=== PATIENT | female | born 1970 | race Caucasian/White ===

== ENCOUNTER 2022-01-26 10:15 | Outpatient (CLI) | payer OTHER, SELFPAY ==
[2022-01-26 11:27] LABS: Absolute Lymphocyte Count 1.04 X10^3/uL (0.83-4.51); Absolute Neutrophil Count 1.4 X10^3/uL (2.0-7.7); Basophil# 0.01 X10^3/uL; Basophil% 0.4 % (0-1); Eosinophil# 0.03 X10^3/uL; Eosinophils% 1.1 % (0-5); Hemoglobin 10.4 g/dL (12.0-15.0); Lymphocyte # 1.04 X10^3/ul (0.83-4.51); Lymphocyte % 38.4 % (19-41); Mean Corp Hgb Conc 33.5 g/dL (32-36); Mean Corpuscular Hgb 32.1 pg (27.0-32.0); Mean Corpuscular Volume 95.7 fL (81-99); Mean Platelet Vol. 11.7 fl (6.2-12.0); Monocyte# 0.18 X10^3/uL; Monocyte% 6.6 % (0-10); NRBC Flagged by Analyzer 0 % (0-5); Neutrophil # 1.44 X10^3/uL (2.7-7.7); Neutrophil % 53.1 % (47-70); POSITIVE COUNT YES; Platelet Count 54 K/mm3 (150-450); RBC Distribution Width CV 14.6 % (11.6-14.6); RBC Distribution Width SD 51.3 fl (35.1-43.9); Red Blood Count 3.24 M/mm3 (4.2-5.4); White Blood Count 2.7 K/mm3 (4.4-11.0)
[2022-01-26 11:47] LABS: Differential Indicated SCAN CRITERIA MET
[2022-01-26 11:57] LABS: ALB/GLOB Ratio 0.8 RATIO (0.9-2.4); AST(SGOT) 40 U/L (15-37); Alanine Aminotransfer ALT/SGPT 29 U/L (13-56); Albumin, Serum 3.5 g/dL (3.2-5.0); Alkaline Phosphatase 65 U/L (45-117); Anion Gap 5 (5-15); BUN 11 mg/dL (7-18); BUN/Creat Ratio 18.4 RATIO (10-20); CRP 5.48 mg/L (0.0-3.0); Calcium,Total 9.9 mg/dL (8.5-10.1); Chloride 111 mmol/L (98-107); EST Glomerular Filtration Rate 112 mL/min (>60); Est Glom Filt Rate - Afr Amer 136 mL/min (>60); Ferritin 197 ng/mL (8-252); Globulin 4.2 g/dL (2.2-4.2); Glucose 100 mg/dL (74-106); LDH 143 U/L (84-246); Platelet Estimate MOD DEC (ADEQ); Protein, Total 7.7 g/dL (6.4-8.2); Sodium Level 140 mmol/L (136-145)
[2022-01-26 12:23] LABS: HIV - WCH Non-Reactive (Nonreactive)
[2022-01-27 15:08] LABS: Anti-Centromere B Ab <0.2 AI (0.0-0.9); Anti-Chromatin <0.2 AI (0.0-0.9); Anti-Jo <0.2 AI (0.0-0.9); Anti-Scleroderma-70 AB <0.2 AI (0.0-0.9); RNP Ab <0.2 AI (0.0-0.9); SJOGREN'S Anti-SS-A test < 0.2 AI (0.0-0.9); SJOGREN'S Anti-SS-B test < 0.2 AI (0.0-0.9); Smith Ab <0.2 AI (0.0-0.9)
[2022-01-28 17:21] LABS: Anti-Mitochondrial AB <20.0 Units (0.0-20.0); Anti-dsDNA Ab 2 IU/mL (0-9)
[2022-01-30 08:10] LABS: Angiotensin Convert Enzyme 76 U/L (14-82); Ceruloplasmin 22.9 mg/dL (19.0-39.0); Cytoplasmic Ab (C-ANCA) 1:20 titer (Neg:<1:20); HEPATITIS B SURFACE AG Negative (Negative); Hepatitis A IgM Antibody Negative (Negative); Hepatitis B Core AB IgM Negative (Negative)
[2022-01-30 13:17] LABS: AFP, Tumor Marker 2.7 ng/mL (0.0-9.2); Anti-Smooth Muscle ABS 10 Units (0-19); Copper, Serum or Plasma 113 ug/dL (80-158); Haptoglobin 30 mg/dL (33-346); Hep C Antibodies 0.1 s/co ratio (0.0-0.9); Perinuclear Ab (P-ANCA) <1:20 titer (Neg:<1:20)
== END 2022-01-26 23:59 | disposition home or self-care (01) ==
LOC: LAB 10:24
PROVIDERS: Referring Provider Internal Medicine Gastroenterology; Visit Provider Internal Medicine Gastroenterology
DX: K76.0 Fatty (change of) liver, not elsewhere classified (principal)
CPT/HCPCS: 36415; 80053; 80074; 82105; 82140; 82164; 82390; 82525; 82728; 83010; 83036; 83516; 83615; 85025; 86140; 86225; 86235; 86256; 86703

== ENCOUNTER → 2022-03-05 | Outpatient (CLI) | payer OTHER, SELFPAY ==
[2022-03-05] VITALS (15 sets, daily range): BP systolic 97–155; BP diastolic 69–104; PULSE 73–106; RESP 12–22; TEMP 36.7; O2SAT 94–99; BMI 19.9
--- NOTE | 2022-03-05 08:12 | CT_ITS ---
PROCEDURE: CT-guided percutaneous liver biopsy. CLINICAL HISTORY: Female, 52 years old. cirrhosis SEDATION: VERSED: 2 mg and FENTANYL 100 mcg intravenous. 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 COMPLICATIONS: None PT-PTT Levels Checked: Yes TECHNIQUE: The procedure, risks, alternatives and complications were explained to the patient and written informed consent was obtained. Patient oriented dose modulation technique utilized. Patient was positioned supine on the CT table. A timeout procedure was obtained. Contiguous axial CT scanner images of the liver were obtained biopsy of the right lobe of the liver was decided after which the access tract was identified. Access site was marked on the patient''s skin after which the overlying skin was prepared in standard, sterile fashion. The skin was anesthetized with 2% lidocaine and a small skin incision was made. Under CT fluoroscopic guidance a 17-gauge coaxial introducer needle was intermittently advanced into the right lobe of the liver. An 18 gauge coaxial core biopsy needle was then inserted through the needle and three core biopsy specimens were obtained, placed in formalin and sent to the lab for analysis. Gelfoam embolization of the biopsy site and access tract was performed after which the access needle was removed and sterile dressing was applied. Follow-up evaluation demonstrates no evidence of complications. The patient tolerated the procedure well with no immediate complications and was transferred to recovery in stable condition. CT/Biopsy/Inj or Needle Placement IMPRESSION: Technically successful percutaneous CT guided liver biopsy, [id number] core biopsy specimens obtained and sent to lab for analysis. Electronically Signed: Andres Sandy MD at 12:13 EDT ,
[2022-03-05 08:17] LABS: Absolute Lymphocyte Count 0.92 X10^3/uL (0.83-4.51); Absolute Neutrophil Count 1.5 X10^3/uL (2.0-7.7); Basophil# 0.01 X10^3/uL; Basophil% 0.4 % (0-1); Eosinophil# 0.04 X10^3/uL; Eosinophils% 1.5 % (0-5); Hematocrit 32.8 % (37-47); Hemoglobin 11.3 g/dL (12.0-15.0); Lymphocyte # 0.92 X10^3/ul (0.83-4.51); Lymphocyte % 35.2 % (19-41); Mean Corp Hgb Conc 34.5 g/dL (32-36); Mean Corpuscular Hgb 31.7 pg (27.0-32.0); Mean Corpuscular Volume 92.1 fL (81-99); Mean Platelet Vol. 12.3 fl (6.2-12.0); Monocyte# 0.14 X10^3/uL; Monocyte% 5.4 % (0-10); NRBC Flagged by Analyzer 0 % (0-5); Neutrophil # 1.48 X10^3/uL (2.7-7.7); Neutrophil % 56.7 % (47-70); POSITIVE COUNT YES; Platelet Count 59 K/mm3 (150-450); RBC Distribution Width CV 14.6 % (11.6-14.6); RBC Distribution Width SD 49.3 fl (35.1-43.9); Red Blood Count 3.56 M/mm3 (4.2-5.4); White Blood Count 2.6 K/mm3 (4.4-11.0)
[2022-03-05 08:21] LABS: Differential Indicated SCAN CRITERIA MET
[2022-03-05 08:22] LABS: International Normalized Ratio 1.3; Prothrombin Time (Protime)PT. 16.2 SECONDS (11.7-14.9)
[2022-03-05 08:23] LABS: Partial Thromboplast Time 38.7 Seconds (24.1-36.2)
[2022-03-05 08:37] LABS: ALB/GLOB Ratio 0.8 RATIO (0.9-2.4); AST(SGOT) 45 U/L (15-37); Alanine Aminotransfer ALT/SGPT 36 U/L (13-56); Albumin, Serum 3.6 g/dL (3.2-5.0); Alkaline Phosphatase 85 U/L (45-117); Anion Gap 5 (5-15); BUN 11 mg/dL (7-18); BUN/Creat Ratio 18.1 RATIO (10-20); Calcium,Total 9.6 mg/dL (8.5-10.1); Chloride 111 mmol/L (98-107); Creatinine, Serum 0.61 mg/dL (0.55-1.02); EST Glomerular Filtration Rate 110 mL/min (>60); Est Glom Filt Rate - Afr Amer 133 mL/min (>60); Globulin 4.8 g/dL (2.2-4.2); Glucose 90 mg/dL (74-106); Potassium 4.1 mmol/L (3.5-5.1); Protein, Total 8.4 g/dL (6.4-8.2); Sodium Level 139 mmol/L (136-145)
[2022-03-05 08:44] LABS: Platelet Estimate MKD DEC (ADEQ)
[2022-03-05] MEDS: fentaNYL 100 MCG/2 ML Ampul IV ×2 (09:15→09:30)
[2022-03-05] MEDS: Midazolam 2 MG/2 ML Syringe IV ×2 (09:15→09:30)
[2022-03-05] MEDS: Lidocaine 2% (20 ml mdv) 20 ML Vial INFILT (09:33)
--- NOTE | 2022-03-05 09:35 | LIV_PTH ---
PATIENT: DOMINIC JIMENEZ LOC: [place] U#:[id number] AGE/SX: 52/F ROOM: RE03/05/[address]: Dr. Leodan Sarabia DO : 1970 BED: DIS: 03/05/2022 SPEC #: [id number] RECD: 03/05/22 10:17 STATUS: JESIKA REKee #: [id number] ORACIO: 03/05/22 09:[address]: Leodan Sarabia DEPT: SURGICAL PATHOLOGY RECD BY: Manju Braxton Tissues: Liver, NOS Procedures: PAS with Diastase (control) Trichrome (control) Special Stain Group II PAS Stain (control) Surgery Specimen Level V Retic (control) Iron Stain (control) HEADER OPERATION: CT-guided liver biopsy PRE-OP DIAGNOSIS: Cirrhosis TISSUE SUBMITTED: Liver 18-gauge core x3 MICROSCOPIC DIAGNOSIS Liver, CT-guided core biopsy: Consistent with cirrhosis. See microscopic description. SJ:lucia 03/06/2022 COMMENT Case has been reviewed in consultation with Dr. Gutierres who concurs with the above diagnosis. IDC:AM MICROSCOPIC DESCRIPTION Slides are reviewed. The specimen shows liver parenchymal tissue with distortion of the normal lobular architecture into multiple nodules divided by fibrous septae. Hepatocytes show focal minimal macrovesicular steatosis and reactive changes. Significant inflammation is not seen in hepatocyte nodules. Portal area shows mild to moderate chronic inflammation consisting predominantly of lymphocytes. Vascular dilatation is also noted in the fibrous septae. Interface inflammation is also noted. Iron stain shows focal mild iron deposition in the hepatocytes (1-2+). Trichrome and reticulin stains highlights the fibrous septae in between the hepatocyte nodules. PAS stain with and without diastase do not show any abnormal accumulation of protein. All stains are performed with appropriate matched controls. GROSS DESCRIPTION Received in fixative is one container labeled with the patient's name and designated liver biopsy. The specimen consists of three elongated fragments of ren soft tissue each measuring 2 cm in length and 0.1 cm in diameter. The specimen is totally submitted in one cassette. / SJ:lucia 03/05/2022 TC:5 CPT: 89299, 32689 x5 ADDENDUM ADDENDUM ADDENDUM ADDENDUM ADDENDUM ADDENDUM ADDENDUM ADDENDUM ADDENDUM ADDENDUM 05/09/2022 10:20 ADDENDUM 05/09/2022 10:20 ADDENDUM 05/09/2022 10:20 ADDENDUM 05/09/2022 10:20 ADDENDUM 05/09/2022 10:20 This addendum is added to incorporate an outside pathology consultation report. The case was examined at [facility] (#[id number]) and the following diagnosis was rendered. Liver, CT-guided core biopsy: Cirrhosis. Please see complete above mentioned consultation report in EMR
== END | disposition home or self-care (01) ==
LOC: CT 07:52
PROVIDERS: Referring Provider Internal Medicine Gastroenterology; Visit Provider Internal Medicine Gastroenterology
DX: K74.60 Unspecified cirrhosis of liver (principal); K70.10 Alcoholic hepatitis without ascites
CPT/HCPCS: 47000; 36415; 77012; 80053; 82140; 85025; 85610; 85730; 88307; 88313; 99156; 99157; J7040; A4216

== ENCOUNTER → 2022-03-23 | Outpatient (CLI) | payer OTHER, SELFPAY ==
[2022-03-23 15:37] LABS: Absolute Lymphocyte Count 0.93 X10^3/uL (0.83-4.51); Absolute Neutrophil Count 1.6 X10^3/uL (2.0-7.7); Basophil# 0.01 X10^3/uL; Basophil% 0.4 % (0-1); Eosinophil# 0.03 X10^3/uL; Eosinophils% 1.1 % (0-5); Hematocrit 30.2 % (37-47); Lymphocyte # 0.93 X10^3/ul (0.83-4.51); Lymphocyte % 33.3 % (19-41); Mean Corp Hgb Conc 33.1 g/dL (32-36); Mean Corpuscular Hgb 32.1 pg (27.0-32.0); Mean Corpuscular Volume 96.8 fL (81-99); Mean Platelet Vol. 10.7 fl (6.2-12.0); Monocyte# 0.18 X10^3/uL; Monocyte% 6.5 % (0-10); NRBC Flagged by Analyzer 0 % (0-5); Neutrophil # 1.64 X10^3/uL (2.7-7.7); Neutrophil % 58.7 % (47-70); POSITIVE COUNT YES; Platelet Count 68 K/mm3 (150-450); RBC Distribution Width CV 14.8 % (11.6-14.6); RBC Distribution Width SD 52.6 fl (35.1-43.9); Red Blood Count 3.12 M/mm3 (4.2-5.4); White Blood Count 2.8 K/mm3 (4.4-11.0)
[2022-03-23 15:48] LABS: International Normalized Ratio 1.5; Prothrombin Time (Protime)PT. 17.5 SECONDS (11.7-14.9)
[2022-03-23 16:00] LABS: ALB/GLOB Ratio 0.8 RATIO (0.9-2.4); AST(SGOT) 42 U/L (15-37); Alanine Aminotransfer ALT/SGPT 33 U/L (13-56); Albumin, Serum 3.3 g/dL (3.2-5.0); Alkaline Phosphatase 90 U/L (45-117); Anion Gap 6 (5-15); BUN 12 mg/dL (7-18); BUN/Creat Ratio 15.9 RATIO (10-20); CRP 4.69 mg/L (0.0-3.0); Calcium,Total 8.5 mg/dL (8.5-10.1); Chloride 110 mmol/L (98-107); Creatinine, Serum 0.76 mg/dL (0.55-1.02); EST Glomerular Filtration Rate 86 mL/min (>60); Est Glom Filt Rate - Afr Amer 104 mL/min (>60); Globulin 4.1 g/dL (2.2-4.2); Glucose 129 mg/dL (74-106); LDH 148 U/L (84-246); Potassium 4.1 mmol/L (3.5-5.1); Protein, Total 7.4 g/dL (6.4-8.2); Sodium Level 139 mmol/L (136-145)
[2022-03-23 16:34] LABS: Differential Indicated SCAN CRITERIA MET
[2022-03-23 16:41] LABS: Differential Comment SCANNED; Erythrocyte Sedimentation Rate 27 mm/hr (0-30)
== END | disposition home or self-care (01) ==
PROVIDERS: Referring Provider Internal Medicine Gastroenterology; Visit Provider Internal Medicine Gastroenterology
DX: K74.60 Unspecified cirrhosis of liver (principal); E51.2 Wernicke's encephalopathy; K70.10 Alcoholic hepatitis without ascites
CPT/HCPCS: 36415; 80053; 82140; 83615; 85025; 85610; 85652; 86140

== ENCOUNTER 2022-04-05 06:20 | Day surgery (SDC) | payer OTHER, SELFPAY ==
--- NOTE | 2022-04-05 | EGD_PTH ---
PATIENT: DOMINIC JIMENEZ LOC: [place] U#:[id number] AGE/SX: 52/F ROOM: RE04/05/[address]: Dr. Leodan Sarabia DO : 1970 BED: DIS: 04/05/2022 SPEC #: [id number] RECD: 04/05/22 12:07 STATUS: JESIKA MICHAEL #: [id number] ORACIO: 04/05/22 00:[address]: Leodan Sarabia DEPT: SURGICAL PATHOLOGY RECD BY: Patrice Up Tissues: Duodenum, NOS Procedures: Surgery Specimen Level IV HEADER OPERATION: [place] [place] biopsy PRE-OP DIAGNOSIS: Cirrhosis of liver, Wernicke?s encephalopathy, alcoholic hepatitis TISSUE SUBMITTED: Duodenal ulcer biopsy MICROSCOPIC DIAGNOSIS Duodenal ulcer, biopsy: Chronic active duodenitis. AM:lucia 04/06/2022 MICROSCOPIC DESCRIPTION Slides are reviewed. GROSS DESCRIPTION Received in fixative is one container labeled with the patient's name and designated duodenal biopsy ulcer. The specimen consists of multiple irregular fragments of light ren soft tissue that in aggregate measure 00.5 x 0.5 x 0.1 cm. The specimen is totally submitted in one cassette. / SJ:lucia 04/05/2022 TC:2 CPT: 92138
--- NOTE | 2022-04-05 06:32 | PCM.HP.BLA ---
History and Physical Date of Admission: 04/05/22 BREANNA JIMENEZ, is a 52 F who presents to the office today for Follow up visit. Breanna established with this clinic 01.26.22 with referral from her nursing facility, [facility]. US of her liver abdomen performed with findings as noted below. During the summer of 2020 Breanna began having some motor difficulty most notably with a fall. After this she began having sleep changes and was diagnosed with COVID . She then had a sudden change in cognition where she became irritable, aggressive with severe sleep changes and jaundice. With this cognition change she was then hospitalized with suspected UTI causing sepsis. She had an ultrasound at one point that mentioned fatty liver disease. During hospitalization she became unable to walk. She was treated symptomatically by psychiatric services and was then discharged to a SNF. During this stay her ammonia levels were noted to be in the 50?s or higher and was treated with lactulose. Breanna admits to a history of alcoholism and she has not had another drink in about five months. US abd 12.16.21 finding liver with increased parenchymal echotexture. Ascites in RUQ and midline. Remaining exam without remark. US RUQ and elastography 02.05.22 found liver to measure 19cm with coarse echotexture and increased echogenicity; liver stiffness 17 kPa. Cholelithiasis and sludge present in gallbladder. No ascites noted. Liver biopsy 03.05.22 with findings consistent with cirrhosis with distortion of lobular architecture into multiple nodules divided by fibrous septae; hepatocytes with minimal macrovesicular steatosis and reactive changes; no significant inflammation in hepatocyte nodules; portal area shows mild/moderate chronic inflammation predominantly of lymphocytes; interface inflammation noted. Breanna is scheduled for an EGD 04.05.22. MELD 03.23.22 12 Plan last visit 01.26.22: Fatty liver ? biochemical workup. Likely alcoholic liver disease. Recommend ultrasound and elastography. Alcoholic hepatitis ? biochemical workup Wernickes encephalopathy ? start b12 and folic acid. Since last visit she reports that on rainy days she has more joint pain and has somewhat more difficulty with walking. She has not been able to participate in PT recently and feels that has had a negative effect on her balance. Reports that she has been having some uncontrollable movements in her lower legs, like a twitch; she is seeing neurology next week. Reports easy fatigue. Reports good sleep during the night. She is using trazodone, Cymbalta and melatonin in the evenings. Denies confusion and behavior changes at this time. ROS Const Constitutional: No fatigue, malaise, night sweats, weight change, sleep problems, abnormal sleep pattern or change in appetite ENT ENT: No difficulty swallowing, hoarseness or sore throat Cardio Cardiology: No chest pain at rest Gastro GI: No abdominal pain, belching, bloating, change in bowel habits, change in stool character, coffee ground emesis, constipation, cramping, diarrhea, heartburn, difficulty swallowing, feeling full early, excessive flatus, incontinent of stools, Vomiting blood/hematemesis, Blood in stool, loose stools, Black,tarry stools, nausea/dyspepsia, pain with swallowing, vomiting or other Skin Skin: No yellowing of the eye or itchy eyes Neuro Neurology: No behavioral changes Psych Psychiatric: No abnormal sleep pattern, No anxiety, No behavioral changes, No change in appetite and No depression Endo Endocrine: No fatigue or weight change Aller/Imm Allergy/Immunologic: No itchy eyes Warren/Lymp Hematologic/Lymphatic: No easy bleeding or easy bruising Exam Const General: cooperative and comfortable Nutritional Appearance: average body habitus and well nourished HENID Head: normal to inspection Ears: hearing grossly normal bilaterally Nose: external nose normal Face and sinus: normal facial exam Mouth: oral mucosae normal Throat: posterior oropharynx normal Eyes General: appearance normal, both eyes and all related structures Neck Neck: normal visual inspection Chest Chest palpation & inspection: normal inspection of the chest and normal palpation of entire chest wall Resp Effort & Inspection: normal respiratory effort Auscultation: Bilateral: Clear to Auscultation Cardio Palpation: normal PMI Rate: regular rate Rhythm: regular rhythm GI Inspection: normal to inspection Auscultation: normal bowel sounds Percussion: normal to percussion Palpation: no hepatosplenomegaly Skin General: no rashes or lesions noted Neuro General: patient alert Extrem General: normal to inspection Psych Affect: normal affect Quality Reporting Tobacco Screening ([facility] 138) Smoking Status: Never smoker Assessment and Plan Assessment and Plan (1) Cirrhosis of liver: Status: Acute Orders: Orders: Comprehensive Metabolic Profil 03/23/22 CRP 03/23/22 LDH 03/23/22 Prothrombin Time w/INR 03/23/22 CBC W/Diff, Automated 03/23/22 Erythrocyte Sed Rate 03/23/22 Miscellaneous Lab Procedure 03/23/22 Ammonia 03/23/22 Plan - Dr. Alcocer Friend, DO: At this time her meld is 12. She says that she has been taking up to 2 g of Tylenol per day for her pain that she is experiencing regarding her neuropathy in her extremities. She was started on gabapentin which she has been taking 600 mg twice a day. I instructed her that she cannot take any acetaminophen products because she still has decompensated liver disease. She is going to see the neurologist regarding her pain regarding neuropathy in the near future. Right now since she has been free of alcohol for about 4 months that we have documented I would like to get her stable prior to her being seen by liver transplant center. Her liver biopsy does show cirrhosis but it also shows some interface hepatitis. Her antismooth muscle antibody was negative as well as her AUSTYN. We will order an antiliver kidney microsomal antibody as well as an IgG level. Continue lactulose she has a scheduled upper endoscopy to see if she has any varices or portal hypertension secondary to cirrhosis. At that time we may recommend beta-chris therapy and capsule endoscopy to rule out varices in the small bowel. Continue zinc supplements. Check a copper level and selenium as well as magnesium and phosphorus. (2) Wernickes encephalopathy: Status: Acute Orders: Orders: Comprehensive Metabolic Profil 03/23/22 CRP 03/23/22 LDH 03/23/22 Prothrombin Time w/INR 03/23/22 CBC W/Diff, Automated 03/23/22 Erythrocyte Sed Rate 03/23/22 Miscellaneous Lab Procedure 03/23/22 Ammonia 03/23/22 Plan - Dr. Alcocer Friend, DO: She is seeing neurology. She is taking B12 and folic acid as well as be supplement. (3) Alcoholic hepatitis: Status: Acute Orders: Orders: Comprehensive Metabolic Profil 03/23/22 CRP 03/23/22 LDH 03/23/22 Prothrombin Time w/INR 03/23/22 CBC W/Diff, Automated 03/23/22 Erythrocyte Sed Rate 03/23/22 Miscellaneous Lab Procedure 03/23/22 Ammonia 03/23/22 Plan - Dr. Alcocer Friend, DO: I have re-examined the patient. There are no clinical changes since date of exam.
[2022-04-05 06:40] VITALS: BP 121/72; PULSE 90; RESP 16; TEMP 36.6; O2SAT 100; BMI 20.4
[2022-04-05] MEDS: Lactated Ringers 1,000 ML 15 ML IV (06:43)
[2022-04-05 07:20] VITALS: BP 121/72; BP 135/67; PULSE 87; RESP 16; TEMP 36.6; O2SAT 96
[2022-04-05 07:25] VITALS: BP 108/64; BP 121/72; PULSE 87; RESP 16; O2SAT 93
--- NOTE | 2022-04-05 07:26 | OP.EGD_ITS ---
Patient Name: Breanna Marino Procedure Date: 04/05/2022 6:59 AM Date of : 1970 Age: 52 Procedure: Upper GI endoscopy Indications: Cirrhosis with suspected esophageal varices Providers: Leodan Sarabia DO Medicines: Monitored Anesthesia Care Patient Profile: This is a 52 year old female. Refer to note in patient chart for documentation of history and physical. Patient has symptoms. Complications: No immediate complications. Procedure: Pre-Anesthesia Assessment: - Prior to the procedure, a History and Physical was performed, and patient medications and allergies were reviewed. The risks and benefits of the procedure and the sedation options and risks were discussed with the patient. All questions were answered and informed consent was obtained. Patient identification and proposed procedure were verified by the physician in the pre-procedure area. Mental Status Examination: alert and oriented. Airway Examination: normal oropharyngeal airway and neck mobility. Respiratory Examination: clear to auscultation. CV Examination: normal. Prophylactic Antibiotics: The patient does not require prophylactic antibiotics. Prior Anticoagulants: The patient has taken no previous anticoagulant or antiplatelet agents. ASA Grade Assessment: II - A patient with mild systemic disease. After reviewing the risks and benefits, the patient was deemed in satisfactory condition to undergo the procedure. The anesthesia plan was to use moderate sedation / analgesia (conscious sedation). Immediately prior to administration of medications, the patient was re-assessed for adequacy to receive sedatives. The heart rate, respiratory rate, oxygen saturations, blood pressure, adequacy of pulmonary ventilation, and response to care were monitored throughout the procedure. The physical status of the patient was re-assessed after the procedure. After obtaining informed consent, the endoscope was passed under direct vision. Throughout the procedure, the patient's blood pressure, pulse, and oxygen saturations were monitored continuously. The Endoscope was introduced through the mouth, and advanced to the second part of duodenum. The upper GI endoscopy was accomplished without difficulty. The patient tolerated the procedure well. Scope In: 7:09:44 AM Scope Out: 7:15:08 AM Total Procedure Duration Time 0 hours 5 minutes 24 seconds Findings: Grade I varices were found in the lower third of the esophagus. They were 5 mm in largest diameter. Severe portal hypertensive gastropathy was found in the entire examined stomach. One non-bleeding cratered duodenal ulcer with no stigmata of bleeding was found in the duodenal bulb. The lesion was 4 mm in largest dimension. Biopsies were taken with a cold forceps for histology. Verification of patient identification for the specimen was done. Estimated blood loss was minimal. Impression: - Grade I esophageal varices. - Portal hypertensive gastropathy. - One non-bleeding duodenal ulcer with no stigmata of bleeding. Biopsied. Recommendation: - Discharge patient to home. - Resume previous diet. - Continue present medications. - Use Protonix (pantoprazole) 40 mg PO BID. - Use sucralfate tablets 1 gram PO BID. - Use nadolol 20 mg a day Procedure Code(s): --- Professional --- 55599, Esophagogastroduodenoscopy, flexible, transoral; with biopsy, single or multiple CPT copyright 2017 [employer]. All rights reserved. The codes documented in this report are preliminary and upon client sales and service officer review may be revised to meet current compliance requirements. Leodan Sarabia DO 04/05/2022 7:25:05 AM This report has been signed electronically. Number of Addenda: 1 Note Initiated On: 04/05/2022 6:59 AM Addendum Number: 1 Addendum Date: 08/17/2022 6:17:24 AM MAC was used as sedation for this procedure. Leodan Sarabia DO 08/17/2022 6:17:28 AM This report has been signed electronically.
--- NOTE | 2022-04-05 07:26 | OP.CCLET_ITS ---
08/17/2022 Lady Mahmood Re : Upper GI endoscopy procedure for Breanna Marino Dear Timoteo This procedure was performed on March. My impressions and recommendations are as follows: Impressions : - Grade I esophageal varices. - Portal hypertensive gastropathy. - One non-bleeding duodenal ulcer with no stigmata of bleeding. Biopsied. Recommendations : - Discharge patient to home. - Resume previous diet. - Continue present medications. - Use Protonix (pantoprazole) 40 mg PO BID. - Use sucralfate tablets 1 gram PO BID. - Use nadolol 20 mg a day My findings are described in the full procedure note, which is enclosed. If I can be of further assistance, please feel free to contact me at . Sincerely, Leodan Friend, 04/05/2022 7:25:05 AM This report has been signed electronically.
[2022-04-05 07:30] VITALS: BP 121/72; BP 93/61; PULSE 87; RESP 16; O2SAT 98
[2022-04-05 07:35] VITALS: BP 110/70; BP 121/72; PULSE 85; RESP 16; TEMP 36.8; O2SAT 98
[2022-04-05 07:47] VITALS: BP 121/72
== END 2022-04-05 08:12 | disposition skilled nursing facility (03) ==
LOC: EN 06:22 → AC 06:24
PROVIDERS: Referring Provider Internal Medicine Gastroenterology; Visit Provider Internal Medicine Gastroenterology
PROC: 0DJ08ZZ Inspection of Upper Intestinal Tract, Via Natural or Artificial Opening Endoscopic (ICD-10-PCS; CPT 43235; principal; 2022-04-05 06:55)
DX: K70.30 Alcoholic cirrhosis of liver without ascites (principal); K76.6 Portal hypertension; I85.10 Secondary esophageal varices without bleeding; K29.80 Duodenitis without bleeding; K70.10 Alcoholic hepatitis without ascites; K31.89 Other diseases of stomach and duodenum; K26.9 Duodenal ulcer, unspecified as acute or chronic, without hemorrhage or perforation; E51.2 Wernicke's encephalopathy; Z79.899 Other long term (current) drug therapy; Z86.16 Personal history of COVID-19
CPT/HCPCS: 43239; 88305; J7120; J2405

== ENCOUNTER → 2022-06-04 | Outpatient (CLI) | payer OTHER, SELFPAY ==
[2022-06-04 12:08] LABS: Absolute Lymphocyte Count 1.02 X10^3/uL (0.83-4.51); Absolute Neutrophil Count 1.8 X10^3/uL (2.0-7.7); Basophil# 0.01 X10^3/uL; Basophil% 0.3 % (0-1); Eosinophil# 0.06 X10^3/uL; Eosinophils% 1.9 % (0-5); Hematocrit 33.8 % (37-47); Hemoglobin 10.8 g/dL (12.0-15.0); Lymphocyte # 1.02 X10^3/ul (0.83-4.51); Lymphocyte % 32.5 % (19-41); Mean Corpuscular Hgb 30.3 pg (27.0-32.0); Mean Corpuscular Volume 94.9 fL (81-99); Mean Platelet Vol. 11.9 fl (6.2-12.0); Monocyte# 0.28 X10^3/uL; Monocyte% 8.9 % (0-10); NRBC Flagged by Analyzer 0 % (0-5); Neutrophil # 1.75 X10^3/uL (2.7-7.7); Neutrophil % 55.8 % (47-70); POSITIVE COUNT YES; Platelet Count 59 K/mm3 (150-450); RBC Distribution Width CV 14.3 % (11.6-14.6); RBC Distribution Width SD 49.6 fl (35.1-43.9); Red Blood Count 3.56 M/mm3 (4.2-5.4); White Blood Count 3.1 K/mm3 (4.4-11.0)
[2022-06-04 12:10] LABS: International Normalized Ratio 1.4; Prothrombin Time (Protime)PT. 16.5 SECONDS (11.7-14.9)
[2022-06-04 12:47] LABS: ALB/GLOB Ratio 0.8 RATIO (0.9-2.4); AST(SGOT) 40 U/L (15-37); Alanine Aminotransfer ALT/SGPT 33 U/L (13-56); Albumin, Serum 3.2 g/dL (3.2-5.0); Alkaline Phosphatase 98 U/L (45-117); Anion Gap 6 (5-15); BUN 14 mg/dL (7-18); BUN/Creat Ratio 23.6 RATIO (10-20); Calcium,Total 8.9 mg/dL (8.5-10.1); Chloride 109 mmol/L (98-107); Creatinine, Serum 0.59 mg/dL (0.55-1.02); EST Glomerular Filtration Rate 113 mL/min (>60); Est Glom Filt Rate - Afr Amer 137 mL/min (>60); Globulin 4.2 g/dL (2.2-4.2); Glucose 113 mg/dL (74-106); Potassium 4.1 mmol/L (3.5-5.1); Protein, Total 7.4 g/dL (6.4-8.2); Sodium Level 139 mmol/L (136-145)
== END | disposition home or self-care (01) ==
PROVIDERS: Visit Provider Internal Medicine Gastroenterology
DX: K74.60 Unspecified cirrhosis of liver (principal)
CPT/HCPCS: 36415; 80053; 85025; 85610

== ENCOUNTER 2022-06-17 19:44 | Emergency (ER) | payer OTHER, SELFPAY ==
[2022-06-17 19:45] VITALS: BP 126/87; PULSE 84; RESP 16; TEMP 36.6; O2SAT 97; BMI 22.8
--- NOTE | 2022-06-17 20:10 | EX.ED.DYSGE1 ---
HPI History of Present Illness Chief Complaint: Other, Pain/Inj Informant: patient Onset/Context/Timing Onset: Today Context: Gradual Onset Timing: Continuous Quality: Stabbing Location: Right foot Worsened by: Nothing Relieved by: Nothing Narrative Narrative: Patient presents with bilateral foot pain that began today. Patient states she has neuropathy in her feet. Patient states her right foot is worse. Patient states she did slip in the bathtub the other day and hit her foot against the edge of the tub. Patient describes her pain as stabbing. Patient states nothing makes it better nothing makes it worse. Patient denies any fevers or chills. Patient states she did take a gabapentin at home which normally helps with her pain. Patient states this did not help today. Patient denies any paresthesias or weakness. [facility] Medical History (Updated 06/17/22 @ 21:[address] Gustavo Snyder, ) Abnormal liver function test Alcohol use Alcoholic hepatitis Anemia Anxiety Cardiology follow-up encounter Gastric reflux History of Clostridium difficile infection History of edema History of pain when walking Leg cramps Migraine headache Neuropathy Non-smoker Post-menopausal Splenomegaly Syncope Walker as ambulation aid Wears glasses Wernickes encephalopathy Home Medications gabapentin 300 mg tablet 300 mg PO TID 03/05/22 [History Last Taken 04/05/22 05:00] melatonin 10 mg tablet 10 mg PO QHS 03/05/22 [History Last Taken Unknown] ascorbic acid (vitamin C) 500 mg chewable tablet (Vitamin C) 500 mg PO DAILY 04/04/22 [History Last Taken Unknown] cholecalciferol (vitamin D3) 125 mcg (5,000 unit) tablet (Vitamin D3) 125 mcg PO DAILY 04/04/22 [History Last Taken Unknown] duloxetine 60 mg capsule,delayed release sprinkle 60 mg PO QHS 04/04/22 [History Last Taken Unknown] folic acid 1 mg tablet 1 mg PO DAILY 04/04/22 [History Last Taken Unknown] multivitamin 1 cap PO DAILY 04/04/22 [History Last Taken Unknown] thiamine HCl (vitamin B1) 100 mg tablet (Vitamin B-1) 100 mg PO DAILY 04/04/22 [History Last Taken Unknown] trazodone 50 mg tablet 25 mg PO QHS 04/04/22 [History Last Taken Unknown] pantoprazole 40 mg tablet,delayed release 40 mg PO BID #60 tabs 04/06/22 [Rx Last Taken Unknown] nadolol 20 mg tablet 20 mg PO ONCE #30 tabs 06/04/22 [Rx Last Taken Unknown] lactulose 10 gram/15 mL (15 mL) oral solution 15 ml PO TID #750 mL 06/11/22 [Rx Last Taken Unknown] Allergy/AdvReac Type Severity Reaction Status Date / Time No Known Allergies Allergy Verified 06/04/22 10:46 Surgical History History of liver biopsy History of tonsillectomy and adenoidectomy Social History Smoking Status: Never smoker alcohol intake: former year quit: 2020 substance use type: does not use ROS ROS ED Constitutional Constitutional ED: Denies chills or fever(s) Eyes Eyes: Denies blurry vision or change in vision ENT ENT ED: Denies rhinorrhea or sore throat Cardiovascular Cardiovascular: Denies chest pain or palpitations Respiratory/Chest Respiratory/Chest: Denies cough or dyspnea Gastrointestinal Gastrointestinal: Denies nausea or vomiting Genitourinary Genitourinary ED: Denies dysuria or hematuria Musculoskeletal Musculoskeletal: Denies back pain or neck pain Integumentary Denies abscess or rash Neurologic Neurologic: Reports headache(s); Denies weakness Allergic/Immunologic Allergic/Immunologic ED: Denies mouth swelling or urticaria EXAM Physical Exam Const Vital Signs: 06/17/22 19:45 Temperature 97.8 F Temperature Source Temporal Pulse Rate 84 Respiratory Rate 16 Blood Pressure 126/87 H Blood Pressure Mean 100 Pulse Ox 97 Oxygen Delivery Method Room Air Positive well nourished and well developed General Appearance ED: well developed and NAD HEENT Reports moist mucous membranes Neck supple and no JVD Extremity Extremity Narrative: There is tenderness over the lateral malleolus of the right foot. There is tenderness over the third fourth and fifth metatarsals. There is no edema or ecchymosis. There is no obvious deformity. Pedal pulses are equal bilateral. Sensation was intact to light touch in all digits. Capillary refill was less than 2 seconds in all digits. Range of motion was slightly limited in all motions of the right foot secondary to pain. There is no tenderness over the left foot. There is no deformity. General Extremety ED: Yes tenderness Neuro oriented x3, CN's II-XII intact bilaterally and no sensory deficits noted Sensorium / Orientation: alert Motor Exam: strength 5/5 throughout Psych mental status grossly normal MDM MDM MDM Narrative Medical decision making narrative: Patient was given a dose of morphine here. X-rays of the right foot were obtained. There are 3 views. On my interpretation, there is no acute fracture. There is no dislocation. There is no soft tissue swelling. Radiologist also interpreted the x-rays and agrees. Patient was advised of her findings. Patient was instructed to keep her foot elevated. Patient was instructed to continue her gabapentin as prescribed. Patient was instructed to follow-up with her primary care physician in 5 to 7 days. Patient understood and was agreeable with the plan. All questions were answered. Radiography Diagnostic Testing: Clinical Impression(s) from Imaging Studies Foot X-Ray 06/17/22 20:20 IMPRESSION: Early peripheral vascular atherosclerosis Electronically Signed: Sedrick Arellano DO at 21:18 EDT , Discharge Plan Triage Chief Complaint: Other, Pain/Inj ED Provider: Gustavo Snyder Dx/Rx/DC Orders Clinical Impression: Right foot sprain, Cirrhosis of liver Instructions: ED Foot Sprain Prescriptions: No Action nadolol 20 mg tablet 20 mg PO ONCE Qty: 30 1RF gabapentin 300 mg Tablet 300 mg PO TID melatonin 10 mg Tablet 10 mg PO QHS folic acid 1 mg Tablet 1 mg PO DAILY multivitamin Capsule 1 cap PO DAILY trazodone 50 mg Tablet 25 mg PO QHS thiamine HCl (vitamin B1) [Vitamin B-1] 100 mg Tablet 100 mg PO DAILY ascorbic acid (vitamin C) [Vitamin C] 500 mg Tablet,Chewable 500 mg PO DAILY cholecalciferol (vitamin D3) [Vitamin D3] 125 mcg (5,000 unit) Tablet 125 mcg PO DAILY duloxetine 60 mg Capsule, Delayed Rel Sprinkle 60 mg PO QHS pantoprazole 40 mg tablet,delayed release (DR/EC) 40 mg PO BID Qty: 60 2RF Rx Instructions: take two times a day for eight weeks then once a day lactulose 10 gram/15 mL (15 mL) solution 15 ml PO TID Qty: 750 2RF Primary Care Provider: ROBETR PEARSON Referrals: ROBERT PEARSON [Other] - 5-7 Days Disposition Disposition: Home, Self Care
[2022-06-17] MEDS: Morphine 4 MG/ML Syringe IM (20:18)
--- NOTE | 2022-06-17 20:20 | RAD_ITS ---
INDICATION: Injury/Pain EXAMINATION/TECHNIQUE: X-RAY - RIGHT XR Foot Min 3 Views 3 VIEWS COMPARISON: None. FINDINGS: SOFT TISSUES: No soft tissue swelling or gas. No radiopaque foreign body. Early peripheral vascular atherosclerosis. BONES/JOINTS: No acute fracture or malalignment. Preservation of the joint space and no degenerative bony proliferative changes. No sclerotic or destructive changes observed. RAD/Foot min 3 Views IMPRESSION: Early peripheral vascular atherosclerosis Electronically Signed: Sedrick Arellano DO at 21:18 EDT ,
== END 2022-06-17 21:38 | disposition home or self-care (01) ==
PROVIDERS: Emergency Provider Emergency Medicine; Visit Provider Emergency Medicine
DX: S93.601A Unspecified sprain of right foot, initial encounter (principal); K74.60 Unspecified cirrhosis of liver; W18.49XA Other slipping, tripping and stumbling without falling, initial encounter; W22.09XA Striking against other stationary object, initial encounter; Y99.8 Other external cause status
CPT/HCPCS: 73630; 96372; 99282

== ENCOUNTER 2022-07-13 17:08 | Inpatient (IN) | payer OTHER, SELFPAY ==
[2022-07-13] VITALS (8 sets, daily range): BP systolic 112–144; BP diastolic 65–76; PULSE 98–104; RESP 16–18; TEMP 39.2–39.6; O2SAT 95–100; BMI 22.2
--- NOTE | 2022-07-13 18:39 | EKG12_ITS ---
Test Reason : DYSRHYTHMIA Blood Pressure : / mmHG Vent. Rate : 099 BPM Atrial Rate : 099 BPM P-R Int : 130 ms QRS Dur : 080 ms QT Int : 326 ms P-R-T Axes : 039 047 056 degrees QTc Int : 418 ms Normal sinus rhythm Left ventricular hypertrophy Nonspecific ST and T wave abnormality Abnormal ECG Confirmed by LENIN HERNANDEZ, KELECHI ([id number]), editorial intern JAMISON GOODEN ([id number]) on 07/16/2022 9:42:07 AM Referred By: MARIMAR Confirmed By:BEATRIS PHELPS MD
--- NOTE | 2022-07-13 18:40 | EDS_ITS ---
HPI History of Present Illness Chief Complaint: Fever Detail of Chief Complaint: Fever and chills Informant: patient and spouse/S.O. Onset/Context/Timing Onset: Weeks (Illness started 1 week ago with upper respiratory symptoms) Context: Sudden Onset Timing: Continuous Quality: T-max 103.9 Location: Initially productive cough of green-colored sputum Current Severity: Moderate Maximum Severity: Severe Worsened by: Nothing Relieved by: Nothing Associated Symptoms Associated Symptoms: Initially green-colored sputum. 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 Patient states he has chronic diarrhea due to lactulose. She denies urologic symptoms. She denies nausea or vomiting. She denies double vision, blurred vision loss of vision. She has photophobia. She denies drainage from ears. Prior similar symptoms: Yes Recent Illness/Hospitalization: Yes [facility] Medical History Abnormal liver function test Alcohol use Alcoholic hepatitis Anemia Anxiety Cardiology follow-up encounter Gastric reflux History of Clostridium difficile infection History of edema History of pain when walking Leg cramps Migraine headache Neuropathy Non-smoker Post-menopausal Splenomegaly Syncope Walker as ambulation aid Wears glasses Wernickes encephalopathy Home Medications gabapentin 300 mg tablet 300 mg PO TID 03/05/22 [History Last Taken 04/05/22 05:00] melatonin 10 mg tablet 10 mg PO QHS 03/05/22 [History Last Taken Unknown] cholecalciferol (vitamin D3) 125 mcg (5,000 unit) tablet (Vitamin D3) 125 mcg PO DAILY 04/04/22 [History Last Taken Unknown] duloxetine 60 mg capsule,delayed release sprinkle 60 mg PO QHS 04/04/22 [History Last Taken Unknown] folic acid 1 mg tablet 1 mg PO DAILY 04/04/22 [History Last Taken Unknown] multivitamin 1 cap PO DAILY 04/04/22 [History Last Taken Unknown] thiamine HCl (vitamin B1) 100 mg tablet (Vitamin B-1) 100 mg PO DAILY 04/04/22 [History Last Taken Unknown] trazodone 50 mg tablet 25 mg PO QHS 04/04/22 [History Last Taken Unknown] pantoprazole 40 mg tablet,delayed release 40 mg PO BID #60 tabs 04/06/22 [Rx Last Taken Unknown] nadolol 20 mg tablet 20 mg PO ONCE #30 tabs 06/04/22 [Rx Last Taken Unknown] lactulose 10 gram/15 mL (15 mL) oral solution 15 ml PO TID #750 mL 07/06/22 [Rx Last Taken Unknown] Allergy/AdvReac Type Severity Reaction Status Date / Time No Known Allergies Allergy Verified 06/04/22 10:46 Surgical History History of liver biopsy History of tonsillectomy and adenoidectomy Social History (Updated 07/13/22 @ 18:[address] Esteban Alston MD) household members: spouse Smoking Status: Never smoker alcohol intake: former year quit: 2020 substance use type: does not use ROS ROS ED Constitutional Constitutional ED: Reports chills, fever(s) and sweats; Denies weight loss Eyes Eyes: Denies blurry vision, change in vision or diplopia ENT ENT ED: Reports sore throat; Denies ear pain or rhinorrhea Cardiovascular Cardiovascular: Reports palpitations; Denies chest pain, orthopnea, paroxysmal nocturnal dyspnea or racing heartbeat Respiratory/Chest Respiratory/Chest: Reports cough, dyspnea and sputum; Denies dyspnea on exertion, orthopnea or paroxysmal nocturnal dyspnea Gastrointestinal Gastrointestinal: Reports abdominal pain and nausea; Denies constipation, diarrhea, melena or vomiting Genitourinary Genitourinary ED: Denies dysuria, hematuria or urinary frequency Musculoskeletal Musculoskeletal: Reports arthralgias and myalgias; Denies back pain or neck pain Integumentary Denies abscess, Abrasions or rash Neurologic Neurologic: Denies headache(s), paresthesias or weakness Psychiatric Psychiatric: Denies anxiety or depression Endocrine Endocrinology: Denies cold intolerance or heat intolerance Hematologic/Lymphatic Hematologic/Lymphatic: Reports systems reviewed and no addt'l complaints, except as documented EXAM Physical Exam Const Vital Signs: 07/13/22 17:11 07/13/22 17:16 07/13/22 19:57 Temperature 102.9 F H 102.9 F H Temperature Source Oral Oral Pulse Rate 102 H 102 H 104 H Respiratory Rate 18 18 16 Blood Pressure 112/71 112/71 144/75 H Blood Pressure Mean 84 84 98 Pulse Ox 100 100 99 Oxygen Delivery Method Room Air Room Air Room Air 07/13/22 19:16 07/13/22 20:05 07/13/22 21:10 Temperature 103.2 F H 103.2 F H Temperature Source Oral Oral Pulse Rate 100 102 H Respiratory Rate 18 18 Blood Pressure 141/76 H 138/76 H Blood Pressure Mean 97 96 Pulse Ox 99 98 Oxygen Delivery Method Room Air Room Air 07/13/22 22:11 07/13/22 22:11 Temperature Temperature Source Pulse Rate 98 Respiratory Rate 18 Blood Pressure 135/76 H Blood Pressure Mean 95 Pulse Ox 95 Oxygen Delivery Method Room Air Room Air Positive well nourished and well developed Constitutional Narrative: Patient appears ill but not toxic. General Appearance ED: well developed; Negative for cyanotic, diaphoretic or pallor HEENT Reports dry mucous membranes HEENT Narrative: Head is atraumatic normocephalic. Ears normal. Nares patent. Uvula midline. There is no erythema or exudate. No deviation tongue or protrusion. Mouth ED: Yes dry mucous membranes Mouth: dry mucous membranes Eyes PERRL and EOMs intact bilaterally Eyes Narrative: There is no photophobia. General Eye ED: Negative for pale conjunctiva or scleral icterus Neck no lymphadenopathy, supple and no JVD Neck Narrative: Trachea is midline. There is no inspiratory expiratory stridor. There is no cervical lymphadenopathy. Chest Wall inspection of chest normal and palpation of chest normal Resp normal respiratory effort and No clear to auscultation bilaterally Resp Narrative: Initially there was rales right lower base that cleared with deep breathing. There is no egophony or increased vocal fremitus. Cardio regular rhythm, S1 normal heart sound, S2 normal heart sound and no murmurs Rate: tachycardic GI normal to inspection, nondistended, normoactive bowel sounds, non-tender, non- distended and no masses; Negative for hepatosplenomegaly Back/Spine no CVA tenderness Cervical Spine: Negative for cervical spine tenderness Thoracic Spine / Upper Back: Negative for thoracic spinal tenderness Lumbar Spine / Lower Back: Negative for lumbar spinal tenderness Extremity Negative for normal to inspection Extremity Narrative: Patient has evidence of cellulitis left leg that is 10 cm x 15 cm. There is no lymphangitis. There is no fluctuance. There is no popliteal lymphadenopathy. Neuro No oriented x3, No CN's II-XII intact bilaterally and No no sensory deficits noted Sensorium / Orientation: alert, orientation impaired and lethargic Motor Exam: strength 5/5 throughout Psych mental status grossly normal Skin No no rashes or lesions noted, no wounds and skin turgor normal General Skin Exam: Negative for jaundice or pallor MDM MDM MDM Narrative Medical decision making narrative: Since patient completed a 5-day course azithromycin concerned rash may be due to staphylococcal and specifically MRSA. There is still a possibility of streptococcal infection since there is resistance to azithromycin. For this reason patient was treated with Unasyn and vancomycin. Sepsis work-up was initiated. Patient was told there is a probability she will be admitted to the hospital. Patient was reassessed at 2200. Patient appears pale. She is tachycardic tachypneic. She is still febrile. Even though her white count is still considered normal concern patient has sepsis and failed outpatient therapy even though the antibiotic is not totally appropriate for skin ann. Will contact hospitalist for observation versus full admission. Lab Data Attestation: I reviewed the patient's lab results. Lab results narrative: White count is upper end of normal. There is a shift with no bandemia. PT and PTT are slightly elevated. Comprehensive metabolic panel is marked for a sodium of 135 otherwise unremarkable. Glucose is 124. [place] is normal at 1.6. AST is slightly elevated at 63 with a total bili of 2.3 Labs: Laboratory Results - last 24 hr 07/13/22 07/13/22 07/13/22 19:20 19:20 19:20 WBC 11.0 RBC 3.85 L Hgb 11.4 L Hct 35.2 L MCV 91.4 MCH 29.6 MCHC 32.4 RDW Std Deviation 49.2 H RDW Coeff of Pepito 14.6 Plt Count 70 L MPV 12.2 H Immature Gran % (Auto) 1.000 H Neut % (Auto) 90.2 H Lymph % (Auto) 4.7 L [place] % (Auto) 3.7 Eos % (Auto) 0.1 Baso % (Auto) 0.3 Absolute Neuts (auto) 9.9 H Absolute Lymphs (auto) 0.52 L Eosinophils % (Manual) 0.52 Nucleated RBC % 0 Differential Comment SCANNED PT 16.0 H INR 1.3 APTT 38.7 H Sodium 135 L Potassium 4.0 Chloride 103 Carbon Dioxide 22.0 Anion Gap 10 BUN 11 Creatinine 0.86 Estim Creat Clear Calc 82.75 Est GFR (MDRD) Af Amer 90 Est GFR (MDRD) Non-Af 74 BUN/Creatinine Ratio 12.9 Glucose 124 H Lactic Acid Calcium 9.0 Total Bilirubin 2.30 H AST 63 H ALT 46 Alkaline Phosphatase 112 Total Protein 8.3 H Albumin 3.6 Globulin 4.7 H Albumin/Globulin Ratio 0.8 L 07/13/22 19:20 WBC RBC Hgb Hct MCV MCH MCHC RDW Std Deviation RDW Coeff of Pepito Plt Count MPV Immature Gran % (Auto) Neut % (Auto) Lymph % (Auto) [place] % (Auto) Eos % (Auto) Baso % (Auto) Absolute Neuts (auto) Absolute Lymphs (auto) Eosinophils % (Manual) Nucleated RBC % Differential Comment PT INR APTT Sodium Potassium Chloride Carbon Dioxide Anion Gap BUN Creatinine Estim Creat Clear Calc Est GFR (MDRD) Af Amer Est GFR (MDRD) Non-Af BUN/Creatinine Ratio Glucose Lactic Acid 1.6 Calcium Total Bilirubin AST ALT Alkaline Phosphatase Total Protein Albumin Globulin Albumin/Globulin Ratio EKG Initial EKG: Attestation: I personally reviewed and interpreted this EKG as follows: Interpretation: Sinus Rhythm (Rate is 99. OK interval is 130 ms. QS duration 80 ms. QT duration 326 ms. [place] is normal. There is evidence of LVH with repolarization changes. There is no acute ischemic changes noted.) Prior: No Prior Discharge Plan Dx/Rx/DC Orders Clinical Impression: Sepsis, Cellulitis of left leg Disposition Disposition: Acute Care Hospital [facility]
[2022-07-13] MEDS: 0.9% Normal Saline 1,000 ML 999 ML IV (19:30)
[2022-07-13 19:37] LABS: Absolute Lymphocyte Count 0.52 X10^3/uL (0.83-4.51); Absolute Neutrophil Count 9.9 X10^3/uL (2.0-7.7); Basophil# 0.03 X10^3/uL; Basophil% 0.3 % (0-1); Eosinophil# 0.01 X10^3/uL; Eosinophils% 0.1 % (0-5); Hematocrit 35.2 % (37-47); Hemoglobin 11.4 g/dL (12.0-15.0); Lymphocyte # 0.52 X10^3/ul (0.83-4.51); Lymphocyte % 4.7 % (19-41); Mean Corp Hgb Conc 32.4 g/dL (32-36); Mean Corpuscular Hgb 29.6 pg (27.0-32.0); Mean Corpuscular Volume 91.4 fL (81-99); Mean Platelet Vol. 12.2 fl (6.2-12.0); Monocyte# 0.41 X10^3/uL; Monocyte% 3.7 % (0-10); NRBC Flagged by Analyzer 0 % (0-5); Neutrophil # 9.91 X10^3/uL (2.7-7.7); Neutrophil % 90.2 % (47-70); POSITIVE COUNT YES; POSITIVE DIFFERENTIAL YES; Platelet Count 70 K/mm3 (150-450); RBC Distribution Width CV 14.6 % (11.6-14.6); RBC Distribution Width SD 49.2 fl (35.1-43.9); Red Blood Count 3.85 M/mm3 (4.2-5.4)
[2022-07-13 19:41] LABS: Differential Indicated SCAN CRITERIA MET
[2022-07-13 19:50] LABS: International Normalized Ratio 1.3; Partial Thromboplast Time 38.7 Seconds (24.1-36.2)
[2022-07-13 19:52] LABS: ALB/GLOB Ratio 0.8 RATIO (0.9-2.4); AST(SGOT) 63 U/L (15-37); Alanine Aminotransfer ALT/SGPT 46 U/L (13-56); Albumin, Serum 3.6 g/dL (3.2-5.0); Alkaline Phosphatase 112 U/L (45-117); Anion Gap 10 (5-15); BUN 11 mg/dL (7-18); BUN/Creat Ratio 12.9 RATIO (10-20); Chloride 103 mmol/L (98-107); Creatinine, Serum 0.86 mg/dL (0.55-1.02); EST Glomerular Filtration Rate 74 mL/min (>60); Est Glom Filt Rate - Afr Amer 90 mL/min (>60); Estimated Creatinine Clearance 82.75 ml/min; Globulin 4.7 g/dL (2.2-4.2); Glucose 124 mg/dL (74-106); Protein, Total 8.3 g/dL (6.4-8.2); Sodium Level 135 mmol/L (136-145)
[2022-07-13 20:01] LABS: Lactic Acid 1.6 mmol/L (0.4-1.9)
[2022-07-13 20:18] LABS: Differential Comment SCANNED; Eosinophil 0.52 % (0-5)
--- NOTE | 2022-07-13 20:20 | RAD_ITS ---
STUDY: X-RAY CHEST REASON FOR EXAM: Female, 52 years old. fever TECHNIQUE: Single AP portable view of the chest. COMPARISON: None. FINDINGS: The lungs are clear and expanded. There is no demonstrated pleural abnormality. Normal size heart. Normal mediastinum and keri. Normal visualized pulmonary arteries. Normal visualized aortic arch and descending thoracic aorta. Normal visualized thoracic spine. Normal visualized ribs, clavicles, and shoulders. There is no demonstrated abnormality of the visualized soft tissue structures of the upper abdomen. RAD/Chest 1 View (Portable) IMPRESSION: Normal x-ray examination of the chest. Electronically Signed: Jadon Nails MD at 22:39 EDT ,
--- NOTE | 2022-07-13 22:17 | PCM.HP.STD ---
HPI - General General Date of Admission: 07/13/22 Date of Service: 07/13/22 Chief Complaint: Recent URI, resolved with home negative COVID testing however continued fevers, malaise, fatigue. HPI Narrative The patient is a 52 y/o F w/ PMHX: EtOH abuse sober since 2020 with Hx EtOH cirrhotic liver disease, Hx Wernickes encephalopathy, Anxiety and Depression, Chronic normocytic anemia/AOCD, Chronic thrombocytopenia, GERD, Hx Migraine headaches who presents to the [facility] ED on 07/13/22 with history of ongoing fever, chills, sore throat with productive cough of green sputum with upper respiratory type symptoms with nausea and dyspepsia with outpatient treatment with a 5-day course of azithromycin with several home COVID test noted to be negative not improving prompted ED evaluation. Patient does report chronic diarrhea as she is on chronic lactulose with no change in her output with as noted upset stomach but no specific emesis nor any neurological symptoms. She notes all of her upper respiratory symptoms have resolved but she noted ongoing fever. In the ED upon patient evaluation ED physician noted significant left lower extremity cellulitis with no lymphangitic streaking but significant size noted to be 10 cm x 15 cm which both spouse and patient had not noted prior but patient does on evaluation have some scratches on the left lower extremity but no drainage from these regions. Work-up in the ED included T-max 103.2, heart rate 102, BP 112/71, respiratory rate 18, 100% on room air, CBC with WC 11, hemoglobin 11.4, MCV 91.4, platelets 70 with left shift and lymphopenia, coags with PT 16, INR 1.3, PTT 38.7, CMP with sodium 135, glucose 124, lactic acid 1.6, T bili 2.30, AST/ALT 63/46, chest x-ray with no acute cardiopulmonary findings, blood culture x2 pending per ED. in the ED patient ministered Unasyn as well as vancomycin and normal saline bolus. [facility] Medical History Abnormal liver function test Alcohol use Alcoholic hepatitis Anemia Anxiety Cardiology follow-up encounter Gastric reflux History of Clostridium difficile infection History of edema History of pain when walking Leg cramps Migraine headache Neuropathy Non-smoker Post-menopausal Splenomegaly Syncope Walker as ambulation aid Wears glasses Wernickes encephalopathy Home Medications gabapentin 300 mg tablet 300 mg PO TID 03/05/22 [History Last Taken 04/05/22 05:00] melatonin 10 mg tablet 10 mg PO QHS 03/05/22 [History Last Taken Unknown] cholecalciferol (vitamin D3) 125 mcg (5,000 unit) tablet (Vitamin D3) 125 mcg PO DAILY 04/04/22 [History Last Taken Unknown] duloxetine 60 mg capsule,delayed release sprinkle 60 mg PO QHS 04/04/22 [History Last Taken Unknown] folic acid 1 mg tablet 1 mg PO DAILY 04/04/22 [History Last Taken Unknown] multivitamin 1 cap PO DAILY 04/04/22 [History Last Taken Unknown] thiamine HCl (vitamin B1) 100 mg tablet (Vitamin B-1) 100 mg PO DAILY 04/04/22 [History Last Taken Unknown] trazodone 50 mg tablet 25 mg PO QHS 04/04/22 [History Last Taken Unknown] pantoprazole 40 mg tablet,delayed release 40 mg PO BID #60 tabs 04/06/22 [Rx Last Taken Unknown] nadolol 20 mg tablet 20 mg PO ONCE #30 tabs 06/04/22 [Rx Last Taken Unknown] lactulose 10 gram/15 mL (15 mL) oral solution 15 ml PO TID #750 mL 07/06/22 [Rx Last Taken Unknown] Allergy/AdvReac Type Severity Reaction Status Date / Time No Known Allergies Allergy Verified 06/04/22 10:46 Family History (Updated 07/13/22 @ 23:[address] Belén Angeles MD) Mother Dementia Father Diabetes Surgical History History of liver biopsy History of tonsillectomy and adenoidectomy Social History (Updated 07/13/22 @ 18:[address] Esteban Alston MD) household members: spouse Smoking Status: Never smoker alcohol intake: former year quit: 2020 substance use type: does not use ROS ROS Narrative Admission Review of Systems: CONSTITUTIONAL: No weight loss, + fever, weakness or fatigue. HEENT: + Recent sore throat, congestion, now resolved. Eyes: No visual loss, blurred vision, double vision or yellow sclerae. Ears, Nose, Throat: No hearing loss. SKIN: + Scratches, abrasions to LLE, erythema ankle to knee circumferentially LLE. CARDIOVASCULAR: No chest pain, chest pressure or chest discomfort, palpitations, edema, orthopnea, syncopal events. RESPIRATORY: + Recent productive cough, resolved. No shortness of breath, wheezing, hemoptysis. GASTROINTESTINAL: + anorexia, nausea, dyspepsia, unchanged chronic diarrhea, No vomiting, abdominal pain, melena, BRBPR. GENITOURINARY: No dysuria, frequency, urgency or retention. NEUROLOGICAL: No headache, dizziness, syncope, paralysis, ataxia, numbness or tingling in the extremities, focal weakness, change in bowel or bladder control, seizure. MUSCULOSKELETAL:+ muscle, back pain, joint pain or stiffness. HEMATOLOGIC: + anemia, bleeding or bruising. LYMPHATICS: No enlarged nodes. No history of splenectomy. PSYCHIATRIC: + history of depression or anxiety. ENDOCRINOLOGIC: No reports of sweating, cold or heat intolerance. No polyuria or polydipsia. ALLERGIES: No history of asthma, hives, eczema or rhinitis. Vital Signs Vital Signs Vital Signs: 07/13/22 17:11 07/13/22 17:16 07/13/22 19:57 Temperature 102.9 F H 102.9 F H Temperature Source Oral Oral Pulse Rate 102 H 102 H 104 H Respiratory Rate 18 18 16 Blood Pressure 112/71 112/71 144/75 H Blood Pressure Mean 84 84 98 Pulse Ox 100 100 99 Oxygen Delivery Method Room Air Room Air Room Air 07/13/22 19:16 07/13/22 20:05 07/13/22 21:10 Temperature 103.2 F H 103.2 F H Temperature Source Oral Oral Pulse Rate 100 102 H Respiratory Rate 18 18 Blood Pressure 141/76 H 138/76 H Blood Pressure Mean 97 96 Pulse Ox 99 98 Oxygen Delivery Method Room Air Room Air 07/13/22 22:11 07/13/22 22:11 Temperature Temperature Source Pulse Rate 98 Respiratory Rate 18 Blood Pressure 135/76 H Blood Pressure Mean 95 Pulse Ox 95 Oxygen Delivery Method Room Air Room Air Weight Weight: 155 lb Body Mass Index (BMI) 22.2 Physical Exam Narrative Physical Examination: General: Awake, alert, oriented x 3 and cooperative, seated upright in the ED bed, fatigued and ill-appearing. Skin: Normal color, normal turgor, no icterus, no cyanosis except for notable left lower extremity small scratches and abrasions to the anterior moeller with circumferential erythema from the ankle to the distal knee region, warm to touch, mildly edematous. HEENT: AT/NC, EOMI, PERRLA, dry MM, no carotid bruits or JVD noted. Lungs: Mildly diminished, greater bases, appropriate effort no rales, ronchi or wheezing. Heart: Mildly tachycardic with regular rhythm; no gallop, rub audible. Abdomen: Soft, NTTP, mildly distended, distant normal BS, + HM. Extremities: No cyanosis, no clubbing, see skin Neurological: Patient awake, alert, oriented as noted, cognitive function intact; pupils equally reactive to light and accommodation, cranial nerves II-XII grossly normal, moving all 4 extremities, no focal deficits, strength mildly moderately globally decreased secondary to acute presentation Psychiatric: Affect appears fatigued, ill-appearing, no acute evidence of depressive or anxiety feelings. Results Lab / Micro Data Result Diagrams: 07/13/22 19:20 07/13/22 19:20 Labs: Laboratory Results - last 24 hr 07/13/22 19:20: WBC 11.0, RBC 3.85 L, Hgb 11.4 L, Hct 35.2 L, MCV 91.4, MCH 29.6, MCHC 32.4, RDW Std Deviation 49.2 H, RDW Coeff of Pepito 14.6, Plt Count 70 L, MPV 12.2 H, Immature Gran % (Auto) 1.000 H, Neut % (Auto) 90.2 H, Lymph % (Auto) 4.7 L, [place] % (Auto) 3.7, Eos % (Auto) 0.1, Baso % (Auto) 0.3, Absolute Neuts (auto) 9.9 H, Absolute Lymphs (auto) 0.52 L, Eosinophils % (Manual) 0.52, Nucleated RBC % 0, Differential Comment SCANNED 07/13/22 19:20: PT 16.0 H, INR 1.3, APTT 38.7 H 07/13/22 19:20: Sodium 135 L, Potassium 4.0, Chloride 103, Carbon Dioxide 22.0, Anion Gap 10, BUN 11, Creatinine 0.86, Estim Creat Clear Calc 82.75, Est GFR (MDRD) Af Amer 90, Est GFR (MDRD) Non-Af 74, BUN/Creatinine Ratio 12.9, Glucose 124 H, Calcium 9.0, Total Bilirubin 2.30 H, AST 63 H, ALT 46, Alkaline Phosphatase 112, Total Protein 8.3 H, Albumin 3.6, Globulin 4.7 H, Albumin/Globulin Ratio 0.8 L 07/13/22 19:20: Lactic Acid 1.6 Assessment & Plan Assessment/Plan (1) Cirrhosis of liver: PLAN: Plan The patient is a 52 y/o F w/ PMHX: EtOH abuse sober since 2020 with Hx EtOH cirrhotic liver disease, Hx Wernickes encephalopathy, Anxiety and Depression, Chronic normocytic anemia/AOCD, Chronic thrombocytopenia, GERD, Hx Migraine headaches who presents to the [facility] ED on 07/13/22 with recent URI with resolution of all symptoms expect mild dyspepsia, nausea and ongoing unrelenting fevers with incidentally noted LLE erythema, warm and mild discomfort upon ED arrival. #1. LLE Extremity Cellulitis (Noted as Sepsis per ED physician based on SIRS x 2 and infectious source only, no organ dysfunction noted nor lactic acidosis thus would RULE OUT sepsis at this time), Failed recent outpatient abx therapy for concurrent URI as noted: Will admit to [facility], maintain on IV vancomycin and Unasyn with pending MRSA screen with de-escalation of antibiotic therapies as able however given patient significant systemic response opted to choose aggressively initially plan repeat CBC in AM, continue affected extremity elevation above heart when seated and in bed, monitor erythema outline with VS checks. If appearance on repeat evaluation not significantly proving would potentially opt at that point to obtain duplex ultrasound. #2. Recent upper respiratory infection: Patient with recent upper respiratory type infections however the symptoms seem to of resolved and chest x-ray with no acute cardiopulmonary findings, COVID testing has been negative. Suspect acute presentation is primarily secondary as noted #1. #3. Alcoholic cirrhotic liver disease with history of Wernickes encephalopathy: We will continue patient home thiamine, folic acid, nadolol, lactulose regimen and encourage continued gastroenterology follow-up. #4. Anxiety and depression: We will continue patient home duloxetine and low-dose trazodone regimen. #5. History of alcohol abuse, sober since 08/2021, encourage continued sobriety. #6. Chronic normocytic anemia: Admission hemoglobin 11.4, baseline 10-11, stable, trend. #7. Chronic thrombocytopenia, related to underlying cirrhotic liver disease: Admission platelets 70, baseline prior 50-70, stable, continue to trend. #8. GERD: We will continue patient home PPI. #9. DVT prophylaxis: SCDs, defer chemoprophylaxis given thrombocytopenia however if improvement is not noted with antibiotic therapies and intervention as noted may require duplex ultrasound of the affected extremity. Charges/Coding Visit Charges Inpatient E&M: 72365 Init Hosp L3
[2022-07-13 23:02] LABS: Magnesium 1.5 mg/dL (1.6-2.6); Phosphorus 3.3 mg/dL (2.5-4.9)
[2022-07-14] VITALS (10 sets, daily range): BP systolic 97–131; BP diastolic 54–79; PULSE 83–101; RESP 16–20; TEMP 37.1–39.5; O2SAT 94–99; BMI 23.5
--- NOTE | 2022-07-14 00:48 | PCM.RX.CS ---
Consult Pharmacy has been consulted to manage selected antiobiotic: Vancomycin Type of Consult: New start Suspected Infection: Skin/Soft tissue Labs: Sodium 135 mmol/L (136-145) L 07/13/22 19:20 Potassium 4.0 mmol/L (3.5-5.1) 07/13/22 19:20 Chloride 103 mmol/L (98-107) 07/13/22 19:20 Carbon Dioxide 22.0 mmol/L (21.0-32.0) 07/13/22 19:20 Anion Gap 10 (5-15) 07/13/22 19:20 BUN 11 mg/dL (7-18) 07/13/22 19:20 Creatinine 0.86 mg/dL (0.55-1.02) 07/13/22 19:20 Est GFR (MDRD) Af Amer 90 mL/min (>60) 07/13/22 19:20 Est GFR (MDRD) Non-Af 74 mL/min (>60) 07/13/22 19:20 BUN/Creatinine Ratio 12.9 RATIO (10-20) 07/13/22 19:20 Glucose 124 mg/dL (74-106) H 07/13/22 19:20 Goal Trough: 10-15 mcg/mL Pharmacy Plan for Drug Dosing: Pharmacy Service will continue to monitor and adjust dosing as required. Medications Vancomycin HCl 750 mg/ Sodium (Chloride) 265 mls @ 250 mls/hr IV Q12H LOIS Discontinued Medications Vancomycin HCl 1,750 mg/ (Sodium Chloride) 535 mls @ 250 mls/hr IV X1 ONE Stop: 07/13/22 21:08 Last Admin: 07/14/22 00:07 Dose: Infused Follow-Up Labs: Trough Vancomycin Labs to be done on [date and time ordered]: 07/15 @ 2018
[2022-07-14 01:00] LABS: Mucous, Urine 0 SEEN /hpf (<or=2+); Red Blood Cells-Urine 0 SEEN /hpf (0-5)
[2022-07-14 01:01] LABS: Color, Urine Yellow (Yellow); Glucose, Dipstick Normal (Normal); Ketone-Dipstick 5 mg/dl (Negative); Leukocyte Esterase-Dipstick 25 /ul (Negative); Nitrite-Dipstick Negative (Negative); Occult Blood-Urine Negative /ul (Negative); Protein-Dipstick 15 mg/dl (Negative); Specific Gravity, Urine 1.015 (1.002-1.030); Urine Clarity Clear (Clear); Urine Urobilinogen 8 mg/dl (Normal); Urine pH 6.5 (5.0 - 8.0)
[2022-07-14 01:03] LABS: Urine Bilirubin Dipstick 1 mg/dL (Negative)
[2022-07-14 01:07] LABS: Squamous Epithelial Cells - UA 5-10 SEEN /hpf (5-10); White Blood Cells 0-5 SEEN /hpf (0-5)
[2022-07-14] MEDS: 0.9% Normal Saline 1,000 ML 100 ML IV ×2 (01:07→13:35)
[2022-07-14] MEDS: 0.9% Saline Lock 10 ML Syringe IV (01:07)
[2022-07-14] MEDS: Ondansetron 4 MG/2 ML Vial IV (01:07)
[2022-07-14 01:08] LABS: Bacteria RARE /hpf (None Seen)
[2022-07-14] MEDS: traZODone 50 MG Tablet 25 MG PO ×2 (01:08→20:49)
[2022-07-14] MEDS: DULoxetine Hcl 60 MG Capsule PO ×2 (01:08→20:50)
[2022-07-14] MEDS: Lactulose 20 GM/30 ML UDC 10 GM PO ×4 (01:08→20:44)
[2022-07-14] MEDS: MELATONIN 10 MG TABLET PO ×2 (01:08→20:50)
[2022-07-14] MEDS: Acetaminophen 325 MG Tablet 650 MG PO ×3 (01:08→17:36)
[2022-07-14] MEDS: Gabapentin 300 MG Capsule PO ×3 (04:59→20:49)
[2022-07-14 06:59] LABS: M R Staph aureus DNA By PCR Negative (Negative); Probe Check PASS; Specimen Processing Control PASS
[2022-07-14 07:55] LABS: Absolute Lymphocyte Count 0.62 X10^3/uL (0.83-4.51); Absolute Neutrophil Count 9.2 X10^3/uL (2.0-7.7); Basophil# 0.04 X10^3/uL; Basophil% 0.4 % (0-1); Eosinophil# 0.04 X10^3/uL; Eosinophils% 0.4 % (0-5); Hematocrit 30.5 % (37-47); Hemoglobin 9.9 g/dL (12.0-15.0); Lymphocyte # 0.62 X10^3/ul (0.83-4.51); Lymphocyte % 5.9 % (19-41); Mean Corp Hgb Conc 32.5 g/dL (32-36); Mean Corpuscular Hgb 30.5 pg (27.0-32.0); Mean Corpuscular Volume 93.8 fL (81-99); Mean Platelet Vol. 11.5 fl (6.2-12.0); Monocyte% 3.8 % (0-10); NRBC Flagged by Analyzer 0 % (0-5); Neutrophil # 9.24 X10^3/uL (2.7-7.7); Neutrophil % 87.8 % (47-70); POSITIVE COUNT YES; Platelet Count 57 K/mm3 (150-450); RBC Distribution Width SD 52.3 fl (35.1-43.9); Red Blood Count 3.25 M/mm3 (4.2-5.4); White Blood Count 10.5 K/mm3 (4.4-11.0)
[2022-07-14 07:58] LABS: Differential Indicated SCAN CRITERIA MET
[2022-07-14 08:07] LABS: ALB/GLOB Ratio 0.7 RATIO (0.9-2.4); AST(SGOT) 43 U/L (15-37); Alanine Aminotransfer ALT/SGPT 38 U/L (13-56); Albumin, Serum 2.8 g/dL (3.2-5.0); Alkaline Phosphatase 84 U/L (45-117); Anion Gap 8 (5-15); BUN 12 mg/dL (7-18); Calcium,Total 8.1 mg/dL (8.5-10.1); Chloride 110 mmol/L (98-107); Creatinine, Serum 0.86 mg/dL (0.55-1.02); EST Glomerular Filtration Rate 74 mL/min (>60); Est Glom Filt Rate - Afr Amer 89 mL/min (>60); Estimated Creatinine Clearance 82.75 ml/min; Glucose 116 mg/dL (74-106); Potassium 3.6 mmol/L (3.5-5.1); Protein, Total 6.8 g/dL (6.4-8.2); Sodium Level 138 mmol/L (136-145)
[2022-07-14] MEDS: Pantoprazole Sodium 40 MG Tablet PO ×2 (09:08→20:49)
[2022-07-14] MEDS: Nadolol 20 MG Tablet PO (09:08)
--- NOTE | 2022-07-14 11:17 | PCM.PN.HOSP ---
Documented by User: Taylor Hankins NP, CYBER WORKFORCE DEVELOPER AND MANAGER-C 07/14/22 11:32 Subjective Subjective Patient seen and examined. Reports fever, chills. Denies current upper respiratory symptoms. Left lower extremity discomfort. Denies other symptoms or complaints. Objective Data Objective Data Vital Signs: Vital Signs Temp Pulse Resp BP Pulse Ox O2 Del Method 99 F 94 16 108/60 94 Room Air 07/14/22 03:14 07/14/22 03:14 07/14/22 03:14 07/14/22 03:14 07/14/22 07:42 07/14/22 07:42 Oxygen Delivery Method Room Air Weight: 164 lb Body Mass Index (BMI) 23.5 Intake & Output: Intake and Output for Last 24 Hours 07/12/22 07/13/22 07/14/22 23:59 23:59 23:59 Intake Total 112 / 112 2524.00 / 2524.00 Output Total 300 / 300 Balance 112 / 112 2224.00 / 2224.00 Lab / Micro Data Result Diagrams: 07/14/22 07:02 07/14/22 07:02 Labs: Laboratory Results - last 24 hr 07/13/22 19:20: WBC 11.0, RBC 3.85 L, Hgb 11.4 L, Hct 35.2 L, MCV 91.4, MCH 29.6, MCHC 32.4, RDW Std Deviation 49.2 H, RDW Coeff of Pepito 14.6, Plt Count 70 L, MPV 12.2 H, Immature Gran % (Auto) 1.000 H, Neut % (Auto) 90.2 H, Lymph % (Auto) 4.7 L, [place] % (Auto) 3.7, Eos % (Auto) 0.1, Baso % (Auto) 0.3, Absolute Neuts (auto) 9.9 H, Absolute Lymphs (auto) 0.52 L, Eosinophils % (Manual) 0.52, Nucleated RBC % 0, Differential Comment SCANNED 07/13/22 19:20: PT 16.0 H, INR 1.3, APTT 38.7 H 07/13/22 19:20: Sodium 135 L, Potassium 4.0, Chloride 103, Carbon Dioxide 22.0, Anion Gap 10, BUN 11, Creatinine 0.86, Estim Creat Clear Calc 82.75, Est GFR (MDRD) Af Amer 90, Est GFR (MDRD) Non-Af 74, BUN/Creatinine Ratio 12.9, Glucose 124 H, Calcium 9.0, Total Bilirubin 2.30 H, AST 63 H, ALT 46, Alkaline Phosphatase 112, Total Protein 8.3 H, Albumin 3.6, Globulin 4.7 H, Albumin/Globulin Ratio 0.8 L 07/13/22 19:20: Lactic Acid 1.6 07/13/22 19:20: Phosphorus 3.3, Magnesium 1.5 L 07/14/22 00:45: Urine Color Yellow, Urine Clarity Clear, Urine pH 6.5, Ur Specific [place] 1.015, Urine Protein 15 H, Urine Glucose (UA) Normal, Urine Ketones 5 H, Urine Occult Blood Negative, Urine Nitrite Negative, Urine Bilirubin 1 H, Urine Urobilinogen 8 H, Ur Leukocyte Esterase 25 H, Urine RBC 0 SEEN, Urine WBC 0-5 SEEN, Ur Squamous Epith Cells 5-10 SEEN, Urine Bacteria RARE, Urine Mucus 0 SEEN 07/14/22 03:05: MRSA (PCR) Negative 07/14/22 07:02: WBC 10.5, RBC 3.25 L, Hgb 9.9 L, Hct 30.5 L, MCV 93.8, MCH 30.5, MCHC 32.5, RDW Std Deviation 52.3 H, RDW Coeff of [place]ito 15.0 H, Plt Count 57 L, MPV 11.5, Immature Gran % (Auto) 1.700 H, Neut % (Auto) 87.8 H, Lymph % (Auto) 5.9 L, [place] % (Auto) 3.8, Eos % (Auto) 0.4, Baso % (Auto) 0.4, Absolute Neuts (auto) 9.2 H, Absolute Lymphs (auto) 0.62 L, Nucleated RBC % 0 07/14/22 07:02: Sodium 138, Potassium 3.6, Chloride 110 H, Carbon Dioxide 20.0 L, Anion Gap 8, BUN 12, Creatinine 0.86, Estim Creat Clear Calc 82.75, Est GFR (MDRD) Af Amer 89, Est GFR (MDRD) Non-Af 74, BUN/Creatinine Ratio 14.0, Glucose 116 H, Calcium 8.1 L, Total Bilirubin 2.80 H, AST 43 H, ALT 38, Alkaline Phosphatase 84, Total Protein 6.8, Albumin 2.8 L, Globulin 4.0, Albumin/Globulin Ratio 0.7 L Radiography Diagnostic Testing: Radiology Impression Chest X-Ray 07/13/22 20:20 IMPRESSION: Normal x-ray examination of the chest. Electronically Signed: Jadon Nails MD at 22:39 EDT Reading Location ID and State: [facility] / [place] Tel , Service support , Physical Exam Const alert and oriented x3 HEENT normocephalic Mouth: dry mucous membranes Eyes PERRL, EOMs intact bilaterally and conjunctivae normal Neck no lymphadenopathy Resp clear to auscultation bilaterally Auscultation: diminished lung sounds Cardio regular rate, regular rhythm and no murmurs Peripheral Pulses: pulses 2+ throughout GI normal to inspection, nondistended, normoactive bowel sounds, non-tender and non-distended Extremity normal to inspection Skin no rashes or lesions noted Skin Narrative: Left lower calf and thigh area erythema and warmth. Lesions: no lesions Rashes: no rashes Trauma: no lacerations or abrasions Neuro CN's II-XII intact bilaterally, no focal motor deficits, no sensory deficits noted and deep tendon reflexes 2+ bilaterally Psych Mood & Affect: flat affect Assessment & Plan Assessment/Plan (1) Cellulitis of left leg: PLAN: Plan 1. Left lower extremity cellulitis-sepsis ruled out. IV vancomycin and IV zosyn. MRSA negative. Blood cultures pending. 2. Recent [id number]. Improved. Chest x-ray unremarkable. 3. Alcoholic cirrhosis with history of Warnicke's encephalopathy-follows with GI. Continue thiamine, folic acid, nadolol, lactulose. 4. History of alcohol abuse-sober since 09/07. 5. Chronic normocytic anemia/thrombocytopenia-stable, trend CBC. 6. Anxiety/depression-on duloxetine, trazodone. 7. GERD-continue PPI. DVT prophylaxis-SCDs This patient was seen by TAMARA Doran under the supervision of Dr. Borges. Documented by User: Dr. Ruth Borges DO 07/14/22 13:01 Subjective Subjective This patient was seen in conjunction with Taylor Hankins NP. The following represents my independent history and physical examination. Please see below for addendum the above. Patient reports ongoing chills and fevers through the night. New area of redness on the medial thigh. Evidently had tried to treat an ingrown toenail on her left lower extremity independently and I suspect this is the nidus for her cellulitis. I discussed and explained in detail the above. Patient did ask me if she could go home later today and I explained to her why it would not be safe to do so at this time. Objective Data Lab / Micro Data Result Diagrams: 07/14/22 07:02 07/14/22 07:02 Physical Exam Const alert, oriented x3 and well nourished Constitutional Narrative: Middle-aged white female lying in bed under multiple covers and requests that he be turned up in the room, appears ill HEENT head/scalp atraumatic and moist oral mucous membranes HEENT Narrative: Mallampati 2, no thrush, dentition is fair Head and Scalp: normocephalic Resp normal respiratory effort, no retractions, no use of accessory muscles and clear to auscultation bilaterally Cardio regular rhythm, S1 normal heart sound, S2 normal heart sound, no murmurs, no rub, no gallops, no clicks and no JVD Cardio Narrative: Mild tachycardia GI normal to inspection, nondistended, normoactive bowel sounds, soft to palpation and non-tender Extremity Extremity Narrative: Slight edema left lower extremity with erythema at the distal third and medial proximal thigh that almost appears like ecchymosis, first digit left foot with evidence of manipulation and dried blood on the medial hallux at the nailbed with surrounding erythema Neuro oriented x3, moves all extremities, no focal motor deficits and no sensory deficits noted Speech: speech normal Assessment & Plan Assessment/Plan (1) Cellulitis of left leg: PLAN: Plan Assessment: Left lower extremity cellulitis Tachycardia Fevers Chronic anemia-normocytic Chronic thrombocytopenia Hypomagnesemia Alcoholic cirrhosis History of Wernicke's encephalopathy History of alcoholism-sober since 2020 GERD Esophageal varices Depression/anxiety Plan: -We will broaden from Unasyn to Zosyn given this likely was initiated from a foot injury and Pseudomonas would need to be covered -Continue vancomycin -Blood cultures are pending -2 g Mag bolus with repeat lab in a.m. -High suspicion the patient may be bacteremic -Continue thiamine/folate Acid/nadolol/lactulose -Continue duloxetine and trazodone -Continue PPI Charges/Coding Visit Charges Inpatient E&M: 69455 Subs Hosp L2
--- NOTE | 2022-07-14 11:45 | CASEMGMT ---
SHREE RIVERA assessment: Face to Face with patient for initial transition planning/care coordination assessment. SHREE RIVERA introduced self and role at [facility], pt voices understanding and consents to assessment. Pt is sitting up in bed in no distress on room air. Pt is A/Ox4 and answers all questions appropriately. Pt's family is at bedside during assessment.? Care providers, pharmacy,?and demographics verified. ? Presentation: Pt c/o fever intermittently for last week-neg for COVID, on zpak with no improvement Admitting dx: LLE cellulitis PCP: Lea Specialists: Friend, GI Preferred Pharmacy: [facility] Insurance: [employer] Prescription Benefit:?[employer] Living Will/HPOA: Pt does not have LW/HPOA but would like AD info and Demarco Elmore SW aware. LNOK: Sedrick Marino, Living Arrangements: Pt lives with in 2 story home and states no concerns at home. Pt is independent with ADL's. Transportation: Pt states family drives and states no transportation concerns. DME/HHC: Pt states has the following DME: cane, WW x3, raised toilet seat, grab bars, and shower chair. Pt states no need for any further DME. Pt has been to [facility] in past. Pt has also had [facility] in past. Pt also states just finished OP PT/OT. Pt states no concerns with going home at time of discharge. Pt is unemployed. Pt states does not smoke cigarettes or drink ETOH. Pt states no further concerns/needs. CM to follow for any further questions/concerns/needs. Advised pt to ask for CM if any further questions/concerns/needs arise, voices understanding. ? Pt Goal: Home Plan: [place] SHREE RIVERA
--- NOTE | 2022-07-14 15:32 | CASEMGMT ---
Social Work SW met w/pt, gave pt blank forms for LW/POA and reviewed briefly. SW did give pt the number for the SW department should she want to come back to complete them after discharge. JOSE Truong
--- NOTE | 2022-07-14 15:45 | CASEMGMT ---
SHREE RIVERA assessment: Face to Face with patient for initial transition planning/care coordination assessment. SHREE RIVERA introduced self and role at [facility], pt voices understanding and consents to assessment. Pt is sitting up in bed in no distress on room air. Pt is A/Ox4 and answers all questions a;.? Care providers, pharmacy,?and demographics verified. ? PCP: Specialists: Preferred Pharmacy: Insurance: Prescription Benefit:? Living Will/HPOA: LNOK: Living Arrangements: Transportation: DME/HHC: ? Plan:
[2022-07-15] VITALS (7 sets, daily range): BP systolic 108–129; BP diastolic 63–78; PULSE 72–93; RESP 16–20; TEMP 36.5–37.5; O2SAT 94–100
[2022-07-15] MEDS: 0.9% Normal Saline 1,000 ML 100 ML IV ×3 (01:50→22:05)
[2022-07-15] MEDS: Acetaminophen 325 MG Tablet 650 MG PO ×2 (01:53→14:16)
[2022-07-15] MEDS: Lactulose 20 GM/30 ML UDC 10 GM PO ×3 (05:17→18:20)
[2022-07-15] MEDS: Gabapentin 300 MG Capsule PO ×3 (05:17→20:56)
[2022-07-15 06:11] LABS: Absolute Lymphocyte Count 0.86 X10^3/uL (0.83-4.51); Absolute Neutrophil Count 6.1 X10^3/uL (2.0-7.7); Basophil# 0.03 X10^3/uL; Basophil% 0.4 % (0-1); Eosinophil# 0.01 X10^3/uL; Eosinophils% 0.1 % (0-5); Hematocrit 27.1 % (37-47); Hemoglobin 8.9 g/dL (12.0-15.0); Lymphocyte # 0.86 X10^3/ul (0.83-4.51); Lymphocyte % 11.5 % (19-41); Mean Corp Hgb Conc 32.8 g/dL (32-36); Mean Corpuscular Hgb 30.2 pg (27.0-32.0); Mean Corpuscular Volume 91.9 fL (81-99); Mean Platelet Vol. 11.8 fl (6.2-12.0); Monocyte# 0.38 X10^3/uL; Monocyte% 5.1 % (0-10); NRBC Flagged by Analyzer 0 % (0-5); POSITIVE COUNT YES; RBC Distribution Width CV 15.3 % (11.6-14.6); RBC Distribution Width SD 51.1 fl (35.1-43.9); Red Blood Count 2.95 M/mm3 (4.2-5.4); White Blood Count 7.5 K/mm3 (4.4-11.0)
[2022-07-15 06:45] LABS: ALB/GLOB Ratio 0.6 RATIO (0.9-2.4); AST(SGOT) 31 U/L (15-37); Alanine Aminotransfer ALT/SGPT 29 U/L (13-56); Albumin, Serum 2.4 g/dL (3.2-5.0); Alkaline Phosphatase 68 U/L (45-117); Anion Gap 7 (5-15); BUN 12 mg/dL (7-18); BUN/Creat Ratio 17.2 RATIO (10-20); Chloride 113 mmol/L (98-107); EST Glomerular Filtration Rate 93 mL/min (>60); Est Glom Filt Rate - Afr Amer 113 mL/min (>60); Estimated Creatinine Clearance 101.66 ml/min; Globulin 3.8 g/dL (2.2-4.2); Glucose 115 mg/dL (74-106); Potassium 3.7 mmol/L (3.5-5.1); Protein, Total 6.2 g/dL (6.4-8.2); Sodium Level 139 mmol/L (136-145)
[2022-07-15 06:59] LABS: Differential Indicated SCAN CRITERIA MET
[2022-07-15 07:01] LABS: Platelet Count 39 K/mm3 (150-450)
[2022-07-15 07:02] LABS: Differential Comment SCANNED
[2022-07-15] MEDS: Folic Acid 1 MG Tablet PO (09:07)
[2022-07-15] MEDS: Multivitamins,Therapeutic Tablet 1 TABLET PO (09:07)
[2022-07-15 09:31] LABS: Vancomycin, Trough Level 7.2 ug/mL (5.0-15.0)
--- NOTE | 2022-07-15 09:52 | PCM.RX.CS ---
Consult Pharmacy has been consulted to manage selected antiobiotic: Vancomycin Type of Consult: Follow-up Suspected Infection: Skin/Soft tissue Prior Doses of Antibiotics Received/Current Regimen: Currently on 750mg iv q12h. Labs: Sodium 139 mmol/L (136-145) 07/15/22 05:55 Potassium 3.7 mmol/L (3.5-5.1) 07/15/22 05:55 Chloride 113 mmol/L (98-107) H 07/15/22 05:55 Carbon Dioxide 19.0 mmol/L (21.0-32.0) L 07/15/22 05:55 Anion Gap 7 (5-15) 07/15/22 05:55 BUN 12 mg/dL (7-18) 07/15/22 05:55 Creatinine 0.70 mg/dL (0.55-1.02) 07/15/22 05:55 Est GFR (MDRD) Af Amer 113 mL/min (>60) 07/15/22 05:55 Est GFR (MDRD) Non-Af 93 mL/min (>60) 07/15/22 05:55 BUN/Creatinine Ratio 17.2 RATIO (10-20) 07/15/22 05:55 Glucose 115 mg/dL (74-106) H 07/15/22 05:55 Vancomycin Trough 7.2 ug/mL (5.0-15.0) 07/15/22 08:45 Weight used for dosin.2 kg Estimated Creatinine Clearance: 102ml/min Goal Trough: 10-15 mcg/mL Pharmacy Plan for Drug Dosing: Trough level today 12 hrs post last dose was 7.2 with goal range of 10-15mcg/ml. Will increase dose to 1250mg iv q12h. New trough level ordered for before 4th dose of new regimen. Pharmacy Service will continue to monitor and adjust dosing as required. Follow-Up Labs: Trough Vancomycin - 8.29.22 @9203
--- NOTE | 2022-07-15 10:21 | PN.HOSP_ITS ---
Documented by User: Taylor Hankins NP, PERSONNEL WORKER-C 07/15/22 10:29 Subjective Subjective Patient seen and examined. Reports improvement in fever, overall feeling better. Continues to have left lower extremity discomfort however improved from prior. Objective Data Objective Data Vital Signs: Vital Signs Temp Pulse Resp BP Pulse Ox O2 Del Method 99.5 F H 93 16 115/63 94 Room Air 07/15/22 02:05 07/15/22 02:05 07/15/22 02:05 07/15/22 02:05 07/15/22 07:33 07/15/22 07:33 Oxygen Delivery Method Room Air Weight: 165 lb 12.602 oz Body Mass Index (BMI) 23.5 Intake & Output: Intake and Output for Last 24 Hours 07/13/22 07/14/22 07/15/22 23:59 23:59 23:59 Intake Total 112 / 112 4116.42 / 4116.42 928.33 / 928.33 Output Total 300 / 1100 1500 / 1500 Balance 112 / 112 3816.42 / 3016.42 -571.67 / -571.67 Lab / Micro Data Result Diagrams: 07/15/22 05:55 07/15/22 05:55 Labs: Laboratory Results - last 24 hr 07/15/22 05:55: WBC 7.5, RBC 2.95 L, Hgb 8.9 L, Hct 27.1 L, MCV 91.9, MCH 30.2, MCHC 32.8, RDW Std Deviation 51.1 H, RDW Coeff of Pepito 15.3 H, Plt Count 39 L*, MPV 11.8, Immature Gran % (Auto) 0.900, Neut % (Auto) 82.0 H, Lymph % (Auto) 11.5 L, [place] % (Auto) 5.1, Eos % (Auto) 0.1, Baso % (Auto) 0.4, Absolute Neuts (auto) 6.1, Absolute Lymphs (auto) 0.86, Nucleated RBC % 0, Differential Comment SCANNED, Diff Path Review March07/15/22 05:55: Sodium 139, Potassium 3.7, Chloride 113 H, Carbon Dioxide 19.0 L , Anion Gap 7, BUN 12, Creatinine 0.70, Estim Creat Clear Calc 101.66, Est GFR (MDRD) Af Amer 113, Est GFR (MDRD) Non-Af 93, BUN/Creatinine Ratio 17.2, Glucose 115 H, Calcium 8.0 L, Magnesium 2.0, Total Bilirubin 2.20 H, AST 31, ALT 29, Alkaline Phosphatase 68, Total Protein 6.2 L, Albumin 2.4 L, Globulin 3.8, Albumin/Globulin Ratio 0.6 L 07/15/22 08:45: Vancomycin Trough 7.2 Physical Exam Const alert, oriented x3 and no apparent distress Orientation / Consciousness: awake, oriented to person, oriented to place and oriented to time HEENT normocephalic and moist oral mucous membranes Eyes PERRL, EOMs intact bilaterally and conjunctivae normal Neck no lymphadenopathy Resp normal respiratory effort and clear to auscultation bilaterally Cardio regular rate, regular rhythm and no murmurs Peripheral Pulses: pulses 2+ throughout GI normal to inspection, nondistended, normoactive bowel sounds, non-tender and non-distended Extremity normal to inspection Skin no rashes or lesions noted Skin Narrative: Left lower calf and thigh area erythema and warmth. Improving. Lesions: no lesions Rashes: no rashes Trauma: no lacerations or abrasions Neuro CN's II-XII intact bilaterally, no focal motor deficits, no sensory deficits not ed and deep tendon reflexes 2+ bilaterally Psych mental status grossly normal and affect normal Assessment & Plan Assessment/Plan (1) Cellulitis of left leg: PLAN: Plan 1.? Left lower extremity cellulitis-sepsis ruled out.? IV vancomycin and IV zosyn.? MRSA negative.? Blood cultures pending. Clinically improving. Possible discharge 07/16/2022 if left lower extremity appearance further improves. 2. Recent [id number].? Improved.? Chest x-ray unremarkable. 3. Alcoholic cirrhosis with history of Warnicke's encephalopathy-follows with GI.? Continue thiamine, folic acid, nadolol, lactulose. 4. History of alcohol abuse-sober since 09/07. 5. Chronic normocytic anemia/thrombocytopenia-stable, trend CBC. 6. Anxiety/depression-on duloxetine, trazodone. 7. GERD-continue PPI. DVT prophylaxis-SCDs This patient was seen by TAMARA Doran under the supervision of Dr. Borges. Documented by User: Dr. Ruth Borges DO 07/15/22 11:48 Subjective Subjective This patient was seen in conjunction with Taylor Hankins NP. Following represents my independent history and physical examination. Please see below for than the above. Patient states overall she clinically feels better. She asked again if she is ready to go home yet today but I think we are to give her another 24 hours of IV antibiotics based on how her leg looks and the fact that she still having fairly high temperatures. T-max in last 24 hours 101.3 yesterday evening at 1740. Objective Data Lab / Micro Data Result Diagrams: 07/15/22 05:55 07/15/22 05:55 Physical Exam Const alert, oriented x3, no apparent distress, average body habitus and well nourished Constitutional Narrative: Middle-aged white female sitting up in bed, appears more comfortable and less toxic than yesterday, no more chills but still having intermittent fevers. HEENT head/scalp atraumatic and moist oral mucous membranes HEENT Narrative: Mallampati 2, no thrush Head and Scalp: normocephalic Resp normal respiratory effort, no retractions, no use of accessory muscles and clear to auscultation bilaterally Auscultation: Negative for crackles, rales, rhonchi or wheezes Cardio regular rate, regular rhythm, S1 normal heart sound, S2 normal heart sound, no murmurs, no rub, no gallops, no clicks and no JVD GI normal to inspection, nondistended, normoactive bowel sounds, soft to palpation, non-tender and hepatosplenomegaly Extremity Extremity Narrative: Left lower extremity edema that appears to be somewhat reduced on last 24 hours, no cyanosis or clubbing Skin Skin Narrative: Less erythema at the left hallux toenail, erythema within marked area seems to be retracting both at the distal lower extremity in the thigh however still warm to touch and tender with swelling as noted above Neuro oriented x3, moves all extremities and no focal motor deficits Sensorium / Orientation: awake, alert, oriented to person, oriented to place and oriented to time Speech: speech normal Psych affect normal Assessment & Plan Assessment/Plan (1) Cellulitis of left leg: PLAN: Plan Assessment: Left lower extremity cellulitis Tachycardia-resolved Fevers-improving Chronic anemia-normocytic Chronic thrombocytopenia Hypomagnesemia-resolved Alcoholic cirrhosis History of Wernicke's encephalopathy History of alcoholism-sober since 2020 GERD Esophageal varices Depression/anxiety Plan: -Continue Zosyn and vancomycin -Blood cultures remain pending -Fever curve improving and white count has trended down -Platelets down some from baseline of 50-70,000 -Currently 39,000-May be related to Zosyn use -Repeat in a.m.--> may need to consider switching to Levaquin as patient really does need pseudomonal coverage -Continue thiamine/folate Acid/nadolol/lactulose -Continue duloxetine and trazodone -Continue PPI Charges/Coding Visit Charges Inpatient E&M: 56468 Subs Hosp L2
[2022-07-15] MEDS: Nadolol 20 MG Tablet PO (10:29)
[2022-07-15] MEDS: Pantoprazole Sodium 40 MG Tablet PO ×2 (10:29→20:58)
[2022-07-15] MEDS: Thiamine Hydrochloride 100 MG Tablet PO (10:32)
[2022-07-15] MEDS: Gabapentin 100 MG Capsule PO ×2 (14:06→21:54)
[2022-07-15] MEDS: traZODone 50 MG Tablet 25 MG PO (20:56)
[2022-07-15] MEDS: MELATONIN 10 MG TABLET PO (20:56)
[2022-07-15] MEDS: DULoxetine Hcl 60 MG Capsule PO (20:57)
[2022-07-15] MEDS: 0.9% Saline Lock 10 ML Syringe IV (21:54)
[2022-07-16 04:27] LABS: Absolute Lymphocyte Count 0.75 X10^3/uL (0.83-4.51); Absolute Neutrophil Count 3.4 X10^3/uL (2.0-7.7); Basophil# 0.02 X10^3/uL; Basophil% 0.4 % (0-1); Differential Indicated SCAN CRITERIA MET; Eosinophil# 0.05 X10^3/uL; Eosinophils% 1.1 % (0-5); Hematocrit 28.7 % (37-47); Hemoglobin 9.2 g/dL (12.0-15.0); Lymphocyte # 0.75 X10^3/ul (0.83-4.51); Lymphocyte % 16.9 % (19-41); Mean Corp Hgb Conc 32.1 g/dL (32-36); Mean Corpuscular Hgb 29.7 pg (27.0-32.0); Mean Corpuscular Volume 92.6 fL (81-99); Mean Platelet Vol. 11.3 fl (6.2-12.0); Monocyte# 0.24 X10^3/uL; Monocyte% 5.4 % (0-10); NRBC Flagged by Analyzer 0 % (0-5); Neutrophil # 3.37 X10^3/uL (2.7-7.7); Neutrophil % 75.8 % (47-70); POSITIVE COUNT YES; Platelet Count 43 K/mm3 (150-450); RBC Distribution Width CV 15.5 % (11.6-14.6); RBC Distribution Width SD 52.8 fl (35.1-43.9); White Blood Count 4.5 K/mm3 (4.4-11.0)
[2022-07-16 04:44] LABS: Anisocytosis 1+; Platelet Estimate MKD DEC (ADEQ)
[2022-07-16] MEDS: Lactulose 20 GM/30 ML UDC 10 GM PO ×2 (05:24→17:49)
[2022-07-16] MEDS: Gabapentin 300 MG Capsule PO ×3 (05:24→22:03)
[2022-07-16] MEDS: Gabapentin 100 MG Capsule PO ×2 (07:28→17:50)
[2022-07-16] MEDS: Multivitamins,Therapeutic Tablet 1 TABLET PO (08:48)
[2022-07-16] MEDS: Folic Acid 1 MG Tablet PO (08:48)
[2022-07-16 10:30] VITALS: BP 97/61; PULSE 81; RESP 16; TEMP 36.7; O2SAT 98
[2022-07-16] MEDS: Thiamine Hydrochloride 100 MG Tablet PO (10:46)
[2022-07-16] MEDS: Nadolol 20 MG Tablet PO (10:46)
[2022-07-16] MEDS: Pantoprazole Sodium 40 MG Tablet PO ×2 (10:48→22:03)
--- NOTE | 2022-07-16 10:57 | PN.HOSP_ITS ---
Documented by User: Taylor Hankins NP, MANAGER TALENT ACQUISITION-C 07/16/22 11:02 Subjective Subjective Patient seen and examined. Denies further fever, chills. Left lower extremity with persistent redness, slowly improving. Patient states left lower extremity discomfort improving. Objective Data Objective Data Vital Signs: Vital Signs Temp Pulse Resp BP Pulse Ox O2 Del Method 98.1 F 81 16 97/61 98 Room Air 07/16/22 10:30 07/16/22 10:30 07/16/22 10:30 07/16/22 10:30 07/16/22 10:30 07/16/22 10:30 Oxygen Delivery Method Room Air Weight: 165 lb 12.602 oz Body Mass Index (BMI) 23.5 Intake & Output: Intake and Output for Last 24 Hours 07/14/22 07/15/22 07/16/22 23:59 23:59 23:59 Intake Total 4116.42 / 4116.42 4683.33 / 4683.33 117.5 / 117.5 Output Total 300 / 1100 2700 / 2700 Balance 3816.42 / 3016.42 1982.33 / 1982.33 117.5 / 117.5 Lab / Micro Data Result Diagrams: 07/16/22 04:10 07/15/22 05:55 Labs: Laboratory Results - last 24 hr 07/16/22 04:10: WBC 4.5, RBC 3.10 L, Hgb 9.2 L, Hct 28.7 L, MCV 92.6, MCH 29.7, MCHC 32.1, RDW Std Deviation 52.8 H, RDW Coeff of [place] 15.5 H, Plt Count 43 L*, MPV 11.3, Immature Gran % (Auto) 0.400, Neut % (Auto) 75.8 H, Lymph % (Auto) 16.9 L, [place] % (Auto) 5.4, Eos % (Auto) 1.1, Baso % (Auto) 0.4, Absolute Neuts (auto) 3.4, Absolute Lymphs (auto) 0.75 L, Nucleated RBC % 0, Diff Path Review March, Platelet Estimate MKD DEC, Anisocytosis 1+ Micro: Microbiology 07/13/22 19:20 Blood Culture (Wb) - Left Hand Blood Culture - Preliminary No growth in 48 hours. 07/13/22 19:20 Blood Culture (Wb) - Anticubital Left Blood Culture - Preliminary No growth in 48 hours. Physical Exam Const alert, oriented x3 and no apparent distress HEENT normocephalic and moist oral mucous membranes Eyes PERRL, EOMs intact bilaterally and conjunctivae normal Neck no lymphadenopathy Resp normal respiratory effort and clear to auscultation bilaterally Cardio regular rate, regular rhythm and no murmurs Peripheral Pulses: pulses 2+ throughout GI normal to inspection, nondistended, normoactive bowel sounds, non-tender and no n-distended Extremity normal to inspection Skin no rashes or lesions noted Skin Narrative: Left lower calf and thigh area erythema and warmth.? Improving. Lesions: no lesions Rashes: no rashes Trauma: no lacerations or abrasions Neuro CN's II-XII intact bilaterally, no focal motor deficits, no sensory deficits noted and deep tendon reflexes 2+ bilaterally Psych mental status grossly normal and affect normal Assessment & Plan Assessment/Plan (1) Cellulitis of left leg: PLAN: Plan 1.? Left lower extremity cellulitis-sepsis ruled out.? IV vancomycin and IV zosyn.? MRSA negative.? Blood cultures with no growth.? Clinically slowly improving. Elevate left lower extremity. Apply Ady wrap. 2. Recent [id number].? Improved.? Chest x-ray unremarkable. 3. Alcoholic cirrhosis with history of Warnicke's encephalopathy-follows with GI.? Continue thiamine, folic acid, nadolol, lactulose. 4. History of alcohol abuse-sober since 09/07. 5. Chronic normocytic anemia/thrombocytopenia-stable, trend CBC. 6. Anxiety/depression-on duloxetine, trazodone. 7. GERD-continue PPI. DVT prophylaxis-SCDs This patient was seen by TAMARA Doran under the supervision of Dr. Rolle. Time spent examining patient, reviewing data and subsequent management of care: 14 minutes Documented by User: Dr. Serena Rolle MD 07/16/22 12:39 Objective Data Lab / Micro Data Result Diagrams: 07/16/22 04:10 07/15/22 05:55 Assessment & Plan Assessment/Plan (1) Cellulitis of left leg: Charges/Coding Addendum Addendum: This patient was seen in conjunction with Taylor Hankins NP. I have independently interviewed and examined the patient and reviewed pertinent historical, laboratory, and other data. I have reviewed her note and concur with her documentation Patient was seen and examined. No more fevers overnight. She denied any diarrhea. She is eager to be discharged. Her left lower extremity erythema and differential warmth do not look any better than previous; maybe marginally improved. Physical Exam: Gen: Comfortable, not pale, not jaundiced CVS:HS I +II, regular, no murmurs RESP: Diminished at lung bases GI: BS present and normal, soft, nontender, no palpable organs EXT: Left lower extremity edema and erythema with differential warmth, present. Present circumferentially in the left lower extremity worse in the anterior lateral region ASSESSMENT: 1. Acute left lower extremity cellulitis 2. Alcoholic cirrhosis/Wernicke's encephalopathy 3. Chronic anemia 4. Chronic thrombocytopenia 5. Anxiety/depression 6. GERD Plan: Continue on IV vancomycin and Zosyn Continue to elevate the leg Stop IV fluid Trial of IV Lasix 40 mg x 1 Possible DC in a.m. Time spent reviewing patient's chart, discussing at the bedside with patient and her , coordinating all aspects of patient's care, discussing with nursin minutes Visit Charges Inpatient E&M: 89871 Subs Hosp L2
[2022-07-16] MEDS: Acetaminophen 325 MG Tablet 650 MG PO ×2 (11:59→20:40)
[2022-07-16 13:30] VITALS: BP 102/59; PULSE 74; RESP 16; TEMP 36.8; O2SAT 99
[2022-07-16] MEDS: Furosemide 40 MG/4 ML Vial IV (13:35)
[2022-07-16 15:04] VITALS: O2SAT 99
[2022-07-16 17:42] VITALS: BP 105/68; PULSE 67; RESP 18; TEMP 36.6; O2SAT 100
[2022-07-16] MEDS: 0.9% Saline Lock 10 ML Syringe IV (17:50)
[2022-07-16 21:15] VITALS: BP 118/69; PULSE 70; RESP 14; TEMP 36.9; O2SAT 100
[2022-07-16] MEDS: DULoxetine Hcl 60 MG Capsule PO (22:03)
[2022-07-16] MEDS: traZODone 50 MG Tablet 25 MG PO (22:03)
[2022-07-16] MEDS: MELATONIN 10 MG TABLET PO (22:03)
--- NOTE | 2022-07-17 00:03 | PCM.RX.CS ---
Consult Pharmacy has been consulted to manage selected antiobiotic: Vancomycin Type of Consult: Follow-up Labs: Sodium 139 mmol/L (136-145) 07/15/22 05:55 Potassium 3.7 mmol/L (3.5-5.1) 07/15/22 05:55 Chloride 113 mmol/L (98-107) H 07/15/22 05:55 Carbon Dioxide 19.0 mmol/L (21.0-32.0) L 07/15/22 05:55 Anion Gap 7 (5-15) 07/15/22 05:55 BUN 12 mg/dL (7-18) 07/15/22 05:55 Creatinine 0.70 mg/dL (0.55-1.02) 07/15/22 05:55 Est GFR (MDRD) Af Amer 113 mL/min (>60) 07/15/22 05:55 Est GFR (MDRD) Non-Af 93 mL/min (>60) 07/15/22 05:55 BUN/Creatinine Ratio 17.2 RATIO (10-20) 07/15/22 05:55 Glucose 115 mg/dL (74-106) H 07/15/22 05:55 Vancomycin Trough 15.0 ug/mL (5.0-15.0) 07/16/22 21:30 Microbiology: Microbiology 07/13/22 19:20 Blood Culture (Wb) - Left Hand Blood Culture - Preliminary No growth in 48 hours. 07/13/22 19:20 Blood Culture (Wb) - Anticubital Left Blood Culture - Preliminary No growth in 48 hours. Goal Trough: 10-15 mcg/mL Pharmacy Plan for Drug Dosing: Pharmacy Service will continue to monitor and adjust dosing as required. TROUGH 15 @ 11 HRS. NO CHANGES FOLLOW UP TROUGH IN 2 DAYS Follow-Up Labs: Trough Vancomycin Labs to be done on [date and time ordered]: 07/18 @ 1169
[2022-07-17 03:15] VITALS: BP 124/70; PULSE 69; RESP 12; TEMP 36.6; O2SAT 98
[2022-07-17] MEDS: Gabapentin 100 MG Capsule PO (03:26)
[2022-07-17 06:03] LABS: Absolute Lymphocyte Count 0.94 X10^3/uL (0.83-4.51); Absolute Neutrophil Count 1.9 X10^3/uL (2.0-7.7); Basophil# 0.02 X10^3/uL; Basophil% 0.6 % (0-1); Eosinophil# 0.05 X10^3/uL; Eosinophils% 1.6 % (0-5); Hematocrit 28.5 % (37-47); Hemoglobin 9.5 g/dL (12.0-15.0); Lymphocyte # 0.94 X10^3/ul (0.83-4.51); Mean Corp Hgb Conc 33.3 g/dL (32-36); Mean Corpuscular Hgb 30.3 pg (27.0-32.0); Mean Corpuscular Volume 90.8 fL (81-99); Mean Platelet Vol. 12.3 fl (6.2-12.0); Monocyte# 0.19 X10^3/uL; Monocyte% 6.1 % (0-10); NRBC Flagged by Analyzer 0 % (0-5); Neutrophil # 1.91 X10^3/uL (2.7-7.7); Neutrophil % 61.1 % (47-70); POSITIVE COUNT YES; RBC Distribution Width CV 15.3 % (11.6-14.6); Red Blood Count 3.14 M/mm3 (4.2-5.4); White Blood Count 3.1 K/mm3 (4.4-11.0)
[2022-07-17 06:08] LABS: Differential Indicated SCAN CRITERIA MET; Platelet Count 49 K/mm3 (150-450)
[2022-07-17] MEDS: Gabapentin 300 MG Capsule PO (06:10)
[2022-07-17 06:27] LABS: Differential Comment SCANNED; Platelet Estimate MKD DEC (ADEQ)
[2022-07-17 06:30] LABS: ALB/GLOB Ratio 0.6 RATIO (0.9-2.4); AST(SGOT) 27 U/L (15-37); Alanine Aminotransfer ALT/SGPT 29 U/L (13-56); Albumin, Serum 2.4 g/dL (3.2-5.0); Alkaline Phosphatase 74 U/L (45-117); Anion Gap 5 (5-15); BUN 11 mg/dL (7-18); BUN/Creat Ratio 16.4 RATIO (10-20); Calcium,Total 8.4 mg/dL (8.5-10.1); Chloride 119 mmol/L (98-107); Creatinine, Serum 0.67 mg/dL (0.55-1.02); EST Glomerular Filtration Rate 98 mL/min (>60); Est Glom Filt Rate - Afr Amer 119 mL/min (>60); Estimated Creatinine Clearance 106.21 ml/min; Globulin 4.3 g/dL (2.2-4.2); Glucose 100 mg/dL (74-106); Potassium 3.4 mmol/L (3.5-5.1); Protein, Total 6.7 g/dL (6.4-8.2); Sodium Level 144 mmol/L (136-145)
[2022-07-17 08:19] VITALS: BP 135/67; PULSE 72; RESP 18; TEMP 36.8; O2SAT 100
[2022-07-17] MEDS: Multivitamins,Therapeutic Tablet 1 TABLET PO (08:27)
[2022-07-17] MEDS: Folic Acid 1 MG Tablet PO (08:27)
[2022-07-17 08:52] LABS: Pathologist Review Reviewed
[2022-07-17 08:57] LABS: Pathologist Review Reviewed
[2022-07-17] MEDS: 0.9% Saline Lock 10 ML Syringe IV (10:56)
[2022-07-17] MEDS: Nadolol 20 MG Tablet PO (10:59)
[2022-07-17] MEDS: Pantoprazole Sodium 40 MG Tablet PO (10:59)
[2022-07-17] MEDS: Thiamine Hydrochloride 100 MG Tablet PO (11:00)
[2022-07-17] MEDS: Lactulose 20 GM/30 ML UDC 10 GM PO (11:00)
[2022-07-17] MEDS: Potassium Chloride Oral Tablet 20 MEQ 40 MEQ PO (11:03)
--- NOTE | 2022-07-17 11:41 | DCINST_ITS ---
Discharge Instructions Diet Discharge Diet: No restrictions Activity Discharge Activity: Return to Normal Activity Dressing / Incision Call your doctor if your incision/area has: Continuous Slow Oozing, Sudden Increased Bleeding, Increased Pain/ Swelling, Increased Redness and Foul Smelling Discharge Call your doctor if you observe: Fever of 101 or Higher Follow Up Care Test Results: Test results from this visit will be discussed in further detail at your follow- up appointment, if applicable. Discharge Plan Admission Admit Date/Time: 07/13/22 22:23 Primary Reason for Your Visit: Left lower extremity cellulitis Attending Provider: Serena Rolle Primary Care Provider: Christiane Mi Consulting Providers: Belén Angeles ; Ruth Borges Instructions Additional Instructions / Restrictions: Continue Adaptic pad to left lower extremity blistered areas followed by Kerlix and Ady wrap. Keep legs elevated. Discharge Orders/Prescriptions Prescriptions: New cephalexin 500 mg capsule 500 mg PO TID 7 Days Qty: 21 0RF levofloxacin 750 mg tablet 750 mg PO DAILY 7 Days Qty: 7 0RF Continued nadolol 20 mg tablet 20 mg PO ONCE Qty: 30 1RF gabapentin 300 mg Tablet 300 mg PO TID melatonin 10 mg Tablet 10 mg PO QHS folic acid 1 mg Tablet 1 mg PO DAILY multivitamin Capsule 1 cap PO DAILY trazodone 50 mg Tablet 25 mg PO MOTUWETHFRSA Rx Instructions: DONT TAKE ON SATURDAY thiamine HCl (vitamin B1) [Vitamin B-1] 100 mg Tablet 100 mg PO DAILY cholecalciferol (vitamin D3) [Vitamin D3] 125 mcg (5,000 unit) Tablet 125 mcg PO DAILY duloxetine 60 mg Capsule, Delayed Rel Sprinkle 60 mg PO QHS nadolol 20 mg tablet 20 mg PO DAILY Label Comments: TAKE 1 TABLET BY MOUTH IN THE MORNING pantoprazole 40 mg tablet,delayed release (DR/EC) 40 mg PO BID Qty: 60 2RF Rx Instructions: take two times a day for eight weeks then once a day lactulose 10 gram/15 mL (15 mL) solution 15 ml PO TID Qty: 750 2RF Referrals / Follow Up: Christiane Mi [Other] - Within 1 Week Disposition Disposition (needs filled in before D/C Order can be placed): Home, Self Care
--- NOTE | 2022-07-17 11:47 | PCM.DC.SUM ---
Documented by User: Taylor Hankins NP, [employer] 07/17/22 11:51 Providers Date of Admission: 07/13/22 Date of Discharge: 07/17/22 Primary Care Physician: Christiane Mi Reason For Visit: LLE CELLULITIS Diagnosis Discharge Diagnosis (1) Cellulitis of left leg: Status: Acute Code(s): L03.116 - Cellulitis of left lower limb Medications at Discharge Home Medications gabapentin 300 mg tablet 300 mg PO TID 03/05/22 melatonin 10 mg tablet 10 mg PO QHS 03/05/22 cholecalciferol (vitamin D3) 125 mcg (5,000 unit) tablet (Vitamin D3) 125 mcg PO DAILY 04/04/22 duloxetine 60 mg capsule,delayed release sprinkle 60 mg PO QHS 04/04/22 folic acid 1 mg tablet 1 mg PO DAILY 04/04/22 multivitamin 1 cap PO DAILY 04/04/22 thiamine HCl (vitamin B1) 100 mg tablet (Vitamin B-1) 100 mg PO DAILY 04/04/22 trazodone 50 mg tablet 25 mg PO MOTUWETHFRSA SLEEP 04/04/22 pantoprazole 40 mg tablet,delayed release 40 mg PO BID #60 tabs 04/06/22 nadolol 20 mg tablet 20 mg PO ONCE #30 tabs 06/04/22 lactulose 10 gram/15 mL (15 mL) oral solution 15 ml PO TID #750 mL 07/06/22 nadolol 20 mg tablet 20 mg PO DAILY UNK 07/14/22 cephalexin 500 mg capsule 500 mg PO TID 7 days #21 caps 07/17/22 levofloxacin 750 mg tablet 750 mg PO DAILY 7 days #7 tabs 07/17/22 Hospital Course Operations None Procedures None Summary of Care Provided Hospital Course: Patient is a 52-year-old female admitted 07/13/2022 due to fever and left lower extremity redness. 1.? Left lower extremity cellulitis-sepsis ruled out.? IV vancomycin and IV zosyn during admission.? MRSA negative.? Blood cultures with no growth.? Discharged home with Keflex and Levaquin to complete course. Follow-up with PCP within 1 week. Instructed on continuing Curlex and Ady wrap left lower extremity and elevation with rest. 2. Recent [id number].? Chest x-ray unremarkable. Symptoms resolved. 3. Alcoholic cirrhosis with history of Warnicke's encephalopathy-follows with GI.? Continue thiamine, folic acid, nadolol, lactulose. 4. History of alcohol abuse-sober since 09/07. 5. Chronic normocytic anemia/thrombocytopenia-stable. 6. Anxiety/depression-on duloxetine, trazodone. 7. GERD-continue PPI. Physical Exam Const alert, oriented x3 and no apparent distress HEENT normocephalic and moist oral mucous membranes Eyes PERRL, EOMs intact bilaterally and conjunctivae normal Neck no lymphadenopathy Resp normal respiratory effort and clear to auscultation bilaterally Cardio regular rate, regular rhythm and no murmurs Peripheral Pulses: pulses 2+ throughout GI normal to inspection, nondistended, normoactive bowel sounds, non-tender and non-distended Extremity normal to inspection Skin no rashes or lesions noted Skin Narrative: Left lower calf and thigh area erythema and warmth.? Improving. 2 bullous blistered areas left anterior calf area. Lesions: no lesions Rashes: no rashes Trauma: no lacerations or abrasions Neuro CN's II-XII intact bilaterally, no focal motor deficits, no sensory deficits noted and deep tendon reflexes 2+ bilaterally Psych mental status grossly normal and affect normal Patient seen and examined prior to discharge. Physical assessment as noted above. Patient is stable for discharge with follow up recommendations as noted above. This patient was seen by TAMARA Doran under the supervision of Dr. Rolle. Time spent examining patient, reviewing data and subsequent management of care: 23 minutes Weight / BMI Weight Weight: 165 lb 9.074 oz Body Mass Index (BMI) 23.5 ABG / Lab / Microbiology Data Result Diagrams: 07/17/22 05:27 07/17/22 05:27 Laboratory: Laboratory Results - last 24 hr 07/15/22 05:55: Diff Path Review Reviewed 07/16/22 04:10: Diff Path Review Reviewed 07/16/22 21:30: Vancomycin Trough 15.0 07/17/22 05:27: WBC 3.1 L, RBC 3.14 L, Hgb 9.5 L, Hct 28.5 L, MCV 90.8, MCH 30.3, MCHC 33.3, RDW Std Deviation 51.0 H, RDW Coeff of Pepito 15.3 H, Plt Count 49 L*, MPV 12.3 H, Immature Gran % (Auto) 0.600, Neut % (Auto) 61.1, Lymph % (Auto) 30.0, Crockett % (Auto) 6.1, Eos % (Auto) 1.6, Baso % (Auto) 0.6, Absolute Neuts (auto) 1.9 L, Absolute Lymphs (auto) 0.94, Nucleated RBC % 0, Differential Comment SCANNED, Diff Path Review March, Platelet Estimate MKD 07/17/22 05:27: Sodium 144, Potassium 3.4 L, Chloride 119 H, Carbon Dioxide 20.0 L, Anion Gap 5, BUN 11, Creatinine 0.67, Estim Creat Clear Calc 106.21, Est GFR (MDRD) Af Amer 119, Est GFR (MDRD) Non-Af 98, BUN/Creatinine Ratio 16.4, Glucose 100, Calcium 8.4 L, Total Bilirubin 0.90, AST 27, ALT 29, Alkaline Phosphatase 74, Total Protein 6.7, Albumin 2.4 L, Globulin 4.3 H, Albumin/Globulin Ratio 0.6 L Microbiology: Microbiology 07/13/22 19:20 Blood Culture (Wb) - Left Hand Blood Culture - Preliminary No growth in 48 hours. 07/13/22 19:20 Blood Culture (Wb) - Anticubital Left Blood Culture - Preliminary No growth in 48 hours. D/C Instructions Discharge Diet: No restrictions Call your doctor if your incision/area has: Continuous Slow Oozing, Sudden Increased Bleeding, Increased Pain/ Swelling, Increased Redness and Foul Smelling Discharge Call your doctor if you observe: Fever of 101 or Higher Meaningful Use Info Meaningful Use Diagnoses (Choose all that apply): None applicable Discharge Plan Admission Admit Date/Time: 07/13/22 22:23 Primary Reason for Your Visit: Left lower extremity cellulitis Attending Provider: Serena Rolle Primary Care Provider: Christiane Mi Consulting Providers: Belén Angeles ; Ruth Borges Instructions Additional Instructions / Restrictions: Continue Adaptic pad to left lower extremity blistered areas followed by Kerlix and Ady wrap. Keep legs elevated. Discharge Orders/Prescriptions Prescriptions: New cephalexin 500 mg capsule 500 mg PO TID 7 Days Qty: 21 0RF levofloxacin 750 mg tablet 750 mg PO DAILY 7 Days Qty: 7 0RF Continued nadolol 20 mg tablet 20 mg PO ONCE Qty: 30 1RF gabapentin 300 mg Tablet 300 mg PO TID melatonin 10 mg Tablet 10 mg PO QHS folic acid 1 mg Tablet 1 mg PO DAILY multivitamin Capsule 1 cap PO DAILY trazodone 50 mg Tablet 25 mg PO MOTUWETHFRSA Rx Instructions: DONT TAKE ON SATURDAY thiamine HCl (vitamin B1) [Vitamin B-1] 100 mg Tablet 100 mg PO DAILY cholecalciferol (vitamin D3) [Vitamin D3] 125 mcg (5,000 unit) Tablet 125 mcg PO DAILY duloxetine 60 mg Capsule, Delayed Rel Sprinkle 60 mg PO QHS nadolol 20 mg tablet 20 mg PO DAILY Label Comments: TAKE 1 TABLET BY MOUTH IN THE MORNING pantoprazole 40 mg tablet,delayed release (DR/EC) 40 mg PO BID Qty: 60 2RF Rx Instructions: take two times a day for eight weeks then once a day lactulose 10 gram/15 mL (15 mL) solution 15 ml PO TID Qty: 750 2RF Referrals / Follow Up: Christiane Mi [Other] - 07/24/22 3:50 pm Disposition Disposition (needs filled in before D/C Order can be placed): Home, Self Care Documented by User: Dr. Serena Rolle MD 07/17/22 12:15 Providers Date of Admission: 07/13/22 Reason For Visit: LLE CELLULITIS Diagnosis Discharge Diagnosis (1) Cellulitis of left leg: Status: Acute Code(s): L03.116 - Cellulitis of left lower limb Medications at Discharge Home Medications gabapentin 300 mg tablet 300 mg PO TID 03/05/22 melatonin 10 mg tablet 10 mg PO QHS 03/05/22 cholecalciferol (vitamin D3) 125 mcg (5,000 unit) tablet (Vitamin D3) 125 mcg PO DAILY 04/04/22 duloxetine 60 mg capsule,delayed release sprinkle 60 mg PO QHS 04/04/22 folic acid 1 mg tablet 1 mg PO DAILY 04/04/22 multivitamin 1 cap PO DAILY 04/04/22 thiamine HCl (vitamin B1) 100 mg tablet (Vitamin B-1) 100 mg PO DAILY 04/04/22 trazodone 50 mg tablet 25 mg PO MOTUWETHFRSA SLEEP 04/04/22 pantoprazole 40 mg tablet,delayed release 40 mg PO BID #60 tabs 04/06/22 nadolol 20 mg tablet 20 mg PO ONCE #30 tabs 06/04/22 lactulose 10 gram/15 mL (15 mL) oral solution 15 ml PO TID #750 mL 07/06/22 nadolol 20 mg tablet 20 mg PO DAILY UNK 07/14/22 cephalexin 500 mg capsule 500 mg PO TID 7 days #21 caps 07/17/22 levofloxacin 750 mg tablet 750 mg PO DAILY 7 days #7 tabs 07/17/22 ABG / Lab / Microbiology Data Result Diagrams: 07/17/22 05:27 07/17/22 05:27 Discharge Plan Admission Admit Date/Time: 07/13/22 22:23 Primary Reason for Your Visit: Left lower extremity cellulitis Attending Provider: Serena Rolle Primary Care Provider: Christiane Mi Consulting Providers: Belén Angeles ; Ruth Borges Instructions Additional Instructions / Restrictions: Continue Adaptic pad to left lower extremity blistered areas followed by Kerlix and Ady wrap. Keep legs elevated. Discharge Orders/Prescriptions Prescriptions: New cephalexin 500 mg capsule 500 mg PO TID 7 Days Qty: 21 0RF levofloxacin 750 mg tablet 750 mg PO DAILY 7 Days Qty: 7 0RF Continued nadolol 20 mg tablet 20 mg PO ONCE Qty: 30 1RF gabapentin 300 mg Tablet 300 mg PO TID melatonin 10 mg Tablet 10 mg PO QHS folic acid 1 mg Tablet 1 mg PO DAILY multivitamin Capsule 1 cap PO DAILY trazodone 50 mg Tablet 25 mg PO MOTUWETHFRSA Rx Instructions: DONT TAKE ON SATURDAY thiamine HCl (vitamin B1) [Vitamin B-1] 100 mg Tablet 100 mg PO DAILY cholecalciferol (vitamin D3) [Vitamin D3] 125 mcg (5,000 unit) Tablet 125 mcg PO DAILY duloxetine 60 mg Capsule, Delayed Rel Sprinkle 60 mg PO QHS nadolol 20 mg tablet 20 mg PO DAILY Label Comments: TAKE 1 TABLET BY MOUTH IN THE MORNING pantoprazole 40 mg tablet,delayed release (DR/EC) 40 mg PO BID Qty: 60 2RF Rx Instructions: take two times a day for eight weeks then once a day lactulose 10 gram/15 mL (15 mL) solution 15 ml PO TID Qty: 750 2RF Referrals / Follow Up: Shmuel, Christiane [Other] - 07/24/22 3:50 pm Disposition Disposition (needs filled in before D/C Order can be placed): Home, Self Care Charges/Coding Addendum Addendum: This patient was seen in conjunction with Taylor Hankins NP.? I have independently interviewed and examined the patient and reviewed pertinent historical, laboratory, and other data. I have reviewed her note and concur with her documentation -year-old female with past medical history of alcoholic liver cirrhosis, Warnicke's encephalopathy, anxiety/depression who comes in with fever or chills, sore throat and left lower extremity erythema and swelling. COVID test was negative. Patient was admitted with left lower extremity cellulitis. She was started on IV vancomycin and Zosyn. Patient gradually continued to improve in terms of erythema and swelling. She was just on Keflex and Levaquin to complete 10 days of antibiotics. On the day of discharge, patient was seen and examined. Denied any new complaints. She was eager to be discharged. Left leg erythema and swelling is improved. Physical Exam: Gen: Comfortable, not pale, not jaundiced CVS:HS I +II, regular, no murmurs RESP: Diminished at lung bases GI: BS present and normal, soft, nontender, no palpable organs EXT: Left lower extremity edema and erythema with differential warmth, present, appeared slightly improved.?Erythema in posterior leg with mild blister formation. Time spent reviewing patient's chart, discussing at the bedside with patient and her , coordinating all aspects of patient's care, discussing with nursin minutes Visit Charges Inpatient E&M: 17122 Disch Hosp
[2022-07-17 13:17] VITALS: BP 115/70; PULSE 75; RESP 18; TEMP 36.7; O2SAT 100
[2022-07-17 13:28] LABS: Pathologist Review Reviewed
== END 2022-07-17 13:47 | disposition home or self-care (01) | DRG 603 ==
LOC: ED 22:06 → MS3 22:36
PROVIDERS: Internal Medicine; Nurse Practitioner Family; Admitting Provider Family Medicine; Emergency Provider Emergency Medicine; Visit Provider Internal Medicine
DX: L03.116 Cellulitis of left lower limb (principal); D63.8 Anemia in other chronic diseases classified elsewhere; D69.6 Thrombocytopenia, unspecified; K70.10 Alcoholic hepatitis without ascites; K70.30 Alcoholic cirrhosis of liver without ascites; H53.149 Visual discomfort, unspecified; E83.42 Hypomagnesemia; F41.9 Anxiety disorder, unspecified; F10.11 Alcohol abuse, in remission; K21.9 Gastro-esophageal reflux disease without esophagitis; F32.A Depression, unspecified; Z87.891 Personal history of nicotine dependence; Z20.822 Contact with and (suspected) exposure to COVID-19; Z79.899 Other long term (current) drug therapy
CPT/HCPCS: 36415; 71045; 80053; 80202; 81001; 83605; 83735; 84100; 85025; 85610; 85730; 87040; 87641; 93005; 99251; 99284; J7030; J7040; J7050; A4216; G0463; J0295; J1940; J2405

== ENCOUNTER 2022-08-07 23:07 | Emergency (ER) | payer OTHER, SELFPAY ==
[2022-08-07 23:08] VITALS: BP 130/80; PULSE 77; RESP 15; TEMP 36.3; O2SAT 100; BMI 22.2
--- NOTE | 2022-08-07 23:28 | EX.ED.GENINJ ---
HPI History of Present Illness Chief Complaint: Other, Pain/Inj Informant: patient and spouse/S.O. Narrative Narrative: Patient presents with exacerbation of her chronic neuropathy. She states she always has numbness tingling in her feet. She states it feels like people are pressing at thousand needles in the soles of her feet. The rest of her legs feel normal. She states she cannot imagine what cause this to worsen. There is nothing new or different. However, when I asked her who she is seen for this I find out she saw chiropractor. I found out just yesterday she had laser treatment on the bottom of her feet at the chiropractor. She had never had this laser treatment before. Her symptoms are worse less than 24 hours after a new therapy was attempted. I think this alone might be a contributing feature. She has no fevers or chills. She is not having back pain. Its only the soles of her feet that are bothering her and its more the left than the right. She is on gabapentin for this. [facility] Medical History Abnormal liver function test Alcohol abuse Alcohol use Alcoholic hepatitis Anemia Anxiety Cardiology follow-up encounter Chronic pain Cirrhosis of liver Gastric reflux GERD (gastroesophageal reflux disease) History of Clostridium difficile infection History of edema History of pain when walking Leg cramps Migraine headache Neuropathy Non-smoker Non-smoker Post-menopausal Splenomegaly Syncope Walker as ambulation aid Wears glasses Wernickes encephalopathy Home Medications gabapentin 300 mg tablet 300 mg PO TID 03/05/22 [History Last Taken 04/05/22 05:00] melatonin 10 mg tablet 10 mg PO QHS 03/05/22 [History Last Taken Unknown] cholecalciferol (vitamin D3) 125 mcg (5,000 unit) tablet (Vitamin D3) 125 mcg PO DAILY 04/04/22 [History Last Taken Unknown] duloxetine 60 mg capsule,delayed release sprinkle 60 mg PO QHS 04/04/22 [History Last Taken Unknown] folic acid 1 mg tablet 1 mg PO DAILY 04/04/22 [History Last Taken Unknown] multivitamin 1 cap PO DAILY 04/04/22 [History Last Taken Unknown] thiamine HCl (vitamin B1) 100 mg tablet (Vitamin B-1) 100 mg PO DAILY 04/04/22 [History Last Taken Unknown] trazodone 50 mg tablet 25 mg PO MOTUWETHFRSA SLEEP 04/04/22 [History Last Taken Unknown] cephalexin 500 mg capsule 500 mg PO TID 7 days #21 caps 07/17/22 [Rx Last Taken Unknown] levofloxacin 750 mg tablet 750 mg PO DAILY 7 days #7 tabs 07/17/22 [Rx Last Taken Unknown] lactulose 10 gram/15 mL (15 mL) oral solution 15 ml PO TID #750 mL 07/24/22 [Rx Last Taken Unknown] nadolol 20 mg tablet 20 mg PO DAILY #30 tabs 08/03/22 [Rx Last Taken Unknown] pantoprazole 40 mg tablet,delayed release 40 mg PO DAILY #30 tabs 08/03/22 [Rx Last Taken Unknown] Allergy/AdvReac Type Severity Reaction Status Date / Time No Known Allergies Allergy Verified 08/07/22 23:11 Family History Mother Dementia Father Diabetes Surgical History History of liver biopsy History of tonsillectomy and adenoidectomy Social History household members: spouse Smoking Status: Never smoker alcohol intake: former year quit: 2020 substance use type: does not use ROS ROS ED Constitutional Constitutional ED: Denies chills or fever(s) ENT ENT ED: Denies sore throat Cardiovascular Cardiovascular: Denies chest pain or palpitations Respiratory/Chest Respiratory/Chest: Denies cough or dyspnea Gastrointestinal Gastrointestinal: Denies abdominal pain, nausea or vomiting Genitourinary Genitourinary ED: Denies dysuria Musculoskeletal Musculoskeletal: Reports other Details: See history of present illness peer ; Denies back pain or neck pain Integumentary Denies rash Neurologic Neurologic: Reports paresthesias and other Details: See history of present illness peer Endocrine Endocrinology: Denies polydipsia or polyuria Hematologic/Lymphatic Hematologic/Lymphatic: Denies easy bleeding or easy bruising Allergic/Immunologic Allergic/Immunologic ED: Denies urticaria EXAM Physical Exam Const Vital Signs: 08/07/22 23:08 Temperature 97.4 F L Temperature Source Temporal Pulse Rate 77 Respiratory Rate 15 Blood Pressure 130/80 H Blood Pressure Mean 96 Pulse Ox 100 Oxygen Delivery Method Room Air Positive well nourished and well developed General Appearance ED: well developed and NAD HEENT atraumatic Chest Wall inspection of chest normal Resp normal respiratory effort and clear to auscultation bilaterally Cardio regular rhythm and no murmurs GI GI Narrative: Patient is abdomen is mildly prominent but does not have a significant fluid wave at this time. It is totally nontender. Palpation: soft Back/Spine Back/Spine Narrative: No lumbar tenderness. Thoracic Spine / Upper Back: Negative for thoracic spinal tenderness Extremity Extremity Narrative: Legs do have some mild chronic hemosiderin deposits. There is no edema. She has excellent peripheral pulses x4. Capillary refill is intact. She does have hypersensitivity to soft touch at the soles of her feet mostly on the left. There is no sign of ischemia. Neuro Neuro Narrative: Paresthesias of both feet. Psych mental status grossly normal Skin no rashes or lesions noted MDM MDM MDM Narrative Medical decision making narrative: I explained that I cannot cure her neuropathy. Gabapentin is reasonable therapy. But it is a very difficult to manage condition. She likely has an exacerbation related to laser therapy to the bottom of her feet. She should contact the chiropractor to see if this is an expected occurrence. I will give her a dose of pain meds here tonight. We discussed reasons to return. Discharge Plan Triage Chief Complaint: Other, Pain/Inj ED Provider: Bola Perez Dx/Rx/DC Orders Clinical Impression: Peripheral neuropathy Instructions: ED Neuropathy, Peripheral Prescriptions: No Action gabapentin 300 mg Tablet 300 mg PO TID melatonin 10 mg Tablet 10 mg PO QHS folic acid 1 mg Tablet 1 mg PO DAILY multivitamin Capsule 1 cap PO DAILY trazodone 50 mg Tablet 25 mg PO MOTUWETHFRSA Rx Instructions: DONT TAKE ON SATURDAY thiamine HCl (vitamin B1) [Vitamin B-1] 100 mg Tablet 100 mg PO DAILY cholecalciferol (vitamin D3) [Vitamin D3] 125 mcg (5,000 unit) Tablet 125 mcg PO DAILY duloxetine 60 mg Capsule, Delayed Rel Sprinkle 60 mg PO QHS cephalexin 500 mg capsule 500 mg PO TID 7 Days Qty: 21 0RF levofloxacin 750 mg tablet 750 mg PO DAILY 7 Days Qty: 7 0RF lactulose 10 gram/15 mL (15 mL) solution 15 ml PO TID Qty: 750 2RF pantoprazole 40 mg tablet,delayed release (DR/EC) 40 mg PO DAILY Qty: 30 2RF nadolol 20 mg tablet 20 mg PO DAILY Qty: 30 11RF Primary Care Provider: Christiane Mi Referrals: Christiane Mi [Other] - 3-5 Days if not improving Activity Restrictions/Additional Instructions: Contact your chiropractor in the morning to discuss expected course after laser therapy to your feet. Disposition Disposition: Home, Self Care Discharge Date/Time: 08/07/22 23:40
[2022-08-07] MEDS: oxyCODONE 5 MG Tablet PO (23:32)
== END 2022-08-07 23:40 | disposition home or self-care (01) ==
PROVIDERS: Emergency Provider Emergency Medicine; Visit Provider Emergency Medicine
DX: G62.9 Polyneuropathy, unspecified (principal); Z79.899 Other long term (current) drug therapy
CPT/HCPCS: 99283

== ENCOUNTER 2022-08-12 21:51 | Emergency (ER) | payer OTHER, SELFPAY ==
[2022-08-12 21:52] VITALS: BP 135/81; PULSE 77; RESP 16; TEMP 36.1; O2SAT 100; BMI 23.8
[2022-08-12 21:55] VITALS: BP 135/81; PULSE 77; RESP 16; TEMP 36.1; O2SAT 100
--- NOTE | 2022-08-12 22:14 | EDS_ITS ---
HPI History of Present Illness Chief Complaint: Lower Extremity Injury Narrative Narrative: 52-year-old female with chronic peripheral neuropathy of the bilateral feet. She is having exacerbation of this. Patient was seen in ER previously after she had laser treatment to the feet by her chiropractor. This caused an acute episode of flare in pain. She is on gabapentin. This is provided to her by her primary care doctor. After this is prescribed she has not been back to the doctor to tell her that its not working all of the time. She has not adjusted and dosed with did not primary care doctor. She has not requested a pain management referral. She denies any trauma. She states that she was doing well after previous episode when she received 1 oxycodone in the ER. Today she walked around shopping and her feet hurt. She does not like narcotic pain medication. [facility] Medical History Abnormal liver function test Alcohol abuse Alcohol use Alcoholic hepatitis Anemia Anxiety Cardiology follow-up encounter Chronic pain Cirrhosis of liver Gastric reflux GERD (gastroesophageal reflux disease) History of Clostridium difficile infection History of edema History of pain when walking Leg cramps Migraine headache Neuropathy Non-smoker Non-smoker Post-menopausal Splenomegaly Syncope Walker as ambulation aid Wears glasses Wernickes encephalopathy Home Medications gabapentin 300 mg tablet 300 mg PO TID 03/05/22 [History Last Taken 04/05/22 05:00] melatonin 10 mg tablet 10 mg PO QHS 03/05/22 [History Last Taken Unknown] cholecalciferol (vitamin D3) 125 mcg (5,000 unit) tablet (Vitamin D3) 125 mcg PO DAILY 04/04/22 [History Last Taken Unknown] duloxetine 60 mg capsule,delayed release sprinkle 60 mg PO QHS 04/04/22 [History Last Taken Unknown] folic acid 1 mg tablet 1 mg PO DAILY 04/04/22 [History Last Taken Unknown] multivitamin 1 cap PO DAILY 04/04/22 [History Last Taken Unknown] thiamine HCl (vitamin B1) 100 mg tablet (Vitamin B-1) 100 mg PO DAILY 04/04/22 [History Last Taken Unknown] trazodone 50 mg tablet 25 mg PO MOTUWETHFRSA SLEEP 04/04/22 [History Last Taken Unknown] cephalexin 500 mg capsule 500 mg PO TID 7 days #21 caps 07/17/22 [Rx Last Taken Unknown] levofloxacin 750 mg tablet 750 mg PO DAILY 7 days #7 tabs 07/17/22 [Rx Last Taken Unknown] lactulose 10 gram/15 mL (15 mL) oral solution 15 ml PO TID #750 mL 07/24/22 [Rx Last Taken Unknown] nadolol 20 mg tablet 20 mg PO DAILY #30 tabs 08/03/22 [Rx Last Taken Unknown] pantoprazole 40 mg tablet,delayed release 40 mg PO DAILY #30 tabs 08/03/22 [Rx Last Taken Unknown] Allergy/AdvReac Type Severity Reaction Status Date / Time No Known Allergies Allergy Verified 08/07/22 23:11 Family History Mother Dementia Father Diabetes Surgical History History of liver biopsy History of tonsillectomy and adenoidectomy Social History household members: spouse Smoking Status: Never smoker alcohol intake: former year quit: 2020 substance use type: does not use ROS ROS ED Constitutional Constitutional ED: Denies chills or fever(s) Eyes Eyes: Denies change in vision or diplopia ENT ENT ED: Denies rhinorrhea or sore throat Cardiovascular Cardiovascular: Denies chest pain or palpitations Respiratory/Chest Respiratory/Chest: Denies cough or dyspnea Gastrointestinal Gastrointestinal: Denies abdominal pain or constipation Genitourinary Genitourinary ED: Denies dysuria or hematuria Musculoskeletal Musculoskeletal: Reports other Details: Bilateral foot pain ; Denies arthralgias or back pain Integumentary Denies abscess or Abrasions Neurologic Neurologic: Reports other Details: Pain and tingling to the bilateral feet. ; Denies headache(s) EXAM Physical Exam Const Vital Signs: 08/12/22 21:52 08/12/22 21:55 Temperature 97.0 F L 97.0 F L Temperature Source Temporal Temporal Pulse Rate 77 77 Respiratory Rate 16 16 Blood Pressure 135/81 H 135/81 H Blood Pressure Mean 99 99 Pulse Ox 100 100 Oxygen Delivery Method Room Air Room Air Positive well nourished General Appearance ED: NAD HEENT Reports moist mucous membranes normocephalic and atraumatic Eyes PERRL Neck full ROM Resp normal respiratory effort Cardio regular rate and regular rhythm Extremity Extremity Narrative: Tenderness palpation diffusely over the bilateral feet. No erythema, swelling, bruising, edema. Bilateral feet have 2+ pedal pulses. Brisk cap refill to all 10 toes. No bony deformities. Neuro oriented x3 and CN's II-XII intact bilaterally Sensorium / Orientation: alert Motor Exam: strength 5/5 throughout Skin no wounds Lesions: no lesions Rashes: no rashes MDM MDM MDM Narrative Medical decision making narrative: Patient presenting with an a flareup of her chronic foot pain/neuropathy. She is on gabapentin. She states that typically this has been helpful but she has episodes that her feet flareup and hurt more. She saw chiropractor previously who did laser therapy on her feet and this caused an exacerbation of her foot pain. She was seen in the ER and given 1 oxycodone which she states that lasted for about 24 hours and she felt better. She has periodically had pain episodes. She has not been back to her primary care doctor to adjust medications or even to tell her primary care doctor that she is not pain-free. I do not believe she needs any imaging or blood work. There is no evidence of cellulitis or bony trauma. Her pulses are normal. Her feet are pink and warm. She request 1 oxycodone from the ER to help her with her pain. She does not want a prescription because she does not like opioids. She will call her primary care physician tomorrow to set up an appointment. Impression: 1. Acute flareup of chronic neuropathy Lab Data Attestation: I reviewed the patient's lab results. Discharge Plan Triage Chief Complaint: Lower Extremity Injury ED Provider: Darrian Singh Dx/Rx/DC Orders Instructions: ED Neuropathy, Peripheral Prescriptions: No Action gabapentin 300 mg Tablet 300 mg PO TID melatonin 10 mg Tablet 10 mg PO QHS folic acid 1 mg Tablet 1 mg PO DAILY multivitamin Capsule 1 cap PO DAILY trazodone 50 mg Tablet 25 mg PO MOTUWETHFRSA Rx Instructions: DONT TAKE ON SATURDAY thiamine HCl (vitamin B1) [Vitamin B-1] 100 mg Tablet 100 mg PO DAILY cholecalciferol (vitamin D3) [Vitamin D3] 125 mcg (5,000 unit) Tablet 125 mcg PO DAILY duloxetine 60 mg Capsule, Delayed Rel Sprinkle 60 mg PO QHS cephalexin 500 mg capsule 500 mg PO TID 7 Days Qty: 21 0RF levofloxacin 750 mg tablet 750 mg PO DAILY 7 Days Qty: 7 0RF lactulose 10 gram/15 mL (15 mL) solution 15 ml PO TID Qty: 750 2RF pantoprazole 40 mg tablet,delayed release (DR/EC) 40 mg PO DAILY Qty: 30 2RF nadolol 20 mg tablet 20 mg PO DAILY Qty: 30 11RF Primary Care Provider: ROBERT PEARSON Referrals: [facility] Doctor,Out of [Non-Staff] - Disposition Disposition: Home, Self Care
[2022-08-12] MEDS: oxyCODONE 5 MG Tablet PO (22:17)
[2022-08-12 22:29] VITALS: BP 125/74; PULSE 85; RESP 15; O2SAT 98
== END 2022-08-12 22:30 | disposition home or self-care (01) ==
LOC: ED 22:17
PROVIDERS: Emergency Provider Student in an Organized Health Care Education/Training Program; Visit Provider Student in an Organized Health Care Education/Training Program
DX: G62.9 Polyneuropathy, unspecified (principal); G89.29 Other chronic pain; F10.10 Alcohol abuse, uncomplicated; Y90.9 Presence of alcohol in blood, level not specified; Z79.899 Other long term (current) drug therapy
CPT/HCPCS: 99282

== ENCOUNTER 2022-09-02 19:23 | Emergency (ER) | payer OTHER, SELFPAY ==
[2022-09-02 19:24] VITALS: BP 126/92; PULSE 68; RESP 16; TEMP 36.4; O2SAT 100; BMI 23.2
--- NOTE | 2022-09-02 19:48 | EKG12_ITS ---
Test Reason : GENERAL Blood Pressure : / mmHG Vent. Rate : 075 BPM Atrial Rate : 075 BPM P-R Int : 148 ms QRS Dur : 094 ms QT Int : 390 ms P-R-T Axes : 040 042 049 degrees QTc Int : 435 ms Normal sinus rhythm Possible Left atrial enlargement Borderline ECG Confirmed by GIANLUCA HERNANDEZ, YOVANA ([id number]), editor managing director JAMISON GOODEN ([id number]) on 09/04/2022 8:21:22 AM Referred By: Confirmed By:YOVANA HOUGH MD
--- NOTE | 2022-09-02 19:49 | CT_ITS ---
We are attempting to reach an attending provider to discuss findings. An addendum with communication details will be sent when the communication is complete. EXAM: CT ANGIOGRAPHY HEAD AND NECK WITH INTRAVENOUS CONTRAST CLINICAL INDICATION: diplopia, ataxia, posterior headache TECHNIQUE: [place]/head and neck CT angiography protocol performed with intravenous contrast. This CT exam was performed using one or more of the following dose reduction techniques: automated exposure control, adjustment of the mA and/or kV according to patient size, and/or use of iterative reconstruction technique. This report was created using [employer] report generation technology. MIP reconstructed images were created and reviewed. CONTRAST: IV 100mL Isovue-370 RADIATION DOSE: CTDIvol = 30.65 mGy, DLP = 1571.21 mGy-cm COMPARISON: None. FINDINGS: HEAD: RIGHT ANTERIOR CEREBRAL ARTERY: Unremarkable. No significant stenosis at the visualized segments. Anterior communicating artery is present. No aneurysm. RIGHT MIDDLE CEREBRAL ARTERY: Unremarkable. No significant stenosis at the visualized segments. No aneurysm. RIGHT POSTERIOR CEREBRAL ARTERY: Unremarkable. No occlusion or significant stenosis. No aneurysm. RIGHT INTRACRANIAL INTERNAL CAROTID ARTERY: Unremarkable. No significant stenosis. No dissection or occlusion. RIGHT INTRACRANIAL VERTEBRAL ARTERY: Unremarkable. No significant stenosis. No dissection or occlusion. LEFT ANTERIOR CEREBRAL ARTERY: Unremarkable. No significant stenosis at the visualized segments. No aneurysm. LEFT MIDDLE CEREBRAL ARTERY: Unremarkable. No significant stenosis at the visualized segments. No aneurysm. LEFT POSTERIOR CEREBRAL ARTERY: Unremarkable. No occlusion or significant stenosis. No aneurysm. LEFT INTRACRANIAL INTERNAL CAROTID ARTERY: Unremarkable. No significant stenosis. No dissection or occlusion. LEFT INTRACRANIAL VERTEBRAL ARTERY: Unremarkable. No significant stenosis. No dissection or occlusion. BASILAR ARTERY: Unremarkable. No significant stenosis. No aneurysm. OTHER VASCULATURE: No vascular malformation. NECK: RIGHT COMMON CAROTID ARTERY: Unremarkable. No significant stenosis. No dissection or occlusion. RIGHT EXTRACRANIAL INTERNAL CAROTID ARTERY: Unremarkable. No significant stenosis. No dissection or occlusion. RIGHT EXTERNAL CAROTID ARTERY: Unremarkable. No occlusion. RIGHT EXTRACRANIAL VERTEBRAL ARTERY: Unremarkable. No significant stenosis. No dissection or occlusion. LEFT COMMON CAROTID ARTERY: Unremarkable. No significant stenosis. No dissection or occlusion. LEFT EXTRACRANIAL INTERNAL CAROTID ARTERY: Unremarkable. No significant stenosis. No dissection or occlusion. LEFT EXTERNAL CAROTID ARTERY: Unremarkable. No occlusion. LEFT EXTRACRANIAL VERTEBRAL ARTERY: Unremarkable. No significant stenosis. No dissection or occlusion. GREAT VESSELS OF AORTIC ARCH: Unremarkable as visualized. Normal anatomy, patent. LUNG APICES: Unremarkable as visualized. HEAD and NECK: BONES/JOINTS: Unremarkable. No discrete lytic or blastic abnormalities. SOFT TISSUES: Unremarkable. CAROTID STENOSIS REFERENCE USING NASCET CRITERIA: % ICA stenosis = (1 - narrowest ICA diameter/diameter of distal cervical ICA) x 100. Mild - <50% stenosis. Moderate - 50-69% stenosis. Severe - 70-94% stenosis. Near occlusion - 95-99% stenosis. Occluded - 100% stenosis. CT/STROKE CTA Head AND Neck W/Con IMPRESSION: Negative CTA carotid and CTA brain. Electronically Signed: Dimitris Jimenez MD at 20:59 EDT ,
--- NOTE | 2022-09-02 19:50 | EDS_ITS ---
HPI History of Present Illness Chief Complaint: General Illness Informant: patient and spouse/S.O. Onset/Context/Timing Onset: Weeks (2.5) Narrative Narrative: Patient presenting with multiple symptoms. She states for the past 2 and half weeks or so she has been having diplopia, worsening ataxia than usual, persistent dysesthesias in all 4 extremities, in her lower legs and her hands, an occipital headache with pain going down into her neck and right shoulder which hurt worse to move, and frequent relative disorientation. The dysesthesias, disorientation, and ataxia have all been present since November or December this year, since she has been home from the long-term where she was for rehab after being admitted for alcoholic hepatitis and Wernicke's encephalopathy. She has alcoholic cirrhosis and has not had a drink since she has been home from the long-term, she states she is very concerned she is having stroke. She has no lateralizing neurologic symptoms in her arms or legs. She denies using any drugs. She admits that she is extremely anxious about all of this. She states there is a family history of stroke and diabetes, and then proceeds to tell me that she recently has been eating ice cream by the [facility], but she does not have polydipsia polyuria with an extreme thirst for water. She follows with Dr. Sarabia for her cirrhosis. She is not anticoagulated for any reason, with medications. She states she gets some occasional chest discomfort, she does not have that now, no recent cough or dyspnea but she did notice today when she was eating that she lost her sense of taste; she states she had COVID last year and she just regained her sense of smell/taste from that about a month or 2 ago. She checked her blood pressure at home today with her 's assistance, it was 120s/70s and she is concerned about that. [facility] Medical History Abnormal liver function test Alcohol abuse Alcohol use Alcoholic hepatitis Anemia Anxiety Cardiology follow-up encounter Chronic pain Cirrhosis of liver Gastric reflux GERD (gastroesophageal reflux disease) History of Clostridium difficile infection History of edema History of pain when walking Leg cramps Migraine headache Neuropathy Non-smoker Non-smoker Post-menopausal Splenomegaly Syncope Walker as ambulation aid Wears glasses Wernickes encephalopathy Home Medications gabapentin 300 mg tablet 300 mg PO TID 03/05/22 [History Last Taken 04/05/22 05:00] melatonin 10 mg tablet 10 mg PO QHS 03/05/22 [History Last Taken Unknown] cholecalciferol (vitamin D3) 125 mcg (5,000 unit) tablet (Vitamin D3) 125 mcg PO DAILY 04/04/22 [History Last Taken Unknown] duloxetine 60 mg capsule,delayed release sprinkle 60 mg PO QHS 04/04/22 [History Last Taken Unknown] folic acid 1 mg tablet 1 mg PO DAILY 04/04/22 [History Last Taken Unknown] multivitamin 1 cap PO DAILY 04/04/22 [History Last Taken Unknown] thiamine HCl (vitamin B1) 100 mg tablet (Vitamin B-1) 100 mg PO DAILY 04/04/22 [History Last Taken Unknown] trazodone 50 mg tablet 25 mg PO MOTUWETHFRSA SLEEP 04/04/22 [History Last Taken Unknown] cephalexin 500 mg capsule 500 mg PO TID 7 days #21 caps 07/17/22 [Rx Last Taken Unknown] levofloxacin 750 mg tablet 750 mg PO DAILY 7 days #7 tabs 07/17/22 [Rx Last Taken Unknown] lactulose 10 gram/15 mL (15 mL) oral solution 15 ml PO TID #750 mL 07/24/22 [Rx Last Taken Unknown] nadolol 20 mg tablet 20 mg PO DAILY #30 tabs 08/03/22 [Rx Last Taken Unknown] pantoprazole 40 mg tablet,delayed release 40 mg PO DAILY #30 tabs 08/03/22 [Rx Last Taken Unknown] nitrofurantoin monohydrate/macrocrystals 100 mg capsule 100 mg PO BID 09/02/22 [History Last Taken Unknown] Allergy/AdvReac Type Severity Reaction Status Date / Time No Known Allergies Allergy Verified 09/02/22 19:23 Family History Mother Dementia Father Diabetes Surgical History History of liver biopsy History of tonsillectomy and adenoidectomy Social History household members: spouse Smoking Status: Never smoker alcohol intake: former year quit: 2020 substance use type: does not use ROS ROS ED Constitutional Constitutional ED: Denies chills or fever(s) Eyes Eyes: Denies change in vision or diplopia ENT ENT ED: Reports loss taste/smell; Denies rhinorrhea or sore throat Cardiovascular Cardiovascular: Reports chest pain; Denies palpitations Respiratory/Chest Respiratory/Chest: Denies cough or dyspnea Gastrointestinal Gastrointestinal: Denies abdominal pain, diarrhea, nausea or vomiting Genitourinary Genitourinary ED: Denies dysuria or hematuria Musculoskeletal Musculoskeletal: Reports neck pain; Denies back pain Integumentary Denies abscess or rash Neurologic Neurologic: Reports as per HPI, abnormal gait, confusion, headache(s), lack of coordination, paresthesias, tremor(s) and weakness; Denies loss of vision, seizures or syncope Psychiatric Psychiatric: Reports anxiety; Denies suicidal thoughts Endocrine Endocrinology: Denies polydipsia or polyuria EXAM Physical Exam Const Vital Signs: 09/02/22 19:24 09/02/22 19:31 09/02/22 20:43 Temperature 97.6 F L Temperature Source Temporal Pulse Rate 68 Respiratory Rate 16 Respiratory Effort Normal Respiratory Pattern Normal Blood Pressure 126/92 H Blood Pressure Mean 103 Pulse Ox 100 Oxygen Delivery Method Room Air Room Air Positive well nourished and well developed General Appearance ED: well developed and NAD HEENT Reports TM's clear and moist mucous membranes normocephalic and atraumatic Tympanic Membrane ED: Yes TM's clear Eyes PERRL and EOMs intact bilaterally Neck full ROM and supple Neck Narrative: tender paraspinal bilat and into traps bilat Resp normal respiratory effort and clear to auscultation bilaterally Cardio regular rate, regular rhythm and no murmurs GI non-tender and non-distended Auscultation: normoactive bowel sounds Palpation: soft Back/Spine no CVA tenderness General Back: other FROM Extremity normal to inspection Extremity Narrative: tremulous both hands, both when resting and w/ intention General Extremety ED: Negative for edema, pulses abnormal or tenderness General Extremity: Negative for edema or pulses abnormal Neuro oriented x3, CN's II-XII intact bilaterally and no sensory deficits noted Neuro Narrative: Normal demtes-[id number] and [id number] bilaterally. Is ataxic when stands w/ abnormal [place]omberg. Subjective dysesthesias BLE and hands, sensation intact. Sensorium / Orientation: awake and alert Motor Exam: strength 5/5 throughout Psych Mood & Affect: anxious and tearful Skin no rashes or lesions noted and no wounds Skin Narrative: faint erythema NT at left calf where pt remotely had cellulitis MDM MDM MDM Narrative Medical decision making narrative: I did a metabolic work-up on this patient including an ammonia level, her total bilirubin is slightly elevated consistent with cirrhosis, her PT and PTT are slightly elevated consistent with cirrhosis, and her ammonia is normal. Except for platelets being a little low which is also consistent with cirrhosis, the rest of her labs are normal. CT of the head was negative for bleed, CT angiography was performed to rule out an uncommon aneurysm or mass of the third ventricle which can also cause Wernicke's syndrome, and this was negative except for some atherosclerotic plaque that was scattered in multiple vessels. Her vital signs are normal. She has no signs of an active infection. Her symptoms are for the most part chronic but may be a little worse overall, and I think overall her symptoms are all consistent with Wernicke's syndrome. She states she is on thiamine 100 mg that she takes every day since she was discharged from the hospital earlier this year, in addition to her other medications and lactulose. She is not acutely encephalopathic at this time. She does not sound like she has dashawn Korsakoff syndrome. She saw a neurologist as an outpatient but she is not following with him. It was someone in [place]. I recommend talking to her doctor, she may need to be referred to neurology again, but from what I understand about Wernicke's syndrome, the symptoms may improve over time, but not necessarily quickly and I may be the case with her. I recommend continuing the thiamine and following up and discussed this with her as well. Patient also very emotional about all of this. She states she feels very guilty. I asked her if she is seeing a counselor she states that she is, which I advise continuing. Lab Data Attestation: I reviewed the patient's lab results. Labs: Laboratory Results - last 24 hr 09/02/22 09/02/22 09/02/22 20:00 20:10 20:10 WBC 4.5 RBC 3.65 L Hgb 11.1 L Hct 33.5 L MCV 91.8 MCH 30.4 MCHC 33.1 RDW Std Deviation 52.1 H RDW Coeff of Pepito 15.5 H Plt Count 59 L MPV 12.7 H Immature Gran % (Auto) 0.200 Neut % (Auto) 57.1 Lymph % (Auto) 34.3 [place] % (Auto) 7.1 Eos % (Auto) 1.1 Baso % (Auto) 0.2 Absolute Neuts (auto) 2.6 Absolute Lymphs (auto) 1.55 Nucleated RBC % 0 PT 15.8 H INR 1.3 APTT 39.3 H Sodium Potassium Chloride Carbon Dioxide Anion Gap BUN Creatinine Estim Creat Clear Calc Est GFR (MDRD) Af Amer Est GFR (MDRD) Non-Af BUN/Creatinine Ratio Glucose Calcium Total Bilirubin AST ALT Alkaline Phosphatase Ammonia Troponin I High Sens Total Protein Albumin Globulin Albumin/Globulin Ratio POC Glucose 106 09/02/22 09/02/22 20:10 20:10 WBC RBC Hgb Hct MCV MCH MCHC RDW Std Deviation RDW Coeff of Pepito Plt Count MPV Immature Gran % (Auto) Neut % (Auto) Lymph % (Auto) Pacific % (Auto) Eos % (Auto) Baso % (Auto) Absolute Neuts (auto) Absolute Lymphs (auto) Nucleated RBC % PT INR APTT Sodium 140 Potassium 4.3 Chloride 111 H Carbon Dioxide 22.0 Anion Gap 7 BUN 17 Creatinine 0.79 Estim Creat Clear Calc 90.08 Est GFR (MDRD) Af Amer 98 Est GFR (MDRD) Non-Af 81 BUN/Creatinine Ratio 21.6 H Glucose 113 H Calcium 9.3 Total Bilirubin 1.50 H AST 40 H ALT 27 Alkaline Phosphatase 104 Ammonia 27.0 Troponin I High Sens 4 Total Protein 8.0 Albumin 3.4 Globulin 4.6 H Albumin/Globulin Ratio 0.7 L POC Glucose Radiography Diagnostic Testing: Clinical Impression(s) from Imaging Studies Head/Neck CTA 09/02/22 19:49 IMPRESSION: Negative CTA carotid and CTA brain. Electronically Signed: Dimitris Jimenez MD at 20:59 EDT , ADDENDUM: 09/02/222107 IMPRESSION: Negative CTA carotid and CTA brain. N.B. : The above Results were Read Back by Dimitris Jimenez MD to Paco Mathews MD, and understanding confirmed on 09/02/2022 21:01:26 (ET). Electronically Signed: Dimitris Jimenez MD at 20:59 EDT , Rhythm Strip Rhythm Strip: Sinus Rhythm Rate: 75 Ectopy: None EKG Initial EKG: Attestation: I personally reviewed and interpreted this EKG as follows: Interpretation: Sinus Rhythm and No Acute Injury Pattern Discharge Plan Triage Chief Complaint: General Illness ED Provider: Paco Mathews Dx/Rx/DC Orders Clinical Impression: Wernicke's syndrome, Alcoholic cirrhosis Instructions: ED Cirrhosis Prescriptions: No Action gabapentin 300 mg Tablet 300 mg PO TID melatonin 10 mg Tablet 10 mg PO QHS folic acid 1 mg Tablet 1 mg PO DAILY multivitamin Capsule 1 cap PO DAILY trazodone 50 mg Tablet 25 mg PO MOTUWETHFRSA Rx Instructions: DONT TAKE ON SATURDAY thiamine HCl (vitamin B1) [Vitamin B-1] 100 mg Tablet 100 mg PO DAILY cholecalciferol (vitamin D3) [Vitamin D3] 125 mcg (5,000 unit) Tablet 125 mcg PO DAILY duloxetine 60 mg Capsule, Delayed Rel Sprinkle 60 mg PO QHS cephalexin 500 mg capsule 500 mg PO TID 7 Days Qty: 21 0RF levofloxacin 750 mg tablet 750 mg PO DAILY 7 Days Qty: 7 0RF nitrofurantoin monohyd/m-cryst 100 mg capsule 100 mg PO BID lactulose 10 gram/15 mL (15 mL) solution 15 ml PO TID Qty: 750 2RF pantoprazole 40 mg tablet,delayed release (DR/EC) 40 mg PO DAILY Qty: 30 2RF nadolol 20 mg tablet 20 mg PO DAILY Qty: 30 11RF Primary Care Provider: ROBERT PEARSON Referrals: ROBERT PEARSON [Other] - 1 Week (and/or with neurology) Disposition Disposition: Home, Self Care
[2022-09-02 20:24] LABS: Absolute Lymphocyte Count 1.55 X10^3/uL (0.83-4.51); Absolute Neutrophil Count 2.6 X10^3/uL (2.0-7.7); Basophil# 0.01 X10^3/uL; Basophil% 0.2 % (0-1); Eosinophil# 0.05 X10^3/uL; Eosinophils% 1.1 % (0-5); Hematocrit 33.5 % (37-47); Hemoglobin 11.1 g/dL (12.0-15.0); Lymphocyte # 1.55 X10^3/ul (0.83-4.51); Lymphocyte % 34.3 % (19-41); Mean Corp Hgb Conc 33.1 g/dL (32-36); Mean Corpuscular Hgb 30.4 pg (27.0-32.0); Mean Corpuscular Volume 91.8 fL (81-99); Mean Platelet Vol. 12.7 fl (6.2-12.0); Monocyte# 0.32 X10^3/uL; Monocyte% 7.1 % (0-10); NRBC Flagged by Analyzer 0 % (0-5); Neutrophil # 2.58 X10^3/uL (2.7-7.7); Neutrophil % 57.1 % (47-70); POSITIVE COUNT YES; Platelet Count 59 K/mm3 (150-450); RBC Distribution Width CV 15.5 % (11.6-14.6); RBC Distribution Width SD 52.1 fl (35.1-43.9); Red Blood Count 3.65 M/mm3 (4.2-5.4); White Blood Count 4.5 K/mm3 (4.4-11.0)
[2022-09-02 20:30] LABS: Bedside Glucose 106 mg/dL (74-106)
[2022-09-02 20:32] LABS: International Normalized Ratio 1.3; Prothrombin Time (Protime)PT. 15.8 SECONDS (11.7-14.9)
[2022-09-02 20:33] LABS: Partial Thromboplast Time 39.3 Seconds (24.1-36.2)
[2022-09-02 20:36] LABS: ALB/GLOB Ratio 0.7 RATIO (0.9-2.4); AST(SGOT) 40 U/L (15-37); Alanine Aminotransfer ALT/SGPT 27 U/L (13-56); Albumin, Serum 3.4 g/dL (3.2-5.0); Alkaline Phosphatase 104 U/L (45-117); Anion Gap 7 (5-15); BUN 17 mg/dL (7-18); BUN/Creat Ratio 21.6 RATIO (10-20); Calcium,Total 9.3 mg/dL (8.5-10.1); Chloride 111 mmol/L (98-107); Creatinine, Serum 0.79 mg/dL (0.55-1.02); EST Glomerular Filtration Rate 81 mL/min (>60); Est Glom Filt Rate - Afr Amer 98 mL/min (>60); Estimated Creatinine Clearance 90.08 ml/min; Globulin 4.6 g/dL (2.2-4.2); Glucose 113 mg/dL (74-106); Potassium 4.3 mmol/L (3.5-5.1); Sodium Level 140 mmol/L (136-145); Troponin-I HS 4 pg/mL (3.0-54.0)
[2022-09-02 21:53] VITALS: BP 139/83; PULSE 95; RESP 18; O2SAT 96
== END 2022-09-02 22:00 | disposition home or self-care (01) ==
PROVIDERS: Emergency Provider Emergency Medicine; Visit Provider Emergency Medicine
DX: E51.2 Wernicke's encephalopathy (principal); K70.30 Alcoholic cirrhosis of liver without ascites; Z86.16 Personal history of COVID-19
CPT/HCPCS: 70496; 70498; 80053; 82140; 82962; 84484; 85025; 85610; 85730; 87811; 93005; 99284; Q9967; A4216

== ENCOUNTER 2022-09-24 20:35 | Emergency (ER) | payer OTHER, SELFPAY ==
[2022-09-24 20:36] VITALS: BP 144/78; PULSE 84; RESP 18; TEMP 36.4; O2SAT 97; BMI 23.2
--- NOTE | 2022-09-24 21:12 | EDS_ITS ---
HPI <RACHELL Palomino - Last Filed: 09/24/22 21:46> History of Present Illness Chief Complaint: Lower Extremity Injury Narrative Narrative: Patient presents with lower left leg pain that started this evening. She has a history of neuropathy in her legs bilaterally and is being treated for this by her PCP. She states that earlier today she shaved her legs and shortly after placed capsaicin cream to her left leg and immediately felt a burning sensation. She then tried to wash off the cream from her legs in a hot bath where she noticed she had missed a few spots shaving, and decided to shave over them. The pain in her left leg then worsened prompting her to come to the ED. She states last time she had neuropathic pain in her legs she was given 1 dose of oxycodone here in the ED and it relieved her pain. PFSH <RACHELL Palomino - Last Filed: 09/24/22 21:46> [facility] Medical History Abnormal liver function test Alcohol abuse Alcohol use Alcoholic hepatitis Anemia Anxiety Cardiology follow-up encounter Chronic pain Cirrhosis of liver Gastric reflux GERD (gastroesophageal reflux disease) History of Clostridium difficile infection History of edema History of pain when walking Leg cramps Migraine headache Neuropathy Non-smoker Non-smoker Post-menopausal Splenomegaly Syncope Walker as ambulation aid Wears glasses Wernickes encephalopathy Home Medications gabapentin 300 mg tablet 300 mg PO TID 03/05/22 [History Last Taken 04/05/22 05:00] melatonin 10 mg tablet 10 mg PO QHS 03/05/22 [History Last Taken Unknown] cholecalciferol (vitamin D3) 125 mcg (5,000 unit) tablet (Vitamin D3) 125 mcg PO DAILY 04/04/22 [History Last Taken Unknown] duloxetine 60 mg capsule,delayed release sprinkle 60 mg PO QHS 04/04/22 [History Last Taken Unknown] folic acid 1 mg tablet 1 mg PO DAILY 04/04/22 [History Last Taken Unknown] multivitamin 1 cap PO DAILY 04/04/22 [History Last Taken Unknown] thiamine HCl (vitamin B1) 100 mg tablet (Vitamin B-1) 100 mg PO DAILY 04/04/22 [History Last Taken Unknown] trazodone 50 mg tablet 25 mg PO MOTUWETHFRSA SLEEP 04/04/22 [History Last Taken Unknown] cephalexin 500 mg capsule 500 mg PO TID 7 days #21 caps 07/17/22 [Rx Last Taken Unknown] levofloxacin 750 mg tablet 750 mg PO DAILY 7 days #7 tabs 07/17/22 [Rx Last Taken Unknown] lactulose 10 gram/15 mL (15 mL) oral solution 15 ml PO TID #750 mL 07/24/22 [Rx Last Taken Unknown] nadolol 20 mg tablet 20 mg PO DAILY #30 tabs 08/03/22 [Rx Last Taken Unknown] nitrofurantoin monohydrate/macrocrystals 100 mg capsule 100 mg PO BID 09/02/22 [History Last Taken Unknown] pantoprazole 40 mg tablet,delayed release 40 mg PO BID #60 tabs 09/12/22 [Rx Last Taken Unknown] oxycodone 5 mg capsule 5 mg PO BID PRN pain 1 day #2 caps 09/24/22 [Rx Last Taken Unknown] oxycodone 5 mg capsule 5 mg PO BID PRN pain 2 days #2 caps 09/24/22 [Rx Last Taken Unknown] Allergy/AdvReac Type Severity Reaction Status Date / Time No Known Allergies Allergy Verified 09/24/22 21:09 Family History Mother Dementia Father Diabetes Surgical History History of liver biopsy History of tonsillectomy and adenoidectomy Social History household members: spouse Smoking Status: Never smoker alcohol intake: former year quit: 2020 substance use type: does not use ROS <RACHELL Palomino - Last Filed: 09/24/22 21:46> ROS ED Constitutional Constitutional ED: Denies chills, fever(s) or sweats Eyes Eyes: Denies change in vision ENT ENT ED: Denies rhinorrhea or sore throat Cardiovascular Cardiovascular: Denies chest pain or palpitations Respiratory/Chest Respiratory/Chest: Denies cough, dyspnea, dyspnea on exertion, shortness of breath at rest or shortness of breath with exertion Gastrointestinal Gastrointestinal: Denies abdominal pain, constipation, diarrhea, nausea or vomiting Musculoskeletal Musculoskeletal: Denies myalgias Integumentary Reports other; Denies Abrasions or rash Neurologic Neurologic: Denies headache(s) or weakness EXAM <RACHELL Palomino - Last Filed: 09/24/22 21:46> Physical Exam Const Vital Signs: 09/24/22 20:36 Temperature 97.6 F L Temperature Source Temporal Pulse Rate 84 Respiratory Rate 18 Blood Pressure 144/78 H Blood Pressure Mean 100 Pulse Ox 97 Oxygen Delivery Method Room Air Positive well nourished HEENT Reports moist mucous membranes Negative for trauma Eyes PERRL and EOMs intact bilaterally Neck supple Resp normal respiratory effort and clear to auscultation bilaterally Auscultation: Negative for rales, rhonchi, wheezes or diminished lung sounds Cardio regular rate, regular rhythm and no murmurs GI non-tender, non-distended and no masses Extremity Extremity Narrative: Patient is very tender to palpation of the left lower leg. dorsalis pedis pulses 2+ bilaterally. Posterior tibialis pulses 2+ bilaterally. Brisk capillary. refill to all 10 toes. Legs negative for edema, erythema, and infection. No bony deformity. Neuro oriented x3 Sensorium / Orientation: alert Psych mental status grossly normal Skin no rashes or lesions noted and no wounds Lesions: No lesion noted Rashes: No rashes noted Trauma: Negative for abrasion <Dr. Darrian Singh DO - Last Filed: 09/24/22 21:37> Physical Exam Const Vital Signs: 09/24/22 20:36 Temperature 97.6 F L Temperature Source Temporal Pulse Rate 84 Respiratory Rate 18 Blood Pressure 144/78 H Blood Pressure Mean 100 Pulse Ox 97 Oxygen Delivery Method Room Air MDM <RACHELL Palomino - Last Filed: 09/24/22 21:46> [facility] Narrative Medical decision making narrative: This patient was seen with a PA/HIGH DENSITY FINISHING OPERATOR Individually assessed they patient including history and physical. I have reviewed everything on the chart that is available and agree with the documentation provided by the PA/HIGH DENSITY FINISHING OPERATOR including discussion about the assessment, treatment plan, discussion, and return precautions. Patient seen and evaluated for bilateral lower extremity pain. Apparently she took a bath and shaved her legs and afterwards was placing capsaicin cream on her legs. She noted it was burning. She decided to get back into a hot bath and noted that she had not completely shaved her legs and started shaving again. She states that her legs are burning more at this point. She believes she got all of the capsaicin cream off. Patient legs are neurovascular intact. She is prescribed of all 5 toes. DP/PTs are normal. Sensation is normal. Patient will be given oxycodone here. She request tomorrow for home and this was provided. She is counseled to discontinue use of the capsaicin cream especially in conjunction with hot baths and shaving. Patient discharged home in stable condition. Impression: 1. Drug reaction Patient instructed to follow-up with PCP if symptoms do not improve. <Dr. Darrian Singh, DO - Last Filed: 09/24/22 21:37> [facility] MDM Narrative Medical decision making narrative: This patient was seen with a PA/HIGH DENSITY FINISHING OPERATOR Individually assessed they patient including history and physical. I have reviewed everything on the chart that is available and agree with the documentation provided by the PA/HIGH DENSITY FINISHING OPERATOR including discussion about the assessment, treatment plan, discussion, and return precautions. Patient seen and evaluated for bilateral lower extremity pain. Apparently she took a bath and shaved her legs and afterwards was placing capsaicin cream on her legs. She noted it was burning. She decided to get back into a hot bath and noted that she had not completely shaved her legs and started shaving again. She states that her legs are burning more at this point. She believes she got all of the capsaicin cream off. Patient legs are neurovascular intact. She is prescribed of all 5 toes. DP/PTs are normal. Sensation is normal. Patient will be given oxycodone here. She request tomorrow for home and this was provided. She is counseled to discontinue use of the capsaicin cream especially in conjunction with hot baths and shaving. Patient discharged home in stable condition. Impression: 1. Drug reaction Lab Data Attestation: I reviewed the patient's lab results. Discharge Plan Triage Chief Complaint: Lower Extremity Injury ED Midlevel Provider: Zonia Arreaga ED Provider: Darrian Singh Dx/Rx/DC Orders Clinical Impression: Neuropathy Prescriptions: New oxycodone 5 mg capsule 5 mg PO BID PRN (Reason: pain) 1 Days Qty: 2 0RF oxycodone 5 mg capsule 5 mg PO BID PRN (Reason: pain) 2 Days Qty: 2 0RF No Action pantoprazole 40 mg tablet,delayed release (DR/EC) 40 mg PO BID Qty: 60 2RF gabapentin 300 mg Tablet 300 mg PO TID melatonin 10 mg Tablet 10 mg PO QHS folic acid 1 mg Tablet 1 mg PO DAILY multivitamin Capsule 1 cap PO DAILY trazodone 50 mg Tablet 25 mg PO MOTUWETHFRSA Rx Instructions: DONT TAKE ON SATURDAY thiamine HCl (vitamin B1) [Vitamin B-1] 100 mg Tablet 100 mg PO DAILY cholecalciferol (vitamin D3) [Vitamin D3] 125 mcg (5,000 unit) Tablet 125 mcg PO DAILY duloxetine 60 mg Capsule, Delayed Rel Sprinkle 60 mg PO QHS cephalexin 500 mg capsule 500 mg PO TID 7 Days Qty: 21 0RF levofloxacin 750 mg tablet 750 mg PO DAILY 7 Days Qty: 7 0RF nitrofurantoin monohyd/m-cryst 100 mg capsule 100 mg PO BID lactulose 10 gram/15 mL (15 mL) solution 15 ml PO TID Qty: 750 2RF nadolol 20 mg tablet 20 mg PO DAILY Qty: 30 11RF Referrals: NOT,DEFINED [Non-Staff] - Disposition Disposition: Home, Self Care
[2022-09-24] MEDS: oxyCODONE 5 MG Tablet PO (21:50)
== END 2022-09-24 21:59 | disposition home or self-care (01) ==
PROVIDERS: Emergency Provider Student in an Organized Health Care Education/Training Program; Visit Provider Student in an Organized Health Care Education/Training Program
DX: M79.605 Pain in left leg (principal); K70.30 Alcoholic cirrhosis of liver without ascites; T45.1X5A Adverse effect of antineoplastic and immunosuppressive drugs, initial encounter; G62.9 Polyneuropathy, unspecified; G47.419 Narcolepsy without cataplexy; K70.10 Alcoholic hepatitis without ascites; F10.10 Alcohol abuse, uncomplicated; F41.9 Anxiety disorder, unspecified; G89.4 Chronic pain syndrome; K21.9 Gastro-esophageal reflux disease without esophagitis; Z78.0 Asymptomatic menopausal state; Z79.899 Other long term (current) drug therapy
CPT/HCPCS: 99283

== ENCOUNTER → 2023-02-12 | Outpatient (CLI) | payer OTHER, SELFPAY ==
[2023-02-12 13:00] LABS: Absolute Lymphocyte Count 1.16 X10^3/uL (0.83-4.51); Absolute Neutrophil Count 1.6 X10^3/uL (2.0-7.7); Basophil# 0.02 X10^3/uL; Basophil% 0.6 % (0-1); Eosinophil# 0.05 X10^3/uL; Eosinophils% 1.6 % (0-5); Hematocrit 33.5 % (37-47); Hemoglobin 10.7 g/dL (12.0-15.0); Lymphocyte # 1.16 X10^3/ul (0.83-4.51); Lymphocyte % 37.7 % (19-41); Mean Corp Hgb Conc 31.9 g/dL (32-36); Mean Corpuscular Hgb 28.9 pg (27.0-32.0); Mean Corpuscular Volume 90.5 fL (81-99); Mean Platelet Vol. 13.7 fl (6.2-12.0); Monocyte# 0.25 X10^3/uL; Monocyte% 8.1 % (0-10); NRBC Flagged by Analyzer 0 % (0-5); POSITIVE COUNT YES; Platelet Count 53 K/mm3 (150-450); RBC Distribution Width CV 15.4 % (11.6-14.6); RBC Distribution Width SD 51.2 fl (35.1-43.9); White Blood Count 3.1 K/mm3 (4.4-11.0)
[2023-02-12 13:10] LABS: International Normalized Ratio 1.3; Prothrombin Time (Protime)PT. 15.8 SECONDS (11.7-14.9)
[2023-02-12 13:12] LABS: Erythrocyte Sedimentation Rate 33 mm/hr (0-30)
[2023-02-12 13:27] LABS: ALB/GLOB Ratio 0.9 RATIO (0.9-2.4); AST(SGOT) 38 U/L (15-37); Alanine Aminotransfer ALT/SGPT 31 U/L (13-56); Albumin, Serum 3.6 g/dL (3.2-5.0); Alkaline Phosphatase 91 U/L (45-117); Anion Gap 7 (5-15); BUN 11 mg/dL (7-18); BUN/Creat Ratio 13.3 RATIO (10-20); CRP 7.27 mg/L (0.0-3.0); Calcium,Total 9.1 mg/dL (8.5-10.1); Chloride 111 mmol/L (98-107); Creatinine, Serum 0.83 mg/dL (0.55-1.02); EST Glomerular Filtration Rate 77 mL/min (>60); Est Glom Filt Rate - Afr Amer 93 mL/min (>60); Glucose 106 mg/dL (74-106); LDH 152 U/L (84-246); Potassium 4.4 mmol/L (3.5-5.1); Protein, Total 7.6 g/dL (6.4-8.2); Sodium Level 139 mmol/L (136-145)
== END | disposition home or self-care (01) ==
PROVIDERS: Internal Medicine Gastroenterology
DX: K74.60 Unspecified cirrhosis of liver (principal)
CPT/HCPCS: 36415; 80053; 82140; 83615; 85025; 85610; 85652; 86140

== ENCOUNTER → 2023-03-01 | Outpatient (CLI) | payer OTHER, SELFPAY ==
[2023-03-08 21:07] LABS: HPV APTIMA, High Risk Negative (Negative)
== END | disposition home or self-care (01) ==
LOC: LABSPEC 16:35
PROVIDERS: Visit Provider Student in an Organized Health Care Education/Training Program
DX: Z12.4 Encounter for screening for malignant neoplasm of cervix (principal)
CPT/HCPCS: 87624; 88175; G0145

== ENCOUNTER → 2023-03-11 | Outpatient (CLI) | payer OTHER, SELFPAY ==
--- NOTE | 2023-03-11 07:44 | BI_ITS ---
MAMMOGRAPHY - BILATERAL SCREENING REASON FOR EXAM: Female, 53 years old. Routine annual screening examination. PERTINENT HISTORY: Non-contributory. TECHNIQUE: Digital bilateral breast latricia (3D mammographic acquisition) in the CC and MLO projections. 2-D mediolateral oblique (MLO) and craniocaudad (CC) views of both breasts were obtained. CAD: Full Field Digital Mammography with Computer Added Detection was performed. COMPARISON: None. Baseline examination. FINDINGS: Breast Composition: The breasts are extremely dense, which lowers the sensitivity of mammography. There are no dominant masses or suspicious calcifications. Benign appearing bilateral axillary lymph nodes. No other significant abnormalities are identified. There has been no significant change since the prior study. BI/SCRN MAMM (CAD)W/LATRICIA BILAT IMPRESSION: Stable bilateral screening mammogram. Yearly follow-up mammogram recommended. (A) ASSESSMENT CATEGORY: BIRADS Category 2: Benign. A letter regarding these results will be sent to the patient by the facility within 30 days. Approximately 10% of breast cancers are not detected by mammography. A normal mammogram should not delay biopsy of a clinically suspicious abnormality. [id number] Electronically Signed: Buzz Neves MD at 9:05 EDT ,
[2023-03-11 09:38] LABS: Cholesterol 180 mg/dL (200); High Density Lipoprotein 33 mg/dL; Thyroid Stim Hormone (TSH) 5.76 uIU/mL (0.358-3.74); Triglycerides 118 mg/dL; Very Low Density Lipoprotein 24 mg/dL (5-40)
== END | disposition home or self-care (01) ==
PROVIDERS: Referring Provider Student in an Organized Health Care Education/Training Program; Visit Provider Student in an Organized Health Care Education/Training Program
DX: Z12.31 Encounter for screening mammogram for malignant neoplasm of breast (principal); Z12.4 Encounter for screening for malignant neoplasm of cervix; Z13.220 Encounter for screening for lipoid disorders
CPT/HCPCS: 36415; 77063; 77067; 80061; 84443

== ENCOUNTER → 2023-07-05 | Outpatient (CLI) | payer OTHER, SELFPAY ==
[2023-07-05 17:48] LABS: Estradiol 35.3 pg/mL
[2023-07-05 20:02] LABS: Progesterone Level 1.87 ng/mL (See Comment)
== END | disposition home or self-care (01) ==
LOC: MTLAB 15:22
PROVIDERS: Referring Provider Specialist; Visit Provider Specialist
DX: N95.1 Menopausal and female climacteric states (principal)
CPT/HCPCS: 36415; 82670; 84144; 84403

== ENCOUNTER 2023-07-07 05:00 | Emergency (ER) | payer OTHER, SELFPAY ==
[2023-07-07 05:01] VITALS: BP 145/85; PULSE 79; RESP 20; TEMP 36.5; O2SAT 100; BMI 27.8
[2023-07-07] MEDS: oxyCODONE 5 MG Tablet PO (05:21)
--- NOTE | 2023-07-07 05:53 | EDS_ITS ---
HPI History of Present Illness Chief Complaint: General Illness Narrative Narrative: Patient presenting with flareup of her peripheral neuropathy on bilateral lower extremities. She states she takes gabapentin 300 mg 3 times daily. She also took a couple of extra 100 mg doses which she was told she could take if she had flareups. She denies any other changes in her medications. Denies any trauma. Patient states has been seen by pain management and states that this is the appropriate medication that her PCP put her on. She has between PCPs because she does not like the one she has and she is waiting for a new one locally. She states he has plenty of gabapentin. She was referred to neurology at 1 point and per the patient the neurologist asked her why she was sent here. Patient states she has not had any change in medications. Patient states the flareup started yesterday but since she is in between PCPs she does not have anybody to treat her. Denies any new creams or lotions. She also states that she has had some dizziness recently. She states that her ears are ringing. Patient states that this is not why she came to the ED and she states she is here for the pain in her legs. [facility] Medical History Abnormal liver function test Alcohol use Alcoholic hepatitis Anemia Anxiety Cardiology follow-up encounter Chronic pain Cirrhosis of liver Gastric reflux History of Clostridium difficile infection History of edema History of pain when walking History of ulceration Leg cramps Migraine headache Neuropathy Non-smoker Non-smoker Post-menopausal Rash Splenomegaly Syncope Wears glasses Wernickes encephalopathy Home Medications melatonin 10 mg tablet 10 mg PO QHS 03/05/22 [History Last Taken Unknown] cholecalciferol (vitamin D3) 125 mcg (5,000 unit) tablet (Vitamin D3) 125 mcg PO DAILY 04/04/22 [History Last Taken Unknown] folic acid 1 mg tablet 1 mg PO DAILY 04/04/22 [History Last Taken Unknown] multivitamin 1 cap PO DAILY 04/04/22 [History Last Taken Unknown] thiamine HCl (vitamin B1) 100 mg tablet (Vitamin B-1) 100 mg PO DAILY 04/04/22 [History Last Taken Unknown] trazodone 50 mg tablet 25 mg PO MOTUWETHFRSA SLEEP 04/04/22 [History Last Taken Unknown] nadolol 20 mg tablet 20 mg PO DAILY #30 tabs 03/11/23 [Rx Last Taken Unknown] pantoprazole 40 mg tablet,delayed release 40 mg PO DAILY #90 tabs 03/11/23 [Rx Last Taken Unknown] ginkgo biloba 60 mg capsule 60 mg PO DAILY 05/08/23 [History Last Taken Unknown] glucosamine 500 ol-huyrxlejk-iejeiait comp 400 mg-D3 667 unit-C-Mn cap ([place]-Zahzknpoaok-A4(C-manganese)) 1 cap PO DAILY 05/08/23 [History Last Taken Unknown] magnesium 250 mg tablet 250 mg PO DAILY 05/08/23 [History Last Taken Unknown] milk thistle 175 mg capsule 175 mg PO DAILY 05/08/23 [History Last Taken Unknown] progesterone micronized 100 mg capsule 500 mg PO QHS 05/08/23 [History Last Taken Unknown] tizanidine 4 mg capsule 4 mg PO Q8H PRN Pain 05/08/23 [History Last Taken Unknown] gabapentin 300 mg capsule 300 mg PO TID #90 caps 06/07/23 [Rx Last Taken Unknown] famotidine 40 mg tablet 40 mg PO QHS #90 tabs 06/11/23 [Rx Last Taken Unknown] duloxetine 60 mg capsule,delayed release 60 mg PO BID 07/07/23 [History Last Taken Unknown] lactulose 10 gram/15 mL (15 mL) oral solution 15 ml PO TID PRN ammonia 07/07/23 [History Last Taken Unknown] lidocaine 5 % topical ointment 1 applic topical TID PRN pain #50 grams 07/07/23 [Rx Last Taken Unknown] oxycodone 5 mg tablet 5 mg PO Q6H PRN pain 1 day #4 tabs 07/07/23 [Rx Last Taken Unknown] Allergy/AdvReac Type Severity Reaction Status Date / Time No Known Allergies Allergy Verified 06/07/23 15:07 Family History Mother Dementia Father Diabetes Surgical History History of esophagogastroduodenoscopy (EGD) History of liver biopsy History of tonsillectomy and adenoidectomy Social History household members: spouse Smoking Status: Never smoker alcohol intake: former year quit: 2020 substance use type: does not use ROS ROS ED ROS Narrative Dizziness Constitutional Constitutional ED: Denies chills, fever(s) or sweats Eyes Eyes: Denies blurry vision or change in vision ENT ENT ED: Reports other Details: Tinnitus ; Denies ear pain or sore throat Cardiovascular Cardiovascular: Denies chest pain, palpitations or racing heartbeat Respiratory/Chest Respiratory/Chest: Denies cough, dyspnea or sputum Gastrointestinal Gastrointestinal: Denies abdominal pain, constipation, diarrhea, nausea or vomiting Genitourinary Genitourinary ED: Denies dysuria, hematuria or urinary frequency Musculoskeletal Musculoskeletal: Reports other Details: Bilateral leg pain ; Denies arthralgias, myalgias or neck pain Integumentary Denies abscess, Abrasions or rash Neurologic Neurologic: Denies headache(s), paresthesias or weakness Psychiatric Psychiatric: Denies anxiety, depression, suicidal ideation or suicidal thoughts Endocrine Endocrinology: Denies polydipsia or polyuria EXAM Physical Exam Const Vital Signs: 07/07/23 05:01 07/07/23 05:07 Temperature 97.7 F L Temperature Source Oral Pulse Rate 79 Respiratory Rate 20 H Respiratory Effort Normal Non-Labored Respiratory Pattern Normal Blood Pressure 145/85 H Blood Pressure Mean 105 Pulse Ox 100 Oxygen Delivery Method Room Air Positive well nourished HEENT Reports moist mucous membranes Eyes PERRL Resp normal respiratory effort Effort and Inspection: Negative for retractions Cardio regular rate and regular rhythm Extremity Extremity Narrative: Tenderness to palpation bilateral lower extremities. No rashes, bruising, bony tenderness. Neurovascularly intact. Neuro oriented x3 Sensorium / Orientation: alert Motor Exam: strength 5/5 throughout Psych mental status grossly normal Skin no rashes or lesions noted and no wounds MDM MDM MDM Narrative Medical decision making narrative: Patient presenting with flareup of her bilateral peripheral neuropathy. She is already taking gabapentin 300 mg and 2 extra doses of 100 mg tabs. She is also stating she had some lightheadedness and ringing in her ears but she does not want this evaluated. Did offer to do blood work and imaging but she declines. I counseled the patient this is a chronic condition I can give her an oxycodone here in enough to get her through Saturday until she can see a regular doctor or pain management doctor. She is amenable to this. I also prescribed her some lidocaine cream for her legs to see if this would help with her pain. She is to continue her gabapentin as prescribed. Return precautions are discussed. Impression: 1. Peripheral neuropathy Discharge Plan Triage Chief Complaint: General Illness ED Provider: Darrian Singh Dx/Rx/DC Orders Instructions: ED Neuropathy, Peripheral Prescriptions: New oxycodone 5 mg tablet 5 mg PO Q6H PRN (Reason: pain) 1 Days Qty: 4 0RF lidocaine 5 % ointment 1 applic topical TID PRN (Reason: pain) Qty: 50 0RF No Action gabapentin 300 mg capsule 300 mg PO TID Qty: 90 3RF melatonin 10 mg Tablet 10 mg PO QHS folic acid 1 mg Tablet 1 mg PO DAILY multivitamin Capsule 1 cap PO DAILY trazodone 50 mg Tablet 25 mg PO MOTUWETHFRSA Rx Instructions: DONT TAKE ON SATURDAY thiamine HCl (vitamin B1) [Vitamin B-1] 100 mg Tablet 100 mg PO DAILY cholecalciferol (vitamin D3) [Vitamin D3] 125 mcg (5,000 unit) Tablet 125 mcg PO DAILY magnesium 250 mg Tablet 250 mg PO DAILY ginkgo biloba 60 mg Capsule 60 mg PO DAILY Rx Instructions: give with meal/snack progesterone micronized 100 mg Capsule 500 mg PO QHS tizanidine 4 mg Capsule 4 mg PO Q8H PRN (Reason: Pain) milk thistle 175 mg Capsule 175 mg PO DAILY Rx Instructions: give with meal/snack Lqypixotvmz-Yxdovf-T2 (C-hung) 500-400-667 mg-mg-unit Capsule 1 cap PO DAILY duloxetine 60 mg capsule,delayed release(DR/EC) 60 mg PO BID lactulose 10 gram/15 mL (15 mL) solution 15 ml PO TID PRN (Reason: ammonia) pantoprazole 40 mg tablet,delayed release (DR/EC) 40 mg PO DAILY Qty: 90 2RF nadolol 20 mg tablet 20 mg PO DAILY Qty: 30 11RF famotidine 40 mg tablet 40 mg PO QHS Qty: 90 5RF Primary Care Provider: Care Physician,No Primary Referrals: Care Physician,No Primary [Primary Care Provider] - Disposition Disposition: Home, Self Care
== END 2023-07-07 05:32 | disposition home or self-care (01) ==
PROVIDERS: Emergency Provider Student in an Organized Health Care Education/Training Program; Visit Provider Student in an Organized Health Care Education/Training Program
DX: G62.9 Polyneuropathy, unspecified (principal); M79.605 Pain in left leg; M79.604 Pain in right leg; K21.9 Gastro-esophageal reflux disease without esophagitis; K76.0 Fatty (change of) liver, not elsewhere classified; Z79.899 Other long term (current) drug therapy
CPT/HCPCS: 99283

== ENCOUNTER → 2023-10-28 | Outpatient (CLI) | payer OTHER, SELFPAY ==
--- NOTE | 2023-10-28 12:57 | US_ITS ---
INDICATION: BLEEDING EXAMINATION: Ultrasound US Transvaginal Non-OB TECHNIQUE: Ttransvaginal (for optimal evaluation of the adnexa) pelvic ultrasound was performed. Grayscale, spectral waveform, and color flow Doppler evaluation of the adnexa. COMPARISON: None. LMP: 3 years ago. FINDINGS: Transabdominal scan was limited by suboptimal bladder distention. UTERUS: 7.4 cm length. 2 small hypoechoic masses consistent with fibroids in the fundus, 0.8 x 0.7 x 0.8 cm, and 0.8 x 0.6 x 0.7 cm. ENDOMETRIUM: Not thickened. 0.5 cm. Heterogeneous. OVARIES: Right ovary: Not visualized. Left ovary: Not visualized. FREE FLUID: None. US/Transvaginal Non- IMPRESSION: Small uterine fibroids. Nonvisualized ovaries. Electronically Signed: Nancy Macedo MD at 8:18 EST ,
== END | disposition home or self-care (01) ==
LOC: US 12:56
PROVIDERS: PCP Nurse Practitioner Family; Referring Provider Urology; Visit Provider Urology
DX: N93.9 Abnormal uterine and vaginal bleeding, unspecified (principal)
CPT/HCPCS: 76830

== ENCOUNTER 2023-11-26 16:16 | Emergency (ER) | payer OTHER, SELFPAY ==
[2023-11-26 16:17] VITALS: BP 125/87; PULSE 84; RESP 16; TEMP 36.7; O2SAT 99; BMI 26.9
--- NOTE | 2023-11-26 17:51 | EX.ED.DYSGE1 ---
HPI <RACHELL Palomino - Last Filed: 11/26/23 19:21> History of Present Illness Chief Complaint: Lower Extremity Injury Narrative Narrative: Patient presenting today due to bilateral lower extremity numbness that is worse on the right side. 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 She takes gabapentin for this. Today, she was attempting to sit down to watch fish in the fish tank and thinks that she hit her right foot on an object. She reports that she got sudden intense pain in her right foot that radiated up her right leg. She reports that now, the pain has subsided but her leg still feels more numb than usual. She reports that she also has bilateral hand neuropathy and did feel increased numbness in her right arm but she reports that this has subsided. She is able to ambulate. [facility] <RACHELL Palomino - Last Filed: 11/26/23 19:21> [facility] Medical History Abnormal liver function test Alcohol use Alcoholic hepatitis Anemia Anxiety Cardiology follow-up encounter Chronic pain Cirrhosis of liver Gastric reflux History of Clostridium difficile infection History of edema History of pain when walking History of ulceration Leg cramps Migraine headache Neuropathy Non-smoker Non-smoker Post-menopausal Rash Splenomegaly Syncope Wears glasses Wernickes encephalopathy Home Medications melatonin 10 mg tablet 10 mg PO QHS 03/05/22 [History Last Taken Unknown] cholecalciferol (vitamin D3) 125 mcg (5,000 unit) tablet (Vitamin D3) 125 mcg PO DAILY 04/04/22 [History Last Taken Unknown] folic acid 1 mg tablet 1 mg PO DAILY 04/04/22 [History Last Taken Unknown] multivitamin 1 cap PO DAILY 04/04/22 [History Last Taken Unknown] thiamine HCl (vitamin B1) 100 mg tablet (Vitamin B-1) 100 mg PO DAILY 04/04/22 [History Last Taken Unknown] trazodone 50 mg tablet 25 mg PO MOTUWETHFRSA SLEEP 04/04/22 [History Last Taken Unknown] nadolol 20 mg tablet 20 mg PO DAILY #30 tabs 03/11/23 [Rx Last Taken Unknown] pantoprazole 40 mg tablet,delayed release 40 mg PO DAILY #90 tabs 03/11/23 [Rx Last Taken Unknown] ginkgo biloba 60 mg capsule 60 mg PO DAILY 05/08/23 [History Last Taken Unknown] glucosamine 500 xn-owevfeyzp-jcojswvg comp 400 mg-D3 667 unit-C-Mn cap (Bhwlhdnlqvq-Jmvrtfhlcpu-Z7(C-manganese)) 1 cap PO DAILY 05/08/23 [History Last Taken Unknown] magnesium 250 mg tablet 250 mg PO DAILY 05/08/23 [History Last Taken Unknown] milk thistle 175 mg capsule 175 mg PO DAILY 05/08/23 [History Last Taken Unknown] progesterone micronized 100 mg capsule 500 mg PO QHS 05/08/23 [History Last Taken Unknown] tizanidine 4 mg capsule 4 mg PO Q8H PRN Pain 05/08/23 [History Last Taken Unknown] gabapentin 300 mg capsule 300 mg PO TID #90 caps 06/07/23 [Rx Last Taken Unknown] famotidine 40 mg tablet 40 mg PO QHS #90 tabs 06/11/23 [Rx Last Taken Unknown] duloxetine 60 mg capsule,delayed release 60 mg PO BID 07/07/23 [History Last Taken Unknown] lactulose 10 gram/15 mL (15 mL) oral solution 15 ml PO TID PRN ammonia 07/07/23 [History Last Taken Unknown] lidocaine 5 % topical ointment 1 applic topical TID PRN pain #50 grams 07/07/23 [Rx Last Taken Unknown] rifaximin 550 mg tablet (Xifaxan) 550 mg PO BID 30 days #60 tabs 07/15/23 [Rx Last Taken Unknown] oxycodone 5 mg tablet 5 mg PO Q6H PRN pain 1 day #4 tabs 11/26/23 [Rx Last Taken Unknown] Allergy/AdvReac Type Severity Reaction Status Date / Time No Known Allergies Allergy Verified 11/26/23 16:20 Family History Mother Dementia Father Diabetes Surgical History History of esophagogastroduodenoscopy (EGD) History of liver biopsy History of tonsillectomy and adenoidectomy Social History household members: spouse Smoking Status: Never smoker alcohol intake: former year quit: 2020 substance use type: does not use ROS <RACHELL Palomino - Last Filed: 11/26/23 19:21> ROS ED Constitutional Constitutional ED: Denies chills or fever(s) Cardiovascular Cardiovascular: Denies chest pain Respiratory/Chest Respiratory/Chest: Denies cough or dyspnea Gastrointestinal Gastrointestinal: Denies abdominal pain, nausea or vomiting Musculoskeletal Musculoskeletal: Denies arthralgias or myalgias Integumentary Denies rash Neurologic Neurologic: Reports paresthesias EXAM <RACHELL Palomino - Last Filed: 11/26/23 19:21> Physical Exam Const Vital Signs: 11/26/23 16:17 Temperature 98.1 F Temperature Source Temporal Pulse Rate 84 Respiratory Rate 16 Blood Pressure 125/87 H Blood Pressure Mean 99 Pulse Ox 99 Oxygen Delivery Method Room Air Positive well nourished, well developed and no apparent distress General Appearance ED: well developed HEENT Reports normocephalic and head/scalp atraumatic Mouth ED: Yes moist mucous membranes normal Eyes PERRL and EOMs intact bilaterally Neck full ROM and supple Chest Wall inspection of chest normal Resp normal respiratory effort and clear to auscultation bilaterally Cardio regular rate and regular rhythm GI soft to palpation, non-tender, non-distended and no masses Back/Spine normal ROM and normal to inspection Extremity normal to inspection and full ROM Extremity Narrative: Right DP pulse 2+, good capillary refill, sensation intact, no signs of ischemic limb. Neuro oriented x3, CN's II-XII intact bilaterally, moves all extremities, no focal motor deficits and no sensory deficits noted Sensorium / Orientation: awake and alert Psych mental status grossly normal and thought process normal Skin no rashes or lesions noted and no wounds <Dr. Gustavo Snyder, DO - Last Filed: 11/26/23 19:15> Physical Exam Const Vital Signs: 11/26/23 16:17 Temperature 98.1 F Temperature Source Temporal Pulse Rate 84 Respiratory Rate 16 Blood Pressure 125/87 H Blood Pressure Mean 99 Pulse Ox 99 Oxygen Delivery Method Room Air MDM <RACHELL Palomino - Last Filed: 11/26/23 19:21> MDM MDM Narrative Medical decision making narrative: Presenting today due to an exacerbation of her chronic neuropathic pain. Patient has a longstanding history of this and has been seen here in the emergency department multiple times for similar symptoms. She is well-appearing and in no acute distress. Low suspicion for fracture, I do not feel that any imaging is indicated. She reports that she did a telehealth visit and they told her they were concerned that she could have a blood clot, however, symptoms are not consistent with DVT. I did offer her pain control here, she reports that she does not have pain at the moment, she just has numbness in her bilateral lower extremities, worse on the right side. She did request to have something for home in case the sharp pains come back in her right foot. She will be given a few oxycodone for home and will be discharged home in stable condition. She is comfortable with plan. <Dr. Gustavo Snyder, DO - Last Filed: 11/26/23 19:15> [facility] Treatment and Re-Evaluation :: I have personally performed a face to face assessment of the patient and have reviewed the PATRICE Note. I performed a substantive portion of the visit including all aspects of the following. My ureña findings include: History: Patient presents with right foot pain that began today. Patient states she has a history of neuropathy in her right foot. Patient states she sat down and put her foot up today. Patient states that when she got up she accidentally bumped a box. Patient states that the pain started in her foot and radiated up her leg and then up into her arm. Patient admits to some tingling. Patient states she did take a gabapentin which helped with her pain. Patient denies any other trauma or injury. Exam: Vital signs are stable. Patient is afebrile. Patient is in no acute distress. Musculoskeletal exam reveals mild tenderness over the right foot, ankle, and leg. There is no edema or ecchymosis. There is no bony crepitance or step-off. There is no deformity noted. There is good range of motion of the right foot, ankle, and leg. Pedal pulses are equal bilateral. Sensation was intact to light touch in all digits. Capillary refill was less than 2 seconds in all digits. Medical Decision Making: Patient was advised that this is unlikely from a fracture. I do not feel x-rays are necessary at this time since there is no ecchymosis or deformity. Patient is agreeable with this. Patient was advised that it is most likely a contusion or a exacerbation of her neuropathy. Patient was given a prescription for a short course of oxycodone. Patient was instructed to follow-up with her primary care physician in 5 to 7 days. Patient was instructed return if worse in any way. Patient understood and was agreeable with the plan. All questions were answered. Discharge Plan Triage Chief Complaint: Lower Extremity Injury ED Midlevel Provider: Zonia Arreaga ED Provider: Gustavo Snyder Dx/Rx/DC Orders Clinical Impression: Pain in right foot, Neuropathic pain Instructions: ED Foot Contusion, ED Neuropathy, Peripheral Prescriptions: Continued oxycodone 5 mg tablet 5 mg PO Q6H PRN (Reason: pain) 1 Days Qty: 4 0RF No Action gabapentin 300 mg capsule 300 mg PO TID Qty: 90 3RF melatonin 10 mg Tablet 10 mg PO QHS folic acid 1 mg Tablet 1 mg PO DAILY multivitamin Capsule 1 cap PO DAILY trazodone 50 mg Tablet 25 mg PO MOTUWETHFRSA Rx Instructions: DONT TAKE ON SATURDAY thiamine HCl (vitamin B1) [Vitamin B-1] 100 mg Tablet 100 mg PO DAILY cholecalciferol (vitamin D3) [Vitamin D3] 125 mcg (5,000 unit) Tablet 125 mcg PO DAILY magnesium 250 mg Tablet 250 mg PO DAILY ginkgo biloba 60 mg Capsule 60 mg PO DAILY Rx Instructions: give with meal/snack progesterone micronized 100 mg Capsule 500 mg PO QHS tizanidine 4 mg Capsule 4 mg PO Q8H PRN (Reason: Pain) milk thistle 175 mg Capsule 175 mg PO DAILY Rx Instructions: give with meal/snack Reklijlcflp-Iqgncg-Q0 (C-hung) 500-400-667 mg-mg-unit Capsule 1 cap PO DAILY duloxetine 60 mg capsule,delayed release(DR/EC) 60 mg PO BID lactulose 10 gram/15 mL (15 mL) solution 15 ml PO TID PRN (Reason: ammonia) lidocaine 5 % ointment 1 applic topical TID PRN (Reason: pain) Qty: 50 0RF pantoprazole 40 mg tablet,delayed release (DR/EC) 40 mg PO DAILY Qty: 90 2RF nadolol 20 mg tablet 20 mg PO DAILY Qty: 30 11RF famotidine 40 mg tablet 40 mg PO QHS Qty: 90 5RF Xifaxan 550 mg tablet 550 mg PO BID 30 Days Qty: 60 11RF Primary Care Provider: NEGRITA CARLTON: NEGRITA CARLTON, SYSTEMS ANALYSIS MANAGER-C [Primary Care Provider] - 3-5 Days Disposition Disposition: Home, Self Care
--- OUTSIDE RECORDS SUMMARY | 2023-11-26 18:20 | XMS RPT_ITS | CCD ---
Author Name Unknown Address [address] [place] [address] Organization [facility] Care Team Providers Care Intellectual Property Paralegal Name Role Phone Unavailable Primary Care Provider UnavailRobert Mims MD Primary Care Provider Jesenia Rivera DO, Nicholas E Unavailable ROBERT PEARSON MD Primary Care Unavailable ANGELIC MIGUEL MD Attending Unavailable ROBERT PEARSON MD Attending Unavailable ROBERT PEARSON MD Referring Unavailable ROBERT PEARSON MD Primary Care Unavailable ROBERT HOUSER Attending Unavailable ROBERT PEARSON MD Primary Care Unavailable ROBERT PEARSON MD Attending Unavailable ROBERT PEARSON MD Primary Care Unavailable ROBERT PEARSON MD Attending Unavailable ROBERT PEARSON MD Primary Care Unavailable ROBERT PEARSON MD Attending Unavailable ROBERT PEARSON MD Primary Care Unavailable ROBERT PEARSON MD Primary Care Unavailable MARIYA NORTON PA-C Attending Unavailable VEDA ALVARADO Attending Unavailable PHYSICIAN, NONE Primary Care Unavailable Lisa Jimenez Unavailable Friend Leodan MAHMOOD Unavailable [phone] BATCH OPERATOR.Aure EDWARDS Primary Care Provider Priyanka Lyons Unavailable [phone] Justice Painter DPM Unavailable [phone] ANGELIC TAMEZ DO Attending Unavailable ANGELIC TAMEZ DO Primary Care Unavailable ANGELIC TAMEZ DO Admitting Unavailable Lisa Jimenez DO Unavailable TERE PAINTER Attending Unavailable TERE PAINTER Referring Unavailable TERE PAINTER Attending Unavailable МАРИНА SHULTZ Attending Unavailab le NOLING, AURE L Primary Care Unavailable NOLING, AURE L Attending Unavailable NOLING, AURE L Referring Unavailable NOLING, AURE L Primary Care Unavailable NOLING, AURE L Primary Care Unavailable GEOVANY ROCHA Attending Unavailable NOLING, AURE L Attending Unavailable NOLING, AURE L Referring Unavailable NOLING, AURE L Primary Care Unavailable NOLING, AURE L Primary Care Unavailable PAWA, PRATHEEP Attending Unavailable PAWA, PRATHEEP Referring Unavailable NOLING, AURE L Primary Care Unavailable NOLING, AURE L Attending Unavailable NOLING, AURE L Referring Unavailable NOLING, AURE L Primary Care Unavailable NOLING, AURE L Primary Care Unavailable REYES, SON N Attending Unavailable REYES, SON N Referring Unavailable NOLING, AURE L Primary Care Unavailable ASH CORTEZ Attending Unavailable ASH CORTEZ Referring Unavailable MARIANA FUCHS Attending Unavailable PAWA, PRATHEEP Attending Unavailable TANIA CENTENO Attending Unavailable JEROD LEWIS JR Referring Unavailab le LILI, ROBERT Primary Care Unavailable JEROD LEWIS JR Referring Unavailab le LILI, ROBERT Primary Care Unavailable SELF Referring Unavailable LILI, ROBERT Primary Care Unavailable MARIANA FUCHS Attending Unavailable MARIANA FUCHS Referring Unavailable LILI, ROBERT Primary Care Unavailable SELF Referring Unavailable LILI, ROBERT Primary Care Unavailable ROGER PERRY Referring Unavailable NOLING, AURE L Primary Care Unavailable NOLING, AURE L Primary Care Unavailable ROGER PERRY Attending Unavailable Medications Current Medications Medication Drug Class(es) Dates Sig (Normalized) Sig (Original) acetaminophen 325 mg / HYDROcodone bitartrate 5 mg oral tablet (1 source) Opioid Agonist Start: 12-31-2022 End: 01-03-2023 take 1 tablet by mouth every six hours as needed for pain HYDROcodone-aceta minophen (NORCO) 5-325 mg per tablet Indications: Rib contusion, left, initial encounter Take 1 tablet by mouth every 6 hours as needed for pain for up to 3 days. 12 tablet 0 12/31/2022 01/03/2023 Active Completed/Discontinued Medications Medication Drug Class(es) Dates Sig (Normalized) Sig (Original) [id number] 200 actuat albuterol 0.09 mg/actuat metered dose inhaler (1 source) beta2-Adrenergic Agonist Start: 11-17-2023 take 1-2 puff(s) by inhalation four times daily as needed for wheezing albuterol HFA (PROVENTIL HFA) 90 mcg/actuation inhaler Indications: URI, acute Inhale 1-2 Puffs as instructed four times a day as needed for wheezing/shortnes s of breath. 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] Onset: 12-27-2022 Chronic Anxiety disorders (15 sources) Mixed anxiety and depressive disorder; Translations: [Other specified anxiety disorders] Onset: 05-26-2023 05-26-2023 Chronic Crushing injury or internal injury (1 source) Injury of spleen; Translations: [Unspecified injury of spleen, initial encounter] Episodic Delirium, dementia, and amnestic and other cognitive disorders (14 sources) Delirium due to multiple etiological factors; Translations: [Delirium due to known physiological condition] Onset: 10-07-2021 11-17-2021 Chronic Disorders of lipid metabolism (14 sources) Hyperlipidemia; Translations: [Hyperlipidemia, unspecified] Onset: 05-08-2023 08-14-2023 Chronic Menopausal disorders (1 source) Menopausal and female climacteric states; Translations: [Symptomatic menopausal or female climacteric states] Onset: 05-08-2023 Chronic Mood disorders (20 sources) Depressive disorder; Translations: [Depressive disorder] Onset: 10-07-2021 11-17-2021 Chronic Mood disorders (1 source) Mood disorders; Translations: [Depression, unspecified depression type] Onset: 08-14-2023 Nutritional deficiencies (15 sources) Malnutrition (calorie); Translations: [Moderate protein-calorie malnutrition] Onset: 10-31-2021 11-17-2021 Chronic Other aftercare (1 source) Encounter for therapeutic drug level monitoring; Translations: [Medication monitoring encounter] Onset: 10-31-2023 Episodic Other connective tissue disease (1 source) Paraparesis; Translations: [Other symptoms and signs involving the musculoskeletal system] 08-16-2023 Episodic Other connective tissue disease (3 sources) Pain in right foot; Translations: [Pain in right foot] 09-08-2023 Episodic Other connective tissue disease (1 source) Pain in limb; Translations: [Pain in unspecified limb] 09-25-2023 Episodic Other connective tissue disease (1 source) Pain in unspecified limb; Translations: [Pain in soft tissues of limb] Onset: 09-25-2023 Episodic Other connective tissue disease (2 sources) Pain in right foot; Translations: [Foot pain, right] Onset: 09-08-2023 Episodic Other inflammatory condition of skin (1 source) Itching of skin; Translations: [Pruritus, unspecified] Episodic Other liver diseases (13 sources) Cirrhosis of liver; Translations: [Unspecified cirrhosis of liver] Onset: 07-16-2022 08-14-2023 Chronic Other nervous system disorders (14 sources) Metabolic encephalopathy; Translations: [Metabolic encephalopathy] Onset: 10-12-2021 11-17-2021 Chronic Other nervous system disorders (6 sources) Neuropathy; Translations: [Polyneuropathy, unspecified] Onset: 10-19-2021 05-26-2023 Chronic Other nervous system disorders (11 sources) Peripheral nerve disease ; Translations: [Polyneuropathy, unspecified] Onset: 08-16-2022 08-16-2023 Chronic Other nervous system disorders (2 sources) Polyneuropathy, unspecified; Translations: [Neuropathy] Onset: 08-14-2023 Chronic Other screening for suspected conditions (not mental disorders or infectious disease) (3 sources) Patient encounter status; Translations: [Encounter for screening for malignant neoplasm of colon] Onset: 05-08-2023 09-06-2023 Episodic Other upper respiratory infections (3 sources) Acute upper respiratory infection; Translations: [Acute upper respiratory infection, unspecified] Onset: 08-17-2023 11-02-2023 Episodic Residual codes; unclassified (12 sources) Insomnia; Translations: [Insomnia, unspecified] Onset: 09-06-2023 09-06-2023 Episodic Residual codes; unclassified (1 source) Insomnia, unspecified; Translations: [Insomnia, unspecified type] Onset: 09-06-2023 Episodic Sprains and strains (2 sources) Sprain of right foot; Translations: [Unspecified sprain of right foot, initial encounter] Onset: 09-08-2023 09-08-2023 Episodic Past or Other Problems Problem Classification Problem Date Documented Da te Episodic/Chronic Chronic obstructive pulmonary disease and bronchiectasis (2 sources) Bronchitis; Translations: [Bronchitis, not specified as acute or chronic] Onset: 05-26-2023 05-26-2023 Episodic Genitourinary symptoms and ill-defined conditions (3 sources) Dysuria; Translations: [Dysuria] Onset: 02-10-2023 Episodic Malaise and fatigue (1 source) Other fatigue; Translations: [Other fatigue] Onset: 05-08-2023 Episodic Nutritional deficiencies (13 sources) Wernicke's disease; Translations: [Wernicke's encephalopathy] Onset: 03-05-2023 08-14-2023 Episodic Other inflammatory condition of skin (1 source) Pruritus, unspecified; Translations: [Pruritus] Onset: 05-07-2023 Episodic Other lower respiratory disease (1 source) Rib pain Onset: 01-06-2023 Episodic Residual codes; unclassified (20 sources) Hallucinations; Translations: [Hallucinations, unspecified] Onset: 10-06-2021 11-17-2021 Episodic Residual codes; unclassified (1 source) Hallucinations, unspecified; Translations: [Hallucinations] Onset: 11-17-2021 Episodic Superficial injury; contusion (4 sources) Contusion of rib; Translations: [Contusion of left front wall of thorax, initial encounter] Onset: 12-31-2022 Episodic Urinary tract infections (6 sources) Recurrent urinary tract infection; Translations: [Urinary tract infection, site not specified] Onset: 12-31-2022 Episodic Results Test Name Value Interpretation Reference Range Facil ity Vital Signs Date Time Vital Sign Value Performing Clinician Faci lity 11-02-2023 13:09-0500 Body temperature 97.2 [degF] Aurelio Reyes MD Work Phone: [facility] 11-02-2023 13:09-0500 Body weight 83.01 kg Aurelio Reyes MD Work Phone: [facility] 11-02-2023 13:09-0500 Diastolic blood pressure 90 mm[Hg] Aurelio Reyes MD Work Phone: [facility] 11-02-2023 13:09-0500 Heart rate 72 /min Aurelio Reyes MD Work Phone: [facility] 11-02-2023 13:09-0500 Respiratory rate 18 /min Aurelio Reyes MD Work Phone: [facility] 11-02-2023 13:09-0500 SaO2% (BldA) [Mass fraction] 99 % Aurelio Reyes MD Work Phone: [facility] 11-02-2023 13:09-0500 Systolic blood pressure 137 mm[Hg] Aurelio Reyes MD Work Phone: [facility] 09-25-2023 14:44-0500 Body height 177.8 cm [facility]ина [facility] BATCH OPERATOR.TOBACCO FLAVORER Work Phone: [facility] 09-25-2023 14:44-0500 Body weight 84.37 kg [facility] BATCH OPERATOR.TOBACCO FLAVORER Work Phone: [facility] 09-08-2023 16:08-0400 Body temperature 97.39 [degF] Cr Grove MD Work Phone: [facility] 09-08-2023 16:08-0400 Diastolic blood pressure 74 mm[Hg] Cr Grove MD Work Phone: [facility] 09-08-2023 16:08-0400 Heart rate 69 /min Cr Grove MD Work Phone: [facility] 09-08-2023 16:08-0400 Respiratory rate 18 /min Cr Grove MD Work Phone: [facility] 09-08-2023 16:08-0400 SaO2% (BldA) [Mass fraction] 97 % Cr Grove MD Work Phone: [facility] 09-08-2023 16:08-0400 Systolic blood pressure 118 mm[Hg] Cr Grove MD Work Phone: [facility] 09-06-2023 13:59-0400 Body height 177.8 cm Aure Noling BATCH OPERATOR.TOBACCO FLAVORER Work Phone: [facility] 09-06-2023 13:59-0400 Body temperature 97.9 [degF] Aure Noling BATCH OPERATOR.TOBACCO FLAVORER Work Phone: [facility] 09-06-2023 13:59-0400 Body weight 84.55 kg Aure Noling BATCH OPERATOR.TOBACCO FLAVORER Work Phone: [facility] 09-06-2023 13:59-0400 Diastolic blood pressure 68 mm[Hg] Aure Noling BATCH OPERATOR.TOBACCO FLAVORER Work Phone: [facility] 09-06-2023 13:59-0400 Heart rate 76 /min Aure Noling BATCH OPERATOR.TOBACCO FLAVORER Work Phone: [facility] 09-06-2023 13:59-0400 Respiratory rate 17 /min Aure Noling BATCH OPERATOR.TOBACCO FLAVORER Work Phone: [facility] 09-06-2023 13:59-0400 SaO2% (BldA) [Mass fraction] 99 % Aure Noling BATCH OPERATOR.TOBACCO FLAVORER Work Phone: [facility] 09-06-2023 13:59-0400 Systolic blood pressure 110 mm[Hg] Aure Noling BATCH OPERATOR.TOBACCO FLAVORER Work Phone: [facility] 05-26-2023 10:28-0400 Body temperature 97.7 [degF] [facility] [employer] Work Phone: [facility] 05-26-2023 10:28-0400 Body weight 80.29 kg [facility] [employer] Work Phone: [facility] 05-26-2023 10:28-0400 Diastolic blood pressure 67 mm[Hg] [facility] [employer] Work Phone: [facility] 05-26-2023 10:28-0400 Heart rate 77 /min [facility] [employer] Work Phone: [facility] 05-26-2023 10:28-0400 Respiratory rate 20 /min [facility] [employer] Work Phone: [facility] 05-26-2023 10:28-0400 SaO2% (BldA) [Mass fraction] 97 % [facility] [employer] Work Phone: [facility] 05-26-2023 10:28-0400 Systolic blood pressure 122 mm[Hg] [facility] [employer] Work Phone: [facility] 05-07-2023 12:02-0400 Body temperature 97.7 [degF] Tania Centeno MD Work Phone: [facility] 05-07-2023 12:02-0400 Body weight 81.74 kg Tania Centeno MD Work Phone: [facility] 05-07-2023 12:02-0400 Diastolic blood pressure 85 mm[Hg] Tania Centeno MD Work Phone: [facility] 05-07-2023 12:02-0400 Heart rate 73 /min Tania Centeno MD Work Phone: [facility] 05-07-2023 12:02-0400 Respiratory rate 18 /min Tania Centeno MD Work Phone: [facility] 05-07-2023 12:02-0400 SaO2% (BldA) [Mass fraction] 98 % Tania Centeno MD Work Phone: [facility] 05-07-2023 12:02-0400 Systolic blood pressure 131 mm[Hg] Tania Centeno MD Work Phone: [facility] 03-14-2023 08:54-0400 Heart rate 45 /min Tere Painter MD Work Phone: [facility] 03-14-2023 08:54-0400 Respiratory rate 16 /min Tere Painter MD Work Phone: [facility] 03-14-2023 08:54-0400 SaO2% (BldA) [Mass fraction] 99 % Tere Painter MD Work Phone: [facility] 02-10-2023 12:25-0400 Body temperature 98.29 [degF] Cr Grove MD Work Phone: [facility] 02-10-2023 12:25-0400 Body weight 80.74 kg Cr Groev MD Work Phone: [facility] 02-10-2023 12:25-0400 Diastolic blood pressure 74 mm[Hg] Cr Grove MD Work Phone: [facility] 02-10-2023 12:25-0400 Heart rate 62 /min Cr Grove MD Work Phone: [facility] 02-10-2023 12:25-0400 Respiratory rate 18 /min Cr Grove MD Work Phone: [facility] 02-10-2023 12:25-0400 SaO2% (BldA) [Mass fraction] 100 % Cr Grove MD Work Phone: [facility] 02-10-2023 12:25-0400 Systolic blood pressure 121 mm[Hg] Cr Grove MD Work Phone: [facility] 01-06-2023 14:01-0500 Body temperature 98.6 [degF] Mariana Fuchs DO Work Phone: [facility] 01-06-2023 14:01-0500 Body weight 83.92 kg Mariana Fuchs DO Work Phone: [facility] 01-06-2023 14:01-0500 Diastolic blood pressure 63 mm[Hg] Mariana Fuchs DO Work Phone: [facility] 01-06-2023 14:01-0500 Heart rate 66 /min Mariana Fuchs DO Work Phone: [facility] 01-06-2023 14:01-0500 Respiratory rate 16 /min Mariana Fuchs DO Work Phone: [facility] 01-06-2023 14:01-0500 SaO2% (BldA) [Mass fraction] 99 % Mariana Fuchs DO Work Phone: [facility] 01-06-2023 14:01-0500 Systolic blood pressure 124 mm[Hg] Mariana Fuchs DO Work Phone: [facility] 12-31-2022 11:28-0500 Body temperature 97.7 [degF] Ash Dyko PA-C Work Phone: [facility] 12-31-2022 11:28-0500 Body weight 82.1 kg Ash Dyko PA-C Work Phone: [facility] 12-31-2022 11:28-0500 Diastolic blood pressure 70 mm[Hg] Ash Dyko PA-C Work Phone: [facility] 12-31-2022 11:28-0500 Heart rate 60 /min Ash Dyko PA-C Work Phone: [facility] 12-31-2022 11:28-0500 Respiratory rate 16 /min Ash Dyko PA-C Work Phone: [facility] 12-31-2022 11:28-0500 SaO2% (BldA) [Mass fraction] 99 % Ash Dyko PA-C Work Phone: [facility] 12-31-2022 11:28-0500 Systolic blood pressure 108 mm[Hg] Ash Dyko PA-C Work Phone: [facility] 12-27-2022 09:32-0500 Heart rate 69 /min Tere Painter MD Work Phone: [facility] 12-27-2022 09:32-0500 Respiratory rate 16 /min Tere Painter MD Work Phone: [facility] 12-27-2022 09:32-0500 SaO2% (BldA) [Mass fraction] 99 % Tere Painter MD Work Phone: [facility] Encounters Encounter Date Encounter Type Care Provider Facility Start: 11-18-2023 End: 11-19-2023 [facility] Facility:[facility] Start: 11-17-2023 End: 11-17-2023 ambulatory AURE L BRANDT Facility:[facility] Start: 11-17-2023 End: 11-17-2023 ambulatory Roger Perry BATCH OPERATOR.JERRY Work Phone: Telemedicine Procedures Date Procedure Procedure Detail Performing Clinician Start: 05-09-2023 Lipid 1996 panel - S reyes or Plasma Aure Noandrea BATCH OPERATOR.TOBACCO FLAVORER Work Phone: Start: 05-07-2023 Urnls dip stick/tabl et rgnt auto w/o microscopy Tania Centeno MD Work Phone: Start: 02-10-2023 Urnls dip stick/tabl et rgnt auto w/o microscopy Cr Grove MD Work Phone: Start: 12-31-2022 Urnls dip stick/tabl et rgnt auto w/o microscopy Ash Cortez PA-C Work Phone: Plan of Treatment Date Care Activity Detail Author Start: 05-30-2033 Urine microalbumin profile DTa P,Tdap,Td Vaccine (2 - Td or Tdap) [facility] Start: 05-09-2028 Lipid 1996 panel - S reyes or Plasma Lipid Screening [facility] Start: 05-09-2028 Lipid panel Lipid Screening [facility] Start: 05-09-2028 LIPID SCREEN LIPID SCREEN [facility] Start: 03-01-2028 HPV Testing HPV Testing [facility] Start: 03-01-2028 Pap Testing Pap Testing [facility] Start: 03-01-2028 Screening for malign ant neoplasm of cervix [facility] Start: 02-01-2027 L[address] S[address]EN L[address]ID SCREEN [facility] Start: 05-09-2026 DIABETES SCREEN DIABETES SCREEN [facility] Start: 05-09-2026 Diabetes Screening Diabetes Screenin g [facility] Start: 02-01-2025 DIABETES SCREEN DIABETES SCREEN [facility] Start: 10-31-2024 Covid-19 Vaccine (#1) Covid-19 Vacci ne (#1) [facility] Immunizations Immunization Date Immunization Notes Care Provider Fa lissa 09-30-2023 zoster vaccine recombinant Chantale Sheth LMGaurav [facility] 05-30-2023 tetanus toxoid, redu nataly diphtheria toxoid, and acellular pertussis vaccine, adsorbed Aure Noling BATCH OPERATOR.TOBACCO FLAVORER Work Phone: [facility] 03-08-2023 zoster vaccine recombinant Aure Noling BATCH OPERATOR.TOBACCO FLAVORER Work Phone: [facility] Payers Date Payer Category Payer Unknown [id number] 2022 Unknown [id number] 2022 Unknown [employer] P[employer] [id number] 2022-Present [phone] [address] [place] [address] PPO [id number] 2022 Unknown [id number] 2022 Unknown [id number] 1970 Unknown [id number] 1970 Unknown [id number]. 1970 Unknown [id number] 1970 Unknown [id number] 1970 Unknown [id number]. 1970 Unknown [id number]. 1970 Unknown [id number]. 1970 Unknown [id number] 1970 Unknown [id number] Social History Date [facility]ail [facility] Start: 1970 Sex Assigned At Not on file [facility] Start: 08-28-2022 End: 05-26-2023 Tobacco smoking status NHIS Never smoked tobacco [facility] Start: 08-28-2022 End: 05-26-2023 Tobacco use and exposure Smokeless tobacco non-user [facility] Start: 12-27-2022 End: 11-02-2023 Alcohol intake Ex-drinker (finding) [facility] Start: 04-25-2023 End: 05-26-2023 History of [address] [facility] Start: 04-25-2023 End: 05-26-[address] [facility] Adult Depression Screening Assessment 4 [facility] How often to you hav e a drink containing alcohol? Never [facility] (I/We) worried barb er (my/our) food would run out before (I/we) got money to buy more. Never true [facility] In the past 12 month s, was there a time when you were not able to pay the mortgage or rent on time? No [facility] NEGATED: Highlighted rowStart: REJIF History of tobacco use Passive smoker [facility] Clinical Notes 05-30-2022 to 11-17-2023 Patient InstructionsRoger Perry APRN.TOBACCO FLAVORER - 11/17/2023 1:25 PM Laura Moseley RT(R) - 11/02/2023 2:00 PM Aurelio Wall MD - 11/02/2023 1:34 PM ESTPatient InstructionsPatient Instructions Note Date & Type Note Facility 11-17-2023 Note HNO ID: [id number] Author: Roger Perry APRN.TOBACCO FLAVORER Service: ? Author Type: Nurse Practitioner Type: Progress Notes Filed: 11/17/2023 4:05 PM Note Text: Telemedicine Visit - Distance Health Virtual Visit Note Patient seen on [employer] Video Visit platform. Location of patient: [place] History of Present Illness Dominic Jimenez is a 53 year old year old female who presents for the past 2 days with symptoms that are:gradually worsening. Symptoms include: Positive for Chills/Sweats, Cough, and Fatigue, Negative for SOB, Wheezing, Face pain/pressure, Headache, Sore throat, Nausea, Emesis, and Diarrhea Oral intake: adequate Sick contacts: yes son and spouse Recent travel: none OTC meds/remedies that patient has tried: Mucinex Home Covid test negative No other new and worsening symptoms PAST MEDICAL HISTORY Diagnosis Date Alcoholic cirrhosis (HCC) Alcoholic hepatitis Anemia Clostridium difficile infection COVID-19 virus infection 08/2021 hospitalized Delirium 10/2021 prolonged hospital stay 09/2021-10/2021 at [facility] Depression Esophageal varices (HCC) Fatigue Hepatic encephalopathy (HCC) Neuropathy Splenomegaly Subdural hematoma (HCC) 09/2021 bilateral PAST SURGICAL HISTORY Procedure Laterality Date EGD 04/05/2022 TONSILLECTOMY AND ADENOIDECTOMY HX 1975 No family history on file. Social History Tobacco Use Smoking status: Never Passive exposure: Never Smokeless tobacco: Never Vaping Use Vaping Use: Never used Substance Use Topics Alcohol use: Not Currently Drug use: Not Currently Current Outpatient Medications Medication Sig dexAMETHasone (DECADRON) 4 mg tablet Take 4 mg by mouth as directed. methocarbamol (ROBAXIN) 500 mg tablet Take 1 tablet by mouth three times a day. citalopram hydrobromide (CELEXA) 10 mg tablet Take 1.5 tablets by mouth once daily. traZODone (DESYREL) 150 mg tablet Take 1 tablet by mouth daily at bedtime. progesterone micronized (PROMETRIUM) 100 mg capsule Take by mouth. estradiol (ESTRACE) 0.01 % (0.1 mg/gram) vaginal cream INSERT 1 GRAM VAGINALLY THREE TIMES A WEEK BEFORE BED gabapentin (NEURONTIN) 100 mg capsule Take 1 capsule by mouth at bedtime as needed for up to 90 days. rifAXIMin (XIFAXAN) 550 mg tablet Take 550 mg by mouth twice daily. GEMTESA 75 mg tablet Take 1 tablet by mouth every afternoon. gabapentin (NEURONTIN) 300 mg capsule Take 300 mg by mouth three times daily. lactulose 10 gram/15 mL solution Take 10 g by mouth three times daily as needed. ascorbic acid, vitamin C, (VITAMIN C) 500 mg tablet Take 500 mg by mouth once daily. cranberry fruit extract (CRANBERRY EXTRACT) 500 mg tab Take 1 tablet by mouth three times daily. d-mannose 500 mg cap Take 1,000 mg by mouth twice daily. Magnesium 250 mg tab Take 250 mg by mouth once daily. glucosamine/chondr jefferson A sod (GLUCOSAMINE-CHONDROITIN) 750-600 mg tab Take 1 tablet by mouth once daily. Lactobac no.41/Bifidobact no.7 (PROBIOTIC-10 ORAL) Take 1 tablet by mouth once daily. vitamin B complex (B COMPLEX 1 ORAL) Take 1 tablet by mouth once daily. DULoxetine (CYMBALTA) 60 mg capsule 1 capsule twice daily. estradiol 0.01% estriol 0.01% topical cream (CPD) Apply 0.1ml to upper inner arm daily. PROGESTERONE MISC Dissolve one triturate under the tongue at bedtime. Milk Thistle 175 mg tab Take 1 tablet by mouth once daily. cyanocobalamin (VITAMIN B-12) 1,000 mcg tab Take 1 tablet by mouth once daily. ginkgo biloba leaf extract 60 mg tab Take 1 tablet by mouth once daily. famotidine (PEPCID) 40 mg tablet Take 40 mg by mouth daily at bedtime. nadolol (CORGARD) 20 mg tablet Take 20 mg by mouth once daily. For 30 days dvvwauwbpdsv-kihtxweb-kafunzo k-coenzyme Q-10 (DEKAS PLUS) 200 mcg-1,000 mcg-10 mg chewable tablet Take 1 tablet by mouth once daily. folic acid 1 mg tablet Take 1 mg by mouth once daily. pantoprazole DR (PROTONIX) 40 mg tablet Take 40 mg by mouth once daily. thiamine (VITAMIN B1) 100 mg tablet Take 100 mg by mouth once daily. cholecalciferol (VITAMIN D3) 5,000 unit tab Take 5,000 Units by mouth once daily. No current facility-administered medications for this visit. ALLERGIES No Known Allergies ROS- As noted in HPI Video Exam (Examination performed via Video enabled technology) General appearance: Alert, oriented, pleasant, in NAD :Yes Ill appearing :No Oropharynx: normal, no erythema Frontal sinus tenderness by self palpation;No Maxillary sinus tenderness by self palpation :No Tender cervical adenopathy by self palpation :No Respiratory distress :No Coughing noted :Yes Audible wheezing noted :No ASSESSMENT/PLAN:2 1. URI, acute - ICD9: 465.9, ICD10: J06.9 - Discussed viral etiology and rationale for treatment. - Symptomatic treatment with prn analgesia - Supportive care with fluids and rest - Follow up in one week if symptoms persist or sooner if worsening of symptoms - Will get RSV/C (more content not included)... [facility] 11-17-2023 Instructions Roger Perry APRN.CNP - 11/17/2023 1:42 PM EST Treatment for Viral Upper Respiratory Tract Infections Your body will kill off the virus by itself. Additionally, you can prime your body's immune system. This may help you get better more quickly. Drink lots of fluids - at least one gallon of non-caffeinated liquids per day Make sure you are eating well Get plenty of rest - at least 8 hours of sleep per night for adults and more for children We do not have any medications that kill off these viruses. Antibiotics are used to treat bacterial infections; however, they are not active against viral infections. There are some things that might help you feel better, though. Vaporizers, humidifiers, hot showers, and hot fluids help open respiratory and sinus passages Sudafed is a safe and effective decongestant Major Nasal [place] may offer relief of nasal and head congestion Isaiah's Vapor Rub placed on a hot towel and draped over the head may relieve congestion Tylenol and Advil help control fevers and headaches Salt water gargles help relieve sore throats Chloraceptic spray or throat lozenges may also help relieve sore throat symptoms Robitussin DM will help loosen up secretions and also provide relief from a cough Occasionally, viral infections turn into something more serious. You should see your doctor or return to the Urgent Care if: You have fevers for longer than five days You have fevers above 102 degrees You are still sick after 10 days You have shortness of breath or wheezing After several days you are getting worse rather than better documented in this encounter [facility] 11-17-2023 History of Presen t illness Narrative Telemedicine Visit - Distance Health Virtual Visit Note Patient seen on [employer] Video Visit platform. Location of patient: [place] History of Present Illness Dominic Jimenez is a 53 year old year old female who presents for the past 2 days with symptoms that are:gradually worsening. Symptoms include: Positive for Chills/Sweats, Cough, and Fatigue, Negative for SOB, Wheezing, Face pain/pressure, Headache, Sore throat, Nausea, Emesis, and Diarrhea Oral intake: adequate Sick contacts: yes son and spouse Recent travel: none OTC meds/remedies that patient has tried: Mucinex Home Covid test negative No other new and worsening symptoms PAST MEDICAL HISTORY Diagnosis Date Alcoholic cirrhosis (HCC) Alcoholic hepatitis Anemia Clostridium difficile infection COVID-19 virus infection 08/2021 hospitalized Delirium 10/2021 prolonged hospital stay 09/2021-10/2021 at [facility] Depression Esophageal varices (HCC) Fatigue Hepatic encephalopathy (HCC) Neuropathy Splenomegaly Subdural hematoma (HCC) 09/2021 bilateral PAST SURGICAL HISTORY Procedure Laterality Date EGD 04/05/2022 TONSILLECTOMY AND ADENOIDECTOMY HX 1975 No family history on file. Social History Tobacco Use Smoking status: Never Passive exposure: Never Smokeless tobacco: Never Vaping Use Vaping Use: Never used Substance Use Topics Alcohol use: Not Currently Drug use: Not Currently Current Outpatient Medications Medication Sig dexAMETHasone (DECADRON) 4 mg tablet Take 4 mg by mouth as directed. methocarbamol (ROBAXIN) 500 mg tablet Take 1 tablet by mouth three times a day. citalopram hydrobromide (CELEXA) 10 mg tablet Take 1.5 tablets by mouth once daily. traZODone (DESYREL) 150 mg tablet Take 1 tablet by mouth daily at bedtime. progesterone micronized (PROMETRIUM) 100 mg capsule Take by mouth. estradiol (ESTRACE) 0.01 % (0.1 mg/gram) vaginal cream INSERT 1 GRAM VAGINALLY THREE TIMES A WEEK BEFORE BED gabapentin (NEURONTIN) 100 mg capsule Take 1 capsule by mouth at bedtime as needed for up to 90 days. rifAXIMin (XIFAXAN) 550 mg tablet Take 550 mg by mouth twice daily. GEMTESA 75 mg tablet Take 1 tablet by mouth every afternoon. gabapentin (NEURONTIN) 300 mg capsule Take 300 mg by mouth three times daily. lactulose 10 gram/15 mL solution Take 10 g by mouth three times daily as needed. ascorbic acid, vitamin C, (VITAMIN C) 500 mg tablet Take 500 mg by mouth once daily. cranberry fruit extract (CRANBERRY EXTRACT) 500 mg tab Take 1 tablet by mouth three times daily. d-mannose 500 mg cap Take 1,000 mg by mouth twice daily. Magnesium 250 mg tab Take 250 mg by mouth once daily. glucosamine/chondr jefferson A sod (GLUCOSAMINE-CHONDROITIN) 750-600 mg tab Take 1 tablet by mouth once daily. Lactobac no.41/Bifidobact no.7 (PROBIOTIC-10 ORAL) Take 1 tablet by mouth once daily. vitamin B complex (B COMPLEX 1 ORAL) Take 1 tablet by mouth once daily. DULoxetine (CYMBALTA) 60 mg capsule 1 capsule twice daily. estradiol 0.01% estriol 0.01% topical cream (CPD) Apply 0.1ml to upper inner arm daily. PROGESTERONE MISC Dissolve one triturate under the tongue at bedtime. Milk Thistle 175 mg tab Take 1 tablet by mouth once daily. cyanocobalamin (VITAMIN B-12) 1,000 mcg tab Take 1 tablet by mouth once daily. ginkgo biloba leaf extract 60 mg tab Take 1 tablet by mouth once daily. famotidine (PEPCID) 40 mg tablet Take 40 mg by mouth daily at bedtime. nadolol (CORGARD) 20 mg tablet Take 20 mg by mouth once daily. For 30 days bhsupjpvgvfn-dkubnxrp-ayshmrh k-coenzyme Q-10 (DEKAS PLUS) 200 mcg-1,000 mcg-10 mg chewable tablet Take 1 tablet by mouth once daily. folic acid 1 mg tablet Take 1 mg by mouth once daily. pantoprazole DR (PROTONIX) 40 mg tablet Take 40 mg by mouth once daily. thiamine (VITAMIN B1) 100 mg tablet Take 100 mg by mouth once daily. cholecalciferol (VITAMIN D3) 5,000 unit tab Take 5,000 Units by mouth once daily. No current facility-administered medications for this visit. ALLERGIES No Known Allergies ROS- As noted in HPI Video Exam (Examination performed via Video enabled technology) General appearance: Alert, oriented, pleasant, in NAD :Yes Ill appearing :No Oropharynx: normal, no erythema Frontal sinus tenderness by self palpation;No Maxillary sinus tenderness by self palpation :No Tender cervical adenopathy by self palpation :No Respiratory distress :No Coughing noted :Yes Audible wheezing noted :No ASSESSMENT/PLAN:2 1. URI, acute - ICD9: 465.9, ICD10: J06.9 - Discussed viral etiology and rationale for treatment. - Symptomatic treatment with prn analgesia - Supportive care with fluids and rest - Follow up in one week if symptoms persist or sooner if worsening of symptoms - Will get RSV/Covid swab - ALBUTEROL SULFATE HFA 90 MCG/ACTUATION AEROSOL INHALER - BENZONATATE 100 MG CAPSULE - COVID & INFLUENZA A/B & RSV NAAT, ROUTINE - Red flags discussed for need for in person care - All questions answered Roger Perry APRN.CNP I documented in this encounter [facility] 11-02-2023 Note HNO ID: [id number] Author: Laura Irvin RT(R) Service: Radiology Author Type: Technologist Type: Progress Notes Filed: 11/02/2023 1:49 PM Note Text: Radiology Service Progress Note PATIENT NAME: Dominic Jimenez DATE OF SERVICE: November 02, 2023 TIME: 1:48 PM PATIENT IDENTITY VERIFICATION COMPLETED USING TWO (2) IDENTIFIERS: Name and Date of confirmed by patient verbally. FALL SCREENING: Has the patient had 2 falls in the last year or 1 fall with injury or currently using an Ambulatory Assistive Device (Walker, Cane, Wheelchair, Crutches, etc.)? No PATIENT GENDER DATA: Female. status: : No status: N/A PATIENT RELEVANT IMPLANT DATA REVIEWED: Not Applicable RADIOLOGY DEPARTMENT: General X-ray: Exam(s) Completed: Lower Extremity X-Ray(s): Foot, Right PERIPHERAL IV DATA: Not applicable SIGNED BY: RT Carmen(R) November 02, 2023 1:[address] [facility] 11-02-2023 Note HNO ID: [id number] Author: Aurelio Reyes MD Service: ? Author Type: Physician Type: Progress Notes Filed: 11/02/2023 2:17 PM Note Text: Dominic Jimenez is a 53 year old female who presents with Pain (foot) (/Pt stated yesterday she fell and hit her foot /) and Ear Problem (C/o ringing in the ears that's causing her to feel dizzy ) HPI patient is a 53-year-old female who presented to the [facility] this afternoon with complaint of right foot pain the symptoms started yesterday after she fell off the steps and hit her foot, patient right the pain is dull achy and constant due to concern for is here for further evaluation and treatment. Today patient also complained of ringing in the ear that is causing her to feel dizzy the symptom has been going on for several day and due to concern patient here for further evaluation and treatment. PAST MEDICAL HISTORY Diagnosis Date Alcoholic cirrhosis (HCC) Alcoholic hepatitis Anemia Clostridium difficile infection COVID-19 virus infection 08/2021 hospitalized Delirium 10/2021 prolonged hospital stay 09/2021-10/2021 at [facility] Depression Esophageal varices (HCC) Fatigue Hepatic encephalopathy (HCC) Neuropathy Splenomegaly Subdural hematoma (HCC) 09/2021 bilateral ACTIVE PROBLEM LIST Hallucinations Depression Hyperlipidemia Hepatic Cirrhosis (Hcc) Neuropathy Wernicke's Disease Alcoholic Cirrhosis (Hcc) Insomnia Anxiety Current Outpatient Medications Medication Sig Dispense Refill dexAMETHasone (DECADRON) 4 mg tablet Take 4 mg by mouth as directed. methocarbamol (ROBAXIN) 500 mg tablet Take 1 tablet by mouth three times a day. 90 tablet 1 citalopram hydrobromide (CELEXA) 10 mg tablet Take 1.5 tablets by mouth once daily. 45 tablet 1 traZODone (DESYREL) 150 mg tablet Take 1 tablet by mouth daily at bedtime. 30 tablet 1 progesterone micronized (PROMETRIUM) 100 mg capsule Take by mouth. estradiol (ESTRACE) 0.01 % (0.1 mg/gram) vaginal cream INSERT 1 GRAM VAGINALLY THREE TIMES A WEEK BEFORE BED gabapentin (NEURONTIN) 100 mg capsule Take 1 capsule by mouth at bedtime as needed for up to 90 days. 30 capsule 2 rifAXIMin (XIFAXAN) 550 mg tablet Take 550 mg by mouth twice daily. GEMTESA 75 mg tablet Take 1 tablet by mouth every afternoon. gabapentin (NEURONTIN) 300 mg capsule Take 300 mg by mouth three times daily. lactulose 10 gram/15 mL solution Take 10 g by mouth three times daily as needed. ascorbic acid, vitamin C, (VITAMIN C) 500 mg tablet Take 500 mg by mouth once daily. cranberry fruit extract (CRANBERRY EXTRACT) 500 mg tab Take 1 tablet by mouth three times daily. d-mannose 500 mg cap Take 1,000 mg by mouth twice daily. Magnesium 250 mg tab Take 250 mg by mouth once daily. glucosamine/chondr jefferson A sod (GLUCOSAMINE-CHONDROITIN) 750-600 mg tab Take 1 tablet by mouth once daily. Lactobac no.41/Bifidobact no.7 (PROBIOTIC-10 ORAL) Take 1 tablet by mouth once daily. vitamin B complex (B COMPLEX 1 ORAL) Take 1 tablet by mouth once daily. DULoxetine (CYMBALTA) 60 mg capsule 1 capsule twice daily. estradiol 0.01% estriol 0.01% topical cream (CPD) Apply 0.1ml to upper inner arm daily. PROGESTERONE MISC Dissolve one triturate under the tongue at bedtime. Milk Thistle 175 mg tab Take 1 tablet by mouth once daily. cyanocobalamin (VITAMIN B-12) 1,000 mcg tab Take 1 tablet by mouth once daily. ginkgo biloba leaf extract 60 mg tab Take 1 tablet by mouth once daily. famotidine (PEPCID) 40 mg tablet Take 40 mg by mouth daily at bedtime. nadolol (CORGARD) 20 mg tablet Take 20 mg by mouth once daily. For 30 days korbdusebnyr-yoqljhyy-ndbhqcv k-coenzyme Q-10 (DEKAS PLUS) 200 mcg-1,000 mcg-10 mg chewable tablet Take 1 tablet by mouth once daily. folic acid 1 mg tablet Take 1 mg by mouth once daily. pantoprazole DR (PROTONIX) 40 mg tablet Take 40 mg by mouth once daily. thiamine (VITAMIN B1) 100 mg tablet Take 100 mg by mouth once daily. cholecalciferol (VITAMIN D3) 5,000 unit tab Take 5,000 Units by mouth once daily. No current facility-administered medications for this visit. Medications were reviewed and verified. Social History Tobacco Use Smoking status: Never Passive exposure: Never Smokeless tobacco: Never Vaping Use Vaping Use: Never used Substance Use Topics Alcohol use: Not Currently Drug use: Not Currently Alcohol Use: Not Currently Tobacco Use: Never History reviewed. No pertinent family history. Review of Systems Constitutional: Negative for chills, fever and malaise/fatigue. HENT: Positive for congestion. Negative for ear discharge and sinus pain. Eyes: Negative for blurred vision and pain. Respiratory: Negative for cough and shortness of breath. Cardiovascular: Negative for chest pain and palpitations. Gastrointestinal: Negative for abdominal pain, nausea and vomiting. Musculoskeletal: Positive for joint pain (Right foot pain). Skin: Negative for cesar (more content not included)... [facility] 11-02-2023 History of Presen t illness Narrative Radiology Service Progress Note PATIENT NAME: Dominic Jimenez DATE OF SERVICE: November 02, 2023 TIME: 1:48 PM PATIENT IDENTITY VERIFICATION COMPLETED USING TWO (2) IDENTIFIERS: Name and Date of confirmed by patient verbally. FALL SCREENING: Has the patient had 2 falls in the last year or 1 fall with injury or currently using an Ambulatory Assistive Device (Walker, Cane, Wheelchair, Crutches, etc.)? No PATIENT GENDER DATA: Female. status: : No status: N/A PATIENT RELEVANT IMPLANT DATA REVIEWED: Not Applicable RADIOLOGY DEPARTMENT: General X-ray: Exam(s) Completed: Lower Extremity X-Ray(s): Foot, Right PERIPHERAL IV DATA: Not applicable SIGNED BY: RT Carmen(R) November 02, 2023 1:48 PM documented in this encounter [facility] 11-02-2023 History of Presen t illness Narrative Dominic Jimenez is a 53 year old female who presents with Pain (foot) (/Pt stated yesterday she fell and hit her foot /) and Ear Problem (C/o ringing in the ears that's causing her to feel dizzy ) HPI patient is a 53-year-old female who presented to the [facility] this afternoon with complaint of right foot pain the symptoms started yesterday after she fell off the steps and hit her foot, patient right the pain is dull achy and constant due to concern for is here for further evaluation and treatment. Today patient also complained of ringing in the ear that is causing her to feel dizzy the symptom has been going on for several day and due to concern patient here for further evaluation and treatment. PAST MEDICAL HISTORY Diagnosis Date Alcoholic cirrhosis (HCC) Alcoholic hepatitis Anemia Clostridium difficile infection COVID-19 virus infection 08/2021 hospitalized Delirium 10/2021 prolonged hospital stay 09/2021-10/2021 at [facility] Depression Esophageal varices (HCC) Fatigue Hepatic encephalopathy (HCC) Neuropathy Splenomegaly Subdural hematoma (HCC) 09/2021 bilateral ACTIVE PROBLEM LIST Hallucinations Depression Hyperlipidemia Hepatic Cirrhosis (Hcc) Neuropathy Wernicke's Disease Alcoholic Cirrhosis (Hcc) Insomnia Anxiety Current Outpatient Medications Medication Sig Dispense Refill dexAMETHasone (DECADRON) 4 mg tablet Take 4 mg by mouth as directed. methocarbamol (ROBAXIN) 500 mg tablet Take 1 tablet by mouth three times a day. 90 tablet 1 citalopram hydrobromide (CELEXA) 10 mg tablet Take 1.5 tablets by mouth once daily. 45 tablet 1 traZODone (DESYREL) 150 mg tablet Take 1 tablet by mouth daily at bedtime. 30 tablet 1 progesterone micronized (PROMETRIUM) 100 mg capsule Take by mouth. estradiol (ESTRACE) 0.01 % (0.1 mg/gram) vaginal cream INSERT 1 GRAM VAGINALLY THREE TIMES A WEEK BEFORE BED gabapentin (NEURONTIN) 100 mg capsule Take 1 capsule by mouth at bedtime as needed for up to 90 days. 30 capsule 2 rifAXIMin (XIFAXAN) 550 mg tablet Take 550 mg by mouth twice daily. GEMTESA 75 mg tablet Take 1 tablet by mouth every afternoon. gabapentin (NEURONTIN) 300 mg capsule Take 300 mg by mouth three times daily. lactulose 10 gram/15 mL solution Take 10 g by mouth three times daily as needed. ascorbic acid, vitamin C, (VITAMIN C) 500 mg tablet Take 500 mg by mouth once daily. cranberry fruit extract (CRANBERRY EXTRACT) 500 mg tab Take 1 tablet by mouth three times daily. d-mannose 500 mg cap Take 1,000 mg by mouth twice daily. Magnesium 250 mg tab Take 250 mg by mouth once daily. glucosamine/chondr jefferson A sod (GLUCOSAMINE-CHONDROITIN) 750-600 mg tab Take 1 tablet by mouth once daily. Lactobac no.41/Bifidobact no.7 (PROBIOTIC-10 ORAL) Take 1 tablet by mouth once daily. vitamin B complex (B COMPLEX 1 ORAL) Take 1 tablet by mouth once daily. DULoxetine (CYMBALTA) 60 mg capsule 1 capsule twice daily. estradiol 0.01% estriol 0.01% topical cream (CPD) Apply 0.1ml to upper inner arm daily. PROGESTERONE MISC Dissolve one triturate under the tongue at bedtime. Milk Thistle 175 mg tab Take 1 tablet by mouth once daily. cyanocobalamin (VITAMIN B-12) 1,000 mcg tab Take 1 tablet by mouth once daily. ginkgo biloba leaf extract 60 mg tab Take 1 tablet by mouth once daily. famotidine (PEPCID) 40 mg tablet Take 40 mg by mouth daily at bedtime. nadolol (CORGARD) 20 mg tablet Take 20 mg by mouth once daily. For 30 days jsxdajomcfvm-tbkwxxau-kcqzfrj k-coenzyme Q-10 (DEKAS PLUS) 200 mcg-1,000 mcg-10 mg chewable tablet Take 1 tablet by mouth once daily. folic acid 1 mg tablet Take 1 mg by mouth once daily. pantoprazole DR (PROTONIX) 40 mg tablet Take 40 mg by mouth once daily. thiamine (VITAMIN B1) 100 mg tablet Take 100 mg by mouth once daily. cholecalciferol (VITAMIN D3) 5,000 unit tab Take 5,000 Units by mouth once daily. No current facility-administered medications for this visit. Medications were reviewed and verified. Social History Tobacco Use Smoking status: Never Passive exposure: Never Smokeless tobacco: Never Vaping Use Vaping Use: Never used Substance Use Topics Alcohol use: Not Currently Drug use: Not Currently Alcohol Use: Not Currently Tobacco Use: Never History reviewed. No pertinent family history. Review of Systems Constitutional: Negative for chills, fever and malaise/fatigue. HENT: Positive for congestion. Negative for ear discharge and sinus pain. Eyes: Negative for blurred vision and pain. Respiratory: Negative for cough and shortness of breath. Cardiovascular: Negative for chest pain and palpitations. Gastrointestinal: Negative for abdominal pain, nausea and vomiting. Musculoskeletal: Positive for joint pain (Right foot pain). Skin: Negative for rash. Neurological: Negative for headaches. Endo/Heme/Allergies: Negative for polydipsia. Does not bruise/bleed easily. BP 137/90 Pulse 72 Temp 97.2 Resp 18 Wt 183 lb (83.0kg) SpO2 99% Physical Exam Vitals and nursing note reviewed. Constitutional: General: She is not in acute distress. Appearance: Normal appearance. HENT: Right Ear: Tympanic membrane and ear canal normal. Left Ear: Tympanic membrane and ear canal normal. Nose: Congestion present. No rhinorrhea. Mouth/Throat: Mouth: Mucous membranes are moist. Pharynx: Oropharynx is clear. Eyes: Extraocular Movements: Extraocular movements intact. Conjunctiva/sclera: Conjunctivae normal. Pupils: Pupils are equal, round, and reactive to light. Cardiovascular: Rate and Rhythm: Regular rhythm. Heart sounds: Normal heart sounds. Pulmonary: Breath sounds: Normal breath sounds. Musculoskeletal: General: Tenderness (Right foot-tender with palpation of the lateral side, no swollen or ecchymosis appreciated, range of motion of the right foot within normal limits) present. Cervical back: Normal range of motion and neck supple. Lymphadenopathy: Cervical: No cervical adenopathy. Skin: Findings: No rash. ASSESSMENT/PLAN: 1. URI, acute - ICD9: 465.9, ICD10: J06.9 (primary diagnosis) - Discussed viral etiology and rationale for treatment. - Symptomatic treatment with prn analgesia - Supportive care with fluids and rest - The patient may also use OTC decongestants prn. - Follow up with care physician in 4-5 days if symptoms persist or sooner if worsening of symptoms 2. Foot pain, right - ICD9: 729.5, ICD10: M79.671 Reviewed the right foot x-ray result with patient with no acute abnormality however will send out for second reading with radiology Complications of the disease were discussed with the patient. May take ibuprofen if needed, elevate the right foot, may apply ice to the area discussed side effects of the medication with the patient Instructed to follow up with primary care physician in 4 to 5 days for recheck - XR FOOT GENERAL 3V AP/LAT/OBL RIGHT Aurelio Reyes MD documented in this encounter [facility] 11-01-2023 Miscellaneous Notes LVM explaining to patient I contacted insurance and she does not have chiropractic coverage with insurance. Patient also is being sent to Dr. Ramirez for acupuncture services and provider is currently not performing those services until after 2023. Chantale Sheth LMT documented in this encounter [facility] 11-01-2023 Miscellaneous Notes INSURANCE CO. ID # GROUP # CO-PAY DEDUCTIBLE COINSUR. OUT OF POCKET MAX PRIOR AUTH REQU'D LIMITATIONS REFERENCE # SPOKE TO: [facility] NO CHIRO COVERAGE [id number] - - - - - - [id number] YAW C Is this a Medicare or Medicaid product? N Does this follow Medicare guidelines? N Is this a C$ cMoney product? N Does this require clinical submission through Real[employer]? N Chiropractor: Dr. Ramirez Contracted: Y Chiropractic benefits: In network Are the billable benefits a HARD LIMIT? Y If yes, how do we ask for more visits? Fax: Mail: Phone: Website: Ask for the [facility] care department for benefits Be sure to ask: Are these supervised or unsupervised therapeutic modalities covered if billed by a chiropractor? CPT CODE NAME COVERED? 54213 Manual manipulations spine 1-2 02902 [id number] Manual manipulations spine 3-4 Manual manipulations spine 5 14132 Manual manipulations of extremities 11703 Hot/cold packs 85965 Mechanical traction 01188 Electrical stimulation 70647 Therapeutic exercises 39559 Neuromuscular re-education 88407 45043 Dry needling 1-2 Muscles Dry needling 3-4 muscles 41975 Massage therapy 93174 Manual therapy 17428 Acupuncture < 15 minutes [id number] Acupuncture > 15 minutes Acupuncture with stim < 15 minutes Acupuncture with stim > 15 minutes Chantale Sheth LMT documented in this encounter [facility] 10-31-2023 Note HNO ID: [id number] Author: Aure Carlton APRN.TOBACCO FLAVORER Service: ? Author Type: Nurse Practitioner Type: Progress Notes Filed: 11/08/2023 6:14 PM Note Text: Dominic Jimenez is a 53 year old female who presents with Memory Loss (6 week f/u and discuss memory loss. Pt states she is no longer taking tizanidine states it was helpful but concerned about the side effects. Pt c/o pain in feet./Maru Walker LPN/October 31, 2023 11:05 AM//) Dominic presents today for 6 week f/u. States she changed GI offices, now seeing Dr. Scott in [place], will see in Nov. Stopped tizandine. Was told by pain management it could affect her liver. Trazodone was increased to 150mg late Aug. Helped a little. Started on Celexa 10mg late Aug. She does not feel it is helping. Still very emotional and down, irritable. The history is provided by the patient. Hemoglobin A1C Date Value Ref Range Status 05/09/2023 5.4 4.3 - 6.0 % Final Comment: [place] [employer] guidelines indicate that patients with HgbA1c in the range 5.7-6.4% are at increased risk for development of diabetes, and intervention by lifestyle modification may be beneficial. HgbA1c greater or equal to 6.5% is considered diagnostic of diabetes. TSH Date Value Ref Range Status 05/09/2023 2.444 0.358 - 3.740 mIU/L Final Comment: 3rd generation ultra sensitive TSH. 02/01/2022 3.218 0.358 - 3.740 UIU/ML Final Comment: 3rd generation ultra sensitive TSH Albumin, Urine Random Date Value Ref Range Status 10/13/2021 <12.0 mg/L Final PAST MEDICAL HISTORY Diagnosis Date Alcoholic cirrhosis (HCC) Alcoholic hepatitis Anemia Clostridium difficile infection COVID-19 virus infection 08/2021 hospitalized Delirium 10/2021 prolonged hospital stay 09/2021-10/2021 at [facility] Depression Esophageal varices (HCC) Fatigue Hepatic encephalopathy (HCC) Neuropathy Splenomegaly Subdural hematoma (HCC) 09/2021 bilateral ACTIVE PROBLEM LIST Hallucinations Depression Hyperlipidemia Hepatic Cirrhosis (Hcc) Neuropathy Wernicke's Disease Alcoholic Cirrhosis (Hcc) Insomnia Anxiety Current Outpatient Medications Medication Sig Dispense Refill ALPRAZolam (XANAX) 0.25 mg tablet Take 0.25 mg by mouth at bedtime as needed. busPIRone (BUSPAR) 10 mg tablet Take 10 mg by mouth three times a day. dexAMETHasone (DECADRON) 4 mg tablet Take 4 mg by mouth as directed. tiZANidine (ZANAFLEX) 2 mg tablet Take 1 tablet by mouth three times a day as needed. 25 tablet 0 citalopram hydrobromide (CELEXA) 10 mg tablet Take 1 tablet by mouth once daily. 30 tablet 1 traZODone (DESYREL) 150 mg tablet Take 1 tablet by mouth daily at bedtime. 30 tablet 1 progesterone micronized (PROMETRIUM) 100 mg capsule Take by mouth. estradiol (ESTRACE) 0.01 % (0.1 mg/gram) vaginal cream INSERT 1 GRAM VAGINALLY THREE TIMES A WEEK BEFORE BED gabapentin (NEURONTIN) 100 mg capsule Take 1 capsule by mouth at bedtime as needed for up to 90 days. 30 capsule 2 rifAXIMin (XIFAXAN) 550 mg tablet Take 550 mg by mouth twice daily. GEMTESA 75 mg tablet Take 1 tablet by mouth every afternoon. gabapentin (NEURONTIN) 300 mg capsule Take 300 mg by mouth three times daily. lactulose 10 gram/15 mL solution Take 10 g by mouth three times daily as needed. ascorbic acid, vitamin C, (VITAMIN C) 500 mg tablet Take 500 mg by mouth once daily. cranberry fruit extract (CRANBERRY EXTRACT) 500 mg tab Take 1 tablet by mouth three times daily. d-mannose 500 mg cap Take 1,000 mg by mouth twice daily. Magnesium 250 mg tab Take 250 mg by mouth once daily. glucosamine/chondr jefferson A sod (GLUCOSAMINE-CHONDROITIN) 750-600 mg tab Take 1 tablet by mouth once daily. Lactobac no.41/Bifidobact no.7 (PROBIOTIC-10 ORAL) Take 1 tablet by mouth once daily. vitamin B complex (B COMPLEX 1 ORAL) Take 1 tablet by mouth once daily. DULoxetine (CYMBALTA) 60 mg capsule 1 capsule twice daily. estradiol 0.01% estriol 0.01% topical cream (CPD) Apply 0.1ml to upper inner arm daily. PROGESTERONE MISC Dissolve one triturate under the tongue at bedtime. Milk Thistle 175 mg tab Take 1 tablet by mouth once daily. cyanocobalamin (VITAMIN B-12) 1,000 mcg tab Take 1 tablet by mouth once daily. ginkgo biloba leaf extract 60 mg tab Take 1 tablet by mouth once daily. famotidine (PEPCID) 40 mg tablet Take 40 mg by mouth daily at bedtime. nadolol (CORGARD) 20 mg tablet Take 20 mg by mouth once daily. For 30 days xiabisoklpik-mkwjnapm-eztdvdm k-coenzyme Q-10 (DEKAS PLUS) 200 mcg-1,000 mcg-10 mg chewable tablet Take 1 tablet by mouth once daily. folic acid 1 mg tablet Take 1 mg by mouth once daily. pantoprazole DR (PROTONIX) 40 mg tablet Take 40 mg by mouth once daily. thiamine (VITAMIN B1) 100 mg tablet Take 100 mg by mouth once daily. cholecalciferol (VITAMIN D3) 5,000 unit tab Take 5,000 Units by mouth once daily. No current facility-administered medications for this visit. Social (more content not included)... [facility] 10-22-2023 Miscellaneous Notes Patient phones requesting refills as follows: CONG HAYNES NOV 10/31/23 >>> PATIENT LEFT A MESSAGE REQUESTING ENOUGH TIZANIDINE TO GET TO HER APPT ON 10/31/23. <<< Requested Prescriptions Pending Prescriptions Disp Refills tiZANidine (ZANAFLEX) 2 mg tablet 25 tablet 0 Sig: Take 1 tablet by mouth three times a day as needed. Please review and advise. Priyanka Groves LPN October 22, 2023 6:06 PM documented in this encounter [facility] 10-01-2023 Miscellaneous Notes LVM for patient to schedule New patient appt with antoni Bryant'd by Марина. Left [phone] # and ext [phone]. Taylor Tristan documented in this encounter [facility] 09-26-2023 Miscellaneous Notes Called and left VM for patient to schedule follow up appointments. Bertha Cole documented in this encounter [facility] 09-25-2023 Note HNO ID: [id number] Author: Марина Shultz APRN.TOBACCO FLAVORER Service: ? Author Type: Nurse Practitioner Type: Progress Notes Filed: 09/25/2023 3:03 PM Note Text: VIRTUAL VISIT PROGRESS NOTE This is a virtual visit using [employer] Video Visit. It required patient-provider interaction for the medical decision making as documented below. I have communicated my name and active licensure. The patient's identity and physical location were verified at the time of this visit. Either the patient or their legal entry level marketing representative has been informed of the risks and benefits of -- and alternatives to -- treatment through a remote evaluation and consents to proceed with the evaluation remotely. Dominic Jimenez is a 53 year old female seen for right foot pain, pain score 5/10 She was last seen in February of this year by Dr. Painter and at that time he did not feel he had anything further to offer that was currently being prescribed for her primary care. She presents today with increased bilateral hand numbness and this is causing difficulty holding items. She has ongoing bilateral foot numbness as well. She is wondering about this. She cannot drive due to the numbness in her feet. She went to the ER and was given oxycontin which worked very well for her. Ht 177.8 cm (5' 10 ) Wt 84.4 kg (186 lb) BMI 26.69 kg/m? To recap Dr. Painter's note on 03/14/2023 53 year old female presents with complaint(s) of whole body weakness, diminished sensation in lower limbs, balance problems all secondary to peripheral neuropathy due to alcohol abuse. She is sober for over one year. She has been unable to return to work due to the functional limitations as a result of her medical conditioning, but she is reportedly not eligible. She is on adequate pain management regimen through her PCP. We discussed that there is little else that I can offer her beyond what is already being prescribed HISTORY REVIEWED (electronic chart updated): PAST MEDICAL HISTORY Diagnosis Date Alcoholic cirrhosis (HCC) Alcoholic hepatitis Anemia Clostridium difficile infection COVID-19 virus infection 08/2021 hospitalized Delirium 10/2021 prolonged hospital stay 09/2021-10/2021 at [facility] Depression Esophageal varices (HCC) Fatigue Hepatic encephalopathy (HCC) Neuropathy Splenomegaly Subdural hematoma (HCC) 09/2021 bilateral PAST SURGICAL HISTORY Procedure Laterality Date EGD 04/05/2022 TONSILLECTOMY AND ADENOIDECTOMY HX 1976 History reviewed. No pertinent family history. Social History Tobacco Use Smoking status: Never Passive exposure: Never Smokeless tobacco: Never Vaping Use Vaping Use: Never used Substance Use Topics Alcohol use: Not Currently Drug use: Not Currently Current Outpatient Medications Medication Sig tiZANidine (ZANAFLEX) 2 mg tablet Take 1 tablet by mouth three times a day as needed. citalopram hydrobromide (CELEXA) 10 mg tablet Take 1 tablet by mouth once daily. traZODone (DESYREL) 150 mg tablet Take 1 tablet by mouth daily at bedtime. progesterone micronized (PROMETRIUM) 100 mg capsule Take by mouth. estradiol (ESTRACE) 0.01 % (0.1 mg/gram) vaginal cream INSERT 1 GRAM VAGINALLY THREE TIMES A WEEK BEFORE BED gabapentin (NEURONTIN) 100 mg capsule Take 1 capsule by mouth at bedtime as needed for up to 90 days. rifAXIMin (XIFAXAN) 550 mg tablet Take 550 mg by mouth twice daily. GEMTESA 75 mg tablet Take 1 tablet by mouth every afternoon. gabapentin (NEURONTIN) 300 mg capsule Take 300 mg by mouth three times daily. lactulose 10 gram/15 mL solution Take 10 g by mouth three times daily as needed. ascorbic acid, vitamin C, (VITAMIN C) 500 mg tablet Take 500 mg by mouth once daily. cranberry fruit extract (CRANBERRY EXTRACT) 500 mg tab Take 1 tablet by mouth three times daily. d-mannose 500 mg cap Take 1,000 mg by mouth twice daily. Magnesium 250 mg tab Take 250 mg by mouth once daily. glucosamine/chondr jefferson A sod (GLUCOSAMINE-CHONDROITIN) 750-600 mg tab Take 1 tablet by mouth once daily. Lactobac no.41/Bifidobact no.7 (PROBIOTIC-10 ORAL) Take 1 tablet by mouth once daily. vitamin B complex (B COMPLEX 1 ORAL) Take 1 tablet by mouth once daily. DULoxetine (CYMBALTA) 60 mg capsule 1 capsule twice daily. estradiol 0.01% estriol 0.01% topical cream (CPD) Apply 0.1ml to upper inner arm daily. PROGESTERONE MISC Dissolve one triturate under the tongue at bedtime. Milk Thistle 175 mg tab Take 1 tablet by mouth once daily. cyanocobalamin (VITAMIN B-12) 1,000 mcg tab Take 1 tablet by mouth once daily. ginkgo biloba leaf extract 60 mg tab Take 1 tablet by mouth once daily. famotidine (PEPCID) 40 mg tablet Take 40 mg by mouth daily at bedtime. nadolol (CORGARD) 20 mg tablet Take 20 mg by mouth once daily. For 30 days konlbllzbbmv-yualzakc-wjwaxom k-coenzyme Q-10 (DEKAS PLUS) 200 mcg-1,000 mcg-10 mg chewable tablet Take 1 tablet by mouth once daily. folic acid 1 mg t (more content not included)... [facility] 09-25-2023 Miscellaneous Notes Addended by: МАРИНА SHULTZ on: 09/25/2023 03:03 PM Modules accepted: Orders documented in this encounter [facility] 09-25-2023 History of Presen t illness Narrative VIRTUAL VISIT PROGRESS NOTE This is a virtual visit using [employer] Video Visit. It required patient-provider interaction for the medical decision making as documented below. I have communicated my name and active licensure. The patient's identity and physical location were verified at the time of this visit. Either the patient or their legal entry level marketing representative has been informed of the risks and benefits of -- and alternatives to -- treatment through a remote evaluation and consents to proceed with the evaluation remotely. Dominic Jimenez is a 53 year old female seen for right foot pain, pain score 5/10 She was last seen in February of this year by Dr. Painter and at that time he did not feel he had anything further to offer that was currently being prescribed for her primary care. She presents today with increased bilateral hand numbness and this is causing difficulty holding items. She has ongoing bilateral foot numbness as well. She is wondering about this. She cannot drive due to the numbness in her feet. She went to the ER and was given oxycontin which worked very well for her. Ht 177.8 cm (5' 10 ) Wt 84.4 kg (186 lb) BMI 26.69 kg/m To recap Dr. Painter's note on 03/14/2023 53 year old female presents with complaint(s) of whole body weakness, diminished sensation in lower limbs, balance problems all secondary to peripheral neuropathy due to alcohol abuse. She is sober for over one year. She has been unable to return to work due to the functional limitations as a result of her medical conditioning, but she is reportedly not eligible. She is on adequate pain management regimen through her PCP. We discussed that there is little else that I can offer her beyond what is already being prescribed HISTORY REVIEWED (electronic chart updated): PAST MEDICAL HISTORY Diagnosis Date Alcoholic cirrhosis (HCC) Alcoholic hepatitis Anemia Clostridium difficile infection COVID-19 virus infection 08/2021 hospitalized Delirium 10/2021 prolonged hospital stay 09/2021-10/2021 at [facility] Depression Esophageal varices (HCC) Fatigue Hepatic encephalopathy (HCC) Neuropathy Splenomegaly Subdural hematoma (HCC) 09/2021 bilateral PAST SURGICAL HISTORY Procedure Laterality Date EGD 04/05/2022 TONSILLECTOMY AND ADENOIDECTOMY HX 1975 History reviewed. No pertinent family history. Social History Tobacco Use Smoking status: Never Passive exposure: Never Smokeless tobacco: Never Vaping Use Vaping Use: Never used Substance Use Topics Alcohol use: Not Currently Drug use: Not Currently Current Outpatient Medications Medication Sig tiZANidine (ZANAFLEX) 2 mg tablet Take 1 tablet by mouth three times a day as needed. citalopram hydrobromide (CELEXA) 10 mg tablet Take 1 tablet by mouth once daily. traZODone (DESYREL) 150 mg tablet Take 1 tablet by mouth daily at bedtime. progesterone micronized (PROMETRIUM) 100 mg capsule Take by mouth. estradiol (ESTRACE) 0.01 % (0.1 mg/gram) vaginal cream INSERT 1 GRAM VAGINALLY THREE TIMES A WEEK BEFORE BED gabapentin (NEURONTIN) 100 mg capsule Take 1 capsule by mouth at bedtime as needed for up to 90 days. rifAXIMin (XIFAXAN) 550 mg tablet Take 550 mg by mouth twice daily. GEMTESA 75 mg tablet Take 1 tablet by mouth every afternoon. gabapentin (NEURONTIN) 300 mg capsule Take 300 mg by mouth three times daily. lactulose 10 gram/15 mL solution Take 10 g by mouth three times daily as needed. ascorbic acid, vitamin C, (VITAMIN C) 500 mg tablet Take 500 mg by mouth once daily. cranberry fruit extract (CRANBERRY EXTRACT) 500 mg tab Take 1 tablet by mouth three times daily. d-mannose 500 mg cap Take 1,000 mg by mouth twice daily. Magnesium 250 mg tab Take 250 mg by mouth once daily. glucosamine/chondr jefferson A sod (GLUCOSAMINE-CHONDROITIN) 750-600 mg tab Take 1 tablet by mouth once daily. Lactobac no.41/Bifidobact no.7 (PROBIOTIC-10 ORAL) Take 1 tablet by mouth once daily. vitamin B complex (B COMPLEX 1 ORAL) Take 1 tablet by mouth once daily. DULoxetine (CYMBALTA) 60 mg capsule 1 capsule twice daily. estradiol 0.01% estriol 0.01% topical cream (CPD) Apply 0.1ml to upper inner arm daily. PROGESTERONE MISC Dissolve one triturate under the tongue at bedtime. Milk Thistle 175 mg tab Take 1 tablet by mouth once daily. cyanocobalamin (VITAMIN B-12) 1,000 mcg tab Take 1 tablet by mouth once daily. ginkgo biloba leaf extract 60 mg tab Take 1 tablet by mouth once daily. famotidine (PEPCID) 40 mg tablet Take 40 mg by mouth daily at bedtime. nadolol (CORGARD) 20 mg tablet Take 20 mg by mouth once daily. For 30 days vnpukyfcgdel-imhjdlli-zoinmds k-coenzyme Q-10 (DEKAS PLUS) 200 mcg-1,000 mcg-10 mg chewable tablet Take 1 tablet by mouth once daily. folic acid 1 mg tablet Take 1 mg by mouth once daily. pantoprazole DR (PROTONIX) 40 mg tablet Take 40 mg by mouth once daily. thiamine (VITAMIN B1) 100 mg tablet Take 100 mg by mouth once daily. cholecalciferol (VITAMIN D3) 5,000 unit tab Take 5,000 Units by mouth once daily. No current facility-administered medications for this visit. ALLERGIES No Known Allergies REVIEW OF SYSTEMS: GENERAL: no fever HEENT: no nasal congestion or rhinorrhea NECK: denies swelling or pain in neck RESPIRATORY: no cough, no wheezing or shortness of breath CARDIOVASCULAR: no chest pain, no palpitations GI: no abdominal pain : urination is normal MUSCULOSKELETAL: denies any painful or swollen joints SKIN: no rash PSYCH: denies depressed or anxious mood HEMATOLOGY/LYMPHOLOGY: negative for prolonged bleeding ENDOCRINE: denies cold/heat intolerance NEURO: no weakness of the extremities and admits to paresthesia in the bilateral arm and leg PHYSICAL EXAMINATION: VIDEO EXAM: (if completed, performed via video enabled technology) GENERAL: alert and appropriate, in no distress, well-hydrated, well nourished, and happy, smiling, interactive SKIN: no rash noted HEAD: normocephalic, no abnormality or lesion noted EYES: no injection and visual acuity is grossly normal EARS: hearing grossly normal NOSE: external nose normal without rhinorrhea NECK: full ROM, no cervical LNs noted RESPIRATORY: breathing non-labored CHEST: equal chest rise with normal respiratory effort BACK: back normal in appearance, spine with FROM EXTREMITIES: right foot per pt NEUROLOGIC: no obvious deficit ASSESSMENT: (G62.1) Alcoholic peripheral neuropathy (HCC) (primary encounter diagnosis) PLAN: I am going to send her for a bilateral arm EMG/NCV to assess the nt here- she had this done at [facility]. We will call to get the results. I am going to have her see Dr Ramirez for acupuncture for the neuropathy Given her alcohol abuse history we will not be furnishing controlled substances I am going to refer her for the chronic pain rehab program as well Patient Instructions Ice and heat as tolerated Activity as tolerated I spent a total of 15 minutes on the date of the service which included preparing to see the patient, txse-[id number] patient care, completing clinical documentation, and ordering medications, tests, or procedures Марина Shultz APRN.JERRY I have communicated my name and active licensure. The patient's identity and physical location were verified at the time of this visit. Either the patient or their legal entry level marketing representative has been informed of the risks and benefits of -- and alternatives to -- treatment through a remote evaluation and consents to proceed with the evaluation remotely. documented in this encounter [facility] 09-25-2023 Instructions Марина Shultz APRN.CNP - 09/25/2023 2:44 PM EST Ice and heat as tolerated Activity as tolerated documented in this encounter [facility] 09-08-2023 Note HNO ID: [id number] Author: Regina Rondon RT(R) Service: Radiology Author Type: Technologist Type: Progress Notes Filed: 09/08/2023 4:36 PM Note Text: Radiology Service Progress Note PATIENT NAME: Dominic Jimenez DATE OF SERVICE: September 08, 2023 TIME: 4:36 PM PATIENT IDENTITY VERIFICATION COMPLETED USING TWO (2) IDENTIFIERS: Name and Date of confirmed by patient verbally. FALL SCREENING: Has the patient had 2 falls in the last year or 1 fall with injury or currently using an Ambulatory Assistive Device (Walker, Cane, Wheelchair, Crutches, etc.)? No PATIENT GENDER DATA: Female. status: : No status: NO. PATIENT RELEVANT IMPLANT DATA REVIEWED: Not Applicable RADIOLOGY DEPARTMENT: General X-ray: Exam(s) Completed: Lower Extremity X-Ray(s): Foot, Right PERIPHERAL IV DATA: Not applicable SIGNED BY: RT Benja(R) September 08, 2023 4:[address] [facility] 09-08-2023 Note HNO ID: [id number] Author: Cr Grove MD Service: ? Author Type: Physician Type: Progress Notes Filed: 09/08/2023 4:41 PM Note Text: Dominic Jimenez is a 53 year old FEMALE who presents with Pain (foot) (Right foot injury hit while in bath tub after sliding in tub unsure when) 53 years old female with pain in the right foot She fell down and back About 1 and half weeks ago Fell again It hurts to walk on this foot No other injury Pain (foot) PAST MEDICAL HISTORY Diagnosis Date Alcoholic cirrhosis (HCC) Alcoholic hepatitis Anemia Clostridium difficile infection COVID-19 virus infection 08/2021 hospitalized Delirium 10/2021 prolonged hospital stay 09/2021-10/2021 at [facility] Depression Esophageal varices (HCC) Fatigue Hepatic encephalopathy (HCC) Neuropathy Splenomegaly Subdural hematoma (HCC) 09/2021 bilateral ACTIVE PROBLEM LIST Hallucinations Depression Hyperlipidemia Hepatic Cirrhosis (Hcc) Peripheral Nerve Disease Wernicke's Disease Alcoholic Cirrhosis (Hcc) Insomnia Anxiety Current Outpatient Medications Medication Sig Dispense Refill progesterone micronized (PROMETRIUM) 100 mg capsule Take by mouth. estradiol (ESTRACE) 0.01 % (0.1 mg/gram) vaginal cream INSERT 1 GRAM VAGINALLY THREE TIMES A WEEK BEFORE BED traZODone (DESYREL) 100 mg tablet Take 1 tablet by mouth daily at bedtime. 30 tablet 2 gabapentin (NEURONTIN) 100 mg capsule Take 1 capsule by mouth at bedtime as needed for up to 90 days. 30 capsule 2 tiZANidine (ZANAFLEX) 2 mg tablet Take 1 tablet by mouth three times a day as needed. 90 tablet 0 rifAXIMin (XIFAXAN) 550 mg tablet Take 550 mg by mouth twice daily. GEMTESA 75 mg tablet Take 1 tablet by mouth every afternoon. gabapentin (NEURONTIN) 300 mg capsule Take 300 mg by mouth three times daily. lactulose 10 gram/15 mL solution Take 10 g by mouth three times daily as needed. ascorbic acid, vitamin C, (VITAMIN C) 500 mg tablet Take 500 mg by mouth once daily. cranberry fruit extract (CRANBERRY EXTRACT) 500 mg tab Take 1 tablet by mouth three times daily. d-mannose 500 mg cap Take 1,000 mg by mouth twice daily. Magnesium 250 mg tab Take 250 mg by mouth once daily. glucosamine/chondr jefferson A sod (GLUCOSAMINE-CHONDROITIN) 750-600 mg tab Take 1 tablet by mouth once daily. Lactobac no.41/Bifidobact no.7 (PROBIOTIC-10 ORAL) Take 1 tablet by mouth once daily. vitamin B complex (B COMPLEX 1 ORAL) Take 1 tablet by mouth once daily. DULoxetine (CYMBALTA) 60 mg capsule 1 capsule twice daily. estradiol 0.01% estriol 0.01% topical cream (CPD) Apply 0.1ml to upper inner arm daily. busPIRone (BUSPAR) 10 mg tablet Take 10 mg by mouth three times daily. Milk Thistle 175 mg tab Take 1 tablet by mouth once daily. cyanocobalamin (VITAMIN B-12) 1,000 mcg tab Take 1 tablet by mouth once daily. ginkgo biloba leaf extract 60 mg tab Take 1 tablet by mouth once daily. famotidine (PEPCID) 40 mg tablet Take 40 mg by mouth daily at bedtime. nadolol (CORGARD) 20 mg tablet Take 20 mg by mouth once daily. For 30 days sehgahzrernn-szlriueo-txjpydp k-coenzyme Q-10 (DEKAS PLUS) 200 mcg-1,000 mcg-10 mg chewable tablet Take 1 tablet by mouth once daily. folic acid 1 mg tablet Take 1 mg by mouth once daily. pantoprazole DR (PROTONIX) 40 mg tablet Take 40 mg by mouth once daily. thiamine (VITAMIN B1) 100 mg tablet Take 100 mg by mouth once daily. cholecalciferol (VITAMIN D3) 5,000 unit tab Take 5,000 Units by mouth once daily. PROGESTERONE MISC Dissolve one triturate under the tongue at bedtime. No current facility-administered medications for this visit. Social History Tobacco Use Smoking status: Never Passive exposure: Never Smokeless tobacco: Never Vaping Use Vaping Use: Never used Substance Use Topics Alcohol use: Not Currently Drug use: Not Currently Alcohol Use: Not Currently Tobacco Use: Never History reviewed. No pertinent family history. Review of Systems Musculoskeletal: Positive for joint pain (Right foot pain). All other systems reviewed and are negative. BP 118/74 Pulse 69 Temp 97.4 Resp 18 SpO2 97% Physical Exam Vitals reviewed. Constitutional: General: She is not in acute distress. Appearance: Normal appearance. She is not ill-appearing or toxic-appearing. Musculoskeletal: General: Tenderness (Mild tenderness on the dorsum of the foot) present. No swelling. Normal range of motion. Neurological: General: No focal deficit present. Mental Status: She is alert. Explained to patient that x-ray did not show any acute injury. She has sprain of foot. Radiologist will review and give final x-ray report She should follow-up with her doctor if there is no improvement. Patient understand and agreed ASSESSMENT/PLAN: 1. Pain of right foot - ICD9: 729.5, ICD10: M79.671 (primary diagnosis) - XR FOOT GENERAL 3V AP/LAT/OBL RIGHT 2. Sprain of right foot, initial encounter - ICD9: 845. (more content not included)... [facility] 09-08-2023 Instructions Cr Grove MD - 09/08/2023 4:25 PM EDT Rest elevation ice OTC pain med Limit activities, no running jumping no heavy duty F/u PCP for further evaluation and care Explained details Final x-ray report is pending documented in this encounter [facility] 09-08-2023 History of Presen t illness Narrative Dominic Jimenez is a 53 year old FEMALE who presents with Pain (foot) (Right foot injury hit while in bath tub after sliding in tub unsure when) 53 years old female with pain in the right foot She fell down and back About 1 and half weeks ago Fell again It hurts to walk on this foot No other injury Pain (foot) PAST MEDICAL HISTORY Diagnosis Date Alcoholic cirrhosis (HCC) Alcoholic hepatitis Anemia Clostridium difficile infection COVID-19 virus infection 08/2021 hospitalized Delirium 10/2021 prolonged hospital stay 09/2021-10/2021 at [facility] Depression Esophageal varices (HCC) Fatigue Hepatic encephalopathy (HCC) Neuropathy Splenomegaly Subdural hematoma (HCC) 09/2021 bilateral ACTIVE PROBLEM LIST Hallucinations Depression Hyperlipidemia Hepatic Cirrhosis (Hcc) Peripheral Nerve Disease Wernicke's Disease Alcoholic Cirrhosis (Hcc) Insomnia Anxiety Current Outpatient Medications Medication Sig Dispense Refill progesterone micronized (PROMETRIUM) 100 mg capsule Take by mouth. estradiol (ESTRACE) 0.01 % (0.1 mg/gram) vaginal cream INSERT 1 GRAM VAGINALLY THREE TIMES A WEEK BEFORE BED traZODone (DESYREL) 100 mg tablet Take 1 tablet by mouth daily at bedtime. 30 tablet 2 gabapentin (NEURONTIN) 100 mg capsule Take 1 capsule by mouth at bedtime as needed for up to 90 days. 30 capsule 2 tiZANidine (ZANAFLEX) 2 mg tablet Take 1 tablet by mouth three times a day as needed. 90 tablet 0 rifAXIMin (XIFAXAN) 550 mg tablet Take 550 mg by mouth twice daily. GEMTESA 75 mg tablet Take 1 tablet by mouth every afternoon. gabapentin (NEURONTIN) 300 mg capsule Take 300 mg by mouth three times daily. lactulose 10 gram/15 mL solution Take 10 g by mouth three times daily as needed. ascorbic acid, vitamin C, (VITAMIN C) 500 mg tablet Take 500 mg by mouth once daily. cranberry fruit extract (CRANBERRY EXTRACT) 500 mg tab Take 1 tablet by mouth three times daily. d-mannose 500 mg cap Take 1,000 mg by mouth twice daily. Magnesium 250 mg tab Take 250 mg by mouth once daily. glucosamine/chondr jefferson A sod (GLUCOSAMINE-CHONDROITIN) 750-600 mg tab Take 1 tablet by mouth once daily. Lactobac no.41/Bifidobact no.7 (PROBIOTIC-10 ORAL) Take 1 tablet by mouth once daily. vitamin B complex (B COMPLEX 1 ORAL) Take 1 tablet by mouth once daily. DULoxetine (CYMBALTA) 60 mg capsule 1 capsule twice daily. estradiol 0.01% estriol 0.01% topical cream (CPD) Apply 0.1ml to upper inner arm daily. busPIRone (BUSPAR) 10 mg tablet Take 10 mg by mouth three times daily. Milk Thistle 175 mg tab Take 1 tablet by mouth once daily. cyanocobalamin (VITAMIN B-12) 1,000 mcg tab Take 1 tablet by mouth once daily. ginkgo biloba leaf extract 60 mg tab Take 1 tablet by mouth once daily. famotidine (PEPCID) 40 mg tablet Take 40 mg by mouth daily at bedtime. nadolol (CORGARD) 20 mg tablet Take 20 mg by mouth once daily. For 30 days oflrwnfpfcov-oevfomkm-vozqcde k-coenzyme Q-10 (DEKAS PLUS) 200 mcg-1,000 mcg-10 mg chewable tablet Take 1 tablet by mouth once daily. folic acid 1 mg tablet Take 1 mg by mouth once daily. pantoprazole DR (PROTONIX) 40 mg tablet Take 40 mg by mouth once daily. thiamine (VITAMIN B1) 100 mg tablet Take 100 mg by mouth once daily. cholecalciferol (VITAMIN D3) 5,000 unit tab Take 5,000 Units by mouth once daily. PROGESTERONE MISC Dissolve one triturate under the tongue at bedtime. No current facility-administered medications for this visit. Social History Tobacco Use Smoking status: Never Passive exposure: Never Smokeless tobacco: Never Vaping Use Vaping Use: Never used Substance Use Topics Alcohol use: Not Currently Drug use: Not Currently Alcohol Use: Not Currently Tobacco Use: Never History reviewed. No pertinent family history. Review of Systems Musculoskeletal: Positive for joint pain (Right foot pain). All other systems reviewed and are negative. BP 118/74 Pulse 69 Temp 97.4 Resp 18 SpO2 97% Physical Exam Vitals reviewed. Constitutional: General: She is not in acute distress. Appearance: Normal appearance. She is not ill-appearing or toxic-appearing. Musculoskeletal: General: Tenderness (Mild tenderness on the dorsum of the foot) present. No swelling. Normal range of motion. Neurological: General: No focal deficit present. Mental Status: She is alert. Explained to patient that x-ray did not show any acute injury. She has sprain of foot. Radiologist will review and give final x-ray report She should follow-up with her doctor if there is no improvement. Patient understand and agreed ASSESSMENT/PLAN: 1. Pain of right foot - ICD9: 729.5, ICD10: M79.671 (primary diagnosis) - XR FOOT GENERAL 3V AP/LAT/OBL RIGHT 2. Sprain of right foot, initial encounter - ICD9: 845.10, ICD10: S93.601A Rest elevation ice OTC pain med Limit activities, no running jumping no heavy duty F/u PCP for further evaluation and care Explained details Final x-ray report is pending [facility] MD documented in this encounter [facility] 09-06-2023 Note HNO ID: [id number] Author: Aure Carlton APRN.JERRY Service: ? Author Type: Nurse Practitioner Type: Progress Notes Filed: 09/06/2023 6:53 PM Note Text: Dominic Jimenez is a 53 year old female who presents with Follow Up (4 week follow up ) Dominic presents today for 4 week f/u. At last OV, cut back tizanidine from 4-8mg to 2mg and increased trazodone to 50mg. Has not had any further hallucinations since cutting back on tizanidine. Insomnia- No improvement with increase in trazodone. Often does not go to bed until 4-7am, though admits that she is not keeping a consistent bedtime and will be on screens during the night, either on her phone or watching TV. Anxiety- does not feel buspar is working well. Wants to know about trying Celexa or Lexapro as her mom and sister both take Celexa and her nephew takes Lexapro and all of them tell her it works well for them. The history is provided by the patient. Hemoglobin A1C Date Value Ref Range Status 05/09/2023 5.4 4.3 - 6.0 % Final Comment: [place] [employer] guidelines indicate that patients with HgbA1c in the range 5.7-6.4% are at increased risk for development of diabetes, and intervention by lifestyle modification may be beneficial. HgbA1c greater or equal to 6.5% is considered diagnostic of diabetes. TSH Date Value Ref Range Status 05/09/2023 2.444 0.358 - 3.740 mIU/L Final Comment: 3rd generation ultra sensitive TSH. 02/01/2022 3.218 0.358 - 3.740 UIU/ML Final Comment: 3rd generation ultra sensitive TSH Albumin, Urine Random Date Value Ref Range Status 10/13/2021 <12.0 mg/L Final PAST MEDICAL HISTORY Diagnosis Date Alcoholic cirrhosis (HCC) Alcoholic hepatitis Anemia Clostridium difficile infection COVID-19 virus infection 08/2021 hospitalized Delirium 10/2021 prolonged hospital stay 09/2021-10/2021 at [facility] Depression Esophageal varices (HCC) Fatigue Hepatic encephalopathy (HCC) Neuropathy Splenomegaly Subdural hematoma (HCC) 09/2021 bilateral ACTIVE PROBLEM LIST Hallucinations Depression Hyperlipidemia Hepatic Cirrhosis (Hcc) Peripheral Nerve Disease Wernicke's Disease Alcoholic Cirrhosis (Hcc) Insomnia Anxiety Current Outpatient Medications Medication Sig Dispense Refill tiZANidine (ZANAFLEX) 2 mg tablet Take 1 tablet by mouth three times a day as needed. 90 tablet 0 rifAXIMin (XIFAXAN) 550 mg tablet Take 550 mg by mouth twice daily. GEMTESA 75 mg tablet Take 1 tablet by mouth every afternoon. gabapentin (NEURONTIN) 300 mg capsule Take 300 mg by mouth three times daily. lactulose 10 gram/15 mL solution Take 10 g by mouth three times daily as needed. ascorbic acid, vitamin C, (VITAMIN C) 500 mg tablet Take 500 mg by mouth once daily. cranberry fruit extract (CRANBERRY EXTRACT) 500 mg tab Take 1 tablet by mouth three times daily. d-mannose 500 mg cap Take 1,000 mg by mouth twice daily. Magnesium 250 mg tab Take 250 mg by mouth once daily. glucosamine/chondr jefferson A sod (GLUCOSAMINE-CHONDROITIN) 750-600 mg tab Take 1 tablet by mouth once daily. Lactobac no.41/Bifidobact no.7 (PROBIOTIC-10 ORAL) Take 1 tablet by mouth once daily. vitamin B complex (B COMPLEX 1 ORAL) Take 1 tablet by mouth once daily. DULoxetine (CYMBALTA) 60 mg capsule 1 capsule twice daily. estradiol 0.01% estriol 0.01% topical cream (CPD) Apply 0.1ml to upper inner arm daily. busPIRone (BUSPAR) 10 mg tablet Take 10 mg by mouth three times daily. PROGESTERONE MISC Dissolve one triturate under the tongue at bedtime. Milk Thistle 175 mg tab Take 1 tablet by mouth once daily. cyanocobalamin (VITAMIN B-12) 1,000 mcg tab Take 1 tablet by mouth once daily. ginkgo biloba leaf extract 60 mg tab Take 1 tablet by mouth once daily. famotidine (PEPCID) 40 mg tablet Take 40 mg by mouth daily at bedtime. vnmbzqgxcejh-xlxydgge-ytyxpib k-coenzyme Q-10 (DEKAS PLUS) 200 mcg-1,000 mcg-10 mg chewable tablet Take 1 tablet by mouth once daily. folic acid 1 mg tablet Take 1 mg by mouth once daily. pantoprazole DR (PROTONIX) 40 mg tablet Take 40 mg by mouth once daily. thiamine (VITAMIN B1) 100 mg tablet Take 100 mg by mouth once daily. cholecalciferol (VITAMIN D3) 5,000 unit tab Take 5,000 Units by mouth once daily. dextromethorphan-guaiFENesin (MUCUS DM) 30-600 mg per tablet Take 1 tablet by mouth two times a day. (Patient not taking: Reported on 09/06/2023) 14 tablet 0 traZODone (DESYREL) 50 mg tablet Take 1 tablet by mouth daily at bedtime. (Patient not taking: Reported on 09/06/2023) 30 tablet 1 nadolol (CORGARD) 20 mg tablet Take 20 mg by mouth once daily. For 30 days No current facility-administered medications for this visit. Social History Tobacco Use Smoking status: Never Passive exposure: Never Smokeless tobacco: Never Vaping Use Vaping Use: Never used Substance Use Topics Alcohol use: Not Currently Drug use: Not Currently No family history on file. Review of (more content not included)... [facility] 09-06-2023 Instructions Aure Carlton APRN.CNP - 09/06/2023 2:27 PM EDT Discuss starting Lexapro 5mg or Celexa 10mg with Dr. Sarabia. Let me know. We will d/c buspirone at that time. Increase trazodone to 100mg for sleep. documented in this encounter [facility] 09-06-2023 History of Presen t illness Narrative Dominic Jimenez is a 53 year old female who presents with Follow Up (4 week follow up ) Dominic presents today for 4 week f/u. At last OV, cut back tizanidine from 4-8mg to 2mg and increased trazodone to 50mg. Has not had any further hallucinations since cutting back on tizanidine. Insomnia- No improvement with increase in trazodone. Often does not go to bed until 4-7am, though admits that she is not keeping a consistent bedtime and will be on screens during the night, either on her phone or watching TV. Anxiety- does not feel buspar is working well. Wants to know about trying Celexa or Lexapro as her mom and sister both take Celexa and her nephew takes Lexapro and all of them tell her it works well for them. The history is provided by the patient. Hemoglobin A1C Date Value Ref Range Status 05/09/2023 5.4 4.3 - 6.0 % Final Comment: [place] [employer] guidelines indicate that patients with HgbA1c in the range 5.7-6.4% are at increased risk for development of diabetes, and intervention by lifestyle modification may be beneficial. HgbA1c greater or equal to 6.5% is considered diagnostic of diabetes. TSH Date Value Ref Range Status 05/09/2023 2.444 0.358 - 3.740 mIU/L Final Comment: 3rd generation ultra sensitive TSH. 02/01/2022 3.218 0.358 - 3.740 UIU/ML Final Comment: 3rd generation ultra sensitive TSH Albumin, Urine Random Date Value Ref Range Status 10/13/2021 <12.0 mg/L Final PAST MEDICAL HISTORY Diagnosis Date Alcoholic cirrhosis (HCC) Alcoholic hepatitis Anemia Clostridium difficile infection COVID-19 virus infection 08/2021 hospitalized Delirium 10/2021 prolonged hospital stay 09/2021-10/2021 at [facility] Depression Esophageal varices (HCC) Fatigue Hepatic encephalopathy (HCC) Neuropathy Splenomegaly Subdural hematoma (HCC) 09/2021 bilateral ACTIVE PROBLEM LIST Hallucinations Depression Hyperlipidemia Hepatic Cirrhosis (Hcc) Peripheral Nerve Disease Wernicke's Disease Alcoholic Cirrhosis (Hcc) Insomnia Anxiety Current Outpatient Medications Medication Sig Dispense Refill tiZANidine (ZANAFLEX) 2 mg tablet Take 1 tablet by mouth three times a day as needed. 90 tablet 0 rifAXIMin (XIFAXAN) 550 mg tablet Take 550 mg by mouth twice daily. GEMTESA 75 mg tablet Take 1 tablet by mouth every afternoon. gabapentin (NEURONTIN) 300 mg capsule Take 300 mg by mouth three times daily. lactulose 10 gram/15 mL solution Take 10 g by mouth three times daily as needed. ascorbic acid, vitamin C, (VITAMIN C) 500 mg tablet Take 500 mg by mouth once daily. cranberry fruit extract (CRANBERRY EXTRACT) 500 mg tab Take 1 tablet by mouth three times daily. d-mannose 500 mg cap Take 1,000 mg by mouth twice daily. Magnesium 250 mg tab Take 250 mg by mouth once daily. glucosamine/chondr jefferson A sod (GLUCOSAMINE-CHONDROITIN) 750-600 mg tab Take 1 tablet by mouth once daily. Lactobac no.41/Bifidobact no.7 (PROBIOTIC-10 ORAL) Take 1 tablet by mouth once daily. vitamin B complex (B COMPLEX 1 ORAL) Take 1 tablet by mouth once daily. DULoxetine (CYMBALTA) 60 mg capsule 1 capsule twice daily. estradiol 0.01% estriol 0.01% topical cream (CPD) Apply 0.1ml to upper inner arm daily. busPIRone (BUSPAR) 10 mg tablet Take 10 mg by mouth three times daily. PROGESTERONE MISC Dissolve one triturate under the tongue at bedtime. Milk Thistle 175 mg tab Take 1 tablet by mouth once daily. cyanocobalamin (VITAMIN B-12) 1,000 mcg tab Take 1 tablet by mouth once daily. ginkgo biloba leaf extract 60 mg tab Take 1 tablet by mouth once daily. famotidine (PEPCID) 40 mg tablet Take 40 mg by mouth daily at bedtime. mwjcufwuhbjf-wfjinmpk-npboryo k-coenzyme Q-10 (DEKAS PLUS) 200 mcg-1,000 mcg-10 mg chewable tablet Take 1 tablet by mouth once daily. folic acid 1 mg tablet Take 1 mg by mouth once daily. pantoprazole DR (PROTONIX) 40 mg tablet Take 40 mg by mouth once daily. thiamine (VITAMIN B1) 100 mg tablet Take 100 mg by mouth once daily. cholecalciferol (VITAMIN D3) 5,000 unit tab Take 5,000 Units by mouth once daily. dextromethorphan-guaiFENesin (MUCUS DM) 30-600 mg per tablet Take 1 tablet by mouth two times a day. (Patient not taking: Reported on 09/06/2023) 14 tablet 0 traZODone (DESYREL) 50 mg tablet Take 1 tablet by mouth daily at bedtime. (Patient not taking: Reported on 09/06/2023) 30 tablet 1 nadolol (CORGARD) 20 mg tablet Take 20 mg by mouth once daily. For 30 days No current facility-administered medications for this visit. Social History Tobacco Use Smoking status: Never Passive exposure: Never Smokeless tobacco: Never Vaping Use Vaping Use: Never used Substance Use Topics Alcohol use: Not Currently Drug use: Not Currently No family history on file. Review of Systems Constitutional: Negative for activity change, appetite change, fatigue and unexpected weight change. HENT: Negative for hearing loss and trouble swallowing. Eyes: Negative for visual disturbance. Respiratory: Negative for cough and shortness of breath. Cardiovascular: Negative for chest pain, palpitations and leg swelling. Gastrointestinal: Negative for diarrhea, nausea and vomiting. Genitourinary: Negative for difficulty urinating. Musculoskeletal: Positive for arthralgias and myalgias. Skin: Negative for rash and wound. Neurological: Negative for dizziness, light-headedness and headaches. Psychiatric/Behavioral: Positive for sleep disturbance. Negative for dysphoric mood. The patient is nervous/anxious. All other systems reviewed and are negative. BP 110/68 Pulse 76 Temp (Src) 97.9 (Oral) Resp 17 Ht 5' 10 (1.78m) Wt 186 lb 6.4 oz (84.6kg) SpO2 99% BMI 26.75 kg/(m^2). Physical Exam Vitals and nursing note reviewed. Constitutional: Appearance: Normal appearance. HENT: Head: Normocephalic and atraumatic. Ears: Comments: Grossly normal hearing Eyes: Pupils: Pupils are equal, round, and reactive to light. Cardiovascular: Rate and Rhythm: Normal rate and regular rhythm. Pulses: Normal pulses. Heart sounds: Normal heart sounds. No murmur heard. Pulmonary: Effort: Pulmonary effort is normal. Breath sounds: Normal breath sounds. Musculoskeletal: General: No swelling. Cervical back: Neck supple. Lymphadenopathy: Cervical: No cervical adenopathy. Skin: General: Skin is warm and dry. Capillary Refill: Capillary refill takes less than 2 seconds. Findings: No lesion or rash. Neurological: General: No focal deficit present. Mental Status: She is alert and oriented to person, place, and time. Psychiatric: Mood and Affect: Mood normal. Behavior: Behavior normal. Comments: Very talkative Medications were reviewed and verified. Assessment & Plan ASSESSMENT/PLAN: 1. Insomnia, unspecified type - ICD9: 780.52, ICD10: G47.00 (primary diagnosis) Increase trazodone to 100mg. Reviewed Sleep Hygiene - TRAZODONE 100 MG TABLET 2. Anxiety - ICD9: 300.00, ICD10: F41.9 No improvement. She would like to try stopping BuSpar and starting Celexa or Lexapro. Would like to discuss first with her GI, Dr. Friend. She will advise after that. 3. Hallucinations - ICD9: 780.1, ICD10: R44.3 Resolved since tizanidine decreased to 2mg TID 4. Peripheral nerve disease - ICD9: 355.9, ICD10: G62.9 Reports symptoms usually controlled with gabapentin 300mg TID, takes an extra 100mg at HS if needed. However, would like to have PRN oxycodone to use as needed for symptom flares. I did advise her that I do not prescribe narcotics for long-term use. She will return to f/u with her pain management provider for this request. I am willing to continue to prescribe her gabapentin. - GABAPENTIN 100 MG CAPSULE 5. Screening for colon cancer - ICD9: V76.51, ICD10: Z12.11 - COLOGUARD Aure Carlton APRN.CNP PATIENT NAME: Dominic Jimenez DATE: September 06, 2023 SIGNATURE: Aure Carlton APRN.TOBACCO FLAVORER documented in this encounter [facility] 09-06-2023 Nurse Note 4 week follow up Alireza Fernandez MA September 06, 2023 1:59 PM documented in this encounter [facility] 09-04-2023 Miscellaneous Notes Called patient and provided information. Patient voiced understanding she will scheduled with PM . Will discuss sleep issues at OV Saturday. Alireza Fernandez MA September 04, 2023 1:30 PM Patient called and stated she is having issues with sleep. Per patient not sleeping only a couple of hours daily, up all night . Asking if she could be prescribed Restoril stated a friend uses it and it works well, stated she was not sure if she could use this medication with her current health issues? Also requested 2-3 Oxycontin to help on the days when her neuropathy is severe? Per provider would need to request Oxycontin from pain management if she wished that form of medication . Restoril can be discussed at appointment on Saturday. Alireza Fernandez MA September 04, 2023 1:21 PM documented in this encounter [facility] 08-17-2023 Note HNO ID: [id number] Author: Geovany Rocha MD Service: ? Author Type: Physician Type: Progress Notes Filed: 08/17/2023 12:26 PM Note Text: SUBJECTIVE: Dominic Jimenez is a 53 year old female here today acutely because of having sore throat which is painful to swallow. The patient saw her nurse practitioner recently and was told it was a burst or a viral infection. Patient is wondering if there is anything else going on. Patient denies any fever or chills. Cough is nonproductive. Patient also does have neuropathy and normally takes tizanidine 2 mg. She is asking for refill until she sees her primary care physician again. Patient does also take gabapentin for her neuropathy. ALLERGIES No Known Allergies PAST MEDICAL HISTORY Diagnosis Date Alcoholic cirrhosis (HCC) Alcoholic hepatitis Anemia Clostridium difficile infection COVID-19 virus infection 08/2021 hospitalized Delirium 10/2021 prolonged hospital stay 09/2021-10/2021 at [facility] Depression Esophageal varices (HCC) Fatigue Hepatic encephalopathy (HCC) Neuropathy Splenomegaly Subdural hematoma (HCC) 09/2021 bilateral PAST SURGICAL HISTORY Procedure Laterality Date EGD 04/05/2022 TONSILLECTOMY AND ADENOIDECTOMY HX 1976 Social History Tobacco Use Smoking status: Never Passive exposure: Never Smokeless tobacco: Never Vaping Use Vaping Use: Never used Substance Use Topics Alcohol use: Not Currently Drug use: Not Currently Current Outpatient Medications on File Prior to Visit Medication Sig rifAXIMin (XIFAXAN) 550 mg tablet Take 550 mg by mouth twice daily. GEMTESA 75 mg tablet Take 1 tablet by mouth every afternoon. gabapentin (NEURONTIN) 300 mg capsule Take 300 mg by mouth three times daily. traZODone (DESYREL) 50 mg tablet Take 1 tablet by mouth daily at bedtime. lactulose 10 gram/15 mL solution Take 10 g by mouth three times daily as needed. ascorbic acid, vitamin C, (VITAMIN C) 500 mg tablet Take 500 mg by mouth once daily. cranberry fruit extract (CRANBERRY EXTRACT) 500 mg tab Take 1 tablet by mouth three times daily. d-mannose 500 mg cap Take 1,000 mg by mouth twice daily. Magnesium 250 mg tab Take 250 mg by mouth once daily. glucosamine/chondr jefferson A sod (GLUCOSAMINE-CHONDROITIN) 750-600 mg tab Take 1 tablet by mouth once daily. Lactobac no.41/Bifidobact no.7 (PROBIOTIC-10 ORAL) Take 1 tablet by mouth once daily. vitamin B complex (B COMPLEX 1 ORAL) Take 1 tablet by mouth once daily. DULoxetine (CYMBALTA) 60 mg capsule 1 capsule twice daily. estradiol 0.01% estriol 0.01% topical cream (CPD) Apply 0.1ml to upper inner arm daily. busPIRone (BUSPAR) 10 mg tablet Take 10 mg by mouth three times daily. PROGESTERONE MISC Dissolve one triturate under the tongue at bedtime. Milk Thistle 175 mg tab Take 1 tablet by mouth once daily. cyanocobalamin (VITAMIN B-12) 1,000 mcg tab Take 1 tablet by mouth once daily. ginkgo biloba leaf extract 60 mg tab Take 1 tablet by mouth once daily. famotidine (PEPCID) 40 mg tablet Take 40 mg by mouth daily at bedtime. nadolol (CORGARD) 20 mg tablet Take 20 mg by mouth once daily. For 30 days ienaadooyqwu-mlxlftqf-fnnyzuy k-coenzyme Q-10 (DEKAS PLUS) 200 mcg-1,000 mcg-10 mg chewable tablet Take 1 tablet by mouth once daily. folic acid 1 mg tablet Take 1 mg by mouth once daily. pantoprazole DR (PROTONIX) 40 mg tablet Take 40 mg by mouth once daily. thiamine (VITAMIN B1) 100 mg tablet Take 100 mg by mouth once daily. cholecalciferol (VITAMIN D3) 5,000 unit tab Take 5,000 Units by mouth once daily. tiZANidine (ZANAFLEX) 4 mg tablet Take 0.5 tablets by mouth three times daily as needed. No current facility-administered medications on file prior to visit. ROS: See HPI PHYSICAL EXAMINATION: BP 114/74 Pulse (!) 51 Temp 36.6 ?C (97.8 ?F) Resp 16 Wt 83.5 kg (184 lb) SpO2 96% BMI 27.17 kg/m? General appearance: Well appearing, alert, in no acute distress, well-hydrated, well nourished. Skin: Skin color, texture, turgor normal, no suspicious rashes or lesions Head: Normocephalic, no masses, lesions, tenderness or abnormalities Eyes: Anicteric sclera. Pupils are equally round and reactive to light. Extraocular movements are intact. Ears: External ears normal, canals clear Nose/Sinuses: Nares normal, septum midline, mucosa normal, no drainage or sinus tenderness Oropharynx: Lips, mucosa, and tongue normal, teeth and gums normal, oropharynx normal Neck: Supple, no adenopathy; thyroid symmetric, normal size, no bruits Back: Normal exam Lungs: Lungs clear to auscultation. No wheezing, rhonchi, rales. Heart: RRR without murmur, gallop, or rubs. No ectopy Abdomen: Normal abdominal exam, Abdomen soft, non-tender. Bowel sounds normal. No masses, organomegaly Extremities: No deformities, edema, skin discoloration, clubbing or cyanosis. Good capillary refill. Musculoskeletal: No joint swelling or tenderness Peripher (more content not included)... [facility] 08-16-2023 Miscellaneous Notes Has she tried Tylenol or ibuprofen for her throat? If not, advise to do that. No, I am not comfortable sending oxycontin for her neuropathy. We had discussed her seeing pain management and she did not feel she needed to, because she was doing well on her gabapentin. If that is not the case now, I would recommend that she follow back up with pain management. I will order for physical therapy. Addended by: AURE CARLTON on: 08/16/2023 10:45 AM Modules accepted: Orders Dominic was here on 08/14/2023. She called asking if you could send something in for her throat. It feels like it's on fire. Pharmacy is in her chart. [facility] in [place]. She also asked if you would send in 1 or 2 Oxy's for her as her neuropathy is really bad the last few days. She would also like a referral to Physical Therapy to strengthen her legs. Please advise. STEPHENIE STEEN MA August 16, 2023 10:13 AM documented in this encounter [facility] 08-14-2023 Note HNO ID: [id number] Author: Aure Carlton APRN.TOBACCO FLAVORER Service: ? Author Type: Nurse Practitioner Type: Progress Notes Filed: 08/14/2023 5:54 PM Note Text: Dominic Jimenez is a 53 year old female who presents with to establish (To establish N/P) Dominic presents today with her , Matt, to establish as a new patient. She was a prior patient of Dr. San, last seen about 4 mo ago. She also follows with Dr. Sarabia (GI), Dr. Lewis (REAL ESTATE EXECUTIVE ASSISTANT), Dr. Beauchamp (Uro/REAL ESTATE EXECUTIVE ASSISTANT), Dr. Painter (pain management.) She has a PMH of HLD, cirrhosis, depression, anxiety, neuropathy, insomnia. In Aug 2021, had COVID, urosepsis and was hospitalized at [facility] for about 2 weeks and then went to [facility] for about 7 weeks for hepatitis, encephalopathy d/t ETOH abuse. Dr. Sarabia is following her MELD score and she believes it has been around 11-12. Having trouble sleeping. Was taking trazodone 25mg and melatonin, not helping. Sleeping maybe 4 hours a night. Has been hallucinating, thinks it may be when she takes Zanaflex 4mg (taking 2 tabs at times.) She feels this is very helpful and does not want to stop taking, even though he would like her to try stopping it. States she has become very muslim and sometimes she believes that these are evidence of a spiritual warfare occurring, but also acknowledges at least some of these are more frightening hallucinations (saw people in her bedroom, 10 dolls staring at her from under the kitchen table) and her has to take pictures on her phone to show here they aren't really there. She has noticed this happening more in the past month, but notes it has been ongoing since her hospitalization in 2020. Still feeling anxious- on Duloxetine 60 BID and started on Buspar 10mg TID, does not feel it is helping. Was previously on Xanax but weaned off and does not want to be back on. Neuropathy- on gabapentin 300mg TID, which is helping. The history is provided by the patient. Hemoglobin A1C Date Value Ref Range Status 05/09/2023 5.4 4.3 - 6.0 % Final Comment: [place] [employer] guidelines indicate that patients with HgbA1c in the range 5.7-6.4% are at increased risk for development of diabetes, and intervention by lifestyle modification may be beneficial. HgbA1c greater or equal to 6.5% is considered diagnostic of diabetes. TSH Date Value Ref Range Status 05/09/2023 2.444 0.358 - 3.740 mIU/L Final Comment: 3rd generation ultra sensitive TSH. 02/01/2022 3.218 0.358 - 3.740 UIU/ML Final Comment: 3rd generation ultra sensitive TSH Albumin, Urine Random Date Value Ref Range Status 10/13/2021 <12.0 mg/L Final PAST MEDICAL HISTORY Diagnosis Date Alcoholic cirrhosis (HCC) Alcoholic hepatitis Anemia Clostridium difficile infection COVID-19 virus infection 08/2021 hospitalized Delirium 10/2021 prolonged hospital stay 09/2021-10/2021 at [facility] Depression Esophageal varices (HCC) Fatigue Hepatic encephalopathy (HCC) Neuropathy Splenomegaly Subdural hematoma (HCC) 09/2021 bilateral ACTIVE PROBLEM LIST Hallucinations Delirium Due to Multiple Etiologies, Acute, Hyperactive Depressive Disorder Acute Metabolic Encephalopathy Malnutrition of Moderate Degree (Hcc) Hyperlipidemia Alcoholic Hepatitis Hepatic Cirrhosis (Hcc) Peripheral Nerve Disease Wernicke's Disease Current Outpatient Medications Medication Sig Dispense Refill rifAXIMin (XIFAXAN) 550 mg tablet Take 550 mg by mouth twice daily. estradiol 0.01% estriol 0.01% topical cream (CPD) Apply 0.1ml to upper inner arm daily. busPIRone (BUSPAR) 10 mg tablet Take 10 mg by mouth three times daily. MULTIVITAMIN 12 INTRAVEN. Take by mouth. PROGESTERONE MISC Dissolve one triturate under the tongue at bedtime. hydrocortisone 2.5 % cream Apply 1 application to affected area twice daily. 20 g 0 Chfhrirynobto-Aveclamz-Vorync (MULTIVITAMIN 50 PLUS) tab Take 1 tablet by mouth once daily. Milk Thistle 175 mg tab as directed Orally cyanocobalamin (VITAMIN B-12) 1,000 mcg tab Take 1 tablet by mouth once daily. ginkgo biloba leaf extract 60 mg tab as directed Orally Magnesium 200 mg tab 1 tablet with a meal Orally Once a day glucosamine-chondroitin 500-400 mg capsule 1 tablet with a meal Orally Once a day melatonin 10 mg cap 2 tab(s) orally once a day (at bedtime) famotidine (PEPCID) 40 mg tablet Take 40 mg by mouth daily at bedtime. DULoxetine (CYMBALTA) 60 mg capsule doxycycline hyclate (VIBRAMYCIN) 100 mg capsule gabapentin (NEURONTIN) 300 mg capsule Take 300 mg by mouth. lactulose (DUPHALAC, CONSTULOSE) 10 gram/15 mL solution Enulose 10 gram/15 mL oral solution nadolol (CORGARD) 20 mg tablet Take 20 mg by mouth once daily. For 30 days rdcynuwfqzae-uljxsbbl-imujwvp k-coenzyme Q-10 (DEKAS PLUS) 200 mcg-1,000 mcg-10 mg chewable tablet Take 1 tablet by mouth once daily. folic acid 1 mg tablet Take 1 mg by mouth once daily. pantoprazole (PROTONI (more content not included)... [facility] 05-26-2023 Note HNO ID: [id number] Author: Mariana Fuchs, DO Service: ? Author Type: Physician Type: Progress Notes Filed: 05/26/2023 11:13 AM Note Text: Dominic Jimenez is a 53 year old FEMALE who presents with Nasal Congestion (AND CHEST CONGESTION W EAR PAIN AND SOB X10 DAYS) HPI PAST MEDICAL HISTORY Diagnosis Date Alcoholic cirrhosis (HCC) Alcoholic hepatitis Anemia Clostridium difficile infection COVID-19 virus infection 08/2021 hospitalized Delirium 10/2021 prolonged hospital stay 09/2021-10/2021 at [facility] Depression Esophageal varices (HCC) Fatigue Hepatic encephalopathy (HCC) Neuropathy Splenomegaly Subdural hematoma (HCC) 09/2021 bilateral ACTIVE PROBLEM LIST Hallucinations Delirium Due to Multiple Etiologies, Acute, Hyperactive Depressive Disorder Acute Metabolic Encephalopathy Malnutrition of Moderate Degree (Hcc) Current Outpatient Medications Medication Sig Dispense Refill estradiol 0.01% estriol 0.01% topical cream (CPD) Apply 0.1ml to upper inner arm daily. busPIRone (BUSPAR) 10 mg tablet Take 10 mg by mouth three times daily. cephALEXin (KEFLEX) 250 mg capsule TAKE 1 CAPSULE BY MOUTH EVERY DAY AT BEDTIME MULTIVITAMIN 12 INTRAVEN. Take by mouth. PROGESTERONE MISC Dissolve one triturate under the tongue at bedtime. hydrocortisone 2.5 % cream Apply 1 application to affected area twice daily. 20 g 0 Uvjlpurmxfptz-Dxzudfju-Zpssgo (MULTIVITAMIN 50 PLUS) tab Take 1 tablet by mouth once daily. thiamine mononitrate (VITAMIN B1) 100 mg tab 1 tab(s) orally once a day Milk Thistle 175 mg tab as directed Orally cyanocobalamin (VITAMIN B-12) 1,000 mcg tab Take 1 tablet by mouth once daily. ginkgo biloba leaf extract 60 mg tab as directed Orally Magnesium 200 mg tab 1 tablet with a meal Orally Once a day glucosamine-chondroitin 500-400 mg capsule 1 tablet with a meal Orally Once a day melatonin 10 mg cap 2 tab(s) orally once a day (at bedtime) famotidine (PEPCID) 40 mg tablet Take 40 mg by mouth daily at bedtime. DULoxetine (CYMBALTA) 60 mg capsule gabapentin (NEURONTIN) 300 mg capsule Take 300 mg by mouth. lactulose (DUPHALAC, CONSTULOSE) 10 gram/15 mL solution Enulose 10 gram/15 mL oral solution nadolol (CORGARD) 20 mg tablet Take 20 mg by mouth once daily. For 30 days VITAMIN B-1, MONONITRATE, 100 mg tab TAKE 1 TABLET BY MOUTH ONCE DAILY FOR 90 DAYS traZODone (DESYREL) 50 mg tablet Take 0.5 tablets by mouth daily at bedtime. wjdgcairmiss-broxltbh-kxvpcrl k-coenzyme Q-10 (DEKAS PLUS) 200 mcg-1,000 mcg-10 mg chewable tablet Take 1 tablet by mouth once daily. copper citrate 2 mg capsule Take 1 capsule by mouth once daily. folic acid 1 mg tablet Take 1 mg by mouth once daily. pantoprazole DR (PROTONIX) 40 mg tablet Take 40 mg by mouth once daily. thiamine (VITAMIN B1) 100 mg tablet Take 100 mg by mouth once daily. cholecalciferol (VITAMIN D3) 5,000 unit tab Take 5,000 Units by mouth once daily. gabapentin (NEURONTIN) 300 mg capsule Take 1 capsule by mouth three times daily for 30 days. 90 capsule 0 tiZANidine (ZANAFLEX) 4 mg tablet Take 1 tablet by mouth every 8 hours as needed. 90 tablet 0 azithromycin (ZITHROMAX Z-SANTIAGO) 250 mg tablet 2 tablets by mouth first day then 1 tablet the next 4 days 6 tablet 0 tiZANidine (ZANAFLEX) 2 mg tablet TAKE 1 TO 2 TABLETS BY MOUTH EVERY 8 HOURS NEEDED FOR MUSCLE SPASM (Patient not taking: Reported on 05/26/2023) doxycycline hyclate (VIBRAMYCIN) 100 mg capsule TAKE 1 CAPSULE BY MOUTH TWICE DAILY FOR 10 DAYS (Patient not taking: Reported on 05/26/2023) triamcinolone acetonide (KENALOG) 0.5 % cream APPLY TOPICALLY 2 TO 3 TIMES DAILY FOR 7 DAYS, DO NOT USE FOR MORE THAN 1-2 WEEKS CONSISTENTLY (Patient not taking: Reported on 05/26/2023) No current facility-administered medications for this visit. Social History Tobacco Use Smoking status: Never Passive exposure: Never Smokeless tobacco: Never Vaping Use Vaping Use: Never used Substance Use Topics Alcohol use: Not Currently Drug use: Not Currently Alcohol Use: Not Currently Tobacco Use: Never History reviewed. No pertinent family history. Review of Systems Constitutional: Patient was placed on Xanax by her primary care physician and because she was taking it less than it was prescribed she was only taking 1 a day if needed the primary care physician refused to write any more for her until she was seen and then could not get her in in a shorter period of time so the patient ran out of her medications and stopped cold turkey very anxious very tremulous and she has been off of it for 2 weeks she comes in here because she does not know what to do she has 2 medicines that are running out her physician will not write them for her and she is changing physicians so she is in between doctors and she needs a bridge prescription. The patient also does not know if she needs to be started on some different medication for anxiety she is c (more content not included)... [facility] 05-26-2023 History of Presen t illness Narrative Dominic Jimenez is a 53 year old FEMALE who presents with Nasal Congestion (AND CHEST CONGESTION W EAR PAIN AND SOB X10 DAYS) HPI PAST MEDICAL HISTORY Diagnosis Date Alcoholic cirrhosis (HCC) Alcoholic hepatitis Anemia Clostridium difficile infection COVID-19 virus infection 08/2021 hospitalized Delirium 10/2021 prolonged hospital stay 09/2021-10/2021 at [facility] Depression Esophageal varices (HCC) Fatigue Hepatic encephalopathy (HCC) Neuropathy Splenomegaly Subdural hematoma (HCC) 09/2021 bilateral ACTIVE PROBLEM LIST Hallucinations Delirium Due to Multiple Etiologies, Acute, Hyperactive Depressive Disorder Acute Metabolic Encephalopathy Malnutrition of Moderate Degree (Hcc) Current Outpatient Medications Medication Sig Dispense Refill estradiol 0.01% estriol 0.01% topical cream (CPD) Apply 0.1ml to upper inner arm daily. busPIRone (BUSPAR) 10 mg tablet Take 10 mg by mouth three times daily. cephALEXin (KEFLEX) 250 mg capsule TAKE 1 CAPSULE BY MOUTH EVERY DAY AT BEDTIME MULTIVITAMIN 12 INTRAVEN. Take by mouth. PROGESTERONE MISC Dissolve one triturate under the tongue at bedtime. hydrocortisone 2.5 % cream Apply 1 application to affected area twice daily. 20 g 0 Ceqlodesvgncp-Ynufmxcp-Saevjv (MULTIVITAMIN 50 PLUS) tab Take 1 tablet by mouth once daily. thiamine mononitrate (VITAMIN B1) 100 mg tab 1 tab(s) orally once a day Milk Thistle 175 mg tab as directed Orally cyanocobalamin (VITAMIN B-12) 1,000 mcg tab Take 1 tablet by mouth once daily. ginkgo biloba leaf extract 60 mg tab as directed Orally Magnesium 200 mg tab 1 tablet with a meal Orally Once a day glucosamine-chondroitin 500-400 mg capsule 1 tablet with a meal Orally Once a day melatonin 10 mg cap 2 tab(s) orally once a day (at bedtime) famotidine (PEPCID) 40 mg tablet Take 40 mg by mouth daily at bedtime. DULoxetine (CYMBALTA) 60 mg capsule gabapentin (NEURONTIN) 300 mg capsule Take 300 mg by mouth. lactulose (DUPHALAC, CONSTULOSE) 10 gram/15 mL solution Enulose 10 gram/15 mL oral solution nadolol (CORGARD) 20 mg tablet Take 20 mg by mouth once daily. For 30 days VITAMIN B-1, MONONITRATE, 100 mg tab TAKE 1 TABLET BY MOUTH ONCE DAILY FOR 90 DAYS traZODone (DESYREL) 50 mg tablet Take 0.5 tablets by mouth daily at bedtime. tgmzgjzhzyzr-ueorfsmd-nmsmlfd k-coenzyme Q-10 (DEKAS PLUS) 200 mcg-1,000 mcg-10 mg chewable tablet Take 1 tablet by mouth once daily. copper citrate 2 mg capsule Take 1 capsule by mouth once daily. folic acid 1 mg tablet Take 1 mg by mouth once daily. pantoprazole DR (PROTONIX) 40 mg tablet Take 40 mg by mouth once daily. thiamine (VITAMIN B1) 100 mg tablet Take 100 mg by mouth once daily. cholecalciferol (VITAMIN D3) 5,000 unit tab Take 5,000 Units by mouth once daily. gabapentin (NEURONTIN) 300 mg capsule Take 1 capsule by mouth three times daily for 30 days. 90 capsule 0 tiZANidine (ZANAFLEX) 4 mg tablet Take 1 tablet by mouth every 8 hours as needed. 90 tablet 0 azithromycin (ZITHROMAX Z-SANTIAGO) 250 mg tablet 2 tablets by mouth first day then 1 tablet the next 4 days 6 tablet 0 tiZANidine (ZANAFLEX) 2 mg tablet TAKE 1 TO 2 TABLETS BY MOUTH EVERY 8 HOURS NEEDED FOR MUSCLE SPASM (Patient not taking: Reported on 05/26/2023) doxycycline hyclate (VIBRAMYCIN) 100 mg capsule TAKE 1 CAPSULE BY MOUTH TWICE DAILY FOR 10 DAYS (Patient not taking: Reported on 05/26/2023) triamcinolone acetonide (KENALOG) 0.5 % cream APPLY TOPICALLY 2 TO 3 TIMES DAILY FOR 7 DAYS, DO NOT USE FOR MORE THAN 1-2 WEEKS CONSISTENTLY (Patient not taking: Reported on 05/26/2023) No current facility-administered medications for this visit. Social History Tobacco Use Smoking status: Never Passive exposure: Never Smokeless tobacco: Never Vaping Use Vaping Use: Never used Substance Use Topics Alcohol use: Not Currently Drug use: Not Currently Alcohol Use: Not Currently Tobacco Use: Never History reviewed. No pertinent family history. Review of Systems Constitutional: Patient was placed on Xanax by her primary care physician and because she was taking it less than it was prescribed she was only taking 1 a day if needed the primary care physician refused to write any more for her until she was seen and then could not get her in in a shorter period of time so the patient ran out of her medications and stopped cold turkey very anxious very tremulous and she has been off of it for 2 weeks she comes in here because she does not know what to do she has 2 medicines that are running out her physician will not write them for her and she is changing physicians so she is in between doctors and she needs a bridge prescription. The patient also does not know if she needs to be started on some different medication for anxiety she is currently already on Cymbalta BuSpar and trazodone so there is nothing else I am going to add to that I think she just needs to get over the withdrawal of the Xanax as well as get onto her regular medications. Psychiatric/Behavioral: The patient is nervous/anxious. All other systems reviewed and are negative. BP 122/67 Pulse 77 Temp 97.7 Resp 20 Wt 177 lb (80.3kg) SpO2 97% Physical Exam Vitals and nursing note reviewed. HENT: Head: Normocephalic. Nose: Congestion and rhinorrhea present. Mouth/Throat: Mouth: Mucous membranes are moist. Eyes: Extraocular Movements: Extraocular movements intact. Pupils: Pupils are equal, round, and reactive to light. Cardiovascular: Rate and Rhythm: Normal rate and regular rhythm. Pulses: Normal pulses. Heart sounds: Normal heart sounds. Pulmonary: Effort: Pulmonary effort is normal. Breath sounds: Normal breath sounds. Musculoskeletal: Comments: The patient has peripheral neuropathy Skin: General: Skin is warm. Capillary Refill: Capillary refill takes less than 2 seconds. Neurological: General: No focal deficit present. Mental Status: She is alert and oriented to person, place, and time. Psychiatric: Comments: Patient is an absolute nervous wreck shaking tremulous talking fast. He needs to be calm down in someway and I think getting her reestablished onto her medications will help. ASSESSMENT/PLAN: 1. Anxiety with depression - ICD9: 300.4, ICD10: F41.8 (primary diagnosis) 2. Bronchitis - ICD9: 490, ICD10: J40 - AZITHROMYCIN 250 MG TABLET 3. Neuropathy - ICD9: 355.9, ICD10: G62.9 - GABAPENTIN 300 MG CAPSULE - TIZANIDINE 4 MG TABLET Mariana Fuchs documented in this encounter [facility] 05-21-2023 Note HNO ID: [id number] Author: RT Shereen(R) Service: ? Author Type: Technologist Type: Progress Notes Filed: 05/21/2023 12:50 PM Note Text: Radiology Service Progress Note PATIENT NAME: Dominic Jimenez DATE OF SERVICE: May 21, 2023 TIME: 12:50 PM PATIENT IDENTITY VERIFICATION COMPLETED USING TWO (2) IDENTIFIERS: Name and Date of confirmed by patient verbally. FALL SCREENING: Has the patient had 2 falls in the last year or 1 fall with injury or currently using an Ambulatory Assistive Device (Walker, Cane, Wheelchair, Crutches, etc.)? No PATIENT GENDER DATA: Female. status: : No status: N/A PATIENT RELEVANT IMPLANT DATA REVIEWED: Not Applicable RADIOLOGY DEPARTMENT: General X-ray: Exam(s) Completed: Lower Extremity X-Ray(s): Foot, Right PERIPHERAL IV DATA: Not applicable SIGNED BY: RT Shereen(R) May 21, 2023 12:[address] [facility] 05-21-2023 Note HNO ID: [id number] Author: Mariana Fuchs, DO Service: ? Author Type: Physician Type: Progress Notes Filed: 05/21/2023 12:56 PM Note Text: Dominic Jimenez is a 53 year old FEMALE who presents with Toe Pain (Toe) (Right 5th toe/foot pain no injury woke up with pain) HPI PAST MEDICAL HISTORY Diagnosis Date Alcoholic cirrhosis (HCC) Alcoholic hepatitis Anemia Clostridium difficile infection COVID-19 virus infection 08/2021 hospitalized Delirium 10/2021 prolonged hospital stay 09/2021-10/2021 at [facility] Depression Esophageal varices (HCC) Fatigue Hepatic encephalopathy (HCC) Neuropathy Splenomegaly Subdural hematoma (HCC) 09/2021 bilateral ACTIVE PROBLEM LIST Hallucinations Delirium Due to Multiple Etiologies, Acute, Hyperactive Depressive Disorder Acute Metabolic Encephalopathy Malnutrition of Moderate Degree (Hcc) Current Outpatient Medications Medication Sig Dispense Refill estradiol 0.01% estriol 0.01% topical cream (CPD) Apply 0.1ml to upper inner arm daily. busPIRone (BUSPAR) 10 mg tablet Take 10 mg by mouth three times daily. cephALEXin (KEFLEX) 250 mg capsule TAKE 1 CAPSULE BY MOUTH EVERY DAY AT BEDTIME MULTIVITAMIN 12 INTRAVEN. Take by mouth. PROGESTERONE MISC Dissolve one triturate under the tongue at bedtime. hydrocortisone 2.5 % cream Apply 1 application to affected area twice daily. 20 g 0 Spgluhpqduaku-Pclsfmav-Vdgwdl (MULTIVITAMIN 50 PLUS) tab Take 1 tablet by mouth once daily. thiamine mononitrate (VITAMIN B1) 100 mg tab 1 tab(s) orally once a day Milk Thistle 175 mg tab as directed Orally cyanocobalamin (VITAMIN B-12) 1,000 mcg tab Take 1 tablet by mouth once daily. ginkgo biloba leaf extract 60 mg tab as directed Orally Magnesium 200 mg tab 1 tablet with a meal Orally Once a day glucosamine-chondroitin 500-400 mg capsule 1 tablet with a meal Orally Once a day melatonin 10 mg cap 2 tab(s) orally once a day (at bedtime) famotidine (PEPCID) 40 mg tablet Take 40 mg by mouth daily at bedtime. tiZANidine (ZANAFLEX) 2 mg tablet TAKE 1 TO 2 TABLETS BY MOUTH EVERY 8 HOURS NEEDED FOR MUSCLE SPASM DULoxetine (CYMBALTA) 60 mg capsule doxycycline hyclate (VIBRAMYCIN) 100 mg capsule TAKE 1 CAPSULE BY MOUTH TWICE DAILY FOR 10 DAYS gabapentin (NEURONTIN) 300 mg capsule Take 300 mg by mouth. lactulose (DUPHALAC, CONSTULOSE) 10 gram/15 mL solution Enulose 10 gram/15 mL oral solution nadolol (CORGARD) 20 mg tablet Take 20 mg by mouth once daily. For 30 days VITAMIN B-1, MONONITRATE, 100 mg tab TAKE 1 TABLET BY MOUTH ONCE DAILY FOR 90 DAYS triamcinolone acetonide (KENALOG) 0.5 % cream APPLY TOPICALLY 2 TO 3 TIMES DAILY FOR 7 DAYS, DO NOT USE FOR MORE THAN 1-2 WEEKS CONSISTENTLY traZODone (DESYREL) 50 mg tablet Take 0.5 tablets by mouth daily at bedtime. wsfsjwocbjqg-bnubnvnh-emahbga k-coenzyme Q-10 (DEKAS PLUS) 200 mcg-1,000 mcg-10 mg chewable tablet Take 1 tablet by mouth once daily. copper citrate 2 mg capsule Take 1 capsule by mouth once daily. folic acid 1 mg tablet Take 1 mg by mouth once daily. pantoprazole DR (PROTONIX) 40 mg tablet Take 40 mg by mouth once daily. thiamine (VITAMIN B1) 100 mg tablet Take 100 mg by mouth once daily. cholecalciferol (VITAMIN D3) 5,000 unit tab Take 5,000 Units by mouth once daily. No current facility-administered medications for this visit. Social History Tobacco Use Smoking status: Never Smokeless tobacco: Never Vaping Use Vaping Use: Never used Substance Use Topics Alcohol use: Not Currently Drug use: Not Currently Alcohol Use: Not Currently Tobacco Use: Never History reviewed. No pertinent family history. Review of Systems Musculoskeletal: This patient is complaining of pain in the right foot in the fifth toe and along the fifth metatarsal. She does not recall any specific injury she states that yesterday they had some unpacking in their basement and she stepped over a piece of plastic and felt a little off balance with her foot but did not have any severe pain. This morning she awakened and there was a bruise on her fifth toe and she has tremendous pain when she tries to weight-bear on that side of the foot so she presents here for further evaluation. She does have neuropathy in her history. BP 113/73 Pulse 77 Temp 98.2 Resp 18 SpO2 99% Physical Exam Musculoskeletal: Feet: Feet: Comments: Patient has some slight bruising on her fifth toe tenderness to palpation along the fifth metatarsal particularly distally and when I put flexion and pressure against the distal fifth metatarsal the patient has extreme pain. She has some bruising on that fifth toe. No real recall of any trauma. Pulses are +2/4 and capillary refill less than 3 seconds normal motor neurovascular and sensory to the digits. X-ray is obtained. ASSESSMENT/PLAN: 1. Contusion of right foot, initial encounter - ICD9: 924.20, ICD10: S90.31XA - XR FOOT GENERAL 3V AP/LAT/OBL R (more content not included)... [facility] 05-08-2023 Miscellaneous Notes Spoke with patient and patient states she has only taken one day of the ATB so she isn't sure if she is feeling better yet or not. Explained lab results to patient and patient states understanding and voices no other concerns at this time. Charlotte Cordero LPN Left message for patient to call back. Charlotte Cordero LPN ----- Message from Cr Grove MD sent at 05/08/2023 12:57 PM EDT ----- Please notify patient that if there is no improvement from the treatment he will need to be rechecked. She should follow-up with her doctor for evaluation and care documented in this encounter [facility] 05-07-2023 Note HNO ID: [id number] Author: Tania Centeno MD Service: ? Author Type: Physician Type: Progress Notes Filed: 05/07/2023 12:49 PM Note Text: Patient is a 53-year-old with body itching x4 days. She also has dysuria x1 week. He has had problems with urinary tract infections in the past. She does have an increased bilirubin because of liver cirrhosis. Medical history social history family history noted reviewed review of systems history present illness Blood pressure 131/85 pulse 73 respirations 18 temperature afebrile pulse ox 98% Exam generally well-nourished well-hydrated in no acute distress Abdomen is slightly distended because of her liver cirrhosis. There is no tenderness. No CVA tenderness skin with just more scratch dodson on her chest and shins due to the pruritus. No underlying rash or break in the skin no cellulitis Urinalysis shows 3+ leukocytes and is hazy and a specific gravity sample of 1015 Pression plan acute bladder infection we will send for culture and placed on Macrobid. Macrobid is renally excreted. We will follow-up if not improving #2 pruritus I really do not see a rash is localized she switched her progesterone medication so she will contact her doctor to prescribe that and see if he wants to change that. She does have an increased bilirubin which could be a cause of her pruritus. She will contact her liver doctor. Any worsening to go to the [facility] 05-07-2023 History of Presen t illness Narrative Patient is a 53-year-old with body itching x4 days. She also has dysuria x1 week. He has had problems with urinary tract infections in the past. She does have an increased bilirubin because of liver cirrhosis. Medical history social history family history noted reviewed review of systems history present illness Blood pressure 131/85 pulse 73 respirations 18 temperature afebrile pulse ox 98% Exam generally well-nourished well-hydrated in no acute distress Abdomen is slightly distended because of her liver cirrhosis. There is no tenderness. No CVA tenderness skin with just more scratch dodson on her chest and shins due to the pruritus. No underlying rash or break in the skin no cellulitis Urinalysis shows 3+ leukocytes and is hazy and a specific gravity sample of 1015 Pression plan acute bladder infection we will send for culture and placed on Macrobid. Macrobid is renally excreted. We will follow-up if not improving #2 pruritus I really do not see a rash is localized she switched her progesterone medication so she will contact her doctor to prescribe that and see if he wants to change that. She does have an increased bilirubin which could be a cause of her pruritus. She will contact her liver doctor. Any worsening to go to the ER documented in this encounter [facility] 04-25-2023 Note . MICRO - Microbiology PROCEDURE: Urine Culture [*1] SOURCE: Urine, Clean Catch BODY SITE: COLLECTED DATE/TIME: 04/23/2023 19:31 EDT RECEIVED DATE/TIME: 04/23/2023 22:34 EDT START DATE/TIME: 04/23/2023 22:34 EDT FREE TEXT SOURCE: FINAL REPORTS Final Report [] Verified Date/Time/Personnel: 04/25/2023 07:39 EDT >100,000 cfu/ml Multiple bacterial morphotypes present. Probable Contamination. Suggest recollection if clinically indicated. PRELIMINARY REPORTS Preliminary Report [] Verified Date/Time/Personnel: 04/24/2023 14:20 EDT Culture results pending. Performing Locations *1: This test was performed at: [facility], [address] [place] [address], [id number] , [facility] ([place]) 03-14-2023 Note HNO ID: [id number] Author: Riya Minaya MA Service: ? Author Type: Fitter'S Assistant Type: Progress Notes Filed: 03/14/2023 9:33 AM Note Text: Review of Systems Constitutional: Negative for activity change, chills, fever and unexpected weight change. Gastrointestinal: Negative for bowel retention or incontinence Genitourinary: Positive for difficulty urinating (Current UTI). Negative for bladder retention or incontinence Musculoskeletal: Positive for arthralgias, back pain, gait problem, joint swelling and myalgias. Negative for neck pain and neck stiffness. Neurological: Positive for weakness and numbness. Negative for headaches. Psychiatric/Behavioral: Positive for dysphoric mood. Negative for sleep disturbance and suicidal ideas. The patient is nervous/anxious. [facility] 03-14-2023 History of Presen t illness Narrative Review of Systems Constitutional: Negative for activity change, chills, fever and unexpected weight change. Gastrointestinal: Negative for bowel retention or incontinence Genitourinary: Positive for difficulty urinating (Current UTI). Negative for bladder retention or incontinence Musculoskeletal: Positive for arthralgias, back pain, gait problem, joint swelling and myalgias. Negative for neck pain and neck stiffness. Neurological: Positive for weakness and numbness. Negative for headaches. Psychiatric/Behavioral: Positive for dysphoric mood. Negative for sleep disturbance and suicidal ideas. The patient is nervous/anxious. Images from the original note were not included. [facility] General Name: Dominic Jimenez : 1970 Purpose: 2 month follow-up Today's Date: 03/14/2023 Last Visit: 12/27/2022 Chief complaint: numbness and pain in both hands and feet Dominic Jimenez is an established patient, returning today for continued evaluation and management of the chief complaint noted above. Interval History: Overall pain and functional disability: no change New Complaints: She reports she tripped and fell several times since last encounter. Most recently, she tripped on a rug in the house; another time was wearing no slip socks and slipped on her floor. She was told by an civil rights attorney that she did not qualify for disability. She is not interested in pursuing return to work, except perhaps for a few hours per week. Medications Prescribed: Started or modified: none Discontinued: none Maintained at current dosages: Cymbalta 60mg BID Gabapentin 300mg TID Tolerating Medication: yes Medications helping improve ADL's and Self-care: none Procedures Performed: DATE PROCEDURE IMPROVEMENT none Therapies Attended: (PT and OT for FCE) - she did not pursue the FCE after she was told that she did not qualify for disability 0 visits have been attended Studies Obtained: none (relevant findings reported below) Notable Events During Course of Treatment: 11/06/2022 - Initial HPI: Referred by Self, for evaluation & management of numbness and pain in both hands and feet (Disability Evaluation) Duration: Sep, 2021 Sudden onset? yes, Trauma? No She was hospitalized with Delta variant of COVID, had UTI, became septic, was resistant to antibiotics, became agitated and was diagnosed with elevated Ammonia levels, reports had a drinking problem. She reports she was deconditioned and had to learn to walk again with home PT/OT. She was able to quit drinking, has not had a drink since Aug 2021. She started having complaints of tingling and numbness in both feet, worsened over time and eventually involved the hands. She was diagnosed with Neuropathy via EMG. 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 She has not driven since Aug 2021 due to not being able to feel the car pedals. She is unable to type due to being unable to distinguish the keys. If she closes her eyes while standing, she will fall over. She is about to restart a course of PT INTAKE PAIN ASSESSMENT 02/10/2023 03/14/2023 Are you having pain associated with your visit today? No Yes, Provider notified Pain Scales - Verbal (Numeric Rating or Visual Analog Scale) Pain Level - 3 Pain Location - Foot-Left Description - Numbness;Sore Duration Amount of Time - - Duration Units - Years Frequency - Continuous Intervention/Comfort measure - Reposition;Relaxation;Positioni ng Pain Assessment - - Medications: Pain Medications Taken TO DATE (for the chief complaint(s)): Membrane Stabilizers: Neurontin (Gabapentin) and Cymbalta (Duloxetine) NSAIDS: none Opioids: Tramadol and Vicodin or Butler (Hydrocodone) Muscle Relaxants: Zanaflex (Tizanidine) Topicals: none Other Prescription or OTC Pain Medications: none Anti-depressants: Cymbalta and Trazodone, Xanax Non-Pain Meds of Note: none Allergies: ALLERGIES No Known Allergies Compliance: PDMP website checked and validated. All prescriptions have been APPROPRIATELY filled. No suspicious activity was identified. 03/14/2023 by Tere Painter MD Xanax, #60/mo, 0.25mg (Current) Tramadol 50mg (#12, 07/2022) Last Drug screen: Not Applicable Risk Assessment: GILMAR-7: GILMAR - 7 SCORES 12/27/2022 GILMAR-7 Score 5 (0-4) minimal anxiety, (5-9) mild anxiety, (10-14) moderate anxiety, (15-21) severe anxiety PHQ-9: PHQ-9 12/27/2022 Score 10 (0-4) minimal depression, (5-9) mild depression, (10-14) moderate depression, (15-19) moderately severe depression, (20-27) severe depression Opioid Risk Tool: Family History of Substance Abuse: 0 - No Personal History of Substance Abuse: Yes Alcohol: 3 - Yes Age between 16-45: 0 - No History of Pre-Adolescence Sexual Abuse: 0 - No Psychological Disease: 0 - No Risk Total: 3 Total Score Risk Category: Low Risk 0-3 (0-3, low risk or no risk; 4-7, moderate risk, 8+, high risk) Diagnostic Studies: Relevant Imaging: Reviewed Personally on today's date, noted above MRI Spine Report MRI LUMBAR SPINE WO/W IVCON Exam End: 10/10/2021 7:48 AM (Final result) Narrative: * * *Final Report* * * DATE OF EXAM: Oct 10 2021 7:48AM QBM [id number] - MRI LUMBAR SPINE WO/W IVCON / PROCEDURE REASON: Spine infection * * * * Physician Interpretation * * * * EXAMINATION: MRI LUMBAR SPINE WO/W IVCON CLINICAL HISTORY: Other (specify in question below). Spine infection. TECHNIQUE: Routine lumbar spine MRI without and with contrast. Contrast: 15 mL Dotarem IV MQ: [id number] COMPARISON: None. RESULT: Mildly suboptimal secondary to patient motion. Counting reference: Lumbosacral junction. For the purposes of this report, L4-5 is considered the level of the iliac crest and there are 5 lumbar-type vertebrae. Anatomic Variants: None. Paraspinal soft tissues: There is increased signal intensity/fluid in the presacral soft tissues which is nonspecific and could be inflammatory in nature. Partially imaged RIGHT adnexal cyst measures 5.4 AP by 4.2 transverse centimeters. No abnormal intradural enhancement. Mild STIR hyperintensity present within the posterior paravertebral musculature from approximately L3-L4 through L5-S1. This could reflect muscle strain or myositis. Alignment: Alignment is anatomic. Bone marrow signal/fracture: No evidence of pathologic marrow infiltration. No evidence of prior fracture. Posterior elements are intact. Incidental note made of an osseous hemangioma within L1 vertebral body. Conus: The conus is within normal limits of signal intensity and morphology. Lower thoracic spine: Visualized lower thoracic canal and foramina are patent. T12-L1: There is no significant central canal or neural foraminal stenosis. L1-L2: There is no significant neural foraminal or central canal stenosis. L2-L3: There is no significant central canal or neural foraminal stenosis. L3-L4: Minimal bulging disk present without significant central canal or neural foraminal stenosis. L4-L5: Minimal bulging disk present without significant central canal or neural foraminal stenosis. L5-S1: Minimal bulging disk present without significant central canal or neural foraminal stenosis. Sacrum and iliac wings: The visualized sacrum and iliac wings are within normal limits. Impression: IMPRESSION: Presacral edema could reflect infection or inflammation. No underlying osseous abnormality. Mild STIR hyperintensity present within the inferior posterior paravertebral musculature could reflect myositis/inflammation. No high-grade canal or foraminal stenosis. No intradural enhancement. Anatomic Variant: None. L4-5 is considered the level of the iliac crest and assume there are 5 lumbar-type vertebrae. Collar Trimmer: PSCCristiano Transcribe Date/Time: Oct 10 2021 7:55A Dictated by : JERI MAYBERRY MD This examination was interpreted and the report reviewed and electronically signed by: JERI MAYBERRY MD on Oct 10 2021 8:33AM EST US Abdomen 03/2022 1. Enlarged liver with diffuse hepatic steatosis versus other nonspecific diffuse chronic hepatocellular process. 2. Liver elastography results are suggestive of clinically significant portal hypertension. 3. Hydropic gallbladder with dependent sludge and small stones. No secondary features of acute cholecystitis. 4. No bile duct dilatation. 5. Unremarkable pancreas with pancreatic tail visualization limited by overlying bowel. CT Brain 10/2021 RESULT: HEAD CT: Acute abnormality: None. Interval involution of the right frontal subdural hygroma with residual collection of 4 mm at right mid frontal region which was 10 mm previously. No mass effect. Subtotal to complete resolution of the left convexity subdural collection. Remaining qnnqe-ghxzj-zotl tissues are stable with mild senescent volume loss. Mayfield-white distinction is well-maintained. No evidence for acute transcortical infarct or hemorrhage. No mass, mass effect or collections. Normal bones and skull base soft tissues. Component Latest Ref Rng & Units 11/21/2021 Sodium 136 - 145 MMOL/L 142 Potassium 3.5 - 5.1 MMOL/L 3.8 Chloride 98 - 107 MMOL/L 113 (H) CO2 21 - 32 MMOL/L 20.0 (L) Anion Gap 5 - 16 MMOL/L 9 Glucose 70 - 100 MG/DL 107 (H) BUN 7 - 26 MG/DL 10 Creatinine 0.510 - 0.950 MG/DL 0.43 (L) BUN/CREATININE RATIO 15 - 24 23 Calcium 8.5 - 10.5 MG/DL 9.0 Protein, Total 6.0 - 8.5 GM/DL 5.9 (L) Albumin 3.2 - 5.0 GM/DL 2.8 (L) GLOBULIN 2.2 - 4.2 GM/DL 3.1 ALBUMIN/GLOBULIN RATIO 0.8 - 2.0 0.9 Bilirubin, Total 0.2 - 1.0 MG/DL 1.30 (H) BILIRUBIN DIRECT 0.00 - 0.36 MG/DL 0.6 (H) AST 8 - 34 U/L 72 (H) ALT 13 - 61 U/L 35 Alkaline Phosphatase 45 - 117 U/L 64 Estimated GFR Greater than 60 eGFR- Greater than 60 Ammonia 11.0 - 32.0 UMOL/L 34.9 (H) Electrodiagnostic Study (EMG): None Pain Procedures: DATE PROCEDURE IMPROVEMENT None to date at this practice Current Medications, Past Medical History, Past Surgical History, Family History, Social History and Review of Systems: On today's date, noted above, I have confirmed and edited as necessary, the PFS and ROS obtained by others. Physical Exam: 03/14/23 0854 Pulse: (!) 45 Resp: 16 SpO2: 99% Constitutional:normal weight Eyes: Conjunctiva clear. No discharge from eyes Cardiovascular: Appears well perfused Lymphatic: No visible regional lymphadenopathy Skin: No visible rashes or ecchymosis Psychiatric: Full affect, Alert, Pleasant (From 12/2022) Neuro-Upper: Sensation: Diminished to light touch in bilateral upper limb dermatomes distal to the elbow Strength: Deltoid (C5): 4 left, 4 Right Biceps (C6): 4 left, 4 Right Triceps (C7): 4 left, 4 Right Wrist Extensors (C8): 4 left, 4 Right Abduct. Pollicis Brevis (T1): 4 left, 4 Right Muscle Tone: Normal and symmetric throughout, without clonus Reflexes: Decreased 1+ and symmetric biceps, triceps, brachioradialis Garcia: Negative (Normal) bilaterally Musculoskeletal-Upper: Inspection: Symmetric without atrophy Palpation: Cervical Paraspinal Tenderness: None Greater Occipital Nerves: no tenderness in overlying tissue Paraspinal spasm: Mild on right Range of Motion: Flexion/Extension: Normal Without end range pain Lateral Bending: Decreased 25% With end range pain Lateral Rotation: Decreased 25% Without end range pain Neuro-Lower: Neural Tension Signs: Negative slump in Bilateral lower limbs Sensation: diminished to light touch in the bilateral lower limb dermatomes distal to the knees Muscle Tone: Normal and symmetric throughout without clonus Strength: Iliopsoas (L2): 4 Left, 4 Right Quadriceps (L3) 4 Left, 4 Right Anterior Tibialis (L4): 4 Left, 4 Right Extensor Hallucis Longus (L5): 4 Left, 4 Right Gastrocnemius (S1): 4 Left, 4 Right Reflexes: Decreased 1+ and symmetric Musculoskeletal-Lower: Inspection: Symmetric without atrophy Palpation: Lumbar Paraspinal Tenderness: None on Bilateral side(s) Paraspinal Spasms: None PSIS Tenderness: None on Bilateral side(s) Greater Trochanter Tenderness: None on Bilateral side(s) Spine Range of Motion: Flexion: Decreased 25% Without end range pain Extension: Decreased 25% Without end range pain Combination extension and rotation pain: None Hip Range of Motion: Right Hip: Internal Rotation: Normal; Pain at end range: None External Rotation: Normal; Pain at end range: None Left Hip: Internal Rotation: Normal; Pain at end range: None External Rotation: Normal; Pain at end range: None Sacroiliac Maneuvers: Deferred Diagnoses: (G62.1) Alcoholic peripheral neuropathy (HCC) (primary encounter diagnosis) Pertinent Past Medical History: Acute metabolic encephalopathy, Malnutrition of moderate degree, Delirium due to multiple etiologies, acute, hyperactive, Depressive disorder, Hallucinations Impression: 53 year old female presents with complaint(s) of whole body weakness, diminished sensation in lower limbs, balance problems all secondary to peripheral neuropathy due to alcohol abuse. She is sober for over one year. She has been unable to return to work due to the functional limitations as a result of her medical conditioning, but she is reportedly not eligible. She is on adequate pain management regimen through her PCP. We discussed that there is little else that I can offer her beyond what is already being prescribed. Plan: Dominic Jimenez would benefit from the following to reach personal goals for decreasing pain, improving function and work participation, and/or improving quality of life: -Interventional Procedure: none The risks, benefits, alternative treatment options and prognosis of the procedure were discussed and all of the patient's questions/concerns were addressed to the patient s satisfaction. Patient was advised that they will need a interstate bus driver for after the procedure and that if no interstate bus driver is available and on site at the time of the procedure, the procedure will be cancelled. For any anticoagulants, the patient was advised on whether to continue or hold for this procedure. The patient expressed understanding and gave verbal consent to proceed. Medication(s): continue Cymbalta and Neurontin Discussed that Neurontin is not an as-needed medication. Advised taking consistent dose Additional Studies: none Referrals: No additional considerations at present Functional Cheondoism: Continue PT Depending on response to the above plan, consider: SCS trial - we discussed, she is not interested -Follow-up: PRN basis Attribution: In addition to reviewing the information noted above, some elements copied from my most recent clinical note(s), including the physical exam (completed in entirety today), and the impression and plan sections, have been updated where appropriate. All reflect current medical decision making from today's date. Tere Painter MD, [facility] documented in this encounter [facility] documented as of this encounter (statuses as of 08/16/2023) [facility]04[facility]2023 History of Past illness Narrative* Problem Noted Date Diagnosed Date Resolved Date Alcoholic hepatitis 03/05/2023 08/14/2023 08/14/20 23 Malnutrition of moderate degree 10/31/2021 08/14/2023 Acute metabolic encephalopathy 10/12/2021 08/14/2023 Delirium due to multiple glen ologies, acute, hyperactive 10/07/2021 08/14/2023 documented as of this encounter (statuses as of 09/04/2023) [facility] History of Past illness Narrative* Problem Noted Date Diagnosed Date Resolved Date Alcoholic hepatitis 03/05/2023 08/14/2023 08/14/20 23 Malnutrition of moderate degree 10/31/2021 08/14/2023 Acute metabolic encephalopathy 10/12/2021 08/14/2023 Delirium due to multiple glen ologies, acute, hyperactive 10/07/2021 08/14/2023 documented as of this encounter (statuses as of 09/07/2023) [facility] History of Past illness Narrative* Problem Noted Date Diagnosed Date Resolved Date Alcoholic hepatitis 03/05/2023 08/14/2023 08/14/20 23 Malnutrition of moderate degree 10/31/2021 08/14/2023 Acute metabolic encephalopathy 10/12/2021 08/14/2023 Delirium due to multiple glen ologies, acute, hyperactive 10/07/2021 08/14/2023 documented as of this encounter (statuses as of 09/08/2023) [facility] History of Past illness Narrative* Problem Noted Date Diagnosed Date Resolved Date Alcoholic hepatitis 03/05/2023 08/14/2023 08/14/20 23 Malnutrition of moderate degree 10/31/2021 08/14/2023 Acute metabolic encephalopathy 10/12/2021 08/14/2023 Delirium due to multiple glen ologies, acute, hyperactive 10/07/2021 08/14/2023 documented as of this encounter (statuses as of 09/26/2023) [address]18-2023 History of Past illness Narrative* Problem Noted Date Diagnosed Date Resolved Date Alcoholic hepatitis 03/05/2023 08/14/2023 08/14/20 23 Malnutrition of moderate degree 10/31/2021 08/14/2023 Acute metabolic encephalopathy 10/12/2021 08/14/2023 Delirium due to multiple glen ologies, acute, hyperactive 10/07/2021 08/14/2023 documented as of this encounter (statuses as of 09/26/2023) [address]18-2023 History of Past illness Narrative* Problem Noted Date Diagnosed Date Resolved Date Alcoholic hepatitis 03/05/2023 08/14/2023 08/14/20 23 Malnutrition of moderate degree 10/31/2021 08/14/2023 Acute metabolic encephalopathy 10/12/2021 08/14/2023 Delirium due to multiple glen ologies, acute, hyperactive 10/07/2021 08/14/2023 documented as of this encounter (statuses as of 10/01/2023) [address]18-2023 History of Past illness Narrative* Problem Noted Date Diagnosed Date Resolved Date Alcoholic hepatitis 03/05/2023 08/14/2023 08/14/20 23 Malnutrition of moderate degree 10/31/2021 08/14/2023 Acute metabolic encephalopathy 10/12/2021 08/14/2023 Delirium due to multiple glen ologies, acute, hyperactive 10/07/2021 08/14/2023 documented as of this encounter (statuses as of 10/23/2023) [address]18-2023 History of Past illness Narrative* Problem Noted Date Diagnosed Date Resolved Date Alcoholic hepatitis 03/05/2023 08/14/2023 08/14/20 23 Malnutrition of moderate degree 10/31/2021 08/14/2023 Acute metabolic encephalopathy 10/12/2021 08/14/2023 Delirium due to multiple glen ologies, acute, hyperactive 10/07/2021 08/14/2023 documented as of this encounter (statuses as of 11/02/2023) [address]18-2023 History of Past illness Narrative* Problem Noted Date Diagnosed Date Resolved Date Alcoholic hepatitis 03/05/2023 08/14/2023 08/14/20 23 Malnutrition of moderate degree 10/31/2021 08/14/2023 Acute metabolic encephalopathy 10/12/2021 08/14/2023 Delirium due to multiple glen ologies, acute, hyperactive 10/07/2021 08/14/2023 documented as of this encounter (statuses as of 11/02/2023) [facility] History of Past illness Narrative* Problem Noted Date Diagnosed Date Resolved Date Alcoholic hepatitis 03/05/2023 08/14/2023 08/14/20 23 Malnutrition of moderate degree 10/31/2021 08/14/2023 Acute metabolic encephalopathy 10/12/2021 08/14/2023 Delirium due to multiple glen ologies, acute, hyperactive 10/07/2021 08/14/2023 documented as of this encounter (statuses as of 11/03/2023) [facility] History of Past illness Narrative* Problem Noted Date Diagnosed Date Resolved Date Alcoholic hepatitis 03/05/2023 08/14/2023 08/14/20 23 Malnutrition of moderate degree 10/31/2021 08/14/2023 Acute metabolic encephalopathy 10/12/2021 08/14/2023 Delirium due to multiple glen ologies, acute, hyperactive 10/07/2021 08/14/2023 documented as of this encounter (statuses as of 11/17/2023) [facility]04-17-2023 NoteHNO ID: [id number] Author: Tere Painter MD Service: ? Author Type: Physician Type: Progress Notes Filed: 03/14/2023 9:33 AM Note Text: [facility] [place] General Name: Dominic Jimenez : 1970 Purpose: 2 month follow-up Today's Date: 03/14/2023 Last Visit: 12/27/2022 Chief complaint: numbness and pain in both hands and feet Dominic Jimenez is an established patient, returning today for continued evaluation and management of the chief complaint noted above. Interval History: Overall pain and functional disability: no change New Complaints: She reports she tripped and fell several times since last encounter. Most recently, she tripped on a rug in the house; another time was wearing no slip socks and slipped on her floor. She was told by an civil rights attorney that she did not qualify for disability. She is not interested in pursuing return to work, except perhaps for a few hours per week. Medications Prescribed: Started or modified: none Discontinued: none Maintained at current dosages: Cymbalta 60mg BID Gabapentin 300mg TID Tolerating Medication: yes Medications helping improve ADL's and Self-care: none Procedures Performed: DATE PROCEDURE IMPROVEMENT none Therapies Attended: (PT and OT for FCE) - she did not pursue the FCE after she was told that she did not qualify for disability 0 visits have been attended Studies Obtained: none (relevant findings reported below) Notable Events During Course of Treatment: 11/06/2022 - Initial HPI: Referred by Self, for evaluation AND management of numbness and pain in both hands and feet (Disability Evaluation) Duration: Sep, 2021 Sudden onset? yes, Trauma? No She was hospitalized with Delta variant of COVID, had UTI, became septic, was resistant to antibiotics, became agitated and was diagnosed with elevated Ammonia levels, reports had a drinking problem. She reports she was deconditioned and had to learn to walk again with home PT/OT. She was able to quit drinking, has not had a drink since Aug 2021. She started having complaints of tingling and numbness in both feet, worsened over time and eventually involved the hands. She was diagnosed with Neuropathy via EMG. 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 She has not driven since Aug 2021 due to not being able to feel the car pedals. She is unable to type due to being unable to distinguish the keys. If she closes her eyes while standing, she will fall over. She is about to restart a course of PT INTAKE PAIN ASSESSMENT 02/10/2023 03/14/2023 Are you having pain associated with your visit today? No Yes, Provider notified Pain Scales - Verbal (Numeric Rating or Visual Analog Scale) Pain Level - 3 Pain Location - Foot-Left Description - Numbness;Sore Duration Amount of Time - - Duration Units - Years Frequency - Continuous Intervention/Comfort measure - Reposition;Relaxation;Positioning Pain Assessment - - Medications: Pain Medications Taken TO DATE (for the chief complaint(s)): Membrane Stabilizers: Neurontin (Gabapentin) and Cymbalta (Duloxetine) NSAIDS: none Opioids: Tramadol and Vicodin or Butler (Hydrocodone) Muscle Relaxants: Zanaflex (Tizanidine) Topicals: none Other Prescription or OTC Pain Medications: none Anti-depressants: Cymbalta and Trazodone, Xanax Non-Pain Meds of Note: none Allergies: ALLERGIES No Known Allergies Compliance: PDMP website checked and validated. All prescriptions have been APPROPRIATELY filled. No suspicious activity was identified. 03/14/2023 by Tere Painter MD Xanax, #60/mo, 0.25mg (Current) Tramadol 50mg (#12, 07/2022) Last Drug screen: Not Applicable Risk Assessment: GILMAR-7: GILMAR - 7 SCORES 12/27/2022 GILMAR-7 Score 5 (0-4) minimal anxiety, (5-9) mild anxiety, (10-14) moderate anxiety, (15-21) severe anxiety PHQ-9: PHQ-9 12/27/2022 Score 10 (0-4) minimal depression, (5-9) mild depression, (10-14) moderate depression, (15-19) moderately severe depression, (20-27) severe depression Opioid Risk Tool: Family History of Substance Abuse: 0 - No Personal History of Substance Abuse: Yes Alcohol: 3 - Yes Age between 16-45: 0 - No History of Pre-Adolescence Sexual Abuse: 0 - No Psychological Disease: 0 - No Risk Total: 3 Total Score Risk Category: Low Risk 0-3 (0-3, low risk or no risk; 4-7, moderate risk, 8+, high risk) Diagnostic Studies: Relevant Imaging: Reviewed Personally on today's date, noted above MRI Spine Report MRI LUMBAR SPINE WO/W IVCON Exam End: 10/10/2021 7:48 AM (Final result) Narrative: * * *Final Report* * * DATE OF EXAM: Oct 10 2021 7:48AM QBM [id number] - MRI LUMBAR SPINE WO/W IVCON / PROCEDURE REASON: Spine infection * * * * Physician Interpretation * * * * EXAMINATION: MRI LUMBAR SPINE WO/W IVCON CL (more content not included)...[facility]03-26-2023 NoteHNO ID: [id number] Author: Cr Grove MD Service: ? Author Type: Physician Type: Progress Notes Filed: 02/10/2023 1:56 PM Note Text: Dominic Jimenez is a 52 year old FEMALE who presents with UTI (CLOUDY URINE, back pain x 6 days) 52 years old female present with low back ache and urinary discomfort Going on for the last 6 days No fever chills She has multiple UTI in the past PAST MEDICAL HISTORY Diagnosis Date Alcoholic cirrhosis (HCC) Alcoholic hepatitis Anemia Clostridium difficile infection COVID-19 virus infection 08/2021 hospitalized Delirium 10/2021 prolonged hospital stay 09/2021-10/2021 at [facility] Depression Esophageal varices (HCC) Fatigue Hepatic encephalopathy (HCC) Neuropathy Splenomegaly Subdural hematoma (HCC) 09/2021 bilateral ACTIVE PROBLEM LIST Hallucinations Delirium Due to Multiple Etiologies, Acute, Hyperactive Depressive Disorder Acute Metabolic Encephalopathy Malnutrition of Moderate Degree (Hcc) Current Outpatient Medications Medication Sig Dispense Refill oxyCODONE ir (OXYIR) 5 mg capsule Take by mouth. tiZANidine (ZANAFLEX) 2 mg tablet TAKE 1 TO 2 TABLETS BY MOUTH EVERY 8 HOURS NEEDED FOR MUSCLE SPASM DULoxetine (CYMBALTA) 60 mg capsule doxycycline hyclate (VIBRAMYCIN) 100 mg capsule TAKE 1 CAPSULE BY MOUTH TWICE DAILY FOR 10 DAYS gabapentin (NEURONTIN) 300 mg capsule Take 300 mg by mouth. gabapentin (NEURONTIN) 100 mg capsule gabapentin 100 mg capsule TAKE 1 CAPSULE BY MOUTH TWICE DAILY lactulose (DUPHALAC, CONSTULOSE) 10 gram/15 mL solution Enulose 10 gram/15 mL oral solution nadolol (CORGARD) 20 mg tablet Take 20 mg by mouth once daily. For 30 days VITAMIN B-1, MONONITRATE, 100 mg tab TAKE 1 TABLET BY MOUTH ONCE DAILY FOR 90 DAYS traMADol (ULTRAM) 50 mg tablet TAKE 1/2 TO 1 (ONE-HALF TO ONE) TABLET BY MOUTH EVERY 6 HOURS NEEDED FOR 3 DAYS triamcinolone acetonide (KENALOG) 0.5 % cream APPLY TOPICALLY 2 TO 3 TIMES DAILY FOR 7 DAYS, DO NOT USE FOR MORE THAN 1-2 WEEKS CONSISTENTLY traZODone (DESYREL) 50 mg tablet Take 0.5 tablets by mouth daily at bedtime. rbnzgtoiatih-napwidwk-kqwywfj k-coenzyme Q-10 (DEKAS PLUS) 200 mcg-1,000 mcg-10 mg chewable tablet Take 1 tablet by mouth once daily. melatonin 3 mg tablet 3 tablets by ORAL/FEEDING TUBE route daily at bedtime. copper citrate 2 mg capsule Take 1 capsule by mouth once daily. folic acid 1 mg tablet Take 1 mg by mouth once daily. pantoprazole DR (PROTONIX) 40 mg tablet Take 40 mg by mouth once daily. thiamine (VITAMIN B1) 100 mg tablet Take 100 mg by mouth once daily. cholecalciferol (VITAMIN D3) 5,000 unit tab Take 5,000 Units by mouth once daily. No current facility-administered medications for this visit. Social History Tobacco Use Smoking status: Never Smokeless tobacco: Never Vaping Use Vaping Use: Never used Substance Use Topics Alcohol use: Not Currently Drug use: Not Currently Alcohol Use: Not Currently Tobacco Use: Never History reviewed. No pertinent family history. Review of Systems Genitourinary: Positive for dysuria. Musculoskeletal: Positive for back pain. All other systems reviewed and are negative. There were no vitals taken for this visit. Physical Exam Vitals reviewed. Constitutional: General: She is not in acute distress. Appearance: Normal appearance. She is not ill-appearing or toxic-appearing. Cardiovascular: Rate and Rhythm: Normal rate and regular rhythm. Heart sounds: Normal heart sounds. Pulmonary: Effort: Pulmonary effort is normal. Breath sounds: Normal breath sounds. Abdominal: Tenderness: There is no right CVA tenderness or left CVA tenderness. Musculoskeletal: Cervical back: Normal range of motion and neck supple. Comments: Mild discomfort on palpation of lower lumbar area Neurological: Mental Status: She is alert. ASSESSMENT/PLAN: 1. Dysuria - ICD9: 788.1, ICD10: R30.0 (primary diagnosis) - URINALYSIS, DIPSTICK ONLY 2. Acute cystitis with hematuria - ICD9: 595.0, ICD10: N30.01 - NITROFURANTOIN MONOHYDRATE AND MACROCRYSTAL 100 MG ORAL CAP Fluids, f/u PCP Recheck if any change Explained details There was not enough quantity of urine for the culture Cr Grove [facility]03-26-2023 Instructions* Patient Instructions* Cr Grove MD - 02/10/2023 1:54 PM EDT Fluids, f/u PCP Recheck if any change Explained details [facility] History of Present illness Narrative* Cr Grove MD - 02/10/2023 12:19 PM EDT Dominic Jimenez is a 52 year old FEMALE who presents with UTI (CLOUDY URINE, back pain x 6 days) 52 years old female present with low back ache and urinary discomfort Going on for the last 6 days No fever chills She has multiple UTI in the past PAST MEDICAL HISTORY Diagnosis Date Alcoholic cirrhosis (HCC) Alcoholic hepatitis Anemia Clostridium difficile infection COVID-19 virus infection 08/2021 hospitalized Delirium 10/2021 prolonged hospital stay 09/2021-10/2021 at [facility] Depression Esophageal varices (HCC) Fatigue Hepatic encephalopathy (HCC) Neuropathy Splenomegaly Subdural hematoma (HCC) 09/2021 bilateral ACTIVE PROBLEM LIST Hallucinations Delirium Due to Multiple Etiologies, Acute, Hyperactive Depressive Disorder Acute Metabolic Encephalopathy Malnutrition of Moderate Degree (Hcc) Current Outpatient Medications Medication Sig Dispense Refill oxyCODONE ir (OXYIR) 5 mg capsule Take by mouth. tiZANidine (ZANAFLEX) 2 mg tablet TAKE 1 TO 2 TABLETS BY MOUTH EVERY 8 HOURS NEEDED FOR MUSCLE SPASM DULoxetine (CYMBALTA) 60 mg capsule doxycycline hyclate (VIBRAMYCIN) 100 mg capsule TAKE 1 CAPSULE BY MOUTH TWICE DAILY FOR 10 DAYS gabapentin (NEURONTIN) 300 mg capsule Take 300 mg by mouth. gabapentin (NEURONTIN) 100 mg capsule gabapentin 100 mg capsule TAKE 1 CAPSULE BY MOUTH TWICE DAILY lactulose (DUPHALAC, CONSTULOSE) 10 gram/15 mL solution Enulose 10 gram/15 mL oral solution nadolol (CORGARD) 20 mg tablet Take 20 mg by mouth once daily. For 30 days VITAMIN B-1, MONONITRATE, 100 mg tab TAKE 1 TABLET BY MOUTH ONCE DAILY FOR 90 DAYS traMADol (ULTRAM) 50 mg tablet TAKE 1/2 TO 1 (ONE-HALF TO ONE) TABLET BY MOUTH EVERY 6 HOURS NEEDED FOR 3 DAYS triamcinolone acetonide (KENALOG) 0.5 % cream APPLY TOPICALLY 2 TO 3 TIMES DAILY FOR 7 DAYS, DO NOTUSE FOR MORE THAN 1-2 WEEKS CONSISTENTLY traZODone (DESYREL) 50 mg tablet Take 0.5 tablets by mouth daily at bedtime. qnqzvmpsltzn-okprwrty-gavibsu k-coenzyme Q-10 (DEKAS PLUS) 200 mcg-1,000 mcg-10 mg chewable tablet Take 1 tablet by mouth once daily. melatonin 3 mg tablet 3 tablets by ORAL/FEEDING TUBE route daily at bedtime. copper citrate 2 mg capsule Take 1 capsule by mouth once daily. folic acid 1 mg tablet Take 1 mg by mouth once daily. pantoprazole DR (PROTONIX) 40 mg tablet Take 40 mg by mouth once daily. thiamine (VITAMIN B1) 100 mg tablet Take 100 mg by mouth once daily. cholecalciferol (VITAMIN D3) 5,000 unit tab Take 5,000 Units by mouth once daily. No current facility-administered medications for this visit. Social History Tobacco Use Smoking status: Never Smokeless tobacco: Never Vaping Use Vaping Use: Never used Substance Use Topics Alcohol use: Not Currently Drug use: Not Currently Alcohol Use: Not Currently Tobacco Use: Never History reviewed. No pertinent family history. Review of Systems Genitourinary: Positive for dysuria. Musculoskeletal: Positive for back pain. All other systems reviewed and are negative. There were no vitals taken for this visit. Physical Exam Vitals reviewed. Constitutional: General: She is not in acute distress. Appearance: Normal appearance. She is not ill-appearing or toxic-appearing. Cardiovascular: Rate and Rhythm: Normal rate and regular rhythm. Heart sounds: Normal heart sounds. Pulmonary: Effort: Pulmonary effort is normal. Breath sounds: Normal breath sounds. Abdominal: Tenderness: There is no right CVA tenderness or left CVA tenderness. Musculoskeletal: Cervical back: Normal range of motion and neck supple. Comments: Mild discomfort on palpation of lower lumbar area Neurological: Mental Status: She is alert. ASSESSMENT/PLAN: 1. Dysuria - ICD9: 788.1, ICD10: R30.0 (primary diagnosis) - URINALYSIS, DIPSTICK ONLY 2. Acute cystitis with hematuria - ICD9: 595.0, ICD10: N30.01 - NITROFURANTOIN MONOHYDRATE & MACROCRYSTAL 100 MG ORAL CAP Fluids, f/u PCP Recheck if any change Explained details There was not enough quantity of urine for the culture Cr Grove MD documented in this encounterSt[facility]23 NoteHNO ID: [id number] Author: Mariana Fuchs, DO Service: ? Author Type: Physician Type: Progress Notes Filed: 01/06/2023 3:13 PM Note Text: Dominic Jimenez is a 52 year old FEMALE who presents with rib pain (Left rib pain -- congestion in throat) HPI PAST MEDICAL HISTORY Diagnosis Date Alcoholic cirrhosis (HCC) Alcoholic hepatitis Anemia Clostridium difficile infection COVID-19 virus infection 08/2021 hospitalized Delirium 10/2021 prolonged hospital stay 09/2021-10/2021 at [facility] Depression Esophageal varices (HCC) Fatigue Hepatic encephalopathy (HCC) Neuropathy Splenomegaly Subdural hematoma (HCC) 09/2021 bilateral ACTIVE PROBLEM LIST Hallucinations Delirium Due to Multiple Etiologies, Acute, Hyperactive Depressive Disorder Acute Metabolic Encephalopathy Malnutrition of Moderate Degree (Hcc) Current Outpatient Medications Medication Sig Dispense Refill oxyCODONE ir (OXYIR) 5 mg capsule Take by mouth. tiZANidine (ZANAFLEX) 2 mg tablet TAKE 1 TO 2 TABLETS BY MOUTH EVERY 8 HOURS NEEDED FOR MUSCLE SPASM DULoxetine (CYMBALTA) 60 mg capsule doxycycline hyclate (VIBRAMYCIN) 100 mg capsule TAKE 1 CAPSULE BY MOUTH TWICE DAILY FOR 10 DAYS gabapentin (NEURONTIN) 300 mg capsule Take 300 mg by mouth. gabapentin (NEURONTIN) 100 mg capsule gabapentin 100 mg capsule TAKE 1 CAPSULE BY MOUTH TWICE DAILY lactulose (DUPHALAC, CONSTULOSE) 10 gram/15 mL solution Enulose 10 gram/15 mL oral solution nadolol (CORGARD) 20 mg tablet Take 20 mg by mouth once daily. For 30 days VITAMIN B-1, MONONITRATE, 100 mg tab TAKE 1 TABLET BY MOUTH ONCE DAILY FOR 90 DAYS traMADol (ULTRAM) 50 mg tablet TAKE 1/2 TO 1 (ONE-HALF TO ONE) TABLET BY MOUTH EVERY 6 HOURS NEEDED FOR 3 DAYS triamcinolone acetonide (KENALOG) 0.5 % cream APPLY TOPICALLY 2 TO 3 TIMES DAILY FOR 7 DAYS, DO NOT USE FOR MORE THAN 1-2 WEEKS CONSISTENTLY traZODone (DESYREL) 50 mg tablet Take 0.5 tablets by mouth daily at bedtime. dqinykuuvinr-vwrkdrjc-ppkhlig k-coenzyme Q-10 (DEKAS PLUS) 200 mcg-1,000 mcg-10 mg chewable tablet Take 1 tablet by mouth once daily. melatonin 3 mg tablet 3 tablets by ORAL/FEEDING TUBE route daily at bedtime. copper citrate 2 mg capsule Take 1 capsule by mouth once daily. folic acid 1 mg tablet Take 1 mg by mouth once daily. pantoprazole DR (PROTONIX) 40 mg tablet Take 40 mg by mouth once daily. thiamine (VITAMIN B1) 100 mg tablet Take 100 mg by mouth once daily. cholecalciferol (VITAMIN D3) 5,000 unit tab Take 5,000 Units by mouth once daily. No current facility-administered medications for this visit. Social History Tobacco Use Smoking status: Never Smokeless tobacco: Never Vaping Use Vaping Use: Never used Substance Use Topics Alcohol use: Not Currently Drug use: Never Alcohol Use: Not Currently Tobacco Use: Never History reviewed. No pertinent family history. Review of Systems Musculoskeletal: Patient fell 2 days ago and injured her left ribs she came in here for evaluation. X-ray was negative for fracture or dislocation. She states that the pain is intensifying and spreading is going up into the chest and the left side of the abdomen the patient states the pain is unbearable. And she presents now for further evaluation. She states she almost passed out from the pain. All other systems reviewed and are negative. BP 124/63 Pulse 66 Temp 98.6 Resp 16 Wt 185 lb (83.9kg) SpO2 99% Physical Exam Vitals and nursing note reviewed. Constitutional: Appearance: Normal appearance. HENT: Head: Normocephalic. Cardiovascular: Rate and Rhythm: Normal rate and regular rhythm. Pulses: Normal pulses. Heart sounds: Normal heart sounds. Pulmonary: Effort: Pulmonary effort is normal. Breath sounds: Normal breath sounds. Abdominal: Comments: Examination of the left ribs and abdomen there is no bruising on the ribs she is very tender on the lower ribs all the way to the sternum but she is tender below the ribs as well in the abdomen at the edges of the spleen I did not push too hard but even just minor pressure in that area elicits a lot of tenderness so she does have pain off of the ribs. This is concerning to me the patient states when she lays down she feels the pain go up behind her heart and up into the breast area. I think we need visualization at this point to rule out that the spleen was injured when she had this fall she states that she fell flat on the floor against that side. She states that it took her breath. There is no reason to repeat the x-ray was reported as negative by the radiologist. Neurological: Mental Status: She is alert. Assessment: Contusion of the rib on the left side, subsequent encounter ICD 10 S20.21 Injury of spleen, initial encounter, S36.00 XA Patient is referred directly to the emergency room for further evaluation and treatment. She chooses [facility] she lives close to their. Her is (more content not included)...[facility]02-19-2023 History of Present illness Narrative* Mariana Susankristie Fuchs, DO - 01/06/2023 3:06 PM EST Dominic Jimenez is a 52 year old FEMALE who presents with rib pain (Left rib pain -- congestion in throat) HPI PAST MEDICAL HISTORY Diagnosis Date Alcoholic cirrhosis (HCC) Alcoholic hepatitis Anemia Clostridium difficile infection COVID-19 virus infection 08/2021 hospitalized Delirium 10/2021 prolonged hospital stay 09/2021-10/2021 at [facility] Depression Esophageal varices (HCC) Fatigue Hepatic encephalopathy (HCC) Neuropathy Splenomegaly Subdural hematoma (HCC) 09/2021 bilateral ACTIVE PROBLEM LIST Hallucinations Delirium Due to Multiple Etiologies, Acute, Hyperactive Depressive Disorder Acute Metabolic Encephalopathy Malnutrition of Moderate Degree (Hcc) Current Outpatient Medications Medication Sig Dispense Refill oxyCODONE ir (OXYIR) 5 mg capsule Take by mouth. tiZANidine (ZANAFLEX) 2 mg tablet TAKE 1 TO 2 TABLETS BY MOUTH EVERY 8 HOURS NEEDED FOR MUSCLE SPASM DULoxetine (CYMBALTA) 60 mg capsule doxycycline hyclate (VIBRAMYCIN) 100 mg capsule TAKE 1 CAPSULE BY MOUTH TWICE DAILY FOR 10 DAYS gabapentin (NEURONTIN) 300 mg capsule Take 300 mg by mouth. gabapentin (NEURONTIN) 100 mg capsule gabapentin 100 mg capsule TAKE 1 CAPSULE BY MOUTH TWICE DAILY lactulose (DUPHALAC, CONSTULOSE) 10 gram/15 mL solution Enulose 10 gram/15 mL oral solution nadolol (CORGARD) 20 mg tablet Take 20 mg by mouth once daily. For 30 days VITAMIN B-1, MONONITRATE, 100 mg tab TAKE 1 TABLET BY MOUTH ONCE DAILY FOR 90 DAYS traMADol (ULTRAM) 50 mg tablet TAKE 1/2 TO 1 (ONE-HALF TO ONE) TABLET BY MOUTH EVERY 6 HOURS NEEDED FOR 3 DAYS triamcinolone acetonide (KENALOG) 0.5 % cream APPLY TOPICALLY 2 TO 3 TIMES DAILY FOR 7 DAYS, DO NOTUSE FOR MORE THAN 1-2 WEEKS CONSISTENTLY traZODone (DESYREL) 50 mg tablet Take 0.5 tablets by mouth daily at bedtime. jfacqnztupna-kqnmxjjo-isznfky k-coenzyme Q-10 (DEKAS PLUS) 200 mcg-1,000 mcg-10 mg chewable tablet Take 1 tablet by mouth once daily. melatonin 3 mg tablet 3 tablets by ORAL/FEEDING TUBE route daily at bedtime. copper citrate 2 mg capsule Take 1 capsule by mouth once daily. folic acid 1 mg tablet Take 1 mg by mouth once daily. pantoprazole DR (PROTONIX) 40 mg tablet Take 40 mg by mouth once daily. thiamine (VITAMIN B1) 100 mg tablet Take 100 mg by mouth once daily. cholecalciferol (VITAMIN D3) 5,000 unit tab Take 5,000 Units by mouth once daily. No current facility-administered medications for this visit. Social History Tobacco Use Smoking status: Never Smokeless tobacco: Never Vaping Use Vaping Use: Never used Substance Use Topics Alcohol use: Not Currently Drug use: Never Alcohol Use: Not Currently Tobacco Use: Never History reviewed. No pertinent family history. Review of Systems Musculoskeletal: Patient fell 2 days ago and injured her left ribs she came in here for evaluation. X-ray was negative for fracture or dislocation. She states that the pain is intensifying and spreading is going up into the chest and the left side of the abdomen the patient states the pain is unbearable. And she presents now for further evaluation. She states she almost passed out from the pain. All other systems reviewed and are negative. BP 124/63 Pulse 66 Temp 98.6 Resp 16 Wt 185 lb (83.9kg) SpO2 99% Physical Exam Vitals and nursing note reviewed. Constitutional: Appearance: Normal appearance. HENT: Head: Normocephalic. Cardiovascular: Rate and Rhythm: Normal rate and regular rhythm. Pulses: Normal pulses. Heart sounds: Normal heart sounds. Pulmonary: Effort: Pulmonary effort is normal. Breath sounds: Normal breath sounds. Abdominal: Comments: Examination of the left ribs and abdomen there is no bruising on the ribs she is very tender on the lower ribs all the way to the sternum but she is tender below the ribs as well in the abdomen at the edges of the spleen I did not push too hard but even just minor pressure in that area elicits a lot of tenderness so she does have pain off of the ribs. This is concerning to me the patient states when she lays down she feels the pain go up behind her heart and up into the breast area. Ithink we need visualization at this point to rule out that the spleen was injured when she had thisfall she states that she fell flat on the floor against that side. She states that it took her breath. There is no reason to repeat the x-ray was reported as negative by the radiologist. Neurological: Mental Status: She is alert. Assessment: Contusion of the rib on the left side, subsequent encounter ICD 10 S20.21 Injury of spleen, initial encounter, S36.00 XA Patient is referred directly to the emergency room for further evaluation and treatment. She chooses [facility] she lives close to their. Her is here he is going to drive her straight over. She was given a consultation referral form to take with her. documented in this encounterSt. [facility]23 NoteHNO ID: [id number] Author: Ash Cortez PA-C Service: ? Author Type: Physician Head Of Loss Prevention Type: Progress Notes Filed: 12/31/2022 12:27 PM Note Text: HPI: Dominic Jimenez is a 52 year old female who presents with rib pain (Left side rib pain from fall this morning, burning with urination possible blood in urine-----4 days). PAST MEDICAL HISTORY Diagnosis Date Alcoholic cirrhosis (HCC) Alcoholic hepatitis Anemia Clostridium difficile infection COVID-19 virus infection 08/2021 hospitalized Delirium 10/2021 prolonged hospital stay 09/2021-10/2021 at [facility] Depression Esophageal varices (HCC) Fatigue Hepatic encephalopathy Neuropathy Splenomegaly Subdural hematoma 09/2021 bilateral ACTIVE PROBLEM LIST Hallucinations Delirium Due to Multiple Etiologies, Acute, Hyperactive Depressive Disorder Acute Metabolic Encephalopathy Malnutrition of Moderate Degree (Hcc) Current Outpatient Medications Medication Sig Dispense Refill DULoxetine (CYMBALTA) 60 mg capsule doxycycline hyclate (VIBRAMYCIN) 100 mg capsule TAKE 1 CAPSULE BY MOUTH TWICE DAILY FOR 10 DAYS gabapentin (NEURONTIN) 300 mg capsule Take 300 mg by mouth. gabapentin (NEURONTIN) 100 mg capsule gabapentin 100 mg capsule TAKE 1 CAPSULE BY MOUTH TWICE DAILY lactulose (DUPHALAC, CONSTULOSE) 10 gram/15 mL solution Enulose 10 gram/15 mL oral solution nadolol (CORGARD) 20 mg tablet Take 20 mg by mouth once daily. For 30 days VITAMIN B-1, MONONITRATE, 100 mg tab TAKE 1 TABLET BY MOUTH ONCE DAILY FOR 90 DAYS traMADol (ULTRAM) 50 mg tablet TAKE 1/2 TO 1 (ONE-HALF TO ONE) TABLET BY MOUTH EVERY 6 HOURS NEEDED FOR 3 DAYS triamcinolone acetonide (KENALOG) 0.5 % cream APPLY TOPICALLY 2 TO 3 TIMES DAILY FOR 7 DAYS, DO NOT USE FOR MORE THAN 1-2 WEEKS CONSISTENTLY traZODone (DESYREL) 50 mg tablet Take 0.5 tablets by mouth daily at bedtime. dvvlppuphyqc-ihdusutg-bsodeqz k-coenzyme Q-10 (DEKAS PLUS) 200 mcg-1,000 mcg-10 mg chewable tablet Take 1 tablet by mouth once daily. melatonin 3 mg tablet 3 tablets by ORAL/FEEDING TUBE route daily at bedtime. copper citrate 2 mg capsule Take 1 capsule by mouth once daily. folic acid 1 mg tablet Take 1 mg by mouth once daily. pantoprazole DR (PROTONIX) 40 mg tablet Take 40 mg by mouth once daily. thiamine (VITAMIN B1) 100 mg tablet Take 100 mg by mouth once daily. cholecalciferol (VITAMIN D3) 5,000 unit tab Take 5,000 Units by mouth once daily. HYDROcodone-acetaminophen (NORCO) 5-325 mg per tablet Take 1 tablet by mouth every 6 hours as needed for pain for up to 3 days. 12 tablet 0 sulfamethoxazole-trimethoprim (BACTRIM DS) 800-160 mg per tablet Take 1 tablet by mouth twice daily for 5 days. 10 tablet 0 No current facility-administered medications for this visit. Social History Tobacco Use Smoking status: Never Smokeless tobacco: Never Vaping Use Vaping Use: Never used Substance Use Topics Alcohol use: Not Currently Drug use: Never Alcohol Use: Not Currently Tobacco Use: Never History reviewed. No pertinent family history. Review of Systems HENT: Negative. Negative for congestion and sore throat. Eyes: Negative. Respiratory: Negative for cough, shortness of breath and wheezing. Cardiovascular: Negative for chest pain. Gastrointestinal: Negative for diarrhea, nausea and vomiting. Genitourinary: Negative. Musculoskeletal: Positive for back pain. Skin: Negative. Neurological: Negative. Endo/Heme/Allergies: Negative. Psychiatric/Behavioral: Negative. All other systems reviewed and are negative. BP 108/70 Pulse 60 Temp 97.7 Resp 16 Wt 181 lb (82.1kg) SpO2 99% Physical Exam Vitals and nursing note reviewed. Constitutional: General: She is not in acute distress. Appearance: Normal appearance. She is normal weight. She is not ill-appearing or toxic-appearing. HENT: Head: Normocephalic and atraumatic. Right Ear: Tympanic membrane, ear canal and external ear normal. Left Ear: Tympanic membrane, ear canal and external ear normal. Nose: Nose normal. No congestion or rhinorrhea. Mouth/Throat: Mouth: Mucous membranes are moist. Pharynx: Oropharynx is clear. No oropharyngeal exudate or posterior oropharyngeal erythema. Eyes: Extraocular Movements: Extraocular movements intact. Conjunctiva/sclera: Conjunctivae normal. Pupils: Pupils are equal, round, and reactive to light. Cardiovascular: Rate and Rhythm: Normal rate and regular rhythm. Pulses: Normal pulses. Heart sounds: Normal heart sounds. Pulmonary: Effort: Pulmonary effort is normal. Breath sounds: Normal breath sounds. Abdominal: General: Abdomen is flat. Bowel sounds are normal. Palpations: Abdomen is soft. Musculoskeletal: General: Tenderness and signs of injury present. No swelling or deformity. Normal range of motion. Cervical back: Normal range of motion and neck supple. No tenderness. Lymphadenopathy: Cervical: No cervical adenopathy. (more content not included)...[facility]02-13-2023 NoteHNO ID: [id number] Author: RT Elizabeht(R) Service: ? Author Type: Technologist Type: Progress Notes Filed: 12/31/2022 12:21 PM Note Text: Radiology Service Progress Note PATIENT NAME: Dominic Jimenez DATE OF SERVICE: December 31, 2022 TIME: 12:20 PM PATIENT IDENTITY VERIFICATION COMPLETED USING TWO (2) IDENTIFIERS: Name and Date of confirmed by patient verbally. FALL SCREENING: Has the patient had 2 falls in the last year or 1 fall with injury or currently using an Ambulatory Assistive Device (Walker, Cane, Wheelchair, Crutches, etc.)? No PATIENT GENDER DATA: Female. status: : No status: N/A PATIENT RELEVANT IMPLANT DATA REVIEWED: Not Applicable RADIOLOGY DEPARTMENT: General X-ray: Exam(s) Completed: Rib X-Ray: Left PERIPHERAL IV DATA: Not applicable SIGNED BY: RT Elizabeth(R) December 31, 2022 12:20 [facility] History of Present illness Narrative* Ash Cortez PA-C - 12/31/2022 12:26 PM EST HPI: Dominic Jimenez is a 52 year old female who presents with rib pain (Left side rib pain from fall this morning, burning with urination possible blood in urine-----4 days). PAST MEDICAL HISTORY Diagnosis Date Alcoholic cirrhosis (HCC) Alcoholic hepatitis Anemia Clostridium difficile infection COVID-19 virus infection 08/2021 hospitalized Delirium 10/2021 prolonged hospital stay 09/2021-10/2021 at [facility] Depression Esophageal varices (HCC) Fatigue Hepatic encephalopathy Neuropathy Splenomegaly Subdural hematoma 09/2021 bilateral ACTIVE PROBLEM LIST Hallucinations Delirium Due to Multiple Etiologies, Acute, Hyperactive Depressive Disorder Acute Metabolic Encephalopathy Malnutrition of Moderate Degree (Hcc) Current Outpatient Medications Medication Sig Dispense Refill DULoxetine (CYMBALTA) 60 mg capsule doxycycline hyclate (VIBRAMYCIN) 100 mg capsule TAKE 1 CAPSULE BY MOUTH TWICE DAILY FOR 10 DAYS gabapentin (NEURONTIN) 300 mg capsule Take 300 mg by mouth. gabapentin (NEURONTIN) 100 mg capsule gabapentin 100 mg capsule TAKE 1 CAPSULE BY MOUTH TWICE DAILY lactulose (DUPHALAC, CONSTULOSE) 10 gram/15 mL solution Enulose 10 gram/15 mL oral solution nadolol (CORGARD) 20 mg tablet Take 20 mg by mouth once daily. For 30 days VITAMIN B-1, MONONITRATE, 100 mg tab TAKE 1 TABLET BY MOUTH ONCE DAILY FOR 90 DAYS traMADol (ULTRAM) 50 mg tablet TAKE 1/2 TO 1 (ONE-HALF TO ONE) TABLET BY MOUTH EVERY 6 HOURS NEEDED FOR 3 DAYS triamcinolone acetonide (KENALOG) 0.5 % cream APPLY TOPICALLY 2 TO 3 TIMES DAILY FOR 7 DAYS, DO NOTUSE FOR MORE THAN 1-2 WEEKS CONSISTENTLY traZODone (DESYREL) 50 mg tablet Take 0.5 tablets by mouth daily at bedtime. ubkzlnwcfumb-guwlzkiy-xsuqwki k-coenzyme Q-10 (DEKAS PLUS) 200 mcg-1,000 mcg-10 mg chewable tablet Take 1 tablet by mouth once daily. melatonin 3 mg tablet 3 tablets by ORAL/FEEDING TUBE route daily at bedtime. copper citrate 2 mg capsule Take 1 capsule by mouth once daily. folic acid 1 mg tablet Take 1 mg by mouth once daily. pantoprazole DR (PROTONIX) 40 mg tablet Take 40 mg by mouth once daily. thiamine (VITAMIN B1) 100 mg tablet Take 100 mg by mouth once daily. cholecalciferol (VITAMIN D3) 5,000 unit tab Take 5,000 Units by mouth once daily. HYDROcodone-acetaminophen (NORCO) 5-325 mg per tablet Take 1 tablet by mouth every 6 hours as needed for pain for up to 3 days. 12 tablet 0 sulfamethoxazole-trimethoprim (BACTRIM DS) 800-160 mg per tablet Take 1 tablet by mouth twice dailyfor 5 days. 10 tablet 0 No current facility-administered medications for this visit. Social History Tobacco Use Smoking status: Never Smokeless tobacco: Never Vaping Use Vaping Use: Never used Substance Use Topics Alcohol use: Not Currently Drug use: Never Alcohol Use: Not Currently Tobacco Use: Never History reviewed. No pertinent family history. Review of Systems HENT: Negative. Negative for congestion and sore throat. Eyes: Negative. Respiratory: Negative for cough, shortness of breath and wheezing. Cardiovascular: Negative for chest pain. Gastrointestinal: Negative for diarrhea, nausea and vomiting. Genitourinary: Negative. Musculoskeletal: Positive for back pain. Skin: Negative. Neurological: Negative. Endo/Heme/Allergies: Negative. Psychiatric/Behavioral: Negative. All other systems reviewed and are negative. BP 108/70 Pulse 60 Temp 97.7 Resp 16 Wt 181 lb (82.1kg) SpO2 99% Physical Exam Vitals and nursing note reviewed. Constitutional: General: She is not in acute distress. Appearance: Normal appearance. She is normal weight. She is not ill-appearing or toxic-appearing. HENT: Head: Normocephalic and atraumatic. Right Ear: Tympanic membrane, ear canal and external ear normal. Left Ear: Tympanic membrane, ear canal and external ear normal. Nose: Nose normal. No congestion or rhinorrhea. Mouth/Throat: Mouth: Mucous membranes are moist. Pharynx: Oropharynx is clear. No oropharyngeal exudate or posterior oropharyngeal erythema. Eyes: Extraocular Movements: Extraocular movements intact. Conjunctiva/sclera: Conjunctivae normal. Pupils: Pupils are equal, round, and reactive to light. Cardiovascular: Rate and Rhythm: Normal rate and regular rhythm. Pulses: Normal pulses. Heart sounds: Normal heart sounds. Pulmonary: Effort: Pulmonary effort is normal. Breath sounds: Normal breath sounds. Abdominal: General: Abdomen is flat. Bowel sounds are normal. Palpations: Abdomen is soft. Musculoskeletal: General: Tenderness and signs of injury present. No swelling or deformity. Normal range of motion. Cervical back: Normal range of motion and neck supple. No tenderness. Lymphadenopathy: Cervical: No cervical adenopathy. Skin: General: Skin is warm and dry. Capillary Refill: Capillary refill takes less than 2 seconds. Neurological: General: No focal deficit present. Mental Status: She is alert and oriented to person, place, and time. Psychiatric: Mood and Affect: Mood normal. Behavior: Behavior normal. Clinical Impression ICD-10-CM 1. Rib contusion, left, initial encounter S20.212A XR RIBS/CHEST 3V AP RIB/OBLS/CXR LEFT HYDROcodone-acetaminophen (NORCO) 5-325 mg per tablet 2. Recurrent UTI (urinary tract infection) N39.0 URINALYSIS, DIPSTICK ONLY PLAN: Pain to palpate lateral aspect of left ribs. No organomegaly, no tenderness left upper quadrant. Noobvious fracture on x-ray. Discharged with pain medication. She has incentive spirometry at home. She does have a urinary tract infection. Put on 5-day course of Bactrim Ash Cortez PA-C This note was generated with voice recognition software and may contain errors, including spelling,grammar, syntax and misrecognition of what was dictated, that are not fully corrected. documented in this encounterSt. [facility] NoteHNO ID: [id number] Author: Riya Minaya MA Service: ? Author Type: Fitter'S Assistant Type: Progress Notes Filed: 12/27/2022 10:14 AM Note Text: Review of Systems Constitutional: Negative for activity change, chills, fever and unexpected weight change. Gastrointestinal: Negative for bowel retention or incontinence Genitourinary: Negative for difficulty urinating. Negative for bladder retention or incontinence Musculoskeletal: Positive for arthralgias, back pain, gait problem, myalgias, neck pain and neck stiffness. Negative for joint swelling. Neurological: Positive for weakness and numbness. Negative for headaches. Psychiatric/Behavioral: Positive for dysphoric mood and sleep disturbance. Negative for suicidal ideas. The patient is nervous/anxious.[facility]02-09-2023 History of Present illness Narrative* Riya Minaya MA - 12/27/2022 9:03 AM EST Review of Systems Constitutional: Negative for activity change, chills, fever and unexpected weight change. Gastrointestinal: Negative for bowel retention or incontinence Genitourinary: Negative for difficulty urinating. Negative for bladder retention or incontinence Musculoskeletal: Positive for arthralgias, back pain, gait problem, myalgias, neck pain and neck stiffness. Negative for joint swelling. Neurological: Positive for weakness and numbness. Negative for headaches. Psychiatric/Behavioral: Positive for dysphoric mood and sleep disturbance. Negative for suicidal ideas. The patient is nervous/anxious. * Tere Painter MD - 11/06/2022 3:53 PM EST Images from the original note were not included. [facility] Today's Date: 12/27/2022 Last Visit: N/A Name: Dominic Jimenez : 1970 Purpose: New Patient Evaluation Chief complaint: numbness and pain in both hands and feet (Disability Evaluation) Notable Events During Course of Treatment: 11/06/2022 - Initial HPI: Referred by Self, for evaluation & management of numbness and pain inboth hands and feet (Disability Evaluation) Duration: Sep, 2021 Sudden onset? yes, Trauma? No She was hospitalized with Delta variant of COVID, had UTI, became septic, was resistant to antibiotics, became agitated and was diagnosed with elevated Ammonia levels, reports had a drinking problem.She reports she was deconditioned and had to learn to walk again with home PT/OT. She was able to quit drinking, has not had a drink since Aug 2021. She started having complaints of tingling and numbness in both feet, worsened over time and eventually involved the hands. She was diagnosed with Neuropathy via EMG. 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 She has not driven since Aug 2021 due to notbeing able to feel the car pedals. She is unable to type due to being unable to distinguish the keys. If she closes her eyes while standing, she will fall over. She is about to restart a course of PT INTAKE PAIN ASSESSMENT 08/28/2022 12/27/2022 Are you having pain associated with your visit today? Yes, Provider notified Yes, Provider notified Pain Scales Verbal (Numeric Rating or Visual Analog Scale) Verbal (Numeric Rating or Visual Analog Scale) Pain Level 1 - Pain Location - Leg-Left Description - Numbness;Tingling;Sharp;Throbbing;Shooting;Aching;Sore Duration Amount of Time - 2 Duration Units - Years Frequency - Continuous Intervention/Comfort measure - Reposition;Relaxation;Positioning Pain Assessment - - Medications: CURRENT Pain Medications: Cymbalta 60mg BID Gabapentin 300mg TID Xanax 0.5mg Pain Medications Taken TO DATE (for the chief complaint(s)): Membrane Stabilizers: Neurontin (Gabapentin) and Cymbalta (Duloxetine) NSAIDS: none Opioids: Tramadol and Vicodin or Butler (Hydrocodone) Muscle Relaxants: Zanaflex (Tizanidine) Topicals: none Other Prescription or OTC Pain Medications: none Anti-depressants: Cymbalta and Trazodone, Xanax Non-Pain Meds of Note: none Allergies: ALLERGIES No Known Allergies Compliance: PDMP website checked and validated. All prescriptions have been APPROPRIATELY filled. No suspiciousactivity was identified. 12/27/2022 by Tere Painter MD Xanax, #60/mo, 0.25mg (Current) Tramadol 50mg (#12, 07/2022) Last Drug screen: Not Applicable Risk Assessment: GILMAR-7: GILMAR - 7 SCORES 12/27/2022 GILMAR-7 Score 5 (0-4) minimal anxiety, (5-9) mild anxiety, (10-14) moderate anxiety, (15-21) severe anxiety PHQ-9: PHQ-9 12/27/2022 Score 10 (0-4) minimal depression, (5-9) mild depression, (10-14) moderate depression, (15-19) moderately severe depression, (20-27) severe depression Opioid Risk Tool: Family History of Substance Abuse: 0 - No Personal History of Substance Abuse: Yes Alcohol: 3 - Yes Age between 16-45: 0 - No History of Pre-Adolescence Sexual Abuse: 0 - No Psychological Disease: 0 - No Risk Total: 3 Total Score Risk Category: Low Risk 0-3 (0-3, low risk or no risk; 4-7, moderate risk, 8+, high risk) Diagnostic Studies: Relevant Imaging: Reviewed Personally on today's date, noted above MRI Spine Report MRI LUMBAR SPINE WO/W IVCON Exam End: 10/10/2021 7:48 AM (Final result) Narrative: * * *Final Report* * * DATE OF EXAM: Oct 10 2021 7:48AM QBM [id number] - MRI LUMBAR SPINE WO/W IVCON / PROCEDURE REASON: Spine infection * * * * Physician Interpretation * * * * EXAMINATION: MRI LUMBAR SPINE WO/W IVCON CLINICAL HISTORY: Other (specify in question below). Spine infection. TECHNIQUE: Routine lumbar spine MRI without and with contrast. Contrast: 15 mL Dotarem IV MQ: [id number] COMPARISON: None. RESULT: Mildly suboptimal secondary to patient motion. Counting reference: Lumbosacral junction. For the purposes of this report, L4-5 is considered the level of the iliac crest and there are 5 lumbar-type vertebrae. Anatomic Variants: None. Paraspinal soft tissues: There is increased signal intensity/fluid in the presacral soft tissues which is nonspecific and could be inflammatory in nature. Partially imaged RIGHT adnexal cyst measures 5.4 AP by 4.2 transverse centimeters. No abnormal intradural enhancement. Mild STIR hyperintensity present within the posterior paravertebral musculature from approximately L3-L4 through L5-S1. This could reflect muscle strain or myositis. Alignment: Alignment is anatomic. Bone marrow signal/fracture: No evidence of pathologic marrow infiltration. No evidence of prior fracture. Posterior elements are intact. Incidental note made of an osseous hemangioma within L1 vertebral body. Conus: The conus is within normal limits of signal intensity and morphology. Lower thoracic spine: Visualized lower thoracic canal and foramina are patent. T12-L1: There is no significant central canal or neural foraminal stenosis. L1-L2: There is no significant neural foraminal or central canal stenosis. L2-L3: There is no significant central canal or neural foraminal stenosis. L3-L4: Minimal bulging disk present without significant central canal or neural foraminal stenosis. L4-L5: Minimal bulging disk present without significant central canal or neural foraminal stenosis. L5-S1: Minimal bulging disk present without significant central canal or neural foraminal stenosis. Sacrum and iliac wings: The visualized sacrum and iliac wings are within normal limits. Impression: IMPRESSION: Presacral edema could reflect infection or inflammation. No underlying osseous abnormality. Mild STIR hyperintensity present within the inferior posterior paravertebral musculature could reflect myositis/inflammation. No high-grade canal or foraminal stenosis. No intradural enhancement. Anatomic Variant: None. L4-5 is considered the level of the iliac crest and assume there are 5 lumbar-type vertebrae. Collar Trimmer: [facility] Transcribe Date/Time: Oct 10 2021 7:55A Dictated by : JERI MAYBERRY MD This examination was interpreted and the report reviewed and electronically signed by: JERI MAYBERRY MD on Oct 10 2021 8:33AM EST US Abdomen 03/2022 1. Enlarged liver with diffuse hepatic steatosis versus other nonspecific diffuse chronic hepatocellular process. 2. Liver elastography results are suggestive of clinically significant portal hypertension. 3. Hydropic gallbladder with dependent sludge and small stones. No secondary features of acute cholecystitis. 4. No bile duct dilatation. 5. Unremarkable pancreas with pancreatic tail visualization limited by overlying bowel. CT Brain 10/2021 RESULT: HEAD CT: Acute abnormality: None. Interval involution of the right frontal subdural hygroma with residual collection of 4 mm at rightmid frontal region which was 10 mm previously. No mass effect. Subtotal to complete resolution of the left convexity subdural collection. Remaining xwwhy-[id number]-uwbf tissues are stable with mild senescent volume loss. Mayfield-white distinction is well-maintained. No evidence for acute transcortical infarct or hemorrhage. No mass, mass effect or collections. Normal bones and skull base soft tissues. Component Latest Ref Rng & Units 11/21/2021 Sodium 136 - 145 MMOL/L 142 Potassium 3.5 - 5.1 MMOL/L 3.8 Chloride 98 - 107 MMOL/L 113 (H) CO2 21 - 32 MMOL/L 20.0 (L) Anion Gap 5 - 16 MMOL/L 9 Glucose 70 - 100 MG/DL 107 (H) BUN 7 - 26 MG/DL 10 Creatinine 0.510 - 0.950 MG/DL 0.43 (L) BUN/CREATININE RATIO 15 - 24 23 Calcium 8.5 - 10.5 MG/DL 9.0 Protein, Total 6.0 - 8.5 GM/DL 5.9 (L) Albumin 3.2 - 5.0 GM/DL 2.8 (L) GLOBULIN 2.2 - 4.2 GM/DL 3.1 ALBUMIN/GLOBULIN RATIO 0.8 - 2.0 0.9 Bilirubin, Total 0.2 - 1.0 MG/DL 1.30 (H) BILIRUBIN DIRECT 0.00 - 0.36 MG/DL 0.6 (H) AST 8 - 34 U/L 72 (H) ALT 13 - 61 U/L 35 Alkaline Phosphatase 45 - 117 U/L 64 Estimated GFR Greater than 60 eGFR- Greater than 60 Ammonia 11.0 - 32.0 UMOL/L 34.9 (H) Electrodiagnostic Study (EMG): None Pain Procedures: DATE PROCEDURE IMPROVEMENT None to date at this practice Current Medications, Past Medical History, Past Surgical History, Family History, Social History and Review of Systems: On today's date, noted above, I have confirmed and edited as necessary, the PFSH and ROS obtained by others. Physical Exam: 12/27/22 0932 Pulse: 69 Resp: 16 SpO2: 99% Constitutional:normal weight Eyes: Conjunctiva clear. No discharge from eyes Cardiovascular: Appears well perfused Lymphatic: No visible regional lymphadenopathy Skin: No visible rashes or ecchymosis Psychiatric: Full affect, Alert, Pleasant Neuro-Upper: Sensation: Diminished to light touch in bilateral upper limb dermatomes distal to the elbow Strength: Deltoid (C5): 4 left, 4 Right Biceps (C6): 4 left, 4 Right Triceps (C7): 4 left, 4 Right Wrist Extensors (C8): 4 left, 4 Right Abduct. Pollicis Brevis (T1): 4 left, 4 Right Muscle Tone: Normal and symmetric throughout, without clonus Reflexes: Decreased 1+ and symmetric biceps, triceps, brachioradialis Garcia: Negative (Normal) bilaterally Musculoskeletal-Upper: Inspection: Symmetric without atrophy Palpation: Cervical Paraspinal Tenderness: None Greater Occipital Nerves: no tenderness in overlying tissue Paraspinal spasm: Mild on right Range of Motion: Flexion/Extension: Normal Without end range pain Lateral Bending: Decreased 25% With end range pain Lateral Rotation: Decreased 25% Without end range pain Neuro-Lower: Neural Tension Signs: Negative slump in Bilateral lower limbs Sensation: diminished to light touch in the bilateral lower limb dermatomes distal to the knees Muscle Tone: Normal and symmetric throughout without clonus Strength: Iliopsoas (L2): 4 Left, 4 Right Quadriceps (L3) 4 Left, 4 Right Anterior Tibialis (L4): 4 Left, 4 Right Extensor Hallucis Longus (L5): 4 Left, 4 Right Gastrocnemius (S1): 4 Left, 4 Right Reflexes: Decreased 1+ and symmetric Musculoskeletal-Lower: Inspection: Symmetric without atrophy Palpation: Lumbar Paraspinal Tenderness: None on Bilateral side(s) Paraspinal Spasms: None PSIS Tenderness: None on Bilateral side(s) Greater Trochanter Tenderness: None on Bilateral side(s) Spine Range of Motion: Flexion: Decreased 25% Without end range pain Extension: Decreased 25% Without end range pain Combination extension and rotation pain: None Hip Range of Motion: Right Hip: Internal Rotation: Normal; Pain at end range: None External Rotation: Normal; Pain at end range: None Left Hip: Internal Rotation: Normal; Pain at end range: None External Rotation: Normal; Pain at end range: None Sacroiliac Maneuvers: Deferred Diagnoses: (G62.1) Alcoholic peripheral neuropathy (HCC) (primary encounter diagnosis) Pertinent Past Medical History: Acute metabolic encephalopathy, Malnutrition of moderate degree, Delirium due to multiple etiologies, acute, hyperactive, Depressive disorder, Hallucinations Impression: 52 year old female presents with complaint(s) of whole body weakness, diminished sensation in lower limbs, balance problems all secondary to peripheral neuropathy due to alcohol abuse. She is sober for over one year. She has been unable to return to work due to the functional limitations as a result of her medical conditioning. She is on adequate pain management regimen through her PCP. She is reluctantly pursuing disability to support financially. Plan: Dominic Jimenez would benefit from the following to reach personal goals for decreasing pain, improving function and work participation, and/or improving quality of life: -Interventional Procedure: none The risks, benefits, alternative treatment options and prognosis of the procedure were discussed and all of the patient's questions/concerns were addressed to the patient s satisfaction. Patient was advised that they will need a interstate bus driver for after the procedure and that if no interstate bus driver is available and on site at the time of the procedure, the procedure will be cancelled. For any anticoagulants, the patient was advised on whether to continue or hold for this procedure. The patient expressed understanding and gave verbal consent to proceed. Medication(s): continue Cymbalta and Neurontin Additional Studies: none Referrals: No additional considerations at present Functional [place]: [facility] (PT and OT) Depending on response to the above plan, consider: TBD -Follow-up: 2 months Attribution: In addition to reviewing the information noted above, some elements copied from my most recent clinical note(s), including the physical exam (completed in entirety today), and the impression and plan sections, have been updated where appropriate. All reflect current medical decision making from today's date. Tere Painter MD, [facility] documented in this encounterSt. [facility] Miscellaneous Notes* Telephone Encounter - Mena Ramirez RN - 06/14/2022 2:33 PM EDT Spoke with pt. She wants to close her referral at this time. She spoke with Dr. Sarabia (referring) and he said that she could hold off and he will refer if needed down the road when she is worsening.Mena Ramirez RN documented in this encounterSt. Rita'[facility]07-28-2022 Miscellaneous Notes* Telephone Encounter - Pradeep Mehta - 06/14/2022 11:54 AM EDT Patient called in returning phone call from Mena. Coordinator was out the office on day of call.Patient advise she will call back next day to speak with mena. documented in this encounterSt. [facility]07-28-2022 Miscellaneous Notes* Telephone Encounter - Mena Ramirez RN - 06/14/2022 11:26 AM EDT I received notification from our office that this pt called in on Saturday06/12/22 but I was out of the office. I tried to call her back today, left her a voicemail to call me by tomorrow as I have been unable to reach her to further discuss scheduling. Letter was sent to pt previously. Mena Ramirez RN documented in this encounterSt. [facility]07-21-2022 Miscellaneous Notes* Telephone Encounter - Mena Ramirez RN - 06/07/2022 4:15 PM EDT follow up phone call to pt to discuss scheduling transplant evaluation. Left another message for ptto call me back to discuss. Pt was to let me know interest and I have now called twice with no response. Will send letter to call me by 06/15/22 and if no response we will close her referral. Mena Ramirez RN documented in this encounterSt. [facility]07-13-2022 Miscellaneous Notes* Telephone Encounter - Mena Ramirez RN - 05/30/2022 10:48 AM EDT Call to pt to f/u on scheduling appts for evaluation. Left vm for her to return call to the office.Mena Ramirez RN [facility] encounter[facility]* Diagnosis Alcoholic peripheral neuropathy (HCC)- Primary Alcoholic polyneuropathy [facility] Diagnosis Rib contusion, left, initial encounter- Primary Recurrent UTI (urinary tract infection) Urinary tract infection, site not specified [facility]* Diagnosis Contusion of rib on left side, subsequent encounter- Primary Injury of spleen, initial encounter [facility]* Diagnosis Dysuria- Primary Acute cystitis with hematuria Acute cystitis [facility]* Diagnosis Alcoholic peripheral neuropathy (HCC)- Primary Alcoholic polyneuropathy [facility]* Diagnosis Dysuria- Primary Acute cystitis without hematuria Acute cystitis Pruritus Unspecified pruritic disorder [facility]* Diagnosis Anxiety with depression- Primary Bronchitis Bronchitis, not specified as acute or chronic Neuropathy Mononeuritis of unspecified site [facility]* Diagnosis Leg weakness, bilateral- Primary Other musculoskeletal symptoms referable to limbs Peripheral nerve disease Mononeuritis of unspecified site [facility]* Diagnosis Insomnia, unspecified type- Primary Anxiety Anxiety state, unspecified Hallucinations Peripheral nerve disease Mononeuritis of unspecified site Screening for colon cancer Special screening for malignant neoplasms, colon documented [facility]* Diagnosis Pain of right foot- Primary Pain in limb Sprain of right foot, initial encounter [facility]* Diagnosis Alcoholic peripheral neuropathy (HCC)- Primary Alcoholic polyneuropathy Pain in soft tissues of limb Pain in limb [facility]* Diagnosis Peripheral nerve disease Mononeuritis of unspecified site documented [facility]* Diagnosis URI, acute- Primary Acute upper respiratory infections of unspecified site Foot pain, right Pain in limb [facility]* Diagnosis Foot pain, right Pain in limb [facility]* Diagnosis URI, acute- Primary Acute upper respiratory infections of unspecified site documented in this encounter [facility] for referral (narrative)* Diagnostic Procedure Only (Routine) - Closed Specialty Diagnoses / Procedures Referred By Stacie pena Referred To Contact XR IMAGING Diagnoses Pain of right foot Procedures XR FOOT GENERAL 3V AP/LAT/OBL RIGHT RADEX FOOT COMPLETE MINIMUM 3 VIE[address] Cr Grove MD [address] [place] [address] [place] [address] Referral ID Status Reason Start Date Expiration Date V isits Requested Visits Authorized [id number] Closed Auto-Generate d Referral 09/08/2023 10/07/2024 1 1 [facility] for referral (narrative)* Diagnostic Procedure Only (Routine) - Pending Review Specialty Diagnoses / Procedures Referred By Controjelio t Referred To Contact XR IMAGING Diagnoses Foot pain, right Procedures XR FOOT GENERAL 3V AP/LAT/OBL RIGHT RADEX FOOT COMPLETE MINIMUM 3 VIEWS Aurelio Reyes MD [address] [facility] [address] [place] [address] [place] [address] Referral ID Status Reason Start Date Expiration Date Visits Requested Visits Authorized [id number] Pending Review Auto-Generat ed Referral 3 12/01/2024 1 1 [facility] for visit Narrative* Diagnostic Procedure Only (Routine) - Pending Review Specialty Diagnoses / Procedures Referred By Contac t Referred To Contact XR IMAGING Diagnoses Foot pain, right Procedures XR FOOT GENERAL 3V AP/LAT/OBL RIGHT RADEX FOOT COMPLETE MINIMUM 3 VIEWS Aurelio Reyes MD [address] [facility] [address] [place] [address] [place] [address] Referral ID Status Reason Start Date Expiration Date Visits Requested Visits Authorized [id number] Pending Review Auto-Generat ed Referral 3 12/01/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 Advance Directive(s) 10/06/2021 9:19 PM Latest Code Status on File Code Status Date Activated Date Inactivated Comments Full Code 10/08/2021 5:20 PM 11/17/2021 4:35 PM Full Code Order Discussed With: Surrogate Decisi on Maker Latest Code Status on File Code Status Date Activated Date Inactivated Comments Full Code 10/08/2021 5:20 PM 11/17/2021 4:35 PM Latest Code Status on File Code Status Date Activated Date Inactivated Comments Full Code 10/08/2021 5:20 PM 11/17/2021 4:35 PM Question Answer Comments Full Code Order Discussed With: Surrogate Decisi on Maker Latest Code Status on File Code Status Date Activated Date Inactivated Comments Full Code 10/08/2021 5:20 PM 11/17/2021 4:35 PM Question Answer Comments Full Code Order Discussed With: Surrogate Decisi on Maker Reason for Referral Specialty Diagnoses / Procedures Referred By Contac t Referred To Contact XR IMAGING Diagnoses Rib contusion, left, initial encounter Procedures XR RIBS/CHEST 3V AP RIB/OBLS/CXR LEFT RADEX RIBS UNI W/POSTEROANT CH MINIMUM 3 VIEWS Ash Cortez PA-C [address] [place] [address] Xr Imaging Referral ID Status Reason Start Date Expiration Date V isits Requested Visits Authorized [id number] Closed Auto-Generate d Referral 12/31/2022 11/17/2023 1 1 Specialty Diagnoses / Procedures Referred By Contac t Referred To Contact PHYSICAL THERAPY Diagnoses Leg weakness, bilateral Peripheral nerve disease Procedures CONSULT TO PHYSICAL THERAPY PHYSICAL THERAPY EVALUATION HIGH COMPLEX 45 MINS Aure Carlton APRN.TOBACCO FLAVORER [address] [facility] [address] [place] [address] Bev Rodriguez M, PT, DPT Referral ID Status Reason Start Date Expiration Date Visits Requested Visits Authorized [id number] Pending Review Auto-Generat ed Referral 08/16/2023 08/15/2024 1 1 Specialty Diagnoses / Procedures Referred By Contac t Referred To Contact [facility] Diagnoses Alcoholic peripheral neuropathy (HCC) Pain in soft tissues of limb Procedures [facility] Марина Shultz, VERNA.TOBACCO FLAVORER [address] [place] [address] Referral ID Status Reason Start Date Expiration Date Visits Requested Visits Authorized [id number] Ref Not Required PCP Requested Referral 09/25/2023 09/24/2024 1 1 Specialty Diagnoses / Procedures Referred By Contac t Referred To Contact Diagnoses Alcoholic peripheral neuropathy (HCC) Pain in soft tissues of limb Procedures CONSULT FOR ACUPUNCTURE OFFICE/OUTPATIENT [facility] MDM 60-74 MINUTES Марина Shultz, VERNA.TOBACCO FLAVORER [address] [place] [address] Referral ID Status Reason Start Date Expiration Date Visits Requested Visits Authorized [id number] Pending Review PCP Requested Referral 09/25/2023 09/24/2024 1 1 Additional Source Comments INFORMATION SOURCE (unrecogn ized section and content) DATE CREATED AUTHOR AUTHOR'S ORGANIZ ATION 12/27/2021 [facility] DATE CREATED AUTHOR AUTHOR'S ORGANIZ ATION 04/01/2022 [facility] [place] DATE CREATED AUTHOR AUTHOR'S ORGANIZ ATION 06/18/2023 [facility] ([place]) DATE CREATED AUTHOR AUTHOR'S ORGANIZ ATION 09/12/2023 [facility] DATE CREATED AUTHOR AUTHOR'S ORGANIZ ATION 11/06/2023 [facility] DATE CREATED AUTHOR AUTHOR'S ORGANIZ ATION 11/09/2023 [facility] DATE CREATED AUTHOR AUTHOR'S ORGANIZ ATION 11/23/2023 [facility] Source Comments (unrecognize d section and content) In the event this informatio n is protected by the Federal Confidentiality of Alcohol and Drug Abuse Patient Records regulations: The Federal rules restrict any use of the information to criminally investigate or prosecute any alcohol or drug abuse patient.[facility] HospitalIn the event this information is protected by the Federal Confidentiality of Alcohol and Drug Abuse Patient Records regulations: The Federal rules restrict any use of the information to criminally investigate or prosecute any alcohol or drug abuse patient.[facility] HospitalIn the event this information is protected by the Federal Confidentiality of Alcohol and Drug Abuse Patient Records regulations: The Federal rules restrict any use of the information to criminally investigate or prosecute any alcohol or drug abuse patient.[facility] HospitalIn the event this information is protected by the Federal Confidentiality of Alcohol and Drug Abuse Patient Records regulations: The Federal rules restrict any use of the information to criminally investigate or prosecute any alcohol or drug abuse patient.[facility] HospitalIn the event this information is protected by the Federal Confidentiality of Alcohol and Drug Abuse Patient Records regulations: The Federal rules restrict any use of the information to criminally investigate or prosecute any alcohol or drug abuse patient.[facility] HospitalIn the event this information is protected by the Federal Confidentiality of Alcohol and Drug Abuse Patient Records regulations: The Federal rules restrict any use of the information to criminally investigate or prosecute any alcohol or drug abuse patient.[facility] HospitalIn the event this information is protected by the Federal Confidentiality of Alcohol and Drug Abuse Patient Records regulations: The Federal rules restrict any use of the information to criminally investigate or prosecute any alcohol or drug abuse patient.[facility] HospitalIn the event this information is protected by the Federal Confidentiality of Alcohol and Drug Abuse Patient Records regulations: The Federal rules restrict any use of the information to criminally investigate or prosecute any alcohol or drug abuse patient.[facility] HospitalIn the event this information is protected by the Federal Confidentiality of Alcohol and Drug Abuse Patient Records regulations: The Federal rules restrict any use of the information to criminally investigate or prosecute any alcohol or drug abuse patient.[facility] HospitalIn the event this information is protected by the Federal Confidentiality of Alcohol and Drug Abuse Patient Records regulations: The Federal rules restrict any use of the information to criminally investigate or prosecute any alcohol or drug abuse patient.[facility] HospitalIn the event this information is protected by the Federal Confidentiality of Alcohol and Drug Abuse Patient Records regulations: The Federal rules restrict any use of the information to criminally investigate or prosecute any alcohol or drug abuse patient.[facility] HospitalIn the event this information is protected by the Federal Confidentiality of Alcohol and Drug Abuse Patient Records regulations: The Federal rules restrict any use of the information to criminally investigate or prosecute any alcohol or drug abuse patient.[facility] HospitalIn the event this information is protected by the Federal Confidentiality of Alcohol and Drug Abuse Patient Records regulations: The Federal rules restrict any use of the information to criminally investigate or prosecute any alcohol or drug abuse patient.[facility] HospitalIn the event this information is protected by the Federal Confidentiality of Alcohol and Drug Abuse Patient Records regulations: The Federal rules restrict any use of the information to criminally investigate or prosecute any alcohol or drug abuse patient.[facility] HospitalIn the event this information is protected by the Federal Confidentiality of Alcohol and Drug Abuse Patient Records regulations: The Federal rules restrict any use of the information to criminally investigate or prosecute any alcohol or drug abuse patient.[facility] HospitalIn the event this information is protected by the Federal Confidentiality of Alcohol and Drug Abuse Patient Records regulations: The Federal rules restrict any use of the information to criminally investigate or prosecute any alcohol or drug abuse patient.[facility] HospitalIn the event this information is protected by the Federal Confidentiality of Alcohol and Drug Abuse Patient Records regulations: The Federal rules restrict any use of the information to criminally investigate or prosecute any alcohol or drug abuse patient.[facility] HospitalIn the event this information is protected by the Federal Confidentiality of Alcohol and Drug Abuse Patient Records regulations: The Federal rules restrict any use of the information to criminally investigate or prosecute any alcohol or drug abuse patient.[facility] HospitalIn the event this information is protected by the Federal Confidentiality of Alcohol and Drug Abuse Patient Records regulations: The Federal rules restrict any use of the information to criminally investigate or prosecute any alcohol or drug abuse patient.[facility] HospitalIn the event this information is protected by the Federal Confidentiality of Alcohol and Drug Abuse Patient Records regulations: The Federal rules restrict any use of the information to criminally investigate or prosecute any alcohol or drug abuse patient.[facility] HospitalIn the event this information is protected by the Federal Confidentiality of Alcohol and Drug Abuse Patient Records regulations: The Federal rules restrict any use of the information to criminally investigate or prosecute any alcohol or drug abuse patient.[facility] HospitalIn the event this information is protected by the Federal Confidentiality of Alcohol and Drug Abuse Patient Records regulations: The Federal rules restrict any use of the information to criminally investigate or prosecute any alcohol or drug abuse patient.[facility] HospitalIn the event this information is protected by the Federal Confidentiality of Alcohol and Drug Abuse Patient Records regulations: The Federal rules restrict any use of the information to criminally investigate or prosecute any alcohol or drug abuse patient.[facility] HospitalIn the event this information is protected by the Federal Confidentiality of Alcohol and Drug Abuse Patient Records regulations: The Federal rules restrict any use of the information to criminally investigate or prosecute any alcohol or drug abuse patient.[facility] HospitalIn the event this information is protected by the Federal Confidentiality of Alcohol and Drug Abuse Patient Records regulations: The Federal rules restrict any use of the information to criminally investigate or prosecute any alcohol or drug abuse patient.[facility] HospitalIn the event this information is protected by the Federal Confidentiality of Alcohol and Drug Abuse Patient Records regulations: The Federal rules restrict any use of the information to criminally investigate or prosecute any alcohol or drug abuse patient.[facility] HospitalIn the event this information is protected by the Federal Confidentiality of Alcohol and Drug Abuse Patient Records regulations: The Federal rules restrict any use of the information to criminally investigate or prosecute any alcohol or drug abuse patient.[facility] Reason for Visit (unrecogniz ed section and content) Reason Comments Referral - Liver Txp f/u on scheduling Reason Comments Referral - Liver Txp unable to reach Reason Comments Follow Up Reason Comments Referral - Liver Txp referral closed Reason Comments New Patient Evaluation Evaluate for disa bility Leg Pain bilateral Pain (foot) Bilateral Arm Pain Bilateral Hand Pain Bilateral Specialty Diagnoses / Procedures Referred By Contac t Referred To Contact Pain Management / PAIN MANAGEMENT Diagnoses New patient - evaluation for disablity Procedures NEW PATIENT Self Tere Painter [place] [facility] [place] [address] Referral ID Status Reason Start Date Expiration Date V isits Requested Visits Authorized [id number] Authorized 11/18/2022 11/17/2023 20 20 Reason Comments rib pain Left side rib pain f rom fall this morning, burning with urination possible blood in urine-----4 days Specialty Diagnoses / Procedures Referred By Contac t Referred To Contact Emergency Medicine / URGENT CARE CLINIC Diagnoses Rib contusion, left, initial encounter LT RIB PAIN Procedures OFFICE/OUTPATIENT ESTABLISHED MOD MDM 30-39 MIN URGENT CARE Self Ash Cortez PA-C [address] [place] [address] Referral ID Status Reason Start Date Expiration Date Visits Re quested Visits Authorized [id number] Closed 12/31/2022 11/17/2023 1 1 Reason Comments rib pain Left rib pain -- con gestion in throat Reason Comments UTI CLOUDY URINE, back p ain x 6 days Reason Comments Follow Up Neuropathy Specialty Diagnoses / Procedures Referred By Contac t Referred To Contact Pain Management / PAIN MANAGEMENT Diagnoses Follow-up exam 2 month follow Procedures OFFICE/OUTPATIENT ESTABLISHED MOD MDM 30-39 MIN EST PATIENT Tere Painter MD [address] [facility] [address] [place] [address] Tere Painter MD [address] [place] [address] Referral ID Status Reason Start Date Expiration Date Visits Re quested Visits Authorized [id number] Closed 11/18/2022 11/17/2023 1 1 Reason Comments Body Itching Body itching 4 days Recent med change progesterone per patient UTI Burning with Urinati on1 week Reason Comments Results Reason Comments Nasal Congestion AND CHEST CONGESTION W EAR PAIN AND SOB X10 DAYS Reason Comments Patient Question Refill Request Reason Comments Returning Patient's Call Patient called requesting some medications Reason Comments Follow Up 4 week follow up Reason Comments Pain (foot) Right foot injury hi t while in bath tub after sliding in tub unsure when Reason Comments Foot Pain (Midfoot) Reason Comments future appointments Reason Comments Appointment New patient - Chiro Reason Comments Refill Request tizanidine Reason Comments Insurance Authorization CHIRO 2022 Reason Comments Appointment Reason Comments Pain (foot) Pt stated yesterday she fell and hit her foot Ear Problem C/o ringing in the e ars that's causing her to feel dizzy Reason Comments Upper Respiratory Infection Care Teams (unrecognized sec tion and content) Intellectual Property Paralegal Relationship Specialty Start Date End Date Robert Pearson MD [address] [facility] [address] [place] [address] PCP - General Internal Medicine 05/08/23 Jerod Lewis Jr., DO [address] [facility] [address] [facility] [place] [address] Obstetrics 05/08/23 Intellectual Property Paralegal Relationship Specialty Start Date End Date Aure Carlton, BATCH OPERATOR.TOBACCO FLAVORER [address] [facility] 3 [place] [phone] PCP - General Family Medicine 08/14/23 Jerod Lewis Jr., DO [address] [facility] [address] [facility], [place] [address] Obstetrics 05/08/23 Lisa Jimenez [address] [place] [address] 100 [place] [address] CLERICAL DENTIST ASSISTANT 02/18/23 Leodan Sarabia DO [address] [facility] [address] [place], [place] [address] Gastroenterology 06/12/22 Priyanka Lyons [address] [facility] [address] [place] [address] Urology 08/15/23 Justice Painter DPM [address] [place] [address] Podiatry 08/15/23 Intellectual Property Paralegal Relationship Specialty Start Date End Date Aure Carlton, BATCH OPERATOR.TOBACCO FLAVORER [address] [facility] 3 [place] [phone] PCP - General Family Medicine 08/14/23 Jerod Lewis Jr., DO [address] [facility] [address] [place], [place] [address] Obstetrics 05/08/23 Lisa Jimenez [address] [facility] 100 [place], [place] [address] CLERICAL DENTIST ASSISTANT 02/18/23 Leodan Sarabia DO [address] [facility] [facility] [address] [place], [place] [id number] Gastroenterology 06/12/22 Priyanka Lyons [address] [facility] [address] [place], [place] [address] Urology 08/15/23 Justice Painter DPM [address] [place] [address] Podiatry 08/15/23 Intellectual Property Paralegal Relationship Specialty Start Date End Date Aure Carlton APRN.TOBACCO FLAVORER [address] [facility] [address] [place] [phone] PCP - General Family Medicine 08/14/23 Jerod Lewis Jr., DO [address] [facility] [address] [place], [place] [address] Obstetrics 05/08/23 Lisa Jimenez [address] [facility] [address] [place], [place] [address] CLERICAL DENTIST ASSISTANT 02/18/23 eLodan Sarabia DO [address] [place], [place] [address] Gastroenterology 06/12/22 Priyanka Lyons [address] [place], [place] [address] Urology 08/15/23 Justice Painter DPM [address] [place] [address] Podiatry 08/15/23 Intellectual Property Paralegal Relationship Specialty Start Date End Date Aure Carlton, BATCH OPERATOR.TOBACCO FLAVORER [address] [place] [address] [place] [phone] PCP - General Family Medicine 08/14/23 Jerod Lewis Jr., DO [address] [facility] [address] [place], [place] [address] Obstetrics 05/08/23 Lisa Jimenez [address] [facility] 100 [place], [place] [address] CLERICAL DENTIST ASSISTANT 02/18/23 Leodan Sarabia DO [address] [place], [place] [address] Gastroenterology 06/12/22 Priyanka Lyons [address] [place] [address] Urology 08/15/23 Justice Painter DPM [address] [place] [address] Podiatry 08/15/23 Intellectual Property Paralegal Relationship Specialty Start Date End Date Aure Carlton APRN.TOBACCO FLAVORER [address] [place] [address] [place] [phone] PCP - General Family Medicine 08/14/23 Jerod Lewis Jr., [address] [facility] [address] [place], [place] [address] Obstetrics 05/08/23 Lisa Jimenez [address] [facility] [address] [place], [place] [address] CLERICAL DENTIST ASSISTANT 02/18/23 Leodan Sarabia DO [address] [facility] [address] [place], [place] [address] Gastroenterology 06/12/22 Priyanka Lyons [address] [place] [address] Urology 08/15/23 Justice Painter DPM [address] [place] [address] Podiatry 08/15/23 Intellectual Property Paralegal Relationship Specialty Start Date End Date Aure Carlton APRN.TOBACCO FLAVORER [address] [facility] 3 [place] [phone] PCP - General Family Medicine 08/14/23 Jerod Lewis Jr., DO [address] [facility] 201 [place], [place] [address] Obstetrics 05/08/23 Lisa Jimenez 546 [facility] 100 [place] [address] CLERICAL DENTIST ASSISTANT 02/18/23 Leodan Sarabia DO [address] [facility] [address] [facility] [address] [place] [address] Gastroenterology 06/12/22 Priyanka Lyons [address] [facility] 205 [place] [address] Urology 08/15/23 Justice Painter DPM [address] [place] [phone] Podiatry 08/15/23 Intellectual Property Paralegal Relationship Specialty Start Date End Date Aure Carlton, BATCH OPERATOR.TOBACCO FLAVORER [address] [facility] 3 [place] [phone] PCP - General Family Medicine 08/14/23 Jerod Lewis Jr., DO [address] [facility] 201 [place] [address] Obstetrics 05/08/23 Lisa Jimenez, [address] [place] [address] CLERICAL DENTIST ASSISTANT 02/18/23 Leodan Sarabia DO 1761 [facility] 3[address] [place] [address] Gastroenterology 06/12/22 Priyanka Lyons [address] [facility] 205 [place] [address] Urology 08/15/23 Justice Painter DPM [address] [place] [address] Podiatry 08/15/23 Intellectual Property Paralegal Relationship Specialty Start Date End Date Aure Carlton, VERNA.TOBACCO FLAVORER [address] [place] [facility] [address] [place] [phone] PCP - General Family Medicine 08/14/23 Jerod Lewis Jr., DO 100 [facility] [address] [place] [address] Obstetrics 05/08/23 Lisa Jimenez DO [address] [place] [address] CLERICAL DENTIST ASSISTANT 02/18/23 Leodan Sarabia DO [address] [facility] [address] [place] [address] Gastroenterology 06/12/22 Priyanka Lyons [address] [facility] [address] [place] [address] Urology 08/15/23 Justice Painter DPM [address] [place] [phone] Podiatry 08/15/23 Intellectual Property Paralegal Relationship Specialty Start Date End Date Aure Carlton APRN.TOBACCO FLAVORER [address] [facility] [address] [place] [phone] PCP - General Family Medicine 08/14/23 Jerod Lewis Jr., DO [address] [facility] [address] [place] [address] Obstetrics 05/08/23 Lisa Jimenez DO [address] [place] [address] CLERICAL DENTIST ASSISTANT 02/18/23 Leodan Sarabia DO 1761 [facility] [address] [place] [address] Gastroenterology 06/12/22 Priyanka Lyons [address] [facility] [address] [place] [address] Urology 08/15/23 Justice Painter DPM [address] [place] [phone] Podiatry 08/15/23 Intellectual Property Paralegal Relationship Specialty Start Date End Date Aure Carlton APRN.TOBACCO FLAVORER [address] [facility] 3 [place] [phone] PCP - General Family Medicine 08/14/23 Jerod Lewis Jr., DO 100 [facility] 201 [place] [address] Obstetrics 05/08/23 Lisa Jimenez DO [address] [place] [address] CLERICAL DENTIST ASSISTANT 02/18/23 Leodan Sarabia DO 176 [facility] [address] [place], [place] [address] Gastroenterology 06/12/22 Priyanka Lyons [place] TO [facility] 205 [place], [place] [address] Urology 08/15/23 Justice Painter DPM [address] [place] [phone] Podiatry 08/15/23 Intellectual Property Paralegal Relationship Specialty Start Date End Date Aure Carlton, BATCH OPERATOR.TOBACCO FLAVORER [address] [facility] 3 [place] [phone] PCP - General Family Medicine 08/14/23 Jerod Lewis Jr., DO 100 [facility] 201 [place] [address] Obstetrics 05/08/23 Lisa Jimenez DO [address] [place] [address] Saw Man 02/18/23 Leodan Sarabia DO 1761 [facility] [address] [place], [place] [id number] Gastroenterology 06/12/22 Priyanka Lyons [address] [facility] 205 [place] [address] Urology 08/15/23 Justice Painter DPM [address] [place] [address] Podiatry 08/15/23 FOR RECORDS PERTAINING TO PATIENTS WHO ARE OR HAVE BEEN ENROLLED IN A CHEMICAL DEPENDENCY/SUBSTANCEABUSE PROGRAM, SOME INFORMATION MAY BE OMITTED. This clinical summary was aggregated from multiple sources. Caution should be exercised in using it in the provision of clinical care. This summary normalizes information from multiple sources, and as a consequence, information in this document may materially change the coding, format and clinical context of patient data. In addition, data may be omitted in some cases. CLINICAL DECISIONS SHOULD BE BASED ON THE PRIMARY CLINICAL RECORDS. [employer] [facility]. provides no warranty or guarantee of the accuracy or completeness of information in this document.
[2023-11-26] MEDS: oxyCODONE 5 MG Tablet PO (19:21)
== END 2023-11-26 19:44 | disposition home or self-care (01) ==
PROVIDERS: Emergency Provider Emergency Medicine; PCP Nurse Practitioner Family; Visit Provider Emergency Medicine
DX: G62.9 Polyneuropathy, unspecified (principal); G89.29 Other chronic pain; F10.11 Alcohol abuse, in remission; Z79.899 Other long term (current) drug therapy
CPT/HCPCS: 99282

== ENCOUNTER 2024-07-08 11:50 | Emergency (ER) | payer OTHER, SELFPAY ==
[2024-07-08 11:53] VITALS: BP 110/77; PULSE 77; RESP 18; TEMP 36.1; O2SAT 100; BMI 29.1
[2024-07-08 12:27] LABS: Mucous, Urine 0 SEEN /hpf (<or=2+); Red Blood Cells-Urine 0 SEEN /hpf (0-5); White Blood Cells 0 SEEN /hpf (0-5)
[2024-07-08 12:29] LABS: Color, Urine Yellow (Yellow); Glucose, Dipstick Normal (Normal); Ketone-Dipstick Negative (Negative); Leukocyte Esterase-Dipstick Negative /ul (Negative); Nitrite-Dipstick Negative (Negative); Occult Blood-Urine Negative /ul (Negative); Protein-Dipstick 15 mg/dl (Negative); Urine Bilirubin Dipstick Negative (Negative); Urine Clarity Sl. Cloudy (Clear); Urine Urobilinogen Normal (Normal)
--- NOTE | 2024-07-08 12:40 | CT_ITS ---
EXAM: CT ABDOMEN AND PELVIS WITHOUT INTRAVENOUS CONTRAST CLINICAL INDICATION: Suprapubic pain. Rule out kidney stone. TECHNIQUE: Helically acquired images were obtained of the abdomen and pelvis without intravenous contrast. This CT exam was performed using one or more of the following dose reduction techniques: automated exposure control, adjustment of the mA and/or kV according to patient size, and/or use of iterative reconstruction technique. RADIATION DOSE: CTDIvol = 15.43 mGy, DLP = 851.74 mGy-cm COMPARISON: No relevant prior studies available. FINDINGS: LOWER THORAX: Curvilinear scarring and/or subsegmental atelectases in the posterior lung bases. Trace anterior and posterior pericardial effusion. Normal cardiac size. ABDOMEN: LIVER: Hepatomegaly measuring 22.9 cm long. GALLBLADDER AND BILE DUCTS: Hyperdense fluid/fluid level inside the nondilated gallbladder fossa may represent sludge and/or tiny gallstones. No pericholecystic fluid and no gallbladder wall thickening. No intrahepatic or extrahepatic periductal dilatation. PANCREAS: Unremarkable. No focal cystic mass. SPLEEN: Splenomegaly measuring 22 cm long. ADRENALS: Unremarkable. No nodules. KIDNEYS AND URETERS: Unremarkable. Normal renal size and position. No stones or hydronephrosis in both kidneys. STOMACH AND BOWEL: Few scattered diverticula throughout the colon without diverticulitis. No stomach or bowel distention. PELVIS: APPENDIX: The appendix is not visualized but there are no secondary signs of acute appendicitis. BLADDER: Unremarkable. Normal urinary bladder without suspicious stones or mass. REPRODUCTIVE: Unremarkable as visualized. No suspicious abnormality of the anteverted uterus. ABDOMEN and PELVIS: INTRAPERITONEAL SPACE: Unremarkable. No ascites or other fluid collection. No free air. RETROPERITONEAL SPACE: Mild thickening of the anterior Gerota''s fascia, left greater than right. BONES/JOINTS: Unremarkable. No suspicious lytic or blastic abnormality. SOFT TISSUES: Unremarkable. No discrete abdominal or pelvic wall hernia. VASCULATURE: Unremarkable. Abdominal aorta is non-dilated. LYMPH NODES: Unremarkable. No enlarged lymph nodes. CT/Abdomen/Pelvis without Cont IMPRESSION: 1. No CT evidence of stones in the kidneys, ureters and urinary bladder and no hydronephrosis. 2. Asymmetric thickening of the anterior Gerota''s fascia, left greater than right. Etiology is unknown since there is no evidence of pancreatitis or acute abnormality in the retroperitoneum. 3. Hyperdense fluid/fluid level inside the nondilated gallbladder fossa may represent sludge and/or layering of tiny gallstones. 4. Hepatosplenomegaly. 5. Trace anterior and posterior pericardial fluid. Electronically Signed: Marco Guerra MD at 14:03 EDT ,
[2024-07-08 12:44] VITALS: BP 118/72; BP 118/77; PULSE 72; PULSE 75; RESP 16; TEMP 36.8; O2SAT 99
[2024-07-08 12:46] LABS: Bacteria 1+ /hpf (None Seen); Squamous Epithelial Cells - UA 0-5 SEEN /hpf (5-10)
--- NOTE | 2024-07-08 12:48 | EX.ED.DYSGE1 ---
HPI History of Present Illness Chief Complaint: Complaint Informant: patient Narrative Narrative: Presents for evaluation intermittent pain in suprapubic region for the last 2 days sharp pains that would drop her over. Pain in the area when she urinates. She states since 4 days ago sore throat cough symptoms with subjective fevers. Sinus problems her for taste is different. She went to urgent care today diagnosed with COVID. Reported in 2020 had COVID along with UTI and went septic. 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 Denies any abdominal surgeries. Denies history of kidney stones. She reported urine dipped at the [facility] negative. However if she empirically prescribed Bactrim she has not started this. Denies back pain. Denies dyspnea. She comes here for evaluation to make sure things are okay. Prior similar symptoms: [facility] Medical History Rash History of ulceration Chronic pain Non-smoker Neuropathy Wears glasses Post-menopausal Anxiety Alcohol use Anemia Migraine headache Syncope Gastric reflux Non-smoker History of pain when walking Leg cramps History of edema Cardiology follow-up encounter History of Clostridium difficile infection Splenomegaly Abnormal liver function test Cirrhosis of liver Wernickes encephalopathy Alcoholic hepatitis Home Medications ?Medication ?Instructions ?Recorded ?Last Taken ?Type melatonin 10 mg tablet 10 mg PO QHS 03/05/22 Unknown History cholecalciferol (vitamin D3) 125 125 mcg PO DAILY 04/04/22 Unknown History mcg (5,000 unit) tablet (Vitamin D3) folic acid 1 mg tablet 1 mg PO DAILY 04/04/22 Unknown History multivitamin 1 cap PO DAILY 04/04/22 Unknown History thiamine HCl (vitamin B1) 100 mg 100 mg PO DAILY 04/04/22 Unknown History tablet (Vitamin B-1) trazodone 50 mg tablet 25 mg PO MOTUWETHFRSA SLEEP 04/04/22 Unknown History nadolol 20 mg tablet 20 mg PO DAILY #30 tabs 03/11/23 Unknown Rx pantoprazole 40 mg tablet,delayed 40 mg PO DAILY #90 tabs 03/11/23 Unknown Rx release ginkgo biloba 60 mg capsule 60 mg PO DAILY 05/08/23 Unknown History glucosamine 500 1 cap PO DAILY 05/08/23 Unknown History pw-bcwnhbhcy-trtakodc comp 400 mg-D3 667 unit-C-Mn cap (Zunsixaopev-Dafygnjgavy-Z5(C-manganese)) magnesium 250 mg tablet 250 mg PO DAILY 05/08/23 Unknown History milk thistle 175 mg capsule 175 mg PO DAILY 05/08/23 Unknown History progesterone micronized 100 mg 500 mg PO QHS 05/08/23 Unknown History capsule tizanidine 4 mg capsule 4 mg PO Q8H PRN Pain 05/08/23 Unknown History gabapentin 300 mg capsule 300 mg PO TID #90 caps 06/07/23 Unknown Rx famotidine 40 mg tablet 40 mg PO QHS #90 tabs 06/11/23 Unknown Rx duloxetine 60 mg capsule,delayed 60 mg PO BID 07/07/23 Unknown History release lactulose 10 gram/15 mL (15 mL) 15 ml PO TID PRN ammonia 07/07/23 Unknown History oral solution lidocaine 5 % topical ointment 1 applic topical TID PRN pain #50 07/07/23 Unknown Rx grams rifaximin 550 mg tablet (Xifaxan) 550 mg PO BID 30 days #60 tabs 07/15/23 Unknown Rx oxycodone 5 mg tablet 5 mg PO Q6H PRN pain 1 day #4 tabs 11/26/23 Unknown Rx Allergy/AdvReac Type Severity Reaction Status Date / Time acetaminophen AdvReac Intermediate gi upset Verified 07/08/24 11:52 ibuprofen AdvReac Intermediate gi upset Verified 07/08/24 11:52 Family History Mother Dementia Father Diabetes Surgical History History of esophagogastroduodenoscopy (EGD) History of liver biopsy History of tonsillectomy and adenoidectomy Social History household members: spouse Smoking Status: Never smoker alcohol intake: former year quit: 2020 substance use type: does not use ROS ROS ED Constitutional Constitutional ED: Reports fever(s); Denies chills or sweats Eyes Eyes: Denies change in vision ENT ENT ED: Denies dysphagia or sore throat Cardiovascular Cardiovascular: Denies chest pain, leg edema, palpitations or racing heartbeat Respiratory/Chest Respiratory/Chest: Reports cough; Denies dyspnea or dyspnea on exertion Gastrointestinal Gastrointestinal: Reports abdominal pain; Denies diarrhea, nausea or vomiting Genitourinary Genitourinary ED: Denies dysuria, hematuria or urinary frequency Musculoskeletal Musculoskeletal: Denies back pain, extremity pain or neck pain Integumentary Denies rash or wounds Neurologic Neurologic: Denies headache(s), paresthesias or weakness EXAM Physical Exam Const Vital Signs: 07/08/24 11:53 07/08/24 12:44 07/08/24 12:44 Temperature 96.9 F L 98.2 F Temperature Source Temporal Oral Pulse Rate 77 72 75 Respiratory Rate 18 16 16 Blood Pressure 110/77 118/77 118/72 Blood Pressure Mean 88 90 87 Pulse Ox 100 99 99 Oxygen Delivery Method Room Air Room Air Room Air 07/08/24 14:44 07/08/24 14:59 Temperature 97.9 F Temperature Source Pulse Rate 57 L 60 Respiratory Rate 16 17 Blood Pressure 102/73 102/73 Blood Pressure Mean 82 82 Pulse Ox 98 97 Oxygen Delivery Method Room Air Positive well nourished and well developed General Appearance ED: well developed and NAD HEENT Reports moist mucous membranes normocephalic and atraumatic Eyes EOMs intact bilaterally and conjunctivae normal General Eye ED: Yes normal appearance of both eyes Neck no lymphadenopathy and supple General: Negative for tenderness Chest Wall Chest: Negative for tenderness Resp normal respiratory effort and normal air movement Effort and Inspection: symmetric chest movement; Negative for respiratory distress Cardio regular rate, regular rhythm and no murmurs Peripheral Pulses: pulses 2+ throughout GI normal to inspection, nondistended, normoactive bowel sounds GI Narrative: Suprapubic tenderness no guarding or rebound. Palpation: Negative for guarding or rebound tenderness present Back/Spine no CVA tenderness and no thoracic nor lumbar tenderness Extremity normal to inspection General Extremety ED: Negative for edema or tenderness General Extremity: Negative for edema Neuro oriented x3 and no sensory deficits noted Sensorium / Orientation: awake and alert Skin no rashes or lesions noted and no wounds MDM MDM MDM Narrative Medical decision making narrative: Interventions / MDM: Differential diagnosis: COVID-19 infection, abdominal pain, history of cirrhosis Diagnosis considered but do not suspect: Pneumonia however x-ray negative. Kidney stones, however image study negative. My EKG interpretation: N/A Imaging independently reviewed and interpreted by myself: 2 view chest x-ray: No acute process. CT abdomen pelvis without contrast: No acute process, gallbladder sludge suspected along with noted thickening around Gerota's fascia. No inflammatory changes noted. This is read by radiology. External documents reviewed: N/A Test considered but not ordered:N/A ED course: Patient nontoxic vital stable. Sudden intermittent pain lower abdomen. COVID-19 infection. I did send for urine returned with no signs of infection. Renal stone protocol with CT scan along with chest x-ray with her COVID diagnosis ordered. Chest x-ray negative CT scan with no acute findings labs were stable for the patient. Noted thrombocytopenia 44 stable from previous labs hemoglobin stable from previous labs of 10.5 also. Reassured with findings. She will monitor for worsening symptoms return precautions. All questions were answered. Re-evaluation: stable Disposition discussed with patient/family/significant other: Patient Case discussed with consulting clinician: N/A This note was generated with [employer] dictation software. It may contain incorrect words, spelling, and punctuation that were not noted in checking the note before signing. Lab Data Attestation: I reviewed the patient's lab results. Labs: Laboratory Results - last 24 hr 07/08/24 07/08/24 12:22 12:50 WBC 4.0 L RBC 3.85 L Hgb 10.5 L Hct 33.9 L MCV 88.1 MCH 27.3 MCHC 31.0 L RDW Std Deviation 49.9 H RDW Coeff of Pepito 15.6 H Plt Count 44 L* Immature Gran % (Auto) 0.500 Neut % (Auto) 62.7 Lymph % (Auto) 22.7 [place] % (Auto) 12.3 H Eos % (Auto) 1.5 Baso % (Auto) 0.3 Absolute Neuts (auto) 2.5 Absolute Lymphs (auto) 0.90 Nucleated RBC % 0 Diff Path Review May foll Platelet Estimate MOD DEC Plt Morphology Comment LARGE Sodium 133 L Potassium 3.9 Chloride 104 Carbon Dioxide 23.0 Anion Gap 6 BUN 13 Creatinine 0.93 Estim Creat Clear Calc 82.49 Est GFR (MDRD) Af Amer 81 Est GFR (MDRD) Non-Af 67 BUN/Creatinine Ratio 14.0 Glucose 125 H Calcium 8.5 Urine Color Yellow Urine Clarity Sl. Cloudy Urine pH 6.0 Ur Specific Hatley 1.010 Urine Protein 15 H Urine Glucose (UA) Normal Urine Ketones Negative Urine Occult Blood Negative Urine Nitrite Negative Urine Bilirubin Negative Urine Urobilinogen Normal Ur Leukocyte Esterase Negative Urine RBC 0 SEEN Urine WBC 0 SEEN Ur Squamous Epith Cells 0-5 SEEN Urine Bacteria 1+ Urine Mucus 0 SEEN Radiography Diagnostic Testing: Clinical Impression(s) from Imaging Studies Abdomen/Pelvis CT 07/08/24 12:40 IMPRESSION: 1. No CT evidence of stones in the kidneys, ureters and urinary bladder and no hydronephrosis. 2. Asymmetric thickening of the anterior Gerota''s fascia, left greater than right. Etiology is unknown since there is no evidence of pancreatitis or acute abnormality in the retroperitoneum. 3. Hyperdense fluid/fluid level inside the nondilated gallbladder fossa may represent sludge and/or layering of tiny gallstones. 4. Hepatosplenomegaly. 5. Trace anterior and posterior pericardial fluid. Electronically Signed: Marco Guerra MD at 14:03 EDT , Chest X-Ray 07/08/24 13:15 IMPRESSION: No radiographic evidence of acute cardiopulmonary disease and no significant change. Electronically Signed: Marco Guerra MD at 13:40 EDT , Discharge Plan Triage Chief Complaint: Complaint ED Provider: Lamine Guerra Dx/Rx/DC Orders Clinical Impression: COVID-19 virus infection, Cirrhosis of liver, Abdominal pain, Thrombocytopenia, Anemia Instructions: Abdominal Pain, Coronavirus Disease 2019 (COVID-19): Caring for Yourself or Others Prescriptions: No Action gabapentin 300 mg capsule 300 mg PO TID Qty: 90 3RF melatonin 10 mg Tablet 10 mg PO QHS folic acid 1 mg Tablet 1 mg PO DAILY multivitamin Capsule 1 cap PO DAILY trazodone 50 mg Tablet 25 mg PO MOTUWETHFRSA Rx Instructions: DONT TAKE ON SATURDAY thiamine HCl (vitamin B1) [Vitamin B-1] 100 mg Tablet 100 mg PO DAILY cholecalciferol (vitamin D3) [Vitamin D3] 125 mcg (5,000 unit) Tablet 125 mcg PO DAILY magnesium 250 mg Tablet 250 mg PO DAILY ginkgo biloba 60 mg Capsule 60 mg PO DAILY Rx Instructions: give with meal/snack progesterone micronized 100 mg Capsule 500 mg PO QHS tizanidine 4 mg Capsule 4 mg PO Q8H PRN (Reason: Pain) milk thistle 175 mg Capsule 175 mg PO DAILY Rx Instructions: give with meal/snack Zcubtsoqjgd-Tougey-B7 (C-hung) 500-400-667 mg-mg-unit Capsule 1 cap PO DAILY duloxetine 60 mg capsule,delayed release(DR/EC) 60 mg PO BID lactulose 10 gram/15 mL (15 mL) solution 15 ml PO TID PRN (Reason: ammonia) lidocaine 5 % ointment 1 applic topical TID PRN (Reason: pain) Qty: 50 0RF oxycodone 5 mg tablet 5 mg PO Q6H PRN (Reason: pain) 1 Days Qty: 4 0RF pantoprazole 40 mg tablet,delayed release (DR/EC) 40 mg PO DAILY Qty: 90 2RF nadolol 20 mg tablet 20 mg PO DAILY Qty: 30 11RF famotidine 40 mg tablet 40 mg PO QHS Qty: 90 5RF Xifaxan 550 mg tablet 550 mg PO BID 30 Days Qty: 60 11RF Primary Care Provider: NEGRITA CARLTON Referrals: NEGRITA CARLTON NP-C [Primary Care Provider] - 1 Week Activity Restrictions/Additional Instructions: You are diagnosed with COVID at urgent care. Your chest x-ray negative. Your urine today negative for infection. Your abdominal CT negative for infection or kidney stones. Incidental likely gallbladder sludge. Mild thickening of Gerota's fascia and retroperitoneal space. There is no inflammation of the pancreas. Monitor symptoms. I will hold off on Bactrim by urgent care at this time. Monitor for any worsening respiratory symptoms to return to the ED. Print Language: Hungarian Disposition Disposition: Home, Self Care Discharge Date/Time: 07/08/24 15:07
[2024-07-08 12:58] LABS: Absolute Neutrophil Count 2.5 X10^3/uL (2.0-7.7); Basophil# 0.01 X10^3/uL; Basophil% 0.3 % (0-1); Eosinophil# 0.06 X10^3/uL; Eosinophils% 1.5 % (0-5); Hematocrit 33.9 % (37-47); Hemoglobin 10.5 g/dL (12.0-15.0); Lymphocyte % 22.7 % (19-41); Mean Corpuscular Hgb 27.3 pg (27.0-32.0); Mean Corpuscular Volume 88.1 fL (81-99); Monocyte# 0.49 X10^3/uL; Monocyte% 12.3 % (0-10); NRBC Flagged by Analyzer 0 % (0-5); Neutrophil # 2.49 X10^3/uL (2.7-7.7); Neutrophil % 62.7 % (47-70); POSITIVE COUNT YES; RBC Distribution Width CV 15.6 % (11.6-14.6); RBC Distribution Width SD 49.9 fl (35.1-43.9); Red Blood Count 3.85 M/mm3 (4.2-5.4)
[2024-07-08 13:14] LABS: Anion Gap 6 (5-15); BUN 13 mg/dL (7-18); Calcium,Total 8.5 mg/dL (8.5-10.1); Chloride 104 mmol/L (98-107); Creatinine, Serum 0.93 mg/dL (0.55-1.02); EST Glomerular Filtration Rate 67 mL/min (>60); Est Glom Filt Rate - Afr Amer 81 mL/min (>60); Estimated Creatinine Clearance 82.49 ml/min; Glucose 125 mg/dL (74-106); Potassium 3.9 mmol/L (3.5-5.1); Sodium Level 133 mmol/L (136-145)
--- NOTE | 2024-07-08 13:15 | RAD_ITS ---
EXAM: XR CHEST, 2 VIEWS CLINICAL INDICATION: cough -- covid + TECHNIQUE: Frontal and lateral views of the chest. COMPARISON: April 12, 2022. FINDINGS: LUNGS AND PLEURAL SPACES: Unremarkable. No consolidation or edema. No pneumothorax. No effusion. HEART: Unremarkable. Cardiac silhouette not enlarged. MEDIASTINUM: Central airways and mediastinal contour are unremarkable. BONES/JOINTS: Unremarkable. No acute fracture. SOFT TISSUES: Unremarkable. RAD/Chest PA and Lateral IMPRESSION: No radiographic evidence of acute cardiopulmonary disease and no significant change. Electronically Signed: Marco Guerra MD at 13:40 EDT ,
[2024-07-08 13:51] LABS: Differential Indicated SCAN CRITERIA MET; Platelet Count 44 K/mm3 (150-450)
[2024-07-08 14:33] LABS: Platelet Morphology LARGE
[2024-07-08 14:34] LABS: Platelet Estimate MOD DEC (ADEQ)
[2024-07-08 14:44] VITALS: BP 102/73; PULSE 57; RESP 16; O2SAT 98
[2024-07-08 14:59] VITALS: BP 102/73; PULSE 60; RESP 17; TEMP 36.6; O2SAT 97
[2024-07-09 13:07] LABS: Pathologist Review Reviewed
== END 2024-07-08 15:07 | disposition home or self-care (01) ==
PROVIDERS: Emergency Provider Emergency Medicine; PCP Nurse Practitioner Family; Visit Provider Emergency Medicine
DX: U07.1 COVID-19 (principal); K70.30 Alcoholic cirrhosis of liver without ascites; D69.6 Thrombocytopenia, unspecified; D64.9 Anemia, unspecified
CPT/HCPCS: 71046; 74176; 80048; 81001; 85025; 87077; 87086; 87088; 87186; 99283; A4216

== ENCOUNTER 2024-07-10 20:18 | Emergency (ER) | payer OTHER, SELFPAY ==
[2024-07-10 20:18] VITALS: BP 135/96; PULSE 84; RESP 16; TEMP 37.3; O2SAT 98; BMI 27.9
--- NOTE | 2024-07-10 21:18 | US_ITS ---
INDICATION: vag bleeding EXAMINATION: Ultrasound US Pelvis Non-OB Complete TECHNIQUE: Transvaginal pelvic ultrasound was performed. Grayscale, spectral waveform, and color flow Doppler evaluation of the adnexa. COMPARISON: 10/28/2023 FINDINGS: UTERUS: Anteverted. The uterus measures 8.3 x 4.2 x 4.0 cm. Small fibroids present, largest 11 mm. The endometrial stripe measures 2 mm in AP diameter which is within normal limits. RIGHT OVARY: Not visualized due to overlying bowel gas. LEFT OVARY: Not visualized due to overlying bowel gas. FREE FLUID: None. US/Transvaginal Non- IMPRESSION: Fibroid uterus. No acute findings. Electronically Signed: Stephen Quinonez MD at 23:25 EDT ,
[2024-07-10] MEDS: 0.9% Normal Saline (1000mL) 1,000 ML 999 ML IV (21:56)
[2024-07-10 21:58] LABS: Absolute Lymphocyte Count 1.35 X10^3/uL (0.83-4.51); Absolute Neutrophil Count 1.9 X10^3/uL (2.0-7.7); Basophil# 0.02 X10^3/uL; Basophil% 0.5 % (0-1); Eosinophil# 0.09 X10^3/uL; Eosinophils% 2.4 % (0-5); Hematocrit 35.9 % (37-47); Hemoglobin 11.3 g/dL (12.0-15.0); Lymphocyte # 1.35 X10^3/ul (0.83-4.51); Lymphocyte % 35.6 % (19-41); Mean Corp Hgb Conc 31.5 g/dL (32-36); Mean Corpuscular Hgb 27.2 pg (27.0-32.0); Mean Corpuscular Volume 86.3 fL (81-99); Mean Platelet Vol. 12.8 fl (6.2-12.0); Monocyte# 0.44 X10^3/uL; Monocyte% 11.6 % (0-10); NRBC Flagged by Analyzer 0 % (0-5); Neutrophil # 1.88 X10^3/uL (2.7-7.7); Neutrophil % 49.6 % (47-70); POSITIVE COUNT YES; Platelet Count 53 K/mm3 (150-450); RBC Distribution Width CV 15.2 % (11.6-14.6); RBC Distribution Width SD 48.2 fl (35.1-43.9); Red Blood Count 4.16 M/mm3 (4.2-5.4); White Blood Count 3.8 K/mm3 (4.4-11.0)
[2024-07-10 22:18] VITALS: BP 145/79; PULSE 72; RESP 18; O2SAT 99
[2024-07-10 22:19] LABS: ALB/GLOB Ratio 0.8 RATIO (0.9-2.4); AST(SGOT) 29 U/L (15-37); Alanine Aminotransfer ALT/SGPT 22 U/L (13-56); Albumin, Serum 3.6 g/dL (3.2-5.0); Alkaline Phosphatase 63 U/L (45-117); Anion Gap 8 (5-15); BUN 10 mg/dL (7-18); BUN/Creat Ratio 11.5 RATIO (10-20); Calcium,Total 8.8 mg/dL (8.5-10.1); Chloride 106 mmol/L (98-107); Creatinine, Serum 0.87 mg/dL (0.55-1.02); EST Glomerular Filtration Rate 72 mL/min (>60); Est Glom Filt Rate - Afr Amer 88 mL/min (>60); Estimated Creatinine Clearance 89.18 ml/min; Globulin 4.5 g/dL (2.2-4.2); Glucose 95 mg/dL (74-106); Potassium 3.5 mmol/L (3.5-5.1); Protein, Total 8.1 g/dL (6.4-8.2); Sodium Level 138 mmol/L (136-145)
[2024-07-10 23:15] LABS: Color, Urine Yellow (Yellow); Glucose, Dipstick Normal (Normal); Ketone-Dipstick 5 mg/dl (Negative); Leukocyte Esterase-Dipstick 25 /ul (Negative); Nitrite-Dipstick Positive (Negative); Occult Blood-Urine 250 /ul (Negative); Protein-Dipstick 30 mg/dl (Negative); Urine Clarity Cloudy (Clear); Urine Urobilinogen 12 mg/dl (Normal)
[2024-07-10 23:28] LABS: Urine Bilirubin Dipstick 3 mg/dL (Negative)
[2024-07-10 23:30] LABS: Bacteria 1+ /hpf (None Seen); Red Blood Cells-Urine 50-100 SEEN /hpf (0-5); Squamous Epithelial Cells - UA 5-10 SEEN /hpf (5-10); White Blood Cells 0-5 SEEN /hpf (0-5)
[2024-07-10 23:31] LABS: Internal QC Validated? YES +Cl - CLEAR BKGD; Mucous, Urine 1+ /hpf (<or=2+); Pregnancy, Urine Negative Negative
[2024-07-11 00:07] VITALS: BP 131/87; PULSE 73; RESP 14; TEMP 36.6; O2SAT 100
--- NOTE | 2024-07-11 00:08 | ED.VIS.FEGU ---
HPI HPI - Female History of Present Illness Chief Complaint: Vag Bleeding Narrative Narrative: Patient is a 54-year-old female past medical history anxiety, anemia, cirrhosis secondary to previous alcohol abuse, neuropathy who presented to the emergency department chief complaint of vaginal bleeding. Patient states that she woke up this morning noted that she noted that she had vaginal bleeding and states that she has not had her period in several years. She states that she does have a history of fibroids. Patient states that she feels like the bleeding is getting worse prompting her to come here for the evaluation management. States that the past several days she has had lower abdominal cramps and originally she thought she had a urinary tract infection however she states that she was here recently was tested and was negative. [facility] Medical History Rash History of ulceration Chronic pain Non-smoker Neuropathy Wears glasses Post-menopausal Anxiety Alcohol use Anemia Migraine headache Syncope Gastric reflux Non-smoker History of pain when walking Leg cramps History of edema Cardiology follow-up encounter History of Clostridium difficile infection Splenomegaly Abnormal liver function test Cirrhosis of liver Wernickes encephalopathy Alcoholic hepatitis Home Medications ?Medication ?Instructions ?Recorded ?Last Taken ?Type cholecalciferol (vitamin D3) 125 125 mcg PO DAILY 04/04/22 Unknown History mcg (5,000 unit) tablet (Vitamin D3) folic acid 1 mg tablet 1 mg PO DAILY 04/04/22 Unknown History multivitamin 1 cap PO DAILY 04/04/22 Unknown History thiamine HCl (vitamin B1) 100 mg 100 mg PO DAILY 04/04/22 Unknown History tablet (Vitamin B-1) trazodone 50 mg tablet 100 mg PO QHS SLEEP 04/04/22 Unknown History nadolol 20 mg tablet 20 mg PO DAILY #30 tabs 03/11/23 Unknown Rx pantoprazole 40 mg tablet,delayed 40 mg PO DAILY #90 tabs 03/11/23 Unknown Rx release ginkgo biloba 60 mg capsule 60 mg PO DAILY 05/08/23 Unknown History glucosamine 500 1 cap PO DAILY 05/08/23 Unknown History py-zotxvetbv-oxgafqxt comp 400 mg-D3 667 unit-C-Mn cap (Gpqrrknwhht-Cbjpgdfpouw-O8(C-manganese)) magnesium 250 mg tablet 250 mg PO DAILY 05/08/23 Unknown History milk thistle 175 mg capsule 175 mg PO DAILY 05/08/23 Unknown History progesterone micronized 100 mg 500 mg PO QHS 05/08/23 Unknown History capsule famotidine 40 mg tablet 40 mg PO QHS #90 tabs 06/11/23 Unknown Rx duloxetine 60 mg capsule,delayed 60 mg PO BID 07/07/23 Unknown History release lactulose 10 gram/15 mL (15 mL) 15 ml PO TID PRN ammonia 07/07/23 Unknown History oral solution citalopram 20 mg tablet 20 mg PO DAILY 07/10/24 Unknown History estradiol 0.01% (0.1 mg/gram) 1 vaginal 07/10/24 Unknown History vaginal cream gabapentin 300 mg capsule 600 mg PO Q12H 07/10/24 Unknown History hydroxyzine pamoate 25 mg capsule 25 mg PO Q12H PRN PRN anxiety 07/10/24 Unknown History methocarbamol 500 mg tablet 500 mg PO TID 07/10/24 Unknown History vibegron 75 mg tablet (Gemtesa) 75 mg PO DAILY 07/10/24 Unknown History Allergy/AdvReac Type Severity Reaction Status Date / Time acetaminophen AdvReac Intermediate gi upset Verified 07/10/24 20:19 ibuprofen AdvReac Intermediate gi upset Verified 07/10/24 20:19 Family History Mother Dementia Father Diabetes Surgical History History of esophagogastroduodenoscopy (EGD) History of liver biopsy History of tonsillectomy and adenoidectomy Social History household members: spouse Smoking Status: Never smoker alcohol intake: former year quit: 2020 substance use type: does not use ROS ROS ED ROS Narrative Constitutional: Denies any fevers, chills, headaches, lightness, dizziness Eyes: Denies any change in vision double vision blurry vision Cardiovascular: Denies chest pain or palpitations Respiratory: States she has a cough and this secondary to her COVID-19 infection that she is getting over denies any wheezing Abdomen: Denies abdominal pain nausea vomit diarrhea : Complains of vaginal bleeding as noted above denies any pain phonation, hematuria, polyuria Neurological: Denies any numbness, weakness, tingling Musculoskeletal: Denies of back pain Skin: Denies rashes or lesions EXAM Physical Exam Narrative Exam Narrative: General: Patient was lying in bed rest comfortably did not appear to be in acute distress Head: Atraumatic, normocephalic Eyes: PERRL bilaterally, EOMI bilateral, no conjunctival injection noted Neck: Soft and supple, trachea midline Cardiovascular: Regular rate and rhythm no murmurs gallops rubs noted Respiratory: Clear to auscultation bilaterally Abdomen: Soft, nondistended, nontender to palpation, bowel sounds present x 4 Extremities: +5/5 strength noted in the bilateral upper and lower extremities, no pedal edema on exam Neurological: Patient is following commands knew that she was at [facility] there is 2023 Skin: Warm, dry, tact Const Vital Signs: 07/10/24 20:18 07/10/24 22:18 Temperature 99.1 F Temperature Source Temporal Pulse Rate 84 72 Respiratory Rate 16 18 Blood Pressure 135/96 H 145/79 H Blood Pressure Mean 109 101 Pulse Ox 98 99 Oxygen Delivery Method Room Air Room Air MDM MDM MDM Narrative Medical decision making narrative: Patient is a 54-year-old female who presented to the emergency department with chief complaint of vaginal bleeding. Patient will have a workup performed here on the differential diagnose includes but not limited to abnormal uterine bleeding, endometrial cancer, UTI. Once workup is obtained reviewed she will be reevaluated. Patient CBC reviewed and was largely unremarkable no evidence of leukocytosis white blood count was notably 3.8, hemoglobin stable 11.3, platelet count was noted be 53 which is improved from her previous blood draw 2 days ago which was noted to be 44, sodium normal at 138, potassium normal 3.5, creatinine normal at 0.87. Patient's AST and ALT were 2922 respectively. Patient's urinalysis did not reveal any evidence infection did have positive nitrates with 25 leukocyte esterase however there are 5-10 squamous epithelial cells this likely contaminated sample test was negative. Patient's ultrasound was reviewed which showed fibroid uterus no acute findings there is a 2 mm endometrial stripe noted. Did discuss results with the patient and she would like to go home at this point time. She was encouraged to follow-up with her [facility] in the outpatient setting. She was encouraged return with worsening symptoms or other concerns she is agreeable this plan as well as her significant other at bedside all question concerns answered she is discharged home in stable condition. Lab Data Labs: Laboratory Results - last 24 hr 07/10/24 07/10/24 21:40 23:07 WBC 3.8 L RBC 4.16 L Hgb 11.3 L Hct 35.9 L MCV 86.3 MCH 27.2 MCHC 31.5 L RDW Std Deviation 48.2 H RDW Coeff of Pepito 15.2 H Plt Count 53 L MPV 12.8 H Immature Gran % (Auto) 0.300 Neut % (Auto) 49.6 Lymph % (Auto) 35.6 [place] % (Auto) 11.6 H Eos % (Auto) 2.4 Baso % (Auto) 0.5 Absolute Neuts (auto) 1.9 L Absolute Lymphs (auto) 1.35 Nucleated RBC % 0 Sodium 138 Potassium 3.5 Chloride 106 Carbon Dioxide 24.0 Anion Gap 8 BUN 10 Creatinine 0.87 Estim Creat Clear Calc 89.18 Est GFR (MDRD) Af Amer 88 Est GFR (MDRD) Non-Af 72 BUN/Creatinine Ratio 11.5 Glucose 95 Calcium 8.8 Total Bilirubin 0.90 AST 29 ALT 22 Alkaline Phosphatase 63 Total Protein 8.1 Albumin 3.6 Globulin 4.5 H Albumin/Globulin Ratio 0.8 L Urine Color Yellow Urine Clarity Cloudy Urine pH 6.0 Ur Specific [place] 1.020 Urine Protein 30 H Urine Glucose (UA) Normal Urine Ketones 5 H Urine Occult Blood 250 H Urine Nitrite Positive H Urine Bilirubin 3 H Urine Urobilinogen 12 H Ur Leukocyte Esterase 25 H Urine RBC 50-100 SEEN Urine WBC 0-5 SEEN Ur Squamous Epith Cells 5-10 SEEN Urine Bacteria 1+ Urine Mucus 1+ Urine Test Negative Radiography Diagnostic Testing: Clinical Impression(s) from Imaging Studies Transvaginal US 07/10/24 21:18 IMPRESSION: Fibroid uterus. No acute findings. Electronically Signed: Stephen Quinonez MD at 23:25 EDT , Discharge Plan Triage Chief Complaint: Vag Bleeding ED Provider: Rod Chua Dx/Rx/DC Orders Clinical Impression: Abnormal vaginal bleeding Prescriptions: No Action folic acid 1 mg Tablet 1 mg PO DAILY multivitamin Capsule 1 cap PO DAILY trazodone 50 mg Tablet 100 mg PO QHS thiamine HCl (vitamin B1) [Vitamin B-1] 100 mg Tablet 100 mg PO DAILY cholecalciferol (vitamin D3) [Vitamin D3] 125 mcg (5,000 unit) Tablet 125 mcg PO DAILY magnesium 250 mg Tablet 250 mg PO DAILY ginkgo biloba 60 mg Capsule 60 mg PO DAILY Rx Instructions: give with meal/snack progesterone micronized 100 mg Capsule 500 mg PO QHS milk thistle 175 mg Capsule 175 mg PO DAILY Rx Instructions: give with meal/snack Thlsictuzmi-Oymqjs-I9 (C-hung) 500-400-667 mg-mg-unit Capsule 1 cap PO DAILY duloxetine 60 mg capsule,delayed release(DR/EC) 60 mg PO BID lactulose 10 gram/15 mL (15 mL) solution 15 ml PO TID PRN (Reason: ammonia) methocarbamol 500 mg tablet 500 mg PO TID citalopram 20 mg tablet 20 mg PO DAILY gabapentin 300 mg capsule 600 mg PO Q12H estradiol 0.01 % (0.1 mg/gram) cream 1 vaginal hydroxyzine pamoate 25 mg capsule 25 mg PO Q12H PRN PRN (Reason: anxiety) Gemtesa 75 mg tablet 75 mg PO DAILY pantoprazole 40 mg tablet,delayed release (DR/EC) 40 mg PO DAILY Qty: 90 2RF nadolol 20 mg tablet 20 mg PO DAILY Qty: 30 11RF famotidine 40 mg tablet 40 mg PO QHS Qty: 90 5RF Primary Care Provider: NEGRITA CARLTON Referrals: NEGRITA CARLTON NP-C [Primary Care Provider] - Activity Restrictions/Additional Instructions: Follow-up with your [facility] in the outpatient setting. Follow-up your primary care physician outpatient setting. Return for worsening symptoms or other concerns as discussed here in the emergency department. Print Language: Hungarian Disposition Disposition: Home, Self Care
== END 2024-07-11 00:25 | disposition home or self-care (01) ==
PROVIDERS: Emergency Provider Emergency Medicine; PCP Nurse Practitioner Family; Visit Provider Emergency Medicine
DX: N93.9 Abnormal uterine and vaginal bleeding, unspecified (principal)
CPT/HCPCS: 76830; 80053; 81001; 81025; 85025; 96360; 96361; 99283; J7030

== ENCOUNTER → 2024-08-10 | Outpatient (CLI) | payer OTHER, SELFPAY ==
[2024-08-12 12:10] LABS: PROELU- Albumin, Urine 15.5 % (.); PROELU- Alpha-1-Globulin,Ur 3.1 % (.); PROELU- Alpha-2-Globulin,Ur 10.1 % (.); PROELU- Gamma Globulin, Ur 36.2 % (.); Total Protein, Ur 6.5 mg/dL (Not Estab.)
== END | disposition home or self-care (01) ==
PROVIDERS: PCP Nurse Practitioner Family; Referring Provider Psychiatry & Neurology Neurology; Visit Provider Psychiatry & Neurology Neurology
DX: G60.9 Hereditary and idiopathic neuropathy, unspecified (principal)
CPT/HCPCS: 36415; 82140; 84166

== ENCOUNTER 2024-10-23 11:53 | Inpatient (IN) | payer OTHER, SELFPAY ==
[2024-10-23] VITALS (15 sets, daily range): BP systolic 93–131; BP diastolic 59–78; PULSE 68–140; RESP 12–19; TEMP 36.4–36.8; O2SAT 95–100; BMI 30.4; BMI 30.3
--- NOTE | 2024-10-23 12:34 | CT_ITS ---
STUDY: CT ABDOMEN AND PELVIS WITH CONTRAST REASON FOR EXAM: Female, 54 years old. Abdominal pain RADIATION DOSAGE (If Supplied By Facility): CTDIvol = ( 18.38 ) mGy, DLP = ( 1287.39 ) mGycm TECHNIQUE: 100CC ISOVUE 300 was administered. Transaxial images were obtained from the dome of the diaphragm to the symphysis pubis. Multiplanar coronal and sagittal images were reformatted. The protocol utilizes one or more of the following dose reduction techniques: automated exposure control, adjustment of mA and/or kV according to patient size,and/or use of iterative reconstruction technique. COMPARISON: No relevant prior comparison study available FINDINGS: The visualized portions of the lung bases demonstrate mild atelectasis or scarring. Coronary calcifications. Hepatomegaly and hepatic steatosis. Gallstones and/or sludge in the gallbladder. Severe splenomegaly. The spleen measures about 20 cm. Normal pancreas. Collateral veins in the splenic hilum consistent with portal venous hypertension. Normal bilateral adrenal glands. Probable small hiatal hernia. Normal in caliber small bowel loops. Fecal retention. No evidence of acute diverticulitis. The appendix is not identified. Retroperitoneal thickening of the anterior Gerota''s fascia bilaterally worse on the right side is again seen similar to the prior examination. No drainable abscess is seen. Atherosclerotic calcifications of the abdominal aorta without evidence of aneurysm. No retroperitoneal adenopathy. Normal right kidney. Normal left kidney. Normal urinary bladder. Right adnexal cyst is seen measuring about 3 cm. No free fluid. Normal abdominal wall. No demonstrated acute osseous changes. CT/Abdomen/Pelvis W IV Cont ONLY IMPRESSION: 1. Hepatosplenomegaly with collateral veins consistent with cirrhosis and portal venous hypertension. 2. Persistent thickening of the anterior Gerota''s fascia bilaterally for the most part unchanged since prior examination of undetermined etiology. 3. Small hiatal hernia. 4. Otherwise no focal acute inflammatory process.. Electronically Signed: Herman Chen MD at 16:06 EST ,
--- NOTE | 2024-10-23 12:35 | EX.ED.DYSGE1 ---
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 She normally runs around 11. She takes lactulose and has about 2 bowel movements a day. She denies any type of blood loss including hematemesis, melena, or hematochezia. Over the last few months she has had intermittent abdominal pain mainly in the RUQ and had an ultrasound showing gallbladder sludge but states her symptoms have no relation to what she eats. She also feels tired and intermittently short of breath. PFSH <RACHELL Engel - Last Filed: 10/23/24 17:05> [facility] Medical History Rash History of ulceration Chronic pain Non-smoker Neuropathy Wears glasses Post-menopausal Anxiety Alcohol use Anemia Migraine headache Syncope Gastric reflux Non-smoker History of pain when walking Leg cramps History of edema Cardiology follow-up encounter History of Clostridium difficile infection Splenomegaly Abnormal liver function test Cirrhosis of liver Wernickes encephalopathy Alcoholic hepatitis Home Medications ?Medication ?Instructions ?Recorded ?Last Taken ?Type cholecalciferol (vitamin D3) 125 125 mcg PO DAILY supple 04/04/22 Unknown History mcg (5,000 unit) tablet (Vitamin D3) folic acid 1 mg tablet 1 mg PO DAILY 04/04/22 Unknown History multivitamin 1 cap PO DAILY 04/04/22 Unknown History thiamine HCl (vitamin B1) 100 mg 100 mg PO DAILY 04/04/22 Unknown History tablet (Vitamin B-1) trazodone 50 mg tablet 200 mg PO QHS SLEEP 04/04/22 Unknown History nadolol 20 mg tablet 20 mg PO DAILY see phy #30 tabs 03/11/23 Unknown Rx pantoprazole 40 mg tablet,delayed 40 mg PO DAILY #90 tabs 03/11/23 Unknown Rx release ginkgo biloba 60 mg capsule 60 mg PO DAILY 05/08/23 Unknown History glucosamine 500 1 cap PO DAILY 05/08/23 Unknown History xf-wnyicngxb-kwddnmbe comp 400 mg-D3 667 unit-C-Mn cap (Zusrqqxpjda-Pzvqrdjcsjw-L1(C-manganese)) magnesium 250 mg tablet 250 mg PO DAILY 05/08/23 Unknown History milk thistle 175 mg capsule 175 mg PO DAILY 05/08/23 Unknown History progesterone micronized 100 mg 500 mg PO QHS 05/08/23 Unknown History capsule famotidine 40 mg tablet 40 mg PO QHS #90 tabs 06/11/23 Unknown Rx duloxetine 60 mg capsule,delayed 60 mg PO BID 07/07/23 Unknown History release lactulose 10 gram/15 mL (15 mL) 15 ml PO TID PRN ammonia 07/07/23 Unknown History oral solution citalopram 20 mg tablet 20 mg PO DAILY 07/10/24 Unknown History estradiol 0.01% (0.1 mg/gram) 1 appful vaginal QHS suppl 07/10/24 Unknown History vaginal cream hydroxyzine pamoate 25 mg capsule 25 mg PO BID anxiety 07/10/24 Unknown History methocarbamol 500 mg tablet 500 mg PO TID PRN pain 07/10/24 Unknown History vibegron 75 mg tablet (Gemtesa) 75 mg PO DAILY 07/10/24 Unknown History ascorbic acid (vitamin C) 500 mg 500 mg PO DAILY 10/23/24 Unknown History tablet calcium 315 mg (as 1 tab PO DAILY 10/23/24 Unknown History citrate)-vitamin D3 5 mcg (200 unit) tablet (Calcium Citrate + D) cholestyramine (with sugar) 4 gram 1 ea PO BID PRN PRN HIGH 10/23/24 Unknown History powder for susp in a packet CHOLESTEROL cranberry 500 mg capsule 500 mg PO DAILY 10/23/24 Unknown History d-mannose 500 mg capsule (AZO 1,000 mg PO BID 10/23/24 Unknown History D-Mannose) diphenhydramine HCl 25 mg capsule 50 mg PO QHS insom 10/23/24 Unknown History (Benadryl) gabapentin 800 mg tablet 800 mg PO TID 10/23/24 Unknown History mirabegron 50 mg tablet,extended 50 mg PO DAILY 10/23/24 Unknown History release 24 hr rifaximin 550 mg tablet 550 mg PO BID 10/23/24 Unknown History testosterone 12.5 mg/1.25 gram per 1 pump transdermal DAILY 10/23/24 Unknown History pump actuation (1%) transdermal gel tizanidine 4 mg capsule 4 mg PO QHS 10/23/24 Unknown History ferrous sulfate 325 mg (65 mg 325 mg PO BID #1 TAB 10/25/24 Unknown Rx iron) tablet oxycodone 5 mg tablet 5 mg PO Q6H PRN pain 5 days #20 12/07/24 Unknown Rx tabs oxycodone 5 mg tablet 5 mg PO Q6H PRN pain 3 days #12 02/08/25 Unknown Rx tabs Allergy/AdvReac Type Severity Reaction Status Date / Time acetaminophen AdvReac Intermediate LIVER Verified 02/07/25 21:33 ISSUES ibuprofen AdvReac Intermediate LIVER Verified 02/07/25 21:33 ISSUES Family History Mother Dementia Father Diabetes Surgical History History of esophagogastroduodenoscopy (EGD) History of liver biopsy History of tonsillectomy and adenoidectomy Social History household members: spouse Smoking Status: Never smoker alcohol intake: former year quit: 2020 substance use type: does not use ROS <RACHELL Engel - Last Filed: 10/23/24 17:05> ROS ED ROS Narrative Constitutional: Negative for fever, chills, malaise. CVS: Negative for chest pain, syncope. Respiratory: Positive positive for intermittent shortness of breath. GI: Positive for abdominal pain. Negative for vomiting, diarrhea, constipation, melena, hematochezia. : Negative for dysuria, hematuria or frequency. EXAM <RACHELL Engel - Last Filed: 10/23/24 17:05> Physical Exam Narrative Exam Narrative: CONST: Patient sitting in no acute distress. EYES: Normal inspection. NECK: Normal inspection. RESP: No respiratory distress, CTAB. CVS: Regular rate and rhythm, no murmur, no gallop. ABD: Soft and nontender, no guarding or rebound, nondistended. SKIN: Color normal, no rash, warm, dry, intact. EXTREMITIES: Normal appearance, no pedal edema. NEURO: Alert and answering questions appropriately. PSYCH: Normal affect. Const Vital Signs: 10/23/24 11:54 10/23/24 14:57 10/23/24 15:00 Temperature 97.8 F Temperature Source Oral Pulse Rate 83 73 Respiratory Rate 16 14 Respiratory Effort Normal Respiratory Pattern Normal Blood Pressure 93/77 114/59 L Blood Pressure Mean 82 77 Blood Pressure Source Blood Pressure Position Blood Pressure Location Pulse Ox 98 98 Oxygen Delivery Method Room Air Room Air 10/23/24 16:13 10/23/24 16:28 10/23/24 16:32 Temperature 97.9 F 97.9 F 97.9 F Temperature Source Oral Oral Pulse Rate 74 73 70 Respiratory Rate 12 19 H 14 Respiratory Effort Respiratory Pattern Blood Pressure 128/76 H 125/78 H 125/78 H Blood Pressure Mean 93 93 93 Blood Pressure Source Monitor Monitor Blood Pressure Position Semi-Fowlers Semi-Fowlers Blood Pressure Location Right Forearm Right Arm Pulse Ox 100 97 100 Oxygen Delivery Method Room Air Room Air <Dr. Ayaz Crisostomo DO - Last Filed: 02/12/25 16:45> Physical Exam Const Vital Signs: 10/23/24 11:54 10/23/24 14:57 10/23/24 15:00 Temperature 97.8 F Temperature Source Oral Pulse Rate 83 73 Respiratory Rate 16 14 Respiratory Effort Normal Respiratory Pattern Normal Blood Pressure 93/77 114/59 L Blood Pressure Mean 82 77 Blood Pressure Source Blood Pressure Position Blood Pressure Location Pulse Ox 98 98 Oxygen Delivery Method Room Air Room Air 10/23/24 16:13 10/23/24 16:28 10/23/24 16:32 Temperature 97.9 F 97.9 F 97.9 F Temperature Source Oral Oral Pulse Rate 74 73 70 Respiratory Rate 12 19 H 14 Respiratory Effort Respiratory Pattern Blood Pressure 128/76 H 125/78 H 125/78 H Blood Pressure Mean 93 93 93 Blood Pressure Source Monitor Monitor Blood Pressure Position Semi-Fowlers Semi-Fowlers Blood Pressure Location Right Forearm Right Arm Pulse Ox 100 97 100 Oxygen Delivery Method Room Air Room Air MDM <RACHELL Engel - Last Filed: 10/23/24 17:05> [facility] MDM Narrative Medical decision making narrative: History gathered from: Patient and spouse Differential includes GI bleed,, iron or vitamin deficiency, anemia of chronic disease, bone marrow issue Patient reports several weeks of fatigue and intermittent dyspnea and abdominal pain. She was sent in for outpatient acute on chronic anemia. She appears well and nontoxic. BP is 93/77 with otherwise normal vital signs. Labs show downtrending of her chronic pancytopenia with WBC of 2.5, hemoglobin 7.1 (previously 11.3), and platelets of 47. CMP overall unremarkable. AST minimally elevated at 61. Her Hemoccult is negative however on the rectal exam there was really no stool present so I am not sure if this is accurate. I ordered iron studies and 2 units of packed red blood cells. CT shows no acute findings. She has cirrhosis and portal venous hypertension. I discussed the case with hospitalist for admission. Lab Data Attestation: I reviewed the patient's lab results. Labs: Laboratory Results - last 24 hr 10/23/24 10/23/24 10/23/24 13:00 14:02 16:13 WBC 2.5 L RBC 3.07 L Hgb 7.1 L Hct 25.1 L MCV 81.8 MCH 23.1 L MCHC 28.3 L RDW Std Deviation 48.5 H RDW Coeff of Pepito 16.3 H Plt Count 47 L* MPV 12.6 H Immature Gran % (Auto) 0.400 Neut % (Auto) 61.2 Lymph % (Auto) 26.5 [place] % (Auto) 9.1 Eos % (Auto) 2.4 Baso % (Auto) 0.4 Absolute Neuts (auto) 1.6 L Absolute Lymphs (auto) 0.67 L Nucleated RBC % 0 Diff Path Review May foll Platelet Estimate MKD DEC PT 15.4 H INR 1.2 Sodium 140 Potassium 4.4 Chloride 112 H Carbon Dioxide 22.0 Anion Gap 6 BUN 9 Creatinine 0.85 Estim Creat Clear Calc 95.14 Est GFR (MDRD) Af Amer 89 Est GFR (MDRD) Non-Af 74 BUN/Creatinine Ratio 10.6 Glucose 117 H Calcium 8.9 TIBC 480 H Ferritin 5 L Total Bilirubin 0.80 AST 61 H ALT 23 Alkaline Phosphatase 57 Total Protein 7.1 Albumin 3.3 Globulin 3.8 Albumin/Globulin Ratio 0.9 Urine Color Yellow Urine Clarity Clear Urine pH 6.5 Ur Specific [place] 1.010 Urine Protein Negative Urine Glucose (UA) Normal Urine Ketones Negative Urine Occult Blood Negative Urine Nitrite Negative Urine Bilirubin Negative Urine Urobilinogen Normal Ur Leukocyte Esterase Negative Urine RBC 0 SEEN Urine WBC 0-5 SEEN Ur Squamous Epith Cells 5-10 SEEN Urine Bacteria 1+ Urine Mucus 0 SEEN Blood Type A POSITIVE Antibody Screen NEGATIVE Crossmatch See Detail Radiography Diagnostic Testing: Clinical Impression(s) from Imaging Studies Abdomen/Pelvis CT 10/23/24 12:34 IMPRESSION: 1. Hepatosplenomegaly with collateral veins consistent with cirrhosis and portal venous hypertension. 2. Persistent thickening of the anterior Gerota''s fascia bilaterally for the most part unchanged since prior examination of undetermined etiology. 3. Small hiatal hernia. 4. Otherwise no focal acute inflammatory process.. Electronically Signed: Herman Chen MD at 16:06 EST , <Dr. Ayaz Crisostomo, DO - Last Filed: 02/12/25 16:45> [facility] Narrative Medical decision making narrative: History gathered from: Patient and spouse Differential includes GI bleed,, iron or vitamin deficiency, anemia of chronic disease, bone marrow issue Patient reports several weeks of fatigue and intermittent dyspnea and abdominal pain. She was sent in for outpatient acute on chronic anemia. She appears well and nontoxic. BP is 93/77 with otherwise normal vital signs. Labs show downtrending of her chronic pancytopenia with WBC of 2.5, hemoglobin 7.1 (previously 11.3), and platelets of 47. CMP overall unremarkable. AST minimally elevated at 61. Her Hemoccult is negative however on the rectal exam there was really no stool present so I am not sure if this is accurate. I ordered iron studies and 2 units of packed red blood cells. CT shows no acute findings. She has cirrhosis and portal venous hypertension. I discussed the case with hospitalist for admission. I, Dr Crisostomo, have reviewed the above progress note and course of action in the ER; agree with the above. I have personally seen and evaluated this patient, gone over history and physical, and discussed disposition and treatment plan with the patient. Lab Data Labs: Laboratory Results - last 24 hr 10/23/24 10/23/24 10/23/24 13:00 14:02 16:13 WBC 2.5 L RBC 3.07 L Hgb 7.1 L Hct 25.1 L MCV 81.8 MCH 23.1 L MCHC 28.3 L RDW Std Deviation 48.5 H RDW Coeff of Pepito 16.3 H Plt Count 47 L* MPV 12.6 H Immature Gran % (Auto) 0.400 Neut % (Auto) 61.2 Lymph % (Auto) 26.5 [place] % (Auto) 9.1 Eos % (Auto) 2.4 Baso % (Auto) 0.4 Absolute Neuts (auto) 1.6 L Absolute Lymphs (auto) 0.67 L Nucleated RBC % 0 Diff Path Review May foll Platelet Estimate MKD DEC PT 15.4 H INR 1.2 Sodium 140 Potassium 4.4 Chloride 112 H Carbon Dioxide 22.0 Anion Gap 6 BUN 9 Creatinine 0.85 Estim Creat Clear Calc 95.14 Est GFR (MDRD) Af Amer 89 Est GFR (MDRD) Non-Af 74 BUN/Creatinine Ratio 10.6 Glucose 117 H Calcium 8.9 TIBC 480 H Ferritin 5 L Total Bilirubin 0.80 AST 61 H ALT 23 Alkaline Phosphatase 57 Total Protein 7.1 Albumin 3.3 Globulin 3.8 Albumin/Globulin Ratio 0.9 Urine Color Yellow Urine Clarity Clear Urine pH 6.5 Ur Specific [place] 1.010 Urine Protein Negative Urine Glucose (UA) Normal Urine Ketones Negative Urine Occult Blood Negative Urine Nitrite Negative Urine Bilirubin Negative Urine Urobilinogen Normal Ur Leukocyte Esterase Negative Urine RBC 0 SEEN Urine WBC 0-5 SEEN Ur Squamous Epith Cells 5-10 SEEN Urine Bacteria 1+ Urine Mucus 0 SEEN Blood Type A POSITIVE Antibody Screen NEGATIVE Crossmatch See Detail Radiography Diagnostic Testing: Clinical Impression(s) from Imaging Studies Abdomen/Pelvis CT 10/23/24 12:34 IMPRESSION: 1. Hepatosplenomegaly with collateral veins consistent with cirrhosis and portal venous hypertension. 2. Persistent thickening of the anterior Gerota''s fascia bilaterally for the most part unchanged since prior examination of undetermined etiology. 3. Small hiatal hernia. 4. Otherwise no focal acute inflammatory process.. Electronically Signed: Herman Chen MD at 16:06 EST , Discharge Plan Dx/Rx/DC Orders Clinical Impression: Acute on chronic anemia, Hx of cirrhosis, Abdominal pain, Pancytopenia Disposition Disposition: Acute Care Hospital [facility] Discharge Date/Time: 10/23/24 18:38
[2024-10-23 13:22] LABS: Absolute Lymphocyte Count 0.67 X10^3/uL (0.83-4.51); Absolute Neutrophil Count 1.6 X10^3/uL (2.0-7.7); Basophil# 0.01 X10^3/uL; Basophil% 0.4 % (0-1); Eosinophil# 0.06 X10^3/uL; Eosinophils% 2.4 % (0-5); Hematocrit 25.1 % (37-47); Hemoglobin 7.1 g/dL (12.0-15.0); Lymphocyte # 0.67 X10^3/ul (0.83-4.51); Lymphocyte % 26.5 % (19-41); Mean Corp Hgb Conc 28.3 g/dL (32-36); Mean Corpuscular Hgb 23.1 pg (27.0-32.0); Mean Corpuscular Volume 81.8 fL (81-99); Mean Platelet Vol. 12.6 fl (6.2-12.0); Monocyte# 0.23 X10^3/uL; Monocyte% 9.1 % (0-10); NRBC Flagged by Analyzer 0 % (0-5); Neutrophil # 1.55 X10^3/uL (2.7-7.7); Neutrophil % 61.2 % (47-70); POSITIVE COUNT YES; Platelet Count 47 K/mm3 (150-450); RBC Distribution Width CV 16.3 % (11.6-14.6); RBC Distribution Width SD 48.5 fl (35.1-43.9); Red Blood Count 3.07 M/mm3 (4.2-5.4); White Blood Count 2.5 K/mm3 (4.4-11.0)
[2024-10-23 13:24] LABS: Differential Indicated SCAN CRITERIA MET
[2024-10-23 13:31] LABS: International Normalized Ratio 1.2; Prothrombin Time (Protime)PT. 15.4 SECONDS (11.7-14.9)
[2024-10-23 13:41] LABS: Platelet Estimate MKD DEC (ADEQ)
[2024-10-23 13:44] LABS: ALB/GLOB Ratio 0.9 RATIO (0.9-2.4); AST(SGOT) 61 U/L (15-37); Alanine Aminotransfer ALT/SGPT 23 U/L (13-56); Albumin, Serum 3.3 g/dL (3.2-5.0); Alkaline Phosphatase 57 U/L (45-117); Anion Gap 6 (5-15); BUN 9 mg/dL (7-18); BUN/Creat Ratio 10.6 RATIO (10-20); Calcium,Total 8.9 mg/dL (8.5-10.1); Chloride 112 mmol/L (98-107); Creatinine, Serum 0.85 mg/dL (0.55-1.02); EST Glomerular Filtration Rate 74 mL/min (>60); Est Glom Filt Rate - Afr Amer 89 mL/min (>60); Estimated Creatinine Clearance 95.14 ml/min; Globulin 3.8 g/dL (2.2-4.2); Glucose 117 mg/dL (74-106); Potassium 4.4 mmol/L (3.5-5.1); Protein, Total 7.1 g/dL (6.4-8.2); Sodium Level 140 mmol/L (136-145)
[2024-10-23 16:27] LABS: Mucous, Urine 0 SEEN /hpf (<or=2+); Red Blood Cells-Urine 0 SEEN /hpf (0-5)
[2024-10-23 16:29] LABS: Color, Urine Yellow (Yellow); Glucose, Dipstick Normal (Normal); Ketone-Dipstick Negative (Negative); Leukocyte Esterase-Dipstick Negative /ul (Negative); Nitrite-Dipstick Negative (Negative); Occult Blood-Urine Negative /ul (Negative); Protein-Dipstick Negative (Negative); Urine Bilirubin Dipstick Negative (Negative); Urine Clarity Clear (Clear); Urine Urobilinogen Normal (Normal); Urine pH 6.5 (5.0 - 8.0)
[2024-10-23 16:45] LABS: Bacteria 1+ /hpf (None Seen); Squamous Epithelial Cells - UA 5-10 SEEN /hpf (5-10); White Blood Cells 0-5 SEEN /hpf (0-5)
[2024-10-23 16:48] LABS: Ferritin 5 ng/mL (8-252); Iron Binding Capacity,Total 480 ug/dL (250-450)
--- NOTE | 2024-10-23 17:36 | PCM.HP.STD ---
HPI - General General Date of Admission: 10/23/24 Date of Service: 10/23/24 Chief Complaint: Abnormal labs HPI Narrative DOMINIC JIMENEZ, is a 54-year-old female with a history of alcoholic cirrhosis presently 3 years sober and depression presented [facility] ED 10/23/2024 from her primary care doctor office after outpatient labs showed hemoglobin in the sevens with her baseline around 11. She does take her lactulose and has about 2 bowel movements a day. Denies any overt bleeding. Over the past few months has had some intermittent right upper quadrant abdominal pain had an ultrasound which showed gallbladder sludge. In the ED her hemoglobin was 7.1 with white blood cell count of 2.5 and platelet count of 47. FOBT negative however is felt to be a poor sample. She had been weak and short of breath so given her symptomatic anemia the patient was transfused 2 units packed red blood cells and hospitalist contacted for admission. Patient evaluated at bedside, she had routine lab work through her primary care physician's office back on October 10 and was told to come to the ED for bleeding workup however given ride difficulties she was not able to come in until today. She reports that she has had some intermittent right upper quadrant pain and follows with a GI DrViv Mays at [facility] and they do not think it is her gallbladder. Additionally intermittently gets some nausea and poor p.o. Patient does have regular bowel movements given her lactulose. No fevers, has not noted bleeding from her GI tract. Did have a period for the first time in 8 years several months ago and then had light bleeding more recently that resolved. Patient reports she has been through menopause and had not had bleeding for years up until several months ago. She is set to establish with a new tripe washer next month. Patient does report increasing shortness of breath over the past couple of months to the point is difficulty even go up stairs and has been very fatigued and increasingly pale. No significant or productive cough or fevers COUNT INCLUDES THE [facility] Medical History Rash History of ulceration Chronic pain Non-smoker Neuropathy Wears glasses Post-menopausal Anxiety Alcohol use Anemia Migraine headache Syncope Gastric reflux Non-smoker History of pain when walking Leg cramps History of edema Cardiology follow-up encounter History of Clostridium difficile infection Splenomegaly Abnormal liver function test Cirrhosis of liver Wernickes encephalopathy Alcoholic hepatitis Home Medications ?Medication ?Instructions ?Recorded ?Last Taken ?Type cholecalciferol (vitamin D3) 125 125 mcg PO DAILY 04/04/22 Unknown History mcg (5,000 unit) tablet (Vitamin D3) folic acid 1 mg tablet 1 mg PO DAILY 04/04/22 Unknown History multivitamin 1 cap PO DAILY 04/04/22 Unknown History thiamine HCl (vitamin B1) 100 mg 100 mg PO DAILY 04/04/22 Unknown History tablet (Vitamin B-1) trazodone 50 mg tablet 100 mg PO QHS SLEEP 04/04/22 Unknown History nadolol 20 mg tablet 20 mg PO DAILY #30 tabs 03/11/23 Unknown Rx pantoprazole 40 mg tablet,delayed 40 mg PO DAILY #90 tabs 03/11/23 Unknown Rx release ginkgo biloba 60 mg capsule 60 mg PO DAILY 05/08/23 Unknown History glucosamine 500 1 cap PO DAILY 05/08/23 Unknown History ik-bksekrcaz-yskboozx comp 400 mg-D3 667 unit-C-Mn cap (Ckmblakjmee-Etzhzkltjbt-X7(C-manganese)) magnesium 250 mg tablet 250 mg PO DAILY 05/08/23 Unknown History milk thistle 175 mg capsule 175 mg PO DAILY 05/08/23 Unknown History progesterone micronized 100 mg 500 mg PO QHS 05/08/23 Unknown History capsule famotidine 40 mg tablet 40 mg PO QHS #90 tabs 06/11/23 Unknown Rx duloxetine 60 mg capsule,delayed 60 mg PO BID 07/07/23 Unknown History release lactulose 10 gram/15 mL (15 mL) 15 ml PO TID PRN ammonia 07/07/23 Unknown History oral solution citalopram 20 mg tablet 20 mg PO DAILY 07/10/24 Unknown History estradiol 0.01% (0.1 mg/gram) 1 vaginal 07/10/24 Unknown History vaginal cream gabapentin 300 mg capsule 600 mg PO Q12H 07/10/24 Unknown History hydroxyzine pamoate 25 mg capsule 25 mg PO Q12H PRN PRN anxiety 07/10/24 Unknown History methocarbamol 500 mg tablet 500 mg PO TID 07/10/24 Unknown History vibegron 75 mg tablet (Gemtesa) 75 mg PO DAILY 07/10/24 Unknown History cefdinir 300 mg capsule 300 mg PO Q12H #14 caps 07/12/24 Unknown Rx ascorbic acid (vitamin C) 500 mg 500 mg PO DAILY 10/23/24 Unknown History tablet calcium 315 mg (as 1 tab PO DAILY 10/23/24 Unknown History citrate)-vitamin D3 5 mcg (200 unit) tablet (Calcium Citrate + D) cholestyramine (with sugar) 4 gram 1 ea PO BID PRN PRN HIGH 10/23/24 Unknown History powder for susp in a packet CHOLESTEROL cranberry 500 mg capsule 500 mg PO DAILY 10/23/24 Unknown History d-mannose 500 mg capsule (AZO 1,000 mg PO BID 10/23/24 Unknown History D-Mannose) gabapentin 800 mg tablet 800 mg PO TID 10/23/24 Unknown History mirabegron 50 mg tablet,extended 50 mg PO DAILY 10/23/24 Unknown History release 24 hr rifaximin 550 mg tablet 550 mg PO BID 10/23/24 Unknown History testosterone 12.5 mg/1.25 gram per 1 pump transdermal DAILY 10/23/24 Unknown History pump actuation (1%) transdermal gel tizanidine 4 mg capsule 4 mg PO QHS 10/23/24 Unknown History Allergy/AdvReac Type Severity Reaction Status Date / Time acetaminophen AdvReac Intermediate LIVER Verified 10/23/24 11:56 ISSUES ibuprofen AdvReac Intermediate LIVER Verified 10/23/24 11:56 ISSUES Family History Mother Dementia Father Diabetes Surgical History History of esophagogastroduodenoscopy (EGD) History of liver biopsy History of tonsillectomy and adenoidectomy Social History household members: spouse Smoking Status: Never smoker alcohol intake: former year quit: 2020 substance use type: does not use ROS ROS Narrative 13 point ROS reviewed and pertinent positives as above Vital Signs Vital Signs Vital Signs: 10/23/24 11:54 10/23/24 14:57 10/23/24 15:00 Temperature 97.8 F Temperature Source Oral Pulse Rate 83 73 Respiratory Rate 16 14 Respiratory Effort Normal Respiratory Pattern Normal Blood Pressure 93/77 114/59 L Blood Pressure Mean 82 77 Blood Pressure Source Blood Pressure Position Blood Pressure Location Pulse Ox 98 98 Oxygen Delivery Method Room Air Room Air 10/23/24 16:13 12/06/24 16:28 10/23/24 16:32 Temperature 97.9 F 97.9 F 97.9 F Temperature Source Oral Oral Pulse Rate 74 73 70 Respiratory Rate 12 19 H 14 Respiratory Effort Respiratory Pattern Blood Pressure 128/76 H 125/78 H 125/78 H Blood Pressure Mean 93 93 93 Blood Pressure Source Monitor Monitor Blood Pressure Position Semi-Fowlers Semi-Fowlers Blood Pressure Location Right Forearm Right Arm Pulse Ox 100 97 100 Oxygen Delivery Method Room Air Room Air 10/23/24 17:00 Temperature Temperature Source Pulse Rate 71 Respiratory Rate 16 Respiratory Effort Respiratory Pattern Blood Pressure 131/76 H Blood Pressure Mean 94 Blood Pressure Source Blood Pressure Position Blood Pressure Location Pulse Ox 100 Oxygen Delivery Method Room Air Weight Weight: 96.388 kg Body Mass Index (BMI) 30.4 Physical Exam Narrative General: Alert, oriented, no apparent distress HEENT: Atraumatic, normocephalic Eyes: Anicteric, normal conjunctiva, extraocular movements grossly intact Neck: Supple Respiratory: Clear to auscultation bilaterally, normal respiratory effort Cardiovascular: Regular rate and rhythm GI: Soft, nontender, nondistended Extremities: No edema Musculoskeletal: Moving all extremities Neuro: No overt focal neurological deficits Skin: No rashes appreciated Psych: Anxious and tearful at times Results Lab / Micro Data 10/23/24 13:00 10/23/24 13:00 Labs: Laboratory Results - last 24 hr 10/23/24 13:00: WBC 2.5 L, RBC 3.07 L, Hgb 7.1 L, Hct 25.1 L, MCV 81.8, MCH 23.1 L, MCHC 28.3 L, RDW Std Deviation 48.5 H, RDW Coeff of Pepito 16.3 H, Plt Count 47 L*, MPV 12.6 H, Immature Gran % (Auto) 0.400, Neut % (Auto) 61.2, Lymph % (Auto) 26.5, [place] % (Auto) 9.1, Eos % (Auto) 2.4, Baso % (Auto) 0.4, Absolute Neuts (auto) 1.6 L, Absolute Lymphs (auto) 0.67 L, Nucleated RBC % 0, Diff Path Review March, Platelet Estimate MKD DEC, PT 15.4 H, INR 1.2, Sodium 140, Potassium 4.4, Chloride 112 H, Carbon Dioxide 22.0, Anion Gap 6, BUN 9, Creatinine 0.85, Estim Creat Clear Calc 95.14, Est GFR (MDRD) Af Amer 89, Est GFR (MDRD) Non-Af 74, BUN/Creatinine Ratio 10.6, Glucose 117 H, Calcium 8.9, TIBC 480 H, Ferritin 5 L, Total Bilirubin 0.80, AST 61 H, ALT 23, Alkaline Phosphatase 57, Total Protein 7.1, Albumin 3.3, Globulin 3.8, Albumin/Globulin Ratio 0.9 10/23/24 14:02: Blood Type A POSITIVE, Antibody Screen NEGATIVE, Crossmatch See Detail 10/23/24 16:13: Urine Color Yellow, Urine Clarity Clear, Urine pH 6.5, Ur Specific [place] 1.010, Urine Protein Negative, Urine Glucose (UA) Normal, Urine Ketones Negative, Urine Occult Blood Negative, Urine Nitrite Negative, Urine Bilirubin Negative, Urine Urobilinogen Normal, Ur Leukocyte Esterase Negative, Urine RBC 0 SEEN, Urine WBC 0-5 SEEN, Ur Squamous Epith Cells 5-10 SEEN, Urine Bacteria 1+, Urine Mucus 0 SEEN Micro: Microbiology 10/23/24 12:58 Stool Stool Occult Blood (GERARDO) - Final Imaging Radiology Impression Abdomen/Pelvis CT 10/23/24 12:34 IMPRESSION: 1. Hepatosplenomegaly with collateral veins consistent with cirrhosis and portal venous hypertension. 2. Persistent thickening of the anterior Gerota''s fascia bilaterally for the most part unchanged since prior examination of undetermined etiology. 3. Small hiatal hernia. 4. Otherwise no focal acute inflammatory process.. Electronically Signed: Herman Chen MD at 16:06 EST , Assessment & Plan Assessment/Plan (1) Acute on chronic anemia: PLAN: Plan # Acute on chronic anemia -Hemoglobin 7.1 in the ED with a baseline closer to 11 -FOBT negative but is felt to be a poor sample -Iron studies strongly suggestive of iron deficiency anemia so even with negative fecal occult feel it is reasonable to consult gastroenterology -Will place on IV PPI -There is certainly was a possibility of underproduction, patient already receiving blood, will attempt to add on reticulocyte count/further workup to previously drawn labs #Pancytopenia -This is chronic, would likely benefit from establishing with a machine fur cleaner on discharge especially if no source of bleeding found # History of alcoholic cirrhosis -Patient reports 3 years of sobriety, continue to encourage -Continue patient's home medications #Depression/anxiety -Continue home duloxetine, will need to clarify if she is taking duloxetine and citalopram as these can be dangerous to take together # Postmenopausal bleeding -Patient has appointment with a tripe washer next month, encouraged to keep this #DVT ppx: SCDs Rosana Pizano MD Charges/Coding Visit Charges Inpatient E&M: 93697 Init Hosp L2
[2024-10-23] MEDS: Lactulose 20 GM/30 ML UDC 10 GM PO (20:34)
[2024-10-23] MEDS: Methocarbamol 500 MG Tablet PO (20:34)
[2024-10-23] MEDS: DULoxetine Hcl 60 MG Capsule PO (20:34)
[2024-10-23] MEDS: Pantoprazole Sodium 40 MG in 0.9% Normal Saline (100mL MB+) 100 ML 330 MG IV (20:35)
[2024-10-23] MEDS: rifAXIMin 550 MG Tablet PO (20:35)
[2024-10-23] MEDS: traZODone 100 MG Tablet PO (20:41)
[2024-10-23] MEDS: MELATONIN 3 MG TABLET PO (20:42)
[2024-10-23] MEDS: Gabapentin 800 MG Tablet PO (20:44)
[2024-10-23] MEDS: tiZANidine HCl 2 MG Tablet 4 MG PO (22:49)
[2024-10-23 23:22] LABS: Iron 78 ug/dL (50-170)
[2024-10-24 02:29] VITALS: BP 106/69; PULSE 68; RESP 16; TEMP 36.8; O2SAT 97
[2024-10-24 04:30] VITALS: PULSE 67
[2024-10-24] MEDS: Methocarbamol 500 MG Tablet PO ×3 (05:13→21:34)
[2024-10-24] MEDS: Gabapentin 800 MG Tablet PO ×3 (05:13→21:18)
[2024-10-24 05:39] LABS: Absolute Lymphocyte Count 1.03 X10^3/uL (0.83-4.51); Absolute Neutrophil Count 1.5 X10^3/uL (2.0-7.7); Basophil# 0.02 X10^3/uL; Basophil% 0.7 % (0-1); Eosinophil# 0.06 X10^3/uL; Eosinophils% 2.1 % (0-5); Hematocrit 28.4 % (37-47); Hemoglobin 8.4 g/dL (12.0-15.0); Lymphocyte # 1.03 X10^3/ul (0.83-4.51); Mean Corp Hgb Conc 29.6 g/dL (32-36); Mean Corpuscular Hgb 23.9 pg (27.0-32.0); Mean Corpuscular Volume 80.9 fL (81-99); Monocyte# 0.24 X10^3/uL; Monocyte% 8.4 % (0-10); NRBC Flagged by Analyzer 0 % (0-5); Neutrophil % 52.5 % (47-70); POSITIVE COUNT YES; Platelet Count 52 K/mm3 (150-450); RBC Distribution Width CV 16.3 % (11.6-14.6); RBC Distribution Width SD 47.4 fl (35.1-43.9); Red Blood Count 3.51 M/mm3 (4.2-5.4); White Blood Count 2.9 K/mm3 (4.4-11.0)
[2024-10-24 05:41] LABS: Immature Platelet Fraction 10.6 % (1.0-7.9); Platelet Count 52 K/mm3 (150-450); RET-HE 20.7 pg (30-35); Reticulocyte Count 1.79 % (0.5-1.5)
[2024-10-24 05:57] LABS: ALB/GLOB Ratio 0.9 RATIO (0.9-2.4); AST(SGOT) 20 U/L (15-37); Alanine Aminotransfer ALT/SGPT 18 U/L (13-56); Albumin, Serum 3.1 g/dL (3.2-5.0); Alkaline Phosphatase 55 U/L (45-117); Anion Gap 5 (5-15); BUN 11 mg/dL (7-18); Calcium,Total 8.6 mg/dL (8.5-10.1); Chloride 112 mmol/L (98-107); Creatinine, Serum 0.84 mg/dL (0.55-1.02); EST Glomerular Filtration Rate 74 mL/min (>60); Est Glom Filt Rate - Afr Amer 90 mL/min (>60); Estimated Creatinine Clearance 95.75 ml/min; Globulin 3.5 g/dL (2.2-4.2); Glucose 121 mg/dL (74-106); Potassium 4.1 mmol/L (3.5-5.1); Protein, Total 6.6 g/dL (6.4-8.2); Sodium Level 139 mmol/L (136-145)
[2024-10-24 07:59] VITALS: BP 99/63; PULSE 70; RESP 16; TEMP 36.5; O2SAT 100
[2024-10-24] MEDS: Folic Acid 1 MG Tablet PO (08:17)
[2024-10-24] MEDS: Thiamine Hydrochloride 100 MG Tablet PO (08:18)
[2024-10-24] MEDS: hydrOXYzine PAM 25 MG Capsule PO ×2 (08:31→21:53)
[2024-10-24] MEDS: Lactulose 20 GM/30 ML UDC 10 GM PO ×2 (11:08→21:18)
[2024-10-24] MEDS: DULoxetine Hcl 60 MG Capsule PO ×2 (11:09→21:15)
[2024-10-24] MEDS: Vibegron 75 MG TABLET PO (11:10)
[2024-10-24] MEDS: Magnesium Chloride 64 MG Delay Rel.Tablet PO (11:10)
[2024-10-24] MEDS: rifAXIMin 550 MG Tablet PO ×2 (11:10→21:19)
[2024-10-24] MEDS: Pantoprazole Sodium 40 MG in 0.9% Normal Saline (100mL MB+) 100 ML 330 MG IV ×2 (11:20→21:36)
--- NOTE | 2024-10-24 12:56 | CASEMGMT ---
SHREE RIVERA Assessment: Face to Face with pt for initial transition planning/care coordination assessment. RN MIGUEL introduced self and role at [facility], pt voices understanding and consents to assessment. Pt is A&O x4 and answers all questions appropriately at this time. Pt lying in bed in no distress. Care providers, pharmacy, and demographics verified/updated. Strata: 3 Admitting Dx: Acute on Chronic Anemia PCP: Francisca Specialists: Stephany, ENT; Sharlene, Urology and OBGYN Preferred Pharmacy: [facility] Insurance: Commercial, Other Prescription Benefit: yes LNOK: , [place] Living Arrangements: Pt lives with and 2 older children. Lives in a 2 story with 2 steps to enter. ADLs: Pt states I with ADLs and IADLs. Transportation: Pt provides transportation. DME: grab bars, walker, cane and shower chair. HHC/SNF: [facility], used HHC previously but does not recall name of agency. Pt states no concerns with going home at time of dc. Pt states no further concerns/needs. CM to follow. Advised pt to ask CM if any further question/concerns/needs arise, voices understanding. Pt Goal: Home Plan: Home with family support. Amy SWANN CM
--- NOTE | 2024-10-24 13:44 | PCM.PN.HOSP ---
Reason for Visit Reason for Visit: Diagnoses Anemia, unspecified (10/23/24) Subjective Subjective Patient was seen and examined today, she was given 2 units of packed red blood cells yesterday, hemoglobin is 8.4 today. I talked at length with her and her was in the room at the time my examination, she states that she had both an EGD and a colonoscopy done in April of this year by her fleet administrative assistant and there were no abnormalities found. In 2021 she had endoscopy here at the hospital and it showed grade 1 esophageal varices, portal hypertensive gastropathy, and a nonbleeding duodenal ulcer. Patient is currently sober Objective Data Objective Data Vital Signs: Vital Signs Temp Pulse Resp BP Pulse Ox O2 Del Method 97.7 F L 70 16 99/63 100 Room Air 10/24/24 07:59 10/24/24 07:59 10/24/24 07:59 10/24/24 07:59 10/24/24 07:59 10/24/24 07:59 Oxygen Delivery Method Room Air Weight: 95.3 kg Body Mass Index (BMI) 30.0 Intake & Output: Intake and Output for Last 24 Hours 10/22/24 10/23/24 10/24/24 23:59 23:59 23:59 Intake Total 610 / 610 1000 / 1000 Balance 610 / 610 1000 / 1000 Lab / Micro Data 10/24/24 05:25 10/24/24 05:25 Labs: Laboratory Results - last 24 hr 10/23/24 13:00: Sodium 140, Potassium 4.4, Chloride 112 H, Carbon Dioxide 22.0, Anion Gap 6, BUN 9, Creatinine 0.85, Estim Creat Clear Calc 95.14, Est GFR (MDRD) Af Amer 89, Est GFR (MDRD) Non-Af 74, BUN/Creatinine Ratio 10.6, Glucose 117 H, Calcium 8.9, Iron 78, TIBC 480 H, Ferritin 5 L, Total Bilirubin 0.80, AST 61 H, ALT 23, Alkaline Phosphatase 57, Total Protein 7.1, Albumin 3.3, Globulin 3.8, Albumin/Globulin Ratio 0.9 10/23/24 14:02: Blood Type A POSITIVE, Antibody Screen NEGATIVE, Crossmatch See Detail 10/23/24 16:13: Urine Color Yellow, Urine Clarity Clear, Urine pH 6.5, Ur Specific [place] 1.010, Urine Protein Negative, Urine Glucose (UA) Normal, Urine Ketones Negative, Urine Occult Blood Negative, Urine Nitrite Negative, Urine Bilirubin Negative, Urine Urobilinogen Normal, Ur Leukocyte Esterase Negative, Urine RBC 0 SEEN, Urine WBC 0-5 SEEN, Ur Squamous Epith Cells 5-10 SEEN, Urine Bacteria 1+, Urine Mucus 0 SEEN 10/24/24 05:25: WBC 2.9 L, RBC 3.51 L, Hgb 8.4 L, Hct 28.4 L, MCV 80.9 L, MCH 23.9 L, MCHC 29.6 L, RDW Std Deviation 47.4 H, RDW Coeff of Pepito 16.3 H, Plt Count 52 L, MPV TNP, Immature Gran % (Auto) 0.300, Neut % (Auto) 52.5, Lymph % (Auto) 36.0, [place] % (Auto) 8.4, Eos % (Auto) 2.1, Baso % (Auto) 0.7, Absolute Neuts (auto) 1.5 L, Absolute Lymphs (auto) 1.03, Nucleated RBC % 0, Immature Plt Fraction 10.6 H, Retic Count 1.79 H, Immature Retic Fraction 28.40 H, Retic Hgb Equivalent 20.7 L, Sodium 139, Potassium 4.1, Chloride 112 H, Carbon Dioxide 23.0, Anion Gap 5, BUN 11, Creatinine 0.84, Estim Creat Clear Calc 95.75, Est GFR (MDRD) Af Amer 90, Est GFR (MDRD) Non-Af 74, BUN/Creatinine Ratio 13.0, Glucose 121 H, Calcium 8.6, Total Bilirubin 1.20 H, AST 20, ALT 18, Alkaline Phosphatase 55, Total Protein 6.6, Albumin 3.1 L, Globulin 3.5, Albumin/Globulin Ratio 0.9 Micro: Microbiology 10/23/24 21:40 Stool Stool Occult Blood (GERARDO) - Final Occult Blood Positive 10/23/24 12:58 Stool Stool Occult Blood (GERARDO) - Final Radiography Diagnostic Testing: Radiology Impression Abdomen/Pelvis CT 10/23/24 12:34 IMPRESSION: 1. Hepatosplenomegaly with collateral veins consistent with cirrhosis and portal venous hypertension. 2. Persistent thickening of the anterior Gerota''s fascia bilaterally for the most part unchanged since prior examination of undetermined etiology. 3. Small hiatal hernia. 4. Otherwise no focal acute inflammatory process.. Electronically Signed: Herman Chen MD at 16:06 EST , Physical Exam Const alert, oriented x3 and no apparent distress General Appearance: cooperative, well kempt and well developed Orientation / Consciousness: awake, oriented to person, oriented to place and oriented to time HEENT normocephalic, head/scalp atraumatic and moist oral mucous membranes Eyes PERRL, EOMs intact bilaterally and conjunctivae normal Neck supple, no JVD, thyroid normal and no carotid bruits General: trachea midline Resp normal respiratory effort, no retractions, no use of accessory muscles and clear to auscultation bilaterally Auscultation: Negative for rales, rhonchi or wheezes Cardio regular rate, regular rhythm, S1 normal heart sound, S2 normal heart sound, no murmurs, no rub and no gallops GI normal to inspection, nondistended, normoactive bowel sounds, soft to palpation, non-tender and non-distended Extremity no clubbing, cyanosis or edema Skin no rashes or lesions noted General Skin Exam: no breakdown Neuro oriented x3, CN's II-XII intact bilaterally, moves all extremities, no focal motor deficits and no sensory deficits noted Sensorium / Orientation: awake and alert Speech: speech normal Psych affect normal Assessment & Plan Assessment/Plan (1) Abdominal pain: PLAN: Plan 1. Chronic anemia-requiring blood transfusion-patient CBC will be rechecked tomorrow, the etiology of the anemia may be due to variceal bleeding and/or peptic ulcer disease. Gastroenterology will see the patient in consultation #2 right upper quadrant abdominal pain-etiology unclear, patient's CT of the abdomen pelvis showed gallstones and/or sludge in the gallbladder, patient does have severe splenomegaly. And may be necessary to obtain a HIDA scan on the patient, gastroenterology will see the patient in consultation #3 cirrhosis of the liver secondary to alcohol use disorder-complicates care, management, recovery, and prognosis #4 pancytopenia-secondary to cirrhosis-labs will be monitored #5 alcoholism-patient has not drank in 3 years. Total clinical time spent by myself addressing the patient's medical issues, reviewing all of her data, and collaborating with patient's care team: 35 minutes Charges/Coding Visit Charges Inpatient E&M: 35032 Subs Hosp L2
[2024-10-24] MEDS: Sodium Ferric Gluconat/Sucrose 250 MG in 0.9% Normal Saline (250mL Bag) 250 ML 135 MG IV (15:34)
[2024-10-24 21:12] VITALS: BP 111/76; PULSE 75; RESP 18; TEMP 36.6; O2SAT 99
[2024-10-24] MEDS: traZODone 100 MG Tablet PO ×2 (21:53→23:32)
[2024-10-24] MEDS: MELATONIN 3 MG TABLET PO (21:53)
[2024-10-25] MEDS: Methocarbamol 500 MG Tablet PO (05:17)
[2024-10-25] MEDS: Gabapentin 800 MG Tablet PO (05:17)
[2024-10-25 05:19] VITALS: BP 107/69; PULSE 78; RESP 18; TEMP 36.6; O2SAT 98
[2024-10-25 06:00] VITALS: BMI 30.1
[2024-10-25 07:32] LABS: Absolute Lymphocyte Count 0.97 X10^3/uL (0.83-4.51); Absolute Neutrophil Count 1.7 X10^3/uL (2.0-7.7); Basophil# 0.01 X10^3/uL; Basophil% 0.3 % (0-1); Eosinophil# 0.05 X10^3/uL; Eosinophils% 1.7 % (0-5); Hematocrit 28.2 % (37-47); Hemoglobin 8.4 g/dL (12.0-15.0); Lymphocyte # 0.97 X10^3/ul (0.83-4.51); Lymphocyte % 32.8 % (19-41); Mean Corp Hgb Conc 29.8 g/dL (32-36); Mean Corpuscular Hgb 24.3 pg (27.0-32.0); Mean Corpuscular Volume 81.5 fL (81-99); Monocyte# 0.26 X10^3/uL; Monocyte% 8.8 % (0-10); NRBC Flagged by Analyzer 0 % (0-5); Neutrophil # 1.65 X10^3/uL (2.7-7.7); Neutrophil % 55.7 % (47-70); POSITIVE COUNT YES; RBC Distribution Width CV 16.4 % (11.6-14.6); RBC Distribution Width SD 48.9 fl (35.1-43.9); Red Blood Count 3.46 M/mm3 (4.2-5.4)
[2024-10-25 07:37] LABS: Platelet Count 49 K/mm3 (150-450)
[2024-10-25 08:13] VITALS: BP 124/68; PULSE 82; RESP 16; TEMP 36.7; O2SAT 96
[2024-10-25] MEDS: Folic Acid 1 MG Tablet PO (08:29)
[2024-10-25] MEDS: Thiamine Hydrochloride 100 MG Tablet PO (08:29)
[2024-10-25] MEDS: Lactulose 20 GM/30 ML UDC 10 GM PO (10:04)
[2024-10-25] MEDS: Vibegron 75 MG TABLET PO (10:07)
[2024-10-25] MEDS: DULoxetine Hcl 60 MG Capsule PO (10:07)
[2024-10-25] MEDS: Magnesium Chloride 64 MG Delay Rel.Tablet PO (10:08)
[2024-10-25] MEDS: Pantoprazole Sodium 40 MG in 0.9% Normal Saline (100mL MB+) 100 ML 330 MG IV (10:09)
[2024-10-25] MEDS: rifAXIMin 550 MG Tablet PO (10:09)
[2024-10-25] MEDS: Sodium Ferric Gluconat/Sucrose 250 MG in 0.9% Normal Saline (250mL Bag) 250 ML 135 MG IV (12:16)
--- NOTE | 2024-10-25 12:37 | DCINST_ITS ---
Discharge Instructions Diet Discharge Diet: No restrictions DC O2, CPAP, BIPAP needs Additional Home O2 Discharge instructions: No Dressing / Incision Discharge Activity: Return to Normal Activity Weight Bearing Status: Full weight bearing Follow Up Care Test Results: Test results from this visit will be discussed in further detail at your follow- up appointment, if applicable. Discharge Plan Admission Admit Date/Time: 10/23/24 17:37 Primary Reason for Your Visit: IRON DEFICIENCY ANEMIA Attending Provider: Gavin Vaca Primary Care Provider: NEGRITA CARLTON Consulting Providers: Rosana Pizano Discharge Orders/Prescriptions Prescriptions: New ferrous sulfate 325 mg (65 mg iron) tablet 325 mg PO BID Qty: 1 0RF Rx Instructions: OBTAIN OVER THE COUNTER Continued folic acid 1 mg Tablet 1 mg PO DAILY multivitamin Capsule 1 cap PO DAILY trazodone 50 mg Tablet 100 mg PO QHS thiamine HCl (vitamin B1) [Vitamin B-1] 100 mg Tablet 100 mg PO DAILY cholecalciferol (vitamin D3) [Vitamin D3] 125 mcg (5,000 unit) Tablet 125 mcg PO DAILY magnesium 250 mg Tablet 250 mg PO DAILY ginkgo biloba 60 mg Capsule 60 mg PO DAILY Rx Instructions: give with meal/snack progesterone micronized 100 mg Capsule 500 mg PO QHS milk thistle 175 mg Capsule 175 mg PO DAILY Rx Instructions: give with meal/snack [id number]-[id number] (C-hung) 500-400-667 mg-mg-unit Capsule 1 cap PO DAILY duloxetine 60 mg capsule,delayed release(DR/EC) 60 mg PO BID lactulose 10 gram/15 mL (15 mL) solution 15 ml PO TID PRN (Reason: ammonia) cefdinir 300 mg capsule 300 mg PO Q12H Qty: 14 0RF mirabegron 50 mg tablet extended release 24 hr 50 mg PO DAILY Rx Instructions: WITH BREAKFAST calcium citrate-vitamin D3 [Calcium Citrate + D] 315 mg-5 mcg (200 unit) tablet 1 tab PO DAILY cholestyramine (with sugar) 4 gram powder in packet 1 ea PO BID PRN PRN (Reason: HIGH CHOLESTEROL) Rx Instructions: DISOLVE IN WATER AND TAKE 1 PACKET BY MOUTH TWICE DAILY testosterone 12.5 mg/ 1.25 gram (1 %) gel in metered-dose pump 1 pump transdermal DAILY tizanidine 4 mg capsule 4 mg PO QHS gabapentin 800 mg tablet 800 mg PO TID rifaximin 550 mg tablet 550 mg PO BID ascorbic acid (vitamin C) 500 mg tablet 500 mg PO DAILY cranberry 500 mg capsule 500 mg PO DAILY Rx Instructions: administer with a meal AZO D-Mannose 500 mg capsule 1,000 mg PO BID diphenhydramine HCl [Benadryl] 25 mg capsule 50 mg PO QHS methocarbamol 500 mg tablet 500 mg PO TID citalopram 20 mg tablet 20 mg PO DAILY gabapentin 300 mg capsule 600 mg PO Q12H estradiol 0.01 % (0.1 mg/gram) cream 1 vaginal hydroxyzine pamoate 25 mg capsule 25 mg PO Q12H PRN PRN (Reason: anxiety) Gemtesa 75 mg tablet 75 mg PO DAILY pantoprazole 40 mg tablet,delayed release (DR/EC) 40 mg PO DAILY Qty: 90 2RF nadolol 20 mg tablet 20 mg PO DAILY Qty: 30 11RF famotidine 40 mg tablet 40 mg PO QHS Qty: 90 5RF Referrals / Follow Up: Leodan Sarabia DO [Med Staff - Active Staff] - See Referral Note (IN 3-4 WEEKS) NEGRITA CARLTON NP-C [Primary Care Provider] - Within 1 Week (HAVE HER SCHEDULE A HIDA SCAN TO CHECK OUT YOUR GALLBLADDER FUNCTION) Disposition Disposition (needs filled in before D/C Order can be placed): Home, Self Care
--- NOTE | 2024-10-25 12:42 | DS.PCM_ITS ---
Providers Date of Admission: 10/23/24 Date of Discharge: 10/25/24 Primary Care Physician: NEGRITA CARLTON, TAMARA Consultations 10/23/24 18:40 Consult: Gastroenterology Routine Consulting Provider: Pauly Gastro[facility] Reason for Consult: new hgb of 7.1, unclear blood loss vs underproduction EMERGENT Consult: No MD Notified: Yes Date Notified: 10/23/24 Time Notified: 18:42 Method of Notification: Text Reason For Visit: ACUTE ON CHRONIC ANEMIA Diagnosis Discharge Diagnosis (1) Abdominal pain: Status: Acute Code(s): R10.9 - Unspecified abdominal pain Plan 1. Acute on chronic iron deficiency anemia-requiring blood transfusion-patient CBC will be rechecked tomorrow, the etiology of the anemia may be due to variceal bleeding and/or peptic ulcer disease. Gastroenterology will see the patient in consultation #2 right upper quadrant abdominal pain-etiology unclear, patient's CT of the abdomen pelvis showed gallstones and/or sludge in the gallbladder, patient does have severe splenomegaly. #3 cirrhosis of the liver secondary to alcohol use disorder-complicates care, management, recovery, and prognosis #4 pancytopenia-secondary to cirrhosis-labs will be monitored #5 alcoholism-patient has not drank in 3 years. Total clinical time spent by myself addressing the patient's medical issues, reviewing all of her data, and collaborating with patient's care team: 35 minutes Medications at Discharge Home Medications cholecalciferol (vitamin D3) 125 mcg (5,000 unit) tablet (Vitamin D3) 125 mcg PO DAILY supple 04/04/22 folic acid 1 mg tablet 1 mg PO DAILY 04/04/22 multivitamin 1 cap PO DAILY 04/04/22 thiamine HCl (vitamin B1) 100 mg tablet (Vitamin B-1) 100 mg PO DAILY 04/04/22 trazodone 50 mg tablet 100 mg PO QHS SLEEP 04/04/22 nadolol 20 mg tablet 20 mg PO DAILY see phy #30 tabs 03/11/23 pantoprazole 40 mg tablet,delayed release 40 mg PO DAILY #90 tabs 03/11/23 ginkgo biloba 60 mg capsule 60 mg PO DAILY 05/08/23 glucosamine 500 jp-opnjgubot-kfriqvie comp 400 mg-D3 667 unit-C-Mn cap (Ozipkoojubb-Sisapdqzdyb-I8(C-manganese)) 1 cap PO DAILY 05/08/23 magnesium 250 mg tablet 250 mg PO DAILY 05/08/23 milk thistle 175 mg capsule 175 mg PO DAILY 05/08/23 progesterone micronized 100 mg capsule 500 mg PO QHS 05/08/23 famotidine 40 mg tablet 40 mg PO QHS #90 tabs 06/11/23 duloxetine 60 mg capsule,delayed release 60 mg PO BID 07/07/23 lactulose 10 gram/15 mL (15 mL) oral solution 15 ml PO TID PRN ammonia 07/07/23 citalopram 20 mg tablet 20 mg PO DAILY 07/10/24 estradiol 0.01% (0.1 mg/gram) vaginal cream 1 vaginal suppl 07/10/24 gabapentin 300 mg capsule 600 mg PO Q12H 07/10/24 hydroxyzine pamoate 25 mg capsule 25 mg PO Q12H PRN PRN anxiety 07/10/24 methocarbamol 500 mg tablet 500 mg PO TID 07/10/24 vibegron 75 mg tablet (Gemtesa) 75 mg PO DAILY 07/10/24 cefdinir 300 mg capsule 300 mg PO Q12H antibiotic #14 caps 07/12/24 ascorbic acid (vitamin C) 500 mg tablet 500 mg PO DAILY 10/23/24 calcium 315 mg (as citrate)-vitamin D3 5 mcg (200 unit) tablet (Calcium Citrate + D) 1 tab PO DAILY 10/23/24 cholestyramine (with sugar) 4 gram powder for susp in a packet 1 ea PO BID PRN PRN HIGH CHOLESTEROL 10/23/24 cranberry 500 mg capsule 500 mg PO DAILY 10/23/24 d-mannose 500 mg capsule (AZO D-Mannose) 1,000 mg PO BID 10/23/24 diphenhydramine HCl 25 mg capsule (Benadryl) 50 mg PO QHS insom 10/23/24 gabapentin 800 mg tablet 800 mg PO TID 10/23/24 mirabegron 50 mg tablet,extended release 24 hr 50 mg PO DAILY 10/23/24 rifaximin 550 mg tablet 550 mg PO BID 10/23/24 testosterone 12.5 mg/1.25 gram per pump actuation (1%) transdermal gel 1 pump transdermal DAILY 10/23/24 tizanidine 4 mg capsule 4 mg PO QHS 10/23/24 ferrous sulfate 325 mg (65 mg iron) tablet 325 mg PO BID #1 TAB 10/25/24 Hospital Course Operations None Procedures Blood transfusion Summary of Care Provided Minutes Spent on Discharge: 32 Hospital Course: This 54-year-old white female was seen in the emergency room at [facility] after being instructed to go there due to abnormal outpatient labs indicating anemia. Patient's CBC was rechecked in the emergency room and her hemoglobin was 7.1. Patient was pancytopenic, she has a history of liver cirrhosis from alcohol ingestion. Patient has been sober for approximately 3 years. Patient was admitted to [place] [id number] and given 2 units of packed red blood cells, iron studies obtained showed the patient's ferritin to be low but her iron level was normal. This was felt to be in keeping with iron deficiency anemia and she was given IV iron infusion during her hospital stay. Patient was seen in consultation by gastroenterology who did not feel the patient needed to undergo endoscopy. On 10/25/2024, patient was seen and examined: On examination she appeared in good health and spirits, she does not appear to be in any distress. Vital signs as documented. Skin warm and dry and without overt rashes. Neck without JVD, thyroid appears normal, trachea is midline, neck is supple. Lungs clear, normal air movement was noted. Heart exam notable for regular rhythm, normal sounds and absence of murmurs, rubs or gallops. Abdomen unremarkable and without evidence of organomegaly, masses, or abdominal aortic enlargement, bowel sounds are present in all 4 quadrants, no abdominal tenderness was noted. Extremities nonedematous, no cyanosis was noted, no clubbing was noted. Neuro: Cranial nerves II through XII are grossly intact, no focal motor deficits were noted, sensation to light touch and pinprick is intact, motor exam 5/5 throughout. Psych: Patient is alert and oriented x3, she does not appear anxious or depressed, she does not appear agitated. Patient was discharged home in stable condition on 10/25/2024. Weight / BMI Weight Weight: 95.5 kg Body Mass Index (BMI) 30.1 ABG / Lab / Microbiology Data 10/25/24 07:00 10/24/24 05:25 Laboratory: Laboratory Results - last 24 hr 10/25/24 07:00: WBC 3.0 L, RBC 3.46 L, Hgb 8.4 L, Hct 28.2 L, MCV 81.5, MCH 24.3 L, MCHC 29.8 L, RDW Std Deviation 48.9 H, RDW Coeff of Pepito 16.4 H, Plt Count 49 L*, MPV TNP, Immature Gran % (Auto) 0.700, Neut % (Auto) 55.7, Lymph % (Auto) 32.8, [place] % (Auto) 8.8, Eos % (Auto) 1.7, Baso % (Auto) 0.3, Absolute Neuts (auto) 1.7 L, Absolute Lymphs (auto) 0.97, Nucleated RBC % 0 Microbiology: Microbiology 10/23/24 21:40 Stool Stool Occult Blood (GERARDO) - Final Occult Blood Positive 10/23/24 12:58 Stool Stool Occult Blood (GERARDO) - Final D/C Instructions Discharge Diet: No restrictions Weight Bearing Status: Full weight bearing DC O2, CPAP, BIPAP Needs Additional Home O2 Discharge instructions: No DC home with Oxygen: No Meaningful Use Info Meaningful Use Meaningful Use Diagnoses (Choose all that apply): None applicable Ischemic Stroke Statin Dosing Therapy Reference: STATIN DOSE THERAPY REFERENCE: * Patients > 75 years receive moderate or high dose statin therapy. * Patients 75 years or YOUNGER should receive HIGH intensity statin dose unless contraindicated. You will be required to document reason for non-treatment if statin daily dose does not meet guidelines. HIGH DOSE STATIN THERAPY DAILY Atorvastatin > than or = to 40 mg Rosuvastatin > than or = to 20 mg Amlodipine + Atorvastatin > than or = to 2.5/40 mg Ezetimibe + Simvastatin 10/80 mg Simvastatin 80mg Discharge Plan Admission Admit Date/Time: 10/23/24 17:37 Primary Reason for Your Visit: IRON DEFICIENCY ANEMIA Attending Provider: Gavin Vaca Primary Care Provider: NEGRITA CARLTON Consulting Providers: Rosana Pizano Discharge Orders/Prescriptions Prescriptions: New ferrous sulfate 325 mg (65 mg iron) tablet 325 mg PO BID Qty: 1 0RF Rx Instructions: OBTAIN OVER THE COUNTER Continued folic acid 1 mg Tablet 1 mg PO DAILY multivitamin Capsule 1 cap PO DAILY trazodone 50 mg Tablet 100 mg PO QHS thiamine HCl (vitamin B1) [Vitamin B-1] 100 mg Tablet 100 mg PO DAILY cholecalciferol (vitamin D3) [Vitamin D3] 125 mcg (5,000 unit) Tablet 125 mcg PO DAILY magnesium 250 mg Tablet 250 mg PO DAILY ginkgo biloba 60 mg Capsule 60 mg PO DAILY Rx Instructions: give with meal/snack progesterone micronized 100 mg Capsule 500 mg PO QHS milk thistle 175 mg Capsule 175 mg PO DAILY Rx Instructions: give with meal/snack Wqlnpsfacqh-Viuied-B6 (C-hung) 500-400-667 mg-mg-unit Capsule 1 cap PO DAILY duloxetine 60 mg capsule,delayed release(DR/EC) 60 mg PO BID lactulose 10 gram/15 mL (15 mL) solution 15 ml PO TID PRN (Reason: ammonia) cefdinir 300 mg capsule 300 mg PO Q12H Qty: 14 0RF mirabegron 50 mg tablet extended release 24 hr 50 mg PO DAILY Rx Instructions: WITH BREAKFAST calcium citrate-vitamin D3 [Calcium Citrate + D] 315 mg-5 mcg (200 unit) tablet 1 tab PO DAILY cholestyramine (with sugar) 4 gram powder in packet 1 ea PO BID PRN PRN (Reason: HIGH CHOLESTEROL) Rx Instructions: DISOLVE IN WATER AND TAKE 1 PACKET BY MOUTH TWICE DAILY testosterone 12.5 mg/ 1.25 gram (1 %) gel in metered-dose pump 1 pump transdermal DAILY tizanidine 4 mg capsule 4 mg PO QHS gabapentin 800 mg tablet 800 mg PO TID rifaximin 550 mg tablet 550 mg PO BID ascorbic acid (vitamin C) 500 mg tablet 500 mg PO DAILY cranberry 500 mg capsule 500 mg PO DAILY Rx Instructions: administer with a meal AZO D-Mannose 500 mg capsule 1,000 mg PO BID diphenhydramine HCl [Benadryl] 25 mg capsule 50 mg PO QHS methocarbamol 500 mg tablet 500 mg PO TID citalopram 20 mg tablet 20 mg PO DAILY gabapentin 300 mg capsule 600 mg PO Q12H estradiol 0.01 % (0.1 mg/gram) cream 1 vaginal hydroxyzine pamoate 25 mg capsule 25 mg PO Q12H PRN PRN (Reason: anxiety) Gemtesa 75 mg tablet 75 mg PO DAILY pantoprazole 40 mg tablet,delayed release (DR/EC) 40 mg PO DAILY Qty: 90 2RF nadolol 20 mg tablet 20 mg PO DAILY Qty: 30 11RF famotidine 40 mg tablet 40 mg PO QHS Qty: 90 5RF Referrals / Follow Up: Friend,DO Leodan [Med Staff - Active Staff] - See Referral Note (IN 3-4 WEEKS) NEGRITA CARLTON, COOKIE BREAKER-C [Primary Care Provider] - Within 1 Week (HAVE HER SCHEDULE A HIDA SCAN TO CHECK OUT YOUR GALLBLADDER FUNCTION) Disposition Disposition (needs filled in before D/C Order can be placed): Home, Self Care
[2024-10-26 14:37] LABS: Pathologist Review Reviewed
[2024-10-26 14:41] LABS: Pathologist Review Reviewed
== END 2024-10-25 15:12 | disposition home or self-care (01) | DRG 433 ==
LOC: ED 16:21 → MS3 18:25
PROVIDERS: Physician Assistant; Admitting Provider Internal Medicine; Emergency Provider Emergency Medicine; PCP Nurse Practitioner Family; Visit Provider Internal Medicine
DX: K74.60 Unspecified cirrhosis of liver (principal); I85.00 Esophageal varices without bleeding; D61.818 Other pancytopenia; K76.6 Portal hypertension; K26.9 Duodenal ulcer, unspecified as acute or chronic, without hemorrhage or perforation; D50.9 Iron deficiency anemia, unspecified; F32.A Depression, unspecified; F10.11 Alcohol abuse, in remission; K80.20 Calculus of gallbladder without cholecystitis without obstruction; F41.9 Anxiety disorder, unspecified; G89.29 Other chronic pain; N95.0 Postmenopausal bleeding; R16.1 Splenomegaly, not elsewhere classified
CPT/HCPCS: 36415; 74177; 80053; 81001; 82274; 82728; 83540; 83550; 85025; 85045; 85610; 86850; 86900; 86901; 86920; 86922; 99283; J7050; P9016; Q9967; A4216; J2916

== ENCOUNTER 2024-12-07 01:36 | Emergency (ER) | payer OTHER, SELFPAY ==
[2024-12-07 01:37] VITALS: BP 113/68; PULSE 68; RESP 16; TEMP 36.5; O2SAT 95; BMI 30.1
[2024-12-07 02:16] LABS: Absolute Lymphocyte Count 0.97 X10^3/uL (0.83-4.51); Basophil# 0.01 X10^3/uL; Basophil% 0.3 % (0-1); Eosinophil# 0.03 X10^3/uL; Eosinophils% 0.9 % (0-5); Hematocrit 32.1 % (37-47); Hemoglobin 10.2 g/dL (12.0-15.0); Lymphocyte # 0.97 X10^3/ul (0.83-4.51); Lymphocyte % 29.8 % (19-41); Mean Corp Hgb Conc 31.8 g/dL (32-36); Mean Corpuscular Hgb 28.5 pg (27.0-32.0); Mean Corpuscular Volume 89.7 fL (81-99); Mean Platelet Vol. 11.3 fl (6.2-12.0); Monocyte# 0.27 X10^3/uL; Monocyte% 8.3 % (0-10); NRBC Flagged by Analyzer 0 % (0-5); Neutrophil # 1.97 X10^3/uL (2.7-7.7); Neutrophil % 60.4 % (47-70); POSITIVE COUNT YES; POSITIVE MORPHOLOGY YES; Platelet Count 52 K/mm3 (150-450); RBC Distribution Width CV 20.3 % (11.6-14.6); RBC Distribution Width SD 66.4 fl (35.1-43.9); Red Blood Count 3.58 M/mm3 (4.2-5.4); White Blood Count 3.3 K/mm3 (4.4-11.0)
[2024-12-07 02:18] LABS: Differential Indicated SCAN CRITERIA MET
--- NOTE | 2024-12-07 02:20 | EDS_ITS ---
HPI History of Present Illness Chief Complaint: Abd Pain Informant: patient and spouse/S.O. Narrative Narrative: Patient is a 54-year-old female with past medical history of iron deficiency anemia as well as cirrhosis secondary to history of alcohol abuse. Patient reports that she has had CT scans over the last few months secondary to recurrent abdominal pain and was found to have gallstones and/or sludge. She reports that she made an appointment to have a HIDA scan performed to further evaluate her gallbladder but that her insurance changed at the beginning of the new year and she can no longer have the study done that was set up prior to insurance change. This evening she states she drank a smoothie made with yogurt and then had a peanut butter sandwich. A few hours later began with pain in the right upper quadrant with nausea. She states that the pain is very similar to the previous bouts of abdominal pain she is experienced but she felt this 1 was more intense in severity and secondary to this comes in for evaluation [facility] Medical History Rash History of ulceration Chronic pain Non-smoker Neuropathy Wears glasses Post-menopausal Anxiety Alcohol use Anemia Migraine headache Syncope Gastric reflux Non-smoker History of pain when walking Leg cramps History of edema Cardiology follow-up encounter History of Clostridium difficile infection Splenomegaly Abnormal liver function test Cirrhosis of liver Wernickes encephalopathy Alcoholic hepatitis Home Medications ?Medication ?Instructions ?Recorded ?Last Taken ?Type cholecalciferol (vitamin D3) 125 125 mcg PO DAILY supple 04/04/22 Unknown History mcg (5,000 unit) tablet (Vitamin D3) folic acid 1 mg tablet 1 mg PO DAILY 04/04/22 Unknown History multivitamin 1 cap PO DAILY 04/04/22 Unknown History thiamine HCl (vitamin B1) 100 mg 100 mg PO DAILY 04/04/22 Unknown History tablet (Vitamin B-1) trazodone 50 mg tablet 200 mg PO QHS SLEEP 04/04/22 Unknown History nadolol 20 mg tablet 20 mg PO DAILY see phy #30 tabs 03/11/23 Unknown Rx pantoprazole 40 mg tablet,delayed 40 mg PO DAILY #90 tabs 03/11/23 Unknown Rx release ginkgo biloba 60 mg capsule 60 mg PO DAILY 05/08/23 Unknown History glucosamine 500 1 cap PO DAILY 05/08/23 Unknown History fa-wzvrnprss-vxhzwzke comp 400 mg-D3 667 unit-C-Mn cap (Venuspfdjca-Bdevytclbvp-G9(C-manganese)) magnesium 250 mg tablet 250 mg PO DAILY 05/08/23 Unknown History milk thistle 175 mg capsule 175 mg PO DAILY 05/08/23 Unknown History progesterone micronized 100 mg 500 mg PO QHS 05/08/23 Unknown History capsule famotidine 40 mg tablet 40 mg PO QHS #90 tabs 06/11/23 Unknown Rx duloxetine 60 mg capsule,delayed 60 mg PO BID 07/07/23 Unknown History release lactulose 10 gram/15 mL (15 mL) 15 ml PO TID PRN ammonia 07/07/23 Unknown History oral solution citalopram 20 mg tablet 20 mg PO DAILY 07/10/24 Unknown History estradiol 0.01% (0.1 mg/gram) 1 appful vaginal QHS suppl 07/10/24 Unknown History vaginal cream hydroxyzine pamoate 25 mg capsule 25 mg PO BID anxiety 07/10/24 Unknown History methocarbamol 500 mg tablet 500 mg PO TID PRN pain 07/10/24 Unknown History vibegron 75 mg tablet (Gemtesa) 75 mg PO DAILY 07/10/24 Unknown History ascorbic acid (vitamin C) 500 mg 500 mg PO DAILY 10/23/24 Unknown History tablet calcium 315 mg (as 1 tab PO DAILY 10/23/24 Unknown History citrate)-vitamin D3 5 mcg (200 unit) tablet (Calcium Citrate + D) cholestyramine (with sugar) 4 gram 1 ea PO BID PRN PRN HIGH 10/23/24 Unknown History powder for susp in a packet CHOLESTEROL cranberry 500 mg capsule 500 mg PO DAILY 10/23/24 Unknown History d-mannose 500 mg capsule (AZO 1,000 mg PO BID 10/23/24 Unknown History D-Mannose) diphenhydramine HCl 25 mg capsule 50 mg PO QHS insom 10/23/24 Unknown History (Benadryl) gabapentin 800 mg tablet 800 mg PO TID 10/23/24 Unknown History mirabegron 50 mg tablet,extended 50 mg PO DAILY 10/23/24 Unknown History release 24 hr rifaximin 550 mg tablet 550 mg PO BID 10/23/24 Unknown History testosterone 12.5 mg/1.25 gram per 1 pump transdermal DAILY 10/23/24 Unknown History pump actuation (1%) transdermal gel tizanidine 4 mg capsule 4 mg PO QHS 10/23/24 Unknown History ferrous sulfate 325 mg (65 mg 325 mg PO BID #1 TAB 10/25/24 Unknown Rx iron) tablet oxycodone 5 mg tablet 5 mg PO Q6H PRN pain 5 days #20 12/07/24 Unknown Rx tabs Allergy/AdvReac Type Severity Reaction Status Date / Time acetaminophen AdvReac Intermediate LIVER Verified 10/23/24 11:56 ISSUES ibuprofen AdvReac Intermediate LIVER Verified 10/23/24 11:56 ISSUES Family History Mother Dementia Father Diabetes Surgical History History of esophagogastroduodenoscopy (EGD) History of liver biopsy History of tonsillectomy and adenoidectomy Social History household members: spouse Smoking Status: Never smoker alcohol intake: former year quit: 2020 substance use type: does not use ROS ROS ED Constitutional Constitutional ED: Denies chills or fever(s) Eyes Eyes: Denies change in vision ENT ENT ED: Denies rhinorrhea or sore throat Cardiovascular Cardiovascular: Denies chest pain Respiratory/Chest Respiratory/Chest: Denies cough or dyspnea Gastrointestinal Gastrointestinal: Reports abdominal pain and nausea; Denies constipation, diarrhea or vomiting Genitourinary Genitourinary ED: Denies dysuria or hematuria Musculoskeletal Musculoskeletal: Denies back pain Integumentary Denies rash Neurologic Neurologic: Denies headache(s) Hematologic/Lymphatic Hematologic/Lymphatic: Reports easy bleeding and easy bruising EXAM Physical Exam Const Vital Signs: 12/07/24 01:37 Temperature 97.7 F L Temperature Source Oral Pulse Rate 68 Respiratory Rate 16 Blood Pressure 113/68 Blood Pressure Mean 83 Pulse Ox 95 Oxygen Delivery Method Room Air Positive well nourished, well developed and obese General Appearance ED: well developed and pallor Nutritional Appearance: obese HEENT Reports moist mucous membranes HEENT Narrative: No tongue or lip swelling no oral lesions no airway edema or compromise No secondary findings in the posterior pharynx to suggest infection Eyes PERRL and EOMs intact bilaterally General Eye ED: Negative for pale conjunctiva or scleral icterus Neck supple and no JVD Neck Narrative: No nuchal rigidity or meningeal signs Resp normal respiratory effort and clear to auscultation bilaterally Cardio regular rate and regular rhythm Rate: other Other Details: Radial and carotid pulses are equal and symmetric GI non-distended and no masses GI Narrative: Abdomen is soft and nondistended with normal active bowel sounds. There is pain on palpation in the right upper quadrant without voluntary guarding or rigidity. Negative Puente sign. No pulsatile mass. No fluid wave. Auscultation: normoactive bowel sounds Palpation: soft Extremity normal to inspection Extremity Narrative: No asymmetric edema no pitting edema negative Homans' sign bilaterally Neuro oriented x3, CN's II-XII intact bilaterally and no sensory deficits noted Sensorium / Orientation: alert Motor Exam: strength 5/5 throughout Psych mental status grossly normal Skin no rashes or lesions noted Skin Narrative: Skin is slightly pale in color but capillary refill remains less than 3 seconds No jaundice noted despite history of cirrhosis and previous alcohol abuse General Skin Exam: pallor; Negative for jaundice MDM MDM MDM Narrative Medical decision making narrative: Patient arrived to the ER with stable vitals. She reported that she has been having intermittent abdominal pain for the past few months. There is concern it is gallbladder related and her family doctor had ordered a HIDA scan which unfortunately she could not have performed. This evening she did admit to eating yogurt and peanut butter which are higher in fat content and could have led to a gallbladder event. In order to ensure she is not developing acute cholecystitis or spontaneous bacterial peritonitis or pancreatitis I did elect to perform basic laboratory studies. Patient's white count is at her baseline which goes against infectious process and there is no left shift. Lipase is normal going against acute pancreatitis and her liver enzymes are at their baseline going against worsening cirrhosis or choledocholithiasis. I do not feel the need for repeat CT scan as chart review reveals patient had a CT scan of her abdomen pelvis in June and October 2024 both showing gallstones with sludge but no signs of acute infection. Therefore I feel she would benefit from an ultrasound and/or HIDA scan but as her labs are at her baseline and her pain controlled I do not feel needs to be done emergently. Therefore I will start the patient on pain medication and gave her an order form to have an outpatient ultrasound obtained. However with resolution of her pain with treatment in the ER laboratory studies that have remained at her baseline and stable vitals there is no need for further workup and she is otherwise safe for discharge History & Record Review Discussion w/independent historian: Patient and Significant other Lab Data Attestation: I reviewed the patient's lab results. Labs: Laboratory Results - last 24 hr 12/07/24 01:47 WBC 3.3 L RBC 3.58 L Hgb 10.2 L Hct 32.1 L MCV 89.7 MCH 28.5 MCHC 31.8 L RDW Std Deviation 66.4 H RDW Coeff of Pepito 20.3 H Plt Count 52 L MPV 11.3 Immature Gran % (Auto) 0.300 Neut % (Auto) 60.4 Lymph % (Auto) 29.8 [place] % (Auto) 8.3 Eos % (Auto) 0.9 Baso % (Auto) 0.3 Absolute Neuts (auto) 2.0 Absolute Lymphs (auto) 0.97 Nucleated RBC % 0 Platelet Estimate MOD DEC Anisocytosis 1+ Sodium 139 Potassium 3.9 Chloride 108 H Carbon Dioxide 26.0 Anion Gap 4 L BUN 16 Creatinine 0.98 Estim Creat Clear Calc 82.03 Est GFR (MDRD) Af Amer 76 Est GFR (MDRD) Non-Af 63 BUN/Creatinine Ratio 16.3 Glucose 126 H Calcium 9.3 Total Bilirubin 1.00 Direct Bilirubin 0.21 AST 33 ALT 22 Alkaline Phosphatase 58 Total Protein 7.5 Albumin 3.5 Globulin 4.0 Lipase 27 Discharge Plan Triage Chief Complaint: Abd Pain ED Provider: Tree Mitchell Dx/Rx/DC Orders Clinical Impression: Right upper quadrant abdominal pain, Cirrhosis of liver, Cholelithiasis, Thrombocytopenia Instructions: ED Gallstones with Biliary Colic Prescriptions: New oxycodone 5 mg tablet 5 mg PO Q6H PRN (Reason: pain) 5 Days Qty: 20 0RF No Action folic acid 1 mg Tablet 1 mg PO DAILY multivitamin Capsule 1 cap PO DAILY trazodone 50 mg Tablet 200 mg PO QHS thiamine HCl (vitamin B1) [Vitamin B-1] 100 mg Tablet 100 mg PO DAILY cholecalciferol (vitamin D3) [Vitamin D3] 125 mcg (5,000 unit) Tablet 125 mcg PO DAILY magnesium 250 mg Tablet 250 mg PO DAILY ginkgo biloba 60 mg Capsule 60 mg PO DAILY Rx Instructions: give with meal/snack progesterone micronized 100 mg Capsule 500 mg PO QHS milk thistle 175 mg Capsule 175 mg PO DAILY Rx Instructions: give with meal/snack Oofxduedxsj-Jxnepu-H8 (C-hung) 500-400-667 mg-mg-unit Capsule 1 cap PO DAILY duloxetine 60 mg capsule,delayed release(DR/EC) 60 mg PO BID lactulose 10 gram/15 mL (15 mL) solution 15 ml PO TID PRN (Reason: ammonia) mirabegron 50 mg tablet extended release 24 hr 50 mg PO DAILY Rx Instructions: WITH BREAKFAST calcium citrate-vitamin D3 [Calcium Citrate + D] 315 mg-5 mcg (200 unit) tablet 1 tab PO DAILY cholestyramine (with sugar) 4 gram powder in packet 1 ea PO BID PRN PRN (Reason: HIGH CHOLESTEROL) Rx Instructions: DISOLVE IN WATER AND TAKE 1 PACKET BY MOUTH TWICE DAILY testosterone 12.5 mg/ 1.25 gram (1 %) gel in metered-dose pump 1 pump transdermal DAILY tizanidine 4 mg capsule 4 mg PO QHS gabapentin 800 mg tablet 800 mg PO TID rifaximin 550 mg tablet 550 mg PO BID ascorbic acid (vitamin C) 500 mg tablet 500 mg PO DAILY cranberry 500 mg capsule 500 mg PO DAILY Rx Instructions: administer with a meal AZO D-Mannose 500 mg capsule 1,000 mg PO BID diphenhydramine HCl [Benadryl] 25 mg capsule 50 mg PO QHS ferrous sulfate 325 mg (65 mg iron) tablet 325 mg PO BID Qty: 1 0RF Rx Instructions: OBTAIN OVER THE COUNTER methocarbamol 500 mg tablet 500 mg PO TID PRN (Reason: pain) citalopram 20 mg tablet 20 mg PO DAILY estradiol 0.01 % (0.1 mg/gram) cream 1 appful vaginal QHS hydroxyzine pamoate 25 mg capsule 25 mg PO BID Gemtesa 75 mg tablet 75 mg PO DAILY pantoprazole 40 mg tablet,delayed release (DR/EC) 40 mg PO DAILY Qty: 90 2RF nadolol 20 mg tablet 20 mg PO DAILY Qty: 30 11RF famotidine 40 mg tablet 40 mg PO QHS Qty: 90 5RF Other Ambulatory Orders: Gallbladder (Routine) Facility: [facility] - Location: [facility] Ordered By: Dr. Tree Mitchell Primary Care Provider: NEGRITA CARLTON Referrals: Sedrick Patel MD [Med Staff - Active Staff] - NOLING,NEGRITA, EDITOR IN CHIEF-C [Primary Care Provider] - Activity Restrictions/Additional Instructions: Please obtain your outpatient gallbladder ultrasound as it is a better diagnostic study for gallbladder malfunction. If the gallbladder ultrasound does not reveal a cause of your pain you may need to follow-up with your family doctor and/or general surgery to discuss need for a HIDA scan. Avoid greasy fatty foods as this could stimulate a gallbladder attack and return to the ER should you have any further concerns Print Language: Greek Disposition Disposition: Home, Self Care
[2024-12-07 02:30] LABS: AST(SGOT) 33 U/L (15-37); Alanine Aminotransfer ALT/SGPT 22 U/L (13-56); Albumin, Serum 3.5 g/dL (3.2-5.0); Alkaline Phosphatase 58 U/L (45-117); Anion Gap 4 (5-15); BUN 16 mg/dL (7-18); BUN/Creat Ratio 16.3 RATIO (10-20); Bilirubin, Direct 0.21 mg/dL (0.00-0.30); Calcium,Total 9.3 mg/dL (8.5-10.1); Chloride 108 mmol/L (98-107); Creatinine, Serum 0.98 mg/dL (0.55-1.02); EST Glomerular Filtration Rate 63 mL/min (>60); Est Glom Filt Rate - Afr Amer 76 mL/min (>60); Estimated Creatinine Clearance 82.03 ml/min; Glucose 126 mg/dL (74-106); Lipase 27 U/L (13-75); Potassium 3.9 mmol/L (3.5-5.1); Protein, Total 7.5 g/dL (6.4-8.2); Sodium Level 139 mmol/L (136-145)
[2024-12-07] MEDS: Ondansetron 4 MG/2 ML Vial IV (02:36)
[2024-12-07] MEDS: 0.9% Normal Saline (1000mL) 1,000 ML 999 ML IV (02:36)
[2024-12-07] MEDS: HYDROmorphone 1 MG/ML Syringe IV (02:37)
[2024-12-07 02:45] LABS: Anisocytosis 1+; Platelet Estimate MOD DEC (ADEQ)
[2024-12-07] MEDS: oxyCODONE 5 MG Tablet 10 MG PO (03:36)
[2024-12-07 03:44] VITALS: BP 136/79; PULSE 81; RESP 16; TEMP 36.6; O2SAT 99
== END 2024-12-07 03:45 | disposition home or self-care (01) ==
PROVIDERS: Emergency Provider Emergency Medicine; PCP Nurse Practitioner Family; Visit Provider Emergency Medicine
DX: K80.20 Calculus of gallbladder without cholecystitis without obstruction (principal); K70.30 Alcoholic cirrhosis of liver without ascites; D69.6 Thrombocytopenia, unspecified; K21.9 Gastro-esophageal reflux disease without esophagitis; F10.11 Alcohol abuse, in remission; Y90.9 Presence of alcohol in blood, level not specified; E66.9 Obesity, unspecified; Z68.30 Body mass index [BMI] 30.0-30.9, adult; Z79.899 Other long term (current) drug therapy
CPT/HCPCS: 80048; 80076; 83690; 85025; 96361; 96374; 96375; 99283; A4216; J2405

== ENCOUNTER → 2024-12-17 | Outpatient (CLI) | payer OTHER, SELFPAY ==
--- NOTE | 2024-12-17 07:15 | US_ITS ---
PROCEDURE: LIVER REASON FOR EXAM: Right upper quadrant pain COMPARISON: Correlation with CT examination dated 10/23/2024 FINDINGS: Liver: Heterogeneous and coarsened echogenicity. There is nodularity involving the surface of the liver. Right hepatic lobe measures 20.2 cm. No focal masses are identified. Gallbladder: Cholelithiasis and sludge. No gallbladder wall thickening or pericholecystic fluid. Negative ultrasonic Puente's sign. Common bile duct: Normal measuring 2.4 mm. Pancreas: Visualized portions are sonographically unremarkable. Right kidney measures 10.6 x 4.9 x 4.9 cm. Renal cortex measures 1.4 cm. No hydronephrosis of the right kidney. US/Liver IMPRESSION: 1. Cirrhotic appearing liver with hepatomegaly 2. Cholelithiasis and sludge. 3. CBD is within normal limits measuring 2.4 mm. 4. No hydronephrosis of the right kidney. Reading [facility]
== END | disposition home or self-care (01) ==
PROVIDERS: PCP Nurse Practitioner Family; Referring Provider Internal Medicine Gastroenterology; Visit Provider Internal Medicine Gastroenterology
DX: K76.82 Hepatic encephalopathy (principal)
CPT/HCPCS: 76705

== ENCOUNTER → 2024-12-24 | Outpatient (CLI) | payer OTHER, SELFPAY ==
--- NOTE | 2024-12-24 08:54 | NM_ITS ---
PROCEDURE: HEPATOBILLIARY IMAGING REASON FOR EXAM: Right upper quadrant abdominal pain. TECHNIQUE: Intravenous Choletec with planar imaging of the abdomen. RADIOPHARMACEUTICAL: 5.4 mCi of mebrofenin REASON FOR EXAM: Right upper quadrant pain. COMPARISON: None. FINDINGS: There is good uptake of the radiopharmaceutical by the liver. The gallbladder is not visualized up to 2 hours. Radiopharmaceutical is seen within the proximal small bowel. NM/Hepatobilliary Imaging IMPRESSION: Nonvisualization of the gallbladder up to 2 hours following the injection of th e radiopharmaceutical. Reading Location: [id number]
== END | disposition home or self-care (01) ==
LOC: NM 08:52
PROVIDERS: PCP Nurse Practitioner Family; Referring Provider Nurse Practitioner Family; Visit Provider Nurse Practitioner Family
DX: K82.8 Other specified diseases of gallbladder (principal); R10.11 Right upper quadrant pain
CPT/HCPCS: 78226; A9537

== ENCOUNTER 2025-02-07 21:32 | Emergency (ER) | payer OTHER, SELFPAY ==
[2025-02-07 21:33] VITALS: BP 170/143; PULSE 79; RESP 18; TEMP 36.1; O2SAT 98; BMI 31.8
--- NOTE | 2025-02-07 23:02 | EX.ED.UPPERE ---
HPI History of Present Illness HPI Narrative: Patient presents with right shoulder and arm pain that has been getting worse over the past few days. Patient states she went to urgent care today where they did an x-ray which was negative. Patient states was diagnosed with bursitis. Patient states her pain became worse tonight. Patient describes it as stabbing. Patient states it is worse whenever she touches the area. Patient states she has a history of neuropathy but states that her typical paresthesias are worse. Patient denies any trauma or injury. Chief Complaint: Upper Extremity Injury Onset/Context/Timing Onset: Days Context: Gradual Onset Timing: Continuous Quality of Pain: Stabbing Location: Right shoulder and upper arm Worsened by: Palpation and movement Relieved by: Nothing Associated Symptoms Associated Symptoms: Positive for Parasthesia; Negative for Weakness or Loss of Funtion [facility] Medical History Rash History of ulceration Chronic pain Non-smoker Neuropathy Wears glasses Post-menopausal Anxiety Alcohol use Anemia Migraine headache Syncope Gastric reflux Non-smoker History of pain when walking Leg cramps History of edema Cardiology follow-up encounter History of Clostridium difficile infection Splenomegaly Abnormal liver function test Cirrhosis of liver Wernickes encephalopathy Alcoholic hepatitis Home Medications ?Medication ?Instructions ?Recorded ?Last Taken ?Type cholecalciferol (vitamin D3) 125 125 mcg PO DAILY supple 04/04/22 Unknown History mcg (5,000 unit) tablet (Vitamin D3) folic acid 1 mg tablet 1 mg PO DAILY 04/04/22 Unknown History multivitamin 1 cap PO DAILY 04/04/22 Unknown History thiamine HCl (vitamin B1) 100 mg 100 mg PO DAILY 04/04/22 Unknown History tablet (Vitamin B-1) trazodone 50 mg tablet 200 mg PO QHS SLEEP 04/04/22 Unknown History nadolol 20 mg tablet 20 mg PO DAILY see phy #30 tabs 03/11/23 Unknown Rx pantoprazole 40 mg tablet,delayed 40 mg PO DAILY #90 tabs 03/11/23 Unknown Rx release ginkgo biloba 60 mg capsule 60 mg PO DAILY 05/08/23 Unknown History glucosamine 500 1 cap PO DAILY 05/08/23 Unknown History nh-nmssmyewb-lvielbfk comp 400 mg-D3 667 unit-C-Mn cap (Blfcsortcyu-Trzxofpfwzx-B8(C-manganese)) magnesium 250 mg tablet 250 mg PO DAILY 05/08/23 Unknown History milk thistle 175 mg capsule 175 mg PO DAILY 05/08/23 Unknown History progesterone micronized 100 mg 500 mg PO QHS 05/08/23 Unknown History capsule famotidine 40 mg tablet 40 mg PO QHS #90 tabs 06/11/23 Unknown Rx duloxetine 60 mg capsule,delayed 60 mg PO BID 07/07/23 Unknown History release lactulose 10 gram/15 mL (15 mL) 15 ml PO TID PRN ammonia 07/07/23 Unknown History oral solution citalopram 20 mg tablet 20 mg PO DAILY 07/10/24 Unknown History estradiol 0.01% (0.1 mg/gram) 1 appful vaginal QHS suppl 07/10/24 Unknown History vaginal cream hydroxyzine pamoate 25 mg capsule 25 mg PO BID anxiety 07/10/24 Unknown History methocarbamol 500 mg tablet 500 mg PO TID PRN pain 07/10/24 Unknown History vibegron 75 mg tablet (Gemtesa) 75 mg PO DAILY 07/10/24 Unknown History ascorbic acid (vitamin C) 500 mg 500 mg PO DAILY 10/23/24 Unknown History tablet calcium 315 mg (as 1 tab PO DAILY 10/23/24 Unknown History citrate)-vitamin D3 5 mcg (200 unit) tablet (Calcium Citrate + D) cholestyramine (with sugar) 4 gram 1 ea PO BID PRN PRN HIGH 10/23/24 Unknown History powder for susp in a packet CHOLESTEROL cranberry 500 mg capsule 500 mg PO DAILY 10/23/24 Unknown History d-mannose 500 mg capsule (AZO 1,000 mg PO BID 10/23/24 Unknown History D-Mannose) diphenhydramine HCl 25 mg capsule 50 mg PO QHS insom 10/23/24 Unknown History (Benadryl) gabapentin 800 mg tablet 800 mg PO TID 10/23/24 Unknown History mirabegron 50 mg tablet,extended 50 mg PO DAILY 10/23/24 Unknown History release 24 hr rifaximin 550 mg tablet 550 mg PO BID 10/23/24 Unknown History testosterone 12.5 mg/1.25 gram per 1 pump transdermal DAILY 10/23/24 Unknown History pump actuation (1%) transdermal gel tizanidine 4 mg capsule 4 mg PO QHS 10/23/24 Unknown History ferrous sulfate 325 mg (65 mg 325 mg PO BID #1 TAB 10/25/24 Unknown Rx iron) tablet oxycodone 5 mg tablet 5 mg PO Q6H PRN pain 5 days #20 12/07/24 Unknown Rx tabs oxycodone 5 mg tablet 5 mg PO Q6H PRN pain 3 days #12 02/08/25 Unknown Rx tabs Allergy/AdvReac Type Severity Reaction Status Date / Time acetaminophen AdvReac Intermediate LIVER Verified 02/07/25 21:33 ISSUES ibuprofen AdvReac Intermediate LIVER Verified 02/07/25 21:33 ISSUES Family History Mother Dementia Father Diabetes Surgical History History of esophagogastroduodenoscopy (EGD) History of liver biopsy History of tonsillectomy and adenoidectomy Social History household members: spouse Smoking Status: Never smoker alcohol intake: former year quit: 2020 substance use type: does not use ROS ROS ED Constitutional Constitutional ED: Denies chills or fever(s) Eyes Eyes: Denies blurry vision or change in vision ENT ENT ED: Denies rhinorrhea or sore throat Cardiovascular Cardiovascular: Denies chest pain or palpitations Respiratory/Chest Respiratory/Chest: Reports cough; Denies dyspnea Gastrointestinal Gastrointestinal: Denies nausea or vomiting Genitourinary Genitourinary ED: Denies dysuria or hematuria Musculoskeletal Musculoskeletal: Reports back pain and neck pain Integumentary Denies abscess or rash Neurologic Neurologic: Denies headache(s) or weakness Allergic/Immunologic Allergic/Immunologic ED: Denies mouth swelling or urticaria EXAM Physical Exam Const Vital Signs: 02/07/25 21:33 Temperature 96.9 F L Temperature Source Temporal Pulse Rate 79 Respiratory Rate 18 Blood Pressure 170/143 H Blood Pressure Mean 152 Pulse Ox 98 Positive well nourished and well developed General Appearance ED: well developed and NAD HEENT Reports moist mucous membranes Neck full ROM and supple Extremity Extremity Narrative: There is tenderness over the anterior aspect of the right shoulder. There is mild tenderness over the acromioclavicular joint. There is mild tenderness of the lateral aspect of the right shoulder. There is no deformity noted. There is also tenderness over the anterior aspect of the right upper arm. There is no erythema or warmth noted. There is no ecchymosis noted. Range of motion was limited in all motions of the right shoulder secondary to pain. Strength is 5/5 bilaterally in the upper extremities. There are no sensory deficits noted. Radial pulses are equal bilaterally. Neuro oriented x3, CN's II-XII intact bilaterally, moves all extremities, no focal motor deficits and no sensory deficits noted Sensorium / Orientation: alert Motor Exam: strength 5/5 throughout Psych mental status grossly normal MDM MDM MDM Narrative Medical decision making narrative: Differential diagnosis includes tendinitis, bursitis, degenerative arthritis, and referred pain from cholelithiasis. CBC will be obtained to assess for leukocytosis and anemia. Comprehensive metabolic profile will be obtained to assess for Paddock function, renal function, and electrolyte abnormality. Sed rate and CRP will be obtained to assess for inflammatory markers. Lab Data Attestation: I reviewed the patient's lab results. Lab results narrative: CBC was reviewed. White blood cell count was slightly low at 3.8. Hemoglobin was 10.5 and hematocrit was 32.8. Platelets were low at 48. These are consistent with previous results. Sed rate was reviewed and was normal at 13. Comprehensive metabolic profile was reviewed. Glucose was mildly elevated at 187. The remainder was essentially within normal limits. C-reactive protein was reviewed and was slightly elevated at 9.67. Treatment and Re-Evaluation Narrative: Patient was given a dose of oxycodone here. Patient was advised of her findings. Patient was having some improvement of her pain but still had persistent pain. Patient was advised to ice and elevate the right shoulder. Patient was instructed to follow-up with her primary care physician as scheduled. Patient was given a prescription for short course of oxycodone. Patient and spouse understood and were agreeable with the plan. All questions were answered. Discharge Plan Triage Chief Complaint: Upper Extremity Injury ED Provider: Gustavo Snyder Dx/Rx/DC Orders Clinical Impression: Pain of right shoulder region Instructions: ED Shoulder Pain, Uncertain Cause Prescriptions: New oxycodone 5 mg tablet 5 mg PO Q6H PRN (Reason: pain) 3 Days Qty: 12 0RF No Action folic acid 1 mg Tablet 1 mg PO DAILY multivitamin Capsule 1 cap PO DAILY trazodone 50 mg Tablet 200 mg PO QHS thiamine HCl (vitamin B1) [Vitamin B-1] 100 mg Tablet 100 mg PO DAILY cholecalciferol (vitamin D3) [Vitamin D3] 125 mcg (5,000 unit) Tablet 125 mcg PO DAILY magnesium 250 mg Tablet 250 mg PO DAILY ginkgo biloba 60 mg Capsule 60 mg PO DAILY Rx Instructions: give with meal/snack progesterone micronized 100 mg Capsule 500 mg PO QHS milk thistle 175 mg Capsule 175 mg PO DAILY Rx Instructions: give with meal/snack Bggzqisssfa-Ywxxlu-Y5 (C-hung) 500-400-667 mg-mg-unit Capsule 1 cap PO DAILY duloxetine 60 mg capsule,delayed release(DR/EC) 60 mg PO BID lactulose 10 gram/15 mL (15 mL) solution 15 ml PO TID PRN (Reason: ammonia) mirabegron 50 mg tablet extended release 24 hr 50 mg PO DAILY Rx Instructions: WITH BREAKFAST calcium citrate-vitamin D3 [Calcium Citrate + D] 315 mg-5 mcg (200 unit) tablet 1 tab PO DAILY cholestyramine (with sugar) 4 gram powder in packet 1 ea PO BID PRN PRN (Reason: HIGH CHOLESTEROL) Rx Instructions: DISOLVE IN WATER AND TAKE 1 PACKET BY MOUTH TWICE DAILY testosterone 12.5 mg/ 1.25 gram (1 %) gel in metered-dose pump 1 pump transdermal DAILY tizanidine 4 mg capsule 4 mg PO QHS gabapentin 800 mg tablet 800 mg PO TID rifaximin 550 mg tablet 550 mg PO BID ascorbic acid (vitamin C) 500 mg tablet 500 mg PO DAILY cranberry 500 mg capsule 500 mg PO DAILY Rx Instructions: administer with a meal AZO D-Mannose 500 mg capsule 1,000 mg PO BID diphenhydramine HCl [Benadryl] 25 mg capsule 50 mg PO QHS ferrous sulfate 325 mg (65 mg iron) tablet 325 mg PO BID Qty: 1 0RF Rx Instructions: OBTAIN OVER THE COUNTER oxycodone 5 mg tablet 5 mg PO Q6H PRN (Reason: pain) 5 Days Qty: 20 0RF methocarbamol 500 mg tablet 500 mg PO TID PRN (Reason: pain) citalopram 20 mg tablet 20 mg PO DAILY estradiol 0.01 % (0.1 mg/gram) cream 1 appful vaginal QHS hydroxyzine pamoate 25 mg capsule 25 mg PO BID Gemtesa 75 mg tablet 75 mg PO DAILY pantoprazole 40 mg tablet,delayed release (DR/EC) 40 mg PO DAILY Qty: 90 2RF nadolol 20 mg tablet 20 mg PO DAILY Qty: 30 11RF famotidine 40 mg tablet 40 mg PO QHS Qty: 90 5RF Primary Care Provider: NEGRITA CARLTON Referrals: NEGRITA CARLTON [facility] [Primary Care Provider] - Keep Sara appointment Print Language: Malay Disposition Disposition: Home, Self Care
[2025-02-07] MEDS: oxyCODONE 5 MG Tablet PO (23:08)
[2025-02-07 23:21] LABS: Absolute Lymphocyte Count 1.08 X10^3/uL (0.83-4.51); Absolute Neutrophil Count 2.4 X10^3/uL (2.0-7.7); Basophil# 0.01 X10^3/uL; Basophil% 0.3 % (0-1); Eosinophil# 0.03 X10^3/uL; Eosinophils% 0.8 % (0-5); Hematocrit 32.8 % (37-47); Hemoglobin 10.5 g/dL (12.0-15.0); Lymphocyte # 1.08 X10^3/ul (0.83-4.51); Lymphocyte % 28.2 % (19-41); Mean Corpuscular Volume 90.6 fL (81-99); Monocyte# 0.35 X10^3/uL; Monocyte% 9.1 % (0-10); NRBC Flagged by Analyzer 0 % (0-5); Neutrophil # 2.35 X10^3/uL (2.7-7.7); Neutrophil % 61.3 % (47-70); POSITIVE COUNT YES; RBC Distribution Width CV 15.8 % (11.6-14.6); RBC Distribution Width SD 52.2 fl (35.1-43.9); Red Blood Count 3.62 M/mm3 (4.2-5.4); White Blood Count 3.8 K/mm3 (4.4-11.0)
[2025-02-07 23:30] LABS: Differential Indicated SCAN CRITERIA MET; Platelet Count 48 K/mm3 (150-450)
[2025-02-07 23:34] LABS: Erythrocyte Sedimentation Rate 13 mm/hr (0-30)
[2025-02-08 00:10] LABS: Differential Comment SCANNED
[2025-02-08 00:11] LABS: Pathologist Review May foll; Platelet Estimate MOD DEC (ADEQ)
[2025-02-08 00:51] LABS: CRP 9.67 mg/L (0.0-3.0)
[2025-02-08 00:52] LABS: ALB/GLOB Ratio 1.3 RATIO (0.9-2.4); AST(SGOT) 31 U/L (<=31); Alanine Aminotransfer ALT/SGPT 16 U/L (<=34); Albumin, Serum 3.8 g/dL (3.5-5.0); Alkaline Phosphatase 47 U/L (35-104); Anion Gap 13 (5-15); BUN 10 mg/dL (4-19); BUN/Creat Ratio 10.9 RATIO (10-20); Carbon Dioxide 19.3 mmol/L (21.0-32.0); Chloride 106 mmol/L (98-108); Creatinine, Serum 0.91 mg/dL (0.70-1.20); EST Glomerular Filtration Rate 75 (>60); Estimated Creatinine Clearance 87.92 ml/min (50-250); Globulin 2.9 g/dL (2.2-4.2); Glucose 187 mg/dL (70-99); Potassium 4.3 mmol/L (3.3-5.1); Protein, Total 6.7 g/dL (5.9-8.4); Sodium Level 137 mmol/L (133-145)
[2025-02-08 01:21] VITALS: BP 97/69; PULSE 65; RESP 16; TEMP 36.6; O2SAT 96
== END 2025-02-08 01:21 | disposition home or self-care (01) ==
PROVIDERS: Emergency Provider Emergency Medicine; PCP Nurse Practitioner Family; Visit Provider Emergency Medicine
DX: M25.511 Pain in right shoulder (principal)
CPT/HCPCS: 80053; 85025; 85652; 86140; 99282; A4216

== ENCOUNTER 2025-05-15 02:42 | Emergency (ER) | payer OTHER, SELFPAY ==
[2025-05-15 02:42] VITALS: BP 128/91; PULSE 73; RESP 16; TEMP 36.6; O2SAT 100; BMI 32.8
--- NOTE | 2025-05-15 02:50 | EDS_ITS ---
HPI History of Present Illness Chief Complaint: Chest Pain [facility] Medical History Rash History of ulceration Chronic pain Non-smoker Neuropathy Wears glasses Post-menopausal Anxiety Alcohol use Anemia Migraine headache Syncope Gastric reflux Non-smoker History of pain when walking Leg cramps History of edema Cardiology follow-up encounter History of Clostridium difficile infection Splenomegaly Abnormal liver function test Cirrhosis of liver Wernickes encephalopathy Alcoholic hepatitis Home Medications ?Medication ?Instructions ?Recorded ?Last Taken ?Type cholecalciferol (vitamin D3) 125 125 mcg PO DAILY supp le 04/04/22 Unknown History mcg (5,000 unit) tablet (Vitamin D3) folic acid 1 mg tablet 1 mg PO DAILY 04/04/22 Unkno wn History multivitamin 1 cap PO DAILY 04/04/22 Unkn own History thiamine HCl (vitamin B1) 100 mg 100 mg PO DAILY 04/04 Unknown History tablet (Vitamin B-1) nadolol 20 mg tablet 20 mg PO DAILY see phy #30 t abs 03/11/23 Unknown Rx pantoprazole 40 mg tablet,delayed 40 mg PO DAILY #90 t abs 03/11/23 Unknown Rx release ginkgo biloba 60 mg capsule 60 mg PO DAILY 05/08/23 Un known History glucosamine 500 1 cap PO DAILY 05/08/23 Unkn own History eo-ccsurlopl-pwiywlsb comp 400 mg-D3 667 unit-C-Mn cap (Elgiwfuvtel-Hnusjjrtneu-B2(C-manganese) ) magnesium 250 mg tablet 250 mg PO DAILY 05/08/23 Unk nown History milk thistle 175 mg capsule 175 mg PO DAILY 05/08/23 U nknown History progesterone micronized 100 mg 500 mg PO QHS 05/08/23 Unknown History capsule duloxetine 60 mg capsule,delayed 60 mg PO BID 07/07/23 Unknown History release lactulose 10 gram/15 mL (15 mL) 15 ml PO TID PRN jesus ia 07/07/23 Unknown History oral solution citalopram 20 mg tablet 20 mg PO DAILY 07/10/24 Unkn own History estradiol 0.01% (0.1 mg/gram) 1 appful vaginal QHS sup pl 07/10/24 Unknown History vaginal cream hydroxyzine pamoate 25 mg capsule 25 mg PO BID anxiety 07/10/24 Unknown History methocarbamol 500 mg tablet 500 mg PO TID PRN pain Unknown History ascorbic acid (vitamin C) 500 mg 500 mg PO DAILY 10/23 Unknown History tablet calcium 315 mg (as 1 tab PO DAILY 10/23/24 Unkn own History citrate)-vitamin D3 5 mcg (200 unit) tablet (Calcium Citrate + D) cranberry 500 mg capsule 500 mg PO DAILY 10/23/24 Unk nown History d-mannose 500 mg capsule (AZO 1,000 mg PO BID 10/23/24 Unknown History D-Mannose) diphenhydramine HCl 25 mg capsule 50 mg PO QHS insom 1 12/24/23 Unknown History (Benadryl) gabapentin 800 mg tablet 800 mg PO TID 10/23/24 Unkno wn History testosterone 12.5 mg/1.25 gram per 1 pump transdermal DAILY 10/23/24 Unknown History pump actuation (1%) transdermal gel tizanidine 4 mg capsule 4 mg PO QHS 10/23/24 Unknown History ferrous sulfate 325 mg (65 mg 325 mg PO BID #1 TAB 07/11 Unknown Rx iron) tablet aripiprazole 2 mg tablet 2 mg PO DAILY 05/15/25 Unkno wn History Allergy/AdvReac Type Severity Reaction Status Date / Time acetaminophen AdvReac Intermediate LIVER Verified 05/15/25 02:42 ISSUES ibuprofen AdvReac Intermediate LIVER Verified 05/15/25 02:42 ISSUES Family History Mother Dementia Father Diabetes Surgical History History of esophagogastroduodenoscopy (EGD) History of liver biopsy History of tonsillectomy and adenoidectomy Social History household members: spouse Smoking Status: Never smoker alcohol intake: former year quit: 2020 substance use type: does not use EXAM Physical Exam Const Vital Signs: 05/15/25 02:42 05/15/25 02:44 05/15/25 03:12 Temperature 97.9 F Temperature Source Temporal Pulse Rate 73 Respiratory Rate 16 Respiratory Effort Normal Blood Pressure 128/91 H Blood Pressure Mean 103 Pulse Ox 100 Oxygen Delivery Method Room Air 05/15/25 03:52 05/15/25 04:07 Temperature Temperature Source Pulse Rate 81 83 Respiratory Rate 17 Respiratory Effort Blood Pressure 103/71 Blood Pressure Mean 81 Pulse Ox 98 Oxygen Delivery Method MDM MDM MDM Narrative Medical decision making narrative: HISTORY OF PRESENT ILLNESS: Chief complaint: Chest pain 55-year-old female presents with stabbing chest pain under left breast 1 month also with dysuria. Pain is associated with food. The pain is not pleuritic. Not associate with exertion. No falls or trauma noted. No bleeding diathesis noted. No vomiting or diarrhea noted. No cough fever or chills The patient denies recent surgery in the last 4 weeks or immobilization in the last 3 days, denies previous diagnosis of DVT or PE, hemoptysis, unilateral leg swelling or malignancy with treatment the last 6 months or palliative. No estrogen use noted. Patient denies sudden onset of pain, no tearing sensation, no migratory symptoms, no new numbness, weakness or loss of sensation. Patient denies family history or personal history of Connective tissue disorders (Marfan's Syndrome, Taz Danlos etc) REVIEW OF SYSTEMS: Pertinent positives: Chest pain, dysuria Pertinent negatives: As per HPI PHYSICAL EXAM: Nursing triage notes reviewed, Vital signs reviewed Constitutional: please see mdm HENT: MMM
--- NOTE | 2025-05-15 02:50 | ED.VIS.CHEST ---
HPI History of Present Illness Chief Complaint: Chest Pain [facility] Medical History Rash History of ulceration Chronic pain Non-smoker Neuropathy Wears glasses Post-menopausal Anxiety Alcohol use Anemia Migraine headache Syncope Gastric reflux Non-smoker History of pain when walking Leg cramps History of edema Cardiology follow-up encounter History of Clostridium difficile infection Splenomegaly Abnormal liver function test Cirrhosis of liver Wernickes encephalopathy Alcoholic hepatitis Home Medications ?Medication ?Instructions ?Recorded ?Last Taken ?Type cholecalciferol (vitamin D3) 125 125 mcg PO DAILY supple 04/04/22 Unknown History mcg (5,000 unit) tablet (Vitamin D3) folic acid 1 mg tablet 1 mg PO DAILY 04/04/22 Unknown History multivitamin 1 cap PO DAILY 04/04/22 Unknown History thiamine HCl (vitamin B1) 100 mg 100 mg PO DAILY 04/04/22 Unknown History tablet (Vitamin B-1) nadolol 20 mg tablet 20 mg PO DAILY see phy #30 tabs 03/11/23 Unknown Rx pantoprazole 40 mg tablet,delayed 40 mg PO DAILY #90 tabs 03/11/23 Unknown Rx release ginkgo biloba 60 mg capsule 60 mg PO DAILY 05/08/23 Unknown History glucosamine 500 1 cap PO DAILY 05/08/23 Unknown History jw-qndnbutgj-asybpple comp 400 mg-D3 667 unit-C-Mn cap (Ohjnfuzxzvn-Xaxzaidzird-Q8(C-manganese)) magnesium 250 mg tablet 250 mg PO DAILY 05/08/23 Unknown History milk thistle 175 mg capsule 175 mg PO DAILY 05/08/23 Unknown History progesterone micronized 100 mg 500 mg PO QHS 05/08/23 Unknown History capsule duloxetine 60 mg capsule,delayed 60 mg PO BID 07/07/23 Unknown History release lactulose 10 gram/15 mL (15 mL) 15 ml PO TID PRN ammonia 07/07/23 Unknown History oral solution citalopram 20 mg tablet 20 mg PO DAILY 07/10/24 Unknown History estradiol 0.01% (0.1 mg/gram) 1 appful vaginal QHS suppl 07/10/24 Unknown History vaginal cream hydroxyzine pamoate 25 mg capsule 25 mg PO BID anxiety 07/10/24 Unknown History methocarbamol 500 mg tablet 500 mg PO TID PRN pain 07/10/24 Unknown History ascorbic acid (vitamin C) 500 mg 500 mg PO DAILY 10/23/24 Unknown History tablet calcium 315 mg (as 1 tab PO DAILY 10/23/24 Unknown History citrate)-vitamin D3 5 mcg (200 unit) tablet (Calcium Citrate + D) cranberry 500 mg capsule 500 mg PO DAILY 10/23/24 Unknown History d-mannose 500 mg capsule (AZO 1,000 mg PO BID 10/23/24 Unknown History D-Mannose) diphenhydramine HCl 25 mg capsule 50 mg PO QHS insom 10/23/24 Unknown History (Benadryl) gabapentin 800 mg tablet 800 mg PO TID 10/23/24 Unknown History testosterone 12.5 mg/1.25 gram per 1 pump transdermal DAILY 10/23/24 Unknown History pump actuation (1%) transdermal gel tizanidine 4 mg capsule 4 mg PO QHS 10/23/24 Unknown History ferrous sulfate 325 mg (65 mg 325 mg PO BID #1 TAB 10/25/24 Unknown Rx iron) tablet aripiprazole 2 mg tablet 2 mg PO DAILY 05/15/25 Unknown History Allergy/AdvReac Type Severity Reaction Status Date / Time acetaminophen AdvReac Intermediate LIVER Verified 05/15/25 02:42 ISSUES ibuprofen AdvReac Intermediate LIVER Verified 05/15/25 02:42 ISSUES Family History Mother Dementia Father Diabetes Surgical History History of esophagogastroduodenoscopy (EGD) History of liver biopsy History of tonsillectomy and adenoidectomy Social History household members: spouse Smoking Status: Never smoker alcohol intake: former year quit: 2020 substance use type: does not use EXAM Physical Exam Const Vital Signs: 05/15/25 02:42 05/15/25 02:44 05/15/25 03:12 Temperature 97.9 F Temperature Source Temporal Pulse Rate 73 Respiratory Rate 16 Respiratory Effort Normal Blood Pressure 128/91 H Blood Pressure Mean 103 Pulse Ox 100 Oxygen Delivery Method Room Air 05/15/25 03:52 05/15/25 04:07 Temperature Temperature Source Pulse Rate 81 83 Respiratory Rate 17 Respiratory Effort Blood Pressure 103/71 Blood Pressure Mean 81 Pulse Ox 98 Oxygen Delivery Method MDM MDM MDM Narrative Medical decision making narrative: HISTORY OF PRESENT ILLNESS: Chief complaint: Chest pain 55-year-old female presents with stabbing chest pain under left breast 1 month also with dysuria. Pain is associated with food. The pain is not pleuritic. Not associate with exertion. No falls or trauma noted. No bleeding diathesis noted. No vomiting or diarrhea noted. No cough fever or chills The patient denies recent surgery in the last 4 weeks or immobilization in the last 3 days, denies previous diagnosis of DVT or PE, hemoptysis, unilateral leg swelling or malignancy with treatment the last 6 months or palliative. No estrogen use noted. Patient denies sudden onset of pain, no tearing sensation, no migratory symptoms, no new numbness, weakness or loss of sensation. Patient denies family history or personal history of Connective tissue disorders (Marfan's Syndrome, Taz Danlos etc) REVIEW OF SYSTEMS: Pertinent positives: Chest pain, dysuria Pertinent negatives: As per HPI PHYSICAL EXAM: Nursing triage notes reviewed, Vital signs reviewed Constitutional: please see [facility] HENT: MMM Eyes: Pupils equal round and reactive to light, Extraocular muscles intact Neck: No stridor, no JVD, full neck ROM Lungs: Clear to auscultation, No wheezing or rales. No increased work of breathing, no conversational dyspnea, no accessory muscle use, no nasal flaring. No respiratory distress noted Heart: Regular rate and rhythm, No murmurs, No rubs and No gallops, 2+ distal pulses (radial, femoral, posterior tibial) in all extremities Abdomen: Soft, there is no tenderness, rigidity, rebound or guarding, no obvious peritoneal signs, no palpable pulsatile abdominal masses, no auscultated abdominal bruit : No CVAT Extremities: No edema Neuro: No new focal neurological deficits, cranial nerves II through XII intact, 5/5 strength in all present extremities. Intact sensation to light touch in all present extremities, 2+ reflexes bilateral patella tendons. Skin: No rash or lesions noted MEDICAL DECISION MAKING: Chief Complaint: please see HPI External records reviewed: Reviewed prior cardiovascular test, no recent stress test or echocardiograms noted in the chart Factors affecting care: Cirrhosis Social determinants of health: n history of alcohol use History obtained from others: none Consults: none [facility] Narrative: The patient was initially hemodynamically stable, afebrile and nontoxic-appearing. Exam unremarkable. No focal cardiopulmonary abnormalities. Abdomen soft nontender. I considered the following differential diagnosis: ACS, arrhythmia, anemia, PE, aortic dissection, UTI I obtained a broad lab and imaging workup workup to further determine if the patient was suffering from a life-threatening etiology. ALL IMAGES (IF OBTAINED) HAVE BEEN PERSONALLY REVIEWED AND INTERPRETED BY MYSELF. Urinalysis shows no evidence of urinary inflammation suggestive of UTI EKG with normal sinus rhythm rate of 71, normal axis, normal intervals, no STEMI CBC with no leukocytosis, no anemia noted severe thrombocytopenia similar to prior studies BMP without evidence of significant electrolyte abnormalities, no anion gap, no acute kidney injury. High-sensitivity troponin is negative, no evidence of myocardial ischemia x2 essentially ruling out ACS by high-sensitivity troponin protocol I have personally reviewed the patient's chest x-ray. Chest x-ray is unremarkable for pulmonary edema, pneumothorax, pneumonia or focal cardiopulmonary abnormality. The synthesis of the patient's history, physical exam, labs images suggest no acute life or limb threatening etiology. Specifically no sign of ACS, anemia, arrhythmia, pneumothorax, pericarditis. While I considered pulmonary embolism as a ventral etiology the patient low risk Wells score and as such have low suspicion for PE. Also considered aortic dissection however the patient had no Aortic dissection risk factors. Has stable vitals. No pulse deficits or focal neurologic deficits. I do not pursue advanced imaging or D-dimer to further assess these etiologies as the risk was low in this patient. . The patient and/or family, caregivers express understanding. The patient and/or family, caregivers agrees with the plan. Shared decision making: I will have a discussion with the patient and or visitors regarding risk/benefits of further testing or admission. They will be made aware of of the risk/benefits inherent in this decision they will be given the opportunity to voice understanding. Total critical care time today provided was at least 0 mintues. This excludes separately billable procedures. Critical care time (if documented) is secondary to the patient having high probability of clinically significant/life threatening deterioration in the patient's condition which required my urgent intervention. Impression: 1. Chest pain 2. Dysuria Dispo: Discharge This note was generated with [employer] dictation software. It may contain incorrect words, spelling, and punctuation that were not noted in review of the chart prior to signing. Lab Data Labs: Laboratory Results - last 24 hr 05/15/25 05/15/25 03:05 03:38 WBC 3.8 L RBC 4.16 L Hgb 12.1 Hct 36.7 L MCV 88.2 MCH 29.1 MCHC 33.0 RDW Std Deviation 48.3 H RDW Coeff of [place] 15.0 H Plt Count 41 L* MPV 13.9 H Immature Gran % (Auto) 0.300 Neut % (Auto) 64.5 Lymph % (Auto) 25.1 [place] % (Auto) 8.7 Eos % (Auto) 1.1 Baso % (Auto) 0.3 Absolute Neuts (auto) 2.5 Absolute Lymphs (auto) 0.95 Nucleated RBC % 0 Platelet Estimate MKD DEC Sodium 136 Potassium 3.9 Chloride 104 Carbon Dioxide 19.2 L Anion Gap 13 BUN 11 Creatinine 0.85 Estim Creat Clear Calc 94.59 Est GFR (MDRD) Non-Af 81 BUN/Creatinine Ratio 13.4 Glucose 235 H Calcium 9.2 Troponin T High Sens < 6 Urine Color Yellow Urine Clarity Clear Urine pH 6.0 Ur Specific [place] 1.020 Urine Protein 30 H Urine Glucose (UA) 100 H Urine Ketones Negative Urine Occult Blood 10 H Urine Nitrite Negative Urine Bilirubin Negative Urine Urobilinogen 1 H Ur Leukocyte Esterase Negative Urine RBC 0 SEEN Urine WBC 0 SEEN Ur Squamous Epith Cells 0-5 SEEN Urine Bacteria 1+ Urine Mucus 0 SEEN Radiography Diagnostic Testing: Clinical Impression(s) from Imaging Studies Chest X-Ray 05/15/25 03:09 IMPRESSION: No acute chest findings. Reading Location: [place] [id number] Discharge Plan Triage Chief Complaint: Chest Pain ED Provider: Mario Corona Dx/Rx/DC Orders Prescriptions: No Action folic acid 1 mg Tablet 1 mg PO DAILY multivitamin Capsule 1 cap PO DAILY thiamine HCl (vitamin B1) [Vitamin B-1] 100 mg Tablet 100 mg PO DAILY cholecalciferol (vitamin D3) [Vitamin D3] 125 mcg (5,000 unit) Tablet 125 mcg PO DAILY magnesium 250 mg Tablet 250 mg PO DAILY ginkgo biloba 60 mg Capsule 60 mg PO DAILY Rx Instructions: give with meal/snack progesterone micronized 100 mg Capsule 500 mg PO QHS milk thistle 175 mg Capsule 175 mg PO DAILY Rx Instructions: give with meal/snack Mymtaspxgls-Ujstin-U2 (C-hung) 500-400-667 mg-mg-unit Capsule 1 cap PO DAILY duloxetine 60 mg capsule,delayed release(DR/EC) 60 mg PO BID lactulose 10 gram/15 mL (15 mL) solution 15 ml PO TID PRN (Reason: ammonia) calcium citrate-vitamin D3 [Calcium Citrate + D] 315 mg-5 mcg (200 unit) tablet 1 tab PO DAILY testosterone 12.5 mg/ 1.25 gram (1 %) gel in metered-dose pump 1 pump transdermal DAILY tizanidine 4 mg capsule 4 mg PO QHS gabapentin 800 mg tablet 800 mg PO TID ascorbic acid (vitamin C) 500 mg tablet 500 mg PO DAILY cranberry 500 mg capsule 500 mg PO DAILY Rx Instructions: administer with a meal AZO D-Mannose 500 mg capsule 1,000 mg PO BID diphenhydramine HCl [Benadryl] 25 mg capsule 50 mg PO QHS ferrous sulfate 325 mg (65 mg iron) tablet 325 mg PO BID Qty: 1 0RF Rx Instructions: OBTAIN OVER THE COUNTER methocarbamol 500 mg tablet 500 mg PO TID PRN (Reason: pain) citalopram 20 mg tablet 20 mg PO DAILY estradiol 0.01 % (0.1 mg/gram) cream 1 appful vaginal QHS hydroxyzine pamoate 25 mg capsule 25 mg PO BID aripiprazole 2 mg tablet 2 mg PO DAILY pantoprazole 40 mg tablet,delayed release (DR/EC) 40 mg PO DAILY Qty: 90 2RF nadolol 20 mg tablet 20 mg PO DAILY Qty: 30 11RF Primary Care Provider: NEGRITA CARLTON Referrals: NEGRITA CARLTON PARAMEDIC RN-C [Primary Care Provider] - Print Language: Kiswahili
--- OUTSIDE RECORDS SUMMARY | 2025-05-15 02:59 | XMS RPT_ITS | CCD ---
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 Leodan Briseno Attending Provider [phone] ROBERT PEARSON Primary Care Provider Unavailabl e ROBERT PEARSON Primary Care Provider Dr. Leodan Sarabia Referring Provider Dr. Leodan Sarabia Other Provider Unavailable Primary Care Provider Unavailabl walter [facility] Doctor, Out of Referring Provider Unavailab le FriendDr. Alcocer Attending Provider ROBERT PEARSON Referring Provider Unavailable Dr. Esteban Alston Emergency Provider [phone] Care Physician, No Primary Primary Care Provider Unavailable Dr. Belén Angeles Admit Provider Dr. Belén Angeles Other Provider Dr. Ruth Borges Other Provider Cr EXPERIENTIAL THERAPIST, SHALA-Parul Vazquez Attending Provider Robert Pearson Primary Care Provider Dr. Serena Rolle Other Provider Dr. Leodan Sarabia Attending Provider ROBERT PEARSON Primary Care Provider UnavailDr. Serena Lopez Attending Provider [phone] Leodan Sarabia Attending Provider [phone] ROBERT PEARSON Primary Care Provider Unavailabl ROBERT Pierce Referring Provider Unavailable Dr. Esteban Alston Emergency Provider [phone] Care Physician, No Primary Primary Care Provider Unavailable Dr. Belén Angeles Admit Provider Dr. Belén Angeles Other Provider Dr. Ruth Borges Other Provider Cr EXPERIENTIAL THERAPIST, ZENOBIAC Taylor Attending Provider Robert Pearson Primary Care Provider [phone] Serena Rolle Attending Provider Dr. Serena Rolle Other Provider Unavailable Primary Care Provider UnavailDr. Leodan Loo Attending Provider ROBERT PEARSON Primary Care Provider UnavailROBERT Barragan Referring Provider Unavailable Robert Pearson MD Primary Care Provider Jesenia Rivera DO, Nicholas E Unavailable ROBERT PEARSON MD Primary Care Unavailable ANGELIC MIGUEL MD Attending Unavailable LILI HERNANDEZ, ROBERT Choudhury Attending Unavailable LILI HERNANDEZ, ROBERT Choudhury Referring Unavailable ROBERT PEARSON MD Primary Care Unavailable ROBERT HOUSER Attending Unavailable LILI HERNANDEZ, ROBERT Choudhury Primary Care Unavailable LILI HERNANDEZ, ROBERT Choudhury Attending Unavailable LILI HERNANDEZ, ROBERT Choudhury Primary Care Unavailable LILI HERNANDEZ, ROBERT Choudhury Attending Unavailable LILI HERNANDEZ, ROBERT Choudhury Primary Care Unavailable ROBERT PEARSON MD Attending Unavailable LILI HERNANDEZ, ROBERT Choudhury Primary Care Unavailable ROBERT PEARSON MD Primary Care Unavailable MARIYA NORTON PA-C Attending Unavailable VEDA ALVARADO Attending Unavailable PHYSICIAN, NONE Primary Care Unavailable Dr. Leodan Sarabia Attending Provider Care Physician, No Primary Primary Care Provider Unavailable Care Physician, No Primary Referring Provider Un available Lisa Jimenez Unavailable Leodan Sarabia DO Unavailable Brandt EDGER HAND.JERRY, Aure Hurley Primary Care Provider Priyanka Lyons Unavailable Justice Painter DPM Unavailable ANGELIC TAMEZ DO Attending Unavailable ANGELIC TAMEZ DO Primary Care Unavailable DASHAWN, ANGELIC MAHMOOD Admitting Unavailable Lisa Jimenez DO Unavailable Lesa EXPERIENTIAL THERAPIST, Syeda Tatum Unavailable Noling EDGER HAND.OFFAL ICER POULTRY, Aure L Primary Care Provider AUNDREA SHULTZ Attending Unavailab le NOLING, AURE L Primary Care Unavailable JAMES ALBRIGHT Attending Unavailable AUNDREA SHULTZ Referring Unavailab le NOLING, AURE L Primary Care Unavailable Noling, Aure Primary Care Provider [phone] BRANDT, AURE Primary Care Unavailable RADHIKA SCOTT Referring Unavailable RADHIKA SCOTT Attending Unavailable RADHIKA SCOTT Admitting Unavailable Radhika Scott Unavailable Serena HERNANDEZ, Priyanka Miller Unavailable Friend DO, Leodan B Unavailable Lili HERNANDEZ, Robert Primary Care Provider Brandt HERNANDEZ, Aure Primary Care Provider Radhika Scott MD Unavailable NOLING, AURE L Primary Care Unavailable NOLING, AURE L Primary Care Unavailable FRANKY LEAVITT Attending Unavailable Noling EDGER HAND.OFFAL ICER POULTRY, Aure L Primary Care Provider NODIANA EXPERIENTIAL THERAPIST-C, AURE Primary Care Provider Dr. Ayaz Crisostomo DO Emergency Provider [phone] Rosana Pizano MD Attending Provider Dr. Rosana Pizano MD Admit Provider Dr. Rosana Pizano MD Other Provider Dr. Gavin Vaca DO Attending Provider Dr. Gavin Vaca DO Other Provider Dr. Tree Mitchell DO Attending Provider Dr. Tree Mitchell DO Emergency Provider Dr. Radhika Scott MD Attending Provider Dr. Radhika Scott MD Referring Provider [phone] NOLING EXPERIENTIAL THERAPIST-C, AURE Attending Provider NOLING EXPERIENTIAL THERAPIST-C, AURE Referring Provider Dr. Radhika Scott MD Other Provider [phone] Lillian MAHMOOD, Dr. Chen Emergency Provider NOLING, AURE Primary Care Unavailable Rosana Pizano Attending Unavailable Radhika Scott Referring Unavailable Radhika Scott Attending Unavailable NOLING, AURE Primary Care Unavailable NOLING, AURE Primary Care Unavailable Juno Jensen Referring Unavailable Juno Jensen Attending Unavailable NOLING, AURE Primary Care Unavailable Lamine Guerra Attending Unavailable NOLING, AURE Primary Care Unavailable Pizano, Rosana Consulting Unavailable Pizano, Rosana Admitting Unavailable Tergraciela, Gavin Attending Unavailable NOLING, AURE Primary Care Unavailable Rod Chua Attending Unavailable Tree Mitchell Attending Unavailable NOLING, AURE Primary Care Unavailable Gustavo Snyder Attending Unavailable NOLING, AURE Primary Care Unavailable Radhika Scott Consulting Unavailable NOLING, AURE Primary Care Unavailable NOLING, ARUE Referring Unavailable NOLING, AURE Attending Unavailable Pizano, Rosana Consulting Unavailable Pizano, Rosana Admitting Unavailable NOLING, AURE Primary Care Unavailable Tereletsky, Gavin Attending Unavailable Tereletsky, Gavin Consulting Unavailable Inocencio DPM, Justice Dubose Unavailable [phone] EVANGELINA ESTRADA Referring Unavailable NOLING, AURE L Primary Care Unavailable SELF Referring Unavailable NOLING, AURE L Primary Care Unavailable ALBA HOLDER Attending Unavailable SELF Referring Unavailable NOLING, AURE L Primary Care Unavailable YOVANA STEWART JR Attending Unavailable JUNO JENSEN Referring Unavailable NOLING, AURE L Primary Care Unavailable RADHIKA SCOTT Referring Unavailabl e NOLING, AURE L Primary Care Unavailable NOLING, AURE L Referring Unavailable NOLING, AURE L Primary Care Unavailable NOLING, AURE L Attending Unavailable NOLING, AURE L Referring Unavailable NOLING, AURE L Primary Care Unavailable NOLING, AURE L Attending Unavailable NOLING, AURE L Referring Unavailable NOLING, AURE L Primary Care Unavailable RADHIKA SCOTT Referring Unavailabl e SELF Referring Unavailable NOLING, AURE L Primary Care Unavailable YOVANA STEWART JR Attending Unavailable YOVANA STEWART JR Referring Unavailable NOLING, AURE L Primary Care Unavailable NOLING, AURE L Referring Unavailable NOLING, AURE L Primary Care Unavailable SELF Referring Unavailable NOLING, AURE L Primary Care Unavailable NICOLETTE VILLAGOMEZ Attending Unavailable NICOLETTE VILLAGOMEZ Referring Unavailable NOLING, AURE L Primary Care Unavailable NOLING, AURE L Primary Care Unavailable YOVANA STEWART JR Attending Unavailable NOLING, AURE L Attending Unavailable NOLING, AURE L Referring Unavailable NOLING, AURE L Primary Care Unavailable NOLING, AURE L Referring Unavailable NOLING, AURE L Primary Care Unavailable NOLING, AURE L Referring Unavailable NOLING, AURE L Primary Care Unavailable NOLING, AURE L Primary Care Unavailable REYES, BALDEV JACQUES Attending Unavailable NOLING, AURE L Primary Care Unavailable YOVANA STEWART JR Attending Unavailable Allergies Allergy Classification Reported Allergen(s) Allergy Type Date of Onset Reaction(s) Facility (20 sources) Acetaminophen; Translations: [[facility]; Translations: [IBUPROFEN] Drug Allergy [address] [facility] (1 source) Acetaminophen Drug Allergy 5 [facility] (1 source) Ibuprofen Drug Allergy 5 [facility] Medications Current Medications Medication Drug Class(es) Dates [...] days. 12 tablet 0 12/31/2022 01/03/2023 Active Comment on above: Take 1 tablet by lionel th every 6 hours as needed for pain for up to 3 days. [id number] 200 actuat albuterol 0.09 mg/actuat metered dose inhaler (16 sources) beta2-Adrenergic Agonist Start: 04-16-2025 End: 05-16-2025 take 2 puff(s) by inhalation every four hours as needed for wheezing albuterol HFA (PROVENTIL HFA, VENTOLIN HFA) 90 mcg/actuation inhaler Indications: Chest congestion Inhale 2 puffs as instructed every 4 hours as needed for wheezing/shortnes s of breath (as needed). 1 each 04/16/2025 05/16/2025 Active Start: 11-17-2023 End: 03-04-2024 take 1-2 puff(s) by inhalation four times daily as needed for wheezing albuterol HFA (PROVENTIL HFA) 90 mcg/actuation inhaler Indications: URI, acute Inhale 1-2 Puffs as instructed four times a day as needed for wheezing/shortness of breath. 1 Each 11/17/2023 03/04/2024 Discontinued Comment on above: Inhale 1-2 Puffs as instructed four times a day as needed for wheezing/shortness of breath. amoxicillin 875 mg / clavulanate 125 mg oral tablet (2 sources) Penicillin-class Antibacterial Start: 01-27-20 End: 02-03-20 take 1 tablet by mouth every twelve hours amoxicillin-clavu lanate potassium (AUGMENTIN) 875-125 mg per tablet Indications: Acute cough , GARZA (dyspnea on exertion) Take 1 tablet by mouth every 12 hours for 7 days. 14 tablet 01/26/2025 02/02/2025 Active ascorbic acid 500 mg oral tablet (20 sources) Vitamin C Start: 10-23-20 End: 02-17-20 take 1 tablet by mouth once daily Ascorbic Acid (Vitamin C) 500 mg tablet Active 500 mg PO DAILY October 23, 2024 1:00am Start: 04-04-2022 take 1 tablet by lionel th once daily Ascorbic Acid (Vitamin C) (Vitamin C) 500 mg Tablet,Chewable Active 500 MG PO DAILY April 04, 2022 12:00am Comment on above: Take 500 mg by mouth once daily. azithromycin 250 mg oral tablet (3 sources) Macrolide Antimicrobial Start: 03-30-20 End: 04-04-20 take 2 tablets by mouth once daily, then take 1 tablet by mouth once daily azithromycin (ZITHROMAX) 250 mg tablet Take 2 tablets by mouth once daily for 1 day, THEN 1 tablet once daily for 4 days. 6 tablet 03/30/2025 04/04/2025 Active Start: 05-26-2023 End: 05-30-2023 azithromycin (ZITHROMAX Z-PA K) 250 mg tablet Indications: Bronchitis 2 tablets by mouth first day then 1 tablet the next 4 days 6 tablet 0 05/26/2023 05/30/2023 Active Comment on above: 2 tablets by mouth f irst day then 1 tablet the next 4 days brompheniramine maleate 0.4 mg/ml / dextromethorphan hydrobromide 2 mg/ml / pseudoephedrine hydrochloride 6 mg/ml oral solution (13 sources) alpha-Adrenergic Agonist, Uncompetitive I-ikkwyo-I-aspartate Receptor Antagonist, Sigma-1 Agonist Start: 03-30-20 End: 05-04-20 take 10 mL by mouth four times daily as needed Brompheniramine- Pseudoeph-DM (BROMFED DM) 2-30-10 mg/5 mL syrup Indications: Subacute cough Take 10 mL by mouth four times a day as needed. 200 mL 05/04/2025 Active calcium citrate 1500 mg / cholecalciferol 200 unt oral tablet (20 sources) Vitamin D Start: 10-23-20 Calcium Citrate-Vitamin D3 (Calcium Citrate + D) 315 mg-5 mcg (200 unit) tablet Active 1 {tbl} PO DAILY October 23, 2024 1:00am Calcium Citrate- Vitamin D 315-5 MG-MCG tablet Take by mouth. Active End: 02-16-2025 calcium citrate-vitamin D3 ( CITRACAL+D) 315 mg-5 mcg (200 unit) tab Take by mouth as directed. 02/16/2025 Discontinued cephalexin 500 mg oral capsule (8 sources) Cephalosporin Antibacterial Start: 03-04-2024 End: 03-11-2024 take 1 capsule by mouth four times daily cephALEXin (KEFLEX) 500 mg capsule Indications: Foot laceration, right, subsequent encounter Take 1 capsule by mouth four times daily for 7 days. 28 capsule 0 03/04/2024 03/11/2024 Active Start: 05-14-2023 End: 08-14-2023 take 1 capsule by mouth once daily at bedtime cephALEXin (KEFLEX) 250 mg capsule TAKE 1 CAPSULE BY MOUTH EVERY DAY AT BEDTIME 05/14/2023 08/14/2023 Discontinued Start: 07-17-2022 take 500 mg by mouth three times daily Cephalexin Active 500 MG PO THREE TIMES A DAY 07 06July 17, 2022 12:00am Comment on above: TAKE 1 CAPSULE BY MO [facility] EVERY DAY AT BEDTIME Take 1 capsule by mo [facility] four times daily for 7 days. cholecalciferol 0.125 mg oral tablet (20 sources) Vitamin D Start: 04-04-20 take 1 tablet by mouth once daily Cholecalciferol (Vitamin D3) (Vitamin D3) 125 mcg (5,000 unit) Tablet Active 125 ug PO DAILY April 04, 2022 12:00am take 1 tablet by mouth once tee y cholecalciferol (VITAMIN D3) 5,000 unit tab Take 5,000 Units by mouth once daily. Active cholecalciferol (D-5000) 5,000 Units tablet Take 5,000 Units by mouth in the morning. Active Comment on above: Take 5,000 Units by mouth once daily. cholestyramine resin 4000 mg powder for oral suspension (20 sources) Bile Acid Sequestrant Start: 05-29-20 cholestyramine (QUESTRAN) 4 gram packet DISSOLVE IN WATER & TAKE 1 POWDER PACKET BY MOUTH TWICE DAILY NEEDED 05/29/2024 Active chondroitin sulfates 600 mg / glucosamine hydrochloride 750 mg oral tablet (20 sources) take 1 tablet by mouth once daily glucosamine/chondr paniagua A sod (GLUCOSAMINE-CHONDROIT IN) 750-600 mg tab Take 1 tablet by mouth once daily. Active End: 08-14-2023 take 1 tablet by mouth once daily glucosamine-chondroitin 500-400 mg capsu le 1 tablet with a meal Orally Once a day 08/14/2023 Discontinued Comment on above: 1 tablet with a meal Orally Once a day Take 1 tablet by [facility] once daily. citalopram 20 mg oral tablet (20 sources) Serotonin Reuptake Inhibitor Start: 12-16-2023 End: 02-16-2025 take 1 tablet by mouth once daily citalopram (CELEXA) 20 mg tablet Indications: Depression, unspecified depression type , Anxiety Take 1 tablet by mouth once daily. 90 tablet 3 02/16/2025 Active Start: 10-31-2023 take 1.5 tablets by mouth once daily citalopram hydrobromide (CELEXA) 10 mg tablet Indications: Anxiety , Depression, unspecified depression type Take 1.5 tablets by mouth once daily. 45 tablet 1 10/31/2023 Active Start: 09-13-2023 take 1 tablet by lionel th once daily citalopram hydrobromide (CELEXA) 10 mg tablet Indications: Anxiety , Depression, unspecified depression type Take 1 tablet by mouth once daily. 30 tablet 1 09/13/2023 Active Comment on above: Take 1 tablet by lionel th once daily. Take 1.5 tablets by mouth once daily. Take 1 tablet by lionel th once daily cranberry fruit extract (CRANBERRY EXTRACT) 500 mg tab (20 sources) take 1 tablet by mouth three times daily cranberry fruit extract (CRANBERRY EXTRACT) 500 mg tab Take 1 tablet by mouth three times daily. Active take 1 tablet by mouth three nicky es daily cranberry fruit extract (CRANBERRY EXTRACT) 500 mg tab Take 1 tablet by mouth three times daily. 0 Active Comment on above: Take 1 tablet by lionel th three times daily. Cranberry (4 sources) Non-Standardized Food Allergenic Extract, Non-Standardized Plant Allergenic Extract Start: 10-23-2024 take 1 capsule by mouth once daily Cranberry 500 mg capsule Active 500 mg PO DAILY October 23, 2024 1:00am administer with a meal Cranberry 500 MG tablet Take by mouth. Active Cranberry 500 MG tablet Take by mouth. 0 Active Cranberry, Vacc oxycoccus, (HM Cranberry) 500 MG tablet (8 sources) Cranberry, Vacc oxycoccus, (HM Cranberry) 500 MG tablet Take 1 tablet by mouth in the morning and 1 tablet at noon and 1 tablet in the evening. Active D-Mannose (1 source) Start: 10-23-2024 take 2 capsules by mouth twice daily, then take 1 capsule by mouth once D-Mannose (Azo D-Mannose) 500 mg capsule Active 1000 mg PO TWICE A DAY October 23, 2024 1:00am d-mannose 500 mg cap (20 sources) take 2 capsules by mouth twice daily d-mannose 500 mg cap Take 1,000 mg by mouth twice daily. Active take 2 capsules by mouth twice d aily d-mannose 500 mg cap Take 1,000 mg by mouth twice daily. 0 Active Comment on above: Take 1,000 mg by lionel th twice daily. D-Mannose 500 MG capsule (8 sources) take 2 capsules by mouth once in the morning D-Mannose 500 MG capsule Take 1,000 mg by mouth in the morning and 1,000 mg in the evening. Active dicyclomine hydrochloride 10 mg oral capsule (17 sources) Anticholinergic Start: 2024 take 1 capsule by mouth twice daily as needed for pain dicyclomine (BENTYL) 10 mg capsule take 1 capsule by mouth twice daily as needed for pain 02/04/2025 Active diphenhydrAMINE hydrochloride 25 mg oral capsule (1 source) Histamine-1 Receptor Antagonist Start: 2023 take 2 capsules by mouth at bedtime Diphenhydramine Hcl (Benadryl) 25 mg capsule Active 50 mg PO AT BEDTIME October 23, 2024 1:00am DULoxetine 60 mg delayed release oral capsule (20 sources) Serotonin and Norepinephrine Reuptake Inhibitor Start: 2022 End: 2022 take 2 capsules by mouth twice daily Duloxetine 60 mg capsule,delayed release(DR/EC) Discontinued 120 mg PO TWICE A DAY 60 June 07, 2023 12:00am July 07, 2023 5:07am Start: 06-07-2023 End: 07-07-2023 take 120 mg by mouth twice daily Duloxetine Discontinued 120 MG PO TWICE A DAY 60 June 06, 2023 11:00pm July 07, 2023 4:07am Start: 07-30-2022 End: 04-28-2025 take 1 capsule by mouth twice daily DULoxetine (CYMBALTA) 60 mg capsule Indications: Depression, unspecified depression type , Anxiety , Polyneuropathy, unspecified Take 1 capsule by mouth twice daily 60 capsule 5 04/28/2025 Active Start: 04-04-2022 End: 06-07-2023 take 1 capsule by mouth twice daily Duloxetine 60 mg Capsule, Delayed Rel Sprinkle Discontinued 60 mg PO TWICE A DAY April 04, 2022 12:00am June 07, 2023 3:56pm Comment on above: 1 capsule twice tee y. estradiol 0.1 mg/ml vaginal cream (20 sources) Estrogen Start: 07-10-2024 Estradiol 0.01 % (0.1 mg/gram) cream Active 1 NMA VAGINAL AT BEDTIME July 10, 2024 12:00am Start: 08-31-2023 End: 02-16-2025 estradiol (ESTRACE) 0.01 % ( 0.1 mg/gram) vaginal cream INSERT 1 GRAM VAGINALLY THREE TIMES A WEEK BEFORE BED 08/31/2023 02/16/2025 Discontinued (Other) Start: 05-14-2023 Estradiol 0.52 MG/0.87 GM (0.06%) gel Apply 0.1ml to upper inner arm daily. 05/14/2023 Active Comment on above: INSERT 1 GRAM VAGINA LLY THREE TIMES A WEEK BEFORE BED estrogens, esterified (long-term) 0.625 mg / methylTESTOSTERone 1.25 mg oral tablet (17 sources) Androgen Start: take 1 tablet by mouth once daily at bedtime esterified estrogens-methylTE STOSTERone (ESTRATEST HS) 0.625-1.25 mg per tablet Take 1 tablet by mouth once daily. 01/27/2025 Active famotidine 40 mg oral tablet (20 sources) Histamine-2 Receptor Antagonist Start: End: take 1 tablet by mouth once daily at bedtime famotidine (PEPCID) 40 mg tablet Take 40 mg by mouth daily at bedtime. 02/03/2023 Active Comment on above: Take 40 mg by mouth daily at bedtime. ferrous sulfate 325 mg oral tablet (20 sources) Start: take 1 tablet by mouth twice daily Ferrous Sulfate 325 mg (65 mg iron) tablet Active 325 mg PO TWICE A DAY October 25, 2024 1:00am OBTAIN OVER THE COUNTER fluticasone propionate 0.05 mg/actuat metered dose nasal spray (12 sources) Corticosteroid Start: take 1 spray(s) nasal route twice daily fluticasone (FLONASE) 50 mcg/actuation nasal spray Indications: URI, acute Use 1 spray in each nostril two times a day. 1 each 03/09/2025 Active folic acid 1 mg oral tablet (20 sources) Start: take 1 mg by mouth once daily Folic Acid Active 1 MG PO DAILY April 03, 2022 11:00pm Comment on above: Take 1 mg by mouth o nce daily. gabapentin 800 mg oral tablet (20 sources) Anti-epileptic Agent Start: End: 025 take 1 tablet by mouth three times daily gabapentin (NEURONTIN) 800 mg tablet Indications: Polyneuropathy, unspecified Take 1 tablet by mouth three times a day for 90 days. 90 tablet 2 03/12/2025 06/10/2025 Active Start: 06-15-2024 End: 12-07-2024 take 2 capsules by mouth every twelve hours Gabapentin 300 mg capsule Discontinued 600 mg PO Q12H July 10, 2024 12:00am December 07, 2024 3:34am Start: 09-06-2023 End: 12-05-2023 take 1 capsule by mouth at bedtime as needed gabapentin (NEURONTIN) 100 mg capsule Indications: Peripheral nerve disease Take 1 capsule by mouth at bedtime as needed for up to 90 days. 30 capsule 2 09/06/2023 Active Start: 05-02-2022 End: 05-21-2023 take 1 capsule by mouth twice daily gabapentin (NEURONTIN) 100 mg capsule gabapentin 100 mg capsule TAKE 1 CAPSULE BY MOUTH TWICE DAILY 05/02/2022 05/21/2023 Discontinued Start: 03-05-2022 End: 10-12-2024 take 1 capsule by mouth three times daily Gabapentin 300 mg capsule Discontinued 300 mg PO THREE TIMES A DAY 90 June 07, 2023 12:00am July 10, 2024 9:06pm Start: 03-05-2022 take 300 mg by mouth twice simona ly Gabapentin Active 300 MG PO TWICE A DAY March 05, 2022 8:38am Comment on above: Take 300 mg by mouth . gabapentin 100 mg ca psule TAKE 1 CAPSULE BY MOUTH TWICE DAILY Take 1 capsule by mo ut three times daily for 30 days. Take 300 mg by mouth three times daily. Take 1 capsule by mo uth at bedtime as needed for up to 90 days. Take 1 capsule by mo uth three times a day for 180 days. Gemtesa 75 MG tablet (8 sources) Start: 07-19-2023 take 1 tablet by mouth at bedtime Gemtesa 75 MG tablet Take by mouth at bedtime 07/19/2023 Active ginkgo biloba extract 60 mg oral capsule (5 sources) Start: 05-08-2023 take 1 capsule by mouth once daily Ginkgo Biloba 60 mg Capsule Active 60 mg PO DAILY May 08, 2023 12:00am give with meal/snack Start: 05-08-2023 take 60 mg by mouth once daily Ginkgo Biloba Active 60 MG PO DAILY May 07, 2023 11:00pm give with meal/snack Start: 05-08-2023 take 60 mg by mouth once daily Ginkgo Biloba Active 60 MG PO DAILY May 08, 2023 12:00am give with meal/snack ginkgo biloba leaf extract 60 mg oral capsule (20 sources) take 1 tablet by lionel th once daily ginkgo biloba leaf extract 60 mg tab Take 1 tablet by mouth once daily. Active take 1 tablet by mouth once tee y ginkgo biloba leaf extract 60 mg tab Take 1 tablet by mouth once daily. 0 Active ginkgo biloba le af extract 60 mg tab as directed Orally 0 Active Comment on above: as directed Orally Take 1 tablet by lionel th once daily. Umli-Zouvgb-Btyinwlh-D3 -C-Mn (Zfejpovjlrc-Orgjyt-T8 (C-Christiano)) 500-400-667 mg-mg-unit Capsule (5 sources) Start: 05-08-2023 Xpfk-Ajcozs-Vqjnmdjm-D 3-C-Mn (Jgbhhgkptig-Efdkvu-M7 (C-Christiano)) 500-400-667 mg-mg-unit Capsule Active 1 NMA PO DAILY May 08, 2023 12:00am Start: 05-08-2023 take 1 capsule by [facility] once daily Aljn-Abfowj-Jilwgptb-D3-C-Mn (Zvjmlalkuzx-Dwdpce-S3 (C-Christiano)) 500-400-667 mg-mg-unit Capsule Active 1 CAP PO DAILY May 07, 2023 11:00pm Start: 05-08-2023 take 1 capsule by [facility] once daily Illx-Xgmqjy-Orovttfy-D3-C-Mn (Aldkhvabvjg-Rnmtso-Z4 (C-Christiano)) 500-400-667 mg-mg-unit Capsule Active 1 CAP PO DAILY May 08, 2023 12:00am Lactobac no.41/Bifidobact no .7 (PROBIOTIC-10 ORAL) (20 sources) take 1 tablet by mouth once daily Lactobac no.41/Bifidobact no.7 (PROBIOTIC-10 ORAL) Take 1 tablet by mouth once daily. Active take 1 tablet by mouth once tee y Lactobac no.41/Bifidobact no.7 (PROBIOTIC-10 ORAL) Take 1 tablet by mouth once daily. 0 Active Comment on above: Take 1 tablet by lionel th once daily. levoFLOXacin 750 mg oral tablet (5 sources) Quinolone Antimicrobial Start: 07-17-20 take 750 mg by mouth once daily Levofloxacin Active 750 MG PO DAILY 7 July 17, 2022 12:00am Magnesium (20 sources) Start: 05-08-20 take 1 tablet by mouth once daily Magnesium 250 mg Tablet Active 250 mg PO DAILY May 08, 2023 12:00am Start: 05-08-2023 take 250 mg by mouth once tee y Magnesium Active 250 MG PO DAILY May 07, 2023 11:00pm Start: 05-08-2023 take 250 mg by mouth once tee y Magnesium Active 250 MG PO DAILY May 08, 2023 12:00am magnesium 250 MG tablet Take by mouth daily. Active End: 08-14-2023 take 1 tablet by mouth once daily Magnesium 200 mg tab 1 tablet with a meal Orally Once a day 08/14/2023 Discontinued take 1 tablet by lionel th once daily Magnesium 250 mg tab Take 250 mg by mouth once daily. Active magnesium 250 MG tablet Take by mouth daily. 0 Active take 1 tablet by lionel th once daily Magnesium 250 mg tab Take 250 mg by mouth once daily. 0 Active take 1 tablet by lionel th once daily Magnesium 200 mg tab 1 tablet with a meal Orally Once a day 0 Active Comment on above: 1 tablet with a meal Orally Once a day Take 250 mg by mouth once daily. milk thistle extract 175 mg oral capsule (20 sources) Start: 05-08-2023 take 1 capsule by mouth once daily Milk Thistle 175 mg Capsule Active 175 mg PO DAILY May 08, 2023 12:00am give with meal/snack Start: 05-08-2023 take 175 mg by mouth once tee y Milk Thistle Active 175 MG PO DAILY May 07, 2023 11:00pm give with meal/snack Start: 05-08-2023 take 175 mg by mouth once tee y Milk Thistle Active 175 MG PO DAILY May 08, 2023 12:00am give with meal/snack take 1 tablet by lionel th in the morning MILK THISTLE EXTRACT PO Take 1 tablet by mouth in the morning. Active take 1 tablet by lionel th once daily Milk Thistle 175 mg tab Take 1 tablet by mouth once daily. Active take 1 tablet by lionel th once daily Milk Thistle 175 mg tab Take 1 tablet by mouth once daily. 0 Active Milk Thistle 175 mg tab as directed Orally 0 Active Comment on above: as directed Orally Take 1 tablet by lionel th once daily. Multiple Vitamin (multivitamin) tablet (11 sources) take 1 tablet by mouth once daily Multiple Vitamin (multivitamin) tablet Take 1 tablet by mouth daily. Active take 1 tablet by mouth in the mo rning Multiple Vitamin (multivitamin) tablet Take 1 tablet by mouth in the morning. Active take 1 tablet by mouth once tee y Multiple Vitamin (multivitamin) tablet Take 1 tablet by mouth daily. 0 Active Multivitamin Capsule (1 source) Start: 04-04-2022 Multivitamin C apsule Active 1 NMA PO DAILY April 04, 2022 12:00am Multivitamin preparation (13 sources) Start: 04-04-2022 take 1 capsule by mouth once daily Multivitamin Active 1 CAP PO DAILY April 04, 2022 3:28pm Start: 04-04-2022 take 1 capsule by [facility] once daily Multivitamin Active 1 CAP PO DAILY April 03, 2022 11:00pm Start: 04-04-2022 take 1 capsule by [facility] once daily Multivitamin Active 1 CAP PO DAILY April 04, 2022 12:00am hcuzfayzlcxn-qxrwfyth-xtzvpv n k-coenzyme Q-10 (DEKAS PLUS) 200 mcg-1,000 mcg-10 mg chewable tablet (20 sources) Start: 11-18-2021 take 1 tablet by mouth once daily htwnyhilqkuu-ibmraicq-qywgkxv k-coenzyme Q-10 (DEKAS PLUS) 200 mcg-1,000 mcg-10 mg chewable tablet Take 1 tablet by mouth once daily. 11/18/2021 Active Start: 11-18-2021 take 1 tablet by lionel th once daily nkgsnqnfppyr-kdmrwcqw-kdrqwku k-coenzyme Q-10 (DEKAS PLUS) 200 mcg-1,000 mcg-10 mg chewable tablet Take 1 tablet by mouth once daily. 0 11/18/2021 Active Comment on above: Take 1 tablet by lionel th once daily. nadolol 20 mg oral tablet (20 sources) beta-Adrenergic Nunu Start: 04-05-20 End: 03-11-20 take 1 tablet by mouth once daily nadolol (CORGARD) 20 mg tablet Take 20 mg by mouth once daily. For 30 days 08/13/2022 Active Comment on above: Take 20 mg by mouth once daily. For 30 days nitrofurantoin, macrocrystals 25 mg / nitrofurantoin, monohydrate 75 mg oral capsule (6 sources) Nitrofuran Antibacterial Start: 05-07-20 End: 05-14-20 take 1 capsule by mouth twice daily nitrofurantoin monohydrate and macrocrystal (MACROBID) 100 mg capsule Take 1 capsule by mouth twice daily for 7 days. 14 capsule 0 05/07/2023 05/14/2023 Active Start: 09-02-2022 End: 02-15-2023 take 100 mg by mouth twice daily Nitrofurantoin Monohyd/M-Cryst Active 100 MG PO TWICE A DAY September 02, 2022 12:00am Comment on above: Take 1 capsule by [facility] twice daily for 5 days. Take 1 capsule by [facility] twice daily for 7 days. oxyCODONE hydrochloride 5 mg oral tablet (18 sources) Opioid Agonist Start: 02-08-2025 take 1 tablet by mouth every six hours as needed for pain Oxycodone 5 mg tablet Active 5 mg PO EVERY 6 HOURS as needed for pain 12 February 08, 2025 Start: 12-07-2024 take 1 tablet by [facility] every six hours as needed for pain Oxycodone 5 mg tablet Active 5 mg PO EVERY 6 HOURS as needed for pain 20 December 07, 2024 Start: 07-07-2023 End: 07-10-2024 take 1 tablet by mouth every six hours as needed for pain Oxycodone 5 mg tablet Discontinued 5 mg PO EVERY 6 HOURS as needed for pain 4 November 26, 2023 July 10, 2024 9:00pm Start: 09-24-2022 End: 02-10-2023 take 5 mg by mouth twice daily Oxycodone Active 5 MG P O TWICE A DAY 2 September 24, 2022 Comment on above: Take by mouth. pantoprazole 40 mg delayed release oral tablet (20 sources) Proton Pump Inhibitor Start: End: take 1 tablet by mouth once daily Pantoprazole 40 mg tablet,delayed release (DR/EC) Active 40 mg PO DAILY 90 March 11, 2023 2:37pm Start: 09-12-2022 End: 12-10-2022 take 1 tablet by mouth twice daily Pantoprazole 40 mg tablet,delayed release (DR/EC) Discontinued 40 mg PO TWICE A DAY 60 September 12, 2022 3:10pm December 10, 2022 10:20am Start: 08-03-2022 End: 09-12-2022 take 1 tablet by mouth once daily Pantoprazole 40 mg tablet,delayed release (DR/EC) Discontinued 40 mg PO DAILY August 03, 2022 1:49pm September 12, 2022 3:11pm Start: 04-06-2022 End: 08-03-2022 Pantoprazole 40 mg tablet,de layed release (DR/EC) Discontinued 40 mg PO TWICE A DAY 60 April 06, 2022 12:25pm August 03, 2022 1:49pm take two times a day for eight weeks then once a day Start: 04-04-2022 End: 04-06-2022 take 40 mg by mouth once daily Pantoprazole Discontinu ed 40 MG PO DAILY April 03, 2022 11:00pm April 06, 2022 11:26am Comment on above: Take 40 mg by mouth once daily. predniSONE 20 mg oral tablet (7 sources) Start: 03-30-2025 End: 04-02-2025 take 1 tablet by mouth twice daily predniSONE (DELTASONE) 20 mg tablet Take 1 tablet by mouth two times a day for 3 days. 6 tablet 03/30/2025 04/02/2025 Active Start: 02-12-2025 End: 02-17-2025 take 1 tablet by mouth once daily predniSONE (DELTASONE) 20 mg tablet Indications: Acute cough Take 1 tablet by mouth once daily for 5 days. 5 tablet 02/12/2025 02/17/2025 Active Start: 01-26-2025 End: 01-31-2025 take 2 tablets by mouth once daily predniSONE (DELTASONE) 20 mg tablet Indications: Acute pain of right shoulder Take 2 tablets by mouth once daily for 5 days. 10 tablet 01/26/2025 01/31/2025 Active progesterone 100 mg oral capsule (20 sources) Progesterone Start: 05-08-2023 End: 02-16-2025 take 1 capsule by mouth once daily progesterone micronized (PROMETRIUM) 100 mg capsule Take 1 capsule by mouth once daily. 02/16/2025 Active Start: 05-08-2023 take 500 mg by mouth at bedtim e Progesterone Micronized Active 500 MG PO AT BEDTIME May 07, 2023 11:00pm Start: 04-30-2023 End: 02-16-2025 PROGESTERONE MISC 04/30/2023 02/16/2025 Discontinued Start: 04-30-2023 PROGESTERONE M ISC 04/30/2023 Active Start: 04-30-2023 PROGESTERONE M ISC Dissolve one triturate under the tongue at bedtime. 0 04/30/2023 Active Comment on above: Dissolve one tritura te under the tongue at bedtime. Take by mouth. rifAXIMin 550 mg oral tablet (20 sources) Rifamycin Antibacterial Start: 07-15-20 End: 02-17-20 take 1 tablet by mouth twice daily Rifaximin 550 mg tablet Active 550 mg PO TWICE A DAY October 23, 2024 1:00am Comment on above: Take 550 mg by mouth twice daily. solifenacin succinate 10 mg oral tablet (20 sources) Cholinergic Muscarinic Antagonist Start: 11-30-19 take 1 tablet by mouth once solifenacin 10 mg tablet Take 1 tablet by mouth every afternoon. 11/30/2024 Active sucralfate 1000 mg oral tablet (2 sources) Aluminum Complex Start: 04-05-20 take 1 g by mouth twice daily Sucralfate Active 1 GM PO TWICE A DAY April 05, 2022 7:22am sulfamethoxazole 800 mg / trimethoprim 160 mg oral tablet (6 sources) Dihydrofolate Reductase Inhibitor Antibacterial, Sulfonamide Antimicrobial Start: 07-08-20 End: 07-18-20 24 take 1 tablet by mouth twice daily sulfamethoxazole-t rimethoprim (BACTRIM DS) 800-160 mg per tablet Indications: Dysuria , Urgency of urination Take 1 tablet by mouth two times a day for 10 days. 20 tablet 07/08/2024 07/18/2024 Active Start: 03-19-2024 End: 03-26-2024 take 1 tablet by mouth twice daily sulfamethoxazole-trimethoprim (BACTRIM D S) 800-160 mg per tablet Indications: Recurrent UTI (urinary tract infection) Take 1 tablet by mouth two times a day for 7 days. 14 tablet 0 03/19/2024 03/26/2024 Active Start: 12-31-2022 End: 01-05-2023 take 1 tablet by mouth twice daily sulfamethoxazole-trimethoprim (BACTRIM D S) 800-160 mg per tablet Take 1 tablet by mouth twice daily for 5 days. 10 tablet 0 12/31/2022 01/05/2023 Active Comment on above: Take 1 tablet by lionel twice daily for 5 days. 60 actuat testosterone 12.5 mg/actuat topical gel (20 sources) Androgen Start: 10-23-2024 Testosterone 12.5 mg/ 1.25 gram (1 %) gel in metered-dose pump Active 1 NMA TD DAILY October 23, 2024 1:00am testosterone (An drogel) 12.5 MG/ACT (1%) gel Place on the skin daily. .25 ml topically Active End: 02-16-2025 testosterone (VOGELXO) 12.5 mg/ 1.25 gram (1 %) transdermal gel Apply as directed. 02/16/2025 Discontinued (Other) tiZANidine 2 mg oral tablet (20 sources) Central alpha-2 Adrenergic Agonist Start: 05-03-2025 take 1 tablet by mouth twice daily as needed for muscle spasms tiZANidine (ZANAFLEX) 2 mg tablet Indications: Polyneuropathy, unspecified TAKE 1 TABLET BY MOUTH TWICE DAILY NEEDED FOR MUSCLE SPASM 60 tablet 05/03/2025 Active Start: 02-16-2025 End: 05-03-2025 take 1 capsule by mouth twice daily as needed for muscle spasms tiZANidine HCl (ZANAFLEX) 2 mg capsule Indications: Polyneuropathy, unspecified Take 1 capsule by mouth two times a day as needed for muscle spasm. 60 capsule 1 02/16/2025 05/03/2025 Discontinued Start: 02-07-2025 End: 02-12-2025 take 1 tablet by mouth once daily at bedtime tiZANidine (ZANAFLEX) 4 mg tablet Indications: Neuropathy Take 1 tablet by mouth daily at bedtime for 5 days. 5 tablet 02/07/2025 02/12/2025 Active Start: 01-27-2025 End: 01-29-2025 take 1 tablet by mouth three times daily tiZANidine (ZANAFLEX) 4 mg tablet Indications: Spasm Take 1 tablet by mouth three times a day for 2 days. 6 tablet 01/27/2025 01/29/2025 Active Start: 09-20-2023 End: 10-22-2023 take 1 tablet by mouth three times daily as needed tiZANidine (ZANAFLEX) 2 mg tablet Indications: Peripheral nerve disease Take 1 tablet by mouth three times a day as needed. 25 tablet 0 10/22/2023 Active Start: 08-23-2023 take 1 tablet by lionel th three times daily as needed tiZANidine (ZANAFLEX) 2 mg tablet Indications: Peripheral nerve disease Take 1 tablet by mouth three times a day as needed. 90 tablet 0 08/23/2023 Active Start: 08-14-2023 take 2 mg by mouth e very eight hours as needed tiZANidine (ZANAFLEX) 4 mg tablet Take 0.5 tablets by mouth three times daily as needed. 0 08/14/2023 Active Start: 05-26-2023 End: 06-25-2023 take 1 tablet by mouth every eight hours as needed tiZANidine (ZANAFLEX) 4 mg tablet Indications: Neuropathy Take 1 tablet by mouth every 8 hours as needed. 90 tablet 0 05/26/2023 06/25/2023 Active Start: 05-08-2023 End: 01-27-2025 take 1 capsule by mouth at bedtime Tizanidine 4 mg capsule Active 4 mg PO AT BEDTIME October 23, 2024 1:00am Start: 12-20-2022 End: 08-14-2023 take 1 tablet by mouth every eight hours as needed tiZANidine (ZANAFLEX) 2 mg tablet TAKE 1 TO 2 TABLETS BY MOUTH EVERY 8 HOURS NEEDED FOR MUSCLE SPASM 12/20/2022 08/14/2023 Discontinued Comment on above: TAKE 1 TO 2 TABLETS BY MOUTH EVERY 8 HOURS NEEDED FOR MUSCLE SPASM Take 1 tablet by lionel th every 8 hours as needed. Take 0.5 tablets by mouth three times daily as needed. Take 1 tablet by lionel th three times a day as needed. Take by mouth. traMADol hydrochloride 50 mg oral tablet (12 sources) Opioid Agonist Start: 03-04-2024 End: 03-09-2024 take 1 tablet by mouth every eight hours as needed for pain traMADol (ULTRAM) 50 mg tablet Indications: Foot laceration, right, subsequent encounter Take 1 tablet by mouth every 8 hours as needed for pain for up to 5 days. 15 tablet 0 03/04/2024 03/09/2024 Active Start: 06-07-2023 End: 06-14-2023 take 1 tablet by mouth every eight hours as needed for pain Tramadol 50 mg tablet Discontinued 50 mg PO Q8H as needed for pain 30 7 June 07, 2023 12:00am June 13, 2023 12:00am June 14, 2023 12:04am Start: 08-13-2022 End: 02-10-2023 take 0.5-1 tablets by mouth every six hours as needed traMADol (ULTRAM) 50 mg tablet TAKE 1/2 TO 1 (ONE-HALF TO ONE) TABLET BY MOUTH EVERY 6 HOURS NEEDED FOR 3 DAYS 08/13/2022 02/10/2023 Discontinued Comment on above: TAKE 1/2 TO 1 (ONE-H KECIA TO ONE) TABLET BY MOUTH EVERY 6 HOURS NEEDED FOR 3 DAYS Take 1 tablet by lionel th every 8 hours as needed for pain for up to 5 days. traZODone hydrochloride 100 mg oral tablet (20 sources) Serotonin Reuptake Inhibitor Start: End: take 2 tablets by mouth once daily at bedtime traZODone (DESYREL) 100 mg tablet Indications: Insomnia, unspecified type Take 2 tablets by mouth daily at bedtime. 180 tablet 3 02/16/2025 Active Start: 10-31-2023 take 1 tablet by lionel th once daily at bedtime traZODone (DESYREL) 150 mg tablet Indications: Insomnia, unspecified type Take 1 tablet by mouth daily at bedtime. 30 tablet 1 10/31/2023 Active Start: 09-13-2023 take 1 tablet by lionel th once daily at bedtime traZODone (DESYREL) 150 mg tablet Indications: Insomnia, unspecified type Take 1 tablet by mouth daily at bedtime. 30 tablet 1 09/13/2023 Active Start: 09-06-2023 take 1 tablet by lionel th once daily at bedtime traZODone (DESYREL) 100 mg tablet Indications: Insomnia, unspecified type Take 1 tablet by mouth daily at bedtime. 30 tablet 2 09/06/2023 Active Start: 08-14-2023 End: 09-06-2023 take 1 tablet by mouth once daily at bedtime traZODone (DESYREL) 50 mg tablet Indications: Insomnia, unspecified type Take 1 tablet by mouth daily at bedtime. 30 tablet 1 08/14/2023 09/06/2023 Discontinued Start: 04-04-2022 take 4 tablets by mo [facility] at bedtime Trazodone 50 mg Tablet Active 200 mg PO AT BEDTIME April 04, 2022 12:00am Start: 04-04-2022 Trazodone Acti ve 25 MG PO MOTUWETHFRSA April 03, 2022 11:00pm DONT TAKE ON SATURDAY Start: 11-17-2021 End: 08-14-2023 take 0.5 tablet by mouth once daily at bedtime traZODone (DESYREL) 50 mg tablet Take 0.5 tablets by mouth daily at bedtime. 11/17/2021 08/14/2023 Discontinued take 200 mg by mouth once daily TRAZODONE HCL PO Take 200 mg by mouth Nightly. Active take 200 mg by mouth once daily TRAZODONE HCL PO Take 200 mg by mouth Nightly. 0 Active Comment on above: Take 0.5 tablets by mouth daily at bedtime. [facility] Take 2 tablets by mo [facility] daily at bedtime. Vibegron (1 source) Start: 07-10-2024 take 1 tablet by mouth once daily Vibegron (Gemtesa) 75 mg tablet Active 75 mg PO DAILY July 10, 2024 12:00am Vibegron (Gemtesa) 75 MG tablet (3 sources) take 1 tablet by mouth once daily Vibegron (Gemtesa) 75 MG tablet Take by mouth Nightly. Active take 1 tablet by mouth once tee y Vibegron (Gemtesa) 75 MG tablet Take by mouth Nightly. 0 Active Completed/Discontinued Medications Medication Drug Class(es) Dates Sig (Normalized) Sig (Original) ALPRAZolam 0.25 mg oral tablet (4 sources) Benzodiazepine Start: 01-15-2023 take 1 tablet by mouth every twelve hours as needed ALPRAZolam (XANAX) 0.25 mg tablet Take 0.25 mg by mouth twice daily as needed. 0 01/15/2023 Active Comment on above: Take 0.25 mg by mout h twice daily as needed. benzonatate 200 mg oral capsule (20 sources) Non-narcotic Antitussive Start: 01-26-2025 End: 03-30-2025 take 1 capsule by mouth every eight hours as needed Benzonatate 200 mg capsule Take 1 capsule by mouth three times a day as needed for cough. 21 capsule 1 03/08/2025 03/30/2025 Discontinued Start: 11-17-2023 End: 03-04-2024 take 1 capsule by mouth three times daily as needed for cough benzonatate (TESSALON PERLES) 100 mg capsule Indications: URI, acute Take 1 capsule by mouth three times a day as needed for cough. 20 capsule 11/17/2023 03/04/2024 Discontinued Comment on above: Take 1 capsule by mo uth three times a day as needed for cough. Bifidobacteri Bifid.And Longum (Florajen Bifidoblend) 460 mg (9-1 bill.cell) Capsule (5 sources) Start: End: take 1 capsule by mouth twice daily Bifidobacteri Bifid.And Longum (Florajen Bifidoblend) 460 mg (9-1 bill.cell) Capsule Discontinued 500 NMA PO TWICE A DAY May 08, 2023 12:00am July 07, 2023 5:04am Start: 05-08-2023 End: 07-07-2023 take 1 capsule by mouth twice daily Bifidobacteri Bifid.And Longum (Florajen Bifidoblend) 460 mg (9-1 bill.cell) Capsule Discontinued 500 CAP PO TWICE A DAY May 07, 2023 11:00pm July 07, 2023 4:04am Start: 05-08-2023 End: 07-07-2023 take 1 capsule by mouth twice daily Bifidobacteri Bifid.And Longum (Florajen Bifidoblend) 460 mg (9-1 bill.cell) Capsule Discontinued 500 CAP PO TWICE A DAY May 08, 2023 12:00am July 07, 2023 5:04am busPIRone hydrochloride 10 mg oral tablet (6 sources) Start: 05-14-2023 End: 09-13-2023 take 1 tablet by mouth three times daily busPIRone (BUSPAR) 10 mg tablet Take 10 mg by mouth three times daily. 05/14/2023 09/13/2023 Discontinued Comment on above: Take 10 mg by mouth three times daily. calcium carbonate 600 mg / cholecalciferol 125 unt oral tablet (2 sources) Vitamin D End: 04-28-2024 Calcium Carbonate-Vitamin D (Calcium-Vitamin D) 600-3.125 MG-MCG tablet Take 125 mcg by mouth daily. 0 04/28/2024 Discontinued (Entered in error) cefdinir 300 mg oral capsule (1 source) Cephalosporin Antibacterial Start: 07-12-2024 End: 12-07-2024 take 1 capsule by mouth every twelve hours Cefdinir 300 mg capsule Discontinued 300 mg PO Q12H July 12, 2024 12:00am December 07, 2024 3:22am copper citrate 2 mg capsule (16 sources) Start: 11-18-2021 End: 08-14-2023 take 1 capsule by mouth once daily copper citrate 2 mg capsule Take 1 capsule by mouth once daily. 11/18/2021 08/14/2023 Discontinued Start: 11-18-2021 take 1 capsule by [facility] once daily copper citrate 2 mg capsule Take 1 capsule by mouth once daily. 0 11/18/2021 Active Comment on above: Take 1 capsule by [facility] once daily. dexamethasone 4 mg oral tablet (14 sources) Corticosteroid End: dexAMETHasone (DECADRON) 4 mg tablet Take 4 mg by mouth as directed. 03/04/2024 Discontinued Comment on above: Take 4 mg by mouth a s directed. 12 hr dextromethorphan hydrobromide 30 mg / guaiFENesin 600 mg extended release oral tablet (2 sources) Uncompetitive O-eesyfp-Q-aspartate Receptor Antagonist, Sigma-1 Agonist Start: 023 End: take 1 tablet by mouth twice daily dextromethorphan-gu aiFENesin (MUCUS DM) 30-600 mg per tablet Indications: URI, acute Take 1 tablet by mouth two times a day. 14 tablet 0 08/17/2023 09/06/2023 Discontinued Comment on above: Take 1 tablet by lionel th two times a day. doxycycline hyclate 100 mg oral capsule (11 sources) Tetracycline-class Drug Start: End: doxycycline hyclate (VIBRAMYCIN) 100 mg capsule 08/21/2022 08/14/2023 Discontinued Comment on above: TAKE 1 CAPSULE BY MO [facility] TWICE DAILY FOR 10 DAYS Estradiol / Estriol (20 sources) Estrogen Start: End: apply 0.1 mL topically once daily estradiol 0.01% estriol 0.01% topical cream (CPD) Apply 0.1ml to upper inner arm daily. 05/14/2023 02/16/2025 Discontinued (Other) Start: 05-14-2023 apply 0.1 mL topically once da amina estradiol 0.01% estriol 0.01% topical cream (CPD) Apply 0.1ml to upper inner arm daily. 05/14/2023 Active Start: 05-14-2023 apply 0.1 mL topically once da amina estradiol 0.01% estriol 0.01% topical cream (CPD) Apply 0.1ml to upper inner arm daily. 0 05/14/2023 Active Comment on above: Apply 0.1ml to upper inner arm daily. GEMTESA 75 mg tablet (20 sources) Start: 07-19-2023 End: 02-16-2025 take 1 tablet by mouth once GEMTESA 75 mg tablet Take 1 tablet by mouth every afternoon. 07/19/2023 02/16/2025 Discontinued (Other) Start: 07-19-2023 take 1 tablet by mouth once GE MTESA 75 mg tablet Take 1 tablet by mouth every afternoon. 07/19/2023 Active Start: 07-19-2023 take 1 tablet by mouth once GE MTESA 75 mg tablet Take 1 tablet by mouth every afternoon. 0 07/19/2023 Active Comment on above: Take 1 tablet by [facility] every afternoon. hydrocortisone 25 mg/ml topical cream (9 sources) Corticosteroid Start: 05-08-2023 End: 07-07-2023 Hydrocortisone 2.5 % Cream Discontinued 1 NMA TOPICAL TWICE A DAY May 08, 2023 12:00am July 07, 2023 5:06am Start: 05-07-2023 End: 08-14-2023 Hydrocortisone Discontinued 1 APPLIC TOPICAL TWICE A DAY May 07, 2023 11:00pm July 07, 2023 4:06am Comment on above: Apply 1 application to affected area twice daily. hydrOXYzine pamoate 25 mg oral capsule (20 sources) Antihistamine Start: take 1 capsule by mouth twice daily Hydroxyzine Pamoate 25 mg capsule Active 25 mg PO TWICE A DAY July 10, 2024 12:00am Start: 05-22-2024 End: 03-30-2025 take 1 capsule by mouth every twelve hours as needed for anxiety and anxiety hydrOXYzine pamoate (VISTARIL) 25 mg capsule Indications: Anxiety TAKE 1 CAPSULE BY MOUTH EVERY 12 HOURS NEEDED FOR ANXIETY 60 capsule 2 11/09/2024 03/30/2025 Discontinued Start: 05-22-2024 hydrOXYzine pa moate (Vistaril) 25 MG capsule Take 25 mg by mouth every 12 (twelve) hours if needed 05/22/2024 Active Start: 05-01-2024 take 1 capsule by mo sch once daily as needed hydrOXYzine pamoate (VISTARIL) 25 mg capsule Indications: Anxiety Take 1 capsule by mouth once daily as needed. 30 capsule 0 05/01/2024 Active lactulose 667 mg/ml oral solution (20 sources) Osmotic Laxative Start: 01-30-2022 End: 08-14-2023 take 10 g by mouth once daily Lactulose 10 gram/15 mL solution Discontinued 10 g PO DAILY 237 October 01, 2022 1:00am December 10, 2022 10:19am Start: 01-30-2022 End: 07-07-2023 take 1 mL by mouth three times daily Lactulose 10 gram/15 mL (15 mL) solution Discontinued 15 mL PO THREE TIMES A DAY 750 March 11, 2023 2:38pm July 07, 2023 5:07am Comment on above: Enulose 10 gram/15 m L oral solution Take 10 g by mouth t hree times daily as needed. lidocaine 0.05 mg/mg topical ointment (7 sources) Antiarrhythmic, Amide Local Anesthetic Start: 07-07-2023 End: 07-10-2024 Lidocaine 5 % ointment Discontinued 1 NMA TOPICAL THREE TIMES A DAY as needed for pain 50 July 07, 2023 12:00am July 10, 2024 9:03pm Start: 03-07-2022 Lidocaine Hcl (Lidocaine Viscous) 2 % solution Active 1 APPLIC MUCOUS MEM THREE TIMES A DAY 100 March 07, 2022 3:32pm swallow 10mL three times a day as needed melatonin 10 mg oral tablet (20 sources) Start: 03-05-2022 End: 07-10-2024 take 1 tablet by mouth at bedtime Melatonin 10 mg Tablet Discontinued 10 mg PO AT BEDTIME March 05, 2022 12:00am July 10, 2024 9:00pm Start: 11-17-2021 End: 02-10-2023 take 3 tablets by mouth once daily at bedtime melatonin 3 mg tablet 3 tablets by ORAL/FEEDING TUBE route daily at bedtime. 11/17/2021 02/10/2023 Discontinued Start: 11-17-2021 End: 02-10-2023 take 3 tablets by mouth once daily at bedtime melatonin 3 mg tablet 3 tablets by ORAL/FEEDING TUBE route daily at bedtime. 0 11/17/2021 02/10/2023 Discontinued End: 08-14-2023 take 2 tablets by mouth once daily at bedtime melatonin 10 mg cap 2 tab(s) orally once a day (at bedtime) 08/14/2023 Discontinued Comment on above: 3 tablets by ORAL/FE EDING TUBE route daily at bedtime. 2 tab(s) orally once a day (at bedtime) methocarbamol 500 mg oral tablet (20 sources) Muscle Relaxant Start: 02-05-20 End: 05-03-20 take 1 tablet by mouth three times daily methocarbamol (ROBAXIN) 500 mg tablet Indications: Neuropathy Take 1 tablet by mouth three times a day. 90 tablet 3 02/04/2025 05/03/2025 Discontinued (Lack of Efficacy) Start: 02-12-2024 End: 01-27-2025 take 1 tablet by mouth three times daily methocarbamol (ROBAXIN) 500 mg tablet Indications: Neuropathy Take 1 tablet by mouth three times a day. 90 tablet 3 02/04/2025 Active Start: 10-31-2023 End: 12-30-2023 take 1 tablet by mouth three times daily methocarbamol (ROBAXIN) 500 mg tablet Indications: Neuropathy take 1 tablet by mouth three times daily 90 tablet 0 12/30/2023 Active take 1-3 tablets by mouth once daily as needed methocarbamol (Robaxin) 500 MG tablet Take 500 mg by mouth Nightly. 1-3 tablets as needed Active Comment on above: Take 1 tablet by lionel th three times a day. take 1 tablet by lionel th three times daily 24 hr mirabegron 50 mg extended release oral tablet (17 sources) beta3-Adrenergic Agonist Start: 4 End: 5 take 50 mg by mouth once daily at breakfast mirabegron (MYRBETRIQ) 50 mg Tb24 Take 50 mg by mouth daily with breakfast. 08/19/2024 02/16/2025 Discontinued (Other) MULTIVITAMIN 12 INTRAVEN. (4 sources) End: 3 MULTIVITAMIN 12 INTRAVEN. Take by mouth. 08/14/2023 Discontinued MULTIVITAMIN 12 INTRAVEN. Take by mouth. 0 Active Comment on above: Take by mouth. Jkuoqxioajwgx-Hywaxdab-R utein (MULTIVITAMIN 50 PLUS) tab (6 sources) End: 08-14-2023 Nbpivkwycgvpe-Zxzlfegs-Ntlsm n (MULTIVITAMIN 50 PLUS) tab Take 1 tablet by mouth once daily. 08/14/2023 Discontinued Multivitamins-Mi nerals-Lutein (MULTIVITAMIN 50 PLUS) tab Take 1 tablet by mouth once daily. 0 Active Comment on above: Take 1 tablet by lionel once daily. nitrofurantoin 100 mg oral tablet (5 sources) Nitrofuran Antibacterial Start: 023 End: take 1 capsule by mouth twice daily at mealtime Nitrofurantoin 100 mg Capsule Discontinued 100 mg PO TWICE A DAY May 08, 2023 12:00am July 07, 2023 5:06am must administer with a meal/food QUEtiapine 25 mg oral tablet (6 sources) Atypical Antipsychotic Start: 021 End: take 0.5 tablet by mouth every six hours as needed QUEtiapine (SEROQUEL) 25 mg tablet Take 0.5 tablets by mouth every 6 hours as needed (1st line for agitation). 0 11/17/2021 12/27/2022 Discontinued Comment on above: Take 0.5 tablets by mouth every 6 hours as needed (1st line for agitation). thiamine 100 mg oral tablet (20 sources) Start: End: take 1 tablet by mouth once daily VITAMIN B-1, MONONITRATE, 100 mg tab TAKE 1 TABLET BY MOUTH ONCE DAILY FOR 90 DAYS 05/18/2022 08/14/2023 Discontinued Comment on above: Take 100 mg by mouth once daily. TAKE 1 TABLET BY LIONEL TH ONCE DAILY FOR 90 DAYS 1 tab(s) orally once a day triamcinolone acetonide 5 mg/ml topical cream (11 sources) Corticosteroid Start: End: triamcinolone acetonide (KENALOG) 0.5 % cream APPLY TOPICALLY 2 TO 3 TIMES DAILY FOR 7 DAYS, DO NOT USE FOR MORE THAN 1-2 WEEKS CONSISTENTLY 06/08/2022 08/14/2023 Discontinued Comment on above: APPLY TOPICALLY 2 TO 3 TIMES DAILY FOR 7 DAYS, DO NOT USE FOR MORE THAN 1-2 WEEKS CONSISTENTLY Vitamin B Complex (20 sources) End: take 1 tablet by mouth once daily vitamin B complex (B COMPLEX 1 ORAL) Take 1 tablet by mouth once daily. 02/16/2025 Discontinued take 1 tablet by mouth once tee y vitamin B complex (B COMPLEX 1 ORAL) Take 1 tablet by mouth once daily. Active take 1 tablet by mouth once tee y vitamin B complex (B COMPLEX 1 ORAL) Take 1 tablet by mouth once daily. 0 Active Comment on above: Take 1 tablet by lionel th once daily. vitamin b12 1 mg oral tablet (20 sources) Vitamin B12 End: 02-16-2025 take 1 tablet by mouth once daily cyanocobalamin (VITAMIN B-12) 1,000 mcg tab Take 1 tablet by mouth once daily. 02/16/2025 Discontinued Comment on above: Take 1 tablet by lionel th once daily. Problems Active Problems Problem Classification Problem Date Documented Da te Episodic/Chronic Alcohol-related disorders (20 sources) Alcoholic hepatitis; Translations: [Alcoholic hepatitis without ascites] Onset: 3 Resolved: 3 Chronic Anxiety disorders (20 sources) Mixed anxiety and depressive disorder; Translations: [Other specified anxiety disorders] Onset: 3 05-26-2023 Chronic Chronic obstructive pulmonary disease and bronchiectasis (3 sources) Bronchitis; Translations: [Bronchitis, not specified as acute or chronic] Onset: 5 05-26-2023 Episodic Coagulation and hemorrhagic disorders (20 sources) Thrombocytopenic disorder; Translations: [Thrombocytopenia, unspecified] Onset: 4 03-30-2024 Chronic Crushing injury or internal injury (1 source) Injury of spleen; Translations: [Unspecified injury of spleen, initial encounter] Episodic Deficiency and other anemia (20 sources) Pancytopenia; Translations: [Other pancytopenia] Onset: 4 10-28-2024 Chronic Deficiency and other anemia (1 source) Other pancytopenia; Translations: [Pancytopenia (HCC)] Onset: 4 Chronic Deficiency and other anemia (2 sources) Chronic anemia; Translations: [Anemia, unspecified] 10-23-2024 Episodic Delirium, dementia, and amnestic and other cognitive disorders (20 sources) Delirium due to multiple etiological factors; Translations: [Delirium due to known physiological condition] Onset: 1 Resolved: 3 11-17-2021 Chronic Diabetes mellitus without complication (19 sources) Impaired fasting glycemia; Translations: [Impaired fasting glucose] Onset: 4 03-30-2024 Episodic Disorders of lipid metabolism (20 sources) Hyperlipidemia; Translations: [Hyperlipidemia, unspecified] Onset: 3 08-14-2023 Chronic Esophageal disorders (20 sources) Esophageal varices without bleeding; Translations: [Esophageal varices without bleeding] Onset: 4 04-28-2024 Chronic Menopausal disorders (1 source) Menopausal and female climacteric states; Translations: [Symptomatic menopausal or female climacteric states] Onset: 4 Chronic Mood disorders (20 sources) Depressive disorder; Translations: [Depressive disorder] Onset: 1 11-17-2021 Chronic Mood disorders (1 source) Mood disorders; Translations: [Depression, unspecified depression type] Onset: 3 Nutritional deficiencies (20 sources) Malnutrition (calorie); Translations: [Moderate protein-calorie malnutrition] Onset: 1 Resolved: 3 11-17-2021 Chronic Open wounds of extremities (3 sources) Laceration of dorsum of foot; Translations: [Laceration without foreign body, right foot, initial encounter] 03-03-2024 Episodic Other aftercare (2 sources) Removal of sutures done; Translations: [Encounter for removal of sutures] 03-19-2024 Episodic Other circulatory disease (1 source) Pulmonary congestion ; Translations: [Other specified symptoms and signs involving the circulatory and respiratory systems] 04-16-2025 Episodic Other circulatory disease (1 source) Other specified symptoms and signs involving the circulatory and respiratory systems; Translations: [Chest congestion] Onset: Episodic Other connective tissue disease (5 sources) Neuropathic pain; Translations: [Neuralgia and neuritis, unspecified] 07-07-2023 Episodic Other connective tissue disease (1 source) Paraparesis; Translations: [Other symptoms and signs involving the musculoskeletal system] 08-16-2023 Episodic Other connective tissue disease (4 sources) Pain in right foot; Translations: [Pain in right foot] 09-08-2023 Episodic Other connective tissue disease (1 source) Pain in limb; Translations: [Pain in unspecified limb] 09-25-2023 Episodic Other connective tissue disease (2 sources) Foot pain; Translations: [Pain in right foot] 11-26-2023 Episodic Other connective tissue disease (1 source) Spasm; Translations: [Cramp and spasm] 01-27-2025 Episodic Other connective tissue disease (1 source) Bursitis of right shoulder; Translations: [Bursitis of right shoulder] 02-07-2025 Episodic Other female genital disorders (1 source) Abnormal vaginal bleeding; Translations: [Abnormal uterine and vaginal bleeding, unspecified] 07-19-2024 Chronic Other female genital disorders (1 source) Abnormal uterine and vaginal bleeding, unspecified; Translations: [Abnormal uterine and vaginal bleeding, unspecified] Onset: Chronic Other gastrointestinal disorders (2 sources) H/O: liver disease; Translations: [Personal history of other diseases of the digestive system] 10-23-2024 Episodic Other inflammatory condition of skin (1 source) Itching of skin; Translations: [Pruritus, unspecified] Episodic Other liver diseases (16 sources) Steatosis of liver; Translations: [Fatty (change of) liver, not elsewhere classified] 02-12-2022 Chronic Other liver diseases (20 sources) Cirrhosis of liver; Translations: [Unspecified cirrhosis of liver] Onset: 2 09-12-2022 Chronic Other liver diseases (20 sources) Unspecified cirrhosis of liver; Translations: [Cirrhosis of liver without mention of alcohol] Onset: 4 Chronic Other liver diseases (1 source) Other cirrhosis of liver; Translations: [Other cirrhosis of liver (HCC)] Onset: 3 Chronic Other lower respiratory disease (2 sources) Dyspnea on exertion; Translations: [Other forms of dyspnea] 01-26-2025 Episodic Other lower respiratory disease (8 sources) Cough; Translations: [Acute cough] 01-26-2025 Episodic Other nervous system disorders (20 sources) Peripheral nerve disease ; Translations: [Polyneuropathy, unspecified] Onset: 2 08-15-2022 Chronic Other nervous system disorders (20 sources) Neuropathy; Translations: [Polyneuropathy, unspecified] Onset: 1 10-02-2022 Chronic Other nervous system disorders (20 sources) Polyneuropathy; Translations: [Polyneuropathy, unspecified] Onset: 3 11-19-2023 Chronic Other nervous system disorders (2 sources) Hereditary and idiopathic neuropathy, unspecified; Translations: [Hereditary and idiopathic neuropathy, unspecified] Onset: 4 Chronic Other nervous system disorders (2 sources) Polyneuropathy, unspecified; Translations: [Polyneuropathy, unspecified] Onset: 3 Chronic Other nervous system disorders (1 source) Encephalopathy, unspecified; Translations: [Encephalopathy, unspecified type] Onset: 4 Chronic Other nutritional; endocrine; and metabolic disorders (15 sources) Obesity; Translations: [Class 1 obesity with serious comorbidity and body mass index (BMI) of 31.0 to 31.9 in adult, unspecified obesity type] Onset: 5 02-16-2025 Chronic Other upper respiratory infections (5 sources) Acute upper respiratory infection; Translations: [Acute upper respiratory infection, unspecified] Onset: 5 11-02-2023 Episodic Residual codes; unclassified (2 sources) Medical care unavailable; Translations: [Procedure and treatment not carried out for other reasons] 03-19-2024 Episodic Residual codes; unclassified (1 source) Pain Onset: Episodic Septicemia (except in labor) (15 sources) Sepsis; Translations: [Sepsis, unspecified organism] Episodic Skin and subcutaneous tissue infections (16 sources) Cellulitis of lower limb; Translations: [Cellulitis of left lower limb] Episodic Spondylosis; intervertebral disc disorders; other back problems (1 source) Acute back pain with sciatica; Translations: [Lumbago with sciatica, left side] 11-23-2024 Episodic Sprains and strains (13 sources) Sprain of foot; Translations: [Unspecified sprain of right foot, initial encounter] 06-25-2022 Episodic Superficial injury; contusion (4 sources) Contusion of rib; Translations: [Contusion of left front wall of thorax, initial encounter] Episodic Unclassified (1 source) IN 3-4 WEEKS Unclassified (1 source) HAVE HER SCHEDULE A HIDA SCAN TO CHECK OUT YOUR GALLBLADDER FUNCTION Unclassified (1 source) Subacute cough 03-30-2025 Unclassified (1 source) Subacute cough; Translations: [Subacute cough] Onset: 5 Unclassified (1 source) Acute cough; Translations: [Acute cough] Onset: 5 Urinary tract infections (4 sources) Recurrent urinary tract infection; Translations: [Urinary tract infection, site not specified] Episodic Past or Other Problems Problem Classification Problem Date Documented Date Episodic/Chronic Abdominal pain (9 sources) Right upper quadrant pain; Translations: [Right upper quadrant pain] Onset: 08-02-2024 12-15-2024 Episodic Biliary tract disease (3 sources) Biliary calculus; Translations: [Calculus of gallbladder without cholecystitis without obstruction] Onset: 10-28-2024 12-15-2024 Episodic Deficiency and other anemia (20 sources) Anemia; Translations: [Anemia, unspecified] Onset: 10-12-2024 10-12-2024 Episodic Deficiency and other anemia (3 sources) Anemia, unspecified; Translations: [Anemia, unspecified] Onset: 10-12-2024 Episodic Deficiency and other anemia (1 source) Iron deficiency anemia, unspecified; Translations: [Iron deficiency anemia, unspecified iron deficiency anemia type] Onset: 10-28-2024 Episodic Genitourinary symptoms and ill-defined conditions (7 sources) Dysuria; Translations: [Dysuria] Onset: 07-08-2024 Episodic Nutritional deficiencies (20 sources) Wernicke's disease; Translations: [Wernicke's encephalopathy] Onset: 03-05-2023 Episodic Other connective tissue disease (1 source) Pain in unspecified limb; Translations: [Pain in soft tissues of limb] Onset: 09-25-2023 Episodic Other connective tissue disease (1 source) Bursitis of right shoulder; Translations: [Bursitis of right shoulder] Onset: 02-07-2025 Episodic Other liver diseases (3 sources) Hepatic encephalopathy; Translations: [Hepatic encephalopathy (HCC)] Onset: 09-30-2024 01-02-2025 Episodic Other lower respiratory disease (1 source) Other forms of dyspnea; Translations: [GARZA (dyspnea on exertion)] Onset: 01-26-2025 Episodic Other nervous system disorders (20 sources) Metabolic encephalopathy; Translations: [Metabolic encephalopathy] Onset: 10-12-2021 Resolved: 08-14-2023 11-17-2021 Chronic Other non-traumatic joint disorders (8 sources) Pain in right shoulder; Translations: [Pain in joint, shoulder region] Onset: 01-26-2025 01-26-2025 Episodic Other screening for suspected conditions (not mental disorders or infectious disease) (8 sources) Patient encounter status; Translations: [Encounter for screening for malignant neoplasm of colon] Onset: 09-30-2024 03-05-2023 Episodic Residual codes; unclassified (20 sources) Hallucinations; Translations: [Hallucinations, unspecified] Onset: 10-06-2021 Resolved: 11-19-2023 11-17-2021 Episodic Residual codes; unclassified (20 sources) Insomnia; Translations: [Insomnia, unspecified] Onset: 09-06-2023 09-06-2023 Episodic Residual codes; unclassified (1 source) Procedure and treatment not carried out for other reasons; Translations: [Treatment not available] Onset: 03-19-2024 Episodic Residual codes; unclassified (1 source) Insomnia, unspecified; Translations: [Insomnia, unspecified type] Onset: 09-06-2023 Episodic Residual codes; unclassified (1 source) Other specified health status; Translations: [Transition of care] Onset: 10-28-2024 Episodic Unclassified (3 sources) Acute pain of right shoulder 02-07-2025 Viral infection (3 sources) Viral disease; Translations: [Viral infection, unspecified] Onset: 07-06-2024 07-06-2024 Episodic Results Test Name Value Interpretation Reference [facility] Letter Text Normal [facility] CNPCatie 04-19-2025 CNPN Telephone (PLMCYM) ----- DOMINIC JIMENEZ ([id number]) 1970 F Date Time Provider Department 04/19/25 JERALD NORRIS PLYM During your visit today, we recorded the following information about you: Sandy Valadez 04/19/2025 10:32 AM Signed LMOM for patient to call back to get scheduled for a new patient appointment for : Cough. AN Oshea Hannah 04/19/2025 11:44 AM Signed Patient called back to get scheduled. I advised patient that my providers here at [facility] are out until middle of May, and [facility] is out until at least late June / July. I offered patient appointment on 04.21.2025 with Margarita, and patient states that she will possibly call back to get scheduled. AN Oshea Allergies As of Date: 04/19/2025 Noted Allergy Reaction APAP (ACETAMINOPHEN) 03/04/2024 15 - Contraindication-Medical [place]* Comments: Patient states her GI doctor told her not to take this medication due to liver problems IBUPROFEN 03/04/2024 15 - Contraindication-Medical [place]* Comments: Patient states her GI doctor told her not to take this medication due to liver problems Date Reviewed: 04/16/2025 Reviewed by: Yovana Stewart Jr., EDGER HAND.OFFAL ICER POULTRY - Fully Assessed Reason for Visit: Appointment [[id number]] Prescriptions as of 04/19/2025 - albuterol HFA (PROVENTIL HFA, VENTOLIN HFA) 90 mcg/actuation inhaler Inhale 2 puffs as instructed every 4 hours as needed for wheezing/shortness of breath (as needed). - Brompheniramine-Pseudoeph -DM (BROMFED DM) 2-30-10 mg/5 mL syrup Take 10 mL by mouth four times a day as needed (Cold Symptoms) for up to 7 days. - Brompheniramine-Pseudoeph -DM (BROMFED DM) 2-30-10 mg/5 mL syrup Take 10 mL by mouth four times a day as needed. - gabapentin (NEURONTIN) 800 mg tablet Take 1 tablet by mouth three times a day for 90 days. - fluticasone (FLONASE) 50 mcg/actuation nasal spray Use 1 spray in each nostril two times a day. - citalopram (CELEXA) 20 mg tablet Take 1 tablet by mouth once daily. - traZODone (DESYREL) 100 mg tablet Take 2 tablets by mouth daily at bedtime. - progesterone micronized (PROMETRIUM) 100 mg capsule Take 1 capsule by mouth once daily. - tiZANidine HCl (ZANAFLEX) 2 mg capsule Take 1 capsule by mouth two times a day as needed for muscle spasm. - esterified estrogens-methylTESTOSTER one (ESTRATEST HS) 0.625-1.25 mg per tablet Take 1 tablet by mouth once daily. - dicyclomine (BENTYL) 10 mg capsule take 1 capsule by mouth twice daily as needed for pain - methocarbamol (ROBAXIN) 500 mg tablet Take 1 tablet by mouth three times a day. - solifenacin 10 mg tablet Take 1 tablet by mouth every afternoon. - ferrous sulfate (IRON, FERROUS SULFATE,) 325 mg (65 mg iron) tablet Take 325 mg by mouth two times a day. - DULoxetine (CYMBALTA) 60 mg capsule Take 1 capsule by mouth two times a day. - cholestyramine (QUESTRAN) 4 gram packet DISSOLVE IN WATER AND TAKE 1 POWDER PACKET BY MOUTH TWICE DAILY NEEDED - gabapentin (NEURONTIN) 100 mg capsule Take 1 capsule by mouth at bedtime as needed for up to 90 days. - lactulose 10 gram/15 mL solution Take 10 g by mouth three times daily as needed. - cranberry fruit extract (CRANBERRY EXTRACT) 500 mg tab Take 1 tablet by mouth three times daily. - d-mannose 500 mg cap Take 1,000 mg by mouth twice daily. - Magnesium 250 mg tab Take 250 mg by mouth once daily. - glucosamine/chondr paniagua A sod (GLUCOSAMINE-CHONDROITIN) 750-600 mg tab Take 1 tablet by mouth once daily. - Lactobac no.41/Bifidobact no.7 (PROBIOTIC-10 ORAL) Take 1 tablet by mouth once daily. - Milk Thistle 175 mg tab Take 1 tablet by mouth once daily. - ginkgo biloba leaf extract 60 mg tab Take 1 tablet by mouth once daily. - famotidine (PEPCID) 40 mg tablet Take 40 mg by mouth daily at bedtime. - nadolol (CORGARD) 20 mg tablet Take 20 mg by mouth once daily. For 30 days - fnhwgblrskps-oxnmwaao-okl braun k-coenzyme Q-10 (DEKAS PLUS) 200 mcg-1,000 mcg-10 mg chewable tablet Take 1 tablet by mouth once daily. - folic acid 1 mg tablet Take 1 mg by mouth once daily. - pantoprazole DR (PROTONIX) 40 mg tablet Take 40 mg by mouth once daily. - thiamine (VITAMIN B1) 100 mg tablet Take 100 mg by mouth once daily. - cholecalciferol (VITAMIN D3) 5,000 unit tab Take 5,000 Units by mouth once daily. Problem List As Of Date 04/19/2025 Noted Resolved Hallucinations [R44.3] 10/06/2021 11/19/2023 Delirium due to multiple etiologies, acute, hyp*10/07/2021 08/14/2023 Depression [F32.A] 10/07/2021 Acute metabolic encephalopathy [G93.41] 10/12/2021 08/14/2023 Malnutrition of moderate degree (HCC) [E44.0] 10/31/2021 08/14/2023 Hyperlipidemia [E78.5] 05/08/2023 Diagnosed: 08/14/2023 Alcoholic hepatitis [K70.10] 03/05/2023 08/14/2023 Diagnosed: 08/14/2023 Hepatic cirrhosis (HCC) [K74.60] 07/16/2022 Diagnosed: 08/14/2023 Neuropathy [G62.9] (more content not included)... [facility] CNOVon 04-16-2025 CNOV Office Visit (MMAS ) ----- DOMINIC JIMENEZ ([id number]) 1970 F Date Time Provider Department 04/16/25 6:30 PM [facility] During your visit today, we recorded the following information about you: Temperature Pulse Respiration Blood pressure 97.9 degrees 78/minute 18/minute 137/83 Weight 100 kg Yovana Stewart Jr., EDGER HAND.OFFAL ICER POULTRY 04/16/2025 7:20 PM Signed We discussed your persistent throat symptoms and cough: - I prescribed an albuterol inhaler to help open your airways and potentially improve your symptoms. This has been sent to the [facility] in [place], which is open 24 hours. Please use the inhaler as directed: - Shake it for 2 minutes before use. - Take one puff as needed, ensuring you wait a few hours after taking nadolol to avoid potential interactions. - I recommended trying Mucinex (guaifenesin), which is available over the counter, to help liquefy the phlegm and make it easier to clear. Follow the dosing instructions on the package. - Continue using Bromfed DM as needed for your cough, up to 3-4 times daily. Be aware that it may cause drowsiness, so it is best taken at night if it makes you sleepy. We discussed your follow-up care: - Please follow up with the director of manufacturing operations as soon as possible for further evaluation, including a pulmonary function test, to assess for conditions such as asthma or COPD. - If your symptoms worsen or do not improve despite these treatments, please contact our office or the director of manufacturing operations. Additional notes: - Continue taking nadolol as prescribed by your GI doctor. Remember to space out the timing of nadolol and albuterol to avoid potential breathing issues. - If you have any questions about using the inhaler or other medications, please let us know. Yovana Stewart Jr., EDGER HAND.OFFAL ICER POULTRY 04/16/2025 7:26 PM Signed [facility] Subjective Dominic Jimenez is a 55 year old female. Patient presents with: Cough: Congestion both over 2 months HPI Dominic is a 55-year-old female, with a history of esophageal varices, presenting with persistent phlegm and cough. Dominic reports a 2.5 month history of persistent phlegm and cough, which is worse at night. She describes the phlegm as being stuck in her throat, making it difficult to breathe and cough effectively. She has tried Mucinex in the past without relief. She denies fever, cephalalgia, nausea, or emesis. She has not tried any allergy medications such as Marilu, Claritin, or Zyrtec due to concerns about liver health. She has undergone two chest x-rays in January and February, both of which were reportedly clear. She has also completed two rounds of steroids and antibiotics, including a Z-Santiago, without significant improvement. She is currently taking Bromfed DM, which has provided some relief for her cough but has not resolved the phlegm issue. She has not been prescribed an albuterol inhaler previously. She is currently taking nadolol, prescribed by her GI doctor, for esophageal varices. She denies a history of smoking. Review of Systems Constitutional: (-) fever Head: (-) headache Ears/Nose/Mouth/Throat: (+) throat phlegm, (+) hoarseness Respiratory: (+) cough worse at night, (+) shortness of breath Gastrointestinal: (-) nausea, (-) vomiting Objective BP 137/83 Pulse 78 Temp 36.6 ?C (97.9 ?F) Resp 18 Wt 100 kg (220 lb 6.4 oz) SpO2 100% BMI 32.55 kg/m? Physical Exam General: No acute distress. HEENT: Tympanic membranes pearly [place]field bilaterally, no signs of infection; no tenderness to palpation, bilateral anterior, maxillary and frontal sinuses. CV: Heart sounds normal, regular rhythm. Resp: Lungs clear to auscultation bilaterally. Abd: Bowel sounds normal; no tenderness to palpation. Skin: Warm and dry. {1. Chest congestion (R09.89) Acute cough (R05.1) Persistent chest congestion and cough for over two months, unresponsive to two courses of antibiotics and steroids. Chest X-rays from January and February were clear. No history of smoking. Lungs clear to auscultation on exam. Currently taking Bromfed DM with some relief. No fever, headache, nausea, or vomiting reported. No tenderness to abdominal palpation. Bilateral anterior, maxillary, and frontal sinuses non-tender to palpation. Tympanic membranes are pearly mayfield with no signs of infection. Currently on nadolol daily. - Prescribed albuterol inhaler to be used with a few hours interval from nadolol administration. - Recommended [id number] Mucinex (guaifenesin) to liquefy mucus. - Continue Bromfed DM as needed, primarily at night due to sedative effects. - Follow up with director of manufacturing operations as referred by primary care physician. - Sent prescriptions to [facility] in [place], a 24-hour pharmacy. I discussed side effects of using the albuterol inhaler and that all close together recommended she keep those (more content not included)... Normal [facility] 03-30-2025 [facility] Office Visit ([facility] ) ----- JIMENEZDOMINIC K ([id number]) 1970 F Date Time Provider Department 03/30/25 8:55 PM [facility] During your visit today, we recorded the following information about you: Temperature Pulse Respiration Blood pressure 98.4 degrees 87/minute 18/minute 146/85 Weight 98.5 kg Baldev Reyes MD 03/30/2025 9:15 PM Signed [facility] Subjective Dominic Jimenez is a 55 year old female. Patient presents with: Cough, Sore Throat : Eight to nine weeks. Bilateral Ear Pain : One week 55-year-old female presented here complaint congestion sore throat and a cough no fevers no chills no other complaint. Review of Systems HENT: Positive for congestion. Respiratory: Positive for cough. All other systems reviewed and are negative. Objective BP 146/85 (BP Position: Sitting) Pulse 87 Temp 36.9 ?C (98.4 ?F) Resp 18 Wt 98.5 kg (217 lb 3.2 oz) SpO2 98% BMI 32.07 kg/m? Physical Exam Vitals and nursing note reviewed. Constitutional: Appearance: Normal appearance. HENT: Head: Normocephalic and atraumatic. Right Ear: Tympanic membrane, ear canal and external ear normal. Left Ear: Tympanic membrane, ear canal and external ear normal. Nose: Congestion and rhinorrhea present. Mouth/Throat: Mouth: Mucous membranes are moist. Eyes: Extraocular Movements: Extraocular movements intact. Pupils: Pupils are equal, round, and reactive to light. Cardiovascular: Rate and Rhythm: Normal rate and regular rhythm. Pulses: Normal pulses. Heart sounds: Normal heart sounds. Pulmonary: Effort: Pulmonary effort is normal. Breath sounds: Normal breath sounds. Neurological: Mental Status: She is alert. {ASSESSMENT/PLAN: 1. Acute upper respiratory infection - ICD9: 465.9, ICD10: J06.9 (primary diagnosis) Z-Santiago take as directed patient follow-up as needed 2. Acute cough - ICD9: 786.2, ICD10: R05.1 Bromfed-DM 2 teaspoon p.o. 3 times daily 3. Bronchitis - ICD9: 490, ICD10: J40 Prednisone 20 mg twice a day for 3 days Baldev Reyes MD MDM Procedures Allergies As of Date: 03/30/2025 Noted Allergy Reaction APAP (ACETAMINOPHEN) 03/04/2024 15 - Contraindication-Medical [place]* Comments: Patient states her GI doctor told her not to take this medication due to liver problems IBUPROFEN 03/04/2024 15 - Contraindication-Medical [place]* Comments: Patient states her GI doctor told her not to take this medication due to liver problems Date Reviewed: 03/30/2025 Reviewed by: Baldev Reyes MD - Fully Assessed Reason for Visit: Cough, Sore Throat [Other] Cmt: Eight to nine weeks. Bilateral Ear Pain [Other] Cmt: One week Primary Visit Diagnosis:Acute upper respiratory infection [J06.9] Other Visit Diagnoses:Acute cough [R05.1] Bronchitis [J40] Order(s):predniSONE (DELTASONE) 20 mg tabletTake 1 tablet by mouth two times a day for 3 days.Disp: 6 tabletRfl: 0 Brompheniramine-Pseudoeph -DM (BROMFED DM) 2-30-10 mg/5 mL syrupTake 10 mL by mouth four times a day as needed.Disp: 180 mLRfl: 0 azithromycin (ZITHROMAX) 250 mg tabletTake 2 tablets by mouth once daily for 1 day, THEN 1 tablet once daily for 4 days.Disp: 6 tabletRfl: 0 Prescriptions as of 03/30/2025 - predniSONE (DELTASONE) 20 mg tablet Take 1 tablet by mouth two times a day for 3 days. - Brompheniramine-Pseudoeph -DM (BROMFED DM) 2-30-10 mg/5 mL syrup Take 10 mL by mouth four times a day as needed. - azithromycin (ZITHROMAX) 250 mg tablet Take 2 tablets by mouth once daily for 1 day, THEN 1 tablet once daily for 4 days. - gabapentin (NEURONTIN) 800 mg tablet Take 1 tablet by mouth three times a day for 90 days. - fluticasone (FLONASE) 50 mcg/actuation nasal spray Use 1 spray in each nostril two times a day. - citalopram (CELEXA) 20 mg tablet Take 1 tablet by mouth once daily. - traZODone (DESYREL) 100 mg tablet Take 2 tablets by mouth daily at bedtime. - progesterone micronized (PROMETRIUM) 100 mg capsule Take 1 capsule by mouth once daily. - tiZANidine HCl (ZANAFLEX) 2 mg capsule Take 1 capsule by mouth two times a day as needed for muscle spasm. - esterified estrogens-methylTESTOSTER one (ESTRATEST HS) 0.625-1.25 mg per tablet Take 1 tablet by mouth once daily. - dicyclomine (BENTYL) 10 mg capsule take 1 capsule by mouth twice daily as needed for pain - methocarbamol (ROBAXIN) 500 mg tablet Take 1 tablet by mouth three times a day. - solifenacin 10 mg tablet Take 1 tablet by mouth every afternoon. - ferrous sulfate (IRON, FERROUS SULFATE,) 325 mg (65 mg iron) tablet Take 325 mg by mouth two times a day. - DULoxetine (CYMBALTA) 60 mg capsule Take 1 capsule by mouth two times a day. - cholestyramine (QUESTRAN) 4 gram packet DISSOLVE IN WATER AND TAKE 1 POWDER PACKET BY MOUTH TWICE DAILY NEEDED - gabapentin (NEURONTIN) 100 mg capsule Take 1 (more content not included)... [facility] 03-30-2025 CNPN Telephone (FAMAAR) ----- NEDDOMINIC Jacky ([id number]) 1970 F Date Time Provider Department 03/30/25 AURE CARLTON FAMAAR During your visit today, we recorded the following information about you: Zi Jerome MA 03/30/2025 10:23 AM Signed Dominic still has ongoing problems with her cough 9 weeks later, is very dry and sore and tessaldanny perles only helped with some of the soreness, is there anything you would recommend to help her get over the cough at this point? Zi Jerome MA March 30, 2025 10:22 AM Aure Carlton, VERNA.[facility] 03/30/2025 11:04 AM Addendum Will refer to pulmonology. Please have her call [phone] to schedule. Aure Carlton APRN.[facility] 03/30/2025 11:04 AM Signed Addended by: AURE CARLTON on: 03/30/2025 11:04 AM Modules accepted: Dyan WaderosannaZi MA 03/31/2025 9:38 AM Signed Spoke with Dominic, she went to urgent care last night and got a zpack, prednisone and some bromfed. Told her that if those did not work she would still have the pulmonology referral to call in and get set up. Zi Jerome MA March 31, 2025 9:38 AM Allergies As of Date: 03/30/2025 Noted Allergy Reaction APAP (ACETAMINOPHEN) 03/04/2024 15 - Contraindication-Medical [place]* Comments: Patient states her GI doctor told her not to take this medication due to liver problems IBUPROFEN 03/04/2024 15 - Contraindication-Medical [place]* Comments: Patient states her GI doctor told her not to take this medication due to liver problems Date Reviewed: 03/30/2025 Reviewed by: Baldev Reyes MD - Fully Assessed Reason for Visit: Patient Update [1234] Orders [681] Primary Visit Diagnosis:Subacute cough [R05.2] Order(s):CONSULT TO PULM/CRITICAL CARE [20000125] Order #: [id number]: 1 FUTURE Prescriptions as of 03/31/2025 - predniSONE (DELTASONE) 20 mg tablet Take 1 tablet by mouth two times a day for 3 days. - Brompheniramine-Pseudoeph -DM (BROMFED DM) 2-30-10 mg/5 mL syrup Take 10 mL by mouth four times a day as needed. - azithromycin (ZITHROMAX) 250 mg tablet Take 2 tablets by mouth once daily for 1 day, THEN 1 tablet once daily for 4 days. - gabapentin (NEURONTIN) 800 mg tablet Take 1 tablet by mouth three times a day for 90 days. - fluticasone (FLONASE) 50 mcg/actuation nasal spray Use 1 spray in each nostril two times a day. - citalopram (CELEXA) 20 mg tablet Take 1 tablet by mouth once daily. - traZODone (DESYREL) 100 mg tablet Take 2 tablets by mouth daily at bedtime. - progesterone micronized (PROMETRIUM) 100 mg capsule Take 1 capsule by mouth once daily. - tiZANidine HCl (ZANAFLEX) 2 mg capsule Take 1 capsule by mouth two times a day as needed for muscle spasm. - esterified estrogens-methylTESTOSTER one (ESTRATEST HS) 0.625-1.25 mg per tablet Take 1 tablet by mouth once daily. - dicyclomine (BENTYL) 10 mg capsule take 1 capsule by mouth twice daily as needed for pain - methocarbamol (ROBAXIN) 500 mg tablet Take 1 tablet by mouth three times a day. - solifenacin 10 mg tablet Take 1 tablet by mouth every afternoon. - ferrous sulfate (IRON, FERROUS SULFATE,) 325 mg (65 mg iron) tablet Take 325 mg by mouth two times a day. - DULoxetine (CYMBALTA) 60 mg capsule Take 1 capsule by mouth two times a day. - cholestyramine (QUESTRAN) 4 gram packet DISSOLVE IN WATER AND TAKE 1 POWDER PACKET BY MOUTH TWICE DAILY NEEDED - gabapentin (NEURONTIN) 100 mg capsule Take 1 capsule by mouth at bedtime as needed for up to 90 days. - lactulose 10 gram/15 mL solution Take 10 g by mouth three times daily as needed. - cranberry fruit extract (CRANBERRY EXTRACT) 500 mg tab Take 1 tablet by mouth three times daily. - d-mannose 500 mg cap Take 1,000 mg by mouth twice daily. - Magnesium 250 mg tab Take 250 mg by mouth once daily. - glucosamine/chondr pani[place] A sod (GLUCOSAMINE-CHONDROITIN) 750-600 mg tab Take 1 tablet by mouth once daily. - Lactobac no.41/Bifidobact no.7 (PROBIOTIC-10 ORAL) Take 1 tablet by mouth once daily. - Milk Thistle 175 mg tab Take 1 tablet by mouth once daily. - ginkgo biloba leaf extract 60 mg tab Take 1 tablet by mouth once daily. - famotidine (PEPCID) 40 mg tablet Take 40 mg by mouth daily at bedtime. - nadolol (CORGARD) 20 mg tablet Take 20 mg by mouth once daily. For 30 days - tnihdsuqjyah-kiiazyih-hja braun k-coenzyme Q-10 (DEKAS PLUS) 200 mcg-1,000 mcg-10 mg chewable tablet Take 1 tablet by mouth once daily. - folic acid 1 mg tablet Take 1 mg by mouth once daily. - pantoprazole DR (PROTONIX) 40 mg tablet Take 40 mg by mouth once daily. - thiamine (VITAMIN B1) 100 mg tablet Take 100 mg by mouth once daily. - cholecalciferol (VITAMIN D3) 5,000 unit tab Take 5,000 Units by mouth once daily. Problem List As Of Date 03/30/2025 Noted Resolved Hallucinations [R44.3] 10/06/2021 11/19/2023 Delirium due to multiple etiologies, acute, hyp*10/07/2021 (more content not included)... [facility] CNPN Telephone (FAMAAR) ----- DOMINIC JIMENEZ ([id number]) 1970 F Date Time Provider Department 03/30/25 AURE CARLTON During your visit today, we recorded the following information about you: Allergies As of Date: 03/30/2025 Noted Allergy Reaction APAP (ACETAMINOPHEN) 03/04/2024 15 - Contraindication-Medical [place]* Comments: Patient states her GI doctor told her not to take this medication due to liver problems IBUPROFEN 03/04/2024 15 - Contraindication-Medical [place]* Comments: Patient states her GI doctor told her not to take this medication due to liver problems Date Reviewed: 02/16/2025 Reviewed by: Aure Carlton APRN.[employer] [facility] [facility] - Fully Assessed Reason for Visit: Results [95] Primary Visit Diagnosis:Hyperlipidemia, unspecified hyperlipidemia type [E78.5] Other Visit Diagnoses:Alcoholic cirrhosis of liver without ascites (HCC) [K70.30] Thrombocytopenia, unspecified [D69.6] Prediabetes [R73.03] Order(s):COMPREHENSIVE METABOLIC PANEL [SQCMP] Order #: [id number] FUTURE LIPID PANEL, FASTING [SQLIPB] Order #: [id number] FUTURE HEMOGLOBIN A1C [YQPAZ2P] Order #: [id number] FUTURE COMPLETE BLOOD COUNT AND DIFFERENTIAL [SQCBCDIF] Order #: [id number] FUTURE Prescriptions as of 03/30/2025 - gabapentin (NEURONTIN) 800 mg tablet Take 1 tablet by mouth three times a day for 90 days. - fluticasone (FLONASE) 50 mcg/actuation nasal spray Use 1 spray in each nostril two times a day. - Benzonatate 200 mg capsule Take 1 capsule by mouth three times a day as needed for cough. - citalopram (CELEXA) 20 mg tablet Take 1 tablet by mouth once daily. - traZODone (DESYREL) 100 mg tablet Take 2 tablets by mouth daily at bedtime. - progesterone micronized (PROMETRIUM) 100 mg capsule Take 1 capsule by mouth once daily. - tiZANidine HCl (ZANAFLEX) 2 mg capsule Take 1 capsule by mouth two times a day as needed for muscle spasm. - esterified estrogens-methylTESTOSTER one (ESTRATEST HS) 0.625-1.25 mg per tablet Take 1 tablet by mouth once daily. - dicyclomine (BENTYL) 10 mg capsule take 1 capsule by mouth twice daily as needed for pain - methocarbamol (ROBAXIN) 500 mg tablet Take 1 tablet by mouth three times a day. - solifenacin 10 mg tablet Take 1 tablet by mouth every afternoon. - hydrOXYzine pamoate (VISTARIL) 25 mg capsule TAKE 1 CAPSULE BY MOUTH EVERY 12 HOURS NEEDED FOR ANXIETY - ferrous sulfate (IRON, FERROUS SULFATE,) 325 mg (65 mg iron) tablet Take 325 mg by mouth two times a day. - DULoxetine (CYMBALTA) 60 mg capsule Take 1 capsule by mouth two times a day. - cholestyramine (QUESTRAN) 4 gram packet DISSOLVE IN WATER AND TAKE 1 POWDER PACKET BY MOUTH TWICE DAILY NEEDED - gabapentin (NEURONTIN) 100 mg capsule Take 1 capsule by mouth at bedtime as needed for up to 90 days. - lactulose 10 gram/15 mL solution Take 10 g by mouth three times daily as needed. - cranberry fruit extract (CRANBERRY EXTRACT) 500 mg tab Take 1 tablet by mouth three times daily. - d-mannose 500 mg cap Take 1,000 mg by mouth twice daily. - Magnesium 250 mg tab Take 250 mg by mouth once daily. - glucosamine/chondr paniagua A sod (GLUCOSAMINE-CHONDROITIN) 750-600 mg tab Take 1 tablet by mouth once daily. - Lactobac no.41/Bifidobact no.7 (PROBIOTIC-10 ORAL) Take 1 tablet by mouth once daily. - Milk Thistle 175 mg tab Take 1 tablet by mouth once daily. - ginkgo biloba leaf extract 60 mg tab Take 1 tablet by mouth once daily. - famotidine (PEPCID) 40 mg tablet Take 40 mg by mouth daily at bedtime. - nadolol (CORGARD) 20 mg tablet Take 20 mg by mouth once daily. For 30 days - ihsndfoitmsg-bqlnwffj-rja braun k-coenzyme Q-10 (DEKAS PLUS) 200 mcg-1,000 mcg-10 mg chewable tablet Take 1 tablet by mouth once daily. - folic acid 1 mg tablet Take 1 mg by mouth once daily. - pantoprazole DR (PROTONIX) 40 mg tablet Take 40 mg by mouth once daily. - thiamine (VITAMIN B1) 100 mg tablet Take 100 mg by mouth once daily. - cholecalciferol (VITAMIN D3) 5,000 unit tab Take 5,000 Units by mouth once daily. Problem List As Of Date 03/30/2025 Noted Resolved Hallucinations [R44.3] 10/06/2021 11/19/2023 Delirium due to multiple etiologies, acute, hyp*10/07/2021 08/14/2023 Depression [F32.A] 10/07/2021 Acute metabolic encephalopathy [G93.41] 10/12/2021 08/14/2023 Malnutrition of moderate degree (HCC) [E44.0] 10/31/2021 08/14/2023 Hyperlipidemia [E78.5] 05/08/2023 Diagnosed: 08/14/2023 Alcoholic hepatitis [K70.10] 03/05/2023 08/14/2023 Diagnosed: 08/14/2023 Hepatic cirrhosis (HCC) [K74.60] 07/16/2022 Diagnosed: 08/14/2023 Neuropathy [G62.9] 10/19/2021 Diagnosed: 08/14/2023 Wernicke's disease [E51.2] 03/05/2023 Diagnosed: 08/14/2023 Alcoholic cirrhosis (HCC) [K70.30] Insomnia [G47.00] 09/06/2023 Anxiety [F41.9] 09/06/2023 Vitamin D deficiency, unspecified [E55.9] 05/08/2023 Diagnosed: 11/19/2023 Polyneu (more content not included)... [facility] JIM[facility] ([id number]) 1970 F Date Time Provider Department 03/16/25 AURE CARLTON During your visit today, we recorded the following information about you: Umesh Chavez, [facility] 03/16/2025 3:26 PM Signed Patient called into the office wanting to know what to do about her A1c, ferratin, is it ok? Also low platelets? What should be done at this? Should she see a High Wire Artist. Wants to know what RDW-CV abnormal means. Wants to know what to do about her high cholesterol. Please advise. Aure Carlton APRN.CNP 03/16/2025 6:56 PM Signed She was supposed to make appt with hematology. Per last OV, States she believes that GI referred her to hematology, but she was supposed to check with her insurance to see who is in network and has not done that yet. Does not have scheduled appointment with hematology to follow-up on iron deficiency anemia. Did she find out who insurance covers? RDW-CV just means how much the red blood cells are varying in size. Since this is decreasing I would not be concerned about it. Her chest x-ray is normal A1c is elevated at 6.0% and her cholesterol is worse, total is 205 and LDL is 162 with decreasing HDL. She needs to watch her diet better, cut back on carbs and saturated fat. Zi Jerome MA 03/17/2025 1:38 PM Signed Gave patient updates from lab work and recommendations, patient still needs to follow up with hematology but has not yet. Zi Jerome MA March 17, 2025 1:38 PM Allergies As of Date: 03/16/2025 Noted Allergy Reaction APAP (ACETAMINOPHEN) 03/04/2024 15 - Contraindication-Medical [place]* Comments: Patient states her GI doctor told her not to take this medication due to liver problems IBUPROFEN 03/04/2024 15 - Contraindication-Medical [place]* Comments: Patient states her GI doctor told her not to take this medication due to liver problems Date Reviewed: 02/16/2025 Reviewed by: Aure Carlton APRN.[employer] [facility] - Fully Assessed Reason for Visit: Results [95] Patient Question [1867] Prescriptions as of 03/17/2025 - gabapentin (NEURONTIN) 800 mg tablet Take 1 tablet by mouth three times a day for 90 days. - fluticasone (FLONASE) 50 mcg/actuation nasal spray Use 1 spray in each nostril two times a day. - Benzonatate 200 mg capsule Take 1 capsule by mouth three times a day as needed for cough. - citalopram (CELEXA) 20 mg tablet Take 1 tablet by mouth once daily. - traZODone (DESYREL) 100 mg tablet Take 2 tablets by mouth daily at bedtime. - progesterone micronized (PROMETRIUM) 100 mg capsule Take 1 capsule by mouth once daily. - tiZANidine HCl (ZANAFLEX) 2 mg capsule Take 1 capsule by mouth two times a day as needed for muscle spasm. - esterified estrogens-methylTESTOSTER one (ESTRATEST HS) 0.625-1.25 mg per tablet Take 1 tablet by mouth once daily. - dicyclomine (BENTYL) 10 mg capsule take 1 capsule by mouth twice daily as needed for pain - methocarbamol (ROBAXIN) 500 mg tablet Take 1 tablet by mouth three times a day. - solifenacin 10 mg tablet Take 1 tablet by mouth every afternoon. - hydrOXYzine pamoate (VISTARIL) 25 mg capsule TAKE 1 CAPSULE BY MOUTH EVERY 12 HOURS NEEDED FOR ANXIETY - ferrous sulfate (IRON, FERROUS SULFATE,) 325 mg (65 mg iron) tablet Take 325 mg by mouth two times a day. - DULoxetine (CYMBALTA) 60 mg capsule Take 1 capsule by mouth two times a day. - cholestyramine (QUESTRAN) 4 gram packet DISSOLVE IN WATER AND TAKE 1 POWDER PACKET BY MOUTH TWICE DAILY NEEDED - gabapentin (NEURONTIN) 100 mg capsule Take 1 capsule by mouth at bedtime as needed for up to 90 days. - lactulose 10 gram/15 mL solution Take 10 g by mouth three times daily as needed. - cranberry fruit extract (CRANBERRY EXTRACT) 500 mg tab Take 1 tablet by mouth three times daily. - d-mannose 500 mg cap Take 1,000 mg by mouth twice daily. - Magnesium 250 mg tab Take 250 mg by mouth once daily. - glucosamine/chondr paniagua A sod (GLUCOSAMINE-CHONDROITIN) 750-600 mg tab Take 1 tablet by mouth once daily. - Lactobac no.41/Bifidobact no.7 (PROBIOTIC-10 ORAL) Take 1 tablet by mouth once daily. - Milk Thistle 175 mg tab Take 1 tablet by mouth once daily. - ginkgo biloba leaf extract 60 mg tab Take 1 tablet by mouth once daily. - famotidine (PEPCID) 40 mg tablet Take 40 mg by mouth daily at bedtime. - nadolol (CORGARD) 20 mg tablet Take 20 mg by mouth once daily. For 30 days - hiefsdqhmqpj-aksdelqm-dkp bruan k-coenzyme Q-10 (DEKAS PLUS) 200 mcg-1,000 mcg-10 mg chewable tablet Take 1 tablet by mouth once daily. - folic acid 1 mg tablet Take 1 mg by mouth once daily. - pantoprazole DR (PROTONIX) 40 mg tablet Take 40 mg by mouth once daily. - thiamine (VITAMIN B1) 100 mg tablet Take 100 mg by mouth once daily. - cholecalciferol (VITAMIN D3) 5,000 unit tab Take 5,000 Units by mouth once daily. Problem Li (more content not included)... Normal [facility] 25(OH)D3 SerPl-mCncon 2024 25-hydroxyvitamin D3 [Mass/Vol] 101.7 ng/mL High 30.0-100.0 [facility] Comment on above: Order Comment: Speci men Type: BLOOD SPECIMENOrdering Facility: [facility] Address: [address] [place] [address] Result Comment: Defi ciency\X09\Less than 20 ng/mL Insufficiency\X09\20 - Less than 30 ng/mL Sufficiency\X09\30 - 100 ng/mL Performed By: #### 1 989-3 ####[facility] LABORATORYCLIA [id number] [address] CBC panel Auto (Bld)on 03-13 Erythrocyte distribution width (RBC) [Ratio] 15.5 % High 11.5-15.0 [facility] Comment on above: Order Comment: Speci men Type: BLOOD SPECIMENOrdering Facility: [facility] Address: [address] [place] [address] Performed By: #### 5 8410-2 ####[facility]ORATORYCLIA [id number] [address] Hematocrit (Bld) [Volume fraction] 39.3 % Normal 36.0-46.0 [facility] Comment on above: Order Comment: Speci men Type: BLOOD SPECIMENOrdering Facility: [facility] Address: [address] [place] [address] Performed By: #### 5 8410-2 ####[facility]ORATORYCLIA [id number] [address] Hemoglobin (Bld) [Mass/Vol] 12.6 g/dL Normal 11.5-15.5 [facility] Comment on above: Order Comment: Speci men Type: BLOOD SPECIMENOrdering Facility: [facility] Address: [address] [place] [address] Performed By: #### 5 8410-2 ####[facility]ATORYCLIA [id number] [address] [place] MCH (RBC) [Entitic mass] 28.3 pg Normal 26.0-34.0 [facility] Comment on above: Order Comment: Speci men Type: BLOOD SPECIMENOrdering Facility: [facility] Address: [address] [place] [address] Performed By: #### 5 8410-2 ####[facility]ORATORYCLIA [id number] [address] [place] MCHC (RBC) [Mass/Vol] 32.1 g/dL Normal 30.5-36.0 [facility] Comment on above: Order Comment: Speci men Type: BLOOD SPECIMENOrdering Facility: [facility] Address: [address] [place] [address] Performed By: #### 5 8410-2 ####[facility]ATORYCLIA [id number] [address] [place] MCV (RBC) [Entitic vol] 88.3 fL Normal 80.0-100.0 [facility] Comment on above: Order Comment: Speci men Type: BLOOD SPECIMENOrdering Facility: [facility] Address: [address] [place] [address] Performed By: #### 5 8410-2 ####[facility]ORATORYCLIA [id number] [address] [place] Nucleated RBC (Bld) [#/Vol] 10*3/uL Normal <0.01 [facility] Comment on above: Order Comment: Speci men Type: BLOOD SPECIMENOrdering Facility: [facility] Address: [address] [place] [address] Performed By: #### 5 8410-2 ####[facility] LABORATORYCLIA [id number] [place] [id number] [place] Platelet mean volume (Bld) [Entitic vol] 12.1 fL Normal 9.0-12.7 [facility] Comment on above: Order Comment: Speci men Type: BLOOD SPECIMENOrdering Facility: [facility] Address: [address] [place] [address] Performed By: #### 5 8410-2 ####[facility]ORATORYCLIA [id number] [place] [id number] [place] Platelets (Bld) [#/Vol] 45 10*3/uL Low 150-400 [facility] Comment on above: Order Comment: Speci men Type: BLOOD SPECIMENOrdering Facility: [facility] Address: [address] [place] [address] Result Comment: Plat elet count confirmed by manual review of peripheral blood smear. No clot detected. Performed By: #### 5 8410-2 ####[facility]ORATORYCLIA [id number] [place] [id number] [place] RBC (Bld) [#/Vol] 4.45 10*6/uL Normal 3.90-5.20 [facility] Comment on above: Order Comment: Speci men Type: BLOOD SPECIMENOrdering Facility: [facility] Address: [address] [place] [address] Performed By: #### 5 8410-2 ####[facility]ORATORYCLIA [id number] [place] [id number] [place] WBC (Bld) [#/Vol] 5.28 10*3/uL Normal 3.70-11.00 [facility] Comment on above: Order Comment: Speci men Type: BLOOD SPECIMENOrdering Facility: [facility] Address: [address] [place] [address] Performed By: #### 5 8410-2 ####[facility]ORATORYCLIA [id number] [address] Comprehensive metabolic 2000 panelon 03-13-2025 Albumin [Mass/Vol] 3.7 g/dL Normal 3.2-5.0 [facility] Comment on above: Order Comment: Speci men Type: BLOOD SPECIMENOrdering Facility: [facility] Address: [address] [place] [address] Performed By: #### 2 4331-1 ####[facility] LABORATORYCLIA [id number] [address] LABCLIA [id number] [place] [address] [facility]#### 2276-4, 40716-9, 80768-8 ####[facility] LABORATORYCLIA [id number] [place] [id number] [facility] ALP [Catalytic activity/Vol] 37 U/L Low 45-117 [facility] Comment on above: Order Comment: Speci men Type: BLOOD SPECIMENOrdering Facility: [facility] Address: [address] [place] [address] Performed By: #### 2 4331-1 ####[facility] LABORATORYCLIA [id number] [address] LABCLIA [id number] [place] [address] [facility]#### 2276-4, 47294-6, 38139-4 ####[facility] LABORATORYCLIA [id number] [place] [address] [facility] ALT [Catalytic activity/Vol] 28 U/L Normal 13-61 [facility] Comment on above: Order Comment: Speci men Type: BLOOD SPECIMENOrdering Facility: [facility] Address: [address] [place] [address] Result Comment: Resu lts may be falsely depressed after the administration of Sulfasalazine and/or Sulfapyridine. Performed By: #### 2 4331-1 ####[facility] LABORATORYCLIA [id number] [place] [address] [facility] [place] LABCLIA [id number] [place] [address] [place]#### 2276-4, 86926-0, 74296-5 ####[facility] LABORATORYCLIA [id number] [place] [address] [place] Anion gap [Moles/Vol] 8 mmol/L Normal 5-16 [facility] Comment on above: Order Comment: Speci men Type: BLOOD SPECIMENOrdering Facility: [facility] Address: [address] [place] [address] Performed By: #### 2 4331-1 ####[facility] LABORATORYCLIA [id number] [place] [address] [facility] [place] LABCLIA [id number] [place], [place] [address] [place] [address] [place] [facility]#### 2276-4, 22926-6, 35062-8 ####[facility] LABORATORYCLIA [id number] [place] [address] [place] AST [Catalytic activity/Vol] 31 U/L Normal 8-34 [facility] Comment on above: Order Comment: Speci men Type: BLOOD SPECIMENOrdering Facility: [facility] Address: [address] [place] [address] Result Comment: Resu lts may be falsely depressed after the administration of Sulfasalazine and/or Sulfapyridine. Performed By: #### 2 4331-1 ####[facility] LABORATORYCLIA [id number] [place] [address] [facility] [place] LABCLIA [id number] [place], [place] [address] [place] [address] [place]#### 2276-4, 48938-5, 72908-5 ####[facility] LABORATORYCLIA [id number] [place] [address] [place] Bilirubin [Mass/Vol] 0.8 mg/dL Normal 0.2-1.0 [facility] Comment on above: Order Comment: Speci men Type: BLOOD SPECIMENOrdering Facility: [facility] Address: [address] [place] [address] [place] [address] Performed By: #### 2 4331-1 ####[facility] LABORATORYCLIA [id number] [address] [place] [facility] [place] LABCLIA [id number] [address] [place]#### 2276-4, 10948-7, 44028-1 ####[facility] LABORATORYCLIA [id number] [place] [address] [place] Calcium [Mass/Vol] 9.6 mg/dL Normal 8.5-10.5 [facility] Comment on above: Order Comment: Speci men Type: BLOOD SPECIMENOrdering Facility: [facility] Address: [address] [place] [address] Performed By: #### 2 4331-1 ####[facility] LABORATORYCLIA [id number] [address] [place] LABCLIA [id number] [address] OF [facility]#### 2276-4, 05465-6, 47321-5 ####[facility] LABORATORYCLIA [id number] [place] [address] [place] Chloride [Moles/Vol] 109 mmol/L High 98-107 [facility] Comment on above: Order Comment: Speci men Type: BLOOD SPECIMENOrdering Facility: [facility] Address: [address] [place] [address] Performed By: #### 2 4331-1 ####[facility] LABORATORYCLIA [id number] [address] [place] [facility] [place] LABCLIA [id number] [place] [address]#### 2276-4, 41160-8, 37286-6 ####[facility] LABORATORYCLIA [id number] [place] [address] [facility] CO2 [Moles/Vol] 24 mmol/L Normal 21-32 [facility] Comment on above: Order Comment: Speci men Type: BLOOD SPECIMENOrdering Facility: [facility] Address: [address] [place] [address] Performed By: #### 2 4331-1 ####[facility] LABORATORYCLIA [id number] [address] LABCLIA [id number] [address]#### 2276-4, 01503-5, 65982-7 ####[facility] LABORATORYCLIA [id number] [place] [address] [facility] Creatinine [Mass/Vol] 0.90 mg/dL Normal 0.51-0.95 [facility] Comment on above: Order Comment: Speci men Type: BLOOD SPECIMENOrdering Facility: [facility] Address: [address] [place] [address] Result Comment: Aretha ents receiving either N-Acetylcysteine (NAC) or Metamizole prior to venipuncture, may have falsely depressed results. Performed By: #### 2 4331-1 ####[facility] LABORATORYCLIA [id number] [address] [facility] LABCLIA [id number] [address]#### 2276-4, 98148-7, 58241-4 ####[facility] LABORATORYCLIA [id number] [place] [address] [facility] Creatinine and Glomerular filtration rate.predicted panel (S/P/Bld) 76 mL/min/1.73m??? Normal >=60 [facility] Comment on above: Order Comment: Jacquie reed Type: BLOOD SPECIMENOrdering Facility: [facility] Address: [address] [place] [id number] Result Comment: Perri mated Glomerular Filtration Rate (eGFR) is calculated using the 2020 CKD-EPI creatinine equation. This equation utilizes serum creatinine, sex, and age as parameters. The creatinine assay has traceable calibration to isotope dilution-mass spectrometry. Refer to KDIGO guidelines for clinical interpretation. In patients with unstable renal function, e.g. those with acute kidney injury, the eGFR may not accurately reflect actual GFR. Performed By: #### 2 4331-1 ####[facility] LABORATORYCLIA [id number] [place] [address] [facility] LABCLIA [id number] [place] [address] [facility]#### 2276-4, 03879-2, 53234-7 ####[facility] LABORATORYCLIA [id number] [place] [address] [place] Glucose [Mass/Vol] 99 mg/dL Normal 70-100 [facility] Comment on above: Order Comment: Jacquie reed Type: BLOOD SPECIMENOrdering Facility: [facility] Address: [address] [place] [address] Result Comment: The [place] Diabetes Association (ADA) provides guidance for cutoff values for fasting glucose and random glucose. The ADA defines fasting as no caloric intake for at least 8 hours. Fasting plasma glucose results between 100 to 125 mg/dL indicate increased risk for diabetes (prediabetes). Fasting plasma glucose results greater than or equal to 126 mg/dL meet the criteria for diagnosis of diabetes. In the absence of unequivocal hyperglycemia, results should be confirmed by repeat testing. In a patient with classic symptoms of hyperglycemia or hyperglycemic crisis, random plasma glucose results greater than or equal to 200 mg/dL meet the criteria for diagnosis of diabetes. Reference: Standards of Medical Care in Diabetes 2016, [place] Diabetes Association. Diabetes Care. 2016.39(Suppl 1). Results may be falsely elevated after the administration of Sulfapyridine. Results may be falsely depressed after the administration of Sulfasalazine. Performed By: #### 2 4331-1 ####[facility] LABORATORYCLIA [id number] [place] [address] [facility] [place] LABCLIA [id number] [address] OF [facility]#### 2276-4, 13646-2, 37176-4 ####[facility] LABORATORYCLIA [id number] [place] [address] [place] Potassium [Moles/Vol] 4.0 mmol/L Normal 3.5-5.1 [facility] Comment on above: Order Comment: Speci men Type: BLOOD SPECIMENOrdering Facility: [facility] Address: [address] [place] [address] Performed By: #### 2 4331-1 ####[facility] LABORATORYCLIA [id number] [address] [place] LABCLIA [id number] [place] [address]#### 2276-4, 25463-1, 18401-1 ####[facility] LABORATORYCLIA [id number] [place] [address] [place] Protein [Mass/Vol] 7.2 g/dL Normal 6.0-8.5 [facility] Comment on above: Order Comment: Speci men Type: BLOOD SPECIMENOrdering Facility: [facility] Address: [address] [place] [address] Performed By: #### 2 4331-1 ####[facility] LABORATORYCLIA [id number] [place] [address] [facility] [place] LABCLIA [id number] [address]#### 2276-4, 05425-3, 77446-1 ####[facility] LABORATORYCLIA [id number] [place] [address] [place] Sodium [Moles/Vol] 141 mmol/L Normal 136-145 [facility] Comment on above: Order Comment: Speci men Type: BLOOD SPECIMENOrdering Facility: [facility] Address: [address] [place], [place] [address] [address] Performed By: #### 2 4331-1 ####[facility] LABORATORYCLIA [id number] [place] [address] [place] [facility] [place] LABCLIA [id number] [place] [address] [place]#### 2276-4, 21771-3, 06784-4 ####[facility] LABORATORYCLIA [id number] [place] [address] [place] Urea nitrogen [Mass/Vol] 12 mg/dL Normal 06-12 [facility] Comment on above: Order Comment: Speci men Type: BLOOD SPECIMENOrdering Facility: [facility] Address: [address] [place] [address] Performed By: #### 2 4331-1 ####[facility] LABORATORYCLIA [id number] [place] [address] [facility] [place] LABCLIA [id number] [place] [address] [place]#### 2276-4, 47609-2, 26976-6 ####[facility] LABORATORYCLIA [id number] [place] [address] [place] Ferritin SerPl-mCncon 2024 Ferritin [Mass/Vol] 19.2 ng/mL Normal 8.0-307.0 [facility] Comment on above: Order Comment: Speci men Type: BLOOD SPECIMENOrdering Facility: [facility] Address: [address] [place] [address] Performed By: #### 2 4331-1 ####[facility] LABORATORYCLIA [id number] [place] [address] [place] [facility] [place] LABCLIA [id number] [place] [address] [place]#### 2276-4, 76972-1, 42750-0 ####[facility] LABORATORYCLIA [id number] [place] [address] [place] HbA1c (Bld)on 03-13-2025 Average glucose Estimated from glycated hemoglobin (Bld) [Mass/Vol] 126 mg/dL Normal [facility] Comment on above: Order Comment: Jacquie reed Type: BLOOD SPECIMENOrdering Facility: [facility] Address: [address] [place] [address] Result Comment: eAG: (Estimated average glucose) is a calculated value from HgbA1c and is workforce services representative of the average blood glucose level in the last 2-3 month period. Performed By: #### 5 5454-3 ####[facility] LABCLIA [id number] [address] [place] HbA1c (Bld) [Mass fraction] 6.0 % High 4.3-5.6 [facility] Comment on above: Order Comment: Jacquie [facility] Type: BLOOD SPECIMENOrdering Facility: [facility] Address: [address] [place] [address] Result Comment: Amer ican Diabetes Association guidelines indicate that patients with HgbA1c in the range 5.7-6.4% are at increased risk for development of diabetes, and intervention by lifestyle modification may be beneficial. HgbA1c greater or equal to 6.5% is considered diagnostic of diabetes. Performed By: #### 5 5454-3 ####[facility] LABCLIA [id number] [place] [id number] [place] Iron and Iron binding capaci ty panelon 03-13-2025 Iron [Mass/Vol] 83 ug/dL Normal 50-170 [facility] Comment on above: Order Comment: Jacquie reed Type: BLOOD SPECIMENOrdering Facility: [facility] Address: [address] [place] [address] Result Comment: Aretha ents treated with metal-binding drugs (e.g.deferoxamine) may have depressed iron values, as chelated iron may not properly react in the Siemens iron assay. Performed By: #### 2 4331-1 ####[facility] LABORATORYCLIA [id number] [address] LABCLIA [id number] [place], [place] [address] [place] [address] [place]#### 2276-4, 90556-8, 72029-3 ####[facility] LABORATORYCLIA [id number] [place] [address] [place] Iron binding capacity [Mass/Vol] 360 ug/dL Normal 221-481 [facility] Comment on above: Order Comment: Speci men Type: BLOOD SPECIMENOrdering Facility: [facility] Address: [address] [place] [address] Performed By: #### 2 4331-1 ####[facility] LABORATORYCLIA [id number] [address] LABIA [id number] [address]#### 2276-4, 14242-6, 88742-6 ####[facility]ENTERCL[facility] [id number] [place] [address] [facility] Iron/TIBC [Molar ratio] 23.1 % Normal 22.0-44.0 [facility] Comment on above: Order Comment: Speci men Type: BLOOD SPECIMENOrdering Facility: [facility] Address: [address] [place] [address] Performed By: #### 2 4331-1 ####[facility] LABORATORYCLIA [id number] [place] [address] [facility] LABIA [id number] [address] [place]#### 2276-4, 37784-7, 10423-7 ####[facility] LABORATORYCLIA [id number] [address] Lipid 1996 panelon 5 Cholesterol [Mass/Vol] 205 mg/dL High 0-199 [facility] Comment on above: Order Comment: Speci men Type: BLOOD SPECIMENOrdering Facility: [facility] Address: [address] [place] [address] Result Comment: <200 mg/dL, Desirable 200-239 mg/dL, Borderline high >239 mg/dL, High Performed By: #### 2 4331-1 ####[facility] LABORATORYCLIA [id number] [address] [place] LABCLIA [id number] [address] [place]#### 2276-4, 84650-1, 61970-1 ####[facility] LABORATORYCLIA [id number] [address] Cholesterol in HDL [Mass/Vol] 26 mg/dL Low >40 [facility] Comment on above: Order Comment: Speci men Type: BLOOD SPECIMENOrdering Facility: [facility] Address: [address] [place] [address] Result Comment: 40-5 9 mg/dL, Acceptable >59 mg/dL, High: Negative risk factor for coronary heart disease <40 mg/dL, Low: Positive risk factor for coronary heart disease Performed By: #### 2 4331-1 ####[facility] LABORATORYCLIA [id number] [address] [place] LABCLIA [id number] [address] OF [place]#### 2276-4, 51440-6, 75162-6 ####[facility] LABORATORYCLIA [id number] [place] [address] [facility] Cholesterol in LDL [Mass/Vol] 162 mg/dL High 0-129 [facility] Comment on above: Order Comment: Speci men Type: BLOOD SPECIMENOrdering Facility: [facility] Address: [address] [place] [address] Result Comment: <100 mg/dL, Optimal 100-129 mg/dL, Near optimal/above optimal 130-159 mg/dL, Borderline high 160-189 mg/dL, High >189 mg/dL, Very high Secondary prevention optimal LDL Cholesterol levels are recommended to be <70 mg/dL LDL cholesterol is calculated using the Robin-NIH equation. Performed By: #### 2 4331-1 ####[facility] LABORATORYCLIA [id number] [address] LABCLIA [id number] [address]#### 2276-4, 36093-8, 33925-2 ####[facility] LABORATORYCLIA [id number] [place] [address] [place] [facility] Cholesterol in LDL/Cholesterol in HDL [Mass ratio] 6.23 {ratio} High <2.54 [facility] Comment on above: Order Comment: Speci men Type: BLOOD SPECIMENOrdering Facility: [facility] Address: [address] [place] [address] Result Comment: Flakito taylor: 1. National Cholesterol Education Program ATP III Guideline At-A-Glance Quick Desk Reference: National Heart, Lung, and Blood Cropsey. National Institutes of Health. 2001: NIH Publication No. 01-3305. 2. An International Atherosclerosis Society position paper: global recommendations for the management of dyslipidemia: executive summary, Atherosclerosis. 2014: 232(2):410-413. Performed By: #### 2 4331-1 ####[facility] LABORATORYCLIA [id number] [place] [address] [facility] LABCLIA [id number] [address]#### 2276-4, 89648-7, 60814-2 ####[facility] LABORATORYCLIA [id number] [place] [address] [place] Cholesterol in VLDL [Mass/Vol] 18 mg/dL Normal <30 [facility] Comment on above: Order Comment: Speci men Type: BLOOD SPECIMENOrdering Facility: [facility] Address: [address] [place] [address] Performed By: #### 2 4331-1 ####[facility] LABORATORYCLIA [id number] [place] [address] [facility] LABCLIA [id number] [place], [place] [address] [place] [address]#### 2276-4, 39885-8, 32274-2 ####[facility] LABORATORYCLIA [id number] [place] [address] [facility] Cholesterol non HDL [Mass/Vol] 179 mg/dL High <130 [facility] Comment on above: Order Comment: Speci men Type: BLOOD SPECIMENOrdering Facility: [facility] Address: [address] [place] [address] Result Comment: <130 mg/dL, Optimal 130-159 mg/dL, Near optimal/above optimal 160-189 mg/dL, Borderline high 190-219 mg/dL, High >219 mg/dL, Very high Secondary prevention optimal non HDL Cholesterol levels are recommended to be <100 mg/dL Performed By: #### 2 4331-1 ####[facility] LABORATORYCLIA [id number] [place] [address] [facility] LABCLIA [id number] [place], [place] [address] [place] [address] OF [facility]#### 2276-4, 56330-4, 50967-6 ####[facility] LABORATORYCLIA [id number] [place] [address] [facility] Cholesterol.total/Cho lesterol in HDL [Mass ratio] 7.88 {ratio} High <5.10 [facility] Comment on above: Order Comment: Speci men Type: BLOOD SPECIMENOrdering Facility: [facility] Address: [address] [place] [address] Performed By: #### 2 4331-1 ####[facility] LABORATORYCLIA [id number] [place] [address] [facility] [place] LABCLIA [id number] [address]#### 2276-4, 87232-8, 10800-9 ####[facility] LABORATORYCLIA [id number] [place] [address] [place] FASTING TIME 10 hrs Normal [facility] Comment on above: Order Comment: Speci men Type: BLOOD SPECIMENOrdering Facility: [facility] Address: [address] [place] [address] Performed By: #### 2 4331-1 ####[facility] LABORATORYCLIA [id number] [place] [address] [facility] [place] LABCLIA [id number] [address]#### 2276-4, 39129-9, 54577-8 ####[facility] LABORATORYCLIA [id number] [place] [address] [place] [facility] Triglyceride [Mass/Vol] 92 mg/dL Normal 30-149 [facility] Comment on above: Order Comment: Speci men Type: BLOOD SPECIMENOrdering Facility: [facility] Address: [address] [place] [address] Result Comment: <150 mg/dL, Normal 150-199 mg/dL, Borderline high 200-499 mg/dL, High >499 mg/dL, Very high Patients receiving either N-Acetylcysteine (NAC) or Metamizole prior to venipuncture, may have falsely depressed results. Performed By: #### 2 4331-1 ####[facility] LABORATORYCLIA [id number] [place] [address] [facility] [place] LABCLIA [id number] [address] [place]#### 2276-4, 10036-7, 80963-9 ####[facility] LABORATORYCLIA [id number] [place] [address] [facility] PT panel Coag (PPP)on 2024 INR Coag (PPP) [Relative time] 1.2 {INR} Normal 0.8-1.2 [facility] Comment on above: Order Comment: Speci brianna Type: BLOOD SPECIMENOrdering Facility: External Submitter Address: , , Result Comment: Ramonita min K Antagonist (VKA) Therapeutic Range: INR 2 to 3 (Target INR of 2.5) Note: For patients treated with VKA drugs, such as warfarin, the [place] College [employer] 2012 Guideline recommends a therapeutic INR range of 2 to 3 (target INR of 2.5). This recommendation includes high-risk patients with antiphospholipid syndrome with previous arterial or venous thromboembolism, current-generation mechanical or bioprosthetic aortic heart valve replacement. Note: Patients with mechanical aortic valve replacement and additional risk factors for thromboembolic events (atrial fibrillation, previous thromboembolism, LV dysfunction, hypercoagulable conditions) or an older generation mechanical AVR (i.e., ball in-Cage) or any mechanical MVR should have a INR therapeutic range of 2.5 to 3.5 (target INR of 3). Jerome GH, et al. Chest 2012, 141:7S-47S Evans RA, et al. [facility] 2017, 70: 252-289 Performed By: #### 3 4528-0 ####[facility] LABORATORYCLIA [id number] [place] [id number] [facility] PT Coag (PPP) [Time] 12.4 s Normal 10.1-15.1 [facility] Comment on above: Order Comment: Jacquie reed Type: BLOOD SPECIMENOrdering Facility: External Submitter Address: , , Result Comment: Run at [facility] on a [id number] Performed By: #### 3 4528-0 ####[facility] LABORATORYCLIA [id number] [place] [address] [facility] XR CHEST 2V FRONTAL/LATon XR CHEST 2V FRONTAL/LAT * * *Final Report* * * DATE OF EXAM: Mar 13 2025 3:10PM RMX [id number] - XR CHEST 2V FRONTAL/LAT / PROCEDURE REASON: Subacute cough * * * * Physician Interpretation * * * * EXAMINATION: CHEST RADIOGRAPH (2 VIEW FRONTAL and LATERAL) CLINICAL HISTORY: Subacute cough MQ: XC2_6 EXAM DATE/TIME: 03/13/2025 3:10 PM COMPARISON: 01/26/2025 RESULT: Lines, tubes, and devices: None. Lungs and pleura: No consolidation. No lung mass. No pleural effusion. No pneumothorax. Cardiomediastinal silhouette: Normal cardiomediastinal silhouette. Bones and soft tissues: Unremarkable. IMPRESSION: No acute radiographic abnormality. Forming Operator: PSCB Transcribe Date/Time: Mar 15 2025 7:25P Dictated by : DANYELLE LAWRENCE MD This examination was interpreted and the report reviewed and electronically signed by: DANYELLE LAWRENCE MD on Mar 15 2025 7:25PM EST [id number] Normal [facility] CBC W/Diff, Automatedon 02-16 PATH REV Reviewed Normal [facility] Comment on above: Result Comment: SEE REPORT IN [facility] EMR AMENDED REPORT 03/03/25 1048 PATH REV previously reported as: March Performed By: #### L 503.6075, L503.6550 #### [facility] [address] [place], [address] CNOVon 02-16-2025 CNOV Office Visit (FAMAAR ) ----- DOMINIC JIMENEZ ([id number]) 1970 F Date Time Provider Department 02/16/25 8:40 AM AURE CARLTON During your visit today, we recorded the following information about you: Temperature Pulse Respiration Blood pressure 97.8 degrees 74/minute 18/minute 108/70 Weight Height 95.7 kg 1.753 m Aure Cralton, EDGER HAND.OFFAL ICER POULTRY 02/16/2025 6:22 PM Signed Dominic Jimenez is a 54 year old female who presents with Follow Up (Dominic is here for a follow up today, went to [facility] about a month ago with bronchitis, is still having considerable cough and colorful phlegm, would like to have something done for ongoing symptoms./Would also like to get back on tizanidine for her muscle spams/pain, states methocarbamol does not help./Also brought the rest of her medications for review.//Zi Jerome MA/February 16, 2025 8:40 AM//) Dominic presents today with her for 12 mo f/u HLD, insomnia, depression, anxiety, neuropathy. Has been having a lot of shoulder pain for the past 3-4 weeks. Was seen at [facility] and ER on multiple occasions over the past month. Told it was bursitis, given muscle relaxers, oxycodone, prednisone. She has not taken prednisone yet. X-ray showed mild DJD. Was told she had bursitis. No referral to ortho. She is also c/o cough ongoing for the past 1-2 months. CXR was clear. Was given Augmentin, prednisone (has not yet taken prednisone.) Cough is productive for brown/green sputum. Feels she has had some SOB and wheezing associated, but that has been improving. Insomnia- on trazodone Continues to follow with Dr. Scott ([facility]). Not taking Xifaxin, cannot afford. Last MELD score 7. States she believes that GI referred her to hematology, but she was supposed to check with her insurance to see who is in network and has not done that yet. Does not have scheduled appointment with hematology to follow-up on iron deficiency anemia. No longer having any vaginal bleeding. Following with Dr. Can VP GLOBAL Depression- controlled on Cymbalta and Celexa Anxiety- has been taking hydroxyzine daily along with Cymbalta and Celexa. Generally controlled. Neuropathy- on gabapentin TID, helping though not resolved. Wants to have tizanidine prescribed again, does not feel methocarbamol is helping. The history is provided by the patient. Hemoglobin A1C Date Value Ref Range Status 10/10/2024 5.7 (H) 4.3 - 5.6 % Final Comment: [place] [employer] guidelines indicate that patients with HgbA1c in the range 5.7-6.4% are at increased risk for development of diabetes, and intervention by lifestyle modification may be beneficial. HgbA1c greater or equal to 6.5% is considered diagnostic of diabetes. 05/09/2023 5.4 4.3 - 6.0 % Final Comment: [place] [employer] guidelines indicate that patients with HgbA1c in the range 5.7-6.4% are at increased risk for development of diabetes, and intervention by lifestyle modification may be beneficial. HgbA1c greater or equal to 6.5% is considered diagnostic of diabetes. TSH Date Value Ref Range Status 08/08/2024 3.323 0.358 - 3.740 mIU/L Final Comment: 3rd generation ultra sensitive TSH. 05/09/2023 2.444 0.358 - 3.740 mIU/L Final Comment: 3rd generation ultra sensitive TSH. 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 predniSONE (DELTASONE) 20 mg tablet Take 1 tablet by mouth once daily for 5 days. 5 tablet 0 esterified estrogens-methylTESTOSTER one (ESTRATEST HS) 0.625-1.25 mg per tablet Take 1 tablet by mouth once daily. dicyclomine (BENTYL) 10 mg capsule take 1 capsule by mouth twice daily as needed for pain methocarbamol (ROBAXIN) 500 mg tablet Take 1 tablet by mouth three times a day. 90 tablet 3 solifenacin 10 mg tablet Take 1 tablet by mouth every afternoon. hydrOXYzine pamoate (VISTARIL) 25 mg capsule TAKE 1 CAPSULE BY MOUTH EVERY 12 HOURS NEEDED FOR ANXIETY 60 capsule 2 jamilah (more content not included)... Normal [facility] CNOVon 02-12-2025 CNOV Office Visit (UCMMAS ) ----- DOMINIC JIMENEZ ([id number]) 1970 F Date Time Provider Department 02/12/25 6:50 PM [address] STEWART [facility] During your visit today, we recorded the following information about you: Temperature Pulse Respiration Blood pressure 97.5 degrees 75/minute 18/minute 139/91 Weight 90.7 kg Yovana Stewart Jr., EDGER HAND.OFFAL ICER POULTRY 02/12/2025 7:56 PM Signed [facility] Subjective Dominic Jimenez is a 54 year old female. Patient presents with: Cough: Chest congestion and cough x 3 weeks Ongoing right arm pain 54-year-old female presented today complaining of cough and chronic right shoulder pain. Patient stated that the shoulder was hurting her. The history is provided by the patient. Review of Systems Respiratory: Positive for cough. Musculoskeletal: Positive for arthralgias. Objective BP 139/91 Pulse 75 Temp 36.4 ?C (97.5 ?F) (Temporal) Resp 18 Wt 90.7 kg (200 lb) SpO2 99% BMI 29.53 kg/m? Physical Exam Vitals and nursing note reviewed. Constitutional: Appearance: Normal appearance. HENT: Head: Normocephalic and atraumatic. Eyes: Conjunctiva/sclera: Conjunctivae normal. Cardiovascular: Rate and Rhythm: Normal rate and regular rhythm. Heart sounds: Normal heart sounds. Pulmonary: Effort: Pulmonary effort is normal. Breath sounds: Normal breath sounds. No stridor. No wheezing or rales. Abdominal: General: Bowel sounds are normal. Palpations: Abdomen is soft. Skin: General: Skin is warm and dry. Neurological: General: No focal deficit present. Mental Status: She is alert and oriented to person, place, and time. Assessment AND Plan Acute cough Based on patient's exam findings I diagnosed her with a acute cough. I prescribed her prednisone. I was considering other medications at that time when patient began to discuss that she was very upset that somebody stated that she was on Percocet. Orders: predniSONE (DELTASONE) 20 mg tablet; Take 1 tablet by mouth once daily for 5 days. Acute pain of right shoulder Orders: [facility]SULT TO [facility] ([facility]); Future During the exam patient became irate that I stated I was informed that she recently received 3 Percocets. Patient denied knowing what a Percocet was and that she was only prescribed tizanidine. On review of the prescriptions I found that she was prescribed a muscle relaxer tizanidine on her last visit with a provider here at the urgent care on 02/07/2025. I looked on her OARRS/PDMP patient was prescribed 12 oxycodone AKA Percocet on February 08, 2025. I will note patient was not wearing her shoulder brace at time of visit. When patient began to express her displeasure that I was informed that she had been prescribed Percocet I turned and stated that we had had this discussion on her visit with me on January 26, 2025 that I will not prescribe controlled meds here. Patient stated she did not remember that. At that time I decided I was not can engage in this conversation and informed the patient she has a decision to make we can finish today's visit or we can be done. Patient looked at me at that time and stated I guess them were done. I gathered up the paperwork I signed the orders for the prednisone. Patient stated that she did have a pain management that she went to but they had closed her moved and that she was going to call another place. I stated I was still going to place a referral. I was having trouble placing the order and decided to print out patient's after visit summary and then work on getting the order in which has been done at this time. While charting patient and her came back in to discuss the issue. Patient's kept repeating that they wanted me to know that she is not a drug addict and is not drug-seeking. Patient's was informed that is not my opinion although she was prescribed Percocets and if her shoulder is hurting that bad she needs to take them. He patient's said that she was diagnosed with bursitis. I replied that prednisone will help the bursitis. He then added that she has an appoint with her primary care physician in a week or 2. And that she has not been taking the Percocets because they are trying to save them. I replied they were prescribed for her pain and she has that much pain she needs to take them as that is what they were prescribed for. I added that if she does not have pain then I would agree not to take him but if she is in here complaining of pain when an x-ray has already been done and we have been diagnosed there is nothing further that I am going to do here for the shoulder due to this being an urgent care I am not going to repeat the x-ray. I then explained to the that I did tell patient that we can either finish the visit or we can stop and that she replied karen (more content not included)... [facility]-REACTIVE PROT 9.67 mg/L High 0.0-3.0 [facility] Comment on above: Performed By: #### L 503.6075, L511.5345 #### [facility] [address] [place], [address] Comprehensive Metabolic Prof ilon 02-08-2025 Albumin [Mass/Vol] 3.8 g/dL Normal 3.5-5.0 [facility] Comment on above: Performed By: #### L 503.6075, [id number] #### [facility] [address] [place], [address] Albumin/Globulin [Mass ratio] 1.3 {ratio} Normal 0.9-2.4 [facility] Comment on above: Performed By: #### L [id number], [id number] #### [facility] [address] [place], [address] ALK PHOS 47 U/L Normal 35-104 [facility] Comment on above: Performed By: #### L [id number], [id number] #### [facility] [address] [place], [address] ALT [Catalytic activity/Vol] 16 U/L Normal <=34 [facility] Comment on above: Performed By: #### L [id number], [id number] #### [facility] [address] [place], [address] AST [Catalytic activity/Vol] 31 U/L Normal <=31 [facility] Comment on above: Result Comment: Hemo lysis present, Results??could be affected. ?? Performed By: #### L [id number], [id number] #### [facility] [address] [place], [address] Bilirubin [Mass/Vol] 0.40 mg/dL Normal 0.00-1.30 [facility] Comment on above: Performed By: #### L [id number], [id number] #### [facility] [address] [place], [address] BUN/CRE 10.9 RATIO Normal 10-20 [facility] Comment on above: Performed By: #### L 503.6075, [id number] #### [facility] [address] [place], [address] Calcium [Mass/Vol] 9.0 mg/dL Normal 7.6-11.0 [facility] Comment on above: Performed By: #### L 503.6075, [id number] #### [facility] [address] [place], [address] Chloride [Moles/Vol] 106 mmol/L Normal 98-108 [facility] Comment on above: Performed By: #### L 503.6075, [id number] #### [facility] [address] [place], [address] CO2 [Moles/Vol] 19.3 mmol/L Low 21.0-32.0 [facility] Comment on above: Performed By: #### L 503.6075, [id number] #### [facility] [address] [place], [address] Creatinine [Mass/Vol] 0.91 mg/dL Normal 0.70-1.20 [facility] Comment on above: Performed By: #### L 503.6075, [id number] #### [facility] [address] [place], [address] ECRCL 87.92 ml/min Normal 50-250 [facility] Comment on above: Performed By: #### L 503.6075, [id number] #### [facility] [address] [place], [address] GAP 13 Normal 5-15 [facility] Comment on above: Performed By: #### L 503.6075, [id number] #### [facility] [address] [place], [address] GFR/1.73 sq M.predicted among non-blacks MDRD (S/P/Bld) [Vol rate/Area] 75 mL/min/{1.73_m2} Normal >60 [facility] Comment on above: Result Comment: mL/m in/1.73m2 CKD-EPI Creatinine Equation (2020) Performed By: #### L 503.6075, [id number] #### [facility] [address] [place], [address] Globulin (S) [Mass/Vol] 2.9 g/dL Normal 2.2-4.2 [facility] Comment on above: Performed By: #### L 503.6075, [id number] #### [facility] [address] [place], [address] Glucose [Mass/Vol] 187 mg/dL High 70-99 [facility] Comment on above: Performed By: #### L 503.6075, [id number] #### [facility] [address] [place], [address] Potassium [Moles/Vol] 4.3 mmol/L Normal 3.3-5.1 [facility] Comment on above: Result Comment: Hemo lysis present, Results??could be affected. ?? Performed By: #### L 503.6075, [id number] #### [facility] [address] [place], [address] Sodium [Moles/Vol] 137 mmol/L Normal 133-145 [facility] Comment on above: Performed By: #### L 503.6075, [id number] #### [facility] [address] [place], [address] T PROT 6.7 g/dL Normal 5.9-8.4 [facility] Comment on above: Performed By: #### L 503.6075, [id number] #### [facility] [address] [place], [address] Urea nitrogen [Mass/Vol] 10 mg/dL Normal 4-19 [facility] Comment on above: Performed By: #### L 503.6075, [id number] #### [facility] [address] [place], [address] Absolute neutrophil countOrd ered By: Gustavo Snyder on 02-07-2025 Neutrophils (Bld) [#/Vol] 2.4 10*3/uL 2.0-7.7 [facility] Anion gap in Serum or Plasma Ordered By: Gustavo Snyder on 02-07-2025 Anion gap [Moles/Vol] 13 mmol/L 5-15 [facility] BUN/creatinine ratioOrdered By: Gustavo Snyder on 02-07-2025 Urea nitrogen/Creatinine [Mass ratio] 10.9 mg/mg 10-20 [facility] Basophil percentageOrdered B y: Gustavo Snyder on 02-07-2025 Basophils/100 WBC (Bld) 0.3 % 0-1 [facility] Bilirubin, totalOrdered By: Gustavo Snyder on 02-07-2025 Bilirubin [Mass/Vol] 0.40 mg/dL 0.00-1.30 [facility] CNOVon 02-07-2025 CNOV Office Visit (UCMMAS ) ----- NEDDOMINIC Rico ([id number]) 1970 F Date Time Provider Department 02/07/25 11:00 AM NICOLETTE VILLAGOMEZ [facility] During your visit today, we recorded the following information about you: Temperature Pulse Respiration Blood pressure 97.6 degrees 65/minute 18/minute 108/61 Weight 90.7 kg Nicolette Villagomez APRN.OFFAL ICER POULTRY 02/07/2025 12:27 PM Signed [facility] Ropercy Jacky Ned is a 54 year old female. Patient presents with: right arm pain: Right arm pain x 1 month No injury however patient has hx of neuropathy States she has a history of neuropathy of her bilateral lower extremities which she is already on 800 of gabapentin 3 times a day. She has had issues with upper extremity neuropathy in the past as well however describes this as more acute however it has been ongoing for the last month. She describes numbness in the top of her fingers on her right hand and sometimes the top of her hand. Pain seems to radiate down from her shoulder down to her elbow skip her forearm and then into the hand. She describes not having a comfortable position to put her arm. She cannot take Tylenol or ibuprofen secondary to her cirrhosis per patient. She was prescribed a course of steroids when she was seen here for an upper respiratory infection which did not seem to help the pain bursitis was also addressed at that time. She has also been given muscle relaxers which she states Zanaflex is the only thing that helps her at night, but taking the Robaxin during the day. She is out of the Zanaflex and requesting a few of these until she sees her primary care. Denies any injury, fevers or chills, neck pain. Review of Systems Constitutional: Positive for activity change. Negative for appetite change, chills, fatigue and fever. HENT: Negative. Eyes: Negative. Respiratory: Negative. Cardiovascular: Negative. Gastrointestinal: Negative. Genitourinary: Negative. Musculoskeletal: Positive for arthralgias and back pain. Negative for joint swelling, neck pain and neck stiffness. Skin: Negative for rash. Neurological: Positive for weakness and numbness. Hematological: Negative. Psychiatric/Behavioral: Negative. All other systems reviewed and are negative. Objective BP 108/61 Pulse 65 Temp 36.4 ?C (97.6 ?F) Resp 18 Wt 90.7 kg (200 lb) SpO2 96% BMI 29.53 kg/m? Physical Exam Vitals and nursing note reviewed. Constitutional: General: She is not in acute distress. Appearance: Normal appearance. She is not ill-appearing. Eyes: Extraocular Movements: Extraocular movements intact. Conjunctiva/sclera: Conjunctivae normal. Pupils: Pupils are equal, round, and reactive to light. Cardiovascular: Pulses: Normal pulses. Heart sounds: Normal heart sounds. Pulmonary: Effort: Pulmonary effort is normal. Breath sounds: Normal breath sounds. Abdominal: General: Abdomen is flat. Musculoskeletal: General: Tenderness present. No swelling, deformity or signs of injury. Normal range of motion. Cervical back: Normal range of motion. No rigidity or tenderness. Right lower leg: No edema. Left lower leg: No edema. Comments: Tenderness on palpation of AC joint Lymphadenopathy: Cervical: No cervical adenopathy. Skin: General: Skin is warm and dry. Findings: No bruising, erythema or rash. Neurological: General: No focal deficit present. Mental Status: She is alert and oriented to person, place, and time. Cranial Nerves: No cranial nerve deficit. Sensory: No sensory deficit. Motor: No weakness. Coordination: Coordination normal. Deep Tendon Reflexes: Reflexes normal. Comments: Strength sensation and upper extremity DTRs all within normal limits ASSESSMENT/PLAN: 1. Acute pain of right shoulder - ICD9: 719.41, ICD10: M25.511 (primary diagnosis) No acute finding on x-ray per my read will call if any discrepancy is found on radiologist interpretation. - XR SHOULDER GENERAL 3V OR MORE AP/TRUE AP/OTHER RIGHT - SLING, ARM 2. Neuropathy - ICD9: 355.9, ICD10: G62.9 - SLING, ARM 3. Bursitis of right shoulder - ICD9: 726.10, ICD10: M75.51 Discussed I concur with previous assessment in light of no further workup being done at this point. She is tender at her AC joint and shoulder. In light of no and inciting injury is most likely diagnosis. She is unable to take NSAIDs did have a risk-benefit discussion regarding that with her and recommended she have a conversation with her GI doctor regarding what would be an acceptable choice for an NSAID anti-inflammatory in this situation I did not give her any additional steroids as that did not seem to help either she seemed to be more interested in the Zanaflex to help for sleep. I gave her a few to get her to her primary where her medications are all going to need to be reviewed with her (more content not included)... Normal [facility] CRP [Mass/Vol]Ordered By: Kurtis Snyder on 02-07-2025 C-Reactive Protein Extended Range 9.67 mg/L High 0.0-3.0 [facility] Carbon dioxide, total [Moles /volume] in Central venous bloodOrdered By: Gustavo Snyder on 02-07-2025 CO2 [Moles/Vol] 19.3 mmol/L Low 21.0-32.0 [facility] Chloride assayOrdered By: Kurtis Snyder on 02-07-2025 Chloride [Moles/Vol] 106 mmol/L 98-108 [facility] Emergency Department Summary on 02-07-2025 Emergency Department Summary [facility] Medical Records Department [address] [place] [address] Emergency Department Summary 02/07/25 MR#: [id number] Acct: [id number] Name: DOMINIC JIMENEZ Rep #: [id number] : 1970 54 From: Gustavo Snyder DO PCP: TAMARA LANDERS Status:DEP ER Location: ED HPI History of Present Illness HPI Narrative: Patient presents with right shoulder and arm pain that has been getting worse over the past few days. Patient states she went to urgent care today where they did an x-ray which was negative. Patient states was diagnosed with bursitis. Patient states her pain became worse tonight. Patient describes it as stabbing. Patient states it is worse whenever she touches the area. Patient states she has a history of neuropathy but states that her typical paresthesias are worse. Patient denies any trauma or injury. Chief Complaint: Upper Extremity Injury Onset/Context/Timing Onset: Days Context: Gradual Onset Timing: Continuous Quality of Pain: Stabbing Location: Right shoulder and upper arm Worsened by: Palpation and movement Relieved by: Nothing Associated Symptoms Associated Symptoms: Positive for Parasthesia; Negative for Weakness or Loss of Funtion PFSH [facility] Medical History Rash History of ulceration Chronic pain Non-smoker Neuropathy Wears glasses Post-menopausal Anxiety Alcohol use Anemia Migraine headache Syncope Gastric reflux Non-smoker History of pain when walking Leg cramps History of edema Cardiology follow-up encounter History of Clostridium difficile infection Splenomegaly Abnormal liver function test Cirrhosis of liver Wernickes encephalopathy Alcoholic hepatitis Home Medications ???Medication ???Instructions ???Recorded ???Last Taken ???Type cholecalciferol (vitamin D3) 125 125 mcg PO DAILY supple 04/04/22 U nknown History mcg (5,000 unit) tablet (Vitamin D3) folic acid 1 mg tablet 1 mg PO DAILY 04/04/22 Unknown His tory multivitamin 1 cap PO DAILY 04/04/22 Unknown Hi story thiamine HCl (vitamin B1) 100 mg 100 mg PO DAILY 04/04/22 Unknown H istory tablet (Vitamin B-1) trazodone 50 mg tablet 200 mg PO QHS SLEEP 04/04/22 Unkno wn History nadolol 20 mg tablet 20 mg PO DAILY see phy #30 tabs Unknown Rx pantoprazole 40 mg tablet,delayed 40 mg PO DAILY #90 tabs 03/11/23 Unknown Rx release ginkgo biloba 60 mg capsule 60 mg PO DAILY 05/08/23 Unknown Hi story glucosamine 500 1 cap PO DAILY 05/08/23 Unknown Hi story rk-ebhqeusng-drldzdoy comp 400 mg-D3 667 unit-C-Mn cap (Glucosamine-Chondroitin- D3(C-manganese)) magnesium 250 mg tablet 250 mg PO DAILY 05/08/23 Unknown H istory milk thistle 175 mg capsule 175 mg PO DAILY 05/08/23 Unknown H istory progesterone micronized 100 mg 500 mg PO QHS 05/08/23 Unknown His tory capsule famotidine 40 mg tablet 40 mg PO QHS #90 tabs 06/11/23 Unk nown Rx duloxetine 60 mg capsule,delayed 60 mg PO BID 07/07/23 Unknown Hist ory release lactulose 10 gram/15 mL (15 mL) 15 ml PO TID PRN ammonia 07/07/23 Unknown History oral solution citalopram 20 mg tablet 20 mg PO DAILY 07/10/24 Unknown Hi story estradiol 0.01% (0.1 mg/gram) 1 appful vaginal QHS suppl 4 Unknown History vaginal cream hydroxyzine pamoate 25 mg capsule 25 mg PO BID anxiety 07/10/24 Unk nown History methocarbamol 500 mg tablet 500 mg PO TID PRN pain 07/10/24 Un known History vibegron 75 mg tablet (Gemtesa) 75 mg PO DAILY 07/10/24 Unknown Hi story ascorbic acid (vitamin C) 500 mg 500 mg PO DAILY 10/23/24 Unknown H istory tablet calcium 315 mg (as 1 tab PO DAILY 10/23/24 Unknown Hi story citrate)-vitamin D3 5 mcg (200 unit) tablet (Calcium Citrate + D) cholestyramine (with sugar) 4 gram 1 ea PO BID PRN PRN HIGH 4 Unknown History powder for susp in a packet CHOLESTEROL cranberry 500 mg capsule 500 mg PO DAILY 10/23/24 Unknown H istory d-mannose 500 mg capsule (AZO 1,000 mg PO BID 10/23/24 Unknown H istory D-Mannose) diphenhydramine HCl 25 mg capsule 50 mg PO QHS insom 10/23/24 Unkno wn History (Benadryl) gabapentin 800 mg tablet 800 mg PO TID 10/23/24 Unknown His tory mirabegron 50 mg tablet,extended 50 mg PO DAILY 10/23/24 Unknown Hi story release 24 hr rifaximin 550 mg tablet 550 mg PO BID 10/23/24 Unknown His tory testosterone 12.5 mg/1.25 gram per 1 pump transdermal DAILY 4 Unknown History pump actuation (1%) transdermal gel tizanidine 4 mg capsule 4 mg PO QHS 10/23/24 Unknown Histo ry ferrous sulfate 325 mg (65 mg 325 mg PO BID #1 TAB 10/25/24 Unkn own Rx iron) tablet oxycodone 5 mg tablet 5 mg PO Q6H PRN pain 5 days #20 Unknown Rx tabs oxycodone 5 mg tabl (more content not included)... Normal [facility] Eosinophil percentageOrdered By: Gustavo Snyder on 02-07-2025 Eosinophils/100 WBC (Bld) 0.8 % 0-5 [facility] Erythrocyte Sed Rateon 02-07 SED RATE 13 mm/hr Normal 0-30 [facility] Comment on above: Performed By: #### L [id number], [id number] #### [facility] Laboratory [address] [place] [address]. [place], [address] Erythrocyte distribution wid th ratioOrdered By: Gustavo Snyder on 02-07-2025 Erythrocyte distribution width (RBC) [Ratio] 15.8 % High 11.6-14.6 [facility] Erythrocyte distribution wid th standard deviationOrdered By: Gustavo Snyder on 02-07-2025 Erythrocyte distribution width (RBC) [Entitic vol] 52.2 fL High 35.1-43.9 [facility] Erythrocyte sedimentation ra teOrdered By: Gustavo Snyder on 02-07-2025 ESR (Bld) [Velocity] 13 mm/h 0-30 [facility] Estimation of creatinine tahir aranceOrdered By: Gustavo Snyder on 02-07-2025 Estimated Creatinine Clearance Calc 87.92 ml/min 50-250 [facility] GFR/1.73 sq M.predicted tori g non-blacks MDRD (S/P/Bld) [Vol rate/Area]Ordered By: Gustavo Snyder on 02-07-2025 Estimated GFR (MDRD) Non-Af Amer 75 >60 [facility] Comment on above: mL/min/1.73m2 CKD-EP I Creatinine Equation (2020) Hematocrit Auto (Bld) [Volum e fraction]Ordered By: Gustavo Snydre on 02-07-2025 Hematocrit (Bld) [Volume fraction] 32.8 % Low 37-47 [facility] Hemoglobin measurementOrdere d By: Gustavo Snyder on 02-07-2025 Hemoglobin (Bld) [Mass/Vol] 10.5 g/dL Low 12.0-15.0 [facility] Immature granulocytes/100 WB C Auto (Bld)Ordered By: Gustavo Snyder on 02-07-2025 Immature granulocytes/100 WBC (Bld) 0.300 % 0.0-0.9 [facility] Comment on above: IG% - Immature Granu locytes (promyelocytes, myelocytes and metamyelocytes) > 1% indicates that a LEFT SHIFT is Present. Laboratory - Chemistry and C hemistry - challengeOrdered By: Gustavo Snyder on 02-07-2025 AST [Catalytic activity/Vol] 31 U/L <32 [facility] Comment on above: Hemolysis present, R esults could be affected. Lymphocytes Auto (Unsp spec) [#/Vol]Ordered By: Gustavo Snyder on 02-07-2025 Lymphocytes (Bld) [#/Vol] 1.08 10*3/uL 0.83-4.51 [facility] Lymphocytes/100 WBC Auto (Un sp spec)Ordered By: Gustavo Snyder on 02-07-2025 Lymphocytes/100 WBC (Bld) 28.2 % 19-41 [facility] MCV (mean corpuscular volume ) determinationOrdered By: Gustavo Snyder on 02-07-2025 MCV (RBC) [Entitic vol] 90.6 fL 81-99 [facility] Manual differential comment Reed (Bld) [Interp]Ordered By: Gsutavo Snyder on 02-07-2025 Differential Comment SCANNED [facility] Mean corpuscular hemoglobin (MCH) determinationOrdered By: Gustavo Snyder on 02-07-2025 MCH (RBC) [Entitic mass] 29.0 pg 27.0-32.0 [facility] Mean corpuscular hemoglobin concentration (MCHC) determinationOrdered By: Gustavo Snyder on 02-07-2025 MCHC (RBC) [Mass/Vol] 32.0 g/dL 32-36 [facility] Mean platelet volume determi nationOrdered By: Gustavo Snyder on 02-07-2025 Mean Platelet Volume TNP [facility] Comment on above: Test not performed Monocyte percentageOrdered B y: Gustavo Snyder on 02-07-2025 Monocytes/100 WBC (Bld) 9.1 % 0-10 [facility] Neutrophil percentageOrdered By: Gustavo Snyder on 02-07-2025 Neutrophils/100 WBC (Bld) 61.3 % 47-70 [facility] Nucleated red blood cell per centageOrdered By: Gustavo Snyder on 02-07-2025 Nucleated RBC/100 WBC (Bld) [Ratio] 0 % 0-5 [facility] Pathologist review Reed (Unsp spec) [Interp]Ordered By: Gustavo Snyder on 02-07-2025 Differential Pathologist's Review May [facility] Platelet countOrdered By: Kurtis Snyder on 02-07-2025 Platelets (Bld) [#/Vol] 48 10*3/uL Low 150-450 [facility] Comment on above: CRITICAL VALUE RICHARDSON D TO ETEAL02/07/25 2329 Bryn Calabrese.RESULTS READ BACK BY SAME. Platelets LM Ql (Bld)Ordered By: Gustavo Snyder on 02-07-2025 Platelet Estimate MOD DEC ADEQ [facility] Potassium (Unsp spec) [Mass/ Vol]Ordered By: Gustavo Snyder on 02-07-2025 Potassium [Moles/Vol] 4.3 mmol/L 3.3-5.1 [facility] Comment on above: Hemolysis present, R esults could be affected. RBC Auto (Bld) [#/Vol]Ordere d By: Gustavo Snyder on 02-07-2025 RBC (Bld) [#/Vol] 3.62 10*6/uL Low 4.2-5.4 [facility] Serum creatinine measurement (mass/volume)Ordered By: Gustavo Snyder on 02-07-2025 Creatinine [Mass/Vol] 0.91 mg/dL 0.70-1.20 [facility] Serum globulin measurementOr dered By: Gustavo Snyder on 02-07-2025 Globulin (S) [Mass/Vol] 2.9 g/dL 2.2-4.2 [facility] Serum glucose measurement (m ass/volume)Ordered By: Gustavo Snyder on 02-07-2025 Glucose [Mass/Vol] 187 mg/dL High 70-99 [facility] Serum or plasma alanine braun otransferase (ALT) measurementOrdered By: Gustavo Snyder on 02-07-2025 ALT [Catalytic activity/Vol] 16 U/L <35 [facility] Serum or plasma albumin peewee urement (mass/volume)Ordered By: Gustavo Snyder on 02-07-2025 Albumin [Mass/Vol] 3.8 g/dL 3.5-5.0 [facility] Serum or plasma albumin/glob ulin mass ratioOrdered By: Gustavo Snyder on 02-07-2025 Albumin/Globulin [Mass ratio] 1.3 {ratio} 0.9-2.4 [facility] Serum or plasma alkaline senia sphatase measurementOrdered By: Gustavo Snyder on 02-07-2025 ALP [Catalytic activity/Vol] 47 U/L 35-104 [facility] Serum or plasma calcium peewee urement (mass/volume)Ordered By: Gustavo Snyder on 02-07-2025 Calcium [Mass/Vol] 9.0 mg/dL 7.6-11.0 [facility] Serum or plasma urea nitroge n measurement (mass/volume)Ordered By: Gustavo Snyder on 02-07-2025 Urea nitrogen [Mass/Vol] 10 mg/dL 4-19 [facility] Sodium levelOrdered By: Gustavo Snyder on 02-07-2025 Sodium [Moles/Vol] 137 mmol/L 133-145 [facility] Total proteinOrdered By: Zabrina Snyder on 02-07-2025 Protein [Mass/Vol] 6.7 g/dL 5.9-8.4 [facility] White blood cell (WBC) count Ordered By: Gustavo Snyder on 02-07-2025 WBC (Bld) [#/Vol] 3.8 10*3/uL Low 4.4-11.0 [facility] XR SHLDR >/=3V AP/CE AP/OTH R RTon 02-07-2025 XR SHLDR >/=3V AP/CE AP/OTHR RT * * *Final Report* * * DATE OF EXAM: Feb 07 2025 12:24PM RMX 5253 - XR SHLDR >/=3V AP/CE AP/OTHR RT / PROCEDURE REASON: Acute pain of right shoulder * * * * Physician Interpretation * * * * XR SHLDR >/=3V AP/CE AP/OTHR RT Ordering Physician: NICOLETTE VILLAGOMEZ 02/07/2025 12:24 PM RIGHT SHOULDER Clinical Statement: Shoulder pain FINDINGS: 4 images of the right shoulder were obtained. There were no prior studies available for comparison. The osseous structures are intact. There are no acute fractures. The joint spaces are maintained. There are mild degenerative changes. IMPRESSION: Mild degenerative change. No acute osseous abnormalities. Forming Operator: [facility] Transcribe Date/Time: Feb 07 2025 12:29P Dictated by : LOIS PUENTE MD This examination was interpreted and the report reviewed and electronically signed by: LOIS PUENTE MD on Feb 07 2025 12:30PM EST [id number] Normal [facility] XR Shoulder - right 3 Viewso n 02-07-2025 IMPRESSION: Mild degenerative change. No acute osseous abnormalities. Forming Operator: [facility] Transcribe Date/Time: Feb 07 2025 12:29P Dictated by : LOIS PUENTE MD This examination was interpreted and the report reviewed and electronically signed by: LOIS PUENTE MD on Feb 07 2025 12:30PM [facility] * * *Final Report* * * DATE OF EXAM: Feb 07 2025 12:24PM RMX 5253 - XR SHLDR >/=3V AP/CE AP/OTHR RT / PROCEDURE REASON: Acute pain of right shoulder * * * * Physician Interpretation * * * * XR SHLDR >/=3V AP/CE AP/OTHR RT Ordering Physician: NICOLETTE VILLAGOMEZ 02/07/2025 12:24 PM RIGHT SHOULDER Clinical Statement: Shoulder pain FINDINGS: 4 images of the right shoulder were obtained. There were no prior studies available for comparison. The osseous structures are intact. There are no acute fractures. The joint spaces are maintained. There are mild degenerative changes. [facility] Provider, Amarilys Morales cachorro Johana - 02/07/2025 * * *Final Report* * * DATE OF EXAM: Feb 07 2025 12:24PM RMX 5253 - XR SHLDR >/=3V AP/CE AP/OTHR RT / PROCEDURE REASON: Acute pain of right shoulder * * * * Physician Interpretation * * * * XR SHLDR >/=3V AP/CE AP/OTHR RT Ordering Physician: NICOLETTE VILLAGOMEZ 02/07/2025 12:24 PM RIGHT SHOULDER Clinical Statement: Shoulder pain FINDINGS: 4 images of the right shoulder were obtained. There were no prior studies available for comparison. The osseous structures are intact. There are no acute fractures. The joint spaces are maintained. There are mild degenerative changes. IMPRESSION IMPRESSION: Mild degenerative change. No acute osseous abnormalities. Forming Operator: [facility] Transcribe Date/Time: Feb 07 2025 12:29P Dictated by : LOIS PUENTE MD This examination was interpreted and the report reviewed and electronically signed by: LOIS PUENTE MD on Feb 07 2025 12:30PM EST [facility] Radiology Study observation (narrative) [facility] XR Shoulder - right 3 ViewsO rdered By: [facility] Provider on 02-07-2025 [facility] [facility] ----- DOMINIC JIMENEZ ([id number]) 1970 F Date Time Provider Department 01/27/25 YOVANA STEWART [facility] During your visit today, we recorded the following information about you: Charlotte Cordero LPN 01/27/2025 10:40 AM Signed Patient called in leaving a message that during her last visit yesterday that the Yovana Stewart talked to her about getting a muscle relaxer but didn't because she is currently on Robaxin 500mg. Patient states she only have 2-3 tablets left of that and doesn't have any refills. Patient is asking if she can get a prescription of a muscle relaxer or a refill on that medication that was originally prescribed by her primary care Aure Carlton. Will call patient to verify pharmacy. ZHEN Estrada Tracey, LPN 01/27/2025 10:40 AM Signed Dominic Jimenez called today. : 1970 Allergies: Apap [Acetaminophen] and Ibuprofen (home) [phone] (cell) Reason for call: Patient states she discussed having a muscle prescribed to her however it wasn't prescribed since she currently has a prescription that was given to her by her primary for Robaxin however she only has one or two days left of that and is asking if something could be sent to her pharmacy. Patient last appointment: 01/26/2025 The patients preferred pharmacy has been captured for this encounter? Yes The pharmacy in the profile is the correct pharmacy. ZHEN Estrada Lisa Dawn, DO 01/27/2025 3:14 PM Signed Zanaflex 4 mg 3 times a day for 2 days is sent into the pharmacy for the patient. After that she will need to go to her primary care physician for any more medication. Charlotte Cordero LPN 01/27/2025 5:21 PM Signed Spoke with patient and notified her of new prescription. Explained to patient that she will have to see her primary to get refills of this medication. Patient states understanding and voices no other concerns at this time. Charlotte Cordero LPN Allergies As of Date: 01/27/2025 Noted Allergy Reaction APAP (ACETAMINOPHEN) 03/04/2024 15 - Contraindication-Medical [place]* Comments: Patient states her GI doctor told her not to take this medication due to liver problems IBUPROFEN 03/04/2024 15 - Contraindication-Medical [place]* Comments: Patient states her GI doctor told her not to take this medication due to liver problems Date Reviewed: 01/26/2025 Reviewed by: Yovana Stewart Jr., EDGER HAND.OFFAL ICER POULTRY - Fully Assessed Reason for Visit: Medication Problem [65] Cmt: Patient is requesting a prescription for a muscle relaxer since she only has one or two pills left of current muscle relaxer. Primary Visit Diagnosis:Spasm [R25.2] Order(s):tiZANidine (ZANAFLEX) 4 mg tabletTake 1 tablet by mouth three times a day for 2 days.Disp: 6 tabletRfl: 0 Prescriptions as of 01/27/2025 - tiZANidine (ZANAFLEX) 4 mg tablet Take 1 tablet by mouth three times a day for 2 days. - solifenacin 10 mg tablet Take 1 tablet by mouth every afternoon. - predniSONE (DELTASONE) 20 mg tablet Take 2 tablets by mouth once daily for 5 days. - amoxicillin-clavulanate potassium (AUGMENTIN) 875-125 mg per tablet Take 1 tablet by mouth every 12 hours for 7 days. - Benzonatate 200 mg capsule Take 1 capsule by mouth three times a day as needed for cough for up to 7 days. - hydrOXYzine pamoate (VISTARIL) 25 mg capsule TAKE 1 CAPSULE BY MOUTH EVERY 12 HOURS NEEDED FOR ANXIETY - ferrous sulfate (IRON, FERROUS SULFATE,) 325 mg (65 mg iron) tablet Take 325 mg by mouth two times a day. - DULoxetine (CYMBALTA) 60 mg capsule Take 1 capsule by mouth two times a day. - gabapentin (NEURONTIN) 800 mg tablet Take 800 mg by mouth three times a day. - mirabegron (MYRBETRIQ) 50 mg Tb24 Take 50 mg by mouth daily with breakfast. - calcium citrate-vitamin D3 (CITRACAL+D) 315 mg-5 mcg (200 unit) tab Take by mouth as directed. - cholestyramine (QUESTRAN) 4 gram packet DISSOLVE IN WATER AND TAKE 1 POWDER PACKET BY MOUTH TWICE DAILY NEEDED - estradiol (ESTRACE) 0.01 % (0.1 mg/gram) vaginal cream INSERT 1 GRAM VAGINALLY THREE TIMES A WEEK BEFORE BED - testosterone (VOGELXO) 12.5 mg/ 1.25 gram (1 %) transdermal gel Apply as directed. - citalopram (CELEXA) 20 mg tablet Take 1 tablet by mouth once daily. - traZODone (DESYREL) 100 mg tablet Take 2 tablets by mouth daily at bedtime. - progesterone micronized (PROMETRIUM) 100 mg capsule Take by mouth. - gabapentin (NEURONTIN) 100 mg capsule Take 1 capsule by mouth at bedtime as needed for up to 90 days. - rifAXIMin (XIFAXAN) 550 mg tablet Take 550 mg by mouth two times a day. - GEMTESA 75 mg tablet Take 1 tablet by mouth every afternoon. - lactulose 10 gram/15 mL solution Take 10 g by mouth three times daily as needed. - ascorbic acid, vitamin C, (VITAMIN C) 500 mg tablet Take 500 mg by mouth once daily. - cranberry fruit extr (more content not included)... Normal [facility] CNOVon 01-26-2025 CNOV Office Visit ([facility] ) ----- DOMINIC JIMENEZ ([id number]) 1970 F Date Time Provider Department 01/26/25 1:10 PM [facility] STEWART [facility] During your visit today, we recorded the following information about you: Temperature Pulse Respiration Blood pressure 97.8 degrees 78/minute 18/minute 145/78 Weight 90.7 kg Yovana Stewart Jr., EDGER HAND.OFFAL ICER POULTRY 01/26/2025 3:08 PM Signed [facility] [place] Subjective Dominic Jimenez is a 54 year old female. Patient presents with: right upper arm pain: Right upper arm pain that radiates into back x 1 week No known injury Also states she has a cough x 1 month 54-year-old female presents today with complaint of right upper arm pain that radiates into her back by 1 week. She denies any recent injury. She is also complaining of a cough by 1 month. She states the cough is worse at night. When asked about shortness of breath she states she has a history of that. The history is provided by the patient. Review of Systems Constitutional: Negative for fever. HENT: Negative for sinus pain and sore throat. Respiratory: Positive for cough, shortness of breath and wheezing. Negative for stridor. Gastrointestinal: Negative for abdominal pain. Musculoskeletal: Positive for myalgias. Skin: Negative for rash. Neurological: Negative for headaches. Objective BP 145/78 Pulse 78 Temp 36.6 ?C (97.8 ?F) Resp 18 Wt 90.7 kg (200 lb) SpO2 99% BMI 29.53 kg/m? Physical Exam Vitals and nursing note reviewed. Constitutional: Appearance: Normal appearance. HENT: Head: Normocephalic and atraumatic. Right Ear: Tympanic membrane normal. Left Ear: Tympanic membrane normal. Nose: Rhinorrhea present. No congestion. Mouth/Throat: Mouth: Mucous membranes are moist. Pharynx: Oropharynx is clear. Eyes: Conjunctiva/sclera: Conjunctivae normal. Cardiovascular: Rate and Rhythm: Normal rate and regular rhythm. Heart sounds: Normal heart sounds. Pulmonary: Effort: Pulmonary effort is normal. Breath sounds: Normal breath sounds. Abdominal: General: Bowel sounds are normal. Palpations: Abdomen is soft. Musculoskeletal: General: Tenderness present. Arms: Comments: Right radial pulse present and strong. There is tenderness to palpation around the bicep and tricep muscles of the right arm. Resisted wrist dorsiflexion and flexion did not cause any pain at the medial lateral epicondyle region of the elbow. Drop arm test was negative. Right shoulder impingement test was positive with pain in the shoulder. Range of motion of right shoulder decreased in all ranges secondary to pain. There is tenderness to palpation of the right supraspinatus muscle. Resisted isometric bicep and tricep contraction are both rated +5/+ sign 5. Skin: General: Skin is warm and dry. Neurological: Mental Status: She is alert and oriented to person, place, and time. Assessment AND Plan GARZA (dyspnea on exertion) Orders: XR CHEST 2V FRONTAL/LAT; Future amoxicillin-clavulanate potassium (AUGMENTIN) 875-125 mg per tablet; Take 1 tablet by mouth every 12 hours for 7 days. Acute cough Based on exam I feel she has some consolidation in the likely left upper lobe. I did prescribe her Augmentin. I did initially consider Z-Santiago and doxycycline however due to interactions with her other meds those were changed to the Augmentin. Orders: XR CHEST 2V FRONTAL/LAT; Future amoxicillin-clavulanate potassium (AUGMENTIN) 875-125 mg per tablet; Take 1 tablet by mouth every 12 hours for 7 days. Benzonatate 200 mg capsule; Take 1 capsule by mouth three times a day as needed for cough for up to 7 days. Acute pain of right shoulder Based on examination I feel patient likely has a bursitis of her right shoulder. I would also can consider an impingement syndrome. I do not feel that there is a neurology component to patient's complaint of pain Orders: predniSONE (DELTASONE) 20 mg tablet; Take 2 tablets by mouth once daily for 5 days. Patient had unmet expectations of pain control. MDM Procedures Yovana Stewart Jr., EDGER HAND.OFFAL ICER POULTRY 01/26/2025 2:32 PM Addendum I do treat a muscle strain? A muscle strain usually gets better on its own, but may take days to weeks to heal completely. To help with the healing process it is recommended that you: 1. Rest your muscle, avoid movements or activities that cause the pain. 2. Ice or heat the area, you can put a cold gel pack, bag of ice, or bag of frozen vegetables on the painful muscle every two hours for 15 to 20 minutes at a time. If you use an ice bag and there is no cover on it you will need to put a thin piece of material between the ice and your skin. It is recommended that you use ice for the first 6 hours up to two days after an injury. After that consider using heat with the same timeframe. Remember that heat will always fee (more content not included)... Normal [facility] XR CHEST 2V FRONTAL/LATon XR CHEST 2V FRONTAL/LAT * * *Final Report* * * DATE OF EXAM: Jan 26 2025 4:45PM RMX 5291 - XR CHEST 2V FRONTAL/LAT / PROCEDURE REASON: multiple diagnoses * * * * Physician Interpretation * * * * EXAMINATION: CHEST RADIOGRAPH (2 VIEW FRONTAL and LATERAL) CLINICAL HISTORY: Acute cough GARZA (dyspnea on exertion) MQ: [id number] EXAM DATE/TIME: 01/26/2025 4:45 PM COMPARISON: 10/14/2021 RESULT: Lines, tubes, and devices: None. Lungs and pleura: The costophrenic angles are clear. No acute infiltrates or congestion is seen. Cardiomediastinal silhouette: The cardiac silhouette is normal in size. The aorta is slightly tortuous. Bones and soft tissues: There are no acute osseous abnormalities. IMPRESSION: No acute abnormalities. Forming Operator: STACY Transcribe Date/Time: Jan 27 2025 10:26A Dictated by : LOIS PUENTE MD This examination was interpreted and the report reviewed and electronically signed by: LOIS PUENTE MD on Jan 27 2025 10:27AM EST [id number] Normal [facility] Basic metabolic 2000 panelon 01-01-2025 Anion gap [Moles/Vol] 9 mmol/L Normal 5-16 [facility] Comment on above: Order Comment: Speci men Type: BLOOD SPECIMEN Ordering Facility: [facility] Address: [address], [place] [address] Performed By: #### 2 243-4 #### [facility] CLIA [id number] [address] [place] [address] [place] Calcium [Mass/Vol] 9.7 mg/dL Normal 8.5-10.5 [facility] Comment on above: Order Comment: Speci men Type: BLOOD SPECIMEN Ordering Facility: [facility] Address: [address], [place] [address] Performed By: #### 2 243-4 #### [facility] CLIA [id number] [address] [place] [address] [place] Chloride [Moles/Vol] 107 mmol/L Normal 98-107 [facility] Comment on above: Order Comment: Speci men Type: BLOOD SPECIMEN Ordering Facility: [facility] Address: [address], [place] [address] Performed By: #### 2 243-4 #### [facility] CLIA [id number] [address] [place] [id number] [place] CO2 [Moles/Vol] 24 mmol/L Normal 21-32 [facility] Comment on above: Order Comment: Speci men Type: BLOOD SPECIMEN Ordering Facility: [facility] Address: [address] [place] [address] Performed By: #### 2 243-4 #### [facility] CLIA [id number] [address] [place] [address] [place] Creatinine [Mass/Vol] 0.76 mg/dL Normal 0.51-0.95 [facility] Comment on above: Order Comment: Speci men Type: BLOOD SPECIMEN Ordering Facility: [facility] Address: [address] [place] [address] Result Comment: Aretha ents receiving either N-Acetylcysteine (NAC) or Metamizole prior to venipuncture, may have falsely depressed results. Performed By: #### 2 243-4 #### [facility] CLIA [id number] [address] [place] [address] Creatinine and Glomerular filtration rate.predicted panel (S/P/Bld) 93 mL/min/1.73m??? Normal >=60 [facility] Comment on above: Order Comment: Speci men Type: BLOOD SPECIMEN Ordering Facility: [facility] Address: [address] [place] [address] Result Comment: Perri mated Glomerular Filtration Rate (eGFR) is calculated using the 2020 CKD-EPI creatinine equation. This equation utilizes serum creatinine, sex, and age as parameters. The creatinine assay has traceable calibration to isotope dilution-mass spectrometry. Refer to KDIGO guidelines for clinical interpretation. In patients with unstable renal function, e.g. those with acute kidney injury, the eGFR may not accurately reflect actual GFR. Performed By: #### 2 243-4 #### [facility] CLIA [id number] [address] [place], [place] [address] [place] Glucose [Mass/Vol] 96 mg/dL Normal 70-100 [facility] Comment on above: Order Comment: Speci men Type: BLOOD SPECIMEN Ordering Facility: [facility] Address: [address] [place] [address] Result Comment: The [place] Diabetes Association (ADA) provides guidance for cutoff values for fasting glucose and random glucose. The ADA defines fasting as no caloric intake for at least 8 hours. Fasting plasma glucose results between 100 to 125 mg/dL indicate increased risk for diabetes (prediabetes). Fasting plasma glucose results greater than or equal to 126 mg/dL meet the criteria for diagnosis of diabetes. In the absence of unequivocal hyperglycemia, results should be confirmed by repeat testing. In a patient with classic symptoms of hyperglycemia or hyperglycemic crisis, random plasma glucose results greater than or equal to 200 mg/dL meet the criteria for diagnosis of diabetes. Reference: Standards of Medical Care in Diabetes 2016, [place] [employer] Association. Diabetes Care. 2016.39(Suppl 1). Results may be falsely elevated after the administration of Sulfapyridine. Results may be falsely depressed after the administration of Sulfasalazine. Performed By: #### 2 243-4 #### [facility] CLIA [id number] [address] [place] [address] [place] Potassium [Moles/Vol] 4.1 mmol/L Normal 3.5-5.1 [facility] Comment on above: Order Comment: Speci [facility] Type: BLOOD SPECIMEN Ordering Facility: [facility] Address: [address] [place] [address] Performed By: #### 2 243-4 #### [facility] CLIA [id number] [address] [place] [address] [place] Sodium [Moles/Vol] 140 mmol/L Normal 136-145 [facility] Comment on above: Order Comment: Speci men Type: BLOOD SPECIMEN Ordering Facility: [facility] Address: [address] [place] [address] Performed By: #### 2 243-4 #### [facility] CLIA [id number] [address] [place] [address] [place] Urea nitrogen [Mass/Vol] 11 mg/dL Normal 7-26 [facility] Comment on above: Order Comment: Speci men Type: BLOOD SPECIMEN Ordering Facility: [facility] Address: [address] [place] [address] Performed By: #### 2 243-4 #### [facility] CLIA [id number] [address] [place] [address] [place] CBC W Auto Differential pane l (Bld)on 01-01-2025 Basophils (Bld) [#/Vol] 10*3/uL Normal <0.11 [facility] Comment on above: Order Comment: Speci men Type: BLOOD SPECIMEN Ordering Facility: [facility] Address: [address] [facility] [place] [address] Performed By: #### 2 839-9, 298-8 #### [facility] CLIA [id number] [address] [place] [address] [place] Basophils/100 WBC (Bld) 1.2 % Normal [facility] Comment on above: Order Comment: Speci men Type: BLOOD SPECIMEN Ordering Facility: [facility] Address: [address] [facility] [place] [address] Performed By: #### 2 839-9, 298-8 #### [facility] CLIA [id number] [address] [place] [address] [place] Dacrocytes LM Ql (Bld) Few Normal [facility] Comment on above: Order Comment: Speci men Type: BLOOD SPECIMEN Ordering Facility: [facility] Address: [address] [facility] [place] [address] Performed By: #### 2 839-9, 2985-8 #### [facility] CLIA [id number] [address] [place] [address] [place] Differential cell count method Nom (Bld) Auto Normal [facility] Comment on above: Order Comment: Speci men Type: BLOOD SPECIMEN Ordering Facility: [facility] Address: [address] [facility] [place] [address] Performed By: #### 2 839-9, 298-8 #### [facility] CLIA [id number] [address] [place], [place] [address] [place] Eosinophils (Bld) [#/Vol] 0.03 10*3/uL Normal <0.46 [facility] Comment on above: Order Comment: Speci men Type: BLOOD SPECIMEN [facility] Address: [address] [facility] [place] [address] Performed By: #### 2 839-9, 298-8 #### [facility] CLIA [id number] [address] [place], [place] [address] [place] Eosinophils/100 WBC (Bld) 1.9 % Normal [facility] Comment on above: Order Comment: Speci men Type: BLOOD SPECIMEN [facility] Address: [address] [facility] [address], [place] [address] Performed By: #### 2 839-9, 2988 #### [facility] CLIA [id number] [address] [place], [place] [address] [place] Erythrocyte distribution width (RBC) [Ratio] 16.0 % High 11.5-15.0 [facility] Comment on above: Order Comment: Speci men Type: BLOOD SPECIMEN Ordering Facility: [facility] Address: [address] [facility] [place] [address] Performed By: #### 2 839-9, 2988 #### [facility] CLIA [id number] [address] [place] [address] [place] Hematocrit (Bld) [Volume fraction] 33.6 % Low 36.0-46.0 [facility] Comment on above: Order Comment: Speci men Type: BLOOD SPECIMEN Ordering Facility: [facility] Address: [address] [facility] , [place] [address] Performed By: #### 2 839-9, 298-8 #### [facility] CLIA [id number] [address] [place], [place] [address] [place] Hemoglobin (Bld) [Mass/Vol] 10.8 g/dL Low 11.5-15.5 [facility] Comment on above: Order Comment: Speci men Type: BLOOD SPECIMEN [facility] Address: [address] [facility] [address], [place] [address] Performed By: #### 2 839-9, 298-8 #### [facility] CLIA [id number] [address] [place] [address] [place] Immature granulocytes (Bld) [#/Vol] 10*3/uL Normal <0.10 [facility] Comment on above: Order Comment: Speci men Type: BLOOD SPECIMEN Ordering Facility: [facility] Address: [address] [facility] [address], [place] [address] Performed By: #### 2 839-9, 2988 #### [facility] CLIA [id number] [address] [place], [place] [address] [place] Immature granulocytes/100 WBC (Bld) 1.2 % Normal [facility] Comment on above: Order Comment: Speci men Type: BLOOD SPECIMEN Ordering Facility: [facility] Address: [address] [facility] [address], [place] [address] Performed By: #### 2 839-9, 2988 #### [facility] CLIA [id number] [address] [place], [place] [address] [place] Lymphocytes (Bld) [#/Vol] 0.72 10*3/uL Low 1.00-4.00 [facility] Comment on above: Order Comment: Speci men Type: BLOOD SPECIMEN Ordering Facility: [facility] Address: [address] [facility] [address], [place] [address] Performed By: #### 2 839-9, 8 #### [facility] CLIA [id number] [address] [place] [address] [place] Lymphocytes/100 WBC (Bld) 44.4 % Normal [facility] Comment on above: Order Comment: Speci men Type: BLOOD SPECIMEN Ordering Facility: [facility] Address: [address] [facility] [address], [place] [address] Performed By: #### 2 839-9, 2986-8 #### [facility] CLIA [id number] [address] [place] [address] [facility] MCH (RBC) [Entitic mass] 28.3 pg Normal 26.0-34.0 [facility] Comment on above: Order Comment: Speci men Type: BLOOD SPECIMEN Ordering Facility: [facility] Address: [facility] [address] [facility] [place] [address] Performed By: #### 2 839-9, 2986-06 #### [facility] CLIA [id number] [address] [place] MCHC (RBC) [Mass/Vol] 32.1 g/dL Normal 30.5-36.0 [facility] Comment on above: Order Comment: Speci men Type: BLOOD SPECIMEN Ordering Facility: [facility] Address: [address] [place] [address], [facility] [place] [address] Performed By: #### 2 839-9, 2986-06 #### [facility] CLIA [id number] [address] [place] [address] [place] MCV (RBC) [Entitic vol] 88.2 fL Normal 80.0-100.0 [facility] Comment on above: Order Comment: Speci men Type: BLOOD SPECIMEN Ordering Facility: [facility] Address: [address] [place] [address], [place] [address] Performed By: #### 2 839-9, 2986-06 #### [facility] CLIA [id number] [address] [place] [address] [place] Monocytes (Bld) [#/Vol] 0.19 10*3/uL Normal <0.87 [facility] Comment on above: Order Comment: Speci men Type: BLOOD SPECIMEN Ordering Facility: [facility] Address: [address] [facility] [place] [address] Performed By: #### 2 839-9, 8 #### [facility] CLIA [id number] [address] [place] [address] [place] Monocytes/100 WBC (Bld) 11.7 % Normal [facility] Comment on above: Order Comment: Speci men Type: BLOOD SPECIMEN Ordering Facility: [facility] Address: [facility] [place] [address] Performed By: #### 2 839-9, 2986-8 #### [facility] CLIA [id number] [address] [place] [address] [place] Neutrophils (Bld) [#/Vol] 0.64 10*3/uL Low 1.45-7.50 [facility] Comment on above: Order Comment: Speci men Type: BLOOD SPECIMEN Ordering Facility: [facility] Address: [facility] [place] [address] Performed By: #### 2 839-9, 298-8 #### [facility] CLIA [id number] [address] [place] [address] [place] Neutrophils/100 WBC (Bld) 39.6 % Normal [facility] Comment on above: Order Comment: Speci men Type: BLOOD SPECIMEN Ordering Facility: [facility] Address: [facility] [place] [address] Performed By: #### 2 839-9, 298-8 #### [facility] CLIA [id number] [address] [place] [address] [place] Nucleated RBC (Bld) [#/Vol] 10*3/uL Normal <0.01 [facility] Comment on above: Order Comment: Speci men Type: BLOOD SPECIMEN Ordering Facility: [facility] Address: [address] [place] [address] Performed By: #### 2 839-9, 298-8 #### [facility] CLIA [id number] [address] [place], [place] [address] [place] Nucleated RBC/100 WBC (Bld) [Ratio] 0.0 /100 WBC Normal [facility] Comment on above: Order Comment: Speci men Type: BLOOD SPECIMEN [facility] Address: [address] [facility] [place] [address] Performed By: #### 2 839-9, 8 #### [facility] CLIA [id number] [address] [place], [place] [address] [place] Ovalocytes LM Ql (Bld) Few Normal [facility] Comment on above: Order Comment: Speci men Type: BLOOD SPECIMEN [facility] Address: [address] [facility] [place] [address] Performed By: #### 2 839-9, 2986-06 #### [facility] CLIA [id number] [address] [place] [address] [place] Platelet mean volume (Bld) [Entitic vol] Normal [facility] Comment on above: Order Comment: Speci men Type: BLOOD SPECIMEN Ordering Facility: [facility] Address: [address] [place] [address] Result Comment: Unab le to Report. Performed By: #### 2 839-9, 2986-06 #### [facility] CLIA [id number] [address] [place] [address] [place] Platelets (Bld) [#/Vol] 32 10*3/uL Low 150-400 [facility] Comment on above: Order Comment: Speci men Type: BLOOD SPECIMEN [facility] Address: [address] [facility] [place] [address] Result Comment: No c lot detected. Performed By: #### 2 839-9, 2986-06 #### [facility] CLIA [id number] [address] [place] [address] [facility] OF [place] Platelets Estimate (Bld) [#/Vol] Decreased Normal [facility] Comment on above: Order Comment: Speci men Type: BLOOD SPECIMEN [facility] Address: [address] [place] [address] Performed By: #### 2 839-9, 2986-8 #### [facility] CLIA [id number] [address] [place], [place] [address] [place] RBC (Bld) [#/Vol] 3.81 10*6/uL Low 3.90-5.20 [facility] Comment on above: Order Comment: Speci men Type: BLOOD SPECIMEN Ordering Facility: [facility] Address: [address] [place] [address] Performed By: #### 2 839-9, 2986-8 #### [facility] CLIA [id number] [address] [place] [address] [place]LL MORPH Reviewed: see result s of individual morphologies Normal [facility] Comment on above: Order Comment: Speci men Type: BLOOD SPECIMEN Ordering Facility: [facility] Address: [address] [place] [address] Performed By: #### 2 839-9, 2986-8 #### [facility] CLIA [id number] [address] [place] [address] [place] WBC (Bld) [#/Vol] 1.62 10*3/uL Low 3.70-11.00 [facility] Comment on above: Order Comment: Speci men Type: BLOOD SPECIMEN [facility] Address: [address] [facility] [place] [address] Performed By: #### 2 839-9, 2986-8 #### [facility] CLIA [id number] [address] [place] [address] Hepatic function 2000 panelo n 01-01-2025 Albumin [Mass/Vol] 3.8 g/dL Normal 3.2-5.0 [facility] Comment on above: Order Comment: Speci men Type: BLOOD SPECIMEN [facility] Address: [address] [place] [address] Performed By: #### 2 243-4 #### [facility] CLIA [id number] [address] [place] [address] [place] ALP [Catalytic activity/Vol] 63 U/L Normal 45-117 [facility] Comment on above: Order Comment: Speci men Type: BLOOD SPECIMEN Ordering Facility: [facility] Address: [address] [place] [address] Performed By: #### 2 243-4 #### [facility] CLIA [id number] [address] [place] [address] [place] ALT [Catalytic activity/Vol] 21 U/L Normal 13-61 [facility] Comment on above: Order Comment: Speci men Type: BLOOD SPECIMEN Ordering Facility: [facility] Address: [address] [place] [address] Result Comment: Resu lts may be falsely depressed after the administration of Sulfasalazine and/or Sulfapyridine. Performed By: #### 2 243-4 #### [facility] CLIA [id number] [address] [place] [address] [place] AST [Catalytic activity/Vol] 37 U/L High 8-34 [facility] Comment on above: Order Comment: Speci men Type: BLOOD SPECIMEN Ordering Facility: [facility] Address: [address] [place] [address] Result Comment: Resu lts may be falsely depressed after the administration of Sulfasalazine and/or Sulfapyridine. Performed By: #### 2 243-4 #### [facility] CLIA [id number] [address] [place], [place] [address] [place] Bilirubin [Mass/Vol] 0.8 mg/dL Normal 0.2-1.0 [facility] Comment on above: Order Comment: Speci men Type: BLOOD SPECIMEN Ordering Facility: [facility] Address: [address] [place] [address] Performed By: #### 2 243-4 #### [facility] CLIA [id number] [address] [place], [place] [address] [place] Bilirubin.conjugated [Mass/Vol] 0.3 mg/dL Normal 0.0-0.4 [facility] Comment on above: Order Comment: Speci men Type: BLOOD SPECIMEN Ordering Facility: [facility] Address: [address] [place] [address] Performed By: #### 2 243-4 #### [facility] CLIA [id number] [address] [place], [place] [address] [place] Protein [Mass/Vol] 7.5 g/dL Normal 6.0-8.5 [facility] Comment on above: Order Comment: Danieli brianna Type: BLOOD SPECIMEN Ordering Facility: [facility] Address: [address] [place] [address] Performed By: #### 2 243-4 #### [facility] CLIA [id number] [address] [place], [place] [address] [facility] OF [place] PT panel Coag (PPP)on 2024 INR Coag (PPP) [Relative time] 1.2 {INR} Normal 0.9-1.3 [facility] Comment on above: Order Comment: Speci [facility] Type: BLOOD SPECIMEN Ordering Facility: [facility] Address: [address] [place], [place] [address] [address] Result Comment: Ramonita min K Antagonist (VKA) Therapeutic Range: INR 2 to 3 (Target INR of 2.5) Note: For patients treated with VKA drugs, such as warfarin, the [place] [employer] 2012 Guideline recommends a therapeutic INR range of 2 to 3 (target INR of 2.5). This recommendation includes high-risk patients with antiphospholipid syndrome with previous arterial or venous thromboembolism, current-generation mechanical or bioprosthetic aortic heart valve replacement. Note: Patients with mechanical aortic valve replacement and additional risk factors for thromboembolic events (atrial fibrillation, previous thromboembolism, LV dysfunction, hypercoagulable conditions) or an older generation mechanical AVR (i.e., ball in-Cage) or any mechanical MVR should have a INR therapeutic range of 2.5 to 3.5 (target INR of 3). Jerome GH, et al. Chest 2012, 141:7S-47S Evans RA, et al. [facility] 2017, 70: 252-289 Performed By: #### 2 243-4 #### [facility] CLIA [id number] [address] [place], [place] [address] [place] PT Coag (PPP) [Time] 12.7 s Normal 9.7-13.0 [facility] Comment on above: Order Comment: Speci men Type: BLOOD SPECIMEN Ordering Facility: [facility] Address: [address] [place] [address] Performed By: #### 2 243-4 #### [facility] CLIA [id number] [address] [place] [address] [facility] aPTT PPPon 01-01-2025 aPTT Coag (PPP) [Time] 30.6 s Normal 23.0-32.4 [facility] Comment on above: Order Comment: Specekta reed Type: BLOOD SPECIMEN Ordering Facility: [facility] Address: [address] [place] [address] Performed By: #### 2 243-4 #### [facility] CLIA [id number] [address] [place], [place] [address] [facility] Hepatobilliary Imagingon Hepatobilliary Imaging [facility] Imaging Services [address] [place], [place] [id number] Hepatobilliary Imaging MR#: [id number] Acct: [id number] Name: DOMINIC JIMENEZ Rep #: [id number] : 1970 F 54 From: Buzz perez MD PCP: TAMARA LANDERS Status: [facility] CLI Study: Hepatobilliary Imaging Date of Exam: 12/24/24 Exam# [id number] Ordering Dr: AURE CARLTON PROCEDURE: HEPATOBILLIARY IMAGING REASON FOR EXAM: Right upper quadrant abdominal pain. TECHNIQUE: Intravenous Choletec with planar imaging of the abdomen. RADIOPHARMACEUTICAL: 5.4 mCi of mebrofenin REASON FOR EXAM: Right upper quadrant pain. COMPARISON: None. FINDINGS: There is good uptake of the radiopharmaceutical by the liver. The gallbladder is not visualized up to 2 hours. Radiopharmaceutical is seen within the proximal small bowel. NM/Hepatobilliary Imaging IMPRESSION: Nonvisualization of the gallbladder up to 2 hours following the injection of the radiopharmaceutical. Reading Location: [facility] CC: TAMARA CARLTON Forming Operator: Signed [facility] 12-22-2024 CNPN Telephone (FAMAAR) ----- DOMINIC JIMENEZ ([id number]) 1970 F Date Time Provider Department 12/22/24 [facility] During your visit today, we recorded the following information about you: Zi Jerome MA 12/22/2024 1:33 PM Signed While Dominic is still looking for a new primary, she was wondering if you could get her new orders for PT and OT, and then I'll fax them to the [facility]. Zi Jerome MA December 22, 2024 1:33 PM Aure Carlton, [facility] 12/22/2024 2:51 PM Signed Didn't know she was changing primary offices. I already ordered physical therapy for her, should be in her chart. On 11/23, she told me she had an order for OT. If she needs a new one, I need to know what I'm ordering it for specifically. Lorenza Obrien MA 01/05/2025 8:50 AM Signed Left message for patient regarding PT and OT orders Lorenza Obrien MA January 05, 2025 8:50 AM Allergies As of Date: 12/22/2024 Noted Allergy Reaction APAP (ACETAMINOPHEN) 03/04/2024 15 - Contraindication-Medical [place]* Comments: Patient states her GI doctor told her not to take this medication due to liver problems IBUPROFEN 03/04/2024 15 - Contraindication-Medical [place]* Comments: Patient states her GI doctor told her not to take this medication due to liver problems Date Reviewed: 10/28/2024 Reviewed by: Aure Carlton APRN.[employer]AL [employer] - Fully Assessed Primary Visit Diagnosis:Hepatic encephalopathy (HCC) [K76.82] Order(s):PROTHROMBIN TIME [SQPT] Order #: [id number] FUTURE Prescriptions as of 01/05/2025 - hydrOXYzine pamoate (VISTARIL) 25 mg capsule TAKE 1 CAPSULE BY MOUTH EVERY 12 HOURS NEEDED FOR ANXIETY - ferrous sulfate (IRON, FERROUS SULFATE,) 325 mg (65 mg iron) tablet Take 325 mg by mouth two times a day. - DULoxetine (CYMBALTA) 60 mg capsule Take 1 capsule by mouth two times a day. - gabapentin (NEURONTIN) 800 mg tablet Take 800 mg by mouth three times a day. - mirabegron (MYRBETRIQ) 50 mg Tb24 Take 50 mg by mouth daily with breakfast. - methocarbamol (ROBAXIN) 500 mg tablet Take 1 tablet by mouth three times a day. - calcium citrate-vitamin D3 (CITRACAL+D) 315 mg-5 mcg (200 unit) tab Take by mouth as directed. - cholestyramine (QUESTRAN) 4 gram packet DISSOLVE IN WATER AND TAKE 1 POWDER PACKET BY MOUTH TWICE DAILY NEEDED - estradiol (ESTRACE) 0.01 % (0.1 mg/gram) vaginal cream INSERT 1 GRAM VAGINALLY THREE TIMES A WEEK BEFORE BED - testosterone (VOGELXO) 12.5 mg/ 1.25 gram (1 %) transdermal gel Apply as directed. - citalopram (CELEXA) 20 mg tablet Take 1 tablet by mouth once daily. - traZODone (DESYREL) 100 mg tablet Take 2 tablets by mouth daily at bedtime. - tiZANidine HCl (ZANAFLEX) 4 mg capsule Take by mouth. - progesterone micronized (PROMETRIUM) 100 mg capsule Take by mouth. - gabapentin (NEURONTIN) 100 mg capsule Take 1 capsule by mouth at bedtime as needed for up to 90 days. - rifAXIMin (XIFAXAN) 550 mg tablet Take 550 mg by mouth two times a day. - GEMTESA 75 mg tablet Take 1 tablet by mouth every afternoon. - lactulose 10 gram/15 mL solution Take 10 g by mouth three times daily as needed. - ascorbic acid, vitamin C, (VITAMIN C) 500 mg tablet Take 500 mg by mouth once daily. - cranberry fruit extract (CRANBERRY EXTRACT) 500 mg tab Take 1 tablet by mouth three times daily. - d-mannose 500 mg cap Take 1,000 mg by mouth twice daily. - Magnesium 250 mg tab Take 250 mg by mouth once daily. - glucosamine/chondr paniagua A sod (GLUCOSAMINE-CHONDROITIN) 750-600 mg tab Take 1 tablet by mouth once daily. - Lactobac no.41/Bifidobact no.7 (PROBIOTIC-10 ORAL) Take 1 tablet by mouth once daily. - vitamin B complex (B COMPLEX 1 ORAL) Take 1 tablet by mouth once daily. - estradiol 0.01% estriol 0.01% topical cream (CPD) Apply 0.1ml to upper inner arm daily. - PROGESTERONE MISC - Milk Thistle 175 mg tab Take 1 tablet by mouth once daily. - cyanocobalamin (VITAMIN B-12) 1,000 mcg tab Take 1 tablet by mouth once daily. - ginkgo biloba leaf extract 60 mg tab Take 1 tablet by mouth once daily. - famotidine (PEPCID) 40 mg tablet Take 40 mg by mouth daily at bedtime. - nadolol (CORGARD) 20 mg tablet Take 20 mg by mouth once daily. For 30 days - byiiomillkwb-rgujuvdm-wmv braun k-coenzyme Q-10 (DEKAS PLUS) 200 mcg-1,000 mcg-10 mg chewable tablet Take 1 tablet by mouth once daily. - folic acid 1 mg tablet Take 1 mg by mouth once daily. - pantoprazole DR (PROTONIX) 40 mg tablet Take 40 mg by mouth once daily. - thiamine (VITAMIN B1) 100 mg tablet Take 100 mg by mouth once daily. - cholecalciferol (VITAMIN D3) 5,000 unit tab Take 5,000 Units by mouth once daily. Problem List As Of Date 12/22/2024 Noted Resolved Hallucinations [R44.3] 10/06/2021 11/19/2023 Delirium due to multiple etiologies, acute, hyp*10/07/2021 08/14/2023 Depression [F32.A] 10/07/2021 Acute metabolic ence (more content not included)... Normal [facility] Liveron 12-17-2024 Liver [facility] Imaging Services [address], [place] [address] Liver MR#: [id number] Acct: [id number] Name: DOMINIC JIMENEZ Rep #: [id number] : 1970 F 54 From: Ayaz Burt DO PCP: TAMARA LANDERS Status: REG CLI Study: Liver Date of Exam: 12/17/24 Exam# [id number] Ordering Dr: Radhika Scott MD PROCEDURE: LIVER REASON FOR EXAM: Right upper quadrant pain COMPARISON: Correlation with CT examination dated 10/23/2024 FINDINGS: Liver: Heterogeneous and coarsened echogenicity. There is nodularity involving the surface of the liver. Right hepatic lobe measures 20.2 cm. No focal masses are identified. Gallbladder: Cholelithiasis and sludge. No gallbladder wall thickening or pericholecystic fluid. Negative ultrasonic Puente's sign. Common bile duct: Normal measuring 2.4 mm. Pancreas: Visualized portions are sonographically unremarkable. Right kidney measures 10.6 x 4.9 x 4.9 cm. Renal cortex measures 1.4 cm. No hydronephrosis of the right kidney. US/Liver IMPRESSION: 1. Cirrhotic appearing liver with hepatomegaly 2. Cholelithiasis and sludge. 3. CBD is within normal limits measuring 2.4 mm. 4. No hydronephrosis of the right kidney. Reading Location: [facility] CC: EXPERIENTIAL THERAPIST-Parul CARLTON; Dr. Radhika Scott MD Forming Operator: Signed Normal [facility] Absolute neutrophil countOrd ered By: Tree Mitchell on 12-07-2024 Neutrophils (Bld) [#/Vol] 2.0 10*3/uL 2.0-7.7 [facility] Basic Metabolic Profile (BMP )on 12-07-2024 BUN/CRE 16.3 RATIO Normal - [facility] Comment on above: Performed By: #### L 100.0100 #### [facility] Laboratory [address] [place], [address] CA,Total 9.3 mg/dL Normal 8.5-10.1 [facility] Comment on above: Performed By: #### L 100.0100 #### [facility] Laboratory [address] [place], [address] Chloride [Moles/Vol] 108 mmol/L High 98-107 [facility] Comment on above: Performed By: #### L 100.0100 #### [facility] [address] [place], [address] CO2 [Moles/Vol] 26.0 mmol/L Normal 21.0-32.0 [facility] Comment on above: Performed By: #### L 100.0100 #### [facility] [address] [place], [address] Creatinine [Mass/Vol] 0.98 mg/dL Normal 0.55-1.02 [facility] Comment on above: Result Comment: The validity of the calculated GFR GFRAA in patients over 70 years has not been determined. Clinical correlation is essential. Performed By: #### L 100.0100 #### [facility] [address] [place], [address] ECRCL 82.03 ml/min Normal [facility] Comment on above: Performed By: #### L 100.0100 #### [facility] [address] [place], [address] EST GFR - AA 76 mL/min Normal >60 [facility] Comment on above: Result Comment: Afri can Marshallese GFR Calc Performed By: #### L 100.0100 #### [facility] [address] [place], [address] GAP 4 Low 5-15 [facility] Comment on above: Performed By: #### L 100.0100 #### [facility] [address] [place], [address] GFR/1.73 sq M.predicted among non-blacks MDRD (S/P/Bld) [Vol rate/Area] 63 mL/min/{1.73_m2} Normal >60 [facility] Comment on above: Result Comment: Non- GFR Calc Performed By: #### L 100.0100 #### [facility] [address] [place], [address] Glucose [Mass/Vol] 126 mg/dL High 74-106 [facility] Comment on above: Result Comment: Fast ing Glucose result greater than or equal to 126 mg/dL suggests DIABETES MELLITUS per A.D.A. criteria. Performed By: #### L 100.0100 #### [facility] [address] [place], [address] Potassium [Moles/Vol] 3.9 mmol/L Normal 3.5-5.1 [facility] Comment on above: Performed By: #### L 100.0100 #### [facility] [address] [place], [address] Sodium [Moles/Vol] 139 mmol/L Normal 136-145 [facility] Comment on above: Performed By: #### L 100.0100 #### [facility] [address] [place], [address] Urea nitrogen [Mass/Vol] 16 mg/dL Normal 7-18 [facility] Comment on above: Performed By: #### L 100.0100 #### [facility] [address] [place], [address] Basophil percentageOrdered B y: Tree Mitchell on 12-07-2024 Basophils/100 WBC (Bld) 0.3 % 0-1 [facility] Bilirubin directOrdered By: Tree Mitchell on 12-07-2024 Bilirubin.direct [Mass/Vol] 0.21 mg/dL 0.00-0.30 [facility] Bilirubin, totalOrdered By: Tree Mitchell on 12-07-2024 Bilirubin [Mass/Vol] 1.00 mg/dL 0.20-1.00 [facility] Comment on above: For patients on eltr ombopag therapy, use of Dimension [place] TBIL is not recommended. Blood urea nitrogen (BUN)/cr eatinine ratioOrdered By: Tree Mitchell on 12-07-2024 Urea nitrogen/Creatinine [Mass ratio] 16.3 mg/mg 09-06 [facility] CBC W/Diff, Automatedon 11-19 Anisocytosis Ql (Bld) 1+ Normal [facility] Comment on above: Performed By: #### L 100.0100 #### [facility] Laboratory [address] [place], [address] PLT EST MOD DEC Normal ADEQ [facility] Comment on above: Performed By: #### L 100.0100 #### [facility] Laboratory [address] [place], [address] Carbon dioxide measurementOr dered By: Tree Mitchell on 12-07-2024 CO2 [Moles/Vol] 26.0 mmol/L 21.0-32.0 [facility] Chloride measurementOrdered By: Tree Mitchell on 12-07-2024 Chloride [Moles/Vol] 108 mmol/L High 98-107 [facility] Emergency Department Summary on 12-07-2024 Emergency Department Summary [facility] Medical Records Department [address] [place] [address] Emergency Department Summary 12/07/24 MR#: [id number] Acct: [id number] Name: DOMINIC JIMENEZ Rep #: [id number] : 1970 54 From: Tree Mitchell DO PCP: AURE NOLING, EXPERIENTIAL THERAPIST-C Status:REG ER Location: ED HPI History of Present Illness Chief Complaint: Abd Pain Informant: patient and spouse/S.O. Narrative Narrative: Patient is a 54-year-old female with past medical history of iron deficiency anemia as well as cirrhosis secondary to history of alcohol abuse. Patient reports that she has had CT scans over the last few months secondary to recurrent abdominal pain and was found to have gallstones and/or sludge. She reports that she made an appointment to have a HIDA scan performed to further evaluate her gallbladder but that her insurance changed at the beginning of the new year and she can no longer have the study done that was set up prior to insurance change. This evening she states she drank a smoothie made with yogurt and then had a peanut butter sandwich. A few hours later began with pain in the right upper quadrant with nausea. She states that the pain is very similar to the previous bouts of abdominal pain she is experienced but she felt this 1 was more intense in severity and secondary to this comes in for evaluation [facility] Medical History Rash History of ulceration Chronic pain Non-smoker Neuropathy Wears glasses Post-menopausal Anxiety Alcohol use Anemia Migraine headache Syncope Gastric reflux Non-smoker History of pain when walking Leg cramps History of edema Cardiology follow-up encounter History of Clostridium difficile infection Splenomegaly Abnormal liver function test Cirrhosis of liver Wernickes encephalopathy Alcoholic hepatitis Home Medications ???Medication ???Instructions ???Recorded ???Last Taken ???Type cholecalciferol (vitamin D3) 125 125 mcg PO DAILY supple 04/04/22 Unknown History mcg (5,000 unit) tablet (Vitamin D3) folic acid 1 mg tablet 1 mg PO DAILY 04/04/22 Unknown History multivitamin 1 cap PO DAILY 04/04/22 Unknown History thiamine HCl (vitamin B1) 100 mg 100 mg PO DAILY 04/04/22 Unknown History tablet (Vitamin B-1) trazodone 50 mg tablet 200 mg PO QHS SLEEP 04/04/22 Unknown History nadolol 20 mg tablet 20 mg PO DAILY see phy #30 tabs 03/11/23 Unknown Rx pantoprazole 40 mg tablet,delayed 40 mg PO DAILY #90 tabs 03/11/23 Unknown Rx release ginkgo biloba 60 mg capsule 60 mg PO DAILY 05/08/23 Unknown History glucosamine 500 1 cap PO DAILY 05/08/23 Unknown History bw-qlhvtqqpi-aiuhubnc comp 400 mg-D3 667 unit-C-Mn cap (Glucosamine-Chondroitin- D3(C-manganese)) magnesium 250 mg tablet 250 mg PO DAILY 05/08/23 Unknown History milk thistle 175 mg capsule 175 mg PO DAILY 05/08/23 Unknown History progesterone micronized 100 mg 500 mg PO QHS 05/08/23 Unknown History capsule famotidine 40 mg tablet 40 mg PO QHS #90 tabs 06/11/23 Unknown Rx duloxetine 60 mg capsule,delayed 60 mg PO BID 07/07/23 Unknown History release lactulose 10 gram/15 mL (15 mL) 15 ml PO TID PRN ammonia 07/07/23 Unknown History oral solution citalopram 20 mg tablet 20 mg PO DAILY 07/10/24 Unknown History estradiol 0.01% (0.1 mg/gram) 1 appful vaginal QHS suppl 07/10/24 Unknown History vaginal cream hydroxyzine pamoate 25 mg capsule 25 mg PO BID anxiety 07/10/24 Unknown History methocarbamol 500 mg tablet 500 mg PO TID PRN pain 07/10/24 Unknown History vibegron 75 mg tablet (Gemtesa) 75 mg PO DAILY 07/10/24 Unknown History ascorbic acid (vitamin C) 500 mg 500 mg PO DAILY 10/23/24 Unknown History tablet calcium 315 mg (as 1 tab PO DAILY 10/23/24 Unknown History citrate)-vitamin D3 5 mcg (200 unit) tablet (Calcium Citrate + D) cholestyramine (with sugar) 4 gram 1 ea PO BID PRN PRN HIGH 10/23/24 Unknown History powder for susp in a packet CHOLESTEROL cranberry 500 mg capsule 500 mg PO DAILY 10/23/24 Unknown History d-mannose 500 mg capsule (AZO 1,000 mg PO BID 10/23/24 Unknown History D-Mannose) diphenhydramine HCl 25 mg capsule 50 mg PO QHS insom 10/23/24 Unknown History (Benadryl) gabapentin 800 mg tablet 800 mg PO TID 10/23/24 Unknown History mirabegron 50 mg tablet,extended 50 mg PO DAILY 10/23/24 Unknown History release 24 hr rifaximin 550 mg tablet 550 mg PO BID 10/23/24 Unknown History testosterone 12.5 mg/1.25 gram per 1 pump transdermal DAILY 10/23/24 Unknown History pump actuation (1%) transdermal gel tizanidine 4 mg capsule 4 mg PO QHS 10/23/24 Unknown History ferrous sulfate 325 mg (65 mg 325 mg PO BID #1 TAB 10/25/24 Unknown Rx iron) tablet oxycodone 5 mg tablet 5 mg PO Q6H PRN pain 5 days #20 12/07/24 Unknown Rx (more content not included)... Normal [facility] Eosinophil percentageOrdered By: Tree Mitchell on 12-07-2024 Eosinophils/100 WBC (Bld) 0.9 % 0-5 [facility] Erythrocyte distribution wid th ratioOrdered By: Tree Mitchell on 12-07-2024 Erythrocyte distribution width (RBC) [Ratio] 20.3 % High 11.6-14.6 [facility] Erythrocyte distribution wid th standard deviationOrdered By: Tree Mitchell on 12-07-2024 Erythrocyte distribution width (RBC) [Entitic vol] 66.4 fL High 35.1-43.9 [facility] Estimated glomerular filtrat ion rate (GFR) AmericanOrdered By: Tree Mitchell on 12-07-2024 Estimated GFR (MDRD) Amer 76 mL/min >60 [facility] Comment on above: GFR Calc Estimation of creatinine tahir aranceOrdered By: Tree Mitchell on 12-07-2024 Estimated Creatinine Clearance Calc 82.03 ml/min [facility] Glomerular filtration rate ( GFR) estimationOrdered By: Tree Mitchell on 12-07-2024 Estimated GFR (MDRD) Non-Af Amer 63 mL/min >60 [facility] Comment on above: Non- GFR Calc Glucose measurementOrdered B y: Tree Mitchell on 12-07-2024 Glucose [Mass/Vol] 126 mg/dL High 74-106 [facility] Comment on above: Fasting Glucose resu lt greater than or equal to 126 mg/dL suggests DIABETES MELLITUS per A.D.A. criteria. Hematocrit Auto (Bld) [Volum e fraction]Ordered By: Tree Mitchell on 12-07-2024 Hematocrit (Bld) [Volume fraction] 32.1 % Low 37-47 [facility] Hemoglobin measurementOrdere d By: Tree Mitchell on 12-07-2024 Hemoglobin (Bld) [Mass/Vol] 10.2 g/dL Low 12.0-15.0 [facility] Immature granulocytes/100 WB C Auto (Bld)Ordered By: Tree Mitchell on 12-07-2024 Immature granulocytes/100 WBC (Bld) 0.300 % 0.0-0.9 [facility] Comment on above: IG% - Immature Granu locytes (promyelocytes, myelocytes and metamyelocytes) > 1% indicates that a LEFT SHIFT is Present. Laboratory - Chemistry and C hemistry - challengeOrdered By: Tree Mitchell on 12-07-2024 AST [Catalytic activity/Vol] 33 U/L 15-37 [facility] Laboratory - Hematology and Cell countsOrdered By: Tree Mitchell on 12-07-2024 Anisocytosis Ql (Bld) 1+ [facility] Lipaseon 12-07-2024 Lipase [Catalytic activity/Vol] 27 U/L Normal 13-75 [facility] Comment on above: Result Comment: Whitley meeks note: LIPASE revised reference range effective 23. New Lipase methodology. Expected to produce lower values than the previous assay method. NEW Reference Range: 13 - 75 U/L Performed By: #### L 100.0100 #### [facility] Laboratory [address], [place], [id number] Lipase measurementOrdered By : Tree Mitchell on 12-07-2024 Lipase [Catalytic activity/Vol] 27 U/L 13-75 [facility] Comment on above: Please note:LIPASE r evised reference range effective 23. New Lipase methodology. Expected to produce lower values than the previous assay method. NEW Reference Range: 13 - 75 U/L Liver Profileon 12-07-2024 Albumin [Mass/Vol] 3.5 g/dL Normal 3.2-5.0 [facility] Comment on above: Performed By: #### L 100.0100 #### [facility] Laboratory [address] [place], [place], [id number] ALK P 58 U/L Normal 45-117 [facility] Comment on above: Performed By: #### L 100.0100 #### [place] [facility] [address] [place], [address] ALT [Catalytic activity/Vol] 22 U/L Normal 13-56 [facility] Comment on above: Performed By: #### L 100.0100 #### [facility] Laboratory [address] [place], [address] AST [Catalytic activity/Vol] 33 U/L Normal 15-37 [facility] Comment on above: Performed By: #### L 100.0100 #### [facility] Laboratory [address] [place], [address] Bilirubin [Mass/Vol] 1.00 mg/dL Normal 0.20-1.00 [facility] Comment on above: Result Comment: For patients on eltrombopag therapy, use of Dimension [place] TBIL is not recommended. Performed By: #### L 100.0100 #### [facility] [address] [place], [address] Bilirubin.direct [Mass/Vol] 0.21 mg/dL Normal 0.00-0.30 [facility] Comment on above: Performed By: #### L 100.0100 #### [facility] [address] [place], [address] Globulin (S) [Mass/Vol] 4.0 g/dL Normal 2.2-4.2 [facility] Comment on above: Performed By: #### L 100.0100 #### [facility] [address] [place], [address] T PROT 7.5 g/dL Normal 6.4-8.2 [facility] Comment on above: Performed By: #### L 100.0100 #### [facility] [address] [place], [address] Lymphocytes Auto (Unsp spec) [#/Vol]Ordered By: Tree Mitchell on 12-07-2024 Lymphocytes (Bld) [#/Vol] 0.97 10*3/uL 0.83-4.51 [facility] Lymphocytes/100 WBC Auto (Un sp spec)Ordered By: Tree Mitchell on 12-07-2024 Lymphocytes/100 WBC (Bld) 29.8 % 19-41 [facility] MCV (mean corpuscular volume ) determinationOrdered By: Tree Mitchell on 12-07-2024 MCV (RBC) [Entitic vol] 89.7 fL 81-99 [facility] Mean corpuscular hemoglobin (MCH) determinationOrdered By: Tree Mitchell on 12-07-2024 MCH (RBC) [Entitic mass] 28.5 pg 27.0-32.0 [facility] Mean corpuscular hemoglobin concentration (MCHC) determinationOrdered By: Tree Mitchell on 12-07-2024 MCHC (RBC) [Mass/Vol] 31.8 g/dL Low 32-36 [facility] Mean platelet volume determi nationOrdered By: Tree Mitchell on 12-07-2024 Platelet mean volume (Bld) [Entitic vol] 11.3 fL 6.2-12.0 [facility] Monocyte percentageOrdered B y: Tree Mitchell on 12-07-2024 Monocytes/100 WBC (Bld) 8.3 % 0-10 [facility] Neutrophil percentageOrdered By: Tree Mitchell on 12-07-2024 Neutrophils/100 WBC (Bld) 60.4 % 47-70 [facility] Nucleated red blood cell per centageOrdered By: Tree Mitchell on 12-07-2024 Nucleated RBC/100 WBC (Bld) [Ratio] 0 % 0-5 [facility] Platelet countOrdered By: Karen Mitchell on 12-07-2024 Platelets (Bld) [#/Vol] 52 10*3/uL Low 150-450 [facility] Platelets LM Ql (Bld)Ordered By: Tree Mitchell on 12-07-2024 Platelet Estimate MOD DEC ADEQ [facility] Potassium measurementOrdered By: Tree Mitchell on 12-07-2024 Potassium [Moles/Vol] 3.9 mmol/L 3.5-5.1 [facility] RBC Auto (Bld) [#/Vol]Ordere d By: Tree Mitchell on 12-07-2024 RBC (Bld) [#/Vol] 3.58 10*6/uL Low 4.2-5.4 [facility] Serum anion gap measurementO rdered By: Tree Mitchell on 12-07-2024 Anion gap [Moles/Vol] 4 mmol/L Low 5-15 [facility] Serum globulin measurementOr dered By: Tree Mitchell on 12-07-2024 Globulin (S) [Mass/Vol] 4.0 g/dL 2.2-4.2 [facility] Serum or plasma alanine braun otransferase (ALT) measurementOrdered By: Tree Mitchell on 12-07-2024 ALT [Catalytic activity/Vol] 22 U/L 13-56 [facility] Serum or plasma albumin peewee urement (mass/volume)Ordered By: Tree Mitchell on 12-07-2024 Albumin [Mass/Vol] 3.5 g/dL 3.2-5.0 [facility] Serum or plasma alkaline senia sphatase measurementOrdered By: Tree Mitchell on 12-07-2024 ALP [Catalytic activity/Vol] 58 U/L 45-117 [facility] Serum or plasma calcium peewee urement (mass/volume)Ordered By: Tree Mitchell on 12-07-2024 Calcium [Mass/Vol] 9.3 mg/dL 8.5-10.1 [facility] Serum or plasma creatinine m easurement (mass/volume)Ordered By: Tree Mitchell on 12-07-2024 Creatinine [Mass/Vol] 0.98 mg/dL 0.55-1.02 [facility] Comment on above: The validity of the calculated GFR & GFRAA in patients over 70 years has not been determined. Clinical correlation is essential. Serum or plasma urea nitroge n measurement (mass/volume)Ordered By: Tree Mitchell on 12-07-2024 Urea nitrogen [Mass/Vol] 16 mg/dL 7-18 [facility] Sodium levelOrdered By: Alden Mitchell on 12-07-2024 Sodium [Moles/Vol] 139 mmol/L 136-145 [facility] Total proteinOrdered By: Alfredo Mitchell on 12-07-2024 Protein [Mass/Vol] 7.5 g/dL 6.4-8.2 [facility] White blood cell (WBC) count Ordered By: Tree Stephen on 12-07-2024 WBC (Bld) [#/Vol] 3.3 10*3/uL Low 4.4-11.0 [facility] CNPNon 11-25-2024 CNPN Telephone (NEMOWS) ----- DOMINIC JIMENEZ ([id number]) 1970 F Date Time Provider Department 11/25/24 NEUROLOGY PROVIDER AMINA During your visit today, we recorded the following information about you: Katelyn Anton LPN 11/25/2024 1:03 PM Signed Patient called needing scheduled to establish care with Dr. Zepeda for neuropathy due to current neurologist retiring. Nurse tried to schedule patient for 12/14/24 at 3:40p. Epic would not let me schedule patient due to insurance issues. Please review and advise patient. Katelyn Anton LPN November 25, 2024 1:03 PM Katelyn Anton LPN 11/25/2024 1:[address] Jensen is patient's prior neurologist. . ZHEN Rubio Sherrie 11/27/2024 8:06 AM Signed Patient has insurance that is Out of Network with [facility] referral. April Rosario 12/03/2024 10:03 AM Signed On 12/03 still pending review Allergies As of Date: 11/25/2024 Noted Allergy Reaction APAP (ACETAMINOPHEN) 03/04/2024 15 - Contraindication-Medical [place]* Comments: Patient states her GI doctor told her not to take this medication due to liver problems IBUPROFEN 03/04/2024 15 - Contraindication-Medical [place]* Comments: Patient states her GI doctor told her not to take this medication due to liver problems Date Reviewed: 10/28/2024 Reviewed by: Aure Carlton APRN.[employer]AL [employer] - Fully Assessed Prescriptions as of 12/03/2024 - hydrOXYzine pamoate (VISTARIL) 25 mg capsule TAKE 1 CAPSULE BY MOUTH EVERY 12 HOURS NEEDED FOR ANXIETY - ferrous sulfate (IRON, FERROUS SULFATE,) 325 mg (65 mg iron) tablet Take 325 mg by mouth two times a day. - DULoxetine (CYMBALTA) 60 mg capsule Take 1 capsule by mouth two times a day. - gabapentin (NEURONTIN) 800 mg tablet Take 800 mg by mouth three times a day. - mirabegron (MYRBETRIQ) 50 mg Tb24 Take 50 mg by mouth daily with breakfast. - methocarbamol (ROBAXIN) 500 mg tablet Take 1 tablet by mouth three times a day. - calcium citrate-vitamin D3 (CITRACAL+D) 315 mg-5 mcg (200 unit) tab Take by mouth as directed. - cholestyramine (QUESTRAN) 4 gram packet DISSOLVE IN WATER AND TAKE 1 POWDER PACKET BY MOUTH TWICE DAILY NEEDED - estradiol (ESTRACE) 0.01 % (0.1 mg/gram) vaginal cream INSERT 1 GRAM VAGINALLY THREE TIMES A WEEK BEFORE BED - testosterone (VOGELXO) 12.5 mg/ 1.25 gram (1 %) transdermal gel Apply as directed. - citalopram (CELEXA) 20 mg tablet Take 1 tablet by mouth once daily. - traZODone (DESYREL) 100 mg tablet Take 2 tablets by mouth daily at bedtime. - tiZANidine HCl (ZANAFLEX) 4 mg capsule Take by mouth. - progesterone micronized (PROMETRIUM) 100 mg capsule Take by mouth. - gabapentin (NEURONTIN) 100 mg capsule Take 1 capsule by mouth at bedtime as needed for up to 90 days. - rifAXIMin (XIFAXAN) 550 mg tablet Take 550 mg by mouth two times a day. - GEMTESA 75 mg tablet Take 1 tablet by mouth every afternoon. - lactulose 10 gram/15 mL solution Take 10 g by mouth three times daily as needed. - ascorbic acid, vitamin C, (VITAMIN C) 500 mg tablet Take 500 mg by mouth once daily. - cranberry fruit extract (CRANBERRY EXTRACT) 500 mg tab Take 1 tablet by mouth three times daily. - d-mannose 500 mg cap Take 1,000 mg by mouth twice daily. - Magnesium 250 mg tab Take 250 mg by mouth once daily. - glucosamine/chondr paniagua A sod (GLUCOSAMINE-CHONDROITIN) 750-600 mg tab Take 1 tablet by mouth once daily. - Lactobac no.41/Bifidobact no.7 (PROBIOTIC-10 ORAL) Take 1 tablet by mouth once daily. - vitamin B complex (B COMPLEX 1 ORAL) Take 1 tablet by mouth once daily. - estradiol 0.01% estriol 0.01% topical cream (CPD) Apply 0.1ml to upper inner arm daily. - PROGESTERONE MISC - Milk Thistle 175 mg tab Take 1 tablet by mouth once daily. - cyanocobalamin (VITAMIN B-12) 1,000 mcg tab Take 1 tablet by mouth once daily. - ginkgo biloba leaf extract 60 mg tab Take 1 tablet by mouth once daily. - famotidine (PEPCID) 40 mg tablet Take 40 mg by mouth daily at bedtime. - nadolol (CORGARD) 20 mg tablet Take 20 mg by mouth once daily. For 30 days - vfparusnwwih-rggetgui-kze braun k-coenzyme Q-10 (DEKAS PLUS) 200 mcg-1,000 mcg-10 mg chewable tablet Take 1 tablet by mouth once daily. - folic acid 1 mg tablet Take 1 mg by mouth once daily. - pantoprazole DR (PROTONIX) 40 mg tablet Take 40 mg by mouth once daily. - thiamine (VITAMIN B1) 100 mg tablet Take 100 mg by mouth once daily. - cholecalciferol (VITAMIN D3) 5,000 unit tab Take 5,000 Units by mouth once daily. Problem List As Of Date 11/25/2024 Noted Resolved Hallucinations [R44.3] 10/06/2021 11/19/2023 Delirium due to multiple etiologies, acute, hyp*10/07/2021 08/14/2023 Depression [F32.A] 10/07/2021 Acute metabolic encephalopathy [G93.41] 10/12/2021 08/14/2023 Malnutrition of moderate degree (HCC) [E44.0] 10/31/2021 08/14/2023 Hyperlipidemia (more content not included)... Normal [facility] CNOVon 10-28-2024 CNOV Office Visit (FAMAAR ) ----- DOMINIC JIMENEZ ([id number]) 1970 F Date Time Provider Department 10/28/24 9:20 AM AURE CARLTON During your visit today, we recorded the following information about you: Temperature Pulse Respiration Blood pressure 97.1 degrees 75/minute 18/minute 104/72 Weight Height 95.3 kg 1.753 m Aure Carlton, EDGER HAND.OFFAL ICER POULTRY 10/28/2024 10:36 PM Signed Dominic Jimenez is a 54 year old female who presents with Hospital F/U (Dominic is here following a hospital visit at [facility] from 10/23 to 10/25. Was having several symptoms (sore back, weakness, SOB, dizziness, pale skin, nausea) while hemoglobin was low. Determined that her bone marrow wasn't producing iron correctly. Had blood transfusion and 2 IVs of iron while at hospital and started iron supplements. Referred to Dr. Sarabia for follow up and needs HIDA scan ordered to check gallbladder.//Zi Jerome MA/October 28, 2024 9:39 AM//) Dominic presents today for f/u from hospitalization at [facility] 10/23-10/25 with complaints of symptomatic anemia and right upper quadrant pain. In ER, hemoglobin was found to be 7.1, WBC 2.5 and platelets 47. FOBT negative. Had been complaining of weakness and shortness of breath. She was transfused 2 units of PRBCs. She also had complaints of postmenopausal bleeding with scheduled appointment with [facility] next month. Had denied any noted GI bleeding. CT abdomen and pelvis was done, showing hepatosplenomegaly with collateral veins consistent with cirrhosis and portal venous hypertension, persistent thickening of anterior Gerota's fascia bilaterally unchanged from prior examination, small hiatal hernia and no acute process. She was given IV iron. GI was consulted and did not feel she needed inpatient endoscopy. Hemoglobin had improved to 8.4 on the day of discharge, WBC 3.0, platelets 49. She was advised to start oral iron supplementation 325 mg twice a day. Saw Dr. Sarabia while hospitalized. She will be seeing him again, rather than Dr. Scott. She is not sure if Dr. Sarabia was recommending her to see hematology for further evaluation. Has not had significant improvement in SOB yet. Appetite has been low. Has been having BL lower back pain for the past few months. No radiculopathy. Improves with massage. Hospitalist recommended FORTINO for further evaluation while she is changing GI providers back to Dr. Sarabia. The history is provided by the patient and medical records. Hemoglobin A1C Date Value Ref Range Status 10/10/2024 5.7 (H) 4.3 - 5.6 % Final Comment: [place] [employer] guidelines indicate that patients with HgbA1c in the range 5.7-6.4% are at increased risk for development of diabetes, and intervention by lifestyle modification may be beneficial. HgbA1c greater or equal to 6.5% is considered diagnostic of diabetes. 05/09/2023 5.4 4.3 - 6.0 % Final Comment: [place] [employer] guidelines indicate that patients with HgbA1c in the range 5.7-6.4% are at increased risk for development of diabetes, and intervention by lifestyle modification may be beneficial. HgbA1c greater or equal to 6.5% is considered diagnostic of diabetes. TSH Date Value Ref Range Status 08/08/2024 3.323 0.358 - 3.740 mIU/L Final Comment: 3rd generation ultra sensitive TSH. 05/09/2023 2.444 0.358 - 3.740 mIU/L Final Comment: 3rd generation ultra sensitive TSH. Albumin, Urine Random Date Value Ref Range Status 10/13/2021 <12.0 mg/L Final PAST MEDICAL HISTORY Diagnosis Date Alcoholic cirrhosis (HCC) Alcoholic hepatitis Anemia Clostridium difficile infection COVID-19 virus infection 08/2021 hospitalized Delirium 10/2021 prolonged hospital stay 09/2021-10/2021 at [facility] Depression Esophageal varices (HCC) Fatigue Hepatic encephalopathy (HCC) Neuropathy Splenomegaly Subdural hematoma (HCC) 09/2021 bilateral ACTIVE PROBLEM LIST Depression Hyperlipidemia Hepatic Cirrhosis (Hcc) Neuropathy Wernicke's Disease Alcoholic Cirrhosis (Hcc) Insomnia Anxiety Vitamin D Deficiency, Unspecified Polyneuropathy, Unspecified Esophageal Varices Without Bleeding (Hcc) Anemia, Unspecified Thrombocytopenia, Unspecified (Hcc) Current Outpatient Medications Medication Sig Dispense Refill DULoxetine (CYMBALTA) 60 mg capsule Take 1 capsule by mouth two times a day. 180 capsule 3 hydrOXYzine pamoate (VISTARIL) 25 mg capsule TAKE 1 CAPSULE BY MOUTH EVERY 12 HOURS NEEDED FOR ANXIETY 60 capsule 0 gabapentin (NEURONTIN) 800 mg tablet Take 800 mg by mouth three times a day. mirabegron (MYRBETRIQ) 50 mg Tb24 Take 50 mg by mouth daily with breakfast. methocarbamol (ROBAXIN) 500 mg tablet Take 1 tablet by mouth three times a day. 90 tablet 3 calcium citrate-vitamin D3 (CITRACAL+D) 315 mg-5 mcg (200 unit) tab Take by mouth as directed. (more content not included)... Normal [facility] CBC W/Diff, Automatedon PATH REV Reviewed Normal [facility] Comment on above: Result Comment: PANC YTOPENIA LEUKOPENIA Normocytic anemia. MARKED Thrombocytopenia. Clinical correlation necessary. Lacho Gutierres D.O. 10/26/24 AMENDED REPORT 10/26/24 1441 PATH REV previously reported as: March jose Performed By: #### L 100.0100 #### [facility] [address] [place], [place], [id number] PATH REV Reviewed Normal [facility] Comment on above: Order Comment: Comme nts: Add onto previous labs if possible Result Comment: PANC YTOPENIA Normocytic anemia. LEUKOPENIA MARKED Thrombocytopenia. Clinical correlation necessary. Lacho Gutierres D.O. 10/26/24 AMENDED REPORT 10/26/24 1437 PATH REV previously reported as: March foll Performed By: #### L 503.6150, L100.9950 #### [facility] [address] [place], [place], [id number] Absolute neutrophil countOrd ered By: Gavin Vaca on 10-25-2024 Neutrophils (Bld) [#/Vol] 1.7 10*3/uL Low 2.0-7.7 [facility] Basophil percentageOrdered B y: Gavin Vaca on 10-25-2024 Basophils/100 WBC (Bld) 0.3 % 0-1 [facility] Discharge Instructionon 0 Discharge Instruction [facility] Medical Records Department [address] [place] [address] Instructions for Home/Discharge Instructions 10/25/24 1237 MR#: [id number] Acct: [id number] Name: DOMINIC JIMENEZ Rep #: [id number] : 1970 54 From: Gavin Vaca DO PCP: TAMARA LANDERS Status:ADM IN Discharge Instructions Diet Discharge Diet: No restrictions DC O2, CPAP, BIPAP needs Additional Home O2 Discharge instructions: No Dressing / Incision Discharge Activity: Return to Normal Activity Weight Bearing Status: Full weight bearing Follow Up Care Test Results: Test results from this visit will be discussed in further detail at your follow-up appointment, if applicable. Discharge Plan Admission Admit Date/Time: 10/23/24 17:37 Primary Reason for Your Visit: IRON DEFICIENCY ANEMIA Attending Provider: Gavin Vaca Primary Care Provider: AURE CARLTON Consulting Providers: Rosana Pizano Discharge Orders/Prescriptions Prescriptions: New ferrous sulfate 325 mg (65 mg iron) tablet 325 mg PO BID Qty: 1 0RF Rx Instructions: OBTAIN OVER THE COUNTER Continued folic acid 1 mg Tablet 1 mg PO DAILY multivitamin Capsule 1 cap PO DAILY trazodone 50 mg Tablet 100 mg PO QHS thiamine HCl (vitamin B1) [Vitamin B-1] 100 mg Tablet 100 mg PO DAILY cholecalciferol (vitamin D3) [Vitamin D3] 125 mcg (5,000 unit) Tablet 125 mcg PO DAILY magnesium 250 mg Tablet 250 mg PO DAILY ginkgo biloba 60 mg Capsule 60 mg PO DAILY Rx Instructions: give with meal/snack progesterone micronized 100 mg Capsule 500 mg PO QHS milk thistle 175 mg Capsule 175 mg PO DAILY Rx Instructions: give with meal/snack Mobihmfvpha-Aohtkc-J2 (C-christiano) 500-400-667 mg-mg-unit Capsule 1 cap PO DAILY duloxetine 60 mg capsule,delayed release(DR/EC) 60 mg PO BID lactulose 10 gram/15 mL (15 mL) solution 15 ml PO TID PRN (Reason: ammonia) cefdinir 300 mg capsule 300 mg PO Q12H Qty: 14 0RF mirabegron 50 mg tablet extended release 24 hr 50 mg PO DAILY Rx Instructions: WITH BREAKFAST calcium citrate-vitamin D3 [Calcium Citrate + D] 315 mg-5 mcg (200 unit) tablet 1 tab PO DAILY cholestyramine (with sugar) 4 gram powder in packet 1 ea PO BID PRN PRN (Reason: HIGH CHOLESTEROL) Rx Instructions: DISOLVE IN WATER AND TAKE 1 PACKET BY MOUTH TWICE DAILY testosterone 12.5 mg/ 1.25 gram (1 %) gel in metered-dose pump 1 pump transdermal DAILY tizanidine 4 mg capsule 4 mg PO QHS gabapentin 800 mg tablet 800 mg PO TID rifaximin 550 mg tablet 550 mg PO BID ascorbic acid (vitamin C) 500 mg tablet 500 mg PO DAILY cranberry 500 mg capsule 500 mg PO DAILY Rx Instructions: administer with a meal AZO D-Mannose 500 mg capsule 1,000 mg PO BID diphenhydramine HCl [Benadryl] 25 mg capsule 50 mg PO QHS methocarbamol 500 mg tablet 500 mg PO TID citalopram 20 mg tablet 20 mg PO DAILY gabapentin 300 mg capsule 600 mg PO Q12H estradiol 0.01 % (0.1 mg/gram) cream 1 vaginal hydroxyzine pamoate 25 mg capsule 25 mg PO Q12H PRN PRN (Reason: anxiety) Gemtesa 75 mg tablet 75 mg PO DAILY pantoprazole 40 mg tablet,delayed release (DR/EC) 40 mg PO DAILY Qty: 90 2RF nadolol 20 mg tablet 20 mg PO DAILY Qty: 30 11RF famotidine 40 mg tablet 40 mg PO QHS Qty: 90 5RF Referrals / Follow Up: Leodan Sarabia DO [Med Staff - Active Staff] - See Referral Note (IN 3-4 WEEKS) AURE CARLTON NP-C [Primary Care Provider] - Within 1 Week (HAVE HER SCHEDULE A HIDA SCAN TO CHECK OUT YOUR GALLBLADDER FUNCTION) Disposition Disposition (needs filled in before D/C Order can be placed): Home, Self Care 10/25/24 1242 Gavin Vaca DO CC: TAMARA CARLTON; Dr. Rosana Pizano MD Signed Normal [facility] Eosinophil percentageOrdered By: Gavin Vaca on 10-25-2024 Eosinophils/100 WBC (Bld) 1.7 % 0-5 [facility] Erythrocyte distribution wid th ratioOrdered By: Gavin Vaca on 10-25-2024 Erythrocyte distribution width (RBC) [Ratio] 16.4 % High 11.6-14.6 [facility] Erythrocyte distribution wid th standard deviationOrdered By: Gavin Vaca on 10-25-2024 Erythrocyte distribution width (RBC) [Entitic vol] 48.9 fL High 35.1-43.9 [facility] Hematocrit Auto (Bld) [Volum e fraction]Ordered By: Gavin Vaca on 10-25-2024 Hematocrit (Bld) [Volume fraction] 28.2 % Low 37-47 [facility] Hemoglobin measurementOrdere d By: Gavin Vaca on 10-25-2024 Hemoglobin (Bld) [Mass/Vol] 8.4 g/dL Low 12.0-15.0 [facility] Immature granulocytes/100 WB C Auto (Bld)Ordered By: Gavin Vaca on 10-25-2024 Immature granulocytes/100 WBC (Bld) 0.700 % 0.0-0.9 [facility] Comment on above: IG% - Immature Granu locytes (promyelocytes, myelocytes and metamyelocytes) > 1% indicates that a LEFT SHIFT is Present. Lymphocytes Auto (Unsp spec) [#/Vol]Ordered By: Gavin Vaca on 10-25-2024 Lymphocytes (Bld) [#/Vol] 0.97 10*3/uL 0.83-4.51 [facility] Lymphocytes/100 WBC Auto (Un sp spec)Ordered By: Gavin Vaca on 10-25-2024 Lymphocytes/100 WBC (Bld) 32.8 % 19-41 [facility] MCV (mean corpuscular volume ) determinationOrdered By: Gavin Vaca on 10-25-2024 MCV (RBC) [Entitic vol] 81.5 fL 81-99 [facility] Mean corpuscular hemoglobin (MCH) determinationOrdered By: Gavin Vaca on 10-25-2024 MCH (RBC) [Entitic mass] 24.3 pg Low 27.0-32.0 [facility] Mean corpuscular hemoglobin concentration (MCHC) determinationOrdered By: Gavin Vaca on 10-25-2024 MCHC (RBC) [Mass/Vol] 29.8 g/dL Low 32-36 [facility] Mean platelet volume determi nationOrdered By: Gavin Vaca on 10-25-2024 Mean Platelet Volume TNP [facility] Comment on above: Test not performed Monocyte percentageOrdered B y: Gavin Vaca on 10-25-2024 Monocytes/100 WBC (Bld) 8.8 % 0-10 [facility] Neutrophil percentageOrdered By: Gavin Vaca on 10-25-2024 Neutrophils/100 WBC (Bld) 55.7 % 47-70 [facility] Nucleated red blood cell per centageOrdered By: Gavin Vaca on 10-25-2024 Nucleated RBC/100 WBC (Bld) [Ratio] 0 % 0-5 [facility] Pathologist review Reed (Unsp spec) [Interp]Ordered By: Gavin Vaca on 10-25-2024 Differential Pathologist's Review Reviewed [facility] Comment on above: Previous reported re sult: Angely garcia Edited by: KHLOE on 10/26/24:1441PANCYTOPENIALEUKOPENIANormocytic anemia.MARKED Thrombocytopenia.Clinical correlation necessary.Lacho Gutierres D.O. 10/26/24 AMENDED REPORT 10/26/24 1441 PATH REV previously reported as: Angely garcia Platelet countOrdered By: Rosanna Vaca on 10-25-2024 Platelets (Bld) [#/Vol] 49 10*3/uL Low 150-450 [facility] Comment on above: CRITICAL VALUE RICHARDSON D TO BRENDAN MARCELA10/25/24 0735 Bryn Calabrese.RESULTS READ BACK BY SAME. RBC Auto (Bld) [#/Vol]Ordere d By: Gavin Vaca on 10-25-2024 RBC (Bld) [#/Vol] 3.46 10*6/uL Low 4.2-5.4 [facility] White blood cell (WBC) count Ordered By: Gavin Vaca on 10-25-2024 WBC (Bld) [#/Vol] 3.0 10*3/uL Low 4.4-11.0 [facility] Albumin to globulin ratioOrd ered By: Rosana Pizano on 10-24-2024 Albumin/Globulin [Mass ratio] 0.9 {ratio} 0.9-2.4 [facility] Bilirubin, totalOrdered By: Rosana Pizano on 10-24-2024 Bilirubin [Mass/Vol] 1.20 mg/dL High 0.20-1.00 [facility] Comment on above: For patients on eltr ombopag therapy, use of Dimension [place] TBIL is not recommended. Blood urea nitrogen (BUN)/cr eatinine ratioOrdered By: Rosana Pizano on 10-24-2024 Urea nitrogen/Creatinine [Mass ratio] 13.0 mg/mg 10-20 [facility] CBC W/Diff, Automatedon 12-0 MPV TNP Normal 6.2-12.0 [facility] Comment on above: Performed By: #### L 100.0100, L500.4050 #### [facility] [address] [place], [address] Absolute Lymph 1.03 X10 3/uL Normal 0.83-4.51 [facility] Comment on above: Performed By: #### L 100.0100, L500.4050 #### [facility] [address] [place], [address] Absolute Neut 1.5 X10 3/uL Low 2.0-7.7 [facility] Comment on above: Performed By: #### L 100.0100, L500.4050 #### [facility] [address] [place], [address] Basophils/100 WBC (Bld) 0.7 % Normal 0-1 [facility] Comment on above: Performed By: #### L 100.0100, [id number] #### [facility] [address] [place], [address] Eosinophils/100 WBC (Bld) 2.1 % Normal 0-5 [facility] Comment on above: Performed By: #### L 100.0100, L500.4050 #### [facility] [address] [place], [address] Erythrocyte distribution width (RBC) [Ratio] 16.3 % High 11.6-14.6 [facility] Comment on above: Performed By: #### L 100.0100, [id number] #### [facility] [address] [place], [address] Hematocrit (Bld) [Volume fraction] 28.4 % Low 37-47 [facility] Comment on above: Performed By: #### L 100.0100, [id number] #### [facility] [address] [place], [address] Hemoglobin (Bld) [Mass/Vol] 8.4 g/dL Low 12.0-15.0 [facility] Comment on above: Performed By: #### L 100.0100, [id number] #### [facility] [address] [place], [address] IG% 0.300 Normal 0.0-0.9 [facility] Comment on above: Result Comment: IG% - Immature Granulocytes (promyelocytes, myelocytes and metamyelocytes) > 1% indicates that a LEFT SHIFT is Present. Performed By: #### L 100.0100, L500.4050 #### [facility] [address] [place], [address] Lymphocytes/100 WBC (Bld) 36.0 % Normal 19-41 [facility] Comment on above: Performed By: #### L 100.0100, [id number] #### [facility] [address] [place], [address] MCH (RBC) [Entitic mass] 23.9 pg Low 27.0-32.0 [facility] Comment on above: Performed By: #### L 100.0100, [id number] #### [facility] [address] [place], [address] MCHC (RBC) [Mass/Vol] 29.6 g/dL Low 32-36 [facility] Comment on above: Performed By: #### L 100.0100, [id number] #### [facility] [address] [place], [address] MCV (RBC) [Entitic vol] 80.9 fL Low 81-99 [facility] Comment on above: Performed By: #### L 100.0100, [id number] #### [facility] [address] [place], [address] Monocytes/100 WBC (Bld) 8.4 % Normal 0-10 [facility] Comment on above: Performed By: #### L 100.0100, [id number] #### [facility] [address] [place], [address] Neutrophils/100 WBC (Bld) 52.5 % Normal 47-70 [facility] Comment on above: Performed By: #### L 100.0100, [id number] #### [facility] [address] [place], [address] Nucleated RBC (Bld) [#/Vol] 0 10*3/uL Normal 0-5 [facility] Comment on above: Performed By: #### L 100.0100, [id number] #### [facility] [address] [place], [address] Platelets (Bld) [#/Vol] 52 10*3/uL Low 150-450 [facility] Comment on above: Performed By: #### L 100.0100, [id number] #### [facility] [address] [place], [address] RBC (Bld) [#/Vol] 3.51 10*6/uL Low 4.2-5.4 [facility] Comment on above: Performed By: #### L 100.0100, [id number] #### [facility] [address] [place], [address] RDW SD 47.4 fl High 35.1-43.9 [facility] Comment on above: Performed By: #### L 100.0100, [id number] #### [facility] [address] [place], [address] WBC (Bld) [#/Vol] 2.9 10*3/uL Low 4.4-11.0 [facility] Comment on above: Performed By: #### L 100.0100, [id number] #### [facility] [address] [place], [address] Carbon dioxide measurementOr dered By: Rosana Pizano on 10-24-2024 CO2 [Moles/Vol] 23.0 mmol/L 21.0-32.0 [facility] Chloride measurementOrdered By: Rosana Pizano on 10-24-2024 Chloride [Moles/Vol] 112 mmol/L High 98-107 [facility] Comprehensive Metabolic Prof ilon 10-24-2024 Albumin [Mass/Vol] 3.1 g/dL Low 3.2-5.0 [facility] Comment on above: Performed By: #### L 100.0100, [id number] #### [facility] [address] [place], [address] Albumin/Globulin [Mass ratio] 0.9 {ratio} Normal 0.9-2.4 [facility] Comment on above: Performed By: #### L 100.0100, [id number] #### [facility] [address] [place], [address] ALK P 55 U/L Normal 45-117 [facility] Comment on above: Performed By: #### L 100.0100, [id number] #### [facility] [address] [place], [address] ALT [Catalytic activity/Vol] 18 U/L Normal 13-56 [facility] Comment on above: Performed By: #### L 100.0100, [id number] #### [facility] [address] [place], [address] AST [Catalytic activity/Vol] 20 U/L Normal 15-37 [facility] Comment on above: Performed By: #### L 100.0100, [id number] #### [facility] [address] [place], [address] Bilirubin [Mass/Vol] 1.20 mg/dL High 0.20-1.00 [facility] Comment on above: Result Comment: For patients on eltrombopag therapy, use of Dimension [place] TBIL is not recommended. Performed By: #### L 100.0100, [id number] #### [facility] [address] [place], [address] BUN/CRE 13.0 RATIO Normal 10-20 [facility] Comment on above: Performed By: #### L 100.0100, [id number] #### [facility] [address] [place], [address] CA,Total 8.6 mg/dL Normal 8.5-10.1 [facility] Comment on above: Performed By: #### L 100.0100, [id number] #### [facility] [address] [place], [address] Chloride [Moles/Vol] 112 mmol/L High 98-107 [facility] Comment on above: Performed By: #### L 100.0100, [id number] #### [facility] [address] [place], [address] CO2 [Moles/Vol] 23.0 mmol/L Normal 21.0-32.0 [facility] Comment on above: Performed By: #### L 100.0100, [id number] #### [facility] [address] [place], [address] Creatinine [Mass/Vol] 0.84 mg/dL Normal 0.55-1.02 [facility] Comment on above: Result Comment: The validity of the calculated GFR GFRAA in patients over 70 years has not been determined. Clinical correlation is essential. Performed By: #### L 100.0100, L500.4050 #### [facility] [address] [place], [address] ECRCL 95.75 ml/min Normal [facility] Comment on above: Performed By: #### L 100.0100, L500.4050 #### [facility] [address] [place], [address] EST GFR - AA 90 mL/min Normal >60 [facility] Comment on above: Result Comment: Afri can Marshallese GFR Calc Performed By: #### L 100.0100, L500.4050 #### [facility] [address] [place], [address] GAP 5 Normal 5-15 [facility] Comment on above: Performed By: #### L 100.0100, L500.4050 #### [facility] [address] [place], [address] GFR/1.73 sq M.predicted among non-blacks MDRD (S/P/Bld) [Vol rate/Area] 74 mL/min/{1.73_m2} Normal >60 [facility] Comment on above: Result Comment: Non- GFR Calc Performed By: #### L 100.0100, L500.4050 #### [facility] [address] [place], [address] Globulin (S) [Mass/Vol] 3.5 g/dL Normal 2.2-4.2 [facility] Comment on above: Performed By: #### L 100.0100, L500.4050 #### [facility] [address] [place], [address] Glucose [Mass/Vol] 121 mg/dL High 74-106 [facility] Comment on above: Result Comment: Fast ing Glucose result from 100 to 125 mg/dL suggests IMPAIRED HOMEOSTASIS per A.D.A. criteria. Performed By: #### L 100.0100, L500.4050 #### [facility] [address] [place], [address] Potassium [Moles/Vol] 4.1 mmol/L Normal 3.5-5.1 [facility] Comment on above: Performed By: #### L 100.0100, L500.4050 #### [facility] [address] [place], [address] Sodium [Moles/Vol] 139 mmol/L Normal 136-145 [facility] Comment on above: Performed By: #### L 100.0100, L500.4050 #### [facility] [address] [place], [address] T PROT 6.6 g/dL Normal 6.4-8.2 [facility] Comment on above: Performed By: #### L 100.0100, L500.4050 #### [facility] [address] [place], [address] Urea nitrogen [Mass/Vol] 11 mg/dL Normal 7-18 [facility] Comment on above: Performed By: #### L 100.0100, L500.4050 #### [facility] [address] [place], [address] Estimated glomerular filtrat ion rate (GFR) AmericanOrdered By: Rosana Pizano on 10-24-2024 Estimated GFR (MDRD) Amer 90 mL/min >60 [facility] Comment on above: GFR Calc Estimation of creatinine tahir aranceOrdered By: Rosana Pizano on 10-24-2024 Estimated Creatinine Clearance Calc 95.75 ml/min [facility] Glomerular filtration rate ( GFR) estimationOrdered By: Rosana Pizano on 10-24-2024 Estimated GFR (MDRD) Non-Af Amer 74 mL/min >60 [facility] Comment on above: Non- GFR Calc Glucose measurementOrdered B y: Rosana Pizano on 10-24-2024 Glucose [Mass/Vol] 121 mg/dL High 74-106 [facility] Comment on above: Fasting Glucose resu lt from 100 to 125 mg/dL suggests IMPAIRED HOMEOSTASIS per A.D.A. criteria. Hemoglobin (Reticulocytes) [ Entitic mass]Ordered By: Rosana Pizano on 10-24-2024 Reticulocyte Hemoglobin Equivalent 20.7 pg Low 30-35 [facility] Immature reticulocyte fracti onOrdered By: Rosana Pizano on 10-24-2024 Immature Reticulocyte Fraction 28.40 % High 3.00-15.90 [facility] - Chemistry and C hemistry - challengeOrdered By: Rosana Pizano on 10-24-2024 AST [Catalytic activity/Vol] 20 U/L 15-37 [facility] Platelets reticulated/100 pl atelets Auto (Bld)Ordered By: Rosana Pizano on 10-24-2024 Immature Platelet Fraction 10.6 % High 1.0-7.9 [facility] Comment on above: Low PLT + Low IPF painagua ggest a bone marrow production disorderLow PLT + high IPF suggests peripheral destruction(e.g.ITP, TTP, HIT, DIC, autoimmune) or bone marrow recoveryTrending of serial IPF measurements is recommended when evaluating for bone marrow responesValue above normal range indicates an increase in RBC cellular response from bone marrow. Potassium measurementOrdered By: Rosana Pizano on 10-24-2024 Potassium [Moles/Vol] 4.1 mmol/L 3.5-5.1 [facility] Retic Panelon 10-24-2024 IM RET FRACTION 28.40 High 3.00-15.90 [facility] Comment on above: Order Comment: Comme nts: Add onto previous labs if possible Performed By: #### L 503.3500, L100.9950 #### [facility] [address] [place], [address] IPF 10.6 High 1.0-7.9 [facility] Comment on above: Order Comment: Comme nts: Add onto previous labs if possible Result Comment: Low PLT + Low IPF suggest a bone marrow production disorder Low PLT + high IPF suggests peripheral destruction (e.g.ITP, TTP, HIT, DIC, autoimmune) or bone marrow recovery Trending of serial IPF measurements is recommended when evaluating for bone marrow respones Value above normal range indicates an increase in RBC cellular response from bone marrow. Performed By: #### L 503.6150, L100.9950 #### [facility] [address] [place], [address] RET-HE 20.7 pg Low 30-35 [facility] Comment on above: Order Comment: Comme nts: Add onto previous labs if possible Performed By: #### L 503.6150, L100.9950 #### [facility] [address] [place], [address] Retic Count 1.79 High 0.5-1.5 [facility] Comment on above: Order Comment: Comme nts: Add onto previous labs if possible Performed By: #### L 503.6150, L100.9950 #### [facility] [address] [place], [address] Reticulocytes Auto (Bld) [#/ Vol]Ordered By: Rosana Pizano on 10-24-2024 Reticulocyte Count 1.79 % High 0.5-1.5 [facility] Serum anion gap measurementO rdered By: Rosana Pizano on 10-24-2024 Anion gap [Moles/Vol] 5 mmol/L 5-15 [facility] Serum globulin measurementOr dered By: Rosana Pizano on 10-24-2024 Globulin (S) [Mass/Vol] 3.5 g/dL 2.2-4.2 [facility] Serum or plasma alanine braun otransferase (ALT) measurementOrdered By: Rosana Pizano on 10-24-2024 ALT [Catalytic activity/Vol] 18 U/L 13-56 [facility] Serum or plasma albumin peewee urement (mass/volume)Ordered By: Rosana Pizano on 10-24-2024 Albumin [Mass/Vol] 3.1 g/dL Low 3.2-5.0 [facility] Serum or plasma alkaline senia sphatase measurementOrdered By: Rosana Pizano on 10-24-2024 ALP [Catalytic activity/Vol] 55 U/L 45-117 [facility] Serum or plasma calcium peewee urement (mass/volume)Ordered By: Rosana Pizano on 10-24-2024 Calcium [Mass/Vol] 8.6 mg/dL 8.5-10.1 [facility] Serum or plasma creatinine m easurement (mass/volume)Ordered By: Rosana Pizano on 10-24-2024 Creatinine [Mass/Vol] 0.84 mg/dL 0.55-1.02 [facility] Comment on above: The validity of the calculated GFR & GFRAA in patients over 70 years has not been determined. Clinical correlation is essential. Serum or plasma urea nitroge n measurement (mass/volume)Ordered By: Rosana Pizano on 10-24-2024 Urea nitrogen [Mass/Vol] 11 mg/dL 7-18 [facility] Sodium levelOrdered By: Andressa Pizano on 10-24-2024 Sodium [Moles/Vol] 139 mmol/L 136-145 [facility] Total proteinOrdered By: Talon Pizano on 10-24-2024 Protein [Mass/Vol] 6.6 g/dL 6.4-8.2 [facility] Abdomen/Pelvis W IV Cont ONL Yon 10-23-2024 Abdomen/Pelvis W IV Cont ONLY [facility] Imaging Services [address] [place], [place] [address] Abdomen/Pelvis W IV Cont ONLY MR#: [id number] Acct: [id number] Name: DOMINIC JIMENEZ Rep #: [id number] : 1970 F 54 From: Herman Martinez PCP: TAMARA LANDERS Status: REG ER Study: Abdomen/Pelvis W IV Cont ONLY Date of Exam: Exam# [id number] Ordering Dr: Gretchen Gómez [id number] STUDY: CT ABDOMEN AND PELVIS WITH CONTRAST REASON FOR EXAM: Female, 54 years old. Abdominal pain RADIATION DOSAGE (If Supplied By Facility): CTDIvol = ( 18.38 ) mGy, DLP = ( 1287.39 ) mGycm TECHNIQUE: 100CC ISOVUE 300 was administered. Transaxial images were obtained from the dome of the diaphragm to the symphysis pubis. Multiplanar coronal and sagittal images were reformatted. The protocol utilizes one or more of the following dose reduction techniques: automated exposure control, adjustment of mA and/or kV according to patient size,and/or use of iterative reconstruction technique. COMPARISON: No relevant prior comparison study available FINDINGS: The visualized portions of the lung bases demonstrate mild atelectasis or scarring. Coronary calcifications. Hepatomegaly and hepatic steatosis. Gallstones and/or sludge in the gallbladder. Severe splenomegaly. The spleen measures about 20 cm. Normal pancreas. Collateral veins in the splenic hilum consistent with portal venous hypertension. Normal bilateral adrenal glands. Probable small hiatal hernia. Normal in caliber small bowel loops. Fecal retention. No evidence of acute diverticulitis. The appendix is not identified. Retroperitoneal thickening of the anterior Gerota''s fascia bilaterally worse on the right side is again seen similar to the prior examination. No drainable abscess is seen. Atherosclerotic calcifications of the abdominal aorta without evidence of aneurysm. No retroperitoneal adenopathy. Normal right kidney. Normal left kidney. Normal urinary bladder. Right adnexal cyst is seen measuring about 3 cm. No free fluid. Normal abdominal wall. No demonstrated acute osseous changes. CT/Abdomen/Pelvis W IV Cont ONLY IMPRESSION: 1. Hepatosplenomegaly with collateral veins consistent with cirrhosis and portal venous hypertension. 2. Persistent thickening of the anterior Gerota''s fascia bilaterally for the most part unchanged since prior examination of undetermined etiology. 3. Small hiatal hernia. 4. Otherwise no focal acute inflammatory process.. Electronically Signed: Herman Chen MD at 16:06 EST , CC: TAMARA CARLTON; RACHELL Engel Forming Operator: Signed Normal [facility] BRCon 10-23-2024 RC Normal [facility] Comment on above: Result Comment: [id number] AP RC TRANSFUSED 10/23/24 1557 [id number] AP RC TRANSFUSED 10/23/24 1752 Performed By: #### L 503.6150, L100.9950 #### [facility] [address] [place], [address] Bilirubin Test strip Ql (U)O rdered By: Gretchen Gómez on 10-23-2024 Bilirubin Ql (U) Negative Negative [facility] Comprehensive Metabolic Prof ilon 10-23-2024 Albumin [Mass/Vol] 3.3 g/dL Normal 3.2-5.0 [facility] Comment on above: Performed By: #### L 503.6150, L100.9950 #### [facility] [address] [place], [address] Albumin/Globulin [Mass ratio] 0.9 {ratio} Normal 0.9-2.4 [facility] Comment on above: Performed By: #### L 503.6150, L100.9950 #### [facility] [address] [place], [address] ALK P 57 U/L Normal 45-117 [facility] Comment on above: Performed By: #### L 503.6150, L100.9950 #### [facility] [address] [place], [address] ALT [Catalytic activity/Vol] 23 U/L Normal 13-56 [facility] Comment on above: Performed By: #### L 503.6150, L100.9950 #### [facility] [address] [place], [address] AST [Catalytic activity/Vol] 61 U/L High 15-37 [facility] Comment on above: Result Comment: Mode rate Hemolysis, Result may be falsely increased. Performed By: #### L 503.6150, L100.9950 #### [facility] [address] [place], [address] Bilirubin [Mass/Vol] 0.80 mg/dL Normal 0.20-1.00 [facility] Comment on above: Result Comment: For patients on eltrombopag therapy, use of Dimension [place] TBIL is not recommended. Performed By: #### L 503.6150, L100.9950 #### [facility] [address] [place], [address] BUN/CRE 10.6 RATIO Normal 10-20 [facility] Comment on above: Performed By: #### L 503.6150, L100.9950 #### [facility] [address] [place], [address] CA,Total 8.9 mg/dL Normal 8.5-10.1 [facility] Comment on above: Performed By: #### L 503.6150, L100.9950 #### [facility] [address] [place], [address] Chloride [Moles/Vol] 112 mmol/L High 98-107 [facility] Comment on above: Performed By: #### L 503.6150, L100.9950 #### [facility] [address] [place], [address] CO2 [Moles/Vol] 22.0 mmol/L Normal 21.0-32.0 [facility] Comment on above: Performed By: #### L 503.6150, L100.9950 #### [facility] [address] [place], [address] Creatinine [Mass/Vol] 0.85 mg/dL Normal 0.55-1.02 [facility] Comment on above: Result Comment: The validity of the calculated GFR GFRAA in patients over 70 years has not been determined. Clinical correlation is essential. Performed By: #### L 503.6150, L100.9950 #### [facility] [address] [place], [address] ECRCL 95.14 ml/min Normal [facility] Comment on above: Performed By: #### L 503.6150, L100.9950 #### [facility] [address] [place], [address] EST GFR - AA 89 mL/min Normal >60 [facility] Comment on above: Result Comment: Afri can Marshallese GFR Calc Performed By: #### L 503.6150, L100.9950 #### [facility] [address] [place], [address] GAP 6 Normal 5-15 [facility] Comment on above: Performed By: #### L 503.6150, L100.9950 #### [facility] [address] [place], [address] GFR/1.73 sq M.predicted among non-blacks MDRD (S/P/Bld) [Vol rate/Area] 74 mL/min/{1.73_m2} Normal >60 [facility] Comment on above: Result Comment: Non- GFR Calc Performed By: #### L 503.6150, L100.9950 #### [facility] [address] [place], [address] Globulin (S) [Mass/Vol] 3.8 g/dL Normal 2.2-4.2 [facility] Comment on above: Performed By: #### L 503.6150, L100.9950 #### [facility] [address] [place], [address] Glucose [Mass/Vol] 117 mg/dL High 74-106 [facility] Comment on above: Result Comment: Fast ing Glucose result from 100 to 125 mg/dL suggests IMPAIRED HOMEOSTASIS per A.D.A. criteria. Performed By: #### L 503.6150, L100.9950 #### [facility] [address] [place], [address] Potassium [Moles/Vol] 4.4 mmol/L Normal 3.5-5.1 [facility] Comment on above: Result Comment: Mode rate Hemolysis, Result may be falsely increased. Performed By: #### L 503.6150, L100.9950 #### [facility] [address] [place], [address] Sodium [Moles/Vol] 140 mmol/L Normal 136-145 [facility] Comment on above: Performed By: #### L 503.6150, L100.9950 #### [facility] [address] [place], [address] T PROT 7.1 g/dL Normal 6.4-8.2 [facility] Comment on above: Performed By: #### L 503.6150, L100.9950 #### [facility] [address] [place], [address] Urea nitrogen [Mass/Vol] 9 mg/dL Normal 7-18 [facility] Comment on above: Performed By: #### L 503.6150, L100.9950 #### [facility] [address] 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 She normally runs around 11. She takes lactulose and has about 2 bowel movements a day. She denies any type of blood loss including hematemesis, melena, or hematochezia. Over the last few months she has had intermittent abdominal pain mainly in the RUQ and had an ultrasound showing gallbladder sludge but states her symptoms have no relation to what she eats. She also feels tired and intermittently short of breath. [facility] Medical History Rash History of ulceration Chronic pain Non-smoker Neuropathy Wears glasses Post-menopausal Anxiety Alcohol use Anemia Migraine headache Syncope Gastric reflux Non-smoker History of pain when walking Leg cramps History of edema Cardiology follow-up encounter History of Clostridium difficile infection Splenomegaly Abnormal liver function test Cirrhosis of liver Wernickes encephalopathy Alcoholic hepatitis Home Medications ???Medication ???Instructions ???Recorded ???Last Taken ???Type cholecalciferol (vitamin D3) 125 125 mcg PO DAILY supple 04/04/22 U nknown History mcg (5,000 unit) tablet (Vitamin D3) folic acid 1 mg tablet 1 mg PO DAILY 04/04/22 Unknown His tory multivitamin 1 cap PO DAILY 04/04/22 Unknown Hi story thiamine HCl (vitamin B1) 100 mg 100 mg PO DAILY 04/04/22 Unknown H istory tablet (Vitamin B-1) trazodone 50 mg tablet 200 mg PO QHS SLEEP 04/04/22 Unkno wn History nadolol 20 mg tablet 20 mg PO DAILY see phy #30 tabs Unknown Rx pantoprazole 40 mg tablet,delayed 40 mg PO DAILY #90 tabs 03/11/23 Unknown Rx release ginkgo biloba 60 mg capsule 60 mg PO DAILY 05/08/23 Unknown Hi story glucosamine 500 1 cap PO DAILY 05/08/23 Unknown Hi story zh-oncikoaci-vzzvzmpf comp 400 mg-D3 667 unit-C-Mn cap (Glucosamine-Chondroitin- D3(C-manganese)) magnesium 250 mg tablet 250 mg PO DAILY 05/08/23 Unknown H istory milk thistle 175 mg capsule 175 mg PO DAILY 05/08/23 Unknown H istory progesterone micronized 100 mg 500 mg PO QHS 05/08/23 Unknown His tory capsule famotidine 40 mg tablet 40 mg PO QHS #90 tabs 06/11/23 Unk nown Rx duloxetine 60 mg capsule,delayed 60 mg PO BID 07/07/23 Unknown Hist ory release lactulose 10 gram/15 mL (15 mL) 15 ml PO TID PRN ammonia 07/07/23 Unknown History oral solution citalopram 20 mg tablet 20 mg PO DAILY 07/10/24 Unknown Hi story estradiol 0.01% (0.1 mg/gram) 1 appful vaginal QHS suppl 4 Unknown History vaginal cream hydroxyzine pamoate 25 mg capsule 25 mg PO BID anxiety 07/10/24 Unk nown History methocarbamol 500 mg tablet 500 mg PO TID PRN pain 07/10/24 Un known History vibegron 75 mg tablet (Gemtesa) 75 mg PO DAILY 07/10/24 Unknown Hi story ascorbic acid (vitamin C) 500 mg 500 mg PO DAILY 10/23/24 Unknown H istory tablet calcium 315 mg (as 1 tab PO DAILY 10/23/24 Unknown Hi story citrate)-vitamin D3 5 mcg (200 unit) tablet (Calcium Citrate + D) cholestyramine (with sugar) 4 gram 1 ea PO BID PRN PRN HIGH 4 Unknown History powder for susp in a packet CHOLESTEROL cranberry 500 mg capsule 500 mg PO DAILY 10/23/24 Unknown H istory d-mannose 500 mg capsule (AZO 1,000 mg PO BID 10/23/24 Unknown H istory D-Mannose) diphenhydramine HCl 25 mg capsule 50 mg PO QHS insom 10/23/24 Unkno wn History (Benadryl) gabapentin 800 mg tablet 800 mg PO TID 10/23/24 Unknown His tory mirabegron 50 mg tablet,extended 50 mg PO DAILY 10/23/24 Unknown Hi story release 24 hr rifaximin 550 mg tablet 550 mg PO BID 10/23/24 Unknown His tory testosterone 12.5 mg/1.25 gram per 1 pump transdermal DAILY 4 Unknown History pump actuation (1%) transdermal gel tizanidine 4 mg capsule 4 mg PO QHS 10/23/24 Unknown Histo ry ferrous sulfate 325 mg (65 mg 325 mg PO BID #1 TAB 10/25/24 Unkn own Rx iron) tablet oxycodone 5 mg tablet 5 mg PO Q6H PRN pain 5 days #20 Unknown Rx tabs oxycodone 5 mg tablet 5 mg PO Q6H PRN pain 3 days #12 Unknown Rx tabs Allergy/AdvReac Type Severity Reaction Status Date / Time acetaminophen AdvReac Intermediate LIVER Verified 02/07/25 21:33 ISSUES ibu (more content not included)... Normal [facility] Epithelial cells.squamous LM Ql (Urine sed)Ordered By: Gretchen Gómez on 10-23-2024 Epithelial cells.squamous LM.HPF (Urine sed) [#/Area] 5 /[HPF] 5-10 [facility] Ferritin measurementOrdered By: Gretchen Gómez on 10-23-2024 Ferritin [Mass/Vol] 5 ng/mL Low 8-252 [facility] Comment on above: Performed By: #### L 503.6075, L503.6550 #### [facility] [address] [place], [place], [address] Glucose Ql (U)Ordered By: Ricarda Gómez on 10-23-2024 Urine Glucose (UA) Normal mg/dl Normal [facility] H AND P Exam - [facility] 10-23-2024 H&P Exam - Hospitalist [facility] Medical Records Department [address] [place] [address] H P Exam - Hospitalist 10/23/24 1736 MR#: [id number] Acct: [id number] Name: DOMINIC JIMENEZ Rep #: [id number] : 1970 54 From: Rosana Pizano MD PCP: TAMARA LANDERS Status:REG ER Location: ED HPI - General General Date of Admission: 10/23/24 Date of Service: 10/23/24 Chief Complaint: Abnormal labs HPI Narrative DOMINIC JIMENEZ, is a 54-year-old female with a history of alcoholic cirrhosis presently 3 years sober and depression presented [facility] ED 10/23/2024 from her primary care doctor office after outpatient labs showed hemoglobin in the sevens with her baseline around 11. She does take her lactulose and has about 2 bowel movements a day. Denies any overt bleeding. Over the past few months has had some intermittent right upper quadrant abdominal pain had an ultrasound which showed gallbladder sludge. In the ED her hemoglobin was 7.1 with white blood cell count of 2.5 and platelet count of 47. FOBT negative however is felt to be a poor sample. She had been weak and short of breath so given her symptomatic anemia the patient was transfused 2 units packed red blood cells and hospitalist contacted for admission. Patient evaluated at bedside, she had routine lab work through her primary care physician's office back on October 10 and was told to come to the ED for bleeding workup however given ride difficulties she was not able to come in until today. She reports that she has had some intermittent right upper quadrant pain and follows with a GI DrViv Mays at [facility] and they do not think it is her gallbladder. Additionally intermittently gets some nausea and poor p.o. Patient does have regular bowel movements given her lactulose. No fevers, has not noted bleeding from her GI tract. Did have a period for the first time in 8 years several months ago and then had light bleeding more recently that resolved. Patient reports she has been through menopause and had not had bleeding for years up until several months ago. 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 Patient does report increasing shortness of breath over the past couple of months to the point is difficulty even go up stairs and has been very fatigued and increasingly pale. No significant or productive cough or fevers [facility] Medical History Rash History of ulceration Chronic pain Non-smoker Neuropathy Wears glasses Post-menopausal Anxiety Alcohol use Anemia Migraine headache Syncope Gastric reflux Non-smoker History of pain when walking Leg cramps History of edema Cardiology follow-up encounter History of Clostridium difficile infection Splenomegaly Abnormal liver function test Cirrhosis of liver Wernickes encephalopathy Alcoholic hepatitis Home Medications ???Medication ???Instructions ???Recorded ???Last Taken ???Type cholecalciferol (vitamin D3) 125 125 mcg PO DAILY 04/04/22 Unknown History mcg (5,000 unit) tablet (Vitamin D3) folic acid 1 mg tablet 1 mg PO DAILY 04/04/22 Unknown History multivitamin 1 cap PO DAILY 04/04/22 Unknown History thiamine HCl (vitamin B1) 100 mg 100 mg PO DAILY 04/04/22 Unknown History tablet (Vitamin B-1) trazodone 50 mg tablet 100 mg PO QHS SLEEP 04/04/22 Unknown History nadolol 20 mg tablet 20 mg PO DAILY #30 tabs 03/11/23 Unknown Rx pantoprazole 40 mg tablet,delayed 40 mg PO DAILY #90 tabs 03/11/23 Unknown Rx release ginkgo biloba 60 mg capsule 60 mg PO DAILY 05/08/23 Unknown History glucosamine 500 1 cap PO DAILY 05/08/23 Unknown History qx-chqorfywa-rqtgpxrb comp 400 mg-D3 667 unit-C-Mn cap (Glucosamine-Chondroitin- D3(C-manganese)) magnesium 250 mg tablet 250 mg PO DAILY 05/08/23 Unknown History milk thistle 175 mg capsule 175 mg PO DAILY 05/08/23 Unknown History progesterone micronized 100 mg 500 mg PO QHS 05/08/23 Unknown History capsule famotidine 40 mg tablet 40 mg PO QHS #90 tabs 06/11/23 Unknown Rx duloxetine 60 mg capsule,delayed 60 mg PO BID 07/07/23 Unknown History release lactulose 10 gram/15 mL (15 mL) 15 ml PO TID PRN ammonia 07/07/23 Unknown History oral solution citalopram 20 mg tablet 20 mg PO DAILY 07/10/24 Unknown History estradiol 0.01% (0.1 mg/gram) 1 vaginal 07/10/24 Unknown History vaginal cream gabapentin 300 mg capsule 600 mg PO Q12H 07/10/24 Unknown History hydroxyzine pamoate 25 mg capsule 25 mg PO Q12H PRN PRN anxiety 07/10/24 Unknown History methocarbamol 500 mg tablet 500 mg PO TID 07/10/24 Unknown History vibegron 75 mg tablet (Gemtesa) 75 mg PO DAILY 07/10/24 Unknown History cefdinir 300 mg capsule 300 mg PO Q12H #14 caps 07/12/24 Unknown Rx ascorbic acid (vitamin C) 500 mg 500 mg PO DAILY 10/23/24 Unknow (more content not included)... Normal [facility] normalized rat io (INR) calculationOrdered By: Gretchen Gómez on 10-23-2024 INR Coag (Bld) [Relative time] 1.2 {INR} [facility] Iron Binding Capacity,Totalo n 10-23-2024 TIBC 480 ug/dL High 250-450 [facility] Comment on above: Result Comment: Mode rate Hemolysis, Result may be falsely increased. Performed By: #### L 503.6075, L503.6550 #### [facility] [address] [place], [place], [address] Iron measurement (mass/mass) Ordered By: Rosana Pizano on 10-23-2024 Iron [Mass/Vol] 78 ug/dL Normal 50-170 [facility] Comment on above: Moderate Hemolysis, Result may be falsely increased. Order Comment: Add o nto previous labs if possible Result Comment: Mode rate Hemolysis, Result may be falsely increased. Performed By: #### L 503.6150, L100.9950 #### [facility] [address] [place], [place], [id number] Ketones Test strip Ql (U)Ord ered By: Gretchen Gómez on 10-23-2024 Ketones Ql (U) Negative Negative [facility] Lower GI hemoglobin IA Ql (S tl)Ordered By: Rosana Pizano on 10-23-2024 Stool Occult Blood (GERARDO) Positive Abnormal [facility] Lower GI hemoglobin IA Ql (S tl)Ordered By: Gretchen Gómez on 10-23-2024 Stool Occult Blood (GERARDO) [facility] Microscopic analysis of urin e for red blood cells (RBC)Ordered By: Gretchen Gómez on 10-23-2024 Urine RBC 0 SEEN /hpf 0-5 [facility] Mucus LM Ql (Urine sed)Order ed By: Gretchen Gómez on 10-23-2024 Mucus Ql (Urine sed) 0 SEEN /hpf [facility] Nitrite Test strip Ql (U)Ord ered By: Gretchen Gómez on 10-23-2024 Nitrite Ql (U) Negative Negative [facility] Platelets LM Ql (Bld)Ordered By: Gretchen Gómez on 10-23-2024 Platelet Estimate MKD DEC ADEQ [facility] Protein Test strip Ql (U)Ord ered By: Gretchen Gómez on 10-23-2024 Protein Ql (U) Negative Negative [facility] Prothrombin Time w/INRon INR Coag (PPP) [Relative time] 1.2 {INR} Normal [facility] Comment on above: Performed By: #### L 300.3900 #### [facility] [address] [place], [address] Prothrombin timeOrdered By: Gretchen Gómez on 10-23-2024 PT Coag (PPP) [Time] 15.4 s High 11.7-14.9 [facility] Comment on above: Performed By: #### L 300.3900 #### [facility] [address] [place], [address] Stool Occult Blood iFOBon STOB Positive Normal [facility] Comment on above: Performed By: #### L 503.6075, L503.6550 #### [facility] [address] [place], [address] STOB Negative Normal [facility] Comment on above: Performed By: #### L 503.6150, L100.9950 #### [facility] [address] [place], [address] TIBCOrdered By: Gretchen martell on 10-23-2024 Total Iron Binding Capacity 480 ug/dL High 250-450 [facility] Comment on above: Moderate Hemolysis, Result may be falsely increased. Type AND Screenon 10-23-2024 Ab SCREEN GEL Negative Normal [facility] Comment on above: Order Comment: Comme nts: Add onto previous labs if possible Performed By: #### L 503.6150, L100.9950 #### [facility] [address] [place], [address] Urinalysis, Completeon 10-23 BACTERIA 1+ /hpf Normal None Seen [facility] Comment on above: Order Comment: COLLE CTOR TO SPECIFY Performed By: #### L 400.0001 #### [facility] [address] [place], [address] EPI,SQUAMOUS 5-10 SEEN Normal 5-10 [facility] Comment on above: Order Comment: COLLE CTOR TO SPECIFY Performed By: #### L 400.0001 #### [facility] [address] [place], [address] WBC 0-5 SEEN Normal 0-5 [facility] Comment on above: Order Comment: COLLE CTOR TO SPECIFY Performed By: #### L 400.0001 #### [facility] [address] [place], [address] BILIRUBIN URINE Negative Normal Negative [facility] Comment on above: Order Comment: COLLE CTOR TO SPECIFY Performed By: #### L 400.0001 #### [facility] [address] [place], [address] Clarity (U) Clear Normal Clear [facility] Comment on above: Order Comment: AMOS CTOR TO SPECIFY Performed By: #### L 400.0001 #### [facility] [address] [place], [address] Color (U) Yellow Normal Yellow [facility] Comment on above: Order Comment: COLLE CTOR TO SPECIFY Performed By: #### L 400.0001 #### [facility] [address] [place], [address] GLUCOSE, UR Normal Normal Normal [facility] Comment on above: Order Comment: COLLE CTOR TO SPECIFY Performed By: #### L 400.0001 #### [facility] [address] [place], [address] KETONE UR Negative Normal Negative [facility] Comment on above: Order Comment: COLLE CTOR TO SPECIFY Performed By: #### L 400.0001 #### [facility] [address] [place], [address] LEUK ESTERASE Negative Normal Negative [facility] Comment on above: Order Comment: AMOS CTOR TO SPECIFY Performed By: #### L 400.0001 #### [facility] [address] [place], [address] Nitrite Ql (U) Negative Normal Negative [facility] Comment on above: Order Comment: AMOS CTOR TO SPECIFY Performed By: #### L 400.0001 #### [facility] [address] [place], [address] OCCULT BLOOD-UR Negative Normal Negative [facility] Comment on above: Order Comment: AMOS CTOR TO SPECIFY Performed By: #### L 400.0001 #### [facility] [address] [place], [address] pH UR 6.5 Normal 5.0 - 8.0 [facility] Comment on above: Order Comment: AMOS CTOR TO SPECIFY Performed By: #### L 400.0001 #### [facility] [address] [place], [address] PROT DIPSTX Negative Normal Negative [facility] Comment on above: Order Comment: AMOS CTOR TO SPECIFY Performed By: #### L 400.0001 #### [facility] [address] [place], [address] SP.GR. DIPSTX 1.010 Normal 1.002-1.030 [facility] Comment on above: Order Comment: AMOS CTOR TO SPECIFY Performed By: #### L 400.0001 #### [facility] [address] [place], [address] UROBILI Normal Normal Normal [facility] Comment on above: Order Comment: AMOS CTOR TO SPECIFY Performed By: #### L 400.0001 #### [facility] [address] [place], [address] Mucus Ql (Urine sed) 0 SEEN Normal [facility] Comment on above: Order Comment: AMOS CTOR TO SPECIFY Performed By: #### L 400.0001 #### [facility] [address] [place], [place], [address] RBC 0 SEEN Normal 0-5 [facility] Comment on above: Order Comment: AMOS CTOR TO SPECIFY Performed By: #### L 400.0001 #### [facility] [address] [place], [place], [address] Urine blood detectionOrdered By: Gretchen Gómez on 10-23-2024 Urine Occult Blood Negative Negative [facility] Urine clarityOrdered By: Karla Gómez on 10-23-2024 Clarity (U) Clear Clear [facility] Urine color determinationOrd ered By: Gretchen Gómez on 10-23-2024 Color (U) Yellow Yellow [facility] Urine leukocyte esterase det ection by dipstickOrdered By: Gretchen Gómez on 10-23-2024 Leukocyte esterase Test strip Ql (U) Negative Negative [facility] Urine pHOrdered By: Gretchen vargas on 10-23-2024 pH (U) 6.5 [pH] 5.0 - 8.0 [facility] Urine sediment bacteria coun t by microscopy (number/high power field)Ordered By: Gretchen Gómez on 10-23-2024 Bacteria LM.HPF (Urine sed) [#/Area] 1 /[HPF] None Seen [facility] Urine specific gravity measu rementOrdered By: Gretchen Gómez on 10-23-2024 Specific gravity (U) [Rel density] 1.010 1.002-1.030 [facility] Urobilinogen Ql (U)Ordered B y: Gretchen Gómez on 10-23-2024 Urine Urobilinogen Normal mg/dl Normal [facility] White blood cell countOrdere d By: Gretchen Gómez on 10-23-2024 Urine WBC 0-5 SEEN /hpf 0-5 [facility] 25(OH)D3 SerPl-mCtomion 2023 25-hydroxyvitamin D3 [Mass/Vol] 88.5 ng/mL Normal 30.0-100.0 [facility] Comment on above: Order Comment: Speci men Type: BLOOD SPECIMEN Ordering Facility: [facility] Address: [address] [place] [address] Result Comment: Defi ciency\X09\Less than 20 ng/mL Insufficiency\X09\20 - Less than 30 ng/mL Sufficiency\X09\30 - 100 ng/mL Performed By: #### 2 839-9, 2986-8 #### [facility] CLIA [id number] [address] [place], [place] [address] [facility] [place] CBC panel Auto (Bld)on 10-10 Erythrocyte distribution width (RBC) [Ratio] 16.2 % High 11.5-15.0 [facility] Comment on above: Order Comment: Speci men Type: BLOOD SPECIMEN Ordering Facility: [facility] Address: [address] [place] [address] Performed By: #### 2 839-9, 2986-8 #### [facility] CLIA [id number] [address] [place] [address] [place] Hematocrit (Bld) [Volume fraction] 27.2 % Low 36.0-46.0 [facility] Comment on above: Order Comment: Speci men Type: BLOOD SPECIMEN Ordering Facility: [facility] Address: [facility] [place] [address] Performed By: #### 2 839-9, 2986-8 #### [facility] CLIA [id number] [address] [place], [place] [address] [facility] [place] Hemoglobin (Bld) [Mass/Vol] 7.7 g/dL Low 11.5-15.5 [facility] Comment on above: Order Comment: Speci men Type: BLOOD SPECIMEN Ordering Facility: [facility] Address: [address] [place] [address] Performed By: #### 2 839-9, 2986-8 #### [facility] CLIA [id number] [address] MCH (RBC) [Entitic mass] 23.6 pg Low 26.0-34.0 [facility] Comment on above: Order Comment: Speci men Type: BLOOD SPECIMEN Ordering Facility: [facility] Address: [facility] [place] [address] Performed By: #### 2 839-9, 298-8 #### [facility] CLIA [id number] [address] [place] [address] MCHC (RBC) [Mass/Vol] 28.3 g/dL Low 30.5-36.0 [facility] Comment on above: Order Comment: Speci men Type: BLOOD SPECIMEN Ordering Facility: [facility] Address: [facility] [place] [address] Performed By: #### 2 839-9, 298-8 #### [facility] CLIA [id number] [address] [place] [address] OF [facility] MCV (RBC) [Entitic vol] 83.4 fL Normal 80.0-100.0 [facility] Comment on above: Order Comment: Speci men Type: BLOOD SPECIMEN Ordering Facility: [facility] Address: [facility] [place] [address] Performed By: #### 2 839-9, 298-8 #### [facility] CLIA [id number] [address] [place] [address] Nucleated RBC (Bld) [#/Vol] 10*3/uL Normal <0.01 [facility] Comment on above: Order Comment: Speci men Type: BLOOD SPECIMEN Ordering Facility: [facility] Address: [address] [place] [address] Performed By: #### 2 839-9, 2986-8 #### [facility] CLIA [id number] [address] [place] [address] Platelet mean volume (Bld) [Entitic vol] Normal [facility] Comment on above: Order Comment: Speci men Type: BLOOD SPECIMEN [facility] Address: [facility] [place] [address] Result Comment: Unab le to Report. Performed By: #### 2 839-9, 2986-8 #### [facility] CLIA [id number] [address] [place] [address] [facility] [place] Platelets (Bld) [#/Vol] 61 10*3/uL Low 150-400 [facility] Comment on above: Order Comment: Speci men Type: BLOOD SPECIMEN [facility] Address: [facility] [place] [address] Result Comment: No c lot detected. Performed By: #### 2 839-9, 298-8 #### [facility] CLIA [id number] [address] [place], [place] [address] [facility] RBC (Bld) [#/Vol] 3.26 10*6/uL Low 3.90-5.20 [facility] Comment on above: Order Comment: Speci men Type: BLOOD SPECIMEN Ordering Facility: [facility] Address: [facility] [place] [address] Performed By: #### 2 839-9, 298-8 #### [facility] CLIA [id number] [address] [place], [place] [address] [facility] WBC (Bld) [#/Vol] 3.81 10*3/uL Normal 3.70-11.00 [facility] Comment on above: Order Comment: Speci men Type: BLOOD SPECIMEN Ordering Facility: [facility] Address: [address] [place] [address] Performed By: #### 2 839-9, 2986-8 #### [facility] CLIA [id number] [address] [place] [address] [facility] Comprehensive metabolic 2000 panelon 10-10-2024 Albumin [Mass/Vol] 3.2 g/dL Normal 3.2-5.0 [facility] Comment on above: Order Comment: Speci men Type: BLOOD SPECIMEN Ordering Facility: [facility] Address: [facility] [place] [address] Performed By: #### 2 839-9, 298-8 #### [facility] CLIA [id number] [address] [place] [address] [place] ALP [Catalytic activity/Vol] 61 U/L Normal 45-117 [facility] Comment on above: Order Comment: Speci men Type: BLOOD SPECIMEN [facility] Address: [facility] [place] [address] Performed By: #### 2 839-9, 8 #### [facility] CLIA [id number] [address] [place], [place] [address] [place] OF [facility] ALT [Catalytic activity/Vol] 19 U/L Normal 13-61 [facility] Comment on above: Order Comment: Speci men Type: BLOOD SPECIMEN Ordering Facility: [facility] Address: [facility] [place] [address] Result Comment: Resu lts may be falsely depressed after the administration of Sulfasalazine and/or Sulfapyridine. Performed By: #### 2 839-9, 2985-8 #### [facility] CLIA [id number] [address] [place], [place] [address] [place] OF [facility] Anion gap [Moles/Vol] 11 mmol/L Normal 5-16 [facility] Comment on above: Order Comment: Speci men Type: BLOOD SPECIMEN Ordering Facility: [facility] Address: [facility] [place] [address] Performed By: #### 2 839-9, 298-8 #### [facility] CLIA [id number] [address] [place], [place] [address] [place] [facility] AST [Catalytic activity/Vol] 27 U/L Normal 8-34 [facility] Comment on above: Order Comment: Speci men Type: BLOOD SPECIMEN [facility] Address: [address] [place] [address] Result Comment: Resu lts may be falsely depressed after the administration of Sulfasalazine and/or Sulfapyridine. Performed By: #### 2 839-9, 2986-8 #### [facility] CLIA [id number] [address] [place] [address] [place] Bilirubin [Mass/Vol] 1.1 mg/dL High 0.2-1.0 [facility] Comment on above: Order Comment: Speci men Type: BLOOD SPECIMEN Ordering Facility: [facility] Address: [address] [place] [address] Performed By: #### 2 839-9, 298-8 #### [facility] CLIA [id number] [address] [place] [address] [place] Calcium [Mass/Vol] 9.0 mg/dL Normal 8.5-10.5 [facility] Comment on above: Order Comment: Speci men Type: BLOOD SPECIMEN Ordering Facility: [facility] Address: [address] [place] [address] Performed By: #### 2 839-9, 298-8 #### [facility] CLIA [id number] [address] [place], [place] [address] [place] Chloride [Moles/Vol] 108 mmol/L High 98-107 [facility] Comment on above: Order Comment: Speci men Type: BLOOD SPECIMEN [facility] Address: [address] [place] [address] Performed By: #### 2 839-9, 2986-8 #### [facility] CLIA [id number] [address] [place], [place] [address] [place] CO2 [Moles/Vol] 20 mmol/L Low 21-32 [facility] Comment on above: Order Comment: Speci brianna Type: BLOOD SPECIMEN Ordering Facility: [facility] Address: [address] [place] [address] Performed By: #### 2 839-9, 2985-8 #### [facility] CLIA [id number] [address] [place] [address] [place] Creatinine [Mass/Vol] 0.70 mg/dL Normal 0.51-0.95 [facility] Comment on above: Order Comment: Speci men Type: BLOOD SPECIMEN Ordering Facility: [facility] Address: [facility] [place] [address] Result Comment: Aretha ents receiving either N-Acetylcysteine (NAC) or Metamizole prior to venipuncture, may have falsely depressed results. Performed By: #### 2 839-9, 2985-8 #### [facility] CLIA [id number] [address] [place] [address] Creatinine and Glomerular filtration rate.predicted panel (S/P/Bld) 103 mL/min/1.73m??? Normal >=60 [facility] Comment on above: Order Comment: Jacquie reed Type: BLOOD SPECIMEN Ordering Facility: [facility] Address: [address] [place] [address] Result Comment: Perri mated Glomerular Filtration Rate (eGFR) is calculated using the 2020 CKD-EPI creatinine equation. This equation utilizes serum creatinine, sex, and age as parameters. The creatinine assay has traceable calibration to isotope dilution-mass spectrometry. Refer to KDIGO guidelines for clinical interpretation. In patients with unstable renal function, e.g. those with acute kidney injury, the eGFR may not accurately reflect actual GFR. Performed By: #### 2 839-9, 298-8 #### [facility] CLIA [id number] [address] [place], [place] [address] [place] Glucose [Mass/Vol] 120 mg/dL High 70-100 [facility] Comment on above: Order Comment: Speci men Type: BLOOD SPECIMEN Ordering Facility: [facility] Address: [address] [place] [address] Result Comment: The [place] Diabetes [employer] (ADA) provides guidance for cutoff values for fasting glucose and random glucose. The ADA defines fasting as no caloric intake for at least 8 hours. Fasting plasma glucose results between 100 to 125 mg/dL indicate increased risk for diabetes (prediabetes). Fasting plasma glucose results greater than or equal to 126 mg/dL meet the criteria for diagnosis of diabetes. In the absence of unequivocal hyperglycemia, results should be confirmed by repeat testing. In a patient with classic symptoms of hyperglycemia or hyperglycemic crisis, random plasma glucose results greater than or equal to 200 mg/dL meet the criteria for diagnosis of diabetes. Reference: Standards of Medical Care in Diabetes 2016, [place] [employer]. Diabetes Care. 2016.39(Suppl 1). Results may be falsely elevated after the administration of Sulfapyridine. Results may be falsely depressed after the administration of Sulfasalazine. Performed By: #### 2 839-9, 2986-8 #### [facility] CLIA [id number] [address] [place] [address] [place] Potassium [Moles/Vol] 4.2 mmol/L Normal 3.5-5.1 [facility] Comment on above: Order Comment: Speci men Type: BLOOD SPECIMEN Ordering Facility: [facility] Address: [address] [place] [address] Performed By: #### 2 839-9, 2986-8 #### [facility] CLIA [id number] [address] [place], [place] [address] [place] Protein [Mass/Vol] 7.2 g/dL Normal 6.0-8.5 [facility] Comment on above: Order Comment: Speci men Type: BLOOD SPECIMEN Ordering Facility: [facility] Address: [address] [place] [address] Performed By: #### 2 839-9, 2986-8 #### [facility] CLIA [id number] [address] [place], [place] [address] [place] Sodium [Moles/Vol] 139 mmol/L Normal 136-145 [facility] Comment on above: Order Comment: Speci men Type: BLOOD SPECIMEN Ordering Facility: [facility] Address: [address] [place] [address] Performed By: #### 2 839-9, 298-8 #### [facility] CLIA [id number] [address] [place], [place] [address] [place] Urea nitrogen [Mass/Vol] 10 mg/dL Normal 7- [facility] Comment on above: Order Comment: Speci men Type: BLOOD SPECIMEN Ordering Facility: [facility] Address: [facility] [place] [address] Performed By: #### 2 839-9, 2988 #### [facility] CLIA [id number] [address] [place], [place] [address] [facility] OF [place] HbA1c (Bld)on 10-10-2024 Average glucose Estimated from glycated hemoglobin (Bld) [Mass/Vol] 117 mg/dL Normal [facility] Comment on above: Order Comment: Speci men Type: BLOOD SPECIMEN Ordering Facility: [facility] Address: [facility] [place] [address] Result Comment: eAG: (Estimated average glucose) is a calculated value from HgbA1c and is workforce services representative of the average blood glucose level in the last 2-3 month period. Performed By: #### 2 839-9, 8 #### [facility] CLIA [id number] [address] [place] [address] [place] HbA1c (Bld) [Mass fraction] 5.7 % High 4.3-5.6 [facility] Comment on above: Order Comment: Danieli men Type: BLOOD SPECIMEN Ordering Facility: [facility] Address: [address] [place] [address] Result Comment: Amer ican Diabetes Association guidelines indicate that patients with HgbA1c in the range 5.7-6.4% are at increased risk for development of diabetes, and intervention by lifestyle modification may be beneficial. HgbA1c greater or equal to 6.5% is considered diagnostic of diabetes. Performed By: #### 2 839-9, 2985-8 #### [facility] CLIA [id number] [address] [place], [place] [address] [facility] Lipid 1996 panelon 4 Cholesterol [Mass/Vol] 162 mg/dL Normal 0-199 [facility] Comment on above: Order Comment: Speci men Type: BLOOD SPECIMEN Ordering Facility: [facility] Address: [address] [place] [address] Result Comment: <200 mg/dL, Desirable 200-239 mg/dL, Borderline high >239 mg/dL, High Performed By: #### 2 839-9, 8 #### [facility] CLIA [id number] [address] [place] [address] OF [facility] Cholesterol in HDL [Mass/Vol] 30 mg/dL Low >40 [facility] Comment on above: Order Comment: Speci [facility] Type: BLOOD SPECIMEN Ordering Facility: [facility] Address: [address] [place] [address] Result Comment: 40-5 9 mg/dL, Acceptable >59 mg/dL, High: Negative risk factor for coronary heart disease <40 mg/dL, Low: Positive risk factor for coronary heart disease Performed By: #### 2 839-9, 2986-06 #### [facility] CLIA [id number] [address] [place] [address] Cholesterol in LDL [Mass/Vol] 103 mg/dL Normal 0-129 [facility] Comment on above: [facility]: BLOOD SPECIMEN Ordering Facility: [facility] Address: [address] [place] [address] Result Comment: <100 mg/dL, Optimal 100-129 mg/dL, Near optimal/above optimal 130-159 mg/dL, Borderline high 160-189 mg/dL, High >189 mg/dL, Very high Secondary prevention optimal LDL Cholesterol levels are recommended to be < 70 mg/dL Performed By: #### 2 839-9, 298-8 #### [facility] CLIA [id number] [address] [place], [place] [address] [facility] Cholesterol in LDL/Cholesterol in HDL [Mass ratio] 3.43 {ratio} High <2.54 [facility] Comment on above: Order Comment: Speci men Type: BLOOD SPECIMEN Ordering Facility: [facility] Address: [address] [place] [address] Result Comment: Refe rence: 1. National Cholesterol Education Program ATP III Guideline At-A-Glance Quick Desk Reference: National Heart, Lung, and Blood Cropsey. National Institutes of Health. 2001: NIH Publication No. 01-3305. 2. An International Atherosclerosis Society position paper: global recommendations for the management of dyslipidemia: executive summary, Atherosclerosis. 2014: 232(2):410-413. Performed By: #### 2 839-9, 2985-8 #### [facility] CLIA [id number] [address] [place] [address] Cholesterol in VLDL [Mass/Vol] 29 mg/dL Normal <30 [facility] Comment on above: Order Comment: Danieli men Type: BLOOD SPECIMEN Ordering Facility: [facility] Address: [address] [place], [place] [address] [place] [address] Performed By: #### 2 839-9, 298-8 #### [facility] CLIA [id number] [address] [place] [address] [place] Cholesterol non HDL [Mass/Vol] 132 mg/dL High <130 [facility] Comment on above: Order Comment: Speci men Type: BLOOD SPECIMEN Ordering Facility: [facility] Address: [address] [place] [address] Result Comment: <130 mg/dL, Optimal 130-159 mg/dL, Near optimal/above optimal 160-189 mg/dL, Borderline high 190-219 mg/dL, High >219 mg/dL, Very high Secondary prevention optimal non HDL Cholesterol levels are recommended to be <100 mg/dL Performed By: #### 2 839-9, 2986-8 #### [facility] CLIA [id number] [address] [place] [address] Cholesterol.total/Cho lesterol in HDL [Mass ratio] 5.40 {ratio} High <5.10 [facility] Comment on above: Order Comment: Speci men Type: BLOOD SPECIMEN Ordering Facility: [facility] Address: [address] [place] [address] Performed By: #### 2 839-9, 2985-8 #### [facility] CLIA [id number] [address] [place] [address] FASTING TIME 12 hrs Normal [facility] Comment on above: Order Comment: Speci men Type: BLOOD SPECIMEN Ordering Facility: [facility] Address: [address] [place] [address] Performed By: #### 2 839-9, 8 #### [facility] CLIA [id number] [address] [place] [address] Triglyceride [Mass/Vol] 144 mg/dL Normal 30-149 [facility] Comment on above: Order Comment: Speci men Type: BLOOD SPECIMEN Ordering Facility: [facility] Address: [address] [place] [address] Result Comment: <150 mg/dL, Normal 150-199 mg/dL, Borderline high 200-499 mg/dL, High >499 mg/dL, Very high Patients receiving either N-Acetylcysteine (NAC) or Metamizole prior to venipuncture, may have falsely depressed results. Performed By: #### 2 839-9, 298-8 #### [facility] CLIA [id number] [address] [place] [address] PT panel Coag (PPP)on 2023 INR Coag (PPP) [Relative time] 1.2 {INR} Normal 0.8-1.2 [facility] Comment on above: Order Comment: Jacquie reed Type: BLOOD SPECIMEN Ordering Facility: [facility] Address: [address] [place] [address] Result Comment: Ramonita min K Antagonist (VKA) Therapeutic Range: INR 2 to 3 (Target INR of 2.5) Note: For patients treated with VKA drugs, such as warfarin, the [place] [employer] 2012 Guideline recommends a therapeutic INR range of 2 to 3 (target INR of 2.5). This recommendation includes high-risk patients with antiphospholipid syndrome with previous arterial or venous thromboembolism, current-generation mechanical or bioprosthetic aortic heart valve replacement. Note: Patients with mechanical aortic valve replacement and additional risk factors for thromboembolic events (atrial fibrillation, previous thromboembolism, LV dysfunction, hypercoagulable conditions) or an older generation mechanical AVR (i.e., ball in-Cage) or any mechanical MVR should have a INR therapeutic range of 2.5 to 3.5 (target INR of 3). Jerome GH, et al. Chest 2012, 141:7S-47S Evans RA, et al. [facility] 2017, 70: 252-289 Performed By: #### 2 839-9, 2986-8 #### [facility] CLIA [id number] [address] [place] [address] [place] PT Coag (PPP) [Time] 14.0 s Normal 10.1-15.1 [facility] Comment on above: Order Comment: Jacquie brianna Type: BLOOD SPECIMEN Ordering Facility: [facility] Address: [address] [place], [place] [address] [place] [address] Performed By: #### 2 839-9, 2986-8 #### [facility] CLIA [id number] [address] [place], [place] [address] [place] Protein Electro.Ur-Randomon 08-13-2024 M-SPIKE,U Normal [facility] Comment on above: Order Comment: PT ON LY WANTED URINE Result Comment: NOT OSBERVED Performed By: #### L 3600.4000 #### [facility] [address] [place], [place], [id number] Ammoniaon 08-10-2024 Ammonia (P) [Moles/Vol] 42.0 umol/L High 11-32 [facility] Comment on above: Performed By: #### L 503.6075, L503.6550 #### [facility] [address] [place], [place], [id number] [facility] COMP METAB 2000 PNL SERP Alex 08-08-2024 Albumin [Mass/Vol] 3.5 g/dL 3.2 - 5.0 g/dL [facility] ALP [Catalytic activity/Vol] 67 U/L 45 - 117 U/L [facility] ALT [Catalytic activity/Vol] 16 U/L 13 - 61 U/L [facility] Comment on above: Results may be false ly depressed after the administration of Sulfasalazine and/or Sulfapyridine. Anion gap [Moles/Vol] 10 mmol/L 5 - 16 mmol/L [facility] Calcium [Mass/Vol] 9.3 mg/dL 8.5 - 10. 5 mg/dL [facility] AST SERPL-CCNC 25 U/L 8 - 34 U/L [facility] Comment on above: Results may be false ly depressed after the administration of Sulfasalazine and/or Sulfapyridine. [facility] BILIRUB SERPL-MCNC 0.7 mg/dL 0.2 - 1.0 mg/dL [facility] PROT SERPL-MCNC 7.0 g/dL 6.0 - 8. 5 g/dL [facility] Chloride [Moles/Vol] 108 mmol/L High 98 - 10 7 mmol/L [facility] CO2 [Moles/Vol] 20 mmol/L Low 21 - 32 mmol/L [facility] Creatinine [Mass/Vol] 0.74 mg/dL 0.51 - 0.95 mg/dL [facility] Comment on above: Patients receiving e ither N-Acetylcysteine (NAC) or Metamizole prior to venipuncture, may have falsely depressed results. GFR/1.73 sq M.predicted CKD-EPI (S/P/Bld) [Vol rate/Area] 96 - PINF [facility] Comment on above: Estimated Glomerular Filtration Rate (eGFR) is calculated using the 2020 CKD-EPI creatinine equation. This equation utilizes serum creatinine, sex, and age as parameters. The creatinine assay has traceable calibration to isotope dilution-mass spectrometry. Refer to KDIGO guidelines for clinical interpretation. In patients with unstable renal function, e.g. those with acute kidney injury, the eGFR may not accurately reflect actual GFR. Glucose [Mass/Vol] 149 mg/dL High 70 - 100 mg/dL [facility] Comment on above: The [place] Diabete s Association (ADA) provides guidance for cutoff values for fasting glucose and random glucose. The ADA defines fasting as no caloric intake for at least 8 hours. Fasting plasma glucose results between 100 to 125 mg/dL indicate increased risk for diabetes (prediabetes). Fasting plasma glucose results greater than or equal to 126 mg/dL meet the criteria for diagnosis of diabetes. In the absence of unequivocal hyperglycemia, results should be confirmed by repeat testing. In a patient with classic symptoms of hyperglycemia or hyperglycemic crisis, random plasma glucose results greater than or equal to 200 mg/dL meet the criteria for diagnosis of diabetes. Reference: Standards of Medical Care in Diabetes 2016, [place] Diabetes Association. Diabetes Care. 2016.39(Suppl 1). Results may be falsely elevated after the administration of Sulfapyridine. Results may be falsely depressed after the administration of Sulfasalazine. Potassium [Moles/Vol] 3.9 mmol/L 3.5 - 5.1 mmol/L [facility] Sodium [Moles/Vol] 138 mmol/L 136 - 145 mmol/L [facility] Urea nitrogen [Mass/Vol] 13 mg/dL 7 - 26 mg/dL [facility] CRP SERPL-MCNCon 024 [facility] CRP SERPL-MCNC 0.8 mg/dL NINF - 1. 0 mg/dL [facility] VIT B12 [facility]-NCon Cobalamin (Vitamin B12) [Mass/Vol] 1106 pg/mL High 193 - 986 pg/mL [facility] CRP SerPl-mCncon 08-08-2024 CRP [Mass/Vol] 0.8 mg/dL Normal <1.0 [facility] Comment on above: Order Comment: Speci men Type: BLOOD SPECIMEN [facility] Address: [address] [place] [address], [place] [address] Performed By: #### 2 839-9, 2986-8 #### [facility] CLIA [id number] [address] [place] [address] [facility] OF [place] Comprehensive metabolic 2000 panelon 08-08-2024 Albumin [Mass/Vol] 3.5 g/dL Normal 3.2-5.0 [facility] Comment on above: Order Comment: Speci men Type: BLOOD SPECIMEN Ordering Facility: [facility] Address: [address] [place] [address] Performed By: #### 2 839-9, 2986-8 #### [facility] CLIA [id number] [address] [place], [place] [address] [place] [facility] ALP [Catalytic activity/Vol] 67 U/L Normal 45-117 [facility] Comment on above: Order Comment: Speci men Type: BLOOD SPECIMEN Ordering Facility: [facility] Address: [address] [place] [address] Performed By: #### 2 839-9, 2986-8 #### [facility] CLIA [id number] [address] [place], [place] [address] [place] [facility] ALT [Catalytic activity/Vol] 16 U/L Normal 13-61 [facility] Comment on above: Order Comment: Speci men Type: BLOOD SPECIMEN Ordering Facility: [facility] Address: [address] [place] [address] Result Comment: Resu lts may be falsely depressed after the administration of Sulfasalazine and/or Sulfapyridine. Performed By: #### 2 839-9, 2986-8 #### [facility] CLIA [id number] [address] [place] [address] [place] OF [facility] Anion gap [Moles/Vol] 10 mmol/L Normal 5-16 [facility] Comment on above: Order Comment: Speci men Type: BLOOD SPECIMEN Ordering Facility: [facility] Address: [address] [facility] [place], [place] [address] Performed By: #### 2 839-9, 2986-8 #### [facility] CLIA [id number] [address] [place], [place] [address] [place] AST [Catalytic activity/Vol] 25 U/L Normal 8-34 [facility] Comment on above: Order Comment: Speci men Type: BLOOD SPECIMEN [facility] Address: [address] [facility] [address], [place] [address] Result Comment: Resu lts may be falsely depressed after the administration of Sulfasalazine and/or Sulfapyridine. Performed By: #### 2 839-9, 298-8 #### [facility] CLIA [id number] [address] [place] [address] [place] Bilirubin [Mass/Vol] 0.7 mg/dL Normal 0.2-1.0 [facility] Comment on above: Order Comment: Speci men Type: BLOOD SPECIMEN Ordering Facility: [facility] Address: [address] [facility], [place] [address] Performed By: #### 2 839-9, 298-8 #### [facility] CLIA [id number] [address] [place], [place] [address] [place] Calcium [Mass/Vol] 9.3 mg/dL Normal 8.5-10.5 [facility] Comment on above: Order Comment: Speci men Type: BLOOD SPECIMEN Ordering Facility: [facility] Address: [address] [facility] [place] [address] Performed By: #### 2 839-9, 2986-8 #### [facility] CLIA [id number] [address] [place], [place] [address] [place] Chloride [Moles/Vol] 108 mmol/L High 98-107 [facility] Comment on above: Order Comment: Speci men Type: BLOOD SPECIMEN Ordering Facility: [facility] Address: [address] [facility] [place] [address] Performed By: #### 2 839-9, 2986-06 #### [facility] CLIA [id number] [address] [place], [place] [address] [place] CO2 [Moles/Vol] 20 mmol/L Low 21-32 [facility] Comment on above: Order Comment: Speci men Type: BLOOD SPECIMEN Ordering Facility: [facility] Address: [address] [place] [address] Performed By: #### 2 839-9, 2986-06 #### [facility] CLIA [id number] [address] [place] [address] [place] Creatinine [Mass/Vol] 0.74 mg/dL Normal 0.51-0.95 [facility] Comment on above: Order Comment: Speci men Type: BLOOD SPECIMEN Ordering Facility: [facility] Address: [address] [place] [address] Result Comment: Aretha ents receiving either N-Acetylcysteine (NAC) or Metamizole prior to venipuncture, may have falsely depressed results. Performed By: #### 2 839-9, 2986-06 #### [facility] CLIA [id number] [address] [place] [address] Creatinine and Glomerular filtration rate.predicted panel (S/P/Bld) 96 mL/min/1.73m??? Normal >=60 [facility] Comment on above: Order Comment: Speci men Type: BLOOD SPECIMEN Ordering Facility: [facility] Address: [address] [place] [address] Result Comment: Perri mated Glomerular Filtration Rate (eGFR) is calculated using the 2020 CKD-EPI creatinine equation. This equation utilizes serum creatinine, sex, and age as parameters. The creatinine assay has traceable calibration to isotope dilution-mass spectrometry. Refer to KDIGO guidelines for clinical interpretation. In patients with unstable renal function, e.g. those with acute kidney injury, the eGFR may not accurately reflect actual GFR. Performed By: #### 2 839-9, 2986-06 #### [facility] CLIA [id number] [address] [place] [address] [place] Glucose [Mass/Vol] 149 mg/dL High 70-100 [facility] Comment on above: Order Comment: Speci men Type: BLOOD SPECIMEN Ordering Facility: [facility] Address: [facility] [place] [address] Result Comment: The [place] Diabetes Association (ADA) provides guidance for cutoff values for fasting glucose and random glucose. The ADA defines fasting as no caloric intake for at least 8 hours. Fasting plasma glucose results between 100 to 125 mg/dL indicate increased risk for diabetes (prediabetes). Fasting plasma glucose results greater than or equal to 126 mg/dL meet the criteria for diagnosis of diabetes. In the absence of unequivocal hyperglycemia, results should be confirmed by repeat testing. In a patient with classic symptoms of hyperglycemia or hyperglycemic crisis, random plasma glucose results greater than or equal to 200 mg/dL meet the criteria for diagnosis of diabetes. Reference: Standards of Medical Care in Diabetes 2016, [place] Diabetes Association. Diabetes Care. 2016.39(Suppl 1). Results may be falsely elevated after the administration of Sulfapyridine. Results may be falsely depressed after the administration of Sulfasalazine. Performed By: #### 2 839-9, 2986-8 #### [facility] CLIA [id number] [address] [place] [address] [place] Potassium [Moles/Vol] 3.9 mmol/L Normal 3.5-5.1 [facility] Comment on above: Order Comment: Speci men Type: BLOOD SPECIMEN Ordering Facility: [facility] Address: [facility] [place] [address] Performed By: #### 2 839-9, 2986-8 #### [facility] CLIA [id number] [address] [place], [place] [address] [place] Protein [Mass/Vol] 7.0 g/dL Normal 6.0-8.5 [facility] Comment on above: Order Comment: Speci men Type: BLOOD SPECIMEN Ordering Facility: [facility] Address: [address] [facility] [place], [place] [address] Performed By: #### 2 839-9, 2986-8 #### [facility] CLIA [id number] [address] [place], [place] [address] [place] [facility] Sodium [Moles/Vol] 138 mmol/L Normal 136-145 [facility] Comment on above: Order Comment: Speci men Type: BLOOD SPECIMEN [facility] Address: [address] [facility], [place] [address] Performed By: #### 2 839-9, 2986-8 #### [facility] CLIA [id number] [address] [place], [place] [address] [facility] OF [place] Urea nitrogen [Mass/Vol] 13 mg/dL Normal 7-26 [facility] Comment on above: Order Comment: Speci men Type: BLOOD SPECIMEN [facility] Address: [address] [place] [address], [place] [address] Performed By: #### 2 839-9, 2986-8 #### [facility] CLIA [id number] [address] [place], [place] [address] [place] ESR Westergren method (Bld) [Velocity]on 08-08-2024 ESR (Bld) [Velocity] 32 mm/h High 0-30 [facility] Comment on above: Order Comment: Speci men Type: BLOOD SPECIMEN [facility] Address: [address] [facility] [place] [address] Performed By: #### 2 839-9, 2986-8 #### [facility] CLIA [id number] [address] [place], [place] [address] [facility] OF [place] HEAVY METALS SCRN BLon 08-08 ARSENIC, BLOOD <10.0 Normal <=12.0 [facility] Comment on above: Order Comment: Speci men Type: BLOOD SPECIMEN [facility] Address: [address] [place] [address], [place] [address] Result Comment: INTE RPRETIVE INFORMATION: Arsenic, Blood Elevated results may be due to skin or collection-related contamination, including the use of a noncertified metal-free collection/transport tube. If contamination concerns exist due to elevated levels of blood arsenic, confirmation with a second specimen collected in a certified metal-free tube is recommended. Potentially toxic ranges for blood arsenic: Greater than or equal to 600 ug/L. Blood arsenic is for the detection of recent exposure poisoning only. Blood arsenic levels in healthy subjects vary considerably with exposure to arsenic in the diet and the environment. A 24-hour urine arsenic is useful for the detection of chronic exposure. This test was developed and its performance characteristics determined by [facility]. It has not been cleared or approved by the [place] Food and Drug Administration. This test was performed in a CLIA certified laboratory and is intended for clinical purposes. Performed By: #### 2 839-9, 2986-8 #### [facility] CLIA [id number] [address] [place] [address] [place] LEAD <2.0 Normal <=4.9 [facility] Comment on above: Order Comment: Speci men Type: BLOOD SPECIMEN Ordering Facility: [facility] Address: [address] [place] [address] Result Comment: INTE RPRETIVE INFORMATION: Lead, Blood (Venous) Analysis performed by Inductively Coupled Plasma-Mass Spectrometry (ICP-MS). Elevated results may be due to skin or collection-related contamination, including the use of a noncertified lead-free tube. If contamination concerns exist due to elevated levels of blood lead, confirmation with a second specimen collected in a certified lead-free tube is recommended. Information sources for blood lead reference intervals and interpretive comments include the CDC's Childhood Lead Poisoning Prevention: Recommended Actions Based on Blood Lead Level and the Adult Blood Lead Epidemiology and Surveillance: Reference Blood Lead Levels (BLLs) for Adults in the [place] Thresholds and time intervals for retesting, medical evaluation, and response vary by state and regulatory body. Contact your State Department of Health and/or applicable regulatory agency for specific guidance on medical management recommendations. This test was developed and its performance characteristics determined by [facility]. It has not been cleared or approved by the U.S. Food and Drug Administration. This test was performed in a CLIA-certified laboratory and is intended for clinical purposes. Group Concentration Comment Children 3.5-19.9 ug/dL Children under the age of 6 years are the most vulnerable to the harmful effects of lead exposure. Environmental investigation and exposure history to identify potential sources of lead. Biological and nutritional monitoring are recommended. Follow-up blood lead monitoring is recommended. 20-44.9 ug/dL Lead hazard reduction and prompt medical evaluation are recommended. Contact a Pediatric Environmental Health Specialty Unit or poison control center for guidance. Greater than Critical. Immediate medical 44.9 ug/dL evaluation, including detailed neurological exam is recommended. Consider chelation therapy when symptoms of lead toxicity are present. Contact a Pediatric [facility] Specialty Unit or poison control center for assistance. Adult 5-19.9 ug/dL Medical removal is recommended for women or those who are trying or may become . Adverse health effects are possible. Reduced lead exposure and increased blood lead monitoring are recommended. 20-69.9 ug/dL Adverse health effects are indicated. Medical removal from lead exposure is required by OSHA if blood lead level exceeds 50 ug/dL. Prompt medical evaluation is recommended. Greater than Critical. Immediate medical 69.9 ug/dL evaluation is recommended. Consider chelation therapy when symptoms of lead toxicity are present. Performed By: #### 2 839-9, 2986-8 #### [facility] CLIA [id number] [address] [place], [place] [id number] [place] MERCURY <2.5 Normal <=10.0 [facility] Comment on above: Order Comment: Speci men Type: BLOOD SPECIMEN Ordering Facility: [facility] Address: [address] [place], [place] [id number] Result Comment: INTE RPRETIVE INFORMATION: Mercury, Blood Elevated results may be due to skin or collection-related contamination, including the use of a noncertified metal-free collection/transport tube. If contamination concerns exist due to elevated levels of blood mercury, confirmation with a second specimen collected in a certified metal-free tube is recommended. Blood mercury levels predominantly reflect recent exposure and are most useful in the diagnosis of acute poisoning as blood mercury concentrations rise sharply and fall quickly over several days after ingestion. Blood concentrations in unexposed individuals rarely exceed 20 ug/L. The provided reference interval relates to inorganic mercury concentrations. Dietary and non-occupational exposure to organic mercury forms may contribute to an elevated total mercury result. Clinical presentation after toxic exposure to organic mercury may include dysarthria, ataxia and constricted vision cowan with mercury blood concentrations from 20 to 50 ug/L. This test was developed and its performance characteristics determined by [facility]. It has not been cleared or approved by the [place] Food and Drug Administration. This test was performed in a CLIA certified laboratory and is intended for clinical purposes. Performed By: [facility] [address] [place] [address] [employer] Sales: Hernando Owusu MD, PhD CLIA Number: [id number] Performed By: #### 2 839-9, 2986-8 #### [facility] CLIA [id number] [address] [place] [address] [place] No Panel Informationon 08-08 Interpretation and review of laboratory results Abnormal [facility] Specimen Type: BLOOD SPECIMEN Ordering Facility: [facility] Address: [address] [place] [address] Original [facility]ing [facility]: [facility] PROTEIN ELECTROPHORESIS SERU M WITH TERRIE (P)on 08-08-2024 Albumin [Mass/Vol] 3.61 g/dL Normal 3.43-5.41 [facility] Comment on above: Order Comment: Jacquie reed Type: BLOOD SPECIMEN Ordering Facility: [facility] Address: [address] [place] [address] Performed By: #### 2 839-9, 2986-8 #### [facility] CLIA [id number] [address] [place] [address] [place] Alpha 1 globulin Elph [Mass/Vol] 0.25 g/dL Normal 0.18-0.43 [facility] Comment on above: Order Comment: Speci brianna Type: BLOOD SPECIMEN Ordering Facility: [facility] Address: [address] [place] [address] Performed By: #### 2 839-9, 2986-8 #### [facility] CLIA [id number] [address] [place], [place] [address] [place] Alpha 2 globulin Elph [Mass/Vol] 0.60 g/dL Normal 0.42-0.98 [facility] Comment on above: Order Comment: Speci men Type: BLOOD SPECIMEN Ordering Facility: [facility] Address: [facility] [place] [address] Performed By: #### 2 839-9, 2986-8 #### [facility] CLIA [id number] [address] [place] [address] [place] Beta globulin Elph [Mass/Vol] 0.78 g/dL Normal 0.61-1.17 [facility] Comment on above: Order Comment: Speci men Type: BLOOD SPECIMEN Ordering Facility: [facility] Address: [address] [place] [address] Performed By: #### 2 839-9, 2986-8 #### [facility] CLIA [id number] [address] [place] [address] COMMENT (SERUM PROT ELECTRO) Monoclonal Protein analysis (immunofixation) is not indicated. [facility] Comment on above: Order Comment: Speci men Type: BLOOD SPECIMEN Ordering Facility: [facility] Address: [facility] [place] [address] Performed By: #### 2 839-9, 2986-8 #### [facility] CLIA [id number] [address] [place] [address] [place] Gamma globulin Elph [Mass/Vol] 1.37 g/dL Normal 0.53-1.51 [facility] Comment on above: Order Comment: Speci men Type: BLOOD SPECIMEN Ordering Facility: [facility] Address: [address] [place] [address] Performed By: #### 2 839-9, 2986-8 #### [facility] CLIA [id number] [address] [place], [place] [address] [facility] M-PROTEIN LOCATION Normal [facility] Comment on above: Order Comment: Speci men Type: BLOOD SPECIMEN Ordering Facility: [facility] Address: [facility] [place] [address] Result Comment: Not Applicable. Performed By: #### 2 839-9, 8 #### [facility] CLIA [id number] [address] [place] [address] Protein Fractions [Interp] No definitive M protein is identified on protein electrophoresis. Normal No definitive M protein is identified on protein electrophore sis. [facility] Comment on above: Order Comment: Speci men Type: BLOOD SPECIMEN Ordering Facility: [facility] Address: [facility] [place] [address] Performed By: #### 2 839-9, 2986-06 #### [facility] CLIA [id number] [address] [place] [address] [place] NE[place] Protein.monoclonal Elph [Mass/Vol] 0.00 g/dL Normal <=0.00 [facility] Comment on above: Order Comment: Speci men Type: BLOOD SPECIMEN Ordering Facility: [facility] Address: [facility] [place] [address] Performed By: #### 2 839-9, 2986-06 #### [facility] CLIA [id number] [address] [place] [address] OF [facility] SPE STAFF REVIEW Reviewed by Singh Austin MD, Ph.D ([id number]) [facility] Comment on above: Order Comment: Speci men Type: BLOOD SPECIMEN Ordering Facility: [facility] Address: [facility] [place] [address] Performed By: #### 2 839-9, 2986-06 #### [facility] CLIA [id number] [address] [place], [place] [address] [facility] OF NEIL Prot SerPl-mCncon 08-08-2024 Protein [Mass/Vol] 6.6 g/dL Normal 6.3-8.0 [facility] Comment on above: Order Comment: Speci men Type: BLOOD SPECIMEN Ordering Facility: [facility] Address: [address] [place] [address] Performed By: #### 2 839-9, 2986-8 #### [facility] CLIA [id number] [address] [place] [address] TSH SerPl-aCncon 08-08-2024 TSH Qn 3.323 m[IU]/L Normal 0.358-3.740 [facility] Comment on above: Order Comment: Speci men Type: BLOOD SPECIMEN Ordering Facility: [facility] Address: [address] [place] [address] Result Comment: 3rd generation ultra sensitive TSH. Performed By: #### 2 839-9, 2986-8 #### [facility] CLIA [id number] [address] [place] [address] OF NEIL Vit B12 SerPl-mCncon 024 Cobalamin (Vitamin B12) [Mass/Vol] 1106 pg/mL High 193-986 [facility] Comment on above: Order Comment: Speci men Type: BLOOD SPECIMEN Ordering Facility: [facility] Address: [address] [place] [address] Performed By: #### 2 839-9, 2986-8 #### [facility] CLIA [id number] [address] [place] [address] OF [facility] Emergency Department Summary on 07-11-2024 Emergency Department Summary [facility] Medical Records Department [address] [place] [address] Emergency Department Summary 07/11/24 MR#: [id number] Acct: [id number] Name: DOMINIC JIMENEZ Rep #: [id number] : 1970 54 From: Rod Chua DO PCP: TAMARA LANDERS Status:REG ER Location: ED HPI HPI - Female History of Present Illness Chief Complaint: Vag Bleeding Narrative Narrative: Patient is a 54-year-old female past medical history anxiety, anemia, cirrhosis secondary to previous alcohol abuse, neuropathy who presented to the emergency department chief complaint of vaginal bleeding. Patient states that she woke up this morning noted that she noted that she had vaginal bleeding and states that she has not had her period in several years. She states that she does have a history of fibroids. Patient states that she feels like the bleeding is getting worse prompting her to come here for the evaluation management. States that the past several days she has had lower abdominal cramps and originally she thought she had a urinary tract infection however she states that she was here recently was tested and was negative. [facility] Medical History Rash History of ulceration Chronic pain Non-smoker Neuropathy Wears glasses Post-menopausal Anxiety Alcohol use Anemia Migraine headache Syncope Gastric reflux Non-smoker History of pain when walking Leg cramps History of edema Cardiology follow-up encounter History of Clostridium difficile infection Splenomegaly Abnormal liver function test Cirrhosis of liver Wernickes encephalopathy Alcoholic hepatitis Home Medications ???Medication ???Instructions ???Recorded ???Last Taken ???Type cholecalciferol (vitamin D3) 125 125 mcg PO DAILY 04/04/22 Unknown History mcg (5,000 unit) tablet (Vitamin D3) folic acid 1 mg tablet 1 mg PO DAILY 04/04/22 Unknown History multivitamin 1 cap PO DAILY 04/04/22 Unknown History thiamine HCl (vitamin B1) 100 mg 100 mg PO DAILY 04/04/22 Unknown History tablet (Vitamin B-1) trazodone 50 mg tablet 100 mg PO QHS SLEEP 04/04/22 Unknown History nadolol 20 mg tablet 20 mg PO DAILY #30 tabs 03/11/23 Unknown Rx pantoprazole 40 mg tablet,delayed 40 mg PO DAILY #90 tabs 03/11/23 Unknown Rx release ginkgo biloba 60 mg capsule 60 mg PO DAILY 05/08/23 Unknown History glucosamine 500 1 cap PO DAILY 05/08/23 Unknown History bt-winbupvke-wqugcfjp comp 400 mg-D3 667 unit-C-Mn cap (Glucosamine-Chondroitin- D3(C-manganese)) magnesium 250 mg tablet 250 mg PO DAILY 05/08/23 Unknown History milk thistle 175 mg capsule 175 mg PO DAILY 05/08/23 Unknown History progesterone micronized 100 mg 500 mg PO QHS 05/08/23 Unknown History capsule famotidine 40 mg tablet 40 mg PO QHS #90 tabs 06/11/23 Unknown Rx duloxetine 60 mg capsule,delayed 60 mg PO BID 07/07/23 Unknown History release lactulose 10 gram/15 mL (15 mL) 15 ml PO TID PRN ammonia 07/07/23 Unknown History oral solution citalopram 20 mg tablet 20 mg PO DAILY 07/10/24 Unknown History estradiol 0.01% (0.1 mg/gram) 1 vaginal 07/10/24 Unknown History vaginal cream gabapentin 300 mg capsule 600 mg PO Q12H 07/10/24 Unknown History hydroxyzine pamoate 25 mg capsule 25 mg PO Q12H PRN PRN anxiety 07/10/24 Unknown History methocarbamol 500 mg tablet 500 mg PO TID 07/10/24 Unknown History vibegron 75 mg tablet (Gemtesa) 75 mg PO DAILY 07/10/24 Unknown History Allergy/AdvReac Type Severity Reaction Status Date / Time acetaminophen AdvReac Intermediate gi upset Verified 07/10/24 20:19 ibuprofen AdvReac Intermediate gi upset Verified 07/10/24 20:19 Family History Mother Dementia Father Diabetes Surgical History History of esophagogastroduodenoscop y (EGD) History of liver biopsy History of tonsillectomy and adenoidectomy Social History household members: spouse Smoking Status: Never smoker alcohol intake: former year quit: 2020 substance use type: does not use ROS ROS ED ROS Narrative Constitutional: Denies any fevers, chills, headaches, lightness, dizziness Eyes: Denies any change in vision double vision blurry vision Cardiovascular: Denies chest pain or palpitations Respiratory: States she has a cough and this secondary to her COVID-19 infection that she is getting over denies any wheezing Abdomen: Denies abdominal pain nausea vomit diarrhea : Complains of vaginal bleeding as noted above denies any pain phonation, hematuria, polyuria Neurological: Denies any numbness, weakness, tingling Musculoskeletal: Denies of back pain Skin: Denies rashes or lesions (more content not included)... Normal [facility] Urine Cultureon 07-11-2024 URC #2 Below infection l polina. Staphylococcus aureus [place] Count 1000-10,000 Mixed Gram Positive Organisms [place] Count 1000-10,000 MIXC Mixed contaminants. Submit a new specimen if indicated. Staphylococcus aureus: REACTION cefOXitin Susc Islt NEG Doxycycline Islt GERARDO <=0.5 S Clindamycin.induced Susc Islt NEG Gentamicin Islt GERARDO <=0.5 S Linezolid Islt GERARDO 2 S Moxifloxacin Islt GERARDO <=0.25 S Nitrofurantoin Islt GERARDO <=16 S Oxacillin Susc Islt 0.5 S Tetracycline Islt GERARDO <=1 S TMP SMX Islt GERARDO <=10 S Vancomycin Islt GERARDO <=0.5 S Normal [facility] Comment on above: Performed By: #### L 503.6075, L503.6550 #### [facility] [address] [place], [address] CBC W/Diff, Automatedon 06-19 Absolute Lymph 1.35 X10 3/uL Normal 0.83-4.51 [facility] Comment on above: Performed By: #### L 503.6075, L503.6550 #### [facility] [address] [place], [address] Absolute Neut 1.9 X10 3/uL Low 2.0-7.7 [facility] Comment on above: Performed By: #### L 503.6075, L503.6550 #### [facility] [address] [place], [address] Basophils/100 WBC (Bld) 0.5 % Normal 0-1 [facility] Comment on above: Performed By: #### L 503.6075, L503.6550 #### [facility] [address] [place], [address] Eosinophils/100 WBC (Bld) 2.4 % Normal 0-5 [facility] Comment on above: Performed By: #### L 503.6075, L503.6550 #### [facility] [address] [place], [address] Erythrocyte distribution width (RBC) [Ratio] 15.2 % High 11.6-14.6 [facility] Comment on above: Performed By: #### L 503.6075, L503.6550 #### [facility] [address] [place], [address] Hematocrit (Bld) [Volume fraction] 35.9 % Low 37-47 [facility] Comment on above: Performed By: #### L 503.6075, L503.6550 #### [facility] [address] [place], [address] Hemoglobin (Bld) [Mass/Vol] 11.3 g/dL Low 12.0-15.0 [facility] Comment on above: Performed By: #### L 503.6075, L503.6550 #### [facility] [address] [place], [address] IG% 0.300 Normal 0.0-0.9 [facility] Comment on above: Result Comment: IG% - Immature Granulocytes (promyelocytes, myelocytes and metamyelocytes) > 1% indicates that a LEFT SHIFT is Present. Performed By: #### L 503.6075, L503.6550 #### [facility] [address] [place], [address] Lymphocytes/100 WBC (Bld) 35.6 % Normal 19-41 [facility] Comment on above: Performed By: #### L 503.6075, L503.6550 #### [facility] [address] [place], [address] MCH (RBC) [Entitic mass] 27.2 pg Normal 27.0-32.0 [facility] Comment on above: Performed By: #### L 503.6075, L503.6550 #### [facility] [address] [place], [address] MCHC (RBC) [Mass/Vol] 31.5 g/dL Low 32-36 [facility] Comment on above: Performed By: #### L 503.6075, L503.6550 #### [facility] [address] [place], [address] MCV (RBC) [Entitic vol] 86.3 fL Normal 81-99 [facility] Comment on above: Performed By: #### L 503.6075, L503.6550 #### [facility] [address] [place], [address] Monocytes/100 WBC (Bld) 11.6 % High 0-10 [facility] Comment on above: Performed By: #### L 503.6075, L503.6550 #### [facility] [address] [place], [address] Neutrophils/100 WBC (Bld) 49.6 % Normal 47-70 [facility] Comment on above: Performed By: #### L 503.6075, L503.6550 #### [facility] [address] [place], [address] Nucleated RBC (Bld) [#/Vol] 0 10*3/uL Normal 0-5 [facility] Comment on above: Performed By: #### L 503.6075, L503.6550 #### [facility] [address] [place], [address] Platelet mean volume (Bld) [Entitic vol] 12.8 fL High 6.2-12.0 [facility] Comment on above: Performed By: #### L 503.6075, L503.6550 #### [facility] [address] [place], [address] Platelets (Bld) [#/Vol] 53 10*3/uL Low 150-450 [facility] Comment on above: Performed By: #### L 503.6075, L503.6550 #### [facility] [address] [place], [address] RBC (Bld) [#/Vol] 4.16 10*6/uL Low 4.2-5.4 [facility] Comment on above: Performed By: #### L 503.6075, L503.6550 #### [facility] [address] [place], [address] RDW SD 48.2 fl High 35.1-43.9 [facility] Comment on above: Performed By: #### L 503.6075, L503.6550 #### [facility] [address] [place], [address] WBC (Bld) [#/Vol] 3.8 10*3/uL Low 4.4-11.0 [facility] Comment on above: Performed By: #### L 503.6075, L503.6550 #### [facility] [address] [place], [address] [facility] ----- DOMINIC JIMENEZ ([id number]) 1970 F Date Time Provider Department 07/10/24 YOVANA STEWART JR [facility] During your visit today, we recorded the following information about you: Allergies As of Date: 07/10/2024 Noted Allergy Reaction APAP (ACETAMINOPHEN) 03/04/2024 15 - Contraindication-Medical [place]* Comments: Patient states her GI doctor told her not to take this medication due to liver problems IBUPROFEN 03/04/2024 15 - Contraindication-Medical [place]* Comments: Patient states her GI doctor told her not to take this medication due to liver problems Date Reviewed: 07/08/2024 Reviewed by: Yovana Stewart Jr., EDGER HAND.OFFAL ICER POULTRY - Fully Assessed Prescriptions as of 07/10/2024 - sulfamethoxazole-trimetho prim (BACTRIM DS) 800-160 mg per tablet Take 1 tablet by mouth two times a day for 10 days. - calcium citrate-vitamin D3 (CITRACAL+D) 315 mg-5 mcg (200 unit) tab Take by mouth as directed. - cholestyramine (QUESTRAN) 4 gram packet DISSOLVE IN WATER AND TAKE 1 POWDER PACKET BY MOUTH TWICE DAILY NEEDED - estradiol (ESTRACE) 0.01 % (0.1 mg/gram) vaginal cream INSERT 1 GRAM VAGINALLY THREE TIMES A WEEK BEFORE BED - testosterone (VOGELXO) 12.5 mg/ 1.25 gram (1 %) transdermal gel Apply as directed. - hydrOXYzine pamoate (VISTARIL) 25 mg capsule Take 1 capsule by mouth every 12 hours as needed for anxiety. - methocarbamol (ROBAXIN) 500 mg tablet take 1 tablet by mouth three times daily - DULoxetine (CYMBALTA) 60 mg capsule Take 1 capsule by mouth two times a day. - citalopram (CELEXA) 20 mg tablet Take 1 tablet by mouth once daily. - traZODone (DESYREL) 100 mg tablet Take 2 tablets by mouth daily at bedtime. - tiZANidine HCl (ZANAFLEX) 4 mg capsule Take by mouth. - gabapentin (NEURONTIN) 300 mg capsule Take 1 capsule by mouth three times a day for 180 days. - progesterone micronized (PROMETRIUM) 100 mg capsule Take by mouth. - gabapentin (NEURONTIN) 100 mg capsule Take 1 capsule by mouth at bedtime as needed for up to 90 days. - rifAXIMin (XIFAXAN) 550 mg tablet Take 550 mg by mouth two times a day. - GEMTESA 75 mg tablet Take 1 tablet by mouth every afternoon. - lactulose 10 gram/15 mL solution Take 10 g by mouth three times daily as needed. - ascorbic acid, vitamin C, (VITAMIN C) 500 mg tablet Take 500 mg by mouth once daily. - cranberry fruit extract (CRANBERRY EXTRACT) 500 mg tab Take 1 tablet by mouth three times daily. - d-mannose 500 mg cap Take 1,000 mg by mouth twice daily. - Magnesium 250 mg tab Take 250 mg by mouth once daily. - glucosamine/chondr [place] A sod (GLUCOSAMINE-CHONDROITIN) 750-600 mg tab Take 1 tablet by mouth once daily. - Lactobac no.41/Bifidobact no.7 (PROBIOTIC-10 ORAL) Take 1 tablet by mouth once daily. - vitamin B complex (B COMPLEX 1 ORAL) Take 1 tablet by mouth once daily. - estradiol 0.01% estriol 0.01% topical cream (CPD) Apply 0.1ml to upper inner arm daily. - PROGESTERONE MISC - Milk Thistle 175 mg tab Take 1 tablet by mouth once daily. - cyanocobalamin (VITAMIN B-12) 1,000 mcg tab Take 1 tablet by mouth once daily. - ginkgo biloba leaf extract 60 mg tab Take 1 tablet by mouth once daily. - famotidine (PEPCID) 40 mg tablet Take 40 mg by mouth daily at bedtime. - nadolol (CORGARD) 20 mg tablet Take 20 mg by mouth once daily. For 30 days - uzjaufjnlzte-dnjmgzlz-knc braun k-coenzyme Q-10 (DEKAS PLUS) 200 mcg-1,000 mcg-10 mg chewable tablet Take 1 tablet by mouth once daily. - folic acid 1 mg tablet Take 1 mg by mouth once daily. - pantoprazole DR (PROTONIX) 40 mg tablet Take 40 mg by mouth once daily. - thiamine (VITAMIN B1) 100 mg tablet Take 100 mg by mouth once daily. - cholecalciferol (VITAMIN D3) 5,000 unit tab Take 5,000 Units by mouth once daily. Problem List As Of Date 07/10/2024 Noted Resolved Hallucinations [R44.3] 10/06/2021 11/19/2023 Delirium due to multiple etiologies, acute, hyp*10/07/2021 08/14/2023 Depression [F32.A] 10/07/2021 Acute metabolic encephalopathy [G93.41] 10/12/2021 08/14/2023 Malnutrition of moderate degree (HCC) [E44.0] 10/31/2021 08/14/2023 Hyperlipidemia [E78.5] 05/08/2023 Diagnosed: 08/14/2023 Alcoholic hepatitis [K70.10] 03/05/2023 08/14/2023 Diagnosed: 08/14/2023 Hepatic cirrhosis (HCC) [K74.60] 07/16/2022 Diagnosed: 08/14/2023 Neuropathy [G62.9] 10/19/2021 Diagnosed: 08/14/2023 Wernicke's disease [E51.2] 03/05/2023 Diagnosed: 08/14/2023 Alcoholic cirrhosis (HCC) [K70.30] Insomnia [G47.00] 09/06/2023 Anxiety [F41.9] 09/06/2023 Vitamin D deficiency, unspecified [E55.9] 05/08/2023 Diagnosed: 11/19/2023 Polyneuropathy, unspecified [G62.9] 05/26/2023 Diagnosed: 11/19/2023 Encounter Status:Closed by YOVANA STEWART on 07/10/24 [facility] Comprehensive Metabolic Prof [facility] 07-10-2024 Albumin [Mass/Vol] 3.6 g/dL Normal 3.2-5.0 [facility] Comment on above: Performed By: #### L 100.0100 #### [facility] [address] [place], [address] Albumin/Globulin [Mass ratio] 0.8 {ratio} Low 0.9-2.4 [facility] Comment on above: Performed By: #### L 100.0100 #### [facility] [address] [place], [address] ALK P 63 U/L Normal 45-117 [facility] Comment on above: Performed By: #### L 100.0100 #### [facility] [address] [place], [address] ALT [Catalytic activity/Vol] 22 U/L Normal 13-56 [facility] Comment on above: Performed By: #### L 100.0100 #### [facility] [address] [place], [address] AST [Catalytic activity/Vol] 29 U/L Normal 15-37 [facility] Comment on above: Performed By: #### L 100.0100 #### [facility] [address] [place], [address] Bilirubin [Mass/Vol] 0.90 mg/dL Normal 0.20-1.00 [facility] Comment on above: Result Comment: For patients on eltrombopag therapy, use of Dimension [place] TBIL is not recommended. Performed By: #### L 100.0100 #### [facility] [address] [place], [address] BUN/CRE 11.5 RATIO Normal 10-20 [facility] Comment on above: Performed By: #### L 100.0100 #### [facility] [address] [place], [address] CA,Total 8.8 mg/dL Normal 8.5-10.1 [facility] Comment on above: Performed By: #### L 100.0100 #### [facility] [address] [place], [address] Chloride [Moles/Vol] 106 mmol/L Normal 98-107 [facility] Comment on above: Performed By: #### L 100.0100 #### [facility] [address] [place], [address] CO2 [Moles/Vol] 24.0 mmol/L Normal 21.0-32.0 [facility] Comment on above: Performed By: #### L 100.0100 #### [facility] [address] [place], [address] Creatinine [Mass/Vol] 0.87 mg/dL Normal 0.55-1.02 [facility] Comment on above: Result Comment: The validity of the calculated GFR GFRAA in patients over 70 years has not been determined. Clinical correlation is essential. Performed By: #### L 100.0100 #### [facility] [address] [place], [address] ECRCL 89.18 ml/min Normal [facility] Comment on above: Performed By: #### L 100.0100 #### [facility] [address] [place], [address] EST GFR - AA 88 mL/min Normal >60 [facility] Comment on above: Result Comment: Afri can Marshallese GFR Calc Performed By: #### L 100.0100 #### [facility] [address] [place], [address] GAP 8 Normal 5-15 [facility] Comment on above: Performed By: #### L 100.0100 #### [facility] [address] [place], [address] GFR/1.73 sq M.predicted among non-blacks MDRD (S/P/Bld) [Vol rate/Area] 72 mL/min/{1.73_m2} Normal >60 [facility] Comment on above: Result Comment: Non- GFR Calc Performed By: #### L 100.0100 #### [facility] [address] [place], [address] Globulin (S) [Mass/Vol] 4.5 g/dL High 2.2-4.2 [facility] Comment on above: Performed By: #### L 100.0100 #### [facility] [address] [place], [address] Glucose [Mass/Vol] 95 mg/dL Normal 74-106 [facility] Comment on above: Performed By: #### L 100.0100 #### [facility] [address] [place], [address] Potassium [Moles/Vol] 3.5 mmol/L Normal 3.5-5.1 [facility] Comment on above: Performed By: #### L 100.0100 #### [facility] [address] [place], [address] Sodium [Moles/Vol] 138 mmol/L Normal 136-145 [facility] Comment on above: Performed By: #### L 100.0100 #### [facility] [address] [place], [address] T PROT 8.1 g/dL Normal 6.4-8.2 [facility] Comment on above: Performed By: #### L 100.0100 #### [facility] [address] [place], [place], [id number] Urea nitrogen [Mass/Vol] 10 mg/dL Normal 7-18 [facility] Comment on above: Performed By: #### L 100.0100 #### [facility] [address] [place], [address] ,Urineon 07-10-2024 Beta HCG ( test) Ql (U) Negative Normal [facility] Comment on above: Order Comment: COLLE CTOR TO SPECIFY Result Comment: Very dilute urine specimens, as indicated by a low specific gravity, may not contain workforce services representative levels of hCG. If is still suspected, a first morning urine specimen should be collected 48 hours later and tested. Performed By: #### L 100.0100 #### [facility] [address] [place], [address] Transvaginal Non-on 07-10-2024 Transvaginal Non- [facility] Imaging Services [address] [place], [place] [address] Transvaginal Non- MR#: [id number] Acct: [id number] Name: DOMINIC JIMENEZ Rep #: [id number] : 1970 F 54 From: Stephen Quinonez MD PCP: TAMARA LANDERS Status: REG ER Study: Transvaginal Non- Date of Exam: Exam# [id number] Ordering Dr: Rod Chua DO [id number] INDICATION: vag bleeding EXAMINATION: Ultrasound US Pelvis Non-OB Complete TECHNIQUE: Transvaginal pelvic ultrasound was performed. Grayscale, spectral waveform, and color flow Doppler evaluation of the adnexa. COMPARISON: 10/28/2023 FINDINGS: UTERUS: Anteverted. The uterus measures 8.3 x 4.2 x 4.0 cm. Small fibroids present, largest 11 mm. The endometrial stripe measures 2 mm in AP diameter which is within normal limits. RIGHT OVARY: Not visualized due to overlying bowel gas. LEFT OVARY: Not visualized due to overlying bowel gas. FREE FLUID: None. US/Transvaginal Non- IMPRESSION: Fibroid uterus. No acute findings. Electronically Signed: Stephen Quinonez MD at 23:25 EDT Reading Location ID and State: [facility] / [place] Tel , Service support , CC: TAMARA CARLTON; Dr. Rod Chua DO Forming Operator: Signed Normal [facility] Urinalysis, Completeon 07-10 Mucus Ql (Urine sed) 1+ /hpf Normal [facility] Comment on above: Order Comment: AMOS CTOR TO SPECIFY Performed By: #### L 100.0100 #### [facility] [address] [place], [place], [id number] BACTERIA 1+ /hpf Normal None Seen [facility] Comment on above: Order Comment: AMOS CTOR TO SPECIFY Performed By: #### L 100.0100 #### [facility] [address] [place], [address] EPI,SQUAMOUS 5-10 SEEN Normal 5-10 [facility] Comment on above: Order Comment: COLLE CTOR TO SPECIFY Performed By: #### L 100.0100 #### [facility] [address] [place], [address] RBC 50-100 SEEN Normal 0-5 [facility] Comment on above: Order Comment: COLLE CTOR TO SPECIFY Performed By: #### L 100.0100 #### [facility] [address] [place], [address] WBC 0-5 SEEN Normal 0-5 [facility] Comment on above: Order Comment: AMOS CTOR TO SPECIFY Performed By: #### L 100.0100 #### [facility] [address] [place], [address] CBC W/Diff, Automatedon 06-19 PATH REV Reviewed Normal [facility] Comment on above: Result Comment: PANC YTOPENIA Normocytic anemia. LEUKOPENIA MARKED Thrombocytopenia. Clinical correlation necessary. Lacho Gutierres D.O. 07/09/24 AMENDED REPORT 07/09/24 1307 PATH REV previously reported as: March Performed By: #### L 503.6150, L100.9950 #### [facility] [address] [place], [address] Abdomen/Pelvis without Conto n 07-08-2024 Abdomen/Pelvis without Cont [facility] Imaging Services [address] [place] [address] Abdomen/Pelvis without Cont MR#: [id number] Acct: [id number] Name: DOMINIC JIMENEZ Rep #: [id number] : 1970 F 54 From: Marco Guerra MD PCP: TAMARA LANDERS Status: PRE ER Study: Abdomen/Pelvis without Cont Date of Exam: 06/19 12/11 Exam# [id number] Ordering Dr: Lamine Guerra DO [id number] EXAM: CT ABDOMEN AND PELVIS WITHOUT INTRAVENOUS CONTRAST CLINICAL INDICATION: Suprapubic pain. Rule out kidney stone. TECHNIQUE: Helically acquired images were obtained of the abdomen and pelvis without intravenous contrast. This CT exam was performed using one or more of the following dose reduction techniques: automated exposure control, adjustment of the mA and/or kV according to patient size, and/or use of iterative reconstruction technique. RADIATION DOSE: CTDIvol = 15.43 mGy, DLP = 851.74 mGy-cm COMPARISON: No relevant prior studies available. FINDINGS: LOWER THORAX: Curvilinear scarring and/or subsegmental atelectases in the posterior lung bases. Trace anterior and posterior pericardial effusion. Normal cardiac size. ABDOMEN: LIVER: Hepatomegaly measuring 22.9 cm long. GALLBLADDER AND BILE DUCTS: Hyperdense fluid/fluid level inside the nondilated gallbladder fossa may represent sludge and/or tiny gallstones. No pericholecystic fluid and no gallbladder wall thickening. No intrahepatic or extrahepatic periductal dilatation. PANCREAS: Unremarkable. No focal cystic mass. SPLEEN: Splenomegaly measuring 22 cm long. ADRENALS: Unremarkable. No nodules. KIDNEYS AND URETERS: Unremarkable. Normal renal size and position. No stones or hydronephrosis in both kidneys. STOMACH AND BOWEL: Few scattered diverticula throughout the colon without diverticulitis. No stomach or bowel distention. PELVIS: APPENDIX: The appendix is not visualized but there are no secondary signs of acute appendicitis. BLADDER: Unremarkable. Normal urinary bladder without suspicious stones or mass. REPRODUCTIVE: Unremarkable as visualized. No suspicious abnormality of the anteverted uterus. ABDOMEN and PELVIS: INTRAPERITONEAL SPACE: Unremarkable. No ascites or other fluid collection. No free air. RETROPERITONEAL SPACE: Mild thickening of the anterior Gerota''s fascia, left greater than right. BONES/JOINTS: Unremarkable. No suspicious lytic or blastic abnormality. SOFT TISSUES: Unremarkable. No discrete abdominal or pelvic wall hernia. VASCULATURE: Unremarkable. Abdominal aorta is non-dilated. LYMPH NODES: Unremarkable. No enlarged lymph nodes. CT/Abdomen/Pelvis without Cont IMPRESSION: 1. No CT evidence of stones in the kidneys, ureters and urinary bladder and no hydronephrosis. 2. Asymmetric thickening of the anterior Gerota''s fascia, left greater than right. Etiology is unknown since there is no evidence of pancreatitis or acute abnormality in the retroperitoneum. 3. Hyperdense fluid/fluid level inside the nondilated gallbladder fossa may represent sludge and/or layering of tiny gallstones. 4. Hepatosplenomegaly. 5. Trace anterior and posterior pericardial fluid. Electronically Signed: Marco Guerra MD at 14:03 EDT , CC: TAMARA CARLTON; Dr. Lamine Guerra DO Forming Operator: Signed Normal [facility] Bacteria Ur Culton 4 Bacteria identified Cx Nom (U) ORGANISM ID: 1 10,000 -<50,000 CFU/ml Mixed microbiota No further workup. Mixed microbiota can be due to???urine???contaminatio n with skin bacteria at time of collection or presence of a long-term urinary catheter. If a new culture is needed, please consider re-education of the patient on proper midstream collection technique or straight catheterization for???urine???collection. Normal [facility] Comment on above: Performed By: #### 2 839-9, 2986-8 #### [facility] CLIA [id number] [address] [place] [address] STATES OF [place] Basic Metabolic Profile (BMP )on 07-08-2024 BUN/CRE 14.0 RATIO Normal 10-20 [facility] Comment on above: Performed By: #### L 503.6150, L100.9950 #### [facility] [address] [place], [address] CA,Total 8.5 mg/dL Normal 8.5-10.1 [facility] Comment on above: Performed By: #### L 503.6150, L100.9950 #### [facility] [address] [place], [address] Chloride [Moles/Vol] 104 mmol/L Normal 98-107 [facility] Comment on above: Performed By: #### L 503.6150, L100.9950 #### [facility] [address] [place], [address] CO2 [Moles/Vol] 23.0 mmol/L Normal 21.0-32.0 [facility] Comment on above: Performed By: #### L 503.6150, L100.9950 #### [facility] [address] [place], [address] Creatinine [Mass/Vol] 0.93 mg/dL Normal 0.55-1.02 [facility] Comment on above: Result Comment: The validity of the calculated GFR GFRAA in patients over 70 years has not been determined. Clinical correlation is essential. Performed By: #### L 503.6150, L100.9950 #### [facility] [address] [place], [address] ECRCL 82.49 ml/min Normal [facility] Comment on above: Performed By: #### L 503.6150, L100.9950 #### [facility] [address] [place], [address] EST GFR - AA 81 mL/min Normal >60 [facility] Comment on above: Result Comment: Afri can Marshallese GFR Calc Performed By: #### L 503.6150, L100.9950 #### [facility] [address] [place], [address] GAP 6 Normal 5-15 [facility] Comment on above: Performed By: #### L 503.6150, L100.9950 #### [facility] [address] [place], [address] GFR/1.73 sq M.predicted among non-blacks MDRD (S/P/Bld) [Vol rate/Area] 67 mL/min/{1.73_m2} Normal >60 [facility] Comment on above: Result Comment: Non- GFR Calc Performed By: #### L 503.6150, L100.9950 #### [facility] [address] [place], [address] Glucose [Mass/Vol] 125 mg/dL High 74-106 [facility] Comment on above: Result Comment: Fast ing Glucose result from 100 to 125 mg/dL suggests IMPAIRED HOMEOSTASIS per A.D.A. criteria. Performed By: #### L 503.6150, L100.9950 #### [facility] [address] [place], [address] Potassium [Moles/Vol] 3.9 mmol/L Normal 3.5-5.1 [facility] Comment on above: Performed By: #### L 503.6150, L100.9950 #### [facility] [address] [place], [address] Sodium [Moles/Vol] 133 mmol/L Low 136-145 [facility] Comment on above: Performed By: #### L 503.6150, L100.9950 #### [facility] [address] [place], [address] Urea nitrogen [Mass/Vol] 13 mg/dL Normal 7-18 [facility] Comment on above: Performed By: #### L 503.6150, L100.9950 #### [facility] [address] [place], [address] CNOVon 07-08-2024 CNOV Office Visit ([facility] ) ----- DOMINIC JIMENEZ ([id number]) 1970 F Date Time Provider Department 07/08/24 9:05 AM YOVANA STEWART JR [facility] During your visit today, we recorded the following information about you: Temperature Pulse Respiration Blood pressure 97.6 degrees 71/minute 18/minute 118/79 Weight 88.5 kg Yovana Stewart Jr., EDGER HAND.OFFAL [employer] 07/08/2024 11:03 AM Addendum Dominic Jimenez is a 54 year old female who presents with Urinary Problem (Pain with urination/Discolored uirne //Started 2-3 days ago /); Cough (Dx with covid. /Was seen here on Saturday /); and Pain, Back (Started 2-3 days ago /) 54-year-old female presents today with a complaint of urinary frequency and urgency for the past 2 to 3 days. She states it does not burn when she urinates however it really hurts. The history is provided by the patient. Cough Associated symptoms include sore throat. PAST MEDICAL HISTORY No date: Alcoholic cirrhosis (HCC) No date: Alcoholic hepatitis No date: Anemia No date: Clostridium difficile infection 08/2021: COVID-19 virus infection Comment: hospitalized 10/2021: Delirium Comment: prolonged hospital stay 09/2021-10/2021 at [facility] No date: Depression No date: Esophageal varices (HCC) No date: Fatigue No date: Hepatic encephalopathy (HCC) No date: Neuropathy No date: Splenomegaly 09/2021: Subdural hematoma (HCC) Comment: bilateral ACTIVE PROBLEM LIST Depression Hyperlipidemia Hepatic Cirrhosis (Hcc) Neuropathy Wernicke's Disease Alcoholic Cirrhosis (Hcc) Insomnia Anxiety Vitamin D Deficiency, Unspecified Polyneuropathy, Unspecified Current Outpatient Medications Medication Sig Dispense Refill calcium citrate-vitamin D3 (CITRACAL+D) 315 mg-5 mcg (200 unit) tab Take by mouth as directed. cholestyramine (QUESTRAN) 4 gram packet DISSOLVE IN WATER AND TAKE 1 POWDER PACKET BY MOUTH TWICE DAILY NEEDED estradiol (ESTRACE) 0.01 % (0.1 mg/gram) vaginal cream INSERT 1 GRAM VAGINALLY THREE TIMES A WEEK BEFORE BED testosterone (VOGELXO) 12.5 mg/ 1.25 gram (1 %) transdermal gel Apply as directed. hydrOXYzine pamoate (VISTARIL) 25 mg capsule Take 1 capsule by mouth every 12 hours as needed for anxiety. 60 capsule 3 methocarbamol (ROBAXIN) 500 mg tablet take 1 tablet by mouth three times daily 90 tablet 3 DULoxetine (CYMBALTA) 60 mg capsule Take 1 capsule by mouth two times a day. 180 capsule 3 citalopram (CELEXA) 20 mg tablet Take 1 tablet by mouth once daily. 90 tablet 3 traZODone (DESYREL) 100 mg tablet Take 2 tablets by mouth daily at bedtime. 180 tablet 3 tiZANidine HCl (ZANAFLEX) 4 mg capsule Take by mouth. progesterone micronized (PROMETRIUM) 100 mg capsule Take by mouth. rifAXIMin (XIFAXAN) 550 mg tablet Take 550 mg by mouth two times a day. GEMTESA 75 mg tablet Take 1 tablet by mouth every afternoon. lactulose 10 gram/15 mL solution Take 10 [...] 250 mg by mouth once daily. glucosamine/chondr paniagua A sod (GLUCOSAMINE-CHONDROITIN) 750-600 mg tab Take 1 tablet by mouth once daily. Lactobac no.41/Bifidobact no.7 (PROBIOTIC-10 ORAL) Take 1 tablet by mouth once daily. vitamin B complex (B COMPLEX 1 ORAL) Take 1 tablet by mouth once daily. estradiol 0.01% estriol 0.01% topical cream (CPD) Apply 0.1ml to upper inner arm daily. PROGESTERONE MISC Milk Thistle 175 mg tab Take 1 [...] by mouth once daily. For 30 days flvxfuagydrb-qdwpdfwq-ldl braun k-coenzyme Q-10 (DEKAS PLUS) 200 mcg-1,000 mcg-10 [...] Take 1 capsule by mouth three times a day for 180 days. 270 capsule 1 gabapentin (NEURONTIN) 100 mg capsule Take 1 capsule by mouth at bedtime as needed for up to 90 days. 30 capsule 2 No current facility-administered medications for this visit. Social History Tobacco Use Smoking status: Never Passive exposure: Never Smokeless tobacco: Never Vaping Use Vaping status: Never Used Substance Use Topics Alcohol use: No (more content not included)... Normal [facility] Chest PA and Lateralon 07-08 Chest PA and Lateral [facility] Imaging Services [address] [place], [place] [address] Chest PA and Lateral MR#: [id number] Acct: [id number] Name: DOMINIC JIMENEZ Rep #: [id number] : 1970 F 54 From: Marco Guerra MD PCP: TAMARA LANDERS Status: PRE ER Study: Chest PA and Lateral Date of Exam: 07/08/24 Exam# [id number] Ordering Dr: Lamine Guerra DO [id number] EXAM: XR CHEST, 2 VIEWS CLINICAL INDICATION: cough -- covid + TECHNIQUE: Frontal and lateral views of the chest. COMPARISON: April 12, 2022. FINDINGS: LUNGS AND PLEURAL SPACES: Unremarkable. No consolidation or edema. No pneumothorax. No effusion. HEART: Unremarkable. Cardiac silhouette not enlarged. MEDIASTINUM: Central airways and mediastinal contour are unremarkable. BONES/JOINTS: Unremarkable. No acute fracture. SOFT TISSUES: Unremarkable. RAD/Chest PA and Lateral IMPRESSION: No radiographic evidence of acute cardiopulmonary disease and no significant change. Electronically Signed: Marco Guerra MD at 13:40 EDT , CC: TAMARA CARLTON; Dr. Lamine Guerra DO Forming Operator: Signed Normal [facility] Emergency Department Summary on 07-08-2024 Emergency Department Summary [facility] Medical Records Department [address] [place] [address] Emergency Department Summary 07/08/24 MR#: [id number] Acct: [id number] Name: DOMINIC JIMENEZ Rep #: [id number] : 1970 54 From: Lamine Bernal PCP: TAMARA LANDERS Status:DEP ER Location: ED ADDENDUM by Dr. Lamine Guerra DO on 07/12/24 at 202 Patient called back I discussed urine culture results with the patient. Clinically she was doing better today. Pain is improving. No fevers. Discussed positive urine culture and recommended treatment. She never filled her Bactrim, I recommended her starting on cefdinir for which she agreed. This was sent to her pharmacy. All questions were answered. 07/12/242025 Cosigner Signature (if applicable): cc: TAMARA CARLTON * Signed ADDENDUM by Dr. Lamine Guerra DO on 07/12/24 at 1133 Patient is urine culture results noting concern for Staph aureus pansensitive. Culture was sent out 4 days ago patient was seen by myself. She was initially prescribed Bactrim from express care however she never started taking. Noted she was here yesterday for vaginal bleeding concerns for contaminated urine. Her labs are stable. Attempted to call the patient however noted to voicemail I left a message for patient to call back to discuss treatment options. 07/12/241132 Cosigner Signature (if applicable): cc: TAMARA CARLTON * Signed HPI History of Present Illness Chief Complaint: Complaint Informant: patient Narrative Narrative: Presents for evaluation intermittent pain in suprapubic region for the last 2 days sharp pains that would drop her over. Pain in the area when she urinates. She states since 4 days ago sore throat cough symptoms with subjective fevers. Sinus problems her for taste is different. She went to urgent care today diagnosed with COVID. Reported in 2020 had COVID along with UTI and went septic. 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 Denies any abdominal surgeries. Denies history of kidney stones. She reported urine dipped at the express care negative. However if she empirically prescribed Bactrim she has not started this. Denies back pain. Denies dyspnea. She comes here for evaluation to make sure things are okay. Prior similar symptoms: Yes PFSH PFSH Medical History Rash History of ulceration Chronic pain Non-smoker Neuropathy Wears glasses Post-menopausal Anxiety Alcohol use Anemia Migraine headache Syncope Gastric reflux Non-smoker History of pain when walking Leg cramps History of edema Cardiology follow-up encounter History of Clostridium difficile infection Splenomegaly Abnormal liver function test Cirrhosis of liver Wernickes encephalopathy Alcoholic hepatitis Home Medications ???Medication ???Instructions ???Recorded ???Last Taken ???Type melatonin 10 mg tablet 10 mg PO QHS 03/05/22 Unknown History cholecalciferol (vitamin D3) 125 125 mcg PO DAILY 04/04/22 Unknown History mcg (5,000 unit) tablet (Vitamin D3) folic acid 1 mg tablet 1 mg PO DAILY 04/04/22 Unknown History multivitamin 1 cap PO DAILY 04/04/22 Unknown History thiamine HCl (vitamin B1) 100 mg 100 mg PO DAILY 04/04/22 Unknown History tablet (Vitamin B-1) trazodone 50 mg tablet 25 mg PO MOTUWETHFRSA SLEEP 04/04/22 Unknown History nadolol 20 mg tablet 20 mg PO DAILY #30 tabs 03/11/23 Unknown Rx pantoprazole 40 mg tablet,delayed 40 mg PO DAILY #90 tabs 03/11/23 Unknown Rx release ginkgo biloba 60 mg capsule 60 mg PO DAILY 05/08/23 Unknown History glucosamine 500 1 cap PO DAILY 05/08/23 Unknown History wa-dyhghtzmp-cqfctyzj comp 400 mg-D3 667 unit-C-Mn cap (Glucosamine-Chondroitin- D3(C-manganese)) magnesium 250 mg tablet 250 mg PO DAILY 05/08/23 Unknown History milk thistle 175 mg capsule 175 mg PO DAILY 05/08/23 Unknown History progesterone micronized 100 mg 500 mg PO QHS 05/08/23 Unknown History capsule tizanidine 4 mg capsule 4 mg PO Q8H PRN Pain 05/08/23 Unknown History gabapentin 300 mg capsule 300 mg PO TID #90 caps 06/07/23 Unknown Rx famotidine 40 mg tablet 40 mg PO QHS #90 tabs 06/11/23 Unknown Rx duloxetine 60 mg capsule,delayed 60 mg PO BID 07/07/23 Unknown History release lactulose 10 gram/15 mL (15 mL) 15 ml PO TID PRN ammonia 07/07/23 Unknown History oral solution lidocaine 5 % topical ointment 1 applic topical TID PRN pain #50 07/07/23 Unknown Rx grams rifaximin 550 mg tablet (Xifaxan) 550 mg PO BID 30 days #60 tabs 07/15/23 Unknown Rx oxycodone 5 mg tablet 5 mg PO Q6H PRN pain 1 day #4 tabs 11/26/23 Unknown Rx Allergy/AdvReac Type Severity Reaction Status Date / Time acetaminophen AdvReac Intermediate gi upset Verified 07/08/24 11:52 ibuprofen AdvReac Intermediate gi (more content not included)... Normal [facility] URINALYSIS, DIPSTICK ONLYOrd ered By: Carmen Elena on 07-08-2024 Bilirubin Ql (U) 2+ Abnormal Negative [facility] Comment on above: Suggest correlation with clinical findings and serum bilirubin if clinically indicated. Clarity (Unsp spec) Slightly Cloudy Abnormal Clear [facility] Color (U) Yellow Yellow [facility] Glucose Test strip (U) [Mass/Vol] Negative Negative [facility] Hemoglobin Ql (U) Negative Negative [facility] Interpretation and review of laboratory results Abnormal [facility] Ketones Ql (U) Negative Negative [facility] Leukocyte esterase Test strip Ql (U) Negative Negative [facility] Nitrite Ql (U) Negative Negative [facility] pH (U) 5.5 [pH] 5.0 - 8.0 [facility] Protein (U) [Mass/Vol] 1+ Abnormal Negative [facility] Specific gravity (U) [Rel density] 1.025 1.005 - 1.030 [facility] Urobilinogen Ql (U) Trace Abnormal Negative [facility] URINALYSIS, DIPSTICK ONLYon 07-08-2024 Bilirubin Ql (U) 2+ Abnormal Negative [facility] Comment on above: Order Comment: Speci men Type: URINE SPECIMEN Ordering Facility: [facility] Address: [address] [place] [address] Result Comment: Sugg est correlation with clinical findings and serum bilirubin if clinically indicated. Performed By: #### U A #### [facility] CLIA [id number] [address] [place] [address] [facility] Clarity (Unsp spec) Slightly Cloudy Abnormal Clear [facility] Comment on above: Order Comment: Speci men Type: URINE SPECIMEN Ordering Facility: [facility] Address: [address] [place] [address] Performed By: #### U A #### [facility] CLIA [id number] [address] [place] [address] [facility] Color (U) Yellow Normal Yellow [facility] Comment on above: Order Comment: Speci men Type: URINE SPECIMEN Ordering Facility: [facility] Address: [address] [place] [address] Performed By: #### U A #### [facility] CLIA [id number] [address] [place] [address] Glucose Test strip (U) [Mass/Vol] Negative Normal Negative [facility] Comment on above: Order Comment: Speci men Type: URINE SPECIMEN Ordering Facility: [facility] Address: [address] [place] [address] Performed By: #### U A #### [facility] CLIA [id number] [address] [place] [address] Hemoglobin Ql (U) Negative Normal Negative [facility] Comment on above: Order Comment: Speci men Type: URINE SPECIMEN Ordering Facility: [facility] Address: [address] [place] [address] Performed By: #### U A #### [facility] CLIA [id number] [address] [place] [address] [facility] Ketones Ql (U) Negative Normal Negative [facility] Comment on above: Order Comment: Speci men Type: URINE SPECIMEN Ordering Facility: [facility] Address: [address] [place] [address] Performed By: #### U A #### [facility] CLIA [id number] [address] [place] [address] [facility] Leukocyte esterase Test strip Ql (U) Negative Normal Negative [facility] Comment on above: Order Comment: Speci men Type: URINE SPECIMEN Ordering Facility: [facility] Address: [address] [place] [address] Performed By: #### U A #### [facility] CLIA [id number] [address] [place] [address] [place] Nitrite Ql (U) Negative Normal Negative [facility] Comment on above: Order Comment: Speci men Type: URINE SPECIMEN Ordering Facility: [facility] Address: [address] [place] [address] Performed By: #### U A #### [facility] CLIA [id number] [address] [place] [address] [place] pH (U) 5.5 [pH] Normal 5.0-8.0 [facility] Comment on above: Order Comment: Speci men Type: URINE SPECIMEN Ordering Facility: [facility] Address: [address] [place] [address] Performed By: #### U A #### [facility] CLIA [id number] [address] [place] [address] [place] Protein (U) [Mass/Vol] 1+ Abnormal Negative [facility] Comment on above: Order Comment: Speci men Type: URINE SPECIMEN Ordering Facility: [facility] Address: [address] [place] [address] Performed By: #### U A #### [facility] CLIA [id number] [address] [place] [address] [place] Specific gravity (U) [Rel density] 1.025 Normal 1.005-1.030 [facility] Comment on above: Order Comment: Speci men Type: URINE SPECIMEN Ordering Facility: [facility] Address: [address] [place] [address] Performed By: #### U A #### [facility] CLIA [id number] [address] [place] [address] [place] Urobilinogen Ql (U) Trace Abnormal Negative [facility] Comment on above: Order Comment: Speci men Type: URINE SPECIMEN Ordering Facility: [facility] Address: [address] [place] [address] Performed By: #### U A #### [facility] CLIA [id number] [address] [place] [address] [place] Urinalysis, Completeon 07-08 BACTERIA 1+ /hpf Normal None Seen [facility] Comment on above: Order Comment: Comme nts: Add onto previous labs if possible Performed By: #### L 503.6150, L100.9950 #### [facility] [address] [place], [address] EPI,SQUAMOUS 0-5 SEEN Normal 5-10 [facility] Comment on above: Order Comment: Comme nts: Add onto previous labs if possible Performed By: #### L 503.6150, L100.9950 #### [facility] [address] [place], [address] Mucus Ql (Urine sed) 0 SEEN Normal [facility] Comment on above: Order Comment: Comme nts: Add onto previous labs if possible Performed By: #### L 503.6150, L100.9950 #### [facility] [address] [place], [address] RBC 0 SEEN Normal 0-5 [facility] Comment on above: Order Comment: Comme nts: Add onto previous labs if possible Performed By: #### L 503.6150, L100.9950 #### [facility] [address] [place], [address] WBC 0 SEEN Normal 0-5 [facility] Comment on above: Order Comment: Comme nts: Add onto previous labs if possible Performed By: #### L 503.6150, L100.9950 #### [facility] [address] [place], [address] CNOVon 07-06-2024 CNOV Office Visit [facility] ----- DOMINIC JIMENEZ ([id number]) 1970 F Date Time Provider Department 07/06/24 8:20 AM ALBA HOLDER During your visit today, we recorded the following information about you: Temperature Pulse Respiration Blood pressure 99.1 degrees 88/minute 18/minute 113/70 Alba Holder APRN.CNP 07/06/2024 8:47 AM Addendum If you can't take these medications would contact your specialist to see what agents you can use. Body aches/Pain/Fever Acetaminophen/Tylenol not to exceed 3000mg in a 24 hour period and or Ibuprofen/Motrin 600mg every 6 hours not to exceed 2400mg in a 24 hour period if no history of gastrointestinal bleeding or ulcers for pain/discomfort of fever. Sore throat: Warm beverages with honey, salt water gargles, Chloraseptic spray, throat lozenges. Congestion: Over the counter medications like Tylenol Cold and Flu, Theraflu or Sudafed. Nasal sprays like Flonase or normal saline can also help. Coricidin for patient with Hypertension (high blood pressure) If any worsening of condition please be re-evaluated if having shortness of breath or not able to keep down fluids please go to the emergency room. Alba Holder APRN.CNP 07/06/2024 9:02 AM Signed Dominic Jimenez is a 54 year old female who presents with Cough (Sore throat, head pressure, ear pain, dizzy/Started yesterday/Son has covid) 54-year-old female presents today with dry cough/sore throat that started yesterday. She denies any fevers. Patient states that her son tested positive for COVID. Patient states she has had COVID in the past. Patient states that she is immune compromised with liver concerns and cannot take Tylenol or ibuprofen. She denies any vomiting or diarrhea. No shortness of breath. Cough Associated symptoms include chills and sore throat. PAST MEDICAL HISTORY No date: Alcoholic cirrhosis (HCC) No date: Alcoholic hepatitis No date: Anemia No date: Clostridium difficile infection 08/2021: COVID-19 virus infection Comment: hospitalized 10/2021: Delirium Comment: prolonged hospital stay 09/2021-10/2021 at [facility] No date: Depression No date: Esophageal varices (HCC) No date: Fatigue No date: Hepatic encephalopathy (HCC) No date: Neuropathy No date: Splenomegaly 09/2021: Subdural hematoma (HCC) Comment: bilateral ACTIVE PROBLEM LIST Depression Hyperlipidemia Hepatic Cirrhosis (Hcc) Neuropathy Wernicke's Disease Alcoholic Cirrhosis (Hcc) Insomnia Anxiety Vitamin D Deficiency, Unspecified Polyneuropathy, Unspecified Current Outpatient Medications Medication Sig Dispense Refill calcium citrate-vitamin D3 (CITRACAL+D) 315 mg-5 mcg (200 unit) tab Take by mouth as directed. cholestyramine (QUESTRAN) 4 gram packet DISSOLVE IN WATER AND TAKE 1 POWDER PACKET BY MOUTH TWICE DAILY NEEDED estradiol (ESTRACE) 0.01 % (0.1 mg/gram) vaginal cream INSERT 1 GRAM VAGINALLY THREE TIMES A WEEK BEFORE BED testosterone (VOGELXO) 12.5 mg/ 1.25 gram (1 %) transdermal gel Apply as directed. hydrOXYzine pamoate (VISTARIL) 25 mg capsule Take 1 capsule by mouth every 12 hours as needed for anxiety. 60 capsule 3 methocarbamol (ROBAXIN) 500 mg tablet take 1 tablet by mouth three times daily 90 tablet 3 DULoxetine (CYMBALTA) 60 mg capsule Take 1 capsule by mouth two times a day. 180 capsule 3 citalopram (CELEXA) 20 mg tablet Take 1 tablet by mouth once daily. 90 tablet 3 traZODone (DESYREL) 100 mg tablet Take 2 tablets by mouth daily at bedtime. 180 tablet 3 tiZANidine HCl (ZANAFLEX) 4 mg capsule Take by mouth. progesterone micronized (PROMETRIUM) 100 mg capsule Take by mouth. rifAXIMin (XIFAXAN) 550 mg tablet Take 550 mg by mouth two times a day. GEMTESA 75 mg tablet Take 1 tablet by mouth every afternoon. lactulose 10 gram/15 mL solution Take 10 [...] 250 mg by mouth once daily. glucosamine/chondr paniagua A sod (GLUCOSAMINE-CHONDROITIN) 750-600 mg tab Take 1 tablet by mouth once daily. Lactobac no.41/Bifidobact no.7 (PROBIOTIC-10 ORAL) Take 1 tablet by mouth once daily. vitamin B complex (B COMPLEX 1 ORAL) Take 1 tablet by mouth once daily. estradiol 0.01% estriol 0.01% topical cream (CPD) Apply 0.1ml to upper inner arm daily. PROGESTERONE MISC Milk Thistle 175 mg tab Take 1 tablet by mouth once daily. cyanocobalamin (VITAMIN B-12) 1,000 mcg tab Take 1 tablet by mouth once daily. ginkgo biloba leaf extract 60 mg tab Take 1 tablet by mouth once daily. famotidine (PEPCID) 40 mg tablet Take 40 mg by mouth daily at bedtime. nadolol (CORGARD) 20 mg tablet Take 20 mg (more content not included)... Normal [facility] FLUABV+SARS-CoV-2+RSV Pnl Re sp BELIA+probeon 07-06-2024 FLUABV+SARS-CoV-2+RSV Pnl Resp BELIA+probe COVID 19 RESULT: Detected The method used is RT-PCR or an equivalent NAAT method. Reference Range(the expected result in uninfected individuals): Not detected INFLUENZA A PCR: Not detected INFLUENZA B PCR: Not detected RSV PCR: Not detected Abnormal [facility] Comment on above: Performed By: #### 9 5941-1 #### [facility] CLIA [id number] [address] [place] [address] [place] Estradiol SerPl-mCncon 06-25 E2 [Mass/Vol] 26 pg/mL Normal See comment [facility] Comment on above: Order Comment: Speci men Type: BLOOD SPECIMEN [facility] Address: [address] [place] [address] Result Comment: Foll icular Phase (-12 to -4 days): 19.5 - 144.2 pg/mL Midcycle Phase (-3 to +2 days): 63.9 - 356.7 pg/mL Luteal Phase (+4 to +12 days): 55.8 - 214.2 pg/mL Post-menopausal females: 0 - 32.2 pg/mL Performed By: #### 2 243-4 #### [facility] CLIA [id number] [address] [place], [place] [id number] [facility] Progest SerPl-mCncon 024 Progesterone [Mass/Vol] ng/mL Normal See comment [facility] Comment on above: Order Comment: Speci men Type: BLOOD SPECIMEN Ordering Facility: [facility] Address: [facility] [place] [address] Result Comment: Mens trual Cycle Progesterone Reference Ranges: Follicular: 0.1 - 1.4 ng/mL Luteal: 3.3 - 25.6 ng/mL Mid-luteal: 4.4 - 28.0 ng/mL Postmenopausal: 0.0 - 0.7 ng/mL Progesterone Reference Ranges vary by gestational period: First Trimester: 11.2 - 90.0 ng/mL Second Trimester: 25.5 - 89.4 ng/mL Third Trimester: 48.4 - 422.5 ng/mL The presence of DHEA-S (a metabolite of DHEA, a steroid hormone that may be used as part of in vitro fertilization (IVF) protocols to improve ovarian response and IVF treatment outcomes), causes falsely elevated progesterone results around the clinically important decision level of 1 ng/mL of progesterone, on the [employer] assay. For patients taking DHEA supplements, an alternate methodology should be used to measure progesterone concentrations. Performed By: #### 2 839-9, 2986-8 #### [facility] CLIA [id number] [address] [place], [place] [address] [place] Testost SerPl-mCncon 024 Testosterone [Mass/Vol] 57 ng/dL Normal 14-76 [facility] Comment on above: Order Comment: Speci men Type: BLOOD SPECIMEN Ordering Facility: [facility] Address: [facility] [place] [address] Performed By: #### 2 839-9, 2986-8 #### [facility] CLIA [id number] [address] [place] [address] [facility] Albino 05-25-2024 CNPN Telephone (FAMAAR) ----- DOMINIC JIMENEZ ([id number]) 1970 F Date Time Provider Department 05/25/24 AURE CARLTONAAR During your visit today, we recorded the following information about you: Kailey Greene MA 05/25/2024 3:12 PM Signed Pt called stating she took her bedtime meds on accident this morning. She wants to know if she can retake them for tonight as prescribe? She does say she tried regurgitating meds but was unsuccessful. Allergies As of Date: 05/25/2024 Noted Allergy Reaction APAP (ACETAMINOPHEN) 03/04/2024 15 - Contraindication-Medical [place]* Comments: Patient states her GI doctor told her not to take this medication due to liver problems IBUPROFEN 03/04/2024 15 - Contraindication-Medical [place]* Comments: Patient states her GI doctor told her not to take this medication due to liver problems Date Reviewed: 04/09/2024 Reviewed by: Philip Levine LMT - Fully Assessed Prescriptions as of 05/26/2024 - hydrOXYzine pamoate (VISTARIL) 25 mg capsule Take 1 capsule by mouth every 12 hours as needed for anxiety. - methocarbamol (ROBAXIN) 500 mg tablet take 1 tablet by mouth three times daily - DULoxetine (CYMBALTA) 60 mg capsule Take 1 capsule by mouth two times a day. - citalopram (CELEXA) 20 mg tablet Take 1 tablet by mouth once daily. - traZODone (DESYREL) 100 mg tablet Take 2 tablets by mouth daily at bedtime. - tiZANidine HCl (ZANAFLEX) 4 mg capsule Take by mouth. - gabapentin (NEURONTIN) 300 mg capsule Take 1 capsule by mouth three times a day for 180 days. - progesterone micronized (PROMETRIUM) 100 mg capsule Take by mouth. - rifAXIMin (XIFAXAN) 550 mg tablet Take 550 mg by mouth twice daily. - GEMTESA 75 mg tablet Take 1 tablet by mouth every afternoon. - lactulose 10 gram/15 mL solution Take 10 g by mouth three times daily as needed. - ascorbic acid, vitamin C, (VITAMIN C) 500 mg tablet Take 500 mg by mouth once daily. - cranberry fruit extract (CRANBERRY EXTRACT) 500 mg tab Take 1 tablet by mouth three times daily. - d-mannose 500 mg cap Take 1,000 mg by mouth twice daily. - Magnesium 250 mg tab Take 250 mg by mouth once daily. - glucosamine/chondr paniagua A sod (GLUCOSAMINE-CHONDROITIN) 750-600 mg tab Take 1 tablet by mouth once daily. - Lactobac no.41/Bifidobact no.7 (PROBIOTIC-10 ORAL) Take 1 tablet by mouth once daily. - vitamin B complex (B COMPLEX 1 ORAL) Take 1 tablet by mouth once daily. - estradiol 0.01% estriol 0.01% topical cream (CPD) Apply 0.1ml to upper inner arm daily. - PROGESTERONE MISC Dissolve one triturate under the tongue at bedtime. - Milk Thistle 175 mg tab Take 1 tablet by mouth once daily. - cyanocobalamin (VITAMIN B-12) 1,000 mcg tab Take 1 tablet by mouth once daily. - ginkgo biloba leaf extract 60 mg tab Take 1 tablet by mouth once daily. - famotidine (PEPCID) 40 mg tablet Take 40 mg by mouth daily at bedtime. - nadolol (CORGARD) 20 mg tablet Take 20 mg by mouth once daily. For 30 days - zeyyeoyrxuzq-owluaqky-xdu braun k-coenzyme Q-10 (DEKAS PLUS) 200 mcg-1,000 mcg-10 mg chewable tablet Take 1 tablet by mouth once daily. - folic acid 1 mg tablet Take 1 mg by mouth once daily. - pantoprazole DR (PROTONIX) 40 mg tablet Take 40 mg by mouth once daily. - thiamine (VITAMIN B1) 100 mg tablet Take 100 mg by mouth once daily. - cholecalciferol (VITAMIN D3) 5,000 unit tab Take 5,000 Units by mouth once daily. Problem List As Of Date 05/25/2024 Noted Resolved Hallucinations [R44.3] 10/06/2021 11/19/2023 Delirium due to multiple etiologies, acute, hyp*10/07/2021 08/14/2023 Depression [F32.A] 10/07/2021 Acute metabolic encephalopathy [G93.41] 10/12/2021 08/14/2023 Malnutrition of moderate degree (HCC) [E44.0] 10/31/2021 08/14/2023 Hyperlipidemia [E78.5] 05/08/2023 Alcoholic hepatitis [K70.10] 03/05/2023 08/14/2023 Hepatic cirrhosis (HCC) [K74.60] 07/16/2022 Neuropathy [G62.9] 10/19/2021 Wernicke's disease [E51.2] 03/05/2023 Alcoholic cirrhosis (HCC) [K70.30] Insomnia [G47.00] 09/06/2023 Anxiety [F41.9] 09/06/2023 Vitamin D deficiency, unspecified [E55.9] 05/08/2023 Polyneuropathy, unspecified [G62.9] 05/26/2023 Encounter Status:Closed by STEFFI DEL ANGEL on 05/26/24 [facility] Nursing Noteon 04-28-[address] Scott at bedsid e and informed pt to repeat colonoscopy in 10 years. [facility] CNOVon 04-09-2024 CNOV Office Visit ([facility]) ----- DOMINIC JIMENEZ ([id number]) 1970 F Date Time Provider Department 04/09/24 10:00 AM JAMES ALBRIGHT AGSWG During your visit today, we recorded the following information about you: James Albright DC 04/09/2024 1:55 PM Signed New Patient Chiropractor Progress Note Dominic Jimenez is a 54 year old female who presents today with complaints of low back pain and bilateral foot pain. She describes the pain as being numbness, tingling, sore, and tight and rates the pain as a 2/10 (low back), 4-5/10 (feet). The pain began 2 years ago neuropathy falls from neuropathy (low back). The pain is exacerbated by overhead activities, sleeping, ADLs, bending for long periods of time, sitting, seated to standing, laying down, and driving. Previous treatments have included topical analgesics/creams, heat, activity modification, Physical therapy, manipulation, essential oils, and medication. She complains of radiation to the both feet, both hands, and both shins. She reports numbness or tingling. She denies popping, clicking, catching, grinding, or instability. She reports bowel or bladder weakness, difficulty with walking long distance, and muscle weakness. She notes previous alcoholism, and showed scabs along shins where she scratches habitually due to neuropathy. AO Unlimited Pain Intensity 2 - The pain is moderate at the moment Personal Care (Washing/Dressing) 1 - I can look after myself normally but it causes extra pain Lifting 4 - I can lift only very light weights Walking 3 - Pain prevents me from walking more than 1/4 mile Sitting 2 - Pain prevents me from sitting more than 1 hour Standing 3 - Pain prevents me from standing more than 1/2 hour Sleeping 1 - I can sleep well only by using medication Sex Life 4 - My sex life is nearly absent because of pain Social Life 1 - My social life is normal but increases the degree of pain Traveling 2 - Pain is bad but I manage journeys over 2 hours Total Score 46 Interpretation 41% - 60% - severe disability MEDICATIONS: Current Outpatient Medications Medication Sig DULoxetine (CYMBALTA) 60 mg capsule Take 1 capsule by mouth two times a day. citalopram (CELEXA) 20 mg tablet Take 1 tablet by mouth once daily. traZODone (DESYREL) 100 mg tablet Take 2 tablets by mouth daily at bedtime. tiZANidine HCl (ZANAFLEX) 4 mg capsule Take by mouth. methocarbamol (ROBAXIN) 500 mg tablet Take 1 tablet by mouth three times a day. gabapentin (NEURONTIN) 300 mg capsule Take 1 capsule by mouth three times a day for 180 days. progesterone micronized (PROMETRIUM) 100 mg capsule Take by mouth. gabapentin (NEURONTIN) 100 mg capsule Take 1 capsule by mouth at bedtime as needed for up to 90 days. rifAXIMin (XIFAXAN) 550 mg tablet Take 550 mg by mouth twice daily. (Patient not taking: Reported on 03/03/2024) GEMTESA 75 mg tablet Take 1 tablet by mouth every afternoon. lactulose 10 gram/15 mL solution Take 10 [...] 250 mg by mouth once daily. glucosamine/chondr paniagua A sod (GLUCOSAMINE-CHONDROITIN) 750-600 mg tab Take 1 tablet by mouth once daily. Lactobac no.41/Bifidobact no.7 (PROBIOTIC-10 ORAL) Take 1 tablet by mouth once daily. vitamin B complex (B COMPLEX 1 ORAL) Take 1 tablet by mouth once daily. estradiol 0.01% estriol 0.01% topical cream (CPD) Apply 0.1ml to upper inner arm daily. PROGESTERONE MISC Dissolve one triturate under the tongue at bedtime. (Patient not taking: Reported on 03/03/2024) Milk Thistle 175 mg tab Take 1 [...] by mouth once daily. For 30 days (Patient not taking: Reported on 03/03/2024) szmusfxfxhnj-kupcjykr-jah braun k-coenzyme Q-10 (DEKAS PLUS) 200 mcg-1,000 mcg-10 mg chewable tablet Take 1 tablet by mouth once daily. (Patient not taking: Reported on 03/03/2024) folic acid 1 mg tablet Take 1 mg by mouth once daily. pantoprazole DR (PROTONIX) 40 mg tablet Take 40 mg by mouth once daily. thiamine (VITAMIN B1) 100 mg tablet Take 100 mg by mouth once daily. cholecalciferol (VITAMIN D3) 5,000 unit tab Take 5,000 Units by mouth once daily. No current facility-administered medications for this visit. REVIEW OF SYSTEMS: Constitutional: Negative for fever and chills. Eyes: Negative for blurred vision and double vision. Respiratory: Negative for josé (more content not included)... Normal [facility] ----- NEDDOMINIC ([id number]) 1970 F Date Time Provider Department 03/31/24 AUNDREA SHULTZ AGSPINE3 During your visit today, we recorded the following information about you: Chris Case 03/31/2024 1:17 PM Signed ----- Message from Wiliam Grossman sent at 03/31/2024 1:12 PM EDT ----- Regarding: Spine AND Pain / Aundrea Shultz (JERRY) / Patient Requesting Different Provider Spine AND Pain / Aundrea Shultz (JERRY) / Patient Requesting Different Provider Patient: Dominic Jimenez Date of : 1970 Primary Care Provider: Aure Carlton APRN.JERRY Patient has been identified by name and Date of (Y/N): yes Patient: Dominic Jimenez Date of : 1970 Provider for this encounter: Aure Carlton APRN.CNP Reason for the call/escalation: pt wants appt with dr painter but last appt was with aundrea steve Pt also wants to see corey as a chiropractor Was Patient Referred to [facility]/Seek Emergency Treatment (Y/N): no Did Patient Agree (Y/N): no Was An Attempt Made To Transfer The Patient To The Office (Y/N): no Were You Able To Reach Someone At The Office (Y/N): no If Yes - Patient Was Transferred To (Caregivers Name): no If No - Which [facility] Leadership Sewing Demonstrator Did You Speak With Regarding This Patient: no Was an appointment scheduled (Y/N): no Reason patient was requesting visit (RFV/signs and symptoms/diagnosis) : pain management Person calling if other than patient: no Return call to if other than patient: no Best contact number: [phone] Thank you, Wiliam Grossman March 31, 2024 1:12 PM Taylor Tristan 04/01/2024 10:54 AM Signed Patient was scheduled with Dr. Painter in [place] on 06/11 to discuss disability. Patient was placed on wait list. Patient also scheduled New patient appt with Dr. Albright in [place] on 04/09/24 @ 10 am. Taylor Tristan Allergies As of Date: 03/31/2024 Noted Allergy Reaction APAP (ACETAMINOPHEN) 03/04/2024 15 - Contraindication-Medical [place]* Comments: Patient states her GI doctor told her not to take this medication due to liver problems IBUPROFEN 03/04/2024 15 - Contraindication-Medical [place]* Comments: Patient states her GI doctor told her not to take this medication due to liver problems Date Reviewed: 03/30/2024 Reviewed by: Aure Carlton APRN.CNP - Fully Assessed Reason for Visit: Returning Patient's Call [408] Prescriptions as of 04/01/2024 - DULoxetine (CYMBALTA) 60 mg capsule Take 1 capsule by mouth two times a day. - citalopram (CELEXA) 20 mg tablet Take 1 tablet by mouth once daily. - traZODone (DESYREL) 100 mg tablet Take 2 tablets by mouth daily at bedtime. - tiZANidine HCl (ZANAFLEX) 4 mg capsule Take by mouth. - methocarbamol (ROBAXIN) 500 mg tablet Take 1 tablet by mouth three times a day. - gabapentin (NEURONTIN) 300 mg capsule Take 1 capsule by mouth three times a day for 180 days. - progesterone micronized (PROMETRIUM) 100 mg capsule Take by mouth. - gabapentin (NEURONTIN) 100 mg capsule Take 1 capsule by mouth at bedtime as needed for up to 90 days. - rifAXIMin (XIFAXAN) 550 mg tablet Take 550 mg by mouth twice daily. - GEMTESA 75 mg tablet Take 1 tablet by mouth every afternoon. - lactulose 10 gram/15 mL solution Take 10 g by mouth three times daily as needed. - ascorbic acid, vitamin C, (VITAMIN C) 500 mg tablet Take 500 mg by mouth once daily. - cranberry fruit extract (CRANBERRY EXTRACT) 500 mg tab Take 1 tablet by mouth three times daily. - d-mannose 500 mg cap Take 1,000 mg by mouth twice daily. - Magnesium 250 mg tab Take 250 mg by mouth once daily. - glucosamine/chondr paniagua A sod (GLUCOSAMINE-CHONDROITIN) 750-600 mg tab Take 1 tablet by mouth once daily. - Lactobac no.41/Bifidobact no.7 (PROBIOTIC-10 ORAL) Take 1 tablet by mouth once daily. - vitamin B complex (B COMPLEX 1 ORAL) Take 1 tablet by mouth once daily. - estradiol 0.01% estriol 0.01% topical cream (CPD) Apply 0.1ml to upper inner arm daily. - PROGESTERONE MISC Dissolve one triturate under the tongue at bedtime. - Milk Thistle 175 mg tab Take 1 tablet by mouth once daily. - cyanocobalamin (VITAMIN B-12) 1,000 mcg tab Take 1 tablet by mouth once daily. - ginkgo biloba leaf extract 60 mg tab Take 1 tablet by mouth once daily. - famotidine (PEPCID) 40 mg tablet Take 40 mg by mouth daily at bedtime. - nadolol (CORGARD) 20 mg tablet Take 20 mg by mouth once daily. For 30 days - fxueusgwethw-cepbbvei-zyj braun k-coenzyme Q-10 (DEKAS PLUS) 200 mcg-1,000 mcg-10 mg chewable tablet Take 1 tablet by mouth once daily. - folic acid 1 mg tablet Take 1 mg by mouth once daily. - pantoprazole DR (PROTONIX) 40 mg tablet Take 40 mg by mouth once daily. - thiamine (VITAMIN B1) (more content not included)... Normal [facility] CNPNon 03-25-2024 CNPN Telephone (AGSPINE3) ----- DOMINIC JIMENEZ ([id number]) 1970 F Date Time Provider Department 03/25/24 TERE PAINTER AGSPINE3 During your visit today, we recorded the following information about you: Chris Case 03/25/2024 1:18 PM Signed ----- Message from Melina Manriquez sent at 03/25/2024 1:13 PM EDT ----- Regarding: Tere Nuñez Appointment Tere Nuñez Appointment Patient: Dominic Jimenez Date of : 1970 Primary Care Provider: Aure Carlton APRN.CNP Patient has been identified by name and Date of (Y/N): y Patient: Dominic Jimenez Date of : 1970 Provider for this encounter: Aure Carlton APRN.CNP Reason for the call/escalation: Patient stated that she wanted to know if there was anyway she could do a virtual visit due to her narcolepsy and not having a ride with Dr. Painter. She would like a call back [facility] to discuss this Was Patient Referred to 911/Seek Emergency Treatment (Y/N): n Did Patient Agree (Y/N): n/a Was An Attempt Made To Transfer The Patient To The Office (Y/N): y Were You Able To Reach Someone At The Office (Y/N): n If Yes - Patient Was Transferred To (Caregivers Name): n/a If No - Which [facility] Leadership Sewing Demonstrator Did You Speak With Regarding This Patient: n/a Was an appointment scheduled (Y/N): n Reason patient was requesting visit (RFV/signs and symptoms/diagnosis) : n/a Person calling if other than patient: self Return call to if other than patient: self Best contact number: [phone] Thank you, Melina Manriquez March 25, 2024 1:13 PM Tere Painter MD 03/25/2024 1:23 PM Addendum We cannot prescribe any medications for her with a virtual visit, particularly as it has been over a year since she was last seen in person. However, when I spoke with her last time, there was little more that I could think of to offer her in the way of treatment, so if she is just looking to run some things by me as a one-time visit, a virtual visit would be fine. Tere Painter III, MD, Alba Saldivar 03/25/2024 3:28 PM Signed LVM for patient to return call Alba Coffey Katy to Dr. Tere Painter MD / Gretchen Vidal CNP [facility] Spine [facility] [address] [place] [address] Phone. [phone] / Fax. [phone] Alba Coffey 03/25/2024 4:26 PM Signed Received message from patient, I left another message for her to contact us back. She did state in her voicemail she wanted to discuss Gabapentin and disability paperwork. I informed the patient via voicemail that we could not discuss medication via virtual visit and to call back to let us know what she would prefer to do Alba Coffey Dry Heat Cabinet Attendant to Dr. Tere Painter MD / Gretchen Vidal CNP [facility] Sp[facility] [place] [address] [address] [address] Phone. [phone] / Fax. [phone] Alba Coffey 03/26/2024 7:34 AM Signed Patient left a voicemail last night requesting to cancel her appointment with Dr Painter. She stated she will call back to reschedule. Sent [employer] message confirming cancellation. Alba Coffey Katy to Dr. Tere Painter MD / Gretchen Vidal CNP, APRN [facility] Sp[facility] [place] [address] [place] [address] Phone. [phone] / Fax. [phone] Allergies As of Date: 03/25/2024 Noted Allergy Reaction APAP (ACETAMINOPHEN) 03/04/2024 15 - Contraindication-Medical [place]* Comments: Patient states her GI doctor told her not to take this medication due to liver problems IBUPROFEN 03/04/2024 15 - Contraindication-Medical [place]* Comments: Patient states her GI doctor told her not to take this medication due to liver problems Date Reviewed: 03/24/2024 Reviewed by: Teodora Mckinnon LPN - Fully Assessed Reason for Visit: Patient Question [4957] Prescriptions as of 03/26/2024 - sulfamethoxazole-trimetho prim (BACTRIM DS) 800-160 mg per tablet Take 1 tablet by mouth two times a day for 7 days. - tiZANidine HCl (ZANAFLEX) 4 mg capsule Take by mouth. - methocarbamol (ROBAXIN) 500 mg tablet Take 1 tablet by mouth three times a day. - citalopram (CELEXA) 20 mg tablet Take 1 tablet by mouth once daily. - traZODone (DESYREL) 100 mg tablet Take 2 tablets by mouth daily at bedtime. - gabapentin (NEURONTIN) 300 mg capsule Take 1 capsule by mouth three times a day for 180 days. - progesterone micronized (PROMETRIUM) 100 mg capsule Take by mouth. - gabapentin (NEURONTIN) 100 mg capsule Take 1 capsule by mouth at bedtime as needed for up to 90 days. - rifAXIMin (XIFAXAN) 550 mg tablet Take 550 mg by mouth twice daily. - GEMTESA 75 mg tablet Take 1 tablet by mouth every afternoon. - lactulose 10 gram/15 mL solution Take 10 g by mouth thr (more content not included)... Normal [facility] URINALYSIS, DIPSTICK ONLYOrd ered By: Dario Sullivan on 03-19-2024 Bilirubin Ql (U) Negative Negative [facility] Clarity (Unsp spec) Clear Clear Rickie [facility] Color (U) Yellow Yellow [facility] Glucose Test strip (U) [Mass/Vol] Negative Negative [facility] Hemoglobin Ql (U) 3+ Abnormal Negative [facility] Interpretation and review of laboratory results Abnormal [facility] Ketones Ql (U) Negative Negative [facility] Leukocyte esterase Test strip Ql (U) Trace Abnormal Negative [facility] Nitrite Ql (U) Negative Negative [facility] pH (U) 6.0 [pH] 5.0 - 8.0 [facility] Protein (U) [Mass/Vol] Negative Negative [facility] Specific gravity (U) [Rel density] 1.015 1.005 - 1.030 [facility] Urobilinogen Ql (U) Negative Negative [facility] XR Foot - right AP and Later al and obliqueon 03-06-2024 IMPRESSION: No acute osseous abnormality or radiopaque foreign body. Forming Operator: [facility] Transcribe Date/Time: Mar 06 2024 6:26A Dictated by : DON MELLO MD This examination was interpreted and the report reviewed and electronically signed by: DON MELLO MD on Mar 06 2024 6:27AM EST [facility] * * *Final Report* * * DATE OF EXAM: Mar 03 2024 4:11PM RMX [id number] - XR FOOT 3V AP/LAT/OBL RT / PROCEDURE REASON: Laceration of dorsum of right foot * * * * Physician Interpretation * * * * XR FOOT 3V AP/LAT/OBL RT Ordering Physician: YOVANA STEWART RIGHT FOOT 3 VIEWS Clinical Statement: Laceration dorsum of right foot. Comparison 11/02/2023 FINDINGS: No fracture or dislocation. The osseous structures are intact. The alignment is anatomic. No radiopaque foreign body. Atherosclerotic vascular calcifications. Minimal degenerative change. [facility] Provider, Amarilys Vaughn - 03/06/2024 * * *Final Report* * * DATE OF EXAM: Mar 03 2024 4:11PM RMX [id number] - XR FOOT 3V AP/LAT/OBL RT / PROCEDURE REASON: Laceration of dorsum of right foot * * * * Physician Interpretation * * * * XR FOOT 3V AP/LAT/OBL RT Ordering Physician: YOVANA STEWART RIGHT FOOT 3 VIEWS Clinical Statement: Laceration dorsum of right foot. Comparison 11/02/2023 FINDINGS: No fracture or dislocation. The osseous structures are intact. The alignment is anatomic. No radiopaque foreign body. Atherosclerotic vascular calcifications. Minimal degenerative change. IMPRESSION IMPRESSION: No acute osseous abnormality or radiopaque foreign body. Forming Operator: [facility] Transcribe Date/Time: Mar 06 2024 6:26A Dictated by : DON MELLO MD This examination was interpreted and the report reviewed and electronically signed by: DON MELLO MD on Mar 06 2024 6:27AM EST [facility] XR Foot - right AP and Later al and obliqueOrdered By: [facility] Provider on 03-06-2024 [facility] XR Foot - right AP and Later al and obliqueon 03-03-2024 Radiology Study observation (narrative) [facility] CNCOon 01-28-2024 CNCO Letter Text Normal [facility] CNPNon 01-24-2024 CNPN Telephone (AGSPINE3) ----- DOMINIC JIMENEZ ([id number]) 1970 F Date Time Provider Department 01/24/24 GUICHO RAYGOZA [facility] During your visit today, we recorded the following information about you: Guicho Raygoza LMT 01/24/2024 1:37 PM Signed INSURANCE CO. ID # GROUP # CO-PAY DEDUCTIBLE COINSUR. OUT OF POCKET MAX PRIOR AUTH REQU'D LIMITATIONS REFERENCE # SPOKE TO: Pad[employer] PPO [id number] David Burgos PATIENT DOES NOT HAVE CHIROPRACTIC BENEFITS Is this a Medicare or Medicaid product? No Does this follow Medicare guidelines? No Is this a [employer] product? No Does this require clinical submission through [facility]? NA Chiropractor: Dr. Albright Contracted: Chiropractic benefits: Are the billable benefits a HARD LIMIT? If yes, how do we ask for more visits? Fax: Mail: Phone: Website: Ask for the managed care department for benefits Be sure to ask: Are these supervised or unsupervised therapeutic modalities covered if billed by a chiropractor? CPT CODE NAME COVERED? 24860 Manual manipulations spine 1-2 49769 47125 Manual manipulations spine 3-4 Manual manipulations spine 5 46476 Manual manipulations of extremities 99619 Hot/cold packs 86818 Mechanical traction 61401 Electrical stimulation 38863 Therapeutic exercises 09441 Neuromuscular re-education 04398 41844 Dry needling 1-2 Muscles Dry needling 3-4 muscles 48319 Massage therapy 45044 Manual therapy 40873 Acupuncture < 15 minutes 30382 06510 73576 Acupuncture > 15 minutes Acupuncture with stim < 15 minutes Acupuncture with stim > 15 minutes LAUREL Gonzalez Stephanie A, LMT 01/27/2024 7:53 AM Signed Patient LVM to update insurance information Contacted patient back and had to LVM LAUREL Little Stephanie A, LMT 01/28/2024 3:56 PM Signed Call patient to update insurance information LAUREL Little Stephanie A, LMT 01/29/2024 3:15 PM Signed Patient is changing healthcare coverage and wants to hold off on chiro care until she has new insurance LAUREL Little Aleis L, LMT 04/08/2024 9:23 AM Signed INSURANCE CO. ID # GROUP # CO-PAY DEDUCTIBLE COINSUR. OUT OF POCKET MAX PRIOR AUTH REQU'D LIMITATIONS REFERENCE # SPOKE TO: [employer] [id number] $50 $9,450 [employer] [id number] Colette Is this a Medicare or Medicaid product? No Does this follow Medicare guidelines? No Is this a [employer] product? No Does this require clinical submission through [facility]? NA Chiropractor: Dr. Albright Contracted: Yes Chiropractic benefits: In network Are the billable benefits a HARD LIMIT? Yes If NO, how do we ask for more visits? Fax: Mail: Phone: Website: Ask for the managed care department for benefits Be sure to ask: Are these supervised or unsupervised therapeutic modalities covered if billed by a chiropractor? CPT CODE NAME COVERED? 00618 Manual manipulations spine 1-2 Y 09909 80758 Manual manipulations spine 3-4 Manual manipulations spine 5 Y Y 29491 Manual manipulations of extremities Y 51905 Hot/cold packs 46305 Mechanical traction Y (covered at 70%) 82917 Electrical stimulation Y (covered at 70%) 54512 Therapeutic exercises Y (covered at 70%) 74342 Neuromuscular re-education Y (covered at 70%) Dry needling 1-2 Muscles Dry needling 3-4 muscles 63241 Massage therapy 55415 Manual therapy Y (covered at 70%) 86100 Acupuncture < 15 minutes 97000 64678 37277 Acupuncture > 15 minutes Acupuncture with stim < 15 minutes Acupuncture with stim > 15 minutes Philip Levine LMT Allergies As of Date: 01/24/2024 (No Known Allergies) Date Reviewed: 01/03/2024 Reviewed by: Teodora Mckinnon LPN - Fully Assessed Reason for Visit: Insurance Authorization [[id number]] Cmt: Chiro 2023 Prescriptions as of 04/08/2024 - DULoxetine (CYMBALTA) 60 mg capsule Take 1 capsule by mouth two times a day. - citalopram (CELEXA) 20 mg tablet Take 1 tablet by mouth once daily. - traZODone (DESYREL) 100 mg tablet Take 2 tablets by mouth daily at bedtime. - tiZANidine HCl (ZANAFLEX) 4 mg capsule Take by mouth. - methocarbamol (ROBAXIN) 500 mg tablet Take 1 tablet by mouth three times a day. - gabapentin (NEURONTIN) 300 mg capsule Take 1 capsule by mouth three times a day for 180 days. - progesterone micronized (PROMETRIUM) 100 mg capsule Take by mouth. - gabapentin (NEURONTIN) 100 mg capsule Take 1 capsule by mouth at bedtime as needed for up to 90 days. - rifAXIMin (XIFAXAN) 550 mg tablet Take 550 mg by mouth twice daily. - GEMTESA 75 mg tablet Take 1 tablet by mouth every afternoon. - lactulose 10 gram/15 mL solution Take 10 g by mouth three times daily as needed. - ascorbic acid, vitamin C, (VITAMIN C) 500 mg tablet Take 500 mg by mouth once daily. (more content not included)... Normal [facility] CNPNon 12-04-2023 CNPN Telephone (AGSPINE3) ----- DOMINIC JIMENEZ ([id number]) 1970 F Date Time Provider Department 12/04/23 TERE PAINTER AGSPINE3 During your visit today, we recorded the following information about you: Chris Case 12/04/2023 7:18 AM Signed ----- Message from Hernandez Garduno sent at 12/03/2023 4:59 PM EST ----- Regarding: Spine and Pain / Painter / Scheduling Subject Line Format: Medicine / [Provider Name] / [Issue] Patient: Dominic Jimenez Date of : 1970 Primary Care Provider: Aure Carlton APRN.OFFAL ICER POULTRY Patient has been identified by name and Date of (Y/N): Y Patient: Dominic Jimenez Date of : 1970 Provider for this encounter: Tere Painter MD Reason for the call/escalation: Patient would like to schedule an appointment with Dr. Painter. Per tool, please reach out to patient for scheduling. Was Patient Referred to [facility]/Seek Emergency Treatment (Y/N): N Did Patient Agree (Y/N): N/A Was An Attempt Made To Transfer The Patient To The Office (Y/N): N Were You Able To Reach Someone At The Office (Y/N): N/A If Yes - Patient Was Transferred To (Caregivers Name): N/A If No - Which [facility] Leadership Sewing Demonstrator Did You Speak With Regarding This Patient: N/A Was an appointment scheduled (Y/N): N Reason patient was requesting visit (RFV/signs and symptoms/diagnosis) : Scheduling Person calling if other than patient: Self Return call to if other than patient: Self Best contact number: [phone] Thank you, Hernandez Garduno December 03, 2023 4:59 PM Allergies As of Date: 12/04/2023 (No Known Allergies) Date Reviewed: 11/17/2023 Reviewed by: Elodia Espinal APRN.OFFAL ICER POULTRY - Fully Assessed Reason for Visit: Returning Patient's Call [408] Prescriptions as of 12/04/2023 - citalopram (CELEXA) 20 mg tablet Take 1 tablet by mouth once daily. - traZODone (DESYREL) 100 mg tablet Take 2 tablets by mouth daily at bedtime. - albuterol HFA (PROVENTIL HFA) 90 mcg/actuation inhaler Inhale 1-2 Puffs as instructed four times a day as needed for wheezing/shortness of breath. - benzonatate (TESSALON PERLES) 100 mg capsule Take 1 capsule by mouth three times a day as needed for cough. - dexAMETHasone (DECADRON) 4 mg tablet Take 4 mg by mouth as directed. - methocarbamol (ROBAXIN) 500 mg tablet Take 1 tablet by mouth three times a day. - progesterone micronized (PROMETRIUM) 100 mg capsule Take by mouth. - estradiol (ESTRACE) 0.01 % (0.1 mg/gram) vaginal cream INSERT 1 GRAM VAGINALLY THREE TIMES A WEEK BEFORE BED - gabapentin (NEURONTIN) 100 mg capsule Take 1 capsule by mouth at bedtime as needed for up to 90 days. - rifAXIMin (XIFAXAN) 550 mg tablet Take 550 mg by mouth twice daily. - GEMTESA 75 mg tablet Take 1 tablet by mouth every afternoon. - gabapentin (NEURONTIN) 300 mg capsule Take 300 mg by mouth three times daily. - lactulose 10 gram/15 mL solution Take 10 g by mouth three times daily as needed. - ascorbic acid, vitamin C, (VITAMIN C) 500 mg tablet Take 500 mg by mouth once daily. - cranberry fruit extract (CRANBERRY EXTRACT) 500 mg tab Take 1 tablet by mouth three times daily. - d-mannose 500 mg cap Take 1,000 mg by mouth twice daily. - Magnesium 250 mg tab Take 250 mg by mouth once daily. - glucosamine/chondr paniagua A sod (GLUCOSAMINE-CHONDROITIN) 750-600 mg tab Take 1 tablet by mouth once daily. - Lactobac no.41/Bifidobact no.7 (PROBIOTIC-10 ORAL) Take 1 tablet by mouth once daily. - vitamin B complex (B COMPLEX 1 ORAL) Take 1 tablet by mouth once daily. - DULoxetine (CYMBALTA) 60 mg capsule 1 capsule twice daily. - estradiol 0.01% estriol 0.01% topical cream (CPD) Apply 0.1ml to upper inner arm daily. - PROGESTERONE MISC Dissolve one triturate under the tongue at bedtime. - Milk Thistle 175 mg tab Take 1 tablet by mouth once daily. - cyanocobalamin (VITAMIN B-12) 1,000 mcg tab Take 1 tablet by mouth once daily. - ginkgo biloba leaf extract 60 mg tab Take 1 tablet by mouth once daily. - famotidine (PEPCID) 40 mg tablet Take 40 mg by mouth daily at bedtime. - nadolol (CORGARD) 20 mg tablet Take 20 mg by mouth once daily. For 30 days - urykjdvtjqqg-fxflcqbb-bgr braun k-coenzyme Q-10 (DEKAS PLUS) 200 mcg-1,000 mcg-10 mg chewable tablet Take 1 tablet by mouth once daily. - folic acid 1 mg tablet Take 1 mg by mouth once daily. - pantoprazole DR (PROTONIX) 40 mg tablet Take 40 mg by mouth once daily. - thiamine (VITAMIN B1) 100 mg tablet Take 100 mg by mouth once daily. - cholecalciferol (VITAMIN D3) 5,000 unit tab Take 5,000 Units by mouth once daily. Problem List As Of Date 12/04/2023 Noted Resolved Hallucinations [R44.3] 10/06/2021 11/19/2023 Delirium due to multiple etiologies, acute, hyp*10/07/2021 08/14/2023 Depression [F32.A] (more content not included)... Normal [facility] Albino 11-06-2023 [facility] Telephone (AGSPINE3) ----- NEDDOMINIC ([id number]) 1970 F Date Time Provider Department 11/06/23 TERE PAINTER AGSPINE3 During your visit today, we recorded the following information about you: Radha Elena 11/06/2023 8:32 AM Signed Patient called and left a voicemail asking to make an appointment with Dr. Painter in the [place] office. I have attempted to contact this patient by phone, Left brief message on cell voicemail stating to give us a call back at [phone] to schedule this appointment. *There is a [facility]ON referral made for next year, #[id number], Please use this.* Radha Elena Allergies As of Date: 11/06/2023 (No Known Allergies) Date Reviewed: 11/02/2023 Reviewed by: Aurelio Reyes MD - Fully Assessed Reason for Visit: Returning Patient's Call [408] Appointment [186] Prescriptions as of 11/06/2023 - dexAMETHasone (DECADRON) 4 mg tablet Take 4 mg by mouth as directed. - methocarbamol (ROBAXIN) 500 mg tablet Take 1 tablet by mouth three times a day. - citalopram hydrobromide (CELEXA) 10 mg tablet Take 1.5 tablets by mouth once daily. - traZODone (DESYREL) 150 mg tablet Take 1 tablet by mouth daily at bedtime. - progesterone micronized (PROMETRIUM) 100 mg capsule Take by mouth. - estradiol (ESTRACE) 0.01 % (0.1 mg/gram) vaginal cream INSERT 1 GRAM VAGINALLY THREE TIMES A WEEK BEFORE BED - gabapentin (NEURONTIN) 100 mg capsule Take 1 capsule by mouth at bedtime as needed for up to 90 days. - rifAXIMin (XIFAXAN) 550 mg tablet Take 550 mg by mouth twice daily. - GEMTESA 75 mg tablet Take 1 tablet by mouth every afternoon. - gabapentin (NEURONTIN) 300 mg capsule Take 300 mg by mouth three times daily. - lactulose 10 gram/15 mL solution Take 10 g by mouth three times daily as needed. - ascorbic acid, vitamin C, (VITAMIN C) 500 mg tablet Take 500 mg by mouth once daily. - cranberry fruit extract (CRANBERRY EXTRACT) 500 mg tab Take 1 tablet by mouth three times daily. - d-mannose 500 mg cap Take 1,000 mg by mouth twice daily. - Magnesium 250 mg tab Take 250 mg by mouth once daily. - glucosamine/chondr paniagua A sod (GLUCOSAMINE-CHONDROITIN) 750-600 mg tab Take 1 tablet by mouth once daily. - Lactobac no.41/Bifidobact no.7 (PROBIOTIC-10 ORAL) Take 1 tablet by mouth once daily. - vitamin B complex (B COMPLEX 1 ORAL) Take 1 tablet by mouth once daily. - DULoxetine (CYMBALTA) 60 mg capsule 1 capsule twice daily. - estradiol 0.01% estriol 0.01% topical cream (CPD) Apply 0.1ml to upper inner arm daily. - PROGESTERONE MISC Dissolve one triturate under the tongue at bedtime. - Milk Thistle 175 mg tab Take 1 tablet by mouth once daily. - cyanocobalamin (VITAMIN B-12) 1,000 mcg tab Take 1 tablet by mouth once daily. - ginkgo biloba leaf extract 60 mg tab Take 1 tablet by mouth once daily. - famotidine (PEPCID) 40 mg tablet Take 40 mg by mouth daily at bedtime. - nadolol (CORGARD) 20 mg tablet Take 20 mg by mouth once daily. For 30 days - imryhuncirnt-xhqljffe-zgn braun k-coenzyme Q-10 (DEKAS PLUS) 200 mcg-1,000 mcg-10 mg chewable tablet Take 1 tablet by mouth once daily. - folic acid 1 mg tablet Take 1 mg by mouth once daily. - pantoprazole DR (PROTONIX) 40 mg tablet Take 40 mg by mouth once daily. - thiamine (VITAMIN B1) 100 mg tablet Take 100 mg by mouth once daily. - cholecalciferol (VITAMIN D3) 5,000 unit tab Take 5,000 Units by mouth once daily. Problem List As Of Date 11/06/2023 Noted Resolved Hallucinations [R44.3] 10/06/2021 Delirium due to multiple etiologies, acute, hyp*10/07/2021 08/14/2023 Depression [F32.A] 10/07/2021 Acute metabolic encephalopathy [G93.41] 10/12/2021 08/14/2023 Malnutrition of moderate degree (HCC) [E44.0] 10/31/2021 08/14/2023 Hyperlipidemia [E78.5] 05/08/2023 Alcoholic hepatitis [K70.10] 03/05/2023 08/14/2023 Hepatic cirrhosis (HCC) [K74.60] 07/16/2022 Neuropathy [G62.9] 10/19/2021 Wernicke's disease [E51.2] 03/05/2023 Alcoholic cirrhosis (HCC) [K70.30] Insomnia [G47.00] 09/06/2023 Anxiety [F41.9] 09/06/2023 Encounter Status:Closed by RADHA ELENA on 11/06/23 [facility] CNPN Telephone (AGSPINE2) ----- DOMINIC JIMENEZ ([id number]) 1970 F Date Time Provider Department 11/06/23 CHANTALE SHETH AGSPINE2 During your visit today, we recorded the following information about you: Chantale Sheth LMT 11/06/2023 7:41 AM Signed Patient LVM and asked for a call back Chantale Sheth LMT Allergies As of Date: 11/06/2023 (No Known Allergies) Date Reviewed: 11/02/2023 Reviewed by: Aurelio Reyes MD - Fully Assessed Reason for Visit: Appointment [186] Prescriptions as of 11/06/2023 - dexAMETHasone (DECADRON) 4 mg tablet Take 4 mg by mouth as directed. - methocarbamol (ROBAXIN) 500 mg tablet Take 1 tablet by mouth three times a day. - citalopram hydrobromide (CELEXA) 10 mg tablet Take 1.5 tablets by mouth once daily. - traZODone (DESYREL) 150 mg tablet Take 1 tablet by mouth daily at bedtime. - progesterone micronized (PROMETRIUM) 100 mg capsule Take by mouth. - estradiol (ESTRACE) 0.01 % (0.1 mg/gram) vaginal cream INSERT 1 GRAM VAGINALLY THREE TIMES A WEEK BEFORE BED - gabapentin (NEURONTIN) 100 mg capsule Take 1 capsule by mouth at bedtime as needed for up to 90 days. - rifAXIMin (XIFAXAN) 550 mg tablet Take 550 mg by mouth twice daily. - GEMTESA 75 mg tablet Take 1 tablet by mouth every afternoon. - gabapentin (NEURONTIN) 300 mg capsule Take 300 mg by mouth three times daily. - lactulose 10 gram/15 mL solution Take 10 g by mouth three times daily as needed. - ascorbic acid, vitamin C, (VITAMIN C) 500 mg tablet Take 500 mg by mouth once daily. - cranberry fruit extract (CRANBERRY EXTRACT) 500 mg tab Take 1 tablet by mouth three times daily. - d-mannose 500 mg cap Take 1,000 mg by mouth twice daily. - Magnesium 250 mg tab Take 250 mg by mouth once daily. - glucosamine/chondr paniagua A sod (GLUCOSAMINE-CHONDROITIN) 750-600 mg tab Take 1 tablet by mouth once daily. - Lactobac no.41/Bifidobact no.7 (PROBIOTIC-10 ORAL) Take 1 tablet by mouth once daily. - vitamin B complex (B COMPLEX 1 ORAL) Take 1 tablet by mouth once daily. - DULoxetine (CYMBALTA) 60 mg capsule 1 capsule twice daily. - estradiol 0.01% estriol 0.01% topical cream (CPD) Apply 0.1ml to upper inner arm daily. - PROGESTERONE MISC Dissolve one triturate under the tongue at bedtime. - Milk Thistle 175 mg tab Take 1 tablet by mouth once daily. - cyanocobalamin (VITAMIN B-12) 1,000 mcg tab Take 1 tablet by mouth once daily. - ginkgo biloba leaf extract 60 mg tab Take 1 tablet by mouth once daily. - famotidine (PEPCID) 40 mg tablet Take 40 mg by mouth daily at bedtime. - nadolol (CORGARD) 20 mg tablet Take 20 mg by mouth once daily. For 30 days - iywmkfhxweqy-vdusbrrm-bbj braun k-coenzyme Q-10 (DEKAS PLUS) 200 mcg-1,000 mcg-10 mg chewable tablet Take 1 tablet by mouth once daily. - folic acid 1 mg tablet Take 1 mg by mouth once daily. - pantoprazole DR (PROTONIX) 40 mg tablet Take 40 mg by mouth once daily. - thiamine (VITAMIN B1) 100 mg tablet Take 100 mg by mouth once daily. - cholecalciferol (VITAMIN D3) 5,000 unit tab Take 5,000 Units by mouth once daily. Problem List As Of Date 11/06/2023 Noted Resolved Hallucinations [R44.3] 10/06/2021 Delirium due to multiple etiologies, acute, hyp*10/07/2021 08/14/2023 Depression [F32.A] 10/07/2021 Acute metabolic encephalopathy [G93.41] 10/12/2021 08/14/2023 Malnutrition of moderate degree (HCC) [E44.0] 10/31/2021 08/14/2023 Hyperlipidemia [E78.5] 05/08/2023 Alcoholic hepatitis [K70.10] 03/05/2023 08/14/2023 Hepatic cirrhosis (HCC) [K74.60] 07/16/2022 Neuropathy [G62.9] 10/19/2021 Wernicke's disease [E51.2] 03/05/2023 Alcoholic cirrhosis (HCC) [K70.30] Insomnia [G47.00] 09/06/2023 Anxiety [F41.9] 09/06/2023 Encounter Status:Closed by CHANTALE SHETH on 11/06/23 [facility] ----- DOMINIC JIMENEZ ([id number]) 1970 F Date Time Provider Department 11/01/23 CHANTALE SHETH [employer] [facility] [employer] [employer] During your visit today, we recorded the following information about you: Chantale Sheth, T 11/01/2023 2:10 PM Signed LVM explaining to patient I contacted insurance and she does not have chiropractic coverage with insurance. Patient also is being sent to Dr. Albright for acupuncture services and provider is currently not performing those services until after 2023. Chantale Sheth LMT Allergies As of Date: 11/01/2023 (No Known Allergies) Date Reviewed: 10/31/2023 Reviewed by: Aure Carlton APRN.OFFAL ICER POULTRY - Fully Assessed Reason for Visit: Appointment [186] Prescriptions as of 11/01/2023 - dexAMETHasone (DECADRON) 4 mg tablet Take 4 mg by mouth as directed. - methocarbamol (ROBAXIN) 500 mg tablet Take 1 tablet by mouth three times a day. - citalopram hydrobromide (CELEXA) 10 mg tablet Take 1.5 tablets by mouth once daily. - traZODone (DESYREL) 150 mg tablet Take 1 tablet by mouth daily at bedtime. - progesterone micronized (PROMETRIUM) 100 mg capsule Take by mouth. - estradiol (ESTRACE) 0.01 % (0.1 mg/gram) vaginal cream INSERT 1 GRAM VAGINALLY THREE TIMES A WEEK BEFORE BED - gabapentin (NEURONTIN) 100 mg capsule Take 1 capsule by mouth at bedtime as needed for up to 90 days. - rifAXIMin (XIFAXAN) 550 mg tablet Take 550 mg by mouth twice daily. - GEMTESA 75 mg tablet Take 1 tablet by mouth every afternoon. - gabapentin (NEURONTIN) 300 mg capsule Take 300 mg by mouth three times daily. - lactulose 10 gram/15 mL solution Take 10 g by mouth three times daily as needed. - ascorbic acid, vitamin C, (VITAMIN C) 500 mg tablet Take 500 mg by mouth once daily. - cranberry fruit extract (CRANBERRY EXTRACT) 500 mg tab Take 1 tablet by mouth three times daily. - d-mannose 500 mg cap Take 1,000 mg by mouth twice daily. - Magnesium 250 mg tab Take 250 mg by mouth once daily. - glucosamine/chondr paniagua A sod (GLUCOSAMINE-CHONDROITIN) 750-600 mg tab Take 1 tablet by mouth once daily. - Lactobac no.41/Bifidobact no.7 (PROBIOTIC-10 ORAL) Take 1 tablet by mouth once daily. - vitamin B complex (B COMPLEX 1 ORAL) Take 1 tablet by mouth once daily. - DULoxetine (CYMBALTA) 60 mg capsule 1 capsule twice daily. - estradiol 0.01% estriol 0.01% topical cream (CPD) Apply 0.1ml to upper inner arm daily. - PROGESTERONE MISC Dissolve one triturate under the tongue at bedtime. - Milk Thistle 175 mg tab Take 1 tablet by mouth once daily. - cyanocobalamin (VITAMIN B-12) 1,000 mcg tab Take 1 tablet by mouth once daily. - ginkgo biloba leaf extract 60 mg tab Take 1 tablet by mouth once daily. - famotidine (PEPCID) 40 mg tablet Take 40 mg by mouth daily at bedtime. - nadolol (CORGARD) 20 mg tablet Take 20 mg by mouth once daily. For 30 days - plzhilftdbyz-akhagpks-uaw braun k-coenzyme Q-10 (DEKAS PLUS) 200 mcg-1,000 mcg-10 mg chewable tablet Take 1 tablet by mouth once daily. - folic acid 1 mg tablet Take 1 mg by mouth once daily. - pantoprazole DR (PROTONIX) 40 mg tablet Take 40 mg by mouth once daily. - thiamine (VITAMIN B1) 100 mg tablet Take 100 mg by mouth once daily. - cholecalciferol (VITAMIN D3) 5,000 unit tab Take 5,000 Units by mouth once daily. Problem List As Of Date 11/01/2023 Noted Resolved Hallucinations [R44.3] 10/06/2021 Delirium due to multiple etiologies, acute, hyp*10/07/2021 08/14/2023 Depression [F32.A] 10/07/2021 Acute metabolic encephalopathy [G93.41] 10/12/2021 08/14/2023 Malnutrition of moderate degree (HCC) [E44.0] 10/31/2021 08/14/2023 Hyperlipidemia [E78.5] 05/08/2023 Alcoholic hepatitis [K70.10] 03/05/2023 08/14/2023 Hepatic cirrhosis (HCC) [K74.60] 07/16/2022 Neuropathy [G62.9] 10/19/2021 Wernicke's disease [E51.2] 03/05/2023 Alcoholic cirrhosis (HCC) [K70.30] Insomnia [G47.00] 09/06/2023 Anxiety [F41.9] 09/06/2023 Encounter Status:Closed by CHANTALE SHETH on 11/01/23 [facility] CNPN Telephone (AGSPINE2) ----- DOMINIC JIMENEZ ([id number]) 1970 F Date Time Provider Department 11/01/23 CHANTALE SHETH AGSPINE2 During your visit today, we recorded the following information about you: Chantale Sheth, LMT 11/05/2023 3:55 PM Addendum PATIENT WOULD LIKE US TO CONTACT INSURANCE AGAIN SHE CALLED HERSELF AND THEY GAVE HER DIFFERENT INFORMATION [phone] Clark Xavi Jimenez [birth year] INSURANCE CO. ID # GROUP # CO-PAY DEDUCTIBLE COINSUR. OUT OF POCKET MAX PRIOR AUTH REQU'D LIMITATIONS REFERENCE # SPOKE TO: [employer] [facility] NO [facility] COVERAGE [id number] - - - - - - [id number] YAW Teran Is this a Medicare or Medicaid product? N Does this follow Medicare guidelines? N Is this a [employer] product? N Does this require clinical submission through [facility]? N Chiropractor: Dr. Albright Contracted: Y Chiropractic benefits: In network Are the billable benefits a HARD LIMIT? Y If yes, how do we ask for more visits? Fax: Mail: Phone: Website: Ask for the managed care department for benefits Be sure to ask: Are these supervised or unsupervised therapeutic modalities covered if billed by a chiropractor? CPT CODE NAME COVERED? 56587 Manual manipulations spine 1-2 85881 47712 Manual manipulations spine 3-4 Manual manipulations spine 5 52808 Manual manipulations of extremities 63528 Hot/cold packs 82029 Mechanical traction 20151 Electrical stimulation 17925 Therapeutic exercises 76734 Neuromuscular re-education 42884 18933 Dry needling 1-2 Muscles Dry needling 3-4 muscles 37833 Massage therapy 06075 Manual therapy 60836 Acupuncture < 15 minutes 41509 78689 20985 Acupuncture > 15 minutes Acupuncture with stim < 15 minutes Acupuncture with stim > 15 minutes Chantale Sheth LMT Allergies As of Date: 11/01/2023 (No Known Allergies) Date Reviewed: 10/31/2023 Reviewed by: Aure Carlton APRN.CNP - Fully Assessed Reason for Visit: Insurance Authorization [[id number]] Cmt: [facility]IRO 2022 Prescriptions as of 11/05/2023 - dexAMETHasone (DECADRON) 4 mg tablet Take 4 mg by mouth as directed. - methocarbamol (ROBAXIN) 500 mg tablet Take 1 tablet by mouth three times a day. - citalopram hydrobromide (CELEXA) 10 mg tablet Take 1.5 tablets by mouth once daily. - traZODone (DESYREL) 150 mg tablet Take 1 tablet by mouth daily at bedtime. - progesterone micronized (PROMETRIUM) 100 mg capsule Take by mouth. - estradiol (ESTRACE) 0.01 % (0.1 mg/gram) vaginal cream INSERT 1 GRAM VAGINALLY THREE TIMES A WEEK BEFORE BED - gabapentin (NEURONTIN) 100 mg capsule Take 1 capsule by mouth at bedtime as needed for up to 90 days. - rifAXIMin (XIFAXAN) 550 mg tablet Take 550 mg by mouth twice daily. - GEMTESA 75 mg tablet Take 1 tablet by mouth every afternoon. - gabapentin (NEURONTIN) 300 mg capsule Take 300 mg by mouth three times daily. - lactulose 10 gram/15 mL solution Take 10 g by mouth three times daily as needed. - ascorbic acid, vitamin C, (VITAMIN C) 500 mg tablet Take 500 mg by mouth once daily. - cranberry fruit extract (CRANBERRY EXTRACT) 500 mg tab Take 1 tablet by mouth three times daily. - d-mannose 500 mg cap Take 1,000 mg by mouth twice daily. - Magnesium 250 mg tab Take 250 mg by mouth once daily. - glucosamine/chondr paniagua A sod (GLUCOSAMINE-CHONDROITIN) 750-600 mg tab Take 1 tablet by mouth once daily. - Lactobac no.41/Bifidobact no.7 (PROBIOTIC-10 ORAL) Take 1 tablet by mouth once daily. - vitamin B complex (B COMPLEX 1 ORAL) Take 1 tablet by mouth once daily. - DULoxetine (CYMBALTA) 60 mg capsule 1 capsule twice daily. - estradiol 0.01% estriol 0.01% topical cream (CPD) Apply 0.1ml to upper inner arm daily. - PROGESTERONE MISC Dissolve one triturate under the tongue at bedtime. - Milk Thistle 175 mg tab Take 1 tablet by mouth once daily. - cyanocobalamin (VITAMIN B-12) 1,000 mcg tab Take 1 tablet by mouth once daily. - ginkgo biloba leaf extract 60 mg tab Take 1 tablet by mouth once daily. - famotidine (PEPCID) 40 mg tablet Take 40 mg by mouth daily at bedtime. - nadolol (CORGARD) 20 mg tablet Take 20 mg by mouth once daily. For 30 days - szdbxnarwsxn-kvragchx-viz braun k-coenzyme Q-10 (DEKAS PLUS) 200 mcg-1,000 mcg-10 mg chewable tablet Take 1 tablet by mouth once daily. - folic acid 1 mg tablet Take 1 mg by mouth once daily. - pantoprazole DR (PROTONIX) 40 mg tablet Take 40 mg by mouth once daily. - thiamine (VITAMIN B1) 100 mg tablet Take 100 mg by mouth once daily. - cholecalciferol (VITAMIN D3) 5,000 unit tab Take 5,000 Units by mouth once daily. Problem List As Of Date 11/01/2023 Noted Resolved Hallucinations [R44.3] 10/06/2021 Delirium due to multiple etiologies, acute, hyp*10/07/2021 08/14/2023 Depression [F32.A] 10/07/2021 Acute metabolic encephalopathy [G93.41] (more content not included)... Normal [facility] 10-01-2023 [facility] Telephone (AGSPINE2) ----- DOMINIC JIMENEZ ([id number]) 1970 F Date Time Provider Department 10/01/23 AUNDREA SHULTZ AGSPINE2 During your visit today, we recorded the following information about you: Taylor Tristan 10/01/2023 8:32 AM Signed LVM for patient to schedule New patient appt with Chiro, ref'd by Aundrea. Left [phone] # and ext [phone]. Taylor Herring 10/07/2023 10:17 AM Signed 2nd attempt to contact patient, LVM to schedule New patient appt with Chiro. Taylor Tristan Allergies As of Date: 10/01/2023 (No Known Allergies) Date Reviewed: 09/25/2023 Reviewed by: Aundrea Shultz APRN.OFFAL ICER POULTRY - Fully Assessed Reason for Visit: Appointment [186] Cmt: New patient - Chiro Prescriptions as of 10/07/2023 - tiZANidine (ZANAFLEX) 2 mg tablet Take 1 tablet by mouth three times a day as needed. - citalopram hydrobromide (CELEXA) 10 mg tablet Take 1 tablet by mouth once daily. - traZODone (DESYREL) 150 mg tablet Take 1 tablet by mouth daily at bedtime. - progesterone micronized (PROMETRIUM) 100 mg capsule Take by mouth. - estradiol (ESTRACE) 0.01 % (0.1 mg/gram) vaginal cream INSERT 1 GRAM VAGINALLY THREE TIMES A WEEK BEFORE BED - gabapentin (NEURONTIN) 100 mg capsule Take 1 capsule by mouth at bedtime as needed for up to 90 days. - rifAXIMin (XIFAXAN) 550 mg tablet Take 550 mg by mouth twice daily. - GEMTESA 75 mg tablet Take 1 tablet by mouth every afternoon. - gabapentin (NEURONTIN) 300 mg capsule Take 300 mg by mouth three times daily. - lactulose 10 gram/15 mL solution Take 10 g by mouth three times daily as needed. - ascorbic acid, vitamin C, (VITAMIN C) 500 mg tablet Take 500 mg by mouth once daily. - cranberry fruit extract (CRANBERRY EXTRACT) 500 mg tab Take 1 tablet by mouth three times daily. - d-mannose 500 mg cap Take 1,000 mg by mouth twice daily. - Magnesium 250 mg tab Take 250 mg by mouth once daily. - glucosamine/chondr paniagua A sod (GLUCOSAMINE-CHONDROITIN) 750-600 mg tab Take 1 tablet by mouth once daily. - Lactobac no.41/Bifidobact no.7 (PROBIOTIC-10 ORAL) Take 1 tablet by mouth once daily. - vitamin B complex (B COMPLEX 1 ORAL) Take 1 tablet by mouth once daily. - DULoxetine (CYMBALTA) 60 mg capsule 1 capsule twice daily. - estradiol 0.01% estriol 0.01% topical cream (CPD) Apply 0.1ml to upper inner arm daily. - PROGESTERONE MISC Dissolve one triturate under the tongue at bedtime. - Milk Thistle 175 mg tab Take 1 tablet by mouth once daily. - cyanocobalamin (VITAMIN B-12) 1,000 mcg tab Take 1 tablet by mouth once daily. - ginkgo biloba leaf extract 60 mg tab Take 1 tablet by mouth once daily. - famotidine (PEPCID) 40 mg tablet Take 40 mg by mouth daily at bedtime. - nadolol (CORGARD) 20 mg tablet Take 20 mg by mouth once daily. For 30 days - lwpgfjsppbft-ynhlxzsm-cai braun k-coenzyme Q-10 (DEKAS PLUS) 200 mcg-1,000 mcg-10 mg chewable tablet Take 1 tablet by mouth once daily. - folic acid 1 mg tablet Take 1 mg by mouth once daily. - pantoprazole DR (PROTONIX) 40 mg tablet Take 40 mg by mouth once daily. - thiamine (VITAMIN B1) 100 mg tablet Take 100 mg by mouth once daily. - cholecalciferol (VITAMIN D3) 5,000 unit tab Take 5,000 Units by mouth once daily. Problem List As Of Date 10/01/2023 Noted Resolved Hallucinations [R44.3] 10/06/2021 Delirium due to multiple etiologies, acute, hyp*10/07/2021 08/14/2023 Depression [F32.A] 10/07/2021 Acute metabolic encephalopathy [G93.41] 10/12/2021 08/14/2023 Malnutrition of moderate degree (HCC) [E44.0] 10/31/2021 08/14/2023 Hyperlipidemia [E78.5] 05/08/2023 Alcoholic hepatitis [K70.10] 03/05/2023 08/14/2023 Hepatic cirrhosis (HCC) [K74.60] 07/16/2022 Peripheral nerve disease [G62.9] 08/16/2022 Wernicke's disease [E51.2] 03/05/2023 Alcoholic cirrhosis (HCC) [K70.30] Insomnia [G47.00] 09/06/2023 Anxiety [F41.9] 09/06/2023 Encounter Status:Closed by TAYLOR TRISTAN on 10/01/23 [facility] 09-26-2023 CNPN Telephone (AGSPINE3) ----- DOMINIC JIMENEZ ([id number]) 1970 F Date Time Provider Department 09/26/23 AUNDREA SHULTZ [facility] During your visit today, we recorded the following information about you: Reina Cole 09/26/2023 9:18 AM Signed Called and left VM for patient to schedule follow up appointments. Reina Mcintosh 10/04/2023 10:08 AM Signed 2nd attempt, LVM Reina Cole Allergies As of Date: 09/26/2023 (No Known Allergies) Date Reviewed: 09/25/2023 Reviewed by: Aundrea Shultz, VERNA.OFFAL ICER POULTRY - Fully Assessed Reason for Visit: future appointments [Other] Prescriptions as of 10/04/2023 - tiZANidine (ZANAFLEX) 2 mg tablet Take 1 tablet by mouth three times a day as needed. - citalopram hydrobromide (CELEXA) 10 mg tablet Take 1 tablet by mouth once daily. - traZODone (DESYREL) 150 mg tablet Take 1 tablet by mouth daily at bedtime. - progesterone micronized (PROMETRIUM) 100 mg capsule Take by mouth. - estradiol (ESTRACE) 0.01 % (0.1 mg/gram) vaginal cream INSERT 1 GRAM VAGINALLY THREE TIMES A WEEK BEFORE BED - gabapentin (NEURONTIN) 100 mg capsule Take 1 capsule by mouth at bedtime as needed for up to 90 days. - rifAXIMin (XIFAXAN) 550 mg tablet Take 550 mg by mouth twice daily. - GEMTESA 75 mg tablet Take 1 tablet by mouth every afternoon. - gabapentin (NEURONTIN) 300 mg capsule Take 300 mg by mouth three times daily. - lactulose 10 gram/15 mL solution Take 10 g by mouth three times daily as needed. - ascorbic acid, vitamin C, (VITAMIN C) 500 mg tablet Take 500 mg by mouth once daily. - cranberry fruit extract (CRANBERRY EXTRACT) 500 mg tab Take 1 tablet by mouth three times daily. - d-mannose 500 mg cap Take 1,000 mg by mouth twice daily. - Magnesium 250 mg tab Take 250 mg by mouth once daily. - glucosamine/chondr paniagua A sod (GLUCOSAMINE-CHONDROITIN) 750-600 mg tab Take 1 tablet by mouth once daily. - Lactobac no.41/Bifidobact no.7 (PROBIOTIC-10 ORAL) Take 1 tablet by mouth once daily. - vitamin B complex (B COMPLEX 1 ORAL) Take 1 tablet by mouth once daily. - DULoxetine (CYMBALTA) 60 mg capsule 1 capsule twice daily. - estradiol 0.01% estriol 0.01% topical cream (CPD) Apply 0.1ml to upper inner arm daily. - PROGESTERONE MISC Dissolve one triturate under the tongue at bedtime. - Milk Thistle 175 mg tab Take 1 tablet by mouth once daily. - cyanocobalamin (VITAMIN B-12) 1,000 mcg tab Take 1 tablet by mouth once daily. - ginkgo biloba leaf extract 60 mg tab Take 1 tablet by mouth once daily. - famotidine (PEPCID) 40 mg tablet Take 40 mg by mouth daily at bedtime. - nadolol (CORGARD) 20 mg tablet Take 20 mg by mouth once daily. For 30 days - rtqldzbvsitb-yiztehgg-gfa braun k-coenzyme Q-10 (DEKAS PLUS) 200 mcg-1,000 mcg-10 mg chewable tablet Take 1 tablet by mouth once daily. - folic acid 1 mg tablet Take 1 mg by mouth once daily. - pantoprazole DR (PROTONIX) 40 mg tablet Take 40 mg by mouth once daily. - thiamine (VITAMIN B1) 100 mg tablet Take 100 mg by mouth once daily. - cholecalciferol (VITAMIN D3) 5,000 unit tab Take 5,000 Units by mouth once daily. Problem List As Of Date 09/26/2023 Noted Resolved Hallucinations [R44.3] 10/06/2021 Delirium due to multiple etiologies, acute, hyp*10/07/2021 08/14/2023 Depression [F32.A] 10/07/2021 Acute metabolic encephalopathy [G93.41] 10/12/2021 08/14/2023 Malnutrition of moderate degree (HCC) [E44.0] 10/31/2021 08/14/2023 Hyperlipidemia [E78.5] 05/08/2023 Alcoholic hepatitis [K70.10] 03/05/2023 08/14/2023 Hepatic cirrhosis (HCC) [K74.60] 07/16/2022 Peripheral nerve disease [G62.9] 08/16/2022 Wernicke's disease [E51.2] 03/05/2023 Alcoholic cirrhosis (HCC) [K70.30] Insomnia [G47.00] 09/06/2023 Anxiety [F41.9] 09/06/2023 Encounter Status:Closed by REINA COLE on 09/26/23 Normal [facility] XR Foot - right AP and Later al and obliqueon 09-09-2023 IMPRESSION: No acute fractures. Forming Operator: PSCB Transcribe Date/Time: Sep 09 2023 8:02A Dictated by : LOIS PUENTE MD This examination was interpreted and the report reviewed and electronically signed by: LOIS PUENTE MD on Sep 09 2023 8:03AM [facility] * * *Final Report* * * DATE OF EXAM: Sep 08 2023 4:00PM RMX [id number] - XR FOOT 3V AP/LAT/OBL RT / PROCEDURE REASON: Pain of right foot * * * * Physician Interpretation * * * * XR FOOT 3V AP/LAT/OBL RT Ordering Physician: CR MACE 09/08/2023 4:00 PM RIGHT FOOT Clinical Statement: Right foot pain, recent injury FINDINGS: 3 views of the right foot were obtained and compared to a previous study dated 05/21/2023. The osseous structures are intact. There are no acute fractures. [facility] Provider, Amarilys Vaughn - 09/09/2023 * * *Final Report* * * DATE OF EXAM: Sep 08 2023 4:00PM [id number] [id number] - XR FOOT 3V AP/LAT/OBL RT / PROCEDURE REASON: Pain of right foot * * * * Physician Interpretation * * * * XR FOOT 3V AP/LAT/OBL RT Ordering Physician: CR MACE 09/08/2023 4:00 PM RIGHT FOOT Clinical Statement: Right foot pain, recent injury FINDINGS: 3 views of the right foot were obtained and compared to a previous study dated 05/21/2023. The osseous structures are intact. There are no acute fractures. IMPRESSION IMPRESSION: No acute fractures. Forming Operator: PSCB Transcribe Date/Time: Sep 09 2023 8:02A Dictated by : LOIS PUENTE MD This examination was interpreted and the report reviewed and electronically signed by: LOIS PUENTE MD on Sep 09 2023 8:03AM EST [facility] XR Foot - right AP and Later al and obliqueOrdered By: Ccf Provider on 09-09-2023 [facility] XR Foot - right AP and Later al and obliqueon 09-08-2023 Radiology Study observation (narrative) [facility] Basophil percentageOrdered B y: Jerod Ba on 07-05-2023 Testosterone [Mass/Vol] 20.47 ng/dL [facility] Comment on above: CENTRAL 90% REFERENC E RANGES MALE AGE <50 197.44 - 669.58 ng/dL MALE AGE > or = 50 187.72 - 684.19 ng/dL FEMALE AGE <50 8.38 - 35.01 ng/dL FEMALE AGE > or = 50 <7.00 - 35.92 ng/dL Effective as of 06/13/21 Serum or plasma estradiol (E 2) measurement (mass/volume)Ordered By: Jerod Ba on 07-05-2023 E2 [Mass/Vol] 35.3 pg/mL [facility] Comment on above: NORMAL REFERENCE RAN GES FEMALE FOLLICULAR 21.4 - 164.8 pg/mL MID-CYCLE PEAK 49.9 - 367.2 pg/mL LUTEAL 40.2 - 259.0 pg/mL POST-MENOPAUSAL ON MHT <11.0 - 462.1 pg/mL NOT ON MHT <11.0 - 58.3 pg/mL MALE <11.0 - 52.5 pg/mL NOTE:Clouli HAS CONFIRMED THE DRUG FULVETRANT (FASLODEX) MAY CAUSE FALSELY ELEVATED ESTRADIOL RESULTS WHEN USING THIS TEST METHOD. IF PATIENT IS TAKING FULVESTRANT AN ALTERNATIVE METHOD SHOULD BE USED TO DETERMINE ESTRADIOL CONCENTRATION. Serum or plasma progesterone measurement (mass/volume)Ordered By: Jerod Ba on 07-05-2023 Progesterone [Mass/Vol] 1.87 ng/mL See Comment [facility] Comment on above: Progesterone Referen ce Table: UNITS Female: Follicular 0.15 - 1.40 ng/mL Luteal 3.34 - 25.56 ng/mL Mid-luteal 4.44 - 28.03 ng/mL Postmenopausal 0.0 - 0.73 ng/mL : 1st Trimester 11.22 - 90.00 ng/mL 2nd Trimester 25.55 - 89.40 ng/mL 3rd Trimester 48.40 -422.50 ng/mL CT ABD/PELVIS W/ IV CONTRAST ONLYon 05-30-2023 CT ABD/PELVIS W/ IV CONTRAST ONLY ORIGINAL EXAMINATION: CT OF THE ABDOMEN AND PELVIS WITH CONTRAST05/30/2023 3:18 pm TECHNIQUE: CT of the abdomen and pelvis was performed with the administration of intravenous contrast. Multiplanar reformatted images are provided for review. Automated exposure control, iterative reconstruction, and/or weight based adjustment of the mA/kV was utilized to reduce the radiation dose to as low as reasonably achievable. COMPARISON: Abdominal ultrasound 09/20/2021 HISTORY: ORDERING SYSTEM PROVIDED HISTORY: Reason for Exam: fall yesterday, generalized R chest and abdomen pain Alcoholic liver disease. RUQ pain after blunt trauma. FINDINGS: The liver is enlarged up to 22.9 cm. The contour is nodular. Right lobe too small to characterize hypodensity is most likely a hepatic cyst. No suspicious hepatic lesions. Splenomegaly up to 17.8 cm. Layering hyperdensity within the gallbladder representing sludge and/or stones. Pancreas and bilateral adrenal glands are unremarkable. The kidneys enhance symmetrically without evidence of hydronephrosis or suspicious lesions. Renal cortical scarring, most notably on right posteriorly. The urinary bladder is without wall thickening or focal mass. 5.8 cm right-sided adnexal lesion attenuating to approximately 9.8 Hounsfield units. Unremarkable stomach. Nondilated small bowel. No small bowel wall thickening. Diverticulosis, mild most notably involving the sigmoid colon; no findings concerning for diverticulitis. Noninflamed appendix. Calcific density material within the proximal ascending colon. Nonspecific infiltrative stranding and irregular soft tissue density tracking inferiorly from the anterior pararenal spaces bilaterally to the paracolic gutters. This is most prominent on the right adjacent to the ascending colon. No drainable fluid collection. No free air within the abdomen or pelvis. 1.1 cm peripancreatic lymph node (image 40, series 4). Prominent retroperitoneal lymph nodes are within limits of size, up to 0.9 cm para-aortic (image 61, series 4). Nonaneurysmal aortoiliac arteries. No acute osseous abnormality. No aggressive appearing osseous lesions. No acute abnormality within the partially visualized lower thorax. Bibasilar dependent atelectatic change. Dense mitral annular calcifications. IMPRESSION: Nonspecific infiltrative stranding and irregular soft tissue density tracking within the mesenteric fat inferiorly from the anterior pararenal space bilaterally to the paracolic gutters. This is seen adjacent to areas of large bowel including the right hepatic flexure. Findings are indeterminate, and may represent bowel injury with adjacent inflammatory change or possible peritoneal disease in the setting of malignancy. Recommend follow-up to demonstrate stability/resolution. 1.1 cm peripancreatic lymph node may be reactive or hyperplastic. Hepatosplenomegaly, with a nodular liver contour consistent with cirrhosis. No suspicious hepatic lesions. 5.8 cm right-sided adnexal lesion; this is most consistent with an ovarian cyst and follow-up is recommended with pelvic ultrasound in 6-12 months. I have personally reviewed the images of this examination and agree with the resident's findings and interpretation. Interpreted by: Bert Kelly MD Preliminary Report By: Clark Claros Electronically signed By Bert Kelly MD Dictated Date: 05/30/2023 3:20:47 PM Prelim Date: 05/30/2023 3:55:38 PM Sign Date: 05/30/2023 3:55:38 PM Ordering Provider: [facility] ([place]) XR CHEST 2 VIEWSon 3 XR CHEST 2 VIEWS ORIGINAL HISTORY: Fall, right chest pain COMPARISON: 06 January 2023 FINDINGS: The lungs are clear. The cardiac silhouette is within normal size limits. The pulmonary vasculature is unremarkable in appearance. IMPRESSION: Clear lungs. Interpreted by: Oniel Padilla MD Preliminary Report By: Oniel Padilla MD Electronically signed By Oniel Padilla MD Dictated Date: 05/30/2023 3:20:00 PM Prelim Date: 05/30/2023 3:20:37 PM Sign Date: 05/30/2023 3:20:37 PM Ordering Provider: VEDA Cintron [facility] ([place]) XR Foot - right AP and Later al and obliqueon 05-22-2023 IMPRESSION: No acute osseous abnormality Forming Operator: STACY Transcribe Date/Time: May 22 2023 7:07A Dictated by : DON MELLO MD This examination was interpreted and the report reviewed and electronically signed by: DON MELLO MD on May 22 2023 7:16AM EST [facility] * * *Final Report* * * DATE OF EXAM: May 21 2023 12:55PM [id number] [id number] - XR FOOT 3V AP/LAT/OBL RT / PROCEDURE REASON: Contusion of right foot, initial encounter * * * * Physician Interpretation * * * * XR FOOT 3V AP/LAT/OBL RT Ordering Physician: GRETCHEN ANDERSEN RIGHT FOOT 3 VIEWS Clinical Statement: Contusion of right foot, initial encounter FINDINGS: No fracture or dislocation. The osseous structures are intact. The alignment is anatomic. Mild degenerative change. [facility] Provider, Amarilys Vaughn - 05/22/2023 * * *Final Report* * * DATE OF EXAM: May 21 2023 12:55PM [id number] [id number] - XR FOOT 3V AP/LAT/OBL RT / PROCEDURE REASON: Contusion of right foot, initial encounter * * * * Physician Interpretation * * * * XR FOOT 3V AP/LAT/OBL RT Ordering Physician: GRETCHEN ANDERSEN RIGHT FOOT 3 VIEWS Clinical Statement: Contusion of right foot, initial encounter FINDINGS: No fracture or dislocation. The osseous structures are intact. The alignment is anatomic. Mild degenerative change. IMPRESSION IMPRESSION: No acute osseous abnormality Forming Operator: [facility] Transcribe Date/Time: May 22 2023 7:07A Dictated by : DON MELLO MD This examination was interpreted and the report reviewed and electronically signed by: DON MELLO MD on May 22 2023 7:16AM EST [facility] XR Foot - right AP and Later al and obliqueOrdered By: [facility] and Later al and obliqueon 05-21-2023 Radiology Study observation (narrative) [facility] URINALYSIS, DIPSTICK ONLYon 05-07-2023 Bilirubin Ql (U) Negative Negative [facility] Clarity (Unsp spec) Hazy Abnormal Clear [facility] Color (U) Yellow Yellow [facility] Glucose Test strip (U) [Mass/Vol] Negative Negative [facility] Hemoglobin Ql (U) Negative Negative [facility] Ketones Ql (U) Negative Negative [facility] Leukocyte esterase Test strip Ql (U) 3+ Abnormal Negative [facility] Nitrite Ql (U) Negative Negative [facility] pH (U) 6.0 [pH] 5.0 - 8.0 [facility] Protein (U) [Mass/Vol] Trace Abnormal Negative [facility] Specific gravity (U) [Rel density] 1.015 1.005 - 1.030 [facility] Urobilinogen Ql (U) Trace Abnormal Negative [facility] CNPNon 04-26-2023 CNPN Telephone (AGSPINE1) ----- DOMINIC JIMENEZ ([id number]) 1970 F Date Time Provider Department 04/26/23 TERE PAINTER AGSPINE1 During your visit today, we recorded the following information about you: Deidre Acosta 04/26/2023 12:47 PM Signed Spoke with this patient to see if we could get her scheduled for an in person appt. with Dr. Painter in [place]. The patient stated that she wanted to do a virtual appt. with him to take over her medication from her PCP. I let the patient know that there is not much he will be able to do for her situation through a video call but that is how she would like to proceed. I offered her our next virtual calls for Dr. Painter and APPs she declined and said she spoke with someone earlier who offered her sooner dates that will get back with her. If they don't reach out patient will call us back later. Allergies As of Date: 04/26/2023 (No Known Allergies) Date Reviewed: 04/24/2023 Reviewed by: Teodora Mckinnon LPN - Fully Assessed Reason for Visit: Appointment [186] Prescriptions as of 04/26/2023 - ALPRAZolam (XANAX) 0.25 mg tablet Take 0.25 mg by mouth twice daily as needed. - Gxctkmzhgdlpn-Sznvnynp-Pp tein (MULTIVITAMIN 50 PLUS) tab Take 1 tablet by mouth once daily. - thiamine mononitrate (VITAMIN B1) 100 mg tab 1 tab(s) orally once a day - Milk Thistle 175 mg tab as directed Orally - cyanocobalamin (VITAMIN B-12) 1,000 mcg tab Take 1 tablet by mouth once daily. - ginkgo biloba leaf extract 60 mg tab as directed Orally - Magnesium 200 mg tab 1 tablet with a meal Orally Once a day - glucosamine-chondroitin 500-400 mg capsule 1 tablet with a meal Orally Once a day - melatonin 10 mg cap 2 tab(s) orally once a day (at bedtime) - famotidine (PEPCID) 40 mg tablet Take 40 mg by mouth daily at bedtime. - tiZANidine (ZANAFLEX) 2 mg tablet TAKE 1 TO 2 TABLETS BY MOUTH EVERY 8 HOURS NEEDED FOR MUSCLE SPASM - DULoxetine (CYMBALTA) 60 mg capsule - doxycycline hyclate (VIBRAMYCIN) 100 mg capsule TAKE 1 CAPSULE BY MOUTH TWICE DAILY FOR 10 DAYS - gabapentin (NEURONTIN) 300 mg capsule Take 300 mg by mouth. - gabapentin (NEURONTIN) 100 mg capsule gabapentin 100 mg capsule TAKE 1 CAPSULE BY MOUTH TWICE DAILY - lactulose (DUPHALAC, CONSTULOSE) 10 gram/15 mL solution Enulose 10 gram/15 mL oral solution - nadolol (CORGARD) 20 mg tablet Take 20 mg by mouth once daily. For 30 days - VITAMIN B-1, MONONITRATE, 100 mg tab TAKE 1 TABLET BY MOUTH ONCE DAILY FOR 90 DAYS - triamcinolone acetonide (KENALOG) 0.5 % cream APPLY TOPICALLY 2 TO 3 TIMES DAILY FOR 7 DAYS, DO NOT USE FOR MORE THAN 1-2 WEEKS CONSISTENTLY - traZODone (DESYREL) 50 mg tablet Take 0.5 tablets by mouth daily at bedtime. - hgqbayragvlf-ksdhmfat-dgs braun k-coenzyme Q-10 (DEKAS PLUS) 200 mcg-1,000 mcg-10 mg chewable tablet Take 1 tablet by mouth once daily. - copper citrate 2 mg capsule Take 1 capsule by mouth once daily. - folic acid 1 mg tablet Take 1 mg by mouth once daily. - pantoprazole DR (PROTONIX) 40 mg tablet Take 40 mg by mouth once daily. - thiamine (VITAMIN B1) 100 mg tablet Take 100 mg by mouth once daily. - cholecalciferol (VITAMIN D3) 5,000 unit tab Take 5,000 Units by mouth once daily. Problem List As Of Date 04/26/2023 Noted Resolved Hallucinations [R44.3] 10/06/2021 Delirium due to multiple etiologies, acute, hyp*10/07/2021 Depressive disorder [F32.A] 10/07/2021 Acute metabolic encephalopathy [G93.41] 10/12/2021 Malnutrition of moderate degree (HCC) [E44.0] 10/31/2021 Encounter Status:Closed by DEIDRE ACOSTA on 04/26/23 [facility] CNPN Telephone (AGSPINE3) ----- DOMINIC JIMENEZ ([id number]) 1970 F Date Time Provider Department 04/26/23 TERE PAINTER AGSPINE3 During your visit today, we recorded the following information about you: Chris Case 04/26/2023 9:51 AM Signed ----- Message from Santa Jang sent at 04/26/2023 9:25 AM EDT ----- Regarding: Spine/Inocencio/Requesting Sooner Appointment Contact: Subject Line Format: Medicine / [Provider Name] / [Issue] Patient has been identified by name and Date of (Y/N): y Patient: Dominic Jimenez Date of : 1970 Provider for this encounter: Dr Painter Reason for the call/escalation: missed appt yesterday w/ Dr Painter; unable to reschedule @ [facility] until 08/01/23. Wants to be seen sooner; has a number of meds her PCP wants [facility] to take over prescribing Person calling if other than patient: n/a Return call to if other than patient: n/a Best contact number: [phone] Thank you, Santa Jang April 26, 2023 9:26 AM Allergies As of Date: 04/26/2023 (No Known Allergies) Date Reviewed: 04/24/2023 Reviewed by: Teodora Mckinnon LPN - Fully Assessed Reason for Visit: Appointment [186] Prescriptions as of 04/26/2023 - ALPRAZolam (XANAX) 0.25 mg tablet Take 0.25 mg by mouth twice daily as needed. - Kiycnjqbqudco-Lizizbiy-Uk tein (MULTIVITAMIN 50 PLUS) tab Take 1 tablet by mouth once daily. - thiamine mononitrate (VITAMIN B1) 100 mg tab 1 tab(s) orally once a day - Milk Thistle 175 mg tab as directed Orally - cyanocobalamin (VITAMIN B-12) 1,000 mcg tab Take 1 tablet by mouth once daily. - ginkgo biloba leaf extract 60 mg tab as directed Orally - Magnesium 200 mg tab 1 tablet with a meal Orally Once a day - glucosamine-chondroitin 500-400 mg capsule 1 tablet with a meal Orally Once a day - melatonin 10 mg cap 2 tab(s) orally once a day (at bedtime) - famotidine (PEPCID) 40 mg tablet Take 40 mg by mouth daily at bedtime. - tiZANidine (ZANAFLEX) 2 mg tablet TAKE 1 TO 2 TABLETS BY MOUTH EVERY 8 HOURS NEEDED FOR MUSCLE SPASM - DULoxetine (CYMBALTA) 60 mg capsule - doxycycline hyclate (VIBRAMYCIN) 100 mg capsule TAKE 1 CAPSULE BY MOUTH TWICE DAILY FOR 10 DAYS - gabapentin (NEURONTIN) 300 mg capsule Take 300 mg by mouth. - gabapentin (NEURONTIN) 100 mg capsule gabapentin 100 mg capsule TAKE 1 CAPSULE BY MOUTH TWICE DAILY - lactulose (DUPHALAC, CONSTULOSE) 10 gram/15 mL solution Enulose 10 gram/15 mL oral solution - nadolol (CORGARD) 20 mg tablet Take 20 mg by mouth once daily. For 30 days - VITAMIN B-1, MONONITRATE, 100 mg tab TAKE 1 TABLET BY MOUTH ONCE DAILY FOR 90 DAYS - triamcinolone acetonide (KENALOG) 0.5 % cream APPLY TOPICALLY 2 TO 3 TIMES DAILY FOR 7 DAYS, DO NOT USE FOR MORE THAN 1-2 WEEKS CONSISTENTLY - traZODone (DESYREL) 50 mg tablet Take 0.5 tablets by mouth daily at bedtime. - vyfzkgripgpc-tujswqti-itp braun k-coenzyme Q-10 (DEKAS PLUS) 200 mcg-1,000 mcg-10 mg chewable tablet Take 1 tablet by mouth once daily. - copper citrate 2 mg capsule Take 1 capsule by mouth once daily. - folic acid 1 mg tablet Take 1 mg by mouth once daily. - pantoprazole DR (PROTONIX) 40 mg tablet Take 40 mg by mouth once daily. - thiamine (VITAMIN B1) 100 mg tablet Take 100 mg by mouth once daily. - cholecalciferol (VITAMIN D3) 5,000 unit tab Take 5,000 Units by mouth once daily. Problem List As Of Date 04/26/2023 Noted Resolved Hallucinations [R44.3] 10/06/2021 Delirium due to multiple etiologies, acute, hyp*10/07/2021 Depressive disorder [F32.A] 10/07/2021 Acute metabolic encephalopathy [G93.41] 10/12/2021 Malnutrition of moderate degree (HCC) [E44.0] 10/31/2021 Encounter Status:Closed by RIDDLE, CHRIS on 04/26/23 Normal [facility] CT HEAD OR BRAIN W/O CONTRAS Ton 04-23-2023 CT HEAD OR BRAIN W/O CONTRAST ORIGINAL EXAMINATION: CT OF THE HEAD WITHOUT CONTRAST04/23/2023 7:39 pm TECHNIQUE: CT of the head was performed without the administration of intravenous contrast. Automated exposure control, iterative reconstruction, and/or weight based adjustment of the mA/kV was utilized to reduce the radiation dose to as low as reasonably achievable. COMPARISON: None. HISTORY: ORDERING SYSTEM PROVIDED HISTORY: Reason for Exam: FALL YESTERDAY, SMALL ABRASION TO BRIDGE OF NOSE, DENIES LOC, DIZZINESS TODAY, NO NEURO HISTORY, NOT ON THINNERS INJURY FINDINGS: There is no intracranial hemorrhage, mass effect or abnormal extra-axial fluid collection. Mayfield-white matter differentiation is well maintained. Prominent perivascular spaces in the right inferior basal ganglia region. The ventricles are unremarkable for patient age. The skull base and calvarium demonstrate no acute fracture. Minimal soft tissue swelling overlying nasal prominence. The included paranasal sinuses and mastoid air cells are predominantly clear. IMPRESSION: No acute intracranial hemorrhage or large territorial infarction. Minimal soft tissue swelling over the nasal prominence. No fracture within the field of view. I have personally reviewed the images of this examination and agree with the resident's findings and interpretation. Interpreted by: Reinaldo Lion DO Preliminary Report By: Clark Claros Electronically signed By Reinaldo Lion DO Dictated Date: 04/23/2023 8:30:17 PM Prelim Date: 04/23/2023 8:36:12 PM Sign Date: 04/23/2023 8:50:50 PM Ordering Provider: ANGELIC MIGUEL [facility] ([place]) CT MAXILLOFACIAL W/O CONTRMOSES Ton 04-23-2023 CT MAXILLOFACIAL W/O CONTRAST ORIGINAL EXAMINATION: CT OF THE FACE WITHOUT CONTRAST 04/23/2023 7:43 pm TECHNIQUE: CT of the face was performed without the administration of intravenous contrast. Multiplanar reformatted images are provided for review. Automated exposure control, iterative reconstruction, and/or weight based adjustment of the mA/kV was utilized to reduce the radiation dose to as low as reasonably achievable. COMPARISON: None HISTORY: ORDERING SYSTEM PROVIDED HISTORY: Reason for Exam: FALL YESTERDAY, SMALL ABRASION TO BRIDGE OF NOSE, DENIES LOC, DIZZINESS TODAY INJURY FINDINGS: Metallic artifact from dental hardware obscures some details. No acute facial fracture or dislocation. Nasal septum is midline. Minimal soft tissue swelling over the nasal prominence. Degenerative left TMJ. Orbits/intraorbital contents are unremarkable. Predominantly clear visualized paranasal sinuses and mastoid air cells. Pneumatized pterygoids anterior clinoid processes from the sphenoid sinuses. And IMPRESSION: No acute osseous abnormality. Minimal soft tissue swelling over the nasal prominence. I have personally reviewed the images of this examination and agree with the resident's findings and interpretation. RECOMMENDATIONS: Unavailable Interpreted by: Reinaldo Lion DO Preliminary Report By: Clark Claros Electronically signed By Reinaldo iLon DO Dictated Date: 04/23/2023 8:49:16 PM Prelim Date: 04/23/2023 8:53:23 PM Sign Date: 04/23/2023 9:00:27 PM Ordering Provider: ANGELIC MIGUEL [facility]) CT SPINE CERVICAL W/O RL Maldonado 04-23-2023 CT SPINE CERVICAL W/O CONTRAST ORIGINAL EXAMINATION: CT OF THE CERVICAL SPINE WITHOUT CONTRAST04/23/2023 7:42 pm TECHNIQUE: CT of the cervical spine was performed without the administration of intravenous contrast. Multiplanar reformatted images are provided for review. Automated exposure control, iterative reconstruction, and/or weight based adjustment of the mA/kV was utilized to reduce the radiation dose to as low as reasonably achievable. COMPARISON: None. HISTORY: ORDERING SYSTEM PROVIDED HISTORY: Reason for Exam: FALL YESTERDAY, SMALL ABRASION TO BRIDGE OF NOSE, DENIES LOC, DIZZINESS TODAY INJURY FINDINGS: Straightening of the cervical spine. No acute fracture or compression deformity. No significant listhesis. Mild degenerative changes. No severe spinal canal stenosis. The prevertebral and paraspinal soft tissues demonstrate no acute abnormality. IMPRESSION: No acute osseous abnormality. ATTENDING ADDENDUM by Dr. Reinaldo Lion at 8:55 pm on 04/23/2023. No acute fracture or compression deformity. Mild thickening of the right C3-4 facet joint with some endplate irregularity could relate to facet arthropathy or less likely facetitis given afebrile, traumatic history. Correlate with point tenderness. Findings were discussed with Dr. ANGELIC MIGUEL at 8:56 pm on 04/23/2023. I have personally reviewed the images of this examination and edited the resident's findings and interpretation. Interpreted by: Reinaldo Lion DO Preliminary Report By: Clark Claros Electronically signed By Reinaldo Lion DO Dictated Date: 04/23/2023 8:45:40 PM Prelim Date: 04/23/2023 8:49:05 PM Sign Date: 04/23/2023 8:57:56 PM Ordering Provider: ANGELIC MIGUEL [facility] ([place]) UA (POC)on 04-23-2023 Perf Loc - POCT Tested at AM [facility] ([place]) Comment on above: Result Comment: [place] [address] [place], [place] [address] Appearance (U) Clear Normal Clear [facility] [place] Bilirubin Ql (U) Negative Normal Neg-Trace [facility] [place] Color (U) Yellow Normal [facility] [place] Glucose Ql (U) Negative Normal Negative [facility] [place] Hemoglobin Ql (U) Negative Normal Neg-Trace [facility] [place] Ketones Ql (U) Negative Normal [facility] [place] Leukocyte esterase Test strip Ql (U) Small Abnormal Neg-Trace [facility] [place] Nitrite Ql (U) Negative Normal Negative [facility] [place] Performing Instrument - POCT CLINITEK Normal [facility] [place] pH (U) 6.5 [pH] Normal 5.0 - 8.0 [facility] [place] Protein Ql (U) Negative Normal Neg-30 [facility]) Specific gravity (U) [Rel density] 1.020 Normal 1.006-1.029 [facility] [place] Urobilinogen Qn (U) 1.0 {Vinay'U}/dL Normal 0.2-1.0 [facility] ([place]) Basophil percentageon 2022 Cholesterol [Mass/Vol] 180 mg/dL <200 [facility] Comment on above: <200 mg/dL Desirable 200-240 mg/dL Borderline >240 mg/dL High Risk Triglyceride [Mass/Vol] 118 mg/dL <199 [facility] Comment on above: The drugs N-Acetylcy steine and Metamizole may falsely depress this assay.Serum Triglycerides Reference Interval Normal <150 mg/dL Borderline high 150 - 199 mg/dL High 200 - 499 mg/dL Very High > or = 500 mg/dL No Panel Informationon 03-11 Thyroid Stimulating Hormone (TSH) 5.76 uIU/mL 0.358-3.74 [facility] Serum or plasma cholesterol in HDL measurement (mass/volume)on 03-11-2023 Cholesterol in HDL [Mass/Vol] 33 mg/dL >40 [facility] Comment on above: The drugs N-Acetylcy steine and Metamizole may falsely depress this assay. Reference Range HDL <40 mg/dL Low HDL Cholesterol HDL >or= 60 mg/dL High HDL Cholesterol Serum or plasma cholesterol in VLDL measurement (mass/volume)on 03-11-2023 Cholesterol in VLDL [Mass/Vol] 24 mg/dL 5-40 [facility] Serum or plasma low density lipoprotein (LDL) cholesterol measurement (mass/volume)on 03-11-2023 Cholesterol in LDL [Mass/Vol] 123 mg/dL 0-130 [facility] Cervical or vagninal specime n microscopic examination by cytology stain (reported asOrdered By: Dr. Jimenez on 03-01-2023 Cytology report Cyto stain Doc (Cvx/Vag) Comment . [facility] Comment on above: The Pap smear is a s creening test designed to aid in thedetection of premalignant and malignant conditions of theuterine cervix. It is not a diagnostic procedure andshould not be used as the sole means of detecting cervicalcancer. Both false-positive and false-negative reports dooccur. Detection in cervical specim en of any of human papilloma virus (HPV) 16, 18, 31, 33,Ordered By: Dr. Jimenez on 03-01-2023 HPV 16+18+31+33+35+39+45+ 51+52+56+58+59+66+68 DNA Probe+sig amp Ql (Cvx) Negative Negative [facility] Comment on above: This nucleic acid am plification test detects fourteen high- risk HPV types (16,18,31,33,35,39,45,51,52,56,58,59,66,68)without differentiation. Laboratory - CytologyOrdered By: Dr. Jimenez on 03-01-2023 Schedule Analyst Cyto stain Nom (Cvx/Vag) [ID] Comment . [facility] Comment on above: Santa Best, Cytot echnologist (ASCP) Laboratory - Miscellaneous t estsOrdered By: Dr. Jimenez on 03-01-2023 Service comment (Unsp spec) [Interp] Comment . [facility] Comment on above: This liquid based Th inPrep(R) pap test was screened withthe use of an image guided system. Service comment (Unsp spec) [Interp] . . [facility] Liquid-based cerv Pap + CT/G C by BELIA w reflex to high-risk HPV for ASCUSOrdered By: Dr. Jimenez on 03-01-2023 Cytology report Cyto stain.thin prep Doc (Cvx/Vag) Comment . [facility] Comment on above: Criteria not met, HP V Genotype not performed.Performed at: [place] - [facility] [id number] Director: Ching Grubbs MD, Phone: [phone] at: =G - [facility] [address] [id number] Director: Ching Grubbs MD, Phone: [phone] No Panel InformationOrdered By: Dr. Jimenez on 03-01-2023 Pathology report final diagnosis Narrative Comment . [facility] Comment on above: NEGATIVE FOR INTRAEP ITHELIAL LESION OR MALIGNANCY. Absolute lymphocyte countOrd ered By: Leodan Sarabia on 02-12-2023 Lymphocytes Auto (Unsp spec) [#/Vol] 1.16 10*3/uL 0.83-4.51 [facility] Basophil percentageOrdered B y: Leodan Sarabia on 02-12-2023 Ammonia (P) [Moles/Vol] 53.0 umol/L 11-32 [facility] Basophils/100 WBC (Bld) 0.6 % 0-1 [facility] Bilirubin [Mass/Vol] 1.80 mg/dL 0.20-1.00 [facility] Comment on above: For patients on eltr ombopag therapy, use of Dimension [place] TBIL is not recommended. Chloride [Moles/Vol] 111 mmol/L 98-107 [facility] Eosinophils/100 WBC (Bld) 1.6 % 0-5 [facility] Glucose [Mass/Vol] 106 mg/dL 74-106 [facility] Comment on above: Fasting Glucose resu lt from 100 to 125 mg/dL suggests IMPAIRED HOMEOSTASIS per A.D.A. criteria. LDH [Catalytic activity/Vol] 152 U/L 84-246 [facility] Neutrophils (Bld) [#/Vol] 1.6 10*3/uL 2.0-7.7 [facility] Neutrophils/100 WBC (Bld) 52.0 % 47-70 [facility] Potassium [Moles/Vol] 4.4 mmol/L 3.5-5.1 [facility] Protein [Mass/Vol] 7.6 g/dL 6.4-8.2 [facility] Sodium [Moles/Vol] 139 mmol/L 136-145 [facility] WBC (Bld) [#/Vol] 3.1 10*3/uL 4.4-11.0 [facility] Blood erythrocytes count (nu mber/volume)Ordered By: Leodan Sarabia on 02-12-2023 RBC (Bld) [#/Vol] 3.70 10*6/uL 4.2-5.4 [facility] Blood hemoglobin measurement (mass/volume)Ordered By: Leodan Sarabia on 02-12-2023 Hemoglobin (Bld) [Mass/Vol] 10.7 g/dL 12.0-15.0 [facility] Blood lymphocytes/100 leukoc ytesOrdered By: Leodan Sarabia on 02-12-2023 Lymphocytes/100 WBC (Bld) 37.7 % 19-41 [facility] Blood monocytes/100 leukocyt esOrdered By: Leodan Saarbia on 02-12-2023 Monocytes/100 WBC (Bld) 8.1 % 0-10 [facility] Blood platelet mean volumeOr dered By: Leodan Sarabia on 02-12-2023 Platelet mean volume (Bld) [Entitic vol] 13.7 fL 6.2-12.0 [facility] Determination of erythrocyte mean corpuscular volume (MCV)Ordered By: Leodan Sarabia on 02-12-2023 MCV (RBC) [Entitic vol] 90.5 fL 81-99 [facility] Erythrocyte sedimentation ra teOrdered By: Leodan Sarabia on 02-12-2023 ESR (Bld) [Velocity] 33 mm/h 0-30 [facility] Hematocrit Auto (Bld) [Volum e fraction]Ordered By: Leodan Sarabia on 02-12-2023 Hematocrit (Bld) [Volume fraction] 33.5 % 37-47 [facility] INR in Blood by Coagulation assayOrdered By: Leodan Sarabia on 02-12-2023 INR Coag (Bld) [Relative time] 1.3 {INR} [facility] Laboratory - Chemistry and C hemistry - challengeOrdered By: Leodan Sarabia on 02-12-2023 ALP [Catalytic activity/Vol] 91 U/L 45-117 [facility] ALT [Catalytic activity/Vol] 31 U/L 13-56 [facility] CO2 [Moles/Vol] 21.0 mmol/L 21.0-32.0 [facility] Globulin (S) [Mass/Vol] 4.0 g/dL 2.2-4.2 [facility] Urea nitrogen/Creatinine [Mass ratio] 13.3 mg/mg 10-20 [facility] Laboratory - CoagulationOrde red By: Leodan Sarabia on 02-12-2023 PT Coag (PPP) [Time] 15.8 s 11.7-14.9 [facility] Laboratory - Hematology and Cell countsOrdered By: Leodan Sarabia on 02-12-2023 Erythrocyte distribution width (RBC) [Entitic vol] 51.2 fL 35.1-43.9 [facility] Erythrocyte distribution width (RBC) [Ratio] 15.4 % 11.6-14.6 [facility] Immature granulocytes/100 WBC (Bld) 0.000 % 0.0-0.9 [facility] Comment on above: IG% - Immature Granu locytes (promyelocytes, myelocytes and metamyelocytes) > 1% indicates that a LEFT SHIFT is Present. MCH (RBC) [Entitic mass] 28.9 pg 27.0-32.0 [facility] Nucleated RBC/100 WBC (Bld) [Ratio] 0 % 0-5 [facility] MCHC Auto (RBC) [Mass/Vol]Or dered By: Leodan Sarabia on 02-12-2023 MCHC (RBC) [Mass/Vol] 31.9 g/dL 32-36 [facility] No Panel InformationOrdered By: Leodan Sarabia on 02-12-2023 Estimated GFR (MDRD) Amer 93 mL/min >60 [facility] Comment on above: GFR Calc Estimated GFR (MDRD) Non-Af Amer 77 mL/min >60 [facility] Comment on above: Non- GFR Calc Platelets bldOrdered By: Patrick Sarabia on 02-12-2023 Platelets (Bld) [#/Vol] 53 10*3/uL 150-450 [facility] Serum or plasma C reactive p rotein measurement (mass/volume)Ordered By: Leodan Sarabia on 02-12-2023 CRP [Mass/Vol] 7.27 mg/L 0.0-3.0 [facility] Comment on above: C-Reactive Protein ( CRP) provides useful information for thediagnosis, therapy and monitoring of inflammatory processesand associated diseases. For the evaluation of Relative Riskfor Cardiovascular Disease, a High Sensitivity CRP (HSCRP)should be ordered. Serum or plasma albumin peewee urement (mass/volume)Ordered By: Leodan Sarabia on 02-12-2023 Albumin [Mass/Vol] 3.6 g/dL 3.2-5.0 [facility] Serum or plasma albumin/glob ulin mass ratioOrdered By: Leodan Sarabia on 02-12-2023 Albumin/Globulin [Mass ratio] 0.9 {ratio} 0.9-2.4 [facility] Serum or plasma calcium peewee urement (mass/volume)Ordered By: Leodan Sarabia on 02-12-2023 Calcium [Mass/Vol] 9.1 mg/dL 8.5-10.1 [facility] Serum or plasma creatinine m easurement (mass/volume)Ordered By: Leodan Sarabia on 02-12-2023 Creatinine [Mass/Vol] 0.83 mg/dL 0.55-1.02 [facility] Comment on above: The validity of the calculated GFR & GFRAA in patients over 70 years has not been determined. Clinical correlation is essential. Serum or plasma urea nitroge n measurement (mass/volume)Ordered By: Leodan Sarabia on 02-12-2023 Urea nitrogen [Mass/Vol] 11 mg/dL 7-18 [facility] Thin prep Papanicolaou smear with manual screeningOrdered By: Leodan Sarabia on 02-12-2023 Thin prep Papanicolaou smear with manual screening 38 U/L 15-37 [facility] Thin prep Papanicolaou smear with manual screening 7 5-15 [facility] URINALYSIS, DIPSTICK ONLYon 02-10-2023 Bilirubin Ql (U) Negative Negative [facility] Clarity (Unsp spec) Clear Clear [facility] Color (U) Yellow Yellow [facility] Glucose Test strip (U) [Mass/Vol] Negative Negative [facility] Hemoglobin Ql (U) Trace Abnormal Negative [facility] Ketones Ql (U) Negative Negative [facility] Leukocyte esterase Test strip Ql (U) 3+ Abnormal Negative [facility] Nitrite Ql (U) Negative Negative [facility] pH (U) 6.5 [pH] 5.0 - 8.0 [facility] Protein (U) [Mass/Vol] Trace Abnormal Negative [facility] Specific gravity (U) [Rel density] 1.010 1.005 - 1.030 [facility] Urobilinogen Ql (U) Negative Negative [facility] BMP (POC)on 01-06-2023 Perf Loc - POCT Tested at AM Normal [facility] ([place]) Comment on above: Result Comment: [facility] [place] [address] [place], [place] [address] BUN/Creatinine Ratio (POC) 12.4 ratio Normal 10.0-22.0 [facility] [place] Calcium Level Ionized (POC) 1.06 mmol/L Low 1.12-1.32 [facility] [place] Chloride [Moles/Vol] 110 mmol/L Normal 98-110 [facility] [place] CO2 [Moles/Vol] 20 mmol/L Low 22-32 [facility] [place] Creatinine [Mass/Vol] 0.61 mg/dL Normal 0.50-1.20 [facility] [place] Electrolyte Balance (POC) 14.0 mEq/L Normal 4.0-15.0 [facility] [place] Est GFR (POC) >60 Normal [facility] [place] Comment on above: Result Comment: Chronic Kidney Disease: Less than 60 mL/min/1.73 square meters End Stage Renal Disease: Less than 15 mL/min/1.73 square meters Est GFR Non- (POC) >60 Normal [facility] ([place] Comment on above: Result Comment: Chronic Kidney Disease: Less than 60 mL/min/1.73 square meters End Stage Renal Disease: Less than 15 mL/min/1.73 square meters Glucose [Mass/Vol] 104 mg/dL Normal 70-110 [facility] ([place] Performing Instrument - POCT EPOC1 Normal [facility] [place] Potassium [Moles/Vol] 4.2 mmol/L Normal 3.5-5.0 [facility] [place] Sodium [Moles/Vol] 143 mmol/L Normal 136-145 [facility]) Urea nitrogen [Mass/Vol] 8.0 mg/dL Normal 8.0-22.0 [facility]) CBC (POC)on 01-06-2023 Perf Loc - POCT Tested at AM Normal [facility]) Comment on above: Result Comment: [address] [place], [place] [address] Basophil, Absolute (POC) 0.00 10 3/mcL Normal 0.00-0.27 [facility]) Basophils/100 WBC (Bld) 0.0 % Normal 0.0-2.5 [facility]) Eosinophil, Absolute (POC) 0.05 10 3/mcL Normal 0.00-0.65 [facility]) Eosinophils/100 WBC (Bld) 1.4 % Normal 0.0-6.0 [facility] [place] Erythrocyte distribution width (RBC) [Ratio] 15.2 % Normal 11.5-15.5 [facility]) Hematocrit (Bld) [Volume fraction] 33.7 % Low 34.0-46.0 [facility]) Hemoglobin (POC) 10.7 G/dL Low 12.0-16.0 [facility] [place] Imm Granulocyte, Absolute (POC) 0.01 10 3/mcL Normal [facility]) Immature granulocytes/100 WBC (Bld) 0.3 % Normal [facility] [place] Lymphocyte, Absolute (POC) 1.30 10 3/mcL Normal 0.90-4.32 [facility]) Lymphocytes/100 WBC (Bld) 36.1 % Normal 20.0-40.0 [facility]) MCH (RBC) [Entitic mass] 29.5 pg Normal 27.0-33.0 [facility] [place] MCHC (POC) 31.8 G/dL Low 32.0-36.0 [facility]) MCV (RBC) [Entitic vol] 92.8 fL Normal 80.0-99.0 [facility] [place] Monocyte, Absolute (POC) 0.34 10 3/mcL Normal 0.09-1.40 [facility]) Monocytes/100 WBC (Bld) 9.4 % Normal 2.0-13.0 [facility] [place] Neutrophil, Absolute (POC) 1.90 10 3/mcL Low 2.25-8.10 [facility] [place] Neutrophils/100 WBC (Bld) 52.8 % Normal 50.0-75.0 [facility]) Performing Instrument - POCT SYSMEX Normal [facility] [place] Platelet (POC) 52 10 3/mcL Low 150-450 [facility]) Platelet mean volume (Bld) [Entitic vol] 11.6 fL High 6.6-10.5 [facility] [place] RBC (POC) 3.63 10 6/mcL Low 4.50-6.00 [facility] [place] WBC (POC) 3.60 10 3/mcL Low 4.50-10.80 [facility]) UA (POC)on 01-06-2023 Perf Loc - POCT Tested at AM Normal [facility]) Comment on above: Result Comment: [facility] [place] [address] [place], [place] [address] Appearance (U) Clear Normal Clear [facility] [place] Bilirubin Ql (U) Negative Normal Neg-Trace [facility] [place] Color (U) Yellow Normal [facility] [place] Glucose Ql (U) Negative Normal Negative [facility] [place] Hemoglobin Ql (U) Trace-intact Normal [facility] [place] Ketones Ql (U) Negative Normal Neg-Trace [facility] [place] Leukocyte esterase Test strip Ql (U) Trace Abnormal Neg-Trace [facility] [place] Nitrite Ql (U) Negative Normal Negative [facility]) Performing Instrument - POCT CLINITEK Normal [facility]) pH (U) 6.5 [pH] Normal 5.0 - 8.0 [facility]) Protein Ql (U) Negative Normal Neg-30 [facility] [place] Specific gravity (U) [Rel density] <=1.005 Abnormal 1.006-1.029 [facility] [place] Urobilinogen Qn (U) 0.2 {Vinay'U}/dL Normal 0.2-1.0 [facility] [place] XR CHEST 2 VIEWSon 3 XR CHEST 2 VIEWS ORIGINAL EXAMINATION: TWO XRAY VIEWS OF THE CHEST 01/06/2023 4:37 pm COMPARISON: Chest radiograph on 09/20/2021. HISTORY: ORDERING SYSTEM PROVIDED HISTORY: Reason for Exam: anterior pain/bruising lt lower ribcage after fall pain FINDINGS: Cardiomediastinal silhouette is stable. No lung consolidation, pleural effusion, pneumothorax, or vascular congestion. No acute osseous abnormality. Specifically, no left rib fractures identified. IMPRESSION: No acute radiographic findings. I have personally reviewed the images of this examination and agree with the resident's findings and interpretation. Interpreted by: Rafat Lorenz DO Preliminary Report By: Tim Sherman Electronically signed By Rafat Lorenz DO Dictated Date: 01/06/2023 4:38:22 PM Prelim Date: 01/06/2023 4:39:29 PM Sign Date: 01/06/2023 4:41:36 PM Ordering Provider: MARIYA Cintron [facility]) XR RIBS 2 VIEWS LEFTon 01-06 XR RIBS 2 VIEWS LEFT ORIGINAL EXAMINATION: 2 XRAY VIEWS OF THE LEFT RIBS 01/06/2023 4:35 pm COMPARISON: Chest radiograph same day and 09/20/2021. HISTORY: ORDERING SYSTEM PROVIDED HISTORY: Reason for Exam: anterior pain/bruising lt lower ribcage after fall pain FINDINGS: No visible left rib fracture. No acute abnormality in the included thoracic structures. IMPRESSION: No visible rib fracture. I have personally reviewed the images of this examination and agree with the resident's findings and interpretation. Interpreted by: Rafat Lorenz DO Preliminary Report By: Tim Sherman Electronically signed By Rafat Lorenz DO Dictated Date: 01/06/2023 4:36:26 PM Prelim Date: 01/06/2023 4:38:15 PM Sign Date: 01/06/2023 4:40:49 PM Ordering Provider: MARIYA NORTON Normal [facility] [place] URINALYSIS, DIPSTICK ONLYon 12-31-2022 Bilirubin Ql (U) Negative Negative [facility] Clarity (Unsp spec) Hazy Abnormal Clear [facility] Color (U) Yellow Yellow [facility] Glucose Test strip (U) [Mass/Vol] Negative Negative [facility] Hemoglobin Ql (U) Negative Negative [facility] Ketones Ql (U) Negative Negative [facility] Leukocyte esterase Test strip Ql (U) 1+ Abnormal Negative [facility] Nitrite Ql (U) Negative Negative [facility] pH (U) 6.5 [pH] 5.0 - 8.0 [facility] Protein (U) [Mass/Vol] Negative Negative [facility] Specific gravity (U) [Rel density] 1.010 1.005 - 1.030 [facility] Urobilinogen Ql (U) Negative Negative [facility] XR RIBS/CHEST 3V AP RIB/OBLS /CXR LEFTon 12-31-2022 [facility] XR Ribs - left Views and Brianna st PAon 12-31-2022 IMPRESSION: Unremarkable left rib series. Forming Operator: PSCB Transcribe Date/Time: Dec 31 2022 1:18P Dictated by : CLARK CORRALES MD This examination was interpreted and the report reviewed and electronically signed by: CLARK CORRALES MD on Dec 31 2022 1:19PM EST [facility] * * *Final Report* * * DATE OF EXAM: Dec 31 2022 12:20PM [id number] - XR RIB/CHST 3V AP RIB/OBL/CHST L / PROCEDURE REASON: Rib contusion, left, initial encounter * * * * Physician Interpretation * * * * LEFT RIB SERIES WITH EXPIRATORY CHEST Clinical Statement: Rib contusion, left, initial encounter. Comparison: Chest 10/14/2021. FINDINGS: The left ribs are intact with no fracture or other bony abnormality identified. No pleural fluid or pneumothorax. The cardiac and mediastinal contours are normal. The lungs are clear. [facility] Provider, Amarilys Vaughn - 12/31/2022 * * *Final Report* * * DATE OF EXAM: Dec 31 2022 12:20PM [id number] - XR RIB/CHST 3V AP RIB/OBL/CHST L / PROCEDURE REASON: Rib contusion, left, initial encounter * * * * Physician Interpretation * * * * LEFT RIB SERIES WITH EXPIRATORY CHEST Clinical Statement: Rib contusion, left, initial encounter. Comparison: Chest 10/14/2021. FINDINGS: The left ribs are intact with no fracture or other bony abnormality identified. No pleural fluid or pneumothorax. The cardiac and mediastinal contours are normal. The lungs are clear. IMPRESSION IMPRESSION: Unremarkable left rib series. Forming Operator: PSCB Transcribe Date/Time: Dec 31 2022 1:18P Dictated by : CLARK CORRALES MD This examination was interpreted and the report reviewed and electronically signed by: CLARK CORRALES MD on Dec 31 2022 1:19PM EST [facility] Radiology Study observation (narrative) [facility] XR Ribs - left Views and Brianna st PAOrdered By: Ccf Provider on 12-31-2022 [facility] Absolute lymphocyte counton 09-02-2022 Lymphocytes Auto (Unsp spec) [#/Vol] 1.55 10*3/uL 0.83-4.51 [facility] Work Phone: Basophil percentageon 2021 Ammonia (P) [Moles/Vol] 27.0 umol/L 11-32 [facility] Work Phone: Basophils/100 WBC (Bld) 0.2 % 0-1 [facility] Work Phone: Bilirubin [Mass/Vol] 1.50 mg/dL 0.20-1.00 [facility] Work Phone: Comment on above: For patients on eltr ombopag therapy, use of Dimension [place] TBIL is not recommended. Chloride [Moles/Vol] 111 mmol/L 98-107 [facility] Work Phone: Eosinophils/100 WBC (Bld) 1.1 % 0-5 [facility] Work Phone: Glucose [Mass/Vol] 113 mg/dL 74-106 [facility] Work Phone: Comment on above: Fasting Glucose resu lt from 100 to 125 mg/dL suggests IMPAIRED HOMEOSTASIS per A.D.A. criteria. Neutrophils (Bld) [#/Vol] 2.6 10*3/uL 2.0-7.7 [facility] Work Phone: Neutrophils/100 WBC (Bld) 57.1 % 47-70 [facility] Work Phone: Potassium [Moles/Vol] 4.3 mmol/L 3.5-5.1 [facility] Work Phone: Comment on above: Slight Hemolysis, Re sult may be falsely increased. Protein [Mass/Vol] 8.0 g/dL 6.4-8.2 [facility] Work Phone: Sodium [Moles/Vol] 140 mmol/L 136-145 [facility] Work Phone: WBC (Bld) [#/Vol] 4.5 10*3/uL 4.4-11.0 [facility] Work Phone: Blood erythrocytes count (nu mber/volume)on 09-02-2022 RBC (Bld) [#/Vol] 3.65 10*6/uL 4.2-5.4 [facility] Work Phone: Blood hemoglobin measurement (mass/volume)on 09-02-2022 Hemoglobin (Bld) [Mass/Vol] 11.1 g/dL 12.0-15.0 [facility] Work Phone: Blood lymphocytes/100 leukoc yteson 09-02-2022 Lymphocytes/100 WBC (Bld) 34.3 % 19-41 [facility] Work Phone: Blood monocytes/100 leukocyt eson 09-02-2022 Monocytes/100 WBC (Bld) 7.1 % 0-10 [facility] Work Phone: Blood platelet mean volumeon 09-02-2022 Platelet mean volume (Bld) [Entitic vol] 12.7 fL 6.2-12.0 [facility] Work Phone: Determination of erythrocyte mean corpuscular volume (MCV)on 09-02-2022 MCV (RBC) [Entitic vol] 91.8 fL 81-99 [facility] Work Phone: Glucose Glucometer (BldC) [M ass/Vol]on 09-02-2022 Glucose [Mass/Vol] 106 mg/dL 74-106 [facility] Work Phone: Comment on above: MANAGEMENT OF PATIEN T CARE PER NURSING PROTOCOL Hematocrit Auto (Bld) [Volum e fraction]on 09-02-2022 Hematocrit (Bld) [Volume fraction] 33.5 % 37-47 [facility] Work Phone: INR in Blood by Coagulation assayon 09-02-2022 INR Coag (Bld) [Relative time] 1.3 {INR} [facility] Work Phone: Laboratory - Chemistry and C hemistry - challengeon 09-02-2022 ALP [Catalytic activity/Vol] 104 U/L 45-117 [facility] Work Phone: ALT [Catalytic activity/Vol] 27 U/L 13-56 [facility] Work Phone: CO2 [Moles/Vol] 22.0 mmol/L 21.0-32.0 [facility] Work Phone: Globulin (S) [Mass/Vol] 4.6 g/dL 2.2-4.2 [facility] Work Phone: Urea nitrogen/Creatinine [Mass ratio] 21.6 mg/mg 10-20 [facility] Work Phone: Laboratory - Coagulationon aPTT Coag (Bld) [Time] 39.3 s 24.1-36.2 [facility] Work Phone: PT Coag (PPP) [Time] 15.8 s 11.7-14.9 [facility] Work Phone: Laboratory - Hematology and Cell countson 09-02-2022 Erythrocyte distribution width (RBC) [Entitic vol] 52.1 fL 35.1-43.9 [facility] Work Phone: [phone] Erythrocyte distribution width (RBC) [Ratio] 15.5 % 11.6-14.6 [facility] Work Phone: [phone] Immature granulocytes/100 WBC (Bld) 0.200 % 0.0-0.9 [facility] Work Phone: [phone] Comment on above: IG% - Immature Granu locytes (promyelocytes, myelocytes and metamyelocytes) > 1% indicates that a LEFT SHIFT is Present. MCH (RBC) [Entitic mass] 30.4 pg 27.0-32.0 [facility] Work Phone: [phone] Nucleated RBC/100 WBC (Bld) [Ratio] 0 % 0-5 [facility] Work Phone: [phone] MCHC Auto (RBC) [Mass/Vol]on 09-02-2022 MCHC (RBC) [Mass/Vol] 33.1 g/dL 32-36 [facility] Work Phone: No Panel Informationon 09-02 Estimated Creatinine Clearance Calc 90.08 ml/min [facility] Work Phone: Estimated GFR (MDRD) Amer 98 mL/min >60 [facility] Work Phone: [phone] Comment on above: GFR Calc Estimated GFR (MDRD) Non-Af Amer 81 mL/min >60 [facility] [facility] Work Phone: [phone] Comment on above: Non- GFR Calc Troponin I High Sensitivity 4 pg/mL 3.0-54.0 [facility] Work Phone: [phone] Comment on above: Please Note: New Humair[place] t Units and Gender Specific Reference Ranges. For more information see Policy Stat Procedure [place] High Sensitivity Troponin (TNIH) and attachments. Platelets bldon 09-02-2022 Platelets (Bld) [#/Vol] 59 10*3/uL 150-450 [facility] Work Phone: [phone] Serum or plasma albumin peewee urement (mass/volume)on 09-02-2022 Albumin [Mass/Vol] 3.4 g/dL 3.2-5.0 [facility] Work Phone: [phone] Serum or plasma albumin/glob ulin mass ratioon 09-02-2022 Albumin/Globulin [Mass ratio] 0.7 {ratio} 0.9-2.4 [facility] Work Phone: [phone] Serum or plasma calcium peewee urement (mass/volume)on 09-02-2022 Calcium [Mass/Vol] 9.3 mg/dL 8.5-10.1 [facility] Work Phone: [phone] Serum or plasma creatinine m easurement (mass/volume)on 09-02-2022 Creatinine [Mass/Vol] 0.79 mg/dL 0.55-1.02 [facility] Work Phone: Comment on above: The validity of the calculated GFR & GFRAA in patients over 70 years has not been determined. Clinical correlation is essential. Serum or plasma urea nitroge n measurement (mass/volume)on 09-02-2022 Urea nitrogen [Mass/Vol] 17 mg/dL 7-18 [facility] Work Phone: [phone] Thin prep Papanicolaou smear with manual screeningon 09-02-2022 Thin prep Papanicolaou smear with manual screening 40 U/L 15-37 [facility] Work Phone: Comment on above: Slight Hemolysis, Re sult may be falsely increased. Thin prep Papanicolaou smear with manual screening 7 5-15 [facility] Work Phone: [phone] Absolute lymphocyte counton 07-17-2022 Lymphocytes Auto (Unsp spec) [#/Vol] 0.94 10*3/uL 0.83-4.51 [facility] Work Phone: [phone] Basophil percentageon 2021 Basophils/100 WBC (Bld) 0.6 % 0-1 [facility] Work Phone: [phone] Bilirubin [Mass/Vol] 0.90 mg/dL 0.20-1.00 [facility] Work Phone: Comment on above: For patients on eltr ombopag therapy, use of Dimension [place] TBIL is not recommended. Chloride [Moles/Vol] 119 mmol/L 98-107 [facility] Work Phone: Eosinophils/100 WBC (Bld) 1.6 % 0-5 [facility] Work Phone: [phone] Glucose [Mass/Vol] 100 mg/dL 74-106 [facility] Work Phone: [phone] Comment on above: Fasting Glucose resu lt from 100 to 125 mg/dL suggests IMPAIRED HOMEOSTASIS per A.D.A. criteria. Neutrophils (Bld) [#/Vol] 1.9 10*3/uL 2.0-7.7 [facility] Work Phone: Neutrophils/100 WBC (Bld) 61.1 % 47-70 [facility] Work Phone: [phone] Potassium [Moles/Vol] 3.4 mmol/L 3.5-5.1 [facility] Work Phone: Protein [Mass/Vol] 6.7 g/dL 6.4-8.2 [facility] Work Phone: Sodium [Moles/Vol] 144 mmol/L 136-145 [facility] Work Phone: WBC (Bld) [#/Vol] 3.1 10*3/uL 4.4-11.0 [facility] Work [phone] Blood erythrocytes count (nu mber/volume)on 07-17-2022 RBC (Bld) [#/Vol] 3.14 10*6/uL 4.2-5.4 [facility] Work Phone: Blood hemoglobin measurement (mass/volume)on 07-17-2022 Hemoglobin (Bld) [Mass/Vol] 9.5 g/dL 12.0-15.0 [facility] Work Phone: [phone] Blood lymphocytes/100 leukoc yteson 07-17-2022 Lymphocytes/100 WBC (Bld) 30.0 % 19-41 [facility] Work Phone: Blood manual differential co mment interpretation (narrative result)on 07-17-2022 Manual differential comment Reed (Bld) [Interp] SCANNED [facility] Work Phone: [phone] Blood monocytes/100 leukocyt eson 07-17-2022 Monocytes/100 WBC (Bld) 6.1 % 0-10 [facility] Work Phone: [phone] Blood platelet adequacy dete ction by light microscopyon 07-17-2022 Platelets LM Ql (Bld) MKD DEC ADEQ [facility] Work Phone: [phone] Blood platelet mean volumeon 07-17-2022 Platelet mean volume (Bld) [Entitic vol] 12.3 fL 6.2-12.0 [facility] Work Phone: [phone] Determination of erythrocyte mean corpuscular volume (MCV)on 07-17-2022 MCV (RBC) [Entitic vol] 90.8 fL 81-99 [facility] Work Phone: [phone] Hematocrit Auto (Bld) [Volum e fraction]on 07-17-2022 Hematocrit (Bld) [Volume fraction] 28.5 % 37-47 [facility] Work Phone: Laboratory - Chemistry and C hemistry - challengeon 07-17-2022 ALP [Catalytic activity/Vol] 74 U/L 45-117 [facility] Work Phone: ALT [Catalytic activity/Vol] 29 U/L 13-56 [facility] Work Phone: [phone] CO2 [Moles/Vol] 20.0 mmol/L 21.0-32.0 [facility] Work Phone: [phone] Globulin (S) [Mass/Vol] 4.3 g/dL 2.2-4.2 [facility] Work Phone: [phone] Urea nitrogen/Creatinine [Mass ratio] 16.4 mg/mg 10-20 [facility] Work Phone: [phone] Laboratory - Hematology and Cell countson 07-17-2022 Erythrocyte distribution width (RBC) [Entitic vol] 51.0 fL 35.1-43.9 [facility] Work Phone: [phone] Erythrocyte distribution width (RBC) [Ratio] 15.3 % 11.6-14.6 [facility] Work Phone: [phone] Immature granulocytes/100 WBC (Bld) 0.600 % 0.0-0.9 [facility] Work Phone: [phone] Comment on above: IG% - Immature Granu locytes (promyelocytes, myelocytes and metamyelocytes) > 1% indicates that a LEFT SHIFT is Present. MCH (RBC) [Entitic mass] 30.3 pg 27.0-32.0 [facility] Work Phone: [phone] Nucleated RBC/100 WBC (Bld) [Ratio] 0 % 0-5 [facility] Work Phone: [phone] MCHC Auto (RBC) [Mass/Vol]on 07-17-2022 MCHC (RBC) [Mass/Vol] 33.3 g/dL 32-36 [facility] Work Phone: [phone] Panel Informationon 07-17 Estimated Creatinine Clearance Calc 106.21 ml/min [facility] Work Phone: [phone] Estimated GFR (MDRD) Amer 119 mL/min >60 [facility] Work Phone: [phone] Comment on above: GFR Calc Estimated GFR (MDRD) Non-Af Amer 98 mL/min >60 [facility] Work Phone: [phone] Comment on above: Non- GFR Calc Platelets bldon 07-17-2022 Platelets (Bld) [#/Vol] 49 10*3/uL 150-450 [facility] Work Phone: [phone] Comment on above: CRITICAL VALUE VERIF IED. CALLED TO John FERGUSON RN [place] 0[address] Jamil Saldivar.RESULTS READ BACK BY SAME. Review by pathologiston 06-20 Pathologist review Reed (Unsp spec) [Interp] Reviewed [facility] Work Phone: [phone] Comment on above: Previous reported re sult: Angely garcia Edited by: NEFTALI on 07/17/22:1328Pancytopenia.Leukopenia and Neutropenia.Normocytic anemia.Marked ThrombocytopeniaClinical correlation necessary.Peter Gamboa M.D. 07/17/22 AMENDED REPORT 07/17/22 1328 PATH REV previously reported as: March Serum or plasma albumin peewee urement (mass/volume)on 07-17-2022 Albumin [Mass/Vol] 2.4 g/dL 3.2-5.0 [facility] Work Phone: Serum or plasma albumin/glob ulin mass ratioon 07-17-2022 Albumin/Globulin [Mass ratio] 0.6 {ratio} 0.9-2.4 [facility] Work Phone: Serum or plasma calcium peewee urement (mass/volume)on 07-17-2022 Calcium [Mass/Vol] 8.4 mg/dL 8.5-10.1 [facility] Work Phone: Serum or plasma creatinine m easurement (mass/volume)on 07-17-2022 Creatinine [Mass/Vol] 0.67 mg/dL 0.55-1.02 [facility] Work Phone: Comment on above: The validity of the calculated GFR & GFRAA in patients over 70 years has not been determined. Clinical correlation is essential. Serum or plasma urea nitroge n measurement (mass/volume)on 07-17-2022 Urea nitrogen [Mass/Vol] 11 mg/dL 7-18 [facility] Work Phone: Thin prep Papanicolaou smear with manual screeningon 07-17-2022 Thin prep Papanicolaou smear with manual screening 27 U/L 15-37 [facility] Work Phone: Thin prep Papanicolaou smear with manual screening 5 5-15 [facility] Work Phone: [phone] Laboratory - Hematology and Cell countson 07-16-2022 Anisocytosis Ql (Bld) 1+ [facility] Work Phone: Vancomycin troughon 07-16-20 Vancomycin trough [Mass/Vol] 15.0 ug/mL 5.0-15.0 [facility] Work Phone: Comment on above: VANCOMYCIN STANDARED DRUG THERAPY TROUGH LEVEL: 5.0 - 15.0 mg/L VANCOMYCIN HIGH INTENSITY THERAPY TROUGH LEVEL: 15.0 - 20.0 mg/L High Intensity therapy recommended for serious lifethreatening infections include:- Xdzbrcubpm-Flpgbztiwadb-Tatesnpae (Ventilator/Healtcare Associated)-Sepsis PLEASE CONTACT PHARMACY SERVICES (#[id number]) FOR INTERPRETATIONOF RESULTS. Laboratory - Chemistry and C hemistry - challengeon 07-15-2022 Magnesium [Mass/Vol] 2.0 mg/dL 1.6-2.6 [facility] Work Phone: Basophil percentageon 2021 Basophil percentage 0-5 SEEN /hpf 0-5 [facility] Work Phone: Bilirubin Test strip Ql (U)o n 07-14-2022 Bilirubin Ql (U) 1 mg/dL Negative [facility] Work Phone: Comment on above: COLOR OF URINE MAY A FFECT DIPSTICK RESULTS. Ketones Test strip Ql (U)on 07-14-2022 Ketones Ql (U) 5 mg/dl Negative [facility] Work Phone: Mucus LM Ql (Urine sed)on Mucus Ql (Urine sed) 0 SEEN /hpf [facility] Work Phone: Nitrite Test strip Ql (U)on 07-14-2022 Nitrite Ql (U) Negative Negative [facility] Work Phone: No Panel Informationon 07-14 Methicillin-Resist S.aureus DNA PCR Negative Negative [facility] Work Phone: Protein Test strip Ql (U)on 07-14-2022 Protein Ql (U) 15 mg/dl Negative [facility] Work Phone: [phone] Squamous epithelial cells de tection in urine sediment by light microscopyon 07-14-2022 Epithelial cells.squamous LM Ql (Urine sed) 5-10 SEEN /hpf 5-10 [facility] Work Phone: Urine blood detectionon 06-19 RBC Ql (U) Negative Negative [facility] Work Phone: RBC Ql (U) 0 SEEN /hpf 0-5 [facility] Work Phone: Urine clarityon 07-14-2022 Clarity (U) Clear Clear [facility] Work Phone: Urine color determinationon 07-14-2022 Color (U) Yellow Yellow [facility] Work Phone: Urine glucose detectionon Glucose Ql (U) Normal mg/dl Normal [facility] Work Phone: [phone] Urine leukocyte esterase det ection by dipstickon 07-14-2022 Leukocyte esterase Test strip Ql (U) 25 /ul Negative [facility] Work Phone: Urine pHon 07-14-2022 pH (U) 6.5 [pH] 5.0 - 8.0 [facility] Work Phone: Urine sediment bacteria coun t by microscopy (number/high power field)on 07-14-2022 Bacteria LM.HPF (Urine sed) [#/Area] RARE /hpf None Seen [facility] Work Phone: Urine specific gravity measu rementon 07-14-2022 Specific gravity (U) [Rel density] 1.015 1.002-1.030 [facility] Work Phone: Urobilinogen Auto test strip Ql (U)on 07-14-2022 Urobilinogen Ql (U) 8 mg/dl Normal [facility] Work Phone: Absolute lymphocyte counton 07-13-2022 Lymphocytes Auto (Unsp spec) [#/Vol] 0.52 10*3/uL 0.83-4.51 [facility] Work Phone: Basophil percentageon 2021 Basophil percentage 3.3 mg/dL 2.5-4.9 [facility] Work Phone: Basophils/100 WBC (Bld) 0.3 % 0-1 [facility] Work Phone: Bilirubin [Mass/Vol] 2.30 mg/dL 0.20-1.00 [facility] Work Phone: Comment on above: For patients on eltr ombopag therapy, use of Dimension [place] TBIL is not recommended. Chloride [Moles/Vol] 103 mmol/L 98-107 [facility] Work Phone: Eosinophils/100 WBC (Bld) 0.1 % 0-5 [facility] Work Phone: Glucose [Mass/Vol] 124 mg/dL 74-106 [facility] Work Phone: Comment on above: Fasting Glucose resu lt from 100 to 125 mg/dL suggests IMPAIRED HOMEOSTASIS per A.D.A. criteria. Lactate [Moles/Vol] 1.6 mmol/L 0.4-2.0 [facility] Work Phone: Neutrophils (Bld) [#/Vol] 9.9 10*3/uL 2.0-7.7 [facility] Work Phone: Neutrophils/100 WBC (Bld) 90.2 % 47-70 [facility] Work Phone: Potassium [Moles/Vol] 4.0 mmol/L 3.5-5.1 [facility] Work Phone: Protein [Mass/Vol] 8.3 g/dL 6.4-8.2 [facility] Work Phone: Sodium [Moles/Vol] 135 mmol/L 136-145 [facility] Work Phone: WBC (Bld) [#/Vol] 11.0 10*3/uL 4.4-11.0 [facility] Work Phone: Blood eosinophils/100 leukoc yteson 07-13-2022 Eosinophils/100 WBC (Bld) 0.52 % 0-5 [facility] Work Phone: Blood erythrocytes count (nu mber/volume)on 07-13-2022 RBC (Bld) [#/Vol] 3.85 10*6/uL 4.2-5.4 [facility] Work Phone: Blood hemoglobin measurement (mass/volume)on 07-13-2022 Hemoglobin (Bld) [Mass/Vol] 11.4 g/dL 12.0-15.0 [facility] Work Phone: Blood lymphocytes/100 leukoc yteson 07-13-2022 Lymphocytes/100 WBC (Bld) 4.7 % 19-41 [facility] Work Phone: Blood manual differential co mment interpretation (narrative result)on 07-13-2022 Manual differential comment Reed (Bld) [Interp] SCANNED [facility] Work Phone: [phone] Blood monocytes/100 leukocyt eson 07-13-2022 Monocytes/100 WBC (Bld) 3.7 % 0-10 [facility] Work Phone: Blood platelet mean volumeon 07-13-2022 Platelet mean volume (Bld) [Entitic vol] 12.2 fL 6.2-12.0 [facility] Work Phone: Determination of erythrocyte mean corpuscular volume (MCV)on 07-13-2022 MCV (RBC) [Entitic vol] 91.4 fL 81-99 [facility] Work Phone: Hematocrit Auto (Bld) [Volum e fraction]on 07-13-2022 Hematocrit (Bld) [Volume fraction] 35.2 % 37-47 [facility] Work Phone: INR in Blood by Coagulation assayon 07-13-2022 INR Coag (Bld) [Relative time] 1.3 {INR} [facility] Work Phone: Laboratory - Chemistry and C hemistry - challengeon 07-13-2022 ALP [Catalytic activity/Vol] 112 U/L 45-117 [facility] Work Phone: ALT [Catalytic activity/Vol] 46 U/L 13-56 [facility] Work Phone: CO2 [Moles/Vol] 22.0 mmol/L 21.0-32.0 [facility] Work Phone: [phone] Globulin (S) [Mass/Vol] 4.7 g/dL 2.2-4.2 [facility] Work Phone: [phone] Magnesium [Mass/Vol] 1.5 mg/dL 1.6-2.6 [facility] Work Phone: [phone] Urea nitrogen/Creatinine [Mass ratio] 12.9 mg/mg 10-20 [facility] Work Phone: [phone] Laboratory - Coagulationon 0 07-13-2022 aPTT Coag (Bld) [Time] 38.7 s 24.1-36.2 [facility] Work Phone: [phone] PT Coag (PPP) [Time] 16.0 s 11.7-14.9 [facility] Work Phone: [phone] Laboratory - Hematology and Cell countson 07-13-2022 Erythrocyte distribution width (RBC) [Entitic vol] 49.2 fL 35.1-43.9 [facility] Work Phone: [phone] Erythrocyte distribution width (RBC) [Ratio] 14.6 % 11.6-14.6 [facility] Work Phone: [phone] Immature granulocytes/100 WBC (Bld) 1.000 % 0.0-0.9 [facility] Work Phone: [phone] Comment on above: IG% - Immature Granu locytes (promyelocytes, myelocytes and metamyelocytes) > 1% indicates that a LEFT SHIFT is Present. MCH (RBC) [Entitic mass] 29.6 pg 27.0-32.0 [facility] Work Phone: [phone] Nucleated RBC/100 WBC (Bld) [Ratio] 0 % 0-5 [facility] Work Phone: [phone] MCHC Auto (RBC) [Mass/Vol]on 07-13-2022 MCHC (RBC) [Mass/Vol] 32.4 g/dL 32-36 [facility] Work Phone: [phone] No Panel Informationon 07-13 Estimated Creatinine Clearance Calc 82.75 ml/min [facility] Work Phone: Estimated GFR (MDRD) Amer 90 mL/min >60 [facility] Work Phone: Comment on above: GFR Calc Estimated GFR (MDRD) Non-Af Amer 74 mL/min >60 [facility] Work Phone: Comment on above: Non- GFR Calc Platelets bldon 07-13-2022 Platelets (Bld) [#/Vol] 70 10*3/uL 150-450 [facility] Work Phone: [phone] Serum or plasma albumin peewee urement (mass/volume)on 07-13-2022 Albumin [Mass/Vol] 3.6 g/dL 3.2-5.0 [facility] Work Phone: Serum or plasma albumin/glob ulin mass ratioon 07-13-2022 Albumin/Globulin [Mass ratio] 0.8 {ratio} 0.9-2.4 [facility] Work Phone: [phone] Serum or plasma calcium peewee urement (mass/volume)on 07-13-2022 Calcium [Mass/Vol] 9.0 mg/dL 8.5-10.1 [facility] Work Phone: [phone] Serum or plasma creatinine m easurement (mass/volume)on 07-13-2022 Creatinine [Mass/Vol] 0.86 mg/dL 0.55-1.02 [facility] Work Phone: Comment on above: The validity of the calculated GFR & GFRAA in patients over 70 years has not been determined. Clinical correlation is essential. Serum or plasma urea nitroge n measurement (mass/volume)on 07-13-2022 Urea nitrogen [Mass/Vol] 11 mg/dL 7-18 [facility] Work Phone: [phone] Thin prep Papanicolaou smear with manual screeningon 07-13-2022 Thin prep Papanicolaou smear with manual screening 63 U/L 15-37 [facility] Work Phone: [phone] Thin prep Papanicolaou smear with manual screening 10 5-15 [facility] Work Phone: Absolute lymphocyte counton 06-04-2022 Lymphocytes Auto (Unsp spec) [#/Vol] 1.02 10*3/uL 0.83-4.51 [facility] Work Phone: Basophil percentageon 2021 Basophils/100 WBC (Bld) 0.3 % 0-1 [facility] Work Phone: [phone] Bilirubin [Mass/Vol] 1.40 mg/dL 0.20-1.00 [facility] Work Phone: Comment on above: For patients on eltr ombopag therapy, use of Dimension [place] TBIL is not recommended. Chloride [Moles/Vol] 109 mmol/L 98-107 [facility] Work Phone: Eosinophils/100 WBC (Bld) 1.9 % 0-5 [facility] Work Phone: Glucose [Mass/Vol] 113 mg/dL 74-106 [facility] Work Phone: Comment on above: Fasting Glucose resu lt from 100 to 125 mg/dL suggests IMPAIRED HOMEOSTASIS per A.D.A. criteria. Neutrophils (Bld) [#/Vol] 1.8 10*3/uL 2.0-7.7 [facility] Work Phone: Neutrophils/100 WBC (Bld) 55.8 % 47-70 [facility] Work Phone: [phone] Potassium [Moles/Vol] 4.1 mmol/L 3.5-5.1 [facility] Work Phone: [phone] Protein [Mass/Vol] 7.4 g/dL 6.4-8.2 [facility] Work Phone: Sodium [Moles/Vol] 139 mmol/L 136-145 [facility] Work Phone: WBC (Bld) [#/Vol] 3.1 10*3/uL 4.4-11.0 [facility] Work Phone: Blood erythrocytes count (nu mber/volume)on 06-04-2022 RBC (Bld) [#/Vol] 3.56 10*6/uL 4.2-5.4 [facility] Work Phone: Blood hemoglobin measurement (mass/volume)on 06-04-2022 Hemoglobin (Bld) [Mass/Vol] 10.8 g/dL 12.0-15.0 [facility] Work Phone: [phone] Blood lymphocytes/100 leukoc yteson 06-04-2022 Lymphocytes/100 WBC (Bld) 32.5 % 19-41 [facility] Work Phone: [phone] Blood monocytes/100 leukocyt eson 06-04-2022 Monocytes/100 WBC (Bld) 8.9 % 0-10 [facility] Work Phone: [phone] Blood platelet mean volumeon 06-04-2022 Platelet mean volume (Bld) [Entitic vol] 11.9 fL 6.2-12.0 [facility] Work Phone: Determination of erythrocyte mean corpuscular volume (MCV)on 06-04-2022 MCV (RBC) [Entitic vol] 94.9 fL 81-99 [facility] Work Phone: Hematocrit Auto (Bld) [Volum e fraction]on 06-04-2022 Hematocrit (Bld) [Volume fraction] 33.8 % 37-47 [facility] Work Phone: [phone] INR in Blood by Coagulation assayon 06-04-2022 INR Coag (Bld) [Relative time] 1.4 {INR} [facility] Work Phone: Laboratory - Chemistry and C hemistry - challengeon 06-04-2022 ALP [Catalytic activity/Vol] 98 U/L 45-117 [facility] Work Phone: ALT [Catalytic activity/Vol] 33 U/L 13-56 [facility] Work Phone: [phone] CO2 [Moles/Vol] 24.0 mmol/L 21.0-32.0 [facility] Work Phone: Globulin (S) [Mass/Vol] 4.2 g/dL 2.2-4.2 [facility] Work Phone: [phone] Urea nitrogen/Creatinine [Mass ratio] 23.6 mg/mg 10-20 [facility] Work Phone: [phone] Laboratory - Coagulationon 0 06-04-2022 PT Coag (PPP) [Time] 16.5 s 11.7-14.9 [facility] Work Phone: [phone] Laboratory - Hematology and Cell countson 06-04-2022 Erythrocyte distribution width (RBC) [Entitic vol] 49.6 fL 35.1-43.9 [facility] Work Phone: [phone] Erythrocyte distribution width (RBC) [Ratio] 14.3 % 11.6-14.6 [facility] Work Phone: [phone] Immature granulocytes/100 WBC (Bld) 0.600 % 0.0-0.9 [facility] Work Phone: [phone] Comment on above: IG% - Immature Granu locytes (promyelocytes, myelocytes and metamyelocytes) > 1% indicates that a LEFT SHIFT is Present. MCH (RBC) [Entitic mass] 30.3 pg 27.0-32.0 [facility] Work Phone: [phone] Nucleated RBC/100 WBC (Bld) [Ratio] 0 % 0-5 [facility] Work Phone: [phone] MCHC Auto (RBC) [Mass/Vol]on 06-04-2022 MCHC (RBC) [Mass/Vol] 32.0 g/dL 32-36 [facility] Work Phone: No Panel Informationon 06-04 Estimated GFR (MDRD) Amer 137 mL/min >60 [facility] Work Phone: [phone] Comment on above: GFR Calc Estimated GFR (MDRD) Non-Af Amer 113 mL/min >60 [facility] Work Phone: [phone] Comment on above: Non- GFR Calc Platelets bldon 06-04-2022 Platelets (Bld) [#/Vol] 59 10*3/uL 150-450 [facility] Work Phone: [phone] Serum or plasma albumin peewee urement (mass/volume)on 06-04-2022 Albumin [Mass/Vol] 3.2 g/dL 3.2-5.0 [facility] Work Phone: [phone] Serum or plasma albumin/glob ulin mass ratioon 06-04-2022 Albumin/Globulin [Mass ratio] 0.8 {ratio} 0.9-2.4 [facility] Work Phone: [phone] Serum or plasma calcium peewee urement (mass/volume)on 06-04-2022 Calcium [Mass/Vol] 8.9 mg/dL 8.5-10.1 [facility] Work Phone: [phone] Serum or plasma creatinine m easurement (mass/volume)on 06-04-2022 Creatinine [Mass/Vol] 0.59 mg/dL 0.55-1.02 [facility] Work Phone: [phone] Comment on above: The validity of the calculated GFR & GFRAA in patients over 70 years has not been determined. Clinical correlation is essential. Serum or plasma urea nitroge n measurement (mass/volume)on 06-04-2022 Urea nitrogen [Mass/Vol] 14 mg/dL 7-18 [facility] Work Phone: [phone] Thin prep Papanicolaou smear with manual screeningon 06-04-2022 Thin prep Papanicolaou smear with manual screening 40 U/L 15-37 [facility] Work Phone: [phone] Thin prep Papanicolaou smear with manual screening 6 5-15 [facility] Work Phone: [phone] Absolute lymphocyte counton 03-23-2022 Lymphocytes Auto (Unsp spec) [#/Vol] 0.93 10*3/uL 0.83-4.51 [facility] Work Phone: [phone] Basophil percentageon 2021 Ammonia (P) [Moles/Vol] 50.0 umol/L 11-32 [facility] Work Phone: Basophils/100 WBC (Bld) 0.4 % 0-1 [facility] Work Phone: Bilirubin [Mass/Vol] 1.60 mg/dL 0.20-1.00 [facility] Work Phone: Comment on above: For patients on eltr ombopag therapy, use of Dimension [place] TBIL is not recommended. Chloride [Moles/Vol] 110 mmol/L 98-107 [facility] Work Phone: Eosinophils/100 WBC (Bld) 1.1 % 0-5 [facility] Work Phone: Glucose [Mass/Vol] 129 mg/dL 74-106 [facility] Work Phone: Comment on above: Fasting Glucose resu lt greater than or equal to 126 mg/dL suggests DIABETES MELLITUS per A.D.A. criteria. Neutrophils (Bld) [#/Vol] 1.6 10*3/uL 2.0-7.7 [facility] Work Phone: Neutrophils/100 WBC (Bld) 58.7 % 47-70 [facility] Work Phone: Potassium [Moles/Vol] 4.1 mmol/L 3.5-5.1 [facility] Work Phone: Protein [Mass/Vol] 7.4 g/dL 6.4-8.2 [facility] Work Phone: Sodium [Moles/Vol] 139 mmol/L 136-145 [facility] Work Phone: WBC (Bld) [#/Vol] 2.8 10*3/uL 4.4-11.0 [facility] Work Phone: Blood erythrocytes count (nu mber/volume)on 03-23-2022 RBC (Bld) [#/Vol] 3.12 10*6/uL 4.2-5.4 [facility] Work Phone: Blood hemoglobin measurement (mass/volume)on 03-23-2022 Hemoglobin (Bld) [Mass/Vol] 10.0 g/dL 12.0-15.0 [facility] Work Phone: Blood lymphocytes/100 leukoc yteson 03-23-2022 Lymphocytes/100 WBC (Bld) 33.3 % 19-41 [facility] Work Phone: Blood manual differential co mment interpretation (narrative result)on 03-23-2022 Manual differential comment Reed (Bld) [Interp] SCANNED [facility] Work Phone: Comment on above: THROMBOCYTOPENIA NOT ED Blood monocytes/100 leukocyt eson 03-23-2022 Monocytes/100 WBC (Bld) 6.5 % 0-10 [facility] Work Phone: Blood platelet mean volumeon 03-23-2022 Platelet mean volume (Bld) [Entitic vol] 10.7 fL 6.2-12.0 [facility] Work Phone: Determination of erythrocyte mean corpuscular volume (MCV)on 03-23-2022 MCV (RBC) [Entitic vol] 96.8 fL 81-99 [facility] Work Phone: Erythrocyte sedimentation ra kayli 03-23-2022 ESR (Bld) [Velocity] 27 mm/h 0-30 [facility] Work Phone: Hematocrit Auto (Bld) [Volum e fraction]on 03-23-2022 Hematocrit (Bld) [Volume fraction] 30.2 % 37-47 [facility] Work Phone: INR in Blood by Coagulation assayon 03-23-2022 INR Coag (Bld) [Relative time] 1.5 {INR} [facility] Work Phone: Laboratory - Chemistry and C hemistry - challengeon 03-23-2022 ALP [Catalytic activity/Vol] 90 U/L 45-117 [facility] Work Phone: ALT [Catalytic activity/Vol] 33 U/L 13-56 [facility] Work Phone: CO2 [Moles/Vol] 23.0 mmol/L 21.0-32.0 [facility] Work Phone: Globulin (S) [Mass/Vol] 4.1 g/dL 2.2-4.2 [facility] Work Phone: [phone] Urea nitrogen/Creatinine [Mass ratio] 15.9 mg/mg 10-20 [facility] Work Phone: [phone] Laboratory - Coagulationon 0 03-23-2022 PT Coag (PPP) [Time] 17.5 s 11.7-14.9 [facility] Work Phone: [phone] Laboratory - Hematology and Cell countson 03-23-2022 Erythrocyte distribution width (RBC) [Entitic vol] 52.6 fL 35.1-43.9 [facility] Work Phone: [phone] Erythrocyte distribution width (RBC) [Ratio] 14.8 % 11.6-14.6 [facility] Work Phone: [phone] Immature granulocytes/100 WBC (Bld) 0.000 % 0.0-0.9 [facility] Work Phone: [phone] Comment on above: IG% - Immature Granu locytes (promyelocytes, myelocytes and metamyelocytes) > 1% indicates that a LEFT SHIFT is Present. MCH (RBC) [Entitic mass] 32.1 pg 27.0-32.0 [facility] Work Phone: [phone] Nucleated RBC/100 WBC (Bld) [Ratio] 0 % 0-5 [facility] Work Phone: [phone] MCHC Auto (RBC) [Mass/Vol]on 03-23-2022 MCHC (RBC) [Mass/Vol] 33.1 g/dL 32-36 [facility] Work Phone: [phone] No Panel Informationon 03-23 Miscellaneous Test See comment [facility] Work Phone: [phone] Comment on above: TEST RESULT LIMITSSo luble Liver Ag (IgG Ab) Anti-SLA, IgG 3.4 units 0.0-20.0 Negative 0.0 - 20.0 Equivocal 20.1 - 24.9 Positive >24.9 TESTING PERFORMED AT [facility]. ORIGINAL REPORT ON FILE IN LAB CONTAINS ADDITIONAL TEST SITE INFORMATION. Estimated GFR (MDRD) Amer 104 mL/min >60 [facility] Work Phone: Comment on above: GFR Calc Estimated GFR (MDRD) Non-Af Amer 86 mL/min >60 [facility] Work Phone: Comment on above: Non- GFR Calc Platelets bldon 03-23-2022 Platelets (Bld) [#/Vol] 68 10*3/uL 150-450 [facility] Work Phone: [phone] Serum or plasma C reactive p rotein measurement (mass/volume)on 03-23-2022 CRP [Mass/Vol] 4.69 mg/L 0.0-3.0 [facility] Work Phone: Comment on above: C-Reactive Protein ( CRP) provides useful information for thediagnosis, therapy and monitoring of inflammatory processesand associated diseases. For the evaluation of Relative Riskfor Cardiovascular Disease, a High Sensitivity CRP (HSCRP)should be ordered. Serum or plasma albumin peewee urement (mass/volume)on 03-23-2022 Albumin [Mass/Vol] 3.3 g/dL 3.2-5.0 [facility] Work Phone: [phone] Serum or plasma albumin/glob ulin mass ratioon 03-23-2022 Albumin/Globulin [Mass ratio] 0.8 {ratio} 0.9-2.4 [facility] Work Phone: Serum or plasma calcium peewee urement (mass/volume)on 03-23-2022 Calcium [Mass/Vol] 8.5 mg/dL 8.5-10.1 [facility] Work Phone: Serum or plasma creatinine m easurement (mass/volume)on 03-23-2022 Creatinine [Mass/Vol] 0.76 mg/dL 0.55-1.02 [facility] Work Phone: Comment on above: The validity of the calculated GFR & GFRAA in patients over 70 years has not been determined. Clinical correlation is essential. Serum or plasma urea nitroge n measurement (mass/volume)on 03-23-2022 Urea nitrogen [Mass/Vol] 12 mg/dL 7-18 [facility] Work Phone: Thin prep Papanicolaou smear with manual screeningon 03-23-2022 Thin prep Papanicolaou smear with manual screening 42 U/L 15-37 [facility] Work Phone: [phone] Thin prep Papanicolaou smear with manual screening 6 5-15 [facility] Work Phone: Thin prep Papanicolaou smear with manual screening 148 U/L 84-246 [facility] Work Phone: Absolute lymphocyte counton 03-05-2022 Lymphocytes Auto (Unsp spec) [#/Vol] 0.92 10*3/uL 0.83-4.51 [facility] Work Phone: Basophil percentageon 2021 Ammonia (P) [Moles/Vol] 12.0 umol/L 11-32 [facility] Work Phone: Basophils/100 WBC (Bld) 0.4 % 0-1 [facility] Work Phone: Bilirubin [Mass/Vol] 1.80 mg/dL 0.20-1.00 [facility] Work Phone: Comment on above: For patients on eltr ombopag therapy, use of Dimension [place] TBIL is not recommended. Chloride [Moles/Vol] 111 mmol/L 98-107 [facility] Work Phone: Eosinophils/100 WBC (Bld) 1.5 % 0-5 [facility] Work Phone: Glucose [Mass/Vol] 90 mg/dL 74-106 [facility] Work Phone: Neutrophils (Bld) [#/Vol] 1.5 10*3/uL 2.0-7.7 [facility] Work Phone: Neutrophils/100 WBC (Bld) 56.7 % 47-70 [facility] Work Phone: Potassium [Moles/Vol] 4.1 mmol/L 3.5-5.1 [facility] Work Phone: Protein [Mass/Vol] 8.4 g/dL 6.4-8.2 [facility] Work Phone: Sodium [Moles/Vol] 139 mmol/L 136-145 [facility] Work Phone: WBC (Bld) [#/Vol] 2.6 10*3/uL 4.4-11.0 [facility] Work Phone: Blood erythrocytes count (nu mber/volume)on 03-05-2022 RBC (Bld) [#/Vol] 3.56 10*6/uL 4.2-5.4 [facility] Work Phone: Blood hemoglobin measurement (mass/volume)on 03-05-2022 Hemoglobin (Bld) [Mass/Vol] 11.3 g/dL 12.0-15.0 [facility] Work Phone: Blood lymphocytes/100 leukoc yteson 03-05-2022 Lymphocytes/100 WBC (Bld) 35.2 % 19-41 [facility] Work Phone: Blood monocytes/100 leukocyt eson 03-05-2022 Monocytes/100 WBC (Bld) 5.4 % 0-10 [facility] Work Phone: Blood platelet adequacy dete ction by light microscopyon 03-05-2022 Platelets LM Ql (Bld) MKD DEC ADEQ [facility] Work Phone: Blood platelet mean volumeon 03-05-2022 Platelet mean volume (Bld) [Entitic vol] 12.3 fL 6.2-12.0 [facility] Work Phone: Determination of erythrocyte mean corpuscular volume (MCV)on 03-05-2022 MCV (RBC) [Entitic vol] 92.1 fL 81-99 [facility] Work Phone: Hematocrit Auto (Bld) [Volum e fraction]on 03-05-2022 Hematocrit (Bld) [Volume fraction] 32.8 % 37-47 [facility] Work Phone: INR in Blood by Coagulation assayon 03-05-2022 INR Coag (Bld) [Relative time] 1.3 {INR} [facility] Work Phone: Laboratory - Chemistry and C hemistry - challengeon 03-05-2022 ALP [Catalytic activity/Vol] 85 U/L 45-117 [facility] Work Phone: ALT [Catalytic activity/Vol] 36 U/L 13-56 [facility] Work Phone: CO2 [Moles/Vol] 23.0 mmol/L 21.0-32.0 [facility] Work Phone: Globulin (S) [Mass/Vol] 4.8 g/dL 2.2-4.2 [facility] Work Phone: Urea nitrogen/Creatinine [Mass ratio] 18.1 mg/mg 10-20 [facility] Work Phone: Laboratory - Coagulationon 0 03-05-2022 aPTT Coag (Bld) [Time] 38.7 s 24.1-36.2 [facility] Work Phone: PT Coag (PPP) [Time] 16.2 s 11.7-14.9 [facility] Work Phone: Laboratory - Hematology and Cell countson 03-05-2022 Erythrocyte distribution width (RBC) [Entitic vol] 49.3 fL 35.1-43.9 [facility] Work Phone: Erythrocyte distribution width (RBC) [Ratio] 14.6 % 11.6-14.6 [facility] Work Phone: [phone] Immature granulocytes/100 WBC (Bld) 0.800 % 0.0-0.9 [facility] Work Phone: [phone] Comment on above: IG% - Immature Granu locytes (promyelocytes, myelocytes and metamyelocytes) > 1% indicates that a LEFT SHIFT is Present. MCH (RBC) [Entitic mass] 31.7 pg 27.0-32.0 [facility] Work Phone: [phone] Nucleated RBC/100 WBC (Bld) [Ratio] 0 % 0-5 [facility] Work Phone: [phone] MCHC Auto (RBC) [Mass/Vol]on 03-05-2022 MCHC (RBC) [Mass/Vol] 34.5 g/dL 32-36 [facility] Work Phone: [phone] No Panel Informationon 03-05 Estimated GFR (MDRD) Amer 133 mL/min >60 [facility] Work Phone: [phone] Comment on above: GFR Calc Estimated GFR (MDRD) Non-Af Amer 110 mL/min >60 [facility] Work Phone: [phone] Comment on above: Non- GFR Calc Platelets bldon 03-05-2022 Platelets (Bld) [#/Vol] 59 10*3/uL 150-450 [facility] Work Phone: [phone] Serum or plasma albumin peewee urement (mass/volume)on 03-05-2022 Albumin [Mass/Vol] 3.6 g/dL 3.2-5.0 [facility] Work Phone: [phone] Serum or plasma albumin/glob ulin mass ratioon 03-05-2022 Albumin/Globulin [Mass ratio] 0.8 {ratio} 0.9-2.4 [facility] Work Phone: [phone] Serum or plasma calcium peewee urement (mass/volume)on 03-05-2022 Calcium [Mass/Vol] 9.6 mg/dL 8.5-10.1 [facility] Work Phone: Serum or plasma creatinine m easurement (mass/volume)on 03-05-2022 Creatinine [Mass/Vol] 0.61 mg/dL 0.55-1.02 [facility] Work Phone: Comment on above: The validity of the calculated GFR & GFRAA in patients over 70 years has not been determined. Clinical correlation is essential. Serum or plasma urea nitroge n measurement (mass/volume)on 03-05-2022 Urea nitrogen [Mass/Vol] 11 mg/dL 7-18 [facility] Work Phone: Thin prep Papanicolaou smear with manual screeningon 03-05-2022 Thin prep Papanicolaou smear with manual screening 45 U/L 15-37 [facility] Work Phone: Thin prep Papanicolaou smear with manual screening 5 5-15 [facility] Work Phone: ELASTOGRAPHY WITH IMAGINGon 02-05-2022 ELASTOGRAPHY WITH IMAGING US ABDOMEN LIMITED, ELASTOGRAPHY WITH IMAGING Ordering Physician: Leodan Sarabia DO 02/05/2022 11:12 AM ULTRASOUND ABDOMEN LIMITED, ELASTOGRAPHY WITH IMAGING Clinical Statement: Fatty liver. Comparison: None FINDINGS: Pancreas: Normal sonographic appearance. Portions obscured: tail Liver: 19 cm in length. Echotexture: Coarse Echogenicity: Increased Surface contour: Smooth Lesions: None. Biliary: No intrahepatic biliary duct dilation. CBD: 0.3 cm at the hilum. Gallbladder: Dilated -Contents: Cholelithiasis and sludge present -Wall: Normal 2 mm -Other: No pericholecystic fluid. Right Kidney: 10.4 cm. No hydronephrosis. Ascites: None. LIVER ELASTOGRAPHY: ARFI median: 3.37 m/s IQR - 0.7 IQR/median ratio = 0.21 (must be 0.3 or less to ensure technical adequacy) Recommendation for Interpretation of Liver Stiffness Values Obtained with ARFI Techniques in Patients with Viral Hepatitis and NAFLD: Liver Stiffness Value: Recommendation: <=kPa (1.3 m/sec) High probability of being normal <9 kPa (1.7 m/sec) In absence of other known clinical signs, rules out cACLD. If known clinical signs, may need further test for confirmation. 9-13 kPa (1.7-2.1 m/sec) Suggestive of cACLD but need further test for confirmation > 13 kPa (2.1 m/sec) Rules in cACLD > 17 kPa (2.4 m/sec) Suggestive of CSPH ARFI = acoustic radiation force impulse cACLD = compensated advanced chronic liver disease CSPH = clinically significant portal hypertension NAFLD = non-alcoholic fatty liver disease IMPRESSION: 1. Enlarged liver with diffuse hepatic steatosis versus other nonspecific diffuse chronic hepatocellular process. 2. Liver elastography results are suggestive of clinically significant portal hypertension. 3. Hydropic gallbladder with dependent sludge and small stones. No secondary features of acute cholecystitis. 4. No bile duct dilatation. 5. Unremarkable pancreas with pancreatic tail visualization limited by overlying bowel. Dictated by Assistant City Attorney: Whitney Love DO I, Clark Corrales MD, have supervised the procedure and/or image review, and agree with the above interpretation and report. This report was electronically signed by Clark Corrales MD 02/05/2022 12:09 PM Reported By: CLARK CORRALES M.D. Signed By: CLARK CORRALES M.D. [facility] NDX.[facility] 02-05-[address] Date of : [address] [address] Unit Number: [id number] Neurodiagnostic Note Patient Status: REG CLI Attending Doctor: Robert Pearson MD Service Date: 02/05/221700 Neurodiagnostic Note Allergies Coded Allergies: NO KNOWN ALLERGENS (02/01/22) Diagnosis R20.2-Paresthesia of Skin, 663-Polyneuropathy EMG/NCT 35260-VEA (4 extremity EMG), 85567-KHB 13+ Studies Disclaimer This dictation was created using voice recognition software. Phonetic and/or minor grammatical errors may exist. eSign Date and Time Linn Lee DO Verified/Reviewed by 02/05/221701 [facility] Neurodiagnostic Note Normal [facility] US ABDOMEN LIMITEDon 022 US ABDOMEN LIMITED US ABDOMEN LIMITED, ELASTOGRAPHY WITH IMAGING Ordering Physician: Leodan Sarabia DO 02/05/2022 11:12 AM ULTRASOUND ABDOMEN LIMITED, ELASTOGRAPHY WITH IMAGING Clinical Statement: Fatty liver. Comparison: None FINDINGS: Pancreas: Normal sonographic appearance. Portions obscured: tail Liver: 19 cm in length. Echotexture: Coarse Echogenicity: Increased Surface contour: Smooth Lesions: None. Biliary: No intrahepatic biliary duct dilation. CBD: 0.3 cm at the hilum. Gallbladder: Dilated -Contents: Cholelithiasis and sludge present -Wall: Normal 2 mm -Other: No pericholecystic fluid. Right Kidney: 10.4 cm. No hydronephrosis. Ascites: None. LIVER ELASTOGRAPHY: ARFI median: 3.37 m/s IQR - 0.7 IQR/median ratio = 0.21 (must be 0.3 or less to ensure technical adequacy) Recommendation for Interpretation of Liver Stiffness Values Obtained with ARFI Techniques in Patients with Viral Hepatitis and NAFLD: Liver Stiffness Value: Recommendation: <=kPa (1.3 m/sec) High probability of being normal <9 kPa (1.7 m/sec) In absence of other known clinical signs, rules out cACLD. If known clinical signs, may need further test for confirmation. 9-13 kPa (1.7-2.1 m/sec) Suggestive of cACLD but need further test for confirmation > 13 kPa (2.1 m/sec) Rules in cACLD > 17 kPa (2.4 m/sec) Suggestive of CSPH ARFI = acoustic radiation force impulse cACLD = compensated advanced chronic liver disease CSPH = clinically significant portal hypertension NAFLD = non-alcoholic fatty liver disease IMPRESSION: 1. Enlarged liver with diffuse hepatic steatosis versus other nonspecific diffuse chronic hepatocellular process. 2. Liver elastography results are suggestive of clinically significant portal hypertension. 3. Hydropic gallbladder with dependent sludge and small stones. No secondary features of acute cholecystitis. 4. No bile duct dilatation. 5. Unremarkable pancreas with pancreatic tail visualization limited by overlying bowel. Dictated by Assistant City Attorney: Whitney Love DO I, Clark Corrales MD, have supervised the procedure and/or image review, and agree with the above interpretation and report. This report was electronically signed by Clark Corrales MD 02/05/2022 12:09 PM Reported By: CLARK CORRALES M.D. Signed By: CLARK CORRALES M.D. [facility] 02-01-2022 Albumin [Mass/Vol] 3.6 g/dL Normal 3.2-5.0 [facility] Comment on above: Performed By: #### L 500.12752, L500.66988, L500.54724, L500.23903 #### [facility] [place] [address] Albumin/Globulin [Mass ratio] 1.0 {ratio} Normal 0.8-2.0 [facility] Comment on above: Performed By: #### L 500.60044, L500.11233, L500.96258, L500.75613 #### [facility] [address] [place] [address] ALK PHOS 68 U/L Normal 45-117 [facility] Comment on above: Performed By: #### L 500.40551, L500.99351, L500.60302, L500.65125 #### [facility] [address] [place] [address] ALT [Catalytic activity/Vol] 21 U/L Normal 13-61 [facility] Comment on above: Result Comment: RESU LTS MAY BE FALSELY DEPRESSED AFTER THE ADMINISTRATION OF SULFASALAZINE AND/OR SULFAPYRIDINE. Performed By: #### L 500.32642, L500.31086, L500.03994, L500.55873 #### [facility] [address] [place] [address] Anion gap [Moles/Vol] 11 mmol/L Normal 5-16 [facility] Comment on above: Performed By: #### L 500.96711, L500.29668, L500.74938, L500.34127 #### [facility] [address] [place] [address] AST [Catalytic activity/Vol] 39 U/L High 8-34 [facility] Comment on above: Result Comment: RESU LTS MAY BE FALSELY DEPRESSED AFTER THE ADMINISTRATION OF SULFASALAZINE AND/OR SULFAPYRIDINE. Performed By: #### L 500.78261, L500.80960, L500.45093, L500.35047 #### [facility] [place] [address] BILI TOTAL 3.40 MG/DL High 0.2-1.0 [facility] Comment on above: Performed By: #### L 500.54106, L500.81461, L500.16727, L500.29583 #### [facility] [address] [place] [address] Calcium [Mass/Vol] 9.9 mg/dL Normal 8.5-10.5 [facility] Comment on above: Result Comment: NOTE NEW NORMAL RANGE DUE TO REAGENT CHANGE Performed By: #### L 500.97259, L500.38498, L500.80771, L500.99983 #### [facility] [address] [place] [address] Chloride [Moles/Vol] 107 mmol/L Normal 98-107 [facility] Comment on above: Performed By: #### L 500.39662, L500.22019, L500.44413, L500.36692 #### [facility] [place] [address] CO2 [Moles/Vol] 23.0 mmol/L Normal 21-32 [facility] Comment on above: Performed By: #### L 500.73378, L500.76346, L500.19333, L500.12595 #### [facility] [address] [place], [place] [address] Creatinine [Mass/Vol] 0.58 mg/dL Normal 0.510-0.950 [facility] Comment on above: Result Comment: Aretha ents receiving either N-Acetylcysteine (NAC) or Metamizole prior to venipuncture, may have falsely depressed results. Performed By: #### L 500.82060, L500.80848, L500.22999, L500.65162 #### [facility] [address] [place] [address] Globulin (S) [Mass/Vol] 3.5 g/dL Normal 2.2-4.2 [facility] Comment on above: Performed By: #### L 500.74088, L500.96555, L500.30152, L500.06743 #### [facility] [address] [place] [address] Glucose [Mass/Vol] 90 mg/dL Normal 70-100 [facility] Comment on above: Result Comment: 70-1 00- Normal Fasting; 100-125 Impaired Fasting; greater than 126 on more than one result- Diabetes. ADA guidelines. Results may be falsely elevated after the administration of Sulfapyridine. Results may be falsely depressed after the administration of Sulfasalazine. Performed By: #### L 500.20838, L500.03173, L500.68904, L500.99529 #### [facility] [address] [place] [address] Potassium [Moles/Vol] 4.0 mmol/L Normal 3.5-5.1 [facility] Comment on above: Performed By: #### L 500.96409, L500.62082, L500.11590, L500.55175 #### [facility] [address] [place] [address] Protein [Mass/Vol] 7.1 g/dL Normal 6.0-8.5 [facility] Comment on above: Performed By: #### L 500.48476, L500.32982, L500.17098, L500.04786 #### [facility] [address] [place] [address] Sodium [Moles/Vol] 141 mmol/L Normal 136-145 [facility] Comment on above: Performed By: #### L 500.27333, L500.51375, L500.75679, L500.27826 #### [facility] [place] [address] Urea nitrogen [Mass/Vol] 12 mg/dL Normal 7-26 [facility] Comment on above: Performed By: #### L 500.79077, L500.93722, L500.56818, L500.72283 #### [facility] [address] [place] [address] Urea nitrogen/Creatinine [Mass ratio] 21 mg/mg Normal 15-24 [facility] Comment on above: Performed By: #### L 500.74677, L500.36580, L500.56751, L500.74608 #### [facility] [address] [place] [address] GFR ESTon 02-01-2022 IF AMER Greater than 60 Normal [facility] Comment on above: Performed By: #### L 500.64834, L500.91324, L500.41181, L500.59862 #### [facility] [address] [place], [place] [address] IF non-AFR AMER Greater than 60 Normal [facility] Comment on above: Performed By: #### L 500.77927, L500.52112, L500.48224, L500.77988 #### [facility] [place] [address] LIPIDon 02-01-2022 CHOL 184 MG/dL Normal 0-199 [facility] Comment on above: Performed By: #### L 500.03582 #### [facility] LABORATORY [address] [place] [address]347 Cholesterol in HDL [Mass/Vol] 27 mg/dL Low GREATER THAN 40 [facility] Comment on above: Result Comment: Aretha ents receiving Metamizole prior to venipuncture, may have falsely depressed results. Performed By: #### L 500.36590 #### [facility] [address] [place] [address] Cholesterol in LDL [Mass/Vol] 135 mg/dL Normal [facility] Comment on above: Result Comment: ___C HOLESTEROL/HDL RATIO RISK___ CHD RISK = Total CHOL LDL HDL (CHOL/HDL) Recommended <200 <130 >40 <3.4 Borderline 200-239 130-159 3.4-4.99 High >240 >160 >5.0 Performed By: #### L 500.83950 #### [facility] [address] [place] [address] Triglyceride [Mass/Vol] 110 mg/dL Normal 30-149 [facility] Comment on above: Result Comment: Aretha ents receiving either N-Acetylcysteine (NAC) or Metamizole prior to venipuncture, may have falsely depressed results. Performed By: #### L 500.97757 #### [facility] [address] [place] [address] TSHon 02-01-2022 TSH 3.218 UIU/ML Normal 0.358-3.740 [facility] Comment on above: Result Comment: 3rd generation ultra sensitive TSH Performed By: #### L 500.59709 #### [facility] [address] [place] [address] Absolute lymphocyte counton 01-26-2022 Lymphocytes Auto (Unsp spec) [#/Vol] 1.04 10*3/uL 0.83-4.51 [facility] Work Phone: Atypical perinuclear antineu trophil cytoplasmic antibodies measurementon 01-26-2022 Neutrophil cytoplasmic Ab.perinuclear.atypic al IF (S) [Titer] <1:20 titer Neg:<1:20 [facility] Work Phone: Comment on above: The atypical pANCA p attern has been observed in asignificant percentage of patients with ulcerative colitis,primary sclerosing cholangitis and autoimmune hepatitis. Basophil percentageon 2021 Ammonia (P) [Moles/Vol] 33.0 umol/L 11-32 [facility] Work Phone: Basophil percentage < 0.2 AI [facility] Work Phone: Basophils/100 WBC (Bld) 0.4 % 0-1 [facility] Work Phone: Bilirubin [Mass/Vol] 2.20 mg/dL 0.20-1.00 [facility] Work Phone: Comment on above: For patients on eltr ombopag therapy, use of Dimension [place] TBIL is not recommended. Chloride [Moles/Vol] 111 mmol/L 98-107 [facility] Work Phone: Eosinophils/100 WBC (Bld) 1.1 % 0-5 [facility] Work Phone: Glucose [Mass/Vol] 100 mg/dL 74-106 [facility] Work Phone: Comment on above: Fasting Glucose resu lt from 100 to 125 mg/dL suggests IMPAIRED HOMEOSTASIS per A.D.A. criteria. Neutrophils (Bld) [#/Vol] 1.4 10*3/uL 2.0-7.7 [facility] Work Phone: Neutrophils/100 WBC (Bld) 53.1 % 47-70 [facility] Work Phone: Potassium [Moles/Vol] 4.0 mmol/L 3.5-5.1 [facility] Work Phone: Protein [Mass/Vol] 7.7 g/dL 6.4-8.2 [facility] Work Phone: Sodium [Moles/Vol] 140 mmol/L 136-145 [facility] Work Phone: WBC (Bld) [#/Vol] 2.7 10*3/uL 4.4-11.0 [facility] Work Phone: Blood erythrocytes count (nu mber/volume)on 01-26-2022 RBC (Bld) [#/Vol] 3.24 10*6/uL 4.2-5.4 [facility] Work Phone: Blood hemoglobin measurement (mass/volume)on 01-26-2022 Hemoglobin (Bld) [Mass/Vol] 10.4 g/dL 12.0-15.0 [facility] Work Phone: Blood lymphocytes/100 leukoc yteson 01-26-2022 Lymphocytes/100 WBC (Bld) 38.4 % 19-41 [facility] Work Phone: Blood monocytes/100 leukocyt eson 01-26-2022 Monocytes/100 WBC (Bld) 6.6 % 0-10 [facility] Work Phone: Blood platelet adequacy dete ction by light microscopyon 01-26-2022 Platelets LM Ql (Bld) MOD DEC ADEQ [facility] Work Phone: Blood platelet mean volumeon 01-26-2022 Platelet mean volume (Bld) [Entitic vol] 11.7 fL 6.2-12.0 [facility] Work Phone: [phone] Determination of erythrocyte mean corpuscular volume (MCV)on 01-26-2022 MCV (RBC) [Entitic vol] 95.7 fL 81-99 [facility] Work Phone: [phone] HIV 1 and HIV-2 antibody ass ay with HIV-1 p24 antigen detectionon 01-26-2022 HIV 1+2 Ab+HIV1 p24 Ag IA Ql Non-Reactive Nonreactive [facility] Work Phone: [phone] Hematocrit Auto (Bld) [Volum e fraction]on 01-26-2022 Hematocrit (Bld) [Volume fraction] 31.0 % 37-47 [facility] Work Phone: [phone] Laboratory - Chemistry and C hemistry - challengeon 01-26-2022 ALP [Catalytic activity/Vol] 65 U/L 45-117 [facility] Work Phone: [phone] ALT [Catalytic activity/Vol] 29 U/L 13-56 [facility] Work Phone: [phone] CO2 [Moles/Vol] 24.0 mmol/L 21.0-32.0 [facility] Work Phone: [phone] Globulin (S) [Mass/Vol] 4.2 g/dL 2.2-4.2 [facility] Work Phone: [phone] Urea nitrogen/Creatinine [Mass ratio] 18.4 mg/mg 10-20 [facility] Work Phone: [phone] Laboratory - Hematology and Cell countson 01-26-2022 Erythrocyte distribution width (RBC) [Entitic vol] 51.3 fL 35.1-43.9 [facility] Work Phone: [phone] Erythrocyte distribution width (RBC) [Ratio] 14.6 % 11.6-14.6 [facility] Work Phone: [phone] Immature granulocytes/100 WBC (Bld) 0.400 % 0.0-0.9 [facility] Work Phone: [phone] Comment on above: IG% - Immature Granu locytes (promyelocytes, myelocytes and metamyelocytes) > 1% indicates that a LEFT SHIFT is Present. MCH (RBC) [Entitic mass] 32.1 pg 27.0-32.0 [facility] Work Phone: [phone] Nucleated RBC/100 WBC (Bld) [Ratio] 0 % 0-5 [facility] Work Phone: [phone] MCHC Auto (RBC) [Mass/Vol]on 01-26-2022 MCHC (RBC) [Mass/Vol] 33.5 g/dL 32-36 [facility] Work Phone: [phone] No Panel Informationon 01-26 Centromere B Antibody <0.2 AI [facility] Work Phone: [phone] Ceruloplasmin 22.9 mg/dL [facility] Work Phone: [phone] Estimated GFR (MDRD) Amer 136 mL/min >60 [facility] Work Phone: [phone] Comment on above: GFR Calc Estimated GFR (MDRD) Non-Af Amer 112 mL/min >60 [facility] Work Phone: [phone] Comment on above: Non- GFR Calc Haptoglobin 30 mg/dL [facility] Work Phone: [phone] Comment on above: Performed at: - [address] [id number] Director: Addison Hernandez PhD, Phone: [phone] at: - [facility] [id number] Director: Jamal Dang MD, Phone: [phone] Hepatitis A IgM Antibody Negative Negative [facility] Work Phone: [phone] Hepatitis B Core IgM Antibody Negative Negative [facility] Work Phone: [phone] Hepatitis C Antibody (EIA) 0.1 s/co ratio [facility] Work Phone: [phone] Comment on above: Negative: < 0.8 Inde terminate: 0.8 - 0.9 Positive: > 0.9 The CDC recommends that a positive HCV antibody result be followed up with a HCV Nucleic Acid Amplification test (751898).Effective March 19, 2022 Hepatitis Panel (4) will be made non-orderable. [employer] offers order code [id number] Acute Hepatitis. [employer] Antibody <0.2 [facility] Work Phone: Platelets bldon 01-26-2022 Platelets (Bld) [#/Vol] 54 10*3/uL 150-450 [facility] Work Phone: Serum DNA double strand anti body assay (units/volume)on 01-26-2022 DNA double strand Ab Qn (S) 2 [IU]/mL [facility] Work Phone: Comment on above: Negative <5 Equivoca l 5 - 9 Positive >9 Serum Karyna-1 antibody assay (u nits/volume)on 01-26-2022 Karyna-1 extractable nuclear Ab Qn (S) <0.2 [facility] Work Phone: Serum Scl-70 extractable nuc lear antibody assay (units/volume)on 01-26-2022 SCL-70 extractable nuclear Ab Qn (S) <0.2 [facility] Work Phone: Serum Cole extractable nucl ear antibody detectionon 01-26-2022 Cole extractable nuclear Ab Ql (S) <0.2 [facility] Work Phone: Serum classic neutrophil cyt oplasmic antibody assay (units/volume)on 01-26-2022 Neutrophil cytoplasmic Ab.classic Qn (S) 1:20 titer Neg:<1:20 [facility] Work Phone: Serum mitochondria antibody detectionon 01-26-2022 Mitochondria Ab Ql (S) <20.0 Units [facility] Work Phone: Comment on above: Negative 0.0 - 20.0 Equivocal 20.1 - 24.9 Positive >24.9Mitochondrial (M2) Antibodies are found in 90-96% ofpatients with primary biliary cirrhosis.Performed at: [address] [id number] Director: Addison Hernandez PhD, Phone: [phone] Serum or plasma C reactive p rotein measurement (mass/volume)on 01-26-2022 CRP [Mass/Vol] 5.48 mg/L 0.0-3.0 [facility] Work Phone: Comment on above: C-Reactive Protein ( CRP) provides useful information for thediagnosis, therapy and monitoring of inflammatory processesand associated diseases. For the evaluation of Relative Riskfor Cardiovascular Disease, a High Sensitivity CRP (HSCRP)should be ordered. Serum or plasma actin IgG an tibody assay (units/volume)on 01-26-2022 Actin IgG Qn 10 Units [facility] Work Phone: Comment on above: Negative 0 - 19 Weak positive 20 - 30 Moderate to strong positive >30 Actin Antibodies are found in 52-85% of patients with autoimmune hepatitis or chronic active hepatitis and in 22% of patients with primary biliary cirrhosis. Serum or plasma albumin peewee urement (mass/volume)on 01-26-2022 Albumin [Mass/Vol] 3.5 g/dL 3.2-5.0 [facility] Work Phone: Serum or plasma albumin/glob ulin mass ratioon 01-26-2022 Albumin/Globulin [Mass ratio] 0.8 {ratio} 0.9-2.4 [facility] Work Phone: Serum or plasma sgoxc-4-waof protein tumor marker measurement (units/volume)on 01-26-2022 AFP.tumor marker Qn 2.7 ng/mL [facility] Work Phone: Comment on above: [employer] El ectrochemiluminescence Immunoassay(ECLIA) Please note reference intervalchangeValues obtained with different assay methods or kits cannotbe used interchangeably. Results cannot be interpreted asabsolute evidence of the presence or absence of malignantdisease.This test is not interpretable in females. Serum or plasma angiotensin converting enzyme measurement (enzymatic activity/volume)on 01-26-2022 Angiotensin converting enzyme [Catalytic activity/Vol] 76 U/L [facility] Work Phone: Serum or plasma calcium peewee urement (mass/volume)on 01-26-2022 Calcium [Mass/Vol] 9.9 mg/dL 8.5-10.1 [facility] Work Phone: Serum or plasma creatinine m easurement (mass/volume)on 01-26-2022 Creatinine [Mass/Vol] 0.60 mg/dL 0.55-1.02 [facility] Work Phone: Comment on above: The validity of the calculated GFR & GFRAA in patients over 70 years has not been determined. Clinical correlation is essential. Serum or plasma ferritin darnell surement (mass/volume)on 01-26-2022 Ferritin [Mass/Vol] 197 ng/mL 8-252 [facility] Work Phone: [phone] Serum or plasma hepatitis B virus surface antigen detection by immunoassayon 01-26-2022 HBV surface Ag IA Ql Negative [facility]: [phone] Serum or plasma urea nitroge n measurement (mass/volume)on 01-26-2022 Urea nitrogen [Mass/Vol] 11 mg/dL 7-18 [facility] Work Phone: Serum perinuclear neutrophil cytoplasmic antibody titer by immunofluorescenceon 01-26-2022 Neutrophil cytoplasmic Ab.perinuclear IF (S) [Titer] <1:20 titer Neg:<1:20 [facility] Work Phone: Comment on above: The presence of posi tive fluorescence exhibiting P-ANCA orC- ANCA patterns alone is not specific for the diagnosis ofWegener's Granulomatosis (WG) or microscopic polyangiitis.Decisions about treatment should not be based solely onANCA IFA results. The [employer] ANCA Group Consensusrecommends follow up testing of positive sera with both PA-3 and MPO-ANCA enzyme immunoassays. As many as 5% serumsamples are positive only by EIA. Ref. AM J Clin Ebbeja8613;111:507-513. Thin prep Papanicolaou smear with manual screeningon 01-26-2022 Thin prep Papanicolaou smear with manual screening 40 U/L 15-37 [facility] Work Phone: [phone] Thin prep Papanicolaou smear with manual screening 5 5-15 [facility] Work Phone: Thin prep Papanicolaou smear with manual screening 143 U/L 84-246 [facility] Work Phone: Thin prep Papanicolaou smear with manual screening 113 ug/dL [facility] Work Phone: Comment on above: Detection Limit = 5 Whole blood hemoglobin A1c/t otal hemoglobin ratio (mass fraction)on 01-26-2022 HbA1c (Bld) [Mass fraction] 5.0 % 3.8-5.6 [facility] Work Phone: Comment on above: Normal < 5.7 % Predi abetic 5.7 - 6.4 % Diabetic >or= 6.5 % Please note range changes. AMMONIAon 12-08-2021 AMMONIA Normal 11.0-32.0 [facility] Comment on above: Result Comment: MARGO Lyles DRAW DATE 12/08/21 0854: AMMONIA previously reported as: 82.7 H UMOL/L RESULTS MAY BE FALSELY DEPRESSED AFTER THE ADMINISTRATION OF SULFAPYRIDINE. RESULTS MAY BE FALSELY ELEVATED AFTER THE ADMINISTRATION OF SULFASALAZINE. Performed By: #### L 500.56744 #### [facility] [address] [place] [address] Ammonia (P) [Moles/Vol] 82.7 umol/L High 11.0-32.0 [facility] Comment on above: Result Comment: RESU LTS MAY BE FALSELY DEPRESSED AFTER THE ADMINISTRATION OF SULFAPYRIDINE. RESULTS MAY BE FALSELY ELEVATED AFTER THE ADMINISTRATION OF SULFASALAZINE. Performed By: #### L 500.13494, L500.08852, L500.26135 #### [facility] [place] [address] CBCon 12-08-2021 HCT Normal 35.0-47.0 [facility] Comment on above: Result Comment: 11/19 12/09 0855: HCT previously reported as: 26.4 L % Performed By: #### L 500.93255, L500.52065, L500.44629 #### [facility] [address] [place] [address] HGB Normal 11.5-15.5 [facility] Comment on above: Result Comment: 11/19 12/09 0854: HGB previously reported as: 8.6 L G/DL Performed By: #### L 500.20670, L500.65536, L500.68001 #### [facility] [address] [place], [place] [address] MCHC Normal 32.0-36.0 [facility] Comment on above: Result Comment: 11/19 12/09 0855: MCHC previously reported as: 32.6 GM/DL Performed By: #### L 500.50211, L500.85881, L500.94600 #### [facility] [address] [place] [address] MCV Normal 80.0-99.0 [facility] Comment on above: Result Comment: 11/19 12/09 0855: MCV previously reported as: 100.8 H fl Performed By: #### L 500.55933, L500.75644, L500.57301 #### [facility] [address] [place], [place] [address] MPV Normal 9.4-12.4 [facility] Comment on above: Result Comment: 11/19 12/09 0855: MPV previously reported as: 11.9 Performed By: #### L 500.97596, L500.65332, L500.33906 #### [facility] [address] [place] [address] NRBC Normal Less than 1 [facility] Comment on above: Result Comment: 11/19 12/09 0855: NRBC previously reported as: 0.0 % Performed By: #### L 500.47307, L500.97028, L500.23520 #### [facility] [address] [place] [address] PLT Normal 150-450 [facility] Comment on above: Result Comment: Conf irmed by slide estimate. 12/08/21 0855: PLT previously reported as: 57 L K/CU MM Confirmed by slide estimate. Performed By: #### L 500.32815, L500.45952, L500.48776 #### [facility] [address] [place] [address] 86317 RBC Normal 3.90-5.30 [facility] Comment on above: Result Comment: 11/19 12/09 0854: RBC previously reported as: 2.62 L M/CU MM Performed By: #### L 500.26810, L500.07324, L500.97910 #### [facility] [address] [place] [address] RDW Normal 11-14.5 [facility] Comment on above: Result Comment: 11/19 12/09 0855: RDW previously reported as: 14.7 H Performed By: #### L 500.22809, L500.71466, L500.85487 #### [facility] [address] [place], [place] [address] WBC Normal 4.5-11.0 [facility] Comment on above: Result Comment: WRON G DRAW DATE 12/08/21 0854: WBC previously reported as: 2.5 L K/CUMM Performed By: #### L 500.66098, L500.51621, L500.94563 #### [facility] [address] [place] [address] Erythrocyte distribution width (RBC) [Ratio] 14.7 % High 11-14.5 [facility] Comment on above: Performed By: #### L 200.93020 #### [facility] [address] [place] [address] Performed By: #### L 500.64953 #### [facility] [address] [place], [place] [address] Hematocrit (Bld) [Volume fraction] 26.4 % Low 35.0-47.0 [facility] Comment on above: Performed By: #### L 200.92576 #### [facility] [address] [place] [address]# [phone] Performed By: #### L 500.40323 #### [facility] [address] [place] [address]# [phone] Hemoglobin (Bld) [Mass/Vol] 8.6 g/dL Low 11.5-15.5 [facility] Comment on above: Performed By: #### L 200.45062 #### [facility] [address] [place] [address]# [phone] Performed By: #### L 500.59569 #### [facility] [address] [place] [address]# [phone] MCHC (RBC) [Mass/Vol] 32.6 g/dL Normal 32.0-36.0 [facility] Comment on above: Performed By: #### L 200.91529 #### [facility] [address] [place] [address]# [phone] Performed By: #### L 500.27885 #### [facility] [address] [place] [address] MCV (RBC) [Entitic vol] 100.8 fL High 80.0-99.0 [facility] Comment on above: Performed By: #### L 200.05955 #### [facility] [address] [place] [address] Performed By: #### L 500.92097 #### [facility] [address] [place] [address] Nucleated RBC/100 WBC (Bld) [Ratio] 0.0 % Normal Less than 1 [facility] Comment on above: Performed By: #### L 200.82461 #### [facility] [address] [place] [address] Performed By: #### L 500.91113 #### [facility] [address] [place] [address] Platelet mean volume (Bld) [Entitic vol] 11.9 fL Normal 9.4-12.4 [facility] Comment on above: Performed By: #### L 200.21233 #### [facility] [address] [place] [address] Performed By: #### L 500.09402 #### [facility] [address] [place] [address] 24704 PLT 57 K/CU MM Low 150-450 [facility] Comment on above: Performed By: #### L 200.21895 #### [facility] [address] [place] [address] Performed By: #### L 500.67026 #### [facility] [address] [place] [address] 56194 RBC 2.62 M/CU MM Low 3.90-5.30 [facility] Comment on above: Performed By: #### L 200.62941 #### [facility] [address] [place] [address] Performed By: #### L 500.22966 #### [facility] [address] [place] [address]609 WBC 2.5 K/CUMM Low 4.5-11.0 [facility] Comment on above: Performed By: #### L 200.01416 #### [facility] [address] [place] [address] Performed By: #### L 500.47186 #### [facility] [address] [place] [address]45[address] CMPon 12-08-2021 A/G RATIO Normal 0.8-2.0 [facility] Comment on above: Result Comment: 11/19 12/09 0853: A/G RATIO previously reported as: 0.9 Performed By: #### L 500.57727 #### [facility] [place] [address] AGAP Normal 5-16 [facility] Comment on above: Result Comment: 11/19 12/09 0851: AGAP previously reported as: 9 MMOL/L Performed By: #### L 500.02206 #### [facility] [address] [place], [place] [address] ALBUMIN Normal 3.2-5.0 [facility] Comment on above: Result Comment: 11/19 12/09 0852: ALBUMIN previously reported as: 2.5 L GM/DL Performed By: #### L 500.87831 #### [facility] [address] [place] [address]167 ALK PHOS Normal 45-117 [facility] Comment on above: Result Comment: 11/19 12/09 0853: ALK PHOS previously reported as: 59 U/L Performed By: #### L 500.13327 #### [facility] [address] [place], [place] [address] BILI TOTAL Normal 0.2-1.0 [facility] Comment on above: Result Comment: 11/19 12/09 0853: BILI TOTAL previously reported as: 1.10 H MG/DL Performed By: #### L 500.91037 #### [facility] [address] [place] [address]58 BUN Normal 7-26 [facility] Comment on above: Result Comment: 11/19 12/09 0852: BUN previously reported as: 7 MG/DL Performed By: #### L 500.87031 #### [facility] [address] [place], [place] [address] BUN/CREA Normal 15-24 [facility] Comment on above: Result Comment: 11/19 12/09 0852: BUN/CREA previously reported as: 16 Performed By: #### L 500.63468 #### [facility] [address] [place] [place] [id number] CALCIUM TOTAL Normal 8.5-10.5 [facility] Comment on above: Result Comment: NOTE NEW NORMAL RANGE DUE TO REAGENT CHANGE 12/08/21 0853: CALCIUM TOTAL previously reported as: 9.3 MG/DL NOTE NEW NORMAL RANGE DUE TO REAGENT CHANGE Performed By: #### L 500.47627 #### [facility] [address] [place] [address] CL Normal 98-107 [facility] Comment on above: Result Comment: 11/19 12/09 0851: CL previously reported as: 113 H MMOL/L Performed By: #### L 500.86868 #### [facility] [address] [place] [address] CO2 Normal 21-32 [facility] Comment on above: Result Comment: 11/19 12/09 0851: CO2 previously reported as: 22.0 MMOL/L Performed By: #### L 500.87197 #### [facility] [address] [place] [address] CREAT Normal 0.510-0.950 [facility] Comment on above: Result Comment: 11/19 12/09 0852: CREAT previously reported as: 0.45 L MG/DL Patients receiving either N-Acetylcysteine (NAC) or Metamizole prior to venipuncture, may have falsely depressed results. Performed By: #### L 500.32036 #### [facility] [address] [place], [place] [address] GLOBULIN Normal 2.2-4.2 [facility] Comment on above: Result Comment: 11/19 12/09 0853: GLOBULIN previously reported as: 2.9 GM/DL Performed By: #### L 500.87288 #### [facility] [place] [id number] GLU Normal 70-100 [facility] Comment on above: Result Comment: 11/19 12/09 0851: GLU previously reported as: 100 MG/DL 70-100- Normal Fasting; 100-125 Impaired Fasting; greater than 126 on more than one result- Diabetes. ADA guidelines. Results may be falsely elevated after the administration of Sulfapyridine. Results may be falsely depressed after the administration of Sulfasalazine. Performed By: #### L 500.04851 #### [facility] [address] [place] [address] K Normal 3.5-5.1 [facility] Comment on above: Result Comment: 11/19 12/09 0851: K previously reported as: 3.8 MMOL/L Performed By: #### L 500.26588 #### [facility] [facility] [address] [place] [address] SGOT (AST) Normal 8-34 [facility] Comment on above: Result Comment: 11/19 12/09 0853: SGOT (AST) previously reported as: 40 H U/L RESULTS MAY BE FALSELY DEPRESSED AFTER THE ADMINISTRATION OF SULFASALAZINE AND/OR SULFAPYRIDINE. Performed By: #### L 500.08350 #### [facility] [address] [place] [address] SGPT (ALT) Normal 13-61 [facility] Comment on above: Result Comment: 11/19 12/09 0853: SGPT (ALT) previously reported as: 23 U/L RESULTS MAY BE FALSELY DEPRESSED AFTER THE ADMINISTRATION OF SULFASALAZINE AND/OR SULFAPYRIDINE. Performed By: #### L 500.59850 #### [facility] [address] [place], [place] [address] TP Normal 6.0-8.5 [facility] Comment on above: Result Comment: 11/19 12/09 0852: TP previously reported as: 5.4 L GM/DL Performed By: #### L 500.82513 #### [facility] [address] [place] [address] 18482 CMP Normal 136-145 [facility] Comment on above: Result Comment: MARGO G DRAW DATE 12/08/21 0851: NA previously reported as: 144 MMOL/L Performed By: #### L 500.77134 #### [facility] [address] [place], [place] [address] Albumin [Mass/Vol] 2.5 g/dL Low 3.2-5.0 [facility] Comment on above: Performed By: #### L 500.27846, L500.18851, L500.82123 #### [facility] [address] [place] [address] 50089 Albumin/Globulin [Mass ratio] 0.9 {ratio} Normal 0.8-2.0 [facility] Comment on above: Performed By: #### L 500.22287, L500.29393, L500.19915 #### [facility] [address] [place], [place] [address] ALK PHOS 59 U/L Normal 45-117 [facility] Comment on above: Performed By: #### L 500.99149, L500.90480, L500.77517 #### [facility] [address] [place], [place] [address] ALT [Catalytic activity/Vol] 23 U/L Normal 13-61 [facility] Comment on above: Result Comment: RESU LTS MAY BE FALSELY DEPRESSED AFTER THE ADMINISTRATION OF SULFASALAZINE AND/OR SULFAPYRIDINE. Performed By: #### L 500.53865, L500.26108, L500.65430 #### [facility] [address] [place] [address] Anion gap [Moles/Vol] 9 mmol/L Normal 5-16 [facility] Comment on above: Performed By: #### L 500.66070, L500.45792, L500.45330 #### [facility] [place] [address] AST [Catalytic activity/Vol] 40 U/L High 8-34 [facility] Comment on above: Result Comment: RESU LTS MAY BE FALSELY DEPRESSED AFTER THE ADMINISTRATION OF SULFASALAZINE AND/OR SULFAPYRIDINE. Performed By: #### L 500.42225, L500.29043, L500.27584 #### [facility] [place] [address] BILI TOTAL 1.10 MG/DL High 0.2-1.0 [facility] Comment on above: Performed By: #### L 500.08110, L500.78059, L500.22911 #### [facility] [address] [place] [address] Calcium [Mass/Vol] 9.3 mg/dL Normal 8.5-10.5 [facility] Comment on above: Result Comment: NOTE NEW NORMAL RANGE DUE TO REAGENT CHANGE Performed By: #### L 500.37063, L500.82408, L500.38019 #### [facility] [place] [address] Chloride [Moles/Vol] 113 mmol/L High 98-107 [facility] Comment on above: Performed By: #### L 500.25483, L500.54491, L500.28139 #### [facility] [place] [id number] CO2 [Moles/Vol] 22.0 mmol/L Normal 21-32 [facility] Comment on above: Performed By: #### L 500.24973, L500.38997, L500.06373 #### [facility] [address] [place] [address] Creatinine [Mass/Vol] 0.45 mg/dL Low 0.510-0.950 [facility] Comment on above: Result Comment: Aretha ents receiving either N-Acetylcysteine (NAC) or Metamizole prior to venipuncture, may have falsely depressed results. Performed By: #### L 500.84429, L500.94809, L500.08675 #### [facility] [address] [place] [address] 38828 Globulin (S) [Mass/Vol] 2.9 g/dL Normal 2.2-4.2 [facility] Comment on above: Performed By: #### L 500.45432, L500.63398, L500.34615 #### [facility] [address] [place] [address]18 Glucose [Mass/Vol] 100 mg/dL Normal 70-100 [facility] Comment on above: Result Comment: 70-1 00- Normal Fasting; 100-125 Impaired Fasting; greater than 126 on more than one result- Diabetes. ADA guidelines. Results may be falsely elevated after the administration of Sulfapyridine. Results may be falsely depressed after the administration of Sulfasalazine. Performed By: #### L 500.97935, L500.15657, L500.68770 #### [facility] [address] [place] [address] Potassium [Moles/Vol] 3.8 mmol/L Normal 3.5-5.1 [facility] Comment on above: Performed By: #### L 500.90267, L500.26232, L500.39607 #### [facility] [place] [address] Protein [Mass/Vol] 5.4 g/dL Low 6.0-8.5 [facility] Comment on above: Performed By: #### L 500.38994, L500.26732, L500.16441 #### [facility] [address] [place], [place] [address] Sodium [Moles/Vol] 144 mmol/L Normal 136-145 [facility] Comment on above: Performed By: #### L 500.08980, L500.01373, L500.68948 #### [facility] [place] [address] Urea nitrogen [Mass/Vol] 7 mg/dL Normal 7-26 [facility] Comment on above: Performed By: #### L 500.41462, L500.40502, L500.20897 #### [facility] [address] [place] [address]12 Urea nitrogen/Creatinine [Mass ratio] 16 mg/mg Normal 15-24 [facility] Comment on above: Performed By: #### L 500.84471, L500.67168, L500.70700 #### [facility] [address] [place] [address] GFR ESTon 12-08-[address] [facility] Comment on above: Result Comment: 11/19 12/09 0852: IF AMER previously reported as: Greater than 60 Performed By: #### L 500.40427 #### [facility] [address] [place] [address] IF non-AFR AMER Normal [facility] Comment on above: Result Comment: 11/19 12/09 0852: IF non-AFR AMER previously reported as: Greater than 60 Performed By: #### L 500.71943 #### [facility] [address] [place] [address]10[address] IF AMER Greater than 60 Normal [facility] Comment on above: Performed By: #### L 500.14770, L500.44154, L500.14596 #### [facility] [address] [place], [place] [address] IF non-AFR AMER Greater than 60 Normal [facility] Comment on above: Performed By: #### L 500.17076, L500.89996, L500.65943 #### [facility] [address] [place] [address] AMMONIAon 12-01-2021 Ammonia (P) [Moles/Vol] 72.0 umol/L High 11.0-32.0 [facility] Comment on above: Result Comment: RESU LTS MAY BE FALSELY DEPRESSED AFTER THE ADMINISTRATION OF SULFAPYRIDINE. RESULTS MAY BE FALSELY ELEVATED AFTER THE ADMINISTRATION OF SULFASALAZINE. Performed By: #### L 500.66569, L500.58694, L500.59516 #### [facility] [address] [place] [address] CBCon 12-01-2021 Erythrocyte distribution width (RBC) [Ratio] 14.8 % High 11-14.5 [facility] Comment on above: Performed By: #### L 500.65747, L500.81051, L500.17603 #### [facility] [address] [place] [address] Hematocrit (Bld) [Volume fraction] 29.3 % Low 35.0-47.0 [facility] Comment on above: Performed By: #### L 500.30787, L500.03627, L500.99514 #### [facility] [address] [place] [address] Hemoglobin (Bld) [Mass/Vol] 9.2 g/dL Low 11.5-15.5 [facility] Comment on above: Performed By: #### L 500.43513, L500.07294, L500.49919 #### [facility] [address] [place] [address] MCHC (RBC) [Mass/Vol] 31.4 g/dL Low 32.0-36.0 [facility] Comment on above: Performed By: #### L 500.45777, L500.18623, L500.76978 #### [facility] [address] [place] [address] MCV (RBC) [Entitic vol] 103.2 fL High 80.0-99.0 [facility] Comment on above: Performed By: #### L 500.34462, L500.24054, L500.75458 #### [facility] [address] [place] [address] Nucleated RBC/100 WBC (Bld) [Ratio] 0.0 % Normal Less than 1 [facility] Comment on above: Performed By: #### L 500.93943, L500.22116, L500.13693 #### [facility] [address] [place] [address] Platelet mean volume (Bld) [Entitic vol] 11.9 fL Normal 9.4-12.4 [facility] Comment on above: Performed By: #### L 500.35789, L500.16457, L500.62451 #### [facility] [address] [place] [address] PLT 62 K/CU MM Low 150-450 [facility] Comment on above: Result Comment: Conf irmed by slide estimate. Performed By: #### L 500.20974, L500.54693, L500.86374 #### [facility] [address] [place] [address] RBC 2.84 M/CU MM Low 3.90-5.30 [facility] Comment on above: Performed By: #### L 500.60356, L500.97668, L500.59189 #### [facility] [address] [place] [address] WBC 2.7 K/CUMM Low 4.5-11.0 [facility] Comment on above: Performed By: #### L 500.71570, L500.98100, L500.62176 #### [facility] [place] [address] AMMONIAon 11-30-2021 Ammonia (P) [Moles/Vol] 66.0 umol/L High 11.0-32.0 [facility] Comment on above: Result Comment: RESU LTS MAY BE FALSELY DEPRESSED AFTER THE ADMINISTRATION OF SULFAPYRIDINE. RESULTS MAY BE FALSELY ELEVATED AFTER THE ADMINISTRATION OF SULFASALAZINE. Performed By: #### L 500.43171 #### [facility] [address] [place] [address] BMPon 11-30-2021 Anion gap [Moles/Vol] 8 mmol/L Normal 5-16 [facility] Comment on above: Performed By: #### L 500.26573, L500.00783 #### [facility] [address] [place] [address] Calcium [Mass/Vol] 8.9 mg/dL Normal 8.5-10.5 [facility] Comment on above: Result Comment: NOTE NEW NORMAL RANGE DUE TO REAGENT CHANGE Performed By: #### L 500.51139, L500.89781 #### [facility] [address] [place] [address] Chloride [Moles/Vol] 112 mmol/L High 98-107 [facility] Comment on above: Performed By: #### L 500.61608, L500.52332 #### [facility] [address] [place] [address] CO2 [Moles/Vol] 20.0 mmol/L Low 21-32 [facility] Comment on above: Performed By: #### L 500.30078, L500.28459 #### [facility] [address] [place] [address]284 Creatinine [Mass/Vol] 0.49 mg/dL Low 0.510-0.950 [facility] Comment on above: Result Comment: Aretha ents receiving either N-Acetylcysteine (NAC) or Metamizole prior to venipuncture, may have falsely depressed results. Performed By: #### L 500.59413, L500.15797 #### [facility] [address] [place] [address] Glucose [Mass/Vol] 109 mg/dL High 70-100 [facility] Comment on above: Result Comment: 70-1 00- Normal Fasting; 100-125 Impaired Fasting; greater than 126 on more than one result- Diabetes. ADA guidelines. Results may be falsely elevated after the administration of Sulfapyridine. Results may be falsely depressed after the administration of Sulfasalazine. Performed By: #### L 500.33399, L500.66543 #### [facility] [address] [place] [address] Potassium [Moles/Vol] 3.7 mmol/L Normal 3.5-5.1 [facility] Comment on above: Result Comment: Slig ht Hemolysis, Result may be affected. Performed By: #### L 500.12549, L500.12687 #### [facility] [address] [place] [address] Sodium [Moles/Vol] 141 mmol/L Normal 136-145 [facility] Comment on above: Performed By: #### L 500.64829, L500.09385 #### [facility] [address] [place] [address] Urea nitrogen [Mass/Vol] 9 mg/dL Normal 7-26 [facility] Comment on above: Performed By: #### L 500.58528, L500.11347 #### [facility] [address] [place], [place] [address] Urea nitrogen/Creatinine [Mass ratio] 18 mg/mg Normal 15-24 [facility] Comment on above: Performed By: #### L 500.96336, L500.04743 #### [facility] [address] [place] [address] GFR ESTon 11-30-2021 IF AMER Greater than 60 Normal [facility] Comment on above: Performed By: #### L 500.73643, L500.00953 #### [facility] [address] [place] [address] IF non-AFR AMER Greater than 60 Normal [facility] Comment on above: Performed By: #### L 500.27597, L500.94358 #### [facility] [address] [place] [address] 90681 AMMONIAon 11-28-2021 Ammonia (P) [Moles/Vol] 67.1 umol/L High 11.0-32.0 [facility] Comment on above: Result Comment: RESU LTS MAY BE FALSELY DEPRESSED AFTER THE ADMINISTRATION OF SULFAPYRIDINE. RESULTS MAY BE FALSELY ELEVATED AFTER THE ADMINISTRATION OF SULFASALAZINE. Performed By: #### L 500.17095 #### [facility] [address] [place] [address] 07323 CBCon 11-28-2021 Erythrocyte distribution width (RBC) [Ratio] 14.3 % Normal 11-14.5 [facility] Comment on above: Performed By: #### L 500.50686, L500.03860, L500.86934 #### [facility] [address] [place] [address] 20565 Hematocrit (Bld) [Volume fraction] 28.8 % Low 35.0-47.0 [facility] Comment on above: Performed By: #### L 500.19035, L500.64684, L500.31985 #### [facility] [address] [place] [address] 79150 Hemoglobin (Bld) [Mass/Vol] 9.3 g/dL Low 11.5-15.5 [facility] Comment on above: Performed By: #### L 500.73469, L500.85585, L500.91296 #### [facility] [address] [place] [address] MCHC (RBC) [Mass/Vol] 32.3 g/dL Normal 32.0-36.0 [facility] Comment on above: Performed By: #### L 500.11852, L500.18764, L500.03535 #### [facility] [address] [place] [address] MCV (RBC) [Entitic vol] 101.4 fL High 80.0-99.0 [facility] Comment on above: Performed By: #### L 500.41382, L500.97566, L500.16610 #### [facility] [address] [place] [address] Nucleated RBC/100 WBC (Bld) [Ratio] 0.0 % Normal Less than 1 [facility] Comment on above: Performed By: #### L 500.47643, L500.09708, L500.22832 #### [facility] [address] [place] [address] Platelet mean volume (Bld) [Entitic vol] 12.7 fL High 9.4-12.4 [facility] Comment on above: Performed By: #### L 500.74454, L500.02133, L500.51718 #### [facility] [address] [place] [address] PLT 63 K/CU MM Low 150-450 [facility] Comment on above: Result Comment: Conf irmed by slide estimate. Performed By: #### L 500.28380, L500.81658, L500.36045 #### [facility] [address] [place] [address] RBC 2.84 M/CU MM Low 3.90-5.30 [facility] Comment on above: Performed By: #### L 500.64803, L500.59168, L500.69796 #### [facility] [address] [place] [address] WBC 2.9 K/CUMM Low 4.5-11.0 [facility] Comment on above: Performed By: #### L 500.65983, L500.77464, L500.79306 #### [facility] [address] [place] [address] CBCon 11-23-2021 Erythrocyte distribution width (RBC) [Ratio] 14.0 % Normal 11-14.5 [facility] Comment on above: Performed By: #### L 500.45366, L500.49536, L500.05633 #### [facility] [address] [place] [address] Hematocrit (Bld) [Volume fraction] 27.2 % Low 35.0-47.0 [facility] Comment on above: Performed By: #### L 500.29947, L500.40037, L500.87354 #### [facility] [address] [place] [address] Hemoglobin (Bld) [Mass/Vol] 8.6 g/dL Low 11.5-15.5 [facility] Comment on above: Performed By: #### L 500.02040, L500.54258, L500.05050 #### [facility] [address] [place] [address] MCHC (RBC) [Mass/Vol] 31.6 g/dL Low 32.0-36.0 [facility] Comment on above: Performed By: #### L 500.74415, L500.07969, L500.58344 #### [facility] [address] [place] [address] MCV (RBC) [Entitic vol] 101.9 fL High 80.0-99.0 [facility] Comment on above: Performed By: #### L 500.75888, L500.98637, L500.92843 #### [facility] [address] [place] [address] Nucleated RBC/100 WBC (Bld) [Ratio] 0.0 % Normal Less than 1 [facility] Comment on above: Performed By: #### L 500.49429, L500.40130, L500.55986 #### [facility] [address] [place] [address] Platelet mean volume (Bld) [Entitic vol] 12.5 fL High 9.4-12.4 [facility] Comment on above: Performed By: #### L 500.68757, L500.28919, L500.92814 #### [facility] [address] [place] [address] PLT 54 K/CU MM Low 150-450 [facility] Comment on above: Result Comment: Conf irmed by slide estimate. Performed By: #### L 500.18747, L500.63556, L500.49097 #### [facility] [address] [place] [address] RBC 2.67 M/CU MM Low 3.90-5.30 [facility] Comment on above: Performed By: #### L 500.62853, L500.29427, L500.39827 #### [facility] [address] [place] [address] WBC 3.4 K/CUMM Low 4.5-11.0 [facility] Comment on above: Performed By: #### L 500.33948, L500.47582, L500.42681 #### [facility] [address] [place] [address] AMMONIAon 11-21-2021 Ammonia (P) [Moles/Vol] 34.9 umol/L High 11.0-32.0 [facility] Comment on above: Result Comment: Slig ht Hemolysis, Result may be affected. RESULTS MAY BE FALSELY DEPRESSED AFTER THE ADMINISTRATION OF SULFAPYRIDINE. RESULTS MAY BE FALSELY ELEVATED AFTER THE ADMINISTRATION OF SULFASALAZINE. Performed By: #### L 500.99411 #### [facility] [place] [address] BMPon 11-21-2021 Anion gap [Moles/Vol] 9 mmol/L Normal 5-16 [facility] Comment on above: Performed By: #### L 500.31663, L500.78356, L500.69806 #### [facility] [place] [address] Calcium [Mass/Vol] 9.0 mg/dL Normal 8.5-10.5 [facility] Comment on above: Result Comment: NOTE NEW NORMAL RANGE DUE TO REAGENT CHANGE Performed By: #### L 500.61367, L500.40958, L500.24908 #### [facility] [place] [address] Chloride [Moles/Vol] 113 mmol/L High 98-107 [facility] Comment on above: Performed By: #### L 500.61278, L500.12740, L500.63862 #### [facility] [place] [address] CO2 [Moles/Vol] 20.0 mmol/L Low 21-32 [facility] Comment on above: Performed By: #### L 500.01119, L500.76393, L500.45092 #### [facility] [place] [address] Creatinine [Mass/Vol] 0.43 mg/dL Low 0.510-0.950 [facility] Comment on above: Result Comment: Aretha ents receiving either N-Acetylcysteine (NAC) or Metamizole prior to venipuncture, may have falsely depressed results. Performed By: #### L 500.37537, L500.06279, L500.75489 #### [facility] [place] [address] Glucose [Mass/Vol] 107 mg/dL High 70-100 [facility] Comment on above: Result Comment: 70-1 00- Normal Fasting; 100-125 Impaired Fasting; greater than 126 on more than one result- Diabetes. ADA guidelines. Results may be falsely elevated after the administration of Sulfapyridine. Results may be falsely depressed after the administration of Sulfasalazine. Performed By: #### L 500.83227, L500.26145, L500.63766 #### [facility] [address] [place] [address] Potassium [Moles/Vol] 3.8 mmol/L Normal 3.5-5.1 [facility] Comment on above: Result Comment: Slig ht Hemolysis, Result may be affected. Performed By: #### L 500.59347, L500.34364, L500.10054 #### [facility] [address] [place] [address]289 Sodium [Moles/Vol] 142 mmol/L Normal 136-145 [facility] Comment on above: Performed By: #### L 500.22362, L500.67416, L500.71253 #### [facility] [address] [place] [address] 08362 Urea nitrogen [Mass/Vol] 10 mg/dL Normal 7-26 [facility] Comment on above: Performed By: #### L 500.32701, L500.88089, L500.21888 #### [facility] [address] [place] [address] 10465 Urea nitrogen/Creatinine [Mass ratio] 23 mg/mg Normal 15-24 [facility] Comment on above: Performed By: #### L 500.59004, L500.26729, L500.37735 #### [facility] [address] [place] [address] GFR ESTon 11-21-2021 IF AMER Greater than 60 Normal [facility] Comment on above: Performed By: #### L 500.71028, L500.70338, L500.50053 #### [facility] [address] [place] [address]77[address] IF non-AFR AMER Greater than 60 Normal [facility] Comment on above: Performed By: #### L 500.26517, L500.01680, L500.31942 #### [facility] [address] [place] [address] LIVERon 11-21-2021 Albumin [Mass/Vol] 2.8 g/dL Low 3.2-5.0 [facility] Comment on above: Performed By: #### L 500.38502, L500.09023, L500.60689 #### [facility] [address] [place] [address] 6[address]20 Albumin/Globulin [Mass ratio] 0.9 {ratio} Normal 0.8-2.0 [facility] Comment on above: Performed By: #### L 500.13666, L500.13341, L500.68457 #### [facility] [address] [place] [address] 06364 ALK PHOS 64 U/L Normal 45-117 [facility] Comment on above: Performed By: #### L 500.36284, L500.38792, L500.58828 #### [facility] [address] [place] [address] 57249 ALT [Catalytic activity/Vol] 35 U/L Normal 13-61 [facility] Comment on above: Result Comment: RESU LTS MAY BE FALSELY DEPRESSED AFTER THE ADMINISTRATION OF SULFASALAZINE AND/OR SULFAPYRIDINE. Performed By: #### L 500.92274, L500.83392, L500.24373 #### [facility] [address] [place] [address] AST [Catalytic activity/Vol] 72 U/L High 8-34 [facility] Comment on above: Result Comment: RESU LTS MAY BE FALSELY DEPRESSED AFTER THE ADMINISTRATION OF SULFASALAZINE AND/OR SULFAPYRIDINE. Performed By: #### L 500.13104, L500.73532, L500.07761 #### [facility] [address] [place] [address] BILI DIRECT 0.6 MG/DL High 0.00-0.36 [facility] Comment on above: Result Comment: NOTE NEW NORMAL RANGE DUE TO REAGENT CHANGE Performed By: #### L 500.75686, L500.17610, L500.38989 #### [facility] [address] [place] [address] BILI TOTAL 1.30 MG/DL High 0.2-1.0 [facility] Comment on above: Performed By: #### L 500.59259, L500.74957, L500.48966 #### [facility] [address] [place] [address] Globulin (S) [Mass/Vol] 3.1 g/dL Normal 2.2-4.2 [facility] Comment on above: Performed By: #### L 500.14754, L500.11298, L500.70665 #### [facility] [address] [place] [address] Protein [Mass/Vol] 5.9 g/dL Low 6.0-8.5 [facility] Comment on above: Performed By: #### L [id number], L500.80889, L500.11635 #### [facility] [address] [place] [address] Lead, Bloodon 10-05-2021 Lead, Blood 1.7 ug/dL Normal 0.0-4.9 [facility] Comment on above: Performed By: #### C ROBE, SYPHTX #### [facility] Routine Lab [address] [phone] #### LEAD2 #### [facility] Chemistry [address] [place], [place] [address] Ceruloplasminon 10-04-2021 Ceruloplasmin 14 mg/dL Low 16-45 [facility] Comment on above: Performed By: #### C ROBE, SYPHTX #### [facility] Routine Lab [address] [phone] #### LEAD2 #### [facility] Chemistry [address] [address] Syphilis Ttl w/Reflxon 10-04 Syphilis Interp SYPH1 Normal [facility] Comment on above: Performed By: #### C ROBE, SYPHTX #### [facility] Routine Lab [address] [phone] #### LEAD2 #### [facility] Chemistry [address] [address] Syphilis Screen Rslt NR Normal Non Reactive [facility] Reference Lab Comment on above: Performed By: #### C ROBE, SYPHTX #### [facility] Routine Lab [address] [phone] #### LEAD2 #### [facility] Chemistry [address] [address] Hemoglobin A1con 10-02-2021 Glucose [Mass/Vol] 91 mg/dL Normal [facility] Reference Lab Comment on above: Performed By: #### H BA1C #### [facility] Routine Lab [address] [address] HbA1c (Bld) [Mass fraction] 4.8 % Normal 4.3-5.6 [facility] Comment on above: Performed By: #### H BA1C #### [facility] Routine Lab [address] [place] [id number] Telephone Encounteron 2020 Lpn Care Manager Authentication Interface Message Text 51 y o f with COVID on the 25 of August - 2 weeks - failure to thrive, pain in her LE - Vomiting She had recent ED visit on Saturday gallstones/ cholecystitis - at that time she received Keflex for UTI Progressively more weak, her carried her to the ED today Thin build Treated for Sepsis and hypokalemia K 2.6 - fatigued Hemodynamically stable WBC 16 K PLT 80 Glu cose normal 141 K 2,6 Bicarb 14 AST 99 Alk senia 121 ALT 61 CPK 22 Ammonia level 71 LA 6.5 - repeat 6,9 3 L of fluid, NS Blood cxs sent -zocyn Blood gas 7,42 PCO2 18 PO2 107Bicarb 12 Creatinine normal 0,8 -135 lbs UA - brandon in - no UA sent Not on metformin Some ETOH use CT chest abdomen pelvis - colitis Dehydrated with electrolytic abnormalities Instructed to give high dose thiamine, switch fluid to LR Repeat Labs Accepted to MICU May be able to retriage to SDU [facility]biology an d Antimicrobial susceptibility Bacteria identified Cx Nom (Bld) No growth in 5 days. [facility] Work Phone: Vital Signs Date Time Vital Sign Value Performing Clinician Facility 04-16-2025 18:43-0400 Body mass index (BMI) [Ratio] 32.55 kg/m2 Yovana Stewart Jr., EDGER HAND.[employer] Work Phone: [facility] 04-16-2025 18:43-0400 Body temperature 97.9 [degF] Yovana Stewart Jr., EDGER HAND.[employer] Work Phone: [facility] 04-16-2025 18:43-0400 Body weight 99.97 kg Yovana Stewart Jr., EDGER HAND.[employer] Work Phone: [facility] 04-16-2025 18:43-0400 Diastolic blood pressure 83 mm[Hg] Yovana Stewart Jr., EDGER HAND.[employer] Work Phone: [facility] 04-16-2025 18:43-0400 Heart rate 78 /min Yovana Stewart Jr., EDGER HAND.[employer] Work Phone: [facility] 04-16-2025 18:43-0400 Respiratory rate 18 /min Yovana Stewart Jr., EDGER HAND.[employer] Work Phone: [facility] 04-16-2025 18:43-0400 SaO2% (BldA) [Mass fraction] 100 % Yovana Stewart Jr., EDGER HAND.[employer] Work Phone: [facility] 04-16-2025 18:43-0400 Systolic blood pressure 137 mm[Hg] Yovana Stewart Jr., EDGER HAND[employer] Work Phone: [facility] 03-30-2025 21:02-0400 Body mass index (BMI) [Ratio] 32.07 kg/m2 Baldev Reyes MD Work Phone: [facility] 03-30-2025 21:02-0400 Body temperature 98.4 [degF] Baldev Reyes MD Work Phone: [facility] 03-30-2025 21:02-0400 Body weight 98.52 kg Baldev Reyes MD Work Phone: [facility] 03-30-2025 21:02-0400 Diastolic blood pressure 85 mm[Hg] Baldev Reyes MD Work Phone: [facility] 03-30-2025 21:02-0400 Heart rate 87 /min Baldev Reyes MD Work Phone: [facility] 03-30-2025 21:02-0400 Respiratory rate 18 /min Baldev Reyes MD Work Phone: [facility] 03-30-2025 21:02-0400 SaO2% (BldA) [Mass fraction] 98 % Baldev Reyes MD Work Phone: [facility] 03-30-2025 21:02-0400 Systolic blood pressure 146 mm[Hg] Baldev Reyes MD Work Phone: [facility] 02-16-2025 08:58-0400 Body height 175.3 cm Aure Noling EDGER HAND.[employer] Work Phone: [facility] 02-16-2025 08:58-0400 Body mass index (BMI) [Ratio] 31.16 kg/m2 Aure Noling EDGER HAND.[employer] Work Phone: [facility] 02-16-2025 08:58-0400 Body temperature 97.81 [degF] Aure Noling EDGER HAND.[employer] Work Phone: [facility] 02-16-2025 08:58-0400 Body weight 95.71 kg Aure Noling EDGER HAND.[employer] Work Phone: [facility] 02-16-2025 08:58-0400 Diastolic blood pressure 70 mm[Hg] Aure Noling EDGER HAND.[employer] Work Phone: [facility] 02-16-2025 08:58-0400 Heart rate 74 /min Aure Noling EDGER [employer] Work Phone: [facility] 02-16-2025 08:58-0400 Respiratory rate 18 /min Aure Noling EDGER HAND[employer] Work Phone: [facility] 02-16-2025 08:58-0400 SaO2% (BldA) [Mass fraction] 95 % Aure Noling EDGER HAND.[employer] Work Phone: [facility] 02-16-2025 08:58-0400 Systolic blood pressure 108 mm[Hg] Aure Noling EDGER HAND.[employer] Work Phone: [facility] 02-12-2025 18:55-0400 Body mass index (BMI) [Ratio] 29.53 kg/m2 Yovana Stewart Jr., EDGER HAND.[employer] Work Phone: [facility] 02-12-2025 18:55-0400 Body temperature 97.5 [degF] Yovana Stewart Jr., EDGER HAND[employer] Work Phone: [facility] 02-12-2025 18:55-0400 Body weight 90.72 kg Yovana Stewart Jr., EDGER HAND.[employer] Work Phone: [facility] 02-12-2025 18:55-0400 Diastolic blood pressure 91 mm[Hg] Yovana Stewart Jr., EDGER HAND.[employer] Work Phone: [facility] 02-12-2025 18:55-0400 Heart rate 75 /min Yovana Stewart Jr., EDGER HAND.[employer] Work Phone: [facility] 02-12-2025 18:55-0400 Respiratory rate 18 /min Yovana Stewart Jr., EDGER HAND[employer] Work Phone: [facility] 02-12-2025 18:55-0400 SaO2% (BldA) [Mass fraction] 99 % Yovana Stewart Jr., EDGER [employer] Work Phone: [facility] 02-12-2025 18:55-0400 Systolic blood pressure 139 mm[Hg] Yovana Stewart Jr., EDGER HAND[employer] Work Phone: [facility] 02-08-2025 01:21-0400 Body temperature 97.8 [degF] AURE NOLING EXPERIENTIAL THERAPIST-C Work Phone: [facility] 02-08-2025 01:21-0400 Diastolic blood pressure 69 mm[Hg] AURE NOLING EXPERIENTIAL THERAPIST-C Work Phone: [facility] 02-08-2025 01:21-0400 Heart rate 65 /min AURE NOLING EXPERIENTIAL THERAPIST-C Work Phone: [facility] 02-08-2025 01:21-0400 Respiratory rate 16 /min AURE NOLING EXPERIENTIAL THERAPIST-C Work Phone: [facility] 02-08-2025 01:21-0400 SaO2% (BldA) [Mass fraction] 96 % AURE NOLING EXPERIENTIAL THERAPIST-C Work Phone: [facility] 02-08-2025 01:21-0400 Systolic blood pressure 97 mm[Hg] AURE NOLING EXPERIENTIAL THERAPIST-C Work Phone: [facility] 02-07-2025 21:33-0400 Body height 175.26 cm AURE NOLING EXPERIENTIAL THERAPIST-C Work Phone: [facility] 02-07-2025 21:33-0400 Body mass index (BMI) [Ratio] 31.8 kg/m2 AURE NOLING EXPERIENTIAL THERAPIST-C Work Phone: [facility] 02-07-2025 21:33-0400 Body weight 97.7 kg AURE NOLING EXPERIENTIAL THERAPIST-C Work Phone: [facility] 02-07-2025 10:56-0400 Body mass index (BMI) [Ratio] 29.53 kg/m2 Nicolette Villagomez APRN.[employer] Work Phone: [facility] 02-07-2025 10:56-0400 Body temperature 97.59 [degF] Nicolette Villagomez APRN.[employer] Work Phone: [facility] 02-07-2025 10:56-0400 Body weight 90.72 kg Nicolette Villagomez APRN.[employer] Work Phone: [facility] 02-07-2025 10:56-0400 Diastolic blood pressure 61 mm[Hg] Nicolette Villagomez APRN.[employer] Work Phone: [facility] 02-07-2025 10:56-0400 Heart rate 65 /min Nicolette Villagomez APRN.[employer] Work Phone: [facility] 02-07-2025 10:56-0400 Respiratory rate 18 /min Nicolette Villagomez APRN.[employer] Work Phone: [facility] 02-07-2025 10:56-0400 SaO2% (BldA) [Mass fraction] 96 % Nicolette Villagomez APRN.[employer] Work Phone: [facility] 02-07-2025 10:56-0400 Systolic blood pressure 108 mm[Hg] Nicolette Villagomez APRN.[employer] Work Phone: [facility] 01-26-2025 13:17-0400 Body mass index (BMI) [Ratio] 29.53 kg/m2 Yovana Stewart Jr., EDGER HAND.[employer] Work Phone: [facility] 01-26-2025 13:17-0400 Body temperature 97.81 [degF] Yovana Stewart Jr., EDGER HAND.[employer] Work Phone: [facility] 01-26-2025 13:17-0400 Body weight 90.72 kg Yovana Stewart Jr., EDGER HAND.[employer] Work Phone: [facility] 01-26-2025 13:17-0400 Diastolic blood pressure 78 mm[Hg] Yovana Stewart Jr., EDGER HAND.[employer] Work Phone: [facility] 01-26-2025 13:17-0400 Heart rate 78 /min Yovana Stewart Jr., EDGER HAND.[employer] Work Phone: [facility] 01-26-2025 13:17-0400 Respiratory rate 18 /min Yovana Stewart Jr., EDGER HAND.[employer] Work Phone: [facility] 01-26-2025 13:17-0400 SaO2% (BldA) [Mass fraction] 99 % Yovana Stewart Jr., EDGER HAND.[employer] Work Phone: [facility] 01-26-2025 13:17-0400 Systolic blood pressure 145 mm[Hg] Yovana Stewart Jr., EDGER HAND.[employer] Work Phone: [facility] 12-07-2024 03:44-0500 Body temperature 97.8 [degF] AURE NOLING EXPERIENTIAL THERAPIST-C Work Phone: [facility] 12-07-2024 03:44-0500 Diastolic blood pressure 79 mm[Hg] AURE NOLING EXPERIENTIAL THERAPIST-C Work Phone: [facility] 12-07-2024 03:44-0500 Heart rate 81 /min AURE NOLING EXPERIENTIAL THERAPIST-C Work Phone: [facility] 12-07-2024 03:44-0500 Respiratory rate 16 /min AURE NOLING EXPERIENTIAL THERAPIST-C Work Phone: 2(575)389-159967 [place] [address] 12-07-2024 03:44-0500 SaO2% (BldA) [Mass fraction] 99 % AURE NOLING EXPERIENTIAL THERAPIST-C Work Phone: 3(156)775-173020 [place] [address] 12-07-2024 03:44-0500 Systolic blood pressure 136 mm[Hg] AURE NOLING EXPERIENTIAL THERAPIST-C Work Phone: 6(741)150-098520 [place] [address] 12-07-2024 01:37-0500 Body mass index (BMI) [Ratio] 30.1 kg/m2 AURE NOLING EXPERIENTIAL THERAPIST-C Work Phone: 1(647)271-005220 [place] [address] 12-07-2024 01:37-0500 Body weight 95.2 kg AURE NOLING EXPERIENTIAL THERAPIST-C Work Phone: 1(692)722-207020 [place] [address] 10-25-2024 08:13-0500 Body temperature 98 [degF] AURE NOLING EXPERIENTIAL THERAPIST-C Work Phone: 5(840)267-787920 [place] [address] 10-25-2024 08:13-0500 Diastolic blood pressure 68 mm[Hg] AURE NOLING EXPERIENTIAL THERAPIST-C Work Phone: 9(258)887-721320 [place] [address] 10-25-2024 08:13-0500 Heart rate 82 /min AURE NOLING EXPERIENTIAL THERAPIST-C Work Phone: 3(461)470-632420 [place] [address] 10-25-2024 08:13-0500 Respiratory rate 16 /min AURE NOLING EXPERIENTIAL THERAPIST-C Work Phone: 3(800)264-040420 [place] [address] 10-25-2024 08:13-0500 SaO2% (BldA) [Mass fraction] 96 % AURE NOLING EXPERIENTIAL THERAPIST-C Work Phone: 5(762)539-263620 [place] [address] 10-25-2024 08:13-0500 Systolic blood pressure 124 mm[Hg] AURE NOLING EXPERIENTIAL THERAPIST-C Work Phone: 1(805)247-006520 [place] [address] 10-25-2024 06:00-0500 Body mass index (BMI) [Ratio] 30.1 kg/m2 AURE NOLING EXPERIENTIAL THERAPIST-C Work Phone: 1(922)149-111120 [place] [address] 10-25-2024 06:00-0500 Body weight 95.5 kg AURE NOLING EXPERIENTIAL THERAPIST-C Work Phone: [facility] 07-08-2024 09:19-0400 Body mass index (BMI) [Ratio] 28.8 kg/m2 Yovana Stewart Jr., EDGER HAND.[employer] Work Phone: [facility] 07-08-2024 09:19-0400 Body temperature 97.59 [degF] Yovana Stewart Jr., EDGER HAND.[employer] Work Phone: [facility] 07-08-2024 09:19-0400 Body weight 88.45 kg Yovana Stewart Jr., EDGER HAND.[employer] Work Phone: [facility] 07-08-2024 09:19-0400 Diastolic blood pressure 79 mm[Hg] Yovana Stewart Jr., EDGER HAND.[employer] Work Phone: [facility] 07-08-2024 09:19-0400 Heart rate 71 /min Yovana Stewart Jr., EDGER HAND.[employer] Work Phone: [facility] 07-08-2024 09:19-0400 Respiratory rate 18 /min Yovana Stewart Jr., EDGER HAND.[employer] Work Phone: [facility] 07-08-2024 09:19-0400 SaO2% (BldA) [Mass fraction] 97 % Yvoana Stewart Jr., EDGER HAND.[employer] Work Phone: [facility] 07-08-2024 09:19-0400 Systolic blood pressure 118 mm[Hg] Yovana Stewart Jr., EDGER HAND.[employer] Work Phone: [facility] 07-06-2024 08:36-0400 Body temperature 99.1 [degF] Alba Holder EDGER HAND.[employer] Work Phone: [facility] 07-06-2024 08:36-0400 Diastolic blood pressure 70 mm[Hg] Alba Holder EDGER HAND.[employer] Work Phone: [facility] 07-06-2024 08:36-0400 Heart rate 88 /min Alba Vianey-Eibara EDGER HAND.[employer] Work Phone: [facility] 07-06-2024 08:36-0400 Respiratory rate 18 /min Alba Vianey-Eibara EDGER HAND.[employer] Work Phone: [facility] 07-06-2024 08:36-0400 SaO2% (BldA) [Mass fraction] 100 % Alba Vianey-Eibara EDGER HAND.[employer] Work Phone: [facility] 07-06-2024 08:36-0400 Systolic blood pressure 113 mm[Hg] Alba Vianey-Eibara EDGER HAND.[employer] Work Phone: [facility] 04-28-2024 13:43-0400 Diastolic blood pressure 69 mm[Hg] Radhika Scott MD Work Phone: [facility] 04-28-2024 13:43-0400 Heart rate 71 /min Radhika Scott MD Work Phone: [facility] 04-28-2024 13:43-0400 Respiratory rate 18 /min Radhika Scott MD Work Phone: [facility] 04-28-2024 13:43-0400 SaO2% (BldA) [Mass fraction] 100 % Radhika Scott MD Work Phone: [facility] 04-28-2024 13:43-0400 Systolic blood pressure 106 mm[Hg] Radhika Scott MD Work Phone: [facility] 04-28-2024 13:23-0400 Body temperature 98.4 [degF] Radhika Scott MD Work Phone: [facility] [employer] 04-28-2024 11:51-0400 Body height 175.3 cm Radhika Scott MD Work Phone: [facility] [employer] 04-28-2024 11:51-0400 Body mass index (BMI) [Ratio] 27.32 kg/m2 Radhika Scott MD Work Phone: [facility] [employer] 04-28-2024 11:51-0400 Body weight 83.92 kg Radhika Scott MD Work Phone: [facility] 03-30-2024 08:32-0400 Body height 175.3 cm Aureterri Carlton EDGER HAND.[employer] Work Phone: [facility] 03-30-2024 08:32-0400 Body mass index (BMI) [Ratio] 28.06 kg/m2 Aureterri Carlton EDGER HAND.[employer] Work Phone: [facility] 03-30-2024 08:32-0400 Body temperature 98.29 [degF] Aure Carlton EDGER HAND.[employer] Work Phone: [facility] 03-30-2024 08:32-0400 Body weight 86.18 kg Aure Carlton EDGER HAND.[employer] Work Phone: [facility] 03-30-2024 08:32-0400 Diastolic blood pressure 60 mm[Hg] Aureterri Carlton EDGER HAND.[employer] Work Phone: [facility] 03-30-2024 08:32-0400 Heart rate 79 /min Aure Carlton EDGER HAND.[employer] Work Phone: [facility] 03-30-2024 08:32-0400 SaO2% (BldA) [Mass fraction] 99 % Aureterri Carlton EDGER HAND.[employer] Work Phone: [facility] 03-30-2024 08:32-0400 Systolic blood pressure 102 mm[Hg] Aure Carlton EDGER HAND.[employer] Work Phone: [facility] 03-19-2024 19:14-0400 Body mass index (BMI) [Ratio] 27.91 kg/m2 Yovana Stewart Jr., EDGER HAND.[employer] Work Phone: [facility] 03-19-2024 19:14-0400 Body temperature 97.59 [degF] Yovana Stewart Jr., EDGER HAND.[employer] Work Phone: [facility] 03-19-2024 19:14-0400 Body weight 85.73 kg Yovana Stewart Jr., EDGER HAND.[employer] Work Phone: [facility] 03-19-2024 19:14-0400 Diastolic blood pressure 82 mm[Hg] Yovana Stewart Jr., EDGER HAND.[employer] Work Phone: [facility] 03-19-2024 19:14-0400 Heart rate 83 /min Yovana Stewart Jr., EDGER HAND.[employer] Work Phone: [facility] 03-19-2024 19:14-0400 Respiratory rate 18 /min Yovana Stewart Jr., EDGER HAND.[employer] Work Phone: [facility] 03-19-2024 19:14-0400 SaO2% (BldA) [Mass fraction] 100 % Yovana Stewart Jr., EDGER HAND.[employer] Work Phone: [facility] 03-19-2024 19:14-0400 Systolic blood pressure 136 mm[Hg] Yovana Stewart Jr., EDGER HAND.[employer] Work Phone: [facility] 03-04-2024 15:21-0400 Body temperature 98.2 [degF] Ana Shevchuk EDGER HAND.[employer] Work Phone: [facility] 03-04-2024 15:21-0400 Diastolic blood pressure 82 mm[Hg] Ana Shevchuk EDGER HAND.[employer] Work Phone: [facility] 03-04-2024 15:21-0400 Heart rate 68 /min Ana Shevchuk EDGER HAND.[employer] Work Phone: [facility] 03-04-2024 15:21-0400 Respiratory rate 17 /min Ana Shevchuk EDGER HAND.[employer] Work Phone: [facility] 03-04-2024 15:21-0400 SaO2% (BldA) [Mass fraction] 99 % Ana Shevchuk EDGER HAND.[employer] Work Phone: [facility] 03-04-2024 15:21-0400 Systolic blood pressure 123 mm[Hg] Ana Shevchuk EDGER HAND.[employer] Work Phone: [facility] 03-03-2024 15:07-0400 Body temperature 97.2 [degF] oYvana Stewart Jr., EDGER HAND.[employer] Work Phone: [facility] 03-03-2024 15:07-0400 Diastolic blood pressure 72 mm[Hg] Yovana Stewart Jr., EDGER HAND.[employer] Work Phone: [facility] 03-03-2024 15:07-0400 Heart rate 72 /min Yovana Stewart Jr., EDGER HAND.[employer] Work Phone: [facility] 03-03-2024 15:07-0400 Respiratory rate 18 /min Yovana Stewart Jr., EDGER HAND.[employer] Work Phone: [facility] 03-03-2024 15:07-0400 SaO2% (BldA) [Mass fraction] 98 % Yovana Stewart Jr., EDGER HAND.[employer] Work Phone: [facility] 03-03-2024 15:07-0400 Systolic blood pressure 104 mm[Hg] Yovana Stewart Jr., EDGER HAND.[employer] Work Phone: [facility] 11-26-2023 16:17-0500 Body height 175.26 cm [facility] 11-26-2023 16:17-0500 Body mass index (BMI) [Ratio] 26.9 kg/m2 [facility] 11-26-2023 16:17-0500 Body temperature 98.1 [degF] [facility] 11-26-2023 16:17-0500 Body weight 82.55 kg [facility] 11-26-2023 16:17-0500 Diastolic blood pressure 87 mm[Hg] [facility] 11-26-2023 16:17-0500 Heart rate 84 /min [facility] 11-26-2023 16:17-0500 Respiratory rate 16 /min [facility] 11-26-2023 16:17-0500 SaO2% (BldA) [Mass fraction] 99 % [facility] 11-26-2023 16:17-0500 Systolic blood pressure 125 mm[Hg] [facility] 11-02-2023 13:09-0500 Body temperature 97.2 [degF] Aurelio Reyes MD Work Phone: [facility] 11-02-2023 13:09-0500 Body weight 83.01 kg Aurelio Reyes MD Work Phone: [facility] 11-02-2023 13:09-0500 Diastolic blood pressure 90 mm[Hg] Aurelio Reyes MD Work Phone: [facility] 11-02-2023 13:09-0500 Heart rate 72 /min Aurelio Reyes MD Work Phone: [facility] 11-02-2023 13:09-0500 Respiratory rate 18 /min Aurelio Reyes MD Work Phone: [facility] 11-02-2023 13:09-0500 SaO2% (BldA) [Mass fraction] 99 % Aurelio Reyes MD Work Phone: [facility] 11-02-2023 13:09-0500 Systolic blood pressure 137 mm[Hg] Aurelio Reyes MD Work Phone: [facility] 09-25-2023 14:44-0500 Body height 177.8 cm Aundrea Shultz EDGER HAND.[employer] Work Phone: [facility] 09-25-2023 14:44-0500 Body weight 84.37 kg Aundrea Shultz EDGER HAND.[employer] Work Phone: [facility] 09-08-2023 16:08-0400 Body temperature 97.39 [degF] Cr Mace MD Work Phone: [facility] 09-08-2023 16:08-0400 Diastolic blood pressure 74 mm[Hg] Cr Mace MD Work Phone: [facility] 09-08-2023 16:08-0400 Heart rate 69 /min Cr Mace MD Work Phone: [facility] 09-08-2023 16:08-0400 Respiratory rate 18 /min Cr Mace MD Work Phone: [facility] 09-08-2023 16:08-0400 SaO2% (BldA) [Mass fraction] 97 % Cr Mace MD Work Phone: [facility] 09-08-2023 16:08-0400 Systolic blood pressure 118 mm[Hg] Cr Maec MD Work Phone: [facility] 09-06-2023 13:59-0400 Body height 177.8 cm Aure Noling EDGER HAND.[employer] Work Phone: [facility] 09-06-2023 13:59-0400 Body temperature 97.9 [degF] Aure Noling EDGER HAND.[employer] Work Phone: [facility] 09-06-2023 13:59-0400 Body weight 84.55 kg Aure Noling EDGER HAND.[employer] Work Phone: [facility] 09-06-2023 13:59-0400 Diastolic blood pressure 68 mm[Hg] Aure Noling EDGER HAND.[employer] Work Phone: [facility] 09-06-2023 13:59-0400 Heart rate 76 /min Aure Noling EDGER HAND.[employer] Work Phone: [facility] 09-06-2023 13:59-0400 Respiratory rate 17 /min Aure Noling EDGER HAND.[employer] Work Phone: [facility] 09-06-2023 13:59-0400 SaO2% (BldA) [Mass fraction] 99 % Aure Noling EDGER HAND.[employer] Work Phone: [facility] 09-06-2023 13:59-0400 Systolic blood pressure 110 mm[Hg] Aure Noling EDGER HAND.[employer] Work Phone: [facility] 07-07-2023 05:01-0400 Body height 175.26 cm No Primary Care Physician [facility] 07-07-2023 05:01-0400 Body mass index (BMI) [Ratio] 27.8 kg/m2 No Primary Care Physician [facility] 07-07-2023 05:01-0400 Body temperature 97.7 [degF] No Primary Care Physician [facility] 07-07-2023 05:01-0400 Body weight 85.4 kg No Primary Care Physician [facility] 07-07-2023 05:01-0400 Diastolic blood pressure 85 mm[Hg] No Primary Care Physician [facility] 07-07-2023 05:01-0400 Heart rate 79 /min No Primary Care Physician [facility] 07-07-2023 05:01-0400 Respiratory rate 20 /min No Primary Care Physician [facility] 07-07-2023 05:01-0400 SaO2% (BldA) [Mass fraction] 100 % No Primary Care Physician [facility] 07-07-2023 05:01-0400 Systolic blood pressure 145 mm[Hg] No Primary Care Physician [facility] 05-26-2023 10:28-0400 Body temperature 97.7 [degF] Urg Guston Work Phone: [facility] 05-26-2023 10:28-0400 Body weight 80.29 kg Urg Guston Work Phone: [facility] 05-26-2023 10:28-0400 Diastolic blood pressure 67 mm[Hg] Urg Guston Work Phone: [facility] 05-26-2023 10:28-0400 Heart rate 77 /min Urg Guston Work Phone: [facility] 05-26-2023 10:28-0400 Respiratory rate 20 /min Urg Guston Work Phone: [facility] 05-26-2023 10:28-0400 SaO2% (BldA) [Mass fraction] 97 % Urg Guston Work Phone: [facility] 05-26-2023 10:28-0400 Systolic blood pressure 122 mm[Hg] Urg Guston Work Phone: [facility] 05-07-2023 12:02-0400 Body temperature 97.7 [degF] Carol Centeno MD Work Phone: [facility] 05-07-2023 12:02-0400 Body weight 81.74 kg Carol Centeno MD Work Phone: [facility] 05-07-2023 12:02-0400 Diastolic blood pressure 85 mm[Hg] Carol Centeno MD Work Phone: [facility] 05-07-2023 12:02-0400 Heart rate 73 /min Carol Centeno MD Work Phone: [facility] 05-07-2023 12:02-0400 Respiratory rate 18 /min Carol Centeno MD Work Phone: [facility] 05-07-2023 12:02-0400 SaO2% (BldA) [Mass fraction] 98 % Carol Centeno MD Work Phone: [facility] 05-07-2023 12:02-0400 Systolic blood pressure 131 mm[Hg] Carol Centeno MD Work Phone: [facility] 03-14-2023 08:54-0400 Heart rate 45 /min Tere Painter MD Work Phone: [facility] 03-14-2023 08:54-0400 Respiratory rate 16 /min Tere Painter MD Work Phone: [facility] 03-14-2023 08:54-0400 SaO2% (BldA) [Mass fraction] 99 % Tere Painter MD Work Phone: [facility] 02-10-2023 12:25-0400 Body temperature 98.29 [degF] Cr Mace MD Work Phone: [facility] 02-10-2023 12:25-0400 Body weight 80.74 kg Cr Mace MD Work Phone: [facility] 02-10-2023 12:25-0400 Diastolic blood pressure 74 mm[Hg] Cr Mace MD Work Phone: [facility] 02-10-2023 12:25-0400 Heart rate 62 /min Cr Mace MD Work Phone: [facility] 02-10-2023 12:25-0400 Respiratory rate 18 /min Cr Mace MD Work Phone: [facility] 02-10-2023 12:25-0400 SaO2% (BldA) [Mass fraction] 100 % Cr Mace MD Work Phone: [facility] 02-10-2023 12:25-0400 Systolic blood pressure 121 mm[Hg] Cr Mace MD Work Phone: [facility] 01-06-2023 14:01-0500 Body temperature 98.6 [degF] Gretchen Andersen DO Work Phone: [facility] 01-06-2023 14:01-0500 Body weight 83.92 kg Gretchen Andersen DO Work Phone: [facility] 01-06-2023 14:01-0500 Diastolic blood pressure 63 mm[Hg] Gretchen Andersen DO Work Phone: [facility] 01-06-2023 14:01-0500 Heart rate 66 /min Gretchen Andersen DO Work Phone: [facility] 01-06-2023 14:01-0500 Respiratory rate 16 /min Gretchen Andersen DO Work Phone: [facility] 01-06-2023 14:01-0500 SaO2% (BldA) [Mass fraction] 99 % Gretchen Andersen DO Work Phone: [facility] 01-06-2023 14:01-0500 Systolic blood pressure 124 mm[Hg] Gretchen Andersen DO Work Phone: [facility] 12-31-2022 11:28-0500 Body temperature 97.7 [degF] Ash Duke PA-C Work Phone: [facility] 12-31-2022 11:28-0500 Body weight 82.1 kg Ash Duke PA-C Work Phone: [facility] 12-31-2022 11:28-0500 Diastolic blood pressure 70 mm[Hg] Ash Dyko PA-C Work Phone: [facility] 12-31-2022 11:28-0500 Heart rate 60 /min Ash Dyko PA-C Work Phone: [facility] 12-31-2022 11:28-0500 Respiratory rate 16 /min Ash Dyko PA-C Work Phone: [facility] 12-31-2022 11:28-0500 SaO2% (BldA) [Mass fraction] 99 % Ash Dyko PA-C Work Phone: [facility] 12-31-2022 11:28-0500 Systolic blood pressure 108 mm[Hg] Ash Dyko PA-C Work Phone: [facility] 12-27-2022 09:32-0500 Heart rate 69 /min Tere Painter MD Work Phone: [facility] 12-27-2022 09:32-0500 Respiratory rate 16 /min Tere Painter MD Work Phone: [facility] 12-27-2022 09:32-0500 SaO2% (BldA) [Mass fraction] 99 % Tere Painter MD Work Phone: [facility] 09-24-2022 20:36-0500 Body height 177.8 cm [facility] Work Phone: 09-24-2022 20:36-0500 Body mass index (BMI) [Ratio] 23.2 kg/m2 [facility] Work Phone: 09-24-2022 20:36-0500 Body temperature 97.6 [degF] [facility] Work Phone: 09-24-2022 20:36-0500 Body weight 73.48 kg [facility] Work Phone: 09-24-2022 20:36-0500 Diastolic blood pressure 78 mm[Hg] [facility] Work Phone: 09-24-2022 20:36-0500 Heart rate 84 /min [facility] Work Phone: 09-24-2022 20:36-0500 Respiratory rate 18 /min [facility] Work Phone: 09-24-2022 20:36-0500 SaO2% (BldA) [Mass fraction] 97 % [facility] Work Phone: 09-24-2022 20:36-0500 Systolic blood pressure 144 mm[Hg] [facility] Work Phone: 09-02-2022 21:53-0400 Diastolic blood pressure 83 mm[Hg] [facility] Work Phone: 09-02-2022 21:53-0400 Heart rate 95 /min [facility] Work Phone: 09-02-2022 21:53-0400 Respiratory rate 18 /min [facility] Work Phone: 09-02-2022 21:53-0400 SaO2% (BldA) [Mass fraction] 96 % [facility] Work Phone: 09-02-2022 21:53-0400 Systolic blood pressure 139 mm[Hg] [facility] Work Phone: 09-02-2022 19:24-0400 Body mass index (BMI) [Ratio] 23.2 kg/m2 [facility] Work Phone: 09-02-2022 19:24-0400 Body temperature 97.6 [degF] [facility] Work Phone: 09-02-2022 19:24-0400 Body weight 73.48 kg [facility] Work Phone: 08-12-2022 22:29-0400 Diastolic blood pressure 74 mm[Hg] [facility] Work Phone: 08-12-2022 22:29-0400 Heart rate 85 /min [facility] Work Phone: 08-12-2022 22:29-0400 Respiratory rate 15 /min [facility] Work Phone: 08-12-2022 22:29-0400 SaO2% (BldA) [Mass fraction] 98 % [facility] Work Phone: 08-12-2022 22:29-0400 Systolic blood pressure 125 mm[Hg] [facility] Work Phone: 08-12-2022 21:55-0400 Body temperature 97 [degF] [facility] Work Phone: 08-12-2022 21:52-0400 Body height 177.8 cm [facility] Work Phone: 08-12-2022 21:52-0400 Body mass index (BMI) [Ratio] 23.8 kg/m2 [facility] Work Phone: 08-12-2022 21:52-0400 Body weight 75.4 kg [facility] Work Phone: 08-07-2022 23:08-0400 Body mass index (BMI) [Ratio] 22.2 kg/m2 [facility] Work Phone: 08-07-2022 23:08-0400 Body temperature 97.4 [degF] [facility] Work Phone: 08-07-2022 23:08-0400 Body weight 70.3 kg [facility] Work Phone: 08-07-2022 23:08-0400 Diastolic blood pressure 80 mm[Hg] [facility] Work Phone: 08-07-2022 23:08-0400 Heart rate 77 /min [facility] Work Phone: 08-07-2022 23:08-0400 Respiratory rate 15 /min [facility] Work Phone: 08-07-2022 23:08-0400 SaO2% (BldA) [Mass fraction] 100 % [facility] Work Phone: 08-07-2022 23:08-0400 Systolic blood pressure 130 mm[Hg] [facility] Work Phone: 07-17-2022 13:17-0400 Body temperature 98 [degF] [facility] Work Phone: 07-17-2022 13:17-0400 Diastolic blood pressure 70 mm[Hg] [facility] Work Phone: 07-17-2022 13:17-0400 Heart rate 75 /min [facility] Work Phone: 07-17-2022 13:17-0400 Respiratory rate 18 /min [facility] Work Phone: 07-17-2022 13:17-0400 SaO2% (BldA) [Mass fraction] 100 % [facility] Work Phone: 07-17-2022 13:17-0400 Systolic blood pressure 115 mm[Hg] [facility] Work Phone: 07-17-2022 05:47-0400 Body weight 75.1 kg Out [facility] Work Phone: 07-14-2022 00:40-0400 Body height 177.8 cm [facility] Work Phone: 07-14-2022 00:40-0400 Body mass index (BMI) [Ratio] 23.5 kg/m2 [facility] Work Phone: 07-13-2022 22:47-0400 Body temperature 102.5 [degF] [facility] Work Phone: 07-13-2022 22:47-0400 Diastolic blood pressure 65 mm[Hg] [facility] Work Phone: 07-13-2022 22:47-0400 Heart rate 101 /min [facility] Work Phone: 07-13-2022 22:47-0400 Respiratory rate 18 /min [facility] Work Phone: 07-13-2022 22:47-0400 SaO2% (BldA) [Mass fraction] 98 % [facility] Work Phone: 07-13-2022 22:47-0400 Systolic blood pressure 130 mm[Hg] [facility] Work Phone: 07-13-2022 17:11-0400 Body height 177.8 cm Out [facility] Work Phone: 07-13-2022 17:11-0400 Body mass index (BMI) [Ratio] 22.2 kg/m2 [facility] Work Phone: 07-13-2022 17:11-0400 Body weight 70.3 kg Out [facility] Work Phone: 06-17-2022 19:45-0400 Body height 175.26 cm Out [facility] Work Phone: 06-17-2022 19:45-0400 Body mass index (BMI) [Ratio] 22.8 kg/m2 [facility] Work Phone: 06-17-2022 19:45-0400 Body temperature 97.8 [degF] Out [facility] Work Phone: 06-17-2022 19:45-0400 Body weight 70.3 kg Out [facility] Work Phone: 06-17-2022 19:45-0400 Diastolic blood pressure 87 mm[Hg] [facility] Work Phone: 06-17-2022 19:45-0400 Heart rate 84 /min Out [facility] Work Phone: 06-17-2022 19:45-0400 Respiratory rate 16 /min Out [facility] Work Phone: 06-17-2022 19:45-0400 SaO2% (BldA) [Mass fraction] 97 % [facility] Work Phone: 06-17-2022 19:45-0400 Systolic blood pressure 126 mm[Hg] [facility] Work Phone: 06-04-2022 10:45-0400 Body mass index (BMI) [Ratio] 22.5 kg/m2 [facility] Work Phone: 06-04-2022 10:45-0400 Body weight 71.27 kg Out [facility] Work Phone: 04-05-2022 07:35-0400 Body temperature 98.3 [degF] Out [facility] Work Phone: 04-05-2022 07:35-0400 Diastolic blood pressure 70 mm[Hg] [facility] Work Phone: 04-05-2022 07:35-0400 Heart rate 85 /min Out [facility] Work Phone: 04-05-2022 07:35-0400 Respiratory rate 16 /min Out [facility] Work Phone: 04-05-2022 07:35-0400 SaO2% (BldA) [Mass fraction] 98 % [facility] Work Phone: 04-05-2022 07:35-0400 Systolic blood pressure 110 mm[Hg] [facility] Work Phone: 04-05-2022 06:40-0400 Body height 175.26 cm Out [facility] Work Phone: 04-05-2022 06:40-0400 Body mass index (BMI) [Ratio] 20.4 kg/m2 [facility] Work Phone: 04-05-2022 06:40-0400 Body weight 62.7 kg Out [facility] Work Phone: 03-05-2022 13:55-0400 Diastolic blood pressure 71 mm[Hg] Out [facility] Work Phone: 03-05-2022 13:55-0400 Heart rate 106 /min Out [facility] Work Phone: 03-05-2022 13:55-0400 Respiratory rate 18 /min Out [facility] Work Phone: 03-05-2022 13:55-0400 SaO2% (BldA) [Mass fraction] 98 % [facility] Work Phone: 03-05-2022 13:55-0400 Systolic blood pressure 105 mm[Hg] Out [facility] Work Phone: 03-05-2022 09:19-0400 Inhaled oxygen flow rate 2 L/min Out [facility] Work Phone: 03-05-2022 08:44-0400 Body height 177.8 cm Out [facility] Work Phone: 03-05-2022 08:44-0400 Body mass index (BMI) [Ratio] 19.9 kg/m2 [facility] Work Phone: 03-05-2022 08:44-0400 Body temperature 98.1 [degF] Out [facility] Work Phone: 03-05-2022 08:44-0400 Body weight 63.04 kg Out [facility] Work Phone: Encounters Encounter Date Encounter Type Care Provider Facility Start: 05-03-2025 End: 05-04-2025 ambulatory Aure L Noling EDGER HAND.[employer] Work Phone: [facility] Start: 05-03-2025 End: 05-04-2025 Patient encounter procedure Aure L Noling EDGER HAND.[employer] Work Phone: [facility] Comment on above: Refereals and Abilif y Start: 05-03-2025 End: 05-03-2025 Refill Aure L Noling EDGER HAND.[employer] Work Phone: [facility] Comment on above: Refill Request Start: 04-28-2025 End: 04-28-2025 Refill Aure L Noling EDGER HAND.[employer] Work Phone: [facility] Comment on above: Refill Request Start: 04-19-2025 End: 04-19-2025 Telephone encounter Jerald Norris MD [facility] Comment on above: Appointment Start: 04-16-2025 End: 04-16-2025 ambulatory AURE L NOLING Facility:[id number] Start: 04-16-2025 End: 04-16-2025 Patient encounter procedure Yovana Stewart EDGER HAND.[employer] Work Phone: [facility] [place] Comment on above: Chest congestion (Pr imary Dx); Acute cough Start: 04-05-2025 End: 04-05-2025 ambulatory Aure L Noling EDGER HAND.[employer] Work Phone: [facility] Start: 04-05-2025 End: 04-05-2025 Patient encounter procedure Aure L Noling EDGER HAND.[employer] Work Phone: [facility] Comment on above: Cough syrup Start: 03-31-2025 End: 03-31-2025 E-mail encounter from caregiver Aure L Noling EDGER HAND.[employer] Work Phone: [facility] Start: 03-31-2025 End: 03-31-2025 Patient encounter procedure Aure L Noling EDGER HAND.[employer] Work Phone: [facility] Comment on above: Central Scheduling N nguyen (Email said it was over quota) Start: 03-30-2025 End: 03-30-2025 Patient encounter procedure Baldev Reyes MD Work Phone: [facility] Comment on above: Acute upper respirat ory infection (Primary Dx); Acute cough; Bronchitis Start: 03-30-2025 End: 03-30-2025 ambulatory AURE L NOLING Facility:[id number] Start: 03-30-2025 End: 03-30-2025 Telephone encounter Aure L Noling EDGER HAND.[employer] Work Phone: [facility] Comment on above: Patient Update; Orde rs Results Start: 03-16-2025 End: 03-17-2025 Telephone encounter Aure L Noling EDGER HAND.[employer] Work Phone: [facility] Comment on above: Results; Patient Que stion Start: 03-13-2025 End: 03-13-2025 ambulatory AURE L NOLING Facility:[id number] Start: 03-08-2025 End: 03-08-2025 Refill Aure L Noling EDGER HAND.[employer] Work Phone: [facility] Start: 02-16-2025 End: 02-16-2025 Office outpatient visit 25 minutes Aure L Noling EDGER HAND.[employer] Work Phone: [facility] Comment on above: Hyperlipidemia, unsp ecified hyperlipidemia type (Primary Dx); Alcoholic cirrhosis of liver without ascites (HCC); Depression, unspecified depression type; Anxiety; Pancytopenia (HCC); Vitamin D deficiency, unspecified; Prediabetes; Insomnia, unspecified type; Acute pain of right shoulder; Polyneuropathy, unspecified; Class 1 obesity with serious comorbidity and body mass index (BMI) of 31.0 to 31.9 in adult, unspecified obesity type Start: 02-16-2025 End: 02-16-2025 ambulatory AURE CARLTON Facility:[id number] Start: 02-12-2025 End: 02-12-2025 Patient encounter procedure Yovana Stewart APRN.[employer] Work Phone: [facility] Comment on above: Acute cough (Primary Dx); Acute pain of right shoulder Start: 02-12-2025 End: 02-15-2025 ambulatory AURE CARLTON Facility:[id number] Start: 02-08-2025 End: 02-08-2025 Patient encounter procedure Ccf Provider [facility] Department Start: 02-07-2025 End: 02-08-2025 Emergency department patient visit AURE FREGOSOC Work Phone: -Emergency Department Work Phone: Start: 02-07-2025 End: 02-07-2025 Subsequent hospital visit by physician Ryan Emmanuel Work Phone: [facility] Comment on above: Acute pain of right shoulder [M25.511] Start: 02-07-2025 End: 02-07-2025 Office outpatient visit 40 minutes Nicolette Villagomez APRN.[employer] Work Phone: [facility] Comment on above: Acute pain of right shoulder (Primary Dx); Neuropathy; Bursitis of right shoulder Start: 02-07-2025 End: 02-07-2025 ambulatory SELF Facility:[id number] Start: 02-04-2025 End: 02-04-2025 Refill Aure Carlton APRN.CNP Work Phone: [facility] Start: 01-27-2025 End: 01-27-2025 Telephone encounter Yovana Stewart APRN.CNP Work Phone: [facility] Comment on above: Medication Problem ( Patient is requesting a prescription for a muscle relaxer since she only has one or two pills left of current muscle relaxer. /) Start: 01-26-2025 End: 01-26-2025 Subsequent hospital visit by physician Ryan Emmanuel Work Phone: [facility] Comment on above: Acute cough [R05.1] Start: 01-26-2025 End: 01-26-2025 Patient encounter procedure Yovana Stewart APRN.CNP Work Phone: [facility] Comment on above: GARZA (dyspnea on exer tion) (Primary Dx); Acute cough; Acute pain of right shoulder Start: 01-26-2025 End: 01-26-2025 ambulatory [facility] Facility:[id number] Start: 01-07-2025 End: 01-08-2025 Patient encounter procedure Ccf Provider [facility] Department Start: 01-03-2025 End: 03-05-2025 Follow-up encounter Aure Carlton APRN.CNP Work Phone: [facility] Start: 01-01-2025 End: 01-01-2025 ambulatory [facility] Facility:[id number] Start: 12-24-2024 End: 12-24-2024 Patient encounter procedure AURE MCDONALD -Nuclear Medicine, [facility] Work Phone: Start: 12-24-2024 End: 12-24-2024 ambulatory [facility] Facility:[facility] Start: 12-22-2024 End: 01-02-2025 Telephone encounter Aure Carlton APRN.CNP Work Phone: [facility] Start: 12-17-2024 End: 03-18-2025 Transcribe Orders Radhika Scott MD Work Phone: [facility] Central Scheduling Start: 12-17-2024 End: 12-17-[address] Radhika Scott MD -Ultrasound, [facility] Work Phone: Start: 12-17-2024 End: 12-17-2024 ambulatory Radhika Scott Facility:[facility] Start: 12-07-2024 End: 12-07-2024 Emergency department patient visit [facility] -Emergency Department Work Phone: Start: 11-25-2024 End: 11-25-2024 Telephone encounter Neurology Provider Neurology Start: 11-23-2024 End: 11-23-2024 Office outpatient visit 15 minutes Lorenza Alberto EXPERIENTIAL THERAPIST Work Phone: [facility] Comment on above: Neuropathy (Primary Dx) Start: 11-23-2024 End: 11-23-2024 ambulatory Aure L Noling EDGER HAND.[employer] Work Phone: [facility] Start: 11-23-2024 End: 11-23-2024 Patient encounter procedure Aure L Noling EDGER HAND.[employer] Work Phone: [facility] Comment on above: and Saturday phone call Start: 11-08-2024 End: 11-09-2024 Refill Aure L Noling EDGER HAND.[employer] Work Phone: [facility] Comment on above: Refill Request Start: 10-28-2024 End: 10-28-2024 ambulatory AURE L NOLING Facility:[id number] Start: 10-25-2024 Non-patient / Non-visit Dr. Rosanna Vaca [facility] Work Phone: Start: 10-24-2024 Non-patient / Non-visit Dr. Rosanna Vaca [facility] Work Phone: Start: 10-23-2024 End: 10-25-2024 Evaluation and management of inpatient Dr. Gavin Vaca DO -Medical Surgical 3 Work Phone: Start: 10-23-2024 ambulatory Rosana Pizano Facility:[facility] Start: 10-23-2024 Non-patient / Non-visit Dr. Rosana lopez MD [facility] Work Phone: Start: 10-13-2024 End: 10-13-2024 Refill Aure L Noling EDGER HAND.[employer] Work Phone: [facility] Comment on above: Refill Request Start: 10-12-2024 End: 10-12-2024 Office outpatient visit 25 minutes Aure L Noling EDGER HAND.[employer] Work Phone: [facility] Comment on above: Anemia, unspecified type (Primary Dx); Neuropathy; Anxiety Start: 10-12-2024 End: 10-12-2024 ambulatory AURE L NOLING Facility:[id number] Start: 10-11-2024 End: 10-12-2024 Refill Aure L Noling EDGER HAND.[employer] Work Phone: [facility] Comment on above: Refill Request Start: 10-10-2024 End: 10-10-2024 ambulatory AURE L NOLING Facility:[id number] Start: 09-30-2024 End: 09-30-2024 ambulatory RADHIKA NAHID [facility] Facility:[id number] Start: 09-15-2024 End: 09-15-2024 Telephone encounter Lorenza Alberto NP Work Phone: [facility] Start: 09-12-2024 End: 09-14-2024 Refill Aure L Noling EDGER HAND.[employer] Work Phone: [facility] Comment on above: Refill Request Start: 09-08-2024 End: 09-14-2024 Telephone encounter Rohini Brown MA [facility] Start: 08-27-2024 End: 08-28-2024 Patient encounter procedure Ccf Provider [facility] Department Start: 08-21-2024 End: 08-21-2024 Office outpatient visit 40 minutes Lorenza Sawyer Remy LAST Work Phone: [facility] Comment on above: Neuropathy (Primary Dx) Start: 08-10-2024 End: 08-10-2024 ambulatory AURE LING Facility:[facility] Start: 08-08-2024 End: 08-08-2024 ambulatory JUNO JENSEN Facility:[id number] Start: 08-08-2024 End: 08-10-2024 Clinisync Result Encounter Juno Jensen MD Work Phone: [facility] Unsolicited Start: 08-08-2024 End: 08-10-2024 Clinisync Result Encounter Juno Jensen MD Work Phone: [facility] Unsolicited Start: 08-05-2024 End: 08-05-2024 Telephone encounter Juno Jensen MD Work Phone: [facility] Start: 07-10-2024 End: 07-11-2024 Emergency department patient visit [facility] Facility:[facility] Start: 07-10-2024 End: 07-10-2024 Telephone encounter Yovana Stewart APRN.[employer] Work Phone: [facility] Start: 07-08-2024 End: 07-08-2024 Emergency department patient visit [facility] Facility:[facility] Start: 07-08-2024 End: 07-08-2024 ambulatory SELF Facility:[id number] Start: 07-08-2024 End: 07-09-2024 Patient encounter procedure Yovana Stewart APRN.[employer] Work Phone: [facility] Comment on above: Dysuria (Primary Dx) ; Urgency of urination Start: 07-06-2024 End: 07-06-2024 ambulatory SELF Facility:[id number] Start: 07-06-2024 End: 07-06-2024 Patient encounter procedure Alba Holder APRN.[employer]AL [employer] Work Phone: [facility] [place] Comment on above: Viral illness (Prima ry Dx) Start: 06-25-2024 End: 06-25-2024 ambulatory [facility] Facility:[id number] Start: 05-25-2024 Telephone encounter Aureterri mendez EDGER HAND.[employer]LTRY Work Phone: [facility] Start: 05-15-2024 Refill Aure L Nodiana EDGER HAND.OFFAL ICER POULTRY Work Phone: [facility] Comment on above: Refill Request Start: 05-01-2024 ambulatory Aure L Noling EDGER HAND.OFFAL ICER POULTRY Work Phone: [facility] Start: 05-01-2024 Patient encounter procedure Aure L Noling EDGER HAND.OFFAL ICER POULTRY Work Phone: [facility] Comment on above: Anxiety medication Start: 04-28-2024 End: 04-28-2024 ambulatory AURETERRI CARLTON [facility] Start: 04-28-2024 End: 04-28-2024 Subsequent hospital visit by physician Radhika Scott MD Work Phone: [facility] Comment on above: Esophageal varices w ithout bleeding (HCC); Unspecified cirrhosis of liver (HCC) Start: 04-20-2024 ambulatory Aureterri Taylorling EDGER HAND.OFFAL ICER POULTRY Work Phone: [facility] Start: 04-20-2024 Patient encounter procedure Aure L Noling EDGER HAND.OFFAL ICER POULTRY Work Phone: [facility] Comment on above: Dietary questions Start: 04-09-2024 End: 04-09-2024 ambulatory JAMES ALBRIGHT Facility:[facility] Start: 04-09-2024 End: 04-09-2024 Patient encounter procedure James Albright DC Work Phone: [facility] Comment on above: Polyneuropathy, unsp ecified (Primary Dx); Neuropathy Start: 03-31-2024 Telephone encounter Aundrea Shultz EDGER HAND.OFFAL ICER POULTRY Work Phone: [facility] Comment on above: Returning Patient's Call Start: 03-30-2024 End: 03-30-2024 Office outpatient visit 25 minutes Aure Carlton APRN.OFFAL ICER POULTRY Work Phone: [facility] Sukhwinderdipesh Comment on above: Hyperlipidemia, unsp ecified hyperlipidemia type (Primary Dx); Depression, unspecified depression type; Anxiety; Insomnia, unspecified type; Polyneuropathy, unspecified; Vitamin D deficiency, unspecified; Impaired fasting glucose; Thrombocytopenia, unspecified ([facility]) Start: 03-25-2024 Telephone encounter Tere Painter MD Work Phone: [facility] Comment on above: Patient Question Start: 03-19-2024 End: 03-19-2024 Patient encounter procedure Yovana Stewart EDGER HAND.OFFAL ICER POULTRY Work Phone: [facility] Comment on above: Recurrent UTI (urina ry tract infection) (Primary Dx); Urinary problem; Encounter for removal of sutures; Cellulitis of skin; Visit for suture removal Start: 03-19-2024 End: 03-19-2024 ambulatory AURE CARLTON Facility:[facility] Start: 03-19-2024 End: 03-19-2024 Telemedicine consultation with patient Aldo Burgos VERNA.JERRY Work Phone: Telemedicine Comment on above: Treatment not availa ble (Primary Dx) Start: 03-19-2024 End: 03-19-2024 ambulatory AURE CARLTON Facility:[facility] Start: 03-19-2024 End: 03-19-2024 Telemedicine consultation with patient Franky Leavitt PA-C Work Phone: Telemedicine Comment on above: Treatment not availa ble (Primary Dx) Start: 03-04-2024 End: 03-04-2024 Patient encounter procedure Ana Gan APRN.OFFAL ICER POULTRY Work Phone: [facility] Comment on above: Foot laceration, rig ht, subsequent encounter (Primary Dx) Start: 03-04-2024 Telephone encounter Gretchen Andersen DO Work Phone: [facility] Comment on above: Patient Update (Pain in her foot since getting stitches yesterday /) Start: 03-03-2024 End: 03-03-2024 Subsequent hospital visit by physician Ryan [facility] Work Phone: [facility] TREVORARELI Comment on above: Laceration of dorsum of right foot [S91.311A] Start: 03-03-2024 End: 03-03-2024 Patient encounter procedure Yovana Stewart EDGER HAND.OFFAL ICER POULTRY [facility] Comment on above: Laceration of dorsum of right foot (Primary Dx) Start: 01-30-2024 Refill Aure L Nodiana EDGER HAND.OFFAL ICER POULTRY Work Phone: [facility] Comment on above: Refill Request Start: 01-24-2024 Telephone encounter Guicho Gallagherum T [facility] Comment on above: Insurance Authorizat ion (Chiro 2023) Start: 01-07-2024 Refill Aure L Nodiana EDGER HAND.OFFAL ICER POULTRY Work Phone: [facility] Comment on above: Refill Request Start: 12-30-2023 Refill Aure L Nodiana EDGER HAND.OFFAL ICER POULTRY Work Phone: [facility] Comment on above: Refill Request Start: 12-19-2023 Telephone encounter Aure L No ling EDGER HAND.OFFAL ICER POULTRY Work Phone: [facility] Start: 11-26-2023 End: 11-26-2023 Emergency department patient visit [facility]Emergency Department Work Phone: Start: 11-17-2023 End: 11-17-2023 ambulatory Elodia Avilesfield EDGER HAND.OFFAL ICER POULTRY Work Phone: Telemedicine Comment on above: URI, acute (Primary Dx) Start: 11-17-2023 End: 11-17-2023 Telemedicine consultation with patient Elodia Espinal EDGER HAND.OFFAL ICER POULTRY Work Phone: [facility] Start: 11-02-2023 End: 11-02-2023 Subsequent hospital visit by physician Ryan Huang Work Phone: [facility] NAZARIO Comment on above: RT FOOT PAIN FROM FA LL / DIZZINESS Start: 11-02-2023 End: 11-02-2023 Patient encounter procedure Son Kristie Reyes Work Phone: [facility] Comment on above: URI, acute (Primary Dx); Foot pain, right Start: 11-01-2023 Telephone encounter Chantale Sheth LMT [facility] Comment on above: Insurance Authorizat ion (CHIRO 2022) Appointment Start: 10-28-2023 End: 10-28-2023 ambulatory [facility] Work Phone: Start: 10-28-2023 End: 10-28-2023 Patient encounter procedure [facility]-Ultrasound, [facility] Work Phone: Start: 10-22-2023 Refill Aure Carlton EDGER HAND.OFFAL ICER POULTRY Work Phone: [facility] Primary [facility] [place] Comment on above: Refill Request (tiza nidine) Start: 10-01-2023 Telephone encounter Aundrea Shultz EDGER HAND.OFFAL ICER POULTRY Work Phone: [facility] Comment on above: Appointment (New pat ient - Chiro) Start: 09-26-2023 Telephone encounter Aundrea Shultz EDGER HAND.OFFAL ICER POULTRY Work Phone: [facility] Comment on above: future appointments Start: 09-25-2023 End: 09-25-2023 ambulatory AUNDREA SHULTZ Facility:[facility] Start: 09-25-2023 End: 09-25-2023 ambulatory Aundrea Shultz EDGER HAND.OFFAL ICER POULTRY Work Phone: [facility] Comment on above: Alcoholic peripheral neuropathy (HCC) (Primary Dx); Pain in soft tissues of limb Start: 09-25-2023 End: 09-25-2023 Telemedicine consultation with patient Aundrea Lanzakendrick DELATORREOFFAL ICER POULTRY Work Phone: [facility] Start: 09-11-2023 End: 09-11-2023 Emergency department patient visit ANGELIC ROTH [facility] Start: 09-08-2023 End: 09-08-2023 Subsequent hospital visit by physician Ryan Emmanuel Work Phone: [facility] Comment on above: Pain of right foot [ M79.671] Start: 09-08-2023 End: 09-08-2023 Office outpatient visit 15 minutes Cr Mace MD Work Phone: [facility] [place] Comment on above: Pain of right foot ( Primary Dx); Sprain of right foot, initial encounter Start: 09-06-2023 End: 09-06-2023 Office outpatient visit 25 minutes Aure Carlton APRN.CNP Work Phone: [facility] Comment on above: Insomnia, unspecifie d type (Primary Dx); Anxiety; Hallucinations; Peripheral nerve disease; Screening for colon cancer Start: 09-04-2023 Telephone encounter Aure mendez APRN.CNP Work Phone: [facility] Comment on above: Returning Patient's Call (Patient called requesting some medications ) Start: 08-16-2023 Telephone encounter Aure mendez APRN.CNP Work Phone: [facility] Comment on above: Patient Question; Re fill Request Start: 07-07-2023 End: 07-07-2023 Emergency department patient visit No Primary Care Physician [facility]Emergency Department Work Phone: Start: 07-05-2023 End: 07-05-2023 ambulatory No Primary Care Physician [facility] Work Phone: Start: 07-05-2023 End: 07-05-2023 Patient encounter procedure No Primary Care Physician [facility] [place] Work Phone: Start: 06-07-2023 End: 06-07-2023 Patient encounter procedure No Primary Care Physician [facility] Work Phone: Start: 05-30-2023 End: 05-30-2023 Emergency department patient visit VEDA ALVARADO Facility:A Start: 05-26-2023 End: 05-26-2023 Patient encounter procedure [facility] Work Phone: [facility] Comment on above: Anxiety with depress ion (Primary Dx); Bronchitis; Neuropathy Start: 05-21-2023 End: 05-21-2023 Subsequent [facility] Work Phone: [facility] Comment on above: Contusion of right f oot, initial encounter [S90.31XA] Start: 05-08-2023 Telephone encounter Cr alcala MD Work Phone: [facility] Comment on above: Results Start: 05-07-2023 End: 05-07-2023 Office outpatient visit 25 minutes Carol Centeno MD Work Phone: [facility] Comment on above: Dysuria (Primary Dx) ; Acute cystitis without hematuria; Pruritus Start: 04-23-2023 End: 04-23-2023 Emergency department patient visit ROBERT PEARSON MD Facility:A Start: 04-18-2023 ambulatory ROBERT PEARSON MD Facili ty:A Start: 03-14-2023 End: 03-14-2023 Patient encounter procedure Tere Painter MD Work Phone: [facility] Comment on above: Alcoholic peripheral neuropathy (HCC) (Primary Dx) Start: 03-11-2023 End: 03-11-2023 ambulatory ROBERT [facility] Work Phone: Start: 03-11-2023 End: 03-11-2023 [facility] Start: 03-07-2023 ambulatory ROBERT HOUSER Facility:A Start: 03-07-2023 End: 03-08-2023 ambulatory ROBERT PEARSON MD Facility:A Start: 03-05-2023 End: 03-05-2023 Patient encounter procedure ROBERT LILI [facility] Start: 03-01-2023 End: 03-01-2023 [facility] Start: 02-12-2023 End: 02-12-2023 ambulatory [facility] Work Phone: Start: 02-12-2023 End: 02-12-2023 Patient encounter procedure [facility]Labor[facility] Start: 02-10-2023 End: 02-10-2023 Office outpatient visit 15 minutes Cr Mace MD Work Phone: [facility] Comment on above: Dysuria (Primary Dx) ; Acute cystitis with hematuria Start: 01-06-2023 End: 01-06-2023 Emergency department patient visit ROBERT PEARSON MD Facility:A Start: 01-06-2023 End: 01-06-2023 Patient encounter procedure Gretchen Andersen DO Work Phone: [facility] Comment on above: Contusion of rib on left side, subsequent encounter (Primary Dx); Injury of spleen, initial encounter Start: 12-31-2022 End: 12-31-2022 [facility] Comment on above: Rib contusion, left, initial encounter [S20.212A] Start: 12-31-2022 End: 12-31-2022 Patient encounter procedure Ash Duke PA-C Work Phone: [facility] Comment on above: Rib contusion, left, initial encounter (Primary Dx); Recurrent UTI (urinary tract infection) Start: 12-27-2022 End: 12-27-2022 Patient encounter procedure Tere Painter MD Work Phone: [facility] Comment on above: Alcoholic peripheral neuropathy (HCC) (Primary Dx) Start: 09-24-2022 End: 09-24-2022 Emergency department patient visit [facility] Start: 09-12-2022 End: 09-12-2022 Patient encounter procedure [facility] Start: 09-02-2022 End: 09-02-2022 Emergency department patient visit [facility]Emergency [facility] Start: 08-15-2022 ambulatory ROBERT PEARSON MD Facili ty:A Start: 08-12-2022 End: 08-12-2022 Emergency department patient visit [facility]gency [facility] Start: 08-07-2022 End: 08-07-2022 Emergency department patient visit [facility]gency [facility] Start: 07-17-2022 Non-patient / [facility]-visit [facility] Start: 07-16-2022 Non-patient / Non-visit [facility] Start: 07-15-2022 Non-patient / Non-visit [facility] Start: 07-14-2022 Non-patient / Non-visit [facility] Start: 07-13-2022 End: 07-17-2022 Evaluation and management of inpatient Out [facility]-Medical Surgical 3 Start: 06-17-2022 End: 06-17-2022 Emergency department patient visit Out [facility]Emergency Department Start: 06-14-2022 Telephone encounter Mena Ramirez RN Transplant Center Comment on above: Referral - Liver Txp (unable to reach) Referral - Liver Txp (referral closed) Start: 06-12-2022 Telephone encounter Liver Txp Coordinator Work Phone: [facility] Center Comment on above: Follow Up Start: 06-07-2022 Telephone encounter Mena aRmirez RN Transplant Center Comment on above: Referral - Liver Txp (f/u on scheduling) Start: 06-04-2022 End: 06-04-2022 Patient encounter procedure Out [facility] Gastro[facility] Start: 05-30-2022 Telephone encounter Mena Ramirez vp scientific Center Comment on above: Referral - Liver Txp (scheduling-LM) Start: 04-05-2022 Non-patient / Non-visit Out [facility] Start: 04-05-2022 End: 04-05-2022 Admission to same day surgery center Out [facility]-Endoscopy Start: 03-23-2022 End: 03-23-2022 Patient encounter procedure Out [facility]-Laboratory Start: 03-23-2022 End: 03-23-2022 Patient encounter procedure Out [facility] Gastroenter[facility] Start: 03-05-2022 End: 03-05-2022 Patient encounter procedure Out [facility]-Cat Scan, [facility] Start: 01-26-2022 End: 01-26-2022 Patient encounter procedure Out [facility]-Laboratory Start: 01-26-2022 End: 01-26-2022 Patient encounter procedure Out [facility] Gastro[facility] Procedures Date Procedure Procedure Detail Performing Clinician Start: 03-13-2025 Lipid 1996 panel - Serum or Plasma Aure Noling MALKA Work Phone: Start: 02-07-2025 Radex shoulder complete minimum 2 views Nicolette Villagomez APRN.CNP Work Phone: Start: 12-24-2024 Radionuclide study of abdomen AURE KADEEM NG EXPERIENTIAL THERAPIST-C Work Phone: Start: 12-17-2024 Ultrasonography of abdomen AURE NOLING EXPERIENTIAL THERAPIST-C Work Phone: Start: 10-23-2024 Measurement of occult blood in stool specimen using immunoassay AURE NOLING EXPERIENTIAL THERAPIST-C Work Phone: Start: 10-23-2024 Computed tomography of abdomen and pelvis with intravenous contrast AURE NOLING EXPERIENTIAL THERAPIST-C Work Phone: Start: 10-10-2024 Lipid 1996 panel - Serum or Plasma Aure Noling OFFAL ICER POULTRY Work Phone: Start: 08-08-2024 [facility] COMP METAB 2000 PNL MINAL Juno pineda MD Work Phone: Start: 08-08-2024 [facility] CRP SERPL-МАРИНА Jensen MD Work Phone: Start: 08-08-2024 [facility] VIT B12 MINAL-МАРИНА Jensen MD Work Phone: Start: 07-08-2024 Urnls dip stick/tablet rgnt auto w/o microscopy Lisa Sierra DO Work Phone: Start: 04-28-2024 Tameka Scott MD Work Phone: Start: 03-24-2024 Lipid 1996 panel - Serum or Plasma Cl Painter MD Work Phone: Start: 03-19-2024 Urnls dip stick/tablet rgnt auto w/o microscopy Yovana Stewart EDGER HAND.OFFAL ICER POULTRY Work Phone: Start: 03-03-2024 Radex foot complete minimum 3 views Yovana Stewart EDGER HAND.OFFAL ICER POULTRY Work Phone: Start: 10-28-2023 Transvaginal echography Start: 09-08-2023 Radex foot complete minimum 3 views Pamela Mace MD Work Phone: Start: 05-21-2023 Radex foot complete minimum 3 views Gretchen Andersen DO Work Phone: Start: 05-09-2023 Lipid 1996 panel - Serum or Plasma Aure Carlton EDGER HAND.OFFAL ICER POULTRY Work Phone: Start: 05-07-2023 Urnls dip stick/tablet rgnt auto w/o microscopy Carol Centeno MD Work Phone: Start: 03-11-2023 End: 03-11-2023 Screening mammography ROBERT PEARSON Start: 02-10-2023 Urnls dip stick/tablet rgnt auto w/o microscopy Cr Mace MD Work Phone: Start: 12-31-2022 Radex ribs uni w/posteroant ch minimum 3 views Ash Duke PA-C Work Phone: Start: 12-31-2022 Urnls dip stick/tablet rgnt auto w/o microscopy Ash Duke PA-C Work Phone: Start: 09-02-2022 CT angiography of head and neck ROBERT MONET Start: 07-13-2022 Plain chest X-ray Out [facility] Doctor Start: 06-17-2022 X-ray of both feet Out [facility] Doctor Start: 04-05-2022 Esophagogastroduodenoscopy [facility] Start: 03-05-2022 Biopsy/Inj or Needle Placement Out [facility] Doctor Bacteria identified in Blood by Culture ROBERT PEARSON Viral antigen assay ROBERT MONET Plan of Treatment Date Care Activity Detail Author Start: 2045 RSV Immunization for Adults (1 - 1-dose 75+ series) RSV Immunization for Adults (1 - 1-dose 75+ series) [facility] Start: 04-28-2034 Screening for malignant neoplasm of colon [facility] Start: 05-30-2033 DTaP/Tdap/Td Vaccines (2 - Td or Tdap) DTaP/Tdap/Td Vaccines (2 - Td or Tdap) [facility] Start: 05-30-2033 Urine microalbumin profile DTaP,Tdap,Td Vaccine (2 - T d or Tdap) [facility] Start: 03-13-2030 Lipid panel Lipid Screening [facility] Start: 2030 RSV Immunization aged 60 or older (1 - 1-dose 60+ series) RSV Immunization aged 60 or older (1 - 1-dose 60+ series) [facility] Start: 10-10-2029 Lipid panel Lipid Screening [facility] Start: 03-24-2029 Lipid panel Lipid Screening [facility] Start: 05-09-2028 Lipid 1996 panel - Serum or Plasma Lipid Screening [facility] Start: 05-09-2028 Lipid panel Lipid Screening [facility] Start: 05-09-2028 LIPID SCREEN LIPID SCREEN [facility] Start: 03-13-2028 Diabetes Screening Diabetes Screening [facility] Start: 03-01-2028 HPV Testing HPV Testing [facility] Start: 03-01-2028 Pap Testing Pap Testing [facility] Start: 03-01-2028 Screening for malignant neoplasm of cervix [facility] Start: 01-01-2028 Diabetes Screening Diabetes Screening [facility] Start: 10-10-2027 Diabetes mellitus screening Diabetes Screening [facility] Start: 10-10-2027 Diabetes Screening Diabetes Screening [facility] Start: 08-08-2027 Diabetes Screening Diabetes Screening [facility] Start: 03-24-2027 Diabetes Screening Diabetes Screening [facility] Start: 02-01-2027 LIPID SCREEN LIPID SCREEN [facility] Start: 12-17-2026 Diabetes Screening Diabetes Screening [facility] Start: 05-09-2026 Diabetes mellitus screening Diabetes Screening [facility] Start: 05-09-2026 DIABETES SCREEN DIABETES SCREEN [facility] Start: 05-09-2026 Diabetes Screening Diabetes Screening [facility] Start: 03-01-2026 Screening for malignant neoplasm of cervix Cervical Cancer Screening [facility] Start: 02-16-2026 Pneumococcal Vaccine: 50+ (1 of 2 - PCV) Pneumococcal Vaccine: 50+ (1 of 2 - PCV) [facility] Comment on above: Postponed from 1989 (Declined at t his time) Start: 01-27-2026 Screening for malignant neoplasm of breast Mammogram Screening [facility] Start: 10-28-2025 Covid-19 Vaccine ( season) Covid-19 Vaccine ( season) [facility] Comment on above: Postponed from 07/19/2024 (Declined at t his time) Start: 10-28-2025 Hepatitis A Vaccine (1 of 2 - Risk 2-dose series) Hepatitis A Vaccine (1 of 2 - Risk 2-dose series) [facility] Comment on above: Postponed from 1989 (Declined at t his time) Start: 10-28-2025 Hepatitis B Vaccine (1 of 3 - 19+ 3-dose series) Hepatitis B Vaccine (1 of 3 - 19+ 3-dose series) [facility] Comment on above: Postponed from 1989 (Declined at t his time) Start: 08-18-2025 End: 08-18-2025 Patient encounter procedure 08/18/2025 8:40 AM EDT Office Visit [facility] [place] [address] [facility] [address] [place] [phone] Aure Carlton, EDGER HAND.OFFAL ICER POULTRY [address] [facility] [address] [place] [address] 6 mo f/u [facility] [place] Comment on above: 6 mo f/u Start: 07-19-2025 Influenza vaccination Influenza Vaccine (Season Ended) [employer] Start: 05-29-2025 End: 03-30-2026 CBC W Auto Differential panel - Blood COMPLETE BLOOD COUNT AND DIFFERENTIAL Lab Routine Alcoholic cirrhosis of liver without ascites (HCC) Thrombocytopenia, unspecified Expected: 05/29/2025, Expires: 03/30/2026 [facility] Comment on above: Expected: 05/29/2025, Expires: Start: 05-29-2025 End: 03-30-2026 Comprehensive metabolic 2000 panel - Serum or Plasma COMPREHENSIVE METABOLIC PANEL Lab Routine Hyperlipidemia, unspecified hyperlipidemia type Alcoholic cirrhosis of liver without ascites (HCC) Prediabetes Expected: 05/29/2025, Expires: 03/30/2026 [facility] Work Phone: Comment on above: Expected: 05/29/2025, Expires: Start: 05-29-2025 End: 03-30-2026 Hemoglobin A1c in Blood HEMOGLOBIN A1C Lab Routine Prediabetes Expected: 05/29/2025, Expires: 03/30/2026 [facility] Comment on above: Expected: 05/29/2025, Expires: Start: 05-29-2025 End: 03-30-2026 Lipid 1996 panel - Serum or Plasma LIPID PANEL, FASTING Lab Routine Hyperlipidemia, unspecified hyperlipidemia type Expected: 05/29/2025, Expires: 03/30/2026 [facility] Comment on above: Expected: 05/29/2025, Expires: Start: 05-19-2025 End: 05-19-2025 Patient encounter procedure 05/19/2025 1:00 PM EDT Office Visit Pulmonary [address] [facility] [address] [place] [address] [place] MD [address] [place] [address] Subacute cough [R05.2] Pulmonary Comment on above: Subacute cough [R05.2] Start: 05-17-2025 Influenza vaccination Influenza Vaccine (#1) [facility] Comment on above: Postponed from 07/19/2024 (Declined at t his time) Start: 05-11-2025 End: 05-11-2025 Patient encounter procedure 05/11/2025 2:00 PM EDT Office Visit [facility] [place] [address] [facility] [facility] [address] [place] [address] Aure Carlton APRN.OFFAL ICER POULTRY [address] [place] [phone] Seen at [facility] was told has a lot of glucose in urine [facility] Comment on above: Seen at [facility] was told has a lot of glucose in urine Start: 04-28-2025 Screening for malignant neoplasm of colon [facility] Start: 02-16-2025 End: 02-16-2026 25-hydroxyvitamin D3 [Mass/volume] in Serum or Plasma VITAMIN D 25 HYDROXY Lab Routine Vitamin D deficiency, unspecified Expected: 02/16/2025, Expires: 02/16/2026 [facility] Comment on above: Expected: 02/16/2025, Expires: Start: 02-16-2025 End: 02-16-2026 CBC panel - Blood by Automated count COMPLETE BLOOD COUNT Lab Routine Hyperlipidemia, unspecified hyperlipidemia type Expected: 02/16/2025, Expires: 02/16/2026 [facility] Comment on above: Expected: 02/16/2025, Expires: Start: 02-16-2025 End: 02-16-2026 Comprehensive metabolic 2000 panel - Serum or Plasma COMPREHENSIVE METABOLIC PANEL Lab Routine Hyperlipidemia, unspecified hyperlipidemia type Expected: 02/16/2025, Expires: 02/16/2026 [facility] Work Phone: Comment on above: Expected: 02/16/2025, Expires: Start: 02-16-2025 End: 02-16-2026 Ferritin [Mass/volume] in Serum or Plasma FERRITIN Lab Routine Pancytopenia (HCC) Expected: 02/16/2025, Expires: 02/16/2026 [facility] Comment on above: Expected: 02/16/2025, Expires: Start: 02-16-2025 End: 02-16-2026 Hemoglobin A1c in Blood HEMOGLOBIN A1C Lab Routine Prediabetes Expected: 02/16/2025, Expires: 02/16/2026 [facility] Comment on above: Expected: 02/16/2025, Expires: Start: 02-16-2025 End: 02-16-2026 Iron and Iron binding capacity panel - Serum or Plasma IRON AND TIBC Lab Routine Pancytopenia (HCC) Expected: 02/16/2025, Expires: 02/16/2026 [facility] Comment on above: Expected: 02/16/2025, Expires: Start: 02-16-2025 End: 02-16-2026 Lipid 1996 panel - Serum or Plasma LIPID PANEL, FASTING Lab Routine Hyperlipidemia, unspecified hyperlipidemia type Expected: 02/16/2025, Expires: 02/16/2026 [facility] Comment on above: Expected: 02/16/2025, Expires: Start: 02-16-2025 End: 02-16-2025 Patient encounter procedure 02/16/2025 8:40 AM EDT Office Visit [facility] [address] [place] [phone] Aure Carlton APRN.OFFAL ICER POULTRY [address] [place] [phone] 6 - 12 month follow up [facility] Comment on above: 6 - 12 month follow up Start: 02-08-2025 [facility] Start: 02-01-2025 DIABETES SCREEN DIABETES SCREEN [facility] Start: 01-02-2025 End: 04-03-2025 PT panel - Platelet poor plasma by Coagulation assay PROTHROMBIN TIME Lab Routine Hepatic encephalopathy (HCC) Expected: 01/02/2025, Expires: 04/03/2025 [facility] Work Phone: Comment on above: Expected: 01/02/2025, Expires: Start: 12-15-2024 End: 12-15-2024 Patient encounter procedure 12/15/2024 8:00 AM EST Office Visit [facility] [address] [place] [address] Aure Carlton APRN.OFFAL ICER POULTRY [address] [place] [address] 6 mo f/u [facility] Comment on above: 6 mo f/u Start: 12-07-2024 US Gallbladder [facility] Start: 12-07-2024 [facility] Start: 10-31-2024 Covid-19 Vaccine (#1) Covid-19 Vaccine (#1) [facility] Comment on above: Postponed from 1970 (Declined at t his time) Start: 10-31-2024 Covid-19 Vaccine () Covid-19 Vaccine () [facility] Comment on above: Postponed from 07/19/2023 (Declined at t his time) Start: 10-25-2024 Patient discharge [facility] Start: 10-23-2024 Application of intermittent pneumatic compression device [facility] Start: 10-23-2024 Following clinical pathway protocol [facility] Start: 10-23-2024 Assessment of risk of venous thromboembolism [facility] Start: 10-23-2024 Inhalation therapy procedure [facility] Start: 10-23-2024 Insertion of catheter into peripheral vein [facility] Start: 10-23-2024 Measuring intake and output [facility] Start: 10-23-2024 Providing care according to standard [facility] Start: 10-23-2024 Provision of activity privileges [facility] Start: 10-23-2024 Referral to gastroenterology service [facility] Start: 10-23-2024 [facility] Start: 10-23-2024 Admission procedure [facility] Start: 10-23-2024 Administration of blood product [facility] Start: 10-12-2024 End: 10-12-2024 Patient encounter procedure 10/12/2024 2:20 PM [facility] [address] [place] [phone] Aure Carlton APRN.OFFAL ICER POULTRY [address] [place] [phone] discuss lab work [facility] [address] Comment on above: discuss lab work Start: 10-05-2024 End: 10-05-2024 Patient encounter procedure [facility] [address] Comment on above: AWX Start: 09-30-2024 End: 12-30-2024 25-hydroxyvitamin D3 [Mass/volume] in Serum or Plasma VITAMIN D 25 HYDROXY Lab Routine Vitamin D deficiency, unspecified Expected: 09/30/2024, Expires: 12/30/2024 [facility] Comment on above: Expected: 09/30/2024, Expires: Start: 09-30-2024 End: 12-30-2024 CBC panel - Blood by Automated count COMPLETE BLOOD COUNT Lab Routine Thrombocytopenia, unspecified (HCC) Expected: 09/30/2024, Expires: 12/30/2024 [facility] Comment on above: Expected: 09/30/2024, Expires: Start: 09-30-2024 End: 12-30-2024 Comprehensive metabolic 2000 panel - Serum or Plasma COMPREHENSIVE METABOLIC PANEL Lab Routine Hyperlipidemia, unspecified hyperlipidemia type Expected: 09/30/2024, Expires: 12/30/2024 [facility] Comment on above: Expected: 09/30/2024, Expires: Start: 09-30-2024 End: 12-30-2024 Hemoglobin A1c in Blood HEMOGLOBIN A1C Lab Routine Impaired fasting glucose Expected: 09/30/2024, Expires: 12/30/2024 [facility] Work Phone: Comment on above: Expected: 09/30/2024, Expires: Start: 09-30-2024 End: 12-30-2024 Lipid 1996 panel - Serum or Plasma LIPID PANEL BASIC Lab Routine Hyperlipidemia, unspecified hyperlipidemia type Expected: 09/30/2024, Expires: 12/30/2024 [facility] Comment on above: Expected: 09/30/2024, Expires: Start: 09-18-2024 End: 09-18-2024 ambulatory [facility] Comment on above: POLYNEUROPATHY LEG WEAKNESS Start: 08-12-2024 End: 08-12-2024 Patient encounter procedure 08/12/2024 10:00 AM EDT Procedure Visit [facility] [address] [address] [facility] Start: 08-06-2024 End: 08-06-2024 ambulatory 08/06/2024 4:15 PM EDT OT/PT/Speech Visit [facility] [address] [place] [address] [place] [address] Clark Newell, PT, DPT [address] [place] [address] LEG WEAKNESS [facility] Comment on above: LEG WEAKNESS Start: 07-21-2024 End: 07-21-2024 ambulatory [facility] Comment on above: Polyneuropathy, unspecified [G62.9] Leg weakness, bilate ral [R29.898] Start: 07-19-2024 Covid-19 Vaccine ( season) Covid-19 Vaccine ( season) [facility] Start: 07-19-2024 Covid-19 Vaccine ( season) Covid-19 Vaccine () [facility] Start: 07-19-2024 Influenza vaccination [facility] Start: 07-06-2024 End: 07-20-2024 COVID & INFLUENZA A/B & RSV NAAT, EXPEDITED [facility] Work Phone: Comment on above: Expected: 07/06/2024, Expires: Start: 06-18-2024 End: 06-18-2024 Patient encounter procedure 06/18/2024 8:00 AM EDT Office Visit [facility] [address] [place] [address] James Albright DC [address] [place] [address] Full tx [facility] Comment on above: Full tx Start: 06-11-2024 End: 06-11-2024 Patient encounter procedure 06/11/2024 8:00 AM EDT [facility] [address] [place] [address] Tere Painter MD [address] [place], [place] [address] follow up discuss disability [facility] Comment on above: follow up discuss disability Start: 06-09-2024 End: 06-09-2024 Patient encounter procedure 06/09/2024 8:00 AM EDT Office Visit [facility] [address] [place] [address] James Albright DC [address] [place] [address] full tx [facility] Comment on above: full tx Start: 06-04-2024 End: 06-04-2024 Patient encounter procedure 06/04/2024 8:00 AM EDT Office Visit [facility] [address] [place] [address] James Albright DC [address] [place] [address] Full tx [facility] Comment on above: Full tx Start: 05-28-2024 End: 05-28-2024 Patient encounter procedure 05/28/2024 8:30 AM EDT Office Visit [facility] [address] [place] [address] James Albright, BRIAN [address] [facility] [address] [place] [address] Full tx [facility] Comment on above: Full tx Start: 05-17-2024 Influenza vaccination Influenza Vaccine (#1) [facility] Comment on above: Postponed from 07/19/2023 (Declined at t his time) Start: 04-28-2024 End: 04-28-2024 Colonoscopy flx dx w/collj spec when pfrmd COLONOSCOPY Esophageal varices without bleeding (HCC) Unspecified cirrhosis of liver (HCC) 04/28/2024 12:24 PM EDT [facility] Start: 04-28-2024 End: 04-28-2024 Esophagogastroduodenoscopy transoral diagnostic ESOPHAGOGASTRODUODENOSCOPY DIAGNOSTIC Esophageal varices without bleeding (HCC) Unspecified cirrhosis of liver (HCC) 04/28/2024 12:24 PM EDT [facility] Start: 03-30-2024 End: 03-30-2024 Patient encounter procedure 03/30/2024 8:20 AM EDT Office Visit [facility] [address] [place] [phone] Aure Carlton, EDGER HAND.OFFAL ICER POULTRY [address] [place] [address] 6 month follow up [facility] Comment on above: 6 month follow up Start: 03-26-2024 End: 03-26-2024 Patient encounter procedure 03/26/2024 9:45 AM EDT Office Visit [facility] [address] [place] [address] Tere Painter MD [address] [place] [address] 3 month follow up with physician [facility] Comment on above: 3 month follow up with physician Start: 03-11-2024 Mammography Mammogram Screening [facility] Start: 03-11-2024 Screening for malignant neoplasm of breast [facility] Start: 11-26-2023 [facility] Start: 09-08-2023 End: 10-07-2024 XR FOOT GENERAL 3V AP/LAT/OBL RIGHT [facility] Work Phone: Comment on above: Expected: 09/08/2023, Expires: 4 Start: 07-19-2023 COVID-19 Vaccine ( season) COVID-19 Vaccine () [employer] Start: 07-19-2023 Influenza vaccination [facility] Start: 05-07-2023 End: 07-07-2023 Bacteria identified in Urine by Culture [facility] Work Phone: Comment on above: Expected: 05/07/2023, Expires: 3 Start: 05-03-2023 Shingrix Vaccine (2 of 2) Shingrix Vaccine (2 of 2) [facility] Start: 09-02-2022 Oxygen therapy [facility] Work Phone: Start: 09-02-2022 [facility] Work Phone: Start: 07-19-2022 Influenza vaccination INFLUENZA (#1) [facility] Start: 07-17-2022 Patient discharge [facility] Work Phone: Start: 07-16-2022 [facility] Work Phone: Start: 07-16-2022 Application of elastic bandage [facility] Work Phone: Start: 07-16-2022 [facility] Work Phone: Start: 07-14-2022 Application of intermittent pneumatic compression device [facility] Work Phone: Start: 07-14-2022 Following clinical pathway protocol [facility] Work Phone: Start: 07-14-2022 Assessment of risk of venous thromboembolism [facility] Work Phone: Start: 07-14-2022 Elevation of affected extremity [facility] Work Phone: Start: 07-14-2022 Incentive spirometry [facility] Work Phone: Start: 07-14-2022 Inhalation therapy procedure [facility] Work Phone: Start: 07-14-2022 Insertion of catheter into peripheral vein [facility] Work Phone: Start: 07-14-2022 Introduction of urinary catheter [facility] Work Phone: Start: 07-14-2022 Measuring intake and output [facility] Work Phone: Start: 07-14-2022 Methicillin resistant Staphylococcus aureus screening test [facility] Work Phone: Start: 07-14-2022 Providing care according to standard [facility] Work Phone: Start: 07-14-2022 Provision of activity privileges [facility] Work Phone: Start: 07-14-2022 Referral to service [facility] Work Phone: Start: 07-14-2022 [facility] Work Phone: Start: 07-13-2022 Verification routine [facility] Work Phone: Start: 07-13-2022 Admission procedure [facility] Work Phone: Start: 07-13-2022 Blood culture [facility] Work Phone: Start: 07-13-2022 End: 07-14-2022 [facility] Work Phone: Start: 04-05-2022 Egd transoral biopsy single/multiple EGD BIOPSY SINGLE/MULTIPLE [facility] Work Phone: Start: 04-05-2022 Patient discharge [facility] Work Phone: Start: 03-05-2022 Biopsy liver needle percutaneous NEEDLE BIOPSY OF LIVER [facility] Work Phone: Start: 03-05-2022 Catheterization of vein [facility] Work Phone: Start: 03-05-2022 Oxygen therapy [facility] Work Phone: Start: 03-05-2022 Patient discharge [facility] Work Phone: Start: 03-05-2022 Vital signs measurements [facility] Work Phone: Start: 03-05-2022 Following clinical pathway protocol [facility] Work Phone: Start: 2015 COLOGUARD (FIT-DNA) COLOGUARD (FIT-DNA) [facility] Start: 2015 Colonoscopy COLONOSCOPY [facility] Start: 2015 COLORECTAL CANCER SCREENING COLORECTAL CANCER SCREENING [facility] Start: [address] COLONOGRAPHY [facility] Start: 2015 FECAL OCCULT BLOOD FECAL OCCULT BLOOD [facility] Start: 2015 Screening for malignant neoplasm of colon [facility] Start: 2015 SIGMOIDOSCOPY SIGMOIDOSCOPY [facility] Start: 02-27-2012 PAP TESTING PAP TESTING [facility] Start: 2010 Mammography MAMMOGRAM [facility] Start: 2010 Screening for malignant neoplasm of breast Mammogram [facility] Start: 02-27-2000 HPV TESTING HPV TESTING [facility] Start: 02-27-2000 Screening for malignant neoplasm of cervix [facility] Start: 1991 PAP TESTING PAP TESTING [facility] Start: 1991 Screening for malignant neoplasm of cervix Pap Smear [facility] Start: 1989 HEPATITIS A (1 of 2 - Risk 2-dose series) HEPATITIS A (1 of 2 - Risk 2-dose series) [facility] Start: 1989 Hepatitis A Vaccine (1 of 2 - Risk 2-dose series) Hepatitis A Vaccine (1 of 2 - Risk 2-dose series) [facility] Start: 1989 Hepatitis A Vaccines (1 of 2 - Risk 2-dose series) Hepatitis A Vaccines (1 of 2 - Risk 2-dose series) [facility] Start: 1989 HEPATITIS B (1 of 3 - Risk 3-dose series) HEPATITIS B (1 of 3 - Risk 3-dose series) [facility] Start: 1989 Hepatitis B Vaccine (1 of 3 - 19+ 3-dose series) Hepatitis B Vaccine (1 of 3 - 19+ 3-dose series) [facility] Start: 1989 Hepatitis B Vaccines (1 of 3 - 19+ 3-dose series) Hepatitis B Vaccines (1 of 3 - 19+ 3-dose series) [facility] Start: 1989 Pneumococcal Vaccine: 50+ (1 of 2 - PCV) Pneumococcal Vaccine: 50+ (1 of 2 - PCV) [facility] Start: 1989 Pneumococcal Vaccine: 50+ Years (1 of 2 - PCV) Pneumococcal Vaccine: 50+ Years (1 of 2 - PCV) [facility] Start: 1989 SHINGRIX VACCINE (1 of 2) SHINGRIX VACCINE (1 of 2) [facility] Start: 1989 Urine microalbumin profile DTAP,TDAP,TD (1 - Tdap) [facility] Start: 02-27-1988 HEPATITIS C SCREENING HEPATITIS C SCREENING [facility] Start: 02-27-1988 Hepatitis C screening Hepatitis C Screening [facility] Start: 1982 Depression Monitoring Depression Monitoring [facility] Start: 1982 Depression Screening Depression Screening [facility] Start: 02-27-1976 PNEUMOCOCCAL (1 - PCV) PNEUMOCOCCAL (1 - PCV) [facility] Start: 02-27-1976 [facility] Start: 02-27-1976 Pneumococcal Vaccine: Pediatrics (0 to 5 Years) and At-Risk Patients (6 to 64 Years) (1 of 2 - PCV) Pneumococcal Vaccine: Pediatrics (0 to 5 Years) and At-Risk Patients (6 to 64 Years) (1 of 2 - PCV) [facility] Start: 1971 HEPATITIS A (1 of 2 - Risk 2-dose series) HEPATITIS A (1 of 2 - Risk 2-dose series) [facility] Start: 1971 MMR Vaccines (1 of 1 - Standard series) MMR Vaccines (1 of 1 - Standard series) [facility] Start: 1970 COVID-19 VACCINE (#1) COVID-19 VACCINE (#1) [facility] Start: 1970 HEPATITIS B (1 of 3 - 3-dose series) HEPATITIS B (1 of 3 - 3-dose series) [facility] Start: 1970 Hepatitis B Vaccine (1 of 3 - 3-dose series) Hepatitis B Vaccine (1 of 3 - 3-dose series) [facility] Start: 1970 HIV screening HIV Screening [facility] Start: 1970 Screening for malignant neoplasm of colon [facility] Bacteria identified in Blood by Culture Blood Culture [facility] Work Phone: Bacteria identified in Urine by Culture URINE CULTURE Microbiology Routine Recurrent UTI (urinary tract infection) 03/19/2024 7:46 PM EDT [facility] Work Phone: Bacteria identified in Urine by Culture URINE CULTURE Microbiology Routine Dysuria Urgency of urination 07/08/2024 11:32 AM EDT [facility] Work Phone: Bilirubin measurement, urine [facility] Work Phone: Blood culture [facility] Work Phone: COLOGUARD COLOGUARD Lab Ro utine Screening for colon cancer Ordered: 09/06/2023 [facility] Work Phone: Comment on above: Ordered: 09/06/2023 COVID & INFLUENZA A/ B & RSV NAAT, ROUTINE COVID & INFLUENZA A/B & RSV NAAT, ROUTINE Microbiology Routine URI, acute Ordered: 11/17/2023 [facility] Work Phone: Comment on above: Ordered: 11/17/2023 Hemoglobin [Presence ] in Urine [facility] Work Phone: Measurement of keton es in urine using dipstick [facility] Work Phone: Microscopic urinalysis [facility] Work Phone: Patient Education [facility] Work Phone: Patient referral [facility] Work Phone: pH of Urine [facility] Work Phone: Specific gravity of Urine [facility] Work Phone: Ther px 1/> areas ea ch 15 min neuromusc reeduca NEUROMUSCULAR REEDUCATION Procedures Routine Polyneuropathy, unspecified Neuropathy Ordered: 04/09/2024 [facility] Work Phone: Comment on above: Ordered: 04/09/2024 Tissue exam [facility] Work Phone: Comment on above: Release Upon Ordering for 1 Occurrences starting 04/28/2024 Urinalysis, blood, qualitative [facility] Work Phone: Urine dipstick for glucose [facility] Work Phone: Urine dipstick for l eukocyte esterase [facility] Work Phone: Urine dipstick for nitrite [facility] Work Phone: Urine dipstick for protein [facility] Work Phone: Urine examination [facility] Work Phone: Urine microscopy: ep ithelial cells [facility] Work Phone: Urine Microscopy: white cells [facility] Work Phone: Urobilinogen [Presen ce] in Urine [facility] Work Phone: End: 02-25-2026 XR Chest PA and Lateral XR CHEST 2V FRONTAL/LAT Radiology Routine Acute cough GARZA (dyspnea on exertion) 1 Occurrences starting 01/26/2025 until 02/25/2026 [facility] Work Phone: Comment on above: 1 Occurrences starting 01/26/2025 until 02/25/2026 XR Chest PA and Lateral XR CHEST 2V FRONTAL/LAT Radiology Routine Acute cough GARZA (dyspnea on exertion) 01/26/2025 4:45 PM EDT [facility] End: 04-02-2025 XR Foot - right AP and Lateral and oblique XR FOOT GENERAL 3V AP/LAT/OBL RIGHT Radiology Routine Laceration of dorsum of right foot 1 Occurrences starting 03/03/2024 until 04/02/2025 [facility] Work Phone: Comment on above: 1 Occurrences starting 03/03/2024 until 04/02/2025 XR Foot - right AP a nd Lateral and oblique XR FOOT GENERAL 3V AP/LAT/OBL RIGHT Radiology Routine Laceration of dorsum of right foot 03/03/2024 4:11 PM EDT [facility] Work Phone: End: 12-01-2024 XR FOOT GENERAL 3V AP/LAT/OBL RIGHT XR FOOT GENERAL 3V AP/LAT/OBL RIGHT Radiology Routine Foot pain, right 1 Occurrences starting 11/02/2023 until 12/01/2024 [facility] Work Phone: Comment on above: 1 Occurrences starting 11/02/2023 until 12/01/2024 XR FOOT GENERAL 3V A P/LAT/OBL RIGHT XR FOOT GENERAL 3V AP/LAT/OBL RIGHT Radiology Routine Foot pain, right 11/02/2023 2:15 PM EST [facility] Work Phone: [facility] Immunizations Immunization Date Immunization Notes Care Provider Fa cili 07-19-2024 zoster vaccine recombinant Aure Noling EDGER HAND.[employer] Work Phone: [facility] 08-17-2023 zoster vaccine recombinant Chantale Sheth LMT [facility] 05-30-2023 tetanus toxoid, redu nataly diphtheria toxoid, and acellular pertussis vaccine, adsorbed Aure Noling EDGER HAND.[employer] Work Phone: [facility] 03-08-2023 zoster vaccine recombinant Aure Noling EDGER HAND.[employer] Work Phone: [facility] Payers Date Payer Category Payer Unknown [id number] 2024 Self-pay [id number] 2024 Unknown [id number] 2022 Unknown [id number] 2022 Private Health Insurance [id number] 2022 Unknown [employer] PPO [id number] 2022-Present [phone] [address] [place] [address] PPO [id number] 2022 Unknown [id number]. [id number] 2022 Unknown [id number] 2005 Unknown SELF PAY INSURANCE [id number] 1E 01 [id number] 2005 Unknown [id number] 1970 Unknown [id number] .840.1.406753.3.579.2. 1970 Unknown [id number] .840.1.285550.3.579.2. 1970 Unknown [id number] 2.840.1.894749.3.579.2. 1970 Unknown [id number] .16840.1.703774.3.579.2. 1970 Unknown [id number] 2.840.1.486457.3.579.2. 1970 Unknown [id number] 2.840.1.384895.3.579.2. 627 1970 Unknown [id number] 2.840.1.588692.3.579.2. 627 1970 Unknown [id number] 2.840.1.049795.3.579.2. 627 1970 Unknown [id number] 2.0.1.321145.3.579.2. 651 Unknown [id number] Unknown [id number] Unknown [facility] [id number] Unknown [id number] .0.1.569123.3.579.2. 462 Unknown [id number] 2.840.1.551120.3.579.2. 462 Unknown [id number] 2.0.1.956814.3.579.2. 462 Unknown [id number] 2.840.1.251195.3.579.2. 462 Unknown [id number] 2.840.1.741782.3.579.2. 462 Unknown [id number] 2.840.1.012635.3.579.2. 462 Unknown [id number] 2.840.1.078235.3.579.2. 462 Unknown [id number] 2.840.1.141244.3.579.2. 462 Unknown [id number] 2.840.1.986936.3.579.2. 462 Unknown [id number] 2.840.1.592548.3.579.2. 462 Unknown [id number] 2.840.1.287591.3.579.2. 462 Social History Date Type Detail Facility Start: 03-05-2022 End: 07-07-2023 Tobacco smoking status VTIS Unknown if ever smoked [facility] Start: 1970 Sex Assigned At Female W [facility] Start: 1970 Sex Assigned At Not on file [facility] Start: 08-28-2022 End: 05-26-2023 Tobacco smoking status NHIS Never smoked tobacco [facility] Start: 08-28-2022 End: 05-26-2023 Tobacco use and exposure Smokeless tobacco non-user [facility] Start: 12-27-2022 End: 04-16-2025 Alcohol intake Ex-drinker (finding) [facility] Start: 05-26-2023 End: 07-21-2024 History of Social function [facility] Start: 05-26-2023 End: 07-21-2024 Tobacco use panel [facility] Adult Depression Screening Assessment 4 [facility] How often to you hav e a drink containing alcohol? Never [facility] (I/We) worried whether (my/our) food would run out before (I/we) got money to buy more. Never true [facility] In the past 12 months, was there a time when you were not able to pay the mortgage or rent on time? No [facility] Start: 04-28-2024 End: 04-29-2024 Alcohol intake Not Asked [facility] Start: 04-28-2024 Alcohol Comment sober x 2.[address] [facility] Start: 06-14-2024 Gender identity Identifies as female gender (finding) [facility] Start: 12-18-2023 End: 02-08-2025 Sex Female (finding) [facility] Start: 03-30-2025 Alcohol Comment Past alcohol u se - Sober since 2020 [facility] NEGATED: Highlighted rowStart: NINF History of tobacco use Passive smoker [facility] Goals Date Patient Goal Desired Activity /State Functional Status Date Assessment Result Facility 10-25-2024 Functional status Ambulates [facility] Work Phone: 07-17-2022 Functional status Ambulates [facility] Work Phone: Mental Status Date Assessment Result Facility 10-25-2024 Cognitive function Voice/Name [facility] Work Phone: 10-25-2024 Cognitive function Cooperative;Anxious [facility] Work Phone: 07-07-2023 Cognitive function Level Of Cons ciousness Awake;Alert;Appropriate;Follow s Commands [facility] Work Phone: 09-02-2022 Cognitive function Level Of Cons ciousness Awake;Alert;Appropriate;Follow s Commands [facility] Work Phone: 08-07-2022 Cognitive function Level Of Cons ciousness Awake;Alert;Appropriate;Follow s Commands [facility] Work Phone: 07-17-2022 Cognitive function Voice/Name [facility] Work Phone: 07-13-2022 Cognitive function Level Of Cons ciousness Awake;Alert;Appropriate;Follow s Commands [facility] Work Phone: 06-17-2022 Cognitive function Level Of Cons ciousness Awake;Alert;Appropriate [facility] Work Phone: 04-05-2022 Cognitive function Touch/Shaking [facility] Work Phone: 03-05-2022 Cognitive function Voice/Name [facility] Work Phone: Clinical Notes 05-30-2022 to 04-19-2025 Telephone Encounter - Sandy Valadez - 04/19/2025 11:43 AM EDTTelephone Encounter - Sandy Valadez - 04/19/2025 11:43 AM EDTTelephone Encounter - Sandy Valadez - 04/19/2025 10:32 AM EDT Note Date & Type Note Facility 04-19-2025 Telephone encounter Note Patient called back to get scheduled. I advised patient that my providers here at [facility] are out until middle of May, and [facility] is out until at least late June / July. I offered patient appointment on 04.21.2025 with Margarita, and patient states that she will possibly call back to get scheduled. AN Oshea [facility] 04-19-2025 Miscellaneous Notes Patient called back to get scheduled. I advised patient that my providers here at [facility] are out until middle of May, and [facility] is out until at least late June / July. I offered patient appointment on 04.21.2025 with Viancacristóbal, and patient states that she will possibly call back to get scheduled. AN Oshea LMOM for patient to call back to get scheduled for a new patient appointment for : Cough. AN Oshea documented in this encounter [facility] 04-19-2025 Telephone encounter Note LMOM for patient to call back to get scheduled for a new patient appointment for : Cough. AN Oshea [facility] 04-16-2025 Note HNO ID: [id number] Author: YOVANA STEWART JR, APRN.[employer] Service: ? Author Type: Nurse Practitioner Type: Progress Notes Filed: 04/16/2025 19:26 Note Text: [facility] Subjective Dominic Jimenez is a 55 year old female. Patient presents with: Cough: Congestion both over 2 months HPI Dominic is a 55-year-old female, with a history of esophageal varices, presenting with persistent phlegm and cough. Dominic reports a 2.5 month history of persistent phlegm and cough, which is worse at night. She describes the phlegm as being stuck in her throat, making it difficult to breathe and cough effectively. She has tried Mucinex in the past without relief. She denies fever, cephalalgia, nausea, or emesis. She has not tried any allergy medications such as Marilu, Claritin, or Zyrtec due to concerns about liver health. She has undergone two chest x-rays in January and February, both of which were reportedly clear. She has also completed two rounds of steroids and antibiotics, including a Z-Santiago, without significant improvement. She is currently taking Bromfed DM, which has provided some relief for her cough but has not resolved the phlegm issue. She has not been prescribed an albuterol inhaler previously. She is currently taking nadolol, prescribed by her GI doctor, for esophageal varices. She denies a history of smoking. Review of Systems Constitutional: (-) fever Head: (-) headache Ears/Nose/Mouth/Throat: (+) throat phlegm, (+) hoarseness Respiratory: (+) cough worse at night, (+) shortness of breath Gastrointestinal: (-) nausea, (-) vomiting Objective BP 137/83 Pulse 78 Temp 36.6 ?C (97.9 ?F) Resp 18 Wt 100 kg (220 lb 6.4 oz) SpO2 100% BMI 32.55 kg/m? Physical Exam General: No acute distress. HEENT: Tympanic membranes pearly mayfield bilaterally, no signs of infection; no tenderness to palpation, bilateral anterior, maxillary and frontal sinuses. CV: Heart sounds normal, regular rhythm. Resp: Lungs clear to auscultation bilaterally. Abd: Bowel sounds normal; no tenderness to palpation. Skin: Warm and dry. {1. Chest congestion (R09.89) Acute cough (R05.1) Persistent chest congestion and cough for over two months, unresponsive to two courses of antibiotics and steroids. Chest X-rays from January and February were clear. No history of smoking. Lungs clear to auscultation on exam. Currently taking Bromfed DM with some relief. No fever, headache, nausea, or vomiting reported. No tenderness to abdominal palpation. Bilateral anterior, maxillary, and frontal sinuses non-tender to palpation. Tympanic membranes are pearly mayfield with no signs of infection. Currently on nadolol daily. - Prescribed albuterol inhaler to be used with a few hours interval from nadolol administration. - Recommended [id number] Mucinex (guaifenesin) to liquefy mucus. - Continue Bromfed DM as needed, primarily at night due to sedative effects. - Follow up with director of manufacturing operations as referred by primary care physician. - Sent prescriptions to [facility] in [place], a 24-hour pharmacy. I discussed side effects of using the albuterol inhaler and that all close together recommended she keep those medications apart. As patient has had 2 rounds of steroids 2 rounds of antibiotics and is still complaining of symptoms but has not tried an albuterol inhaler I feel the benefit at this time outweigh the risk the medication to see if this helps her with her symptoms. I recommended she keep her appointment with the director of manufacturing operations for further evaluation and treatment. Recording using [employer] software for draft documentation of the visit was discussed with the patient/authorized workforce services representative; all questions welcomed and answered. Patient/authorized workforce services representative agreed to proceed MDM Procedures [facility] 04-16-2025 History of Present illness Narrative [facility] Subjective Dominic Jimenez is a 55 year old female. Patient presents with: Cough: Congestion both over 2 months HPI Dominic is a 55-year-old female, with a history of esophageal varices, presenting with persistent phlegm and cough. Dominic reports a 2.5 month history of persistent phlegm and cough, which is worse at night. She describes the phlegm as being stuck in her throat, making it difficult to breathe and cough effectively. She has tried Mucinex in the past without relief. She denies fever, cephalalgia, nausea, or emesis. She has not tried any allergy medications such as Marilu, Claritin, or Zyrtec due to concerns about liver health. She has undergone two chest x-rays in January and February, both of which were reportedly clear. She has also completed two rounds of steroids and antibiotics, including a Z-Santiago, without significant improvement. She is currently taking Bromfed DM, which has provided some relief for her cough but has not resolved the phlegm issue. She has not been prescribed an albuterol inhaler previously. She is currently taking nadolol, prescribed by her GI doctor, for esophageal varices. She denies a history of smoking. Review of Systems Constitutional: (-) fever Head: (-) headache Ears/Nose/Mouth/Throat: (+) throat phlegm, (+) hoarseness Respiratory: (+) cough worse at night, (+) shortness of breath Gastrointestinal: (-) nausea, (-) vomiting Objective BP 137/83 Pulse 78 Temp 36.6 C (97.9 F) Resp 18 Wt 100 kg (220 lb 6.4 oz) SpO2 100% BMI 32.55 kg/m Physical Exam General: No acute distress. HEENT: Tympanic membranes pearly mayfield bilaterally, no signs of infection; no tenderness to palpation, bilateral anterior, maxillary and frontal sinuses. CV: Heart sounds normal, regular rhythm. Resp: Lungs clear to auscultation bilaterally. Abd: Bowel sounds normal; no tenderness to palpation. Skin: Warm and dry. {1. Chest congestion (R09.89) Acute cough (R05.1) Persistent chest congestion and cough for over two months, unresponsive to two courses of antibiotics and steroids. Chest X-rays from January and February were clear. No history of smoking. Lungs clear to auscultation on exam. Currently taking Bromfed DM with some relief. No fever, headache, nausea, or vomiting reported. No tenderness to abdominal palpation. Bilateral anterior, maxillary, and frontal sinuses non-tender to palpation. Tympanic membranes are pearly mayfield with no signs of infection. Currently on nadolol daily. - Prescribed albuterol inhaler to be used with a few hours interval from nadolol administration. - Recommended [id number] Mucinex (guaifenesin) to liquefy mucus. - Continue Bromfed DM as needed, primarily at night due to sedative effects. - Follow up with director of manufacturing operations as referred by primary care physician. - Sent prescriptions to [facility] in [place], a 24-hour pharmacy. I discussed side effects of using the albuterol inhaler and that all close together recommended she keep those medications apart. As patient has had 2 rounds of steroids 2 rounds of antibiotics and is still complaining of symptoms but has not tried an albuterol inhaler I feel the benefit at this time outweigh the risk the medication to see if this helps her with her symptoms. I recommended she keep her appointment with the director of manufacturing operations for further evaluation and treatment. Recording using [employer] software for draft documentation of the visit was discussed with the patient/authorized workforce services representative; all questions welcomed and answered. Patient/authorized workforce services representative agreed to proceed MDM Procedures documented in this encounter [facility] 04-16-2025 Instructions Yovana Stewart Jr., VERNA.JERRY - 04/16/2025 7:20 PM EDT We discussed your persistent throat symptoms and cough: - I prescribed an albuterol inhaler to help open your airways and potentially improve your symptoms. This has been sent to the [facility] in [place], which is open 24 hours. Please use the inhaler as directed: - Shake it for 2 minutes before use. - Take one puff as needed, ensuring you wait a few hours after taking nadolol to avoid potential interactions. - I recommended trying Mucinex (guaifenesin), which is available over the counter, to help liquefy the phlegm and make it easier to clear. Follow the dosing instructions on the package. - Continue using Bromfed DM as needed for your cough, up to 3-4 times daily. Be aware that it may cause drowsiness, so it is best taken at night if it makes you sleepy. We discussed your follow-up care: - Please follow up with the director of manufacturing operations as soon as possible for further evaluation, including a pulmonary function test, to assess for conditions such as asthma or COPD. - If your symptoms worsen or do not improve despite these treatments, please contact our office or the director of manufacturing operations. Additional notes: - Continue taking nadolol as prescribed by your GI doctor. Remember to space out the timing of nadolol and albuterol to avoid potential breathing issues. - If you have any questions about using the inhaler or other medications, please let us know. documented in this encounter [facility] 03-30-2025 Note HNO ID: [id number] Author: BALDEV REYES MD Service: ? Author Type: Physician Type: Progress Notes Filed: 03/30/2025 21:15 Note Text: [facility] Subjective Dominic Jimenez is a 55 year old female. Patient presents with: Cough, Sore Throat : Eight to nine weeks. Bilateral Ear Pain : One week 55-year-old female presented here complaint congestion sore throat and a cough no fevers no chills no other complaint. Review of Systems HENT: Positive for congestion. Respiratory: Positive for cough. All other systems reviewed and are negative. Objective BP 146/85 (BP Position: Sitting) Pulse 87 Temp 36.9 ?C (98.4 ?F) Resp 18 Wt 98.5 kg (217 lb 3.2 oz) SpO2 98% BMI 32.07 kg/m? Physical Exam Vitals and nursing note reviewed. Constitutional: Appearance: Normal appearance. HENT: Head: Normocephalic and atraumatic. Right Ear: Tympanic membrane, ear canal and external ear normal. Left Ear: Tympanic membrane, ear canal and external ear normal. Nose: Congestion and rhinorrhea present. Mouth/Throat: Mouth: Mucous membranes are moist. Eyes: Extraocular Movements: Extraocular movements intact. Pupils: Pupils are equal, round, and reactive to light. Cardiovascular: Rate and Rhythm: Normal rate and regular rhythm. Pulses: Normal pulses. Heart sounds: Normal heart sounds. Pulmonary: Effort: Pulmonary effort is normal. Breath sounds: Normal breath sounds. Neurological: Mental Status: She is alert. {ASSESSMENT/PLAN: 1. Acute upper respiratory infection - ICD9: 465.9, ICD10: J06.9 (primary diagnosis) Z-Santiago take as directed patient follow-up as needed 2. Acute cough - ICD9: 786.2, ICD10: R05.1 Bromfed-DM 2 teaspoon p.o. 3 times daily 3. Bronchitis - ICD9: 490, ICD10: J40 Prednisone 20 mg twice a day for 3 days Baldev Reyes MD [facility] 03-30-2025 History of Present illness Narrative [facility] Subjective Dominic Jimenez is a 55 year old female. Patient presents with: Cough, Sore Throat : Eight to nine weeks. Bilateral Ear Pain : One week 55-year-old female presented here complaint congestion sore throat and a cough no fevers no chills no other complaint. Review of Systems HENT: Positive for congestion. Respiratory: Positive for cough. All other systems reviewed and are negative. Objective BP 146/85 (BP Position: Sitting) Pulse 87 Temp 36.9 C (98.4 F) Resp 18 Wt 98.5 kg (217 lb 3.2 oz) SpO2 98% BMI 32.07 kg/m Physical Exam Vitals and nursing note reviewed. Constitutional: Appearance: Normal appearance. HENT: Head: Normocephalic and atraumatic. Right Ear: Tympanic membrane, ear canal and external ear normal. Left Ear: Tympanic membrane, ear canal and external ear normal. Nose: Congestion and rhinorrhea present. Mouth/Throat: Mouth: Mucous membranes are moist. Eyes: Extraocular Movements: Extraocular movements intact. Pupils: Pupils are equal, round, and reactive to light. Cardiovascular: Rate and Rhythm: Normal rate and regular rhythm. Pulses: Normal pulses. Heart sounds: Normal heart sounds. Pulmonary: Effort: Pulmonary effort is normal. Breath sounds: Normal breath sounds. Neurological: Mental Status: She is alert. {ASSESSMENT/PLAN: 1. Acute upper respiratory infection - ICD9: 465.9, ICD10: J06.9 (primary diagnosis) Z-Santiago take as directed patient follow-up as needed 2. Acute cough - ICD9: 786.2, ICD10: R05.1 Bromfed-DM 2 teaspoon p.o. 3 times daily 3. Bronchitis - ICD9: 490, ICD10: J40 Prednisone 20 mg twice a day for 3 days Baldev Reyes MD MDM Procedures documented in this encounter [facility] 03-30-2025 Note Addended by: AURE CARLTON on: 03/30/2025 11:04 AM Modules accepted: Orders [facility] 03-30-2025 Miscellaneous Notes Addended by: AURE CARLTON on: 03/30/2025 11:04 AM Modules accepted: Orders Will refer to pulmonology. Please have her call [phone] to schedule. Dominic still has ongoing problems with her cough 9 weeks later, is very dry and sore and tessalon perles only helped with some of the soreness, is there anything you would recommend to help her get over the cough at this point? Zi Jerome MA March 30, 2025 10:22 AM documented in this encounter [facility] 03-30-2025 Telephone encounter Note Will refer to pulmonology. Please have her call [phone] to schedule. [facility] 03-30-2025 Telephone encounter Note Dominic still has ongoing problems with her cough 9 weeks later, is very dry and sore and tessalon perles only helped with some of the soreness, is there anything you would recommend to help her get over the cough at this point? Zi Jerome MA March 30, 2025 10:22 AM [facility] 03-17-2025 Telephone encounter Note Gave patient updates from lab work and recommendations, patient still needs to follow up with hematology but has not yet. Zi Jerome MA March 17, 2025 1:38 PM [facility] 03-17-2025 Miscellaneous Notes Gave patient updates from lab work and recommendations, patient still needs to follow up with hematology but has not yet. Zi Jerome MA March 17, 2025 1:38 PM She was supposed to make appt with hematology. Per last OV, States she believes that GI referred her to hematology, but she was supposed to check with her insurance to see who is in network and has not done that yet. Does not have scheduled appointment with hematology to follow-up on iron deficiency anemia. Did she find out who insurance covers? RDW-CV just means how much the red blood cells are varying in size. Since this is decreasing I would not be concerned about it. Her chest x-ray is normal A1c is elevated at 6.0% and her cholesterol is worse, total is 205 and LDL is 162 with decreasing HDL. She needs to watch her diet better, cut back on carbs and saturated fat. Patient called into the office wanting to know what to do about her A1c, ferratin, is it ok? Also low platelets? What should be done at this? Should she see a High Wire Artist. Wants to know what RDW-CV abnormal means. Wants to know what to do about her high cholesterol. Please advise. documented in this encounter [facility] 03-16-2025 Telephone encounter Note She was supposed to make appt with hematology. Per last OV, States she believes that GI referred her to hematology, but she was supposed to check with her insurance to see who is in network and has not done that yet. Does not have scheduled appointment with hematology to follow-up on iron deficiency anemia. Did she find out who insurance covers? RDW-CV just means how much the red blood cells are varying in size. Since this is decreasing I would not be concerned about it. Her chest x-ray is normal A1c is elevated at 6.0% and her cholesterol is worse, total is 205 and LDL is 162 with decreasing HDL. She needs to watch her diet better, cut back on carbs and saturated fat. [facility] 03-16-2025 Telephone encounter Note Patient called into the office wanting to know what to do about her A1c, ferratin, is it ok? Also low platelets? What should be done at this? Should she see a High Wire Artist. Wants to know what RDW-CV abnormal means. Wants to know what to do about her high cholesterol. Please advise. [facility] 03-13-2025 Note HNO ID: [id number] Author: HAYDEE LUU RT(Jim) Service: ? Author Type: Technologist Type: Progress Notes Filed: 03/13/2025 16:30 Note Text: Radiology Service Progress Note PATIENT NAME: Dominic Jimenez DATE OF SERVICE: March 13, 2025 TIME: 4:30 PM PATIENT IDENTITY VERIFICATION COMPLETED USING TWO (2) IDENTIFIERS: Name and Date of confirmed by patient verbally. FALL SCREENING: Has the patient had 2 falls in the last year or 1 fall with injury or currently using an Ambulatory Assistive Device (Walker, Cane, Wheelchair, Crutches, etc.)? No PATIENT GENDER DATA: Assigned female at . status: : No status: NO. PATIENT RELEVANT IMPLANT DATA REVIEWED: Not Applicable PATIENT PRESENTS WITH AN IMPLANTABLE OR ATTACHED CAR RACER: No RADIOLOGY DEPARTMENT: General X-ray: Exam(s) Completed: Chest X-Ray PERIPHERAL IV DATA: Not applicable SIGNED BY: RT Elizabeth(R) March 13, 2025 4:30 PM [facility] 03-09-2025 Note Addended by: AURE CARLTON on: 03/09/2025 09:26 AM Modules accepted: Orders [facility] 03-09-2025 Miscellaneous Notes Addended by: AURE CARLTON on: 03/09/2025 09:26 AM Modules accepted: Orders She's open to try some flonase. Zi Jerome MA March 09, 2025 9:18 AM Is she using Flonase? Can try that. Dominic has had a constant cough/congestion for about a month now, got benzonatate and prednisone from [facility] at the end of january but it didn't get rid of it. Any further medication she should try? Zi Jerome MA March 08, 2025 11:56 AM documented in this encounter [facility] 03-09-2025 Telephone encounter Note She's open to try some flonase. Zi Jerome MA March 09, 2025 9:18 AM [facility] 03-08-2025 Telephone encounter Note Is she using Flonase? Can try that. [facility] 03-08-2025 Telephone encounter Note Dominic has had a constant cough/congestion for about a month now, got benzonatate and prednisone from [facility] at the end of january but it didn't get rid of it. Any further medication she should try? Zi Jerome MA March 08, 2025 11:56 AM [facility] 02-16-2025 Instructions Aure Carlton APRN.CNP - 02/16/2025 9:19 AM EDT Check with insurance to see who is covered for ortho: [facility] or [facility] and let me know where you want referral sent. Make sure you get appt with hematology (check into Dr. Gimenez or Dr. Muse.) Let me know if you need referral sent. Have fasting labs drawn Tizanidine 2 mg twice a day as needed Continue current meds Please ask specialists to send notes to us. documented in this encounter [facility] 02-16-2025 Note HNO ID: [id number] Author: AURE CARLTON APRN.CNP Service: ? Author Type: Nurse Practitioner Type: Progress Notes Filed: 02/16/2025 18:22 Note Text: Dominic Jimenez is a 54 year old female who presents with Follow Up (Dominic is here for a follow up today, went to [facility] about a month ago with bronchitis, is still having considerable cough and colorful phlegm, would like to have something done for ongoing symptoms./Would also like to get back on tizanidine for her muscle spams/pain, states methocarbamol does not help./Also brought the rest of her medications for review.//Zi Jerome MA/February 16, 2025 8:40 AM//) Dominic presents today with her for 12 mo f/u HLD, insomnia, depression, anxiety, neuropathy. Has been having a lot of shoulder pain for the past 3-4 weeks. Was seen at [facility] and ER on multiple occasions over the past month. Told it was bursitis, given muscle relaxers, oxycodone, prednisone. She has not taken prednisone yet. X-ray showed mild DJD. Was told she had bursitis. No referral to ortho. She is also c/o cough ongoing for the past 1-2 months. CXR was clear. Was given Augmentin, prednisone (has not yet taken prednisone.) Cough is productive for brown/green sputum. Feels she has had some SOB and wheezing associated, but that has been improving. Insomnia- on trazodone Continues to follow with Dr. Scott (GI). Not taking Xifaxin, cannot afford. Last MELD score 7. States she believes that GI referred her to hematology, but she was supposed to check with her insurance to see who is in network and has not done that yet. Does not have scheduled appointment with hematology to follow-up on iron deficiency anemia. No longer having any vaginal bleeding. Following with Dr. Can VP GLOBAL Depression- controlled on Cymbalta and Celexa Anxiety- has been taking hydroxyzine daily along with Cymbalta and Celexa. Generally controlled. Neuropathy- on gabapentin TID, helping though not resolved. Wants to have tizanidine prescribed again, does not feel methocarbamol is helping. The history is provided by the patient. Hemoglobin A1C Date Value Ref Range Status 10/10/2024 5.7 (H) 4.3 - 5.6 % Final Comment: [place] [employer] guidelines indicate that patients with HgbA1c in the range 5.7-6.4% are at increased risk for development of diabetes, and intervention by lifestyle modification may be beneficial. HgbA1c greater or equal to 6.5% is considered diagnostic of diabetes. 05/09/2023 5.4 4.3 - 6.0 % Final Comment: [place] [employer] guidelines indicate that patients with HgbA1c in the range 5.7-6.4% are at increased risk for development of diabetes, and intervention by lifestyle modification may be beneficial. HgbA1c greater or equal to 6.5% is considered diagnostic of diabetes. TSH Date Value Ref Range Status 08/08/2024 3.323 0.358 - 3.740 mIU/L Final Comment: 3rd generation ultra sensitive TSH. 05/09/2023 2.444 0.358 - 3.740 mIU/L Final Comment: 3rd generation ultra sensitive TSH. 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 predniSONE (DELTASONE) 20 mg tablet Take 1 tablet by mouth once daily for 5 days. 5 tablet 0 esterified estrogens-methylTESTOSTERone (ESTRATEST HS) 0.625-1.25 mg per tablet Take 1 tablet by mouth once daily. dicyclomine (BENTYL) 10 mg capsule take 1 capsule by mouth twice daily as needed for pain methocarbamol (ROBAXIN) 500 mg tablet Take 1 tablet by mouth three times a day. 90 tablet 3 solifenacin 10 mg tablet Take 1 tablet by mouth every afternoon. hydrOXYzine pamoate (VISTARIL) 25 mg capsule TAKE 1 CAPSULE BY MOUTH EVERY 12 HOURS NEEDED FOR ANXIETY 60 capsule 2 ferrous sulfate (IRON, FERROUS SULFATE,) 325 mg (65 mg iron) tablet Take 325 mg by mouth two times a day. DULoxetine (CYMBALTA) 60 mg capsule Take 1 capsule by mouth two times a day. 180 capsule 3 gabapentin (NEURONTIN) 800 mg tablet Take 800 mg by mouth three times a day. calcium citrate-vitamin D (more content not included)... [facility] 02-16-2025 History of Present illness Narrative Dominic Jimenez is a 54 year old female who presents with Follow Up (Dominic is here for a follow up today, went to [facility] about a month ago with bronchitis, is still having considerable cough and colorful phlegm, would like to have something done for ongoing symptoms./Would also like to get back on tizanidine for her muscle spams/pain, states methocarbamol does not help./Also brought the rest of her medications for review.//Zi Jerome MA/February 16, 2025 8:40 AM//) Dominic presents today with her for 12 mo f/u HLD, insomnia, depression, anxiety, neuropathy. Has been having a lot of shoulder pain for the past 3-4 weeks. Was seen at [facility] and ER on multiple occasions over the past month. Told it was bursitis, given muscle relaxers, oxycodone, prednisone. She has not taken prednisone yet. X-ray showed mild DJD. Was told she had bursitis. No referral to ortho. She is also c/o cough ongoing for the past 1-2 months. CXR was clear. Was given Augmentin, prednisone (has not yet taken prednisone.) Cough is productive for brown/green sputum. Feels she has had some SOB and wheezing associated, but that has been improving. Insomnia- on trazodone Continues to follow with Dr. Scott (GI). Not taking Xifaxin, cannot afford. Last MELD score 7. States she believes that GI referred her to hematology, but she was supposed to check with her insurance to see who is in network and has not done that yet. Does not have scheduled appointment with hematology to follow-up on iron deficiency anemia. No longer having any vaginal bleeding. Following with Dr. Can VP GLOBAL Depression- controlled on Cymbalta and Celexa Anxiety- has been taking hydroxyzine daily along with Cymbalta and Celexa. Generally controlled. Neuropathy- on gabapentin TID, helping though not resolved. Wants to have tizanidine prescribed again, does not feel methocarbamol is helping. The history is provided by the patient. Hemoglobin A1C Date Value Ref Range Status 10/10/2024 5.7 (H) 4.3 - 5.6 % Final Comment: [place] [employer] guidelines indicate that patients with HgbA1c in the range 5.7-6.4% are at increased risk for development of diabetes, and intervention by lifestyle modification may be beneficial. HgbA1c greater or equal to 6.5% is considered diagnostic of diabetes. 05/09/2023 5.4 4.3 - 6.0 % Final Comment: [place] [employer] guidelines indicate that patients with HgbA1c in the range 5.7-6.4% are at increased risk for development of diabetes, and intervention by lifestyle modification may be beneficial. HgbA1c greater or equal to 6.5% is considered diagnostic of diabetes. TSH Date Value Ref Range Status 08/08/2024 3.323 0.358 - 3.740 mIU/L Final Comment: 3rd generation ultra sensitive TSH. 05/09/2023 2.444 0.358 - 3.740 mIU/L Final Comment: 3rd generation ultra sensitive TSH. 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 predniSONE (DELTASONE) 20 mg tablet Take 1 tablet by mouth once daily for 5 days. 5 tablet 0 esterified estrogens-methylTESTOSTERone (ESTRATEST HS) 0.625-1.25 mg per tablet Take 1 tablet by mouth once daily. dicyclomine (BENTYL) 10 mg capsule take 1 capsule by mouth twice daily as needed for pain methocarbamol (ROBAXIN) 500 mg tablet Take 1 tablet by mouth three times a day. 90 tablet 3 solifenacin 10 mg tablet Take 1 tablet by mouth every afternoon. hydrOXYzine pamoate (VISTARIL) 25 mg capsule TAKE 1 CAPSULE BY MOUTH EVERY 12 HOURS NEEDED FOR ANXIETY 60 capsule 2 ferrous sulfate (IRON, FERROUS SULFATE,) 325 mg (65 mg iron) tablet Take 325 mg by mouth two times a day. DULoxetine (CYMBALTA) 60 mg capsule Take 1 capsule by mouth two times a day. 180 capsule 3 gabapentin (NEURONTIN) 800 mg tablet Take 800 mg by mouth three times a day. calcium citrate-vitamin D3 (CITRACAL+D) 315 mg-5 mcg (200 unit) tab Take by mouth as directed. cholestyramine (QUESTRAN) 4 gram packet DISSOLVE IN WATER & TAKE 1 POWDER PACKET BY MOUTH TWICE DAILY NEEDED citalopram (CELEXA) 20 mg tablet Take 1 tablet by mouth once daily. 90 tablet 3 traZODone (DESYREL) 100 mg tablet Take 2 tablets by mouth daily at bedtime. 180 tablet 3 progesterone micronized (PROMETRIUM) 100 mg capsule Take by mouth. lactulose 10 gram/15 mL solution Take 10 [...] 250 mg by mouth once daily. glucosamine/chondr paniagua A sod (GLUCOSAMINE-CHONDROITIN) 750-600 mg tab Take 1 tablet by mouth once daily. Lactobac no.41/Bifidobact no.7 (PROBIOTIC-10 ORAL) Take 1 tablet by mouth once daily. vitamin B complex (B COMPLEX 1 ORAL) Take 1 tablet by mouth once daily. Milk Thistle 175 mg tab Take [...] by mouth once daily. For 30 days sihbiqbmrusw-vhopuiwo-uqkrgsr k-coenzyme Q-10 (DEKAS PLUS) 200 mcg-1,000 mcg-10 [...] Take 5,000 Units by mouth once daily. mirabegron (MYRBETRIQ) 50 mg Tb24 Take 50 mg by mouth daily with breakfast. (Patient not taking: Reported on 02/16/2025) estradiol (ESTRACE) 0.01 % (0.1 mg/gram) vaginal cream INSERT 1 GRAM VAGINALLY THREE TIMES A WEEK BEFORE BED (Patient not taking: Reported on 02/16/2025) testosterone (VOGELXO) 12.5 mg/ 1.25 gram (1 %) transdermal gel Apply as directed. (Patient not taking: Reported on 02/16/2025) rifAXIMin (XIFAXAN) 550 mg tablet Take 550 mg by mouth two times a day. (Patient not taking: Reported on 02/16/2025) GEMTESA 75 mg tablet Take 1 tablet by mouth every afternoon. (Patient not taking: Reported on 02/16/2025) estradiol 0.01% estriol 0.01% topical cream (CPD) Apply 0.1ml to upper inner arm daily. (Patient not taking: Reported on 02/16/2025) PROGESTERONE MISC No current facility-administered medications for this visit. Social History Tobacco Use Smoking status: Never Passive exposure: Never Smokeless tobacco: Never Vaping Use Vaping status: Never Used Substance Use Topics Alcohol use: Not Currently Drug use: Never No family history on file. Review of Systems Constitutional: Positive for unexpected weight change. Negative for activity change, appetite change and fatigue. HENT: Negative for hearing loss and trouble swallowing. Eyes: Negative for visual disturbance. Respiratory: Positive for cough. Negative for shortness of breath. Cardiovascular: Negative for chest pain, palpitations and leg swelling. Gastrointestinal: Negative for diarrhea, nausea and vomiting. Genitourinary: Negative for difficulty urinating. Musculoskeletal: Positive for arthralgias, back pain and myalgias. Skin: Negative for rash and wound. Neurological: Negative for dizziness, weakness, light-headedness and headaches. Psychiatric/Behavioral: Negative for dysphoric mood and sleep disturbance. The patient is not nervous/anxious. All other systems reviewed and are negative. BP 108/70 Pulse 74 Temp (Src) 97.8 (Temporal) Resp 18 Ht 5' 9 (1.75m) Wt 211 lb (95.7kg) SpO2 95% BMI 31.15 kg/(m^2). Physical Exam Vitals and nursing note reviewed. Constitutional: Appearance: Normal appearance. She is obese. Comments: Weight up 22# from last OV 03/2024 HENT: Head: Normocephalic and atraumatic. Ears: Comments: Grossly normal hearing Eyes: Pupils: Pupils are equal, round, and reactive to light. Cardiovascular: Rate and Rhythm: Normal rate and regular rhythm. Pulses: Normal pulses. Heart sounds: Normal heart sounds. No murmur heard. Pulmonary: Effort: Pulmonary effort is normal. Breath sounds: Normal breath sounds. Abdominal: General: Bowel sounds are normal. Palpations: Abdomen is soft. Musculoskeletal: General: No swelling. Cervical back: Neck [...] Very talkative Medications were reviewed and verified. 02/12/2025 02/16/2025 INTAKE PAIN ASSESSMENT Are you having pain associated with your visit today? Yes, Provider notified No Pain Scales Verbal (Numeric Rating or Visual Analog Scale) Pain Level 10 Pain Location Arm-Right Description Shooting Frequency Continuous If pain assessment is 0, no action needed. If pain assessment is positive, please see assessment and plain. Assessment & Plan ASSESSMENT/PLAN: 1. Hyperlipidemia, unspecified hyperlipidemia type - ICD9: 272.4, ICD10: E78.5 (primary diagnosis) - Control undetermined, due for labs - Counseled on healthy diet and regular exercise - COMPREHENSIVE METABOLIC PANEL - COMPLETE BLOOD COUNT - LIPID PANEL, FASTING 2. Alcoholic cirrhosis of liver without ascites (HCC) - ICD9: 571.2, ICD10: K70.30 Stable, following with GI. 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 3. Depression, unspecified depression type - ICD9: 311, ICD10: F32.A Controlled, continue Celexa and Cymbalta - CITALOPRAM 20 MG TABLET 4. Anxiety - ICD9: 300.00, ICD10: F41.9 Controlled, continue Celexa and Cymbalta - CITALOPRAM 20 MG TABLET 5. Pancytopenia (HCC) - ICD9: 284.19, ICD10: D61.818 Check labs, needs appointment with hematology. She will check with her insurance company and advise either our office or GI if she needs referral - FERRITIN - IRON AND TIBC 6. Vitamin D deficiency, unspecified - ICD9: 268.9, ICD10: E55.9 Monitor - VITAMIN D 25 HYDROXY 7. Prediabetes - ICD9: 790.29, ICD10: R73.03 Monitor - HEMOGLOBIN A1C 8. Insomnia, unspecified type - ICD9: 780.52, ICD10: G47.00 Doing well on trazodone at current dose - TRAZODONE 100 MG TABLET 9. Acute pain of right shoulder - ICD9: 719.41, ICD10: M25.511 Will refer to Ortho, however, she would like to check with her insurance to see who is in network first and then will let us know and we will proceed with referral at that time. 10. Polyneuropathy, unspecified - ICD9: 356.9, ICD10: G62.9 Resume tizanidine 2 mg twice daily as needed, however, advised to be very cautious as she has previously had hallucinations with higher doses of tizanidine in the past - GABAPENTIN 800 MG TABLET - TIZANIDINE 2 MG CAPSULE 11. Class 1 obesity with serious comorbidity and body mass index (BMI) of 31.0 to 31.9 in adult, unspecified obesity type - ICD9: 278.00, V85.31, ICD10: E66.811, Z68.31 Weight increasing Behavioral intervention Aure Carlton APRN.CNP PATIENT NAME: Dominic Jimenez DATE: February 16, 2025 SIGNATURE: Aure Carlton APRN.JERRY documented in this encounter [facility] 02-12-2025 Note HNO ID: [id number] Author: YOVANA STEWART JR, APRN.JERRY Service: ? Author Type: Nurse Practitioner Type: Progress Notes Filed: 02/12/2025 19:56 Note Text: [facility] Subjective Dominic Jimenez is a 54 year old female. Patient presents with: Cough: Chest congestion and cough x 3 weeks Ongoing right arm pain 54-year-old female presented today complaining of cough and chronic right shoulder pain. Patient stated that the shoulder was hurting her. The history is provided by the patient. Review of Systems Respiratory: Positive for cough. Musculoskeletal: Positive for arthralgias. Objective BP 139/91 Pulse 75 Temp 36.4 ?C (97.5 ?F) (Temporal) Resp 18 Wt 90.7 kg (200 lb) SpO2 99% BMI 29.53 kg/m? Physical Exam Vitals and nursing note reviewed. Constitutional: Appearance: Normal appearance. HENT: Head: Normocephalic and atraumatic. Eyes: Conjunctiva/sclera: Conjunctivae normal. Cardiovascular: Rate and Rhythm: Normal rate and regular rhythm. Heart sounds: Normal heart sounds. Pulmonary: Effort: Pulmonary effort is normal. Breath sounds: Normal breath sounds. No stridor. No wheezing or rales. Abdominal: General: Bowel sounds are normal. Palpations: Abdomen is soft. Skin: General: Skin is warm and dry. Neurological: General: No focal deficit present. Mental Status: She is alert and oriented to person, place, and time. Assessment AND Plan Acute cough Based on patient's exam findings I diagnosed her with a acute cough. I prescribed her prednisone. I was considering other medications at that time when patient began to discuss that she was very upset that somebody stated that she was on Percocet. Orders: predniSONE (DELTASONE) 20 mg tablet; Take 1 tablet by mouth once daily for 5 days. Acute pain of right shoulder Orders: CONSULT TO [facility] ([facility] PAIN); Future During the exam patient became irate that I stated I was informed that she recently received 3 Percocets. Patient denied knowing what a Percocet was and that she was only prescribed tizanidine. On review of the prescriptions I found that she was prescribed a muscle relaxer tizanidine on her last visit with a provider here at the urgent care on 02/07/2025. I looked on her OARRS/PDMP patient was prescribed 12 oxycodone AKA Percocet on February 08, 2025. I will note patient was not wearing her shoulder brace at time of visit. When patient began to express her displeasure that I was informed that she had been prescribed Percocet I turned and stated that we had had this discussion on her visit with me on January 26, 2025 that I will not prescribe controlled meds here. Patient stated she did not remember that. At that time I decided I was not can engage in this conversation and informed the patient she has a decision to make we can finish today's visit or we can be done. Patient looked at me at that time and stated I guess them were done. I gathered up the paperwork I signed the orders for the prednisone. Patient stated that she did have a pain management that she went to but they had closed her moved and that she was going to call another place. I stated I was still going to place a referral. I was having trouble placing the order and decided to print out patient's after visit summary and then work on getting the order in which has been done at this time. While charting patient and her came back in to discuss the issue. Patient's kept repeating that they wanted me to know that she is not a drug addict and is not drug-seeking. Patient's was informed that is not my opinion although she was prescribed Percocets and if her shoulder is hurting that bad she needs to take them. He patient's said that she was diagnosed with bursitis. I replied that prednisone will help the bursitis. He then added that she has an appoint with her primary care physician in a week or 2. And that she has not been taking the Percocets because they are trying to save them. I replied they were prescribed for her pain and she has that much pain she needs to take them as that is what they were prescribed for. I added that if she does not have pain then I would agree not to take him but if she is in here complaining of pain when an x-ray has already been done and we have been diagnosed there is nothing further that I am going to do here for the shoulder due to this being an urgent care I am not going to repeat the x-ray. I then explained to the that I did tell patient that we can either finish the visit or we can stop and that she replied that we were done at that time. He thanked me for my time and him and his exited the office. Differential Diagnoses - Cough is more likely for the following reason(s): suggested by HANDP Procedures [facility] 02-12-2025 History of Present illness Narrative [facility] Pham Dominic Jimenez is a 54 year old female. Patient presents with: Cough: Chest congestion and cough x 3 weeks Ongoing right arm pain 54-year-old female presented today complaining of cough and chronic right shoulder pain. Patient stated that the shoulder was hurting her. The history is provided by the patient. Review of Systems Respiratory: Positive for cough. Musculoskeletal: Positive for arthralgias. Objective BP 139/91 Pulse 75 Temp 36.4 C (97.5 F) (Temporal) Resp 18 Wt 90.7 kg (200 lb) SpO2 99% BMI 29.53 kg/m Physical Exam Vitals and nursing note reviewed. Constitutional: Appearance: Normal appearance. HENT: Head: Normocephalic and atraumatic. Eyes: Conjunctiva/sclera: Conjunctivae normal. Cardiovascular: Rate and Rhythm: Normal rate and regular rhythm. Heart sounds: Normal heart sounds. Pulmonary: Effort: Pulmonary effort is normal. Breath sounds: Normal breath sounds. No stridor. No wheezing or rales. Abdominal: General: Bowel sounds are normal. Palpations: Abdomen is soft. Skin: General: Skin is warm and dry. Neurological: General: No focal deficit present. Mental Status: She is alert and oriented to person, place, and time. Assessment & Plan Acute cough Based on patient's exam findings I diagnosed her with a acute cough. I prescribed her prednisone. I was considering other medications at that time when patient began to discuss that she was very upset that somebody stated that she was on Percocet. Orders: predniSONE (DELTASONE) 20 mg tablet; Take 1 tablet by mouth once daily for 5 days. Acute pain of right shoulder Orders: CONSULT TO [facility] (CHRONIC PAIN); Future During the exam patient became irate that I stated I was informed that she recently received 3 Percocets. Patient denied knowing what a Percocet was and that she was only prescribed tizanidine. On review of the prescriptions I found that she was prescribed a muscle relaxer tizanidine on her last visit with a provider here at the urgent care on 02/07/2025. I looked on her OARRS/PDMP patient was prescribed 12 oxycodone AKA Percocet on February 08, 2025. I will note patient was not wearing her shoulder brace at time of visit. When patient began to express her displeasure that I was informed that she had been prescribed Percocet I turned and stated that we had had this discussion on her visit with me on January 26, 2025 that I will not prescribe controlled meds here. Patient stated she did not remember that. At that time I decided I was not can engage in this conversation and informed the patient she has a decision to make we can finish today's visit or we can be done. Patient looked at me at that time and stated I guess them were done. I gathered up the paperwork I signed the orders for the prednisone. Patient stated that she did have a pain management that she went to but they had closed her moved and that she was going to call another place. I stated I was still going to place a referral. I was having trouble placing the order and decided to print out patient's after visit summary and then work on getting the order in which has been done at this time. While charting patient and her came back in to discuss the issue. Patient's kept repeating that they wanted me to know that she is not a drug addict and is not drug-seeking. Patient's was informed that is not my opinion although she was prescribed Percocets and if her shoulder is hurting that bad she needs to take them. He patient's said that she was diagnosed with bursitis. I replied that prednisone will help the bursitis. He then added that she has an appoint with her primary care physician in a week or 2. And that she has not been taking the Percocets because they are trying to save them. I replied they were prescribed for her pain and she has that much pain she needs to take them as that is what they were prescribed for. I added that if she does not have pain then I would agree not to take him but if she is in here complaining of pain when an x-ray has already been done and we have been diagnosed there is nothing further that I am going to do here for the shoulder due to this being an urgent care I am not going to repeat the x-ray. I then explained to the that I did tell patient that we can either finish the visit or we can stop and that she replied that we were done at that time. He thanked me for my time and him and his exited the office. Differential Diagnoses - Cough is more likely for the following reason(s): suggested by H&P Procedures documented in this encounter [facility] 02-07-2025 Instructions Nicolette Villagomez APRN.[facility] - 02/07/2025 11:53 AM EDT BURSITIS What is bursitis? -- Bursitis is a condition that can cause pain or swelling next to a joint. Most of the time, bursitis happens around the shoulder, elbow, hip, or knee. It can also happen around other joints in the body. A bursa is a small fluid-filled sac that sits near a bone. It cushions and protects nearby tissues when they rub on or slide over bones. These sacs, called bursae, are found in many places throughout the body. Bursitis happens when a bursa gets irritated and swollen. This can happen when a person: Moves a joint over and over again in the same way, over a short period of time Sits on a hard surface or stays in a position that presses on the bursa for a long time Has certain kinds of arthritis, such as gout or rheumatoid arthritis, that can affect their joints and bursae Gets hurt near a bursa Has an infection that spreads to a bursa What are the symptoms of bursitis? -- Symptoms of bursitis can include: Pain, including when the area is touched Swelling Trouble moving the joint A bursa can get infected if a person gets a cut on the skin nearby. An infected bursa can cause a fever and the area around the bursa to be: Red Swollen Warm Painful If you have any of the symptoms of an infected bursa, let your doctor or nurse know as soon as possible. Is there a test for bursitis? -- Yes. Your doctor or nurse will ask about your symptoms and do an exam. If you have symptoms of an infected bursa, your doctor might use a needle to remove some fluid from the bursa. Then he or she can do lab tests on the fluid to find out what is causing the bursitis, and if you need antibiotics. He or she might also order imaging tests, such as an MRI scan or ultrasound. Imaging tests can create pictures of the inside of the body. What can I do to treat my bursitis? -- To treat your bursitis, you can: Rest, cushion, and protect the area - Try not to irritate the area that hurts. For example, people with very painful shoulder bursitis might need to avoid lifting or carrying heavy things for a while. They might also need to wear an arm sling. People with bursitis behind the heel might need to use a thick heel pad. This can raise the heel so that it does not rub against the back of the shoe. Avoid positions that put pressure on the area - For example, people with bursitis in the front of the knee should avoid kneeling. Put ice on the area to reduce pain - Use a frozen bag of peas or a cold gel pack a few times a day for 20 minutes each time. Put heat on the area to reduce pain and stiffness - Do not use heat for more than 20 minutes at a time. Also, do not use anything too hot that could burn your skin. What other treatments might I have? -- Your doctor or nurse might use other treatments, depending on your symptoms and where your bursitis is. Treatments can include: Pain-relieving medicines called nonsteroidal anti-inflammatory drugs or NSAIDs - NSAIDs include ibuprofen (also sold as Advil or Motrin ), and naproxen (also sold as Aleve or Naprosyn ). These medicines can reduce pain and prevent the bursae from getting swollen and painful. Steroid injections - During this procedure, a doctor injects a steroid medicine into the area of the bursitis. The medicine used in this treatment is different from the steroids that athletes might take to build muscle. Exercises and stretches - Your doctor or nurse might recommend that you work with a physical therapist. A physical therapist can teach you stretches and exercises to help reduce your symptoms. Surgery - A doctor can do surgery if other treatments do not work and you have had symptoms for a long time. People with an infected bursa might also have treatment that includes: Antibiotics Having the fluid in the bursa drained - A doctor can drain the fluid using a needle and syringe, or by doing surgery. Can bursitis be prevented? -- Yes. To help reduce the chance that you get bursitis, you can: Use cushions or pads to avoid putting too much pressure on joints - For example, people who garden can kneel on a kneeling pad. People who sit for a long time can sit on a cushioned chair. Take breaks, if you are using a certain joint too much Stop an activity or change the way you are doing it, if you feel pain Exercise Lose weight, if you are overweight Use good posture documented in this encounter [facility] 02-07-2025 History of Present illness Narrative Radiology Service Progress Note PATIENT NAME: Dominic Jimenez DATE OF SERVICE: February 07, 2025 TIME: 12:29 PM PATIENT IDENTITY VERIFICATION COMPLETED USING TWO (2) IDENTIFIERS: Name and Date of confirmed by patient verbally. FALL SCREENING: Has the patient had 2 falls in the last year or 1 fall with injury or currently using an Ambulatory Assistive Device (Walker, Cane, Wheelchair, Crutches, etc.)? No PATIENT GENDER DATA: Assigned female at . status: : No status: NO. PATIENT RELEVANT IMPLANT DATA REVIEWED: Not Applicable PATIENT PRESENTS WITH AN IMPLANTABLE OR ATTACHED CAR RACER: No RADIOLOGY DEPARTMENT: General X-ray: Exam(s) Completed: Upper Extremity X-Ray(s): Shoulder, OBL / Grashey / Y-View right PERIPHERAL IV DATA: Not applicable SIGNED BY: VANDANA Navarro) February 07, 2025 12:29 PM documented in this encounter [facility] 02-07-2025 Note HNO ID: [id number] Author: DARIO SULLIVAN RT(R) Service: ? Author Type: Technologist Type: Progress Notes Filed: 02/07/2025 12:30 Note Text: Radiology Service Progress Note PATIENT NAME: Dominic Jimenez DATE OF SERVICE: February 07, 2025 TIME: 12:29 PM PATIENT IDENTITY VERIFICATION COMPLETED USING TWO (2) IDENTIFIERS: Name and Date of confirmed by patient verbally. FALL SCREENING: Has the patient had 2 falls in the last year or 1 fall with injury or currently using an Ambulatory Assistive Device (Walker, Cane, Wheelchair, Crutches, etc.)? No PATIENT GENDER DATA: Assigned female at . status: : No status: NO. PATIENT RELEVANT IMPLANT DATA REVIEWED: Not Applicable PATIENT PRESENTS WITH AN IMPLANTABLE OR ATTACHED CAR RACER: No RADIOLOGY DEPARTMENT: General X-ray: Exam(s) Completed: Upper Extremity X-Ray(s): Shoulder, OBL / Grashey / Y-View right PERIPHERAL IV DATA: Not applicable SIGNED BY: Dario Sullivan, RT(R) February 07, 2025 12:29 PM [facility] 02-07-2025 Note HNO ID: [id number] Author: NICOLETTE VILLAGOMEZ APRN.[employer] Service: ? Author Type: Nurse Practitioner Type: Progress Notes Filed: 02/07/2025 12:27 Note Text: [facility] KAREYN Ankit Jimenez is a 54 year old female. Patient presents with: right arm pain: Right arm pain x 1 month No injury however patient has hx of neuropathy States she has a history of neuropathy of her bilateral lower extremities which she is already on 800 of gabapentin 3 times a day. She has had issues with upper extremity neuropathy in the past as well however describes this as more acute however it has been ongoing for the last month. She describes numbness in the top of her fingers on her right hand and sometimes the top of her hand. Pain seems to radiate down from her shoulder down to her elbow skip her forearm and then into the hand. She describes not having a comfortable position to put her arm. She cannot take Tylenol or ibuprofen secondary to her cirrhosis per patient. She was prescribed a course of steroids when she was seen here for an upper respiratory infection which did not seem to help the pain bursitis was also addressed at that time. She has also been given muscle relaxers which she states Zanaflex is the only thing that helps her at night, but taking the Robaxin during the day. She is out of the Zanaflex and requesting a few of these until she sees her primary care. Denies any injury, fevers or chills, neck pain. Review of Systems Constitutional: Positive for activity change. Negative for appetite change, chills, fatigue and fever. HENT: Negative. Eyes: Negative. Respiratory: Negative. Cardiovascular: Negative. Gastrointestinal: Negative. Genitourinary: Negative. Musculoskeletal: Positive for arthralgias and back pain. Negative for joint swelling, neck pain and neck stiffness. Skin: Negative for rash. Neurological: Positive for weakness and numbness. Hematological: Negative. Psychiatric/Behavioral: Negative. All other systems reviewed and are negative. Objective BP 108/61 Pulse 65 Temp 36.4 ?C (97.6 ?F) Resp 18 Wt 90.7 kg (200 lb) SpO2 96% BMI 29.53 kg/m? Physical Exam Vitals and nursing note reviewed. Constitutional: General: She is not in acute distress. Appearance: Normal appearance. She is not ill-appearing. Eyes: Extraocular Movements: Extraocular movements intact. Conjunctiva/sclera: Conjunctivae normal. Pupils: Pupils are equal, round, and reactive to light. Cardiovascular: Pulses: Normal pulses. Heart sounds: Normal heart sounds. Pulmonary: Effort: Pulmonary effort is normal. Breath sounds: Normal breath sounds. Abdominal: General: Abdomen is flat. Musculoskeletal: General: Tenderness present. No swelling, deformity or signs of injury. Normal range of motion. Cervical back: Normal range of motion. No rigidity or tenderness. Right lower leg: No edema. Left lower leg: No edema. Comments: Tenderness on palpation of AC joint Lymphadenopathy: Cervical: No cervical adenopathy. Skin: General: Skin is warm and dry. Findings: No bruising, erythema or rash. Neurological: General: No focal deficit present. Mental Status: She is alert and oriented to person, place, and time. Cranial Nerves: No cranial nerve deficit. Sensory: No sensory deficit. Motor: No weakness. Coordination: Coordination normal. Deep Tendon Reflexes: Reflexes normal. Comments: Strength sensation and upper extremity DTRs all within normal limits ASSESSMENT/PLAN: 1. Acute pain of right shoulder - ICD9: 719.41, ICD10: M25.511 (primary diagnosis) No acute finding on x-ray per my read will call if any discrepancy is found on radiologist interpretation. - XR SHOULDER GENERAL 3V OR MORE AP/TRUE AP/OTHER RIGHT - SLING, ARM 2. Neuropathy - ICD9: 355.9, ICD10: G62.9 - SLING, ARM 3. Bursitis of right shoulder - ICD9: 726.10, ICD10: M75.51 Discussed I concur with previous assessment in light of no further workup being done at this point. She is tender at her AC joint and shoulder. In light of no and inciting injury is most likely diagnosis. She is unable to take NSAIDs did have a risk-benefit discussion regarding that with her and recommended she have a conversation with her GI doctor regarding what would be an acceptable choice for an NSAID anti-inflammatory in this situation I did not give her any additional steroids as that did not seem to help either she seemed to be more interested in the Zanaflex to help for sleep. I gave her a few to get her to her primary where her medications are all going to need to be reviewed with her, further workup for any ongoing neuropathy as this could also be coming from her cervical spine. Discussed this will need physical therapy and further workup ifdoes not improve. Sling was given for comfort as she does not seem to find a comfortable position did recommend that she star (more content not included)... [facility] 02-07-2025 History of Present illness Narrative [facility] CHOLO Jimenez is a 54 year old female. Patient presents with: right arm pain: Right arm pain x 1 month No injury however patient has hx of neuropathy States she has a history of neuropathy of her bilateral lower extremities which she is already on 800 of gabapentin 3 times a day. She has had issues with upper extremity neuropathy in the past as well however describes this as more acute however it has been ongoing for the last month. She describes numbness in the top of her fingers on her right hand and sometimes the top of her hand. Pain seems to radiate down from her shoulder down to her elbow skip her forearm and then into the hand. She describes not having a comfortable position to put her arm. She cannot take Tylenol or ibuprofen secondary to her cirrhosis per patient. She was prescribed a course of steroids when she was seen here for an upper respiratory infection which did not seem to help the pain bursitis was also addressed at that time. She has also been given muscle relaxers which she states Zanaflex is the only thing that helps her at night, but taking the Robaxin during the day. She is out of the Zanaflex and requesting a few of these until she sees her primary care. Denies any injury, fevers or chills, neck pain. Review of Systems Constitutional: Positive for activity change. Negative for appetite change, chills, fatigue and fever. HENT: Negative. Eyes: Negative. Respiratory: Negative. Cardiovascular: Negative. Gastrointestinal: Negative. Genitourinary: Negative. Musculoskeletal: Positive for arthralgias and back pain. Negative for joint swelling, neck pain and neck stiffness. Skin: Negative for rash. Neurological: Positive for weakness and numbness. Hematological: Negative. Psychiatric/Behavioral: Negative. All other systems reviewed and are negative. Objective BP 108/61 Pulse 65 Temp 36.4 C (97.6 F) Resp 18 Wt 90.7 kg (200 lb) SpO2 96% BMI 29.53 kg/m Physical Exam Vitals and nursing note reviewed. Constitutional: General: She is not in acute distress. Appearance: Normal appearance. She is not ill-appearing. Eyes: Extraocular Movements: Extraocular movements intact. Conjunctiva/sclera: Conjunctivae normal. Pupils: Pupils are equal, round, and reactive to light. Cardiovascular: Pulses: Normal pulses. Heart sounds: Normal heart sounds. Pulmonary: Effort: Pulmonary effort is normal. Breath sounds: Normal breath sounds. Abdominal: General: Abdomen is flat. Musculoskeletal: General: Tenderness present. No swelling, deformity or signs of injury. Normal range of motion. Cervical back: Normal range of motion. No rigidity or tenderness. Right lower leg: No edema. Left lower leg: No edema. Comments: Tenderness on palpation of AC joint Lymphadenopathy: Cervical: No cervical adenopathy. Skin: General: Skin is warm and dry. Findings: No bruising, erythema or rash. Neurological: General: No focal deficit present. Mental Status: She is alert and oriented to person, place, and time. Cranial Nerves: No cranial nerve deficit. Sensory: No sensory deficit. Motor: No weakness. Coordination: Coordination normal. Deep Tendon Reflexes: Reflexes normal. Comments: Strength sensation and upper extremity DTRs all within normal limits ASSESSMENT/PLAN: 1. Acute pain of right shoulder - ICD9: 719.41, ICD10: M25.511 (primary diagnosis) No acute finding on x-ray per my read will call if any discrepancy is found on radiologist interpretation. - XR SHOULDER GENERAL 3V OR MORE AP/TRUE AP/OTHER RIGHT - SLING, ARM 2. Neuropathy - ICD9: 355.9, ICD10: G62.9 - SLING, ARM 3. Bursitis of right shoulder - ICD9: 726.10, ICD10: M75.51 Discussed I concur with previous assessment in light of no further workup being done at this point. She is tender at her AC joint and shoulder. In light of no and inciting injury is most likely diagnosis. She is unable to take NSAIDs did have a risk-benefit discussion regarding that with her and recommended she have a conversation with her GI doctor regarding what would be an acceptable choice for an NSAID anti-inflammatory in this situation I did not give her any additional steroids as that did not seem to help either she seemed to be more interested in the Zanaflex to help for sleep. I gave her a few to get her to her primary where her medications are all going to need to be reviewed with her, further workup for any ongoing neuropathy as this could also be coming from her cervical spine. Discussed this will need physical therapy and further workup if does not improve. Sling was given for comfort as she does not seem to find a comfortable position did recommend that she start with light exercises as well and heat no more than 20 minutes at a time per hour. Questions answered and she was discharged home Nicolette Villagomez APRN.JERRY History and Record Review External record(s) reviewed: prior outpatient record, PDMP reviewed and prior labs/imaging. Findings from review of outpatient records: She has a diagnosis of neuropathy and follows with neurology where they had increased her gabapentin for her bilateral lower extremity neuropathy and actually discussed stopping her muscle relaxers which were then reordered by her primary care Findings from review of prior labs/imaging: No significant finding Differential Diagnoses - Bursitis versus AC strain is more likely for the following reason(s): suggested by H&P - Cervical spondylolysis is more likely for the following reason(s): suggested by H&P - Septic bursitis is less likely for the following reason(s): Exam and vitals, H&P not suggestive Additional Tests or Interventions The following medication(s) were considered but not ordered: Olivarez 2 inhibitors, patient declined secondary to history of liver disease Disposition The patient was discharged. Procedures documented in this encounter [facility] 02-04-2025 Telephone encounter Note RICARDO 10/28/24 NOV 02/16/25 Patient phones requesting refills as follows: Requested Prescriptions Pending Prescriptions Disp Refills methocarbamol (ROBAXIN) 500 mg tablet 90 tablet 3 Sig: Take 1 tablet by mouth three times a day. Please review and advise. Zi Jerome MA [facility] 02-04-2025 Miscellaneous Notes RICARDO 10/28/24 NOV 02/16/25 Patient phones requesting refills as follows: Requested Prescriptions Pending Prescriptions Disp Refills methocarbamol (ROBAXIN) 500 mg tablet 90 tablet 3 Sig: Take 1 tablet by mouth three times a day. Please review and advise. Zi Jerome MA documented in this encounter [facility] 01-27-2025 Telephone encounter Note Spoke with patient and notified her of new prescription. Explained to patient that she will have to see her primary to get refills of this medication. Patient states understanding and voices no other concerns at this time. Charlotte Cordero LPN [facility] 01-27-2025 Miscellaneous Notes Spoke with patient and notified her of new prescription. Explained to patient that she will have to see her primary to get refills of this medication. Patient states understanding and voices no other concerns at this time. Charlotte Cordero LPN Zanaflex 4 mg 3 times a day for 2 days is sent into the pharmacy for the patient. After that she will need to go to her primary care physician for any more medication. Dominic Rico Ned called today. : 1970 Allergies: Apap [Acetaminophen] and Ibuprofen (home) [phone] (cell) Reason for call: Patient states she discussed having a muscle prescribed to her however it wasn't prescribed since she currently has a prescription that was given to her by her primary for Robaxin however she only has one or two days left of that and is asking if something could be sent to her pharmacy. Patient last appointment: 01/26/2025 The patients preferred pharmacy has been captured for this encounter? Yes The pharmacy in the profile is the correct pharmacy. Charlotte Cordero LPN Patient called in leaving a message that during her last visit yesterday that the Yovana Stewart talked to her about getting a muscle relaxer but didn't because she is currently on Robaxin 500mg. Patient states she only have 2-3 tablets left of that and doesn't have any refills. Patient is asking if she can get a prescription of a muscle relaxer or a refill on that medication that was originally prescribed by her primary care Aure Carlton. Will call patient to verify pharmacy. Charlotte Cordero LPN documented in this encounter [facility] 01-27-2025 Telephone encounter Note Zanaflex 4 mg 3 times a day for 2 days is sent into the pharmacy for the patient. After that she will need to go to her primary care physician for any more medication. [facility] 01-27-2025 Telephone encounter Note Dominic Jimenez called today. : 1970 Allergies: Apap [Acetaminophen] and Ibuprofen (home) [phone] (cell) Reason for call: Patient states she discussed having a muscle prescribed to her however it wasn't prescribed since she currently has a prescription that was given to her by her primary for Robaxin however she only has one or two days left of that and is asking if something could be sent to her pharmacy. Patient last appointment: 01/26/2025 The patients preferred pharmacy has been captured for this encounter? Yes The pharmacy in the profile is the correct pharmacy. Charlotte Cordero LPN [facility] 01-27-2025 Telephone encounter Note Patient called in leaving a message that during her last visit yesterday that the Yovana Stewart talked to her about getting a muscle relaxer but didn't because she is currently on Robaxin 500mg. Patient states she only have 2-3 tablets left of that and doesn't have any refills. Patient is asking if she can get a prescription of a muscle relaxer or a refill on that medication that was originally prescribed by her primary care Aure Carlton. Will call patient to verify pharmacy. Charlotte Cordero LPN [facility] 01-26-2025 History of Present illness Narrative Radiology Service Progress Note PATIENT NAME: Dominic Jimenez DATE OF SERVICE: January 26, 2025 TIME: 7:40 PM PATIENT IDENTITY VERIFICATION COMPLETED USING TWO (2) IDENTIFIERS: Name and Date of confirmed by patient verbally. FALL SCREENING: Has the patient had 2 falls in the last year or 1 fall with injury or currently using an Ambulatory Assistive Device (Walker, Cane, Wheelchair, Crutches, etc.)? No PATIENT GENDER DATA: Assigned female at . status: : No status: NO. PATIENT RELEVANT IMPLANT DATA REVIEWED: Not Applicable PATIENT PRESENTS WITH AN IMPLANTABLE OR ATTACHED CAR RACER: No RADIOLOGY DEPARTMENT: General X-ray: Exam(s) Completed: Chest X-Ray PERIPHERAL IV DATA: Not applicable SIGNED BY: RT Melanie(Jim) January 26, 2025 7:40 PM documented in this encounter [facility] 01-26-2025 Note HNO ID: [id number] Author: DARIO SULLIVAN RT(R) Service: ? Author Type: Technologist Type: Progress Notes Filed: 01/26/2025 19:41 Note Text: Radiology Service Progress Note PATIENT NAME: Dominic Jimenez DATE OF SERVICE: January 26, 2025 TIME: 7:40 PM PATIENT IDENTITY VERIFICATION COMPLETED USING TWO (2) IDENTIFIERS: Name and Date of confirmed by patient verbally. FALL SCREENING: Has the patient had 2 falls in the last year or 1 fall with injury or currently using an Ambulatory Assistive Device (Walker, Cane, Wheelchair, Crutches, etc.)? No PATIENT GENDER DATA: Assigned female at . status: : No status: NO. PATIENT RELEVANT IMPLANT DATA REVIEWED: Not Applicable PATIENT PRESENTS WITH AN IMPLANTABLE OR ATTACHED CAR RACER: No RADIOLOGY DEPARTMENT: General X-ray: Exam(s) Completed: Chest X-Ray PERIPHERAL IV DATA: Not applicable SIGNED BY: Dario Sullivan, RT(R) January 26, 2025 7:40 PM [facility] 01-26-2025 Instructions Yovana Stewart Jr., EDGER HAND.[facility] - 01/26/2025 1:48 PM EDT I do treat a muscle strain? A muscle strain usually gets better on its own, but may take days to weeks to heal completely. To help with the healing process it is recommended that you: 1. Rest your muscle, avoid movements or activities that cause the pain. 2. Ice or heat the area, you can put a cold gel pack, bag of ice, or bag of frozen vegetables on the painful muscle every two hours for 15 to 20 minutes at a time. If you use an ice bag and there is no cover on it you will need to put a thin piece of material between the ice and your skin. It is recommended that you use ice for the first 6 hours up to two days after an injury. After that consider using heat with the same timeframe. Remember that heat will always feel good but if you leave it on for longer than 20 minutes it will cause more inflammation and you will feel more pain once the heat is stoped. 3. Wrap the muscle with an elastic bandage or other type of wrap if possible. This will help support the muscle. 4. If possible, you may find raising the muscle above the level of your heart. If it is an arm or leg you may place the extremity on a pillow. This is helpful only during the first few days after an injury. 5. Take medicine to reduce the pain and swelling. You may take hmxf-ivj-nhzeufc medicine such as acetaminophen or an NSAID such as ibuprofen, Advil, naproxen Once your pain is better you can gently stretch and exercise the muscle. This will help strengthen the muscle and stop it from getting too stiff. A physical therapist may be helpful with this part of the healing process. Let your muscle heal fully before playing sports or doing other activities that will stress the muscle. If you return to play too early you may injure the muscle again How can I prevent muscle strains? `1. Take time to warm your muscle before you exercise. You can do this by walking or doing another lighte activity. documented in this encounter [facility] 01-26-2025 Note HNO ID: [id number] Author: YOVANA STEWART JR, APRN.CNP Service: ? Author Type: Nurse Practitioner Type: Progress Notes Filed: 01/26/2025 15:08 Note Text: [facility] Subjective Dominic Jimenez is a 54 year old female. Patient presents with: right upper arm pain: Right upper arm pain that radiates into back x 1 week No known injury Also states she has a cough x 1 month 54-year-old female presents today with complaint of right upper arm pain that radiates into her back by 1 week. She denies any recent injury. She is also complaining of a cough by 1 month. She states the cough is worse at night. When asked about shortness of breath she states she has a history of that. The history is provided by the patient. Review of Systems Constitutional: Negative for fever. HENT: Negative for sinus pain and sore throat. Respiratory: Positive for cough, shortness of breath and wheezing. Negative for stridor. Gastrointestinal: Negative for abdominal pain. Musculoskeletal: Positive for myalgias. Skin: Negative for rash. Neurological: Negative for headaches. Objective BP 145/78 Pulse 78 Temp 36.6 ?C (97.8 ?F) Resp 18 Wt 90.7 kg (200 lb) SpO2 99% BMI 29.53 kg/m? Physical Exam Vitals and nursing note reviewed. Constitutional: Appearance: Normal appearance. HENT: Head: Normocephalic and atraumatic. Right Ear: Tympanic membrane normal. Left Ear: Tympanic membrane normal. Nose: Rhinorrhea present. No congestion. Mouth/Throat: Mouth: Mucous membranes are moist. Pharynx: Oropharynx is clear. Eyes: Conjunctiva/sclera: Conjunctivae normal. Cardiovascular: Rate and Rhythm: Normal rate and regular rhythm. Heart sounds: Normal heart sounds. Pulmonary: Effort: Pulmonary effort is normal. Breath sounds: Normal breath sounds. Abdominal: General: Bowel sounds are normal. Palpations: Abdomen is soft. Musculoskeletal: General: Tenderness present. Arms: Comments: Right radial pulse present and strong. There is tenderness to palpation around the bicep and tricep muscles of the right arm. Resisted wrist dorsiflexion and flexion did not cause any pain at the medial lateral epicondyle region of the elbow. Drop arm test was negative. Right shoulder impingement test was positive with pain in the shoulder. Range of motion of right shoulder decreased in all ranges secondary to pain. There is tenderness to palpation of the right supraspinatus muscle. Resisted isometric bicep and tricep contraction are both rated +5/+ sign 5. Skin: General: Skin is warm and dry. Neurological: Mental Status: She is alert and oriented to person, place, and time. Assessment AND Plan GARZA (dyspnea on exertion) Orders: XR CHEST 2V FRONTAL/LAT; Future amoxicillin-clavulanate potassium (AUGMENTIN) 875-125 mg per tablet; Take 1 tablet by mouth every 12 hours for 7 days. Acute cough Based on exam I feel she has some consolidation in the likely left upper lobe. I did prescribe her Augmentin. I did initially consider Z-Santiago and doxycycline however due to interactions with her other meds those were changed to the Augmentin. Orders: XR CHEST 2V FRONTAL/LAT; Future amoxicillin-clavulanate potassium (AUGMENTIN) 875-125 mg per tablet; Take 1 tablet by mouth every 12 hours for 7 days. Benzonatate 200 mg capsule; Take 1 capsule by mouth three times a day as needed for cough for up to 7 days. Acute pain of right shoulder Based on examination I feel patient likely has a bursitis of her right shoulder. I would also can consider an impingement syndrome. I do not feel that there is a neurology component to patient's complaint of pain Orders: predniSONE (DELTASONE) 20 mg tablet; Take 2 tablets by mouth once daily for 5 days. Patient had unmet expectations of pain control. MDM Procedures [facility] 01-26-2025 History of Present illness Narrative Images from the original note were not included. [facility] Subjective Dominic Jimenez is a 54 year old female. Patient presents with: right upper arm pain: Right upper arm pain that radiates into back x 1 week No known injury Also states she has a cough x 1 month 54-year-old female presents today with complaint of right upper arm pain that radiates into her back by 1 week. She denies any recent injury. She is also complaining of a cough by 1 month. She states the cough is worse at night. When asked about shortness of breath she states she has a history of that. The history is provided by the patient. Review of Systems Constitutional: Negative for fever. HENT: Negative for sinus pain and sore throat. Respiratory: Positive for cough, shortness of breath and wheezing. Negative for stridor. Gastrointestinal: Negative for abdominal pain. Musculoskeletal: Positive for myalgias. Skin: Negative for rash. Neurological: Negative for headaches. Objective BP 145/78 Pulse 78 Temp 36.6 C (97.8 F) Resp 18 Wt 90.7 kg (200 lb) SpO2 99% BMI 29.53 kg/m Physical Exam Vitals and nursing note reviewed. Constitutional: Appearance: Normal appearance. HENT: Head: Normocephalic and atraumatic. Right Ear: Tympanic membrane normal. Left Ear: Tympanic membrane normal. Nose: Rhinorrhea present. No congestion. Mouth/Throat: Mouth: Mucous membranes are moist. Pharynx: Oropharynx is clear. Eyes: Conjunctiva/sclera: Conjunctivae normal. Cardiovascular: Rate and Rhythm: Normal rate and regular rhythm. Heart sounds: Normal heart sounds. Pulmonary: Effort: Pulmonary effort is normal. Breath sounds: Normal breath sounds. Abdominal: General: Bowel sounds are normal. Palpations: Abdomen is soft. Musculoskeletal: General: Tenderness present. Arms: Comments: Right radial pulse present and strong. There is tenderness to palpation around the bicep and tricep muscles of the right arm. Resisted wrist dorsiflexion and flexion did not cause any pain at the medial lateral epicondyle region of the elbow. Drop arm test was negative. Right shoulder impingement test was positive with pain in the shoulder. Range of motion of right shoulder decreased in all ranges secondary to pain. There is tenderness to palpation of the right supraspinatus muscle. Resisted isometric bicep and tricep contraction are both rated +5/+ sign 5. Skin: General: Skin is warm and dry. Neurological: Mental Status: She is alert and oriented to person, place, and time. Assessment & Plan GARZA (dyspnea on exertion) Orders: XR CHEST 2V FRONTAL/LAT; Future amoxicillin-clavulanate potassium (AUGMENTIN) 875-125 mg per tablet; Take 1 tablet by mouth every 12 hours for 7 days. Acute cough Based on exam I feel she has some consolidation in the likely left upper lobe. I did prescribe her Augmentin. I did initially consider Z-Santiago and doxycycline however due to interactions with her other meds those were changed to the Augmentin. Orders: XR CHEST 2V FRONTAL/LAT; Future amoxicillin-clavulanate potassium (AUGMENTIN) 875-125 mg per tablet; Take 1 tablet by mouth every 12 hours for 7 days. Benzonatate 200 mg capsule; Take 1 capsule by mouth three times a day as needed for cough for up to 7 days. Acute pain of right shoulder Based on examination I feel patient likely has a bursitis of her right shoulder. I would also can consider an impingement syndrome. I do not feel that there is a neurology component to patient's complaint of pain Orders: predniSONE (DELTASONE) 20 mg tablet; Take 2 tablets by mouth once daily for 5 days. Patient had unmet expectations of pain control. MDM Procedures documented in this encounter [facility] 12-22-2024 Telephone encounter Note Didn't know she was changing primary offices. I already ordered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 - 11.00 k/uL 3.75 3.35 3.81 RBC 3.90 - 5.20 m/uL 3.93 3.85 3.26 Hemoglobin 11.5 - 15.5 g/dL 11.3 10.8 7.7 Hematocrit 36.0 - 46.0 % 34.5 33.5 27.2 MCV 80.0 - 100.0 fL 87.8 87.0 83.4 MCH 26.0 - 34.0 pg 28.8 28.1 23.6 MCHC 30.5 - 36.0 g/dL 32.8 32.2 28.3 RDW-CV 11.5 - 15.0 % 15.6 15.4 16.2 Platelet Count 150 - 400 k/uL 50 48 61 MPV 12.9 -- -- Baso% % 0.5 0.3 Abs Neut (ANC) 1.45 - 7.50 k/uL 2.18 1.85 Abs Lymph 1.00 - 4.00 k/uL 1.20 1.21 Abs [place] <0.87 k/uL 0.30 0.23 Abs Eosin <0.46 k/uL 0.04 0.04 Abs Baso <0.11 k/uL <0.03 <0.03 NRBC /100 WBC 0.0 0.0 Ovalocytes Few Polychromasia Slight Platelet Estimate Decreased HISTORY REVIEWED (electronic chart updated): PAST MEDICAL HISTORY Diagnosis Date Alcoholic cirrhosis (HCC) Alcoholic hepatitis Anemia Clostridium difficile infection COVID-19 virus infection 08/2021 hospitalized Delirium 10/2021 prolonged hospital stay 09/2021-10/2021 at [facility] Depression Esophageal varices (HCC) Fatigue Hepatic encephalopathy (HCC) Neuropathy Splenomegaly Subdural hematoma (HCC) 09/2021 bilateral PAST SURGICAL HISTORY Procedure Laterality Date EGD 04/05/2022 TONSILLECTOMY AND ADENOIDECTOMY HX 1975 No family history on file. Social History Tobacco Use Smoking status: Never Passive exposure: Never Smokeless tobacco: Never Vaping Use Vaping status: Never Used Substance Use Topics Alcohol use: Not Currently Drug use: Not Currently Current Outpatient Medications Medication Sig hydrOXYzine pamoate (VISTARIL) 25 mg capsule TAKE 1 CAPSULE BY MOUTH EVERY 12 HOURS NEEDED FOR ANXIETY gabapentin (NEURONTIN) 800 mg tablet Take 800 mg by mouth three times a day. mirabegron (MYRBETRIQ) 50 mg Tb24 Take 50 mg by mouth daily with breakfast. methocarbamol (ROBAXIN) 500 mg tablet take 1 tablet by mouth three times daily calcium citrate-vitamin D3 (CITRACAL+D) 315 mg-5 mcg (200 unit) tab Take by mouth as directed. cholestyramine (QUESTRAN) 4 gram packet DISSOLVE IN WATER & TAKE 1 POWDER PACKET BY MOUTH TWICEDAILY NEEDED estradiol (ESTRACE) 0.01 % (0.1 mg/gram) vaginal cream INSERT 1 GRAM VAGINALLY THREE TIMES A WEEK BEFORE BED testosterone (VOGELXO) 12.5 mg/ 1.25 gram (1 %) transdermal gel Apply as directed. DULoxetine (CYMBALTA) 60 mg capsule Take 1 capsule by mouth two times a day. citalopram (CELEXA) 20 mg tablet Take 1 tablet by mouth once daily. traZODone (DESYREL) 100 mg tablet Take 2 tablets by mouth daily at bedtime. tiZANidine HCl (ZANAFLEX) 4 mg capsule Take by mouth. progesterone micronized (PROMETRIUM) 100 mg capsule Take by mouth. rifAXIMin (XIFAXAN) 550 mg tablet Take 550 mg by mouth two times a day. lactulose 10 gram/15 mL solution Take 10 [...] 250 mg by mouth once daily. glucosamine/chondr paniagua A sod (GLUCOSAMINE-CHONDROITIN) 750-600 mg tab Take 1 tablet by mouth once daily. Lactobac no.41/Bifidobact no.7 (PROBIOTIC-10 ORAL) Take 1 tablet by mouth once daily. vitamin B complex (B COMPLEX 1 ORAL) Take 1 tablet by mouth once daily. estradiol 0.01% estriol 0.01% topical cream (CPD) Apply 0.1ml to upper inner arm daily. PROGESTERONE MISC Milk Thistle 175 mg tab Take 1 [...] by mouth once daily. For 30 days hxrqqnisdhlz-lsxmrkhu-njhfqqh k-coenzyme Q-10 (DEKAS PLUS) 200 mcg-1,000 mcg-10 [...] Take 5,000 Units by mouth once daily. GEMTESA 75 mg tablet Take 1 tablet by mouth every afternoon. (Patient not taking: Reported on 10/12/2024) No current facility-administered medications for this visit. ALLERGIES Allergen Reactions Apap [Acetaminophen] Contraindication-Medical Surgical Patient states her GI doctor told her not to take this medication due to liver problems Ibuprofen Contraindication-Medical Surgical Patient states her GI doctor told her not to take this medication due to liver problems REVIEW OF SYSTEMS: GENERAL: no recent change in weight, activity level is normal GI: normal appetite, tolerating PO well, BMs normal, and RUQ and RLQ intermittent pain as above [employer]: 2 episodes of vaginal bleeding in the past 3 months PSYCH: + anxiety PHYSICAL EXAMINATION: VIDEO EXAM: (if completed, performed via video enabled technology) GENERAL: alert and appropriate, in no distress, well-hydrated, well nourished, and anxious and tearful at times ASSESSMENT: ASSESSMENT/PLAN: 1. Anemia, unspecified type - ICD9: 285.9, ICD10: D64.9 (primary diagnosis) Uncertain etiology of worsening anemia. Last hemoglobin was 11.3 drawn at [facility] in June whenshe was having an episode of vaginal bleeding, which was possibly related to uterine fibroids. Since then, she has had 1 further episode of vaginal bleeding which was not particularly significant. CBC demonstrating normocytic normochromic anemia with hemoglobin of 7.7. Doubtful this is from the fibroids. She has not noticed any black stool, tarry stool. She has been experiencing some right upper quadrant and, to a lesser extent, right lower quadrant abdominal pain, which she has discussed with her GI doctor. Last EGD and colonoscopy done in April. We will reach out to his office and send lab work over to them for his review, consider possible peptic ulcer disease, anemia secondary to cirrhosis (though hemoglobin has otherwise been fairly stable over the past 2 years.) 2. Neuropathy - ICD9: 355.9, ICD10: G62.9 Continue methocarbamol - METHOCARBAMOL 500 MG TABLET 3. Anxiety - ICD9: 300.00, ICD10: F41.9 Start counseling. Advised to try using hydroxyzine twice a day consistently to see if this helps better control her anxiety. Aure Carlton APRN.[employer] There are no Patient Instructions on file for this visit. I spent a total of 45 minutes on the date of the service which included preparing to see the patient, bgrj-qf-bjda patient care, completing clinical documentation, counseling and educating the patient/family/caregiver, and communicating results to the patient/family/caregiver. Aure Carlton APRN.CNP [facility] Telephone encounter Note * Telephone Encounter - Aure Carlton APRN.CNP - 10/12/2024 9:05 AM EST Needs OV. Last seen 03/2024, canceled appt last week. [facility]11-25-2024 Miscellaneous Notes* Telephone Encounter - Aure Carlton APRN.CNP - 10/12/2024 9:05 AM EST Needs OV. Last seen 03/2024, canceled appt last week. documented in this encounterReg[facility]10-29-2024 Telephone encounter Note * Telephone Encounter - Lorenza Alberto NP - 09/15/2024 11:14 AM EDT Verified with pharmacist 600 mg tid - discontinued. [facility] [id number] Miscellaneous Notes* Telephone Encounter - Lorenza Alberto NP - 09/15/2024 11:14 AM EDT Verified with pharmacist 600 mg tid - discontinued. * Telephone Encounter - Melissa Gotti - 09/15/2024 10:37 AM EDT Emily from [facility] pharmacy called said pt was Rx'd Gabapentin 800mg 1 tablet 3 times daily However, pharmacy needs clarification: pt was dispensed 180 tablets of gabapentin 300mg on 08/30 2 tablets 3 times daily patient garza know to stop this dose, but pharmacy needs to note her OARRS documented in this encounterRay [facility] [id number] Telephone encounter Note* Telephone Encounter - Melissa Gotti - 09/15/2024 10:37 AM EDT Emily from [facility] pharmacy called said pt was Rx'd Gabapentin 800mg 1 tablet 3 times daily However, pharmacy needs clarification: pt was dispensed 180 tablets of gabapentin 300mg on 08/30 2 tablets 3 times daily patient garza know to stop this dose, but pharmacy needs to note her OARRS [facility] HospitalCjsvjtwbvj08-24-2916 Telephone encounter Note* Telephone Encounter - Lorenza Alberto NP - 09/14/2024 12:50 PM EDT Increase gbn 800 mg tid. Rx sent. Stop gbn 600 mg tid. This office does not prescribe robaxin- defer to pcp. Previously discussed with patient to talk with pcp consider discontinue d/t episodes of dizziness, off balance in am. Please schedule follow up in 2 months to evaluate [facility] [id number] Miscellaneous Notes* Telephone Encounter - Lorenza Alberto NP - 09/14/2024 12:50 PM EDT Increase gbn 800 mg tid. Rx sent. Stop gbn 600 mg tid. This office does not prescribe robaxin- defer to pcp. Previously discussed with patient to talk with pcp consider discontinue d/t episodes of dizziness, off balance in am. Please schedule follow up in 2 months to evaluate * Telephone Encounter - Rohini Brown MA - 09/14/2024 10:45 AM EDT Pt called asking for clarification on her medication. Please see previous telephone encounter for medication details. * Telephone Encounter - Juno Jensen MD - 09/11/2024 3:40 PM EDT I'm not sure I understand,, lorenza looks like you saw her last any thoughts? thanks * Telephone Encounter - Rohini Brown MA - 09/08/2024 4:22 PM EDT Pt called sts her liver damage will not be effected by any new medication NF has prescribed. She was told to stop or decrease the Gabapentin because it may cause drowsiness. 2400mg a day is ok to start, but to cut it back when drowsiness occurs. The muscle relaxer Robaxin 500mg is not good for neuropathy. She is asking for a new one to be prescribed. documented in this encounterRay County Memorial [id number] Telephone encounter Note* Telephone Encounter - Rohini Brown MA - 09/14/2024 10:45 AM EDT Pt called asking for clarification on her medication. Please see previous telephone encounter for medication details. [facility] HospitalGsbsshdrcm39-97-5469 Telephone encounter Note* Telephone Encounter - Juno Jensen MD - 09/11/2024 3:40 PM EDT I'm not sure I understand,, lorenza looks like you saw her last any thoughts? thanks [facility] [id number] Telephone encounter Note* Telephone Encounter - Rohini Brown MA - 09/08/2024 4:22 PM EDT Pt called sts her liver damage will not be effected by any new medication NF has prescribed. She was told to stop or decrease the Gabapentin because it may cause drowsiness. 2400mg a day is ok to start, but to cut it back when drowsiness occurs. The muscle relaxer Robaxin 500mg is not good for neuropathy. She is asking for a new one to be prescribed. [facility] [id number] Telephone encounter Note* Telephone Encounter - Melissa Gotti - 08/05/2024 4:06 PM EDT Patient said she needed a refill of gabapentin 300mg, but she did not know a script had been sent already in May to the [facility] pharmacy in [place], [place] She is contacting the pharmacy for refill [facility] HospitalCsmtqlccvr57-10-3704 Miscellaneous Notes* Telephone Encounter - Melissa Gotti - 08/05/2024 4:06 PM EDT Patient said she needed a refill of gabapentin 300mg, but she did not know a script had been sent already in May to the [facility] pharmacy in [place], [place] She is contacting the pharmacy for refill documented in this encounterRay County Memorial HospitalQrdtxbntfv84-39-6943 Note* Addendum Note - Yovana Stewart Jr., APRN.CNP - 07/08/2024 11:03 AM EDTAddended by: YOVANA STEWART on: 07/08/2024 11:03 AM Modules accepted: Orders [facility]08-21-2024 Miscellaneous Notes* Addendum Note - Yovana Stewart Jr., APRN.CNP - 07/08/2024 11:03 AM EDTAddended by: YOVANA STEWART on: 07/08/2024 11:03 AM Modules accepted: Orders * Addendum Note - Yovana Stewart Jr., APRN.CNP - 07/08/2024 10:55 AM EDT Addended by: YOVANA STEWART on: 07/08/2024 10:55 AM Modules accepted: Orders documented in this encounterRegency [facility]08-21-2024 Instructions* Patient Instructions* Yovana Stewart Jr., APRN.CNP - 07/08/2024 10:57 AM EDT Your examination findings while suggestive of a UTI your urine dip does not show any leuks. I am performing a urine culture for confirmation. However, you are to go immediately to the emergency room if symptoms continue to increase or do not resolve. documented in this encounterReg[facility]08-21-2024 Note* Addendum Note - Yovana Stewart Jr., APRN.CNP - 07/08/2024 10:55 AM EDTAddended by: YOVANA STEWART on: 07/08/2024 10:55 AM Modules accepted: Orders [facility]08-21-2024 NoteHNO ID: [id number] Author: YOVANA STEWART JR, APRN.CNP Service: ? Author Type: Nurse Practitioner Type: Progress Notes Filed: 07/08/2024 11:03 Note Text: Dominic Jimenez is a 54 year old female who presents with Urinary Problem (Pain with urination/Discolored uirne //Started 2-3 days ago /); Cough (Dx with covid. /Was seen here on Saturday /); and Pain, Back (Started 2-3 days ago /) 54-year-old female presents today with a complaint of urinary frequency and urgency for the past 2 to 3 days. She states it does not burn when she urinates however it really hurts. The history is provided by the patient. Cough Associated symptoms include sore throat. PAST MEDICAL HISTORY No date: Alcoholic cirrhosis (HCC) No date: Alcoholic hepatitis No date: Anemia No date: Clostridium difficile infection 08/2021: COVID-19 virus infection Comment: hospitalized 10/2021: Delirium Comment: prolonged hospital stay 09/2021-10/2021 at [facility] No date: Depression No date: Esophageal varices (HCC) No date: Fatigue No date: Hepatic encephalopathy (HCC) No date: Neuropathy No date: Splenomegaly 09/2021: Subdural hematoma (HCC) Comment: bilateral ACTIVE PROBLEM LIST Depression Hyperlipidemia Hepatic Cirrhosis (Hcc) Neuropathy Wernicke's Disease Alcoholic Cirrhosis (Hcc) Insomnia Anxiety Vitamin D Deficiency, Unspecified Polyneuropathy, Unspecified Current Outpatient Medications Medication Sig Dispense Refill calcium citrate-vitamin D3 (CITRACAL+D) 315 mg-5 mcg (200 unit) tab Take by mouth as directed. cholestyramine (QUESTRAN) 4 gram packet DISSOLVE IN WATER AND TAKE 1 POWDER PACKET BY MOUTH TWICE DAILY NEEDED estradiol (ESTRACE) 0.01 % (0.1 mg/gram) vaginal cream INSERT 1 GRAM VAGINALLY THREE TIMES A WEEK BEFORE BED testosterone (VOGELXO) 12.5 mg/ 1.25 gram (1 %) transdermal gel Apply as directed. hydrOXYzine pamoate (VISTARIL) 25 mg capsule Take 1 capsule by mouth every 12 hours as needed for anxiety. 60 capsule 3 methocarbamol (ROBAXIN) 500 mg tablet take 1 tablet by mouth three times daily 90 tablet 3 DULoxetine (CYMBALTA) 60 mg capsule Take 1 capsule by mouth two times a day. 180 capsule 3 citalopram (CELEXA) 20 mg tablet Take 1 tablet by mouth once daily. 90 tablet 3 traZODone (DESYREL) 100 mg tablet Take 2 tablets by mouth daily at bedtime. 180 tablet 3 tiZANidine HCl (ZANAFLEX) 4 mg capsule Take by mouth. progesterone micronized (PROMETRIUM) 100 mg capsule Take by mouth. rifAXIMin (XIFAXAN) 550 mg tablet Take 550 mg by mouth two times a day. GEMTESA 75 mg tablet Take 1 tablet by mouth every afternoon. lactulose 10 gram/15 mL solution Take 10 [...] 250 mg by mouth once daily. glucosamine/chondr paniagua A sod (GLUCOSAMINE-CHONDROITIN) 750-600 mg tab Take 1 tablet by mouth once daily. Lactobac no.41/Bifidobact no.7 (PROBIOTIC-10 ORAL) Take 1 tablet by mouth once daily. vitamin B complex (B COMPLEX 1 ORAL) Take 1 tablet by mouth once daily. estradiol 0.01% estriol 0.01% topical cream (CPD) Apply 0.1ml to upper inner arm daily. PROGESTERONE MISC Milk Thistle 175 mg tab Take 1 [...] by mouth once daily. For 30 days jzvqlwbdemjf-drmcwtnf-pqdyayw k-coenzyme Q-10 (DEKAS PLUS) 200 mcg-1,000 mcg-10 [...] Take 1 capsule by mouth three times a day for 180 days. 270 capsule 1 gabapentin (NEURONTIN) 100 mg capsule Take 1 capsule by mouth at bedtime as needed for up to 90 days. 30 capsule 2 No current facility-administered medications for this visit. Social History Tobacco Use Smoking status: Never Passive exposure: Never Smokeless tobacco: Never Vaping Use Vaping status: Never Used Substance Use Topics Alcohol use: Not Currently Drug use: Not Currently Alcohol Use: Not Currently Tobacco Use: Never No family history on file. Review of Systems Constitutional: Negative for diaphoresis and fever. HENT: Positive for sore throat. Respiratory: Positive for cough. Gastrointestinal: Negative for nausea (more content not included)...[facility]08-21-2024 History of Present illness Narrative* Yovana Stewart Jr., EDGER HAND.OFFAL ICER POULTRY - 07/08/2024 9:36 AM EDT Dominic Jimenez is a 54 year old female who presents with Urinary Problem (Pain with urination/Discolored uirne //Started 2-3 days ago /); Cough (Dx with covid. /Was seen here on Saturday /); and Pain, Back (Started 2-3 days ago /) 54-year-old female presents today with a complaint of urinary frequency and urgency for the past 2 to 3 days. She states it does not burn when she urinates however it really hurts. The history is provided by the patient. Cough Associated symptoms include sore throat. PAST MEDICAL HISTORY No date: Alcoholic cirrhosis (HCC) No date: Alcoholic hepatitis No date: Anemia No date: Clostridium difficile infection 08/2021: COVID-19 virus infection Comment: hospitalized 10/2021: Delirium Comment: prolonged hospital stay 09/2021-10/2021 at [facility] No date: Depression No date: Esophageal varices (HCC) No date: Fatigue No date: Hepatic encephalopathy (HCC) No date: Neuropathy No date: Splenomegaly 09/2021: Subdural hematoma (HCC) Comment: bilateral ACTIVE PROBLEM LIST Depression Hyperlipidemia Hepatic Cirrhosis (Hcc) Neuropathy Wernicke's Disease Alcoholic Cirrhosis (Hcc) Insomnia Anxiety Vitamin D Deficiency, Unspecified Polyneuropathy, Unspecified Current Outpatient Medications Medication Sig Dispense Refill calcium citrate-vitamin D3 (CITRACAL+D) 315 mg-5 mcg (200 unit) tab Take by mouth as directed. cholestyramine (QUESTRAN) 4 gram packet DISSOLVE IN WATER & TAKE 1 POWDER PACKET BY MOUTH TWICEDAILY NEEDED estradiol (ESTRACE) 0.01 % (0.1 mg/gram) vaginal cream INSERT 1 GRAM VAGINALLY THREE TIMES A WEEK BEFORE BED testosterone (VOGELXO) 12.5 mg/ 1.25 gram (1 %) transdermal gel Apply as directed. hydrOXYzine pamoate (VISTARIL) 25 mg capsule Take 1 capsule by mouth every 12 hours as needed for anxiety. 60 capsule 3 methocarbamol (ROBAXIN) 500 mg tablet take 1 tablet by mouth three times daily 90 tablet 3 DULoxetine (CYMBALTA) 60 mg capsule Take 1 capsule by mouth two times a day. 180 capsule 3 citalopram (CELEXA) 20 mg tablet Take 1 tablet by mouth once daily. 90 tablet 3 traZODone (DESYREL) 100 mg tablet Take 2 tablets by mouth daily at bedtime. 180 tablet 3 tiZANidine HCl (ZANAFLEX) 4 mg capsule Take by mouth. progesterone micronized (PROMETRIUM) 100 mg capsule Take by mouth. rifAXIMin (XIFAXAN) 550 mg tablet Take 550 mg by mouth two times a day. GEMTESA 75 mg tablet Take 1 tablet by mouth every afternoon. lactulose 10 gram/15 mL solution Take 10 [...] 250 mg by mouth once daily. glucosamine/chondr paniagua A sod (GLUCOSAMINE-CHONDROITIN) 750-600 mg tab Take 1 tablet by mouth once daily. Lactobac no.41/Bifidobact no.7 (PROBIOTIC-10 ORAL) Take 1 tablet by mouth once daily. vitamin B complex (B COMPLEX 1 ORAL) Take 1 tablet by mouth once daily. estradiol 0.01% estriol 0.01% topical cream (CPD) Apply 0.1ml to upper inner arm daily. PROGESTERONE MISC Milk Thistle 175 mg tab Take 1 [...] by mouth once daily. For 30 days ekjnwvvgswgk-simtvtef-qowqane k-coenzyme Q-10 (DEKAS PLUS) 200 mcg-1,000 mcg-10 [...] Take 1 capsule by mouth three times a day for 180 days. 270 capsule 1 gabapentin (NEURONTIN) 100 mg capsule Take 1 capsule by mouth at bedtime as needed for up to 90 days. 30 capsule 2 No current facility-administered medications for this visit. Social History Tobacco Use Smoking status: Never Passive exposure: Never Smokeless tobacco: Never Vaping Use Vaping status: Never Used Substance Use Topics Alcohol use: Not Currently Drug use: Not Currently Alcohol Use: Not Currently Tobacco Use: Never No family history on file. Review of Systems Constitutional: Negative for diaphoresis and fever. HENT: Positive for sore throat. Respiratory: Positive for cough. Gastrointestinal: Negative for nausea and vomiting. Genitourinary: Positive for dysuria, flank pain, frequency and urgency. Negative for hematuria. BP 118/79 Pulse 71 Temp (Src) 97.6 (Temporal) Resp 18 Wt 195 lb (88.5kg) SpO2 97% Physical Exam Vitals and nursing note reviewed. Constitutional: Appearance: Normal appearance. She is not ill-appearing or diaphoretic. HENT: Head: Normocephalic and atraumatic. Eyes: Conjunctiva/sclera: Conjunctivae normal. Cardiovascular: Rate and Rhythm: Normal rate and regular rhythm. Heart sounds: Normal heart sounds. Pulmonary: Effort: Pulmonary effort is normal. Breath sounds: Normal breath sounds. Abdominal: General: Bowel sounds are normal. Palpations: Abdomen is soft. Tenderness: There is abdominal tenderness. There is right CVA tenderness and left CVA tenderness. Comments: Suprapubic tenderness noted Skin: General: Skin is warm and dry. Neurological: Mental Status: She is alert and oriented to person, place, and time. Psychiatric: Behavior: Behavior normal. Dip is negative for UTI. Urine culture ordered ASSESSMENT/PLAN: 1. Dysuria - ICD9: 788.1, ICD10: R30.0 (primary diagnosis) - URINALYSIS, DIPSTICK ONLY - URINE CULTURE 2. Urgency of urination - ICD9: 788.63, ICD10: R39.15 - URINE CULTURE Patient presented with a 2 to 3-day history of urinary tract infection type symptoms. Patient had positive exam findings of CVA tenderness bilaterally and suprapubic tenderness however her urine dip was negative for UTI. Due to patient's history I recommended she follow-up at an emergency room at this time. Patient declined the emergency room and I prescribed her Bactrim. Patient was informed that I will do a urine culture however her symptoms continue to increase she will need to go immediately to an emergency room. Patient stated understanding and agreed to plan. Yovana Stewart Jr, APRN.OFFAL ICER POULTRY documented in this encounterReg[facility] NoteHNO ID: [id number] Author: ALBA HOLDER APRN.JERRY Service: ? Author Type: Nurse Practitioner Type: Progress Notes Filed: 07/06/2024 09:02 Note Text: Dominic Jimenez is a 54 year old female who presents with Cough (Sore throat, head pressure, ear pain, dizzy/Started yesterday/Son has covid) 54-year-old female presents today with dry cough/sore throat that started yesterday. She denies any fevers. Patient states that her son tested positive for COVID. Patient states she has had COVID in the past. Patient states that she is immune compromised with liver concerns and cannot take Tylenol or ibuprofen. She denies any vomiting or diarrhea. No shortness of breath. Cough Associated symptoms include chills and sore throat. PAST MEDICAL HISTORY No date: Alcoholic cirrhosis (HCC) No date: Alcoholic hepatitis No date: Anemia No date: Clostridium difficile infection 08/2021: COVID-19 virus infection Comment: hospitalized 10/2021: Delirium Comment: prolonged hospital stay 09/2021-10/2021 at [facility] No date: Depression No date: Esophageal varices (HCC) No date: Fatigue No date: Hepatic encephalopathy (HCC) No date: Neuropathy No date: Splenomegaly 09/2021: Subdural hematoma (HCC) Comment: bilateral ACTIVE PROBLEM LIST Depression Hyperlipidemia Hepatic Cirrhosis (Hcc) Neuropathy Wernicke's Disease Alcoholic Cirrhosis (Hcc) Insomnia Anxiety Vitamin D Deficiency, Unspecified Polyneuropathy, Unspecified Current Outpatient Medications Medication Sig Dispense Refill calcium citrate-vitamin D3 (CITRACAL+D) 315 mg-5 mcg (200 unit) tab Take by mouth as directed. cholestyramine (QUESTRAN) 4 gram packet DISSOLVE IN WATER AND TAKE 1 POWDER PACKET BY MOUTH TWICE DAILY NEEDED estradiol (ESTRACE) 0.01 % (0.1 mg/gram) vaginal cream INSERT 1 GRAM VAGINALLY THREE TIMES A WEEK BEFORE BED testosterone (VOGELXO) 12.5 mg/ 1.25 gram (1 %) transdermal gel Apply as directed. hydrOXYzine pamoate (VISTARIL) 25 mg capsule Take 1 capsule by mouth every 12 hours as needed for anxiety. 60 capsule 3 methocarbamol (ROBAXIN) 500 mg tablet take 1 tablet by mouth three times daily 90 tablet 3 DULoxetine (CYMBALTA) 60 mg capsule Take 1 capsule by mouth two times a day. 180 capsule 3 citalopram (CELEXA) 20 mg tablet Take 1 tablet by mouth once daily. 90 tablet 3 traZODone (DESYREL) 100 mg tablet Take 2 tablets by mouth daily at bedtime. 180 tablet 3 tiZANidine HCl (ZANAFLEX) 4 mg capsule Take by mouth. progesterone micronized (PROMETRIUM) 100 mg capsule Take by mouth. rifAXIMin (XIFAXAN) 550 mg tablet Take 550 mg by mouth two times a day. GEMTESA 75 mg tablet Take 1 tablet by mouth every afternoon. lactulose 10 gram/15 mL solution Take 10 [...] 250 mg by mouth once daily. glucosamine/chondr paniagua A sod (GLUCOSAMINE-CHONDROITIN) 750-600 mg tab Take 1 tablet by mouth once daily. Lactobac no.41/Bifidobact no.7 (PROBIOTIC-10 ORAL) Take 1 tablet by mouth once daily. vitamin B complex (B COMPLEX 1 ORAL) Take 1 tablet by mouth once daily. estradiol 0.01% estriol 0.01% topical cream (CPD) Apply 0.1ml to upper inner arm daily. PROGESTERONE MISC Milk Thistle 175 mg tab Take 1 [...] by mouth once daily. For 30 days pbdyojzeduqv-ewnvhshx-jogggav k-coenzyme Q-10 (DEKAS PLUS) 200 mcg-1,000 mcg-10 [...] Take 1 capsule by mouth three times a day for 180 days. 270 capsule 1 gabapentin (NEURONTIN) 100 mg capsule Take 1 capsule by mouth at bedtime as needed for up to 90 days. 30 capsule 2 No current facility-administered medications for this visit. Social History Tobacco Use Smoking status: Never Passive exposure: Never Smokeless tobacco: Never Vaping Use Vaping status: Never Used Substance Use Topics Alcohol use: Not Currently Drug use: Not Currently Alcohol Use: Not Currently Tobacco Use: Never History reviewed. No pertinent family history. Review of Systems Constitutional: Positive for chills. Negative for fever. HENT: (more content not included)...[facility]08-19-2024 History of Present illness Narrative* Alba Holder APRN.[employer]AL ICER POULTRY - 07/06/2024 9:00 AM EDT Dominic Jimenez is a 54 year old female who presents with Cough (Sore throat, head pressure, ear pain,dizzy/Started yesterday/Son has covid) 54-year-old female presents today with dry cough/sore throat that started yesterday. She denies anyfevers. Patient states that her son tested positive for COVID. Patient states she has had COVID in the past. Patient states that she is immune compromised with liver concerns and cannot take Tylenol or ibuprofen. She denies any vomiting or diarrhea. No shortness of breath. Cough Associated symptoms include chills and sore throat. PAST MEDICAL HISTORY No date: Alcoholic cirrhosis (HCC) No date: Alcoholic hepatitis No date: Anemia No date: Clostridium difficile infection 08/2021: COVID-19 virus infection Comment: hospitalized 10/2021: Delirium Comment: prolonged hospital stay 09/2021-10/2021 at [facility] No date: Depression No date: Esophageal varices (HCC) No date: Fatigue No date: Hepatic encephalopathy (HCC) No date: Neuropathy No date: Splenomegaly 09/2021: Subdural hematoma (HCC) Comment: bilateral ACTIVE PROBLEM LIST Depression Hyperlipidemia Hepatic Cirrhosis (Hcc) Neuropathy Wernicke's Disease Alcoholic Cirrhosis (Hcc) Insomnia Anxiety Vitamin D Deficiency, Unspecified Polyneuropathy, Unspecified Current Outpatient Medications Medication Sig Dispense Refill calcium citrate-vitamin D3 (CITRACAL+D) 315 mg-5 mcg (200 unit) tab Take by mouth as directed. cholestyramine (QUESTRAN) 4 gram packet DISSOLVE IN WATER & TAKE 1 POWDER PACKET BY MOUTH TWICEDAILY NEEDED estradiol (ESTRACE) 0.01 % (0.1 mg/gram) vaginal cream INSERT 1 GRAM VAGINALLY THREE TIMES A WEEK BEFORE BED testosterone (VOGELXO) 12.5 mg/ 1.25 gram (1 %) transdermal gel Apply as directed. hydrOXYzine pamoate (VISTARIL) 25 mg capsule Take 1 capsule by mouth every 12 hours as needed for anxiety. 60 capsule 3 methocarbamol (ROBAXIN) 500 mg tablet take 1 tablet by mouth three times daily 90 tablet 3 DULoxetine (CYMBALTA) 60 mg capsule Take 1 capsule by mouth two times a day. 180 capsule 3 citalopram (CELEXA) 20 mg tablet Take 1 tablet by mouth once daily. 90 tablet 3 traZODone (DESYREL) 100 mg tablet Take 2 tablets by mouth daily at bedtime. 180 tablet 3 tiZANidine HCl (ZANAFLEX) 4 mg capsule Take by mouth. progesterone micronized (PROMETRIUM) 100 mg capsule Take by mouth. rifAXIMin (XIFAXAN) 550 mg tablet Take 550 mg by mouth two times a day. GEMTESA 75 mg tablet Take 1 tablet by mouth every afternoon. lactulose 10 gram/15 mL solution Take 10 [...] 250 mg by mouth once daily. glucosamine/chondr paniagua A sod (GLUCOSAMINE-CHONDROITIN) 750-600 mg tab Take 1 tablet by mouth once daily. Lactobac no.41/Bifidobact no.7 (PROBIOTIC-10 ORAL) Take 1 tablet by mouth once daily. vitamin B complex (B COMPLEX 1 ORAL) Take 1 tablet by mouth once daily. estradiol 0.01% estriol 0.01% topical cream (CPD) Apply 0.1ml to upper inner arm daily. PROGESTERONE MISC Milk Thistle 175 mg tab Take 1 [...] by mouth once daily. For 30 days mhmitelthfrm-icbndiyi-salqnpu k-coenzyme Q-10 (DEKAS PLUS) 200 mcg-1,000 mcg-10 [...] Take 1 capsule by mouth three times a day for 180 days. 270 capsule 1 gabapentin (NEURONTIN) 100 mg capsule Take 1 capsule by mouth at bedtime as needed for up to 90 days. 30 capsule 2 No current facility-administered medications for this visit. Social History Tobacco Use Smoking status: Never Passive exposure: Never Smokeless tobacco: Never Vaping Use Vaping status: Never Used Substance Use Topics Alcohol use: Not Currently Drug use: Not Currently Alcohol Use: Not Currently Tobacco Use: Never History reviewed. No pertinent family history. Review of Systems Constitutional: Positive for chills. Negative for fever. HENT: Positive for sore throat. Respiratory: Positive for cough. All other systems reviewed and are negative. BP 113/70 Pulse 88 Temp 99.1 Resp 18 SpO2 100% Physical Exam Vitals and nursing note reviewed. Constitutional: General: She is not in acute distress. Appearance: Normal appearance. She is normal weight. She is not ill-appearing, toxic-appearing or diaphoretic. HENT: Head: Normocephalic. Right Ear: Tympanic membrane, ear canal and external ear normal. Left Ear: Tympanic membrane, ear canal and external ear normal. Nose: Nose normal. No congestion or rhinorrhea. Mouth/Throat: Mouth: Mucous membranes are moist. Pharynx: Oropharynx is clear. No oropharyngeal exudate or posterior oropharyngeal erythema. Cardiovascular: Rate and Rhythm: Normal rate and regular rhythm. Pulses: Normal pulses. Heart sounds: Normal heart sounds. Pulmonary: Effort: Pulmonary effort is normal. No respiratory distress. Breath sounds: Normal breath sounds. No stridor. No wheezing, rhonchi or rales. Chest: Chest wall: No tenderness. Musculoskeletal: Cervical back: Normal range of motion. No rigidity or tenderness. Lymphadenopathy: Cervical: No cervical adenopathy. Skin: General: Skin is warm and dry. Capillary Refill: Capillary refill takes less than 2 seconds. Neurological: Mental Status: She is alert. Procedures ASSESSMENT/PLAN: 1. Viral illness - ICD9: 079.99, ICD10: B34.9 - Discussed viral etiology and rationale for treatment. - Symptomatic treatment with prn analgesia - Supportive care with fluids and rest - COVID & INFLUENZA A/B & RSV NAAT, EXPEDITED If worsening of condition shortness or breath, fever/chill please go to ER for evaluation. Alba Holder APRN.JERRY This note was partially generated using [employer] voice recognition system, and there may be some incorrect words, spellings, and punctuation that were not noted in checking the note before saving. documented in this encounterRegency [facility]08-19-2024 Instructions* Patient Instructions* Alba Holder APRN.JERRY - 07/06/2024 8:46 AM EDT If you can't take these medications would contact your specialist to see what agents you can use. Body aches/Pain/Fever Acetaminophen/Tylenol not to exceed 3000mg in a 24 hour period and or Ibuprofen/Motrin 600mg every 6 hours not to exceed 2400mg in a 24 hour period if no history of gastrointestinal bleeding or ulcers for pain/discomfort of fever. Sore throat: Warm beverages with honey, salt water gargles, Chloraseptic spray, throat lozenges. Congestion: Over the counter medications like Tylenol Cold and Flu, Theraflu or Sudafed. Nasal sprays like Flonase or normal saline can also help. Coricidin for patient with Hypertension (high blood pressure) If any worsening of condition please be re-evaluated if having shortness of breath or not able to keep down fluids please go to the emergency room. documented in this encounterRegency Hospital [facility]07-08-2024 Telephone encounter Note * Telephone Encounter - Kailey Greene MA - 05/25/2024 3:11 PM EDT Pt called stating she took her bedtime meds on accident this morning. She wants to know if she can retake them for tonight as prescribe? She does say she tried regurgitating meds but was unsuccessful. [facility]07-08-2024 Miscellaneous Notes* Telephone Encounter - Kailey Greene MA - 05/25/2024 3:11 PM EDT Pt called stating she took her bedtime meds on accident this morning. She wants to know if she can retake them for tonight as prescribe? She does say she tried regurgitating meds but was unsuccessful. documented in this encounterRegency Hospital [facility]06-11-2024 Miscellaneous Notes* Perioperative Nursing Note - Alba Templeton RN - 04/28/2024 1:[address] Scott at bedside and informed pt to repeat colonoscopy in 10 years. * Op Note - Radhika Scott MD - 04/28/2024 12:22 PM EDT [facility] Jim[facility] Procedure Date: 04/28/2024 12:22 PM Gender: Female Date of : 1970 Age: 54 Admit Type: Outpatient Note Status: Finalized Endoscopist: Radhika Scott MD, [id number] Procedure: Upper GI endoscopy Indications: Cirrhosis rule out esophageal varices Findings: Grade I varices were found in the lower third of the esophagus. Diffuse mild inflammation characterized by congestion (edema) and erythema was found in the gastric body and in the gastric antrum. Biopsies were taken with a cold forceps for histology. The examined duodenum was normal. Impression: - Grade I esophageal varices. - Gastritis. Biopsied. - Normal examined duodenum. Recommendation: - Patient has a contact number available for emergencies. The signs and symptoms of potential delayed complications were discussed with the patient. Return to normal activities tomorrow. Written discharge instructions were provided to the patient. - Resume previous diet. - Continue present medications. - Await pathology results. - Repeat upper endoscopy in 3 years for surveillance. Referring MD: Aure Carlton Medicines: Monitored Anesthesia Care, See the Anesthesia note for documentation of the administered medications Procedure: Pre-Anesthesia Assessment: - Prior to the procedure, a History and Physical was performed, and patient medications and allergies were reviewed. The patient's tolerance of previous anesthesia was also reviewed. The risks and benefits of the procedure and the sedation options and risks were discussed with the patient. All questions were answered, and informed consent was obtained. Prior Anticoagulants: The patient has taken no anticoagulant or antiplatelet agents. ASA Grade Assessment: III - A patient with severe systemic disease. After reviewing the risks and benefits, the patient was deemed in satisfactory condition to undergo the procedure. After obtaining informed consent, the endoscope was passed under direct vision. Throughout the procedure, the patient's blood pressure, pulse, and oxygen saturations were monitored continuously. The Endoscope was introduced through the mouth, and advanced to the second part of duodenum. The upper GI endoscopy was accomplished without difficulty. The patient tolerated the procedure well. Complications: No immediate complications. Procedure Code(s): --- Professional --- 57461, Esophagogastroduodenoscopy, flexible, transoral; with biopsy, single or multiple --- Technical --- 40164, Esophagogastroduodenoscopy, flexible, transoral; with biopsy, single or multiple Diagnosis Code(s): --- Professional --- K74.60, Unspecified cirrhosis of liver I85.10, Secondary esophageal varices without bleeding K29.70, Gastritis, unspecified, without bleeding --- Technical --- K74.60, Unspecified cirrhosis of liver I85.10, Secondary esophageal varices without bleeding K29.70, Gastritis, unspecified, without bleeding CPT copyright 2021 [employer]. All rights reserved. The codes documented in this report are preliminary and upon aerospace project engineer review may be revised to meet current compliance requirements. Attending Participation: I personally performed the entire procedure. Radhika Scott MD 04/28/2024 12:54:21 PM This report has been signed electronically. Number of Addenda: 0 Note Initiated On: 04/28/2024 12:22 PM * Op Note - Radhika Scott MD - 04/28/2024 12:19 PM EDT [facility]: Dominic Jimenez Procedure Date: 04/28/2024 12:19 PM Gender: Female Date of : 1970 Age: 54 Admit Type: Outpatient Note Status: Finalized Endoscopist: Radhika Scott MD, [id number] Procedure: Colonoscopy Indications: Screening for colorectal malignant neoplasm Findings: Multiple medium-mouthed diverticula were found in the left colon. Internal hemorrhoids were found during retroflexion. The hemorrhoids were small. Impression: - Diverticulosis in the left colon. - Internal hemorrhoids. - No specimens collected. Recommendation: - Patient has a contact number available for emergencies. The signs and symptoms of potential delayed complications were discussed with the patient. Return to normal activities tomorrow. Written discharge instructions were provided to the patient. - Resume previous diet. - Continue present medications. - Repeat colonoscopy is not recommended due to current age (66 years or older) for surveillance. - Return to GI office in 3 months. Referring MD: Aure Carlton Medicines: Monitored Anesthesia Care, See the Anesthesia note for documentation of the administered medications Procedure: Pre-Anesthesia Assessment: - Prior to the procedure, a History and Physical was performed, and patient medications and allergies were reviewed. The patient's tolerance of previous anesthesia was also reviewed. The risks and benefits of the procedure and the sedation options and risks were discussed with the patient. All questions were answered, and informed consent was obtained. Prior Anticoagulants: The patient has taken no anticoagulant or antiplatelet agents. ASA Grade Assessment: III - A patient with severe systemic disease. After reviewing the risks and benefits, the patient was deemed in satisfactory condition to undergo the procedure. After I obtained informed consent, the scope was passed under direct vision. Throughout the procedure, the patient's blood pressure, pulse, and oxygen saturations were monitored continuously. The Colonoscope was introduced through the anus and advanced to the cecum, identified by appendiceal orifice and ileocecal valve. The colonoscopy was performed without difficulty. The patient tolerated the procedure well. The quality of the bowel preparation was good. The ileocecal valve, appendiceal orifice, and rectum were photographed. 2 right colon views obtained Complications: No immediate complications. Procedure Code(s): --- Professional --- G0121, Colorectal cancer screening; colonoscopy on individual not meeting criteria for high risk --- Technical --- G0121, Colorectal cancer screening; colonoscopy on individual not meeting criteria for high risk Diagnosis Code(s): --- Professional --- Z12.11, Encounter for screening for malignant neoplasm of colon K64.8, Other hemorrhoids K57.30, Diverticulosis of large intestine without perforation or abscess without bleeding --- Technical --- Z12.11, Encounter for screening for malignant neoplasm of colon K64.8, Other hemorrhoids K57.30, Diverticulosis of large intestine without perforation or abscess without bleeding CPT copyright 2021 [employer]. All rights reserved. The codes documented in this report are preliminary and upon aerospace project engineer review may be revised to meet current compliance requirements. Attending Participation: I personally performed the entire procedure. Radhika Scott MD 04/28/2024 1:26:18 PM This report has been signed electronically. Number of Addenda: 0 Note Initiated On: 04/28/2024 12:19 PM documented in this encounterSKing[facility] [id number] Note* Perioperative Nursing Note - Alba Templeton RN - 04/28/2024 1:[address] Scott at bedside and informed pt to repeat colonoscopy in 10 years. [id number] Note* Perioperative Nursing Note - Alba Templeton RN - 04/28/2024 1:[address] Sctot at bedside and informed pt to repeat colonoscopy in 10 years. [id number] NotePatient: Dominic Jimenez Procedure Summary Date: 04/28/24 Room / Location: [place] [address] / [facility] Gastroenterology Anesthesia Start: 1223 Anesthesia Stop: 1328 Procedures: COLONOSCOPY ESOPHAGOGASTRODUODENOSCOPY DIAGNOSTIC Diagnosis: Esophageal varices without bleeding (HCC) Unspecified cirrhosis of liver (HCC) Providers: Radhika Scott MD Responsible Provider: James Amaral MD Anesthesia Type: TIVA ASA Status: 3 Anesthesia Type: TIVA Vitals Value Taken Time BP 100/68 04/28/24 1328 Temp 97.6 04/28/24 1328 Pulse 81 04/28/24 1328 Resp 18 04/28/24 1328 SpO2 98 04/28/24 1328 Anesthesia Post Evaluation Patient location during evaluation: PACU Patient participation: complete - patient participated Level of consciousness: awake and alert Pain management: satisfactory to patient Airway patency: patent Dental Injury: no Cardiovascular status: acceptable, blood pressure returned to baseline and hemodynamically stable Respiratory status: acceptable and spontaneous ventilation Hydration status: euvolemic Nausea/Vomiting: controlled No notable events documented. Patient can be discharged once all PACU criteria has been met.[facility]06-11-2024 NotePatient: Dominic Jimenez Procedure Summary Date: 04/28/24 Room / Location: [place] [address] / [facility] Gastroenterology Anesthesia Start: 1223 Anesthesia Stop: Procedures: COLONOSCOPY ESOPHAGOGASTRODUODENOSCOPY DIAGNOSTIC Diagnosis: Esophageal varices without bleeding (HCC) Unspecified cirrhosis of liver (HCC) Providers: Radhika Scott MD Responsible Provider: James Amaral MD Anesthesia Type: TIVA ASA Status: 3 Anesthesia Type: TIVA Vitals Value Taken Time BP 100/65 04/28/24 1327 Temp 97.4 04/28/24 1327 Pulse 78 04/28/24 1327 Resp 18 04/28/24 1327 SpO2 99 04/28/24 1327 Anesthesia Post Evaluation Patient location during evaluation: PACU Patient participation: complete - patient participated Level of consciousness: awake and alert Pain management: satisfactory to patient Multimodal analgesia pain management approach Airway patency: patent Two or more strategies used to mitigate risk of obstructive sleep apnea Cardiovascular status: acceptable and hemodynamically stable Respiratory status: acceptable Hydration status: acceptable No notable events documented. MIPS #430 PONV Patient did not receive an inhalational anesthetic (XX430) MIPS # 424 Perioperative Temperature Management Anesthesia time was less than 60 minutes (4256F) MIPS #477 Multimodal Pain Management Not emergent case Patient was administered multimodal pain management (two or more drugs and/or interventions excluding systemic opioids) in the periopeartive period occurring at some time between 6 hours prior to anesthesia start time until discharged from PACU (G2148) MIPS #404 Anesthesiology Smoking Abstinence The patient is not a current smoker (e.g. cigarette, cigar, pipe, e-cigarette/vaping/marijuana) If no stop here (XX404) I completed my handoff to the receiving clinician during which we: 1. Identified the patient 2. Identified the responsible provider 3. Reviewed the pertinent medical history 4. Discussed the surgical course 5. Reviewed intra-op anesthesia management and issues during anesthesia 6. Set expectations for post-procedure period 7. Allowed opportunity for questions and acknowledgement of understanding.[facility]06-11-2024 NotePatient: Dominic Jimenez Procedure Information Date/Time: 04/28/24 1215 Procedures: COLONOSCOPY ESOPHAGOGASTRODUODENOSCOPY DIAGNOSTIC Location: [address] Gastroenterology Providers: Radhika Scott MD Relevant Problems No relevant active problems Past Medical History: Past Medical History: 2020: Cirrhosis (HCC) No date: Neuropathy Past Surgical History: Past Surgical History: No date: TONSILLECTOMY No date: WISDOM TOOTH EXTRACTION Social History: TOBACCO: reports that she has never smoked. She has never used smokeless tobacco. ETOH: has no history on file for alcohol use. Social History Substance and Sexual Activity Drug Use Never Family History: No family history on file. Screening: unknown Clinical information reviewed: Tobacco Allergies Med Hx Surg Hx OB Status Fam Hx Soc Hx Physical Exam Anesthesia Plan patient is NPO appropriate Any family history or previous problems with anesthesia no ASA 3 TIVA Any family history or previous problems with anesthesia no The patient is not a current smoker. Anesthetic plan and risks discussed with patient. Use of blood products discussed with who consented to blood products. ERIC Screening Labs: No results found for: WBC, HGB, HCT, MCV, PLT No results found for: NA, K, CL, CO2, BUN, CREATININE, GLUCOSE, CALCIUM, PROT, BILIRUBINFL, ALKPHOS, AST, ALT, EGFR, GLOB No echocardiogram results found for the past 14 days No results found for this or any previous visit.[facility] 04-28-2024 Note* Op Note - Radhika Scott MD - 04/28/2024 12:22 PM [facility]T [facility] Name: Dominic Jimenez Procedure Date: 04/28/2024 12:22 PM Gender: Female Date of : 1970 Age: 54 Admit Type: Outpatient Note Status: Finalized Endoscopist: Radhika Scott MD, [id number] Procedure: Upper GI endoscopy Indications: Cirrhosis rule out esophageal varices Findings: Grade I varices were found in the lower third of the esophagus. Diffuse mild inflammation characterized by congestion (edema) and erythema was found in the gastric body and in the gastric antrum. Biopsies were taken with a cold forceps for histology. The examined duodenum was normal. Impression: - Grade I esophageal varices. - Gastritis. Biopsied. - Normal examined duodenum. Recommendation: - Patient has a contact number available for emergencies. The signs and symptoms of potential delayed complications were discussed with the patient. Return to normal activities tomorrow. Written discharge instructions were provided to the patient. - Resume previous diet. - Continue present medications. - Await pathology results. - Repeat upper endoscopy in 3 years for surveillance. Referring MD: Aure Carlton Medicines: Monitored Anesthesia Care, See the Anesthesia note for documentation of the administered medications Procedure: Pre-Anesthesia Assessment: - Prior to the procedure, a History and Physical was performed, and patient medications and allergies were reviewed. The patient's tolerance of previous anesthesia was also reviewed. The risks and benefits of the procedure and the sedation options and risks were discussed with the patient. All questions were answered, and informed consent was obtained. Prior Anticoagulants: The patient has taken no anticoagulant or antiplatelet agents. ASA Grade Assessment: III - A patient with severe systemic disease. After reviewing the risks and benefits, the patient was deemed in satisfactory condition to undergo the procedure. After obtaining informed consent, the endoscope was passed under direct vision. Throughout the procedure, the patient's blood pressure, pulse, and oxygen saturations were monitored continuously. The Endoscope was introduced through the mouth, and advanced to the second part of duodenum. The upper GI endoscopy was accomplished without difficulty. The patient tolerated the procedure well. Complications: No immediate complications. Procedure Code(s): --- Professional --- 89979, Esophagogastroduodenoscopy, flexible, transoral; with biopsy, single or multiple --- Technical --- 56307, Esophagogastroduodenoscopy, flexible, transoral; with biopsy, single or multiple Diagnosis Code(s): --- Professional --- K74.60, Unspecified cirrhosis of liver I85.10, Secondary esophageal varices without bleeding K29.70, Gastritis, unspecified, without bleeding --- Technical --- K74.60, Unspecified cirrhosis of liver I85.10, Secondary esophageal varices without bleeding K29.70, Gastritis, unspecified, without bleeding CPT copyright 2021 [employer]. All rights reserved. The codes documented in this report are preliminary and upon aerospace project engineer review may be revised to meet current compliance requirements. Attending Participation: I personally performed the entire procedure. Radhika Scott MD 04/28/2024 12:54:21 PM This report has been signed electronically. Number of Addenda: 0 Note Initiated On: 04/28/2024 12:22 PM [employer] Phone: 1(584) 558-977406-11-2024 Note* Op Note - Radhika Scott MD - 04/28/2024 12:22 PM EDT [facility] Patient Name: Dominic Jimenez Procedure Date: 04/28/2024 12:22 PM Gender: Female Date of : 1970 Age: 54 Admit Type: Outpatient Note Status: Finalized Endoscopist: Radhika Scott MD, [id number] Procedure: Upper GI endoscopy Indications: Cirrhosis rule out esophageal varices Findings: Grade I varices were found in the lower third of the esophagus. Diffuse mild inflammation characterized by congestion (edema) and erythema was found in the gastric body and in the gastric antrum. Biopsies were taken with a cold forceps for histology. The examined duodenum was normal. Impression: - Grade I esophageal varices. - Gastritis. Biopsied. - Normal examined duodenum. Recommendation: - Patient has a contact number available for emergencies. The signs and symptoms of potential delayed complications were discussed with the patient. Return to normal activities tomorrow. Written discharge instructions were provided to the patient. - Resume previous diet. - Continue present medications. - Await pathology results. - Repeat upper endoscopy in 3 years for surveillance. Referring MD: Aure Calrton Medicines: Monitored Anesthesia Care, See the Anesthesia note for documentation of the administered medications Procedure: Pre-Anesthesia Assessment: - Prior to the procedure, a History and Physical was performed, and patient medications and allergies were reviewed. The patient's tolerance of previous anesthesia was also reviewed. The risks and benefits of the procedure and the sedation options and risks were discussed with the patient. All questions were answered, and informed consent was obtained. Prior Anticoagulants: The patient has taken no anticoagulant or antiplatelet agents. ASA Grade Assessment: III - A patient with severe systemic disease. After reviewing the risks and benefits, the patient was deemed in satisfactory condition to undergo the procedure. After obtaining informed consent, the endoscope was passed under direct vision. Throughout the procedure, the patient's blood pressure, pulse, and oxygen saturations were monitored continuously. The Endoscope was introduced through the mouth, and advanced to the second part of duodenum. The upper GI endoscopy was accomplished without difficulty. The patient tolerated the procedure well. Complications: No immediate complications. Procedure Code(s): --- Professional --- 63776, Esophagogastroduodenoscopy, flexible, transoral; with biopsy, single or multiple --- Technical --- 26595, Esophagogastroduodenoscopy, flexible, transoral; with biopsy, single or multiple Diagnosis Code(s): --- Professional --- K74.60, Unspecified cirrhosis of liver I85.10, Secondary esophageal varices without bleeding K29.70, Gastritis, unspecified, without bleeding --- Technical --- K74.60, Unspecified cirrhosis of liver I85.10, Secondary esophageal varices without bleeding K29.70, Gastritis, unspecified, without bleeding CPT copyright 2021 [employer]. All rights reserved. The codes documented in this report are preliminary and upon aerospace project engineer review may be revised to meet current compliance requirements. Attending Participation: I personally performed the entire procedure. Radhika Scott MD 04/28/2024 12:54:21 PM This report has been signed electronically. Number of Addenda: 0 Note Initiated On: 04/28/2024 12:22 PM [email or web address] Phone: 1(748) 922-480606-11-2024 [facility] Name: Dominic Jimenez Procedure Date: 04/28/2024 12:22 PM Gender: Female Date of : 1970 Age: 54 Admit Type: Outpatient Note Status: Finalized Endoscopist: Radhika Scott MD, [id number] Procedure: Upper GI endoscopy Indications: Cirrhosis rule out esophageal varices Findings: Grade I varices were found in the lower third of the esophagus. Diffuse mild inflammation characterized by congestion (edema) and erythema was found in the gastric body and in the gastric antrum. Biopsies were taken with a cold forceps for histology. The examined duodenum was normal. Impression: - Grade I esophageal varices. - Gastritis. Biopsied. - Normal examined duodenum. Recommendation: - Patient has a contact number available for emergencies. The signs and symptoms of potential delayed complications were discussed with the patient. Return to normal activities tomorrow. Written discharge instructions were provided to the patient. - Resume previous diet. - Continue present medications. - Await pathology results. - Repeat upper endoscopy in 3 years for surveillance. Referring MD: Aure Carlton Medicines: Monitored Anesthesia Care, See the Anesthesia note for documentation of the administered medications Procedure: Pre-Anesthesia Assessment: - Prior to the procedure, a History and Physical was performed, and patient medications and allergies were reviewed. The patient's tolerance of previous anesthesia was also reviewed. The risks and benefits of the procedure and the sedation options and risks were discussed with the patient. All questions were answered, and informed consent was obtained. Prior Anticoagulants: The patient has taken no anticoagulant or antiplatelet agents. ASA Grade Assessment: III - A patient with severe systemic disease. After reviewing the risks and benefits, the patient was deemed in satisfactory condition to undergo the procedure. After obtaining informed consent, the endoscope was passed under direct vision. Throughout the procedure, the patient's blood pressure, pulse, and oxygen saturations were monitored continuously. The Endoscope was introduced through the mouth, and advanced to the second part of duodenum. The upper GI endoscopy was accomplished without difficulty. The patient tolerated the procedure well. Complications: No immediate complications. Procedure Code(s): --- Professional --- 00123, Esophagogastroduodenoscopy, flexible, transoral; with biopsy, single or multiple --- Technical --- 16710, Esophagogastroduodenoscopy, flexible, transoral; with biopsy, single or multiple Diagnosis Code(s): --- Professional --- K74.60, Unspecified cirrhosis of liver I85.10, Secondary esophageal varices without bleeding K29.70, Gastritis, unspecified, without bleeding --- Technical --- K74.60, Unspecified cirrhosis of liver I85.10, Secondary esophageal varices without bleeding K29.70, Gastritis, unspecified, without bleeding CPT copyright 2021 [employer]. All rights reserved. The codes documented in this report are preliminary and upon aerospace project engineer review may be revised to meet current compliance requirements. Attending Participation: I personally performed the entire procedure. Radhika Scott MD 04/28/2024 12:54:21 PM This report has been signed electronically. Number of Addenda: 0 Note Initiated On: 04/28/2024 12:22 [facility] [id number] Note* Op Note - Radhika Scott MD - 04/28/2024 12:19 PM EDT [facility] Patient Name: Dominic Jimenez Procedure Date: 04/28/2024 12:19 PM Gender: Female Date of : 1970 Age: 54 Admit Type: Outpatient Note Status: Finalized Endoscopist: Radhika Scott MD, [id number] Procedure: Colonoscopy Indications: Screening for colorectal malignant neoplasm Findings: Multiple medium-mouthed diverticula were found in the left colon. Internal hemorrhoids were found during retroflexion. The hemorrhoids were small. Impression: - Diverticulosis in the left colon. - Internal hemorrhoids. - No specimens collected. Recommendation: - Patient has a contact number available for emergencies. The signs and symptoms of potential delayed complications were discussed with the patient. Return to normal activities tomorrow. Written discharge instructions were provided to the patient. - Resume previous diet. - Continue present medications. - Repeat colonoscopy is not recommended due to current age (66 years or older) for surveillance. - Return to GI office in 3 months. Referring MD: Aure Carlton Medicines: Monitored Anesthesia Care, See the Anesthesia note for documentation of the administered medications Procedure: Pre-Anesthesia Assessment: - Prior to the procedure, a History and Physical was performed, and patient medications and allergies were reviewed. The patient's tolerance of previous anesthesia was also reviewed. The risks and benefits of the procedure and the sedation options and risks were discussed with the patient. All questions were answered, and informed consent was obtained. Prior Anticoagulants: The patient has taken no anticoagulant or antiplatelet agents. ASA Grade Assessment: III - A patient with severe systemic disease. After reviewing the risks and benefits, the patient was deemed in satisfactory condition to undergo the procedure. After I obtained informed consent, the scope was passed under direct vision. Throughout the procedure, the patient's blood pressure, pulse, and oxygen saturations were monitored continuously. The Colonoscope was introduced through the anus and advanced to the cecum, identified by appendiceal orifice and ileocecal valve. The colonoscopy was performed without difficulty. The patient tolerated the procedure well. The quality of the bowel preparation was good. The ileocecal valve, appendiceal orifice, and rectum were photographed. 2 right colon views obtained Complications: No immediate complications. Procedure Code(s): --- Professional --- G0121, Colorectal cancer screening; colonoscopy on individual not meeting criteria for high risk --- Technical --- G0121, Colorectal cancer screening; colonoscopy on individual not meeting criteria for high risk Diagnosis Code(s): --- Professional --- Z12.11, Encounter for screening for malignant neoplasm of colon K64.8, Other hemorrhoids K57.30, Diverticulosis of large intestine without perforation or abscess without bleeding --- Technical --- Z12.11, Encounter for screening for malignant neoplasm of colon K64.8, Other hemorrhoids K57.30, Diverticulosis of large intestine without perforation or abscess without bleeding CPT copyright 2021 [employer]. All rights reserved. The codes documented in this report are preliminary and upon aerospace project engineer review may be revised to meet current compliance requirements. Attending Participation: I personally performed the entire procedure. Radhika Scott MD 04/28/2024 1:26:18 PM This report has been signed electronically. Number of Addenda: 0 Note Initiated On: 04/28/2024 12:19 PM [id number] Note* Op Note - Radhika Scott MD - 04/28/2024 12:19 PM EDT [facility] Name: Dominic Jimenez Procedure Date: 04/28/2024 12:19 PM Gender: Female Date of : 1970 Age: 54 Admit Type: Outpatient Note Status: Finalized Endoscopist: Radhika Scott MD, [id number] Procedure: Colonoscopy Indications: Screening for colorectal malignant neoplasm Findings: Multiple medium-mouthed diverticula were found in the left colon. Internal hemorrhoids were found during retroflexion. The hemorrhoids were small. Impression: - Diverticulosis in the left colon. - Internal hemorrhoids. - No specimens collected. Recommendation: - Patient has a contact number available for emergencies. The signs and symptoms of potential delayed complications were discussed with the patient. Return to normal activities tomorrow. Written discharge instructions were provided to the patient. - Resume previous diet. - Continue present medications. - Repeat colonoscopy is not recommended due to current age (66 years or older) for surveillance. - Return to GI office in 3 months. Referring MD: Aure Carlton Medicines: Monitored Anesthesia Care, See the Anesthesia note for documentation of the administered medications Procedure: Pre-Anesthesia Assessment: - Prior to the procedure, a History and Physical was performed, and patient medications and allergies were reviewed. The patient's tolerance of previous anesthesia was also reviewed. The risks and benefits of the procedure and the sedation options and risks were discussed with the patient. All questions were answered, and informed consent was obtained. Prior Anticoagulants: The patient has taken no anticoagulant or antiplatelet agents. ASA Grade Assessment: III - A patient with severe systemic disease. After reviewing the risks and benefits, the patient was deemed in satisfactory condition to undergo the procedure. After I obtained informed consent, the scope was passed under direct vision. Throughout the procedure, the patient's blood pressure, pulse, and oxygen saturations were monitored continuously. The Colonoscope was introduced through the anus and advanced to the cecum, identified by appendiceal orifice and ileocecal valve. The colonoscopy was performed without difficulty. The patient tolerated the procedure well. The quality of the bowel preparation was good. The ileocecal valve, appendiceal orifice, and rectum were photographed. 2 right colon views obtained Complications: No immediate complications. Procedure Code(s): --- Professional --- G0121, Colorectal cancer screening; colonoscopy on individual not meeting criteria for high risk --- Technical --- G0121, Colorectal cancer screening; colonoscopy on individual not meeting criteria for high risk Diagnosis Code(s): --- Professional --- Z12.11, Encounter for screening for malignant neoplasm of colon K64.8, Other hemorrhoids K57.30, Diverticulosis of large intestine without perforation or abscess without bleeding --- Technical --- Z12.11, Encounter for screening for malignant neoplasm of colon K64.8, Other hemorrhoids K57.30, Diverticulosis of large intestine without perforation or abscess without bleeding CPT copyright 2021 [employer]. All rights reserved. The codes documented in this report are preliminary and upon aerospace project engineer review may be revised to meet current compliance requirements. Attending Participation: I personally performed the entire procedure. Radhika Scott MD 04/28/2024 1:26:18 PM This report has been signed electronically. Number of Addenda: 0 Note Initiated On: 04/28/2024 12:19 PM [facility]06[facility]11-[facility] Patient Name: Dominic Jimenez Procedure Date: 04/28/2024 12:19 PM Gender: Female Date of : 1970 Age: 54 Admit Type: Outpatient Note Status: Finalized Endoscopist: Radhika Scott MD, [id number] Procedure: Colonoscopy Indications: Screening for colorectal malignant neoplasm Findings: Multiple medium-mouthed diverticula were found in the left colon. Internal hemorrhoids were found during retroflexion. The hemorrhoids were small. Impression: - Diverticulosis in the left colon. - Internal hemorrhoids. - No specimens collected. Recommendation: - Patient has a contact number available for emergencies. The signs and symptoms of potential delayed complications were discussed with the patient. Return to normal activities tomorrow. Written discharge instructions were provided to the patient. - Resume previous diet. - Continue present medications. - Repeat colonoscopy is not recommended due to current age (66 years or older) for surveillance. - Return to GI office in 3 months. Referring MD: Aure Carlton Medicines: Monitored Anesthesia Care, See the Anesthesia note for documentation of the administered medications Procedure: Pre-Anesthesia Assessment: - Prior to the procedure, a History and Physical was performed, and patient medications and allergies were reviewed. The patient's tolerance of previous anesthesia was also reviewed. The risks and benefits of the procedure and the sedation options and risks were discussed with the patient. All questions were answered, and informed consent was obtained. Prior Anticoagulants: The patient has taken no anticoagulant or antiplatelet agents. ASA Grade Assessment: III - A patient with severe systemic disease. After reviewing the risks and benefits, the patient was deemed in satisfactory condition to undergo the procedure. After I obtained informed consent, the scope was passed under direct vision. Throughout the procedure, the patient's blood pressure, pulse, and oxygen saturations were monitored continuously. The Colonoscope was introduced through the anus and advanced to the cecum, identified by appendiceal orifice and ileocecal valve. The colonoscopy was performed without difficulty. The patient tolerated the procedure well. The quality of the bowel preparation was good. The ileocecal valve, appendiceal orifice, and rectum were photographed. 2 right colon views obtained Complications: No immediate complications. Procedure Code(s): --- Professional --- G0121, Colorectal cancer screening; colonoscopy on individual not meeting criteria for high risk --- Technical --- G0121, Colorectal cancer screening; colonoscopy on individual not meeting criteria for high risk Diagnosis Code(s): --- Professional --- Z12.11, Encounter for screening for malignant neoplasm of colon K64.8, Other hemorrhoids K57.30, Diverticulosis of large intestine without perforation or abscess without bleeding --- Technical --- Z12.11, Encounter for screening for malignant neoplasm of colon K64.8, Other hemorrhoids K57.30, Diverticulosis of large intestine without perforation or abscess without bleeding CPT copyright 2021 [employer]. All rights reserved. The codes documented in this report are preliminary and upon aerospace project engineer review may be revised to meet current compliance requirements. Attending Participation: I personally performed the entire procedure. Radhika Scott MD 04/28/2024 1:26:18 PM This report has been signed electronically. Number of Addenda: 0 Note Initiated On: 04/28/2024 12:19 [facility] [id number] Note Patient: Dominic Jimenez : 1970 Primary Care Physician: Aure Carlton History: The patient is a 54 y.o. female EXPERIENTIAL THERAPIST summary: Cirrhosis will get labs and recalculate Meld. Discussed importance of Lactulose to help clear toxins from blood, Continue Nadolol daily. Still ETOH free over 2 years now. Proceed to egd with possible banding and reassess prior duodenal ulcer related to intermittent RUQ pain. Reassurance about risk without ETOH. TO continue Protonix 40 daily denies heartburn. Colonoscopy screening based on age. EGD for h/o EV Physical Exam: See anesthesia notes for admission vs: HEAD: Normal cephalic/atraumatic. Extra-occular motions intact bilaterally. NECK: No lymphadenopathy or bruits. CHEST: Rises equally on inspiration. Clear to auscultation bilaterally. CARDIOVASCULAR: Regular rate and rhythm without murmurs, rubs or gallops. ABDOMEN: Soft, nontender, and nondistended with normal bowel sounds. No Hepatosplemomegaly. NEURO: Alert and oriented times four. Patient moves all extremities and has gross sensation in all extremities. Assessment: See above Plan: Colon and EGD with possible banding Electronically signed by @[email or web address]@ on @[email or web address]@ at @[email or web address]@[facility] 04-09-2024 NoteHNO ID: [id number] Author: JAMES ALBRIGHT DC Service: ? Author Type: Chiropractor Type: Progress Notes Filed: 04/09/2024 13:55 Note Text: New Patient Chiropractor Progress Note Dominic Jimenez is a 54 year old female who presents today with complaints of low back pain and bilateral foot pain. She describes the pain as being numbness, tingling, sore, and tight and rates the pain as a 2/10 (low back), 4-5/10 (feet). The pain began 2 years ago neuropathy falls from neuropathy (low back). The pain is exacerbated by overhead activities, sleeping, ADLs, bending for long periods of time, sitting, seated to standing, laying down, and driving. Previous treatments have included topical analgesics/creams, heat, activity modification, Physical therapy, manipulation, essential oils, and medication. She complains of radiation to the both feet, both hands, and both shins. She reports numbness or tingling. She denies popping, clicking, catching, grinding, or instability. She reports bowel or bladder weakness, difficulty with walking long distance, and muscle weakness. She notes previous alcoholism, and showed scabs along shins where she scratches habitually due to neuropathy. AO Unlimited Pain Intensity 2 - The pain is moderate at the moment Personal Care (Washing/Dressing) 1 - I can look after myself normally but it causes extra pain Lifting 4 - I can lift only very light weights Walking 3 - Pain prevents me from walking more than 1/4 mile Sitting 2 - Pain prevents me from sitting more than 1 hour Standing 3 - Pain prevents me from standing more than 1/2 hour Sleeping 1 - I can sleep well only by using medication Sex Life 4 - My sex life is nearly absent because of pain Social Life 1 - My social life is normal but increases the degree of pain Traveling 2 - Pain is bad but I manage journeys over 2 hours Total Score 46 Interpretation 41% - 60% - severe disability MEDICATIONS: Current Outpatient Medications Medication Sig DULoxetine (CYMBALTA) 60 mg capsule Take 1 capsule by mouth two times a day. citalopram (CELEXA) 20 mg tablet Take 1 tablet by mouth once daily. traZODone (DESYREL) 100 mg tablet Take 2 tablets by mouth daily at bedtime. tiZANidine HCl (ZANAFLEX) 4 mg capsule Take by mouth. methocarbamol (ROBAXIN) 500 mg tablet Take 1 tablet by mouth three times a day. gabapentin (NEURONTIN) 300 mg capsule Take 1 capsule by mouth three times a day for 180 days. progesterone micronized (PROMETRIUM) 100 mg capsule Take by mouth. gabapentin (NEURONTIN) 100 mg capsule Take 1 capsule by mouth at bedtime as needed for up to 90 days. rifAXIMin (XIFAXAN) 550 mg tablet Take 550 mg by mouth twice daily. (Patient not taking: Reported on 03/03/2024) GEMTESA 75 mg tablet Take 1 tablet by mouth every afternoon. lactulose 10 gram/15 mL solution Take 10 [...] 250 mg by mouth once daily. glucosamine/chondr paniagua A sod (GLUCOSAMINE-CHONDROITIN) 750-600 mg tab Take 1 tablet by mouth once daily. Lactobac no.41/Bifidobact no.7 (PROBIOTIC-10 ORAL) Take 1 tablet by mouth once daily. vitamin B complex (B COMPLEX 1 ORAL) Take 1 tablet by mouth once daily. estradiol 0.01% estriol 0.01% topical cream (CPD) Apply 0.1ml to upper inner arm daily. PROGESTERONE MISC Dissolve one triturate under the tongue at bedtime. (Patient not taking: Reported on 03/03/2024) Milk Thistle 175 mg tab Take 1 [...] by mouth once daily. For 30 days (Patient not taking: Reported on 03/03/2024) yfipabdbckao-fkahwowh-tsshefo k-coenzyme Q-10 (DEKAS PLUS) 200 mcg-1,000 mcg-10 mg chewable tablet Take 1 tablet by mouth once daily. (Patient not taking: Reported on 03/03/2024) folic acid 1 mg tablet Take 1 mg by mouth once daily. pantoprazole DR (PROTONIX) 40 mg tablet Take 40 mg by mouth once daily. thiamine (VITAMIN B1) 100 mg tablet Take 100 mg by mouth once daily. cholecalciferol (VITAMIN D3) 5,000 unit tab Take 5,000 Units by mouth once daily. No current facility-administered medications for this visit. REVIEW OF SYSTEMS: Constitutional: Negative for fever and chills. Eyes: Negative for blurred vision and double vision. Respiratory: Negative for shortness of breath. Cardiovascular: Negative for chest pain and leg swelling. Gastrointestinal: Negative for nausea. Genitourinary: Negative for dysuria. Neurological: Positive for tingling, (more content not included)...[facility]05-23-2024 History of Present illness Narrative* James Albright DC - 04/09/2024 9:59 AM EDT New Patient Chiropractor Progress Note Dominic Jimenez is a 54 year old female who presents today with complaints of low back pain and bilateral foot pain. She describes the pain as being numbness, tingling, sore, and tight and rates the pain as a 2/10 (low back), 4-5/10 (feet). The pain began 2 years ago neuropathy falls from neuropathy (low back). The pain is exacerbated by overhead activities, sleeping, ADLs, bending for long periods of time, sitting, seated to standing, laying down, and driving. Previous treatments have included topical analgesics/creams, heat, activity modification, Physical therapy, manipulation, essential oils, and medication. She complains of radiation to the both feet, both hands, and both shins. She reports numbness or tingling. She denies popping, clicking, catching, grinding, or instability. She reports bowel or bladder weakness, difficulty with walking long distance, and muscle weakness. She notes previous alcoholism, and showed scabs along shins where she scratches habitually due to neuropathy. AO Unlimited Pain Intensity 2 - The pain is moderate at the moment Personal Care (Washing/Dressing) 1 - I can look after myself normally but it causes extra pain Lifting 4 - I can lift only very light weights Walking 3 - Pain prevents me from walking more than 1/4 mile Sitting 2 - Pain prevents me from sitting more than 1 hour Standing 3 - Pain prevents me from standing more than 1/2 hour Sleeping 1 - I can sleep well only by using medication Sex Life 4 - My sex life is nearly absent because of pain Social Life 1 - My social life is normal but increases the degree of pain Traveling 2 - Pain is bad but I manage journeys over 2 hours Total Score 46 Interpretation 41% - 60% - severe disability MEDICATIONS: Current Outpatient Medications Medication Sig DULoxetine (CYMBALTA) 60 mg capsule Take 1 capsule by mouth two times a day. citalopram (CELEXA) 20 mg tablet Take 1 tablet by mouth once daily. traZODone (DESYREL) 100 mg tablet Take 2 tablets by mouth daily at bedtime. tiZANidine HCl (ZANAFLEX) 4 mg capsule Take by mouth. methocarbamol (ROBAXIN) 500 mg tablet Take 1 tablet by mouth three times a day. gabapentin (NEURONTIN) 300 mg capsule Take 1 capsule by mouth three times a day for 180 days. progesterone micronized (PROMETRIUM) 100 mg capsule Take by mouth. gabapentin (NEURONTIN) 100 mg capsule Take 1 capsule by mouth at bedtime as needed for up to 90 days. rifAXIMin (XIFAXAN) 550 mg tablet Take 550 mg by mouth twice daily. (Patient not taking: Reported on 03/03/2024) GEMTESA 75 mg tablet Take 1 tablet by mouth every afternoon. lactulose 10 gram/15 mL solution Take 10 [...] 250 mg by mouth once daily. glucosamine/chondr paniagua A sod (GLUCOSAMINE-CHONDROITIN) 750-600 mg tab Take 1 tablet by mouth once daily. Lactobac no.41/Bifidobact no.7 (PROBIOTIC-10 ORAL) Take 1 tablet by mouth once daily. vitamin B complex (B COMPLEX 1 ORAL) Take 1 tablet by mouth once daily. estradiol 0.01% estriol 0.01% topical cream (CPD) Apply 0.1ml to upper inner arm daily. PROGESTERONE MISC Dissolve one triturate under the tongue at bedtime. (Patient not taking: Reportedon 03/03/2024) Milk Thistle 175 mg tab Take 1 [...] by mouth once daily. For 30 days (Patient not taking: Reported on 03/03/2024) odryhbjhipey-fafxxnvn-lkcsawc k-coenzyme Q-10 (DEKAS PLUS) 200 mcg-1,000 mcg-10 mg chewable tablet Take 1 tablet by mouth once daily. (Patient not taking: Reported on 03/03/2024) folic acid 1 mg tablet Take 1 mg by mouth once daily. pantoprazole DR (PROTONIX) 40 mg tablet Take 40 mg by mouth once daily. thiamine (VITAMIN B1) 100 mg tablet Take 100 mg by mouth once daily. cholecalciferol (VITAMIN D3) 5,000 unit tab Take 5,000 Units by mouth once daily. No current facility-administered medications for this visit. REVIEW OF SYSTEMS: Constitutional: Negative for fever and chills. Eyes: Negative for blurred vision and double vision. Respiratory: Negative for shortness of breath. Cardiovascular: Negative for chest pain and leg swelling. Gastrointestinal: Negative for nausea. Genitourinary: Negative for dysuria. Neurological: Positive for tingling, weakness and Negative for headaches. Endo/Heme/Allergies: Does bruise/bleed easily. Psychiatric/Behavioral: Negative for suicidal ideas and substance abuse. OBSERVATION/PHYSICAL EXAM: A&Ox3 -Y Antalgic: No DTR: 2/4 to UE and LE MOTOR : 4/5 to upper extremity and lower extremity SENSORY: decreased sensation in lower extremities, feet RANGE OF MOTION: Full HEEL WALK: WNL TOE WALK: WNL ORTHO EXAM: PROVACITIVE TESTING: N/A PALPATION: WNL, + Tibialis Tenderness: no tenderness LEG LENGTH: N/A wnl PERIPHERAL PULSES: Palpable PERIPHERAL EDEMA: NA Segmental dysfunction : none The patient is alert and oriented in no acute distress. I have confirmed and edited as necessary the HPI and ROS obtained by others. IMPRESSION & PLAN: (G62.9) Polyneuropathy, unspecified (primary encounter diagnosis) (G62.9) Neuropathy No orders found for this visit on 04/09/24. Treatments Neuromuscular re-education, Integrative movements lower extremities. Working to restore proper gaitand posture, and enhance proprioception to patient by stabilizing and increasing blood flow, 3 units, 38 minutes Return: 1 time, 4 weeks Patient responded well, instructed to call with problems or concerns I personally performed treatments/procedures listed above. Time in: 9:59 Time out: 11:30 Dr. James Albright DC [facility] Telephone encounter Note * Telephone Encounter - Chris Case - 03/31/2024 1:17 PM EDT ----- Message from Wiliam Grossman sent at 03/31/2024 1:12 PM EDT ----- Regarding: Spine & Pain / Aundrea Shultz (OFFAL ICER POULTRY) / Patient Requesting Different Provider Spine & Pain / Aundrea Shultz (OFFAL ICER POULTRY) / Patient Requesting Different Provider Patient: Dominic Jimenez Date of : 1970 Primary Care Provider: Aure Carlton APRN.OFFAL [employer] POULTRY Patient has been identified by name and Date of (Y/N): yes Patient: Dominic Jimenez Date of : 1970 Provider for this encounter: Aure Carlton APRN.CNP Reason for the call/escalation: pt wants appt with dr painter but last appt was with aundrea steve Pt also wants to see american history teacher as a chiropractor Was Patient Referred to [facility]/Seek Emergency Treatment (Y/N): no Did Patient Agree (Y/N): no Was An Attempt Made To Transfer The Patient To The Office (Y/N): no Were You Able To Reach Someone At The Office (Y/N): no If Yes - Patient Was Transferred To (Caregivers Name): no If No - Which [facility] [place] Leadership Sewing Demonstrator Did You Speak With Regarding This Patient: no Was an appointment scheduled (Y/N): no Reason patient was requesting visit (RFV/signs and symptoms/diagnosis) : pain management Person calling if other than patient: no Return call to if other than patient: no Best contact number: [phone] Thank you, Wiliam Grossman March 31, 2024 1:12 PM [facility]05-14-2024 Miscellaneous Notes* Telephone Encounter - Chris Case - 03/31/2024 1:17 PM EDT ----- Message from Wiliam Grossman sent at 03/31/2024 1:12 PM EDT ----- Regarding: Spine & Pain / Aundrea Shultz (JERRY) / Patient Requesting Different Provider Spine & Pain / Aundrea Shultz (JERRY) / Patient Requesting Different Provider Patient: Dominic Jimenez Date of : 1970 Primary Care Provider: Aure Carlton APRN.CNP Patient has been identified by name and Date of (Y/N): yes Patient: Dominic Jimenez Date of : 1970 Provider for this encounter: Aure Carlton APRN.CNP Reason for the call/escalation: pt wants appt with dr painter but last appt was with aundrea steve Pt also wants to see corey as a chiropractor Was Patient Referred to [facility]/Seek Emergency Treatment (Y/N): no Did Patient Agree (Y/N): no Was An Attempt Made To Transfer The Patient To The Office (Y/N): no Were You Able To Reach Someone At The Office (Y/N): no If Yes - Patient Was Transferred To (Caregivers Name): no If No - Which [facility] [place] Leadership Sewing Demonstrator Did You Speak With Regarding This Patient: no Was an appointment scheduled (Y/N): no Reason patient was requesting visit (RFV/signs and symptoms/diagnosis) : pain management Person calling if other than patient: no Return call to if other than patient: no Best contact number: [phone] Thank you, Wiliam Grossman March 31, 2024 1:12 PM documented in this encounterReg[facility]-13-2024 Instructions* Patient Instructions* Aure Carlton APRN.CNP - 03/30/2024 9:26 AM EDT Continue current meds Have fasting labs drawn 1 week prior to next office visit Call [phone] to schedule physical and occupational therapy. documented in this encounterReg[facility]-13-[facility] History of Present illness Narrative* Aure Carlton APRN.CNP - 03/30/2024 8:50 AM EDT Dominic Jimenez is a 54 year old female who presents with F/U 6 months (She wants to know if her gabapentin can be filled here or if she needs to let pain management [place] it. She also states she has alot of ringing in her ears. She is not sure if that is what is causing her dizziness.) Dominic presents today with her for 6-month follow-up hyperlipidemia, insomnia, depression, anxiety, neuropathy. Had or after last office visit, trazodone was increased to 200 mg and Celexa wasincreased to 15 mg and then 20 mg. Anxiety- states she has not noticed a huge change but her feels it is helping. Insomnia- notes she has been sleeping much better. Usually asleep by 10pm. Does not make her feel too fatigued in the morning. Neuropathy- doing well on gabapentin. The history is provided by the patient and the spouse. Hemoglobin A1C Date Value Ref Range Status 05/09/2023 5.4 4.3 - 6.0 % Final Comment: [employer] [employer] guidelines indicate that patients with [...] Delirium 10/2021 prolonged hospital stay 09/2021-10/2021 at [facility] Depression Esophageal varices (HCC) Fatigue Hepatic encephalopathy (HCC) Neuropathy Splenomegaly Subdural hematoma (HCC) 09/2021 bilateral ACTIVE PROBLEM LIST Depression Hyperlipidemia Hepatic Cirrhosis (Hcc) Neuropathy Wernicke's Disease Alcoholic Cirrhosis (Hcc) Insomnia Anxiety Vitamin D Deficiency, Unspecified Polyneuropathy, Unspecified Current Outpatient Medications Medication Sig Dispense Refill tiZANidine HCl (ZANAFLEX) 4 mg capsule Take by mouth. methocarbamol (ROBAXIN) 500 mg tablet Take 1 tablet by mouth three times a day. 90 tablet 2 citalopram (CELEXA) 20 mg tablet Take 1 tablet by mouth once daily. 30 tablet 2 traZODone (DESYREL) 100 mg tablet Take 2 tablets by mouth daily at bedtime. 60 tablet 2 gabapentin (NEURONTIN) 300 mg capsule Take 1 capsule by mouth three times a day for 180 days. 270 capsule 1 progesterone micronized (PROMETRIUM) 100 mg capsule Take by mouth. rifAXIMin (XIFAXAN) 550 mg tablet Take 550 mg by mouth twice daily. (Patient not taking: Reported on 03/03/2024) GEMTESA 75 mg tablet Take 1 tablet by mouth every afternoon. lactulose 10 gram/15 mL solution Take 10 [...] 250 mg by mouth once daily. glucosamine/chondr paniagua A sod (GLUCOSAMINE-CHONDROITIN) 750-600 mg tab Take [...] one triturate under the tongue at bedtime. (Patient not taking: Reportedon 03/03/2024) Milk Thistle 175 mg tab Take 1 [...] by mouth once daily. For 30 days (Patient not taking: Reported on 03/03/2024) hsklgkvqoilh-huayxoij-rzgaenk k-coenzyme Q-10 (DEKAS PLUS) 200 mcg-1,000 mcg-10 mg chewable tablet Take 1 tablet by mouth once daily. (Patient not taking: Reported on 03/03/2024) folic acid 1 mg tablet Take 1 [...] use: Not Currently Drug use: Not Currently History reviewed. No pertinent family history. Review of Systems Constitutional: Negative for activity [...] Negative for dizziness, light-headedness and headaches. Psychiatric/Behavioral: Negative for dysphoric mood and sleep disturbance. The patient is not nervous/anxious. All other systems reviewed and are negative. BP 102/60 Pulse 79 Temp 98.3 Ht 5' 9 (1.75m) Wt 190 lb (86.2kg) SpO2 99% BMI 28.05 kg/(m^2). Physical Exam Vitals and nursing note [...] and verified. Assessment & Plan ASSESSMENT/PLAN: 1. Hyperlipidemia, unspecified hyperlipidemia type - ICD9: 272.4, ICD10: E78.5 (primary diagnosis) - Controlled - Counseled on healthy diet and regular exercise - COMPREHENSIVE METABOLIC PANEL - LIPID PANEL BASIC 2. Depression, unspecified depression type - ICD9: 311, ICD10: F32.A Improved, continue current meds - DULOXETINE 60 MG CAPSULE,DELAYED RELEASE - CITALOPRAM 20 MG TABLET 3. Anxiety - ICD9: 300.00, ICD10: F41.9 Improved, continue current meds - DULOXETINE 60 MG CAPSULE,DELAYED RELEASE - CITALOPRAM 20 MG TABLET 4. Insomnia, unspecified type - ICD9: 780.52, ICD10: G47.00 Improved, continue trazodone - TRAZODONE 100 MG TABLET 5. Polyneuropathy, unspecified - ICD9: 356.9, ICD10: G62.9 Continue gabapentin, refer to OT - DULOXETINE 60 MG CAPSULE,DELAYED RELEASE - CONSULT TO CAPACITY PLANNING MANAGER 6. Vitamin D deficiency, unspecified - ICD9: 268.9, ICD10: E55.9 - VITAMIN D 25 HYDROXY 7. Impaired fasting glucose - ICD9: 790.21, ICD10: R73.01 - HEMOGLOBIN A1C 8. Thrombocytopenia, unspecified (HCC) - ICD9: 287.5, ICD10: D69.6 - COMPLETE BLOOD COUNT Aure Carlton APRN.CNP PATIENT NAME: Dominic Jimenez DATE: March 30, 2024 SIGNATURE: Aure Carlton APRN.CNP documented in this encounterRegency [facility]05-08-2024 Telephone encounter Note * Telephone Encounter - Alba Coffey - 03/25/2024 4:21 PM EDT Received message from patient, I left another message for her to contact us back. She did state in her voicemail she wanted to discuss Gabapentin and disability paperwork. I informed the patient via voicemail that we could not discuss medication via virtual visit and to call back to let us know what she would prefer to do Alba Coffey Katy to Dr. Tere Painter MD / Gretchen Vidal CNP [place] [facility] [address] [facility] [address] [place] [address] Phone. [phone] / Fax. [phone] [place] [address]-08-2024 Miscellaneous Notes* Telephone Encounter - Alba Coffey - 03/25/2024 4:21 PM EDT Received message from patient, I left another message for her to contact us back. She did state in her voicemail she wanted to discuss Gabapentin and disability paperwork. I informed the patient via voicemail that we could not discuss medication via virtual visit and to call back to let us know what she would prefer to do Alba Coffey Katy to Dr. Tere Painter MD / Gretchen Vidal CNP [facility] [address] [facility] [address] [place] [address] Phone. [phone] / Fax. [phone] * Telephone Encounter - Alba Coffey - 03/25/2024 3:28 PM EDT LVM for patient to return call Alba Coffey Katy to Dr. Tere Painter MD / Gretchen Vidal CNP [facility] [address] [facility] [address] [place] [address] Phone. [phone] / Fax. [phone] * Telephone Encounter - Tere Painter MD - 03/25/2024 1:21 PM EDT We cannot prescribe any medications for her with a virtual visit, particularly as it has been over a year since she was last seen in person. However, when I spoke with her last time, there was little more that I could think of to offer her in the way of treatment, so if she is just looking to run some things by me as a one-time visit, a virtual visit would be fine. Tere Painter III, MD, LAMONTE * Telephone Encounter - Chris Case - 03/25/2024 1:18 PM EDT ----- Message from Melina Manriquez sent at 03/25/2024 1:13 PM EDT ----- Regarding: Tere Nuñez Appointment Tere Nuñez Appointment Patient: Dominic Jimenez Date of : 1970 Primary Care Provider: Aure Carlton APRN.CNP Patient has been identified by name and Date of (Y/N): y Patient: Dominic Jimenez Date of : 1970 Provider for this encounter: Aure Carlton APRN.CNP Reason for the call/escalation: Patient stated that she wanted to know if there was anyway she could do a virtual visit due to her narcolepsy and not having a ride with Dr. Painter. She would like a callback [facility] to discuss this Was Patient Referred to [facility]/Seek Emergency Treatment (Y/N): n Did Patient Agree (Y/N): n/a Was An Attempt Made To Transfer The Patient To The Office (Y/N): y Were You Able To Reach Someone At The Office (Y/N): n If Yes - Patient Was Transferred To (Caregivers Name): n/a If No - Which [facility] Leadership Sewing Demonstrator Did You Speak With Regarding This Patient: n/a Was an appointment scheduled (Y/N): n Reason patient was requesting visit (RFV/signs and symptoms/diagnosis) : n/a Person calling if other than patient: self Return call to if other than patient: self Best contact number: [phone] Thank you, Melina Manriquez March 25, 2024 1:13 PM documented in [facility] encounter[facility] Telephone encounter Note * Telephone Encounter - Alba Coffey - 03/25/2024 3:28 PM EDT LVM for patient to return call Alba Coffey Katy to Dr. Tere Painter MD / Gretchen Vidal CNP [facility] [address] [place] [address] Phone. [phone] / Fax. [phone] [facility]05-08-2024 Telephone encounter Note* Telephone Encounter - Tere Painter MD - 03/25/2024 1:21 PM EDT We cannot prescribe any medications for her with a virtual visit, particularly as it has been over a year since she was last seen in person. However, when I spoke with her last time, there was little more that I could think of to offer her in the way of treatment, so if she is just looking to run some things by me as a one-time visit, a virtual visit would be fine. Tere Painter III, MD, LAMONTE [facility] Work Phone: 1(795) 687-483005-08-2024 Telephone encounter Note* Telephone Encounter - Chris Case - 03/25/2024 1:18 PM EDT ----- Message from Melina Manriquez sent at 03/25/2024 1:13 PM EDT ----- Regarding: Tere Nuñez Appointment Tere Nuñez Appointment Patient: Dominic Jimenez Date of : 1970 Primary Care Provider: Aure Carlton APRN.CNP Patient has been identified by name and Date of (Y/N): y Patient: Dominic Jimenez Date of : 1970 Provider for this encounter: Aure Carlton APRN.CNP Reason for the call/escalation: Patient stated that she wanted to know if there was anyway she could do a virtual visit due to her narcolepsy and not having a ride with Dr. Painter. She would like a callback [facility] to discuss this Was Patient Referred to [facility]/Seek Emergency Treatment (Y/N): n Did Patient Agree (Y/N): n/a Was An Attempt Made To Transfer The Patient To The Office (Y/N): y Were You Able To Reach Someone At The Office (Y/N): n If Yes - Patient Was Transferred To (Caregivers Name): n/a If No - Which [facility] Leadership Sewing Demonstrator Did You Speak With Regarding This Patient: n/a Was an appointment scheduled (Y/N): n Reason patient was requesting visit (RFV/signs and symptoms/diagnosis) : n/a Person calling if other than patient: self Return call to if other than patient: self Best contact number: [phone] Thank you, Melina Manriquez March 25, 2024 1:13 PM [facility]05-02-2024 Instructions* Patient Instructions* Yovana Stewart Jr., APRN.CNP - 03/19/2024 7:33 PM EDT Monitor for infection resolution. Return or follow up with PCP if symptoms do not resolve. documented in this encounterRegency [facility]05-02-2024 History of Present illness Narrative* Yovana Stewart Jr., EDGER HAND.OFFAL ICER POULTRY - 03/19/2024 7:27 PM EDT Dominic Jimenez is a 54 year old female who presents with Suture Removal (Patient need sutures removedthat were placed two weeks ago. Patient complains of pain at the site that travels up the right leg.There is redness and swelling present at the site on top of right foot./HX neuropathy.) and UrinaryProblem (03/17/24 Patient began experiencing urinary urgency,frequency and burning while urinating.//HX of urinary Tract infections.) Patient presents today for suture removal and dorsum of right foot. Patient is also complaining of urinary tract infection symptoms she states she has a history of these. She is complaining of dysuria frequency and urgency. Patient was previously seen after suture placement for infection of the sutured area. She was prescribed Keflex at that visit and states she quit taking it. The history is provided by the patient. PAST MEDICAL HISTORY Diagnosis Date Alcoholic cirrhosis (HCC) Alcoholic hepatitis Anemia Clostridium difficile infection COVID-19 virus infection 08/2021 hospitalized Delirium 10/2021 prolonged hospital stay 09/2021-10/2021 at [facility] Depression Esophageal varices (HCC) Fatigue Hepatic encephalopathy (HCC) Neuropathy Splenomegaly Subdural hematoma (HCC) 09/2021 bilateral ACTIVE PROBLEM LIST Depression Hyperlipidemia Hepatic Cirrhosis (Hcc) Neuropathy Wernicke's Disease Alcoholic Cirrhosis (Hcc) Insomnia Anxiety Vitamin D Deficiency, Unspecified Polyneuropathy, Unspecified Current Outpatient Medications Medication Sig Dispense Refill tiZANidine HCl (ZANAFLEX) 4 mg capsule Take by mouth. methocarbamol (ROBAXIN) 500 mg tablet Take 1 tablet by mouth three times a day. 90 tablet 2 citalopram (CELEXA) 20 mg tablet Take 1 tablet by mouth once daily. 30 tablet 2 traZODone (DESYREL) 100 mg tablet Take 2 tablets by mouth daily at bedtime. 60 tablet 2 gabapentin (NEURONTIN) 300 mg capsule Take 1 capsule by mouth three times a day for 180 days. 270 capsule 1 progesterone micronized (PROMETRIUM) 100 mg capsule Take by mouth. gabapentin (NEURONTIN) 100 mg capsule Take 1 capsule by mouth at bedtime as needed for up to 90 days. 30 capsule 2 rifAXIMin (XIFAXAN) 550 mg tablet Take 550 mg by mouth twice daily. (Patient not taking: Reported on 03/03/2024) GEMTESA 75 mg tablet Take 1 tablet by mouth every afternoon. lactulose 10 gram/15 mL solution Take 10 [...] 250 mg by mouth once daily. glucosamine/chondr paniagua A sod (GLUCOSAMINE-CHONDROITIN) 750-600 mg tab Take [...] one triturate under the tongue at bedtime. (Patient not taking: Reportedon 03/03/2024) Milk Thistle 175 mg tab Take 1 [...] by mouth once daily. For 30 days (Patient not taking: Reported on 03/03/2024) wtyzgnlhrtcd-dttkpdug-hpspmzv k-coenzyme Q-10 (DEKAS PLUS) 200 mcg-1,000 mcg-10 mg chewable tablet Take 1 tablet by mouth once daily. (Patient not taking: Reported on 03/03/2024) folic acid 1 mg tablet Take 1 [...] history. Review of Systems Constitutional: Negative for fever. HENT: Negative for sore throat. Respiratory: Negative for cough and shortness of breath. Cardiovascular: Negative for chest pain. Gastrointestinal: Negative for nausea and vomiting. Genitourinary: Positive for dysuria, frequency and urgency. Neurological: Positive for sensory change. History of lower extremity neuropathy BP 136/82 Pulse 83 Temp 97.6 Resp 18 Wt 189 lb (85.7kg) SpO2 100% Physical Exam Vitals and nursing note reviewed. Constitutional: Appearance: Normal appearance. She is not ill-appearing or diaphoretic. Cardiovascular: Rate and Rhythm: Normal rate and regular rhythm. Pulmonary: Effort: Pulmonary effort is normal. Breath sounds: Normal breath sounds. Abdominal: General: Abdomen is flat. Bowel sounds are normal. Palpations: Abdomen is soft. Tenderness: There is no right CVA tenderness or left CVA tenderness. Skin: General: Skin is dry. Findings: Erythema present. Comments: There is erythema, warmth and tenderness to palpation around the sutured area of the dorsum of the right foot. no purulent material noted Neurological: Mental Status: She is alert and oriented to person, place, and time. ASSESSMENT/PLAN: 1. Recurrent UTI (urinary tract infection) - ICD9: 599.0, ICD10: N39.0 (primary diagnosis) - SULFAMETHOXAZOLE 800 MG-TRIMETHOPRIM 160 MG TABLET - URINE CULTURE m - ICD9: V47.4, ICD10: R39.89 2. Urinary proble - URINALYSIS, DIPSTICK ONLY 3. Encounter for removal of sutures - ICD9: V58.32, ICD10: Z48.02 4. Cellulitis of skin - ICD9: 682.9, ICD10: L03.90 5. Visit for suture removal - ICD9: V58.32, ICD10: Z48.02 Patient presented today for suture removal. She was previously treated for infection of the suturedarea however she stopped taking the medication. She also complained of urinary tract infection symptoms. Patient did not have any CVA tenderness bilaterally. Urine dip performed that was positive forUTI. Patient requested urine culture be performed. Due to the cellulitis of the skin of the dorsum of the foot and a UTI I decided to prescribe Bactrim DS which will address both infections urine culture ordered based on test results when received. Yovana Stewart Jr, APRN.CNP documented in this encounterRegency Hospital [facility]05-02-2024 NoteHNO ID: [id number] Author: ALDO BURGOS APRN.CNP Service: ? Author Type: Nurse Practitioner Type: Progress Notes Filed: 03/19/2024 14:42 Note Text: Pt presents with c/o possible wound infection. Per patient about 2 weeks ago she lacerated her foot and required stitches. She was placed on antibiotics; however, patient states she is still taking the antibiotics but only taking once daily. Over the past few days she has noticed redness, swelling and having significant pain to her foot. Denies fevers/chills or red streaking. Pt referred for in-person evaluation d/t likely abx failure as she was not taking medications as instructed and now with likely infection. Pt verbalizes understanding and agreeable to this plan. Aldo Burgos APRN.[facility]PAden[facility]05-02-2024 History of Present illness Narrative* Aldo Burgos APRN.CNP - 03/19/2024 2:24 PM EDT Pt presents with c/o possible wound infection. Per patient about 2 weeks ago she lacerated her footand required stitches. She was placed on antibiotics; however, patient states she is still taking the antibiotics but only taking once daily. Over the past few days she has noticed redness, swelling and having significant pain to her foot. Denies fevers/chills or red streaking. Pt referred for in-person evaluation d/t likely abx failure as she was not taking medications as instructed and now withlikely infection. Pt verbalizes understanding and agreeable to this plan. Aldo Burgos APRN.CNP documented in this encounterRegency Hospital [facility]05-02-2024 NoteHNO ID: [id number] Author: FRANKY LEAVITT PA-C Service: ? Author Type: Physician Floorperson Type: Progress Notes Filed: 03/19/2024 13:00 Note Text: March 19, 2024 Express Care Online visit unable to be completed because no video/audio connection made during attempted visit. [facility] History of Present illness Narrative* Franky Leavitt PA-C - 03/19/2024 12:59 PM EDT March 19, 2024 Express Care Online visit unable to be completed because no video/audio connection made during attempted visit. Franky Leavitt PA-C documented in this encounterRegency Hospital [facility]04-17-2024 Instructions* Patient Instructions* Ana Gan APRN.CNP - 03/04/2024 4:06 PM EDT -Please see your PCP in 2-3 days if your symptoms persist. Go directly to Emergency Department withhigh fevers, chest pain, difficulty breathing or not able to tolerate fluids. -Take antibiotics as prescribed -Tramadol is a controlled substance, please use as needed every 8 hours -Keep covered and shower, make sure that the dressing is dry and clean -When able, keep open to air -Come back in 10 to 14 days for suture removal -Be on the look out for signs of infections that we discussed in office, puslike yellow-green discharge, redness, tenderness, warmth, change in sensation, numbness or tingling in the foot, fevers documented in this encounterRegency Hospital [facility]04-17-2024 History of Present illness Narrative* Ana Gan APRN.CNP - 03/04/2024 4:04 PM EDT Images from the original note were not included. Dominic Jimenez is a 54 year old female who presents with Wound Check (Patient was in yesterday 03/03/2024 patient is now having drainage pinkish color patient states diluted blood. ///Per notes [address] sut[address] were put into place ) and Pain Medicaiton (Patient states she can't take APAP or Ibuprofen due Alison issues patient is requesting pain medication at this time. /) Patient is a 54-year-old female that presents in office with questions about her foot laceration that was sutured at our clinic yesterday. She just wants someone to look at the suturing and make sureit is aligned properly, and she has also noticed some new clear, yellow, pink drainage on her bandage that she wants to double check and make sure it is not infected. She also states she has been having pain in the area of laceration, she already takes gabapentin for neuropathy but it does not covering this specific pain. She states she is unable to take acetaminophen and ibuprofen per her GI doctor due to liver history. The history is provided by the patient. No clerk stenographer was used. PAST MEDICAL HISTORY Diagnosis Date Alcoholic cirrhosis (HCC) Alcoholic hepatitis Anemia Clostridium difficile infection COVID-19 virus infection 08/2021 hospitalized Delirium 10/2021 prolonged hospital stay 09/2021-10/2021 at [facility] Depression Esophageal varices (HCC) Fatigue Hepatic encephalopathy (HCC) Neuropathy Splenomegaly Subdural hematoma (HCC) 09/2021 bilateral ACTIVE PROBLEM LIST Depression Hyperlipidemia Hepatic Cirrhosis (Hcc) Neuropathy Wernicke's Disease Alcoholic Cirrhosis (Hcc) Insomnia Anxiety Vitamin D Deficiency, Unspecified Polyneuropathy, Unspecified Current Outpatient Medications Medication Sig Dispense Refill tiZANidine HCl (ZANAFLEX) 4 mg capsule Take by mouth. methocarbamol (ROBAXIN) 500 mg tablet Take 1 tablet by mouth three times a day. 90 tablet 2 citalopram (CELEXA) 20 mg tablet Take 1 tablet by mouth once daily. 30 tablet 2 traZODone (DESYREL) 100 mg tablet Take 2 tablets by mouth daily at bedtime. 60 tablet 2 gabapentin (NEURONTIN) 300 mg capsule Take 1 capsule by mouth three times a day for 180 days. 270 capsule 1 progesterone micronized (PROMETRIUM) 100 mg capsule Take by mouth. GEMTESA 75 mg tablet Take 1 tablet by mouth every afternoon. lactulose 10 gram/15 mL solution Take 10 [...] 250 mg by mouth once daily. glucosamine/chondr paniagua A sod (GLUCOSAMINE-CHONDROITIN) 750-600 mg tab Take 1 tablet by mouth once daily. Lactobac no.41/Bifidobact no.7 (PROBIOTIC-10 ORAL) Take 1 tablet by mouth once daily. vitamin B complex (B COMPLEX 1 ORAL) Take 1 tablet by mouth once daily. DULoxetine (CYMBALTA) 60 mg capsule 1 capsule twice daily. estradiol 0.01% estriol 0.01% topical cream (CPD) Apply 0.1ml to upper inner arm daily. Milk Thistle 175 mg tab Take 1 tablet by mouth once daily. cyanocobalamin (VITAMIN B-12) 1,000 mcg tab Take 1 tablet by mouth once daily. ginkgo biloba leaf extract 60 mg tab Take 1 tablet by mouth once daily. famotidine (PEPCID) 40 mg tablet Take 40 mg by mouth daily at bedtime. folic acid 1 mg tablet Take 1 mg by mouth once daily. pantoprazole DR (PROTONIX) 40 mg tablet Take 40 mg by mouth once daily. thiamine (VITAMIN B1) 100 mg tablet Take 100 mg by mouth once daily. cholecalciferol (VITAMIN D3) 5,000 unit tab Take 5,000 Units by mouth once daily. traMADol (ULTRAM) 50 mg tablet Take 1 tablet by mouth every 8 hours as needed for pain for up to 5 days. 15 tablet 0 cephALEXin (KEFLEX) 500 mg capsule Take 1 capsule by mouth four times daily for 7 days. 28 capsule 0 albuterol HFA (PROVENTIL HFA) 90 mcg/actuation inhaler Inhale 1-2 Puffs as instructed four times a day as needed for wheezing/shortness of breath. (Patient not taking: Reported on 03/03/2024) 1 Each 0 benzonatate (TESSALON PERLES) 100 mg capsule Take 1 capsule by mouth three times a day as needed for cough. (Patient not taking: Reported on 03/03/2024) 20 capsule 0 dexAMETHasone (DECADRON) 4 mg tablet Take 4 mg by mouth as directed. estradiol (ESTRACE) 0.01 % (0.1 mg/gram) vaginal cream INSERT 1 GRAM VAGINALLY THREE TIMES A WEEK BEFORE BED (Patient not taking: Reported on 03/03/2024) gabapentin (NEURONTIN) 100 mg capsule Take 1 capsule by mouth at bedtime as needed for up to 90 days. 30 capsule 2 rifAXIMin (XIFAXAN) 550 mg tablet Take 550 mg by mouth twice daily. (Patient not taking: Reported on 03/03/2024) PROGESTERONE MISC Dissolve one triturate under the tongue at bedtime. (Patient not taking: Reportedon 03/03/2024) nadolol (CORGARD) 20 mg tablet Take 20 mg by mouth once daily. For 30 days (Patient not taking: Reported on 03/03/2024) kxsdpnhzysmv-bgkbyqqm-anwshyt k-coenzyme Q-10 (DEKAS PLUS) 200 mcg-1,000 mcg-10 mg chewable tablet Take 1 tablet by mouth once daily. (Patient not taking: Reported on 03/03/2024) No current facility-administered medications for this visit. Social History Tobacco Use Smoking status: Never Passive exposure: Never Smokeless tobacco: Never Vaping Use Vaping Use: Never used Substance Use Topics Alcohol use: Not Currently Drug use: Not Currently Alcohol Use: Not Currently Tobacco Use: Never No family history on file. Review of Systems Constitutional: Negative for chills, fever and malaise/fatigue. HENT: Negative. Eyes: Negative. Respiratory: Negative. Cardiovascular: Negative. Gastrointestinal: Negative. Genitourinary: Negative. Musculoskeletal: Positive for myalgias (Right foot pain at the site of laceration). Skin: Negative. Right foot laceration that was sutured yesterday in our clinic Neurological: Negative for tingling, sensory change and weakness. Endo/Heme/Allergies: Negative. Psychiatric/Behavioral: Negative. All other systems reviewed and are negative. BP 123/82[patient is currently eatting while having blood pressure taken[ Pulse 68 Temp (Src) 98.2 (Temporal) Resp 17 SpO2 99% Physical Exam Vitals and nursing note reviewed. Constitutional: General: She is not in acute distress. Appearance: Normal appearance. She is normal weight. She is not ill-appearing, toxic-appearing or diaphoretic. HENT: Head: Normocephalic. Right Ear: Tympanic membrane, ear canal and external ear normal. Left Ear: Tympanic membrane, ear canal and external ear normal. Nose: Nose normal. No congestion or rhinorrhea. Mouth/Throat: Mouth: Mucous membranes are moist. Pharynx: Oropharynx is clear. No oropharyngeal exudate or posterior oropharyngeal erythema. Eyes: Conjunctiva/sclera: Conjunctivae normal. Pupils: Pupils are equal, round, and reactive to light. Cardiovascular: Rate and Rhythm: Normal rate. Pulses: Normal pulses. Pulmonary: Effort: Pulmonary effort is normal. Breath sounds: Normal air entry. No stridor. Musculoskeletal: General: No swelling or deformity. Normal range of motion. Cervical back: Normal range of motion. No rigidity. Feet: Feet: Left foot: Skin integrity: No skin breakdown, erythema or warmth. Comments: Laceration on right foot, that was sutured in our office yesterday with 5 sutures, appears appropriate and intact. There is clear, lightly yellow, and light pink drainage present on the bandage, which is within normal limits due to active wound healing. Surrounding skin is not warm or erythematous, no local or systemic signs of infection noted. Lymphadenopathy: Cervical: No cervical adenopathy. Skin: General: Skin is warm and dry. Capillary Refill: Capillary refill takes less than 2 seconds. Neurological: General: No focal deficit present. Mental Status: She is alert and oriented to person, place, and time. Gait: Gait is intact. Gait normal. Psychiatric: Attention and Perception: Attention normal. Mood and Affect: Mood normal. Speech: Speech normal. Behavior: Behavior normal. Thought Content: Thought content normal. ASSESSMENT/PLAN: 1. Foot laceration, right, subsequent encounter - ICD9: V58.89, 892.0, ICD10: S91.311D - TRAMADOL 50 MG TABLET -patient requesting something for pain, unable to take ibuprofen or acetaminophen due to liver history, checked her PDMP /NARx score which is 190, currently only taking gabapentin for neuropathy. - CEPHALEXIN 500 MG CAPSULE -prescribing antibiotic as a preventative for potential skin infection. - Educated patient and answered questions about prescribed medications and discussed supportive measures at home. - provided with AVS and details when it comes to watching for signs of infection. - Discussed to follow up with PCP and/or specialist in 2-3 days if symptoms persist or get worse, go directly to Emergency Department with new symptoms, increased and unmanageable pain, high fevers, chest pain, difficulty breathing or not being able to tolerate fluids. - patient is agreeable with plan and discharged in stable condition. Discussed and reviewed with MD Ana Theodore APRN.OFFAL ICER POULTRY This document has been created with the use of voice recognition technology. Every effort was takento correct for errors however it may contain inaccuracies, misspellings, syntax errors, or word sense that escaped review. Please inquire further with the author for clarification if needed. documented in this encounterRegency Hospital [facility]04-17-2024 Miscellaneous Notes* Telephone Encounter - Charlotte Cordero LPN - 03/04/2024 1:32 PM EDT Patient called back and is aware and states that she will be back in to be seen today. Charlotte Cordero LPN * Telephone Encounter - Gretchen Andersen DO - 03/04/2024 1:28 PM EDT Please advise this patient that she needs reevaluated. Dr. Stewart is no longer on shift and it would be a different physician but somebody needs to take a look at the sutures and make sure that everything is okay. They can handle writing pain medication at that time once they review your case. * Telephone Encounter - Charlotte Cordero LPN - 03/04/2024 1:28 PM EDT After speaking with Siena patient should be re-evaluated. Patient can come here for re-evaluation or go to the ER. This nurse tried to call patient to notify her of this and was unable to reach patient. This nurse left a message on voice mail for her to call urgent care back. Charlotte Cordero LPN * Telephone Encounter - Charlotte Cordero LPN - 03/04/2024 1:23 PM EDT Patient called again requesting something for pain that isn't APAP or Ibuprofen. Patient states she is now having drainage coming from the sutures that is clear, pink and red in color. Patient is asking if this is normal and if not what she should do. Charlotte Cordero LPN * Telephone Encounter - Charlotte Cordero LPN - 03/04/2024 11:32 AM EDT Dominic Jimenez called today. : 1970 Allergies: Patient has no known allergies. (home) [phone] (cell) Reason for call: Patient states that she is having a lot of pain in her foot and it is going up herleg. Patient is asking if there is something that she can take she states she can't take APAP and/or Ibuprofen due to liver issues. Patient is currently on Gabapentin for neuropathy Patient last appointment: 03/03/2024 The patients preferred pharmacy has been captured for this encounter? Yes The pharmacy is the profile is the correct pharmacy. Charlotte Cordero LPN documented in this encounterReg[facility] Instructions* Patient Instructions* Yovana Stewart Jr., EDGER HAND.OFFAL ICER POULTRY - 03/03/2024 4:52 PM EDT Have the sutures removed in 10 to 12 days. Keep the sutures dry for the next 24 hours and then you can run water over them just do not get in a swimming pool or other bodies of water. Turn for signs of infection these include redness, warmth, swelling, pain, and pus If signs of infection develop to stop by or call the office. Change your bandage at night. You had 5 sutures placed in the dorsum of the right foot. documented in this encounterRegency Hospital [facility]04-16-2024 History of Present illness Narrative* Dario Sullivan RT(R) - 03/03/2024 3:40 PM EDT Radiology Service Progress Note PATIENT NAME: Dominic Jimenez DATE OF SERVICE: March 03, 2024 TIME: 4:44 PM PATIENT IDENTITY VERIFICATION COMPLETED USING TWO (2) IDENTIFIERS: Name and Date of confirmedby patient verbally. FALL SCREENING: Has the patient had 2 falls in the last year or 1 fall with injury or currently using an Ambulatory Assistive Device (Walker, Cane, Wheelchair, Crutches, etc.)? No PATIENT GENDER DATA: Female. status: : No status: NO. PATIENT RELEVANT IMPLANT DATA REVIEWED: Not Applicable PATIENT PRESENTS WITH AN IMPLANTABLE OR ATTACHED CAR RACER: No RADIOLOGY DEPARTMENT: General X-ray: Exam(s) Completed: Lower Extremity X- Ray(s): Foot, Right PERIPHERAL IV DATA: Not applicable SIGNED BY: RT Melanie(R) March 03, 2024 4:44 PM documented in this encounterRegency Hospital [facility]04-16-2024 History of Present illness Narrative* Yovana Stewart Jr., MALAK - 03/03/2024 3:13 PM EDT Dominic Jimenez is a 54 year old female who presents with Laceration (Hx of neuropathy //Patient was goine down the stairs slid down stairs and a bowl went on top of foot and cut top of foot //Today 1030 at home ////Tdap 05/2023) and Head Injury (Patient hit her head on where they keep there shoes when sitting up to look at foot /) 54-year-old female presents today with a complaint of dorsum of right foot laceration. Patient states she was going downstairs slipped and she fell down dropped a glass bowl that broke cutting the foot, when she sat up her head hit a shoe rack caused an abrasion on the forehead. Patient states she is unsure if there is any glass still in the wound area. PAST MEDICAL HISTORY Diagnosis Date Alcoholic cirrhosis (HCC) Alcoholic hepatitis Anemia Clostridium difficile infection COVID-19 virus infection 08/2021 hospitalized Delirium 10/2021 prolonged hospital stay 09/2021-10/2021 at [facility] Depression Esophageal varices (HCC) Fatigue Hepatic encephalopathy (HCC) Neuropathy Splenomegaly Subdural hematoma (HCC) 09/2021 bilateral ACTIVE PROBLEM LIST Depression Hyperlipidemia Hepatic Cirrhosis (Hcc) Neuropathy Wernicke's Disease Alcoholic Cirrhosis (Hcc) Insomnia Anxiety Vitamin D Deficiency, Unspecified Polyneuropathy, Unspecified Current Outpatient Medications Medication Sig Dispense Refill tiZANidine HCl (ZANAFLEX) 4 mg capsule Take by mouth. methocarbamol (ROBAXIN) 500 mg tablet Take 1 tablet by mouth three times a day. 90 tablet 2 citalopram (CELEXA) 20 mg tablet Take 1 tablet by mouth once daily. 30 tablet 2 traZODone (DESYREL) 100 mg tablet Take 2 tablets by mouth daily at bedtime. 60 tablet 2 gabapentin (NEURONTIN) 300 mg capsule Take 1 capsule by mouth three times a day for 180 days. 270 capsule 1 progesterone micronized (PROMETRIUM) 100 mg capsule Take by mouth. GEMTESA 75 mg tablet Take 1 tablet by mouth every afternoon. lactulose 10 gram/15 mL solution Take 10 [...] 250 mg by mouth once daily. glucosamine/chondr paniagua A sod (GLUCOSAMINE-CHONDROITIN) 750-600 mg tab Take 1 tablet by mouth once daily. Lactobac no.41/Bifidobact no.7 (PROBIOTIC-10 ORAL) Take 1 tablet by mouth once daily. vitamin B complex (B COMPLEX 1 ORAL) Take 1 tablet by mouth once daily. DULoxetine (CYMBALTA) 60 mg capsule 1 capsule twice daily. estradiol 0.01% estriol 0.01% topical cream (CPD) Apply 0.1ml to upper inner arm daily. Milk Thistle 175 mg tab Take 1 tablet by mouth once daily. cyanocobalamin (VITAMIN B-12) 1,000 mcg tab Take 1 tablet by mouth once daily. ginkgo biloba leaf extract 60 mg tab Take 1 tablet by mouth once daily. famotidine (PEPCID) 40 mg tablet Take 40 mg by mouth daily at bedtime. folic acid 1 mg tablet Take 1 mg by mouth once daily. pantoprazole DR (PROTONIX) 40 mg tablet Take 40 mg by mouth once daily. thiamine (VITAMIN B1) 100 mg tablet Take 100 mg by mouth once daily. cholecalciferol (VITAMIN D3) 5,000 unit tab Take 5,000 Units by mouth once daily. albuterol HFA (PROVENTIL HFA) 90 mcg/actuation inhaler Inhale 1-2 Puffs as instructed four times a day as needed for wheezing/shortness of breath. (Patient not taking: Reported on 03/03/2024) 1 Each 0 benzonatate (TESSALON PERLES) 100 mg capsule Take 1 capsule by mouth three times a day as needed for cough. (Patient not taking: Reported on 03/03/2024) 20 capsule 0 dexAMETHasone (DECADRON) 4 mg tablet Take 4 mg by mouth as directed. estradiol (ESTRACE) 0.01 % (0.1 mg/gram) vaginal cream INSERT 1 GRAM VAGINALLY THREE TIMES A WEEK BEFORE BED (Patient not taking: Reported on 03/03/2024) gabapentin (NEURONTIN) 100 mg capsule Take 1 capsule by mouth at bedtime as needed for up to 90 days. 30 capsule 2 rifAXIMin (XIFAXAN) 550 mg tablet Take 550 mg by mouth twice daily. (Patient not taking: Reported on 03/03/2024) PROGESTERONE MISC Dissolve one triturate under the tongue at bedtime. (Patient not taking: Reportedon 03/03/2024) nadolol (CORGARD) 20 mg tablet Take 20 mg by mouth once daily. For 30 days (Patient not taking: Reported on 03/03/2024) acnjtsxadevi-srewyjom-sjjpbjb k-coenzyme Q-10 (DEKAS PLUS) 200 mcg-1,000 mcg-10 mg chewable tablet Take 1 tablet by mouth once daily. (Patient not taking: Reported on 03/03/2024) No current facility-administered medications for this visit. Social History Tobacco Use Smoking status: Never Passive exposure: Never Smokeless tobacco: Never Vaping Use Vaping Use: Never used Substance Use Topics Alcohol use: Not Currently Drug use: Not Currently Alcohol Use: Not Currently Tobacco Use: Never No family history on file. Review of Systems Constitutional: Negative for fever. HENT: Negative for sore throat. Respiratory: Negative for cough. Gastrointestinal: Negative for nausea and vomiting. Skin: Negative for itching. BP 104/72 Pulse 72 Temp (Src) 97.2 (Temporal) Resp 18 SpO2 98% Physical Exam VITALS: Vitals are within normal limits CONSTITUTIONAL: patient is alert and orientated by 3, no acute distress HEAD: Head is atraumatic normocephalic. EYES: No bilateral conjunctivitis PULMONARY: No labored breathing. Lungs clear to auscultation. CARDIOVASCUOLAR: Regular rate and rhythm. No murmurs, rubs, or gallops. ABDOMEN: Soft nontender nondistended. MUSCULOSKELETAL: Moves all extremities without difficulty. No edema noted SKIN: Warm and dry . There is a laceration on the dorsal area of the right foot measuring 3 cm in length and approximately 0.3 cm at its widest point. The edges are sharp. I am able to push the lacerated edges together but they again gapped open. PSYCHIATRY: Cooperative. Normal mood and affect. Radiographic examination of the right foot: No foreign body noted. Laceration repair: She was informed of procedure and gave verbal permission to proceed. Laceration was cleaned and then sterilized with povidone iodine swab sticks. This was followed with 2.5 cc of 1% lidocaine injection. Blanching was observed. #4 ethylene suture material used. 5 sutures were placed in the wound with no active bleeding noted at end. Area was cleaned again and bandage applied. Patient was given instructions. ASSESSMENT/PLAN: 1. Laceration of dorsum of right foot - ICD9: 892.0, ICD10: S91.311A - XR FOOT GENERAL 3V AP/LAT/OBL RIGHT Patient presented today secondary to a laceration on the dorsum of the right foot. On examination vital signs were within normal limits, there is 3 cm x 0.3 cm with laceration on the top of the rightfoot. Radiographs of the right foot obtained to evaluate whether any glass or other foreign body was in the lacerated area. Radiograph was negative for foreign body. Suture repair performed with 5 sutures placed. Patient was given instructions on signs and symptoms of an infection. Patient told to return in 10 to 12 days for suture removal. Yovana Stewart Jr, APRN.OFFAL ICER POULTRY documented in this encounterRegency Hospital [facility]03-08-2024 Miscellaneous Notes* Telephone Encounter - Guicho Raygoza LMT - 01/24/2024 1:17 PM EST INSURANCE CO. ID # GROUP # CO-PAY DEDUCTIBLE COINSUR. OUT OF POCKET MAX PRIOR AUTH REQU'D LIMITATIONS REFERENCE # SPOKE TO: [employer] P[employer] [id number] David Cornelius. PATIENT DOES NOT HAVE CHIROPRACTIC BENEFITS Is this a Medicare or Medicaid product? No Does this follow Medicare guidelines? No Is this a [employer] product? No Does this require clinical submission through [facility]? NA Chiropractor: Dr. Albright Contracted: Chiropractic benefits: Are the billable benefits a HARD LIMIT? If yes, how do we ask for more visits? Fax: Mail: Phone: Website: Ask for the managed care department for benefits Be sure to ask: Are these supervised or unsupervised therapeutic modalities covered if billed by achiropractor? CPT CODE NAME COVERED? 75335 Manual manipulations spine 1-2 47907 87463 Manual manipulations spine 3-4 Manual manipulations spine 5 59887 Manual manipulations of extremities 99017 Hot/cold packs 24479 Mechanical traction 24287 Electrical stimulation 25723 Therapeutic exercises 73315 Neuromuscular re-education 89193 78377 Dry needling 1-2 Muscles Dry needling 3-4 muscles 93925 Massage therapy 14560 Manual therapy 40021 Acupuncture < 15 minutes 12404 54858 33923 Acupuncture > 15 minutes Acupuncture with stim < 15 minutes Acupuncture with stim > 15 minutes Guicho Raygoza LMT documented in this encounterRegency Hospital [facility]02-20-2024 Miscellaneous Notes* Telephone Encounter - Kailey Greene MA - 01/07/2024 5:02 PM EST Patient called requesting the following refill. Requested Prescriptions Pending Prescriptions Disp Refills gabapentin (NEURONTIN) 300 mg capsule 270 capsule 1 Sig: Take 1 capsule by mouth three times a day for 90 days. Patient last appointment: 12/30/2023 Patient Phone numbers: [phone] (home) Request is for script(s) to be escript to pharmacy. Kailey Greene MA documented in this encounterRegency Hospital [facility]02-02-2024 Miscellaneous Notes* Telephone Encounter - Kailey Greene MA - 12/20/2023 8:46 AM EST I did benita pt last night to verify with her GI. * Telephone Encounter - Aure Carlton APRN.CNP - 12/19/2023 3:33 PM EST It would depend on how much bleeding. She should call her GI to discuss, though. * Telephone Encounter - Kailey Greene MA - 12/19/2023 2:59 PM EST Pt states around 12 Am she had bleeding from rectum. It felt like pressure and discomfort. She didn't strain. It had lighten up to a pink color. Any concerns? documented in this encounterRegency Hospital [facility]12-31-2023 Instructions* Patient Instructions* Elodia Espinal APRN.CNP - 11/17/2023 1:42 PM EST Treatment for Viral Upper Respiratory Tract Infections Your body will kill off the virus by itself. Additionally, you can prime your body's immune system.This may help you get better more quickly. Drink lots of fluids - at least one gallon of non-caffeinated liquids per day Make sure you are eating well Get plenty of rest - at least 8 hours of sleep per night for adults and more for children We do not have any medications that kill off these viruses. Antibiotics are used to treat bacterialinfections; however, they are not active against viral infections. There are some things that mighthelp you feel better, though. Vaporizers, humidifiers, hot showers, and hot fluids help open respiratory and sinus passages Sudafed is a safe and effective decongestant [place] Nas[place] may offer relief of nasal and head [...] worse rather than better documented in this encounterRegency Hospital [facility]12-31-2023 History of Present illness Narrative* Elodia Espinal APRN.CNP - 11/17/2023 1:25 PM EST Telemedicine Visit - Distance Health Virtual Visit Note Patient seen on [employer] Video Visit platform. Location of patient: [place] History of Present Illness Dominic Jimenez is [...] Delirium 10/2021 prolonged hospital stay 09/2021-10/2021 at [facility] Depression Esophageal varices (HCC) Fatigue Hepatic encephalopathy (HCC) Neuropathy Splenomegaly Subdural hematoma (HCC) 09/2021 bilateral PAST SURGICAL HISTORY Procedure Laterality Date EGD 04/05/2022 TONSILLECTOMY AND ADENOIDECTOMY HX 1976 No family history on file. Social History [...] 250 mg by mouth once daily. glucosamine/chondr paniagua A sod (GLUCOSAMINE-CHONDROITIN) 750-600 mg tab Take [...] by mouth once daily. For 30 days xwgenmcynrtw-bxljtxoa-uhfkzsc k-coenzyme Q-10 (DEKAS PLUS) 200 mcg-1,000 mcg-10 [...] in person care - All questions answered Elodia Espinal APRN.OFFAL ICER POULTRY I documented in this encounterRegency Hospital [facility]12-16-2023 History of Present illness Narrative* Laura Irvin RT(R) - 11/02/2023 2:00 PM EST Radiology Service Progress Note PATIENT NAME: Dominic Jimenez DATE OF SERVICE: November 02, 2023 TIME: 1:48 PM PATIENT IDENTITY VERIFICATION COMPLETED USING TWO (2) IDENTIFIERS: Name and Date of confirmedby patient verbally. FALL SCREENING: Has the patient had 2 falls in the last year or 1 fall with injury or currently using an Ambulatory Assistive Device (Walker, Cane, Wheelchair, Crutches, etc.)? No PATIENT GENDER DATA: Female. status: : No status: N/A PATIENT RELEVANT IMPLANT DATA REVIEWED: Not Applicable RADIOLOGY DEPARTMENT: General X-ray: Exam(s) Completed: Lower Extremity X- Ray(s): Foot, Right PERIPHERAL IV DATA: Not applicable SIGNED BY: RT Carmen(R) November 02, 2023 1:48 PM documented in this encounterRegency Hospital [facility]12-16-2023 History of Present illness Narrative* Shari Aurelio MD Kristie - 11/02/2023 1:34 PM EST Dominic Jimenez is a 53 year old [...] Delirium 10/2021 prolonged hospital stay 09/2021-10/2021 at [facility] Depression Esophageal varices (HCC) Fatigue Hepatic encephalopathy [...] 250 mg by mouth once daily. glucosamine/chondr paniagua A sod (GLUCOSAMINE-CHONDROITIN) 750-600 mg tab Take [...] by mouth once daily. For 30 days qkruyrqzsevp-mzcyzbng-qvxlxdc k-coenzyme Q-10 (DEKAS PLUS) 200 mcg-1,000 mcg-10 [...] of the lateral side, no swollen or ecchymosisappreciated, range of motion of the right foot [...] - XR FOOT GENERAL 3V AP/LAT/OBL RIGHT Son Kristie Reyes MD documented in this encounterRegency Hospital [facility]12-15-2023 Miscellaneous Notes* Telephone Encounter - Chantale Sheth LMT - 11/01/2023 2:05 PM EST LVM explaining to patient I contacted insurance and she does not have chiropractic coverage with insurance. Patient also is being sent to Dr. Albright for acupuncture services and provider is currently not performing those services until after 2023. Chantale Sheth LMT documented in this encounterRegency Hospital [facility]12-15-2023 Miscellaneous Notes* Telephone Encounter - Chantale Sheth LMT - 11/01/2023 1:53 PM EST INSURANCE CO. ID # GROUP # CO-PAY DEDUCTIBLE COINSUR. OUT OF POCKET MAX PRIOR AUTH REQU'D LIMITATIONS REFERENCE # SPOKE TO: [employer] NO CHIRO COVERAGE [id number] - - - - - - [id number] YAW C Is this a Medicare or Medicaid product? N Does this follow Medicare guidelines? N Is this a [employer] product? N Does this require clinical submission through [facility]? N Chiropractor: Dr. Albright Contracted: Y Chiropractic benefits: In network Are the billable benefits a HARD LIMIT? Y If yes, how do we ask for more visits? Fax: Mail: Phone: Website: Ask for the managed care department for benefits Be sure to ask: Are these supervised or unsupervised therapeutic modalities covered if billed by [facility]? CPT CODE NAME COVERED? 98518 Manual manipulations spine 1-2 33709 74302 Manual manipulations spine 3-4 Manual manipulations spine 5 49488 Manual manipulations of extremities 49038 Hot/cold packs 66428 Mechanical traction 00537 Electrical stimulation 81840 Therapeutic exercises 81266 Neuromuscular re-education 78692 05925 Dry needling 1-2 Muscles Dry needling 3-4 muscles 39393 Massage therapy 65454 Manual therapy 22972 Acupuncture < 15 minutes 48276 50902 72801 Acupuncture > 15 minutes Acupuncture with stim < 15 minutes Acupuncture with stim > 15 minutes Chantale Sheth LMT documented in this encounterRegency Hospital [facility]12-05-2023 Miscellaneous Notes* Telephone Encounter - Priyanka Groves LPN - 10/22/2023 6:05 PM EST Patient phones requesting refills as follows: CONG EMMANUEL NOV 10/31/23 >>> PATIENT LEFT A MESSAGE REQUESTING ENOUGH TIZANIDINE TO GET TO HER APPT ON 10/31/23. <<< Requested Prescriptions Pending Prescriptions Disp Refills tiZANidine (ZANAFLEX) 2 mg tablet 25 tablet 0 Sig: Take 1 tablet by mouth three times a day as needed. Please review and advise. Priyanka Groves LPN October 22, 2023 6:06 PM documented in this encounterRegency Hospital [facility]11-14-2023 Miscellaneous Notes* Telephone Encounter - Taylor Tristan - 10/01/2023 8:31 AM EST LVM for patient to schedule New patient appt with antoni Bryant'd by Aundrea. Left 800 # and ext [phone]. Taylor Tristan documented in this encounterRegency Hospital [facility]11-09-2023 Miscellaneous Notes* Telephone Encounter - Reina Cole - 09/26/2023 9:17 AM EST Called and left VM for patient to schedule follow up appointments. Reina Cole documented in this encounterRegency Hospital [facility] West11-08-2023 NoteHNO ID: [id number] Author: Aundrea Shultz APRN.[facility] Service: ? Author Type: Nurse Practitioner Type: Progress Notes Filed: 09/25/2023 3:03 PM Note Text: VIRTUAL VISIT PROGRESS NOTE This is a virtual visit using [employer] Video Visit. It required patient-provider interaction for the medical decision making as documented below. I have communicated my name and active licensure. The patient's identity and physical location were verified at the time of this visit. Either the patient or their legal workforce services representative has been informed of the risks [...] well for her. Ht 177.8 cm (5' 10) Wt 84.4 kg (186 lb) BMI 26.69 [...] Delirium 10/2021 prolonged hospital stay 09/2021-10/2021 at [facility] Depression Esophageal varices (HCC) Fatigue Hepatic encephalopathy [...] 250 mg by mouth once daily. glucosamine/chondr paniagua A sod (GLUCOSAMINE-CHONDROITIN) 750-600 mg tab Take [...] by mouth once daily. For 30 days etqacdwvnlay-wiimqaui-luqokri k-coenzyme Q-10 (DEKAS PLUS) 200 mcg-1,000 mcg-10 mg chewable tablet Take 1 tablet by mouth once daily. folic acid 1 mg t (more content not included)...[facility] 09-25-2023 Miscellaneous Notes* Addendum Note - Aundrea Shultz, VERNA.[facility] - 09/25/2023 3:03 PM ESTAddended by: AUNDREA SHULTZ on: 09/25/2023 03:03 PM Modules accepted: Orders documented in this encounterRegency Hospital [facility]11-08-2023 History of Present illness Narrative* Aundrea Shultz APRN.CNP - 09/25/2023 2:44 PM EST VIRTUAL VISIT PROGRESS NOTE This is a virtual visit using [employer] Video Visit. It required patient- provider interaction for the medical decision making as documented below. I have communicated my name and active licensure. The patient's identity and physical location wereverified at the time of this visit. Either the patient or their legal workforce services representative has been informed of the risks and benefits of -- and alternatives to -- treatment through a remote evaluation andconsents to proceed with the evaluation remotely. Dominic Jimenez is a 53 year old female seen for right foot pain, pain score 5/10 She was last seen in February of this year by Dr. Painter and at that time he did not feel he had anythingfurther to offer that was currently being prescribed [...] well for her. Ht 177.8 cm (5' 10) Wt 84.4 kg (186 lb) BMI 26.69 [...] Delirium 10/2021 prolonged hospital stay 09/2021-10/2021 at [facility] Depression Esophageal varices (HCC) Fatigue Hepatic encephalopathy [...] 250 mg by mouth once daily. glucosamine/chondr paniagua A sod (GLUCOSAMINE-CHONDROITIN) 750-600 mg tab Take [...] by mouth once daily. For 30 days ehafggepuydj-kwbzlish-gjampee k-coenzyme Q-10 (DEKAS PLUS) 200 mcg-1,000 mcg-10 [...] nt here- she had this done at [facility]. We will call to get the results. I am going to have her see Dr Albright for acupuncture for the neuropathy Given her alcohol abuse history we will not be furnishing controlled substances I am going to refer her for the chronic pain rehab program as well Patient Instructions Ice and heat as tolerated Activity as tolerated I spent a total of 15 minutes on the date of the service which included preparing to see the patient, uyox-ac-phng patient care, completing clinical documentation, and ordering medications, tests, orprocedures Aundrea Shultz APRN.CNP I have communicated my name and active licensure. The patient's identity and physical location wereverified at the time of this visit. Either the patient or their legal workforce services representative has been informed of the risks and benefits of -- and alternatives to -- treatment through a remote evaluation andconsents to proceed with the evaluation remotely. documented in this encounterRegency Hospital [facility]11-08-2023 Instructions* Patient Instructions* Aundrea Shultz APRN.CNP - 09/25/2023 2:44 PM EST Ice and heat as tolerated Activity as tolerated documented in this encounterRegency Hospital [facility]10-22-2023 History of Present illness Narrative* Regina Rondon RT(Jim) - 09/08/2023 4:40 PM EDT Radiology Service Progress Note PATIENT NAME: Dominic Jimenez DATE OF SERVICE: September 08, 2023 TIME: 4:36 PM PATIENT IDENTITY VERIFICATION COMPLETED USING TWO (2) IDENTIFIERS: Name and Date of confirmedby patient verbally. FALL SCREENING: Has the patient had 2 falls in the last year or 1 fall with injury or currently using an Ambulatory Assistive Device (Walker, Cane, Wheelchair, Crutches, etc.)? No PATIENT GENDER DATA: Female. status: : No status: NO. PATIENT RELEVANT IMPLANT DATA REVIEWED: Not Applicable RADIOLOGY DEPARTMENT: General X-ray: Exam(s) Completed: Lower Extremity X- Ray(s): Foot, Right PERIPHERAL IV DATA: Not applicable SIGNED BY: RT Benja(R) September 08, 2023 4:36 PM documented in this encounterRegency Hospital [facility]10-22-2023 Instructions* Patient Instructions* Cr Mace MD - 09/08/2023 4:25 PM EDT Rest elevation ice OTC pain med Limit activities, no running jumping no heavy duty F/u PCP for further evaluation and care Explained details Final x-ray report is pending documented in this encounterRegency Hospital [facility]10-22-2023 History of Present illness Narrative* Cr Mace MD - 09/08/2023 4:19 PM EDT Dominic Jimenez is a 53 year old [...] Delirium 10/2021 prolonged hospital stay 09/2021-10/2021 at [facility] Depression Esophageal varices (HCC) Fatigue Hepatic encephalopathy [...] 250 mg by mouth once daily. glucosamine/chondr paniagua A sod (GLUCOSAMINE-CHONDROITIN) 750-600 mg tab Take [...] by mouth once daily. For 30 days tktsipaouudn-rzlyrzwq-kpftnmn k-coenzyme Q-10 (DEKAS PLUS) 200 mcg-1,000 mcg-10 [...] details Final x-ray report is pending Cr Mace MD documented in this encounterRegency Hospital [facility]10-20-2023 Instructions* Patient Instructions* Aure Carlton APRN.[facility] - 09/06/2023 2:27 PM EDT Discuss starting Lexapro 5mg or Celexa 10mg with Dr. Sarabia. Let me know. We will d/c buspirone at that time. Increase trazodone to 100mg for sleep. documented in this encounterRegency Hospital [facility] West10-20-2023 History of Present illness Narrative* Aure Carlton APRN.CNP - 09/06/2023 2:05 PM EDT Dominic Jimenez is a 53 year old [...] 5.4 4.3 - 6.0 % Final Comment: [place] [employer] guidelines indicate that patients with [...] Delirium 10/2021 prolonged hospital stay 09/2021-10/2021 at [facility] Depression Esophageal varices (HCC) Fatigue Hepatic encephalopathy [...] 250 mg by mouth once daily. glucosamine/chondr paniagua A sod (GLUCOSAMINE-CHONDROITIN) 750-600 mg tab Take [...] 40 mg by mouth daily at bedtime. sfizhgntslos-emzngmvr-xbamxww k-coenzyme Q-10 (DEKAS PLUS) 200 mcg-1,000 mcg-10 [...] disturbance. Negative for dysphoric mood. The patient isnervous/anxious. All other systems reviewed and are negative. [...] and starting Celexa or Lexapro. Would like todiscuss first with her GI, DrViv Friend. She will advise after that. 3. [...] V76.51, ICD10: Z12.11 - COLOGUARD Aure Carlton APRN.[employer] PATIENT NAME: Dominic Jimenez DATE: September 06, 2023 SIGNATURE: Aure Carlton APRN.CNP documented in this encounterRegency Hospital [facility]10-20-2023 Nurse Note* Alireza Fernandez MA - 09/06/2023 1:58 PM EDT 4 week follow up Alireza Fernandez MA September 06, 2023 1:59 PM documented in this encounterRegency Hospital [facility] West10-18-2023 Miscellaneous Notes* Telephone Encounter - Alireza Fernandez MA - 09/04/2023 1:27 PM EDT Called patient and provided information. Patient voiced understanding she will scheduled with PM . Will discuss sleep issues at OV Saturday. Alireza Fernandez MA September 04, 2023 1:30 PM * Telephone Encounter - Alireza Fernandez MA - 09/04/2023 1:17 PM EDT Patient called and stated she is having [...] 04, 2023 1:21 PM documented in this encounterRegency Hospital [facility] West09-29-2023 Miscellaneous Notes* Telephone Encounter - Aure Carlton APRN.CNP - 08/16/2023 10:45 AM EDT Has she tried Tylenol or ibuprofen for [...] management. I will order for physical therapy. * Addendum Note - Aure Carlton APRN.CNP - 08/16/2023 10:45 AM EDTAddended by: AURE CARLTON on: 08/16/2023 10:45 AM Modules accepted: Orders * Telephone Encounter - Stephenie Major MA - 08/16/2023 10:10 AM EDT Dominic was here on 08/14/2023. She called asking if you could send something in for her throat. It feels like it's on fire. Pharmacy is in her chart. [facility] in [place] She also asked if you would send in 1 or 2 Oxy's for her as her neuropathy is really bad the last few days. She would also like a referral to Physical Therapy to strengthen her legs. Please advise. STEPHENIE MAJOR MA August 16, 2023 10:13 AM documented in this encounterRegency Hospital [facility] West07-09-2023 History of Present illness Narrative* Gretchen Andersen DO - 05/26/2023 11:08 AM EDT Dominic iJmenez is a 53 year old FEMALE who presents with Nasal Congestion (AND CHEST CONGESTION W EARPAIN AND SOB X10 DAYS) HPI PAST MEDICAL HISTORY Diagnosis Date Alcoholic cirrhosis (HCC) Alcoholic hepatitis Anemia Clostridium difficile infection COVID-19 virus infection 08/2021 hospitalized Delirium 10/2021 prolonged hospital stay 09/2021-10/2021 at [facility] Depression Esophageal varices (HCC) Fatigue Hepatic encephalopathy [...] affected area twice daily. 20 g 0 Stulivqewhjjr-Foabsyvw-Spxvcn (MULTIVITAMIN 50 PLUS) tab Take 1 tablet [...] 0.5 tablets by mouth daily at bedtime. hffixkqaotjm-ecgmulxo-dndonwy k-coenzyme Q-10 (DEKAS PLUS) 200 mcg-1,000 mcg-10 mg chewable tablet Take 1 tablet by mouth once daily. copper citrate 2 mg capsule Take 1 capsule by mouth once daily. folic acid 1 mg tablet Take 1 mg by mouth once daily. pantoprazole (PROTONIX) 40 mg tablet Take 40 mg [...] NOTUSE FOR MORE THAN 1-2 WEEKS CONSISTENTLY (Patient [...] know what to do she has 2 medicinesthat are running out her physician will not [...] MG CAPSULE - TIZANIDINE 4 MG TABLET Gretchen Andersen documented in this encounterRegency Hospital [facility] West07-04-2023 History of Present illness Narrative* Peter Austin, RT(R) - 05/21/2023 1:00 PM EDT Radiology Service Progress Note PATIENT NAME: Dominic Jimenez DATE OF SERVICE: May 21, 2023 TIME: 12:50 PM PATIENT IDENTITY VERIFICATION COMPLETED USING TWO (2) IDENTIFIERS: Name and Date of confirmedby patient verbally. FALL SCREENING: Has the patient had 2 falls in the last year or 1 fall with injury or currently using an Ambulatory Assistive Device (Walker, Cane, Wheelchair, Crutches, etc.)? No PATIENT GENDER DATA: Female. status: : No status: N/A PATIENT RELEVANT IMPLANT DATA REVIEWED: Not Applicable RADIOLOGY DEPARTMENT: General X-ray: Exam(s) Completed: Lower Extremity X- Ray(s): Foot, Right PERIPHERAL IV DATA: Not applicable SIGNED BY: RT Shereen(R) May 21, 2023 12:50 PM documented in this encounterRegency Hospital [facility] West06-21-2023 Miscellaneous Notes* Telephone Encounter - Charlotte Cordero LPN - 05/08/2023 1:22 PM EDT Spoke with patient and patient states she has only taken one day of the ATB so she isn't sure if she is feeling better yet or not. Explained lab results to patient and patient states understanding and voices no other concerns at this time. Charlotte Cordero LPN * Telephone Encounter - Charlotte Cordero LPN - 05/08/2023 1:09 PM EDT Left message for patient to call back. Charlotte Cordero LPN * Telephone Encounter - Charlotte Cordero LPN - 05/08/2023 1:08 PM EDT ----- Message from Cr Mace MD sent at 05/08/2023 12:57 PM EDT ----- Please notify patient that if there is no improvement from the treatment he will need to be rechecked. She should follow-up with her doctor for evaluation and care documented in this encounterRegency Hospital [facility]06-20-2023 History of Present illness Narrative* Carol Centeno MD - 05/07/2023 12:34 PM EDT Patient is a 53-year-old with body itching [...] localized she switched her progesterone medication so shewill contact her doctor to prescribe that and see if he wants to change that. She does have an increased bilirubin which could be a cause of her pruritus. She will contact her liver doctor. Any worsening to go to the ER documented in this encounterRegency Hospital [facility] West06-08-2023 Note. MICRO - Microbiology PROCEDURE: Urine Culture [*1] [...] Locations *1: This test was performed at: [facility], [address] [place] [address], [id number]- , [facility] ([place])03-14-2023 History of Present illness Narrative* Riya Minaya MA - 03/14/2023 8:52 AM EDT Review of Systems Constitutional: Negative for activity [...] and suicidal ideas. The patient is nervous/anxious. * Tere Painter MD - 03/04/2023 10:58 AM EDT Images from the original note were not included. [facility] Name: Dominic Jimenez : 1970 Purpose: [...] fell several times since last encounter. Most recently,she tripped on a rug in the house; another time was wearing no slip socks and slipped on her floor. 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 All prescriptions have been APPROPRIATELY filled. No suspiciousactivity was identified. 03/14/2023 by Tere Painter MD [...] DATE OF EXAM: Oct 10 2021 7:48AM [facility] 0304 - MRI LUMBAR SPINE WO/W IVCON [...] and assume there are 5 lumbar-type vertebrae. Forming Operator: [facility] Transcribe Date/Time: Oct 10 2021 7:55A Dictated [...] of the left convexity subdural collection. Remaining fjrrh-wbxlz-zgdf tissues are stable with mild senescent volume [...] was advised that they will need a frontload driver for after the procedure and that if no frontload driver is available and on site at [...] Referrals: No additional considerations at present Functional Adventist: Continue PT Depending on response to the [...] [facility] documented in this encounterRegency Hospital [facility]04-18-2023 History of Past illness Narrative* Problem Noted Date Diagnosed Date Resolved Date Alcoholic hepatitis 03/05/2023 08/14/2023 08/14/20 23 Malnutrition of moderate degree 10/31/2021 08/14/2023 Acute metabolic encephalopathy 10/12/2021 08/14/2023 Delirium due to multiple glen ologies, acute, hyperactive 10/07/2021 08/14/2023 documented as of this encounter (statuses as of 08/16/2023) [address]18-2023 History of Past illness Narrative* Problem Noted Date Diagnosed Date Resolved Date Alcoholic hepatitis 03/05/2023 08/14/2023 08/14/20 23 Malnutrition of moderate degree 10/31/2021 08/14/2023 Acute metabolic encephalopathy 10/12/2021 08/14/2023 Delirium due to multiple glen ologies, acute, hyperactive 10/07/2021 08/14/2023 documented as of this encounter (statuses as of 09/04/2023) [address]18-2023 History of Past illness Narrative* Problem Noted Date Diagnosed Date Resolved Date Alcoholic hepatitis 03/05/2023 08/14/2023 08/14/20 23 Malnutrition of moderate degree 10/31/2021 08/14/2023 Acute metabolic encephalopathy 10/12/2021 08/14/2023 Delirium due to multiple glen ologies, acute, hyperactive 10/07/2021 08/14/2023 documented as of this encounter (statuses as of 09/07/2023) [address]18-2023 History of Past illness Narrative* Problem Noted Date Diagnosed Date Resolved Date Alcoholic hepatitis 03/05/2023 08/14/2023 08/14/20 23 Malnutrition of moderate degree 10/31/2021 08/14/2023 Acute metabolic encephalopathy 10/12/2021 08/14/2023 Delirium due to multiple glen ologies, acute, hyperactive 10/07/2021 08/14/2023 documented as of this encounter (statuses as of 09/08/2023) [address]18-2023 History of Past illness Narrative* Problem Noted Date Diagnosed Date Resolved Date Alcoholic hepatitis 03/05/2023 08/14/2023 08/14/20 23 Malnutrition of moderate degree 10/31/2021 08/14/2023 Acute metabolic encephalopathy 10/12/2021 08/14/2023 Delirium due to multiple glen ologies, acute, hyperactive 10/07/2021 08/14/2023 documented as of this encounter (statuses as of 09/26/2023) [address]18-2023 History of Past illness Narrative* Problem Noted Date Diagnosed Date Resolved Date Alcoholic hepatitis 03/05/2023 08/14/2023 08/14/20 23 Malnutrition of moderate degree 10/31/2021 08/14/2023 Acute metabolic encephalopathy 10/12/2021 08/14/2023 Delirium due to multiple glen ologies, acute, hyperactive 10/07/2021 08/14/2023 documented as of this encounter (statuses as of 09/26/2023) [address]18-2023 History of Past illness Narrative* Problem Noted Date Diagnosed Date Resolved Date Alcoholic hepatitis 03/05/2023 08/14/2023 08/14/20 23 Malnutrition of moderate degree 10/31/2021 08/14/2023 Acute metabolic encephalopathy 10/12/2021 08/14/2023 Delirium due to multiple glen ologies, acute, hyperactive 10/07/2021 08/14/2023 documented as of this encounter (statuses as of 10/01/2023) [address]18-2023 History of Past illness Narrative* Problem Noted Date Diagnosed Date Resolved Date Alcoholic hepatitis 03/05/2023 08/14/2023 08/14/20 23 Malnutrition of moderate degree 10/31/2021 08/14/2023 Acute metabolic encephalopathy 10/12/2021 08/14/2023 Delirium due to multiple glen ologies, acute, hyperactive 10/07/2021 08/14/2023 documented as of this encounter (statuses as of 10/23/2023) [address]18-2023 History of Past illness Narrative* Problem Noted Date Diagnosed Date Resolved Date Alcoholic hepatitis 03/05/2023 08/14/2023 08/14/20 23 Malnutrition of moderate degree 10/31/2021 08/14/2023 Acute metabolic encephalopathy 10/12/2021 08/14/2023 Delirium due to multiple glen ologies, acute, hyperactive 10/07/2021 08/14/2023 documented as of this encounter (statuses as of 11/02/2023) [address]18-2023 History of Past illness Narrative* Problem Noted Date Diagnosed Date Resolved Date Alcoholic hepatitis 03/05/2023 08/14/2023 08/14/20 23 Malnutrition of moderate degree 10/31/2021 08/14/2023 Acute metabolic encephalopathy 10/12/2021 08/14/2023 Delirium due to multiple glen ologies, acute, hyperactive 10/07/2021 08/14/2023 documented as of this encounter (statuses as of 11/02/2023) [address]18-2023 History of Past illness Narrative* Problem Noted Date Diagnosed Date Resolved Date Alcoholic hepatitis 03/05/2023 08/14/2023 08/14/20 23 Malnutrition of moderate degree 10/31/2021 08/14/2023 Acute metabolic encephalopathy 10/12/2021 08/14/2023 Delirium due to multiple glen ologies, acute, hyperactive 10/07/2021 08/14/2023 documented as of this encounter (statuses as of 11/03/2023) [address]18-2023 History of Past illness Narrative* Problem Noted Date Diagnosed Date Resolved Date Alcoholic hepatitis 03/05/2023 08/14/2023 08/14/20 23 Malnutrition of moderate degree 10/31/2021 08/14/2023 Acute metabolic encephalopathy 10/12/2021 08/14/2023 Delirium due to multiple glen ologies, acute, hyperactive 10/07/2021 08/14/2023 documented as of this encounter (statuses as of 11/17/2023) [address]18-2023 History of Past illness Narrative* Problem Noted Date Diagnosed Date Resolved Date Alcoholic hepatitis 03/05/2023 08/14/2023 08/14/20 23 Malnutrition of moderate degree 10/31/2021 08/14/2023 Acute metabolic encephalopathy 10/12/2021 08/14/2023 Delirium due to multiple glen ologies, acute, hyperactive 10/07/2021 08/14/2023 Hallucinations 10/06/2021 11/19/2023 documented as of this encounter (statuses as of 12/20/2023) [address]18-2023 History of Past illness Narrative* Problem Noted Date Diagnosed Date Resolved Date Alcoholic hepatitis 03/05/2023 08/14/2023 08/14/20 23 Malnutrition of moderate degree 10/31/2021 08/14/2023 Acute metabolic encephalopathy 10/12/2021 08/14/2023 Delirium due to multiple glen ologies, acute, hyperactive 10/07/2021 08/14/2023 Hallucinations 10/06/2021 11/19/2023 documented as of this encounter (statuses as of 12/30/2023) [address]18-2023 History of Past illness Narrative* Problem Noted Date Diagnosed Date Resolved Date Alcoholic hepatitis 03/05/2023 08/14/2023 08/14/20 23 Malnutrition of moderate degree 10/31/2021 08/14/2023 Acute metabolic encephalopathy 10/12/2021 08/14/2023 Delirium due to multiple glen ologies, acute, hyperactive 10/07/2021 08/14/2023 Hallucinations 10/06/2021 11/19/2023 documented as of this encounter (statuses as of 01/07/2024) [address]18-2023 History of Past illness Narrative* Problem Noted Date Diagnosed Date Resolved Date Alcoholic hepatitis 03/05/2023 08/14/2023 08/14/20 23 Malnutrition of moderate degree 10/31/2021 08/14/2023 Acute metabolic encephalopathy 10/12/2021 08/14/2023 Delirium due to multiple glen ologies, acute, hyperactive 10/07/2021 08/14/2023 Hallucinations 10/06/2021 11/19/2023 documented as of this encounter (statuses as of 01/24/2024) [address]18-2023 History of Past illness Narrative* Problem Noted Date Diagnosed Date Resolved Date Alcoholic hepatitis 03/05/2023 08/14/2023 08/14/20 23 Malnutrition of moderate degree 10/31/2021 08/14/2023 Acute metabolic encephalopathy 10/12/2021 08/14/2023 Delirium due to multiple glen ologies, acute, hyperactive 10/07/2021 08/14/2023 Hallucinations 10/06/2021 11/19/2023 documented as of this encounter (statuses as of 01/30/2024) [address]18-2023 History of Past illness Narrative* Problem Noted Date Diagnosed Date Resolved Date Alcoholic hepatitis 03/05/2023 08/14/2023 08/14/20 23 Malnutrition of moderate degree 10/31/2021 08/14/2023 Acute metabolic encephalopathy 10/12/2021 08/14/2023 Delirium due to multiple glen ologies, acute, hyperactive 10/07/2021 08/14/2023 Hallucinations 10/06/2021 11/19/2023 documented as of this encounter (statuses as of 03/04/2024) [facility] History of Past illness Narrative* Problem Noted Date Diagnosed Date Resolved Date Alcoholic hepatitis 03/05/2023 08/14/2023 08/14/20 23 Malnutrition of moderate degree 10/31/2021 08/14/2023 Acute metabolic encephalopathy 10/12/2021 08/14/2023 Delirium due to multiple glen ologies, acute, hyperactive 10/07/2021 08/14/2023 Hallucinations 10/06/2021 11/19/2023 documented as of this encounter (statuses as of 03/05/2024) [facility] History of Past illness Narrative* Problem Noted Date Diagnosed Date Resolved Date Alcoholic hepatitis 03/05/2023 08/14/2023 08/14/20 23 Malnutrition of moderate degree 10/31/2021 08/14/2023 Acute metabolic encephalopathy 10/12/2021 08/14/2023 Delirium due to multiple glen ologies, acute, hyperactive 10/07/2021 08/14/2023 Hallucinations 10/06/2021 11/19/2023 documented as of this encounter (statuses as of 03/05/2024) [facility]04-[facility]-2023 NotePap Smear Specimen AdequacyApril 2022 4:35pmComment.Satisfactory for evaluation. Endocervical and/or squamous metaplasticcells (endocervical component)are present.[facility] INTER[facility]ACED A#[id number] Bethesda North HospitalComment on above:Satisfactory for evaluation. Endocervical and/or squamous metaplasticcells (endocervical component)are present.02-10-2023 Instructions* Patient Instructions* Cr Mace MD - 02/10/2023 1:54 PM EDT Fluids, f/u PCP Recheck if any change Explained details documented in this encounterRegency Hospital [facility] West03-26-2023 History of Present illness Narrative* Cr Mace MD - 02/10/2023 12:19 PM EDT Dominic [...] Delirium 10/2021 prolonged hospital stay 09/2021-10/2021 at [facility] Depression Esophageal varices (HCC) Fatigue Hepatic encephalopathy [...] 0.5 tablets by mouth daily at bedtime. tveedvfjlnjh-tpqympfx-xakcndi k-coenzyme Q-10 (DEKAS PLUS) 200 mcg-1,000 mcg-10 [...] quantity of urine for the culture Cr Mace MD documented in this encounterRegency Hospital [facility]02-19-2023 History of Present illness Narrative* Gretchen Andersen, DO - 01/06/2023 3:06 PM EST Dominic Jimenez is a 52 year old FEMALE who presents with rib pain (Left rib pain -- congestion in throat) HPI PAST MEDICAL HISTORY Diagnosis Date Alcoholic cirrhosis (HCC) Alcoholic hepatitis Anemia Clostridium difficile infection COVID-19 virus infection 08/2021 hospitalized Delirium 10/2021 prolonged hospital stay 09/2021-10/2021 at [facility] Depression Esophageal varices (HCC) Fatigue Hepatic encephalopathy [...] 0.5 tablets by mouth daily at bedtime. wuidsreoapyr-wqwsiriw-cfrtiyi k-coenzyme Q-10 (DEKAS PLUS) 200 mcg-1,000 mcg-10 [...] for further evaluation and treatment. She chooses [facility] she lives close to their. Her is here he is going to drive her straight over. She was given a consultation referral form to take with her. documented in this encounterRegency Hospital [facility]02-13-2023 History of Present illness Narrative* Ash Duke PA-C - 12/31/2022 12:26 PM EST HPI: Dominic Jimenez is a 52 year old female who presents with rib pain (Left side rib pain from fall this morning, burning with urination possible blood in urine-----4 days). PAST MEDICAL HISTORY Diagnosis Date Alcoholic cirrhosis (HCC) Alcoholic hepatitis Anemia Clostridium difficile infection COVID-19 virus infection 08/2021 hospitalized Delirium 10/2021 prolonged hospital stay 09/2021-10/2021 at [facility] Depression Esophageal varices (HCC) Fatigue Hepatic encephalopathy [...] 0.5 tablets by mouth daily at bedtime. mwbujtrxjkzr-qsoefovw-xitylxh k-coenzyme Q-10 (DEKAS PLUS) 200 mcg-1,000 mcg-10 [...] Put on 5-day course of Bactrim Ash Duke PA-C This note was generated with voice recognition software and may contain errors, including spelling,grammar, syntax and misrecognition of what was dictated, that are not fully corrected. documented in this encounterRegency Hospital [facility]02-13-2023 History of Present illness Narrative* Haydee Luu, RT(R) - 12/31/2022 12:00 PM EST Radiology Service Progress Note PATIENT NAME: Dominic Jimenez DATE OF SERVICE: December 31, 2022 TIME: 12:20 PM PATIENT IDENTITY VERIFICATION COMPLETED USING TWO (2) IDENTIFIERS: Name and Date of confirmedby patient verbally. FALL SCREENING: Has the patient [...] BY: RT Elizabeth(R) December 31, 2022 12:20 PM documented in this encounterRegency Hospital [facility]02-09-2023 History of Present illness Narrative* Riya Minaya [...] not included. 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 Forming Operator: [facility] Transcribe Date/Time: Oct 10 2021 7:55A Dictated [...] of the left convexity subdural collection. Remaining tcmct-bfdhi-cdvq tissues are stable with mild senescent volume [...] was advised that they will need a frontload driver for after the procedure and that if no frontload driver is available and on site at the time of the procedure, the procedure will be cancelled. For any anticoagulants, the patient was advised on whether to continue or hold for this procedure. The patient expressed understanding and gave verbal consent to proceed. Medication(s): continue Cymbalta and Neurontin Additional Studies: none Referrals: No additional considerations at present Functional Adventist: [facility] (PT and OT) Depending on response [...] [facility] documented in this encounterRegency Hospital [facility]07-28-2022 Miscellaneous Notes* Telephone Encounter - Mena Ramirez RN - 06/14/2022 2:33 PM EDT Spoke with pt. She wants to close her referral at this time. She spoke with Dr. Sarabia (referring) and he said that she could hold off and he will refer if needed down the road when she is worsening.Mena Ramirez RN documented in this encounterRegency Hospital [facility] West07-28-2022 Miscellaneous Notes* Telephone Encounter - Pradeep Mehta - 06/14/2022 11:54 AM EDT Patient called in returning phone call from Mena. Coordinator was out the office on day of call.Patient advise she will call back next day to speak with mena. documented in this [facility]07-28-2022 Miscellaneous Notes* Telephone Encounter - Mena Ramirez [...] previously. Mena Ramirez RN documented in this [facility]07-21-2022 Miscellaneous Notes* Telephone Encounter - Mena Ramirez [...] referral. Mena Ramirez RN documented in this [facility]07-13-2022 Miscellaneous Notes* Telephone Encounter - Mena Ramirez RN - 05/30/2022 10:48 AM EDT Call to pt to f/u on scheduling appts for evaluation. Left vm for her to return call to the office.Mena Ramirez RN documented in this encounterMead ClinicDischarge summary Author Darrian Singh [facility] July 07, 2023 5:57am Note Date/Time July 07, 2023 5: 54am [facility] Medical Records Department [address] [place] [address] Emergency Department Summary 07/07/23 MR#: [id number] Acct: [id number] Name: DOMINIC JIMENEZ Rep #:[id number] : 1970 53 From: Darrian Singh DO PCP: Care Physician,No Primary Status :REG ER Location: ED HPI History of Present Illness Chief Complaint: General Illness Narrative Narrative: Patient presenting with flareup of her peripheral neuropathy on bilateral lower extremities. She states she takes gabapentin 300 mg 3 times daily. She also took a couple of extra 100 mg doses which she was told she could take if she hadflareups. She denies any other changes in her medications. Denies any trauma. Patient states has been seen by pain management and states that this is the appropriate medication that her PCP put her on. She has between PCPs because she does not like the one she has and she is waiting for a new one locally. Shestates he has plenty of gabapentin. She was referred to neurology at 1 point and per the patient the neurologist asked her why she was sent here. Patient states she has not had any change in medications. Patient states the flareup started yesterday but since she is in between PCPs she does not have anybody to treat her. Denies any new creams or lotions. She also states that she has had some dizziness recently. She states that her ears are ringing. Patient states that this is not why she came to the ED and she states she is here for the pain in her legs. [facility] Medical History Abnormal liver function test Alcohol use Alcoholic hepatitis Anemia Anxiety Cardiology follow-up encounter Chronic pain Cirrhosis of liver Gastric reflux History of Clostridium difficile infection History of edema History of pain when walking History of ulceration Leg cramps Migraine headache Neuropathy Non-smoker Non-smoker Post-menopausal Rash Splenomegaly Syncope Wears glasses Wernickes encephalopathy Home Medications melatonin 10 mg tablet 10 mg PO QHS 03/05/22 [History Last Taken Unknown] cholecalciferol (vitamin D3) 125 mcg (5,000 unit) tablet (Vitamin D3) 125 mcg PODAILY 04/04/22 [History Last Taken Unknown] folic acid 1 mg tablet 1 mg PO DAILY 04/04/22 [History Last Taken Unknown] multivitamin 1 cap PO DAILY 04/04/22 [History Last Taken Unknown] thiamine HCl (vitamin B1) 100 mg tablet (Vitamin B-1) 100 mg PO DAILY 04/04/22 [History Last Taken Unknown] trazodone 50 mg tablet 25 mg PO MOTUWETHFRSA SLEEP 04/04/22 [History Last Taken Unknown] nadolol 20 mg tablet 20 mg PO DAILY #30 tabs 03/11/23 [Rx Last Taken Unknown] pantoprazole 40 mg tablet,delayed release 40 mg PO DAILY #90 tabs 03/11/23 [Rx Last Taken Unknown] ginkgo biloba 60 mg capsule 60 mg PO DAILY 05/08/23 [History Last Taken Unknown] glucosamine 500 yl-zycmehogp-laaddfig comp 400 mg-D3 667 unit-C-Mn cap (Tgrbaxnokxm-Puocfcnxqiz-J1(C-manganese)) 1 cap PO DAILY 05/08/23 [History Last Taken Unknown] magnesium 250 mg tablet 250 mg PO DAILY 05/08/23 [History Last Taken Unknown] milk thistle 175 mg capsule 175 mg PO DAILY 05/08/23 [History Last Taken Unknown] progesterone micronized 100 mg capsule 500 mg PO QHS 05/08/23 [History Last Taken Unknown] tizanidine 4 mg capsule 4 mg PO Q8H PRN Pain 05/08/23 [History Last Taken Unknown] gabapentin 300 mg capsule 300 mg PO TID #90 caps 06/07/23 [Rx Last Taken Unknown] famotidine 40 mg tablet 40 mg PO QHS #90 tabs 06/11/23 [Rx Last Taken Unknown] duloxetine 60 mg capsule,delayed release 60 mg PO BID 07/07/23 [History Last Taken Unknown] lactulose 10 gram/15 mL (15 mL) oral solution 15 ml PO TID PRN ammonia 07/07/23 [History Last Taken Unknown] lidocaine 5 % topical ointment 1 applic topical TID PRN pain #50 grams 07/07/23 [Rx Last Taken Unknown] oxycodone 5 mg tablet 5 mg PO Q6H PRN pain 1 day #4 tabs 07/07/23 [Rx Last Taken Unknown] Allergy/AdvReac Type Severity Reaction Status Date / Time No Known Allergies Allergy Verified 06/07/23 15:07 Family History Mother Dementia Father Diabetes Surgical History History of esophagogastroduodenoscopy (EGD) History of liver biopsy History of tonsillectomy and adenoidectomy Social History household members: spouse Smoking Status: Never smoker alcohol intake: former year quit: 2020 substance use type: does not use ROS ROS ED ROS Narrative Dizziness Constitutional Constitutional ED: Denies chills, fever(s) or sweats Eyes Eyes: Denies blurry vision or change in vision ENT ENT ED: Reports other Details: Tinnitus ; Denies ear pain or sore throat Cardiovascular Cardiovascular: Denies chest pain, palpitations or racing heartbeat Respiratory/Chest Respiratory/Chest: Denies cough, dyspnea or sputum Gastrointestinal Gastrointestinal: Denies abdominal pain, constipation, diarrhea, nausea or vomiting Genitourinary Genitourinary ED: Denies dysuria, hematuria or urinary frequency Musculoskeletal Musculoskeletal: Reports other Details: Bilateral leg pain ; Denies arthralgias, myalgias or neck pain Integumentary Denies abscess, Abrasions or rash Neurologic Neurologic: Denies headache(s), paresthesias or weakness Psychiatric Psychiatric: Denies anxiety, depression, suicidal ideation or suicidal thoughts Endocrine Endocrinology: Denies polydipsia or polyuria EXAM Physical Exam Const Vital Signs: 07/07/23 05:01 07/07/23 05:07 Temperature 97.7 F L Temperature Source Oral Pulse Rate 79 Respiratory Rate 20 H Respiratory Effort Normal Non-Labored Respiratory Pattern Normal Blood Pressure 145/85 H Blood Pressure Mean 105 Pulse Ox 100 Oxygen Delivery Method Room Air Positive well nourished HEENT Reports moist mucous membranes Eyes PERRL Resp normal respiratory effort Effort and Inspection: Negative for retractions Cardio regular rate and regular rhythm Extremity Extremity Narrative: Tenderness to palpation bilateral lower extremities. No rashes, bruising, bony tenderness. Neurovascularly intact. Neuro oriented x3 Sensorium / Orientation: alert Motor Exam: strength 5/5 throughout Psych mental status grossly normal Skin no rashes or lesions noted and no wounds MDM MDM MDM Narrative Medical decision making narrative: Patient presenting with flareup of her bilateral peripheral neuropathy. She is already taking gabapentin 300 mg and 2 extra doses of 100 mg tabs. She is also stating she had some lightheadedness and ringing in her ears but she does not want this evaluated. Did offer to do blood work and imaging but she declines. I counseled the patient this is a chronic condition I can give her an oxycodone here in enough to get her through Saturday until she can see a regular doctor or pain management doctor. She is amenable to this. I also prescribed her some lidocaine cream for her legs to see if this would help with her pain. She is tocontinue her gabapentin as prescribed. Return precautions are discussed. Impression: 1. Peripheral neuropathy Discharge Plan Triage Chief Complaint: General Illness ED Provider: Darrian Singh Dx/Rx/DC Orders Instructions: ED Neuropathy, Peripheral Prescriptions: New oxycodone 5 mg tablet 5 mg PO Q6H PRN (Reason: pain) 1 Days Qty: 4 0RF lidocaine 5 % ointment 1 applic topical TID PRN (Reason: pain) Qty: 50 0RF No Action gabapentin 300 mg capsule 300 mg PO TID Qty: 90 3RF melatonin 10 mg Tablet 10 mg PO QHS folic acid 1 mg Tablet 1 mg PO DAILY multivitamin Capsule 1 cap PO DAILY trazodone 50 mg Tablet 25 mg PO MOTUWETHFRSA Rx Instructions: DONT TAKE ON SATURDAY thiamine HCl (vitamin B1) [Vitamin B-1] 100 mg Tablet 100 mg PO DAILY cholecalciferol (vitamin D3) [Vitamin D3] 125 mcg (5,000 unit) Tablet 125 mcg PO DAILY magnesium 250 mg Tablet 250 mg PO DAILY ginkgo biloba 60 mg Capsule 60 mg PO DAILY Rx Instructions: give with meal/snack progesterone micronized 100 mg Capsule 500 mg PO QHS tizanidine 4 mg Capsule 4 mg PO Q8H PRN (Reason: Pain) milk thistle 175 mg Capsule 175 mg PO DAILY Rx Instructions: give with meal/snack Mqwhmbbiksm-Aeumnd-A4 (C-christiano) 500-400-667 mg-mg-unit Capsule 1 cap PO DAILY duloxetine 60 mg capsule,delayed release(DR/EC) 60 mg PO BID lactulose 10 gram/15 mL (15 mL) solution 15 ml PO TID PRN (Reason: ammonia) pantoprazole 40 mg tablet,delayed release (DR/EC) 40 mg PO DAILY Qty: 90 2RF nadolol 20 mg tablet 20 mg PO DAILY Qty: 30 11RF famotidine 40 mg tablet 40 mg PO QHS Qty: 90 5RF Primary Care Provider: Care Physician,No Primary Referrals: Care Physician,No Primary [Primary Care Provider] - Disposition Disposition: Home, Self Care What to do if you have Problems For any increased pain, shortness of breath, bleeding, nausea or vomiting, chestpain, or any unexpected problems, contact your Primary Care Provider. Call [facility] ([phone]) or report to the closest Emergency Room. Call 911 if necessary. 07/07/23 0557 <Electronically signed by Darrian Singh DO> Cosigner Signature (if applicable): CC: No Primary Care Physician ~ Signed [facility] Work Phone: evaluation note* Diagnosis Onset Date Resolution Status Alcoholic hepatitis acute Wernickes encephalopathy acu te [facility] Work Phone: Evaluation note* Diagnosis Onset Date Resolution Status Alcoholic hepatitis acute Wernickes encephalopathy acu te Alcoholic hepatitis acute Cirrhosis of liver acute Wernickes encephalopathy acu te [facility] Work Phone: evaluation note* Diagnosis Onset Date Resolution Status Alcoholic hepatitis acute Cirrhosis of liver acute Wernickes encephalopathy acu te Alcoholic hepatitis acute Cirrhosis of liver acute Wernickes encephalopathy acu te [facility] Work Phone: Evaluation note* Diagnosis Onset Date Resolution Status Alcoholic hepatitis acute Cirrhosis of liver acute Wernickes encephalopathy acu te Alcoholic hepatitis acute Cirrhosis of liver acute Wernickes encephalopathy acu te Cellulitis of left leg acute Cirrhosis of liver acute Sepsis acute [facility] Work Phone: Evaluation note* Diagnosis Onset Date Resolution Status Alcoholic hepatitis acute Wernickes encephalopathy acu te Cellulitis of left leg resol juan f Sepsis resolved [facility] Work Phone: Evaluation note* Diagnosis Onset Date Resolution Status Alcoholic hepatitis acute Cirrhosis of liver acute Wernickes encephalopathy acu te Cirrhosis of liver acute Cellulitis of left leg resol juan f Sepsis resolved Alcoholic hepatitis acute Cirrhosis of liver acute Wernickes encephalopathy acu [facility] Work Phone: Evaluation note* Diagnosis Alcoholic peripheral neuropathy (HCC)- Primary Alcoholic polyneuropathy [facility] Diagnosis Rib contusion, left, initial encounter- Primary Recurrent UTI (urinary tract infection) Urinary tract infection, site not specified [facility] Diagnosis Contusion of rib on left side, subsequent encounter- Primary Injury of spleen, initial encounter [facility]* Diagnosis Dysuria- Primary Acute cystitis with hematuria Acute cystitis [facility] noteNo assessment information [facility]WTri[facility] Work Phone: [facility]* Diagnosis Alcoholic peripheral neuropathy (HCC)- Primary Alcoholic polyneuropathy [facility]* Diagnosis Onset Date Resolution Status Alcoholic hepatitis chronic Cirrhosis of liver chronic [facility]ernickes encephalopathy [facility]* Diagnosis Dysuria- Primary Acute cystitis without hematuria Acute cystitis Pruritus Unspecified pruritic disorder [facility]* Diagnosis Anxiety with depression- Primary Bronchitis Bronchitis, not specified as acute or chronic Neuropathy Mononeuritis of unspecified site [facility] Leg weakness, bilateral- Primary Other musculoskeletal symptoms referable to limbs Peripheral nerve disease Mononeuritis of unspecified site [facility]* Diagnosis Insomnia, unspecified type- Primary Anxiety Anxiety state, unspecified Hallucinations Peripheral nerve disease Mononeuritis of unspecified site Screening for colon cancer Special screening for malignant neoplasms, colon [facility]* Diagnosis Pain of right foot- Primary Pain in limb Sprain of right foot, initial encounter [facility]* Diagnosis Alcoholic peripheral neuropathy (HCC)- Primary Alcoholic polyneuropathy Pain in soft tissues of limb Pain in limb [facility]* Diagnosis Peripheral nerve disease Mononeuritis of unspecified site [facility]* Diagnosis URI, acute- Primary Acute upper respiratory infections of unspecified site Foot pain, right Pain in limb documented in this encounter [facility] note* Diagnosis Foot pain, right Pain in limb documented in this encounter [facility] note* Diagnosis URI, acute- Primary Acute upper respiratory infections of unspecified site documented in this encounter [facility] note* Diagnosis Neuropathy Mononeuritis of unspecified site documented in this encounter [facility] note* Diagnosis Neuropathy- Primary Mononeuritis of unspecified site documented in this encounter [facility] note* Diagnosis Depression, unspecified depression type Anxiety Anxiety state, unspecified Insomnia, unspecified type documented in this encounter [facility] note* Diagnosis Laceration of dorsum of right foot- Primary documented in this encounter [facility] note* Diagnosis Foot laceration, right, subsequent encounter- Primary documented in this encounter [facility] note* Diagnosis Treatment not available- Primary Procedure not carried out for other reasons documented in this encounter [facility] note* Diagnosis Recurrent UTI (urinary tract infection)- Primary Urinary tract infection, site not specified Urinary problem Other urinary problems Encounter for removal of sutures Cellulitis of skin Cellulitis and abscess of unspecified site Visit for suture removal Encounter for removal of sutures documented in this encounter [facility] note* Diagnosis Hyperlipidemia, unspecified hyperlipidemia type- Primary Depression, unspecified depression type Anxiety Anxiety state, unspecified Insomnia, unspecified type Polyneuropathy, unspecified Vitamin D deficiency, unspecified Impaired fasting glucose Thrombocytopenia, unspecified (HCC) Thrombocytopenia, unspecified documented in this encounter [facility] note* Diagnosis Polyneuropathy, unspecified- Primary Neuropathy Mononeuritis of unspecified site documented in this encounter [facility] note* Diagnosis Alcoholic cirrhosis of liver without ascites (HCC)- Primary Alcoholic cirrhosis of liver documented in this encounter [facility] note* Diagnosis Esophageal varices without bleeding (HCC) Esophageal varices without mention of bleeding Unspecified cirrhosis of liver (HCC) documented in this encounter [facility] note* Diagnosis Anxiety- Primary Anxiety state, unspecified documented in this encounter [facility] note* Diagnosis Neuropathy Mononeuritis of unspecified site documented in this encounter [facility] note* Diagnosis Viral illness- Primary Unspecified viral infection, in conditions classified elsewhere and of unspecified site documented in this encounter [facility] note* Diagnosis Dysuria- Primary Urgency of urination [facility]* Diagnosis Laceration of dorsum of right foot documented in this encounter [facility] note* Diagnosis Pain of right foot Pain in limb documented in this encounter [facility] note* Diagnosis Contusion of right foot, initial encounter documented in this encounter [facility] note* Diagnosis Rib contusion, left, initial encounter documented in this encounter [facility] note* Diagnosis Neuropathy- Primary Mononeuritis of unspecified site [facility] Diagnosis Neuropathy Mononeuritis of unspecified site Anxiety Anxiety state, unspecified documented in this encounter [facility] note* Diagnosis Neuropathy- Primary Mononeuritis of unspecified site documented in this encounter [facility]* Diagnosis Anxiety Anxiety state, unspecified Anemia, unspecified type- Primary documented in this encounter [facility] note* Diagnosis Anemia, unspecified type- Primary Neuropathy Mononeuritis of unspecified site Anxiety Anxiety state, unspecified documented in this encounter [facility] note* Diagnosis Depression, unspecified depression type Anxiety Anxiety state, unspecified Polyneuropathy, unspecified [facility]* Diagnosis Anxiety Anxiety state, unspecified documented in this encounter [facility] note* Diagnosis Neuropathy- Primary Mononeuritis of unspecified site [facility] Diagnosis Neuropathy- Primary Mononeuritis of unspecified site Acute midline low back pain with left-sided sciatica documented in this encounter [facility] note* Diagnosis Hepatic encephalopathy (HCC)- Primary Hepatic encephalopathy [facility]* Diagnosis GARZA (dyspnea on exertion)- Primary Other dyspnea and respiratory abnormality Acute cough Acute pain of right shoulder [facility] Diagnosis Acute cough GARZA (dyspnea on exertion) Other dyspnea and respiratory abnormality [facility]* Diagnosis Spasm- Primary Abnormal involuntary movements documented in this encounter [facility] note* Diagnosis Neuropathy Mononeuritis of unspecified site [facility]* Diagnosis Acute pain of right shoulder- Primary Neuropathy Mononeuritis of unspecified site Bursitis of right shoulder Disorders of bursae and tendons in shoulder region, unspecified Acute pain of right shoulder documented in this encounter [facility] note* Diagnosis Acute pain of right shoulder documented in this encounter [facility] note* Diagnosis Acute cough- Primary Acute pain of right shoulder documented in this encounter [facility] note* Diagnosis Hyperlipidemia, unspecified hyperlipidemia type- Primary Alcoholic cirrhosis of liver without ascites (HCC) Alcoholic cirrhosis of liver Depression, unspecified depression type Anxiety Anxiety state, unspecified Pancytopenia (HCC) Other pancytopenia Vitamin D deficiency, unspecified Prediabetes Other abnormal glucose Insomnia, unspecified type Acute pain of right shoulder Polyneuropathy, unspecified Class 1 obesity with serious comorbidity and body mass index (BMI) of 31.0 to 31.9 in adult, unspecified obesity type documented in this encounter [facility] note* Diagnosis URI, acute- Primary Acute upper respiratory infections of unspecified site documented in this encounter [facility] note* Diagnosis Subacute cough- Primary Cough documented in this encounter [facility] note* Diagnosis Hyperlipidemia, unspecified hyperlipidemia type- Primary Alcoholic cirrhosis of liver without ascites (HCC) Alcoholic cirrhosis of liver Thrombocytopenia, unspecified Prediabetes Other abnormal glucose documented in this encounter [facility] note* Diagnosis Acute upper respiratory infection- Primary Acute upper respiratory infections of unspecified site Acute cough Bronchitis Bronchitis, not specified as acute or chronic documented in this encounter [facility] note* Diagnosis Subacute cough- Primary Cough documented in this encounter [facility] note* Diagnosis Chest congestion- Primary Other symptoms involving respiratory system and chest Acute cough documented in this encounter [facility] note* Diagnosis Depression, unspecified depression type Anxiety Anxiety state, unspecified Polyneuropathy, unspecified documented in this encounter [facility] note* Diagnosis Polyneuropathy, unspecified documented in this encounter [facility] note* Diagnosis Subacute cough- Primary Cough [facility] Lorenza Alberto, SHALA - 08/21/2024 3:00 PM EDT Images from the original note were not included. CHIEF COMPLAINT: Test results neuropathy HISTORY OF PRESENT ILLNESS: 54 year old female to follow up on test results and neuropathy via telemedicine visit, verbal consent obtained. Labs unremarkable. 08/12/24 EMG/NCS: consistent with peripheral neuropathy, severe degree. No suggestion of myopathy, mononeuropathies nor of more proximal processes. Last visit discussed to increase gbn, has not noticed a difference with n/t/burning sensation to bilateral feet, occasional will feel off balance, d/t can not feel feet. Tolerates gbn well. Follows up with GI routinely, has appt next week. Wants to check with GI before increasing dosage. All questions and concerns addressed. Initial visit 05/26/24 NMF: 54 yo female here with , reports dizzy, balance, headaches, memoryloss, ringing in ears which makes her dizzy leading to falls, last of which was last week, and felldown steps a few months ago leading to a laceration on foot. Describes sensation of walking on broken glass and wood. Reports had emg at [facility] in [place] showing neuropathy about 2yrs ago, was told due to etoh which she has abstained from for about 3yrs, neuropathy unchanged, although reports previously was unable to write but can now. 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 hasn't noted memory issues. Doesn't drive due to neuropathy and doesn't work. Current Outpatient Medications on File Prior to Visit Medication Sig Dispense Refill cholecalciferol (D-5000) 5,000 Units tablet Take 5,000 Units by mouth in the morning. cholestyramine (Questran) 4 g packet DISSOLVE IN WATER & TAKE 1 POWDER PACKET BY MOUTH TWICE DAILY NEEDED citalopram (CeleXA) 20 MG tablet Take 20 mg by mouth Daily Cranberry, Vacc oxycoccus, (HM Cranberry) 500 MG tablet Take 1 tablet by mouth in the morning and 1tablet at noon and 1 tablet in the evening. cyanocobalamin (Vitamin B-12) 1000 MCG tablet Take 1 tablet by mouth in the morning. D-Mannose 500 MG capsule Take 1,000 mg by mouth in the morning and 1,000 mg in the evening. DULoxetine (Cymbalta) [address] capsule Take 60 mg by mouth in the morning and 60 mg before bedtime. estradiol (Estrace) 0.1 MG/GM vaginal cream INSERT 1 GRAM VAGINALLY THREE TIMES A WEEK BEFORE BED famotidine (Pepcid) 40 MG tablet Take 40 mg by mouth at bedtime folic acid (Folvite) 1 MG tablet Take 1 mg by mouth in the morning. gabapentin (Neurontin) 300 MG capsule Take 2 capsules (600 mg) by mouth in the morning and 2 capsules (600 mg) in the evening and 2 capsules (600 mg) before bedtime. 180 capsule 3 Gemtesa 75 MG tablet Take by mouth at bedtime hydrOXYzine pamoate (Vistaril) 25 MG capsule Take 25 mg by mouth every 12 (twelve) hours if needed lactulose (Enulose) 10 GM/15ML solution oral solution GIVE 15 ML BY MOUTH THREE TIMES DAILY methocarbamol (Robaxin) 500 MG tablet Take 500 mg by mouth in the morning and 500 mg in the eveningand 500 mg before bedtime. MILK THISTLE EXTRACT PO Take 1 tablet by mouth in the morning. Multiple Vitamin (multivitamin) tablet Take 1 tablet by mouth in the morning. nadolol (Corgard) 20 MG tablet Take 20 mg by mouth Daily pantoprazole (ProtoNix) 40 MG EC tablet Take 40 mg by mouth in the morning. Take before meals. testosterone (Androgel) 12.5 MG/ACT (1%) gel Place on the skin Daily thiamine (Vitamin B-1) 100 MG tablet Take 100 mg by mouth Daily traZODone (Desyrel) 100 MG tablet TAKE 2 TABLETS BY MOUTH ONCE DAILY AT BEDTIME No current facility-administered medications on file prior to visit. Past Medical History: Diagnosis Date Anxiety Depression (CMS/HCC) Difficulty walking Headache HL (hearing loss) Insomnia Memory loss Numbness Peripheral neuropathy Weakness of limb Past Surgical History: Procedure Laterality Date CT GUIDED PERCUTANEOUS BIOPSY RETROPERITONEUM 10/17/2021 CT GUIDED PERCUTANEOUS BIOPSY RETROPERITONEUM 10/17/2021 Family History Problem Relation Name Age of Onset Depression Mother Sheri Anxiety disorder Father None. Just chose to be able to save Neuropathy Father None. Just chose to be able to save Social History Tobacco Use Smoking status: Never Smokeless tobacco: Never Substance Use Topics Alcohol use: Not Currently ALLERGIES: Patient has no known allergies. REVIEW OF SYSTEMS: General: Appetite change: denies. Chills: denies. Fever: denies. Allergy/Immunology: Unusual rection to medications, food, animals or insects reaction: denies. Ophthalmologic: Visual acuity change: denies. ENT: Decreased hearing: denies. Endocrine: Weight loss: denies. Respiratory: Cough: denies. Wheezing: denies. Cardiovascular: Chest pain: denies. Palpitations: denies. Gastrointestinal: Abdominal pain: denies. Difficulty swallowing: denies Hematology: Bleeding problems: denies. Genitourinary: Painful urination: denies. Musculoskeletal: Joint pain: denies. Joint edema: denies. Skin: Rash: denies. Neurologic: Ataxia: denies, Tremor: denies. Psychiatric Suicidal thoughts: denies. Also see HPI for elements of ROS documented therein and for details of positive findings, which shall supersede the foregoing. OBJECTIVE: Objective There were no vitals filed for this visit. There is no height or weight on file to calculate BMI. Examination: General Exam: pleasant, well nourished, well developed, in no acute distress Eyes: extraocular movement intact (EOMI) upper eyelids normal , lower eyelids normal Neurologic: nonfocal, alert and oriented, cognitive exam grossly normal, cranial nerves 2-12 grossly intact - Exam limited d/t telemedicine Psych: pleasant, cooperative, good eye contact , speech clear , judgement and insight good ASSESSMENT/PLAN: 1. Neuropathy 06/15/24 NMF: likely due to etoh from which she has now abstained. Will check for other causes of neuropathy and repeat emg. Has fam hx of etoh and some underlying mood do, rec follow-up with pcp consider inc celexa. Consider dc robaxin (only takes at night) Rec take gpn 300mg two three times per day. Update: 08/12/24 EMG/NCS: consistent with peripheral neuropathy, severe degree. Continue gbn 600 mg tid- will update office if ok with GI to increase dosage to 800 mg. Routinely follows up with GI. Going to discuss with pcp robaxin (only takes at night) consider discontinue d/t episodes of dizziness, off balance in am. Pt has been fully educated on their diagnosis, test results, treatment options, follow up plan, andreturn instructions. Total time 44 min [facility]* Attachments The following attachments cannot be sent through Care Everywhere. * Upper GI Endoscopy Discharge Instructions (Serbian) * Colonoscopy Discharge Instructions (Serbian) * Moderate Sedation in Adults Discharge Instructions (Serbian) documented in this [facility] for referral (narrative)* Diagnostic Procedure Only (Routine) - Closed Specialty Diagnoses / Procedures Referred By Contac t Referred To Contact XR IMAGING Diagnoses Pain of right foot Procedures XR FOOT GENERAL 3V AP/LAT/OBL RIGHT RADEX FOOT COMPLETE MINIMUM 3 VIEWS Cr Mace MD [address] [place] [address] [place] [address] Referral ID Status Reason Start Date Expiration Date V isits Requested Visits Authorized [id number] Closed Auto-Generate d Referral 09/08/2023 10/07/2024 1 1 [facility] for referral (narrative)* Diagnostic Procedure Only (Routine) - Pending Review Specialty Diagnoses / Procedures Referred By Contac t Referred To Contact XR IMAGING Diagnoses Foot pain, right Procedures XR FOOT GENERAL 3V AP/LAT/OBL RIGHT RADEX FOOT COMPLETE MINIMUM 3 VIEWS Aurelio Reyes MD [address] [address] [place] [address] Referral ID Status Reason Start Date Expiration Date Visits Requested Visits Authorized [id number] Pending Review Auto-Generat ed Referral 3 12/01/2024 1 1 [facility] for referral (narrative)* Diagnostic Procedure Only (Routine) - Denied Specialty Diagnoses / Procedures Referred By Contac t Referred To Contact XR IMAGING Diagnoses Laceration of dorsum of right foot Procedures XR FOOT GENERAL 3V AP/LAT/OBL RIGHT RADEX FOOT COMPLETE MINIMUM 3 VIEWS Yovana Stewart Jr., EDGER HAND.OFFAL ICER POULTRY [address] [place] [address] [place] [address] Referral ID Status Reason Start Date Expiration Date V isits Requested Visits Authorized [id number] Denied Auto-Generate d Referral 03/03/2024 04/02/2025 1 0 [facility] for referral (narrative)* Diagnostic Procedure Only (Routine) - Denied Specialty Diagnoses / Procedures Referred By Contac t Referred To Contact XR IMAGING Diagnoses Laceration of dorsum of right foot Procedures XR FOOT GENERAL 3V AP/LAT/OBL RIGHT RADEX FOOT COMPLETE MINIMUM 3 VIEWS Yovana Stewart Jr., EDGER HAND.OFFAL ICER POULTRY [address] [place] [address] [place] [address] Referral ID Status Reason Start Date Expiration Date V isits Requested Visits Authorized [id number] Denied Auto-Generate d Referral 03/03/2024 04/02/2025 1 0 [facility] for referral (narrative)* Diagnostic Procedure Only (Routine) - Closed Specialty Diagnoses / Procedures Referred By Contac t Referred To Contact XR IMAGING Diagnoses Pain of right foot Procedures XR FOOT GENERAL 3V AP/LAT/OBL RIGHT RADEX FOOT COMPLETE MINIMUM 3 VIEWS Cr Mace MD [address] [place] [address] [place] [address] Referral ID Status Reason Start Date Expiration Date V isits Requested Visits Authorized [id number] Closed Auto-Generate d Referral 09/08/2023 10/07/2024 1 1 [facility] for visit Narrative* Diagnostic Procedure Only (Routine) - Pending Review Specialty Diagnoses / Procedures Referred By Contac t Referred To Contact XR IMAGING Diagnoses Foot pain, right Procedures XR FOOT GENERAL 3V AP/LAT/OBL RIGHT RADEX FOOT COMPLETE MINIMUM 3 VIEWS Aurelio Reyes MD [address] [address] [place] [address] Referral ID Status Reason Start Date Expiration Date Visits Requested Visits Authorized [id number] Pending Review Auto-Generat ed Referral 12/01/2024 1 1 [facility] for visit Narrative* Diagnostic Procedure Only (Routine) - Denied Specialty Diagnoses / Procedures Referred By Contac t Referred To Contact XR IMAGING Diagnoses Laceration of dorsum of right foot Procedures XR FOOT GENERAL 3V AP/LAT/OBL RIGHT RADEX FOOT COMPLETE MINIMUM 3 VIEWS Yovana Stewart Jr., EDGER HAND.OFFAL ICER POULTRY [address] [place] [address] [place] [address] Referral ID Status Reason Start Date Expiration Date V isits Requested Visits Authorized [id number] Denied Auto-Generate d Referral 03/03/2024 04/02/2025 1 0 [facility] for visit Narrative* Diagnostic Procedure Only (Routine) - Closed Specialty Diagnoses / Procedures Referred By Contac t Referred To Contact XR IMAGING Diagnoses Pain of right foot Procedures XR FOOT GENERAL 3V AP/LAT/OBL RIGHT RADEX FOOT COMPLETE MINIMUM 3 VIEWS Cr Mace MD [address] [place] [address] [place] [address] Referral ID Status Reason Start Date Expiration Date V isits Requested Visits Authorized [id number] Closed Auto-Generate d Referral 09/08/2023 10/07/2024 1 1 [facility] for visit Narrative* Diagnostic Procedure Only (Routine) - Pending Review Specialty Diagnoses / Procedures Referred By Contac t Referred To Contact XR IMAGING Diagnoses Acute pain of right shoulder Procedures XR SHOULDER GENERAL 3V OR MORE AP/TRUE AP/OTHER RIGHT RADEX SHOULDER COMPLETE MINIMUM 2 VIEWS Nicolette Villagomez, EDGER HAND.OFFAL ICER POULTRY [address] [place] [address] Phone: tel: fax: [place] [address] Referral ID Status Reason Start Date Expiration Date Visits Requested Visits Authorized [id number] Pending Review Auto-Generat ed Referral 02/07/2025 03/09/2026 1 1 [facility] Summary Purpose Family History No Family History Records Found Relationship Condition Age at Onset Recorded Date/T crystal mother Dementia Unknown father Diabetes mellitus Unknown Advance Directives No Advanced Directives Records Found Advance Directive Response Recorded Date/ Time Living Will No April 04, 2022 3 :37pm Power of Retail Account Representative No April 04, 2022 3:37pm Documents on File Type Date 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 Advance Directive(s) 10/06/2021 9:19 PM Latest Code Status on File Code Status Date Activated Date Inactivated Comments Full Code 10/08/2021 5:20 PM 11/17/2021 4:35 PM Full Code Order Discussed With: Surrogate Decisi on Maker Advance Directive Response Recorded Date/ Time Living Will No June 17, 2022 8:27pm Power of Retail Account Representative No June 17 8:27pm Advance Directive Response Recorded Date/ Time Living Will No July 13 7:56pm Power of Retail Account Representative No July 13 7:56pm Advance Directive Response Recorded Date/ Time Living Will No July 14 12:40am Power of Retail Account Representative No July 14 12:40am Advance Directive Response Recorded Date/ Time Living Will No August 12, 2022 10:18pm Power of Retail Account Representative No July 10:18pm Advance Directive Response Recorded Date/ Time Living Will No September 24 9:10pm Power of Retail Account Representative No September 24, 2022 9:10pm Latest Code Status on File Code Status Date Activated Date Inactivated Comments Full Code 10/08/2021 5:20 PM 11/17/2021 4:35 PM Advance Directive Response Recorded Date/ Time Living Will No September 24 10:10pm Power of Retail Account Representative No September 24, 2022 10:10pm Latest Code Status on File Code Status Date Activated Date Inactivated Comments Full Code 10/08/2021 5:20 PM 11/17/2021 4:35 PM Question Answer Comments Full Code Order Discussed With: Surrogate Decisi on Maker Advance Directive Response Recorded Date/ Time Living Will No July 07 5:08am Power of Retail Account Representative No July 07, 023 5:08am Latest Code Status on File Code Status Date Activated Date Inactivated Comments Full Code 10/08/2021 5:20 PM 11/17/2021 4:35 PM Question Answer Comments Full Code Order Discussed With: Surrogate Decisi on Maker Advance Directive Response Recorded Date/ Time Living Will No November 26 4 6:11pm Power of Retail Account Representative No November 26 2 024 6:11pm Date Activated Date Inactivated Comments 10/08/2021 5:20 PM 11/17/2021 4:35 PM Question Answer Comments Full Code Order Discussed With: Surrogate Decisi on Maker Date Activated Date Inactivated Comments 10/08/2021 5:20 PM 11/17/2021 4:35 PM Question Answer Comments Full Code Order Discussed With: Surrogate Decisi on Maker Advance Directive Response Recorded Date/ Time Living Will No July 07 3 4:08am Power of Retail Account Representative No July 07 023 4:08am Advance Directive Response Recorded Date/ Time Living Will No October 23 7:55pm Do you have a Healthcare Power of Retail Account Representative? No October 23, 2024 7:55pm Living Will No December 07 2:44am Do you have a Healthcare Power of Retail Account Representative? No December 07, 2024 2:44am Living Will No February 07, 2025 9:41pm Do you have a Healthcare Power of Retail Account Representative? No February 07, 2025 9:41pm Chief Complaint and Reason for Visit Chief Complaint FLUID AROUND LIVER - [facility] E ORDERS CIRRHOSIS/STAT LABS/E ORDERS Reason for Visit Alcoholic hepatitis Wernickes encephalopathy Chief Complaint FLUID AROUND LIVER - [facility]CF E ORDERS CIRRHOSIS/STAT LABS/E ORDERS 6 WK FU E-ORDER Reason for Visit Alcoholic hepatitis [place]ern[place]es encephalopathy Alcoholic hepatitis Cirrhosis of liver [place]ern[place]es encephalopathy Chief Complaint CIRRHOSIS/STAT LABS/ E ORDERS 6 WK FU E-ORDER 8 WK FU E ORDER Reason for Visit Alcoholic hepatitis Cirrhosis of liver [place]es encephalopathy Alcoholic hepatitis Cirrhosis of liver [place] encephalopathy Chief Complaint CIRRHOSIS/STAT LABS/ E ORDERS 6 WK FU E-ORDER 8 WK FU E ORDER NERVE PAIN Reason for Visit Alcoholic hepatitis Cirrhosis of liver [place]es encephalopathy Alcoholic hepatitis Cirrhosis of liver [place] encephalopathy Chief Complaint 6 WK FU E-ORDER 8 WK FU E ORDER NERVE PAIN LLE CELLULITIS Reason for Visit Alcoholic hepatitis Cirrhosis of liver [place]ern[place]es encephalopathy Alcoholic hepatitis Cirrhosis of liver [place]es encephalopathy Cellulitis of left leg Cirrhosis of liver Sepsis Chief Complaint 6 WK FU E-ORDER 8 WK FU E ORDER NERVE PAIN LLE CELLULITIS LLE CELLULITIS LLE CELLULITIS LLE CELLULITIS LLE CELLULITIS Reason for Visit Alcoholic hepatitis Cirrhosis of liver [place]ern[place]es encephalopathy Alcoholic hepatitis Cirrhosis of liver [place] encephalopathy Cellulitis of left leg Cirrhosis of liver Sepsis Chief Complaint 8 WK FU E ORDER NERVE PAIN LLE CELLULITIS LLE CELLULITIS LLE CELLULITIS LLE CELLULITIS LLE CELLULITIS NEUROPATHY PAIN LOWER Reason for Visit Alcoholic hepatitis [place]ernickes encephalopathy Cellulitis of left leg Sepsis Chief Complaint 8 WK FU E ORDER NERVE PAIN LLE CELLULITIS LLE CELLULITIS LLE CELLULITIS LLE CELLULITIS LLE CELLULITIS NEUROPATHY PAIN LOWER GENERAL ILLNESS 2 MO FU LEG PAIN Reason for Visit Alcoholic hepatitis Cirrhosis of liver [place]ern[place]es encephalopathy Cirrhosis of liver Cellulitis of left leg Sepsis Alcoholic hepatitis Cirrhosis of liver [place]ern[place]es encephalopathy Chief Complaint INT LAB Chief Complaint INT LAB 3 MO FU SCREENING Reason for Visit Alcoholic hepatitis Cirrhosis of liver [place]ernickes encephalopathy Chief Complaint SCREENING 3 MO FU neuropathy Reason for Visit Alcoholic hepatitis Cirrhosis of liver [place]ernickes encephalopathy Chief Complaint BLEEDING RIGHT FOOT COMPLAINT Chief Complaint neuropathy BLEEDING Chief Complaint Admit Date ABNL LABS October 23, 2024 5 :36pm ACUTE ON CHRONIC ANEMIA October 23 5:37pm ACUTE ON CHRONIC ANEMIA October 24 1:44pm ACUTE ON CHRONIC ANEMIA October 25 12:42pm abd pain December 07, 2024 1 :36am HEPATIC December 17, 2024 7 :12am GALLBLADDER SLUDGE December 24, 2024 8 :50am ARM PAIN February 07, 2025 9:3 2pm Reason for Visit Admit Date Abdominal pain October 23, 2024 5 :37pm Hx of cirrhosis October 23, 2024 5 :37pm Pancytopenia October 23, 2024 5 :37pm Acute on chronic anemia October 23 5:37pm Reason for Referral Specialty Diagnoses / Procedures Referred By Stacie pena Referred To Contact XR IMAGING Diagnoses Rib contusion, left, initial encounter Procedures XR RIBS/CHEST 3V AP RIB/OBLS/CXR LEFT RADEX RIBS UNI W/POSTEROANT CH MINIMUM 3 VIEWS Ash Duke PA-C [address] [place] [address] Xr Imaging Referral ID Status Reason Start Date Expiration Date V isits Requested Visits Authorized [id number] Closed Auto-Generate d Referral 12/31/2022 11/17/2023 1 1 Specialty Diagnoses / Procedures Referred By Contac t Referred To Contact PHYSICAL THERAPY Diagnoses Leg weakness, bilateral Peripheral nerve disease Procedures CONSULT TO PHYSICAL THERAPY PHYSICAL THERAPY EVALUATION HIGH COMPLEX 45 MINS Aure Carlton, EDGER HAND.OFFAL ICER POULTRY [address] [facility] [address] [place] [address] Bev Rodriguez, PT, DPT Referral ID Status Reason Start Date Expiration Date Visits Requested Visits Authorized [id number] Pending Review Auto-Generat ed Referral 08/16/2023 08/15/2024 1 1 Specialty Diagnoses / Procedures Referred By Contac t Referred To Contact [facility] Diagnoses Alcoholic peripheral neuropathy (HCC) Pain in soft tissues of limb Procedures [facility]ULT TO [facility] ([facility]IN) Aundrea Shultz, VERNA.OFFAL ICER POULTRY [address] [place] [address] Referral ID Status Reason Start Date Expiration Date Visits Requested Visits Authorized [id number] Ref Not Required PCP Requested Referral 09/25/2023 09/24/2024 1 1 Specialty Diagnoses / Procedures Referred By Contac t Referred To Contact Diagnoses Alcoholic peripheral neuropathy (HCC) Pain in soft tissues of limb Procedures CONSULT FOR ACUPUNCTURE OFFICE/OUTPATIENT [facility] MDM 60-74 MINUTES Aundrea Shultz, VERNA.OFFAL ICER POULTRY [address] [place] [address] Referral ID Status Reason Start Date Expiration Date Visits Requested Visits Authorized [id number] Pending Review PCP Requested Referral 09/25/2023 09/24/2024 1 1 Specialty Diagnoses / Procedures Referred By Contac t Referred To Contact [facility] Diagnoses Polyneuropathy, unspecified Procedures CONSULT TO CAPACITY PLANNING MANAGER OCCUPATIONAL THERAPY EVAL HIGH COMPLEX 60 MINS Aure Carlton, EDGER HAND.OFFAL ICER POULTRY [address] [facility] [address] [place] [address] [facility] [place] [address] Referral ID Status Reason Start Date Expiration Date Visits Requested Visits Authorized [id number] Pending Review Auto-Generat ed Referral 03/30/2024 03/30/2025 1 1 Specialty Diagnoses / Procedures Referred By Contac t Referred To Contact Nutrition Diagnoses Alcoholic cirrhosis of liver without ascites (HCC) Procedures CONSULT TO NUTRITION THERAPY MEDICAL NUTRITION ASSMT&IVNTJ INDIV EACH 15 SC Aure Carlton, EDGER HAND.OFFAL ICER POULTRY [address] [place] [address] Referral ID Status Reason Start Date Expiration Date Visits Requested Visits Authorized [id number] Pending Review PCP Requested Referral 04/21/2024 04/21/2025 1 4 Specialty Diagnoses / Procedures Referred By Contac t Referred To Contact XR IMAGING Diagnoses Contusion of right foot, initial encounter Procedures XR FOOT GENERAL 3V AP/LAT/OBL RIGHT RADEX FOOT COMPLETE MINIMUM 3 VIEWS Gretchen Andersen, DO [address] [facility] [address] [place] [address] [place] [address] Referral ID Status Reason Start Date Expiration Date Visits Re quested Visits Authorized [id number] Closed 05/21/2023 11/17/2023 1 1 Specialty Diagnoses / Procedures Referred By Contac t Referred To Contact XR IMAGING Diagnoses Rib contusion, left, initial encounter Procedures XR RIBS/CHEST 3V AP RIB/OBLS/CXR LEFT RADEX RIBS UNI W/POSTEROANT CH MINIMUM 3 VIEWS Ash Duke PA-C [address] [place] [address] [place] [address] Specialty Diagnoses / Procedures Referred By Contac t Referred To Contact [facility] Diagnoses Neuropathy Acute midline low back pain with left-sided sciatica Procedures CONSULT TO PHYSICAL THERAPY PHYSICAL THERAPY EVALUATION HIGH COMPLEX 45 MINS Aure Carlton, EDGER HAND.OFFAL ICER POULTRY [address] [place] [address] [facility] [address] [place] [address] Referral ID Status Reason Start Date Expiration Date Visits Requested Visits Authorized [id number] Pending Review Auto-Generat ed Referral 11/23/2024 11/23/2025 1 1 Additional Source Comments INFORMATION SOURCE (unrecogn ized section and content) DATE CREATED AUTHOR 10/06/2021 [facility] DATE CREATED AUTHOR AUTHOR'S ORGANIZ ATION 12/27/2021 [facility] DATE CREATED AUTHOR AUTHOR'S ORGANIZ ATION 04/01/2022 [facility] [place] DATE CREATED AUTHOR AUTHOR'S ORGANIZ ATION 06/18/2023 [facility] DATE CREATED AUTHOR AUTHOR'S ORGANIZ ATION 09/12/2023 [facility] DATE CREATED AUTHOR AUTHOR'S ORGANIZ ATION 04/10/2024 [facility] DATE CREATED AUTHOR AUTHOR'S ORGANIZ ATION 05/03/2024 [facility] DATE CREATED AUTHOR AUTHOR'S ORGANIZ ATION 12/06/2024 [facility] DATE CREATED AUTHOR AUTHOR'S ORGANIZ ATION 03/10/2025 [facility] DATE CREATED AUTHOR AUTHOR'S ORGANIZ ATION 05/11/2025 [facility] Goals (unrecognized section and content) Goals may be documented in a n alternate sectionGoals may be documented in an alternate sectionGoals may be documented in an alternate sectionGoals may be documented in an alternate sectionGoals may be documented in an alternate sectionGoals may be documented in an alternate sectionGoals may be documented in an alternate sectionGoals may be documented in an alternate sectionGoals may be documented in an alternate section Source Comments (unrecognize d section and content) In the event this informatio n is protected by the Federal Confidentiality of Alcohol and Drug Abuse Patient Records regulations: The Federal rules restrict any use of the information to criminally investigate or prosecute any alcohol or drug abuse patient.[facility] the event this information is protected by the Federal Confidentiality of Alcohol and Drug Abuse Patient Records regulations: The Federal rules restrict any use of the information to criminally investigate or prosecute any alcohol or drug abuse patient.[facility] the event this information is protected by the Federal Confidentiality of Alcohol and Drug Abuse Patient Records regulations: The Federal rules restrict any use of the information to criminally investigate or prosecute any alcohol or drug abuse patient.[facility] the event this information is protected by the Federal Confidentiality of Alcohol and Drug Abuse Patient Records regulations: The Federal rules restrict any use of the information to criminally investigate or prosecute any alcohol or drug abuse patient.[facility] the event this information is protected by the Federal Confidentiality of Alcohol and Drug Abuse Patient Records regulations: The Federal rules restrict any use of the information to criminally investigate or prosecute any alcohol or drug abuse patient.[facility] the event this information is protected by the Federal Confidentiality of Alcohol and Drug Abuse Patient Records regulations: The Federal rules restrict any use of the information to criminally investigate or prosecute any alcohol or drug abuse patient.[facility] the event this information is protected by the Federal Confidentiality of Alcohol and Drug Abuse Patient Records regulations: The Federal rules restrict any use of the information to criminally investigate or prosecute any alcohol or drug abuse patient.[facility] the event this information is protected by the Federal Confidentiality of Alcohol and Drug Abuse Patient Records regulations: The Federal rules restrict any use of the information to criminally investigate or prosecute any alcohol or drug abuse patient.[facility] the event this information is protected by the Federal Confidentiality of Alcohol and Drug Abuse Patient Records regulations: The Federal rules restrict any use of the information to criminally investigate or prosecute any alcohol or drug abuse patient.[facility] the event this information is protected by the Federal Confidentiality of Alcohol and Drug Abuse Patient Records regulations: The Federal rules restrict any use of the information to criminally investigate or prosecute any alcohol or drug abuse patient.[facility] the event this information is protected by the Federal Confidentiality of Alcohol and Drug Abuse Patient Records regulations: The Federal rules restrict any use of the information to criminally investigate or prosecute any alcohol or drug abuse patient.[facility] WestIn the event this information is protected by the Federal Confidentiality of Alcohol and Drug Abuse Patient Records regulations: The Federal rules restrict any use of the information to criminally investigate or prosecute any alcohol or drug abuse patient.[facility] WestIn the event this information is protected by the Federal Confidentiality of Alcohol and Drug Abuse Patient Records regulations: The Federal rules restrict any use of the information to criminally investigate or prosecute any alcohol or drug abuse patient.[facility] WestIn the event this information is protected by the Federal Confidentiality of Alcohol and Drug Abuse Patient Records regulations: The Federal rules restrict any use of the information to criminally investigate or prosecute any alcohol or drug abuse patient.[facility] WestIn the event this information is protected by the Federal Confidentiality of Alcohol and Drug Abuse Patient Records regulations: The Federal rules restrict any use of the information to criminally investigate or prosecute any alcohol or drug abuse patient.[facility] WestIn the event this information is protected by the Federal Confidentiality of Alcohol and Drug Abuse Patient Records regulations: The Federal rules restrict any use of the information to criminally investigate or prosecute any alcohol or drug abuse patient.[facility] WestIn the event this information is protected by the Federal Confidentiality of Alcohol and Drug Abuse Patient Records regulations: The Federal rules restrict any use of the information to criminally investigate or prosecute any alcohol or drug abuse patient.[facility] WestIn the event this information is protected by the Federal Confidentiality of Alcohol and Drug Abuse Patient Records regulations: The Federal rules restrict any use of the information to criminally investigate or prosecute any alcohol or drug abuse patient.[facility] WestIn the event this information is protected by the Federal Confidentiality of Alcohol and Drug Abuse Patient Records regulations: The Federal rules restrict any use of the information to criminally investigate or prosecute any alcohol or drug abuse patient.[facility] WestIn the event this information is protected by the Federal Confidentiality of Alcohol and Drug Abuse Patient Records regulations: The Federal rules restrict any use of the information to criminally investigate or prosecute any alcohol or drug abuse patient.[facility] WestIn the event this information is protected by the Federal Confidentiality of Alcohol and Drug Abuse Patient Records regulations: The Federal rules restrict any use of the information to criminally investigate or prosecute any alcohol or drug abuse patient.[facility] [place] the event this information is protected by the Federal Confidentiality of Alcohol and Drug Abuse Patient Records regulations: The Federal rules restrict any use of the information to criminally investigate or prosecute any alcohol or drug abuse patient.[facility] WestIn the event this information is protected by the Federal Confidentiality of Alcohol and Drug Abuse Patient Records regulations: The Federal rules restrict any use of the information to criminally investigate or prosecute any alcohol or drug abuse patient.[facility] WestIn the event this information is protected by the Federal Confidentiality of Alcohol and Drug Abuse Patient Records regulations: The Federal rules restrict any use of the information to criminally investigate or prosecute any alcohol or drug abuse patient.[facility] the event this information is protected by the Federal Confidentiality of Alcohol and Drug Abuse Patient Records regulations: The Federal rules restrict any use of the information to criminally investigate or prosecute any alcohol or drug abuse patient.[facility] WestIn the event this information is protected by the Federal Confidentiality of Alcohol and Drug Abuse Patient Records regulations: The Federal rules restrict any use of the information to criminally investigate or prosecute any alcohol or drug abuse patient.[facility] WestIn the event this information is protected by the Federal Confidentiality of Alcohol and Drug Abuse Patient Records regulations: The Federal rules restrict any use of the information to criminally investigate or prosecute any alcohol or drug abuse patient.[facility] WestIn the event this information is protected by the Federal Confidentiality of Alcohol and Drug Abuse Patient Records regulations: The Federal rules restrict any use of the information to criminally investigate or prosecute any alcohol or drug abuse patient.[facility]In the event this information is protected by the Federal Confidentiality of Alcohol and Drug Abuse Patient Records regulations: The Federal rules restrict any use of the information to criminally investigate or prosecute any alcohol or drug abuse patient.[facility] WestIn the event this information is protected by the Federal Confidentiality of Alcohol and Drug Abuse Patient Records regulations: The Federal rules restrict any use of the information to criminally investigate or prosecute any alcohol or drug abuse patient.[facility] WestIn the event this information is protected by the Federal Confidentiality of Alcohol and Drug Abuse Patient Records regulations: The Federal rules restrict any use of the information to criminally investigate or prosecute any alcohol or drug abuse patient.[facility]In the event this information is protected by the Federal Confidentiality of Alcohol and Drug Abuse Patient Records regulations: The Federal rules restrict any use of the information to criminally investigate or prosecute any alcohol or drug abuse patient.[facility]In the event this information is protected by the Federal Confidentiality of Alcohol and Drug Abuse Patient Records regulations: The Federal rules restrict any use of the information to criminally investigate or prosecute any alcohol or drug abuse patient.[facility]In the event this information is protected by the Federal Confidentiality of Alcohol and Drug Abuse Patient Records regulations: The Federal rules restrict any use of the information to criminally investigate or prosecute any alcohol or drug abuse patient.[facility] WestIn the event this information is protected by the Federal Confidentiality of Alcohol and Drug Abuse Patient Records regulations: The Federal rules restrict any use of the information to criminally investigate or prosecute any alcohol or drug abuse patient.[facility]In the event this information is protected by the Federal Confidentiality of Alcohol and Drug Abuse Patient Records regulations: The Federal rules restrict any use of the information to criminally investigate or prosecute any alcohol or drug abuse patient.[facility]In the event this information is protected by the Federal Confidentiality of Alcohol and Drug Abuse Patient Records regulations: The Federal rules restrict any use of the information to criminally investigate or prosecute any alcohol or drug abuse patient.[facility] WestIn the event this information is protected by the Federal Confidentiality of Alcohol and Drug Abuse Patient Records regulations: The Federal rules restrict any use of the information to criminally investigate or prosecute any alcohol or drug abuse patient.[facility]In the event this information is protected by the Federal Confidentiality of Alcohol and Drug Abuse Patient Records regulations: The Federal rules restrict any use of the information to criminally investigate or prosecute any alcohol or drug abuse patient.[facility]In the event this information is protected by the Federal Confidentiality of Alcohol and Drug Abuse Patient Records regulations: The Federal rules restrict any use of the information to criminally investigate or prosecute any alcohol or drug abuse patient.[facility] WestIn the event this information is protected by the Federal Confidentiality of Alcohol and Drug Abuse Patient Records regulations: The Federal rules restrict any use of the information to criminally investigate or prosecute any alcohol or drug abuse patient.[facility] WestIn the event this information is protected by the Federal Confidentiality of Alcohol and Drug Abuse Patient Records regulations: The Federal rules restrict any use of the information to criminally investigate or prosecute any alcohol or drug abuse patient.[facility]In the event this information is protected by the Federal Confidentiality of Alcohol and Drug Abuse Patient Records regulations: The Federal rules restrict any use of the information to criminally investigate or prosecute any alcohol or drug abuse patient.[facility]In the event this information is protected by the Federal Confidentiality of Alcohol and Drug Abuse Patient Records regulations: The Federal rules restrict any use of the information to criminally investigate or prosecute any alcohol or drug abuse patient.[facility]In the event this information is protected by the Federal Confidentiality of Alcohol and Drug Abuse Patient Records regulations: The Federal rules restrict any use of the information to criminally investigate or prosecute any alcohol or drug abuse patient.[facility] WestIn the event this information is protected by the Federal Confidentiality of Alcohol and Drug Abuse Patient Records regulations: The Federal rules restrict any use of the information to criminally investigate or prosecute any alcohol or drug abuse patient.[facility]In the event this information is protected by the Federal Confidentiality of Alcohol and Drug Abuse Patient Records regulations: The Federal rules restrict any use of the information to criminally investigate or prosecute any alcohol or drug abuse patient.[facility]In the event this information is protected by the Federal Confidentiality of Alcohol and Drug Abuse Patient Records regulations: The Federal rules restrict any use of the information to criminally investigate or prosecute any alcohol or drug abuse patient.[facility] WestIn the event this information is protected by the Federal Confidentiality of Alcohol and Drug Abuse Patient Records regulations: The Federal rules restrict any use of the information to criminally investigate or prosecute any alcohol or drug abuse patient.[facility]In the event this information is protected by the Federal Confidentiality of Alcohol and Drug Abuse Patient Records regulations: The Federal rules restrict any use of the information to criminally investigate or prosecute any alcohol or drug abuse patient.[facility] WestIn the event this information is protected by the Federal Confidentiality of Alcohol and Drug Abuse Patient Records regulations: The Federal rules restrict any use of the information to criminally investigate or prosecute any alcohol or drug abuse patient.[facility]In the event this information is protected by the Federal Confidentiality of Alcohol and Drug Abuse Patient Records regulations: The Federal rules restrict any use of the information to criminally investigate or prosecute any alcohol or drug abuse patient.[facility]In the event this information is protected by the Federal Confidentiality of Alcohol and Drug Abuse Patient Records regulations: The Federal rules restrict any use of the information to criminally investigate or prosecute any alcohol or drug abuse patient.[facility]In the event this information is protected by the Federal Confidentiality of Alcohol and Drug Abuse Patient Records regulations: The Federal rules restrict any use of the information to criminally investigate or prosecute any alcohol or drug abuse patient.[facility]In the event this information is protected by the Federal Confidentiality of Alcohol and Drug Abuse Patient Records regulations: The Federal rules restrict any use of the information to criminally investigate or prosecute any alcohol or drug abuse patient.[facility]In the event this information is protected by the Federal Confidentiality of Alcohol and Drug Abuse Patient Records regulations: The Federal rules restrict any use of the information to criminally investigate or prosecute any alcohol or drug abuse patient.[facility]In the event this information is protected by the Federal Confidentiality of Alcohol and Drug Abuse Patient Records regulations: The Federal rules restrict any use of the information to criminally investigate or prosecute any alcohol or drug abuse patient.[facility]In the event this information is protected by the Federal Confidentiality of Alcohol and Drug Abuse Patient Records regulations: The Federal rules restrict any use of the information to criminally investigate or prosecute any alcohol or drug abuse patient.[facility]In the event this information is protected by the Federal Confidentiality of Alcohol and Drug Abuse Patient Records regulations: The Federal rules restrict any use of the information to criminally investigate or prosecute any alcohol or drug abuse patient.[facility]In the event this information is protected by the Federal Confidentiality of Alcohol and Drug Abuse Patient Records regulations: The Federal rules restrict any use of the information to criminally investigate or prosecute any alcohol or drug abuse patient.[facility]In the event this information is protected by the Federal Confidentiality of Alcohol and Drug Abuse Patient Records regulations: The Federal rules restrict any use of the information to criminally investigate or prosecute any alcohol or drug abuse patient.[facility]In the event this information is protected by the Federal Confidentiality of Alcohol and Drug Abuse Patient Records regulations: The Federal rules restrict any use of the information to criminally investigate or prosecute any alcohol or drug abuse patient.[facility]In the event this information is protected by the Federal Confidentiality of Alcohol and Drug Abuse Patient Records regulations: The Federal rules restrict any use of the information to criminally investigate or prosecute any alcohol or drug abuse patient.[facility]In the event this information is protected by the Federal Confidentiality of Alcohol and Drug Abuse Patient Records regulations: The Federal rules restrict any use of the information to criminally investigate or prosecute any alcohol or drug abuse patient.[facility]In the event this information is protected by the Federal Confidentiality of Alcohol and Drug Abuse Patient Records regulations: The Federal rules restrict any use of the information to criminally investigate or prosecute any alcohol or drug abuse patient.[facility]In the event this information is protected by the Federal Confidentiality of Alcohol and Drug Abuse Patient Records regulations: The Federal rules restrict any use of the information to criminally investigate or prosecute any alcohol or drug abuse patient.[facility]In the event this information is protected by the Federal Confidentiality of Alcohol and Drug Abuse Patient Records regulations: The Federal rules restrict any use of the information to criminally investigate or prosecute any alcohol or drug abuse patient.[facility]In the event this information is protected by the Federal Confidentiality of Alcohol and Drug Abuse Patient Records regulations: The Federal rules restrict any use of the information to criminally investigate or prosecute any alcohol or drug abuse patient.[facility]In the event this information is protected by the Federal Confidentiality of Alcohol and Drug Abuse Patient Records regulations: The Federal rules restrict any use of the information to criminally investigate or prosecute any alcohol or drug abuse patient.[facility]In the event this information is protected by the Federal Confidentiality of Alcohol and Drug Abuse Patient Records regulations: The Federal rules restrict any use of the information to criminally investigate or prosecute any alcohol or drug abuse patient.[facility]In the event this information is protected by the Federal Confidentiality of Alcohol and Drug Abuse Patient Records regulations: The Federal rules restrict any use of the information to criminally investigate or prosecute any alcohol or drug abuse patient.[facility] [place] the event this information is protected by the Federal Confidentiality of Alcohol and Drug Abuse Patient Records regulations: The Federal rules restrict any use of the information to criminally investigate or prosecute any alcohol or drug abuse patient.[facility]In the event this information is protected by the Federal Confidentiality of Alcohol and Drug Abuse Patient Records regulations: The Federal rules restrict any use of the information to criminally investigate or prosecute any alcohol or drug abuse patient.[facility]In the event this information is protected by the Federal Confidentiality of Alcohol and Drug Abuse Patient Records regulations: The Federal rules restrict any use of the information to criminally investigate or prosecute any alcohol or drug abuse patient.[facility]In the event this information is protected by the Federal Confidentiality of Alcohol and Drug Abuse Patient Records regulations: The Federal rules restrict any use of the information to criminally investigate or prosecute any alcohol or drug abuse patient.[facility]In the event this information is protected by the Federal Confidentiality of Alcohol and Drug Abuse Patient Records regulations: The Federal rules restrict any use of the information to criminally investigate or prosecute any alcohol or drug abuse patient.[facility]In the event this information is protected by the Federal Confidentiality of Alcohol and Drug Abuse Patient Records regulations: The Federal rules restrict any use of the information to criminally investigate or prosecute any alcohol or drug abuse patient.[facility]In the event this information is protected by the Federal Confidentiality of Alcohol and Drug Abuse Patient Records regulations: The Federal rules restrict any use of the information to criminally investigate or prosecute any alcohol or drug abuse patient.[facility]In the event this information is protected by the Federal Confidentiality of Alcohol and Drug Abuse Patient Records regulations: The Federal rules restrict any use of the information to criminally investigate or prosecute any alcohol or drug abuse patient.[facility]In the event this information is protected by the Federal Confidentiality of Alcohol and Drug Abuse Patient Records regulations: The Federal rules restrict any use of the information to criminally investigate or prosecute any alcohol or drug abuse patient.[facility]In the event this information is protected by the Federal Confidentiality of Alcohol and Drug Abuse Patient Records regulations: The Federal rules restrict any use of the information to criminally investigate or prosecute any alcohol or drug abuse patient.[facility]In the event this information is protected by the Federal Confidentiality of Alcohol and Drug Abuse Patient Records regulations: The Federal rules restrict any use of the information to criminally investigate or prosecute any alcohol or drug abuse patient.[facility]In the event this information is protected by the Federal Confidentiality of Alcohol and Drug Abuse Patient Records regulations: The Federal rules restrict any use of the information to criminally investigate or prosecute any alcohol or drug abuse patient.[facility]In the event this information is protected by the Federal Confidentiality of Alcohol and Drug Abuse Patient Records regulations: The Federal rules restrict any use of the information to criminally investigate or prosecute any alcohol or drug abuse patient.[facility]In the event this information is protected by the Federal Confidentiality of Alcohol and Drug Abuse Patient Records regulations: The Federal rules restrict any use of the information to criminally investigate or prosecute any alcohol or drug abuse patient.[facility]In the event this information is protected by the Federal Confidentiality of Alcohol and Drug Abuse Patient Records regulations: The Federal rules restrict any use of the information to criminally investigate or prosecute any alcohol or drug abuse patient.[facility] Reason for Visit (unrecogniz ed section and content) Reason Comments Referral - Liver Txp scheduling-LM Reason Comments Referral - Liver Txp f/u on scheduling Reason Comments Referral - [facility] unable to reach Reason Comments Follow Up Reason Comments Referral - Liver [facility]xp referral closed Reason Comments New Patient Evaluation Evaluate for disa bility Leg Pain bilateral Pain (foot) Bilateral Arm Pain Bilateral Hand Pain Bilateral Specialty Diagnoses / Procedures Referred By Stacie t Referred To Contact Pain Management / PAIN MANAGEMENT Diagnoses New patient - evaluation for disablity Procedures NEW PATIENT Self Tere Painter MD [address] [place] [address] Referral ID Status Reason Start Date Expiration Date V isits Requested Visits Authorized [id number] Authorized 11/18/2022 11/17/2023 20 20 Reason Comments rib pain Left side rib pain f rom fall this morning, burning with urination possible blood in urine-----4 days Specialty Diagnoses / Procedures Referred By Stacie pena Referred To Contact Emergency Medicine / URGENT CARE CLINIC Diagnoses Rib contusion, left, initial encounter LT RIB PAIN Procedures OFFICE/OUTPATIENT ESTABLISHED MOD MDM 30-39 MIN URGENT CARE Self Ash Duke PA-C [address] [place] [address] Referral ID Status Reason Start Date Expiration Date Visits Re quested Visits Authorized [id number] Closed 12/31/2022 11/17/2023 1 1 Reason Comments rib pain Left rib pain -- con gestion in throat Reason Comments UTI CLOUDY URINE, back p ain x 6 days Reason Comments Follow Up Neuropathy Specialty Diagnoses / Procedures Referred By Stacie pena Referred To Contact Pain Management / PAIN MANAGEMENT Diagnoses Follow-up exam 2 month follow Procedures OFFICE/OUTPATIENT ESTABLISHED MOD MDM 30-39 MIN EST PATIENT Tere Painter MD [address] [address] Tere Painter MD [address] [place] [address] Referral ID Status Reason Start Date Expiration Date Visits Re quested Visits Authorized [id number] Closed 11/18/2022 11/17/2023 1 1 Reason Comments [...] feel dizzy Reason Comments Upper Respiratory Infection Reason Comments Refill Request Reason Onset Date Comments Refill Request 01/07/2024 Reason Comments Insurance Authorization Chiro [id number] Reason Onset Date Comments Refill Request 01/30/2024 Reason Comments Laceration Hx of neuropathy Pat ient was goine down the stairs slid down stairs and a bowl went on top of foot and cut top of foot Today 1030 at home Tdap 05/2023 Head Injury Patient hit her head on where they keep there shoes when sitting up to look at foot Reason Comments Patient Update Pain in her foot sin ce getting stitches yesterday Reason Comments Wound Check Patient was in yeste rday 03/03/2024 patient is now having drainage pinkish color patient states diluted blood. Per notes 5 sutures were put into place Pain Medicaiton Patient states she c an't take APAP or Ibuprofen due to Liver issues patient is requesting pain medication at this time. Reason Comments No Show Reason Comments Wound Check Reason Comments Suture Removal Patient need sutures removed that were placed two weeks ago. Patient complains of pain at the site that travels up the right leg.There is redness and swelling present at the site on top of right foot.HX neuropathy. Urinary Problem 03/17/24 Patient begtia n experiencing urinary urgency,frequency and burning while urinating.HX of urinary Tract infections. Reason Comments Patient Question Reason Comments F/U 6 months She wants to know if her gabapentin can be filled here or if she needs to let pain management [place] it. She also states she has a lot of ringing in her ears. She is not sure if that is what is causing her dizziness. Specialty Diagnoses / Procedures Referred By Contac t Referred To Contact Family Medicine / FAMILY MEDICINE Diagnoses 6 month follow up Procedures OFFICE/OUTPATIENT ESTABLISHED MOD MDM 30 MIN EST COMPLEX Aure Carlton, EDGER HAND.OFFAL ICER POULTRY [address] [facility] [address] [place] [address] Aure Carlton, EDGER HAND.OFFAL ICER POULTRY [address] [facility] [address] [place] [address] Referral ID Status Reason Start Date Expiration Date Visits Re quested Visits Authorized [id number] Closed 03/30/2024 11/17/2024 2 1 Reason Comments Returning Patient's Call Reason Comments Pain (foot) Low Back Pain Specialty Diagnoses / Procedures Referred By Contac t Referred To Contact PAIN MANAGEMENT Diagnoses Pain in unspecified limb New patient for acu self referred Procedures OFFICE/OUTPATIENT NEW SF MDM 15 MINUTES OFFICE/OUTPATIENT NEW LOW MDM 30 MINUTES OFFICE/OUTPATIENT NEW MODERATE MDM 45 MINUTES OFFICE/OUTPATIENT NEW HIGH MDM 60 MINUTES New patient for acu ref'd self Aundrea Shultz, EDGER HAND.OFFAL ICER POULTRY [address] [facility] [place] [address] Spine [facility] [place] [address] [facility] [address] [place] [address] Referral ID Status Reason Start Date Expiration Date V isits Requested Visits Authorized [id number] Closed OON/Self Pay Override 03/18/2024 11/17/2024 1 1 Specialty Diagnoses / Procedures Referred By Contac t Referred To Contact Diagnoses Esophageal varices without bleeding (HCC) Unspecified cirrhosis of liver (HCC) Procedures PA COLONOSCOPY FLX DX W/COLLJ SPEC WHEN PFRMD PA ESOPHAGOGASTRODUODENOSCOPY TRANSORAL DIAGNOSTIC COLONOSCOPY ESOPHAGOGASTRODUODENOSCOPY DIAGNOSTIC Radhika Scott MD [address] [facility] [address] [address] [place] [address] Sb Endoscopy [address] [place] [address] Referral ID Status Reason Start Date Expiration Date Visits Re quested Visits Authorized [id number] 1 1 Reason Comments Cough Sore throat, head pr essure, ear pain, dizzyStarted yesterdaySon has covid Reason Comments Urinary Problem Pain with urinationD iscolored uirne Started 2-3 days ago Cough Dx with covid. Was s een here on Saturday Pain, Back Started 2-3 days ago Specialty Diagnoses / Procedures Referred By Contac t Referred To Contact XR IMAGING Diagnoses Contusion of right foot, initial encounter Procedures XR FOOT GENERAL 3V AP/LAT/OBL RIGHT RADEX FOOT COMPLETE MINIMUM 3 VIEWS Gretchen Andersen, DO [address] [place] [address] [place] [address] Referral ID Status Reason Start Date Expiration Date Visits Re quested Visits Authorized [id number] Closed 05/21/2023 11/17/2023 1 1 Specialty Diagnoses / Procedures Referred By Contac t Referred To Contact XR IMAGING Diagnoses Rib contusion, left, initial encounter Procedures XR RIBS/CHEST 3V AP RIB/OBLS/CXR LEFT RADEX RIBS UNI W/POSTEROANT CH MINIMUM 3 VIEWS Ash Duke PA-C [address] [place] [address] [place] [address] Referral ID Status Reason Start Date Expiration Date V isits Requested Visits Authorized [id number] Closed Auto-Generate d Referral 12/31/2022 11/17/2023 1 1 Reason Comments Results Dominic has a teleheal th visit to discuss recent lab work.Panchito Russ 2023 2:12 PM Specialty Diagnoses / Procedures Referred By Contac t Referred To Contact FAMILY MEDICINE Diagnoses Follow-up exam Procedures OFFICE/OUTPATIENT ESTABLISHED MOD MDM 30 MIN est pt Aure Carlton L, EDGER HAND.OFFAL ICER POULTRY [address] [place] [place] [address] [facility] [place] [address] [facility] [place] [place] [address] Referral ID Status Reason Start Date Expiration Date Visits Requested Visits Authorized [id number] New Request OON/Self Pay Override 4 01/20/2026 1 1 Reason Onset Date Comments Refill Request 10/13/2024 Reason Comments right upper arm pain Right upper arm talon n that radiates into back x 1 weekNo known injury Also states she has a cough x 1 month Reason Comments Medication Problem Patient is requestin g a prescription for a muscle relaxer since she only has one or two pills left of current muscle relaxer. Reason Comments right arm pain Right arm pain x 1 m onth No injury however patient has hx of neuropathy Reason Comments Cough Chest congestion and cough x 3 weeks Ongoing right arm pain Reason Comments Follow Up Dominic is here for a follow up today, went to [facility] about a month ago with bronchitis, is still having considerable cough and colorful phlegm, would like to have something done for ongoing symptoms.Would also like to get back on tizanidine for her muscle spams/pain, states methocarbamol does not help.Also brought the rest of her medications for review.Caitlin Russ 2024 8:40 AM Reason Comments Results Patient Question Reason Comments Patient Update Orders Reason Comments Cough, Sore Throat Eight to nine weeks. Bilateral Ear Pain One week Reason Comments Cough Congestion both over 2 months Care Teams (unrecognized sec tion and content) Team Status: Active Member Role Status Dates Out of Town Doctor Family Provider Active ROBERT PEARSON Primary Care Provider Active Team Status: Inactive Member Role Status Dates LILI JONES Primary Care Provide r, Attending Provider, Referring Provider Active Dr. Leodan Sarabia , DO Other Provider Active Team Status: Inactive Member Role Status Dates Dr. Leodan Sarabia , DO Attending Provider Active LILI JONES Primary Care Provider, Referring Provider Active Team Status: Inactive Member Role Status Dates Dr. Lisa Jimenez , DO Attending Provider, Referrin g Provider Active LILI JONES Primary Care Provider Active Team Status: Inactive Member Role Status Dates LILI JONES Primary Care Provider Active Dr. Lisa Jimenez , DO Attending Provider Active Sewing Demonstrator Relationship Specialty Start Date End Date Robert Pearson MD [address] [facility] [address] [place] [address] PCP - General Internal Medicine 05/08/23 Jerod Ba Jr., DO [address] [facility] [address] [place] [address] Obstetrics 05/08/23 Sewing Demonstrator Relationship Specialty Start Date End Date Robert Pearson MD [address] [facility] [address] [place], [place] [address] PCP - General Internal Medicine 05/08/23 Jerod Ba Jr., 100 [facility] [address] [place], [place] [address] Obstetrics 05/08/23 Team Status: Active Member Role Status Dates Out of Town Doctor Family Provider Active No Primary Care Physician Primary Care Provider Active Team Status: Inactive Member Role Status Dates Dr. Leodan Sarabia , DO Attending Provider Active No Primary Care Physician Primary Care Provider, Refer ring Provider Active Team Status: Active Member Role Status Dates No Primary Care Physician Primary Care Provider Active Dr. Jerod Ba , DO Attending Provider, Referrin g Provider Active Team Status: Inactive Member Role Status Dates No Primary Care Physician Primary Care Provider Active Dr. Darrian Singh , DO Emergency Provider Active Team Status: Inactive Member Role Status Dates No Primary Care Physician Primary Care Provider Active Dr. Jerod Ba , DO Attending Provider, Referrin g Provider Active Sewing Demonstrator Relationship Specialty Start Date End Date Aure Carlton APRN.OFFAL ICER POULTRY [address] [facility] [address] [place] [phone] PCP - General Family Medicine 08/14/23 Jerod Ba Jr., DO [address] [facility] 201 [place] [address] Obstetrics 05/08/23 Lisa Jimenez 546 [facility] 100 [place], [place] [address] RADIOTELEGRAPHIST 02/18/23 Leodan Sarabia DO [address] [facility] [address] [place], [place] [id number] Gastroenterology 06/12/22 Priyanka Lyons [address] [facility] 205 [place], [place] [address] Urology 08/15/23 Justice Painter DPM [address] [place] [address] Podiatry 08/15/23 Sewing Demonstrator Relationship Specialty Start Date End Date Aure Carlton, EDGER HAND.OFFAL ICER POULTRY [address] [facility] 3 [place] [address] PCP - General Family Medicine 08/14/23 Jerod Ba Jr., DO [address] [facility] 201 [place] [address] Obstetrics 05/08/23 Lisa Jimenez 546 [facility] 100 [place] [address] RADIOTELEGRAPHIST 02/18/23 Leodan Sarabia DO [address] [facility] [address] [place], [place] [address] Gastroenterology 06/12/22 Priyanka Lyons [address] [place] [place], [place] [address] Urology 08/15/23 Justice Painetr DPM [address] [place] [address] Podiatry 08/15/23 Sewing Demonstrator Relationship Specialty Start Date End Date Aure Carlton APRN.OFFAL ICER POULTRY [address] [place] [address] [place] [phone] PCP - General Family Medicine 08/14/23 Jerod Ba Jr., DO 100 [facility] [address] [place], [place] [address] Obstetrics 05/08/23 Lisa Jimenez [address] [place] [address] 100 [place], [place] [id number] RADIOTELEGRAPHIST 02/18/23 Leodan Sarabia DO [address] [facility] [address] [place], [place] [address] Gastroenterology 06/12/22 Priyanka Lyons [address] [place] [address] Urology 08/15/23 Justice Painter DPM [address] [place] [address] Podiatry 08/15/23 Sewing Demonstrator Relationship Specialty Start Date End Date Aure Carlton, EDGER HAND.OFFAL ICER POULTRY [address] [place] [address] [place] [phone] PCP - General Family Medicine 08/14/23 Jerod Ba Jr., DO 100 [facility] [address] [place], [place] [address] Obstetrics 05/08/23 Lisa Jimenez 546 [facility] 100 [place] [address] RADIOTELEGRAPHIST 02/18/23 Leodan Sarabia DO [address] [facility] [address] [place], [place] [address] Gastroenterology 06/12/22 Priyanka Lyons [address] [place], [place] [address] Urology 08/15/23 Justice Painter DPM [address] [place] [address] Podiatry 08/15/23 Sewing Demonstrator Relationship Specialty Start Date End Date Aure Carlton, EDGER HAND.OFFAL ICER POULTRY [address] [place] [address] [place] [phone] PCP - General Family Medicine 08/14/23 Jerod Ba Jr., DO [address] [facility] 201 [place], [place] [address] Obstetrics 05/08/23 Lisa Jimenez 546 [facility] 100 [place], [place] [address] RADIOTELEGRAPHIST 02/18/23 Leodan Sarabia DO 1761 [facility] [address] [place], [place] [address] Gastroenterology 06/12/22 Priyanka Lyons [address] [facility] 205 [place], [place] [address] Urology 08/15/23 Justice Painter DPM [address] [place] [address] Podiatry 08/15/23 Sewing Demonstrator Relationship Specialty Start Date End Date Aure Carlton, EDGER HAND.OFFAL ICER POULTRY [address] [facility] 3 [place] [address] PCP - General Family Medicine 08/14/23 Jerod Ba Jr., DO [address] [facility] 201 [place], [place] [address] Obstetrics 05/08/23 Lisa Jimenez 546 [facility] 100 [place] [address] RADIOTELEGRAPHIST 02/18/23 Leodan Sarabia DO [address] [facility] [address] [place], [place] [address] Gastroenterology 06/12/22 Priyanka Lyons [address] [facility] [address] [place], [place] [address] Urology 08/15/23 Justice Painter DPM [address] [place] [address] Podiatry 08/15/23 Sewing Demonstrator Relationship Specialty Start Date End Date Aure Carlton APRN.OFFAL ICER POULTRY [address] [facility] 3 [place] [address] PCP - General Family Medicine 08/14/23 Jerod Ba Jr., DO 100 [facility] 201 [place], [place] [address] Obstetrics 05/08/23 Lisa Jimenez DO [address] [place] [address] RADIOTELEGRAPHIST 02/18/23 Leodan Sarabia DO [address] [facility] [address] [place] [address] Gastroenterology 06/12/22 Priyanka Lyons [address] [facility] 205 [place] [address] Urology 08/15/23 Justice Painter DPM 4503 [place] [address] Podiatry 08/15/23 Sewing Demonstrator Relationship Specialty Start Date End Date Aure Carlton APRN.OFFAL ICER POULTRY [address] [facility] 3 [place] [address] PCP - General Family Medicine 08/14/23 Jerod Ba Jr., DO [address] [facility] 201 [place], [place] [address] Obstetrics 05/08/23 Lisa Jimenez DO [address] [place] [address] RADIOTELEGRAPHIST 02/18/23 Leodan Sarabia, DO 1761 [facility] 3B [place] [address] Gastroenterology 06/12/22 Priyanka Lyons [address] [facility] 205 [place] [address] Urology 08/15/23 Justice Painter DPM 4503 [place] [address] Podiatry 08/15/23 Sewing Demonstrator Relationship Specialty Start Date End Date Aure Carlton APRN.OFFAL ICER POULTRY [address] [facility] 3 [place] [address] PCP - General Family Medicine 08/14/23 Jerod Ba Jr., DO 100 [facility] 201 [place] [address] Obstetrics 05/08/23 Lisa Jimenez DO [address] [place] [address] RADIOTELEGRAPHIST 02/18/23 Leodan Sarabia DO 1761 [facility] 3B [place] [address] Gastroenterology 06/12/22 Priyanka Lyons [address] [facility] 205 [place] [address] Urology 08/15/23 Justice Painter DPM [address] [place] [address] Podiatry 08/15/23 Sewing Demonstrator Relationship Specialty Start Date End Date Aure Carlton APRN.OFFAL ICER POULTRY [address] [facility] 3 [place] [address] PCP - General Family Medicine 08/14/23 Jerod Ba Jr., DO 100 [facility] 201 [place] [address] Obstetrics 05/08/23 Lisa Jimenez DO [address] [place] [address] RADIOTELEGRAPHIST 02/18/23 Leodan Sarabia DO 1761 [facility] 3B [place] [address] Gastroenterology 06/12/22 Priyanka Lyons [address] [facility] 205 [place] [address] Urology 08/15/23 Justice Painter DPM [address] [place] [address] Podiatry 08/15/23 Sewing Demonstrator Relationship Specialty Start Date End Date Aure Carlton, EDGER HAND.OFFAL ICER POULTRY [address] Fred[address] 3 [place] [address] PCP - General Family Medicine 08/14/23 Jerod Ba Jr., DO 100 [facility] 201 [place] [address] Obstetrics 05/08/23 Lisa Jimenez DO [address] [place] [address] Lease Analyst 02/18/23 Leodan Sarabia DO [address] [facility] [address] [place] [address] Gastroenterology 06/12/22 Priyanka Lyons [address] [facility] 205 [place] [address] Urology 08/15/23 Justice Painter DPM [address] [place] [address] Podiatry 08/15/23 Team Status: Active Member Role Status Dates Out of Town Doctor Family Provider Active AURE CARLTON NP-Parul Primary Care Provider Active Team Status: Inactive Member Role Status Dates Dr. Priyanka Lyons MD Attending Provider, Referring Kamari marrufo Active AURE CARLTON NP-C Primary Care Provider Active Team Status: Inactive Member Role Status Dates TAMARA LANDERS Primary Care Provider Active Dr. Gustavo Snyder , DO Emergency Provider Active Sewing Demonstrator Relationship Specialty Start Date End Date Aure Carlton, EDGER HAND.OFFAL ICER POULTRY [address] [place] [address] [place] [phone] PCP - General Family Medicine 08/14/23 Jerod Ba Jr., DO 100 [facility] [address] [place], [place] [address] Obstetrics 05/08/23 Lisa Jimenez, DO [address] [place] [address] Lease Analyst 02/18/23 Leodan Sarabia DO [address] [facility] [address] [place], [place] [id number] Gastroenterology 06/12/22 Priyanka Lyons [address] [place], [place] [address] Urology 08/15/23 Justice Painter DPM [address] [place] [address] Podiatry 08/15/23 Sewing Demonstrator Relationship Specialty Start Date End Date Aure Carlton EDGER HAND.OFFAL ICER POULTRY [address] [facility] 3 [place] [phone] PCP - General Family Medicine 08/14/23 Jerod Ba Jr., DO [address] [facility] 201 [place], [place] [address] Obstetrics 05/08/23 Lisa Jimenez, DO [address] [place] [address] Lease Analyst 02/18/23 Leodan Sarabia, DO [address] [facility] [address] [place], [place] [address] Gastroenterology 06/12/22 Priyanka Lyons [address] [facility] 205 [place], [place] [address] Urology 08/15/23 Justice Painter DPM [address] [place] [address] Podiatry 08/15/23 Sewing Demonstrator Relationship Specialty Start Date End Date Aure Carlton, EDGER HAND.OFFAL ICER POULTRY [address] [facility] 3 [place] [address] PCP - General Family Medicine 08/14/23 Jerod Ba Jr., DO [address] [facility] 201 [place], [place] [address] Obstetrics 05/08/23 Lisa Jimenez DO [address] [place] [address] Lease Analyst 02/18/23 Priyanka Lyons [address] [place] [address] Urology 08/15/23 Justice Painter DPM [address] [place] [address] Podiatry 08/15/23 Syeda Mcfadden NP [address] [facility] 200 [place] [address] Gastroenterology 12/17/23 Sewing Demonstrator Relationship Specialty Start Date End Date Aure Carlton, VERNA.OFFAL ICER POULTRY [address] [facility] 3 [place] [phone] PCP - General Family Medicine 08/14/23 Jerod Ba Jr., DO 100 [facility] [address] [place] [address] Obstetrics 05/08/23 Lisa Jimenez DO [address] [place] [address] Lease Analyst 02/18/23 Priyanka Lyons [address] [facility] 205 [place] [address] Urology 08/15/23 Justice Painter DPM [address] [place] [address] Podiatry 08/15/23 Syeda Mcfadden NP [address] [place] [address] Gastroenterology 12/17/23 Sewing Demonstrator Relationship Specialty Start Date End Date Aure Carlton, EDGER HAND.OFFAL ICER POULTRY [address] [facility] 3 [place] [phone] PCP - General Family Medicine 08/14/23 Jerod Ba Jr., DO [address] [facility] 201 [place] [address] Obstetrics 05/08/23 Lisa Jimenez DO [address] [place] [address] Lease Analyst 02/18/23 Priyanka Lyons [address] [facility] 205 [place] [address] Urology 08/15/23 Justice Painter DPM [address] [place] [address] Podiatry 08/15/23 Syeda Mcfadden NP [address] [place] [address] Gastroenterology 12/17/23 Sewing Demonstrator Relationship Specialty Start Date End Date Aure Carlton, EDGER HAND.OFFAL ICER POULTRY [address] [facility] 3 [place] [phone] PCP - General Family Medicine 08/14/23 Jerod Ba Jr., DO [address] [facility] 201 [place] [address] Obstetrics 05/08/23 Lisa Jimenez DO [address] [place] [address] Lease Analyst 02/18/23 Priyanka Lyons [address] [facility] 205 [place], [place] [address] Urology 08/15/23 Justice Painter DPM [address] [place] [address] Podiatry 08/15/23 Syeda Mcfadden NP [address] [facility] 200 [place], [place] [address] Gastroenterology 12/17/23 Sewing Demonstrator Relationship Specialty Start Date End Date Aure Carlton APRN.OFFAL ICER POULTRY [address] [facility] 3 [place] [address] PCP - General Family Medicine 08/14/23 Jerod Ba Jr., DO 100 [facility] 201 [place] [address] Obstetrics 05/08/23 Lisa Jimenez DO [address] [place] [address] Lease Analyst 02/18/23 Priyanka Lyons [address] [place] [address] Urology 08/15/23 Justice Painter DPM [address] [place] [address] Podiatry 08/15/23 Syeda Mcfadden NP [address] [facility] 200 [place], [place] [address] Gastroenterology 12/17/23 Sewing Demonstrator Relationship Specialty Start Date End Date Aure Carlton, VERNA.OFFAL ICER POULTRY [address] [facility] 3 [place] [phone] PCP - General Family Medicine 08/14/23 Jerod Ba Jr., DO [address] [facility] 201 [place], [place] [address] Obstetrics 05/08/23 Lisa Jimenez DO [address] [place], [place] [address] Lease Analyst 02/18/23 Priyanka Lyons [address] [place] [address] Urology 08/15/23 Justice Painter DPM [address] [place] [address] Podiatry 08/15/23 Syeda Mcfadden NP [address] [place] [address] Gastroenterology 12/17/23 Sewing Demonstrator Relationship Specialty Start Date End Date Aure Carlton APRN.OFFAL ICER POULTRY [address] [place] [address] [place] [address] PCP - General Family Medicine 08/14/23 Jerod Ba Jr., DO [address] [facility] 201 [place], [place] [address] Obstetrics 05/08/23 Lisa Jimenez DO [address] [place] [address] Lease Analyst 02/18/23 Priyanka Lyons [address] [facility] 205 [place] [address] Urology 08/15/23 Justice Painter DPM 4503 [place] [address] Podiatry 08/15/23 Syeda Mcfadden NP [address] [place] [address] Gastroenterology 12/17/23 Sewing Demonstrator Relationship Specialty Start Date End Date Aure Carlton APRN.OFFAL ICER POULTRY [address] [facility] [address] [place] [address] PCP - General Family Medicine 08/14/23 Jerod Ba Jr., DO [address] [facility] 201 [place] [address] Obstetrics 05/08/23 Lisa Jimenez DO [address] [place] [address] Lease Analyst 02/18/23 Priyanka Lyons [address] [facility] 205 [place] [address] Urology 08/15/23 Justice Painter DPM [address] [place] [address] Podiatry 08/15/23 Syeda Mcfadden NP [address] [facility] 200 [place] [address] Gastroenterology 12/17/23 Sewing Demonstrator Relationship Specialty Start Date End Date Aure Carlton APRN.OFFAL ICER POULTRY [address] [facility] 3 [place] [address] PCP - General Family Medicine 08/14/23 Jerod Ba Jr., DO [address] [facility] 201 [place] [address] Obstetrics 05/08/23 Lisa Jimenez DO [address] [place] [id number] Lease Analyst 02/18/23 Priyanka Lyons [address] [facility] 205 [place] [address] Urology 08/15/23 Justice Painter DPM [address] [place] [address] Podiatry 08/15/23 Syeda Mcfadden NP [address] [place], [place] [address]350 Gastroenterology 12/17/23 Sewing Demonstrator Relationship Specialty Start Date End Date Aure Carlton APRN.OFFAL ICER POULTRY [address] [place] [address] [place] [phone] PCP - General Family Medicine 08/14/23 Jerod Ba Jr. DO 100 [facility] 201 [place], [place] [address] Obstetrics 05/08/23 Lisa Jimenez DO [address] [place] [address] Lease Analyst 02/18/23 Priyanka Lyons [address] [place] [address] Urology 08/15/23 Justice Painter DPM [address] [place] [address] Podiatry 08/15/23 Syeda Mcfadden NP [address] 200 [place] [address] Gastroenterology 12/17/23 Sewing Demonstrator Relationship Specialty Start Date End Date Aure Carlton [address] [place] [address] [place] [address] PCP - General Nurse Practitioner Family 04/24/24 Sewing Demonstrator Relationship Specialty Start Date End Date Aure Carlton APRN.OFFAL ICER POULTRY [address] [facility] 3 [place] [address]5746646[address]23[address] PCP - General Family Medicine 08/14/23 Jerod Ba Jr., DO [address] [facility] [address] [place], [place] [id number] Obstetrics 05/08/23 Lisa Jimenez DO [address] [place] [address] Lease Analyst 02/18/23 Priyanka Lyons [address] [place] [address] Urology 08/15/23 Justice Painter DPM [address] [place] [address] Podiatry 08/15/23 Syeda Mcfadden NP [address] [facility] 200 [place] [address] Gastroenterology 12/17/23 Sewing Demonstrator Relationship Specialty Start Date End Date Aure Carlton APRN.OFFAL ICER POULTRY [address] [place] [address] [place] [phone] PCP - General Family Medicine 08/14/23 Jerod Ba Jr., 100 [address] [facility] 201 [place] [address] Obstetrics 05/08/23 Lisa Jimenez DO [address] [place] [address] Lease Analyst 02/18/23 Priyanka Lyons [address] [facility] 205 [place] [address] Urology 08/15/23 Justice Painter DPM 4503 [place] [address] Podiatry 08/15/23 Syeda Mcfadden NP [address] [place], [place] [address] Gastroenterology 12/17/23 Radhika Scott [address] [place] [address]23[address] Gastroenterology 04/28/24 Sewing Demonstrator Relationship Specialty Start Date End Date Aure Carlton, EDGER HAND.OFFAL ICER POULTRY [address] [facility] 3 [place] [address] PCP - General Family Medicine 08/14/23 Jerod Ba Jr., [address] [facility] 201 [place] [address] Obstetrics 05/08/23 Lisa Jimenez DO [address] [place] [address] Lease Analyst 02/18/23 Priyanka Lyons [address] [facility] 205 [place] [address] Urology 08/15/23 Justice Painter DPM 4503 [place] [address] Podiatry 08/15/23 Syeda Mcfadden NP [address] [place], [place] [address]24[address] Gastroenterology 12/17/23 Radhika Scott [address] [place] [address] Gastroenterology 04/28/24 Sewing Demonstrator Relationship Specialty Start Date End Date Aure Carlton APRN.OFFAL ICER POULTRY [address] [facility] 3 [place] [address] PCP - General Family Medicine 08/14/23 Jerod Ba Jr., DO [address] [facility] 201 [place] [address] Obstetrics 05/08/23 Lisa Jimenez DO [address] [place] [address] Lease Analyst 02/18/23 Priyanka Lyons [address] [facility] 205 [place] [address] Urology 08/15/23 Justice Painter DPM [address] [place] [address] Podiatry 08/15/23 Syeda Mcfadden NP [address] [place], [place] [address]39[address] Gastroenterology 12/17/23 Radhika Scott [address] [place] [address] Gastroenterology 04/28/24 Sewing Demonstrator Relationship Specialty Start Date End Date Aure Carlton APRN.OFFAL ICER POULTRY [address] [facility] 3 [place] [address]2445[address]2392 PCP - General Family Medicine 08/14/23 Jerod Ba Jr. DO [address] [facility] 201 [place], [place] [address]37 Obstetrics 05/08/23 Lisa Jimenez DO [address] [place] [address] Lease Analyst 02/18/23 Priyanka Lyons [address] [facility] 205 [place], [place] 0[address]561 Urology 08/15/23 Justice Painter DPM [address] [place] [address] Podiatry 08/15/23 Syeda Mcfadden NP [address] [place], [place] [address] Gastroenterology 12/17/23 Radhika Scott [address] [place] [address] Gastroenterology 04/28/24 Sewing Demonstrator Relationship Specialty Start Date End Date Aure Carlton APRN.OFFAL ICER POULTRY [address] [facility] 3 [place] [address]67[address]646[address]2392 PCP - General Family Medicine 08/14/23 Jerod Ba Jr., DO 100 [facility] 201 [place], [place] [id number] Obstetrics 05/08/23 Lisa Jimenez DO [address] [place] [address] Lease Analyst 02/18/23 Priyanka Lyons [address] [facility] 205 [place] [address] Urology 08/15/23 Justice Painter DPM 4503 [place] [address] Podiatry 08/15/23 Syeda Mcfadden NP [address] [place], [place] [id number] Gastroenterology 12/17/23 Radhika Scott [address] [place] [address]63[address]4208 Gastroenterology 04/28/24 Sewing Demonstrator Relationship Specialty Start Date End Date Aure Carlton APRN.OFFAL ICER POULTRY [address] [facility] 3 [place] [address]23[address] PCP - General Family Medicine 08/14/23 Jerod Ba Jr., DO [address] [facility] 201 [place], [place] [address]137 Obstetrics 05/08/23 Lisa Jimenez DO [address] [place] [address] Lease Analyst 02/18/23 Priyanka Lyons [address] [facility] 205 [place] [address] Urology 08/15/23 Justice Painter DPM 4503 [place] [address] Podiatry 08/15/23 Syeda Mcfadden NP [address] [place] [id number] Gastroenterology 12/17/23 Radhika Scott [address] [place] [address] Gastroenterology 04/28/24 Sewing Demonstrator Relationship Specialty Start Date End Date Aure Carlton, EDGER HAND.OFFAL ICER POULTRY [address] [facility] 3 [place] [address]0312646[address]2392 PCP - General Family Medicine 08/14/23 Jerod Ba Jr., DO [address] [facility] 201 [place], [place] [address] Obstetrics 05/08/23 Lisa Jimenez DO [address] [place] [address] Lease Analyst 02/18/23 Priyanka Lyons MD [address] [facility] 205 [place] [address] Urology 08/15/23 Justice Painter DPM [address] [place] [address] Podiatry 08/15/23 Syeda Mcfadden NP [address] [facility] 200 [place] [address] Gastroenterology 12/17/23 Sewing Demonstrator Relationship Specialty Start Date End Date Aure Carlton APRN.OFFAL ICER POULTRY [address] [facility] 3 [place] [address] PCP - General Family Medicine 08/14/23 Jerod Ba Jr., DO [address] [facility] 201 [place], [place] [address]87 Obstetrics 05/08/23 Lisa Jimenez DO [address] [place] [address] Lease Analyst 02/18/23 Leodan Sarabia DO [address] [place], [place] [address] Gastroenterology 06/12/22 01/26/24 Priyanka Lyons MD [address] [place], [place] [address]291 Urology 08/15/23 Justice Painter DPM [address] [place] [address] Podiatry 08/15/23 Sewing Demonstrator Relationship Specialty Start Date End Date Robert Pearson MD 2300 [facility] 100 [place] [address] PCP - General Internal Medicine 05/08/23 08/13/23 Jerod Ba Jr., DO 100 [facility] 201 [place], [place] [address]87 Obstetrics 05/08/23 Lisa Jimenez, DO [address] [place] [address] Lease Analyst 02/18/23 Leodan Sarabia, DO [address] [facility] [address] [place], [place] [address] Gastroenterology 06/12/22 01/26/24 Sewing Demonstrator Relationship Specialty Start Date End Date Leodan Sarabia, DO [address] [place], [place] [address] Gastroenterology 06/12/22 01/26/24 Sewing Demonstrator Relationship Specialty Start Date End Date Aure Carlton MD [address] [place] [address] PCP - General 06/14/24 Sewing Demonstrator Relationship Specialty Start Date End Date Aure Carlton APRN.OFFAL ICER POULTRY [address] [facility] 3 [place] [address] PCP - General Family Medicine 08/14/23 Jerod Ba Jr. DO [address] [facility] 201 [place], [place] [address] Obstetrics 05/08/23 Lisa Jimenez DO [address] [place] [address] Lease Analyst 02/18/23 Priyanka Lyons MD [address] [facility] 205 [place], [place] 12[address] Urology 08/15/23 Justice Painter DPM [address] [place] [address] Podiatry 08/15/23 Syeda Mcfadden NP [address] [place], [place] [address] Gastroenterology 12/17/23 Radhika Scott [address] [place] [address] Gastroenterology 04/28/24 Sewing Demonstrator Relationship Specialty Start Date End Date Aure Carlton APRN.OFFAL ICER POULTRY [address] [facility] 3 [place] [address] PCP - General Family Medicine 08/14/23 Jerod Ba Jr. DO [address] [facility] 201 [place], [place] [address]17 Obstetrics 05/08/23 Lisa Jimenez DO [address] [place] [address] Lease Analyst 02/18/23 Priyanka Lyons MD [address] [facility] 205 [place], [place] 293411 Urology 08/15/23 Justice Painter DPM [address] [place] [address] Podiatry 08/15/23 Syeda Mcfadden EXPERIENTIAL THERAPIST [address] [place], [place] 9339[address] Gastroenterology 12/17/23 Radhika Scott [address] [place] [address] Gastroenterology 04/28/24 Sewing Demonstrator Relationship Specialty Start Date End Date Aure Carlton MD [address] [place] [address] PCP - General 06/14/24 Sewing Demonstrator Relationship Specialty Start Date End Date Aure Carlton MD [address] [place] [address] PCP - General 06/14/24 Sewing Demonstrator Relationship Specialty Start Date End Date Aure Carlton, EDGER HAND.OFFAL ICER POULTRY [address] [facility] 3 [place] [address]3279646[address]2392 PCP - General Family Medicine 08/14/23 Jerod Ba Jr. DO [address] [facility] 201 [place], [place] [address] Obstetrics 05/08/23 Lisa Jimenez DO [address] [place] [address] Lease Analyst 02/18/23 Priyanka Lyons MD [address] [facility] 205 [place], [place] [address]241 Urology 08/15/23 Justice Painter DPM [address] [place] [address] Podiatry 08/15/23 Syeda Mcfadden NP [address] [place], [place] [address] Gastroenterology 12/17/23 Radhika Scott [address] [place] [address] Gastroenterology 04/28/24 Sewing Demonstrator Relationship Specialty Start Date End Date Aure Carlton, EDGER HAND.OFFAL ICER POULTRY [address] [facility] 3 [place] [address]7607646[address]23[address] PCP - General Family Medicine 08/14/23 Jerod Ba Jr., DO [address] [facility] 201 [place], [place] [address]107 Obstetrics 05/08/23 Lisa Jimenez DO [address] [place] [address] Lease Analyst 02/18/23 Priyanka Lyons MD [address] [facility] 205 [place], [place] [address]341 Urology 08/15/23 Justice Painter DPM 450[address] [place] [address] Podiatry 08/15/23 Syeda Mcfadden NP [address] [place], [place] [address]20 Gastroenterology 12/17/23 Radhika Scott [address] [place] [address]2483[address] Gastroenterology 04/28/24 Sewing Demonstrator Relationship Specialty Start Date End Date Aure Carlton, EDGER HAND.OFFAL ICER POULTRY [address] [facility] 3 [place] [address]23[address] PCP - General Family Medicine 08/14/23 Jerod Ba Jr., DO [address] [facility] 201 [place] [address] Obstetrics 05/08/23 Lisa Jimenez DO [address] [place] [address] Lease Analyst 02/18/23 Priyanka Lyons MD [address] [place], [place] [address]131 Urology 08/15/23 Justice Painter DPM [address] [place] [address] Podiatry 08/15/23 Syeda Mcfadden NP [address] [place], [place] [address] Gastroenterology 12/17/23 Radhika Scott [address] [place] [address] Gastroenterology 04/28/24 Team Status: Inactive Member Role Status Dates No Primary Care Physician Primary Care Provider Active Dr. Darrian Singh , Attending Provider, Emergency Provider Active Sewing Demonstrator Relationship Specialty Start Date End Date Aure Carlton MD [address] [place] [address] PCP - General 06/14/24 Sewing Demonstrator Relationship Specialty Start Date End Date Auer Carlton MD [address] [place] [address] PCP - General 06/14/24 Sewing Demonstrator Relationship Specialty Start Date End Date Aure Carlton APRN.OFFAL ICER POULTRY [address] [facility] 3 [place] [address] PCP - General Family Medicine 08/14/23 Jerod Ba Jr., DO [address] [facility] 201 [place] [address] Obstetrics 05/08/23 Lisa Jimenez DO [address] [place] [address] Lease Analyst 02/18/23 Priyanka Lyons MD [address] [facility] 205 [place] [address] Urology 08/15/23 Justice Painter DPM [address] [place] [address] Podiatry 08/15/23 Syeda Mcfadden NP [address] [place], [place] [address] Gastroenterology 12/17/23 Radhika Scott [address] [place] [address]95[address] Gastroenterology 04/28/24 Sewing Demonstrator Relationship Specialty Start Date End Date Aure Carlton MD [address] [place] [address] PCP - General 06/14/24 Sewing Demonstrator Relationship Specialty Start Date End Date Aure Carlton APRN.OFFAL ICER POULTRY [address] [facility] 3 [place] [address] PCP - General Family Medicine 08/14/23 Jerod Ba Jr., DO [address] [facility] 201 [place] [address] Obstetrics 05/08/23 Lisa Jimenez DO [address] [place] [address] Lease Analyst 02/18/23 Priyanka Lyons MD [address] [facility] 205 [place], [place] [address]201 Urology 08/15/23 Justice Painter DPM 450[address] [place] [address] Podiatry 08/15/23 Syeda Mcfadden NP [address] [place], [place] [address] Gastroenterology 12/17/23 Radhika Scott [address] [place] [address] Gastroenterology 04/28/24 Sewing Demonstrator Relationship Specialty Start Date End Date Aure Carlton APRN.OFFAL ICER POULTRY [address] [facility] 3 [place] [address]0717[address]2392 PCP - General Family Medicine 08/14/23 Jerod Ba Jr., DO [address] [facility] 201 [place] [address] Obstetrics 05/08/23 Lisa Jimenez DO [address] [place] [address] Lease Analyst 02/18/23 Priyanka Lyons MD [address] [facility] 205 [place] [address] Urology 08/15/23 Justice Painter DPM 450[address] [place] [address] Podiatry 08/15/23 Syeda Mcfadden NP [address] [place], [place] [address]120 Gastroenterology 12/17/23 Radhika Scott MD [address] [place] [address]0911320[address] Gastroenterology 04/28/24 Sewing Demonstrator Relationship Specialty Start Date End Date Jerod Ba Jr., DO 100 [facility] 201 [place], [place] [address]677 Obstetrics 05/08/23 Lisa Jimenez DO [address] [place] [address] Lease Analyst 02/18/23 Priyanka Lyons MD [address] [facility] 205 [place] [address] Urology 08/15/23 Justice Painter DPM 450[address] [place] [address] Podiatry 08/15/23 Syeda Mcfadden NP [address] [place] [address] Gastroenterology 12/17/23 Radhika Scott MD [address] [place] [address]1030[address] Gastroenterology 04/28/24 Sewing Demonstrator Relationship Specialty Start Date End Date Jerod Ba Jr., DO [address] [facility] 201 [place], [place] [address]47 Obstetrics 05/08/23 Lisa Jimenez DO [address] [place] [address] Lease Analyst 02/18/23 Priyanka Lyons MD [address] [facility] 205 [place] [address] Urology 08/15/23 Justice Painter DPM [address] [place] [address] Podiatry 08/15/23 Syeda Mcfadden NP [address] [place], [place] [address] Gastroenterology 12/17/23 Radhika Scott MD [address] [place] [address]0618[address] Gastroenterology 04/28/24 Sewing Demonstrator Relationship Specialty Start Date End Date Aure Carlton APRN.OFFAL ICER POULTRY [address] [facility] 3 [place] [address]3707646[address]2392 PCP - General Family Medicine 01/11/25 Jerod Ba Jr., DO [address] [facility] 201 [place] [address] Obstetrics 05/08/23 Lisa Jimenez DO [address] [place] [address] Lease Analyst 02/18/23 Priyanka Lyons MD [address] [facility] 205 [place], [place] [address] Urology 08/15/23 Justice Painter DPM [address] [place] [address] Podiatry 08/15/23 Syeda Mcfadden EXPERIENTIAL THERAPIST [address] [place], [place] [address]10[address] Gastroenterology 12/17/23 Radhika Scott MD [address] [place] [address]429[address] Gastroenterology 04/28/24 Sewing Demonstrator Relationship Specialty Start Date End Date Aure Carlton, EDGER HAND.OFFAL ICER POULTRY [address] [facility] 3 [place] [address]-0770646[address]2392 PCP - General Family Medicine 01/11/25 Jerod Ba Jr., DO [address] [facility] 201 [place] [address] Obstetrics 05/08/23 Lisa Jimenez DO [address] [place] [address] Lease Analyst 02/18/23 Priyanka Lyons MD [address] [place], [place] [address] Urology 08/15/23 Justice Painter DPM [address] [place] [address] Podiatry 08/15/23 Syeda Mcfadden NP [address] [place], [place] [address]8746[address] Gastroenterology 12/17/23 Radhika Scott MD [address] [place] [address]9625[address]-4208 Gastroenterology 04/28/24 Sewing Demonstrator Relationship Specialty Start Date End Date Aure Carlton, VERNA.OFFAL ICER POULTRY [address] [facility] 3 [place] [address]-9777646[address]2392 PCP - General Family Medicine 01/11/25 Jerod Ba Jr., DO [address] [facility] [address] [place], [place] [address]697 Obstetrics 05/08/23 Lisa Jimenez DO [address] [place] [address] Lease Analyst 02/18/23 Priyanka Lyons MD [address] [facility] 205 [place] [address] Urology 08/15/23 Justice Painter DPM 4503 [place] [address] Podiatry 08/15/23 Syeda Mcfadden NP [address] [place], [place] [address] Gastroenterology 12/17/23 Radhika Scott MD [address] [place] [address] Gastroenterology 04/28/24 Sewing Demonstrator Relationship Specialty Start Date End Date Aure Carlton, VERNA.OFFAL ICER POULTRY [address] [facility] 3 [place] [address] PCP - General Family Medicine 01/11/25 Jerod Ba Jr., DO 100 [facility] 201 [place] [address] Obstetrics 05/08/23 Lisa Jimenez DO [address] [place] [address] Lease Analyst 02/18/23 Priyanka Lyons MD [address] [facility] 205 [place] [address] Urology 08/15/23 Justice Painter DPM 4503 [place] [address] Podiatry 08/15/23 Syeda Mcfadden NP [address] [place], [place] 68936[address] Gastroenterology 12/17/23 Radhika Scott MD [address] [place] [address] Gastroenterology 04/28/24 Sewing Demonstrator Relationship Specialty Start Date End Date Aure Carlton APRN.OFFAL ICER POULTRY [address] [facility] 3 [place] [address]-8133646[address]2392 PCP - General Family Medicine 01/11/25 Jerod Ba Jr., DO [address] [facility] 201 [place], [place] 507447 Obstetrics 05/08/23 Lisa Jimenez DO [address] [place] [address] Lease Analyst 02/18/23 Priyanka Lyons MD [address] [facility] 205 [place] [address] Urology 08/15/23 Justice Painter DPM [address] [place] [address] Podiatry 08/15/23 Syeda Mcfadden NP [address] [place], [place] 130[address] Gastroenterology 12/17/23 Radhika Scott MD [address] [place] [address]168[address] Gastroenterology 04/28/24 Sewing Demonstrator Relationship Specialty Start Date End Date Aure Carlton APRN.OFFAL ICER POULTRY [address] [facility] 3 [place] [address]5009646[address]2392 PCP - General Family Medicine 01/11/25 Jerod Ba Jr., DO [address] [facility] 201 [place], [place] [address] Obstetrics 05/08/23 Lisa Jimenez DO [address] [place] [address] Lease Analyst 02/18/23 Priyanka Lyons MD [address] [facility] 205 [place], [place] [address] Urology 08/15/23 Justice Painter DPM [address]3 [place] [address] Podiatry 08/15/23 Syeda Mcfadden NP [address] [place], [place] [address] Gastroenterology 12/17/23 Radhika Scott MD [address] [place] [address]0337320[address] Gastroenterology 04/28/24 Sewing Demonstrator Relationship Specialty Start Date End Date Aure Carlton APRN.OFFAL ICER POULTRY [address] [facility] 3 [place] [address] PCP - General Family Medicine 01/11/25 Jerod Ba Jr. DO [address] [facility] 201 [place], [place] [address]457 Obstetrics 05/08/23 Lisa Jimenez DO [address] [place] [address] Lease Analyst 02/18/23 Priyanka Lyons MD [address] [facility] 205 [place], [place] [address]081 Urology 08/15/23 Justice Painter DPM [address] [place] [address] Podiatry 08/15/23 Syeda Mcfadden NP [address] [place], [place] [address] Gastroenterology 12/17/23 Radhika Scott MD [address] [place] [address]-42443[address] Gastroenterology 04/28/24 Team Status: Active Member Role Status Dates AURE CARLTON NP-Parul Primary Care Provider Active Team Status: Active Member Role Status Dates TAMARA LANDERS Primary Care Provider Active Start: October 23, 2024 Dr. Ayaz Crisostomo DO Emergency Provider Active S tart: October 23, 2024 Dr. Rosana Pizano MD Attending Provider Active Start: October 23, 2024 Team Status: Inactive Member Role Status Dates AURE NODIANA , EXPERIENTIAL THERAPIST-C Primary Care Provider Active Start: October 23, 2024 End: October 25, 2024 Dr. Ayaz Crisostomo DO Emergency Provider Active S tart: October 23, 2024 End: October 25, 2024 Dr. Rosana Pizano MD Admit Provider Active Star t: October 23, 2024 End: October 25, 2024 Dr. Rosana Pizano MD Other Provider Active Star t: October 23, 2024 End: October 25, 2024 Dr. Gavin Vaca DO Attending Provider Active Start: October 23, 2024 End: October 25, 2024 Team Status: Active Member Role Status Dates AURETERRI CARLTON , EXPERIENTIAL THERAPIST-C Primary Care Provider Active Start: October 24, 2024 Dr. Ayaz Crisostomo DO Emergency Provider Active S tart: October 24, 2024 Dr. Rosana Pizano MD Admit Provider Active Star t: October 24, 2024 Dr. Rosana Pizano MD Other Provider Active Star t: October 24, 2024 Dr. Gavin Vaca DO Attending Provider Active Start: October 24, 2024 Dr. Gavin Vaca DO Other Provider Active S tart: October 24, 2024 Team Status: Active Member Role Status Dates AURETERRI CARLTON , EXPERIENTIAL THERAPIST-C Primary Care Provider Active Start: October 25, 2024 Dr. Ayaz Crisostomo DO Emergency Provider Active S tart: October 25, 2024 Dr. Rosana Pizano MD Admit Provider Active Star t: October 25, 2024 Dr. Rosana Pizano MD Other Provider Active Star t: October 25, 2024 Dr. Gavin Vaca DO Attending Provider Active Start: October 25, 2024 Dr. Gavin Vaca DO Other Provider Active S tart: October 25, 2024 Team Status: Inactive Member Role Status Dates AURE CARLTON , EXPERIENTIAL THERAPIST-C Primary Care Provider Active Start: December 07, 2024 End: December 07, 2024 Dr. Tree Mitchell DO Attending Provider Active Start: December 07, 2024 End: December 07, 2024 Dr. Tree Mitchell DO Emergency Provider Active Start: December 07, 2024 End: December 07, 2024 Team Status: Inactive Member Role Status Dates AURE NODIANA , EXPERIENTIAL THERAPIST-C Primary Care Provider Active Start: December 17, 2024 End: December 17, 2024 Dr. Radhika Scott MD Attending Provider Active Start: December 17, 2024 End: December 17, 2024 Dr. Radhika Scott MD Referring Provider Active Start: December 17, 2024 End: December 17, 2024 Team Status: Inactive Member Role Status Dates TAMARA LANDERS Primary Care Provider Active Start: December 24, 2024 End: December 24, 2024 TAMARA LANDERS Attending Provider Active St art: December 24, 2024 End: December 24, 2024 TAMARA LANDERS Referring Provider Active St art: December 24, 2024 End: December 24, 2024 Dr. Radhika Scott MD Other Provider Active Star t: December 24, 2024 End: December 24, 2024 Team Status: Inactive Member Role Status Dates TAMARA LANDERS Primary Care Provider Active Start: February 07, 2025 End: February 08, 2025 Dr. Gustavo Snyder DO Emergency Provider Active Start: February 07, 2025 End: February 08, 2025 Sewing Demonstrator Relationship Specialty Start Date End Date Aure Carlton APRN.OFFAL ICER POULTRY [address] [facility] 3 [place] [address] PCP - General Family Medicine 01/11/25 Jerod Ba Jr. DO 100 [facility] 201 [place] [address] Obstetrics 05/08/23 Lisa Jimenez DO [address] [place] [address] Lease Analyst 02/18/23 Priyanka Lyons MD [address] [facility] 205 [place] [address] Urology 08/15/23 Justice Painter DPM [address] [place] [address] Podiatry 08/15/23 Syeda Mcfadden NP [address] [place], [place] [id number] Gastroenterology 12/17/23 Radhika Scott MD [address] [place] [phone] Gastroenterology 04/28/24 Sewing Demonstrator Relationship Specialty Start Date End Date Aure Carlton, EDGER HAND.OFFAL ICER POULTRY [address] [facility] 3 [place] [phone] PCP - General Family Medicine 01/11/25 Jerod Ba Jr., DO 100 [facility] [address] [place], [place] [address] Obstetrics 05/08/23 Lisa Jimenez DO [address] [place] [address] Lease Analyst 02/18/23 Priyanka Lyons MD [address] [facility] [address] [place] [address] Urology 08/15/23 Justice Painter DPM [address] [place] [address] Podiatry 08/15/23 Syeda Mcfadden NP [address] [place], [place] [phone] Gastroenterology 12/17/23 Radhika Scott MD [address] [place] [phone] Gastroenterology 04/28/24 Sewing Demonstrator Relationship Specialty Start Date End Date Aure Carlton APRN.OFFAL ICER POULTRY [address] [facility] 3 [place] [phone] PCP - General Family Medicine 01/11/25 Jerod Ba Jr. DO 100 [facility] 201 [place], [place] [address] Obstetrics 05/08/23 Lisa Jimenez DO [address] [place] [address] Lease Analyst 02/18/23 Priyanka Lyons MD [address] [facility] 205 [place], [place] [address] Urology 08/15/23 Justice Painter DPM [address] [place] [address] Podiatry 08/15/23 Syeda Mcfadden NP [address] [place], [place] [phone] Gastroenterology 12/17/23 Radhika Scott MD [address] [place] [phone] Gastroenterology 04/28/24 Sewing Demonstrator Relationship Specialty Start Date End Date Aure Carlton [address] [facility] 3 [place] [phone] PCP - General Nurse Practitioner Family 04/24/24 Sewing Demonstrator Relationship Specialty Start Date End Date Aure Carlton EDGER HAND.OFFAL ICER POULTRY [address] [facility] [facility] 3 [place] [phone] PCP - General Family Medicine 01/11/25 Jerod Ba Jr., DO [address] [facility] 201 [place], [place] [address] Obstetrics 05/08/23 Lisa Jimenez DO [address] [place] [address] Lease Analyst 02/18/23 Priyanka Lyons MD [address] [facility] 205 [place], [place] [address] Urology 08/15/23 Justice Painter DPM [address] [place] [address] Podiatry 08/15/23 Syeda Mcfadden NP [address] [place] [phone] Gastroenterology 12/17/23 Radhika Scott MD [address] [place] [phone] Gastroenterology 04/28/24 Sewing Demonstrator Relationship Specialty Start Date End Date Aure Carlton APRN.OFFAL ICER POULTRY [address] [facility] 3 [place] [phone] PCP - General Family Medicine 01/11/25 Jerod Ba Jr., DO [address] [facility] [address] [place], [place] [address] Obstetrics 05/08/23 Lisa Jimenez, DO [address] [place] [address] Lease Analyst 02/18/23 Priyanka Lyons MD [address] [facility] [address] [place], [place] [address] Urology 08/15/23 Justice Painter DPM [address] [place] [address] Podiatry 08/15/23 Syeda Mcfadden EXPERIENTIAL THERAPIST [address] [place], [place] [phone] Gastroenterology 12/17/23 Radhika Scott MD [address] [place] [phone] Gastroenterology 04/28/24 Sewing Demonstrator Relationship Specialty Start Date End Date Aure Carlton APRN.OFFAL ICER POULTRY [address] [facility] 3 [place] [phone] PCP - General Family Medicine 01/11/25 Jerod Ba Jr., DO [address] [facility] [address] [place] [address] Obstetrics 05/08/23 Lisa Jimenez DO [address] [place] [address] Lease Analyst 02/18/23 Priyanka Lyons MD [address] [facility] [address] [place] [address] Urology 08/15/23 Justice Painter DPM [address] [place] [address] Podiatry 08/15/23 Syeda Mcfadden NP [address] [place], [place] [address] Gastroenterology 12/17/23 Radhika Scott MD [address] [place] [phone] Gastroenterology 04/28/24 Sewing Demonstrator Relationship Specialty Start Date End Date Aure Carlton, EDGER HAND.OFFAL ICER POULTRY [address] [facility] 3 [place] [phone] PCP - General Family Medicine 01/11/25 Jerod Ba Jr., DO [address] [facility] [address] [place] [address] Obstetrics 05/08/23 Lisa Jimenez DO [address] [place] [address] Lease Analyst 02/18/23 Priyanka Lyons MD [address] [facility] [address] [place] [address] Urology 08/15/23 Justice Painter DPM [address] [place] [phone] Podiatry 08/15/23 Syeda Mcfadden NP [address] [place] [address] Gastroenterology 12/17/23 Radhika Scott MD [address] [place] [phone] Gastroenterology 04/28/24 Sewing Demonstrator Relationship Specialty Start Date End Date Aure Carlton, EDGER HAND.OFFAL ICER POULTRY [address] [facility] 3 [place] [phone] PCP - General Family Medicine 01/11/25 Jerod Ba Jr., DO [address] [facility] [address] [place] [address] Obstetrics 05/08/23 Lisa Jimenez DO [address] [place] [address] Lease Analyst 02/18/23 Priyanka Lyons MD [address] [facility] [address] [place] [address] Urology 08/15/23 Justice Painter DPM [address] [place] [address] Podiatry 08/15/23 Syeda Mcfadden NP [address] [place], [place] [phone] Gastroenterology 12/17/23 Radhika Scott MD [address] [place] [phone] Gastroenterology 04/28/24 Sewing Demonstrator Relationship Specialty Start Date End Date Aure Carlton APRN.OFFAL ICER POULTRY [address] [facility] 3 [place] [phone] PCP - General Family Medicine 01/11/25 Jerod Ba Jr., DO [address] [facility] [address] [place], [place] [address] Obstetrics 05/08/23 Lisa Jimenez DO [address] [place] [address] Lease Analyst 02/18/23 Priyanka Lyons MD [address] [facility] [address] [place], [place] [address] Urology 08/15/23 Justice Painter DPM [address] [place] [address] Podiatry 08/15/23 Syeda Mcfadden NP [address] [place], [place] [phone] Gastroenterology 12/17/23 Radhika Scott MD [address] [place] [phone] Gastroenterology 04/28/24 Sewing Demonstrator Relationship Specialty Start Date End Date Aure Carlton, EDGER HAND.OFFAL ICER POULTRY [address] [place] [address] [place] [phone] PCP - General Family Medicine 01/11/25 Jerod Ba Jr. DO 100 [facility] 201 [place], [place] [address] Obstetrics 05/08/23 Lisa Jimenez DO [address] [place] [address] Lease Analyst 02/18/23 Priyanka Lyons MD [address] [facility] [address] [place] [address] Urology 08/15/23 Justice Painter DPM [address] [place] [address] Podiatry 08/15/23 Syeda Mcfadden NP [address] [place], [place] [address] Gastroenterology 12/17/23 Radhika Scott MD [address] [place] [address] Gastroenterology 04/28/24 FOR RECORDS PERTAINING TO PATIENTS WHO ARE [...] BE BASED ON THE PRIMARY CLINICAL RECORDS. [facility] [employer] [facility]. provides no warranty or guarantee of the accuracy or completeness of information in this document.
--- NOTE | 2025-05-15 03:09 | RAD_ITS ---
PROCEDURE: CHEST 1 VIEW (PORTABLE) 05/15/2025 REASON FOR EXAM: CHEST PAIN TECHNIQUE: Frontal view of the chest. COMPARISON: 07/08/2024 FINDINGS: Normal heart size. Curvy linear scar/atelectasis towards the left base. Otherwise, well inflated lungs. No consolidation, effusion, or pneumothorax. RAD/Chest 1 View (Portable) IMPRESSION: No acute chest findings. Reading Location: [facility]-
[2025-05-15 03:20] LABS: Absolute Lymphocyte Count 0.95 X10^3/uL (0.83-4.51); Absolute Neutrophil Count 2.5 X10^3/uL (2.0-7.7); Basophil# 0.01 X10^3/uL; Basophil% 0.3 % (0-1); Eosinophil# 0.04 X10^3/uL; Eosinophils% 1.1 % (0-5); Hematocrit 36.7 % (37-47); Hemoglobin 12.1 g/dL (12.0-15.0); Lymphocyte # 0.95 X10^3/ul (0.83-4.51); Lymphocyte % 25.1 % (19-41); Mean Corpuscular Hgb 29.1 pg (27.0-32.0); Mean Corpuscular Volume 88.2 fL (81-99); Mean Platelet Vol. 13.9 fl (6.2-12.0); Monocyte# 0.33 X10^3/uL; Monocyte% 8.7 % (0-10); NRBC Flagged by Analyzer 0 % (0-5); Neutrophil # 2.45 X10^3/uL (2.7-7.7); Neutrophil % 64.5 % (47-70); POSITIVE COUNT YES; RBC Distribution Width SD 48.3 fl (35.1-43.9); Red Blood Count 4.16 M/mm3 (4.2-5.4); White Blood Count 3.8 K/mm3 (4.4-11.0)
[2025-05-15 03:33] LABS: Differential Indicated SCAN CRITERIA MET; Platelet Count 41 K/mm3 (150-450)
[2025-05-15 03:36] LABS: Anion Gap 13 (5-15); BUN 11 mg/dL (4-19); BUN/Creat Ratio 13.4 RATIO (10-20); Calcium,Total 9.2 mg/dL (7.6-11.0); Carbon Dioxide 19.2 mmol/L (21.0-32.0); Chloride 104 mmol/L (98-108); Creatinine, Serum 0.85 mg/dL (0.70-1.20); EST Glomerular Filtration Rate 81 (>60); Estimated Creatinine Clearance 94.59 ml/min (50-250); Glucose 235 mg/dL (70-99); Potassium 3.9 mmol/L (3.3-5.1); Sodium Level 136 mmol/L (133-145)
[2025-05-15 03:46] LABS: Mucous, Urine 0 SEEN /hpf (<or=2+); Red Blood Cells-Urine 0 SEEN /hpf (0-5); White Blood Cells 0 SEEN /hpf (0-5)
[2025-05-15 03:50] LABS: Color, Urine Yellow (Yellow); Glucose, Dipstick 100 mg/dl (Normal); Ketone-Dipstick Negative (Negative); Leukocyte Esterase-Dipstick Negative /ul (Negative); Nitrite-Dipstick Negative (Negative); Occult Blood-Urine 10 /ul (Negative); Protein-Dipstick 30 mg/dl (Negative); Urine Bilirubin Dipstick Negative (Negative); Urine Clarity Clear (Clear); Urine Urobilinogen 1 mg/dl (Normal)
[2025-05-15 03:52] VITALS: BP 103/71; PULSE 81; RESP 17; O2SAT 98
[2025-05-15 04:07] VITALS: PULSE 83
[2025-05-15 04:12] LABS: Troponin T High Sensitivity < 6 ng/L (<=14)
[2025-05-15 04:25] LABS: Bacteria 1+ /hpf (None Seen); Squamous Epithelial Cells - UA 0-5 SEEN /hpf (5-10)
[2025-05-15 04:36] LABS: Platelet Estimate MKD DEC (ADEQ)
[2025-05-15 06:08] VITALS: PULSE 86; RESP 17; O2SAT 97
[2025-05-15 06:39] LABS: Troponin T High Sens 2 HR < 6 ng/L (<=14)
[2025-05-15 06:45] VITALS: BP 107/72; PULSE 69; RESP 16; TEMP 36.2; O2SAT 99
== END 2025-05-15 06:46 | disposition home or self-care (01) ==
PROVIDERS: Emergency Provider Emergency Medicine; PCP Nurse Practitioner Family; Visit Provider Emergency Medicine
DX: R07.9 Chest pain, unspecified (principal); R30.0 Dysuria
CPT/HCPCS: 71045; 80048; 81001; 84484; 85025; 93005; 99284; A4216

== ENCOUNTER 2025-06-21 21:21 | Emergency (ER) | payer OTHER, SELFPAY ==
[2025-06-21 21:21] VITALS: BP 123/84; PULSE 96; RESP 16; TEMP 37.9; O2SAT 98; BMI 33.7
[2025-06-21 21:56] LABS: Mucous, Urine 0 SEEN /hpf (<or=2+); Red Blood Cells-Urine 0 SEEN /hpf (0-5)
[2025-06-21 22:05] VITALS: TEMP 37.6
[2025-06-21 22:06] LABS: Color, Urine Yellow (Yellow); Glucose, Dipstick Normal (Normal); Ketone-Dipstick Negative (Negative); Leukocyte Esterase-Dipstick 25 /ul (Negative); Nitrite-Dipstick Negative (Negative); Occult Blood-Urine Negative /ul (Negative); Protein-Dipstick 15 mg/dl (Negative); Specific Gravity, Urine 1.015 (1.002-1.030); Urine Bilirubin Dipstick Negative (Negative)
[2025-06-21 22:15] LABS: Hematocrit 38.0 % (37-47); Hemoglobin 12.9 g/dL (12.0-15.0); Immature Granulocytes Count 0.010 X10^3/uL (0.0-0.0); Mean Corp Hgb Conc 33.9 g/dL (32-36); Mean Corpuscular Volume 86.8 fL (81-99); Mean Platelet Vol. 12.1 fl (6.2-12.0); NRBC Flagged by Analyzer 0 % (0-5); POSITIVE COUNT YES; POSITIVE DIFFERENTIAL YES; RBC Distribution Width CV 14.6 % (11.6-14.6); RBC Distribution Width SD 46.1 fl (35.1-43.9); Red Blood Count 4.38 M/mm3 (4.2-5.4); White Blood Count 3.9 K/mm3 (4.4-11.0)
[2025-06-21 22:34] LABS: Squamous Epithelial Cells - UA 5-10 SEEN /hpf (5-10)
[2025-06-21 22:43] LABS: AST(SGOT) 31 U/L (<=31); Alanine Aminotransfer ALT/SGPT 31 U/L (<=34); Albumin, Serum 4.0 g/dL (3.5-5.0); Alkaline Phosphatase 43 U/L (35-104); Anion Gap 14 (5-15); BUN 10 mg/dL (4-19); BUN/Creat Ratio 10.6 RATIO (10-20); Calcium,Total 8.8 mg/dL (7.6-11.0); Carbon Dioxide 17.7 mmol/L (21.0-32.0); Chloride 102 mmol/L (98-108); Estimated Creatinine Clearance 87.51 ml/min (50-250); Globulin 2.9 g/dL (2.2-4.2); Glucose 139 mg/dL (70-99); Potassium 4.2 mmol/L (3.3-5.1)
--- NOTE | 2025-06-21 22:50 | EX.ED.DYSGE1 ---
HPI History of Present Illness Chief Complaint: Fever Detail of Chief Complaint: Tmax 102.3 ?F, urinary symptoms, aches, intermittent abdominal pain Informant: patient and spouse/S.O. Onset/Context/Timing Onset: Today Context: Sudden Onset Quality: Tmax 102.3 ?F., Burning with urination intermittent lower abdominal pain a Location: Lower abdomen/ Current Severity: Not applicable Maximum Severity: Not applicable Worsened by: Pain with urination Relieved by: Nothing Associated Symptoms Associated Symptoms: Nausea and myalgias Narrative Narrative: Patient is a 55-year-old woman. She has history of alcoholic hepatitis and cirrhosis with history of Warnicke's encephalopathy who presents with temperature of 102.3 ?F today. She was told by her doctor she cannot take Tylenol or ibuprofen because of her alcoholic hepatitis and cirrhosis. Patient denies bruising easily. She does complain of mild headache that is bitemporal. She denies rhinorrhea, congestion postnasal drainage. She denies sore throat. She has a slight cough. The cough is chronic. Cough is nonproductive. She denies ear pain, drainage or decreased hearing. She denies chest discomfort. She does endorse nausea without vomiting or diarrhea. She denies back or flank pain. She has noted no rash. checked her for rash because last time she had elevated temperature was diagnosed with cellulitis. Prior similar symptoms: Yes Recent Illness/Hospitalization: [facility] Medical History Rash History of ulceration Chronic pain Non-smoker Neuropathy Wears glasses Post-menopausal Anxiety Alcohol use Anemia Migraine headache Syncope Gastric reflux Non-smoker History of pain when walking Leg cramps History of edema Cardiology follow-up encounter History of Clostridium difficile infection Splenomegaly Abnormal liver function test Cirrhosis of liver Wernickes encephalopathy Alcoholic hepatitis Home Medications ?Medication ?Instructions ?Recorded ?Last Taken ?Type cholecalciferol (vitamin D3) 125 125 mcg PO DAILY supple 04/04/22 Unknown History mcg (5,000 unit) tablet (Vitamin D3) folic acid 1 mg tablet 1 mg PO DAILY 04/04/22 Unknown History multivitamin 1 cap PO DAILY 04/04/22 Unknown History thiamine HCl (vitamin B1) 100 mg 100 mg PO DAILY 04/04/22 Unknown History tablet (Vitamin B-1) nadolol 20 mg tablet 20 mg PO DAILY see phy #30 tabs 03/11/23 Unknown Rx pantoprazole 40 mg tablet,delayed 40 mg PO DAILY #90 tabs 03/11/23 Unknown Rx release ginkgo biloba 60 mg capsule 60 mg PO DAILY 05/08/23 Unknown History glucosamine 500 1 cap PO DAILY 05/08/23 Unknown History oz-wjwesujkf-nlfuswke comp 400 mg-D3 667 unit-C-Mn cap (Ljupizlkgjh-Snotyaxrjpi-X3(C-manganese)) magnesium 250 mg tablet 250 mg PO DAILY 05/08/23 Unknown History milk thistle 175 mg capsule 175 mg PO DAILY 05/08/23 Unknown History progesterone micronized 100 mg 500 mg PO QHS 05/08/23 Unknown History capsule duloxetine 60 mg capsule,delayed 60 mg PO BID 07/07/23 Unknown History release lactulose 10 gram/15 mL (15 mL) 15 ml PO TID PRN ammonia 07/07/23 Unknown History oral solution citalopram 20 mg tablet 20 mg PO DAILY 07/10/24 Unknown History estradiol 0.01% (0.1 mg/gram) 1 appful vaginal QHS suppl 07/10/24 Unknown History vaginal cream hydroxyzine pamoate 25 mg capsule 25 mg PO BID anxiety 07/10/24 Unknown History methocarbamol 500 mg tablet 500 mg PO TID PRN pain 07/10/24 Unknown History ascorbic acid (vitamin C) 500 mg 500 mg PO DAILY 10/23/24 Unknown History tablet calcium 315 mg (as 1 tab PO DAILY 10/23/24 Unknown History citrate)-vitamin D3 5 mcg (200 unit) tablet (Calcium Citrate + D) cranberry 500 mg capsule 500 mg PO DAILY 10/23/24 Unknown History d-mannose 500 mg capsule (AZO 1,000 mg PO BID 10/23/24 Unknown History D-Mannose) diphenhydramine HCl 25 mg capsule 50 mg PO QHS insom 10/23/24 Unknown History (Benadryl) gabapentin 800 mg tablet 800 mg PO TID 10/23/24 Unknown History testosterone 12.5 mg/1.25 gram per 1 pump transdermal DAILY 10/23/24 Unknown History pump actuation (1%) transdermal gel tizanidine 4 mg capsule 4 mg PO QHS 10/23/24 Unknown History ferrous sulfate 325 mg (65 mg 325 mg PO BID #1 TAB 10/25/24 Unknown Rx iron) tablet aripiprazole 2 mg tablet 2 mg PO DAILY 05/15/25 Unknown History cephalexin 500 mg capsule 500 mg PO Q6 #28 CAPSULES 06/21/25 Unknown Rx Allergy/AdvReac Type Severity Reaction Status Date / Time acetaminophen AdvReac Intermediate LIVER Verified 05/15/25 02:42 ISSUES ibuprofen AdvReac Intermediate LIVER Verified 05/15/25 02:42 ISSUES Family History Mother Dementia Father Diabetes Surgical History History of esophagogastroduodenoscopy (EGD) History of liver biopsy History of tonsillectomy and adenoidectomy Social History household members: spouse Smoking Status: Never smoker alcohol intake: former year quit: 2020 substance use type: does not use ROS ROS ED Constitutional Constitutional ED: Reports chills and fever(s); Denies subjective or sweats Eyes Eyes: Denies blurry vision or change in vision ENT ENT ED: Denies ear pain, rhinorrhea or sore throat Cardiovascular Cardiovascular: Denies chest pain, orthopnea, palpitations or paroxysmal nocturnal dyspnea Respiratory/Chest Respiratory/Chest: Reports cough; Denies dyspnea, dyspnea on exertion, orthopnea or paroxysmal nocturnal dyspnea Gastrointestinal Gastrointestinal: Reports abdominal pain and nausea; Denies constipation, diarrhea, melena or vomiting Genitourinary Genitourinary ED: Reports dysuria; Denies hematuria or urinary frequency Musculoskeletal Musculoskeletal: Reports myalgias; Denies arthralgias Integumentary Denies rash Neurologic Neurologic: Reports headache(s) and weakness; Denies paresthesias Endocrine Endocrinology: Denies cold intolerance or heat intolerance Hematologic/Lymphatic Hematologic/Lymphatic: Reports systems reviewed and no addt'l complaints, except as documented EXAM Physical Exam Const Vital Signs: 06/21/25 21:21 06/21/25 22:05 Temperature 100.3 F H 99.7 F H Temperature Source Temporal Oral Pulse Rate 96 Respiratory Rate 16 Blood Pressure 123/84 H Blood Pressure Mean 97 Pulse Ox 98 Oxygen Delivery Method Room Air Positive well nourished and well developed Constitutional Narrative: BMI is 37.7. Patient is very hard of hearing. Because of her difficulty with hearing some of her responses to the questions do not make sense. When I speak louder she does answer questions properly. She also expands her response that makes things confusing. General Appearance ED: well developed and pallor HEENT Reports moist mucous membranes HEENT Narrative: Head is atraumatic normocephalic. Ears normal. External auditory canals are normal. TMs are normal. Nares patent. Posterior pharynx not erythema or exudate. Uvula midline. No deviation tongue or protrusion. Eyes PERRL and EOMs intact bilaterally General Eye ED: Negative for pale conjunctiva or scleral icterus Neck no lymphadenopathy, supple and no JVD Resp normal respiratory effort and clear to auscultation bilaterally Cardio regular rate, regular rhythm, S1 normal heart sound, S2 normal heart sound and no murmurs GI normal to inspection, nondistended, normoactive bowel sounds, non-tender, non-distended and no masses; Negative for hepatosplenomegaly Back/Spine no CVA tenderness Extremity normal to inspection General Extremety ED: Negative for edema or tenderness General Extremity: Negative for edema Neuro oriented x3 and CN's II-XII intact bilaterally Sensorium / Orientation: alert Motor Exam: strength 5/5 throughout Psych mental status grossly normal Skin no rashes or lesions noted, no wounds and skin turgor normal General Skin Exam: elasticity normal and pallor; Negative for jaundice MDM MDM MDM Narrative Medical decision making narrative: Initially patient denied dysuria. This may have been due to the fact that she did not hear the question. Patient felt much warmer than documented temperature. Nurse was asked to repeat the temperature. Since she has a cough productive will about 8 for pneumonia which she is in the past. Since she now indoor. Competence metabolic panel was obtained to assess for any endorgan dysfunction. CBC to assess white count and if there is any bandemia. Lab Data Attestation: I reviewed the patient's lab results. Lab results narrative: Competence of metabolic panel with slight elevation of glucose at 139 with CO2 of 17.7 and normal anion gap. Urine is positive for protein leukoesterase with 5 WBCs and 2+ bacteria. A urine culture was sent and she was treated with Rocephin in the emergency department. Patient has neutropenia. She has chronic neutropenia. She has chronic thrombocytopenia. In fact she has thrombocytopenia we will treat her urinary tract infection with cephalexin and not Bactrim. Labs: Laboratory Results - last 24 hr 06/21/25 06/21/25 21:50 22:00 WBC 3.9 L RBC 4.38 Hgb 12.9 Hct 38.0 MCV 86.8 MCH 29.5 MCHC 33.9 RDW Std Deviation 46.1 H RDW Coeff of Pepito 14.6 Plt Count 40 L* MPV 12.1 H Immature Gran % (Auto) 0.300 Neut % (Auto) 84.6 H Lymph % (Auto) 8.1 L [place] % (Auto) 6.2 Eos % (Auto) 0.5 Baso % (Auto) 0.3 Absolute Neuts (auto) 3.3 Absolute Lymphs (auto) 0.31 L Nucleated RBC % 0 Sodium 133 Potassium 4.2 Chloride 102 Carbon Dioxide 17.7 L Anion Gap 14 BUN 10 Creatinine 0.93 Estim Creat Clear Calc 87.51 Est GFR (MDRD) Non-Af 73 BUN/Creatinine Ratio 10.6 Glucose 139 H Calcium 8.8 Total Bilirubin 1.23 AST 31 ALT 31 Alkaline Phosphatase 43 Total Protein 7.0 Albumin 4.0 Globulin 2.9 Albumin/Globulin Ratio 1.4 Urine Color Yellow Urine Clarity Clear Urine pH 6.0 Ur Specific Magee 1.015 Urine Protein 15 H Urine Glucose (UA) Normal Urine Ketones Negative Urine Occult Blood Negative Urine Nitrite Negative Urine Bilirubin Negative Urine Urobilinogen Normal Ur Leukocyte Esterase 25 H Urine RBC 0 SEEN Urine WBC 0-5 SEEN Ur Squamous Epith Cells 5-10 SEEN Urine Bacteria 2+ Urine Mucus 0 SEEN Radiography Chest X-Ray - ED: 2 View, Read by ED Physician (There is motion artifact on the lateral. In the emergency room IV by 2333), Unchanged, Normal, Heart, Lungs, Mediastinum, Bony Structures and No Acute Disease Discharge Plan Triage Chief Complaint: Fever ED Provider: Esteban Alston Dx/Rx/DC Orders Clinical Impression: Complicated urinary tract infection, Hx of cirrhosis, Neutropenia, Thrombocytopenia, Fever in adult Instructions: ED Cystitis Female Adult Prescriptions: New cephalexin 500 mg capsule 500 mg PO Q6 Qty: 28 0RF No Action folic acid 1 mg Tablet 1 mg PO DAILY multivitamin Capsule 1 cap PO DAILY thiamine HCl (vitamin B1) [Vitamin B-1] 100 mg Tablet 100 mg PO DAILY cholecalciferol (vitamin D3) [Vitamin D3] 125 mcg (5,000 unit) Tablet 125 mcg PO DAILY magnesium 250 mg Tablet 250 mg PO DAILY ginkgo biloba 60 mg Capsule 60 mg PO DAILY Rx Instructions: give with meal/snack progesterone micronized 100 mg Capsule 500 mg PO QHS milk thistle 175 mg Capsule 175 mg PO DAILY Rx Instructions: give with meal/snack Pmfyftjdxhc-Tofyyg-L6 (C-hung) 500-400-667 mg-mg-unit Capsule 1 cap PO DAILY duloxetine 60 mg capsule,delayed release(DR/EC) 60 mg PO BID lactulose 10 gram/15 mL (15 mL) solution 15 ml PO TID PRN (Reason: ammonia) calcium citrate-vitamin D3 [Calcium Citrate + D] 315 mg-5 mcg (200 unit) tablet 1 tab PO DAILY testosterone 12.5 mg/ 1.25 gram (1 %) gel in metered-dose pump 1 pump transdermal DAILY tizanidine 4 mg capsule 4 mg PO QHS gabapentin 800 mg tablet 800 mg PO TID ascorbic acid (vitamin C) 500 mg tablet 500 mg PO DAILY cranberry 500 mg capsule 500 mg PO DAILY Rx Instructions: administer with a meal AZO D-Mannose 500 mg capsule 1,000 mg PO BID diphenhydramine HCl [Benadryl] 25 mg capsule 50 mg PO QHS ferrous sulfate 325 mg (65 mg iron) tablet 325 mg PO BID Qty: 1 0RF Rx Instructions: OBTAIN OVER THE COUNTER methocarbamol 500 mg tablet 500 mg PO TID PRN (Reason: pain) citalopram 20 mg tablet 20 mg PO DAILY estradiol 0.01 % (0.1 mg/gram) cream 1 appful vaginal QHS hydroxyzine pamoate 25 mg capsule 25 mg PO BID aripiprazole 2 mg tablet 2 mg PO DAILY pantoprazole 40 mg tablet,delayed release (DR/EC) 40 mg PO DAILY Qty: 90 2RF nadolol 20 mg tablet 20 mg PO DAILY Qty: 30 11RF Primary Care Provider: NEGRITA CARLTON Referrals: NEGRITA CARLTON NP-C [Primary Care Provider] - 3-5 Days Print Language: Slovak Disposition Disposition: Home, Self Care
[2025-06-21 23:09] LABS: Differential Indicated SCAN CRITERIA MET; Platelet Count 40 K/mm3 (150-450)
--- NOTE | 2025-06-21 23:10 | ED.RN ---
Dr Alston notified of critical platelet count
--- NOTE | 2025-06-21 23:13 | RAD_ITS ---
PROCEDURE: CHEST PA AND LATERAL 06/21/2025 REASON FOR EXAM: COUGH AND FEVER TECHNIQUE: CHEST PA AND LATERAL COMPARISON: 04/25/2025 FINDINGS: Normal heart size. Elevated right hemidiaphragm. Well inflated lungs. No consolidation, effusion, or pneumothorax. RAD/Chest PA and Lateral IMPRESSION: No acute chest findings. Reading Location: [facility]
[2025-06-21] MEDS: Ceftriaxone 2 GM in 0.9% Normal Saline (50mL MB+) 50 ML IV (23:19)
[2025-06-21 23:21] VITALS: BP 124/75; PULSE 75; RESP 14; O2SAT 98
[2025-06-21 23:47] VITALS: BP 119/76; PULSE 74; RESP 14; TEMP 36.6; O2SAT 97
[2025-06-22 00:28] LABS: Differential Comment SCANNED
== END 2025-06-21 23:49 | disposition home or self-care (01) ==
PROVIDERS: Emergency Provider Emergency Medicine; PCP Nurse Practitioner Family; Visit Provider Emergency Medicine
DX: N39.0 Urinary tract infection, site not specified (principal); K70.30 Alcoholic cirrhosis of liver without ascites; K70.10 Alcoholic hepatitis without ascites; D70.9 Neutropenia, unspecified; D69.6 Thrombocytopenia, unspecified; Z79.899 Other long term (current) drug therapy
CPT/HCPCS: 71046; 80053; 81001; 85025; 87086; 87088; 96365; 99282; A4216; J0696

== ENCOUNTER 2025-09-27 02:13 | Emergency (ER) | payer OTHER, SELFPAY ==
[2025-09-27 02:15] VITALS: BP 143/97; PULSE 74; RESP 20; TEMP 36.4; O2SAT 94; BMI 33.7
--- NOTE | 2025-09-27 02:58 | EX.ED.DYSGE1 ---
HPI History of Present Illness Chief Complaint: General Illness Informant: patient and spouse/S.O. Narrative Narrative: Patient is a 55-year-old female with history of alcoholic cirrhosis and recent diagnosis of type 2 diabetes. She states her hemoglobin A1c was 8.5. Because of this she was started on 850 mg of metformin once a day. She states she was informed that if her blood sugar is above 300 that this is critical and she needs to go directly to the ER. She states that this evening she ate a sugar-free muffin and then later checked her blood sugar and it was 308 which concerned her and therefore she presents for evaluation. [facility] Medical History Diabetes Rash History of ulceration Chronic pain Non-smoker Neuropathy Wears glasses Post-menopausal Anxiety Alcohol use Anemia Migraine headache Syncope Gastric reflux Non-smoker History of pain when walking Leg cramps History of edema Cardiology follow-up encounter History of Clostridium difficile infection Splenomegaly Abnormal liver function test Cirrhosis of liver Wernickes encephalopathy Alcoholic hepatitis Home Medications ?Medication ?Instructions ?Recorded ?Last Taken ?Type cholecalciferol (vitamin D3) 125 125 mcg PO DAILY supple 04/04/22 Unknown History mcg (5,000 unit) tablet (Vitamin D3) folic acid 1 mg tablet 1 mg PO DAILY 04/04/22 Unknown History thiamine HCl (vitamin B1) 100 mg 100 mg PO DAILY 04/04/22 Unknown History tablet (Vitamin B-1) nadolol 20 mg tablet 20 mg PO DAILY see phy #30 tabs 03/11/23 Unknown Rx pantoprazole 40 mg tablet,delayed 40 mg PO DAILY #90 tabs 03/11/23 Unknown Rx release progesterone micronized 100 mg 100 mg PO QHS 05/08/23 Unknown History capsule duloxetine 60 mg capsule,delayed 60 mg PO DAILY 07/07/23 Unknown History release citalopram 20 mg tablet 20 mg PO DAILY 07/10/24 Unknown History hydroxyzine pamoate 25 mg capsule 25 mg PO BID anxiety 07/10/24 Unknown History methocarbamol 500 mg tablet 500 mg PO DAILY PRN PRN pain 07/10/24 Unknown History cranberry 500 mg capsule 500 mg PO DAILY 10/23/24 Unknown History gabapentin 800 mg tablet 800 mg PO TID 10/23/24 Unknown History tizanidine 4 mg capsule 4 mg PO QHS PRN muscle spasticity 10/23/24 Unknown History ferrous sulfate 325 mg (65 mg 325 mg PO BID #1 TAB 10/25/24 Unknown Rx iron) tablet esterified 1 tab PO DAILY 09/27/25 Unknown History estrogens-methyltestosterone 0.625 mg-1.25 mg tablet glipizide 2.5 mg tablet 2.5 mg PO DAILY 30 days #30 tabs 09/27/25 Unknown Rx metformin 850 mg tablet 850 mg PO DAILY 09/27/25 Unknown History solifenacin 10 mg tablet 10 mg PO DAILY 09/27/25 Unknown History trazodone 100 mg tablet 300 mg PO QHS 09/27/25 Unknown History Allergy/AdvReac Type Severity Reaction Status Date / Time acetaminophen AdvReac Intermediate LIVER Verified 05/15/25 02:42 ISSUES ibuprofen AdvReac Intermediate LIVER Verified 05/15/25 02:42 ISSUES Family History Mother Dementia Father Diabetes Surgical History History of esophagogastroduodenoscopy (EGD) History of liver biopsy History of tonsillectomy and adenoidectomy Social History household members: spouse Smoking Status: Never smoker alcohol intake: former year quit: 2020 substance use type: does not use ROS ROS ED Constitutional Constitutional ED: Denies chills or fever(s) ENT ENT ED: Denies sore throat Cardiovascular Cardiovascular: Denies chest pain Respiratory/Chest Respiratory/Chest: Denies cough or dyspnea Gastrointestinal Gastrointestinal: Denies abdominal pain, diarrhea, nausea or vomiting Genitourinary Genitourinary ED: Denies dysuria Musculoskeletal Musculoskeletal: Denies myalgias Integumentary Denies rash Neurologic Neurologic: Denies headache(s) Psychiatric Psychiatric: Reports anxiety Hematologic/Lymphatic Hematologic/Lymphatic: Reports easy bleeding and easy bruising EXAM Physical Exam Const Vital Signs: 09/27/25 02:15 09/27/25 02:19 09/27/25 04:18 Temperature 97.5 F L 98.2 F Temperature Source Oral Pulse Rate 74 70 Respiratory Rate 20 H 18 Respiratory Effort Normal Non-Labored Respiratory Pattern Normal Blood Pressure 143/97 H 132/70 H Blood Pressure Mean 112 90 Pulse Ox 94 98 Oxygen Delivery Method Room Air Positive well nourished, well developed and obese General Appearance ED: well developed; Negative for pallor Nutritional Appearance: obese HEENT Reports dry mucous membranes HEENT Narrative: Normocephalic atraumatic No tongue or lip swelling no oral lesions no airway edema or compromise; no secondary findings in the posterior pharynx to suggest infection Mucous membranes are dry and tacky Mouth ED: Yes dry mucous membranes Mouth: dry mucous membranes Eyes PERRL and EOMs intact bilaterally General Eye ED: Negative for scleral icterus Neck supple and no JVD Resp normal respiratory effort and clear to auscultation bilaterally Cardio regular rate and regular rhythm Rate: other Other Details: Radial and carotid pulses are equal and symmetric GI normal to inspection, nondistended, normoactive bowel sounds, non-tender, non-distended and no masses GI Narrative: Abdomen is soft nontender nondistended with normal active bowel sounds No voluntary guarding or rigidity No pulsatile mass or peritoneal signs No fluid wave noted Auscultation: normoactive bowel sounds Palpation: soft Extremity Extremity Narrative: There is +1 pitting edema to the bilateral lower extremities is equal and symmetric Negative Homans' sign bilaterally Neuro oriented x3, CN's II-XII intact bilaterally and no sensory deficits noted Sensorium / Orientation: alert Motor Exam: strength 5/5 throughout Psych Mood & Affect: anxious Skin no rashes or lesions noted and No skin turgor normal Skin Narrative: Skin turgor is increased Otherwise no secondary findings such as erythema or warmth to suggest infection and no overlying abrasions or ecchymosis to suggest trauma General Skin Exam: Negative for jaundice or pallor MDM MDM MDM Narrative Medical decision making narrative: Patient arrived to the ER slightly hypertensive but overall stable vitals. She reported that her blood sugar was 308 which concerned her as she was told by urgent care that if her blood sugar crosses 300 this could be critical. The patient most likely has elevated blood sugar because she is a type II diabetic and she is only on metformin and this evening she ate a sugar-free muffin with the elevated carbohydrates this could have spiked her blood sugar. However in order to ensure that she is not having elevated blood sugar from DKA or HHS or potential secondary infection I do like to perform basic laboratory studies and a urine sample. Patient is urine sample shows +2 bacteria but there is 10-25 skin cells no white blood cells no leukocyte esterase and it is nitrite negative and therefore this is most likely contamination I do not feel the need for antibiotic. Her platelet count is low at 44 but this is secondary to her underlying chronic conditions and chart review reveals that is at her baseline. Her anion gap is normal and her beta-hydroxybutyrate is 0 going against DKA. Her serum osmolality is 287 going against HHS. Her MELD score is 8 going against any high risk mortality. She reported a value of 308 at home and even before given medication/IV fluids her blood sugar trended down to 273. Therefore at this time she is receiving IV fluids which will reduce the blood sugar further she does not have DKA or HHS or secondary findings of infection to cause hyperglycemia. I do feel that she warrants tighter glucose control than the metformin can provide. Therefore I will provide glipizide at 2.5 mg daily as this is the recommended starting dose for individuals with hepatic impairment. This should help control her blood sugar in a tighter fashion. However at this time without signs of DKA or HHS there is no need for admission and she is otherwise safe for discharge History & Record Review Discussion w/independent historian: Patient and Significant other Additional record(s) reviewed:: Prior labs Lab Data Attestation: I reviewed the patient's lab results. Labs: Laboratory Results - last 24 hr 09/27/25 09/27/25 03:06 03:10 WBC 2.8 L RBC 4.28 Hgb 12.3 Hct 37.6 MCV 87.9 MCH 28.7 MCHC 32.7 RDW Std Deviation 46.9 H RDW Coeff of [place] 14.6 Plt Count 44 L* MPV 12.7 H Immature Gran % (Auto) 0.700 Neut % (Auto) 56.6 Lymph % (Auto) 31.0 [place] % (Auto) 9.6 Eos % (Auto) 1.4 Baso % (Auto) 0.7 Absolute Neuts (auto) 1.6 L Absolute Lymphs (auto) 0.87 Nucleated RBC % 0 PT 15.4 H INR 1.2 Sodium 134 Potassium 3.7 Chloride 104 Carbon Dioxide 17.8 L Anion Gap 12 BUN 10 Creatinine 0.85 Estim Creat Clear Calc 95.81 Est GFR (MDRD) Non-Af 81 BUN/Creatinine Ratio 12.1 Glucose 273 H Calcium 8.8 Total Bilirubin 0.81 Direct Bilirubin 0.34 H AST 23 ALT 21 Alkaline Phosphatase 45 Total Protein 6.8 Albumin 3.9 Globulin 2.9 b-Hydroxybutyric mmol/L 0.0 Urine Color Yellow Urine Clarity Sl. 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 Dx/Rx/DC Orders Clinical Impression: Hyperglycemia, Thrombocytopenia, Type 2 diabetes mellitus, Cirrhosis of liver Instructions: Diabetes: Caring for Your Body, Diabetes- Measuring Glucose at Home Prescriptions: New glipizide 2.5 mg tablet 2.5 mg PO DAILY 30 Days Qty: 30 1RF No Action folic acid 1 mg Tablet 1 mg PO DAILY thiamine HCl (vitamin B1) [Vitamin B-1] 100 mg Tablet 100 mg PO DAILY cholecalciferol (vitamin D3) [Vitamin D3] 125 mcg (5,000 unit) Tablet 125 mcg PO DAILY progesterone micronized 100 mg Capsule 100 mg PO QHS duloxetine 60 mg capsule,delayed release(DR/EC) 60 mg PO DAILY tizanidine 4 mg capsule 4 mg PO QHS PRN (Reason: muscle spasticity) gabapentin 800 mg tablet 800 mg PO TID cranberry 500 mg capsule 500 mg PO DAILY Rx Instructions: administer with a meal ferrous sulfate 325 mg (65 mg iron) tablet 325 mg PO BID Qty: 1 0RF Rx Instructions: OBTAIN OVER THE COUNTER metformin 850 mg tablet 850 mg PO DAILY trazodone 100 mg tablet 300 mg PO QHS solifenacin 10 mg tablet 10 mg PO DAILY estrogens-methyltestosterone 0.625-1.25 mg tablet 1 tab PO DAILY methocarbamol 500 mg tablet 500 mg PO DAILY PRN PRN (Reason: pain) citalopram 20 mg tablet 20 mg PO DAILY hydroxyzine pamoate 25 mg capsule 25 mg PO BID pantoprazole 40 mg tablet,delayed release (DR/EC) 40 mg PO DAILY Qty: 90 2RF nadolol 20 mg tablet 20 mg PO DAILY Qty: 30 11RF Primary Care Provider: Bruce Powell Referrals: Bruce Powell MD [Primary Care Provider, Family Practice] Activity Restrictions/Additional Instructions: Please add the glipizide to the metformin you are already taking in order to obtain tighter blood sugar control. Follow-up with your family doctor for repeat evaluation and to discuss medication adjustments. Return to the ER should you have any further concerns Print Language: Portuguese Disposition Disposition: Home, Self Care Discharge Date/Time: 09/27/25 04:19
[2025-09-27] MEDS: 0.9% Normal Saline (1000mL) 1,000 ML 999 ML IV (03:09)
[2025-09-27 03:12] LABS: Mucous, Urine 0 SEEN /hpf (<or=2+); Red Blood Cells-Urine 0 SEEN /hpf (0-5)
[2025-09-27 03:13] LABS: Color, Urine Yellow (Yellow); Glucose, Dipstick 100 mg/dl (Normal); Ketone-Dipstick Negative (Negative); Leukocyte Esterase-Dipstick Negative /ul (Negative); Nitrite-Dipstick Negative (Negative); Occult Blood-Urine Negative /ul (Negative); Protein-Dipstick 15 mg/dl (Negative); Specific Gravity, Urine 1.015 (1.002-1.030); Urine Bilirubin Dipstick Negative (Negative)
[2025-09-27 03:19] LABS: Hematocrit 37.6 % (37-47); Hemoglobin 12.3 g/dL (12.0-15.0); Immature Granulocytes Count 0.020 X10^3/uL (0.0-0.0); Mean Corp Hgb Conc 32.7 g/dL (32-36); Mean Corpuscular Volume 87.9 fL (81-99); Mean Platelet Vol. 12.7 fl (6.2-12.0); NRBC Flagged by Analyzer 0 % (0-5); POSITIVE COUNT YES; RBC Distribution Width CV 14.6 % (11.6-14.6); RBC Distribution Width SD 46.9 fl (35.1-43.9); Red Blood Count 4.28 M/mm3 (4.2-5.4); White Blood Count 2.8 K/mm3 (4.4-11.0)
[2025-09-27 03:29] LABS: Platelet Count 44 K/mm3 (150-450)
[2025-09-27 03:34] LABS: Squamous Epithelial Cells - UA 10-25 SEEN /hpf (5-10)
[2025-09-27 03:37] LABS: Prothrombin Time (Protime)PT. 15.4 SECONDS (11.7-14.9)
[2025-09-27 03:43] LABS: AST(SGOT) 23 U/L (<=31); Alanine Aminotransfer ALT/SGPT 21 U/L (<=34); Albumin, Serum 3.9 g/dL (3.5-5.0); Alkaline Phosphatase 45 U/L (35-104); Anion Gap 12 (5-15); BETA-HYDROXYBUTYRATE 0.0 mmol/L (0.0-0.3); BUN 10 mg/dL (4-19); BUN/Creat Ratio 12.1 RATIO (10-20); Bilirubin, Direct 0.34 mg/dL (0.00-0.30); Calcium,Total 8.8 mg/dL (7.6-11.0); Carbon Dioxide 17.8 mmol/L (21.0-32.0); Chloride 104 mmol/L (98-108); Estimated Creatinine Clearance 95.81 ml/min (50-250); Globulin 2.9 g/dL (2.2-4.2); Glucose 273 mg/dL (70-99); Potassium 3.7 mmol/L (3.3-5.1)
[2025-09-27 04:18] VITALS: BP 132/70; PULSE 70; RESP 18; TEMP 36.8; O2SAT 98
== END 2025-09-27 04:19 | disposition home or self-care (01) ==
PROVIDERS: Emergency Provider Emergency Medicine; PCP Student in an Organized Health Care Education/Training Program; Visit Provider Emergency Medicine
DX: E11.65 Type 2 diabetes mellitus with hyperglycemia (principal); K70.30 Alcoholic cirrhosis of liver without ascites; E11.40 Type 2 diabetes mellitus with diabetic neuropathy, unspecified; D69.6 Thrombocytopenia, unspecified; E66.9 Obesity, unspecified; Z68.33 Body mass index [BMI] 33.0-33.9, adult; Z79.84 Long term (current) use of oral hypoglycemic drugs
CPT/HCPCS: 80048; 80076; 81001; 82010; 85025; 85610; 96360; 99282; A4216